=== PATIENT | female | born 1995 | race Caucasian/White ===

== ENCOUNTER 2024-03-29 06:46 | Emergency (ER) | payer OTHER, SELFPAY ==
[2024-03-29] VITALS (26 sets, daily range): BP systolic 102–117; BP diastolic 70–76; PULSE 64–96; TEMP 36.3–36.7; O2SAT 94–100; BMI 24.8
--- NOTE | 2024-03-29 07:11 | CT_ITS ---
The [address] [address] Patient Name: ALONDRA BEAVER MRN: [id number] date: 1995 Sex: F Assigned Patient Location: ER Current Patient Location: .[facility] Accession/Order Number: [id number] Exam Date: 03/29/2024 07:58 Report Date: 03/29/2024 08:37 At the request of: SANDRA BADILLO Procedure: CT head/brain wo con EXAM: CT head/brain wo con HISTORY: Dizziness. Patient did not hit head when she fell. COMPARISON: None. CT head without contrast CLINICAL: dizziness . TECHNIQUE: Contiguous transaxial images were obtained from skull base to vertex without administration of intravenous contrast. Dose reduction: mA and/or kV are were adjusted by automated exposure control software based upon patients height and weight. FINDINGS: There is no focal scalp soft tissue swelling or acute calvarial fracture. The visualized globes and orbits are grossly normal. Visualized paranasal sinuses are clear. Bilateral mastoid air cells are clear. The ventricles and sulci are normal and symmetric bilaterally. There is no intraparenchymal hemorrhage, extraaxial fluid collection, mass lesion, or acute large territory ischemia by noncontrast CT. CT/CT head/brain wo con IMPRESSION: 1. No acute intracranial abnormality. If the patient has a focal neurologic deficit or there is clinical suspicion for acute cerebrovascular accident, brain MRI would be recommended for further evaluation. Electronically authenticated by: ALANA VASQUEZ Date: 03/29/2024 08:37
--- NOTE | 2024-03-29 07:11 | ECG_ITS ---
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
[2024-03-29 07:32] LABS: Basophils Percent Auto 0.3 % (0.2-2.0); Eosinophils Absolute Auto 0.1 10^3/uL (0.0-0.7); Eosinophils Percent Auto 1.1 % (0.9-7.0); Hematocrit 42.5 % (36.0-48.0); Hemoglobin 14.6 g/dL (12.0-16.0); Immature Granulocytes Abs Auto 0.03 10^3/uL (0.00-0.03); Immature Granulocytes Pct Auto 0.3 % (0.0-0.5); Lymphocytes Absolute Auto 2.2 10^3/uL (1.2-3.8); Lymphocytes Percent Auto 23.3 % (20.5-60.0); Mean Corpuscular HGB Conc 34.4 g/dL (29.9-35.2); Mean Corpuscular Hemoglobin 30.5 pg (26.7-34.0); Mean Corpuscular Volume 88.7 fL (81.0-99.0); Mean Platelet Volume 10.1 fL (9.5-13.5); Monocytes Absolute Auto 0.5 10^3/uL (0.3-0.8); Monocytes Percent Auto 5.3 % (1.7-12.0); Neutrophils Absolute Auto 6.5 10^3/uL (1.4-6.5); Neutrophils Percent Auto 69.7 % (43.0-75.0); Platelet Count 294 10^3/uL (150-450); Red Blood Count 4.79 10^6/uL (4.20-5.40); White Blood Count 9.4 10^3/uL (4.0-11.0)
[2024-03-29] MEDS: DIAZEPAM 10 MG/2 ML SYRINGE 2 MG IV ×2 (07:32→08:40)
[2024-03-29 07:42] LABS: HCG Qualitative NEGATIVE (NEGATIVE); Internal Control Within Normal Limits
[2024-03-29 07:57] LABS: Alanine Aminotransferase 26 U/L (14-59); Albumin Globulin Ratio 1.1; Albumin Level 3.9 g/dL (3.4-5.0); Alkaline Phosphatase 72 U/L (46-116); Anion Gap 20.1; Aspartate Amino Transferase 26 U/L (15-37); BUN Creatinine Ratio 22.1; Bilirubin Total 0.7 mg/dL (0.2-1.0); Calcium 8.8 mg/dL (8.5-10.1); Carbon Dioxide 21.2 mmol/L (21.0-32.0); Chloride 102 mmol/L (98-107); Estimated GFR (African America >60 (>=60 mL/min/1.73m^2); Estimated GFR (Non-African Ame >60 (>=60 mL/min/1.73m^2); Globulin 3.5 g/dL; Glucose 172 mg/dL (74-106); Magnesium 1.9 mg/dL (1.8-2.4); Sodium 139 mmol/L (136-145); Total Protein 7.4 g/dL (6.4-8.2)
[2024-03-29] MEDS: MECLIZINE HCL 12.5 MG TABLET 25 MG PO (08:08)
--- NOTE | 2024-03-29 08:17 | ED_ITS ---
HPI HPI - General Adult General Chief complaint: Dizziness Stated complaint: dizziness vomitting Time Seen by Provider: 03/29/24 07:06 Source: patient Mode of arrival: walk-in Limitations: no limitations History of Present Illness HPI narrative: Patient presents to ED complaining of dizziness. She said she woke up about 5:00 and got out of bed went to the bathroom and when she was walking back from the bathroom she got severely dizzy. She tried to sit on the bed but fell because she said she felt so off balance and dizzy that it caused her to fall. She denies hitting her head or any pain from the fall. She said she has never had vertigo before but the room is spinning and she feels very off balance. She said it is difficult to have her eyes open because things are moving but she also feels super dizzy if her eyes are closed. She did have a lot of vomiting with the dizziness. She was given Zofran on arrival here. She denies but it has been about a month since her period. She denies any sinus pressure pain no fevers no headache no vision changes. She has never had anything like this before. No family history of vertigo. No chest pain or breath. Related Data Previous Rx's ?Medication ?Instructions ?Recorded diazepam 2 mg tablet (Valium) 2 mg PO BID PRN dizziness or 03/29/24 vertigo #14 tabs meclizine 25 mg tablet 25 mg PO BID PRN dizziness #20 tabs 03/29/24 ondansetron 4 mg disintegrating 4 mg PO DAILY PRN nausea and 03/29/24 tablet vomiting #15 tabs Allergies Allergy/AdvReac Type Severity Reaction Status Date / Time No Known Drug Allergies Allergy Verified 03/29/24 06:54 Opioid HPI Opioid Management Most Recent Opioid Data: No Data to Display Review of Systems ROS Status of ROS 10 or more systems reviewed and unremark able except as noted in history and below Exam Narrative Exam Narrative: Time Seen: [] Vital Signs: [Per nurse's notes.] General: [Alert] dizziness Skin: [Warm, dry, no rash.] Head: [Normocephalic, atraumatic.] Neck: [Supple, trachea midline.] Eye: [Pupils are equal, round and reactive to light, extraocular movements are intact, normal conjunctiva.] Ears, nose, mouth and throat: oral mucosa moist. TMs clear bilaterally Cardiovascular: [Regular rate and rhythm, no murmur.] Respiratory: [Lungs are clear to auscultation, respirations are non-labored, breath sounds are equal.] Chest wall: [No tenderness, no deformity.] Gastrointestinal: [Soft, nontender, non distended, normal bowel sounds.] MSK: 5 out of 5 muscle strength x 4 extremities no calf pain or edema Lymphatics: [No lymphadenopathy.] Psychiatric: [Cooperative, appropriate mood & affect.] Neurological: [Alert and oriented to person, place, time, and situation, no focal neurological deficit observed.] Constitutional Vital Signs, click to edit/add: Last Vital Signs Temp 97.3 F L 03/29/24 06:49 Pulse 77 03/29/24 10:30 Resp 16 03/29/24 10:30 BP 117/71 03/29/24 09:32 Pulse Ox 100 03/29/24 10:30 O2 Del Method Room Air 03/29/24 06:49 Course Vital Signs Vital signs: Vital Signs Temperature 97.3 F L 03/29/24 06:49 Pulse Rate 64 03/29/24 06:49 Respiratory Rate 14 03/29/24 06:49 Blood Pressure 102/70 03/29/24 06:49 Pulse Oximetry 100 03/29/24 06:49 Oxygen Delivery Method Room Air 03/29/24 06:49 Temperature 97.3 F L 03/29/24 06:49 Pulse Rate 77 03/29/24 10:30 Respiratory Rate 16 03/29/24 10:30 Blood Pressure 117/71 03/29/24 09:32 Pulse Oximetry 100 03/29/24 10:30 Oxygen Delivery Method Room Air 03/29/24 06:49 Medical Decision Making MDM Narrative Medical decision making narrative: Patient was given Zofran and was still having nausea and dizziness. She was also given meclizine. She was still very dizzy and could not move or open her eyes. She then was given 2 mg of Valium IV. She said that helped slightly at least get her to CAT scan but after CAT scan she still was very dizzy. I gave her 2 more milligrams of Valium IV and started some IV fluids. I was going to admit her because she was unable to even move her head or open her eyes but she fell asleep after the Valium and when she woke up she was feeling a lot better. She was able to sit to the edge of the bed and walk around the room slowly. She said she still felt a little bit off but much better and was able to actually move around and open her eyes. She got a little bit dizzy again after standing but is still much better than when she came in this morning. I will send her home with Valium meclizine and Zofran. She does have help at home with from her and will be able to rest. She prefers to try and go home. Return to ED if worsening symptoms otherwise follow-up with your family doctor Differential Diagnosis Differential Diagnosis: Vertigo, intracranial lesion, intracranial hemorrhage, electrolyte abnormal Lab Data Lab results reviewed: Yes I reviewed the patient's lab results Labs: Lab Results 03/29/24 Range/Units 07:05 WBC 9.4 (4.0-11.0) 10^3/uL RBC 4.79 (4.20-5.40) 10^6/uL Hgb 14.6 (12.0-16.0) g/dL Hct 42.5 (36.0-48.0) % MCV 88.7 (81.0-99.0) fL MCH 30.5 (26.7-34.0) pg MCHC 34.4 (29.9-35.2) g/dL RDW 12.0 (11.0-15.0) % Plt Count 294 (150-450) 10^3/uL MPV 10.1 (9.5-13.5) fL Neut % (Auto) 69.7 (43.0-75.0) % Lymph % (Auto) 23.3 (20.5-60.0) % Calhoun % (Auto) 5.3 (1.7-12.0) % Eos % (Auto) 1.1 (0.9-7.0) % Baso % (Auto) 0.3 (0.2-2.0) % Neut # (Auto) 6.5 (1.4-6.5) 10^3/uL Lymph # (Auto) 2.2 (1.2-3.8) 10^3/uL Calhoun # (Auto) 0.5 (0.3-0.8) 10^3/uL Eos # (Auto) 0.1 (0.0-0.7) 10^3/uL Baso # (Auto) 0.0 (0.0-0.1) 10^3/uL Abs Immat Gran (auto) 0.03 (0.00-0.03) 10^3/uL Imm/Tot Granulo (auto) 0.3 (0.0-0.5) % Sodium 139 (136-145) mmol/L Potassium 4.3 (3.5-5.1) mmol/L Chloride 102 (98-107) mmol/L Carbon Dioxide 21.2 (21.0-32.0) mmol/L Anion Gap 20.1 BUN 21.0 H (7.0-18.0) mg/dL Creatinine 0.95 (0.55-1.02) mg/dL Est GFR ( Amer) >60 (>=60 mL/min/1.73m^2) Est GFR (Non-Af Amer) >60 (>=60 mL/min/1.73m^2) BUN/Creatinine Ratio 22.1 Glucose 172 H (74-106) mg/dL Calcium 8.8 (8.5-10.1) mg/dL Magnesium 1.9 (1.8-2.4) mg/dL Total Bilirubin 0.7 (0.2-1.0) mg/dL AST 26 (15-37) U/L ALT 26 (14-59) U/L Alkaline Phosphatase 72 (46-116) U/L Total Protein 7.4 (6.4-8.2) g/dL Albumin 3.9 (3.4-5.0) g/dL Globulin 3.5 g/dL Albumin/Globulin Ratio 1.1 Serum HCG, Qual Negative (NEGATIVE) Imaging Data CT scan - head: Radiologist's impression: ITS Impressions Head CT 03/29/24 07:11 IMPRESSION: 1. No acute intracranial abnormality. If the patient has a focal neurologic deficit or there is clinical suspicion for acute cerebrovascular accident, brain MRI would be recommended for further evaluation. Electronically authenticated by: ALANA VASQUEZ Date: 03/29/2024 08:37 ECG Data Attestation: I personally reviewed and interpreted this ECG as follows: Interpretation: EKG INTERPRETATION Time: [] 751 Rate: [] 61 Rhythm: _ [] Normal sinus rhythm ST segments: _ [] No acute ST elevation or depression T waves: _ [] Ectopy: _ [] P wave/NH interval: _ [] QRS interval: _ [] QT interval: _ [] Comparison: _ [] Comparison EKG date: [] Performed by: [self] Discharge Plan Discharge Chief Complaint: Dizziness Clinical Impression: Benign paroxysmal positional vertigo Patient Disposition: Home, Self-Care Time of Disposition Decision: 10:53 Condition: Good Mode of Transportation: Private Vehicle Prescriptions / Home Meds: New diazepam [Valium] 2 mg tablet 2 mg PO BID PRN (Reason: dizziness or vertigo) Qty: 14 0RF ondansetron 4 mg tablet,disintegrating 4 mg PO DAILY PRN (Reason: nausea and vomiting) Qty: 15 0RF meclizine 25 mg tablet 25 mg PO BID PRN (Reason: dizziness) Qty: 20 0RF Print Language: Cymraes Instructions: Vertigo (ED) Referrals: Zita Alanis MD [Primary Care Provider] - 1 week
[2024-03-29 09:08] LABS: Potassium 4.3 mmol/L (3.5-5.1)
[2024-03-29] MEDS: 0.9 % SODIUM CHLORIDE 1,000 ML 1000 ML IV (09:10)
== END 2024-03-29 12:31 | disposition home or self-care (01) ==
PROVIDERS: Emergency Provider Emergency Medicine; PCP Family Medicine
DX: H81.10 Benign paroxysmal vertigo, unspecified ear (principal); R11.0 Nausea
CPT/HCPCS: 36415; 70450; 80053; 83735; 84703; 85025; 93005; 96361; 96374; 96376; 99285; J3360

== ENCOUNTER 2024-08-29 13:36 | Outpatient (OUT) | payer OTHER, SELFPAY ==
[2024-08-29 14:19] LABS: BOX Test Reference Lab UNITY; BOX Test Sent Out UNITY
[2024-08-29 15:14] LABS: Estimated Average Glucose 105 mg/dL; Glycohemoglobin A1C 5.3 % (4.5-6.2)
== END 2024-08-29 13:37 | disposition home or self-care (01) ==
LOC: LAB 13:39
PROVIDERS: PCP Family Medicine; Visit Provider Obstetrics & Gynecology
DX: Z34.90 Encounter for supervision of normal pregnancy, unspecified, unspecified trimester (principal); Z36.0 Encounter for antenatal screening for chromosomal anomalies
CPT/HCPCS: 36415; 83036

== ENCOUNTER 2024-09-28 16:15 | Outpatient (OUT) | payer OTHER, SELFPAY ==
--- OUTSIDE RECORDS SUMMARY | 2024-09-28 15:08 | XMS_ITS ---
Author Name Auto Generated Organization OH[facility] Care Team Providers Care Lead Furnace Operator Name Role Phone Zita Alanis Attending Unavailable Zita Alanis Primary Care Unavailable ATTILA BUNDY Attending Unavailable ROCIO VINES Attending Unavailable LUIS GALVAN Attending Unavailable ATTILA BUNDY Attending Unavailable PROBLEMS No Problem Records Found PROCEDURES No Procedure Records Found RESULTS US OB < 14 WEEKS EARLY Observed: 025 1:43 PM Status: F Source: [facility] EPIC Order Comment: US OB Patient's last menstrual period was 05/09/2024 (exact date). EXAM: US OB < 14 WEEKS EARLY HISTORY: Dating. COMPARISON: None available. TECHNIQUE: Two-dimensional transabdominal grayscale ultrasound imaging of the pelvis was performed. Transvaginal ultrasound was not performed. Color Doppler evaluation of the ovaries was also performed. FINDINGS: The uterus demonstrates a normal homogeneous echotexture. The cervical os is closed. The right ovary measures 3.3 x 2.0 x 2.9 cm and demonstrates a normal echotexture. There is normal color Doppler flow. The left ovary measures 4.2 x 2.4 x 3.0 cm and demonstrates a normal echotexture. There is normal color Doppler flow. No fluid is present within the cul-de-sac. There is a single, live intrauterine gestation identified with a heart rate of 173 beats per minute and a crown-rump length measurement of 4.6 cm, correlating to a gestational age of 11 weeks 3 days (+/- 7 days). There is no subchorionic hemorrhage visualized. A yolk sac is not visualized. IMPRESSION: 1. Single, live intrauterine gestation 13 weeks, 2 days by LMP. Today's ultrasound measurements correlate with a gestational age of 11 weeks 3 days (+/- 7 days). VALENTIN by today's ultrasound is 02/26/2025. 2. Normal color Doppler evaluation of the bilateral ovaries. Electronically Signed:Electronically signed by LEONIDAS NICOLE II, MD, PHD at 11-Aug-2024 08:40:37 AM [facility] OUTSIDE RECORDS Observed: 03/29/2024 10:45 AM Status: F Source: [facility] [id number]#1.00OTGTIFF OUTSIDE RECORDS Observed: 03/29/2024 10:41 AM Status: F Source: [facility] [id number]#1.00OTGTIFF CMP STANDARD Collected: 8:16 AM Status: F Source: [facility] TYPE CODE TESTS RESULT OUT OF RANGE REFERENCE UNITS LAB 5152207(LOINC) A/G Ratio 1.4 1.4-2.6 LAB 5142347(LOINC) Anion Gap 10.8 5.0-19.0 mmol/L LAB 9617035(LOINC) BUN/Creat Ratio 19.7 High 4.6-16.2 LAB 5571103(LOINC) Globulin 3.1 1.5-4.3 gm/dL LAB 4887634(LOINC) Osmolality 267 Unknown mOsm/L LAB 9850026(LOINC) eGFR AA >60 Unknown mL/min/1. 73m2 LAB 9847156([facility]) Albumin Level 4.4 3.5-5.0 gm/ dL LAB 8128550([facility]) Alk Phos 67 32-91 IU/L LAB 7896115([facility]) ALT/SGPT 19.0 14.0-54.0 IU/L LAB 8600644([facility]) AST/SGOT 21 15-41 IU/L LAB 3605547([facility]) Bili Total 0.7 0.3-1.2 mg/dL LAB 3145129([facility]) BUN 17 8-26 mg/dL LAB 2256943([facility]) Calcium Level 8.9 8.9-10.3 mg /dL LAB 6824671([facility]) CO2 26 21-32 mmol/L LAB 1245270([facility]) Chloride Level 100 Low 101-111 mm ol/L LAB 7757765([facility]) Creatinine Level 0.86 0.60-1.30 mg/dL LAB 6150399([facility]) Glucose Level 90.0 74.0-118.0 mg/dL LAB 2618210([facility]) Potassium Level 3.8 3.6-5.1 mmol/L LAB 6586728([facility]) Protein Total 7.5 6.5-8.1 gm/ dL LAB 0463847([facility]) Sodium Level 133.0 Low 136.0-144.0 mmol/L LAB 6930667([facility]) eGFR Non AA >60 Unknown mL/mi n/1. 73m2 Performed By: #### [id number] 5, [id number], 1304922, 4573150, 8602592, 2671217, 3981804 #### [facility] (DEFAULT) [address] [place], [place] [address] LIPID PANEL STANDARD Collected: 02/03/2024 8:16 AM S tatus: F Source: [facility] TYPE CODE TESTS RESULT OUT OF RANGE REFERENCE UNITS LAB 0275467([facility]) LDL 144 High 1-100 mg/dL LAB 87862322([facility]) VLDL. 6 5-40 mg/dL LAB 7607831([facility]) Chol/HDL Ratio 3.3 0.0-4.5 LAB 6997792([facility]) HDL 64 40-71 mg/dL LAB 4031123(LOINC) Trig 28.0 0.0-150.0 mg/dL LAB 9667190(LOINC) Cholesterol 214.0 High 66.0-200.0 mg /dL Performed By: #### [id number] 5, [id number], 6893940, 1175638, 3564192, 1449292, 6022553 #### [facility] (DEFAULT) [address] [place] [address] GGT Collected: 4 8:16 AM Status: F Source: [facility] TYPE CODE TESTS RESULT OUT OF RANGE REFERENCE UNITS LAB 5195387(LOINC) GGT 20.0 7.0-50.0 IU/L Performed By: #### [id number] 5, [id number], 8318503, 8807199, 1237160, 4553621, 4079514 #### [facility] (DEFAULT) [address] [place] [address] LDH Collected: 4 8:16 AM Status: F Source: [facility] TYPE CODE TESTS RESULT OUT OF RANGE REFERENCE UNITS LAB 0277578(LOINC) LDH 126.0 98.0-192.0 IU/L Performed By: #### [id number] 5, [id number], 2465520, 9845752, 3831043, 4747840, 4115827 #### [facility] (DEFAULT) [address] [place] [address] PHOS Collected: 4 8:16 AM Status: F Source: [facility] TYPE CODE TESTS RESULT OUT OF RANGE REFERENCE UNITS LAB 3059107(LOINC) Phos 2.9 2.5-4.6 mg/dL Performed By: #### [id number] 5, [id number], 7763930, 0479957, 2671693, 8853515, 1797088 #### [facility] (DEFAULT) [address] [place] [address] URIC ACID Collected: 4 8:16 AM Status: F Source: [facility] TYPE CODE TESTS RESULT OUT OF RANGE REFERENCE UNITS LAB 9639857(LOINC) Uric Acid 4.0 2.6-8.0 mg/dL Performed By: #### [id number] 5, 1194235140, 4956282, 7182949, 3649091, 3608877, 0718822 #### [facility] (DEFAULT) [address] [place] [address] IRON LEVEL Collected: 4 8:16 AM Status: F Source: [facility] TYPE CODE TESTS RESULT OUT OF RANGE REFERENCE UNITS LAB 6728713(LOINC) Iron Level 93.0 28.0-170.0 mcg /dL Performed By: #### [id number] 5, 6110895077, 1548060, 7744323, 8204947, 4374465, 1511364 #### [facility] (DEFAULT) [address] [place] [address] CONSENT FORMS Observed: 01/24/2024 8:00 AM Status: P Source: [facility] [id number]#1.00OTGTIFF ALLERGIES DATE TYPE / CODE NAME / CODE REACTION SEVERITY SOURCE Drug/235582986(SNOMED CT) No known allergies [facility] ENCOUNTERS ADMIT/DISCHARGE ACCOUNT NUMBER ADMITTING ENCOUNTER CLASS LOCATION SOURCE 09/28/2024/ 5 [id number] Ambulatory Building:[facility] 08/29/2024/ 5 [id number] Ambulatory Building:[facility] 08/10/2024/ 5 [id number] Ambulatory Building:[facility] 08/10/2024/ 5 [id number] Ambulatory Building:[facility] 07/11/2024/ 5 [id number] Ambulatory Building:N[facility] 05/16/2024/ 5 [id number] Ambulatory Building:[facility] 03/30/2024/ 4 [id number] [facility] Room 2 [facility] 02/08/2024/ 4 [id number] Ambulatory Building:[facility] EPIC 01/24/2024/ 4 [id number] [facility] PAYERS ENCOUNTER GUARANTOR PAYER SUBSCRIBER SOURCE 09/28/2024 ALONDRA JOEB: [address] [address]Rri: (HP) Primary Insurance:MEDICAL MUTUALPolicy Number: [id number] e Date:2023-11-08 [facility]: [id number] [address] [address] [facility] EPIC 08/29/2024 ALONDRA HEATHB: [address] [address]Mxm: (HP) Primary Insurance:MEDICAL MUTUALPolicy Number: [id number] e Date:2023-11-08 ALONDRA HEATHB: [id number] [address] [address] [facility] EPIC 08/10/2024 ALONDRA HEATHB: [address] [address]Wxo: (HP) Primary Insurance:MEDICAL MUTUALPolicy Number: [id number] e Date:2023-11-08 ALONDRA HEATHB: [id number] [address] [address] [facility] EPIC 08/10/2024 ALONDRA SARANYADOB: [address] [address]Zip: (HP) Primary Insurance:MEDICAL MUTUALPolicy Number: [id number] e Date:2023-11-08 ALONDRABrooklyn BEAVERB: [id number] [address] [address] [facility] EPIC 07/11/2024 ALONDRA JOEB: [address] [address]Rat: (HP) Primary Insurance:MEDICAL MUTUALPolicy Number: [id number] e Date:2023-11-08 [facility] [id number] [address] [address] [facility] EPIC 05/16/2024 [facility]: [address] [address]Lai: () Primary Insurance:MEDICAL MUTUALPolicy Number: [id number] e Date:2023-11-08 AL[facility]DRA [facility]AL[facility]ITALB: [id number] [facility] [address], [place] [address] [facility] EPIC 03/30/2024 [facility]: [address] [address]Jjd: () Primary Insurance:MEDICAL MUTUALPolicy Number: [id number] e Date:6054-17-11Khvl Name:CommercialPO BOX [address], [place] [address]ZQ: [facility]: [id number] [facility] [address], [place] [address]Unf: () [facility] 02/08/2024 [facility]: [address] [address]Wka: () Primary Insurance:CIGNAPolic y Number: [id number] e Date:4454-54-43[id number] [address]KL: [facility]: [id number] [address] [address] [facility] EPIC
--- OUTSIDE RECORDS SUMMARY | 2024-09-28 15:20 | XMS_ITS | Encounter Summary ---
Author Organization [facility] Address [address] [place] [address] Care Team Providers Care Bit Sander Name Role Phone Unallocated, Noms Provider Primary Care Located within [facility] Reason for Visit * Reason Comments Routine Visit Encounter Details Date Type Department Care Team (Late st Contact Info) Description 09/28/2024 3:20 PM EDT Routine [facility] [address] [place], [id number] Nadine Gurrola PA [address] [place], [place] [address] Screening, , for anatomic survey; STD exposure; Second trimester ; 18 weeks gestation of Social History Tobacco Use Types Packs/Day Years Used Date Smoking Tobacco: Never Smokeless Tobacco: Never Alcohol Use Standard Drinks/Week Comments Not Currently 0 (1 standard drink = 0.6 oz pur e alcohol) caffeine intake: rare AUDIT-C Answer Date Recorded Q1: How often do you have a drink containing alc ohol? Monthly or less 02/08/2024 Q2: How many drinks containi ng alcohol do you have on a typical day when you are drinking? 1 or 2 02/08/2024 Q3: How often do you have si x or more drinks on one occasion? Less than monthly 02/08/2024 PHQ-2 Answer Date Recorded Patient Health Questionnaire-2 Score 0 05/16/2024 Estimated Date of Delivery Comme nts Yes 02/26/2025 Based on Ultraso und, FHR- 173 Sex and Gender Information Value Date Recorded Sex Assigned at Not on file Legal Sex Female 11:24 AM EST Gender Identity Not on file Sexual Orientation Not on file Occupation Industry Job Start Date Job End Date Not on file Not on file Not on file Not on file documented as of this encounter Last Filed Vital Signs Vital Sign Reading Time Taken Comments Blood Pressure 126/80 09/28/2024 3:35 PM EDT Pulse - - Temperature - - Respiratory Rate - - Oxygen Saturation - - Inhaled Oxygen Concentration - - Weight 67.2 kg (148 lb 4 oz) 09/28/2024 3:35 PM EDT Height - - Body Mass Index 26.26 08/10/2024 2:55 PM EDT documented in this encounter Plan of Treatment Upcoming Encounters Date Type Department Care Team (Late st Contact Info) Description 10/26/2024 11:00 AM EDT Ancillary Procedure [facility] [address] [facility] [address] 10/26/2024 11:50 AM EDT Routine [facility] OB [address] [place] [address] José Lozano, [address] [place] [address] Scheduled Orders Name Type Priority Associated Diagnoses Order Schedule SURESWAB(R) ADVANCED VAGINITIS PLUS, TMA Pathology and Cytology Routine STD exposure Ordered: 09/28/2024 CHLAMYDIA TRACHOMATIS (GENITO/STI) Lab Routine STD exposure Ordered: 09/28/2024 Neisseria gonorrhea DNA probe, direct Lab Routine STD exposure Ordered: 09/28/2024 OB 14+ weeks anatomy scan Imaging Routine Screening, , for anatomic survey Expected: 09/28/2024, Expires: 12/29/2024 Alpha fetoprotein, maternal Lab Routine Second trimester Expected: 09/28/2024 (Approximate), Expires: 11/28/2024 documented as of this encounter Goals Goal Patient Goal Type Associated Problems Recent Progress Patient-Stated? Author Reminders Care Plan OB Reminders No Jennifer Ayala, RN documented as of this encounter Procedures Procedure Name Priority Date/Time Associated Diagnosis Comments POCT URINALYSIS DIPSTICK Routine 09/28/2024 3:41 PM EDT 18 weeks gestation of documented in this encounter Results * POCT urinalysis dipstick manually resulted (09/28/2024 3:41 PM EDT) Color, UA Yellow Clarity, UA Clear Glucose, UA Negative Negative - 2000(110) ++++ mg/dL Bilirubin, UA Negative Negative - 4(70) +++ mg/dL Ketones, UA Negative Negative - 160(16) ++++ mg/dL Spec Grav, UA 1.015 1 - 1.03 Blood, UA Negative Negative - 50 Mark/mcL pH, UA 6.0 5 - 9 Protein, UA Negative Negative - 2000(20) ++++ mg/dL Urobilinogen, UA 0.2 0.2 - 12 mg/dL Leukocytes, UA Negative Negative - 500+++ Mahsa/mcL Nitrite, UA Negative Negative - Positive Urine 09/28/2024 3:41 PM EDT Nadine DE JESUS POINT OF CARE TEST ENTER/EDIT OR DERABLES Final Result documented in this encounter Visit Diagnoses Diagnosis Screening, , for anatomic survey Encounter for anatomic survey STD exposure Second trimester state, incidental 18 weeks gestation of documented in this encounter Additional Health Concerns Active Problems Noted Date Diagnosed Date OB Reminders 07/11/2024 documented as of this encounter Care Teams Bit Sander Relationship Specialty Start Date End Date Unallocated, Noms Provider[place] [address] PCP - General Family Medicine 06/23/23 documented as of this encounter
--- OUTSIDE RECORDS SUMMARY | 2024-09-28 16:17 | XMS_ITS | Encounter Summary ---
Author Organization [facility] Address [address] [place] [address] Care Team Providers Care Store Loss Prevention Manager Name Role Phone Unallocated, Noms Provider Primary Care [facility] Encounter Details Date Type Department Care Team (Latest Contact Info) Description 09/28/2024 Travel Social History Tobacco Use Types Packs/Day Years [...] on file documented as of this encounter Plan of Treatment Upcoming Encounters Date Type Department Care Team ( Contact Info) Description 10/26/2024 11:00 AM EDT Ancillary Procedure [facility] OB [address] [place] [address] [place] [address] 10/26/2024 11:50 AM EDT Routine [facility] OB [address] [facility] [address] [address] José Lozano, [address] [place] [address] documented as of this encounter Goals Goal Patient Goal Type Associated Problems Recent Progress Patient-Stated? Author Reminders Care Plan OB Reminders Jennifer Bond, RN documented as of this encounter Visit Diagnoses Not on filedocumented in this encounter Additional Health Concerns Active Problems Noted Date Diagnosed Date OB Reminders 07/11/2024 documented as of this encounter Care Teams Store Loss Prevention Manager Relationship Specialty Start Date End Date Unallocated, Noms Provider, [address] [place] [address] PCP - General Family Medicine 06/23/23 documented as of this encounter
--- OUTSIDE RECORDS SUMMARY | 2024-09-28 16:18 | XMS_ITS | Clinical Summary ---
Author Organization [facility] Address [address] [place] [address] Care Team Providers Care Concert Or Lecture Hall Manager Name Role Phone Unallocated, Nomapurva Provider Primary Care Provi ulysses Allergies No known active allergies Medications Vit-Fe Fumarate-FA ( PO) Take by mouth Active Encounters Date Type Department Care Team Description 09/28/2024 3:20 PM EDT Routine [facility] [address] [place] [address] Nadine Gurrola PA Screening, , for anatomic survey; STD exposure; Second trimester ; 18 weeks gestation of 09/28/2024 Bamboo flowsheet [facility] [address] [place] [address] Nadine Gurrola PA 09/28/2024 Travel 09/12/2024 Abstract [facility] [address] [place] [address] José Lozano DO 08/29/2024 2:10 PM EDT Routine [facility] [address] [place] [address] José Lozano DO Second trimester ; 14 weeks gestation of 08/29/2024 Clinisync Result Encounter [facility] External Department Unsolicited José Lozano DO 08/29/2024 Bamboo flowsheet [facility] [address] [place] [address] BlakeJosé, DO 08/29/2024 Travel 08/21/2024 Telephone [facility] [address] [place] [address] BlakeGiy, DO 08/10/2024 2:00 PM EDT Initial [facility] [address] [place] [address] [place]: 11w3d 08/10/2024 1:30 PM EDT Ancillary Procedure [facility] [address] [place] [address] Missed menses 08/10/2024 Travel 07/11/2024 9:30 AM EST Initial [facility] [address] [facility] [address] [place] [address] [place]: 7w1d 07/11/2024 Telephone [facility] [address] [facility] [address] [place] [address] Madeleine Mitchell MD 07/11/2024 Travel from Last 3 Months Family History Medical History Relation Name Comments Hypothyroidism Maternal Grandfather Kwan Swiney Thyroid disease Maternal Grandfather Kwan Swiney Breast cancer Maternal Grandmother Maricarmen Swiney Hypothyroidism Mother Esmer Walp Polycystic ovary syndrome Mother Esmer Walp Thyroid disease Mother Esmer Walp Cancer Paternal Grandfather Skyler Walp Colon cancer Paternal Grandfather Skyler Walp Breast cancer Paternal Grandmother Madelon Walp Lung cancer Paternal Grandmother Madelon Walp Polycystic ovary syndrome Sister Relation Name Status Comments Father Alive Maternal Grandfather Kwan Swiney Maternal Grandmother Maricarmen Swiney Mother Esmer Walp Alive Paternal Grandfather Skyler Walp Paternal Grandmother Madelon Walp Sister Social History Tobacco Use Types Packs/Day Years Used Date Smoking Tobacco: Never Smokeless Tobacco: Never Tobacco Cessation:Counseling Given: Not Answered Alcohol Use Standard Drinks/Week Comments Not Currently [...] file Not on file Not on file Last Filed Vital Signs Vital Sign Reading Time Taken Comments Blood Pressure 126/80 09/28/2024 3:35 PM EDT Pulse 77 06/23/2023 9:25 AM EST Temperature 36.4 C (97.5 F) 06/23/2023 9:25 AM EST Respiratory Rate 18 05/15/2023 11:28 AM EST Oxygen Saturation 99% 06/23/2023 9:25 AM EST Inhaled Oxygen Concentration - - Weight 67.2 kg (148 lb 4 oz) 09/28/2024 3:35 PM EDT Height 160 cm (5' 3 ) 08/10/2024 2:55 PM EDT Body Mass Index 26.26 08/10/2024 2:55 PM EDT Plan of Treatment Upcoming Encounters Date Type Department Care Team (Late st Contact Info) Description 10/26/2024 11:00 AM EDT Ancillary Procedure [facility] [address] [facility] [place] [phone] 10/26/2024 11:50 AM EDT Routine [facility] [address] [place] [phone] José Lozano, [address] [place], [place] [phone] Health Maintenance Due Date Last Done Comments Influenza Vaccine (Season Ended) 2025 Goals Goal Patient Goal Type Associated Problems Recent Progress Patient-Stated? Author Reminders Care Plan OB Reminders No Jennifer Ayala, sight effects specialist Procedure Name Priority Date/Time Associated Diagnosis Comments POCT URINALYSIS DIPSTICK Routine 09/28/2024 3:41 PM EDT 18 weeks gestation of MLR HEMOGLOBIN A1C Routine 08/29/2024 3: 00 PM EDT POCT URINALYSIS DIPSTICK Routine 08/29/2024 2:14 PM EDT Second trimester BOX TEST Routine 08/29/2024 1:49 PM EDT POCT , URINE Routine 08/10/2024 3:03 PM EDT with uncertain dates, antepartum POCT URINALYSIS DIPSTICK Routine 08/10/2024 3:03 PM EDT with uncertain dates, antepartum US OB < 14 WEEKS EARLY Routine 08/10/2024 2:16 PM EDT Missed menses URINE CULTURE CLEAN CATCH REFLEX Routine 07/14/2024 7:49 AM EST HIV-1/HIV-2 QUAL RNA REFLEX Routine 07/14/2024 7:49 AM EST UR MICROSCOPIC REFLEX Routine 07/14/2024 7:49 AM EST DRUG SCREEN 17 W/CONF, UR Routine 07/14/2024 7:49 AM EST Encounter for drug screening HEPATITIS C ANTIBODY Routine 07/14/2024 7:49 AM EST Encounter for supervision of normal first in first trimester CBC (INCLUDES DIFF/PLT) Routine 07/14/2024 7:49 AM EST Encounter for supervision of normal first in first trimester HIV-1 AND HIV-2 ANTIBODIES Routine 07/14/2024 7:49 AM EST Encounter for supervision of normal first in first trimester BLOOD TYPE AND SCREEN GEL Routine 07/14/2024 7:49 AM EST Encounter for supervision of normal first in first trimester HEPATITIS B SURFACE ANTIGEN W/REFL CONFIRM Routine 07/14/2024 7:49 AM EST Encounter for supervision of normal first in first trimester RUBELLA AB (IGG), IMMUNE STATUS Routine 07/14/2024 7:49 AM EST Encounter for supervision of normal first in first trimester RPR (DX) W/REFL TITER AND CONFIRMATORY TESTING Routine 07/14/2024 7:49 AM EST Encounter for supervision of normal first in first trimester URINALYSIS, COMPLETE Routine 07/14/2024 7:49 AM EST Encounter for supervision of normal first in first trimester CULTURE, URINE, ROUTINE Routine 07/14/2024 7:49 AM EST Encounter for supervision of normal first in first trimester from Last 3 Months Results * POCT urinalysis dipstick manually resulted (09/28/2024 3:41 PM EDT) Only the most recent of3 resultswithin the time period is included. Color, UA Yellow Clarity, UA Clear Glucose, [...] CARE TEST ENTER/EDIT OR DERABLES Final Result * MLR HEMOGLOBIN A1C (08/29/2024 3:00 PM EDT) Pathologist [facility] GLYCOHEMOGLOBIN A1C 5.3 4.5 - 6.2 % [facility] Comment: ADA RECOMMENDED LIMIT 4.0 - 6.0 ADA THERAPEUTIC TARGET < 7.0 ACTION SUGGESTED > 7.0 ESTIMATED AVERAGE GLUCOSE 105 mg/dL [facility] 08/29/2024 3:00 PM EDT 08/29/2024 3:02 PM EDT Narrative [facility] - 08/29/2024 3:16 PM EDT José Blake DO CLINISYNC Final Result Performing Organization Address City/[facility]/ZIP Co de Phone Number [facility] * BOX TEST (08/29/2024 1:49 PM EDT) [facility] BOX TEST SENT OUT [facility] BOX[facility] BOX2 08-29-24 [facility] 08/29/2024 1:49 PM EDT 08/29/2024 1:57 PM EDT Narrative [facility] - 08/29/2024 2:19 PM EDT BURNS BOX José Blake DO LAB BLOOD ORDERABLES Final Resul t Performing Organization Address [facility]/ZIP Co de Phone Number [facility] * (ABNORMAL) POCT , urine manually resulted (08/10/2024 3:03 PM EDT) Pathologist [facility] Preg Test, Ur Positive Negative Urine 08/10/2024 3:03 PM EDT us José Blake DO POINT OF CARE TEST ENTER/EDIT OR DERABLES Final Result * US OB less than 14 weeks early (08/10/2024 2:16 PM EDT) Anatomical Region Laterality Modality Body Ultrasound 08/11/2024 8:42 AM EDT Narrative 08/11/2024 8:42 AM EDT EXAM: US OB < 14 WEEKS EARLY [...] II, MD, PHD at 11-Aug-2024 08:40:37 AM [facility] [place] Procedure Note Leonidas Nicole MD - 08/11/2024 EXAM: US OB < 14 WEEKS EARLY HISTORY: Dating. COMPARISON: None available. TECHNIQUE: Two-dimensional transabdominal grayscale ultrasound imaging ofthe pelvis was performed. Transvaginal ultrasound was not performed. ColorDoppler evaluation of the ovaries was also performed. FINDINGS: The uterus demonstrates a normal homogeneous echotexture. The cervical osis closed. The right ovary measures 3.3 x 2.0 x 2.9 cm and demonstrates a normalechotexture. There is normal color Doppler flow. The left ovary measures 4.2 x 2.4 x 3.0 cm and demonstrates a normalechotexture. There is normal color Doppler flow. No fluid is present within the cul-de-sac. There is a single, live intrauterine gestation identified with a fetalheart rate of 173 beats per minute and a crown-rump length measurement of4.6 cm, correlating to a gestational age of 11 weeks 3 days (+/- 7 days).There is no subchorionic hemorrhage visualized. A yolk sac is notvisualized. IMPRESSION: 1. Single, live intrauterine gestation 13 weeks, 2 days by LMP. Today'sultrasound measurements correlate with a gestational age of 11 weeks 3days (+/- 7 days). VALENTIN by today's ultrasound is 02/26/2025. 2. Normal color Doppler evaluation of the bilateral ovaries. Electronically Signed:Electronically signed by LEONIDAS NICOLE II, MD, PHDat 11-Aug-2024 08:40:37 AM [facility] us José Blake DO IMG OB US PROCEDURES Final Resul t * DRUG SCREEN 17 W/CONF, UR (07/14/2024 7:49 AM EST) CREATININE 134 mg/dL [facility] Comment:REFERENCE RANGE: Ref Range>=20 ETHANOL BIOMARKERS IA Negative CUTOFF:5 00 ng/mL [facility] AMPHETAMINES IA Negative CUTOFF:3 00 ng/mL [facility] BARBITURATES IA Negative CUTOFF:2 00 ng/mL [facility] BENZODIAZEPINES IA Negative CUTOFF:5 0 ng/mL [facility] COCAINE METABOLITE IA Negative CUTOFF:1 50 ng/mL [facility] PHENCYCLIDINE IA Negative CUTOFF:2 5 ng/mL [facility] CANNABINOIDS IA Negative CUTOFF:2 0 ng/mL [facility] 6-ACETYLMORPHINE IA Negative CUTOFF:1 0 ng/mL [facility] OPIATE CLASS IA Negative CUTOFF:1 00 ng/mL [facility] OXYCODONE CLASS IA Negative CUTOFF:1 00 ng/mL [facility] METHADONE IA Negative CUTOFF:1 00 ng/mL [facility] FENTANYL IA Negative CUTOFF:2 .0 ng/mL [facility] BUPRENORPHINE IA Negative CUTOFF:5 .0 ng/mL [facility] TRAMADOL IA Negative CUTOFF:2 00 ng/mL [facility] PROPOXYPHENE IA Negative CUTOFF:3 00 ng/mL [facility] TAPENTADOL IA Negative CUTOFF:2 00 ng/mL [facility] NICOTINE METABOLITE Negative [facility] COTININE Not Detected ng/mL [facility] 07/14/2024 7:49 AM EST 07/14/2024 Narrative [facility] - 07/20/2024 6:06 AM EDT Performed at: 01 - [employer] [address] [place] [id number] Wheel Alignment Mechanic: Xiomara Astorga [facility], Phone: [phone] Specimen Comment: [employer], [employer] FLEX or MAT drug testing: Specimen Comment: -Technical component - Data analysis performed at Specimen Comment: [address] [facility], [place] [address]. Madeleine Mitchell MD LAB BLOOD ORDERABLES Final Res ult Performing Organization Address City/[facility]/ZIP Co de Phone Number [facility] * Urine Culture Clean Catch Reflex (07/14/2024 7:49 AM EST) Ur Cult 1 No growth [facility] 07/14/2024 7:49 AM EST 07/14/2024 Narrative [facility] - 07/20/2024 6:06 AM EDT Performed at: - [facility] [id number] Wheel Alignment Mechanic: Colten Cole PhD, Phone: [phone] Madeleine Mitchell MD LAB URINE ORDERABLES Final Res ult Performing Organization Address [facility]/ZIP Co de Phone Number [facility] * Ur Microscopic Reflex (07/14/2024 7:49 AM EST) WBC Ur 0-5 0 - 5 /hpf [facility] RBC Ur None seen 0 - 2 /hpf [facility] Epithelial Cells (non renal) Ur 0-10 0 - 10 /hpf [facility] Casts Ur None seen None seen /lpf [facility] Bacteria Ur Few None seen/Few [facility] 07/14/2024 7:49 AM EST 07/14/2024 Narrative [facility] - 07/20/2024 6:06 AM EDT Performed at: - [address] [id number] Wheel Alignment Mechanic: Colten Cole PhD, Phone: [phone] us Madeleine Mitchell MD LAB URINE ORDERABLES Final Res ult Performing Organization Address [facility] Co de Phone Number [facility] * HIV-1/HIV-2 Qual RNA Reflex (07/14/2024 7:49 AM EST) HIV-1 RNA Non Reactive Non Reactive [facility] HIV-2 RNA Non Reactive Non Reactive [facility] Final Interpretation HIV Negative [facility] Comment: HIV antibodies were NOT confirmed and HIV-1 and HIV-2 RNA was NOT detected. No laboratory evidence of HIV Infection. Possible biologic false positive. This HIV order code IS NOT the full HIV screening and diagnosis panel. This panel should only be used by clients performing the initial HIV screening test and submitting positive samples to [facility] for completion of the HIV testing algorithm. For the full HIV screening and diagnosis testing algorithm, use order code [id number]. 07/14/2024 7:49 AM EST 07/14/2024 Narrative [facility] - 07/20/2024 6:06 AM EDT Performed at: 03 - [address] [id number] Wheel Alignment Mechanic: Porfirio Mccarthy MD, Phone: [phone] Performed at: 02 - [address] [id number] Wheel Alignment Mechanic: Colten Cole PhD, Phone: [phone] us Madeleine Mitchell MD LAB BLOOD ORDERABLES Final Res ult Performing Organization Address [facility] de Phone Number [facility] * Hepatitis C antibody (07/14/2024 7:49 AM EST) Hep C Virus Ab Non Reactive Non Reactive [facility] Comment: HCV antibody alone does not differentiate between previously resolved infection and active infection. Equivocal and Reactive HCV antibody results should be followed up with an HCV RNA test to support the diagnosis of active HCV infection. Blood Venous blood specimen / Unknown 07/14/2024 7:49 AM EST 07/14/2024 Narrative [facility] - 07/20/2024 6:06 AM EDT Performed at: - [facility] [id number] Wheel Alignment Mechanic: Colten Cole PhD, Phone: [phone] Specimen Comment: [employer], [employer] FLEX or MAT drug testing: Specimen Comment: -Technical component - Data analysis performed at Specimen Comment: [address] [facility], [place] [address]. us Madeleine Mitchell MD LAB BLOOD ORDERABLES Final Res ult Performing Organization Address City/[facility] Co de Phone Number [facility] * (ABNORMAL) Rubella antibody, IgG (07/14/2024 7:49 AM EST) Rubella IgG Abs <0.90(L) Immune >0.99 index [facility] Comment: Non-immune <0.90 Equivocal 0.90 - 0.99 Immune >0.99 Blood Venous blood specimen / Unknown 07/14/2024 7:49 AM EST 07/14/2024 Narrative [facility] - 07/20/2024 6:06 AM EDT Performed at: - [facility] [id number] Wheel Alignment Mechanic: Colten Cole PhD, Phone: [phone] Specimen Comment: [employer], [employer] FLEX or MAT drug testing: Specimen Comment: -Technical component - Data analysis performed at Specimen Comment: [address] [place] [address]. us Madeleine Mitchell MD LAB BLOOD ORDERABLES Final Res ult Performing Organization Address [facility] Co de Phone Number [facility] * RPR (07/14/2024 7:49 AM EST) RPR Non Reactive Non Reactive [facility] Blood Venous blood specimen / Unknown 07/14/2024 7:49 AM EST 07/14/2024 Narrative [facility] - 07/20/2024 6:06 AM EDT Performed at: - [facility] [id number] Wheel Alignment Mechanic: Colten Cole PhD, Phone: [phone] Specimen Comment: [employer]Assure, T[employer]Assure FLEX or MAT drug testing: Specimen Comment: -Technical component - Data analysis performed at Specimen Comment: [address] [place] [address]. Madeleine Mitchell MD LAB BLOOD ORDERABLES Final Res ult Performing Organization Address [facility]/ZIP Co de Phone Number [facility] * HIV-1 and HIV-2 antibodies (07/14/2024 7:49 AM EST) HIV-1 Ab Non Reactive Non Reactive [facility] HIV-2 Ab Non Reactive Non Reactive [facility] HIV 1/2 Interp Negative [facility] Comment:See RNA Reflex. Blood Venous blood specimen / Unknown 07/14/2024 7:49 AM EST 07/14/2024 Narrative [facility] - 07/20/2024 6:06 AM EDT Performed at: 02 - [address] [id number] Wheel Alignment Mechanic: Colten Cole PhD, Phone: [phone] Specimen Comment: [employer], [employer] FLEX or MAT drug testing: Specimen Comment: -Technical component - Data analysis performed at Specimen Comment: [address] [place] [address]. Madeleine Mitchell MD LAB BLOOD ORDERABLES Final Res ult Performing Organization Address [facility] Co de Phone Number [facility] * Hepatitis B surface antigen (07/14/2024 7:49 AM EST) Pathologist [facility] Hep B Surf Ag Scr Negative Negative [facility] Blood Venous blood specimen / Unknown 07/14/2024 7:49 AM EST 07/14/2024 Narrative [facility] - 07/20/2024 6:06 AM EDT Performed at: 02 - [address] [id number] Wheel Alignment Mechanic: Colten Cole PhD, Phone: [phone] Specimen Comment: ToxAssure, T[employer]ure FLEX or MAT drug testing: Specimen Comment: -Technical component - Data analysis performed at Specimen Comment: [address] [facility], [place] [address]. Madeleine Mitchell MD LAB BLOOD ORDERABLES Final Res ult Performing Organization Address [facility] Co de Phone Number [facility] * Urinalysis with microscopic (07/14/2024 7:49 AM EST) Specific [place] Urine 1.022 1.005 - 1.030 [facility] pH Urine 7.0 5.0 - 7.5 [facility] Color Urine Yellow Yellow [facility] Appearance Urine Clear Clear [facility] WBC Esterase Urine Negative Negative [facility] Protein Urine Negative Negative/Tra ce [facility] Glucose Urine Negative Negative [facility] Ketones Urine Negative Negative [facility] Occult Blood Urine Negative Negative [facility] Bilirubin Urine Negative Negative [facility] Urobilinogen,Se mi-Qn Urine 0.2 0.2 - 1.0 mg/dL [facility] Nitrite Urine Negative Negative [facility] Ur Microscopic Comment [facility] Comment:Microscopic follows if indicated. Micro Exam See below: [facility] Comment:Microscopic was shaneka cated and was performed. Urine Urine specimen obtained by clean catch procedure / Unknown 07/14/2024 7:49 AM EST 07/14/2024 Narrative [facility] - 07/20/2024 6:06 AM EDT Performed at: 02 - [address] [id number] Wheel Alignment Mechanic: Colten Cole PhD, Phone: [phone] Specimen Comment: [employer]oxAssure, T[employer]ure FLEX or MAT drug testing: Specimen Comment: -Technical component - Data analysis performed at Specimen Comment: [address] [facility], [place] [address]. Madeleine Mitchell MD LAB URINE ORDERABLES Final Res ult Performing Organization Address [facility]/ZIP Co de Phone Number [facility] * CBC and differential (07/14/2024 7:49 AM EST) WBC 6.3 3.4 - 10.8 x10E3/uL [facility] RBC 4.50 3.77 - 5.28 x10E6/uL [facility] Hgb 13.5 11.1 - 15.9 g/dL [facility] Hct 42.0 34.0 - 46.6 % [facility] MCV 93 79 - 97 fL [facility] MCH 30.0 26.6 - 33.0 pg [facility] MCHC 32.1 31.5 - 35.7 g/dL [facility] RDW 11.9 11.7 - 15.4 % [facility] Platelets 282 150 - 450 x10E3/uL [facility] Neutrophils 67 Not Estab. % [facility] Lymphs 24 Not Estab. % [facility] Monocytes 7 Not Estab. % [facility] Eos 1 Not Estab. % [facility] Basos 1 Not Estab. % [facility] Neutrophils Abs 4.3 1.4 - 7.0 x10E3/uL [facility] Lymphs Abs 1.5 0.7 - 3.1 x10E3/uL [facility] MonocytesAbs 0.4 0.1 - 0.9 x10E3/uL [facility] Eos Abs 0.1 0.0 - 0.4 x10E3/uL [facility] Baso Abs 0.0 0.0 - 0.2 x10E3/uL [facility] Immature Granulocytes 0 Not Estab. % [facility] Immature Grans Abs 0.0 0.0 - 0.1 x10E3/uL [facility] Blood Venous blood specimen / Unknown 07/14/2024 7:49 AM EST 07/14/2024 Narrative [facility] - 07/20/2024 6:06 AM EDT Performed at: [address] [id number] Wheel Alignment Mechanic: Colten Cole PhD, Phone: [phone] Specimen Comment: [facility], T[employer]Assure FLEX or MAT drug testing: Specimen Comment: -Technical component - Data analysis performed at Specimen Comment: [address], [place] [address]. us Madeleine Mitchell MD LAB BLOOD ORDERABLES Final Res ult [facility] * Type and screen (07/14/2024 7:49 AM EST) ABO Grouping A [facility] Rh Factor Positive [facility] Comment: Please note: Prior records for this patient's ABO / Rh type are not available for additional verification. Antibody Screen Negative Negative [facility] Blood Venous blood specimen / Unknown 07/14/2024 7:49 AM EST 07/14/2024 Narrative [facility] - 07/20/2024 6:06 AM EDT Performed at: - [facility] [address] [id number] Wheel Alignment Mechanic: Colten Cole PhD, Phone: [phone] Specimen Comment: [employer]oxAssure, T[employer]ure FLEX or MAT drug testing: Specimen Comment: -Technical component - Data analysis performed at Specimen Comment: [address] [facility], [place] [address]. us Madeleine Mitchell MD LAB BLOOD ORDERABLES Final Res ult Performing Organization Address City/[facility] Co de Phone Number [facility] * Urine culture (07/14/2024 7:49 AM EST) Urine Cult Rt Status Final report [facility] Urine Urine specimen obtained by clean catch procedure / Unknown 07/14/2024 7:49 AM EST 07/14/2024 Comment:UR Narrative [facility] - 07/20/2024 6:06 AM EDT Performed at: - [facility] [address] [id number] Wheel Alignment Mechanic: Colten Cole PhD, Phone: [phone] Specimen Comment: [employer], [facility] FLEX or MAT drug testing: Specimen Comment: -Technical component - Data analysis performed at Specimen Comment: [address] [facility], [place] [address]. us Madeleine Mitchell MD LAB MICROBIOLOGY - GENERAL ORD ERABLES Final Result [facility] from Last 3 Months Additional Health Concerns Active Problems Noted Date Diagnosed Date OB Reminders 07/11/2024 Insurance [employer] Care Teams Concert Or Lecture Hall Manager Relationship Specialty Start Date End Date Unallocated, Noms MD Justina [address] [place] [address] PCP - General Family Medicine 06/23/23
--- OUTSIDE RECORDS SUMMARY | 2024-09-28 16:18 | XMS_ITS ---
Author Organization [facility] Source Produ ction (ClinicalSummary Clone) Address Unknown Care Team Providers Care Physician Compensation Analyst Name Role Phone Unavailable Primary Care Physician Unavailab le Results * [UNITY] ANEUPLOIDY NIPT Performed by: [employer] Value Range Date Fraction 7.0% 09/03/2024 03 :28 pm UTC Rh(D) NIPT RhD DETECTED 09/03/2024 03:2 8 pm UTC Sex Chromosome Aneuploidy NOT DETECTED 03:28 pm UTC Monosomy X LOW RISK <1 in 10,000 2024 03:28 pm UTC Trisomy 13 LOW RISK <1 in 10,000 2024 03:28 pm UTC Trisomy 18 LOW RISK <1 in 10,000 2024 03:28 pm UTC Trisomy 21 LOW RISK <1 in 10,000 2024 03:28 pm UTC Sex NOT ORDERED 09/03/2024 03:2 8 pm UTC Gestation DAVALOS 09/04/19 03:28 pm UTC For detailed report, see PDF See PDF 09/03/2024 03:28 pm UTC 09/03/2024 03:2 8 pm UTC Social History Observation Value Start Date End Date
--- OUTSIDE RECORDS SUMMARY | 2024-09-28 16:18 | XMS_ITS | Encounter Summary ---
Author Organization [facility] Address [address] [place] [address] Care Team Providers Care Rheumatology Specialist Name Role Phone Unallocated, Noms Provider Primary Care [facility] Encounter Details Date Type Department Care Team (Late st Contact Info) Description 09/28/2024 Bamboo flowsheet [facility] [address] [facility] [place] [address] Nadine Gurrola PA [address] [place] [address] Social History Tobacco Use Types Packs/Day Years [...] Delivery Comme nts Yes 02/26/2025 Based on Moises nayak, FHR- 173 Sex and Gender Information Value [...] EDT Ancillary Procedure [facility] OB [address] [facility] [place] [phone] 10/26/2024 11:50 AM EDT Routine [facility] [address] [facility] [place] [phone] José Lozano, DO [address] [place] [address] [place] [address] documented as of this encounter Goals Goal Patient Goal Type Associated Problems Recent Progress Patient-Stated? Author Reminders Care Plan OB Reminders No Jennifer Ayala RN documented as of this encounter Visit Diagnoses Not on filedocumented in this encounter Additional Health Concerns Active Problems Noted Date Diagnosed Date OB Reminders 07/11/2024 documented as of this encounter Care Teams Rheumatology Specialist Relationship Specialty Start Date End Date Unallocated, Noms Provider, MD [address] [place] [address] PCP - General Family Medicine 06/23/23 documented as of this encounter
--- OUTSIDE RECORDS SUMMARY | 2024-09-28 16:18 | XMS_ITS ---
Author Organization [facility] Source Produ ction (ClinicalSummary Clone) Address Unknown Care Team Providers Care Fire Investigator Name Role Phone Unavailable Primary Care Physician Unavailab le Results * [UNITY] CARRIER SCREEN Performed by: [employer] Component Value Range Date Sickle Cell Disease/Beta-Thalassemia/Hemo globinopathies carrier screen NEGATIVE 09/12/2024 03:07 am [facility] Alpha-Thalassemia carrier screen NEGATIVE 09/12/2024 03:07 am [facility] Cystic Fibrosis carrier screen NEGATIVE 09/12/2024 03:07 am [facility] Spinal Muscular Atrophy carrier screen NEGATIVE 2 SMN1 copies, SNP not present 09/12/2024 03:07 am [facility] For detailed report, see PDF See PDF 09/12/2024 03:07 am [facility] 09/12/2024 03:0 7 am [facility] Social History Observation Value Start Date End Date
--- OUTSIDE RECORDS SUMMARY | 2024-09-28 16:18 | XMS_ITS | Encounter Summary ---
Author Organization [facility] Address [address] [facility] [place] [address] Care Team Providers Care Relish Blender Name Role Phone Unallocated, Noms Provider Primary Care [facility] Encounter Details Date Type Department Care Team (Late st Contact Info) Description 09/12/2024 Abstract [facility] OB [address] [facility] [place] [phone] José Lozano, DO [address] [place] [address] Social History Tobacco Use Types Packs/Day Years [...] EDT Ancillary Procedure [facility] OB [address] [facility] [place] [phone] 10/26/2024 11:50 AM EDT Routine [facility] OB [address] [facility] [place] [phone] José Lozano, DO [address] [facility] [address] [place] [place], [place] [id number] documented as of this encounter Goals Goal Patient Goal Type Associated Problems Recent Progress Patient-Stated? Author Reminders Care Plan OB Reminders Jennifer Bond, RICHARD documented as of this encounter Visit Diagnoses Not on filedocumented in this encounter Additional Health Concerns Active Problems Noted Date Diagnosed Date OB Reminders 07/11/2024 documented as of this encounter Care Teams Relish Blender Relationship Specialty Start Date End Date Unallocated, Noms Justina, [address] [place] [address] PCP - General Family Medicine 06/23/23 documented as of this encounter
[2024-10-01 01:07] LABS: AFP Value 63.6 ng/mL (.); Gest. Age on Collection Date 18.4 weeks (.); Gestat. Age Based On Ultrasound (.); Insulin Dep Diabetes No (.); Maternal Age At EDD 29.2 yr (.); OSBR Risk 1 IN 3810 (.); Results Report (.)
== END 2024-09-28 16:16 | disposition home or self-care (01) ==
LOC: LAB 16:16
PROVIDERS: PCP Family Medicine; Visit Provider Physician Assistant
DX: Z34.92 Encounter for supervision of normal pregnancy, unspecified, second trimester (principal); Z3A.18 18 weeks gestation of pregnancy
CPT/HCPCS: 36415; 82105

== ENCOUNTER 2024-11-22 06:49 | Outpatient (OUT) | payer OTHER, SELFPAY ==
--- OUTSIDE RECORDS SUMMARY | 2024-11-22 06:51 | XMS_ITS ---
Author Organization [facility] Source Produ ction (ClinicalSummary Clone) Address Unknown Care Team Providers Care Last Puller Name Role Phone Unavailable Primary Care Physician Unavailab le Results * [UNITY] CARRIER SCREEN Performed by: [employer] Component Value Range Date Sickle Cell Disease/Beta-Thalassemia/Hemo globinopathies carrier screen NEGATIVE 09/12/2024 03:07 am [facility] Alpha-Thalassemia carrier screen NEGATIVE 09/12/2024 03:07 am [facility] Cystic Fibrosis carrier screen NEGATIVE 09/12/2024 03:07 am [facility] Spinal Muscular Atrophy carrier screen NEGATIVE 2 SMN1 copies, SNP not present 09/12/2024 03:07 am [facility] For detailed report, see PDF See PDF 09/12/2024 03:07 am [facility] 09/12/2024 03:0 7 am [facility] Social History Observation Value Start Date End Date
--- OUTSIDE RECORDS SUMMARY | 2024-11-22 06:51 | XMS_ITS ---
Author Organization [facility] Source Produ ction (ClinicalSummary Clone) Address Unknown Care Team Providers Care Dust Mill Operator Name Role Phone Unavailable Primary Care Physician Unavailab le Results * [UNITY] ANEUPLOIDY NIPT Performed by: [employer] Component Value Range Date Fraction 7.0% 09/03/2024 [...]
--- OUTSIDE RECORDS SUMMARY | 2024-11-22 06:51 | XMS_ITS | Clinical Summary ---
Author Organization [facility] Address [address] [address] Care Team Providers Care Ict Systems Test Engineer Name Role Phone Unallocated, Noms Provider Primary Care Provi ulysses Allergies No known active allergies Medications Vit-Fe Fumarate-FA ( PO) Take by mouth Active Encounters Date Type Department Care Team Description 11/17/2024 Travel 10/26/2024 11:50 AM EDT Routine [facility] [address] [place] [address] José Lozano DO Second trimester ([facility]); 22 weeks gestation of ([facility]); Diabetes mellitus screening 10/26/2024 11:00 AM EDT Ancillary Procedure [facility] OB [address] [place] [address] 09/29/2024 Telephone [facility] OB [address] [place] [address] Dea Olivares LPN 09/28/2024 3:20 PM EDT Routine [facility] OB [address] [place] [address] Nadine Gurrola PA Screening, , for anatomic survey ([facility]); STD exposure; Second trimester ([facility]); 18 weeks gestation of ([facility]) 09/28/2024 Clinisync Result Encounter [facility] External Department Unsolicited Nadine Gurrola PA 09/28/2024 External Result Encounter [facility] External Department Unsolicited Nadine Gurrola PA 09/28/2024 Bamboo flowsheet [facility]OM[facility] [address] [place] [address] Nadine Gurrola PA 09/28/2024 Travel 09/12/2024 Abstract [facility] [address] [place] [address] José Lozano, 08/29/2024 2:10 PM EDT Routine [facility]OM[facility] [address] [place] [address] José Lozano, DO Second trimester ([facility]); 14 weeks gestation of ([facility]) 08/29/2024 Clinisync Result Encounter [facility] External Department Unsolicited José Lozano, 08/29/2024 Bamboo flowsheet [facility]OM[facility] [address] [place] [address] José Lozano, 08/29/2024 Travel from Last 3 Months Family History [...] Sign Reading Time Taken Comments Blood Pressure 120/68 10/26/2024 12:05 PM EDT Pulse 77 06/23/2023 9:25 AM EST Temperature 36.4 C (97.5 F) 06/23/2023 9:25 AM EST Respiratory Rate 18 05/15/2023 11:28 AM EST Oxygen Saturation 99% 06/23/2023 9:25 AM EST Inhaled Oxygen Concentration - - Weight 68.9 kg (152 lb) 10/26/2024 12:05 PM EDT Height 160 cm (5' 3 ) 08/10/2024 2:55 PM EDT Body Mass Index 26.93 08/10/2024 2:55 PM EDT Plan of Treatment Upcoming Encounters Date Type Department Care Team (Late st Contact Info) Description 11/22/2024 8:50 AM EDT Routine [facility] OB [address] [facility] [phone] Nadine Gurrola PA [address] [place] [address] Health Maintenance Due Date Last Done Comments Influenza Vaccine (#1) 2025 Goals Goal Patient Goal Type Associated Problems Recent Progress Patient-Stated? Author Reminders Care Plan OB Reminders No Jennifer Ayala, carbon accountant Procedure Name Priority Date/Time Associated Diagnosis Comments POCT URINALYSIS DIPSTICK Routine 10/26/2024 12:06 PM EDT Second trimester ([facility]) US OB 14+ WEEKS ANATOMY SCAN Routine 10/26/2024 11:56 AM EDT Screening, , for anatomic survey ([facility]) AFP, SERUM, OPEN SPINA BIFIDA Routine 09/28/2024 4:26 PM EDT RECURRENT VAGINITIS (HTRX) Routine 09/28/2024 3:57 PM EDT POCT URINALYSIS DIPSTICK Routine 09/28/2024 3:41 PM EDT 18 weeks gestation of ([facility]) MLR HEMOGLOBIN A1C Routine 08/29/2024 3: 00 PM EDT POCT URINALYSIS DIPSTICK Routine 08/29/2024 2:14 PM EDT Second trimester ([facility]) BOX TEST Routine 08/29/2024 1:49 PM EDT from Last 3 Months Results * POCT urinalysis dipstick manually resulted (10/26/2024 12:06 PM EDT) Only the most recent of3 resultswithin the time period is included. Color, UA Yellow Clarity, UA Clear Glucose, UA Negative Negative - 1999(110) ++++ mg/dL Bilirubin, UA Negative Negative - 4(70) +++ mg/dL Ketones, UA Negative Negative - 160(16) ++++ mg/dL Spec Grav, UA 1.020 1 - 1.03 Blood, UA Negative Negative - 50 Mark/mcL pH, UA 6.5 5 - 9 Protein, UA Negative Negative - 1999(20) ++++ mg/dL Urobilinogen, UA 0.2 0.2 - 12 mg/dL Leukocytes, UA Negative Negative - 500+++ Mahsa/mcL Nitrite, UA Negative Negative - Positive Urine 10/26/2024 12:0 6 PM EDT José Lozano DO POINT OF CARE TEST ENTER/EDIT OR DERABLES Final Result * US OB 14+ weeks anatomy scan (10/26/2024 11:56 AM EDT) Anatomical Region Laterality Modality Body Ultrasound 10/27/2024 6:16 AM EDT Narrative 10/27/2024 6:16 AM EDT EXAM: US OB 14+ WEEKS ANATOMY SCAN HISTORY: anatomy. COMPARISON: Ob ultrasound 08/10/2024. TECHNIQUE: Two-dimensional transabdominal grayscale ultrasound imaging of the pelvis was performed. FINDINGS: Gestation: Single Presentation: Cephalic Cardiac Activity: 148 beats per minute Placental Location: Anterior with no sonographic abnormalities identified. Distance from Placental Tip to Cervix: 4.0 cm Cervical Length: 4.1 cm Amniotic Fluid: Appears adequate MEASUREMENTS: BPD: 4.9 cm EGA: 20 weeks 5 days HC: 19.0 cm EGA: 21 weeks 2 days AC: 17.2 cm EGA: 22 weeks 1 days FL: 3.8 cm EGA: 22 weeks 1 days HC/AC Ratio: 1.10 The gestational age by today's ultrasound is 21 weeks 4 days (+/- 11 days gestation). Estimated Weight: 469 grams, +/- 70 grams ( 1 lb 1 oz). Weight Percentile for gestational age: 24 % ANATOMY C-Spine: Unremarkable T-Spine: Unremarkable L-Spine: Unremarkable Sacrum: Unremarkable Four Chamber Heart: Unremarkable LVOT: Unremarkable RVOT: Unremarkable Stomach: Unremarkable Kidneys: Unremarkable Bladder: Unremarkable Diaphragm: Unremarkable Cord insertion: Unremarkable Cord vessels: Three Lateral Ventricles: Unremarkable Cerebellum: Unremarkable Cisterna Magna: Unremarkable Posterior Fossa: Unremarkable Right Femur: Unremarkable Left Femur: Unremarkable Right Tib/Fib: Unremarkable Left Tib/Fib: Unremarkable Right Rad/Ulnar: Unremarkable Left Rad/Ulnar: Unremarkable Right Humerus: Unremarkable Left Humerus: Unremarkable Nose/Lips: Unremarkable Profile: Unremarkable Orbits: Unremarkable IMPRESSION: 1. Single, live intrauterine gestation 22 weeks, 3 days by LMP. Today's ultrasound measurements correlate with a gestational age of 21 weeks 4 days. Estimated weight is 469 grams, +/- 70 grams ( 1 lb 1 oz) which correlates to 24 %. VALENTIN by today's ultrasound is 03/04/2025. 2. Unremarkable ultrasound of the anatomy. Interpreted by: Electronically signed by LEONIDAS NICOLE II, MD, PHD at 27-Oct-2024 06:14:52 AM [facility] Procedure Note Leonidas Nicole MD - 10/27/2024 EXAM: US OB 14+ WEEKS ANATOMY SCAN HISTORY: anatomy. COMPARISON: Ob ultrasound 08/10/2024. TECHNIQUE: Two-dimensional transabdominal grayscale ultrasound imaging ofthe pelvis was performed. FINDINGS: Gestation: Single Presentation: Cephalic Cardiac Activity: 148 beats per minute Placental Location: Anterior with no sonographic abnormalitiesidentified. Distance from Placental Tip to Cervix: 4.0 cm Cervical Length: 4.1 cm Amniotic Fluid: Appears adequate MEASUREMENTS: BPD: 4.9 cm EGA: 20 weeks 5 days HC: 19.0 cm EGA: 21 weeks 2 days AC: 17.2 cm EGA: 22 weeks 1 days FL: 3.8 cm EGA: 22 weeks 1 days HC/AC Ratio: 1.10 The gestational age by today's ultrasound is 21 weeks 4 days (+/- 11 daysgestation). Estimated Weight: 469 grams, +/- 70 grams ( 1 lb 1 oz). Weight Percentile for gestational age: 24 % ANATOMY C-Spine: Unremarkable T-Spine: Unremarkable L-Spine: Unremarkable Sacrum: Unremarkable Four Chamber Heart: Unremarkable LVOT: Unremarkable RVOT: Unremarkable Stomach: Unremarkable Kidneys: Unremarkable Bladder: Unremarkable Diaphragm: Unremarkable Cord insertion: Unremarkable Cord vessels: Three Lateral Ventricles: Unremarkable Cerebellum: Unremarkable Cisterna Magna: Unremarkable Posterior Fossa: Unremarkable Right Femur: Unremarkable Left Femur: Unremarkable Right Tib/Fib: Unremarkable Left Tib/Fib: Unremarkable Right Rad/Ulnar: Unremarkable Left Rad/Ulnar: Unremarkable Right Humerus: Unremarkable Left Humerus: Unremarkable Nose/Lips: Unremarkable Profile: Unremarkable Orbits: Unremarkable IMPRESSION: 1. Single, live intrauterine gestation 22 weeks, 3 days by LMP. Today'sultrasound measurements correlate with a gestational age of 21 weeks 4days. Estimated weight is 469 grams, +/- 70 grams ( 1 lb 1 oz) whichcorrelates to 24 %. VALENTIN by today's ultrasound is 03/04/2025. 2. Unremarkable ultrasound of the anatomy. Interpreted by: Electronically signed by LEONIDAS NICOLE II, MD, PHD 06:14:52 AM [facility] us Nadine DE JESUS IMG OB US PROCEDURES Final Resul t * AFP, SERUM, OPEN SPINA BIFIDA (09/28/2024 4:26 PM EDT) RESULTS Report . [facility] TEST RESULTS: *Screen Negative* . [facility] GEST. AGE ON COLLECTION DATE 18.4 . weeks [facility] GESTAT. AGE BASED ON Ultrasound . [facility] Comment: 18.3 on 09/27/2024 Recalculations are not recommended when gestational dating by LMP and ultrasound are within 10 days. [age] VALENTIN [age] [facility] RACE . [facility] WEIGHT 148 . lbs [facility] INSULIN DEP DIABETES No . [facility] MULTIPLE GESTATION No . H AFP VALUE 63.6 . ng/mL [facility] AFP MOM 1.38 . [facility] OSBR RISK 1 IN 3810 . [facility] INTERPRETATION Comment . [facility] Comment: Interpretation: Screen Negative This result is screen negative for OSB. The AFP MoM calculated is based on the gestational age provided. MS-AFP can identify up to 80% of open neural tube defects. Closed neural tube defects and some open defects may not be detected by this test. This test does not screen for Down Syndrome or Trisomy 18. If screening for Down Syndrome or Trisomy 18 is desired, contact [facility] to discuss available options. The [employer] recommends amniocentesis be offered to women age 35 and older. COMMENT: Comment . [facility] Comment: Rosy Amaya, Ph.D., [facility] Director References: Available Upon Request. Multiples Of Median Cutoffs For AFP Elevations Plummer 2.5 Black 2.8 IDD 2.0 Twins 4.5 Abbreviation Definitions IDD - Insulin Dep Diabetes OSBR - Open Spina Bifida Risk For further inquiries contact [facility] at [phone]. This test was developed and its performance characteristics determined by [facility] [facility]. It has not been cleared or approved by the Food and Drug Administration. Performed at: [facility] [address] [place], [place] [id number] New Account Interviewer: Elisa Fields [facility], Phone: [phone] 09/28/2024 4:26 PM EDT 09/28/2024 4:26 PM EDT Narrative SHERRILL - 10/01/2024 1:07 AM EDT N N ULTRASOUND [id number] 2 18 N 1 Y 148 N N N N N White/ us Nadine DE JESUS LAB BLOOD ORDERABLES Final Resul t SHERRILL [facility] * (ABNORMAL) RECURRENT VAGINITIS (HTRX) (09/28/2024 3:57 PM EDT) [facility] ATOPOBIUM VAGINAE 19.132(A) 19.961 - 24.689 ppm 09/29/2024 6:28 AM EDT [facility] ATOPOBIUM VAGINAE Detected(A) 19.961 - 24.689 ppm 09/29/2024 6:28 AM EDT [facility] BVAB 2,3 (BACTERIAL VAGINOSIS ASSOCIATED BACTERIA 2, 3); MOBILUNCUS SPP 0.000 19.961 - 24.689 ppm 09/29/2024 6:28 AM EDT [facility] BVAB 2,3 (BACTERIAL VAGINOSIS ASSOCIATED BACTERIA 2, 3); MOBILUNCUS SPP Not Detected 19.961 - 24.689 ppm 09/29/2024 6:28 AM EDT [facility] AME ALBICANS, PARAPSILOSIS, TROPICALIS 0.000 19.961 - 30.770 ppm 09/29/2024 6:28 AM EDT [facility] AME ALBICANS, PARAPSILOSIS, TROPICALIS Not Detected 19.961 - 30.770 ppm 09/29/2024 6:28 AM EDT [facility] AME GLABRATA 0.000 23.000 - 32.138 ppm 09/29/2024 6:28 AM EDT [facility] AME GLABRATA Not Detected 23.000 - 32.138 ppm 09/29/2024 6:28 AM EDT [facility] AME KRUSEI 0.000 23.000 - 32.271 ppm 09/29/2024 6:28 AM EDT [facility] AME KRUSEI Not Detected 23.000 - 32.271 ppm 09/29/2024 6:28 AM EDT [facility] CHLAMYDIA TRACHOMATIS 0.000 23.000 - 31.467 ppm 09/29/2024 6:28 AM EDT [facility] CHLAMYDIA TRACHOMATIS Not Detected 23.000 - 31.467 ppm 09/29/2024 6:28 AM EDT [facility] GARDNERELLA VAGINALIS 23.756(A) 19.961 - 24.689 ppm 09/29/2024 6:28 AM EDT [facility] GARDNERELLA VAGINALIS Detected(A) 19.961 - 24.689 ppm 09/29/2024 6:28 AM EDT [facility] MEGASPHAERA (TYPES 1, 2) 0.000 19.961 - 24.689 ppm 09/29/2024 6:28 AM EDT [facility] MEGASPHAERA (TYPES 1, 2) Not Detected 19.961 - 24.689 ppm 09/29/2024 6:28 AM EDT [facility] NEISSERIA GONORRHOEAE 0.000 23.000 - 32.117 ppm 09/29/2024 6:28 AM EDT [facility] NEISSERIA GONORRHOEAE Not Detected 23.000 - 32.117 ppm 09/29/2024 6:28 AM EDT [facility] TRICHOMONAS VAGINALIS 0.000 23.000 - 32.119 ppm 09/29/2024 6:28 AM EDT [facility] TRICHOMONAS VAGINALIS Not Detected 23.000 - 32.119 ppm 09/29/2024 6:28 AM EDT [facility] MYCOPLASMA GENITALIUM 0.000 19.961 - 24.689 ppm 09/29/2024 6:28 AM EDT [facility] MYCOPLASMA GENITALIUM Not Detected 19.961 - 24.689 ppm 09/29/2024 6:28 AM EDT [facility] Tissue 09/28/2024 3:57 PM EDT 09/29/2024 1:28 AM EDT Nadine DE JESUS LAB BLOOD ORDERABLES Final Resul t [facility] [address] [place] [address] * MLR HEMOGLOBIN A1C (08/29/2024 3:00 PM EDT) GLYCOHEMOGLOBIN A1C 5.3 4.5 - 6.2 % [facility] Comment: ADA RECOMMENDED LIMIT 4.0 - 6.0 ADA THERAPEUTIC TARGET < 7.0 ACTION SUGGESTED > 7.0 ESTIMATED AVERAGE GLUCOSE 105 mg/dL TB 08/29/2024 3:00 PM EDT 08/29/2024 3:02 PM EDT Narrative [facility] - 08/29/2024 3:16 PM EDT us José Blake DO [facility] Final Result Performing Organization Address [facility] de Phone Number [facility] TB * BOX TEST (08/29/2024 1:49 PM EDT) BOX TEST SENT OUT [facility] [address] [facility] [address] 08-29-24 [facility] 08/29/2024 1:49 PM EDT 08/29/2024 1:57 PM EDT Narrative [facility] - 08/29/2024 2:19 PM EDT [facility] José Jasono DO LAB BLOOD ORDERABLES Final Resul t Performing Organization Address [facility] Co de Phone Number [facility] TB from Last 3 Months Additional Health Concerns Active Problems Noted Date Diagnosed Date OB Reminders 07/11/[address] [place] [id number] [employer] Care Teams Ict Systems Test Engineer Relationship Specialty Start Date End Date Unallocated, Noms Provider, [address] [place], [place] [id number] PCP - General Family Medicine 06/23/23
--- OUTSIDE RECORDS SUMMARY | 2024-11-22 06:51 | XMS_ITS | CCD ---
Author Organization [facility] Care Team Providers Care Rv Mechanic Name Role Phone DR JANES GARCIA Admitting Unavailable JOSE, DR JANES Escobar Attending Unavailable REQUEST, NONE LISTED Primary Care Unavaila DR JANES Rodriguez Consulting Unavailable Lisandro Buitrago Unavailable DO iLsandro Buitrago Attending Provider Tyrell Stiles Unavailable Lisandro Buitrago Attending Unavailable Lisandro Buitrago Admitting Unavailable Unallocated , Noms Provider Primary Care Provi ulysses Zita Alanis Primary Care Unavailable Zita Alanis Attending Unavailable Zita Alanis Attending Unavailable Zita Alanis Primary Care Unavailable Zita Alanis Attending Unavailable Zita Alanis Primary Care Unavailable ROCIO LOZANO Attending Unavailable NADINE GALVAN Attending Unavailable ROCIO LOZANO Attending Unavailable ATTILA BUNDY Attending Unavailable ATTILA BUNDY Attending Unavailable Medications Current Medications Medication Drug Class(es) Dates Sig (Normalized) Sig (Original) naproxen 500 mg oral tablet (1 source) Nonsteroidal Anti-inflammatory Drug Start: 05-12-2023 take 1 tablet by mouth every twelve hours at mealtime as needed Naproxen 500 MG 1 tablet with food or milk as needed Orally every 12 hrs for 20 days May, Active Vit-Fe Fumarate-FA ( PO) (8 sources) Vit-Fe Fumarate-FA ( PO) Take by mouth Active Completed/Discontinued Medications Medication Drug Class(es) Dates Sig (Normalized) Sig (Original) azithromycin 250 mg oral tablet (3 sources) Macrolide Antimicrobial Start: 08-21-2024 End: 08-29-2024 azithromycin (Zithromax Z-Triston) 250 MG tablet Indications: Sore throat As directed 6 tablet 08/21/2024 08/29/2024 Discontinued 21 day ethinyl estradiol 0.413933 mg/hr / etonogestrel 0.005 mg/hr vaginal system (6 sources) Progestin, Estrogen Start: 05-13-2023 End: 05-16-2024 EluRyng 0.12-0.015 MG/24HR vaginal ring INSERT 1 RING VAGINALLY, LEAVE IN FOR 21 DAYS THEN REMOVE FOR 1 WEEK. REPEAT MONTHLY 05/13/2023 05/16/2024 Discontinued (Therapy completed) NuvaRing _insert 1 PV q month Nay Osiel MONROY Active Problems Problem Classification Problem Date Documented Date Episodic/Chronic Administrative/social admission (2 sources) Persons encountering health services in other specified circumstances; Translations: [Patient encounter status] Episodic Contraceptive and procreative management (4 sources) Contraception status; Translations: [Encounter for surveillance of vaginal ring hormonal contraceptive device] 02-08-2024 Episodic Disorders of lipid metabolism (1 source) Hyperlipidemia; Translations: [Hyperlipidemia, unspecified] Chronic Esophageal disorders (1 source) Gastro-esophageal reflux disease without esophagitis; Translations: [GERD WITHOUT ESOPHAGITIS] Onset: 2 Chronic Menstrual disorders (8 sources) Amenorrhea; Translations: [Amenorrhea, unspecified] 02-08-2024 Chronic Nausea and vomiting (3 sources) Nausea with vomiting, unspecified; Translations: [NAUSEA WITH VOMITING UNSPECIFIED] Onset: 2 Episodic Noninfectious gastroenteritis (1 source) Noninfective gastroenteritis and colitis, unspecified; Translations: [NONINFECTIVE GE AND COLITIS UNS] Onset: 2 Episodic Nonspecific chest pain (3 sources) Chest pain, unspecified; Translations: [Chest pain] Onset: 3 Episodic Other and ill-defined heart disease (2 sources) Left atrial enlargement; Translations: [Cardiomegaly] Chronic Other and ill-defined heart disease (1 source) Cardiomegaly Chronic Other endocrine disorders (2 sources) Disorder of endocrine system; Translations: [Endocrine disorder, unspecified] 05-16-2024 Episodic Other non-traumatic joint disorders (2 sources) Pain in left shoulder; Translations: [Acute pain of left shoulder] Episodic Other and delivery including normal (8 sources) Normal ; Translations: [Encounter for supervision of normal first , first trimester] 07-11-2024 Episodic Other screening for suspected conditions (not mental disorders or infectious disease) (9 sources) Abnormal electrocardiogram [ECG] [EKG]; Translations: [Cancer cervix screening status] Episodic Residual codes; unclassified (2 sources) Gestation period, 14 weeks; Translations: [14 weeks gestation of ] 08-29-2024 Episodic Residual codes; unclassified (2 sources) Gestation period, 22 weeks; Translations: [22 weeks gestation of ] 10-26-2024 Episodic Sprains and strains (1 source) Strain of muscle, fascia and tendon of lower back, initial encounter Episodic Unclassified (1 source) Pain in left shoulder; Translations: [Pain in left shoulder] Onset: 3 Unclassified (8 sources) OB Reminders Onset: 5 07-11-2024 Results Test Name Value Interpretation Reference Range Facility Urinalysis macro (dipstick) panel (U)on 10-26-2024 Bilirubin, UA Negative Negative - 4(70) +++ mg/dL [facility] Blood, UA Negative Negative - 50 Mark/mcL [facility] Clarity, UA Clear [facility] Color, UA Yellow [facility] Glucose, UA Negative Negative - 2000(110) ++++ mg/dL [facility] Interpretation and review of laboratory results Normal [facility] Ketones, UA Negative Negative - 160(16) ++++ mg/dL [facility] Leukocytes, UA Negative Negative - 500+++ Mahsa/mcL [facility] Nitrite, UA Negative Negative - Positive [facility] pH, UA 6.5 5 - 9 [facility] Protein, UA Negative Negative - 2000(20) ++++ mg/dL [facility] Spec Grav, UA 1.02 1 - 1.03 [facility] Urobilinogen, UA 0.2 0.2 - 12 mg/dL [facility] US OB 14+ WEEKS ANATOMY SCAN on 09-28-2024 US OB 14+ WEEKS ANATOMY SCAN EXAM: US OB 14+ WEEKS ANATOMY SCAN [...] II, MD, PHD at 27-Oct-2024 06:14:52 AM [facility] Normal Not Available Comment on above: Order Comment: US OB ANATOMY SINGLE W US OB CERVICAL LENGTH Estimated Date of Delivery: 02/26/25 Gestational Age as of 09/28/2024: 18w3d BOX TESTon 08-29-2024 BOX TEST SENT OUT [place] B[facility] [place] [facility] 08-29-24 [facility] [employer] [employer] Urinalysis macro (dipstick) panel (U)on 08-29-2024 Bilirubin, UA Negative Negative - 4(70) +++ mg/dL [facility] Blood, UA Negative Negative - 50 Mark/mcL [facility] Clarity, UA Clear [facility] Color, UA Yellow [facility] Glucose, UA Negative Negative - 2000(110) ++++ mg/dL [facility] Interpretation and review of laboratory results Normal [facility] Ketones, UA Negative Negative - 160(16) ++++ mg/dL [facility] Leukocytes, UA Negative Negative - 500+++ Mahsa/mcL [facility] Nitrite, UA Negative Negative - Positive [facility] pH, UA 6 5 - 9 [facility] Protein, UA Negative Negative - 2000(20) ++++ mg/dL [facility] Spec Grav, UA 1.02 1 - 1.03 [facility] Urobilinogen, UA 0.2 0.2 - 12 mg/dL [facility] HCG ( test) Ql (U)o n 08-10-2024 Interpretation and review of laboratory results Abnormal [facility] Preg Test, Ur Positive Negative [facility] US OB < 14 WEEKS EARLYon US OB < 14 WEEKS EARLY EXAM: US OB < 14 WEEKS EARLY [...] Doppler evaluation of the bilateral ovaries. Electronically Signed:Electronical ly signed by LEONIDAS NICOLE II, MD, PHD at 11-Aug-2024 08:40:37 AM [facility] Normal Not Available Comment on above: Order Comment: US OB Patient's last menstrual period was 05/09/2024 (exact date). Urinalysis macro (dipstick) panel (U)on 08-10-2024 Bilirubin, UA Negative Negative - 4(70) +++ mg/dL [facility] Blood, UA Negative Negative - 50 Mark/mcL [facility] Clarity, UA Clear [facility] Color, UA Yellow [facility] Glucose, UA Negative Negative - 2000(110) ++++ mg/dL [facility] Interpretation and review of laboratory results Abnormal [facility] Ketones, UA Positive Negative - 160(16) ++++ mg/dL [facility] Comment on above: 40 Leukocytes, UA Negative Negative - 500+++ Mahsa/mcL [facility] Nitrite, UA Negative Negative - Positive [facility] pH, UA 5.5 5 - 9 [facility] Protein, UA Negative Negative - 2000(20) ++++ mg/dL [facility] Spec Grav, UA 1.02 1 - 1.03 [facility] Urobilinogen, UA 0.2 0.2 - 12 mg/dL [facility] Outside Recordson 04-20-2024 Outside Records [id number] [facility]-31-2024 Outside Records [id number] 6#1.00[facility] Consent Formson 02-18-2024 Consent Forms [id number]#1.00[facility] Cytology Cervical or vaginal smear or scraping studyon 02-08-2024 [facility] HCG ( test) Ql (U)o n 02-08-2024 Interpretation and review of laboratory results Normal [facility] Preg Test, Ur Negative [facility] CMP Standardon 02-03-2024 eGFR Non AA >60 Invalid Interpretation Code [facility] Comment on above: Performed By: #### 1 [id number], [id number], 2580845, 1735410, 4013258, 8179683, 8313080 #### [facility] (DEFAULT) [address] [place] [address] eGFR AA >60 Invalid Interpretation Code [facility] Comment on above: Performed By: #### 1 [id number], [id number], 0889860, 3298889, 5649525, 5495874, 4588260 #### [facility] (DEFAULT) [address] [place] [address] Albumin [Mass/Vol] 4.4 g/dL Normal 3.5-5.0 [facility] Comment on above: Performed By: #### 1 [id number], [id number], 6917863, 7075232, 2533211, 8798191, 9980768 #### [facility] (DEFAULT) [address] [place] [address] Albumin/Globulin [Mass ratio] 1.4 {ratio} Normal 1.4-2.6 [facility] Comment on above: Performed By: #### 1 [id number], [id number], 6378546, 6860394, 7959750, 6438522, 6044455 #### [facility] (DEFAULT) [address] [place] [address] Alk Phos 67 IU/L Normal 32-91 [facility] Comment on above: Performed By: #### 1 [id number], [id number], 5531465, 0543481, 9567965, 5456597, 0435101 #### [facility] (DEFAULT) [address] [place] [address] ALT [Catalytic activity/Vol] 19.0 U/L Normal 14.0-54.0 [facility] Comment on above: Performed By: #### 1 [id number], 9352136134, 9211340, 1553825, 3176869, 8251651, 6134034 #### [facility] (DEFAULT) [address] [place] [address] Anion gap [Moles/Vol] 10.8 mmol/L Normal 5.0-19.0 [facility] Comment on above: Performed By: #### 1 [id number], 9302926945, 2970411, 2564188, 9283249, 4345995, 7799354 #### [facility] (DEFAULT) [address] [place] [address] 21050 AST [Catalytic activity/Vol] 21 U/L Normal 15-41 [facility] Comment on above: Performed By: #### 1 [id number], 1495145415, 6051132, 6996084, 4100058, 7154440, 8197903 #### [facility] (DEFAULT) [address] [place] [address] 04145 Bili Total 0.7 mg/dL Normal 0.3-1.2 [facility] Comment on above: Performed By: #### 1 [id number], 4007628990, 3159486, 6375369, 3750033, 5459301, 4989113 #### [facility] (DEFAULT) [address] [place] [address] 58565 Calcium [Mass/Vol] 8.9 mg/dL Normal 8.9-10.3 [facility] Comment on above: Performed By: #### 1 [id number], 6393478849, 3128219, 0922275, 7981248, 9816784, 2674409 #### [facility] (DEFAULT) [address] [place] [address] 86502 Chloride [Moles/Vol] 100 mmol/L Low 101-111 [facility] Comment on above: Performed By: #### 1 [id number], 4383192635, 7190256, 8814830, 4812757, 2381731, 5927248 #### [facility] (DEFAULT) [address] [place] [address] 27740 CO2 [Moles/Vol] 26 mmol/L Normal 21-32 [facility] Comment on above: Performed By: #### 1 [id number], 1102423483, 6627248, 8864059, 1163600, 9414199, 9739372 #### [facility] (DEFAULT) [address] [place] [address] 43515 Creatinine [Mass/Vol] 0.86 mg/dL Normal 0.60-1.30 [facility] Comment on above: Performed By: #### 1 [id number], 8900345019, 4178706, 3446215, 5062268, 4398085, 8646699 #### [facility] (DEFAULT) [address] [place] [address] 85937 Globulin (S) [Mass/Vol] 3.1 g/dL Normal 1.5-4.3 [facility] Comment on above: Performed By: #### 1 [id number], 4141142353, 1300449, 1918198, 7827492, 4808638, 0136282 #### [facility] (DEFAULT) [address] [place] [address] 29340 Glucose [Mass/Vol] 90.0 mg/dL Normal 74.0-118.0 [facility] Comment on above: Performed By: #### 1 [id number], 0334119909, 8282780, 5675910, 8295479, 8918904, 3011692 #### [facility] (DEFAULT) [address] [place] [address] 35332 Osmolality 267 mOsm/L Invalid Interpretation Code [facility] Comment on above: Performed By: #### 1 [id number], 3502656401, 4375583, 9433477, 7430027, 3543704, 5912175 #### [facility] (DEFAULT) [address] [place] [address] 93445 Potassium [Moles/Vol] 3.8 mmol/L Normal 3.6-5.1 [facility] Comment on above: Performed By: #### 1 [id number], 3754825879, 5673749, 2671293, 9174581, 4877723, 4495108 #### [facility] (DEFAULT) [address] [place] [address] 53382 Protein [Mass/Vol] 7.5 g/dL Normal 6.5-8.1 [facility] Comment on above: Performed By: #### 1 [id number], 3635468920, 7620416, 4876349, 5777016, 7289990, 7628255 #### [facility] (DEFAULT) [address] [place] [address] 54929 Sodium [Moles/Vol] 133.0 mmol/L Low 136.0-144.[address] [facility] Comment on above: Performed By: #### 1 [id number], 0874445766, 8647390, 8204226, 0913215, 7021804, 2196738 #### [facility] (DEFAULT) [address] [place] [address] 68456 Urea nitrogen [Mass/Vol] 17 mg/dL Normal - [facility] Comment on above: Performed By: #### 1 [id number], 5576394082, 2760987, 6534647, 7910946, 6466046, 8589990 #### [facility] (DEFAULT) [address] [place] [address] Urea nitrogen/Creatinine [Mass ratio] 19.7 mg/mg High 4.6-16.2 [facility] Comment on above: Performed By: #### 1 [id number], 6116487164, 0170008, 8231420, 4548452, 5386928, 4498245 #### [facility] (DEFAULT) [address] [place] [address] 20315 GGTon 02-03-2024 Gamma glutamyl transferase [Catalytic activity/Vol] 20.0 U/L Normal 7.0-50.0 [facility] Comment on above: Performed By: #### 1 [id number], 8240846031, 4356616, 6180892, 3112839, 0386998, 3835483 #### [facility] (DEFAULT) [address] [place] [address] 14931 Iron Levelon 02-03-2024 Iron [Mass/Vol] 93.0 ug/dL Normal 28.0-170.0 [facility] Comment on above: Performed By: #### 1 [id number], 9629116615, 0057275, 4860540, 6446875, 6192765, 7589595 #### [facility] (DEFAULT) [address] [place] [address] 19239 LDHon 02-03-2024 LDH 126.0 IU/L Normal 98.0-192.0 [facility] Comment on above: Performed By: #### 1 [id number], 1228495157, 7091103, 7123444, 4652049, 3761321, 6309140 #### [facility] (DEFAULT) [address] [place] [address] 71573 Lipid Panel Standardon 02-02 Cholesterol [Mass/Vol] 214.0 mg/dL High 66.0-200.0 [facility] Comment on above: Performed By: #### 1 [id number], 1449043175, 5269395, 9287141, 3308692, 3108659, 7055237 #### [facility] (DEFAULT) [address] [place] [address] 25522 Cholesterol in HDL [Mass/Vol] 64 mg/dL Normal 40-71 [facility] Comment on above: Performed By: #### 1 [id number], 9883160971, 6228989, 0008649, 0340103, 5122863, 6815041 #### [facility] (DEFAULT) [address] [place] [address] 06994 Cholesterol in LDL [Mass/Vol] 144 mg/dL High 1-100 [facility] Comment on above: Performed By: #### 1 [id number], 1913939537, 2940644, 8602059, 5136562, 3534481, 0851089 #### [facility] (DEFAULT) [address] [place] [address] 69965 Cholesterol.total/C holesterol in HDL [Mass ratio] 3.3 {ratio} Normal 0.0-4.5 [facility] Comment on above: Performed By: #### 1 [id number], 0483942675, 1063350, 7593810, 3753591, 2243888, 0765369 #### [facility] (DEFAULT) [address] [place] [address] 09719 Triglyceride [Mass/Vol] 28.0 mg/dL Normal 0.0-150.0 [facility] Comment on above: Performed By: #### 1 [id number], 8420605534, 1135647, 2872242, 6252553, 2541520, 1262194 #### [facility] (DEFAULT) [address] [place] [address] VLDL. 6 mg/dL Normal 5-40 [facility] Comment on above: Performed By: #### 1 [id number], 3699820652, 3821819, 7517953, 0383118, 6872050, 2075412 #### [facility] (DEFAULT) [address] [place] [address] 43860 Phoson 02-03-2024 Phosphate [Mass/Vol] 2.9 mg/dL Normal 2.5-4.6 [facility] Comment on above: Performed By: #### 1 [id number], 9175446261, 5326919, 3997106, 3951194, 8837205, 9912287 #### [facility] (DEFAULT) [address] [place] [address] 26018 Uric Acidon 02-03-2024 Urate [Mass/Vol] 4.0 mg/dL Normal 2.6-8.0 [facility] Comment on above: Performed By: #### 1 [id number], 2613717655, 6446406, 9698101, 5626726, 1926665, 1521048 #### [facility] (DEFAULT) [address] [place] [address] 49059 XR chest 2V*on 03-02-2023 XR chest 2V* [facility] [place] [address] XRay Report Signed Patient: Alondra Sanches MR#: [id number] : 1995 Acct:[id number] Age/Sex: 27 / F ADM Date: 03/02/23 [facility] Attending Dr: Lisandro Buitrago DO Copies to: Lisandro Buitrago DO Ordering Provider: Lisandro Buitrago DO Date of Service: 03/02/23 XR/XR shoulder LT min 2V*: Left shoulder pain ([id number]) XR/XR chest 2V*: Left shoulder pain;Chest pain LEFT SHOULDER - - 3 views, chest 2 views CLINICAL HISTORY: Left-sided clavicular pain since October. COMPARISON: None FINDINGS: Left clavicle: No acute bony process. AC joint appears unremarkable. CHEST: Heart normal in size. Lungs are clear. No free air. XR/XR shoulder LT min 2V* IMPRESSION: NO ACUTE FINDINGS INVOLVING THE CHEST OR LEFT CLAVICLE. Impression dictated by: Terry Puentes Jr., D.OReese03/02/2023 4:13 PM Dictation Location: [place] [address] Transcribed By: [facility] 03/02/231612 Dictated By: Terry Puentes Jr, DO 03/02/231611 Signed By: 03/02/231612 Normal [facility] CBC W MANUAL DIFFon 07-29-19 22 ATYPICAL LYMPH # Normal [facility] Comment on above: Performed By: #### C GARRET #### [facility] [address] [place] [address] Dr. Susannah Hopkins ATYPICAL LYMPH % Normal [facility] Comment on above: Performed By: #### C BCMAN #### [facility] [address] [place] [address] Dr. Susannah Hopkins BAND # 0.3 103/ul Normal 0.0-0.3 [facility] Comment on above: Performed By: #### C BCMAN #### [facility] [address] [place] [address] Dr. Susannah Hopkins BAND % 2 % Normal 0-5 [facility] Comment on above: Performed By: #### C BCMAN #### [facility] [address] [place] [address] Dr. Susannah Hopkins BASOM # 0.00 103/ul Normal 0.00-0.10 [facility] Comment on above: Performed By: #### C BCMAN #### [facility] [address] [place] [address] Dr. Susannah Hopkins BASOM % 0.0 % Critically low 0.2-2.[address] [facility] Comment on above: Performed By: #### C BCMAN #### [facility] [address] [place] [address] [address] Susannah Hopkins BLAST # Normal [facility] Comment on above: Performed By: #### C BCMAN #### [facility] [address] [address] [address] Susannah Hopkins BLAST % Normal [facility] Comment on above: Performed By: #### C BCMAN #### [facility] [address] [address] [address] Susannah Hopkins CORRECTED WBC Normal 4.0-11.0 [facility] Comment on above: Performed By: #### C BCOCTAVIANO #### [facility] [address] [address] [address] Susannah Hopkins EOS # 0.00 103/ul Normal 0.00-0.70 [facility] Comment on above: Performed By: #### C GARRET #### [facility] [address] [place] [address] Dr. Susannah Hopkins EOS% 0.0 % Critically low 0.9-7.0 [facility] Comment on above: Performed By: #### C BCOCTAVIANO #### [facility] [address] [address] [address] Susannah Hopkins HCT 46.0 % Normal 36.0-48.0 [facility] Comment on above: Performed By: #### C GARRET #### [facility] [address] [place] [address] Dr. Susannah Hopkins HGB 15.7 g/dl Normal 12.0-16.0 [facility] Comment on above: Performed By: #### C BCMAN #### [facility] [address] [place] [address] Dr. Susannah Hopkins LYMPHM # 0.69 103/ul Critically low 1.20-3.80 [facility] Comment on above: Performed By: #### C BCMAN #### [facility] [address] [place] [address] [address] Susannah Hopkins LYMPHM% 4.0 % Critically low 20.5-60.0 [facility] Comment on above: Performed By: #### C BCOCTAVIANO #### [facility] [address] [place] [address] Dr. Susannah Hopkins MCH 30.1 pg Normal 26.7-34.0 [facility] Comment on above: Performed By: #### C GARRET #### [facility] [address] [place] [address] Dr. Susannah Hopkins MCHC 34.1 g/dl Normal 29.9-35.2 [facility] Comment on above: Performed By: #### C GARRET #### [facility] [address] [place] [address] Dr. Susannah Hopkins MCV 88.3 fL Normal 81.0-99.0 [facility] Comment on above: Performed By: #### C GARRET #### [facility] [address] [place] [address] Dr. Susannah Hopkins METAMYELOCYTE # Normal [facility] Comment on above: Performed By: #### Natty COMBS #### [facility] [address] [place] [address] Dr. Susannah Hopkins METAMYELOCYTE % Normal [facility] Comment on above: Performed By: #### Natty COMBS #### [facility] [address] [place] [address] Dr. Susannah Hopkins MONOM# 1.20 103/ul Critically high 0.30-0.80 [facility] Comment on above: Performed By: #### Natty COMBS #### [facility] [address] [place] [address] Dr. Susannah Hopkins MONOM% 7.0 % Normal 1.7-12.0 [facility] Comment on above: Performed By: #### Natty COMBS #### [facility] [address] [place] [address] Dr. Susannah Hopkins MPV 9.8 fL Normal 9.5-13.5 [facility] Comment on above: Performed By: #### Natty COMBS #### [facility] [address] [place] [address] Dr. Susannah Hopkins MYELOCYTE # Normal [facility] Comment on above: Performed By: #### C GARRET #### [facility] [address] [address] [address] Susannah Hopkins MYELOCYTE % Normal [facility] Comment on above: Performed By: #### C BCMAN #### [facility] [address] [address] [address] Susannah Hopkins NRBC Normal [facility] Comment on above: Performed By: #### C BCMAN #### [facility] [address] [address] [address] Susannah Hopkins PLT 278 103/ul Normal 150-450 [facility] Comment on above: Performed By: #### C BCMAN #### [facility] [address] [address] [address] Susannah Hopkins RBC 5.21 106/ul Normal 4.20-5.40 [facility] Comment on above: Performed By: #### C BCMAN #### [facility] [address] [place] [address] Dr. Susannah Hopkins RDW 11.7 % Normal 11.0-15.0 [facility] Comment on above: Performed By: #### C BCMAN #### [facility] [address] [place] [address] Dr. Susannah Hopkins SEG # 14.96 103/ul Critically high 1.40-6.50 [facility] Comment on above: Performed By: #### C BCMAN #### [facility] [address] [address] [address] Susannah Hopkins SEG % 87.0 % Critically high 43.0-75.0 [facility] Comment on above: Performed By: #### C BCMAN #### [facility] [address] [address] [address] Susannah Hopkins WBC 17.2 103/ul Critically high 4.0-11.0 [facility] Comment on above: Performed By: #### C BCMAN #### [facility] [address] [place] [address] Dr. Susannah Hopkins INFLUENZA A AND B AGon 07-28 INFLUANEGH SEE BELOW Normal [facility] Comment on above: Result Comment: Nega tive for Flu A protein angiten. Infection due to Flu A cannot be ruled out. Flu A angiten in the sample may be below the detection limit of the test. Performed By: #### I NFLUAB #### [facility] [address] [place] [address] Dr. Susannah Hopkins INFLUBNEGH SEE BELOW Normal [facility] Comment on above: Result Comment: Nega tive for Flu B protein antigen. Infection due to Flu B cannot be ruled out. Flu B antigen in the sample may be below the detection limit of the test. Performed By: #### I NFLUAB #### [facility] [address] [place] [address] Dr. Susannah Hopkins INFLUENZA A AG Negative Normal NEGATIVE SEE COMMENT [facility] Comment on above: Performed By: #### I NFLUAB #### [facility] [address] [place] [address] Dr. Susannah Hopkins INFLUENZA B AG Negative Normal NEGATIVE SEE COMMENT [facility] Comment on above: Performed By: #### I NFLUAB #### [facility] [address] [place] [address] Dr. Susannah Hopkins INTERNAL CONTROLS Within Normal Limits Normal Within Normal Limits [facility] Comment on above: Performed By: #### I NFLUAB #### [facility] [address] [place] [address] Dr. Susananh Hopkins PREG HCG QUALon 07-28-2021 , QUAL Negative Normal NEGATIVE [facility] Comment on above: Performed By: #### P REG #### [facility] [address] [place] [address] Dr. Susannah Hopkins PROF 14(COMP METB)on 022 Albumin [Mass/Vol] 4.4 g/dL Normal 3.4-5.0 [facility] Comment on above: Performed By: #### C MP #### [facility] [address] [place] [address] Dr. Susannah Hopkins Albumin/Globulin [Mass ratio] 1.1 {ratio} Normal [facility] Comment on above: Performed By: #### C MP #### [facility] [address] [place] [address] Dr. Susannah Hopkins ALP [Catalytic activity/Vol] 71 U/L Normal 46-116 [facility] Comment on above: Performed By: #### C MP #### [facility] [address] [place] [address] Dr. Susannah Hopkins ALT [Catalytic activity/Vol] 19 U/L Normal 14-59 [facility] Comment on above: Performed By: #### C MP #### [facility] [address] [place] [address] Dr. Susannah Hopkins Anion gap [Moles/Vol] 15.1 mmol/L Normal [facility] Comment on above: Performed By: #### C MP #### [facility] [address] [place] [address] Dr. Susannah Hopkins AST [Catalytic activity/Vol] 23 U/L Normal 15-37 [facility] Comment on above: Performed By: #### C MP #### [facility] [address] [place] [address] Dr. Susannah Hopkins Bilirubin [Mass/Vol] 0.9 mg/dL Normal 0.2-1.3 [facility] Comment on above: Performed By: #### C MP #### [facility] [address] [place] [address] Dr. Susannah Hopkins Calcium [Mass/Vol] 9.5 mg/dL Normal 8.5-10.1 [facility] Comment on above: Performed By: #### C MP #### [facility] [address] [place] [address] Dr. Susannah Hopkins Chloride [Moles/Vol] 101 mmol/L Normal 98-107 [facility] Comment on above: Performed By: #### C MP #### [facility] [address] [place] [address] Dr. Susannah Hopkins CO2 [Moles/Vol] 23.8 mmol/L Normal 22.0-30.0 [facility] Comment on above: Performed By: #### C MP #### [facility] [address] [place] [address] Dr. Susannah Hopkins Creatinine [Mass/Vol] 1.04 mg/dL Normal 0.52-1.04 [facility] Comment on above: Performed By: #### C MP #### [facility] [address] [address] [address] Susannah Hopkins EGFR-AF GUAMANIAN >60 Normal >=60 [facility] Comment on above: Performed By: #### C MP #### [facility] [address] [address] [address] Susannah Hopkins EGFR-NON AF GUAMANIAN >60 Normal >=60 [facility] Comment on above: Performed By: #### C MP #### [facility] [address] [address] [address] Susannah Hopkins Globulin (S) [Mass/Vol] 3.9 g/dL Normal [facility] Comment on above: Performed By: #### C MP #### [facility] [address] [place] [address] Dr. Susannah Hopkins Glucose [Mass/Vol] 157 mg/dL Critically high 74-106 [facility] Comment on above: Performed By: #### C MP #### [facility] [address] [address] [address] Susannah Hopkins Potassium [Moles/Vol] 3.9 mmol/L Normal 3.4-5.0 [facility] Comment on above: Performed By: #### C MP #### [facility] [address] [place] [address] Dr. Susannah Hopkins Protein [Mass/Vol] 8.3 g/dL Critically high 6.1-8.2 [facility] Comment on above: Performed By: #### C MP #### [facility] [address] [address] [address] Susannah Hopkins Sodium [Moles/Vol] 136 mmol/L Critically low 137-145 [facility] Comment on above: Performed By: #### C MP #### [facility] [address] [place] [address] Dr. Susannah Hopkins Urea nitrogen [Mass/Vol] 20.0 mg/dL Critically high 7.0-18.0 [facility] Comment on above: Performed By: #### C MP #### [facility] [address] [place], [place] [address] Dr. Susannah Hopkins Urea nitrogen/Creatinine [Mass ratio] 19.2 mg/mg Normal [facility] Comment on above: Performed By: #### C MP #### [facility] [address] [place], [place] [address] Dr. Susannah Hopkins Vital Signs Date Time Vital Sign Value Performing Clinician Facility 10-26-2024 12:05-0400 Body mass index (BMI) [Ratio] 26.93 kg/m2 Rocio Blake DO Work Phone: [facility] 10-26-2024 12:05-0400 Body weight 68.95 kg Rocio Blake DO Work Phone: [facility] 10-26-2024 12:05-0400 Diastolic blood pressure 68 mm[Hg] Rocio Blake DO Work Phone: [facility] 10-26-2024 12:05-0400 Systolic blood pressure 120 mm[Hg] Rocio Blake DO Work Phone: [facility] 08-29-2024 14:34-0400 Body mass index (BMI) [Ratio] 25.65 kg/m2 Rocio Blake DO Work Phone: [facility] 08-29-2024 14:34-0400 Body weight 65.68 kg Rocio Blake DO Work Phone: [facility] 08-29-2024 14:34-0400 Diastolic blood pressure 72 mm[Hg] Rocio Blake DO Work Phone: [facility] 08-29-2024 14:34-0400 Systolic blood pressure 120 mm[Hg] Rocio Blake DO Work Phone: [facility] 08-10-2024 14:55-0400 Body height 160 cm [facility] Nurse [facility] 08-10-2024 14:55-0400 Body mass index (BMI) [Ratio] 25.18 kg/m2 [facility] Nurse [facility] 08-10-2024 14:55-0400 Body weight 64.47 kg [facility] Nurse [facility] 08-10-2024 14:55-0400 Diastolic blood pressure 76 mm[Hg] [facility] Nurse [facility] 08-10-2024 14:55-0400 Systolic blood pressure 120 mm[Hg] Nom Nurse [facility] 05-16-2024 12:44-0500 Body weight 65.32 kg Attila Bundy MD Work Phone: [facility] 05-16-2024 12:44-0500 Diastolic blood pressure 78 mm[Hg] Attila Bundy MD Work Phone: [facility] 05-16-2024 12:44-0500 Systolic blood pressure 120 mm[Hg] Attila Bundy MD Work Phone: [facility] 02-08-2024 15:08-0400 Body weight 66.22 kg Attila Bundy MD Work Phone: [facility] 02-08-2024 15:08-0400 Diastolic blood pressure 68 mm[Hg] Attila Bundy MD Work Phone: [facility] 02-08-2024 15:08-0400 Systolic blood pressure 130 mm[Hg] Attila Bundy MD Work Phone: [facility] 05-12-2023 07:30-0500 Body height 158.75 cm Tyrell Stiles Other [facility] Other 05-12-2023 07:30-0500 Body mass index (BMI) [Ratio] 25.41 kg/m2 Tyrell Stiles Other [facility] Other 05-12-2023 07:30-0500 Body weight 64.05 kg Tyrell Stiles Other [facility] Other 05-12-2023 07:30-0500 Diastolic blood pressure 78 mm[Hg] Tyrell Stiles Other [facility] Other 05-12-2023 07:30-0500 Respiratory rate 16 /min Tyrell Stiles Other [facility] Other 05-12-2023 07:30-0500 SaO2% (BldA) [Mass fraction] 98 % Tyrell Stiles Other [facility] Other 05-12-2023 07:30-0500 Systolic blood pressure 122 mm[Hg] Tyrell Stiles Other [facility] Other 02-24-2023 12:30-0400 Body height 158.75 cm Lisandro Kuns Other [facility] Other 02-24-2023 12:30-0400 Body mass index (BMI) [Ratio] 25.2 kg/m2 Lisandro Kuns Other [facility] Other 02-24-2023 12:30-0400 Body weight 63.5 kg Lisandro Kuns Other [facility] Other 02-24-2023 12:30-0400 Diastolic blood pressure 85 mm[Hg] Lisandro Kuns Other [facility] Other 02-24-2023 12:30-0400 Respiratory rate 16 /min Lisandro Kuns Other [facility] Other 02-24-2023 12:30-0400 SaO2% (BldA) [Mass fraction] 99 % Lisandro Kuns Other [facility] Other 02-24-2023 12:30-0400 Systolic blood pressure 140 mm[Hg] Lisandro Kuns Other [facility] Other Encounters Encounter Date Encounter Type Care Provider Facility Start: 10-26-2024 End: 10-26-2024 ambulatory ROCIO BLAKE Not Available Start: 10-26-2024 End: 10-26-2024 flow sheet Rocio Blake DO Work Phone: [facility] Comment on above: Second trimester pre gnancy ([facility]); 22 weeks gestation of ([facility]); Diabetes mellitus screening Start: 10-26-2024 End: 10-26-2024 ambulatory ROCIO BLAKE Not Available Start: 09-28-2024 End: 09-28-2024 ambulatory NADINE GALVAN Not Available Start: 08-29-2024 End: 08-29-2024 flow sheet Rocio Blake DO Work Phone: [facility] Comment on above: Second trimester pre gnancy; 14 weeks gestation of Start: 08-29-2024 End: 08-29-2024 Bamboo flowsheet Rocio Blake DO Work Phone: [facility] Start: 08-29-2024 End: 08-29-2024 Bamboo flowsheet Rocio Blake DO Work Phone: [facility] Start: 08-29-2024 End: 08-29-2024 Clinisync Result Encounter Rocio Blake DO Work Phone: [facility] Department Unsolicited Start: 08-29-2024 End: 08-29-2024 ambulatory ROCIO BLAKE Not Available Start: 08-10-2024 End: 08-10-2024 Office outpatient visit 5 minutes [facility] Blake Nurse [facility] Comment on above: GA: 11w3d Start: 08-10-2024 End: 08-10-2024 ambulatory ROCIO BLAKE Not Available Start: 07-11-2024 End: 07-11-2024 flow sheet [facility] Nurse [facility] Comment on above: GA: 9w0d Start: 07-11-2024 End: 07-11-2024 ambulatory ROCIO BLAKE Not Available Start: 05-16-2024 End: 05-16-2024 Office outpatient visit 15 minutes Attila Bundy MD Work Phone: [facility] Comment on above: Hormone imbalance (P rimary Dx); Amenorrhea; Missed menses; Family planning; Thyroid disorder screen Start: 05-16-2024 End: 05-16-2024 ambulatory ATTILA BUNDY Not Available Start: 03-30-2024 End: 03-30-2024 ambulatory [facility] Facility: [facility] Start: 02-08-2024 End: 02-08-2024 Patient encounter status Attila Bundy MD Work Phone: [facility] Start: 02-08-2024 End: 02-08-2024 Periodic preventive med est patient 18-39 yrs Attila Bundy MD Work Phone: [facility] Comment on above: Amenorrhea (Primary Dx); Screening for malignant neoplasm of cervix; Encounter for gynecological examination without abnormal finding; Encounter for surveillance of vaginal ring hormonal contraceptive device; Missed menses Start: 02-08-2024 End: 02-08-2024 ambulatory ATTILA BUNDY Not Available Start: 01-24-2024 End: 01-24-2024 ambulatory Facility:[facility] Start: 07-27-2023 End: 07-27-2023 ambulatory [facility] Facility: [facility] Start: 07-05-2023 End: 07-05-2023 ambulatory [facility] Facility: [facility] Start: 05-12-2023 End: 05-12-2023 ambulatory Tyrell Stiles Other [facility] Other Start: 05-12-2023 Office outpatient vi sit 15 minutes Tyrell Stiles [facility] [place] Start: 03-02-2023 End: 03-02-2023 ambulatory Lisandro Buitrago Facility:[facility] Start: 03-02-2023 End: 03-02-2023 ambulatory DO Lisandro Buitrago Work Phone: [facility] Work Phone: Start: 03-02-2023 End: 03-02-2023 Patient encounter procedure DO Lisandro Buitrago Work Phone: [facility] Start: 02-24-2023 End: 02-24-2023 ambulatory Lisandro Buitrago Other [facility] Other Start: 02-24-2023 Encounter for genera l adult medical examination without abnormal findings Lisandro Buitrago [facility] [place] Start: 02-24-2023 Office outpatient ne w 30 minutes Lisandro Buitrago [facility] Start: 07-28-2021 End: 07-28-[address] JANES GARCIA Facility:[facility]1 Procedures Date Procedure Procedure Detail Performing Clinician Start: 10-26-2024 Urnls dip stick/tabl et rgnt non-auto w/o micrscp Rocio Blake DO Work Phone: Start: 08-29-2024 Urnls dip stick/tabl et rgnt non-auto w/o micrscp Rocio Blake DO Work Phone: Start: 08-29-2024 BOX TEST Rocio Fazi o DO Work Phone: Start: 08-10-2024 Urnls dip stick/tabl et rgnt non-auto w/o micrscp Rocio Blake DO Work Phone: Start: 02-08-2024 Urine test visual color cmprsn methapurva Bundy MD Work Phone: Start: 02-08-2024 Cytp cerv/vag auto t hin layer prep mnl screen Rocio Blake DO Work Phone: Start: 03-02-2023 Plain chest X-ray DO Jesse chopramargaux Buitrago Work Phone: Start: 03-02-2023 Plain X-ray of left shoulder DO Lisandro Buitrago Work Phone: Plan of Treatment Date Care Activity Detail Author Start: 01-08-2025 Influenza vaccination Influenz a Vaccine (Season Ended) [facility] Start: 10-26-2024 End: 10-26-2025 CBC panel - Blood by Automated count CBC Lab Routine Diabetes mellitus screening Expected: 10/26/2024 (Approximate), Expires: 10/26/2025 [facility] Work Phone: Comment on above: Expected: 10/26/2024 (Approximate), Expires: 10/26/2025 Start: 10-26-2024 End: 10-26-2025 Measurement of glucose 1 hour after glucose challenge for glucose tolerance test Glucose tolerance, 1 hour Lab Routine Diabetes mellitus screening Expected: 10/26/2024 (Approximate), Expires: 10/26/2025 [facility] Comment on above: Expected: 10/26/2024 (Approximate), Expires: 10/26/2025 Start: 09-27-2024 End: 09-27-2024 Patient encounter procedure 09/27/2024 3:30 PM EDT Routine [facility] [address] [place] [id number] Nadine Galvan PA [address] [place] [address] [facility] Start: 08-29-2024 End: 08-29-2024 Patient encounter procedure [facility] Comment on above: Arrived Start: 07-27-2024 End: 07-27-2024 ambulatory 07/27/2024 10:30 AM EDT Initial [facility] [address] [place] [address] Attila Bundy MD [address] [place] [address] [facility] Start: 07-17-2024 End: 07-17-2024 Patient encounter procedure 07/17/2024 12:30 PM EDT Office Visit [facility] [address] [place] [address] Attila Bundy MD [address] [place], [place] [id number] [facility] Start: 07-17-2024 End: 07-17-2024 Professional / ancillary services management 07/17/2024 8:30 AM EDT Ancillary Procedure [facility] [address] [place] [id number] [facility] Start: 07-11-2024 End: 07-11-2025 Bacteria identified in Urine by Culture Urine culture Microbiology Routine Encounter for supervision of normal first in first trimester Expected: 07/11/2024, Expires: 07/11/2025 [facility] Comment on above: Expected: 07/11/2024 , Expires: 07/11/2025 Start: 07-11-2024 End: 07-11-2025 BEACON CARRIER SCREEN;14 GENES BEACON CARRIER SCREEN;14 GENES Lab Routine Screening for genetic disease carrier status Expected: 07/11/2024 (Approximate), Expires: 07/11/2025 [facility] Comment on above: Expected: 07/11/2024 (Approximate), Expires: 07/11/2025 Start: 07-11-2024 End: 07-11-2025 Blood type and Indirect antibody screen panel - Blood Type and screen Lab Routine Encounter for supervision of normal first in first trimester Expected: 07/11/2024, Expires: 07/11/2025 [facility] Comment on above: Expected: 07/11/2024 , Expires: 07/11/2025 Start: 07-11-2024 End: 07-11-2025 CBC W Auto Differential panel - Blood CBC and differential Lab Routine Encounter for supervision of normal first in first trimester Expected: 07/11/2024, Expires: 07/11/2025 [facility] Comment on above: Expected: 07/11/2024 , Expires: 07/11/2025 Start: 07-11-2024 End: 07-11-2025 DRUG SCREEN 17 W/CONF, UR DRUG SCREEN 17 W/CONF, UR Lab Routine Encounter for drug screening Expected: 07/11/2024, Expires: 07/11/2025 [facility] Comment on above: Expected: 07/11/2024 , Expires: 07/11/2025 Start: 07-11-2024 End: 07-11-2025 Hepatitis B virus surface Ag [Presence] in Serum or Plasma by Immunoassay Hepatitis B surface antigen Lab Routine Encounter for supervision of normal first in first trimester Expected: 07/11/2024, Expires: 07/11/2025 [facility] Comment on above: Expected: 07/11/2024 , Expires: 07/11/2025 Start: 07-11-2024 End: 07-11-2025 Hepatitis C virus Ab [Presence] in Serum or Plasma by Immunoassay Hepatitis C antibody Lab Routine Encounter for supervision of normal first in first trimester Expected: 07/11/2024, Expires: 07/11/2025 [facility] Comment on above: Expected: 07/11/2024 , Expires: 07/11/2025 Start: 07-11-2024 End: 07-11-2025 HIV-1/HIV-2 antigen/antibody combination immunoassay HIV-1 and HIV-2 antibodies Lab Routine Encounter for supervision of normal first in first trimester Expected: 07/11/2024, Expires: 07/11/2025 [facility] Comment on above: Expected: 07/11/2024 , Expires: 07/11/2025 Start: 07-11-2024 End: 07-11-2025 [id number] PLUS Core+SCA [id number] PLUS Core+SCA Lab Routine Encounter for screening for chromosomal anomalies Expected: 07/11/2024 (Approximate), Expires: 07/11/2025 [facility] Comment on above: Expected: 07/11/2024 (Approximate), Expires: 07/11/2025 Start: 07-11-2024 End: 07-11-2025 Reagin Ab [Presence] in Serum by RPR RPR Lab Routine Encounter for supervision of normal first in first trimester Expected: 07/11/2024, Expires: 07/11/2025 [facility] Comment on above: Expected: 07/11/2024 , Expires: 07/11/2025 Start: 07-11-2024 End: 07-11-2025 Rubella antibody, IgG Rubella antibody, IgG Lab Routine Encounter for supervision of normal first in first trimester Expected: 07/11/2024, Expires: 07/11/2025 [facility] Comment on above: Expected: 07/11/2024 , Expires: 07/11/2025 Start: 07-11-2024 End: 07-11-2025 Urinalysis complete panel - Urine Urinalysis with microscopic Lab Routine Encounter for supervision of normal first in first trimester Expected: 07/11/2024, Expires: 07/11/2025 [facility] Work Phone: Comment on above: Expected: 07/11/2024 , Expires: 07/11/2025 Start: 05-16-2024 End: 05-16-2025 Cortisol Cortisol Lab Routine Hormone imbalance Expected: 05/16/2024, Expires: 05/16/2025 [facility] Comment on above: Expected: 05/16/2024 , Expires: 05/16/2025 Start: 05-16-2024 End: 05-16-2025 DHEA-sulfate DHEA-sulfate Lab Routine Hormone imbalance Expected: 05/16/2024, Expires: 05/16/2025 [facility] Comment on above: Expected: 05/16/2024 , Expires: 05/16/2025 Start: 05-16-2024 End: 05-16-2025 Estradiol Estradiol Lab Routine Hormone imbalance Expected: 05/16/2024, Expires: 05/16/2025 [facility] Comment on above: Expected: 05/16/2024 , Expires: 05/16/2025 Start: 05-16-2024 End: 05-16-2025 Estrone Estrone Lab Routine Hormone imbalance Expected: 05/16/2024, Expires: 05/16/2025 [facility] Comment on above: Expected: 05/16/2024 , Expires: 05/16/2025 Start: 05-16-2024 End: 05-16-2025 Follicle stimulating hormone Follicle stimulating hormone Lab Routine Hormone imbalance Thyroid disorder screen Expected: 05/16/2024, Expires: 05/16/2025 [facility] Comment on above: Expected: 05/16/2024 , Expires: 05/16/2025 Start: 05-16-2024 End: 05-16-2025 Insulin, fasting Insulin, fasting Lab Routine Amenorrhea Missed menses Hormone imbalance Expected: 05/16/2024, Expires: 05/16/2025 [facility] Comment on above: Expected: 05/16/2024 , Expires: 05/16/2025 Start: 05-16-2024 End: 05-16-2025 Luteinizing hormone Luteinizing hormone Lab Routine Hormone imbalance Thyroid disorder screen Expected: 05/16/2024, Expires: 05/16/2025 [facility] Comment on above: Expected: 05/16/2024 , Expires: 05/16/2025 Start: 05-16-2024 End: 05-16-2025 Progesterone Progesterone Lab Routine Hormone imbalance Expected: 05/16/2024, Expires: 05/16/2025 [facility] Comment on above: Expected: 05/16/2024 , Expires: 05/16/2025 Start: 05-16-2024 End: 05-16-2025 Sex hormone binding globulin Sex hormone binding globulin Lab Routine Hormone imbalance Expected: 05/16/2024, Expires: 05/16/2025 [facility] Comment on above: Expected: 05/16/2024 , Expires: 05/16/2025 Start: 05-16-2024 End: 05-16-2025 Testosterone, free, total Testosterone, free, total Lab Routine Hormone imbalance Expected: 05/16/2024, Expires: 05/16/2025 [facility] Comment on above: Expected: 05/16/2024 , Expires: 05/16/2025 Start: 05-16-2024 End: 05-16-2025 Thyrotropin [Units/volume] in Serum or Plasma TSH Lab Routine Hormone imbalance Thyroid disorder screen Expected: 05/16/2024, Expires: 05/16/2025 [facility] Work Phone: Comment on above: Expected: 05/16/2024 , Expires: 05/16/2025 Start: 05-16-2024 End: 05-16-2025 Vitamin D 1,25 dihydroxy Vitamin D 1,25 dihydroxy Lab Routine Hormone imbalance Expected: 05/16/2024, Expires: 05/16/2025 [facility] Comment on above: Expected: 05/16/2024 , Expires: 05/16/2025 Start: 05-16-2024 End: 05-16-2024 Patient encounter procedure 05/16/2024 12:30 PM EST Office Visit [facility] [address] [place] [address] Attila Bundy MD [address] [facility] [address] [place] [address] [facility] Start: 02-08-2024 End: 02-07-2025 Follicle stimulating hormone Follicle stimulating hormone Lab Routine Amenorrhea Expected: 02/08/2024 (Approximate), Expires: 02/07/2025 [facility] Comment on above: Expected: 02/08/2024 (Approximate), Expires: 02/07/2025 Start: 01-09-2024 Influenza vaccination Influenza Vacc ine (#1) [facility] hCG, qualitative hCG, qualitativ e Lab Routine Amenorrhea Ordered: 02/08/2024 [facility] Comment on above: Ordered: 02/08/2024 Hemoglobin A1c/Hemoglobin.total in Blood Hemoglobin A1c Lab Routine with uncertain dates, antepartum Ordered: 08/10/2024 [facility] Work Phone: Comment on above: Ordered: 08/10/2024 Luteinizing hormone Luteinizing hormone Lab Routine Amenorrhea Ordered: 02/08/2024 [facility] Comment on above: Ordered: 02/08/2024 Progesterone Progesterone Lab Routine Amenorrhea Ordered: 02/08/2024 [facility] Comment on above: Ordered: 02/08/2024 SENDOUT TEST MISCELLANEOUS [facility] SENDOUT TEST MISCELLANEOUS [facility] Lab Routine Screening for malignant neoplasm of cervix Encounter for gynecological examination without abnormal finding Ordered: 02/08/2024 [facility] Work Phone: Comment on above: Ordered: 02/08/2024 Testosterone, free, total Testosterone, free, total Lab Routine Amenorrhea Ordered: 02/08/2024 [facility] Comment on above: Ordered: 02/08/2024 Immunizations Immunization Date Immunization Notes Care Provider Fa [email or web address] 09-25-2020 COVID-19 Vaccine Moderna - Documentation Purposes Only Lisandro Buitrago Other [facility] Other 08-21-2020 COVID-19 Vaccine Moderna - Documentation Purposes Only Lisandro Buitrago Other [facility] Other Payers Date Payer Category Payer Private Health Insurance [id number] 2023 Private Health Insurance [id number] 2023 Unknown [id number]. [id number] 1995 Unknown [id number] 2.16.84 [id number] 1995 Unknown [id number] 2.16.8 [id number] 1995 Unknown [id number] 2.16.8 [id number] 1995 Unknown [id number] 2.16.8 [id number] 1995 Unknown [id number] 2.16.8 [id number] 1995 Unknown [id number] 2.16.8 [id number] 1995 Unknown [id number] 2.16.84 [id number] 1995 Unknown [id number] 2.16.84 [id number] 1995 Unknown [id number] 2.16.84 [id number] 1995 Unknown [id number] 2.16.84 [id number] 1995 Unknown [id number] 2.16.84 [id number] 1995 Unknown [id number] 2.16.84 [id number] 1995 Unknown [id number] 2.16.84 [id number] 1959 Self-pay Unknown MMO [id number] Unknown [id number] 2.16.8 [id number] Social History Date Type Detail Facility Start: 02-08-2024 End: 05-16-2024 Sex Assigned At [facility] Other Start: 1995 Sex Assigned At Female F [facility] Start: 05-15-20[address] [facility] Start: 05-15-2023 Tobacco use and exposure Smokeless tobacco non-user [facility] Start: 02-08-2024 Alcoholic beverage intake Current drinker of alcohol (finding) [facility] Start: 02-08-2024 End: 05-16-2024 History of Social function [facility] How often to you hav e a drink containing alcohol? Monthly or less [facility] How many standard drinks containing alcohol do you have on a typical day? 1 or 2 [facility] How often do you hav e 6 or more drinks on 1 occasion? Less than monthly [facility] Start: 1995 Sex assigned at Not on file [facility] Start: 05-16-2024 End: 10-26-2024 Alcoholic beverage intake Ex-drinker (finding) [facility] Start: 07-11-2024 Alcohol Comment caffeine intake: rar e [facility] Start: 05-23-2024 [facility] Goals Date Patient Goal Desired Activity /State Personal health goal Clinical Notes 02-24-2023 to 10-26-2024 Azeb Gonzalez MA - 10/26/2024 11:50 AM Elton Borrego LPN - 08/29/2024 2:10 PM Olivia Jacinto LPN - 08/10/2024 2:00 PM Breann Ayala RN - 07/11/2024 9:30 AM ESTPatient Instructions Note Date & Type Note Facility 10-26-2024 History of Presen t illness Narrative Reason for Appointment: Patient ID: Alondra Carlos is a 28 y.o. female who presents for Routine Visit Patient presents today for Return OB appointment. MEDICATIONS Current Outpatient Medications Medication Instructions Vit-Fe Fumarate-FA ( PO) Take by mouth ALLERGIES No Known Allergies PROBLEMS Active Ambulatory Problems Diagnosis Date Noted No Active Ambulatory Problems Resolved Ambulatory Problems Diagnosis Date Noted No Resolved Ambulatory Problems Past Medical History: Diagnosis Date H/O herpes simplex infection HPV (human papilloma virus) infection Vaccine for VZV (varicella-zoster virus) HISTORY PAST MEDICAL HISTORY SOCIAL HISTORY Past Medical History: Diagnosis Date H/O herpes simplex infection Patient voiced at appt on 08/10/2024 that she had infection in the past HPV (human papilloma virus) infection history Vaccine for VZV (varicella-zoster virus) Social History Tobacco Use Smoking status: Never Smokeless tobacco: Never Vaping Use Vaping status: Never Used Substance Use Topics Alcohol use: Not Currently Comment: caffeine intake: rare Drug use: Never FAMILY HISTORY Family History Problem Relation Name Age of Onset Hypothyroidism Mother Esmer Sanches Polycystic ovary syndrome Mother Esmer Sanches Thyroid disease Mother Esmer Sanches Polycystic ovary syndrome Sister Breast cancer Maternal Grandmother Maricarmen Potts Hypothyroidism Maternal Grandfather Kwan Potts Thyroid disease Maternal Grandfather Kwan Welchy Breast cancer Paternal Grandmother Gilda Sanches Lung cancer Paternal Grandmother Gilda Felixp Colon cancer Paternal Grandfather Skyler Felixp Cancer Paternal Grandfather Skyler Sanches SURGICAL HISTORY Past Surgical History: Procedure Laterality Date WISDOM TOOTH EXTRACTION REVIEW OF SYSTEMS Review of Systems: Review of Systems Constitutional: Negative. HENT: Negative. Eyes: Negative. Respiratory: Negative. Cardiovascular: Negative. Gastrointestinal: Negative. Genitourinary: Negative. Musculoskeletal: Negative. Skin: Negative. Neurological: Negative. All other systems reviewed and are negative. Hematological: Negative. Endocrine: Negative. Allergic/Immunologic: Negative. OBJECTIVE Objective: Physical Exam Constitutional: Appearance: Normal appearance. She is normal weight. HENT: Head: Normocephalic. Cardiovascular: Rate and Rhythm: Normal rate. Pulses: Normal pulses. Pulmonary: Effort: Pulmonary effort is normal. Breath sounds: Normal breath sounds. Abdominal: Palpations: Abdomen is soft. Musculoskeletal: General: Normal range of motion. Neurological: General: No focal deficit present. Mental Status: She is alert and oriented to person, place, and time. Psychiatric: Mood and Affect: Mood normal. Behavior: Behavior normal. Thought Content: Thought content normal. Judgment: Judgment normal. Vitals and nursing note reviewed. Vitals: Estimated body mass index is 26.93 kg/m as calculated from the following: Height as of 08/10/24: 5' 3 . Weight as of this encounter: 152 lb. BP: 120/68 Patient's last menstrual period was 05/09/2024 (exact date). ASSESSMENT & PLAN ICD-10-CM 1. Second trimester ([facility]) Z34.92 POCT urinalysis dipstick manually resulted 2. 22 weeks gestation of ([facility]) Z3A.22 3. Diabetes mellitus screening Z13.1 CBC Glucose tolerance, 1 hour CBC Glucose tolerance, 1 hour Return OB: Patient presents today for a routine obstetrics appointment. Patient is currently 22w3d . Patient states she is doing well but has complaints of being tired due to current . Patient has verbalizes frequent movement. Orders Placed This Encounter Procedures CBC Glucose tolerance, 1 hour POCT urinalysis dipstick manually resulted Follow Up: Patient is to return to office in 3 week for routine OB appointment. Documented by Azeb Gonzalez MA on behalf of: Rocio Lozano DO documented in this encounter [facility] 08-29-2024 History of Presen t illness Narrative Reason for Appointment: Patient ID: Alondra Carlos is a 28 y.o. female who presents for Routine Visit Patient presents today for Return OB appointment. MEDICATIONS Current Outpatient Medications Medication Instructions Vit-Fe Fumarate-FA ( PO) Take by mouth ALLERGIES No Known Allergies PROBLEMS Active Ambulatory Problems Diagnosis Date Noted No Active Ambulatory Problems Resolved Ambulatory Problems Diagnosis Date Noted No Resolved Ambulatory Problems Past Medical History: Diagnosis Date H/O herpes simplex infection HPV (human papilloma virus) infection Vaccine for VZV (varicella-zoster virus) HISTORY PAST MEDICAL HISTORY SOCIAL HISTORY Past Medical History: Diagnosis Date H/O herpes simplex infection Patient voiced at appt on 08/10/2024 that she had infection in the past HPV (human papilloma virus) infection history Vaccine for VZV (varicella-zoster virus) Social History Tobacco Use Smoking status: Never Smokeless tobacco: Never Vaping Use Vaping status: Never Used Substance Use Topics Alcohol use: Not Currently Comment: caffeine intake: rare Drug use: Never FAMILY HISTORY Family History Problem Relation Name Age of Onset Hypothyroidism Mother Esmer Sanches Polycystic ovary syndrome Mother Esmer Sanches Thyroid disease Mother Esmer Sanches Polycystic ovary syndrome Sister Breast cancer Maternal Grandmother Maricarmen Potts Hypothyroidism Maternal Grandfather Kwan Potts Thyroid disease Maternal Grandfather Kwan Potts Breast cancer Paternal Grandmother Gilda Sanches Lung cancer Paternal Grandmother Gilda Sanches Colon cancer Paternal Grandfather Skyler Sanches Cancer Paternal Grandfather Skyler Sanches SURGICAL HISTORY Past Surgical History: Procedure Laterality Date WISDOM TOOTH EXTRACTION REVIEW OF SYSTEMS Review of Systems: Review of Systems Constitutional: Negative. HENT: Negative. Eyes: Negative. Respiratory: Negative. Cardiovascular: Negative. Gastrointestinal: Negative. Genitourinary: Negative. Musculoskeletal: Negative. Skin: Negative. Neurological: Negative. All other systems reviewed and are negative. Hematological: Negative. Endocrine: Negative. Allergic/Immunologic: Negative. OBJECTIVE Objective: Physical Exam Constitutional: Appearance: Normal appearance. She is well-developed. Cardiovascular: Rate and Rhythm: Normal rate and regular rhythm. Pulmonary: Effort: Pulmonary effort is normal. Breath sounds: Normal breath sounds. Abdominal: General: Bowel sounds are normal. There is no distension. Palpations: Abdomen is soft. Tenderness: There is no abdominal tenderness. There is no guarding or rebound. Musculoskeletal: General: No swelling. Normal range of motion. Right lower leg: No edema. Left lower leg: No edema. Neurological: Mental Status: She is alert and oriented to person, place, and time. Skin: General: Skin is warm and dry. Psychiatric: Mood and Affect: Mood normal. Behavior: Behavior normal. Vitals and nursing note reviewed. Exam conducted with a dynamometer tuner present. Vitals: Estimated body mass index is 25.18 kg/m as calculated from the following: Height as of 08/10/24: 5' 3 . Weight as of 08/10/24: 142 lb 1.9 oz. BP: Patient's last menstrual period was 05/09/2024 (exact date). ASSESSMENT & PLAN ICD-10-CM 1. Second trimester Z34.92 POCT urinalysis dipstick manually resulted 2. 14 weeks gestation of Z3A.14 New OB: Patient presents today for 1st time obstetrics appointment with provider. Patient is currently 14w1d . Patients history has been reviewed in great detail including any potential risks. Patient stated she currently has no complaints. Expectations throughout regarding labs, ultrasounds, and appointments have been discussed with the patient in detail. It was reiterated that the patient is to drink 6-8 glasses of water a day, eat 6 small meals a day, do not consume raw or undercooked meat, [facility] Patient has been consulted regarding any further do's and don'ts of . Patient voiced understanding and all questions and concerns were answered. Orders Placed This Encounter Procedures POCT urinalysis dipstick manually resulted Follow Up: Patient is to return in 4 weeks for routine OB appointment. Documented by Zita Borrego LPN on behalf of: Rocio Lozano DO documented in this encounter [facility] 08-10-2024 History of Presen t illness Narrative Reason for Appointment: Patient ID: Alondra Carlos is a 28 y.o. female who presents for Amenorrhea Patient presents today for a Nurse OB Intake appointment. Patient is 11w3d with a Estimated Date of Delivery: 02/26/25 OB History Para Term AB Living 1 0 0 0 0 0 SAB IAB Ectopic Multiple Live Births 0 0 0 0 0 # Outcome Date GA Lbr Jalil/2nd Weight Sex Type Anes PTL Lv 1 Current Current Medications: has a current medication list which includes the following prescription(s): vit-fe fumarate-fa. Medical History: Active Ambulatory Problems Diagnosis Date Noted No Active Ambulatory Problems Resolved Ambulatory Problems Diagnosis Date Noted No Resolved Ambulatory Problems Past Medical History: Diagnosis Date H/O herpes simplex infection HPV (human papilloma virus) infection Vaccine for VZV (varicella-zoster virus) Family History Problem Relation Name Age of Onset Hypothyroidism Mother Esmer Walp Polycystic ovary syndrome Mother Esmer Walp Thyroid disease Mother Esmer Walp Polycystic ovary syndrome Sister Breast cancer Maternal Grandmother Maricarmen Swiney Hypothyroidism Maternal Grandfather Kwan Swiney Thyroid disease Maternal Grandfather Kwan Swiney Breast cancer Paternal Grandmother Gilda Walp Lung cancer Paternal Grandmother Gilda Sanches Colon cancer Paternal Grandfather Skyler Sanches Cancer Paternal Grandfather Skyler Sanches Social History Tobacco Use Smoking status: Never Smokeless tobacco: Never Vaping Use Vaping status: Never Used Substance Use Topics Alcohol use: Not Currently Comment: caffeine intake: rare Drug use: Never Past Surgical History: Procedure Laterality Date WISDOM TOOTH EXTRACTION No Known Allergies Vitals: Estimated body mass index is 25.18 kg/m as calculated from the following: Height as of this encounter: 5' 3 . Weight as of this encounter: 142 lb 1.9 oz. BP: 120/76 Patient's last menstrual period was 05/09/2024 (exact date). Assessment/Plan Diagnoses and all orders for this visit: with uncertain dates, antepartum - Hemoglobin A1c - POCT urinalysis dipstick manually resulted - POCT , urine manually resulted Nurse Note: OB Intake: Patient presents today for first OB visit. Patients history has been reviewed in great detail including any potential risks. Patient signed consent forms and patient desires testing in both trimesters. Patient currently has no complaints and has been advised to drink 6-8 glasses of water a day, eat no raw or undercooked meat, and [facility] Patient has also been advised to not change litter boxes and eat 6 small meals a day. Patient has been consulted regarding the do's and don'ts of . Patient was given labs and all questions and concerns were answered. Patient was given [place] labs to be completed with Hgb A1C. Follow Up: Patient is to return in 4 weeks for routine OB appointment. Follow Up: Patient is to have labs drawn at directed and return to office for initial OB appointment with provider. Patient may call office as needed with any concerns or questions. Nurse Visit Completed by: Domenica Jacinto LPN documented in this encounter [facility] 07-11-2024 History of Presen t illness Narrative Name: Alondra Carlos Date/Time of Service:07/11/2024 10:03 AM :1995 Age: 28 y.o. Chief Complaint Chief Complaint Patient presents with Initial Visit Nurse Visit Alondra Carlos is a 28 y.o. at 9w0d with a working estimated date of delivery of 02/13/2025, by Last Menstrual Period who presents for an initial visit. OB History Para Term AB Living 1 0 0 0 0 0 SAB IAB Ectopic Multiple Live Births 0 0 0 0 0 # Outcome Date GA Lbr Jalil/2nd Weight Sex Type Anes PTL Lv 1 Current Past Medical / Surgical History Past Medical History: Diagnosis Date HPV (human papilloma virus) infection history Vaccine for VZV (varicella-zoster virus) Past Surgical History: Procedure Laterality Date WISDOM TOOTH EXTRACTION Family History Family History Problem Relation Name Age of Onset Hypothyroidism Mother Esmer Sanches Polycystic ovary syndrome Mother Esmer Walshane Thyroid disease Mother Esmer Sanches Polycystic ovary syndrome Sister Breast cancer Maternal Grandmother Maricarmen Potts Hypothyroidism Maternal Grandfather Kwan Welchy Thyroid disease Maternal Grandfather Kwan Welchy Breast cancer Paternal Grandmother Gilda Felixp Lung cancer Paternal Grandmother Gilda Felixp Colon cancer Paternal Grandfather Skyler Felixp Cancer Paternal Grandfather Skyler Sanches Social History reports that she has never smoked. She has never used smokeless tobacco. She reports that she does not currently use alcohol. She reports that she does not use drugs. MEDICATIONS: Current Outpatient Medications on File Prior to Visit Medication Sig Dispense Refill Vit-Fe Fumarate-FA ( PO) Take by mouth No current facility-administered medications on file prior to visit. Allergies No Known Allergies Patient reports nausea and no vomiting. Discussed smaller meals, liset products, OTC Vitamin B6 50mg BID and Unisom 25mg BID. Patient reports taking a daily PNV Genetic and Chromosomal testing discussed. Patient to discuss at first appt with [facility] if interested. Last PAP: 02/08/2024 negative ASSESSMENT / PLAN Labs Ordered to [facility]. Provided patient with printed orders, states she will complete these today. Appointments scheduled for 07/17/24 with [facility] and 07/27/24 with [facility]. Jennifer Ayala RN 07/11/2024 10:03 AM documented in this encounter [facility] 05-16-2024 History of Presen t illness Narrative Images from the original note were not included. Attila Bundy MD Obstetrics and Gynecology Patient: Alondra Carlos : 1995 (28 y.o.) Exam Date: 05/16/2024 Reason for Visit - Chief Complaint Patient presents with Follow-up Follow up for Amenorrhea, missed menses, and family planning. Stopped EluRyng in 10/2023. METALSMITH 04/03 LMP 05/09 Ovulatory 04/30 Patient did start her menses on 05/09 and has had 2 since discontinuing her ring The patient reports having her last period starting on the and has had two periods since discontinuing her contraceptive ring in October. She is currently considering . The patient has been tracking her ovulation using ovulation predictor kits and reported a surge on the 30 of April. She is still experiencing some bleeding from her current period, which she finds unusual. The patient is unsure about her menstrual cycle history prior to using the contraceptive ring. She has been testing for ovulation every other day and plans to continue tracking her cycle out of curiosity. She has not noticed significant cervical mucus during her cycle and is interested in learning more about tracking her basal body temperature. The patient is not in a hurry to conceive and prefers a natural approach to conception. She is open to gathering more information about her body and cycle to better understand her fertility. Visit Vitals OB Status No Periods Smoking Status Never History of Present Illness, Associated Treatments and Results - OB History Para Term AB Living 0 0 0 0 0 0 SAB IAB Ectopic Multiple Live Births 0 0 0 0 0 Constitutional: Negative. HENT: Negative. Eyes: Negative. Respiratory: Negative. Cardiovascular: Negative. Gastrointestinal: Negative. Endocrine: Negative. Genitourinary: Negative. Musculoskeletal: Negative. Skin: Negative. Allergic/Immunologic: Negative. Neurological: Negative. Hematological: Negative. Psychiatric/Behavioral: Negative. No Known Allergies Current Outpatient Medications: EluRyng 0.12-0.015 MG/24HR vaginal ring, INSERT 1 RING VAGINALLY, LEAVE IN FOR 21 DAYS THEN REMOVE FOR 1 WEEK. REPEAT MONTHLY, Disp: , Rfl: No past medical history on file. Past Surgical History: Procedure Laterality Date WISDOM TOOTH EXTRACTION Family History Problem Relation Name Age of Onset Hypothyroidism Mother Polycystic ovary syndrome Mother Polycystic ovary syndrome Sister Breast cancer Maternal Grandmother Hypothyroidism Maternal Grandfather Breast cancer Paternal Grandmother Lung cancer Paternal Grandmother Colon cancer Paternal Grandfather Social History Tobacco Use Smoking Status Never Smokeless Tobacco Never Physical Exam - General appearance, mentation, extraocular movements, facial strength and movement, hearing, upper and lower extremity strength and tone, sensation to gross testing, coordination, and gait are normal or at baseline unless noted below. Physical Exam Constitutional: Appearance: Normal appearance. HENT: Head: Normocephalic and atraumatic. Neurological: Mental Status: She is alert and oriented to person, place, and time. Psychiatric: Mood and Affect: Mood normal. Behavior: Behavior normal. Exam conducted with a dynamometer tuner present. Assessment/Plan ICD-10-CM 1. Amenorrhea N91.2 2. Missed menses N92.6 3. Family planning Z30.09 1. Irregular menstrual cycles and possible short luteal phase: - Plan: a) Continue tracking ovulation using ovulation predictor kits (OPKs) daily after the end of the period. b) Begin tracking basal body temperature (BBT) daily upon waking, before any activity or oral intake. c) Monitor for changes in cervical mucus consistency and quantity. d) Schedule a follow-up appointment in 8 weeks to review progress and discuss any concerns. 2. Possible luteal phase defect: - Plan: a) Provide patient with educational materials on luteal phase defect for informational purposes. b) If luteal phase defect is confirmed in future cycles, consider Clomid treatment as needed. c) Encourage patient to maintain a healthy lifestyle and manage stress levels to support natural fertility. 3. Hormone evaluation: - Plan: a) Schedule lab work on cycle day 21 to assess hormone levels and overall reproductive health. b) Discuss results during the follow-up appointment or via televisit as needed. 4. Patient education and support: - Plan: a) Encourage patient to continue learning about her body and fertility through tracking and self-education. b) Offer guidance and support throughout the process, addressing any questions or concerns as they arise. c) Reassure patient that there is no immediate escobar for conception and that understanding her body's natural patterns is a valuable step in the process. documented in this encounter [facility] 05-16-2024 Instructions Attila Bundy MD - 05/16/2024 12:30 PM EST Images from the original note were not included. Luteal Phase Defect: How Does It Affect ? Medically Reviewed by Kristyn Salcedo MD on May 31, 2023Written by Aracely Gaona Luteal Phase Defect Causes of Luteal Phase Defect Symptoms of Luteal Phase Defect Luteal Phase Defect Diagnosis 5 min read If it's hard for you to get or carry your to term, one of the possible reasons could be a luteal phase defect, or a defective luteal phase. It's a condition that prevents your uterus lining from thickening as much as it needs to for a . However, there's debate about whether luteal phase defect is a direct cause of infertility, and there's no way to test if it is. In most people, the luteal phase lasts 12 to 14 days. If yours is shorter, your ovaries may not make enough progesterone needed for a . (Photo Credit: [employer]+/[employer]) Luteal Phase Defect The luteal phase is one of the natural stages of your menstrual cycle. It happens right after ovulation (when your ovaries release an egg) and before your period starts. The average luteal phase length is 12-14 days. If you get your period every 28 days, your luteal phase would probably start around day 15. But everyone's cycle is slightly different. A luteal phase of 10-17 days is also considered normal. The whole point of this menstrual stage is to get your body ready for . To do that, hormones in the luteal phase, especially a sex hormone called progesterone, play an important part. Your ovaries produce progesterone, which helps develop the lining of your uterus so a fertilized egg can attach to it. In the luteal phase, cervical mucus thickens and becomes paste-like to keep bacteria from getting inside your uterus in the event of a . But if there isn't a fertilized egg and you don't get , your progesterone levels dip. The lining of your uterus sheds, and you have a period. Some common signs that you're in your luteal phase include: Sore breasts Mood swings Bloating Breaking out (acne) Feeling hungrier or less hungry than usual Thickened vaginal discharge If your ovaries don't release enough progesterone, or if the lining of your uterus doesn't respond well to this hormone, the lining of your uterus won't grow properly each month. This is called a luteal phase defect. It could make getting or staying a challenge, but there's still a lot that isn't yet understood about it. Causes of Luteal Phase Defect Doctors still don't know what causes a luteal phase defect. Many people diagnosed with it have very short luteal phases that last less than 10 days, so that could play a part. However, many people with short luteal phases are able to get and carry their baby to term. Luteal phase defect has been linked to: Stress Eating disorders such as anorexia Endometriosis Extreme amounts of exercise Hyperprolactinemia (too much of a hormone that's responsible for making breast milk) Obesity Polycystic ovary syndrome Thyroid disorders Issues with your pituitary gland Extreme weight loss Aging Some fertility treatments Smoking tobacco RELATED:Young Early Breast Cancer Survivors and Fertility Symptoms of Luteal Phase Defect If you have a luteal phase defect, you may notice: More frequent periods Spotting (bleeding) between periods A rise in your basal body temperature (your resting temperature) after ovulation You could also find it a challenge to get or stay . Luteal Phase Defect Diagnosis It may be hard for your doctor to pinpoint luteal phase defect as the source of a fertility issue. Doctors don't agree on how to diagnose this condition, and there's no single test that can do so. Your doctor will probably suggest lab work that can help figure out what's happening inside your body. For instance, blood tests can check your levels of: Follicle-stimulating hormone (FSH), which causes egg-containing follicles to grow each month Luteinizing hormone (LH), which signals the egg to be released from the follicles Progesterone and estrogen, hormones that help thicken and prepare your uterine lining A pelvic ultrasound is an imaging test that can help your doctor measure the thickness of the lining of your uterus. In the past, your doctor may have done a series of endometrial biopsies. They would have removed a small sample of your uterus lining at a specific time of the month and looked at it under a microscope to see if you're in phase or not. This is no longer done. It's important to note that everyone has luteal phase changes from time to time. As an endometrial biopsy can't tell if you're fertile or infertile, it's not recommended as a routine infertility test. documented in this encounter [facility] 02-08-2024 History of Presen t illness Narrative Images from the original note were not included. Attila Bundy MD Obstetrics and Gynecology Patient: Alondra Carlos : 1995 (28 y.o.) Yearly Wellness Exam Date: 02/08/2024 Reason for Visit - Chief Complaint Patient presents with Gynecologic Exam LMP: 12/01/23- has not had a menses since removing Nuvaring Last Pap: 2021 Complaints: Patient on EluRyng stopped in October, and has not had menses since November. Is considering family planning Stopped ring 11/25 Visit Vitals Smoking Status Never History of Present Illness, Associated Treatments and Results - OB History No obstetric history on file. Review of Systems - Constitutional: Negative. HENT: Negative. Eyes: Negative. Respiratory: Negative. Cardiovascular: Negative. Gastrointestinal: Negative. Endocrine: Negative. Genitourinary: Negative. Musculoskeletal: Negative. Skin: Negative. Allergic/Immunologic: Negative. Neurological: Negative. Hematological: Negative. Psychiatric/Behavioral: Negative. No Known Allergies Current Outpatient Medications: EluRyng 0.12-0.015 MG/24HR vaginal ring, INSERT 1 RING VAGINALLY, LEAVE IN FOR 21 DAYS THEN REMOVE FOR 1 WEEK. REPEAT MONTHLY, Disp: , Rfl: No past medical history on file. No past surgical history on file. No family history on file. Social History Tobacco Use Smoking Status Never Smokeless Tobacco Never Physical Exam - General appearance, mentation, extraocular movements, facial strength and movement, hearing, upper and lower extremity strength and tone, sensation to gross testing, coordination, and gait are normal or at baseline unless noted below. Physical Exam Constitutional: Appearance: Normal appearance. Genitourinary: Right Labia: No rash or lesions. Left Labia: No lesions or rash. No vaginal discharge or erythema. No vaginal prolapse present. No vaginal atrophy present. Right Adnexa: not tender and no mass present. Left Adnexa: not tender and no mass present. No cervical lesion. Uterus is not tender. Uterus is anteverted. Breasts: Right: Normal. No mass or nipple discharge. Left: Normal. No mass or nipple discharge. HENT: Head: Normocephalic and atraumatic. Cardiovascular: Rate and Rhythm: Normal rate and regular rhythm. Pulmonary: Breath sounds: Normal breath sounds. Abdominal: General: There is no distension. Palpations: Abdomen is soft. There is no mass. Tenderness: There is no abdominal tenderness. Musculoskeletal: General: Normal range of motion. Cervical back: Neck supple. Lymphadenopathy: Cervical: No cervical adenopathy. Neurological: Mental Status: She is alert and oriented to person, place, and time. Skin: General: Skin is warm and dry. Psychiatric: Mood and Affect: Mood normal. Assessment/Plan ICD-10-CM 1. Screening for malignant neoplasm of cervix Z12.4 2. Encounter for gynecological examination without abnormal finding Z01.419 3. Encounter for surveillance of vaginal ring hormonal contraceptive device Z30.44 Alondra was seen today for gynecologic exam. Diagnoses and all orders for this visit: Screening for malignant neoplasm of cervix Encounter for gynecological examination without abnormal finding Encounter for surveillance of vaginal ring hormonal contraceptive device Pap and exam performed. Results can be found in MyChart in 7 days Return 1 year documented in this encounter [facility] 05-12-2023 Evaluation note Encounter Date Diagnosis Assessment Notes May, Strain of lumbar paraspinous muscle, initial encounter (ICD-10 - S39.012A) Patient has repetative strain of her lower lumbar praspinal muscles on the right and patient given reassurance that she does not have pain over the spine or pelvic joint spaces. She was instructed on different stretches and exercises to do to help alleviate this as well as given exercise handouts for this. She was also given Naproxen that she can use as needed for pain. She is to call and return if not improving in 3-4 weeks and trigger point injections can be done. [facility] Other 10-18-2023 Evaluation note* Encounter Date Diagnosis Assessment Notes Treatment Notes Treatment Clinical Notes Feb, Encounter to establish care (ICD-10 - Z76.89) Patient appears to be in good health upon examination. She is here to establish care for annual physcial for her employment. 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 Feb, Wellness examination (ICD-10 - Z00.00) Personalized health advice was given to the beneficiary to health education of preventative counseling services or programs aimed at reducing identified risk factors and improving self-management or community-based lifestyle interventions to reduce health risks and promote self-management and wellness, including physical activity and nutrition. A written plan for screenings was discussed, flu vaccination, routine lab studies, eye exams, as well as risk factors for other medical problems. Feb, Left shoulder pain (ICD-10 - M25.512) Pain located in the left shoulder/clavicle region. I do recommend the patient have XR's collected to rule out abnormalities. Feb, Chest pain (ICD-10 - R07.9) In house EKG performed. Reviewed with patient. Noted T-abnormalities. I suggested patient have stress test to rule out abnormalities. Feb, Left atrial enlargement (ICD-10 - I51.7) Noted in todays EKG. I do recommend the patient go through with a stress test and echo. Order provided. Will do echocardiogram d/t left atrial enlargement Feb, Abnormal EKG (ICD-10 - R94.31) Stress test ordered to rule out abnormalities. [place] [employer] Other Evaluation noteNo assessment information available [facility] Work Phone: Evaluation note* Diagnosis Amenorrhea- Primary Absence of menstruation Screening for malignant neoplasm of cervix Screening for malignant neoplasm of the cervix Encounter for gynecological examination without abnormal finding Encounter for surveillance of vaginal ring hormonal contraceptive device Missed menses documented in this encounter [facility]* Diagnosis Hormone imbalance- Primary Amenorrhea Absence of menstruation Missed menses Family planning Other general counseling and advice for contraceptive management Thyroid disorder screen Screening for thyroid disorder [facility] Diagnosis Encounter for supervision of normal first in first trimester Encounter for drug screening care, antepartum Encounter for screening for chromosomal anomalies care in first trimester Screening for genetic disease carrier status documented [facility]* Diagnosis with uncertain dates, antepartum [facility]* Diagnosis Second trimester state, incidental 14 weeks gestation of [facility]* Diagnosis Second trimester ([facility]) state, incidental 22 weeks gestation of ([facility]) Diabetes mellitus screening Screening for diabetes mellitus documented in this encounter [facility] general Narrative - Reported* Type Description Date Medical History Left elbow dislocation 2011 [facility] Other Summary Purpose Family History No Family History Records FoundNo Family History Records FoundNo Family History Records FoundNo Family History Records FoundNo Family History Records Found Advance Directives No Advanced Directives Records FoundNo Advanced Directives Records FoundNo Advanced Directives Records FoundNo Advanced Directives Records FoundNo Advanced Directives Records Found Additional Source Comments INFORMATION SOURCE (unrecogn ized section and content) DATE CREATED AUTHOR 07/30/2021 [facility] DATE CREATED AUTHOR AUTHOR'S ORGANIZ ATION 05/24/2023 [facility] DATE CREATED AUTHOR AUTHOR'S ORGANIZ ATION 02/20/2024 [facility] DATE CREATED AUTHOR AUTHOR'S ORGANIZ ATION 04/23/2024 [facility] DATE CREATED AUTHOR AUTHOR'S ORGANIZ ATION 10/29/2024 [facility] EPIC REASON FOR VISIT (unrecogniz ed section and content) Reason Comments Gynecologic Exam Reason Comments Follow-up Reason Comments Initial Visit Nurse Visit Reason Comments Amenorrhea Reason Comments Routine Visit Care Teams (unrecognized sec tion and content) Team Status: Inactive Member Role Status Dates Lisandro Buitrago DO Attending Provider Active Rv Mechanic Relationship Specialty Start Date End Date Unallocated, Jordy Horn MD [address] [place] [address] [place] [address] PCP - General Family Medicine 06/23/23 Rv Mechanic Relationship Specialty Start Date End Date Unallocated, Jordy Horn MD [facility] [place] [address] [place] [address] PCP - General Family Medicine 06/23/23 Rv Mechanic Relationship Specialty Start Date End Date Unallocated, Jordy Horn MD [facility] [place] [address] [place] [address] PCP - General Family Medicine 06/23/23 Rv Mechanic Relationship Specialty Start Date End Date Unallocated, Jordy Horn MD [facility] [place] [address] [place] [address] PCP - General Family Medicine 06/23/23 Rv Mechanic Relationship Specialty Start Date End Date Unallocated, Jordy Horn MD [address] [place] [address] [place] [address] PCP - General Family Medicine 06/23/23 Rv Mechanic Relationship Specialty Start Date End Date Unallocated, Jordy Horn MD [facility] [place] [address] [address] PCP - General Family Medicine 06/23/23 Rv Mechanic Relationship Specialty Start Date End Date Unallocated, Jordy Horn MD [facility] [place] [address] PCP - General Family Medicine 06/23/23 Rv Mechanic Relationship Specialty Start Date End Date Unallocated, Jordy Horn MD [facility] [place] [address] [place] [address] PCP - General Family Medicine 06/23/23 Goals (unrecognized section and content) Goals may be documented in a n alternate section FOR RECORDS PERTAINING TO PATIENTS WHO ARE OR HAVE BEEN ENROLLED IN A CHEMICAL DEPENDENCY/SUBSTANCEABUSE PROGRAM, SOME INFORMATION MAY BE OMITTED. This clinical summary was aggregated from multiple sources. Caution should be exercised in using it in the provision of clinical care. This summary normalizes information from multiple sources, and as a consequence, information in this document may materially change the coding, format and clinical context of patient data. In addition, data may be omitted in some cases. CLINICAL DECISIONS SHOULD BE BASED ON THE PRIMARY CLINICAL RECORDS. [facility]. provides no warranty or guarantee of the accuracy or completeness of information in this document.
--- OUTSIDE RECORDS SUMMARY | 2024-11-22 06:51 | XMS_ITS | Encounter Summary ---
Author Organization [facility] Address [address] [place] [address] Care Team Providers Care Cloth Framer Name Role Phone Unallocated, Noms Provider Primary Care [facility] Encounter Details Date Type Department Care Team (Latest Contact Info) Description 11/17/2024 Travel Social History Tobacco Use Types Packs/Day [...] Department Care Team ( Contact Info) Description 11/22/2024 8:50 AM EDT Routine [facility] [address] [place] [address] [place] [address] Nadine Gurrola PA [address] [place] [address] documented as of this encounter Goals Goal Patient Goal Type Associated Problems Recent Progress Patient-Stated? Author Reminders Care Plan OB Reminders Jennifer Bond RN documented as of this encounter Visit Diagnoses Not on filedocumented in this encounter Additional Health Concerns Active Problems Noted Date Diagnosed Date OB Reminders 07/11/2024 documented as of this encounter Care Teams Cloth Framer Relationship Specialty Start Date End Date Unallocated, Noms Provider, [address] [place] [address] PCP - General Family Medicine 06/23/23 documented as of this encounter
[2024-11-22 08:25] LABS: Hematocrit 35.6 % (36.0-48.0); Hemoglobin 11.9 g/dL (12.0-16.0); Immature Granulocytes Abs Auto 0.13 10^3/uL (0.00-0.03); Immature Granulocytes Pct Auto 1.2 % (0.0-0.5); Lymphocytes Absolute Auto 1.3 10^3/uL (1.2-3.8); Mean Corpuscular HGB Conc 33.4 g/dL (29.9-35.2); Mean Corpuscular Hemoglobin 30.9 pg (26.7-34.0); Mean Corpuscular Volume 92.5 fL (81.0-99.0); Platelet Count 198 10^3/uL (150-450); Red Blood Count 3.85 10^6/uL (4.20-5.40); White Blood Count 10.9 10^3/uL (4.0-11.0)
[2024-11-22 08:40] LABS: Glucose 1 Hour 149 mg/dL (<130)
== END 2024-11-22 06:50 | disposition home or self-care (01) ==
PROVIDERS: PCP Family Medicine; Visit Provider Obstetrics & Gynecology
DX: Z13.1 Encounter for screening for diabetes mellitus (principal)
CPT/HCPCS: 36415; 82950; 85025

== ENCOUNTER 2024-11-28 06:35 | Outpatient (OUT) | payer OTHER, SELFPAY ==
--- OUTSIDE RECORDS SUMMARY | 2024-11-22 08:50 | XMS_ITS | Encounter Summary ---
Author Organization [facility] Address [address] [place] [address] Care Team Providers Care Forestry Fire Aid Name Role Phone Unallocated, Noms Provider [facility] Reason for Visit * Reason Comments Routine Visit Encounter Details Date Type Department Care Team (Late st Contact Info) Description 11/22/2024 8:50 AM EDT Routine [facility] [address] [id number] Nadine Gurrola PA [address] [place], [id number] 26 weeks gestation of ([facility]); Second trimester ([facility]); Elevated glucose tolerance test Social History Tobacco Use Types Packs/Day Years [...] Sign Reading Time Taken Comments Blood Pressure 120/76 11/22/2024 8:52 AM EDT Pulse - - Temperature - - Respiratory Rate - - Oxygen Saturation - - Inhaled Oxygen Concentration - - Weight 72.2 kg (159 lb 1.9 oz) 11/22/2024 8:52 A M EDT Height - - Body Mass Index 28.19 08/10/2024 2:55 PM EDT documented in this encounter Progress Notes * LIZA Zaldivar - 11/22/2024 8:50 AM EDT Reason for Appointment: Patient ID: Angelique Carlos is a 28 y.o. female who [...] Grandfather Kwan Swiney Breast cancer Paternal Grandmother Madelon Walp Lung cancer Paternal Grandmother Madelon Walp Colon cancer Paternal Grandfather Skyler Walp Cancer Paternal Grandfather Skyler Walp SURGICAL HISTORY Past Surgical History: Procedure Laterality [...] reviewed. Vitals: Estimated body mass index is 28.19 kg/m?? as calculated from the following: Height as of 08/10/24: 5' 3 . Weight as of this encounter: 159 lb 1.9 oz. BP: 120/76 Patient's last menstrual period was 05/09/2024 (exact date). ASSESSMENT & PLAN ICD-10-CM 1. 26 weeks gestation of ([facility]) Z3A.26 POCT urinalysis dipstick manually resulted 2. Second trimester ([facility]) Z34.92 POCT urinalysis dipstick manually resulted 3. Elevated glucose tolerance test R73.09 Glucose tolerance, 3 hours Glucose tolerance, 3 hours Return OB: Patient presents today for a routine obstetrics appointment. Patient is currently 26w2d . Patient states she is doing well but has complaints of being tired due to current . Patient has verbalizes frequent movement. Orders Placed This Encounter Procedures Glucose tolerance, 3 hours POCT urinalysis dipstick manually resulted Follow Up: Patient is to return to office in 2 week for routine OB appointment. Documented by LIZA Zaldivar on behalf of: LIZA Zaldivar documented in this encounter Plan of Treatment Upcoming Encounters Date Type Department Care Team (Late st Contact Info) Description 12/05/2024 9:00 AM EDT Routine [facility] [address] [address] José Lozano, DO [address] [place] [address] Scheduled Orders Name Type Priority Associated Diagnoses Orde r Schedule Glucose tolerance, 3 hours Lab Routine Elevated glucose tolerance test Expected: 11/22/2024 (Approximate), Expires: 11/22/2025 documented as of this encounter Goals Goal Patient Goal Type Associated Problems Recent Progress Patient-Stated? Author Reminders Care Plan OB Reminders Jennifer Bond RN documented as of this encounter Procedures Procedure Name Priority Date/Time Associated Diagnosis Comments POCT URINALYSIS DIPSTICK Routine 11/22/2024 8:57 AM EDT 26 weeks gestation of ([facility]) Second trimester ([facility]) documented in this encounter Results * (ABNORMAL) POCT urinalysis dipstick manually resulted (11/22/2024 8:57 AM EDT) Color, UA Yellow Clarity, UA Clear Glucose, UA Negative Negative - 2000(110) ++++ mg/dL Bilirubin, UA Negative Negative - 4(70) +++ mg/dL Ketones, UA Negative Negative - 160(16) ++++ mg/dL Spec Grav, UA 1.010 1 - 1.03 Blood, UA Negative Negative - 50 Mark/mcL pH, UA 6.0 5 - 9 Protein, UA Negative Negative - 2000(20) ++++ mg/dL Urobilinogen, UA 0.2 0.2 - 12 mg/dL Leukocytes, UA Moderate Negative - 500+++ Mahsa/mcL Nitrite, UA Negative Negative - Positive Urine 11/22/2024 8:57 AM EDT Nadine DE JESUS POINT OF CARE TEST ENTER/EDIT OR DERABLES Final Result documented in this encounter Visit Diagnoses Diagnosis 26 weeks gestation of ([facility]) Second [facility] state, incidental Elevated glucose tolerance test Impaired glucose tolerance test documented in this encounter Additional Health Concerns Active Problems Noted Date Diagnosed Date OB Reminders 07/11/2024 documented as of this encounter Care Teams Forestry Fire Aid Relationship Specialty Start Date End Date Unallocated, Noms Provider, [address] [place] [address] PCP - General Family Medicine 06/23/23 documented as of this encounter
--- OUTSIDE RECORDS SUMMARY | 2024-11-28 06:37 | XMS_ITS | Clinical Summary ---
Author Organization [facility] Address [address] [place] [address] Care Team Providers Care Screenplay Writer Name Role Phone Unallocated, Noms Provider Primary Care Provi ulysses Allergies No known active allergies Medications Vit-Fe Fumarate-FA ( PO) Take by mouth Active Encounters Date Type Department Care Team Description 11/22/2024 8:50 AM EDT Routine [facility] OB [address] [place] [address] Nadine Gurrola PA 26 weeks gestation of ([facility]); Second trimester ([facility]); Elevated glucose tolerance test 11/22/2024 Results Follow-Up [facility] OB [address] [place] [address] Dea Olivares LPN 11/22/2024 Clinisync Result Encounter NOMS External Department Unsolicited José Lozano DO 11/17/2024 Travel 10/26/2024 11:50 AM EDT Routine [facility] OB [address] [place] [address] José Lozano DO Second trimester ([facility]); 22 weeks gestation of ([facility]); Diabetes mellitus screening 10/26/2024 11:00 AM EDT Ancillary Procedure [facility] OB [address] [place] [address] 09/29/[address] [facility] [address] [place] [address] Elise DeaALEKSANDR 09/28/2024 3:20 PM EDT Routine [facility] [address] [place] [address] Nadine Gurrola PA Screening, , for anatomic survey ([facility]); STD exposure; Second trimester ([facility]); 18 weeks gestation of ([facility]) 09/28/2024 Clinisync Result Encounter NOMS External Department Unsolicited Nadine Gurrola PA 09/28/2024 External Result Encounter NOMS External Department Unsolicited Nadine Gurrola PA 09/28/2024 Bamboo flowsheet [facility] [address] [place] [address] Nadine Gurrola PA 09/28/2024 Travel 09/12/2024 Abstract [facility] [address] [place] [address] José Lozano DO 08/29/2024 2:10 PM EDT Routine [facility] [address] [place] [address] José Lozano, Second trimester ([facility]); 14 weeks gestation of ([facility]) 08/29/2024 Clinisync Result Encounter NOMS External Department Unsolicited José Lozano, 08/29/2024 Bamboo flowsheet [facility] [address] [place] [address] José Lozano, 08/29/2024 Travel from Last 3 Months Family History Medical History Relation Name Comments Hypothyroidism Maternal Grandfather Kwan Swiney Thyroid disease Maternal Grandfather Kwan Swiney Breast cancer Maternal Grandmother Maricarmen Swiney Hypothyroidism Mother Esmer Walp Polycystic ovary syndrome Mother Esmer Walp Thyroid disease Mother Esmer Walp Cancer Paternal Grandfather Skyler Walp Colon cancer Paternal Grandfather Skyler Walp Breast cancer Paternal Grandmother Trudylon Walp Lung cancer Paternal Grandmother Gilda Sanches Polycystic ovary syndrome Sister Relation Name Status Comments Father Alive Maternal Grandfather Kwan Potts Maternal Grandmother Maricarmen Potts Mother Esmer Sanches Alive Paternal Grandfather Skyler Sanches Paternal Grandmother Gilda Sanches Sister Social History Tobacco Use Types Packs/Day [...] Pressure 120/76 11/22/2024 8:52 AM EDT Pulse 77 06/23/2023 9:25 AM EST Temperature 36.4 C (97.5 F) 06/23/2023 9:25 AM EST Respiratory Rate 18 05/15/2023 11:28 AM EST Oxygen Saturation 99% 06/23/2023 9:25 AM EST Inhaled Oxygen Concentration - - Weight 72.2 kg (159 lb 1.9 oz) 11/22/2024 8:52 A M EDT Height 160 cm (5' 3 ) 08/10/2024 2:55 PM EDT Body Mass Index 28.19 08/10/2024 2:55 PM EDT Plan of Treatment Upcoming Encounters Date Type Department Care Team (Late st Contact Info) Description 12/05/2024 9:00 AM EDT Routine [facility] OB [address] [place] [address] José Lozano, DO [address] [place] [address] Health Maintenance Due Date Last Done Comments Influenza Vaccine (#1) 2025 Goals Goal Patient Goal Type Associated Problems Recent Progress Patient-Stated? Author Reminders Care Plan OB Reminders No Jennifer Ayala RN Procedures Procedure Name Priority Date/Time Associated Diagnosis Comments POCT URINALYSIS DIPSTICK Routine 11/22/2024 8:57 AM EDT 26 weeks gestation of ([facility]) Second trimester ([facility]) GLUCOSE 1 HOUR Routine 11/22/2024 7:47 AM EDT ALL CBC WITH AUTO DIFF Routine 11/22/2024 7:47 AM EDT POCT URINALYSIS DIPSTICK Routine 10/26/2024 12:06 PM EDT Second trimester ([facility]) US OB 14+ WEEKS ANATOMY SCAN Routine 10/26/2024 11:56 AM EDT Screening, , for anatomic survey ([facility]) AFP, SERUM, OPEN SPINA BIFIDA Routine 09/28/2024 4:26 PM EDT RECURRENT VAGINITIS (HTRX) Routine 09/28/2024 3:57 PM EDT POCT URINALYSIS DIPSTICK Routine 09/28/2024 3:41 PM EDT 18 weeks gestation of ([facility]) MLR HEMOGLOBIN A1C Routine 08/29/2024 3: 00 PM EDT POCT URINALYSIS DIPSTICK Routine 08/29/2024 2:14 PM EDT Second trimester ([facility]) BOX TEST Routine 08/29/2024 1:49 PM EDT from Last 3 Months Results * (ABNORMAL) POCT urinalysis dipstick manually resulted (11/22/2024 8:57 AM EDT) Only the most recent of4 resultswithin the time period is included. Color, [...] TEST ENTER/EDIT OR DERABLES Final Result * (ABNORMAL) GLUCOSE 1 HOUR (11/22/2024 7:47 AM EDT) Pathologist [facility] GLUCOSE 1 HOUR 149(H) <130 mg/dL TBH 11/22/2024 7:47 AM EDT 11/22/2024 7:50 AM EDT Narrative CLINISYNC - 11/22/2024 8:41 AM EDT us José Lozano DO LAB BLOOD ORDERABLES Final Resul t [facility] * (ABNORMAL) ALL CBC WITH AUTO DIFF (11/22/2024 7:47 AM EDT) Pathologist [facility] TB WBC 10.9 4.0 - 11.0 10 3/uL TBH TBH RBC 3.85(L) 4.20 - 5.40 10 6/uL TBH TBH HGB 11.9(L) 12.0 - 16.0 g/dL TBH TBH HCT 35.6(L) 36.0 - 48.0 % TBH TBH MCV 92.5 81.0 - 99.0 fL TBH TBH MCH 30.9 26.7 - 34.0 pg TBH TBH MCHC 33.4 29.9 - 35.2 g/dL TBH TBH RDW 13.0 11.0 - 15.0 % TBH TBH PLT 198 150 - 450 10 3/uL TBH TBH MPV 10.5 9.5 - 13.5 fL TBH NEUTROPHILS PERCENT AUTO 80.7(H) 43.0 - 75.0 % TBH LYMPHOCYTES PERCENT AUTO 11.6(L) 20.5 - 60.0 % TBH MONOCYTES PERCENT AUTO 4.9 1.7 - 12.0 % TBH TBH EO % 1.2 0.9 - 7.0 % TBH BASOPHILS PERCENT AUTO 0.4 0.2 - 2.0 % TBH IMMATURE GRANULOCYTES PCT AUTO 1.2(H) 0.0 - 0.5 % TBH NEUTROPHILS ABSOLUTE AUTO 8.8(H) 1.4 - 6.5 10 3/uL TBH LYMPHOCYTES ABSOLUTE AUTO 1.3 1.2 - 3.8 10 3/uL TBH MONOCYTES ABSOLUTE AUTO 0.5 0.3 - 0.8 10 3/uL TBH TBH EO # 0.1 0.0 - 0.7 10 3/uL TBH BASOPHILS ABSOLUTE AUTO 0.0 0.0 - 0.1 10 3/uL TBH IMMATURE GRANULOCYTES ABS AUTO 0.13(H) 0.00 - 0.03 10 3/uL TBH 11/22/2024 7:47 AM EDT 11/22/2024 7:50 AM EDT Narrative CLINISYNC - 11/22/2024 8:25 AM EDT us José Blake DO CLINISYNC Final Result CLINISYNC TB * US OB 14+ weeks anatomy scan [...] II, MD, PHD at 27-Oct-2024 06:14:52 AM [facility] Procedure Note Leonidas Nicole MD - [...] LEONIDAS NICOLE II, MD, PHD 06:14:52 AM [facility] us Nadine DE JESUS IMG OB US PROCEDURES Final Resul t * AFP, SERUM, OPEN SPINA BIFIDA (09/28/2024 4:26 PM EDT) [facility] RESULTS Report . [facility] TEST RESULTS: *Screen Negative* . [facility] GEST. AGE ON COLLECTION DATE 18.4 . weeks [facility] GESTAT. AGE BASED ON Ultrasound . [facility] Comment: 18.3 on 09/27/2024 Recalculations are not recommended when gestational dating by LMP and ultrasound are within 10 days. [age] [facility] RACE . [facility] WEIGHT 148 . lbs [facility] INSULIN DEP DIABETES No . [facility] MULTIPLE GESTATION No . [facility] AFP VALUE 63.6 . ng/mL [facility] AFP MOM 1.38 . [facility] OSBR RISK 1 IN 3810 . [facility] INTERPRETATION Comment . [facility] Comment: Interpretation: Screen Negative This result is [...] Customer Services to discuss available options. The [employer] recommends amniocentesis be offered to women age 35 and older. COMMENT: Comment . [facility] Comment: Rosy Amaya, Ph.D., [facility] Director References: Available Upon Request. Multiples Of Median Cutoffs For AFP Elevations Plummer 2.5 Black 2.8 IDD 2.0 Twins 4.5 Abbreviation Definitions IDD - Insulin Dep Diabetes OSBR - Open Spina Bifida Risk For further inquiries contact [facility] at [phone]. This test was developed and its performance characteristics determined by [facility]. It has not been cleared or approved by the Food and Drug Administration. Performed at: [facility] [address], [place], [place] [id number] Carton Forming Machine Tender: Elisa Fields [facility], Phone: [phone] 09/28/2024 4:26 PM EDT 09/28/2024 4:26 PM EDT Narrative CLINISYNC - 10/01/2024 1:07 AM EDT N N ULTRASOUND [id number] 2 18 N 1 Y 148 N N N N N White/ us Nadine DE JESUS LAB BLOOD ORDERABLES Final Resul t [facility] * (ABNORMAL) RECURRENT VAGINITIS (HTRX) (09/28/2024 3:57 PM EDT) [facility] ATOPOBIUM VAGINAE 19.132(A) 19.961 - 24.689 ppm 09/29/2024 6:28 AM EDT [facility] ATOPOBIUM VAGINAE Detected(A) 19.961 - 24.689 ppm 09/29/2024 6:28 AM EDT [facility] BVAB 2,3 (BACTERIAL VAGINOSIS ASSOCIATED BACTERIA 2, 3); MOBILUNCUS SPP 0.000 19.961 - 24.689 ppm 09/29/2024 6:28 AM EDT [facility] BVAB 2,3 (BACTERIAL VAGINOSIS ASSOCIATED BACTERIA 2, 3); MOBILUNCUS SPP Not Detected 19.961 - 24.689 ppm 09/29/2024 6:28 AM EDT [facility] AME ALBICANS, PARAPSILOSIS, TROPICALIS 0.000 19.961 - 30.770 ppm 09/29/2024 6:28 AM EDT [facility] AME ALBICANS, PARAPSILOSIS, TROPICALIS Not Detected 19.961 - 30.770 ppm 09/29/2024 6:28 AM EDT [facility] AME GLABRATA 0.000 23.000 - 32.138 ppm 09/29/2024 6:28 AM EDT [facility] AME GLABRATA Not Detected 23.000 - 32.138 ppm 09/29/2024 6:28 AM EDT [facility] AME KRUSEI 0.000 23.000 - 32.271 ppm 09/29/2024 6:28 AM EDT [facility] AME KRUSEI Not Detected 23.000 - 32.271 ppm 09/29/2024 6:28 AM EDT [facility] CHLAMYDIA TRACHOMATIS 0.000 23.000 - 31.467 ppm 09/29/2024 6:28 AM EDT [facility] CHLAMYDIA TRACHOMATIS Not Detected 23.000 - 31.467 ppm 09/29/2024 6:28 AM EDT [facility] GARDNERELLA VAGINALIS 23.756(A) 19.961 - 24.689 ppm 09/29/2024 6:28 AM EDT [facility] GARDNERELLA VAGINALIS Detected(A) 19.961 - 24.689 ppm 09/29/2024 6:28 AM EDT [facility] MEGASPHAERA (TYPES 1, 2) 0.000 19.961 - 24.689 ppm 09/29/2024 6:28 AM EDT [facility] MEGASPHAERA (TYPES 1, 2) Not Detected 19.961 - 24.689 ppm 09/29/2024 6:28 AM EDT [facility] NEISSERIA GONORRHOEAE 0.000 23.000 - 32.117 ppm 09/29/2024 6:28 AM EDT [facility] NEISSERIA GONORRHOEAE Not Detected 23.000 - 32.117 ppm 09/29/2024 6:28 AM EDT [facility] TRICHOMONAS VAGINALIS 0.000 23.000 - 32.119 ppm 09/29/2024 6:28 AM EDT [facility] TRICHOMONAS VAGINALIS Not Detected 23.000 - 32.119 ppm 09/29/2024 6:28 AM EDT [facility] MYCOPLASMA GENITALIUM 0.000 19.961 - 24.689 ppm 09/29/2024 6:28 AM EDT [facility] MYCOPLASMA GENITALIUM Not Detected 19.961 - 24.689 ppm 09/29/2024 6:28 AM EDT [facility] Tissue 09/28/2024 3:57 PM EDT 09/29/2024 1:28 AM EDT Nadine DE JESUS LAB BLOOD ORDERABLES Final Resul t [facility] [address] [place] [address] * MLR HEMOGLOBIN A1C (08/29/2024 3:00 PM EDT) GLYCOHEMOGLOBIN A1C 5.3 4.5 - 6.2 % [facility] Comment: ADA RECOMMENDED LIMIT 4.0 - 6.0 ADA THERAPEUTIC TARGET < 7.0 ACTION SUGGESTED > 7.0 ESTIMATED AVERAGE GLUCOSE 105 mg/dL TB 08/29/2024 3:00 PM EDT 08/29/2024 3:02 PM EDT Narrative CLINISYNC - 08/29/2024 3:16 PM EDT us José Blake DO CLINISYNC Final Result Performing Organization Address [facility] de Phone Number [facility] TB * BOX TEST (08/29/2024 1:49 PM EDT) BOX TEST SENT OUT [address] [facility] [address] [facility] [address] 08-29-24 TB 08/29/2024 1:49 PM EDT 08/29/2024 1:57 PM EDT Narrative CLINISYNC - 08/29/2024 2:19 PM EDT [facility] José Blake DO LAB BLOOD ORDERABLES Final Resul t Performing Organization Address [facility] de Phone Number [facility] from Last 3 Months Additional Health Concerns Active Problems Noted Date Diagnosed Date OB Reminders 07/11/2024 Insurance [employer] Care Teams Screenplay Writer Relationship Specialty Start Date End Date Unallocated, Noms Provider, [address] [place], [place] [phone] PCP - General Family Medicine 06/23/23
--- OUTSIDE RECORDS SUMMARY | 2024-11-28 06:37 | XMS_ITS | Encounter Summary ---
Author Organization [facility] Address [address] [place] [address] Care Team Providers Care Training Coordinator Name Role Phone Unallocated, Noms Provider Primary Care Provi [facility] Encounter Details Date Type Department Care Team [...] Department Care Team ( Contact Info) Description 12/05/2024 9:00 AM EDT Routine [facility] BCP OB [address] [place] [address] [place] [address] José Lozano, [address] [place] [address] documented as of this encounter Goals Goal Patient Goal Type Associated Problems Recent Progress Patient-Stated? Author Reminders Care Plan OB Reminders Jennifer Bond RN documented as of this encounter Visit Diagnoses Not on filedocumented in this encounter Additional Health Concerns Active Problems Noted Date Diagnosed Date OB Reminders 07/11/2024 documented as of this encounter Care Teams Training Coordinator Relationship Specialty Start Date End Date Unallocated, Noms Provider, [address] [place] [address] PCP - General Family Medicine 06/23/23 documented as of this encounter
--- OUTSIDE RECORDS SUMMARY | 2024-11-28 06:37 | XMS_ITS | Encounter Summary ---
Author Organization [facility] Address [address] [place] [address] Care Team Providers Care Manager Pool Name Role Phone Unallocated, Noms Provider Primary Care Provi ulysses Encounter Details Date Type Department Care Team (Late st Contact Info) Description 11/22/2024 Clinisync Result Encounter NOMS External Department Unsolicited José Lozano, DO [address] [place] [address] Social History Tobacco Use Types Packs/Day Years [...] Comme nts Yes 02/26/2025 Based on Moises nayak FHR- 173 Sex and Gender Information Value [...] AM EDT Routine [facility] BCP OB [address] [place] [address] BlakeJosé harrison, DO [address] [place] [address] documented as of this encounter Goals Goal Patient Goal Type Associated Problems Recent Progress Patient-Stated? Author Reminders Care Plan OB Reminders Jennifer Bond RN documented as of this encounter Procedures Procedure Name Priority Date/Time Associated Diagnosis Comments GLUCOSE 1 HOUR Routine 11/22/2024 7:47 AM EDT ALL CBC WITH AUTO DIFF Routine 11/22/2024 7:47 AM EDT documented in this encounter Results * (ABNORMAL) GLUCOSE 1 HOUR (11/22/2024 7:47 AM EDT) GLUCOSE 1 HOUR 149(H) <130 mg/dL TBH 11/22/2024 7:47 AM EDT 11/22/2024 7:50 AM EDT Narrative CLINISYNC - 11/22/2024 8:41 AM EDT us José Lozano DO LAB BLOOD ORDERABLES Final Resul t [facility] * (ABNORMAL) ALL CBC WITH AUTO DIFF (11/22/2024 7:47 AM EDT) TBH WBC 10.9 4.0 - 11.0 10 3/uL [...] Blake DO CLINISYNC Final Result [facility] TB documented in this encounter Visit Diagnoses Not on filedocumented in this encounter Additional Health Concerns Active Problems Noted Date Diagnosed Date OB Reminders 07/11/2024 documented as of this encounter Care Teams Manager Pool Relationship Specialty Start Date End Date Unallocated, Noms Provider[place] [address] [place] [address] PCP - General Family Medicine 06/23/23 documented as of this encounter
--- OUTSIDE RECORDS SUMMARY | 2024-11-28 06:37 | XMS_ITS | Encounter Summary ---
Author Organization [facility] Address [address] [place] [address] Care Team Providers Care Customer Engagement Analyst Name Role Phone Unallocated, Noms Provider Primary Care Provi [facility] Encounter Details Date Type Department Care Team (Late st Contact Info) Description 11/22/2024 Results Follow-Up [facility]CP OB [address] [place] [address] Dea Olivares LPN [address] [place] [id number] Social History Tobacco Use Types Packs/Day Years [...] Delivery Comme nts Yes 02/26/2025 Based on Oscaro nael, FHR- 173 Sex and Gender Information Value Date Recorded Sex Assigned at Not on file Legal Sex Female 11:24 AM EST Gender Identity Not on file Sexual Orientation Not on file Occupation Industry Job Start Date Job End Date Not on file Not on file Not on file Not on file documented as of this encounter Miscellaneous Notes * Result Encounter Note - Dea Olivares LPN - 11/22/2024 11:11 AM EDT Pt was seen in office today and was given order for 3 hour glucose documented in this encounter Plan of Treatment Upcoming Encounters Date Type Department Care Team (Late st Contact Info) Description 12/05/2024 9:00 AM EDT Routine [facility] BCP OB [address] [id number] José Lozano DO [address] [place] [address] documented as of this encounter Goals Goal Patient Goal Type Associated Problems Recent Progress Patient-Stated? Author Reminders Care Plan OB Reminders Jennifer Bond RN documented as of this encounter Visit Diagnoses Not on filedocumented in this encounter Additional Health Concerns Active Problems Noted Date Diagnosed Date OB Reminders 07/11/2024 documented as of this encounter Care Teams Customer Engagement Analyst Relationship Specialty Start Date End Date Unallocated, Noms Provider, [address] [place] [address] PCP - General Family Medicine 06/23/23 documented as of this encounter
--- OUTSIDE RECORDS SUMMARY | 2024-11-28 06:38 | XMS_ITS | CCD ---
Author Organization [facility] Care Team Providers Care Base Wad Operator Adjuster Name Role Phone DR JANES GARCIA Admitting Unavailable JOSE, DR JANES Escobar Attending Unavailable REQUEST, NONE LISTED Primary Care Unavaila verna GARCIA, DR JANES Escobar Consulting Unavailable Lisandro Buitrago Unavailable DO Lisandro Buitrago Attending Provider Tyrell Stiles Unavailable Lisandro Buitrago Attending Unavailable Lisandro Buitrago Admitting Unavailable Unallocated MD, N[place] Provider Primary Care Provi ulysses Zita Alanis Primary Care Unavailable Zita Alanis Attending Unavailable Zita Alanis Attending Unavailable Zita Alanis Primary Care Unavailable Zita Alanis Attending Unavailable Zita Alanis Primary Care Unavailable ROCIO LOZANO Attending Unavailable NADINE GALVAN Attending Unavailable ATTILA BUNDY Attending Unavailable ATTILA BUNDY Attending Unavailable ROCIO LOZANO Attending Unavailable NADINE GALVAN Attending Unavailable Medications Current Medications Medication Drug Class(es) Dates Sig (Normalized) Sig (Original) naproxen 500 mg oral tablet (1 source) Nonsteroidal Anti-inflammatory Drug Start: 05-12-2023 take 1 tablet by mouth every twelve hours at mealtime as needed Naproxen 500 MG 1 tablet with food or milk as needed Orally every 12 hrs for 20 days May, Active Vit-Fe Fumarate-FA ( PO) (11 sources) Vit-Fe Fumarate-FA ( PO) Take by mouth Active Completed/Discontinued Medications Medication Drug Class(es) Dates Sig (Normalized) Sig (Original) azithromycin 250 mg oral tablet (3 sources) Macrolide Antimicrobial Start: 08-21-2024 End: 08-29-2024 azithromycin (Zithromax Z-Triston) 250 MG tablet Indications: Sore throat As directed 6 tablet 08/21/2024 08/29/2024 Discontinued 21 day ethinyl estradiol 0.304586 mg/hr / etonogestrel 0.005 mg/hr vaginal system [...] vaginal ring hormonal contraceptive device] 02-08-2024 Episodic Diabetes mellitus without complication (2 sources) Abnormal glucose tolerance test; Translations: [Other abnormal glucose] 11-22-2024 Episodic Disorders of lipid metabolism (1 source) [...] shoulder] Episodic Other and delivery including normal (10 sources) Normal ; Translations: [Encounter for supervision [...] [22 weeks gestation of ] 10-26-2024 Episodic Residual codes; unclassified (2 sources) Gestation period, 26 weeks; Translations: [26 weeks gestation of ] 11-22-2024 Episodic Sprains and strains (1 source) Strain of muscle, fascia and tendon of lower back, initial encounter Episodic Unclassified (1 source) Pain in left shoulder; Translations: [Pain in left shoulder] Onset: 3 Unclassified (11 sources) OB Reminders Onset: 5 07-11-2024 Results Test Name Value Interpretation Reference Range Facility ALL CBC WITH AUTO DIFFon BASOPHILS ABSOLUTE AUTO 0 [facility] Basophils/100 WBC (Bld) 0.4 % 0.2 - 2.0 % [facility] Eosinophils/100 WBC (Bld) 1.2 % 0.9 - 7.0 % [facility] Erythrocyte distribution width (RBC) [Ratio] 13 % 11.0 - 15.0 % [facility] Hematocrit (Bld) [Volume fraction] 35.6 % Low 36.0 - 48.0 % [facility] Hemoglobin (Bld) [Mass/Vol] 11.9 g/dL Low 12.0 - 16.0 g/dL [facility] IMMATURE GRANULOCYTES ABS AUTO 0.13 High [facility] Immature granulocytes/100 WBC (Bld) 1.2 % High 0.0 - 0.5 % [facility] Interpretation and review of laboratory results Abnormal [facility] LYMPHOCYTES ABSOLUTE AUTO 1.3 [facility] Lymphocytes/100 WBC (Bld) 11.6 % Low 20.5 - 60.0 % [facility] MCH (RBC) [Entitic mass] 30.9 pg 26.7 - 34.0 pg [facility] MCHC (RBC) [Mass/Vol] 33.4 g/dL 29.9 - 35.2 g/dL [facility] MCV (RBC) [Entitic vol] 92.5 fL 81.0 - 99.0 fL [facility] MONOCYTES ABSOLUTE AUTO 0.5 [facility] Monocytes/100 WBC (Bld) 4.9 % 1.7 - 12.0 % [facility] NEUTROPHILS ABSOLUTE AUTO 8.8 High [facility] Neutrophils/100 WBC (Bld) 80.7 % High 43.0 - 75.0 % [facility] Platelet mean volume (Bld) [Entitic vol] 10.5 fL 9.5 - 13.5 fL [facility] TBH EO # 0.1 [facility] TB PLT 198 [facility] RBC 3.85 Low [facility] WBC 10.9 [facility] Urinalysis macro (dipstick) panel (U)on 11-22-2024 Bilirubin, UA Negative Negative - 4(70) +++ mg/dL [facility] Blood, UA Negative Negative - 50 Mark/mcL [facility] Clarity, UA Clear [facility] Color, UA Yellow [facility] Glucose, UA Negative Negative - 1999(110) ++++ mg/dL [facility] Interpretation and review of laboratory results Abnormal [facility] Ketones, UA Negative Negative - 160(16) ++++ mg/dL [facility] Leukocytes, UA Moderate Negative - 500+++ Mahsa/mcL [facility] Nitrite, UA Negative Negative - Positive [facility] pH, UA 6 5 - 9 [facility] Protein, UA Negative Negative - 1999(20) ++++ mg/dL [facility] Spec Grav, UA 1.01 1 - 1.03 [facility] Urobilinogen, UA 0.2 0.2 - 12 mg/dL [facility] Urinalysis macro (dipstick) panel (U)on 10-26-2024 Bilirubin, UA Negative Negative - 4(70) +++ mg/dL [facility] Blood, UA Negative Negative - 50 Mark/mcL [facility] Clarity, UA Clear [facility] Color, UA Yellow [facility] Glucose, UA Negative Negative - 1999(110) ++++ mg/dL [facility] Interpretation and review of laboratory results Normal [facility] Ketones, UA Negative Negative - 160(16) ++++ mg/dL [facility] Leukocytes, UA Negative Negative - 500+++ Mahsa/mcL [facility] Nitrite, UA Negative Negative - Positive [facility] pH, UA 6.5 5 - 9 [facility] Protein, UA Negative Negative - 2000(20) ++++ mg/dL [facility] Spec Grav, UA 1.02 1 - 1.03 [facility] Urobilinogen, UA 0.2 0.2 - 12 mg/dL [facility] US OB 14+ WEEKS ANATOMY SCAN on [...] the anatomy. Interpreted by: Electronically signed by LEONIADS NICOLE II, MD, PHD at 27-Oct-2024 06:14:52 AM [facility] Normal Not Available Comment on above: Order Comment: US OB ANATOMY SINGLE W US OB CERVICAL LENGTH Estimated Date of Delivery: 02/26/25 Gestational Age as of 09/28/2024: 18w3d BOX TESTon 08-29-2024 BOX TEST SENT OUT [email or web address] [address]OX1 [email or web address] [address]2 08-29-24 [facility] BOX [facility] Urinalysis macro (dipstick) panel (U)on 08-29-2024 Bilirubin, UA Negative Negative - 4(70) +++ mg/dL [facility] Blood, UA Negative Negative - 50 Mark/mcL [facility] Clarity, UA Clear [facility] Color, UA Yellow [facility] Glucose, UA Negative Negative - 2000(110) ++++ mg/dL [facility] Interpretation and review of laboratory results Normal [facility] Ketones, UA Negative Negative - 160(16) ++++ mg/dL [facility] Leukocytes, UA Negative Negative - 500+++ Mahsa/mcL [facility] Nitrite, UA Negative Negative - Positive [facility] pH, UA 6 5 - 9 [facility] Protein, UA Negative Negative - 2000(20) ++++ mg/dL [facility] Spec Grav, UA 1.02 1 - 1.03 [facility] Urobilinogen, UA 0.2 0.2 - 12 mg/dL [facility] HCG ( test) Ql (U)o n 08-10-2024 Interpretation and review of laboratory results Abnormal [facility] Preg Test, Ur Positive Negative [facility] US OB < 14 WEEKS EARLYon US [...] II, MD, PHD at 11-Aug-2024 08:40:37 AM [facility] Normal Not Available Comment on above: Order Comment: US OB Patient's last menstrual period was 05/09/2024 (exact date). Urinalysis macro (dipstick) panel (U)on 08-10-2024 Bilirubin, UA Negative Negative - 4(70) +++ mg/dL [facility] Blood, UA Negative Negative - 50 Mark/mcL [facility] Clarity, [facility]A [facility] Color, UA Yellow [facility] Glucose, UA Negative Negative - 1999(110) ++++ mg/dL [facility] Interpretation and review of laboratory results Abnormal [facility] Ketones, UA Positive Negative - 160(16) ++++ mg/dL [facility] Comment on above: 40 Leukocytes, UA Negative Negative - 500+++ Mahsa/mcL [facility] Nitrite, UA Negative Negative - Positive [facility] pH, UA 5.5 5 - 9 [facility] Protein, UA Negative Negative - 1999(20) ++++ mg/dL [facility] Spec Grav, UA 1.02 1 - 1.03 [facility] Urobilinogen, UA 0.2 0.2 - 12 mg/dL [facility] Outside Recordson 04-20-2024 Outside Records [id number] 03-31-2024 Outside Records [id number] [facility] Consent Formson 02-18-2024 Consent Forms [id number][facility] Cytology Cervical or vaginal smear or scraping studyon 02-08-2024 [facility] HCG ( test) Ql (U)o n 02-08-2024 Interpretation and review of laboratory results Normal [facility] Preg Test, Ur Negative [facility] CMP Standardon 02-03-2024 eGFR Non AA >60 Invalid Interpretation Code [facility] Comment on above: Performed By: #### 1 [id number], [id number], 9387176, 1250734, 4275362, 4458357, 2296349 #### [facility] (DEFAULT) [address] [place] [address] 03460 eGFR AA >60 Invalid Interpretation Code [facility] Comment on above: Performed By: #### 1 [id number], [id number], 1797060, 2024728, 8789612, 3194890, 1921893 #### [facility] (DEFAULT) [address] [place] [address] 18375 Albumin [Mass/Vol] 4.4 g/dL Normal 3.5-5.0 [facility] Comment on above: Performed By: #### 1 [id number], [id number], 2098838, 5907678, 0158701, 3115283, 0078311 #### [facility] (DEFAULT) [address] [place] [address] 76076 Albumin/Globulin [Mass ratio] 1.4 {ratio} Normal 1.4-2.6 [facility] Comment on above: Performed By: #### 1 [id number], [id number], 0661484, 6620695, 2577035, 1956383, 5704100 #### [facility] (DEFAULT) [address] [place] [address] 32177 Alk Phos 67 IU/L Normal 32-91 [facility] Comment on above: Performed By: #### 1 [id number], [id number], 7437881, 8122542, 2211213, 7042385, 7279992 #### [facility] (DEFAULT) [address] [place] [address] 25502 ALT [Catalytic activity/Vol] 19.0 U/L Normal 14.0-54.0 [facility] Comment on above: Performed By: #### 1 [id number], [id number], 8985687, 2809433, 4639845, 8656156, 2003690 #### [facility] (DEFAULT) [address] [place] [address] 79712 Anion gap [Moles/Vol] 10.8 mmol/L Normal 5.0-19.0 [facility] Comment on above: Performed By: #### 1 [id number], [id number], 8331263, 6098675, 3804732, 9928515, 5636465 #### [facility] (DEFAULT) [address] [place] [address] 59451 AST [Catalytic activity/Vol] 21 U/L Normal 15-41 [facility] Comment on above: Performed By: #### 1 [id number], [id number], 1908295, 9560101, 2239202, 6257446, 2366246 #### [facility] (DEFAULT) [address] [place] [address] 38095 Bili Total 0.7 mg/dL Normal 0.3-1.2 [facility] Comment on above: Performed By: #### 1 [id number], 3346363395, 6776519, 9206695, 5897544, 4697612, 2804213 #### [facility] (DEFAULT) [address] [place] [address] 14685 Calcium [Mass/Vol] 8.9 mg/dL Normal 8.9-10.3 [facility] Comment on above: Performed By: #### 1 [id number], 8719153433, 2761855, 8199231, 0772938, 4763669, 3312347 #### [facility] (DEFAULT) [address] [place] [address] 65978 Chloride [Moles/Vol] 100 mmol/L Low 101-111 [facility] Comment on above: Performed By: #### 1 [id number], 1344105364, 4539664, 7134432, 9929853, 1705019, 9706832 #### [facility] (DEFAULT) [address] [place] [address] 87886 CO2 [Moles/Vol] 26 mmol/L Normal 21-32 [facility] Comment on above: Performed By: #### 1 [id number], 6365599370, 4407561, 6474773, 7367858, 8083596, 7741065 #### [facility] (DEFAULT) [address] [place] [address] 26014 Creatinine [Mass/Vol] 0.86 mg/dL Normal 0.60-1.30 [facility] Comment on above: Performed By: #### 1 [id number], 2992725804, 8391532, 6814673, 5633401, 8283603, 7782793 #### [facility] (DEFAULT) [address] [place] [address] 50892 Globulin (S) [Mass/Vol] 3.1 g/dL Normal 1.5-4.3 [facility] Comment on above: Performed By: #### 1 [id number], 8861077505, 0618481, 7018263, 5697608, 5981183, 0612974 #### [facility] (DEFAULT) [address] [place] [address] 74244 Glucose [Mass/Vol] 90.0 mg/dL Normal 74.0-118.0 [facility] Comment on above: Performed By: #### 1 [id number], 6206035168, 2680285, 6261945, 6948220, 3273024, 3739918 #### [facility] (DEFAULT) [address] [place] [address] 86010 Osmolality 267 mOsm/L Invalid Interpretation Code [facility] Comment on above: Performed By: #### 1 [id number], 1844547614, 9930376, 3100034, 5653798, 0025142, 1288786 #### [facility] (DEFAULT) [address] [place] [address] 41264 Potassium [Moles/Vol] 3.8 mmol/L Normal 3.6-5.1 [facility] Comment on above: Performed By: #### 1 [id number], 5859022840, 8414567, 1673746, 7828009, 5673981, 2380757 #### [facility] (DEFAULT) [address] [place] [address] 47644 Protein [Mass/Vol] 7.5 g/dL Normal 6.5-8.1 [facility] Comment on above: Performed By: #### 1 [id number], 6039375676, 8640757, 4201357, 7448021, 4104914, 8032089 #### [facility] (DEFAULT) [address] [place] [address] 57549 Sodium [Moles/Vol] 133.0 mmol/L Low 136.0-144.0 [facility] Comment on above: Performed By: #### 1 [id number], 8416637473, 2986088, 0549262, 1401842, 9481353, 4607397 #### [facility] (DEFAULT) [address] [place] [address] 93576 Urea nitrogen [Mass/Vol] 17 mg/dL Normal 8-26 [facility] Comment on above: Performed By: #### 1 [id number], 0637006816, 2121236, 4795570, 2985973, 2382470, 9545086 #### [facility] (DEFAULT) [address] [place] [address] 44399 Urea nitrogen/Creatinine [Mass ratio] 19.7 mg/mg High 4.6-16.2 [facility] Comment on above: Performed By: #### 1 [id number], 4536683934, 4689618, 7553421, 9033782, 6325967, 5958236 #### [facility] (DEFAULT) [address] [place] [address] 59824 GGTon 02-03-2024 Gamma glutamyl transferase [Catalytic activity/Vol] 20.0 U/L Normal 7.0-50.0 [facility] Comment on above: Performed By: #### 1 [id number], 9540623298, 4775746, 5091664, 4783330, 7431380, 1223609 #### [facility] (DEFAULT) [address] [place] [address] 50343 Iron Levelon 02-03-2024 Iron [Mass/Vol] 93.0 ug/dL Normal 28.0-170.0 [facility] Comment on above: Performed By: #### 1 [id number], 1988668953, 5463161, 2491239, 1099519, 1698028, 0322264 #### [facility] (DEFAULT) [address] [place] [address] 93243 LDHon 02-03-2024 LDH 126.0 IU/L Normal 98.0-192.0 [facility] Comment on above: Performed By: #### 1 [id number], 2890151365, 7966427, 8340546, 0842997, 3598006, 8922840 #### [facility] (DEFAULT) [address] [place] [address] 28166 Lipid Panel Standardon 02-02 Cholesterol [Mass/Vol] 214.0 mg/dL High 66.0-200.0 [facility] Comment on above: Performed By: #### 1 [id number], 6340499127, 5361195, 4146663, 0885915, 6375108, 4969943 #### [facility] (DEFAULT) [address] [place] [address] 24753 Cholesterol in HDL [Mass/Vol] 64 mg/dL Normal 40-71 [facility] Comment on above: Performed By: #### 1 [id number], 7166041833, 1021935, 3583340, 7469121, 1155232, 1389072 #### [facility] (DEFAULT) [address] [place] [address] 18174 Cholesterol in LDL [Mass/Vol] 144 mg/dL High 1-100 [facility] Comment on above: Performed By: #### 1 [id number], 6624992415, 8929961, 4057159, 0922736, 5767858, 8178460 #### [facility] (DEFAULT) [address] [place] [address] 26853 Cholesterol.total/C holesterol in HDL [Mass ratio] 3.3 {ratio} Normal 0.0-4.5 [facility] Comment on above: Performed By: #### 1 [id number], 8419291705, 1380824, 3756289, 9403693, 0891654, 5362699 #### [facility] (DEFAULT) [address] [place] [address] 89281 Triglyceride [Mass/Vol] 28.0 mg/dL Normal 0.0-150.0 [facility] Comment on above: Performed By: #### 1 [id number], [id number], 2185127, 1207839, 2726180, 7714980, 3286193 #### [facility] (DEFAULT) [address] [place] [address] VLDL. 6 mg/dL Normal 5-40 [facility] Comment on above: Performed By: #### 1 [id number], 4282994885, 1210262, 5179409, 8448255, 9567162, 6970622 #### [facility] (DEFAULT) [address] [place] [address] 09724 Phoson 02-03-2024 Phosphate [Mass/Vol] 2.9 mg/dL Normal 2.5-4.6 [facility] Comment on above: Performed By: #### 1 [id number], 2560548008, 5901445, 4529357, 2319385, 5648613, 9439066 #### [facility] (DEFAULT) [address] [place] [address] 08055 Uric Acidon 02-03-2024 Urate [Mass/Vol] 4.0 mg/dL Normal 2.6-8.0 [facility] Comment on above: Performed By: #### 1 [id number], 5923168973, 4712295, 5300984, 7857297, 5235573, 5251373 #### [facility] (DEFAULT) [address] [place] [address] XR chest 2V*on 03-02-2023 XR chest 2V* [facility] [address] [place] [address] [place] [address] XRay Report Signed Patient: Angelique Sanches MR#: [id number] : 1995 Acct:[id number] Age/Sex: 27 / F ADM Date: 03/02/23 Loc: XD[facility] Room: Type: [facility] Attending Dr: Lisandro Buitrago DO Copies to: Lisandro Buitrago DO Ordering Provider: Lisandro Buitrago DO Date of Service: 03/02/23 XR/XR shoulder LT min 2V*: Left shoulder pain ([id number]) XR/XR chest 2V*: Left shoulder pain;Chest pain [...] CLAVICLE. Impression dictated by: Terry Puentes Jr., D.O.03/02/2023 4:13 PM Dictation Location: [place] [address] Transcribed By: [facility] 03/02/231612 Dictated By: Terry Puentes Jr, DO 03/02/231611 Signed By: 03/02/23 161 Normal [facility] CBC W MANUAL DIFFon 07-29-19 22 ATYPICAL LYMPH # Normal [facility] Comment on above: Performed By: #### C GARRET #### [facility] [address] [place] [address] Dr. Susannah Hopkins ATYPICAL LYMPH % Normal [facility] Comment on above: Performed By: #### C GARRET #### [facility] [address] [place] [address] [address] Susannah Hopkins BAND # 0.3 103/ul Normal 0.0-0.3 [facility] Comment on above: Performed By: #### C BCOCTAVIANO #### [facility] [address] [place] [address] Dr. Susannah Hopkins BAND % 2 % Normal 0-5 [facility] Comment on above: Performed By: #### C GARRET #### [facility] [address] [place] [address] Dr. Susannah Hopkins BASOM # 0.00 103/ul Normal 0.00-0.10 [facility] Comment on above: Performed By: #### C GARRET #### [facility] [address] [place] [address] Dr. Susannah Hopkins BASOM % 0.0 % Critically low 0.2-2.0 [facility] Comment on above: Performed By: #### C GARRET #### [facility] [address] [place] [address] Dr. Susannah Hopkins BLAST # Normal [facility] Comment on above: Performed By: #### C GARRET #### [facility] [address] [place] [address] Dr. Susannah Hopkins BLAST % Normal [facility] Comment on above: Performed By: #### C GARRET #### [facility] [address] [place] [address] Dr. Susannah Hopkins CORRECTED WBC Normal 4.0-11.0 [facility] Comment on above: Performed By: #### C GARRET #### [facility] [address] [place] [address] Dr. Susannah Hopkins EOS # 0.00 103/ul Normal 0.00-0.70 [facility] Comment on above: Performed By: #### C GARRET #### [facility] [address] [place] [address] Dr. Susannah Hopkins EOS% 0.0 % Critically low 0.9-7.0 [facility] Comment on above: Performed By: #### C GARRET #### [facility] [address] [place] [address] Dr. Susannah Hopkins HCT 46.0 % Normal 36.0-48.0 [facility] Comment on above: Performed By: #### C BCMAN #### [facility] [address] [place] [address] Dr. Susannah Hopkins HGB 15.7 g/dl Normal 12.0-16.0 [facility] Comment on above: Performed By: #### C BCMAN #### [facility] [address] [address] [address] Susannah Hopkins LYMPHM # 0.69 103/ul Critically low 1.20-3.80 [facility] Comment on above: Performed By: #### C BCMAN #### [facility] [address] [place] [address] Dr. Susannah Hopkins LYMPHM% 4.0 % Critically low 20.5-60.0 [facility] Comment on above: Performed By: #### C BCMAN #### [facility] [address] [place] [address] Dr. Susannah Hopkins MCH 30.1 pg Normal 26.7-34.0 [facility] Comment on above: Performed By: #### C BCOCTAVIANO #### [facility] [address] [place] [address] Dr. Susannah Hopkins MCHC 34.1 g/dl Normal 29.9-35.2 [facility] Comment on above: Performed By: #### C BCOCTAVIANO #### [facility] [address] [place] [address] Dr. Susannah Hopkins MCV 88.3 fL Normal 81.0-99.0 [facility] Comment on above: Performed By: #### C BCOCATVIANO #### [facility] [address] [place] [address] Dr. Susannah Hopkins METAMYELOCYTE # Normal [facility] Comment on above: Performed By: #### C BCOCTAVIANO #### [facility] [address] [place] [address] Dr. Susannah Hopkins METAMYELOCYTE % Normal [facility] Comment on above: Performed By: #### C BCOCTAVIANO #### [facility] [address] [place] [address] Dr. Susannah Hopkins MONOM# 1.20 103/ul Critically high 0.30-0.80 [facility] Comment on above: Performed By: #### C GARRET #### [facility] [address] [place] [address] Dr. Susannah Hopkins MONOM% 7.0 % Normal 1.7-12.0 [facility] Comment on above: Performed By: #### C GARRET #### [facility] [address] [place] [address] Dr. Susannah Hopkins MPV 9.8 fL Normal 9.5-13.5 [facility] Comment on above: Performed By: #### C GARRET #### [facility] [address] [place] [address] Dr. Susannah Hopkins MYELOCYTE # Normal [facility] Comment on above: Performed By: #### C GARRET #### [facility] [address] [place] [address] Dr. Susannah Hopkins MYELOCYTE % Normal [facility] Comment on above: Performed By: #### C GARRET #### [facility] [address] [place] [address] Dr. Susannah Hopkins NRBC Normal [facility] Comment on above: Performed By: #### C GARRET #### [facility] [address] [place] [address] Dr. Susannah Hopkins PLT 278 103/ul Normal 150-450 [facility] Comment on above: Performed By: #### C GARRET #### [facility] [address] [place] [address] Dr. Susannah Hopkins RBC 5.21 106/ul Normal 4.20-5.40 [facility] Comment on above: Performed By: #### C GARRET #### [facility] [address] [place] [address] Dr. Susannah Hopkins RDW 11.7 % Normal 11.0-15.0 [facility] Comment on above: Performed By: #### C GARRET #### [facility] [address] [place] [address] Dr. Susannah Hopkins SEG # 14.96 103/ul Critically high 1.40-6.50 [facility] Comment on above: Performed By: #### C GARRET #### [facility] [address] [place] [address] Dr. Susannah Hopkins SEG % 87.0 % Critically high 43.0-75.0 [facility] Comment on above: Performed By: #### C GARRET #### [facility] [address] [address] [address] Susannah Hopkins WBC 17.2 103/ul Critically high 4.0-11.0 [facility] Comment on above: Performed By: #### C GARRET #### [facility] [address] [place] [address] Dr. Susannah Hopkins INFLUENZA A AND B AGon 07-28 [facility] SEE BELOW Normal [facility] Comment on above: Result Comment: Nega tive for Flu A protein angiten. Infection due to Flu A cannot be ruled out. Flu A angiten in the sample may be below the detection limit of the test. Performed By: #### I NFLUAB #### [facility] [address] [place] [address] Dr. Susannah Hopkins [facility] SEE BELOW Normal [facility] Comment on above: Result Comment: Nega tive for Flu B protein antigen. Infection due to Flu B cannot be ruled out. Flu B antigen in the sample may be below the detection limit of the test. Performed By: #### I NFLUAB #### [facility] [address] [place] [address] Dr. Susannah Hopkins INFLUENZA A AG Negative Normal NEGATIVE SEE COMMENT [facility] Comment on above: Performed By: #### I NFLUAB #### [facility] [address] [place] [address] Dr. Susannah Hopkins INFLUENZA B AG Negative Normal NEGATIVE SEE COMMENT [facility] Comment on above: Performed By: #### I NFLUAB #### [facility] [address] [place] [address] Dr. Susannah Hopkins INTERNAL CONTROLS Within Normal Limits Normal Within Normal Limits [facility] Comment on above: Performed By: #### I NFLUAB #### [facility] [address] [address] [address] Susannah Hopkins PREG HCG QUALon 07-28-2021 , QUAL Negative Normal NEGATIVE [facility] Comment on above: Performed By: #### P REG #### [facility] [address] [place] [address] Dr. Susannah Hopkins PROF 14(COMP METB)on 022 Albumin [Mass/Vol] 4.4 g/dL Normal 3.4-5.0 [facility] Comment on above: Performed By: #### C MP #### [facility] [address] [place] [address] Dr. Susannah Hopkins Albumin/Globulin [Mass ratio] 1.1 {ratio} Normal [facility] Comment on above: Performed By: #### C MP #### [facility] [address] [place] [address] Dr. Susannah Hopkins ALP [Catalytic activity/Vol] 71 U/L Normal 46-116 [facility] Comment on above: Performed By: #### C MP #### [facility] [address] [place] [address] Dr. Susannah Hopkins ALT [Catalytic activity/Vol] 19 U/L Normal 14-59 [facility] Comment on above: Performed By: #### C MP #### [facility] [address] [place] [address] Dr. Susannah Hopkins Anion gap [Moles/Vol] 15.1 mmol/L Normal [facility] Comment on above: Performed By: #### C MP #### [facility] [address] [address] [address] Susannah Hopkins AST [Catalytic activity/Vol] 23 U/L Normal 15-37 [facility] Comment on above: Performed By: #### C MP #### [facility] [address] [place] [address] Dr. Susannah Hopkins Bilirubin [Mass/Vol] 0.9 mg/dL Normal 0.2-1.3 [facility] Comment on above: Performed By: #### C MP #### [facility] [address] [address] [address] Susannah Hopkins Calcium [Mass/Vol] 9.5 mg/dL Normal 8.5-10.1 [facility] Comment on above: Performed By: #### C MP #### [facility] [address] [address] [address] Susannah Hopkins Chloride [Moles/Vol] 101 mmol/L Normal 98-107 [facility] Comment on above: Performed By: #### C MP #### [facility] [address] [address] [address] Susannah Hopkins CO2 [Moles/Vol] 23.8 mmol/L Normal 22.0-30.0 [facility] Comment on above: Performed By: #### C MP #### [facility] [address] [place] [address] Dr. Susannah Hopkins Creatinine [Mass/Vol] 1.04 mg/dL Normal 0.52-1.04 [facility] Comment on above: Performed By: #### C MP #### [facility] [address] [address] [address] Susannah Hopkins EGFR-AF FRENCH >60 Normal >=60 [facility] Comment on above: Performed By: #### C MP #### [facility] [address] [place] [address] Dr. Susannah Hopkins EGFR-NON AF FRENCH >60 Normal >=60 [facility] Comment on above: Performed By: #### C MP #### [facility] [address] [place] [address] Dr. Susannah Hopkins Globulin (S) [Mass/Vol] 3.9 g/dL Normal [facility] Comment on above: Performed By: #### C MP #### [facility] [address] [place] [address] Dr. Susannah Hopkins Glucose [Mass/Vol] 157 mg/dL Critically high 74-106 [facility] Comment on above: Performed By: #### C MP #### [facility] [address] [place] [address] Dr. Susannah Hopkins Potassium [Moles/Vol] 3.9 mmol/L Normal 3.4-5.0 [facility] Comment on above: Performed By: #### C MP #### [facility] [address] [address] [address] Susannah Hopkins Protein [Mass/Vol] 8.3 g/dL Critically high 6.1-8.2 [facility] Comment on above: Performed By: #### C MP #### [facility] [address] [address] [address] Susannah Hopkins Sodium [Moles/Vol] 136 mmol/L Critically low 137-145 [facility] Comment on above: Performed By: #### C MP #### [facility] [address] [address] [address] Susannah Hopkins Urea nitrogen [Mass/Vol] 20.0 mg/dL Critically high 7.0-18.0 [facility] Comment on above: Performed By: #### C MP #### [facility] [address] [address] [address] Susannah Hopkins Urea nitrogen/Creatinine [Mass ratio] 19.2 mg/mg Normal [facility] Comment on above: Performed By: #### C MP #### [facility] [address] [place] [address] Dr. Susannah Hopkins Vital Signs Date Time Vital Sign Value Performing Clinician Facility 11-22-2024 08:52-0400 Body mass index (BMI) [Ratio] 28.19 kg/m2 Nadine DE JESUS Work Phone: [facility] 11-22-2024 08:52-0400 Body weight 72.18 kg Nadine DE JESUS Work Phone: [facility] 11-22-2024 08:52-0400 Diastolic blood pressure 76 mm[Hg] Nadine DE JESUS Work Phone: [facility] 11-22-2024 08:52-0400 Systolic blood pressure 120 mm[Hg] Nadine DE JESUS Work Phone: [facility] 10-26-2024 12:05-0400 Body mass index (BMI) [Ratio] 26.93 kg/m2 Rocio Blake DO Work Phone: [facility] 10-26-2024 12:05-0400 Body weight 68.95 kg Rocio Blake DO Work Phone: [facility] 10-26-2024 12:05-0400 Diastolic blood pressure 68 mm[Hg] Rocio Blake DO Work Phone: [facility] 10-26-2024 12:05-0400 Systolic blood pressure 120 mm[Hg] Rocio Blake DO Work Phone: [facility] 08-29-2024 14:34-0400 Body mass index (BMI) [Ratio] 25.65 kg/m2 Rocio Blake DO Work Phone: [facility] 08-29-2024 14:34-0400 Body weight 65.68 kg Rocio Blake DO Work Phone: [facility] 08-29-2024 14:34-0400 Diastolic blood pressure 72 mm[Hg] Rocio Blake DO Work Phone: [facility] 08-29-2024 14:34-0400 Systolic blood pressure 120 mm[Hg] Rocio Blake DO Work Phone: [facility] 08-10-2024 14:55-0400 Body height 160 cm [facility] Nurse [facility] 08-10-2024 14:55-0400 Body mass index (BMI) [Ratio] 25.18 kg/m2 [facility] 08-10-2024 14:55-0400 Body weight 64.47 kg Noms Nurse [facility] 08-10-2024 14:55-0400 Diastolic blood pressure 76 mm[Hg] [facility] Nurse [facility] 08-10-2024 14:55-0400 Systolic blood pressure 120 mm[Hg] [facility] 05-16-2024 12:44-0500 Body weight 65.32 kg Attila Bundy MD Work Phone: [facility] 05-16-2024 12:44-0500 Diastolic blood pressure 78 mm[Hg] Attila Bundy MD Work Phone: [facility] [employer] 05-16-2024 12:44-0500 Systolic blood pressure 120 mm[Hg] Attila Bundy MD Work Phone: [facility] 02-08-2024 15:08-0400 Body weight 66.22 kg Attila Bundy MD Work Phone: [facility] 02-08-2024 15:08-0400 Diastolic blood pressure 68 mm[Hg] Attila Bundy MD Work Phone: [facility] 02-08-2024 15:08-0400 Systolic blood pressure 130 mm[Hg] Attila Bundy MD Work Phone: [facility] [employer] 05-12-2023 07:30-0500 Body height 158.75 cm Tyrell Stiles Other [employer] Other 05-12-2023 07:30-0500 Body mass index (BMI) [Ratio] 25.41 kg/m2 Tyrell Stiles Other [employer] Other 05-12-2023 07:30-0500 Body weight 64.05 kg Tyrell Stiles Other [employer] Other 05-12-2023 07:30-0500 Diastolic blood pressure 78 mm[Hg] Tyrell Stiles Other [employer] Other 05-12-2023 07:30-0500 Respiratory rate 16 /min Tyrell Stiles Other [employer] Other 05-12-2023 07:30-0500 SaO2% (BldA) [Mass fraction] 98 % Tyrell Stiles Other [employer] Other 05-12-2023 07:30-0500 Systolic blood pressure 122 mm[Hg] Tyrell Stiles Other [employer] Other 02-24-2023 12:30-0400 Body height 158.75 cm Lisandroteri Martínezs Other [employer] Other 02-24-2023 12:30-0400 Body mass index (BMI) [Ratio] 25.2 kg/m2 Lisandro Mauricios Other [employer] Other 02-24-2023 12:30-0400 Body weight 63.5 kg Lisandro Mauricios Other [employer] Other 02-24-2023 12:30-0400 Diastolic blood pressure 85 mm[Hg] Lisandro Mauricios Other [employer] Other 02-24-2023 12:30-0400 Respiratory rate 16 /min Lisandro Mauricios Other [employer] Other 02-24-2023 12:30-0400 SaO2% (BldA) [Mass fraction] 99 % Lisandro Mauricios Other [employer] Other 02-24-2023 12:30-0400 Systolic blood pressure 140 mm[Hg] Lisandro Mauricios Other [employer] Other Encounters Encounter Date Encounter Type Care Provider Facility Start: 11-22-2024 End: 11-22-2024 Clinisync Result Encounter Rocio Blake DO Work Phone: [facility] Unsolicited Start: 11-22-2024 End: 11-22-2024 Clinisync Result Encounter Rocio Blake DO Work Phone: [facility] Unsolicited Start: 11-22-2024 End: 11-22-2024 flow sheet Nadine DE JESUS Work Phone: [facility] Comment on above: 26 weeks gestation o f ([facility]); Second trimester ([facility]); Elevated glucose tolerance test Start: 11-22-2024 End: 11-22-2024 ambulatory NADINE MANDY Not Available Start: 10-26-2024 End: 10-26-2024 ambulatory ROCIO BLAKE Not Available Start: 10-26-2024 End: 10-26-2024 flow sheet Rocio Blake DO Work Phone: [facility] Comment on above: Second trimester pre gnancy ([facility]); 22 weeks gestation of ([facility]); Diabetes mellitus screening Start: 10-26-2024 End: 10-26-2024 ambulatory ROCIO BLAKE Not Available Start: 09-28-2024 End: 09-28-2024 ambulatory NADINE MANDY Not Available Start: 08-29-2024 End: 08-29-2024 flow [...] [id number] Start: 07-11-2024 End: 07-11-2024 ambulatory ROCIO LOZANO Not Available Start: 05-16-2024 End: 05-16-2024 Office outpatient visit 15 minutes Attila Bundy MD Work Phone: [facility] Comment on above: Hormone imbalance (P rimary Dx); Amenorrhea; Missed menses; Family planning; Thyroid disorder screen Start: 05-16-2024 End: 05-16-2024 ambulatory ATTILA BUNDY Not Available Start: 03-30-2024 End: 03-30-2024 ambulatory Zita Alanis Facility: [facility] Start: 02-08-2024 End: 02-08-2024 Patient encounter status Attila Bundy MD Work Phone: [facility] Start: 02-08-2024 End: 02-08-2024 Periodic preventive med est patient 18-39 yrs Attila Bundy MD Work Phone: [facility] Comment on above: Amenorrhea (Primary Dx); Screening for malignant neoplasm of cervix; Encounter for gynecological examination without abnormal finding; Encounter for surveillance of vaginal ring hormonal contraceptive device; Missed menses Start: 02-08-2024 End: 02-08-2024 ambulatory ATTILA BUNDY Not Available Start: 01-24-2024 End: 01-24-2024 ambulatory Facility:[facility] Start: 07-27-2023 End: 07-27-2023 ambulatory Zita Klregla Facility: [facility] Start: 07-05-2023 End: 07-05-2023 ambulatory Zita Klterrence Facility: [facility] Start: 05-12-2023 End: 05-12-2023 ambulatory Tyrell Stiles Other [employer] Other Start: 05-12-2023 Office outpatient vi sit 15 minutes Tyrell Stiles [facility] [place] Start: 03-02-2023 End: 03-02-2023 ambulatory Lisandro Buitrago Facility:[facility] Start: 03-02-2023 End: 03-02-2023 ambulatory DO Lisandro Buitrago Work Phone: [facility] Work Phone: Start: 03-02-2023 End: 03-02-2023 Patient encounter procedure DO Lisandro Buitrago Work Phone: [facility] Start: 02-24-2023 End: 02-24-2023 ambulatory Lisandro Buitrago Other [place] [employer] Other Start: 02-24-2023 Encounter for genera l adult medical examination without abnormal findings Lisandro Buitrago [facility] [place] Start: 02-24-2023 Office outpatient ne w 30 minutes Lisandro Buitrago [facility] [place] Start: 07-28-2021 End: 07-28-[address] JANES GARCIA Facility: Procedures Date Procedure Procedure Detail Performing Clinician Start: 11-22-2024 Urnls dip stick/tabl et rgnt non-auto w/o micrscp Nadine DE JESUS Work Phone: Start: 11-22-2024 ALL CBC WITH AUTO DIFF Rocio Blake DO Work Phone: Start: 10-26-2024 Urnls dip stick/tabl et rgnt non-auto w/o micrscp Rocio Blake DO Work Phone: Start: 08-29-2024 Urnls dip stick/tabl et rgnt non-auto w/o micrscp Rocio Blake DO Work Phone: Start: 08-29-2024 BOX TEST Rocio Fazi o DO Work Phone: Start: 08-10-2024 Urnls dip stick/tabl et rgnt non-auto w/o micrscp Rocio Blake DO Work Phone: Start: 02-08-2024 Urine test visual color cmprsn swetha Bundy MD Work Phone: Start: 02-08-2024 Cytp cerv/vag auto t hin layer prep mnl screen Rocio Blake DO Work Phone: Start: 03-02-2023 Plain chest X-ray DO [facility] [employer] Work Phone: Start: 03-02-2023 Plain X-ray of left shoulder DO [employer]andro [employer] Work Phone: Plan of Treatment Date Care Activity Detail Author Start: 01-08-2025 Influenza vaccination N [facility] Start: 12-05-2024 End: 12-05-2024 Patient encounter procedure 12/05/2024 9:00 AM EDT Routine [facility] [address] [address] Rocio Lozano, DO [address] [place], [place] [id number] [facility] Start: 11-22-2024 End: 11-22-2025 Measurement of glucose 3 hours after glucose challenge for glucose tolerance test Glucose tolerance, 3 hours Lab Routine Elevated glucose tolerance test Expected: 11/22/2024 (Approximate), Expires: 11/22/2025 [facility] Work Phone: Comment on above: Expected: 11/22/2024 (Approximate), Expires: 11/22/2025 Start: 11-22-2024 End: 11-22-2024 Patient encounter procedure 11/22/2024 8:50 AM EDT Routine [facility] [address] [place] [address] Nadine Galvan PA [address] [place], [place] [id number] [facility] Start: 10-26-2024 End: 10-26-2025 CBC panel - Blood by Automated count CBC Lab Routine Diabetes mellitus screening Expected: 10/26/2024 (Approximate), Expires: 10/26/2025 [facility] Work Phone: Comment on above: Expected: 10/26/2024 (Approximate), Expires: 10/26/2025 Start: 10-26-2024 End: 10-26-2025 Measurement of glucose 1 hour after glucose challenge for glucose tolerance test Glucose tolerance, 1 hour Lab Routine Diabetes mellitus screening Expected: 10/26/2024 (Approximate), Expires: 10/26/2025 [facility] Comment on above: Expected: 10/26/2024 (Approximate), Expires: 10/26/2025 Start: 09-27-2024 End: 09-27-2024 Patient encounter procedure 09/27/2024 3:30 PM EDT Routine [facility] [address] [place] [address] Nadine Galvan PA [address] [place] [address] [facility] Start: 08-29-2024 End: 08-29-2024 Patient encounter procedure [facility] Comment on above: Arrived Start: 07-27-2024 End: 07-27-2024 ambulatory 07/27/2024 10:30 AM EDT Initial [facility] [address] [place] [phone] Attila Bundy MD [address] [place] [address] [facility] Start: 07-17-2024 End: 07-17-2024 Patient encounter procedure 07/17/2024 12:30 PM EDT Office Visit [facility] [address] [place] [phone] Attila Bundy MD [address] [place] [address] [facility] Start: 07-17-2024 End: 07-17-2024 Professional / ancillary services management 07/17/2024 8:30 AM EDT Ancillary Procedure [facility] [address] [place] [id number] [facility] Start: 07-11-2024 End: 07-11-2025 Bacteria identified in Urine by Culture Urine culture Microbiology Routine Encounter for supervision of normal first in first trimester Expected: 07/11/2024, Expires: 07/11/2025 [facility] Comment on above: Expected: 07/11/2024 , Expires: 07/11/2025 Start: 07-11-2024 End: 07-11-2025 BEACON CARRIER SCREEN;14 GENES BEACON CARRIER SCREEN;14 GENES Lab Routine Screening for genetic disease carrier status Expected: 07/11/2024 (Approximate), Expires: 07/11/2025 [facility] Comment on above: Expected: 07/11/2024 (Approximate), Expires: 07/11/2025 Start: 07-11-2024 End: 07-11-2025 Blood type and Indirect antibody screen panel - Blood Type and screen Lab Routine Encounter for supervision of normal first in first trimester Expected: 07/11/2024, Expires: 07/11/2025 [facility] Comment on above: Expected: 07/11/2024 , Expires: 07/11/2025 Start: 07-11-2024 End: 07-11-2025 CBC W Auto Differential panel - Blood CBC and differential Lab Routine Encounter for supervision of normal first in first trimester Expected: 07/11/2024, Expires: 07/11/2025 [facility] Comment on above: Expected: 07/11/2024 , Expires: 07/11/2025 Start: 07-11-2024 End: 07-11-2025 DRUG SCREEN 17 W/CONF, UR DRUG SCREEN 17 W/CONF, UR Lab Routine Encounter for drug screening Expected: 07/11/2024, Expires: 07/11/2025 [facility] Comment on above: Expected: 07/11/2024 , Expires: 07/11/2025 Start: 07-11-2024 End: 07-11-2025 Hepatitis B virus surface Ag [Presence] in Serum or Plasma by Immunoassay Hepatitis B surface antigen Lab Routine Encounter for supervision of normal first in first trimester Expected: 07/11/2024, Expires: 07/11/2025 [facility] Comment on above: Expected: 07/11/2024 , Expires: 07/11/2025 Start: 07-11-2024 End: 07-11-2025 Hepatitis C virus Ab [Presence] in Serum or Plasma by Immunoassay Hepatitis C antibody Lab Routine Encounter for supervision of normal first in first trimester Expected: 07/11/2024, Expires: 07/11/2025 [facility] Comment on above: Expected: 07/11/2024 , Expires: 07/11/2025 Start: 07-11-2024 End: 07-11-2025 HIV-1/HIV-2 antigen/antibody combination immunoassay HIV-1 and HIV-2 antibodies Lab Routine Encounter for supervision of normal first in first trimester Expected: 07/11/2024, Expires: 07/11/2025 [facility] Comment on above: Expected: 07/11/2024 , Expires: 07/11/2025 Start: 07-11-2024 End: 07-11-2025 [id number] PLUS Core+SCA [id number] PLUS Core+SCA Lab Routine Encounter for screening for chromosomal anomalies Expected: 07/11/2024 (Approximate), Expires: 07/11/2025 [facility] Comment on above: Expected: 07/11/2024 (Approximate), Expires: 07/11/2025 Start: 07-11-2024 End: 07-11-2025 Reagin Ab [Presence] in Serum by RPR RPR Lab Routine Encounter for supervision of normal first in first trimester Expected: 07/11/2024, Expires: 07/11/2025 [facility] Comment on above: Expected: 07/11/2024 , Expires: 07/11/2025 Start: 07-11-2024 End: 07-11-2025 Rubella antibody, IgG Rubella antibody, IgG Lab Routine Encounter for supervision of normal first in first trimester Expected: 07/11/2024, Expires: 07/11/2025 [facility] Comment on above: Expected: 07/11/2024 , Expires: 07/11/2025 Start: 07-11-2024 End: 07-11-2025 Urinalysis complete panel - Urine Urinalysis with microscopic Lab Routine Encounter for supervision of normal first in first trimester Expected: 07/11/2024, Expires: 07/11/2025 [facility] Work Phone: Comment on above: Expected: 07/11/2024 , Expires: 07/11/2025 Start: 05-16-2024 End: 05-16-2025 Cortisol Cortisol Lab Routine Hormone imbalance Expected: 05/16/2024, Expires: 05/16/2025 [facility] Comment on above: Expected: 05/16/2024 , Expires: 05/16/2025 Start: 05-16-2024 End: 05-16-2025 DHEA-sulfate DHEA-sulfate Lab Routine Hormone imbalance Expected: 05/16/2024, Expires: 05/16/2025 [facility] Comment on above: Expected: 05/16/2024 , Expires: 05/16/2025 Start: 05-16-2024 End: 05-16-2025 Estradiol Estradiol Lab Routine Hormone imbalance Expected: 05/16/2024, Expires: 05/16/2025 [facility] Comment on above: Expected: 05/16/2024 , Expires: 05/16/2025 Start: 05-16-2024 End: 05-16-2025 Estrone Estrone Lab Routine Hormone imbalance Expected: 05/16/2024, Expires: 05/16/2025 [facility] Comment on above: Expected: 05/16/2024 , Expires: 05/16/2025 Start: 05-16-2024 End: 05-16-2025 Follicle stimulating hormone Follicle stimulating hormone Lab Routine Hormone imbalance Thyroid disorder screen Expected: 05/16/2024, Expires: 05/16/2025 [facility] Comment on above: Expected: 05/16/2024 , Expires: 05/16/2025 Start: 05-16-2024 End: 05-16-2025 Insulin, fasting Insulin, fasting Lab Routine Amenorrhea Missed menses Hormone imbalance Expected: 05/16/2024, Expires: 05/16/2025 [facility] Comment on above: Expected: 05/16/2024 , Expires: 05/16/2025 Start: 05-16-2024 End: 05-16-2025 Luteinizing hormone Luteinizing hormone Lab Routine Hormone imbalance Thyroid disorder screen Expected: 05/16/2024, Expires: 05/16/2025 [facility] Comment on above: Expected: 05/16/2024 , Expires: 05/16/2025 Start: 05-16-2024 End: 05-16-2025 Progesterone Progesterone Lab Routine Hormone imbalance Expected: 05/16/2024, Expires: 05/16/2025 [facility] Comment on above: Expected: 05/16/2024 , Expires: 05/16/2025 Start: 05-16-2024 End: 05-16-2025 Sex hormone binding globulin Sex hormone binding globulin Lab Routine Hormone imbalance Expected: 05/16/2024, Expires: 05/16/2025 [facility] Comment on above: Expected: 05/16/2024 , Expires: 05/16/2025 Start: 05-16-2024 End: 05-16-2025 Testosterone, free, total Testosterone, free, total Lab Routine Hormone imbalance Expected: 05/16/2024, Expires: 05/16/2025 [facility] Comment on above: Expected: 05/16/2024 , Expires: 05/16/2025 Start: 05-16-2024 End: 05-16-2025 Thyrotropin [Units/volume] in Serum or Plasma TSH Lab Routine Hormone imbalance Thyroid disorder screen Expected: 05/16/2024, Expires: 05/16/2025 [facility] Work Phone: Comment on above: Expected: 05/16/2024 , Expires: 05/16/2025 Start: 05-16-2024 End: 05-16-2025 Vitamin D 1,25 dihydroxy Vitamin D 1,25 dihydroxy Lab Routine Hormone imbalance Expected: 05/16/2024, Expires: 05/16/2025 [facility] Comment on above: Expected: 05/16/2024 , Expires: 05/16/2025 Start: 05-16-2024 End: 05-16-2024 Patient encounter procedure 05/16/2024 12:30 PM EST Office Visit [facility] [address] [place] [id number] Attila Bundy MD [address] [place] [address] [facility] Start: 02-08-2024 End: 02-07-2025 Follicle stimulating hormone Follicle stimulating hormone Lab Routine Amenorrhea Expected: 02/08/2024 (Approximate), Expires: 02/07/2025 [facility] Comment on above: Expected: 02/08/2024 (Approximate), Expires: 02/07/2025 Start: 01-09-2024 Influenza vaccination Influenza Vacc ine (#1) [facility] hCG, qualitative hCG, qualitativ e Lab Routine Amenorrhea Ordered: 02/08/2024 [facility] Comment on above: Ordered: 02/08/2024 Hemoglobin A1c/Hemoglobin.total in Blood Hemoglobin A1c Lab Routine with uncertain dates, antepartum Ordered: 08/10/2024 [facility] Work Phone: Comment on above: Ordered: 08/10/2024 Luteinizing hormone Luteinizing hormone Lab Routine Amenorrhea Ordered: 02/08/2024 [facility] Comment on above: Ordered: 02/08/2024 Progesterone Progesterone Lab Routine Amenorrhea Ordered: 02/08/2024 [facility] Comment on above: Ordered: 02/08/2024 SENDOUT TEST MISCELLANEOUS [facility] SENDOUT TEST MISCELLANEOUS [facility] Lab Routine Screening for malignant neoplasm of cervix Encounter for gynecological examination without abnormal finding Ordered: 02/08/2024 [facility] Work Phone: Comment on above: Ordered: 02/08/2024 Testosterone, free, total Testosterone, free, total Lab Routine Amenorrhea Ordered: 02/08/2024 [facility] Comment on above: Ordered: 02/08/2024 Immunizations Immunization Date Immunization Notes Care Provider Flako garrison 09-25-2020 COVID-19 Vaccine Moderna - Documentation Purposes Only Lisandro Buitrago Other [facility] Other 08-21-2020 COVID-19 Vaccine Moderna - Documentation Purposes Only Lisandro Buitrago Other [facility] Other Payers Date Payer Category Payer Unknown [id number] 2023 Private Health Insurance [id number] 2023 Private Health Insurance [id number] 2023 Unknown [id number] 2. [id number] 1995 Unknown [id number] 2.16.84 [id number] 1995 Unknown [id number] 2.16.8 [id number] 1995 Unknown [id number] 2.16.8 [id number] 1995 Unknown [id number] 2.16.8 [id number] 1995 Unknown [id number] 2.16.8 40.1.040195.3.579.2.9 1995 Unknown [id number] 2.16.8 40.1.315281.3.579.2.9 1995 Unknown [id number] 2.16.8 40.1.727440.3.579.2.1259 1995 Unknown [id number] 2.16.84 0.1.453354.3.579.2.9 1995 Unknown [id number] 2.16.84 0.1.815696.3.579.2.9 1995 Unknown [id number] 2.16.84 0.1.987689.3.579.2.1259 1995 Unknown [id number] 2.16.84 0.1.664782.3.579.2.1259 1995 Unknown [id number] 2.16.84 0.1.996215.3.579.2.1259 1995 Unknown [id number] 2.16.84 0.1.011883.3.579.2.1259 1995 Unknown [id number] 2.16.84 [id number] 1959 Self-pay Unknown [id number] Unknown [id number] 2.16.8 [id number] Social History Date Type Detail Facility Start: 02-08-2024 End: 05-16-2024 Sex Assigned At [facility] [email or web address] Other Start: 1995 Sex Assigned At Female F [facility] Start: 05-15-2023 [facility] Start: 05-15-2023 [...] file [facility] Start: 05-16-2024 End: 11-22-2024 Alcoholic beverage intake Ex-drinker (finding) [facility] Start: 07-11-2024 Alcohol Comment caffeine intake: rar e [facility] Start: 05-23-2024 [facility] Go[facility] Date Patient Goal Desired Activity /State Personal health goal Clinical Notes 02-24-2023 to 11-22-2024 LIZA Zaldivar - 11/22/2024 8:50 AM EDMeng Gonzalez MA - 10/26/2024 11:50 AM Elton Borrego LPN - 08/29/2024 2:10 PM Olivia Jacinto LPN - 08/10/2024 2:00 PM EDTPatient Instructions Note Date & Type Note Facility 11-22-2024 History of Presen t illness Narrative Reason for Appointment: Patient ID: Angelique Carlos [...] Gilda Felixp Colon cancer Paternal Grandfather Skyler Sanches Cancer [...] Vitals: Estimated body mass index is 28.19 kg/m as calculated from the following: Height as of 08/10/24: 5' 3 . Weight as of this encounter: 159 lb 1.9 oz. BP: 120/76 Patient's last menstrual period was 05/09/2024 (exact date). ASSESSMENT & PLAN ICD-10-CM 1. 26 weeks gestation of ([facility]) Z3A.26 POCT urinalysis dipstick manually resulted 2. Second trimester ([facility]) Z34.92 POCT urinalysis dipstick manually resulted 3. [...] of: LIZA Zaldivar documented in this encounter [facility] 10-26-2024 History of Presen t illness Narrative Reason for Appointment: Patient ID: Angelique Carlos [...] 1. Second trimester ([facility] Z34.92 POCT urinalysis dipstick manually resulted 2. 22 weeks gestation of ([facility]) Z3A.22 3. Diabetes mellitus screening Z13.1 CBC [...] Rocio Lozano DO documented in this encounter [facility] 08-29-2024 History of Presen t illness Narrative Reason for Appointment: Patient ID: Angelique Carlos [...] Grandmother Maricarmen Potts Hypothyroidism Maternal Grandfather Kwan Swiney Thyroid disease Maternal Grandfather Kwan Swiney Breast cancer Paternal Grandmother Gilda Walp Lung cancer Paternal Grandmother Gilda Walp Colon cancer Paternal Grandfather Skyler Walp [...] nursing note reviewed. Exam conducted with a traveling electrician present. Vitals: Estimated body mass index is [...] or undercooked meat, and stay away from [facility]. Patient has been consulted regarding any further do's and don'ts of . Patient voiced understanding and all questions and concerns were answered. Orders Placed This Encounter Procedures POCT urinalysis dipstick manually resulted Follow Up: Patient is to return in 4 weeks for routine OB appointment. Documented by Zita Borrego LPN on behalf of: Rocio Lozano DO documented in this encounter [facility] 08-10-2024 History of Presen t illness Narrative Reason for Appointment: Patient ID: Angelique Carlos [...] Esmer Sanches Polycystic ovary syndrome Mother Esmer Walp Thyroid disease Mother Esmer Sanches Polycystic ovary syndrome Sister Breast cancer Maternal Grandmother Maricarmen Potts Hypothyroidism Maternal Grandfather Kwan Welchy Thyroid disease Maternal Grandfather Kwan Swiney Breast cancer Paternal Grandmother Gilda Fleixp Lung cancer Paternal Grandmother Gilda Felixp Colon [...] or undercooked meat, and stay away from [facility]. Patient has also been advised to not change litter boxes and eat 6 small meals a day. Patient has been consulted regarding the do's and don'ts of . Patient was given labs and all questions and concerns were answered. Patient was given Reseda labs to be completed with Hgb A1C. Follow Up: Patient is to return in 4 weeks for routine OB appointment. Follow Up: Patient is to have labs drawn at directed and return to office for initial OB appointment with provider. Patient may call office as needed with any concerns or questions. Nurse Visit Completed by: Domenica Jacinto LPN documented in this encounter [facility] 07-11-2024 History of Presen t illness Narrative Name: Angelique Carlos Date/Time of Service:07/11/2024 10:03 AM :1995 Age: 28 y.o. Chief Complaint Chief Complaint Patient presents with Initial Visit Nurse Visit Angelique Carlos is a 28 y.o. at 9w0d [...] Relation Name Age of Onset Hypothyroidism Mother Emser Walp Polycystic ovary syndrome Mother Esmer Walp Thyroid disease Mother Esmer Walp Polycystic ovary syndrome Sister Breast cancer Maternal Grandmother Maricarmen Swiney Hypothyroidism Maternal Grandfather Kwan Swiney Thyroid disease Maternal Grandfather Kwan Swiney Breast cancer Paternal Grandmother Madelon Walp Lung cancer Paternal Grandmother Gilda Sanches [...] 07/11/2024 10:03 AM documented in this encounter [facility] 05-16-2024 History of Presen t illness Narrative Images from the original note were not included. Attila Bundy MD Obstetrics and Gynecology Patient: Angelique Carlos : 1995 (28 y.o.) Exam Date: 05/16/2024 Reason for Visit - Chief Complaint Patient presents with Follow-up Follow up for Amenorrhea, missed menses, and family planning. Stopped [employer] in 10/2023. CASTINGS TRIMMER 04/03 LMP 05/09 Ovulatory 04/30 Patient did [...] Behavior: Behavior normal. Exam conducted with a traveling electrician present. Assessment/Plan ICD-10-CM 1. Amenorrhea N91.2 2. [...] in the process. documented in this encounter [facility] 05-16-2024 Instructions Attila Bundy MD - [...] routine infertility test. documented in this encounter [facility] 02-08-2024 History of Presen t illness Narrative Images from the original note were not included. Attila Bundy MD Obstetrics and Gynecology Patient: Angelique Carlos : 1995 (28 y.o.) Yearly Wellness [...] of vaginal ring hormonal contraceptive device Z30.44 Angelique was seen today for gynecologic exam. Diagnoses and all orders for this visit: Screening for malignant neoplasm of cervix Encounter for gynecological examination without abnormal finding Encounter for surveillance of vaginal ring hormonal contraceptive device Pap and exam performed. Results can be found in MyChart in 7 days Return 1 year documented in this encounter [facility] 05-12-2023 Evaluation note Encounter Date Diagnosis [...] and trigger point injections can be done. [facility] Other 10-18-2023 Evaluation note* Encounter Date Diagnosis Assessment Notes Treatment Notes Treatment Clinical Notes Feb, Encounter to establish care (ICD-10 - Z76.89) Patient appears to be in good health upon examination. She is here to establish care for annual physcial for her employment. 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 Feb, Wellness examination (ICD-10 - Z00.00) [...] Stress test ordered to rule out abnormalities. [facility] Other Evaluation noteNo assessment information available [facility] Work Phone: Evaluation note* Diagnosis Amenorrhea- Primary Absence of menstruation Screening for malignant neoplasm of cervix Screening for malignant neoplasm of the cervix Encounter for gynecological examination without abnormal finding Encounter for surveillance of vaginal ring hormonal contraceptive device Missed menses [facility] Diagnosis Hormone imbalance- Primary Amenorrhea [...] for diabetes mellitus [facility] Diagnosis 26 weeks gestation of ([facility]) Second trimester ([facility]) state, incidental Elevated glucose tolerance test Impaired glucose tolerance test [facility] N[facility]ative - Reported* Type Description Date Medical History Left elbow dislocation 2011 [facility] Other Summary Purpose Family History No Family History Records FoundNo Family History Records FoundNo Family History Records FoundNo Family History Records FoundNo Family History Records Found Advance Directives No Advanced Directives Records FoundNo Advanced Directives Records FoundNo Advanced Directives Records FoundNo Advanced Directives Records FoundNo Advanced Directives Records Found Additional Source Comments INFORMATION SOURCE (unrecogn ized section and content) DATE CREATED AUTHOR 07/30/2021 Alex schneider DATE CREATED AUTHOR AUTHOR'S ORGANIZ ATION 05/24/2023 [facility] DATE CREATED AUTHOR AUTHOR'S ORGANIZ ATION 02/20/2024 [facility] DATE CREATED AUTHOR AUTHOR'S ORGANIZ ATION 04/23/2024 [facility] DATE CREATED AUTHOR AUTHOR'S ORGANIZ ATION 11/26/2024 [facility] EPIC REASON FOR VISIT (unrecogniz ed section and content) Reason Comments Gynecologic Exam Reason Comments Follow-up Reason Comments Initial Visit Nurse Visit Reason Comments Amenorrhea Reason Comments Routine Visit Care Teams (unrecognized sec tion and content) Team Status: Inactive Member Role Status Dates Lisandro Buitrago DO Attending Provider Active Base Wad Operator Adjuster Relationship Specialty Start Date End Date Unallocated, Jordy Horn MD [facility] [address] [facility] [place] [address] PCP - General Family Medicine 06/23/23 Base Wad Operator Adjuster Relationship Specialty Start Date End Date Unallocated, Jordy Horn MD [facility] [place] [address] PCP - General Family Medicine 06/23/23 Base Wad Operator Adjuster Relationship Specialty Start Date End Date Unallocated, Jordy Horn MD [facility] [place] [address] PCP - General Family Medicine 06/23/23 Base Wad Operator Adjuster Relationship Specialty Start Date End Date Unallocated, Jordy Horn MD [facility] [place] [address] PCP - General Family Medicine 06/23/23 Base Wad Operator Adjuster Relationship Specialty Start Date End Date Unallocated, Jordy Horn MD [address] [place] [address] PCP - General Family Medicine 06/23/23 Base Wad Operator Adjuster Relationship Specialty Start Date End Date Unallocated, Jordy Horn MD [facility] [place] [address] PCP - General Family Medicine 06/23/23 Base Wad Operator Adjuster Relationship Specialty Start Date End Date Unallocated, Jordy Horn MD [facility] [place] [address] PCP - General Family Medicine 06/23/23 Base Wad Operator Adjuster Relationship Specialty Start Date End Date Unallocated, [facility] [place] [address] PCP - General Family Medicine 06/23/23 Base Wad Operator Adjuster Relationship Specialty Start Date End Date Unallocated, Jordy Horn MD [address] [facility] [place] [address] PCP - General Family Medicine 06/23/23 Goals [...] BE BASED ON THE PRIMARY CLINICAL RECORDS. [employer] provides no warranty or guarantee of the accuracy or completeness of information in this document.
[2024-11-28 08:40] LABS: Glucose 1 Hour 149 mg/dL (<180)
[2024-11-28 09:39] LABS: Glucose 2 Hour 118 mg/dL (<155)
[2024-11-28 10:14] LABS: Glucose 3 Hour 81 mg/dL (<140)
== END 2024-11-28 06:36 | disposition home or self-care (01) ==
LOC: LAB 06:35
PROVIDERS: PCP Family Medicine; Visit Provider Physician Assistant
DX: R73.09 Other abnormal glucose (principal)
CPT/HCPCS: 36415; 82951; 82952

== ENCOUNTER 2025-01-04 06:58 | Outpatient (OUT) | payer OTHER, SELFPAY ==
--- OUTSIDE RECORDS SUMMARY | 2025-01-02 08:30 | XMS_ITS | Encounter Summary ---
Author Organization [facility] Address [address] [place] [address] Care Team Providers Care Manager Instrumentation Name Role Phone Unallocated, Noms Provider [facility] Reason for Visit * Reason Comments Routine Visit Encounter Details Date Type Department Care Team (Late st Contact Info) Description 01/02/2025 8:30 AM EDT Routine [facility] [address] [place] [phone] José Lozano DO [address] [place] [address] Third trimester ([facility]); 32 weeks gestation of ([facility]); ZULMA (amniotic fluid index) borderline low Social [...] nursing note reviewed. Exam conducted with a jig fitter present. Vitals: Estimated body mass index is 28.96 kg/m?? as calculated from the following: Height as of 08/10/24: 5' 3 . Weight as of this encounter: 163 lb 8 oz. BP: 120/76 Patient's last menstrual period was 05/09/2024 (exact date). ASSESSMENT & PLAN ICD-10-CM 1. Third trimester ([facility]) Z34.93 POCT urinalysis dipstick manually resulted 2. 32 weeks gestation of ([facility]) Z3A.32 Return OB: Patient presents today for [...] Care Team (Late st Contact Info) Description 01/16/2025 8:50 AM EDT Routine [facility] [address] [place] [address] Nadine Gurrola PA [address] [place] [address] Scheduled Orders Name Type Priority Associated Diagnoses [...] Routine 01/02/2025 8:29 AM EDT Third trimester ([facility]) documented in this encounter Results * (ABNORMAL) [...] this encounter Visit Diagnoses Diagnosis Third trimester ([facility]) state, incidental 32 weeks gestation of ([facility]) ZULMA (amniotic fluid index) borderline low Nonspecific abnormal finding in amniotic fluid documented in this encounter Additional Health Concerns Active Problems Noted Date Diagnosed Date OB Reminders 07/11/2024 documented as of this encounter Care Teams Manager Instrumentation Relationship Specialty Start Date End Date Unallocated, Noms Provider, [address] [place] [address] PCP - General Family Medicine 06/23/23 documented as of this encounter
--- OUTSIDE RECORDS SUMMARY | 2025-01-04 07:00 | XMS_ITS | Encounter Summary ---
Author Organization [facility] Address [address] [place] [address] Care Team Providers Care Pbx Supervisor Name Role Phone Unallocated, Noms Provider Primary Care [facility] Encounter Details Date Type Department Care Team (Late st Contact Info) Description 11/22/2024 Results Follow-Up TORREY MILL[facility] [address] [address] Dea Olivares LPN [address] [place] [address] ALL CBC WITH AUTO DIFF, GLUCOSE 1 HOUR Social History Tobacco Use Types Packs/Day Years [...] Info) Description 01/16/2025 8:50 AM EDT Routine T[facility] [place] [facility] [address] [place] [phone] Nadine Gurrola PA [address] [facility] [address] [place] [address] documented as of this encounter Goals Goal Patient Goal Type Associated Problems Recent Progress Patient-Stated? Author Reminders Care Plan OB Reminders Jennifer Bond RN documented as of this encounter Visit Diagnoses Not on filedocumented in this encounter Additional Health Concerns Active Problems Noted Date Diagnosed Date OB Reminders 07/11/2024 documented as of this encounter Care Teams Pbx Supervisor Relationship Specialty Start Date End Date Unallocated, Torrey Horn MD [address] [place] [address] PCP - General Family Medicine 06/23/23 documented as of this encounter
--- OUTSIDE RECORDS SUMMARY | 2025-01-04 07:01 | XMS_ITS | Encounter Summary ---
Author Organization [facility] Address [address] [place] [address] Care Team Providers Care Incident Response Analyst Name Role Phone Unallocated, Noms Provider [facility] Encounter Details Date Type Department Care Team (Late st Contact Info) Description 01/02/2025 Bamboo flowsheet [facility] [place] [facility] [address] [place] [address] José Lozano DO [address] [place], [facility] Social History Tobacco Use Types Packs/Day Years [...] Info) Description 01/16/2025 8:50 AM EDT Routine NOMRitchie [facility] [address] [place] [address] Nadine Gurrola PA [address] [facility] [address] [place] [address] documented as of this encounter Goals Goal Patient Goal Type Associated Problems Recent Progress Patient-Stated? Author Reminders Care Plan OB Reminders Jennifer Bond RN documented as of this encounter Visit Diagnoses Not on filedocumented in this encounter Additional Health Concerns Active Problems Noted Date Diagnosed Date OB Reminders 07/11/2024 documented as of this encounter Care Teams Incident Response Analyst Relationship Specialty Start Date End Date Unallocated, Noms MD Justina [address] [place] [address] PCP - General Family Medicine 06/23/23 documented as of this encounter
--- OUTSIDE RECORDS SUMMARY | 2025-01-04 07:01 | XMS_ITS | Clinical Summary ---
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 Name Role Phone Unallocated, Noms Provider Primary Care [facility] ulysses Allergies No known active allergies Medications Vit-Fe Fumarate-FA ( PO) Take by mouth Active Encounters Date Type Department Care Team Description 01/02/2025 8:30 AM EDT Routine [facility] [address] [place] [address] José Lozano DO Third trimester ([facility]); 32 weeks gestation of ([facility]); ZULMA (amniotic fluid index) borderline low 01/02/2025 Bamboo flowsheet [facility] [address] [facility] [address] José Lozano DO 01/02/2025 Travel 12/19/2024 8:50 AM EDT Routine [facility] [address] [facility] [address] Nadine Gurrola PA 30 weeks gestation of ([facility]); Third trimester ([facility]); HSV infection 12/19/2024 8:00 AM EDT Ancillary Procedure [facility] [address] [place] [address] size inconsistent with dates ([facility]) 12/19/2024 Telephone [facility] [place] [phone] Dea Olivares LPN 12/05/2024 9:00 AM EDT Routine [facility] [place] [phone] José Lozano, Third trimester ([facility]); 28 weeks gestation of ([facility]); HSV infection; size inconsistent with dates ([facility]) 12/05/2024 Bamboo flowsheet [facility] [place] [address] José Lozano DO 12/04/2024 Travel 11/28/2024 Clinisync Result Encounter NOMS External Department Unsolicited Nadine Gurrola PA 11/22/2024 8:50 [place] [phone] Nadine Gurrola PA 26 weeks gestation of ([facility]); Second trimester ([facility]); Elevated glucose tolerance test 11/22/2024 Results Follow-Up [facility] [place] [phone] Dea Olivares, ALEKSANDR ALL CBC WITH AUTO DIFF, GLUCOSE 1 HOUR 11/22/2024 Clinisync Result Encounter NOMS External Department Unsolicited José Lozano DO 11/17/2024 Travel 10/26/2024 11:50 [place] [address] José Lozano, Second trimester ([facility]); 22 weeks gestation of ([facility]); Diabetes mellitus screening 10/26/2024 11:00 AM EDT [place] [address] from Last 3 Months Family History Medical History Relation Name Comments Hypothyroidism Maternal Grandfather Kwan Swiney Thyroid disease Maternal Grandfather Kwan Swiney Breast cancer Maternal Grandmother Maricarmen Swiney Hypothyroidism Mother Esmer Walp Polycystic ovary syndrome Mother Esmer Walp Thyroid disease Mother Esmer Walp Cancer Paternal Grandfather Skyler Walp Colon cancer Paternal Grandfather Skyler Walp Breast cancer Paternal Grandmother Gilda Walp Lung cancer Paternal Grandmother Gilda Walp Polycystic ovary syndrome Sister Relation Name Status Comments Father Alive Maternal Grandfather Kwan Swiney Maternal Grandmother Maricarmen Swiney Mother Esmer Felixp Alive Paternal Grandfather Skyler Felixp Paternal Grandmother Gilda Walp Sister Social History Tobacco Use Types [...] Pressure 120/76 01/02/2025 8:26 AM EDT Pulse 77 06/23/2023 9:25 AM EST Temperature 36.4 C (97.5 F) 06/23/2023 9:25 AM EST Respiratory Rate 18 05/15/2023 11:28 AM EST Oxygen Saturation 99% 06/23/2023 9:25 AM EST Inhaled Oxygen Concentration - - Weight 74.2 kg (163 lb 8 oz) 01/02/2025 8:26 AM EDT Height 160 cm (5' 3 ) 08/10/2024 2:55 PM EDT Body Mass Index 28.96 08/10/2024 2:55 PM EDT Plan of Treatment Upcoming Encounters Date Type Department Care Team (Late st Contact Info) Description 01/16/2025 8:50 AM EDT Routine [facility] [address] [facility] [address] [place] [address] Nadine Gurrola PA [address] [place] [address] Health Maintenance Due Date Last Done Comments Influenza Vaccine (#1) 2025 Goals Goal Patient Goal Type Associated Problems Recent Progress Patient-Stated? Author Reminders Care Plan OB Reminders No Jennifer Ayala RN Procedures Procedure Name Priority Date/Time Associated Diagnosis Comments POCT URINALYSIS DIPSTICK Routine 01/02/2025 8:29 AM EDT Third trimester ([facility]) POCT URINALYSIS DIPSTICK Routine 12/19/2024 9:06 AM EDT 30 weeks gestation of ([facility]) Third trimester ([facility]) OB FOLLOW UP TRANSABDOMINAL APPROACH Routine 12/19/2024 8:25 AM EDT size inconsistent with dates ([facility]) GLUCOSE TOLERANCE 3 HOUR Routine 11/28/2024 6:41 AM EDT POCT URINALYSIS DIPSTICK Routine 11/22/2024 8:57 AM EDT 26 weeks gestation of ([facility]) Second trimester ([facility]) GLUCOSE 1 HOUR Routine 11/22/2024 7:47 AM EDT ALL CBC WITH AUTO DIFF Routine 7:47 AM EDT POCT URINALYSIS DIPSTICK Routine 10/26/2024 12:06 PM EDT Second trimester ([facility]) US OB 14+ WEEKS ANATOMY SCAN Routine 10/26/2024 11:56 AM EDT Screening, , for anatomic survey ([facility]) from Last 3 Months Results * (ABNORMAL) POCT urinalysis dipstick manually resulted (01/02/2025 8:29 AM EDT) Only the most recent of4 [...] - Positive Urine 01/02/2025 8:29 AM EDT us José Blake DO POINT OF CARE TEST ENTER/EDIT OR DERABLES Final Result * US OB follow up transabdominal approach (12/19/2024 8:25 AM EDT) Anatomical Region Laterality Modality Body Ultrasound 12/19/2024 11:4 3 AM EDT Impressions 12/19/2024 1:52 PM EDT 1. Single, live intrauterine , current sonographic age of 29 weeks and 5 days, with an estimated date of delivery of March 01, 2025. 2. On the prior examination of October 26, 2024 estimated delivery was March 04, 2025 and weight by percentile was 24% * Estimated Weight (g) by Percentile is based upon an accurate estimated age based on last menstrual period. TRANSCRIBED BY: ELECTRONICALLY SIGNED BY: Terry Rodriguez MD Narrative 12/19/2024 1:52 PM EDT FINDINGS: Comparison made with prior examination of October 26, 2024. A single, live intrauterine is present with normal cardiac rate of 150 beats per minute. Normal activity and amniotic fluid volume. Amniotic fluid index is 10.0 cm. (largest fluid pocket 3.0 cm) Morphology is grossly normal. The cervix not measured. The current sonographic age is 29 weeks and 5 days, based on the following measurements: BPD 7.3 cm ( 29 weeks, 1 days) Head Circumference 17.3cm (29 weeks,6 days) Abdominal Circumference 26.1cm ( 30 weeks, 0 days) Femur Length 5.6cm (29 weeks, 3 days) Presentation Cephalic Weight (g) by Percentile 27.4% * These measurements result in an estimated date of delivery of March 01, 2025. The current estimated weight is 1465 grams +/- ( 3 pound, 4 ounces). Procedure Note Terry Rodriguez MD - 12/19/2024 FINDINGS: Comparison made with prior examination of October 26, 2024. A single, liveintrauterine is present with normal cardiac rate of 150beats per minute. Normal activity and amniotic fluid volume.Amniotic fluid index is 10.0 cm. (largest fluid pocket 3.0 cm) Morphologyis grossly normal. The cervix not measured. The current sonographic ageis 29 weeks and 5 days, based on the following measurements: BPD 7.3 cm ( 29 weeks, 1 days) Head Circumference 17.3cm (29 weeks,6 days) Abdominal Circumference 26.1cm ( 30 weeks, 0 days) Femur Length 5.6cm (29 weeks, 3 days) Presentation Cephalic Weight (g) by Percentile 27.4% * These measurements result in an estimated date of delivery of February. The current estimated weight is 1465 grams +/- ( 3 pound,4 ounces). IMPRESSION: 1. Single, live intrauterine , current sonographic age of 29weeks and 5 days, with an estimated date of delivery of March 01, 2025. 2. On the prior examination of October 26, 2024 estimated delivery wasOct2024 and weight by percentile was 24% * Estimated Weight (g) by Percentile is based upon an accurateestimated age based on last menstrual period. TRANSCRIBED BY: ELECTRONICALLY SIGNED BY: Terry Rodriguez MD José Lozano DO IMG OB US PROCEDURES Final Resul t * GLUCOSE TOLERANCE 3 HOUR (11/28/2024 6:41 AM EDT) GLUCOSE TOLERANCE 3 HOUR mg/dL [facility] Comment: GLU FAST 93 (<95) Col: 11/28/24 0641 GLU 1HR 149 (<180) Col: 11/28/24 0743 GLU 2HR 118 (<155) Col: 11/28/24 0843 GLU 3HR 81 (<140) Col: 11/28/24 0942 11/28/2024 6:41 AM EDT 11/28/2024 6:49 AM EDT Narrative [facility] - 11/28/2024 10:14 AM EDT Nadine DE JESUS LAB BLOOD ORDERABLES Final Resul t Performing Organization Address City/[facility]/ZIP Co de Phone Number [facility] TB * (ABNORMAL) GLUCOSE 1 HOUR (11/22/2024 7:47 AM EDT) GLUCOSE 1 HOUR 149(H) <130 mg/dL TB 11/22/2024 7:47 AM EDT 11/22/2024 7:50 AM EDT Narrative [facility] - 11/22/2024 8:41 AM EDT José Lozano DO LAB BLOOD ORDERABLES Final Resul t [facility] TB * (ABNORMAL) ALL CBC WITH AUTO DIFF [...] - 11/22/2024 8:25 AM EDT us José Lozano DO [facility] Final Result [facility] TB * [...] II, MD, PHD at 27-Oct-2024 06:14:52 AM [facility] Procedure Note Leonidas Nicole MD - [...] LEONIDAS NICOLE II, MD, PHD 06:14:52 AM [facility] us Nadine DUKE OB US PROCEDURES Final Resul t from Last 3 Months Additional Health Concerns Active Problems Noted Date Diagnosed Date OB Reminders 07/11/2024 Insurance [employer] Care Teams 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
--- OUTSIDE RECORDS SUMMARY | 2025-01-04 07:01 | XMS_ITS | CCD ---
Author Organization [facility] Care Team Providers Care Diabetes Territory Manager Name Role Phone DR JANES GARCIA Admitting Unavailable JOSE, DR JANES Escobar Attending Unavailable REQUEST, NONE LISTED Primary Care Unavaila verna GARCIA, DR JANES Escobar Consulting Unavailable Lisandro Buitrago Unavailable DO Lisandro Buitrago Attending Provider Tyrell Stiles Unavailable Lisandro Buitrago Attending Unavailable Lisandro Buitrago Admitting Unavailable Unallocated MD, Noms Provider Primary Care Provi ulysses Zita Alanis Primary Care Unavailable Zita Alanis Attending Unavailable Zeke, Zita Attending Unavailable Zita Alanis Primary Care Unavailable Zita Alanis Attending Unavailable Zita Alanis Primary Care Unavailable ROCIO LOZANO Attending Unavailable MANDY, NADINE Attending Unavailable ATTILA BUNDY Attending Unavailable ATTILA BUNDY Attending Unavailable ROCIO LOZANO Attending Unavailable NADINE GALVAN Attending Unavailable ROCIO LOZANO Attending Unavailable ROCIO LOZANO Referring Unavailable NADINE GALVAN Attending Unavailable ROCIO LOZANO Attending Unavailable Medications Current Medications Medication Drug Class(es) Dates Sig (Normalized) Sig (Original) naproxen 500 mg oral tablet (1 source) Nonsteroidal Anti-inflammatory Drug Start: 05-12-2023 take 1 tablet by mouth every twelve hours at mealtime as needed Naproxen 500 MG 1 tablet with food or milk as needed Orally every 12 hrs for 20 days May, Active Vit-Fe Fumarate-FA ( PO) (20 sources) Vit-Fe Fumarate-FA ( PO) Take by mouth Active Completed/Discontinued Medications Medication Drug Class(es) Dates Sig (Normalized) Sig (Original) azithromycin 250 mg oral tablet (3 sources) Macrolide Antimicrobial Start: 08-21-2024 End: 08-29-2024 azithromycin (Zithromax Z-Triston) 250 MG tablet Indications: Sore throat As directed 6 tablet 08/21/2024 08/29/2024 Discontinued 21 day ethinyl estradiol 0.812416 mg/hr / etonogestrel 0.005 mg/hr vaginal system (6 sources) Progestin, Estrogen Start: 05-13-2023 End: 05-16-2024 EluRyng 0.12-0.015 MG/24HR vaginal ring INSERT 1 RING VAGINALLY, LEAVE IN FOR 21 DAYS THEN REMOVE FOR 1 WEEK. REPEAT MONTHLY 05/13/2023 05/16/2024 Discontinued (Therapy completed) NuvaRing _insert 1 PV q month Nay Cartagena CNP Active Problems Problem Classification Problem Date Documented [...] heart disease (1 source) Cardiomegaly Chronic Other complications of (2 sources) size does not accord with dates; Translations: [Uterine size-date discrepancy, unspecified trimester] 12-05-2024 Episodic Other complications of (2 sources) Abnormal amniotic fluid; Translations: [Other abnormal findings on screening of mother] 01-02-2025 Episodic Other endocrine disorders (2 sources) Disorder of endocrine system; Translations: [Endocrine disorder, unspecified] 05-16-2024 Episodic Other non-traumatic joint disorders (2 sources) Pain in left shoulder; Translations: [Acute pain of left shoulder] Episodic Other and delivery including normal (16 sources) Normal ; Translations: [Encounter for supervision [...] [26 weeks gestation of ] 11-22-2024 Episodic Residual codes; unclassified (2 sources) Gestation period, 28 weeks; Translations: [28 weeks gestation of ] 12-05-2024 Episodic Residual codes; unclassified (2 sources) Gestation period, 30 weeks; Translations: [30 weeks gestation of ] 12-19-2024 Episodic Residual codes; unclassified (2 sources) Gestation period, 32 weeks; Translations: [32 weeks gestation of ] 01-02-2025 Episodic Sprains and strains (1 source) Strain of muscle, fascia and tendon of lower back, initial encounter Episodic Unclassified (1 source) Pain in left shoulder; Translations: [Pain in left shoulder] Onset: 3 Unclassified (20 sources) OB Reminders Onset: 5 07-11-2024 Viral infection (4 sources) Herpes simplex; 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, unspecified] 12-05-2024 Episodic Results Test Name Value Interpretation Reference Range Facility Urinalysis macro (dipstick) panel (U)on 01-02-2025 Bilirubin, UA Negative Negative - 4(70) +++ mg/dL [facility] Blood, UA Negative Negative - 50 Mark/mcL [facility] Clarity, UA Clear [facility] Color, UA Yellow [facility] Glucose, UA Negative Negative - 1999(110) ++++ mg/dL [facility] Interpretation and review of laboratory results Abnormal [facility] Ketones, UA Negative Negative - 160(16) ++++ mg/dL [facility] Leukocytes, UA Positive Negative - 500+++ Mahsa/mcL [facility] Comment on above: Trace Nitrite, UA Negative Negative - Positive [facility] pH, UA 6.5 5 - 9 [facility] Protein, UA Negative Negative - 2000(20) ++++ mg/dL [facility] Spec Grav, UA 1.015 1 - 1.03 [facility] Urobilinogen, UA 0.2 0.2 - 12 mg/dL [facility] US OB FOLLOW UP TRANSABDOMIN AL APPROACHon 12-19-2024 US OB FOLLOW UP TRANSABDOMINAL APPROACH FINDINGS: Comparison made with prior examination of [...] grams +/- ( 3 pound, 4 ounces). IMPRESSION: 1. Single, live intrauterine , [...] BY: ELECTRONICALLY SIGNED BY: Terry Rodriguez MD Normal Not Available Comment on above: Order Comment: US OB SCAN FOR GROWTH Estimated Date of Delivery: 02/26/25 Gestational Age as of 12/05/2024: 28w1d Urinalysis macro (dipstick) panel (U)Ordered By: Teresa Ambriz on 12-19-2024 Bilirubin, UA Negative Negative - 4(70) +++ mg/dL [facility] Blood, UA Negative Negative - 50 Mark/mcL [facility] Clarity, UA Clear [facility] Color, UA Yellow [facility] Glucose, UA Negative Negative - 2000(110) ++++ mg/dL [facility] Interpretation and review of laboratory results Abnormal [facility] Ketones, UA Negative Negative - 160(16) ++++ mg/dL [facility] Leukocytes, UA 3+ Negative - 500+++ Mahsa/mcL [facility] pH, UA 6 5 - 9 [facility] Protein, UA Negative Negative - 2000(20) ++++ mg/dL [facility] Spec Grav, UA 1.015 1 - 1.03 [facility] Urobilinogen, UA 0.2 0.2 - 12 mg/dL [facility] GLUCOSE TOLERANCE 3 HOURon 0 11-28-2024 GLUCOSE TOLERANCE 3 HOUR mg/dL [facility] Comment on above: GLU FAST 93 (<95) Co l: 11/28/24 0641 GLU 1HR 149 (<180) Col: 11/28/24 0743 GLU 2HR 118 (<155) Col: 11/28/24 0843 GLU 3HR 81 (<140) Col: 11/28/24 0942 [facility] ALL CBC WITH AUTO DIFFon BASOPHILS ABSOLUTE AUTO 0 [facility] Basophils/100 WBC (Bld) 0.4 % 0.2 - 2.0 % [facility] Eosinophils/100 WBC (Bld) 1.2 % 0.9 - 7.0 % [facility] Erythrocyte distribution width (RBC) [Ratio] 13 % 11.0 - 15.0 % [facility] Hematocrit (Bld) [Volume fraction] 35.6 % Low 36.0 - 48.0 % [facility] Hemoglobin (Bld) [Mass/Vol] 11.9 g/dL Low 12.0 - 16.0 g/dL [facility] IMMATURE GRANULOCYTES ABS AUTO 0.13 High [facility] Immature granulocytes/100 WBC (Bld) 1.2 % High 0.0 - 0.5 % [facility] Interpretation and review of laboratory results Abnormal [facility] LYMPHOCYTES ABSOLUTE AUTO 1.3 [facility] Lymphocytes/100 WBC (Bld) 11.6 % Low 20.5 - 60.0 % [facility] MCH (RBC) [Entitic mass] 30.9 pg 26.7 - 34.0 pg [facility] MCHC (RBC) [Mass/Vol] 33.4 g/dL 29.9 - 35.2 g/dL [facility] MCV (RBC) [Entitic vol] 92.5 fL 81.0 - 99.0 fL [facility] MONOCYTES ABSOLUTE AUTO 0.5 [facility] Monocytes/100 WBC (Bld) 4.9 % 1.7 - 12.0 % [facility] NEUTROPHILS ABSOLUTE AUTO 8.8 High [facility] Neutrophils/100 WBC (Bld) 80.7 % High 43.0 - 75.0 % [facility] Platelet mean volume (Bld) [Entitic vol] 10.5 fL 9.5 - 13.5 fL [facility] TBH EO # 0.1 [facility] PLT 198 [facility] RBC 3.85 Low [facility] WBC 10.9 [facility] Urinalysis macro (dipstick) panel (U)on 11-22-2024 Bilirubin, UA Negative Negative - 4(70) +++ mg/dL [facility] Blood, UA Negative Negative - 50 Mark/mcL [facility] Clarity, UA Clear [facility] Color, UA Yellow [facility] Glucose, UA Negative Negative - 1999(110) ++++ mg/dL [facility] Interpretation and review of laboratory results Abnormal [facility] Ketones, UA Negative Negative - 160(16) ++++ mg/dL [facility] Leukocytes, UA Moderate Negative - 500+++ Mahsa/mcL [facility] Nitrite, UA Negative Negative - Positive [facility] pH, UA 6 5 - 9 [facility] Protein, UA Negative Negative - 1999(20) ++++ mg/dL [facility] Spec Grav, UA 1.01 1 - 1.03 [facility] Urobilinogen, UA 0.2 0.2 - 12 mg/dL [facility] Urinalysis macro (dipstick) panel (U)on 10-26-2024 Bilirubin, UA Negative Negative - 4(70) +++ mg/dL [facility] Blood, UA Negative Negative - 50 Mark/mcL [facility] Clarity, UA Clear [facility] Color, UA Yellow [facility] Glucose, UA Negative Negative - 2000(110) ++++ mg/dL [facility] Interpretation and review of laboratory results Normal [facility] Ketones, UA Negative Negative - 160(16) ++++ mg/dL [facility] Leukocytes, UA Negative Negative - 500+++ Mahsa/mcL [facility] Nitrite, UA Negative Negative - Positive [facility] pH, UA 6.5 5 - 9 [facility] Protein, UA Negative Negative - 2000(20) ++++ mg/dL [facility] Spec Grav, UA 1.02 1 - 1.03 [facility] Urobilinogen, UA 0.2 0.2 - 12 mg/dL [facility] US OB 14+ WEEKS ANATOMY SCAN [...] II, MD, PHD at 27-Oct-2024 06:14:[address] [facility] Normal Not Available Comment on above: Order Comment: US OB ANATOMY SINGLE W US OB CERVICAL LENGTH Estimated Date of Delivery: 02/26/25 Gestational Age as of 09/28/2024: 18w3d BOX TESTon 08-29-2024 BOX TEST SENT OUT [facility] [address]OX[address] [facility] B[address]2 08-29-24 [facility] BOX [facility] Urinalysis macro (dipstick) panel (U)on 08-29-2024 Bilirubin, UA Negative Negative - 4(70) +++ mg/dL [facility] Blood, UA Negative Negative - 50 Mark/mcL [facility] Clarity, UA Clear [facility] Color, UA Yellow [facility] Glucose, UA Negative Negative - 1999(110) ++++ mg/dL [facility] Interpretation and review of laboratory results Normal [facility] Ketones, UA Negative Negative - 160(16) ++++ mg/dL [facility] Leukocytes, UA Negative Negative - 500+++ Mahsa/mcL [facility] Nitrite, UA Negative Negative - Positive [facility] pH, UA 6 5 - 9 [facility] Protein, UA Negative Negative - 2000(20) ++++ mg/dL [facility] Spec Grav, UA 1.02 1 - 1.03 [facility] Urobilinogen, UA 0.2 0.2 - 12 mg/dL [facility] HCG ( test) Ql (U)o n 08-10-2024 Interpretation and review of laboratory results Abnormal [facility] Preg Test, Ur Positive Negative [facility] US OB < 14 WEEKS EARLYon [...] II, MD, PHD at 11-Aug-2024 08:40:[address] [facility] Normal Not Available Comment on above: Order Comment: US OB Patient's last menstrual period was 05/09/2024 (exact date). Urinalysis macro (dipstick) panel (U)on 08-10-2024 Bilirubin, UA Negative Negative - 4(70) +++ mg/dL [facility] Blood, UA Negative Negative - 50 Mark/mcL [facility] Clarity, UA Clear [facility] Color, UA Yellow [facility] Glucose, UA Negative Negative - 2000(110) ++++ mg/dL [facility] Interpretation and review of laboratory results Abnormal [facility] Ketones, UA Positive Negative - 160(16) ++++ mg/dL [facility] Comment on above: 40 Leukocytes, UA Negative Negative - 500+++ Mahsa/mcL [facility] Nitrite, UA Negative Negative - Positive [facility] pH, UA 5.5 5 - 9 [facility] Protein, UA Negative Negative - 2000(20) ++++ mg/dL [facility] Spec Grav, UA 1.02 1 - 1.03 [facility] Urobilinogen, UA 0.2 0.2 - 12 mg/dL [facility] Outside Recordson 04-20-2024 Outside Records [id number] 763#1.00[facility] Outside Recordson 03-31-2024 Outside Records [id number] 6#1.00[facility] Consent Formson 02-18-2024 Consent Forms [id number] 3D#1.00[facility] Cytology Cervical or vaginal smear or scraping studyon 02-08-2024 [facility] HCG ( test) Ql (U)o n 02-08-2024 Interpretation and review of laboratory results Normal [facility] Preg Test, Ur Negative [facility] CMP Standardon 02-03-2024 eGFR Non AA >[address] [facility] Comment on above: Performed By: #### 1 [id number], [id number], 6187307, 4905595, 2015413, 9203326, 7668370 #### [facility] (DEFAULT) [address] [place] [address] 69530 eGFR AA >[address] [facility] Comment on above: Performed By: #### 1 [id number], [id number], 5580180, 0011797, 3400330, 7066988, 0986970 #### [facility] (DEFAULT) [address] [place] [address] 07424 Albumin [Mass/Vol] 4.4 g/dL Normal 3.5-5.0 [facility] Comment on above: Performed By: #### 1 [id number], [id number], 1359073, 2271813, 3915669, 1570824, 4424989 #### [facility] (DEFAULT) [address] [place] [address] Albumin/Globulin [Mass ratio] 1.4 {ratio} Normal 1.4-2.6 [facility] Comment on above: Performed By: #### 1 [id number], 2172743007, 1260037, 9481819, 5278620, 2365312, 9367566 #### [facility] (DEFAULT) [address] [place] [address] Alk Phos 67 IU/L Normal 32-91 [facility] Comment on above: Performed By: #### 1 [id number], 4827157551, 3977956, 7471594, 8542142, 2884543, 5065971 #### [facility] (DEFAULT) [address] [place] [address] ALT [Catalytic activity/Vol] 19.0 U/L Normal 14.0-54.0 [facility] Comment on above: Performed By: #### 1 [id number], 5281580774, 2048917, 9219812, 3557708, 4155288, 4167622 #### [facility] (DEFAULT) [address] [place] [address] Anion gap [Moles/Vol] 10.8 mmol/L Normal 5.0-19.0 [facility] Comment on above: Performed By: #### 1 [id number], 7897806874, 8145804, 3867432, 7799065, 3630134, 9352859 #### [facility] (DEFAULT) [address] [place] [address] 83716 AST [Catalytic activity/Vol] 21 U/L Normal 15-41 [facility] Comment on above: Performed By: #### 1 [id number], 5286831894, 8763427, 2137538, 9623644, 7530250, 3865494 #### [facility] (DEFAULT) [address] [place] [address] Bili Total 0.7 mg/dL Normal 0.3-1.2 [facility] Comment on above: Performed By: #### 1 [id number], 3839210023, 1872853, 4320846, 1282322, 0305199, 3088551 #### [facility] (DEFAULT) [address] [place] [address] 41526 Calcium [Mass/Vol] 8.9 mg/dL Normal 8.9-10.3 [facility] Comment on above: Performed By: #### 1 [id number], 7525279090, 2479720, 5670380, 6063758, 9856785, 9998466 #### [facility] (DEFAULT) [address] [place] [address] 01960 Chloride [Moles/Vol] 100 mmol/L Low 101-111 [facility] Comment on above: Performed By: #### 1 [id number], 0705413499, 3282256, 1363717, 5941338, 4440433, 8591708 #### [facility] (DEFAULT) [address] [place] [address] 80410 CO2 [Moles/Vol] 26 mmol/L Normal 21-32 [facility] Comment on above: Performed By: #### 1 [id number], 4115714856, 5728715, 4875529, 7642541, 2537203, 8159791 #### [facility] (DEFAULT) [address] [place] [address] 36263 Creatinine [Mass/Vol] 0.86 mg/dL Normal 0.60-1.30 [facility] Comment on above: Performed By: #### 1 [id number], 1707969663, 8206135, 4467619, 5504509, 9988956, 0906283 #### [facility] (DEFAULT) [address] [place] [address] 63162 Globulin (S) [Mass/Vol] 3.1 g/dL Normal 1.5-4.3 [facility] Comment on above: Performed By: #### 1 [id number], 6593341834, 4054680, 6792862, 6744514, 2901256, 8814393 #### [facility] (DEFAULT) [address] [place] [address] 61761 Glucose [Mass/Vol] 90.0 mg/dL Normal 74.0-118.0 [facility] Comment on above: Performed By: #### 1 [id number], 4534639090, 8848997, 3831252, 8606172, 4100323, 2741569 #### [facility] (DEFAULT) [address] [place] [address] 83365 Osmolality 267 mOsm/L Invalid Interpretation Code [facility] Comment on above: Performed By: #### 1 [id number], 9644349048, 3342123, 6708481, 2251803, 0417961, 0602020 #### [facility] (DEFAULT) [address] [place] [address] 93666 Potassium [Moles/Vol] 3.8 mmol/L Normal 3.6-5.1 [facility] Comment on above: Performed By: #### 1 [id number], 9091481947, 2501969, 9386202, 6138117, 4502811, 0266578 #### [facility] (DEFAULT) [address] [place] [address] 80013 Protein [Mass/Vol] 7.5 g/dL Normal 6.5-8.1 [facility] Comment on above: Performed By: #### 1 [id number], 5056933847, 7699298, 0420196, 1856778, 9388057, 6695396 #### [facility] (DEFAULT) [address] [place] [address] 64328 Sodium [Moles/Vol] 133.0 mmol/L Low 136.0-144.0 [facility] Comment on above: Performed By: #### 1 [id number], 7176883764, 5158872, 3301129, 7218339, 9877349, 8558642 #### [facility] (DEFAULT) [address] [place] [address] 22423 Urea nitrogen [Mass/Vol] 17 mg/dL Normal 8-26 [facility] Comment on above: Performed By: #### 1 [id number], 3021035514, 3366610, 0287633, 4554296, 4859289, 7061123 #### [facility] (DEFAULT) [address] [place] [address] Urea nitrogen/Creatinine [Mass ratio] 19.7 mg/mg High 4.6-16.2 [facility] Comment on above: Performed By: #### 1 [id number], 8490763043, 8186268, 8160395, 7497772, 8741159, 6937314 #### [facility] (DEFAULT) [address] [place] [address] GGTon 02-03-2024 Gamma glutamyl transferase [Catalytic activity/Vol] 20.0 U/L Normal 7.0-50.0 [facility] Comment on above: Performed By: #### 1 [id number], 4829016320, 0115795, 8885322, 1583107, 7451156, 3222866 #### [facility] (DEFAULT) [address] [place] [address] Iron Levelon 02-03-2024 Iron [Mass/Vol] 93.0 ug/dL Normal 28.0-170.0 [facility] Comment on above: Performed By: #### 1 [id number], 6720208332, 8605324, 4216019, 7949678, 4815066, 2094384 #### [facility] (DEFAULT) [address] [place] [address] LDHon 02-03-2024 LDH 126.0 IU/L Normal 98.0-192.0 [facility] Comment on above: Performed By: #### 1 [id number], 7846868771, 7777224, 8341516, 2413473, 5649612, 4691634 #### [facility] (DEFAULT) [address] [place] [address] Lipid Panel Standardon 02-02 Cholesterol [Mass/Vol] 214.0 mg/dL High 66.0-200.0 [facility] Comment on above: Performed By: #### 1 [id number], 2421738337, 5142317, 8025152, 4759079, 6878875, 1684427 #### [facility] (DEFAULT) [address] [place] [address] 30998 Cholesterol in HDL [Mass/Vol] 64 mg/dL Normal 40-71 [facility] Comment on above: Performed By: #### 1 [id number], 1085267177, 5207632, 8659828, 5798640, 5669494, 0112215 #### [facility] (DEFAULT) [address] [place] [address] 17118 Cholesterol in LDL [Mass/Vol] 144 mg/dL High 1-100 [facility] Comment on above: Performed By: #### 1 [id number], 7324872924, 2214451, 3344176, 1632760, 9858223, 4226935 #### [facility] (DEFAULT) [address] [place] [address] 09463 Cholesterol.total/C holesterol in HDL [Mass ratio] 3.3 {ratio} Normal 0.0-4.5 [facility] Comment on above: Performed By: #### 1 [id number], 8839446013, 2682017, 2577880, 0863271, 6137856, 5700902 #### [facility] (DEFAULT) [address] [place] [address] 12660 Triglyceride [Mass/Vol] 28.0 mg/dL Normal 0.0-150.0 [facility] Comment on above: Performed By: #### 1 [id number], 7442854661, 7264598, 7419635, 7663557, 5764703, 5819505 #### [facility] (DEFAULT) [address] [place] [address] 36615 VLDL. 6 mg/dL Normal 5-40 [facility] Comment on above: Performed By: #### 1 [id number], 3706689932, 8382401, 4228697, 5242898, 6524740, 2914858 #### [facility] (DEFAULT) [address] [place] [address] 24995 Phoson 02-03-2024 Phosphate [Mass/Vol] 2.9 mg/dL Normal 2.5-4.6 [facility] Comment on above: Performed By: #### 1 [id number], 2422684833, 7231697, 3852119, 5018956, 8481445, 6437702 #### [facility] (DEFAULT) [address] [place] [address] Uric Acidon 02-03-2024 Urate [Mass/Vol] 4.0 mg/dL Normal 2.6-8.0 [facility] Comment on above: Performed By: #### 1 [id number], 7880412181, 6738440, 6406477, 1821530, 0871803, 9425427 #### [facility] (DEFAULT) [address] [place] [address] XR chest 2V*on 03-02-2023 XR chest 2V* [facility] [place] [address] [place] [address] XRay Report Signed Patient: Angelique Sanches MR#: [id number] : 1995 Acct:[id number] Age/Sex: 27 / F ADM Date: 03/02/23 Loc: XDS Room: Type: [facility] Attending Dr: Lisandro Buitrago DO Copies to: Lisandro Buitrago DO Ordering Provider: Lisandro Buitrago DO Date of Service: 03/02/23 XR/XR shoulder LT min 2V*: Left shoulder pain ([id number]) XR/XR chest 2V*: Left shoulder pain;Chest pain [...] Puentes Jr., D.O.03/02/2023 4:13 PM Dictation Location: [place] [address] Transcribed By: [facility] 03/02/231612 Dictated By: Terry Puentes Jr, DO 03/02/231611 Signed By: 03/02/231612 [facility] CBC W MANUAL DIFFon 03-21-20 22 ATYPICAL LYMPH # Normal [facility] Comment on above: Performed By: #### C BCMAN #### [facility] [address] [place] [address] Dr. Susannah Hopkins ATYPICAL LYMPH % Normal [facility] Comment on above: Performed By: #### C BCMAN #### [facility] [address] [place] [address] Dr. Susannah Hopkins BAND # 0.3 103/ul Normal 0.0-0.3 [facility] Comment on above: Performed By: #### C BCOCTAVIANO #### [facility] [address] [place] [address] Dr. Susannah Hopkins BAND % 2 % Normal 0-5 [facility] Comment on above: Performed By: #### C GARRET #### [facility] [address] [place] [address] Dr. Susannah Hopkins BASOM # 0.00 103/ul Normal 0.00-0.10 [facility] Comment on above: Performed By: #### C GARRET #### [facility] [address] [place] [address] Dr. Susannah Hopkins BASOM % 0.0 % Critically low 0.2-2.0 [facility] Comment on above: Performed By: #### C GARRET #### [facility] [address] [place] [address] Dr. Susannah Hopkins BLAST # Normal [facility] Comment on above: Performed By: #### C GARRET #### [facility] [address] [place] [address] Dr. Susannah Hopkins BLAST % Normal [facility] Comment on above: Performed By: #### C GARRET #### [facility] [address] [place] [address] Dr. Susannah Hopkins CORRECTED WBC Normal 4.0-11.[address] [facility] Comment on above: Performed By: #### C GARRET #### [facility] [address] [place] [address] Dr. Susannah Hopkins EOS # 0.00 103/ul Normal 0.00-0.70 [facility] Comment on above: Performed By: #### C GARRET #### [facility] [address] [address] [address] Susannah Hopkins EOS% 0.0 % Critically low 0.9-7.0 [facility] Comment on above: Performed By: #### C GARRET #### [facility] [address] [address] [address] Susannah Hopkins HCT 46.0 % Normal 36.0-48.0 [facility] Comment on above: Performed By: #### C GARRET #### [facility] [address] [address] [address] Susannah Hopkins HGB 15.7 g/dl Normal 12.0-16.0 [facility] Comment on above: Performed By: #### C GARRET #### [facility] [address] [address] [address] Susannah Hopkins LYMPHM # 0.69 103/ul Critically low 1.20-3.80 [facility] Comment on above: Performed By: #### C GARRET #### [facility] [address] [address] [address] Susannah Hopkins LYMPHM% 4.0 % Critically low 20.5-60.0 [facility] Comment on above: Performed By: #### C GARRET #### [facility] [address] [address] [address] Susannah Hopkins MCH 30.1 pg Normal 26.7-34.0 [facility] Comment on above: Performed By: #### C GARRET #### [facility] [address] [address] [address] Susannah Hopkins MCHC 34.1 g/dl Normal 29.9-35.2 [facility] Comment on above: Performed By: #### C GARRET #### [facility] [address] [address] [address] Susannah Hopkins MCV 88.3 fL Normal 81.0-99.0 [facility] Comment on above: Performed By: #### C GARRET #### [facility] [address] [place] [address] Dr. Susannah Hopkins METAMYELOCYTE # Normal [facility] Comment on above: Performed By: #### C ESDRASMAN #### [facility] [address] [place] [address] Dr. Susannah Hopkins METAMYELOCYTE % Normal [facility] Comment on above: Performed By: #### C GARRET #### [facility] [address] [place] [address] Dr. Susannah Hopkins MONOM# 1.20 103/ul Critically high 0.30-0.80 [facility] Comment on above: Performed By: #### C GARRET #### [facility] [address] [place] [address] Dr. Susannah Hopkins MONOM% 7.0 % Normal 1.7-12.0 [facility] Comment on above: Performed By: #### C GARRET #### [facility] [address] [place] [address] Dr. Susannah Hopkins MPV 9.8 fL Normal 9.5-13.5 [facility] Comment on above: Performed By: #### C GARRET #### [facility] [address] [place] [address] Dr. Susannah Hopkins MYELOCYTE # Normal [facility] Comment on above: Performed By: #### C GARRET #### [facility] [address] [place] [address] Dr. Susannah Hopkins MYELOCYTE % Normal [facility] Comment on above: Performed By: #### C GARRET #### [facility] [address] [place] [address] Dr. Susannah Hopkins NRBC Normal [facility] Comment on above: Performed By: #### C ESDRASMAN #### [facility] [address] [place] [address] Dr. Susannah Hopkins PLT 278 103/ul Normal 150-450 [facility] Comment on above: Performed By: #### C GARRET #### [facility] [address] [place] [address] Dr. Susannah Hopkins RBC 5.21 106/ul Normal 4.20-5.40 [facility] Comment on above: Performed By: #### C ESDRASMAN #### [facility] [address] [address] [address] Susannah Hopkins RDW 11.7 % Normal 11.0-15.0 [facility] Comment on above: Performed By: #### C ESDRASMAN #### [facility] [address] [address] [address] Susannah Hopkins SEG # 14.96 103/ul Critically high 1.40-6.50 [facility] Comment on above: Performed By: #### C GARRET #### [facility] [address] [address] [address] Susannah Hopkins SEG % 87.0 % Critically high 43.0-75.0 [facility] Comment on above: Performed By: #### C GARRET #### [facility] [address] [place] [address] Dr. Susannah Hopkins WBC 17.2 103/ul Critically high 4.0-11.0 [facility] Comment on above: Performed By: #### C GARRET #### [facility] [address] [address] [address] Susannah Hopkins INFLUENZA A AND B AGon 07-28 [facility] SEE BELOW Normal [facility] Comment on above: Result Comment: Nega tive for Flu A protein angiten. Infection due to Flu A cannot be ruled out. Flu A angiten in the sample may be below the detection limit of the test. Performed By: #### I NFLUAB #### [facility] [address] [place] [address] Dr. Susannah Hopkins INFLUBNEG SEE BELOW Normal [facility] Comment on above: Result Comment: Nega tive for Flu B protein antigen. Infection due to Flu B cannot be ruled out. Flu B antigen in the sample may be below the detection limit of the test. Performed By: #### I NFLUAB #### [facility] [address] [address] [address] Susannah Hopkins INFLUENZA A AG Negative Normal NEGATIVE SEE COMMENT [facility] Comment on above: Performed By: #### I NFLUAB #### [facility] [address] [address] [address] Susannah Hopikns INFLUENZA B AG Negative Normal NEGATIVE SEE COMMENT [facility] Comment on above: Performed By: #### I NFLUAB #### [facility] [address] [address] [address] Susannah Hopkins INTERNAL CONTROLS Within Normal Limits Normal Within Normal Limits [facility] Comment on above: Performed By: #### I NFLUAB #### [facility] [address] [place] [address] Dr. Susannah Hopkins PREG HCG QUALon 07-28-2021 , QUAL Negative Normal NEGATIVE [facility] Comment on above: Performed By: #### P REG #### [facility] [address] [place] [address] Dr. Susannah Hopkins PROF 14(COMP METB)on 022 Albumin [Mass/Vol] 4.4 g/dL Normal 3.4-5.0 [facility] Comment on above: Performed By: #### C MP #### [facility] [address] [place] [address] Dr. Susannah Hopkins Albumin/Globulin [Mass ratio] 1.1 {ratio} Normal [facility] Comment on above: Performed By: #### C MP #### [facility] [address] [place] [address] Dr. Susannah Hopkins ALP [Catalytic activity/Vol] 71 U/L Normal 46-116 [facility] Comment on above: Performed By: #### C MP #### [facility] [address] [place] [address] Dr. Susannah Hopkins ALT [Catalytic activity/Vol] 19 U/L Normal 14-59 [facility] Comment on above: Performed By: #### C MP #### [facility] [address] [place] [address] Dr. Susannah Hopkins Anion gap [Moles/Vol] 15.1 mmol/L Normal [facility] Comment on above: Performed By: #### C MP #### [facility] [address] [address] [address] Susannah Hopkins AST [Catalytic activity/Vol] 23 U/L Normal 15-37 [facility] Comment on above: Performed By: #### C MP #### [facility] [address] [place] [address] Dr. Susannah Hopkins Bilirubin [Mass/Vol] 0.9 mg/dL Normal 0.2-1.3 [facility] Comment on above: Performed By: #### C MP #### [facility] [address] [place] [address] Dr. Susannah Hopkins Calcium [Mass/Vol] 9.5 mg/dL Normal 8.5-10.1 [facility] Comment on above: Performed By: #### C MP #### [facility] [address] [place] [address] Dr. Susannah Hopkins Chloride [Moles/Vol] 101 mmol/L Normal 98-107 [facility] Comment on above: Performed By: #### C MP #### [facility] [address] [place] [address] Dr. Susannah Hopkins CO2 [Moles/Vol] 23.8 mmol/L Normal 22.0-30.0 [facility] Comment on above: Performed By: #### C MP #### [facility] [address] [place] [address] Dr. Susannah Hopkins Creatinine [Mass/Vol] 1.04 mg/dL Normal 0.52-1.04 [facility] Comment on above: Performed By: #### C MP #### [facility] [address] [place] [address] Dr. Susannah Hopkins EGFR-AF SPANISH >60 Normal >=60 [facility] Comment on above: Performed By: #### C MP #### [facility] [address] [place] [address] Dr. Susannah Hopkins EGFR-NON AF SPANISH >60 Normal >=60 [facility] Comment on above: Performed By: #### C MP #### [facility] [address] [place] [address] Dr. Susannah Hopkins Globulin (S) [Mass/Vol] 3.9 g/dL Normal [facility] Comment on above: Performed By: #### C MP #### [facility] [address] [address] [address] Susannah Hopkins Glucose [Mass/Vol] 157 mg/dL Critically high 74-106 [facility] Comment on above: Performed By: #### C MP #### [facility] [address] [address] [address] Susannah Hopkins Potassium [Moles/Vol] 3.9 mmol/L Normal 3.4-5.0 [facility] Comment on above: Performed By: #### C MP #### [facility] [address] [place] [address] Dr. Susannah Hopkins Protein [Mass/Vol] 8.3 g/dL Critically high 6.1-8.2 [facility] Comment on above: Performed By: #### C MP #### [facility] [address] [address] [address] Susannah Hopkins Sodium [Moles/Vol] 136 mmol/L Critically low 137-[address] [facility] Comment on above: Performed By: #### C MP #### [facility] [address] [place] [address] Dr. Susannah Hopkins Urea nitrogen [Mass/Vol] 20.0 mg/dL Critically high 7.0-18.0 [facility] Comment on above: Performed By: #### C MP #### [facility] [address] [place] [address] Dr. Susannah Hopkins Urea nitrogen/Creatinine [Mass ratio] 19.2 mg/mg Normal [facility] Comment on above: Performed By: #### C MP #### [facility] [address] [place], [place] [id number] Dr. Susannah Hopkins Vital Signs Date Time Vital Sign Value Performing Clinician Facility 01-02-2025 08:040 Body mass index (BMI) [Ratio] 28.96 kg/m2 [facility] Work Phone: [facility] 01-02-2025 [id number] Body weight 74.16 kg Rocio Blake DO Work Phone: [facility] 01-02-2025 08:26-0400 Diastolic blood pressure 76 mm[Hg] Rocio Blake DO Work Phone: [facility] 01-02-2025 08:26-0400 Systolic blood pressure 120 mm[Hg] Rocio Blake DO Work Phone: [facility] 12-19-2024 09:04-0400 Body mass index (BMI) [Ratio] 28.7 kg/m2 Nadine Mandy PA Work Phone: [facility] 12-19-2024 09:04-0400 Body weight 73.48 kg Nadine Papaaloa PA Work Phone: [facility] 12-19-2024 09:04-0400 Diastolic blood pressure 78 mm[Hg] Nadine Papaaloa PA Work Phone: [facility] 12-19-2024 09:04-0400 Systolic blood pressure 104 mm[Hg] Nadine Mandy PA Work Phone: [facility] 12-05-2024 09:23-0400 Body mass index (BMI) [Ratio] 28.52 kg/m2 Rocio Blake DO Work Phone: [facility] 12-05-2024 09:23-0400 Body weight 73.03 kg Rocio Blake DO Work Phone: [facility] 12-05-2024 09:23-0400 Diastolic blood pressure 76 mm[Hg] Rocio Blake DO Work Phone: [facility] 12-05-2024 09:23-0400 Systolic blood pressure 120 mm[Hg] Rocio Blake DO Work Phone: [facility] 11-22-2024 08:52-0400 Body mass index (BMI) [Ratio] 28.19 kg/m2 Nadine Mandy PA Work Phone: [facility] 11-22-2024 08:52-0400 Body weight 72.18 kg Nadine Mandy PA Work Phone: [facility] 11-22-2024 08:52-0400 Diastolic blood pressure 76 mm[Hg] Nadine DE JESUS Work Phone: [facility] 11-22-2024 08:52-0400 Systolic blood pressure 120 mm[Hg] Nadine DE JESUS Work Phone: [facility] 10-26-2024 12:05-0400 Body mass index (BMI) [Ratio] 26.93 kg/m2 Rocio Blake DO Work Phone: [facility] 10-26-2024 12:05-0400 Body weight 68.95 kg Rocio Blake DO Work Phone: [facility] 10-26-2024 12:05-0400 Diastolic blood pressure 68 mm[Hg] Rocio Blake DO Work Phone: [facility] 10-26-2024 12:05-0400 Systolic blood pressure 120 mm[Hg] Rocio Blake DO Work Phone: [facility] 08-29-2024 14:34-0400 Body mass index (BMI) [Ratio] 25.65 kg/m2 Rocio Blake DO Work Phone: [facility] 08-29-2024 14:34-0400 Body weight 65.68 kg Rocio Blake DO Work Phone: [facility] 08-29-2024 14:34-0400 Diastolic blood pressure 72 mm[Hg] Rocio Blake DO Work Phone: [facility] 08-29-2024 14:34-0400 Systolic blood pressure 120 mm[Hg] Rocio Blake DO Work Phone: [facility] 08-10-2024 14:55-0400 Body height 160 cm [facility] Nurse [facility] 08-10-2024 14:55-0400 Body mass index (BMI) [Ratio] 25.18 kg/m2 [facility] 08-10-2024 14:55-0400 Body weight 64.47 kg [facility] Nurse [facility] 08-10-2024 14:55-0400 Diastolic blood pressure 76 mm[Hg] [facility] 08-10-2024 14:55-0400 Systolic blood pressure 120 mm[Hg] [facility] Nurse [facility] 05-16-2024 12:44-0500 Body weight 65.32 kg Attila Bundy MD Work Phone: [facility] 05-16-2024 12:44-0500 Diastolic blood pressure 78 mm[Hg] Attila Bundy MD Work Phone: [facility] 05-16-2024 12:44-0500 Systolic blood pressure 120 mm[Hg] Attila Bundy MD Work Phone: [facility] 02-08-2024 15:08-0400 Body weight 66.22 kg Attila Bundy MD Work Phone: [facility] 02-08-2024 15:08-0400 Diastolic blood pressure 68 mm[Hg] Attila Bundy MD Work Phone: [facility] 02-08-2024 15:08-0400 Systolic blood pressure 130 mm[Hg] Attila Bundy MD Work Phone: [facility] 05-12-2023 07:30-0500 Body height 158.75 cm Tyrell Stiles Other [employer] Other 05-12-2023 07:30-0500 Body mass index (BMI) [Ratio] 25.41 kg/m2 Tyrell Stiles Other [employer] Other 05-12-2023 07:30-0500 Body weight 64.05 kg Tyrell Stiles Other [employer] Other 05-12-2023 07:30-0500 Diastolic blood pressure 78 mm[Hg] Tyrell Stiles Other [employer] Other 05-12-2023 07:30-0500 Respiratory rate 16 /min Tyrell Stiles Other [employer] Other 05-12-2023 07:30-0500 SaO2% (BldA) [Mass fraction] 98 % Tyrell Stiles Other [employer] Other 05-12-2023 07:30-0500 Systolic blood pressure 122 mm[Hg] Tyrell Stiles Other [employer] Other 02-24-2023 12:30-0400 Body height 158.75 cm Lisandro Kuns Other [employer] Other 02-24-2023 12:30-0400 Body mass index (BMI) [Ratio] 25.2 kg/m2 Lisandro Kuns Other [employer] Other 02-24-2023 12:30-0400 Body weight 63.5 kg Lisandro Kuns Other [employer] Other 02-24-2023 12:30-0400 Diastolic blood pressure 85 mm[Hg] Lisandro Kuns Other [employer] Other 02-24-2023 12:30-0400 Respiratory rate 16 /min Lisandro Kuns Other [employer] Other 02-24-2023 12:30-0400 SaO2% (BldA) [Mass fraction] 99 % Lisandro Kuns Other [employer] Other 02-24-2023 12:30-0400 Systolic blood pressure 140 mm[Hg] Lisandro Kuns Other [employer] Other Encounters Encounter Date Encounter Type Care Provider Facility Start: 01-02-2025 End: 01-02-2025 Bamboo flowsheet Rocio Blake DO Work Phone: [facility] Start: 01-02-2025 End: 01-02-2025 Bamboo flowsheet Rocio Blake DO Work Phone: [facility] Start: 01-02-2025 End: 01-02-2025 flow sheet Rocio Blake DO Work Phone: [facility] Comment on above: Third trimester preg lindsey ([facility]); 32 weeks gestation of ([facility]); ZULMA (amniotic fluid index) borderline low Start: 01-02-2025 End: 01-02-2025 ambulatory ROCIO BLAKE Not Available Start: 12-19-2024 End: 12-19-2024 flow sheet Nadine DE JESUS Work Phone: [facility] Comment on above: 30 weeks gestation o f ([facility]); Third trimester ([facility]); HSV infection Start: 12-19-2024 End: 12-19-2024 ambulatory NADINE GALVAN Not Available Start: 12-05-2024 End: 12-05-2024 Bamboo flowsheet Rocio Blake DO Work Phone: [facility] Start: 12-05-2024 End: 12-05-2024 Bamboo flowsheet Rocio Blake DO Work Phone: [facility] Start: 12-05-2024 End: 12-05-2024 flow sheet Rocio Blake DO Work Phone: [facility] Comment on above: Third trimester preg lindsey ([facility]); 28 weeks gestation of ([facility]); HSV infection; size inconsistent with dates ([facility]) Start: 12-05-2024 End: 12-05-2024 ambulatory ROCIO BLAKE Not Available Start: 11-28-2024 End: 11-28-2024 Clinisync Result Encounter Nadine DE JESUS Work Phone: [facility] Unsolicited Start: 11-28-2024 End: 11-28-2024 Clinisync Result Encounter Nadine DE JESUS Work Phone: [facility] Unsolicited Start: 11-22-2024 End: 11-22-2024 Clinisync Result Encounter Rocio Blake DO Work Phone: [facility] Unsolicited Start: 11-22-2024 End: 11-22-2024 Clinisync Result Encounter Rocio Blake DO Work Phone: [facility] Unsolicited Start: 11-22-2024 End: 11-22-2024 flow sheet Nadine DE JESUS Work Phone: [facility] Comment on above: 26 weeks gestation o f ([facility]); Second trimester ([facility]); Elevated glucose tolerance test Start: 11-22-2024 End: 11-22-2024 ambulatory NADINE GALVAN Not Available Start: 10-26-2024 End: 10-26-2024 ambulatory ROCIO BLAKE Not Available Start: 10-26-2024 End: 10-26-2024 flow sheet Rocio Blake DO Work Phone: [facility] Comment on above: Second trimester pre gnancy ([facility]); 22 weeks gestation of ([facility]); Diabetes mellitus screening Start: 10-26-2024 End: 10-26-2024 [...] Result Encounter Rocio Blake DO Work Phone: [facility] External Department Unsolicited Start: 08-29-2024 End: 08-29-2024 ambulatory ROCIO BLAKE Not Available Start: 08-10-2024 End: 08-10-2024 Office outpatient visit 5 minutes [facility] Nurse [facility] Comment on above: GA: 11w3d Start: 08-10-2024 End: 08-10-2024 ambulatory ROCIO BLAKE Not Available Start: 07-11-2024 End: 07-11-2024 flow sheet [facility] Nurse [facility] Comment on above: GA: 9w0d Start: 07-11-2024 End: 07-11-2024 ambulatory ROCIO BLAKE Not Available Start: 05-16-2024 End: 05-16-2024 Office outpatient visit 15 minutes Attila Bundy MD Work Phone: [facility] Comment on above: Hormone imbalance (P rimary Dx); Amenorrhea; Missed menses; Family planning; Thyroid disorder screen Start: 05-16-2024 End: 05-16-2024 ambulatory ATTILA BUNDY Not Available Start: 03-30-2024 End: 03-30-2024 ambulatory [facility] Facility:[facility] Start: 02-08-2024 End: 02-08-2024 Patient encounter status Attila Bundy MD Work Phone: [facility] Healthcare Start: 02-08-2024 End: 02-08-2024 Periodic preventive med est patient 18-39 yrs Attila Bundy MD Work Phone: [facility] Comment on above: Amenorrhea (Primary Dx); Screening for malignant neoplasm of cervix; Encounter for gynecological examination without abnormal finding; Encounter for surveillance of vaginal ring hormonal contraceptive device; Missed menses Start: 02-08-2024 End: 02-08-2024 ambulatory ATTILA BUNDY Not Available Start: 01-24-2024 End: 01-24-2024 ambulatory Facility:[facility] Start: 07-27-2023 End: 07-27-2023 ambulatory Zita Alanis Facility: [facility] Start: 07-05-2023 End: 07-05-2023 ambulatory Zita Alanis Facility: [facility] Start: 05-12-2023 End: 05-12-2023 ambulatory Tyrell Stiles Other [employer] Other Start: 05-12-2023 Office outpatient vi sit 15 minutes Tyrell Stiles [facility] Start: 03-02-2023 End: 03-02-2023 ambulatory Lisandro Kuns Facility:[facility] Start: 03-02-2023 End: 03-02-2023 ambulatory DO Lisandro Kuns Work Phone: [facility] Work Phone: Start: 03-02-2023 End: 03-02-2023 Patient encounter procedure DO Lisandroteri Martínezs Work Phone: [facility] Start: 02-24-2023 End: 02-24-2023 ambulatory Lisandro Kuns Other [employer] Other Start: 02-24-2023 Encounter for genera l adult medical examination without abnormal findings Lisandroteri Buitrago [facility] Start: 02-24-2023 Office outpatient ne w 30 minutes Lisandro Mauricios [facility] Start: 07-28-2021 End: 07-28-[address] JANES GARCIA Facility: Procedures Date Procedure Procedure Detail Performing Clinician Start: 01-02-2025 Urnls dip stick/tabl et rgnt non-auto w/o micrscp Rocio Lozano DO Work Phone: Start: 12-19-2024 Urnls dip stick/tabl et rgnt non-auto w/o micrscp Nadine DE JESUS Work Phone: Start: 11-28-2024 GLUCOSE TOLERANCE 3 HOUR Nadine DE JESUS Work Phone: Start: 11-22-2024 Urnls dip stick/tabl et rgnt [...] 03-02-2023 Plain chest X-ray DO Br ett Minna Work Phone: Start: 03-02-2023 Plain X-ray of left shoulder DO Lisandro Minna Work Phone: Plan of Treatment Date Care Activity Detail Author Start: 01-16-2025 End: 01-16-2025 Patient encounter procedure 01/16/2025 8:50 AM EDT Routine JORDY MONTANO [address] [place] [id number] Nadine Galvan PA [address] [place] [address] JODRY MONTANO Start: 01-08-2025 Influenza vaccination [facility] Start: 01-02-2025 End: 07-05-2025 US biophysical profile w non stress test US biophysical profile w non stress test Imaging Routine ZULMA (amniotic fluid index) borderline low Expected: 01/02/2025 (Approximate), Expires: 07/05/2025 [facility] Work Phone: Comment on above: Expected: 01/02/2025 (Approximate), Expires: 07/05/2025 Start: 01-02-2025 End: 01-02-2025 Patient encounter procedure [facility] Comment on above: Arrived Start: 12-19-2024 End: 12-19-2024 Patient encounter procedure 12/19/2024 8:50 AM EDT Routine [facility] [address] [place] [address] Nadine Galvan PA [address] [place] [address] [facility] Start: 12-19-2024 End: 12-19-2024 Professional / ancillary services management 12/19/2024 8:00 AM EDT Ancillary Procedure JORDY Peng OBSOF[facility]A [address] [place] [address] [facility] Start: 12-05-2024 End: 04-07-2025 US for US OB follow up transabdominal approach Imaging Routine size inconsistent with dates ([facility]) Expected: 12/05/2024, Expires: 04/07/2025 [facility] Work Phone: Comment on above: Expected: 12/05/2024 , Expires: 04/07/2025 Start: 12-05-2024 End: 12-05-2024 Patient encounter procedure [facility] Comment on above: Arrived Start: 11-22-2024 End: 11-22-2025 Measurement of glucose 3 hours after glucose challenge for glucose tolerance test Glucose tolerance, 3 hours Lab Routine Elevated glucose tolerance test Expected: 11/22/2024 (Approximate), Expires: 11/22/2025 [facility] Work Phone: Comment on above: Expected: 11/22/2024 (Approximate), Expires: 11/22/2025 Start: 11-22-2024 End: 11-22-2024 Patient encounter procedure 11/22/2024 8:50 AM EDT Routine [facility] [address] [place] [id number] Nadine Galvan PA [address] [place] [address] [place], [place] [id number] [facility] Start: 10-26-2024 End: 10-26-2025 CBC panel - Blood by Automated count CBC Lab Routine Diabetes mellitus screening Expected: 10/26/2024 (Approximate), Expires: 10/26/2025 [facility] Work Phone: Comment on above: Expected: 10/26/2024 (Approximate), Expires: 10/26/2025 Start: 10-26-2024 End: 10-26-2025 Measurement of glucose 1 hour after glucose challenge for glucose tolerance test Glucose tolerance, 1 hour Lab Routine Diabetes mellitus screening Expected: 10/26/2024 (Approximate), Expires: 10/26/2025 [facility] Comment on above: Expected: 10/26/2024 (Approximate), Expires: 10/26/2025 Start: 09-27-2024 End: 09-27-2024 Patient encounter procedure 09/27/2024 3:30 PM EDT Routine [facility] [address] [place] [phone] Nadine Galvan PA [address] [place], [place] [phone] [facility] Start: 08-29-2024 End: 08-29-2024 Patient encounter procedure [facility] Comment on above: Arrived Start: 07-27-2024 End: 07-27-2024 ambulatory 07/27/2024 10:30 AM EDT Initial [facility] [address] [place] [phone] Attila Bundy MD [address] [place] [address] [facility] Start: 07-17-2024 End: 07-17-2024 Patient encounter procedure 07/17/2024 12:30 PM EDT Office Visit [facility] [address] [place] [phone] Attila Bundy MD [address] [place] [address] [facility] Start: 07-17-2024 End: 07-17-2024 Professional / ancillary services management 07/17/2024 8:30 AM EDT Ancillary Procedure [facility] [address] [place] [phone] [facility] Start: 07-11-2024 End: 07-11-2025 Bacteria identified in Urine by Culture Urine culture Microbiology Routine Encounter for supervision of normal first in first trimester Expected: 07/11/2024, Expires: 07/11/2025 [facility] Comment on above: Expected: 07/11/2024 , Expires: 07/11/2025 Start: 07-11-2024 End: 07-11-2025 BEACON CARRIER SCREEN;14 GENES BEACON CARRIER SCREEN;14 GENES Lab Routine Screening for genetic disease carrier status Expected: 07/11/2024 (Approximate), Expires: 07/11/2025 [facility] Comment on above: Expected: 07/11/2024 (Approximate), Expires: 07/11/2025 Start: 07-11-2024 End: 07-11-2025 Blood type and Indirect antibody screen panel - Blood Type and screen Lab Routine Encounter for supervision of normal first in first trimester Expected: 07/11/2024, Expires: 07/11/2025 [facility] Comment on above: Expected: 07/11/2024 , Expires: 07/11/2025 Start: 07-11-2024 End: 07-11-2025 CBC W Auto Differential panel - Blood CBC and differential Lab Routine Encounter for supervision of normal first in first trimester Expected: 07/11/2024, Expires: 07/11/2025 [facility] Comment on above: Expected: 07/11/2024 , Expires: 07/11/2025 Start: 07-11-2024 End: 07-11-2025 DRUG SCREEN 17 W/CONF, UR DRUG SCREEN 17 W/CONF, UR Lab Routine Encounter for drug screening Expected: 07/11/2024, Expires: 07/11/2025 [facility] Comment on above: Expected: 07/11/2024 , Expires: 07/11/2025 Start: 07-11-2024 End: 07-11-2025 Hepatitis B virus surface Ag [Presence] in Serum or Plasma by Immunoassay Hepatitis B surface antigen Lab Routine Encounter for supervision of normal first in first trimester Expected: 07/11/2024, Expires: 07/11/2025 [facility] Comment on above: Expected: 07/11/2024 , Expires: 07/11/2025 Start: 07-11-2024 End: 07-11-2025 Hepatitis C virus Ab [Presence] in Serum or Plasma by Immunoassay Hepatitis C antibody Lab Routine Encounter for supervision of normal first in first trimester Expected: 07/11/2024, Expires: 07/11/2025 [facility] Comment on above: Expected: 07/11/2024 , Expires: 07/11/2025 Start: 07-11-2024 End: 07-11-2025 HIV-1/HIV-2 antigen/antibody combination immunoassay HIV-1 and HIV-2 antibodies Lab Routine Encounter for supervision of normal first in first trimester Expected: 07/11/2024, Expires: 07/11/2025 [facility] Comment on above: Expected: 07/11/2024 , Expires: 07/11/2025 Start: 07-11-2024 End: 07-11-2025 [id number] PLUS Core+SCA [id number] PLUS Core+SCA Lab Routine Encounter for screening for chromosomal anomalies Expected: 07/11/2024 (Approximate), Expires: 07/11/2025 [facility] Comment on above: Expected: 07/11/2024 (Approximate), Expires: 07/11/2025 Start: 07-11-2024 End: 07-11-2025 Reagin Ab [Presence] in Serum by RPR RPR Lab Routine Encounter for supervision of normal first in first trimester Expected: 07/11/2024, Expires: 07/11/2025 [facility] Comment on above: Expected: 07/11/2024 , Expires: 07/11/2025 Start: 07-11-2024 End: 07-11-2025 Rubella antibody, IgG Rubella antibody, IgG Lab Routine Encounter for supervision of normal first in first trimester Expected: 07/11/2024, Expires: 07/11/2025 [facility] Comment on above: Expected: 07/11/2024 , Expires: 07/11/2025 Start: 07-11-2024 End: 07-11-2025 Urinalysis complete panel - Urine Urinalysis with microscopic Lab Routine Encounter for supervision of normal first in first trimester Expected: 07/11/2024, Expires: 07/11/2025 [facility] Work Phone: Comment on above: Expected: 07/11/2024 , Expires: 07/11/2025 Start: 05-16-2024 End: 05-16-2025 Cortisol Cortisol Lab Routine Hormone imbalance Expected: 05/16/2024, Expires: 05/16/2025 [facility] Comment on above: Expected: 05/16/2024 , Expires: 05/16/2025 Start: 05-16-2024 End: 05-16-2025 DHEA-sulfate DHEA-sulfate Lab Routine Hormone imbalance Expected: 05/16/2024, Expires: 05/16/2025 [facility] Comment on above: Expected: 05/16/2024 , Expires: 05/16/2025 Start: 05-16-2024 End: 05-16-2025 Estradiol Estradiol Lab Routine Hormone imbalance Expected: 05/16/2024, Expires: 05/16/2025 [facility] Comment on above: Expected: 05/16/2024 , Expires: 05/16/2025 Start: 05-16-2024 End: 05-16-2025 Estrone Estrone Lab Routine Hormone imbalance Expected: 05/16/2024, Expires: 05/16/2025 [facility] Comment on above: Expected: 05/16/2024 , Expires: 05/16/2025 Start: 05-16-2024 End: 05-16-2025 Follicle stimulating hormone Follicle stimulating hormone Lab Routine Hormone imbalance Thyroid disorder screen Expected: 05/16/2024, Expires: 05/16/2025 [facility] Comment on above: Expected: 05/16/2024 , Expires: 05/16/2025 Start: 05-16-2024 End: 05-16-2025 Insulin, fasting Insulin, fasting Lab Routine Amenorrhea Missed menses Hormone imbalance Expected: 05/16/2024, Expires: 05/16/2025 [facility] Comment on above: Expected: 05/16/2024 , Expires: 05/16/2025 Start: 05-16-2024 End: 05-16-2025 Luteinizing hormone Luteinizing hormone Lab Routine Hormone imbalance Thyroid disorder screen Expected: 05/16/2024, Expires: 05/16/2025 [facility] Comment on above: Expected: 05/16/2024 , Expires: 05/16/2025 Start: 05-16-2024 End: 05-16-2025 Progesterone Progesterone Lab Routine Hormone imbalance Expected: 05/16/2024, Expires: 05/16/2025 [facility] Comment on above: Expected: 05/16/2024 , Expires: 05/16/2025 Start: 05-16-2024 End: 05-16-2025 Sex hormone binding globulin Sex hormone binding globulin Lab Routine Hormone imbalance Expected: 05/16/2024, Expires: 05/16/2025 [facility] Comment on above: Expected: 05/16/2024 , Expires: 05/16/2025 Start: 05-16-2024 End: 05-16-2025 Testosterone, free, total Testosterone, free, total Lab Routine Hormone imbalance Expected: 05/16/2024, Expires: 05/16/2025 [facility] Comment on above: Expected: 05/16/2024 , Expires: 05/16/2025 Start: 05-16-2024 End: 05-16-2025 Thyrotropin [Units/volume] in Serum or Plasma TSH Lab Routine Hormone imbalance Thyroid disorder screen Expected: 05/16/2024, Expires: 05/16/2025 [facility] Work Phone: Comment on above: Expected: 05/16/2024 , Expires: 05/16/2025 Start: 05-16-2024 End: 05-16-2025 Vitamin D 1,25 dihydroxy Vitamin D 1,25 dihydroxy Lab Routine Hormone imbalance Expected: 05/16/2024, Expires: 05/16/2025 [facility] Comment on above: Expected: 05/16/2024 , Expires: 05/16/2025 Start: 05-16-2024 End: 05-16-2024 Patient encounter procedure 05/16/2024 12:30 PM EST Office Visit [facility] [address] [place] [address] Attila Bundy MD [address] [place] [address] [facility] Start: 02-08-2024 End: 02-07-2025 Follicle stimulating hormone Follicle stimulating hormone Lab Routine Amenorrhea Expected: 02/08/2024 (Approximate), Expires: 02/07/2025 [facility] Comment on above: Expected: 02/08/2024 (Approximate), Expires: 02/07/2025 Start: 01-09-2024 Influenza vaccination Influenza Vacc ine (#1) [facility] hCG, qualitative hCG, qualitativ e Lab Routine Amenorrhea Ordered: 02/08/2024 [facility] Comment on above: Ordered: 02/08/2024 Hemoglobin A1c/Hemoglobin.total in Blood Hemoglobin A1c Lab Routine with uncertain dates, antepartum Ordered: 08/10/2024 [facility] Work Phone: Comment on above: Ordered: 08/10/2024 Luteinizing hormone Luteinizing hormone Lab Routine Amenorrhea Ordered: 02/08/2024 [facility] Comment on above: Ordered: 02/08/2024 Progesterone Progesterone Lab Routine Amenorrhea Ordered: 02/08/2024 [facility] Comment on above: Ordered: 02/08/2024 SENDOUT TEST MISCELLANEOUS [facility] SENDOUT TEST MISCELLANEOUS [facility] Lab Routine Screening for malignant neoplasm of cervix Encounter for gynecological examination without abnormal finding Ordered: 02/08/2024 [facility] Work Phone: Comment on above: Ordered: 02/08/2024 Testosterone, free, total Testosterone, free, total Lab Routine Amenorrhea Ordered: 02/08/2024 [facility] Comment on above: Ordered: 02/08/2024 Immunizations Immunization Date Immunization Notes Care Provider Flako garrison 09-25-2020 COVID-19 Vaccine Moderna - Documentation Purposes Only Lisandro Buitrago Other [facility] Other 08-21-2020 COVID-19 Vaccine Moderna - Documentation Purposes Only Lisandro Buitrago Other [facility] Other Payers Date Payer Category Payer Unknown [id number] 2023 Private Health Insurance [id number] 2023 Private Health Insurance [id number] 2023 Unknown [id number] 2. [id number] 1995 Unknown [id number] 2.16.84 0.1.587996.3.579.2.593 1995 Unknown [id number] 2.16.8 40.1.495066.3.579.2.718 1995 Unknown [id number] 2.16.8 40.1.586415.3.579.2.718 1995 Unknown [id number] 2.16.8 40.1.712984.3.579.2.718 1995 Unknown [id number] 2.16.8 40.1.701195.3.579.2.9 1995 Unknown [id number] 2.16.8 40.1.630560.3.579.2.1259 1995 Unknown [id number] 2.16.8 40.1.533558.3.579.2.1259 1995 Unknown [id number] 2.16.8 40.1.779933.3.579.2.9 1995 Unknown [id number] 2.16.8 40.1.392287.3.579.2.1258 1995 Unknown [id number] 2.16.8 40.1.323339.3.579.2.9 1995 Unknown [id number] 2.16.8 40.1.782815.3.579.2.1258 1995 Unknown [id number] 2.16.84 0.1.608023.3.579.2.1258 1995 Unknown [id number] 2.16.84 0.1.477202.3.579.2.1258 1995 Unknown [id number] 2.16.84 0.1.557731.3.579.2.9 1995 Unknown [id number] 2.16.84 0.1.888008.3.579.2.9 1995 Unknown [id number] 2.16.84 0.1.309740.3.579.2.9 1995 Unknown [id number] 2.16.84 0.1.737926.3.579.2.9 1995 Unknown [id number] 2.16.84 0.1.818670.3.579.2.1259 1959 Self-pay Unknown MMO [id number] 2.16.8 40.1.998460.3.579.2.531 Social History Date Type Detail Facility Start: 02-08-2024 End: 05-16-2024 Sex Assigned At [facility] [place] Other Start: 1995 Sex Assigned At Female F [facility] Start: 05-15-2023 [facility] Start: 05-15-2023 [...] file [facility] Start: 05-16-2024 End: 12-19-2024 Alcoholic beverage intake Ex-drinker (finding) [facility] Start: 07-11-2024 Alcohol Comment caffeine intake: rar e [facility] Start: 05-23-2024 [facility] Go[facility] Date Patient Goal Desired Activity /State Personal health goal Clinical Notes 02-24-2023 to 01-02-2025 Zita Borrego LPN - 01/02/2025 8:30 AM LIZA Harris 12/19/2024 8:50 AM Elton Borrego LPN - 12/05/2024 9:00 AM LIZA Harris 11/22/2024 8:50 AM Elton Borrego LPN - 08/29/2024 2:10 PM EDT Note Date & Type Note Facility 01-02-2025 History of Presen t illness Narrative Reason [...] nursing note reviewed. Exam conducted with a medical interpreter present. Vitals: Estimated body mass index is 28.96 kg/m as calculated from the following: Height as of 08/10/24: 5' 3 . Weight as of this encounter: 163 lb 8 oz. BP: 120/76 Patient's last menstrual period was 05/09/2024 (exact date). ASSESSMENT & PLAN ICD-10-CM 1. Third trimester ([facility]) Z34.93 POCT urinalysis dipstick manually resulted 2. 32 weeks gestation of ([facility]) Z3A.32 Return OB: Patient presents today for [...] Rocio Lozano DO documented in this encounter [facility] 12-19-2024 History of Presen t illness Narrative Reason [...] reviewed. Vitals: Estimated body mass index is 28.7 kg/m as calculated from the following: Height as of 08/10/24: 5' 3 . Weight as of this encounter: 162 lb. BP: 104/78 Patient's last menstrual period was 05/09/2024 (exact date). ASSESSMENT & PLAN ICD-10-CM 1. 30 weeks gestation of ([facility]) Z3A.30 POCT urinalysis dipstick manually resulted 2. Third trimester ([facility]) Z34.93 POCT urinalysis dipstick manually resulted 3. HSV infection B00.9 Return OB: Patient presents today for a routine obstetrics appointment. Patient is currently 30w1d . Patient states she is doing well but has complaints of being tired due to current . Patient has verbalizes frequent movement. labor precautions was discussed/given and patient was instructed to perform kick counts three times a day. Patient denies hx of hsv. We will confirm at next appointment as she would start valterex at 32 weeks Orders Placed This Encounter Procedures POCT urinalysis dipstick manually resulted Follow Up: Patient is to return to office in 2 week for routine OB appointment. Documented by LIZA Zaldivar on behalf of: LIZA Zaldivar documented in this encounter [facility] 12-05-2024 History of Presen t illness Narrative Reason [...] Grandfather Skyler Walp Cancer Paternal Grandfather Skyler Felixp SURGICAL HISTORY Past Surgical History: Procedure Laterality [...] nursing note reviewed. Exam conducted with a medical interpreter present. Vitals: Estimated body mass index is 28.52 kg/m as calculated from the following: Height as of 08/10/24: 5' 3 . Weight as of this encounter: 161 lb. BP: 120/76 Patient's last menstrual period was 05/09/2024 (exact date). ASSESSMENT & PLAN ICD-10-CM 1. Third trimester ([facility]) Z34.93 CANCELED: POCT urinalysis dipstick manually resulted 2. 28 weeks gestation of ([facility]) Z3A.28 3. 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 size inconsistent with dates ([facility]) O26.849 US OB follow up transabdominal approach Return OB: Patient presents today for a routine obstetrics appointment. Patient is currently 28w1d . Patient states she is doing well but has complaints of being tired due to current . Patient has verbalizes frequent movement. labor precautions was discussed/given and patient was instructed to perform kick counts three times a day. Orders Placed This Encounter Procedures US OB follow up transabdominal approach Follow Up: Patient is to return to office in 2 week for routine OB appointment. Documented by Zita Borrego LPN on behalf of: Rocio Lozano DO documented in this encounter [facility] 11-22-2024 History of Presen t illness Narrative [...] Name Age of Onset Hypothyroidism Mother Esmer Walshane Polycystic ovary syndrome Mother Esmer Walp Thyroid disease Mother Esmer Walp Polycystic ovary syndrome Sister Breast cancer Maternal Grandmother Maricarmen Potts Hypothyroidism Maternal Grandfather Kwan Swiney Thyroid disease Maternal Grandfather Kwan Swiney Breast cancer Paternal Grandmother Gilda Felixp Lung cancer Paternal Grandmother Gilda Felixp Colon cancer Paternal Grandfather Skyler Walp Cancer Paternal Grandfather Skyler Sanches SURGICAL HISTORY [...] PLAN ICD-10-CM 1. 26 weeks gestation of ([facility]) Z3A.26 POCT urinalysis dipstick manually resulted 2. Second trimester ([facility]) Z34.92 POCT urinalysis dipstick manually resulted 3. [...] of: LIZA Zaldivar documented in this encounter [facility] 10-26-2024 History of Presen t illness Narrative [...] Grandmother Maricarmen Potts Hypothyroidism Maternal Grandfather Kwan oPtts Thyroid disease Maternal Grandfather Kwan Potts Breast [...] ASSESSMENT & PLAN ICD-10-CM 1. Second trimester ([facility]) Z34.92 POCT urinalysis dipstick manually resulted 2. 22 weeks gestation of ([facility]) Z3A.22 3. Diabetes mellitus screening Z13.1 [...] Rocio Lozano DO documented in this encounter [facility] 08-29-2024 History of Presen t illness Narrative [...] nursing note reviewed. Exam conducted with a medical interpreter present. Vitals: Estimated body mass index is [...] or undercooked meat, and stay away from [facility]. Patient has been consulted regarding any further do's and don'ts of . Patient voiced understanding and all questions and concerns were answered. Orders Placed This Encounter Procedures POCT urinalysis dipstick manually resulted Follow Up: Patient is to return in 4 weeks for routine OB appointment. Documented by Zita Borrego LPN on behalf of: Rocio Lozano DO documented in this encounter [facility] 08-10-2024 History of Presen t illness Narrative [...] Relation Name Age of Onset Hypothyroidism Mother Esemr Sanches Polycystic ovary syndrome Mother Esmer Snaches Thyroid disease Mother Esmer Sanches Polycystic ovary syndrome Sister Breast cancer Maternal Grandmother Maricarmen Potts Hypothyroidism Maternal Grandfather Kwan Potts Thyroid disease Maternal Grandfather Kwan Potts Breast cancer Paternal Grandmother Gidla Felixp Lung cancer Paternal Grandmother Gilda Felixp [...] or undercooked meat, and stay away from [facility]. Patient has also been advised to not change litter boxes and eat 6 small meals a day. Patient has been consulted regarding the do's and don'ts of . Patient was given labs and all questions and concerns were answered. Patient was given [place] labs to be completed with Hgb A1C. Follow Up: Patient is to return in 4 weeks for routine OB appointment. Follow Up: Patient is to have labs drawn at directed and return to office for initial OB appointment with provider. Patient may call office as needed with any concerns or questions. Nurse Visit Completed by: Domenica Jacinto LPN documented in this encounter [facility] 07-11-2024 History of Presen t illness Narrative [...] Grandmother Gilda Walp Lung cancer Paternal Grandmother Broderickn Walp Colon cancer Paternal Grandfather Skyler Walp Cancer Paternal Grandfather Skyler Walp Social History reports that she has never [...] 07/11/2024 10:03 AM documented in this encounter [facility] 05-16-2024 History of Presen t illness Narrative Images from the original note were not included. Attila Bundy MD Obstetrics and Gynecology Patient: Angelique Carlos : 1995 (28 y.o.) Exam Date: 05/16/2024 Reason for Visit - Chief Complaint Patient presents with Follow-up Follow up for Amenorrhea, missed menses, and family planning. Stopped EluRyng in 10/2023. [employer] HAND 04/03 LMP 05/09 Ovulatory 04/30 Patient did [...] Behavior: Behavior normal. Exam conducted with a medical interpreter present. Assessment/Plan ICD-10-CM 1. Amenorrhea N91.2 2. [...] in the process. documented in this encounter [facility] 05-16-2024 Instructions Attila Bundy MD - 05/16/2024 [...] routine infertility test. documented in this encounter [facility] 02-08-2024 History of Presen t illness Narrative [...] Return 1 year documented in this encounter [facility] 05-12-2023 Evaluation note Encounter Date Diagnosis Assessment [...] and trigger point injections can be done. [facility] Other 10-18-2023 Evaluation note* Encounter Date Diagnosis Assessment Notes Treatment Notes Treatment Clinical Notes Feb, Encounter to establish care (ICD-10 - Z76.89) Patient appears to be in good health upon examination. She is here to establish care for annual physcial for her employment. 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 Feb, Wellness examination (ICD-10 - Z00.00) Personalized [...] Stress test ordered to rule out abnormalities. [facility] Other Evaluation noteNo assessment information available [facility] Work Phone: Evaluation note* Diagnosis [...] for thyroid disorder documented in this encounter [facility]* Diagnosis Encounter for supervision of normal first in first trimester Encounter for drug screening care, antepartum Encounter for screening for chromosomal anomalies care in first trimester Screening for genetic disease carrier status documented in this encounter [facility]* Diagnosis with uncertain dates, antepartum [facility] Diagnosis Second trimester state, incidental 14 weeks gestation of documented in this encounter [facility]* Diagnosis Second trimester ([facility]) state, incidental 22 weeks gestation of ([facility]) Diabetes mellitus screening Screening for diabetes mellitus documented in this encounter [facility]* Diagnosis 26 weeks gestation of ([facility]) Second trimester ([facility]) state, incidental Elevated glucose tolerance test Impaired glucose tolerance test documented in this encounter [facility]* Diagnosis Third trimester ([facility]) state, incidental 28 weeks gestation of ([facility]) HSV infection Herpes simplex without mention of complication size inconsistent with dates ([facility]) [facility] Diagnosis 30 weeks gestation of ([facility]) Third trimester ([facility]) state, incidental HSV infection Herpes simplex without mention of complication [facility] Diagnosis Third trimester ([facility]) state, incidental 32 weeks gestation of ([facility]) ZULMA (amniotic fluid index) borderline low Nonspecific abnormal finding in amniotic fluid [facility] Narrative - Reported* Type Description Date Medical History Left elbow dislocation 2011 [facility] Other Summary Purpose Family History No Family [...] and content) DATE CREATED AUTHOR 07/30/2021 [facility] DATE CREATED AUTHOR AUTHOR'S ORGANIZ ATION 05/24/2023 [facility] DATE CREATED AUTHOR AUTHOR'S ORGANIZ ATION 02/20/2024 [facility] DATE CREATED AUTHOR AUTHOR'S ORGANIZ ATION 04/23/2024 [facility] DATE CREATED AUTHOR AUTHOR'S ORGANIZ ATION 01/03/2025 [facility] EPIC REASON FOR VISIT (unrecogniz ed section and content) Reason Comments Gynecologic Exam Reason Comments Follow-up Reason Comments Initial Visit Nurse Visit Reason Comments Amenorrhea Reason Comments Routine Visit Care Teams (unrecognized sec tion and content) Team Status: Inactive Member Role Status Dates Lisandro Buitrago DO Attending Provider Active Diabetes Territory Manager Relationship Specialty Start Date End Date Unallocated, Jordy Horn MD [address] [place] [id number] PCP - General Family Medicine 06/23/23 Diabetes Territory Manager Relationship Specialty Start Date End Date Unallocated, Jordy Horn MD 06 [place] [id number] PCP - General Family Medicine 06/23/23 Diabetes Territory Manager Relationship Specialty Start Date End Date Unallocated, Jordy Horn MD [address] [place], [place] [address] [address] PCP - General Family Medicine 06/23/23 Diabetes Territory Manager Relationship Specialty Start Date End Date Unallocated, Jordy Horn MD [address] [place] [id number] PCP - General Family Medicine 06/23/23 Diabetes Territory Manager Relationship Specialty Start Date End Date Unallocated, Jordy Horn MD [address] [place] [id number] PCP - [facility] 06/23/23 Diabetes Territory Manager Relationship Specialty Start Date End Date Unallocated, Jordy Horn MD [facility] [address] [place] [address] PCP - [facility] 06/23/23 Diabetes Territory Manager Relationship Specialty Start Date End Date Unallocated, Jordy Horn MD [facility] [place] [address] PCP - [facility] 06/23/23 Diabetes Territory Manager Relationship Specialty Start Date End Date Unallocated, Jordy Horn MD [facility] [address] [place] [address] PCP [facility] 06/23/23 Diabetes Territory Manager Relationship Specialty Start Date End Date Unallocated, Jordy Horn MD [facility] [address] [place] [address] PCP - [facility] 06/23/23 Diabetes Territory Manager Relationship Specialty Start Date End Date Unallocated, Jordy Horn MD [facility] [address] [address] PCP - [facility] 06/23/23 Diabetes Territory Manager Relationship Specialty Start Date End Date Unallocated, Jordy Horn MD [facility] [address] [address] [facility] 06/23/23 Goals (unrecognized section and content) Goals [...] BE BASED ON THE PRIMARY CLINICAL RECORDS. [facility]. provides no warranty or guarantee of the accuracy or completeness of information in this document.
--- OUTSIDE RECORDS SUMMARY | 2025-01-04 07:01 | XMS_ITS | Encounter Summary ---
Author Organization [facility] Address [address] [place] [address] Care Team Providers Care Credit Negotiator Name Role Phone Unallocated, Noms Provider Primary Care Provi [facility] Encounter Details Date Type Department Care Team (Latest Contact Info) Description 01/02/2025 Travel Social History Tobacco Use Types Packs/Day [...] Department Care Team ( Contact Info) Description 01/16/2025 8:50 AM EDT Routine TORREY MONTANO [address] [place] [address] [place] [address] Nadine Gurrola PA [address] [place] [address] [place] [address] documented as of this encounter Goals Goal Patient Goal Type Associated Problems Recent Progress Patient-Stated? Author Reminders Care Plan OB Reminders No Jennifer Ayala RN documented as of this encounter Visit Diagnoses Not on filedocumented in this encounter Additional Health Concerns Active Problems Noted Date Diagnosed Date OB Reminders 07/11/2024 documented as of this encounter Care Teams Credit Negotiator Relationship Specialty Start Date End Date Unallocated, Noms Provider, [address] [place] [address] PCP - General Family Medicine 06/23/23 documented as of this encounter
--- OUTSIDE RECORDS SUMMARY | 2025-01-04 07:01 | XMS_ITS | Encounter Summary ---
Author Organization [facility] Address [address] [place] [address] Care Team Providers Care Cmm Operator Name Role Phone Unallocated, Noms Provider Primary Care [facility] Encounter Details Date Type Department Care Team (Late st Contact Info) Description 09/12/2024 Abstract TORREY Peng OBG[facility] [address] [place] [address] José Lozano DO [address] [facility] [place] [address] Social History Tobacco Use Types Packs/Day Years [...] AM EDT Routine NOMRitchie Peng OBGYN [address] [place] [address] Nadine Gurrola PA [address] [facility] [place] [address] documented as of this encounter Goals Goal Patient Goal Type Associated Problems Recent Progress Patient-Stated? Author Reminders Care Plan OB Reminders No Jennifer Ayala RN documented as of this encounter Visit Diagnoses Not on filedocumented in this encounter Additional Health Concerns Active Problems Noted Date Diagnosed Date OB Reminders 07/11/2024 documented as of this encounter Care Teams Cmm Operator Relationship Specialty Start Date End Date Unallocated, Noms Justina, [address] [place] [address] PCP - General Family Medicine 06/23/23 documented as of this encounter
--- NOTE | 2025-01-04 07:05 | US_ITS ---
[facility] [place] [id number] Patient Name: ALONDRA BEAVER MRN: [id number] date: 1995 Sex: F Assigned Patient Location: [facility] Current Patient Location: Accession/Order Number: [id number] Exam Date: 01/04/2025 07:10 Report Date: 01/04/2025 10:27 At the request of: ROCIO VINES DO Procedure: US OB BPP w non-stress BIOPHYSICAL PROFILE: CLINICAL INFORMATION: ZULMA BORDERLINE LOW O28.8 COMPARISON: None There is a single live intrauterine gestation in cephalic presentation. The reported gestational age is 32 weeks 3 days. The heart rate [id number] beats per minute. FINDINGS: TONE: 1 or more episodes of activity extension and flexion of extremity or opening and closing of the hand [Y] 2/2 GROSS BODY MOVEMENTS: 3 or more discrete body or limb movements [Y] 2/2 BREATHING MOVEMENTS: 1 or more episodes of breathing lasting at least 30 seconds [Y] 0/2 ZULMA: A single deepest vertical pocket of amniotic fluid greater than 2 cm [Y] 2/2 ZULMA: 13.4 cm Total score: 6/8 US/US OB BPP w non-stress IMPRESSION: FAILED BIOPHYSICAL PROFILE Impression dictated by: Zita Lu M.D. 01/04/2025 10:27 AM Dictation Location: [place] [address] Electronically authenticated by: [id number] Y Date: 01/04/2025 10:27
[2025-01-04 07:57] VITALS: BP 121/69; PULSE 80
== END 2025-01-04 08:38 | disposition home or self-care (01) ==
LOC: US 06:58 → FBC 07:03
PROVIDERS: PCP Family Medicine; Visit Provider Obstetrics & Gynecology
DX: O28.8 Other abnormal findings on antenatal screening of mother (principal); Z3A.32 32 weeks gestation of pregnancy
CPT/HCPCS: 76818

== ENCOUNTER 2025-01-08 11:56 | Outpatient (OUT) | payer OTHER, SELFPAY ==
--- OUTSIDE RECORDS SUMMARY | 2025-01-02 08:30 | XMS_ITS | Encounter Summary ---
Author Organization [facility] Address [address] [place] [address] Care Team Providers Care Coal Picker Name Role Phone Unallocated, [facility] Reason for Visit * Reason Comments Routine Visit Encounter Details Date Type Department Care Team (Late st Contact Info) Description 01/02/2025 8:30 AM EDT Routine [facility] [address] [phone] José Lozano DO [address] [place] [address] Third trimester ([facility]); 32 weeks gestation of ([facility]); ZULMA (amniotic fluid index) borderline low Social History Tobacco Use Types Packs/Day Years [...] Reading Time Taken Comments Blood Pressure 120/76 01/02/2025 8:26 AM EDT Pulse - - Temperature - - Respiratory Rate - - Oxygen Saturation - - Inhaled Oxygen Concentration - - Weight 74.2 kg (163 lb 8 oz) 01/02/2025 8:26 AM EDT Height - - Body Mass Index 28.96 08/10/2024 2:55 PM EDT documented in this encounter Progress Notes * Zita Borrego LPN - 01/02/2025 8:30 AM EDT Reason for Appointment: Patient ID: Angelique Carlos is a 29 y.o. female who presents for Routine Visit Patient presents today for Return OB appointment. MEDICATIONS Current Outpatient Medications Medication Instructions Vit-Fe Fumarate-FA ( PO) Take by mouth ALLERGIES No Known Allergies PROBLEMS Active Ambulatory Problems Diagnosis Date Noted No Active Ambulatory Problems Resolved Ambulatory Problems Diagnosis Date Noted No Resolved Ambulatory Problems Past Medical History: Diagnosis Date HPV (human papilloma virus) infection Vaccine for VZV (varicella-zoster virus) HISTORY PAST MEDICAL HISTORY SOCIAL HISTORY Past Medical History: Diagnosis Date HPV (human [...] ovary syndrome Sister Breast cancer Maternal Grandmother Maricaremn Swiney Hypothyroidism Maternal Grandfather Kwan Swiney Thyroid [...] nursing note reviewed. Exam conducted with a 8th grade teacher present. Vitals: Estimated body mass index is 28.96 kg/m?? as calculated from the following: Height as of 08/10/24: 5' 3 . Weight as of this encounter: 163 lb 8 oz. BP: 120/76 Patient's last menstrual period was 05/09/2024 (exact date). ASSESSMENT & PLAN ICD-10-CM 1. Third trimester ([facility]) Z34.93 POCT urinalysis dipstick manually resulted 2. 32 weeks gestation of ([facility]) Z3A.32 Return OB: Patient presents today for a routine obstetrics appointment. Patient is currently 32w1d . Patient states she is doing well but has complaints of being tired due to current . Patient has verbalizes frequent movement. labor precautions was discussed/given and patient was instructed to perform kick counts three times a day. Pt to do partners. Orders Placed This Encounter Procedures POCT urinalysis dipstick manually resulted Follow Up: Patient is to return to office in 2 week for routine OB appointment. Documented by Zita Borrego LPN on behalf of: José Lozano DO documented in this encounter Plan of Treatment Upcoming Encounters Date Type Department Care Team (Late st Contact Info) Description 01/15/2025 8:50 AM EDT Routine [facility] [address] [phone] Nadine Gurrola PA [address] [place] [address] Scheduled Orders Name Type Priority Associated Diagnoses Orde r Schedule US biophysical profile w non stress test Imaging Routine ZULMA (amniotic fluid index) borderline low Expected: 01/02/2025 (Approximate), Expires: 07/05/2025 documented as of this encounter Goals Goal Patient Goal Type Associated Problems Recent Progress Patient-Stated? Author Reminders Care Plan OB Reminders No Jennifer Ayala RN documented as of this encounter Procedures Procedure Name Priority Date/Time Associated Diagnosis Comments POCT URINALYSIS DIPSTICK Routine 01/02/2025 8:29 AM EDT Third trimester ([facility]) documented in this encounter Results * (ABNORMAL) POCT urinalysis dipstick manually resulted (01/02/2025 8:29 AM EDT) Color, UA Yellow Clarity, UA [...] 0.2 0.2 - 12 mg/dL Leukocytes, UA Positive Negative - 500+++ Mahsa/mcL Comment:Trace Nitrite, UA Negative Negative - Positive Urine 01/02/2025 8:29 AM EDT José Blake DO POINT OF CARE TEST ENTER/EDIT OR DERABLES Final Result documented in this encounter Visit Diagnoses Diagnosis Third trimester ([facility]) state, incidental 32 weeks gestation of ([facility]) ZULMA (amniotic fluid index) borderline low Nonspecific abnormal finding in amniotic fluid documented in this encounter Additional Health Concerns Active Problems Noted Date Diagnosed Date OB Reminders 07/11/2024 documented as of this encounter Care Teams Coal Picker Relationship Specialty Start Date End Date Unallocated, Noms Provider, [address] [place] [address] PCP - General Family Medicine 06/23/23 documented as of this encounter
--- NOTE | 2025-01-08 11:59 | US_ITS ---
[address] [address] Patient Name: ALONDRA BEAVER MRN: [id number] date: 1995 Sex: F Assigned Patient Location: Current Patient Location: [facility] Accession/Order Number: [id number] Exam Date: 01/08/2025 12:03 Report Date: 01/08/2025 12:44 At the request of: ROCIO VINES DO Procedure: US OB BPP w non-stress Biophysical profile. Reason for exam: Abnormal BPP. COMPARISON: 01/04/2025 TECHNIQUE: Transabdominal imaging of the gravid uterus was obtained. FINDINGS: The lead oracle developer reports a BPP of 8 out of 8. ZULMA is normal at 14.8 cm. heart rate 135 bpm. US/US OB BPP w non-stress IMPRESSION: BPP 8 out of 8. Impression dictated by: Terry Puentes Jr., D.O. 01/08/2025 12:44 PM Dictation Location: [facility] Electronically authenticated by: [id number] Y Date: 01/08/2025 12:44
--- OUTSIDE RECORDS SUMMARY | 2025-01-08 11:59 | XMS_ITS | Encounter Summary ---
Author Organization [facility] Address [address] [place] [address] Care Team Providers Care Windsurfing Instructor Name Role Phone Unallocated, Noms Provider Primary Care Provi [facility] Encounter Details Date Type Department Care Team (Late st Contact Info) Description 11/22/2024 Results Follow-Up TORREY MILLSGYDayne [address] [place] [address] Dea Olivares LPN [address] [place] [address] ALL CBC WITH AUTO DIFF, [...] Info) Description 01/15/2025 8:50 AM EDT Routine TORREY Peng OBGYN [address] [facility] [place] [address] Nadine Gurrola PA [address] [place] [address] documented as of this encounter Goals Goal Patient Goal Type Associated Problems Recent Progress Patient-Stated? Author Reminders Care Plan OB Reminders Jennifer Bond RN documented as of this encounter Visit Diagnoses Not on filedocumented in this encounter Additional Health Concerns Active Problems Noted Date Diagnosed Date OB Reminders 07/11/2024 documented as of this encounter Care Teams Windsurfing Instructor Relationship Specialty Start Date End Date Unallocated, Torrey Horn MD [address] [place] [address] PCP - General Family Medicine 06/23/23 documented as of this encounter
--- OUTSIDE RECORDS SUMMARY | 2025-01-08 11:59 | XMS_ITS | Encounter Summary ---
Author Organization [facility] Address [address] [place] [address] Care Team Providers Care Justice Of The Peace Name Role Phone Unallocated, Noms Provider Primary Care Provi [facility] Encounter Details Date Type Department Care [...] Department Care Team ( Contact Info) Description 01/15/2025 8:50 AM EDT Routine TORREY MONTANO [address] [place] [address] [place] [address] Nadine Gurrola PA [address] [place] [address] [place] [address] documented as of this encounter Goals Goal Patient Goal Type Associated Problems Recent Progress Patient-Stated? Author Reminders Care Plan OB Reminders No Jennifer Ayala RN documented as of this encounter Visit Diagnoses Not on filedocumented in this encounter Additional Health Concerns Active Problems Noted Date Diagnosed Date OB Reminders 07/11/2024 documented as of this encounter Care Teams Justice Of The Peace Relationship Specialty Start Date End Date Unallocated, Noms Provider, [address] [place] [address] PCP - General Family Medicine 06/23/23 documented as of this encounter
--- OUTSIDE RECORDS SUMMARY | 2025-01-08 11:59 | XMS_ITS | Encounter Summary ---
Author Organization [facility] Address [address] [place] [address] Care Team Providers Care Lodge Officer Name Role Phone Unallocated, Noms Provider [facility] Encounter Details Date Type Department Care Team (Late st Contact Info) Description 09/12/2024 Abstract TORREY Peng OBGYN [address] [facility] [place] [address] José Lozano DO [address] [place] [address] Social History Tobacco Use Types Packs/Day Years [...] Info) Description 01/15/2025 8:50 AM EDT Routine NOMRitchie Peng OBGYN [address] [facility] [place] [address] Nadine Gurrola PA [address] [place] [address] documented as of this encounter Goals Goal Patient Goal Type Associated Problems Recent Progress Patient-Stated? Author Reminders Care Plan OB Reminders No Jennifer Ayala RN documented as of this encounter Visit Diagnoses Not on filedocumented in this encounter Additional Health Concerns Active Problems Noted Date Diagnosed Date OB Reminders 07/11/2024 documented as of this encounter Care Teams Lodge Officer Relationship Specialty Start Date End Date Unallocated, Noms Justina, [address] [place] [address] PCP - General Family Medicine 06/23/23 documented as of this encounter
--- OUTSIDE RECORDS SUMMARY | 2025-01-08 11:59 | XMS_ITS | Clinical Summary ---
Author Organization [facility] Address [address] [place] [address] Care Team Providers Care Principal Programmer Name Role Phone Unallocated, Noms Provider Primary Care Provi ulysses Allergies No known active allergies Medications Vit-Fe Fumarate-FA ( PO) Take by mouth Active Encounters Date Type Department Care Team Description 01/04/2025 Clinisync Result Encounter [facility] External Department Unsolicited Rocio Lozano DO 01/02/2025 8:30 [place] [address] Rcoio Lozano, DO Third trimester ([facility]); 32 weeks gestation of ([facility]); ZULMA (amniotic fluid index) borderline low 01/02/2025 [place] [address] Rocio Lozano DO 01/02/2025 Travel 12/19/2024 8:50 [place] [address] Nadine Gurrola PA 30 weeks gestation of ([facility]); Third trimester ([facility]); HSV infection 12/19/2024 8:00 AM EDT [place] [address] size inconsistent with dates ([facility]) 12/19/2024 [place] [address] Dea Olivares LPN 12/05/2024 9:00 [place] [address] Rocio Lozano, Third trimester ([facility]); 28 weeks gestation of ([facility]); HSV infection; size inconsistent with dates ([facility]) 12/05/2024 [place] [address] Rocio Lozano, 12/04/2024 Travel 11/28/2024 Clinisync Result Encounter NOMS External Department Unsolicited Nadine Gurrola PA 11/22/2024 8:50 [place] [address] Nadine Gurrola PA 26 weeks gestation of ([facility]); Second trimester ([facility]); Elevated glucose tolerance test 11/22/2024 [place] [phone] Dea Olivares LPN ALL CBC WITH AUTO DIFF, GLUCOSE 1 HOUR 11/22/2024 Clinisync Result Encounter NOMS External Department Unsolicited Rocio Lozano, 11/17/2024 Travel 10/26/2024 11:50 [place] [address] Rocio Lozano, Second trimester ([facility]); 22 weeks gestation of ([facility]); Diabetes mellitus screening 10/26/2024 11:00 AM EDT Ancillary Procedure [place] [address] from Last 3 Months Family History [...] Trudylon Walp Lung cancer Paternal Grandmother Gilda Walp Polycystic ovary syndrome Sister Relation Name Status Comments Father Alive Maternal Grandfather Kwan Swiney Maternal Grandmother Maricarmen Swiney Mother Esmer Walp Alive Paternal Grandfather Skyler Walp Paternal Grandmother Gilda Walp Sister Social History [...] AM EDT Routine NOMS [facility] OBGYN [address] [place] [address] Nadine Gurrola PA [address] [facility] [place] [address] Health Maintenance Due Date Last Done Comments Influenza Vaccine (#1) 2025 Goals Goal Patient Goal Type Associated Problems Recent Progress Patient-Stated? Author Reminders Care Plan OB Reminders No Jennifer Ayala RN Procedures Procedure Name Priority Date/Time Associated Diagnosis Comments US OB BPP W NON-STRESS 01/04/2025 10:27 AM EDT POCT URINALYSIS DIPSTICK Routine 01/02/2025 8:29 AM EDT Third trimester ([facility]) POCT URINALYSIS DIPSTICK Routine 12/19/2024 9:06 AM EDT 30 weeks gestation of ([facility]) Third trimester ([facility]) US OB FOLLOW UP TRANSABDOMINAL APPROACH Routine 12/19/2024 8:25 AM EDT size inconsistent with dates ([facility]) GLUCOSE TOLERANCE 3 HOUR Routine 11/28/2024 6:41 AM EDT POCT URINALYSIS DIPSTICK Routine 11/22/2024 8:57 AM EDT 26 weeks gestation of ([facility]) Second trimester ([facility]) GLUCOSE 1 HOUR Routine 11/22/2024 7:47 AM EDT ALL CBC WITH AUTO DIFF Routine 7:47 AM EDT POCT URINALYSIS DIPSTICK Routine 10/26/2024 12:06 PM EDT Second trimester ([facility]) US OB 14+ WEEKS ANATOMY SCAN Routine 10/26/2024 11:56 AM EDT Screening, , for anatomic survey ([facility]) from Last 3 Months Results * US OB BPP W NON-STRESS (01/04/2025 10:27 AM EDT) Anatomical Region Laterality Modality Other 01/04/2025 10:2 7 AM EDT Narrative 01/04/2025 10:30 [place] [address] Ultrasound Report Signed Patient: ALONDRA BEAVER MR#: [id number] : 1995 Acct:[id number] Age/Sex: 29 / F ADM Date: 01/04/25 Loc: US Attending Dr: Rocio Lozano D.O. Ordering Physician: Rocio Lozano D.O. Date of Service: 01/04/25 Procedure(s): US OB BPP w non-stress Accession Number(s): [id number] cc: Rocio Lozano D.O.; Zita Alanis M.D. [facility] [place] [id number] Patient Name: ALONDRA BEAVER MRN: [id number] date: 1995 Sex: F Assigned Patient Location: [facility] Current Patient Location: Accession/Order Number: [id number] Exam Date: 01/04/2025 07:10 Report Date: 01/04/2025 10:27 At the request of: ROCIO LOZANO DO Procedure: US OB BPP w non-stress BIOPHYSICAL PROFILE: CLINICAL INFORMATION: ZULMA BORDERLINE LOW O28.8 COMPARISON: None There is a single live intrauterine gestation in cephalic presentation. The reported gestational age is 32 weeks 3 days. The heart rate [id number] beats per minute. FINDINGS: TONE: 1 or more episodes of activity extension and flexion of extremity or opening and closing of the hand [Y] 2/2 GROSS BODY MOVEMENTS: 3 or more discrete body or limb movements [Y] 2/2 BREATHING MOVEMENTS: 1 or more episodes of breathing lasting at least 30 seconds [Y] 0/2 ZULMA: A single deepest vertical pocket of amniotic fluid greater than 2 cm [Y] 2/2 ZULMA: 13.4 cm Total score: 10/15 US/US OB BPP w non-stress IMPRESSION: FAILED BIOPHYSICAL PROFILE Impression dictated by: Zita Lu M.D. 01/04/2025 10:27 AM Dictation [facility] Electronically authenticated by: [id number] Y Date: 01/04/2025 10:27 Dictated By: Zita Lu M.D. Signed By: 01/04/25 1030 DD/ 1027 TD/TT: Laser Systems Engineer: Procedure Note Radiology, Radiologist, MD - 01/04/2025 [place] [address] Ultrasound Report Signed Patient: ALONDRA BEAVER NMR#: [id number] : 1995Acct:[id number] Age/Sex: 29 / FADM Date: 01/04/25 Loc: US Attending Dr: Rocio Lozano D.O. Ordering Physician: Rocio Lozano D.O. Date of Service: 01/04/25 Procedure(s): US OB BPP w non-stress Accession Number(s): [id number] cc: Rocio Lozano D.O.; Zita Alanis M.D. [facility] [place] [id number] Patient Name: ALONDRA BEAVER MRN: [id number] date: 1995 Sex: F Assigned Patient Location: [facility] Current Patient Location: Accession/Order Number: [id number] Exam Date: 01/04/2025 07:10 Report Date: 01/04/2025 10:27 At the request of: ROCIO LOZANO DO Procedure: US OB BPP w non-stress BIOPHYSICAL PROFILE: CLINICAL INFORMATION: ZULMA BORDERLINE LOW O28.8 COMPARISON: None There is a single live intrauterine gestation in cephalic presentation.The reported gestational age is 32 weeks 3 days. The heart [id number] beats per minute. FINDINGS: TONE: 1 or more episodes of activity extension and flexion of extremity or opening and closing of the hand [Y] 2/2 GROSS BODY MOVEMENTS: 3 or more discrete body or limb movements [Y] 2/2 BREATHING MOVEMENTS: 1 or more episodes of breathing lastingat least 30 seconds [Y] 0/2 ZULMA: A single deepest vertical pocket of amniotic fluid greater than 2 cm [Y] 2/2 ZULMA: 13.4 cm Total score: 6/8 US/US OB BPP w non-stress IMPRESSION: FAILED BIOPHYSICAL PROFILE Impression dictated by: Zita Lu M.D. 01/04/2025 10:27 AM Dictation Location: [employer] Electronically authenticated by: [id number] Y Date: 0:27 Dictated By: Zita Lu M.D. Signed By:01/04/25 1030 DD/ 1027 TD/TT: Laser Systems Engineer: Rocio Lozano DO [facility] Final Result * (ABNORMAL) POCT urinalysis dipstick manually resulted [...] Positive Urine 01/02/2025 8:29 AM EDT us Rocio Blake DO POINT OF CARE TEST ENTER/EDIT [...] ounces). Procedure Note Terry Rodriguez MD - 08/12/2025 FINDINGS: Comparison made with prior examination of [...] BY: ELECTRONICALLY SIGNED BY: Terry Rodriguez MD us Rocio Lozano DO [facility] OB US PROCEDURES Final Resul t * GLUCOSE TOLERANCE 3 HOUR (11/28/2024 6:41 AM EDT) GLUCOSE TOLERANCE 3 HOUR mg/dL [facility] Comment: GLU FAST 93 (<95) Col: 11/28/24 0641 GLU 1HR 149 (<180) Col: 11/28/24 0743 GLU 2HR 118 (<155) Col: 11/28/24 0843 GLU 3HR 81 (<140) Col: 11/28/24 0942 11/28/2024 6:41 AM EDT 11/28/2024 6:49 AM EDT Narrative [facility] - 11/28/2024 10:14 AM EDT us Nadine DE JESUS LAB BLOOD ORDERABLES Final Resul t [facility] TB * (ABNORMAL) GLUCOSE 1 HOUR (11/22/2024 7:47 AM EDT) Pathologist [facility] GLUCOSE 1 HOUR 149(H) <130 mg/dL [facility] 11/22/2024 7:47 AM EDT 11/22/2024 7:50 AM EDT Narrative [facility] - 11/22/2024 8:41 AM EDT us Rocio Lozano DO LAB BLOOD ORDERABLES Final Resul t [facility] TB * (ABNORMAL) ALL CBC WITH AUTO DIFF (11/22/2024 7:47 AM EDT) [facility] TB WBC 10.9 4.0 - 11.0 10 3/uL [facility] TB[facility] RBC 3.85(L) 4.20 - 5.40 10 6/uL [facility] TBH HGB 11.9(L) 12.0 - 16.0 g/dL TB TB HCT 35.6(L) 36.0 - 48.0 % [facility] MCV 92.5 81.0 - 99.0 fL TBH TBH MCH 30.9 26.7 - 34.0 pg TBH TBH MCHC 33.4 29.9 - 35.2 g/dL TB TB RDW 13.0 11.0 - 15.0 % [facility] [...] [facility] - 11/22/2024 8:25 AM EDT us Rocio Blake DO [facility] Final Result [facility] * US OB 14+ weeks anatomy scan [...] II, MD, PHD at 27-Oct-2024 06:14:52 AM [facility] Procedure Note Leonidas Nicole MD - [...] LEONIDAS NICOLE II, MD, PHD 06:14:52 AM [facility] us Nadine DE JESUS IMG OB US PROCEDURES Final Resul t from Last 3 Months Additional Health Concerns Active Problems Noted Date Diagnosed Date OB Reminders 07/11/2024 Insurance [employer] Care Teams Principal Programmer Relationship Specialty Start Date End Date Unallocated, Noms Provider, [address] [place] [address] PCP - General Family Medicine 06/23/23
--- OUTSIDE RECORDS SUMMARY | 2025-01-08 11:59 | XMS_ITS | Encounter Summary ---
Author Organization [facility] Address [address] [place] [address] Care Team Providers Care Thermit Welding Machine Operator Name Role Phone Unallocated, Noms Provider Primary Care Provi ulysses Encounter Details Date Type Department Care Team (Late st Contact Info) Description 01/04/2025 Clinisync Result Encounter [facility] External Department Unsolicited Rocio Lozano, DO [address] [place] [address] Social History Tobacco Use Types Packs/Day Years [...] AM EDT Routine [facility] [address] [place] [address] Nadine Gurrola PA [address] [place] [address] documented as of this encounter Goals Goal Patient Goal Type Associated Problems Recent Progress Patient-Stated? Author Reminders Care Plan OB Reminders No Jennifer Ayala RN documented as of this encounter Procedures Procedure Name Priority Date/Time Associated Diagnosis Comments US OB BPP W NON-STRESS 01/04/2025 10:27 AM EDT documented in this encounter Results * US OB BPP W NON-STRESS (01/04/2025 10:27 AM EDT) Anatomical Region Laterality Modality Other 01/04/2025 10:2 7 AM EDT Narrative 01/04/2025 10:30 AM EDT The [address] [address] Ultrasound Report Signed Patient: ALONDRA BEAVER MR#: [id number] : 1995 Acct:[id number] Age/Sex: 29 / F ADM Date: 01/04/25 Loc: US Attending Dr: Rocio Lozano D.O. Ordering Physician: Rocio Lozano D.O. Date of Service: 01/04/25 Procedure(s): US OB BPP w non-stress Accession Number(s): [id number] cc: Rocio Lozano D.O.; Zita Alanis M.D. The [address] [address] Patient Name: ALONDRA BEAVER MRN: [id number] date: 1995 Sex: F Assigned Patient Location: [facility] Current Patient Location: Accession/Order Number: [id number] Exam Date: 01/04/2025 07:10 Report Date: 01/04/2025 10:27 At the request of: ROCIO LOZANO DO Procedure: US OB BPP w non-stress BIOPHYSICAL PROFILE: CLINICAL INFORMATION: ZULMA BORDERLINE LOW O28.8 COMPARISON: None There is a single live intrauterine gestation in cephalic presentation. The reported gestational age is 32 weeks 3 days. The heart rate [id number] beats per minute. FINDINGS: TONE: 1 or [...] FAILED BIOPHYSICAL PROFILE Impression dictated by: Zita uL M.D. 01/04/2025 10:27 AM Dictation Location: [facility] Electronically authenticated by: [id number] Y Date: 01/04/2025 10:27 Dictated By: Zita Lu M.D. Signed By: 01/04/25 1030 DD/ 1027 TD/TT: Monotype Keyboard Operator: Procedure Note Radiology, Radiologist, - 01/04/2025 [place] [address] Ultrasound Report Signed Patient: ALONDRA BEAVER [facility]#: [id number] : 1995Acct:[id number] Age/Sex: 29 / FADM Date: 01/04/25 Loc: US Attending Dr: Rocio Lozano D.O. Ordering Physician: Rocio Lozano D.O. Date of Service: 01/04/25 Procedure(s): US OB BPP w non-stress Accession Number(s): [id number] cc: Rocio Lozano D.O.; Zita Alanis M.D. The [place] [address] Patient Name: ALONDRA BEAVER MRN: [id number] date: 1995 Sex: F Assigned Patient Location: [facility] Current Patient Location: Accession/Order Number: [id number] Exam Date: 01/04/2025 07:10 Report Date: 01/04/2025 10:27 At the request of: ROCIO LOZANO DO Procedure: US OB BPP w non-stress BIOPHYSICAL PROFILE: CLINICAL INFORMATION: ZULMA BORDERLINE LOW O28.8 COMPARISON: None There is a single live intrauterine gestation in cephalic presentation.The reported gestational age is 32 weeks 3 days. The heart beats per minute. FINDINGS: TONE: 1 or [...] Lu M.D. 01/04/2025 10:27 AM Dictation Location: [place] [address] Electronically authenticated by: [id number] Y Date: 510:27 Dictated By: Zita Lu M.D. Signed By:01/04/25 1030 DD/ 1027 TD/TT: Monotype Keyboard Operator: us Rocio Lozano DO [facility] Final Result documented in this encounter Visit Diagnoses Not on filedocumented in this encounter Additional Health Concerns Active Problems Noted Date Diagnosed Date OB Reminders 07/11/2024 documented as of this encounter Care Teams Thermit Welding Machine Operator Relationship Specialty Start Date End Date Unallocated, Noms Provider, [place] [address] [address] PCP - General Family Medicine 06/23/23 documented as of this encounter
--- OUTSIDE RECORDS SUMMARY | 2025-01-08 11:59 | XMS_ITS | Encounter Summary ---
Author Organization [facility] Address [address] [place] [address] Care Team Providers Care Design Inserter Name Role Phone Unallocated, Noms Provider [facility] Encounter Details Date Type Department Care Team (Late st Contact Info) Description 01/02/2025 Bamboo flowsheet [facility] [address] [address] José Lozano DO [address] Peng, [facility] Social History Tobacco Use Types Packs/Day [...] AM EDT Routine [facility] [address] [address] Nadine Gurrola PA [address] [place] [address] documented as of this encounter Goals Goal Patient Goal Type Associated Problems Recent Progress Patient-Stated? Author Reminders Care Plan OB Reminders Jennifer Bond RN documented as of this encounter Visit Diagnoses Not on filedocumented in this encounter Additional Health Concerns Active Problems Noted Date Diagnosed Date OB Reminders 07/11/2024 documented as of this encounter Care Teams Design Inserter Relationship Specialty Start Date End Date Unallocated, Noms MD Justina [address] [place] [address] PCP - General Family Medicine 06/23/23 documented as of this encounter
--- OUTSIDE RECORDS SUMMARY | 2025-01-08 12:00 | XMS_ITS | CCD ---
Author Organization [facility] Care Team Providers Care Insurance Sales Assistant Name Role Phone DR JANES GARCIA Admitting Unavailable JOSE, DR JANES Escobar Attending Unavailable REQUEST, NONE LISTED Primary Care Unavaila verna GARCIA, DR JANES Escobar Consulting Unavailable Lisandro Buitrago Unavailable DO Lisandro Buitrago Attending Provider [phone] Tyrell Stiles Unavailable Lisandro Buitrago Attending Unavailable [...] 08/21/2024 08/29/2024 Discontinued 21 day ethinyl estradiol 0.524097 mg/hr / etonogestrel 0.005 mg/hr vaginal system [...] Test Name Value Interpretation Reference Range Facility US OB BPP W NON-STRESS on 01-04-[address] [address] Ultrasound Report Signed Patient: ALONDRA BEAVER MR#: [id number] : 1995 Acct:[id number] Age/Sex: 29 / F ADM Date: 01/04/25 Loc: US Attending Dr: Rocio Lozano D.O. Ordering Physician: Rocio Lozano D.O. Date of Service: 01/04/25 Procedure(s): US OB BPP w non-stress Accession Number(s): [id number] cc: Rocio Lozano D.O.; Zita Alanis M.D. [place] [address] Patient Name: ALONDRA BEAVER MRN: [id number] date: 1995 Sex: F Assigned Patient Location: [facility] Current Patient Location: Accession/Order Number: [id number] Exam Date: 01/04/2025 07:10 Report Date: 01/04/2025 10:27 At the request of: ROCIO LOZANO DO Procedure: US OB BPP w non-stress BIOPHYSICAL PROFILE: CLINICAL INFORMATION: ZULMA BORDERLINE LOW O28.8 COMPARISON: None There is a single live intrauterine gestation in cephalic presentation. The reported gestational age is 32 weeks 3 days. The heart rate [id number] beats per minute. FINDINGS: TONE: 1 or [...] Lu M.D. 01/04/2025 10:27 AM Dictation Location: [place] [address] Electronically authenticated by: [id number] Y Date: 01/04/2025 10:27 Dictated By: Zita Lu M.D. Signed By: 01/04/25 1030 DD/ 1027 TD/TT: Metal Gauge Maker: [facility] Radiology, Radiologist, - 01/04/2025 [place] [address] Ultrasound Report Signed Patient: ALONDRA BEAVER MR#: [id number] : 1995 Acct:[id number] Age/Sex: 29 / F ADM Date: 01/04/25 Loc: US Attending Dr: Rocio Lozano D.O. Ordering Physician: Rocio Lozano D.O. Date of Service: 01/04/25 Procedure(s): US OB BPP w non-stress Accession Number(s): [id number] cc: Rocio Lozano D.O.; Zita Alanis M.D. The [place] [id number] Patient Name: ALONDRA BEAVER MRN: [facility]:[id number] date: 1995 Sex: F Assigned Patient Location: [facility] Current Patient Location: Accession/Order Number: [id number] Exam Date: 01/04/2025 07:10 Report Date: 01/04/2025 10:27 At the request of: ROCIO LOZANO DO Procedure: US OB BPP w non-stress BIOPHYSICAL PROFILE: CLINICAL INFORMATION: ZULMA BORDERLINE LOW O28.8 COMPARISON: None There is a single live intrauterine gestation in cephalic presentation. The reported gestational age is 32 weeks 3 days. The heart rate [id number] beats per minute. FINDINGS: TONE: 1 or [...] Lu M.D. 01/04/2025 10:27 AM Dictation Location: [place] Electronically authenticated by: [id number] Y Date: 01/04/2025 10:27 Dictated By: Zita Lu M.D. Signed By: 01/04/25 1030 DD/ 1027 TD/TT: Metal Gauge Maker: [facility] Radiology Study observation (narrative) [facility] US OB BPP W NON-STRESS Ordered By: Radiologist Radiology on 01-04-2025 [facility] Work Phone: Urinalysis macro (dipstick) panel (U)on 01-02-2025 Bilirubin, UA Negative Negative - 4(70) +++ mg/dL [facility] Blood, UA Negative Negative - 50 Mark/mcL [facility] Clarity, UA Clear [facility] Color, UA Yellow [facility] Glucose, UA Negative Negative - 2000(110) ++++ mg/dL [facility] Interpretation and review of laboratory results Abnormal [facility] Ketones, UA Negative Negative - 160(16) ++++ mg/dL [facility] Leukocytes, UA Positive Negative - 500+++ Mahsa/mcL [facility] Comment on above: Trace Nitrite, UA Negative Negative - Positive [facility] pH, UA 6.5 5 - 9 [facility] Protein, UA Negative Negative - 2000(20) ++++ mg/dL [facility] Spec Grav, UA 1.015 1 - 1.03 [facility] Urobilinogen, UA 0.2 0.2 - 12 mg/dL [facility] US OB FOLLOW UP TRANSABDOMIN AL APPROACHon [...] Negative Negative - 4(70) +++ mg/dL [facility] Blood, UA Negative Negative - 50 Mark/mcL [facility] Clarity, UA Clear [facility] Color, UA Yellow [facility] Glucose, UA Negative Negative - 2000(110) ++++ mg/dL [facility] Interpretation and review of laboratory results Abnormal [facility] Ketones, UA Negative Negative - 160(16) ++++ mg/dL [facility] Leukocytes, UA 3+ Negative - 500+++ Mahsa/mcL [facility] pH, UA 6 5 - 9 [facility] Protein, UA Negative Negative - 2000(20) ++++ mg/dL [facility] Spec Grav, UA 1.015 1 - 1.03 [facility] Urobilinogen, UA 0.2 0.2 - 12 mg/dL [facility] GLUCOSE TOLERANCE 3 HOURon 0 11-28-2024 GLUCOSE TOLERANCE 3 HOUR mg/dL [facility] Comment on above: GLU FAST 93 (<95) Co l: 11/28/24 0641 GLU 1HR 149 (<180) Col: 11/28/24 0743 GLU 2HR 118 (<155) Col: 11/28/24 0843 GLU 3HR 81 (<140) Col: 11/28/24 0942 [facility] ALL CBC WITH AUTO DIFFon BASOPHILS ABSOLUTE AUTO 0 [facility] Basophils/100 WBC (Bld) 0.4 % 0.2 - 2.0 % [facility] Eosinophils/100 WBC (Bld) 1.2 % 0.9 - 7.0 % [facility] Erythrocyte distribution width (RBC) [Ratio] 13 % 11.0 - 15.0 % [facility] Hematocrit (Bld) [Volume fraction] 35.6 % Low 36.0 - 48.0 % [facility] Hemoglobin (Bld) [Mass/Vol] 11.9 g/dL Low 12.0 - 16.0 g/dL [facility] IMMATURE GRANULOCYTES ABS AUTO 0.13 High [facility] Immature granulocytes/100 WBC (Bld) 1.2 % High 0.0 - 0.5 % [facility] Interpretation and review of laboratory results Abnormal [facility] LYMPHOCYTES ABSOLUTE AUTO 1.3 [facility] Lymphocytes/100 WBC (Bld) 11.6 % Low 20.5 - 60.0 % [facility] MCH (RBC) [Entitic mass] 30.9 pg 26.7 - 34.0 pg [facility] MCHC (RBC) [Mass/Vol] 33.4 g/dL 29.9 - 35.2 g/dL [facility] MCV (RBC) [Entitic vol] 92.5 fL 81.0 - 99.0 fL [facility] MONOCYTES ABSOLUTE AUTO 0.5 [facility] Monocytes/100 WBC (Bld) 4.9 % 1.7 - 12.0 % [facility] NEUTROPHILS ABSOLUTE AUTO 8.8 High [facility] Neutrophils/100 WBC (Bld) 80.7 % High 43.0 - 75.0 % [facility] Platelet mean volume (Bld) [Entitic vol] 10.5 fL 9.5 - 13.5 fL [facility] TBH EO # 0.1 [facility] TB PLT 198 [facility] RBC 3.85 Low [facility] TB WBC 10.9 [facility] Urinalysis macro (dipstick) panel (U)on 11-22-2024 Bilirubin, UA Negative Negative - 4(70) +++ mg/dL [facility] Blood, UA Negative Negative - 50 Mark/mcL [facility] Clarity, UA Clear [facility] Color, UA Yellow [facility] Glucose, UA Negative Negative - 1999(110) ++++ mg/dL [facility] Interpretation and review of laboratory results Abnormal [facility] Ketones, UA Negative Negative - 160(16) ++++ mg/dL [facility] Leukocytes, UA Moderate Negative - 500+++ Mahsa/mcL [facility] Nitrite, UA Negative Negative - Positive [facility] pH, UA 6 5 - 9 [facility] Protein, UA Negative Negative - 1999(20) ++++ mg/dL [facility] Spec Grav, UA 1.01 1 - 1.03 [facility] Urobilinogen, UA 0.2 0.2 - 12 mg/dL [facility] Urinalysis macro (dipstick) panel (U)on 10-26-2024 Bilirubin, UA Negative Negative - 4(70) +++ mg/dL [facility] Blood, UA Negative Negative - 50 Mark/mcL [facility] Clarity, UA Clear [facility] Color, UA Yellow [facility] Glucose, UA Negative Negative - 1999(110) ++++ mg/dL [facility] Interpretation and review of laboratory results Normal [facility] Ketones, UA Negative Negative - 160(16) ++++ mg/dL [facility] Leukocytes, UA Negative Negative - 500+++ Mahsa/mcL [facility] Nitrite, UA Negative Negative - Positive [facility] pH, UA 6.5 5 - 9 [facility] Protein, UA Negative Negative - 1999(20) ++++ mg/dL [facility] Spec Grav, UA 1.02 1 - 1.03 [facility] Urobilinogen, UA 0.2 0.2 - 12 mg/dL [facility] US OB 14+ WEEKS ANATOMY SCAN on [...] PHD at 27-Oct-2024 06:14:52 AM [facility] Normal Not Available Comment on above: Order Comment: US OB ANATOMY SINGLE W US OB CERVICAL LENGTH Estimated Date of Delivery: 02/26/25 Gestational Age as of 09/28/2024: 18w3d BOX TESTon 08-29-2024 BOX TEST SENT OUT [facility] [address] [employer] [facility] [address] 08-29-24 [facility] [employer] [facility] Urinalysis macro (dipstick) panel (U)on 08-29-2024 Bilirubin, UA Negative Negative - 4(70) +++ mg/dL [facility] Blood, UA Negative Negative - 50 Mark/mcL [facility] Clarity, UA Clear [facility] Color, UA Yellow [facility] Glucose, UA Negative Negative - 1999(110) ++++ mg/dL [facility] Interpretation and review of laboratory results Normal [facility] Ketones, UA Negative Negative - 160(16) ++++ mg/dL [facility] Leukocytes, UA Negative Negative - 500+++ Mahsa/mcL [facility] Nitrite, UA Negative Negative - Positive [facility] pH, UA 6 5 - 9 [facility] Protein, UA Negative Negative - 2000(20) ++++ mg/dL [facility] Spec Grav, UA 1.02 1 - 1.03 [facility] Urobilinogen, UA 0.2 0.2 - 12 mg/dL [facility] HCG ( test) Ql (U)o n 08-10-2024 Interpretation and review of laboratory results Abnormal [facility] Preg Test, Ur Positive Negative [facility] US OB < 14 WEEKS EARLYon US [...] II, MD, PHD at 11-Aug-2024 08:40:37 AM [facility] Normal Not Available Comment on above: Order Comment: US OB Patient's last menstrual period was 05/09/2024 (exact date). Urinalysis macro (dipstick) panel (U)on 08-10-2024 Bilirubin, UA Negative Negative - 4(70) +++ mg/dL [facility] Blood, UA Negative Negative - 50 Mark/mcL [facility] Clarity, UA Clear [facility] Color, UA Yellow [facility] Glucose, UA Negative Negative - 1999(110) ++++ mg/dL [facility] Interpretation and review of laboratory results Abnormal [facility] Ketones, UA Positive Negative - 160(16) ++++ mg/dL [facility] Comment on above: 40 Leukocytes, UA Negative Negative - 500+++ Mahsa/mcL [facility] Nitrite, UA Negative Negative - Positive [facility] pH, UA 5.5 5 - 9 [facility] Protein, UA Negative Negative - 1999(20) ++++ mg/dL [facility] Spec Grav, UA 1.02 1 - 1.03 [facility] Urobilinogen, UA 0.2 0.2 - 12 mg/dL [facility] Outside Recordson 04-20-2024 Outside Records [id number] 763[facility] 03-31-2024 Outside Records [id number] 6#1.00[facility] Consent Formson 02-18-2024 Consent Forms [id number] 3D#1.00[facility] Cytology Cervical or vaginal smear or scraping studyon 02-08-2024 [facility] HCG ( test) Ql (U)o n 02-08-2024 Interpretation and review of laboratory results Normal [facility] Preg Test, Ur Negative [facility] CMP Standardon 02-03-2024 eGFR Non AA >60 Invalid Interpretation Code [facility] Comment on above: Performed By: #### 1 [id number], [id number], 3773989, 5383209, 7718770, 2439531, 1532156 #### [facility] (DEFAULT) [address] [place] [address]18 eGFR AA >60 Invalid Interpretation Code [facility] Comment on above: Performed By: #### 1 [id number], [id number], 6608711, 9912018, 2286265, 7047535, 0999862 #### [facility] (DEFAULT) [address] [place] [address] 13798 Albumin [Mass/Vol] 4.4 g/dL Normal 3.5-5.0 [facility] Comment on above: Performed By: #### 1 [id number], [id number], 8684000, 9897517, 0319037, 8610377, 3429942 #### [facility] (DEFAULT) [address] [place] [address] Albumin/Globulin [Mass ratio] 1.4 {ratio} Normal 1.4-2.6 [facility] Comment on above: Performed By: #### 1 [id number], 6919303585, 5924757, 1837712, 1331446, 3630836, 7945014 #### [facility] (DEFAULT) [address] [place] [address] 92141 Alk Phos 67 IU/L Normal 32-91 [facility] Comment on above: Performed By: #### 1 [id number], 3358104431, 5249509, 0657304, 9066500, 4554993, 2415106 #### [facility] (DEFAULT) [address] [place] [address] 33202 ALT [Catalytic activity/Vol] 19.0 U/L Normal 14.0-54.0 [facility] Comment on above: Performed By: #### 1 [id number], 0386699268, 0020092, 9914058, 3438710, 9528999, 2507074 #### [facility] (DEFAULT) [address] [place] [address] 46812 Anion gap [Moles/Vol] 10.8 mmol/L Normal 5.0-19.0 [facility] Comment on above: Performed By: #### 1 [id number], 3385225818, 5799262, 2075753, 7530959, 6203979, 8990456 #### [facility] (DEFAULT) [address] [place] [address] 93301 AST [Catalytic activity/Vol] 21 U/L Normal 15-41 [facility] Comment on above: Performed By: #### 1 [id number], 0840994692, 5128932, 2911389, 0575411, 3510861, 9832991 #### [facility] (DEFAULT) [address] [place] [address] 20845 Bili Total 0.7 mg/dL Normal 0.3-1.2 [facility] Comment on above: Performed By: #### 1 [id number], 0500566452, 5575479, 4182606, 9418371, 5969582, 9861118 #### [facility] (DEFAULT) [address] [place] [address] 29227 Calcium [Mass/Vol] 8.9 mg/dL Normal 8.9-10.3 [facility] Comment on above: Performed By: #### 1 [id number], 7629685146, 8985101, 0554532, 1601244, 8922430, 5506264 #### [facility] (DEFAULT) [address] [place] [address] 50638 Chloride [Moles/Vol] 100 mmol/L Low 101-111 [facility] Comment on above: Performed By: #### 1 [id number], 0919599208, 0511253, 6843866, 6857415, 7862748, 5007387 #### [facility] (DEFAULT) [address] [place] [address] 17831 CO2 [Moles/Vol] 26 mmol/L Normal 21-32 [facility] Comment on above: Performed By: #### 1 [id number], 0437313821, 2604113, 1173222, 7226377, 3882888, 3334513 #### [facility] (DEFAULT) [address] [place] [address] 02482 Creatinine [Mass/Vol] 0.86 mg/dL Normal 0.60-1.30 [facility] Comment on above: Performed By: #### 1 [id number], 2830544285, 2461836, 4548161, 1046135, 5142882, 4143135 #### [facility] (DEFAULT) [address] [place] [address] 39590 Globulin (S) [Mass/Vol] 3.1 g/dL Normal 1.5-4.3 [facility] Comment on above: Performed By: #### 1 [id number], 0352155265, 2898725, 9416515, 2163117, 6792646, 2983767 #### [facility] (DEFAULT) [address] [place] [address] 71420 Glucose [Mass/Vol] 90.0 mg/dL Normal 74.0-118.0 [facility] Comment on above: Performed By: #### 1 [id number], 5543151307, 5278100, 8387571, 0646037, 2848675, 4839671 #### [facility] (DEFAULT) [address] [place] [address] 33647 Osmolality 267 mOsm/L Invalid Interpretation Code [facility] Comment on above: Performed By: #### 1 [id number], 0354320599, 5999411, 8361415, 4491856, 2081956, 8774637 #### [facility] (DEFAULT) [address] [place] [address] 76103 Potassium [Moles/Vol] 3.8 mmol/L Normal 3.6-5.1 [facility] Comment on above: Performed By: #### 1 [id number], 8969858259, 2540426, 6269493, 5341595, 0250343, 6744526 #### [facility] (DEFAULT) [address] [place] [address] 54374 Protein [Mass/Vol] 7.5 g/dL Normal 6.5-8.1 [facility] Comment on above: Performed By: #### 1 [id number], 3794714762, 8598376, 5274062, 1487707, 4263384, 6632064 #### [facility] (DEFAULT) [address] [place] [address] 40119 Sodium [Moles/Vol] 133.0 mmol/L Low 136.0-144.0 [facility] Comment on above: Performed By: #### 1 [id number], 4303465379, 2258135, 8083848, 2514273, 5433238, 0860943 #### [facility] (DEFAULT) [address] [place] [address] 44735 Urea nitrogen [Mass/Vol] 17 mg/dL Normal - [facility] Comment on above: Performed By: #### 1 636285002, 2344023505, 0740816, 7095766, 5382983, 4966763, 9648678 #### [facility] (DEFAULT) [address] [place] [address] 66292 Urea nitrogen/Creatinine [Mass ratio] 19.7 mg/mg High 4.6-16.2 [facility] Comment on above: Performed By: #### 1 [id number], 5887839045, 7158150, 4433757, 7439632, 4956339, 1563794 #### [facility] (DEFAULT) [address] [place] [address] 19144 GGTon 02-03-2024 Gamma glutamyl transferase [Catalytic activity/Vol] 20.0 U/L Normal 7.0-50.0 [facility] Comment on above: Performed By: #### 1 [id number], 8651066452, 1931564, 6405482, 2248053, 1584111, 8384027 #### [facility] (DEFAULT) [address] [place] [address] 99904 Iron Levelon 02-03-2024 Iron [Mass/Vol] 93.0 ug/dL Normal 28.0-170.0 [facility] Comment on above: Performed By: #### 1 [id number], 5836978206, 8497453, 2833820, 9844084, 5811242, 8002292 #### [facility] (DEFAULT) [address] [place] [address] 62552 LDHon 02-03-2024 LDH 126.0 IU/L Normal 98.0-192.0 [facility] Comment on above: Performed By: #### 1 [id number], 3852104001, 2158087, 2949354, 7146808, 3286336, 6673266 #### [facility] (DEFAULT) [address] [place] [address] 38172 Lipid Panel Standardon 02-02 Cholesterol [Mass/Vol] 214.0 mg/dL High 66.0-200.0 [facility] Comment on above: Performed By: #### 1 [id number], 2675616297, 1026079, 6061440, 8436909, 4075808, 4762074 #### [facility] (DEFAULT) [address] [place] [address] 90511 Cholesterol in HDL [Mass/Vol] 64 mg/dL Normal 40-71 [facility] Comment on above: Performed By: #### 1 [id number], 2184071334, 9085609, 6027732, 8885440, 2169545, 4399731 #### [facility] (DEFAULT) [address] [place] [address] 44741 Cholesterol in LDL [Mass/Vol] 144 mg/dL High 1-100 [facility] Comment on above: Performed By: #### 1 [id number], 5617597883, 6864671, 8383733, 5724150, 4596271, 4396064 #### [facility] (DEFAULT) [address] [place] [address] 30723 Cholesterol.total/C holesterol in HDL [Mass ratio] 3.3 {ratio} Normal 0.0-4.5 [facility] Comment on above: Performed By: #### 1 [id number], 6261541206, 7723201, 0450556, 1950207, 6115373, 3770540 #### [facility] (DEFAULT) [address] [place] [address] 06715 Triglyceride [Mass/Vol] 28.0 mg/dL Normal 0.0-150.0 [facility] Comment on above: Performed By: #### 1 [id number], 3872348400, 3742382, 8317334, 6254676, 2429256, 3184859 #### [facility] (DEFAULT) [address] [place] [address] VLDL. 6 mg/dL Normal 5-40 [facility] Comment on above: Performed By: #### 1 614183217, 5951542967, 6959755, 6677420, 5815920, 7117315, 5668867 #### [facility] (DEFAULT) [address] [place] [address] 83849 Phoson 02-03-2024 Phosphate [Mass/Vol] 2.9 mg/dL Normal 2.5-4.6 [facility] Comment on above: Performed By: #### 1 [id number], 2818450706, 2746257, 9342821, 0696061, 8195535, 2432402 #### [facility] (DEFAULT) [address] [place] [address] 20941 Uric Acidon 02-03-2024 Urate [Mass/Vol] 4.0 mg/dL Normal 2.6-8.0 [facility] Comment on above: Performed By: #### 1 [id number], 4763018679, 7215360, 2890091, 1774952, 5377303, 4450318 #### [facility] (DEFAULT) [address] [place] [address] 09010 XR chest 2V*on 03-02-2023 XR chest 2V* [facility] [place] [address] XRay Report Signed Patient: Alondra Sanches MR#: [id number] : 1995 Acct:[id number] Age/Sex: 27 / F ADM Date: 03/02/23 [facility] Attending Dr: Lisandro Buitrago DO Copies to: Lisandro Buitrago DO Ordering Provider: Lisandro Buitrago DO Date of Service: 03/02/23 XR/XR shoulder LT min 2V*: Left shoulder pain ([id number]) XR/XR chest 2V*: Left shoulder pain;Chest pain [...] Puentes Jr., D.O.03/02/2023 4:13 PM Dictation Location: [facility] Transcribed By: [facility] 03/02/231612 Dictated By: Terry Puentes Jr DO 03/02/231611 Signed By: 03/02/231612 Normal [facility] CBC W MANUAL DIFFon 07-29-19 22 ATYPICAL LYMPH # Normal [facility] Comment on above: Performed By: #### C GARRET #### [facility] [address] [place] [address] Dr. Susannah Hopkins ATYPICAL LYMPH % Normal [facility] Comment on above: Performed By: #### C GARRET #### [facility] [address] [place] [address] Dr. Susannah Hopkins BAND # 0.3 103/ul Normal 0.0-0.3 [facility] Comment on above: Performed By: #### C GARRET #### [facility] [address] [place] [address] Dr. Susannah Hopkins BAND % 2 % Normal 0-5 [facility] Comment on above: Performed By: #### C BCMAN #### [facility] [address] [place] [address] Dr. Susannah Hopkins BASOM # 0.00 103/ul Normal 0.00-0.10 [facility] Comment on above: Performed By: #### C BCMAN #### [facility] [address] [place] [address] Dr. Susannah Hopkins BASOM % 0.0 % Critically low 0.2-2.0 [facility] Comment on above: Performed By: #### C GARRET #### [facility] [address] [address] [address] Susannah Hopkins BLAST # Normal [facility] Comment on above: Performed By: #### C GARRET #### [facility] [address] [address] [address] Susannah Hopkins BLAST % Normal [facility] Comment on above: Performed By: #### C BCOCTAVIANO #### [facility] [address] [address] [address] Susannah Hopkins CORRECTED WBC Normal 4.0-11.0 [facility] Comment on above: Performed By: #### C BCOCTAVIANO #### [facility] [address] [address] [address] Susannah Hopkins EOS # 0.00 103/ul Normal 0.00-0.70 [facility] Comment on above: Performed By: #### C GARRET #### [facility] [address] [place] [address] Dr. Susannah Hopkins EOS% 0.0 % Critically low 0.9-7.0 [facility] Comment on above: Performed By: #### C GARRET #### [facility] [address] [place] [address] Dr. Susannah Hopkins HCT 46.0 % Normal 36.0-48.0 [facility] Comment on above: Performed By: #### C GARRET #### [facility] [address] [place] [address] Dr. Susannah Hopkins HGB 15.7 g/dl Normal 12.0-16.0 [facility] Comment on above: Performed By: #### C BCOCTAVIANO #### [facility] [address] [place] [address] Dr. Susannah Hopkins LYMPHM # 0.69 103/ul Critically low 1.20-3.80 [facility] Comment on above: Performed By: #### C BCOCTAVIANO #### [facility] [address] [place] [address] Dr. Susannah Hopkins LYMPHM% 4.0 % Critically low 20.5-60.0 [facility] Comment on above: Performed By: #### C GARRET #### [facility] [address] [place] [address] Dr. Susannah Hopkins MCH 30.1 pg Normal 26.7-34.0 [facility] Comment on above: Performed By: #### C GARRET #### [facility] [address] [place] [address] Dr. Susannah Hopkins MCHC 34.1 g/dl Normal 29.9-35.2 [facility] Comment on above: Performed By: #### C GARRET #### [facility] [address] [place] [address] Dr. Susannah Hopkins MCV 88.3 fL Normal 81.0-99.0 [facility] Comment on above: Performed By: #### C GARRET #### [facility] [address] [place] [address] Dr. Susannah Hopkins METAMYELOCYTE # Normal [facility] Comment on above: Performed By: #### C GARRET #### [facility] [address] [place] [address] Dr. Susannah Hopkins METAMYELOCYTE % Normal [facility] Comment on above: Performed By: #### C GARRET #### [facility] [address] [place] [address] Dr. Susannah Hopkins MONOM# 1.20 103/ul Critically high 0.30-0.80 [facility] Comment on above: Performed By: #### Natty COMBS #### [facility] [address] [place] [address] Dr. Susannah Hopkins MONOM% 7.0 % Normal 1.7-12.0 [facility] Comment on above: Performed By: #### C GARRET #### [facility] [address] [place] [address] Dr. Susannah Hopkins MPV 9.8 fL Normal 9.5-13.5 [facility] Comment on above: Performed By: #### C GARRET #### [facility] [address] [place] [address] Dr. Susannah Hopkins MYELOCYTE # Normal [facility] Comment on above: Performed By: #### C GARRET #### [facility] [address] [address] [address] Susannah Hopkins MYELOCYTE % Normal [facility] Comment on above: Performed By: #### C BCMAN #### [facility] [address] [address] [address] Susannah Hopkins NRBC Normal [facility] Comment on above: Performed By: #### C BCOCTAVIANO #### [facility] [address] [address] [address] Susannah Hopkins PLT 278 103/ul Normal 150-450 [facility] Comment on above: Performed By: #### C BCOCTAVIANO #### [facility] [address] [address] [address] Susannah Hopkins RBC 5.21 106/ul Normal 4.20-5.40 [facility] Comment on above: Performed By: #### C BCOCTAVIANO #### [facility] [address] [address] [address] Susannah Hopkins RDW 11.7 % Normal 11.0-15.0 [facility] Comment on above: Performed By: #### C BCOCTAVIANO #### [facility] [address] [address] [address] Susannah Hopkins SEG # 14.96 103/ul Critically high 1.40-6.50 [facility] Comment on above: Performed By: #### C BCOCTAVIANO #### [facility] [address] [address] [address] Susannah Hopkins SEG % 87.0 % Critically high 43.0-75.0 [facility] [place] Comment on above: Performed By: #### C BCMAN #### [facility] [address] [address] [address] Susannah Hopkins WBC 17.2 103/ul Critically high 4.0-11.0 [facility] Comment on above: Performed By: #### C BCMAN #### [facility] [address] [address] [address] Susannah Hopkins INFLUENZA A AND B AGon 07-28 INFLUANEGH SEE BELOW Normal [facility] Comment on above: Result Comment: Nega tive for Flu A protein angiten. Infection due to Flu A cannot be ruled out. Flu A angiten in the sample may be below the detection limit of the test. Performed By: #### I NFLUAB #### [facility] [address] [place] [address] Dr. Susannah Hopkins INFLUBANNER SEE BELOW Normal [facility] Comment on above: Result Comment: Nega tive for Flu B protein antigen. Infection due to Flu B cannot be ruled out. Flu B antigen in the sample may be below the detection limit of the test. Performed By: #### I NFLUAB #### [facility] [address] [place] [address] Dr. Susannah Hopkins INFLUENZA A AG Negative Normal NEGATIVE SEE COMMENT [facility] Comment on above: Performed By: #### I NFLUAB #### [facility] [address] [place] [address] Dr. Susannah Hopkins INFLUENZA B AG Negative Normal NEGATIVE SEE COMMENT [facility] Comment on above: Performed By: #### I NFLUAB #### [facility] [address] [place] [address] Dr. Susannah Hopkins INTERNAL CONTROLS Within Normal Limits Normal Within Normal Limits [facility] Comment on above: Performed By: #### I NFLUAB #### [facility] [address] [place] [address] Dr. Susannah Hopkins PREG HCG QUALon 07-28-2021 , QUAL Negative Normal NEGATIVE [facility] Comment on above: Performed By: #### P REG #### [facility] [address] [place] [address] Dr. Susannah Hopkins PROF 14(COMP METB)on 022 Albumin [Mass/Vol] 4.4 g/dL Normal 3.4-5.0 [facility] Comment on above: Performed By: #### C MP #### [facility] [address] [place] [address] Dr. Susannah Hopkins Albumin/Globulin [Mass ratio] 1.1 {ratio} Normal [facility] Comment on above: Performed By: #### C MP #### [facility] [address] [place] [address] Dr. Susannah Hopikns ALP [Catalytic activity/Vol] 71 U/L Normal 46-116 [facility] Comment on above: Performed By: #### C MP #### [facility] [address] [place] [address] Dr. Susannah Hopkins ALT [Catalytic activity/Vol] 19 U/L Normal 14-59 [facility] Comment on above: Performed By: #### C MP #### [facility] [address] [place] [address] Dr. Susannah Hopkins Anion gap [Moles/Vol] 15.1 mmol/L Normal [facility] Comment on above: Performed By: #### C MP #### [facility] [address] [place] [address] Dr. Susannah Hopkins AST [Catalytic activity/Vol] 23 U/L Normal 15-37 [facility] Comment on above: Performed By: #### C MP #### [facility] [address] [place] [address] Dr. Susannah Hopkins Bilirubin [Mass/Vol] 0.9 mg/dL Normal 0.2-1.3 [facility] Comment on above: Performed By: #### C MP #### [facility] [address] [place] [address] Dr. Susannah Hopkins Calcium [Mass/Vol] 9.5 mg/dL Normal 8.5-10.1 [facility] Comment on above: Performed By: #### C MP #### [facility] [address] [place] [address] Dr. Susannah Hopkins Chloride [Moles/Vol] 101 mmol/L Normal 98-107 [facility] Comment on above: Performed By: #### C MP #### [facility] [address] [place] [address] Dr. Susannah Hopkins CO2 [Moles/Vol] 23.8 mmol/L Normal 22.0-30.0 [facility] Comment on above: Performed By: #### C MP #### [facility] [address] [place] [address] Dr. Susannah Hopkins Creatinine [Mass/Vol] 1.04 mg/dL Normal 0.52-1.04 [facility] Comment on above: Performed By: #### C MP #### [facility] [address] [address] [address] Susannah Hopkins EGFR-AF BOLIVIAN >60 Normal >=60 [facility] Comment on above: Performed By: #### C MP #### [facility] [address] [address] [address] Susannah Hopkins EGFR-NON AF BOLIVIAN >60 Normal >=60 [facility] Comment on above: Performed By: #### C MP #### [facility] [address] [address] [address] Susannah Hopkins Globulin (S) [Mass/Vol] 3.9 g/dL Normal [facility] Comment on above: Performed By: #### C MP #### [facility] [address] [address] [address] Susannah Hopkins Glucose [Mass/Vol] 157 mg/dL Critically high 74-106 [facility] Comment on above: Performed By: #### C MP #### [facility] [address] [address] [address] Susannah Hopkins Potassium [Moles/Vol] 3.9 mmol/L Normal 3.4-5.0 [facility] Comment on above: Performed By: #### C MP #### [facility] [address] [address] [address] Susannah Hopkins Protein [Mass/Vol] 8.3 g/dL Critically high 6.1-8.2 [facility] Comment on above: Performed By: #### C MP #### [facility] [address] [address] [address] Susannah Hopkins Sodium [Moles/Vol] 136 mmol/L Critically low 137-145 [facility] Comment on above: Performed By: #### C MP #### [facility] [address] [address] [address] Susannah Hopkins Urea nitrogen [Mass/Vol] 20.0 mg/dL Critically high 7.0-18.0 [facility] Comment on above: Performed By: #### C MP #### [facility] [address] [place], [place] [address] Dr. Susannah Hopkins Urea nitrogen/Creatinine [Mass ratio] 19.2 mg/mg Normal [facility] Comment on above: Performed By: #### C MP #### [facility] [address] [place], [place] [address] Dr. Susannah Hopkins Vital Signs Date Time Vital Sign Value Performing Clinician Facility 01-02-2025 08:26-0400 Body mass index (BMI) [Ratio] 28.96 kg/m2 Rocio Blake DO Work Phone: [facility] 01-02-2025 08:26-0400 Body weight 74.16 kg Rocio Blake DO Work Phone: [facility] 01-02-2025 08:26-0400 Diastolic blood pressure 76 mm[Hg] Rocio Blake DO Work Phone: [facility] 01-02-2025 08:26-0400 Systolic blood pressure 120 mm[Hg] Rocio Blake DO Work Phone: [facility] 12-19-2024 09:04-0400 Body mass index (BMI) [Ratio] 28.7 kg/m2 Nadine DE JESUS Work Phone: [facility] 12-19-2024 09:04-0400 Body weight 73.48 kg Nadine DE JESUS Work Phone: [facility] 12-19-2024 09:04-0400 Diastolic blood pressure 78 mm[Hg] Nadine Galvan PA Work Phone: [facility] 12-19-2024 09:04-0400 Systolic blood pressure 104 mm[Hg] Nadine DE JESUS Work Phone: [facility] 12-05-2024 09:23-0400 Body mass index (BMI) [Ratio] 28.52 kg/m2 Rocio Blake DO Work Phone: [facility] 12-05-2024 09:23-0400 Body weight 73.03 kg Rocio Blake DO Work Phone: [facility] 12-05-2024 09:23-0400 Diastolic blood pressure 76 mm[Hg] Rocio Blake DO Work Phone: [facility] 12-05-2024 09:23-0400 Systolic blood pressure 120 mm[Hg] Rocio Blake DO Work Phone: [facility] 11-22-2024 08:52-0400 Body mass index (BMI) [Ratio] 28.19 kg/m2 Nadine DE JESUS Work Phone: [facility] 11-22-2024 08:52-0400 Body weight 72.18 kg Nadine DE JESUS Work Phone: [facility] 11-22-2024 08:52-0400 Diastolic blood pressure 76 mm[Hg] Nadine DE JESUS Work Phone: [facility] 11-22-2024 08:52-0400 Systolic blood pressure 120 mm[Hg] Nadine Galvan PA Work Phone: [facility] 10-26-2024 12:05-0400 Body mass index (BMI) [Ratio] 26.93 kg/m2 Rocio Blake DO Work Phone: [facility] 10-26-2024 12:05-0400 Body weight 68.95 kg Rocio Blake DO Work Phone: [facility] 10-26-2024 12:05-0400 Diastolic blood pressure 68 mm[Hg] Rocio Blake DO Work Phone: [facility] 10-26-2024 12:05-0400 Systolic blood pressure 120 mm[Hg] Rocio Blake DO Work Phone: [facility] 08-29-2024 14:34-0400 Body mass index (BMI) [Ratio] 25.65 kg/m2 Rocio Blake DO Work Phone: [facility] 08-29-2024 14:34-0400 Body weight 65.68 kg Rocio Blake DO Work Phone: [facility] 08-29-2024 14:34-0400 Diastolic blood pressure 72 mm[Hg] Rocio Blake DO Work Phone: [facility] 08-29-2024 14:34-0400 Systolic blood pressure 120 mm[Hg] Rocio Blake DO Work Phone: [facility] 08-10-2024 14:55-0400 Body height 160 cm [facility] Nurse [facility] 08-10-2024 14:55-0400 Body mass index (BMI) [Ratio] 25.18 kg/m2 Nom Nurse [facility] 08-10-2024 14:55-0400 Body weight 64.47 kg [facility] Nurse [facility] 08-10-2024 14:55-0400 Diastolic blood pressure 76 mm[Hg] [facility] Nurse [facility] 08-10-2024 14:55-0400 Systolic blood pressure 120 mm[Hg] [facility] Nurse [facility] 05-16-2024 12:44-0500 Body weight 65.32 kg Attila Bundy MD Work Phone: [facility] 05-16-2024 12:44-0500 Diastolic blood pressure 78 mm[Hg] Attila Bundy MD Work Phone: [facility] 05-16-2024 12:44-0500 Systolic blood pressure 120 mm[Hg] Attila Bundy MD Work Phone: [facility] 02-08-2024 15:08-0400 Body weight 66.22 kg Attila Bundy MD Work Phone: [facility] 02-08-2024 15:08-0400 Diastolic blood pressure 68 mm[Hg] Attila Bundy MD Work Phone: [facility] 02-08-2024 15:08-0400 Systolic blood pressure 130 mm[Hg] Attila Bundy MD Work Phone: [facility] 05-12-2023 07:30-0500 Body height 158.75 cm Tyrell Stiles Other [email or web address] Other 05-12-2023 07:30-0500 Body mass index (BMI) [Ratio] 25.41 kg/m2 Tyrell Stiles Other [email or web address] Other 05-12-2023 07:30-0500 Body weight 64.05 kg Tyrell Stiles Other [email or web address] Other 05-12-2023 07:30-0500 Diastolic blood pressure 78 mm[Hg] Tyrell Cuellarmer Other [email or web address] Other 05-12-2023 07:30-0500 Respiratory rate 16 /min Tyrell Cuellarmer Other [email or web address] Other 05-12-2023 07:30-0500 SaO2% (BldA) [Mass fraction] 98 % Tyrell Cuellarmer Other [email or web address] Other 05-12-2023 07:30-0500 Systolic blood pressure 122 mm[Hg] Tyrell Stiles Other [email or web address] Other 02-24-2023 12:30-0400 Body height 158.75 cm Lisandro [employer] Other [email or web address] Other 02-24-2023 12:30-0400 Body mass index (BMI) [Ratio] 25.2 kg/m2 Lisandro Skeeds Other [email or web address] Other 02-24-2023 12:30-0400 Body weight 63.5 kg Lisandro Skeeds Other [email or web address] Other 02-24-2023 12:30-0400 Diastolic blood pressure 85 mm[Hg] Lisandro Skeeds Other [email or web address] Other 02-24-2023 12:30-0400 Respiratory rate 16 /min Lisandro Buitrago Other [email or web address] Other 02-24-2023 12:30-0400 SaO2% (BldA) [Mass fraction] 99 % Lisandro Buitrago Other [email or web address] Other 02-24-2023 12:30-0400 Systolic blood pressure 140 mm[Hg] Lisandro Buitrago Other [email or web address] Other Encounters Encounter Date Encounter Type Care Provider Facility Start: 01-04-2025 End: 01-04-2025 Clinisync Result Encounter Rocio Blake DO Work Phone: [facility] Unsolicited Start: 01-04-2025 End: 01-04-2025 Clinisync Result Encounter Rocio Blake DO Work Phone: [facility] Unsolicited Start: 01-02-2025 End: 01-02-2025 Bamboo flowsheet Rocio Blake DO Work Phone: [facility] Start: 01-02-2025 End: 01-02-2025 Bamboo flowsheet Rocio Blake DO Work Phone: [facility] Start: 01-02-2025 End: 01-02-2025 flow sheet Rocio Blake DO Work Phone: [facility] Comment on above: Third trimester preg lindsey ([facility]); 32 weeks gestation of ([facility]); ZULMA (amniotic fluid index) borderline low Start: 01-02-2025 End: 01-02-2025 ambulatory ROCIO BLAKE Not Available Start: 12-19-2024 End: 12-19-2024 flow sheet Nadine DE JESUS Work Phone: [facility] Comment on above: 30 weeks gestation o f ([facility]); Third trimester ([facility]); HSV infection Start: 12-19-2024 End: 12-19-2024 ambulatory NADINE GALVAN Not Available Start: 12-05-2024 End: 12-05-2024 Bamboo flowsheet Rocio Blake DO Work Phone: [facility] Start: 12-05-2024 End: 12-05-2024 Bamboo flowsheet Rocio Blake DO Work Phone: [facility] Start: 12-05-2024 End: 12-05-2024 flow sheet Rocio Blake DO Work Phone: [facility] Comment on above: Third trimester preg lindsey ([facility]); 28 weeks gestation of ([facility]); HSV infection; size inconsistent with dates ([facility]) Start: 12-05-2024 End: 12-05-2024 ambulatory ROCIO [...] on above: 26 weeks gestation o f ([facility]); Second trimester ([facility]); Elevated glucose tolerance test Start: 11-22-2024 End: 11-22-2024 ambulatory NADINE MANDY Not Available Start: 10-26-2024 End: 10-26-2024 ambulatory ROCIO BLAKE Not Available Start: 10-26-2024 End: 10-26-2024 flow sheet Rocio Blake DO Work Phone: [facility] Comment on above: Second trimester pre gnancy ([facility]); 22 weeks gestation of ([facility]); Diabetes mellitus screening Start: 10-26-2024 End: [...] 15 minutes Attila Bundy MD Work Phone: [facility] Comment on above: Hormone imbalance (P rimary Dx); Amenorrhea; Missed menses; Family planning; Thyroid disorder screen Start: 05-16-2024 End: 05-16-2024 ambulatory ATTILA BUNDY Not Available Start: 03-30-2024 End: 03-30-2024 ambulatory [facility] Facility: [facility] Start: 02-08-2024 End: 02-08-2024 Patient encounter status Attila Bundy MD Work Phone: [facility] Start: 02-08-2024 End: 02-08-2024 Periodic preventive med est patient 18-39 yrs Attila Bundy MD Work Phone: [facility] Comment on above: Amenorrhea (Primary Dx); Screening for malignant neoplasm of cervix; Encounter for gynecological examination without abnormal finding; Encounter for surveillance of vaginal ring hormonal contraceptive device; Missed menses Start: 02-08-2024 End: 02-08-2024 ambulatory ATTILA BUNDY Not Available Start: 01-24-2024 End: 01-24-2024 ambulatory Facility:[facility] Start: 07-27-2023 End: 07-27-2023 ambulatory [facility] Facility: [facility] Start: 07-05-2023 End: 07-05-2023 ambulatory [facility] Facility: [facility] Start: 05-12-2023 End: 05-12-2023 ambulatory Tyrell Stiles Other [facility] [employer] Other Start: 05-12-2023 Office outpatient vi sit 15 minutes Tyrell Stiles [facility] [place] Start: 03-02-2023 End: 03-02-2023 ambulatory Lisandro Mauricios Facility:[facility] Start: 03-02-2023 End: 03-02-2023 ambulatory DO Lisandro Mauricios Work Phone: [facility] Work Phone: Start: 03-02-2023 End: 03-02-2023 Patient encounter procedure DO Lisandro Kuns Work Phone: [facility] Start: 02-24-2023 End: 02-24-2023 ambulatory Lisandro Buitrago Other [employer] Other Start: 02-24-2023 Encounter for genera l adult medical examination without abnormal findings Lisandro Buitrago [facility] [place] Start: 02-24-2023 Office outpatient ne w 30 minutes Lisandro Buitrago [facility] [place] Start: 07-28-2021 End: 07-28-[address] JANES GARCIA Facility: Procedures Date Procedure Procedure Detail Performing Clinician Start: 01-04-2025 OB BPP W NON-STRESS Rocio Blake DO Work Phone: Start: 01-02-2025 Urnls dip stick/tabl et rgnt non-auto w/o micrscp Rocio Blake DO Work Phone: Start: 12-19-2024 Urnls dip [...] 03-02-2023 Plain chest X-ray DO [employer] Work Phone: Start: 03-02-2023 Plain X-ray of left shoulder DO Lisandro [employer] Work Phone: Plan of Treatment Date Care Activity Detail Author Start: 01-16-2025 End: 01-16-2025 Patient encounter procedure 01/16/2025 8:50 AM EDT Routine JORDY MONTANO [address] [id number] Nadine Galvan, PA [address] [place] [address] JORDY Peng OBSOFÍA Start: 01-08-2025 Influenza vaccination [facility] Start: 01-02-2025 End: 07-05-2025 US biophysical profile w non stress test US biophysical profile w non stress test Imaging Routine ZULMA (amniotic fluid index) borderline low Expected: 01/02/2025 (Approximate), Expires: 07/05/2025 [facility] Work Phone: Comment on above: Expected: 01/02/2025 (Approximate), Expires: 07/05/2025 Start: 01-02-2025 End: 01-02-2025 Patient encounter procedure JORDY MONTANO Comment on above: Arrived Start: 12-19-2024 End: 12-19-2024 Patient encounter procedure 12/19/2024 8:50 AM EDT Routine JORDY MONTANO [address] [address] Nadine Galvan PA [address] [place] [address] [facility] Start: 12-19-2024 End: 12-19-2024 Professional / ancillary services management 12/19/2024 8:00 AM EDT Ancillary Procedure [facility] [address] [address] [facility] Start: 12-05-2024 End: 04-07-2025 US for US OB follow up transabdominal approach Imaging Routine size inconsistent with dates ([facility]) Expected: 12/05/2024, Expires: 04/07/2025 [facility] Work Phone: Comment on above: Expected: 12/05/2024 , Expires: 04/07/2025 Start: 12-05-2024 End: 12-05-2024 Patient encounter procedure [facility] Comment on above: Arrived Start: 11-22-2024 End: 11-22-2025 Measurement of glucose 3 hours after glucose challenge for glucose tolerance test Glucose tolerance, 3 hours Lab Routine Elevated glucose tolerance test Expected: 11/22/2024 (Approximate), Expires: 11/22/2025 [facility] Work Phone: Comment on above: Expected: 11/22/2024 (Approximate), Expires: 11/22/2025 Start: 11-22-2024 End: 11-22-2024 Patient encounter procedure 11/22/2024 8:50 AM EDT Routine [facility] [address] [phone] Nadine Galvan PA [address] [place] [address] [facility] Start: 10-26-2024 End: 10-26-2025 [...] Expected: 10/26/2024 (Approximate), Expires: 10/26/2025 [facility] Comment on above: Expected: 10/26/2024 (Approximate), Expires: 10/26/2025 Start: 09-27-2024 End: 09-27-2024 Patient encounter procedure 09/27/2024 3:30 PM EDT Routine [facility] [address] [phone] Nadine Galvan PA [address] [place] [address] [facility] Start: 08-29-2024 End: 08-29-2024 Patient encounter procedure [facility] Comment on above: Arrived Start: 07-27-2024 End: 07-27-2024 ambulatory 07/27/2024 10:30 AM EDT Initial [facility] [address] [place] [phone] Attila Bundy MD [address] [place] [address] [facility] Start: 07-17-2024 End: 07-17-2024 Patient encounter procedure 07/17/2024 12:30 PM EDT Office Visit [facility] [address] [place] [id number] Attila Bundy MD [address] [place], [place] [id number] [facility] Start: 07-17-2024 End: 07-17-2024 Professional / ancillary services management 07/17/2024 8:30 AM EDT Ancillary Procedure [facility] [address] [place] [address] [facility] Start: 07-11-2024 End: 07-11-2025 Bacteria identified in Urine by Culture Urine culture Microbiology Routine Encounter for supervision of normal first in first trimester Expected: 07/11/2024, Expires: 07/11/2025 [facility] Comment on above: Expected: 07/11/2024 , Expires: 07/11/2025 Start: 07-11-2024 End: 07-11-2025 BEACON CARRIER SCREEN;14 GENES BEACON CARRIER SCREEN;14 GENES Lab Routine Screening for genetic disease carrier status Expected: 07/11/2024 (Approximate), Expires: 07/11/2025 [facility] Comment on above: Expected: 07/11/2024 (Approximate), Expires: 07/11/2025 Start: 07-11-2024 End: 07-11-2025 Blood type and Indirect antibody screen panel - Blood Type and screen Lab Routine Encounter for supervision of normal first in first trimester Expected: 07/11/2024, Expires: 07/11/2025 [facility] Comment on above: Expected: 07/11/2024 , Expires: 07/11/2025 Start: 07-11-2024 End: 07-11-2025 CBC W Auto Differential panel - Blood CBC and differential Lab Routine Encounter for supervision of normal first in first trimester Expected: 07/11/2024, Expires: 07/11/2025 [facility] Comment on above: Expected: 07/11/2024 , Expires: 07/11/2025 Start: 07-11-2024 End: 07-11-2025 DRUG SCREEN 17 W/CONF, UR DRUG SCREEN 17 W/CONF, UR Lab Routine Encounter for drug screening Expected: 07/11/2024, Expires: 07/11/2025 [facility] Comment on above: Expected: 07/11/2024 , Expires: 07/11/2025 Start: 07-11-2024 End: 07-11-2025 Hepatitis B virus surface Ag [Presence] in Serum or Plasma by Immunoassay Hepatitis B surface antigen Lab Routine Encounter for supervision of normal first in first trimester Expected: 07/11/2024, Expires: 07/11/2025 [facility] Comment on above: Expected: 07/11/2024 , Expires: 07/11/2025 Start: 07-11-2024 End: 07-11-2025 Hepatitis C virus Ab [Presence] in Serum or Plasma by Immunoassay Hepatitis C antibody Lab Routine Encounter for supervision of normal first in first trimester Expected: 07/11/2024, Expires: 07/11/2025 [facility] Comment on above: Expected: 07/11/2024 , Expires: 07/11/2025 Start: 07-11-2024 End: 07-11-2025 HIV-1/HIV-2 antigen/antibody combination immunoassay HIV-1 and HIV-2 antibodies Lab Routine Encounter for supervision of normal first in first trimester Expected: 07/11/2024, Expires: 07/11/2025 [facility] Comment on above: Expected: 07/11/2024 , Expires: 07/11/2025 Start: 07-11-2024 End: 07-11-2025 [id number] PLUS Core+SCA [id number] PLUS Core+SCA Lab Routine Encounter for screening for chromosomal anomalies Expected: 07/11/2024 (Approximate), Expires: 07/11/2025 [facility] Comment on above: Expected: 07/11/2024 (Approximate), Expires: 07/11/2025 Start: 07-11-2024 End: 07-11-2025 Reagin Ab [Presence] in Serum by RPR RPR Lab Routine Encounter for supervision of normal first in first trimester Expected: 07/11/2024, Expires: 07/11/2025 [facility] Comment on above: Expected: 07/11/2024 , Expires: 07/11/2025 Start: 07-11-2024 End: 07-11-2025 Rubella antibody, IgG Rubella antibody, IgG Lab Routine Encounter for supervision of normal first in first trimester Expected: 07/11/2024, Expires: 07/11/2025 [facility] Comment on above: Expected: 07/11/2024 , Expires: 07/11/2025 Start: 07-11-2024 End: 07-11-2025 Urinalysis complete panel - Urine Urinalysis with microscopic Lab Routine Encounter for supervision of normal first in first trimester Expected: 07/11/2024, Expires: 07/11/2025 [facility] Work Phone: Comment on above: Expected: 07/11/2024 , Expires: 07/11/2025 Start: 05-16-2024 End: 05-16-2025 Cortisol Cortisol Lab Routine Hormone imbalance Expected: 05/16/2024, Expires: 05/16/2025 [facility] Comment on above: Expected: 05/16/2024 , Expires: 05/16/2025 Start: 05-16-2024 End: 05-16-2025 DHEA-sulfate DHEA-sulfate Lab Routine Hormone imbalance Expected: 05/16/2024, Expires: 05/16/2025 [facility] Comment on above: Expected: 05/16/2024 , Expires: 05/16/2025 Start: 05-16-2024 End: 05-16-2025 Estradiol Estradiol Lab Routine Hormone imbalance Expected: 05/16/2024, Expires: 05/16/2025 [facility] Comment on above: Expected: 05/16/2024 , Expires: 05/16/2025 Start: 05-16-2024 End: 05-16-2025 Estrone Estrone Lab Routine Hormone imbalance Expected: 05/16/2024, Expires: 05/16/2025 [facility] Comment on above: Expected: 05/16/2024 , Expires: 05/16/2025 Start: 05-16-2024 End: 05-16-2025 Follicle stimulating hormone Follicle stimulating hormone Lab Routine Hormone imbalance Thyroid disorder screen Expected: 05/16/2024, Expires: 05/16/2025 [facility] Comment on above: Expected: 05/16/2024 , Expires: 05/16/2025 Start: 05-16-2024 End: 05-16-2025 Insulin, fasting Insulin, fasting Lab Routine Amenorrhea Missed menses Hormone imbalance Expected: 05/16/2024, Expires: 05/16/2025 [facility] Comment on above: Expected: 05/16/2024 , Expires: 05/16/2025 Start: 05-16-2024 End: 05-16-2025 Luteinizing hormone Luteinizing hormone Lab Routine Hormone imbalance Thyroid disorder screen Expected: 05/16/2024, Expires: 05/16/2025 [facility] Comment on above: Expected: 05/16/2024 , Expires: 05/16/2025 Start: 05-16-2024 End: 05-16-2025 Progesterone Progesterone Lab Routine Hormone imbalance Expected: 05/16/2024, Expires: 05/16/2025 [facility] Comment on above: Expected: 05/16/2024 , Expires: 05/16/2025 Start: 05-16-2024 End: 05-16-2025 Sex hormone binding globulin Sex hormone binding globulin Lab Routine Hormone imbalance Expected: 05/16/2024, Expires: 05/16/2025 [facility] Comment on above: Expected: 05/16/2024 , Expires: 05/16/2025 Start: 05-16-2024 End: 05-16-2025 Testosterone, free, total Testosterone, free, total Lab Routine Hormone imbalance Expected: 05/16/2024, Expires: 05/16/2025 [facility] Comment on above: Expected: 05/16/2024 , Expires: 05/16/2025 Start: 05-16-2024 End: 05-16-2025 Thyrotropin [Units/volume] in Serum or Plasma TSH Lab Routine Hormone imbalance Thyroid disorder screen Expected: 05/16/2024, Expires: 05/16/2025 [facility] Work Phone: Comment on above: Expected: 05/16/2024 , Expires: 05/16/2025 Start: 05-16-2024 End: 05-16-2025 Vitamin D 1,25 dihydroxy Vitamin D 1,25 dihydroxy Lab Routine Hormone imbalance Expected: 05/16/2024, Expires: 05/16/2025 [facility] Comment on above: Expected: 05/16/2024 , Expires: 05/16/2025 Start: 05-16-2024 End: 05-16-2024 Patient encounter procedure 05/16/2024 12:30 PM EST Office Visit [facility] [address] [place] [phone] Attila Bundy MD [address] [place] [address] [facility] Start: 02-08-2024 End: 02-07-2025 Follicle stimulating hormone Follicle stimulating hormone Lab Routine Amenorrhea Expected: 02/08/2024 (Approximate), Expires: 02/07/2025 [facility] Comment on above: Expected: 02/08/2024 (Approximate), Expires: 02/07/2025 Start: 01-09-2024 Influenza vaccination Influenza Vacc ine (#1) [facility] hCG, qualitative hCG, qualitativ e Lab Routine Amenorrhea Ordered: 02/08/2024 [facility] Comment on above: Ordered: 02/08/2024 Hemoglobin A1c/Hemoglobin.total in Blood Hemoglobin A1c Lab Routine with uncertain dates, antepartum Ordered: 08/10/2024 [facility] Work Phone: Comment on above: Ordered: 08/10/2024 Luteinizing hormone Luteinizing hormone Lab Routine Amenorrhea Ordered: 02/08/2024 [facility] Comment on above: Ordered: 02/08/2024 Progesterone Progesterone Lab Routine Amenorrhea Ordered: 02/08/2024 [facility] Comment on above: Ordered: 02/08/2024 SENDOUT TEST MISCELLANEOUS [facility] SENDOUT TEST MISCELLANEOUS [facility] Lab Routine Screening for malignant neoplasm of cervix Encounter for gynecological examination without abnormal finding Ordered: 02/08/2024 [facility] Work Phone: Comment on above: Ordered: 02/08/2024 Testosterone, free, total Testosterone, free, total Lab Routine Amenorrhea Ordered: 02/08/2024 [facility] Comment on above: Ordered: 02/08/2024 Immunizations Immunization Date Immunization Notes Care Provider Fa cili 09-25-2020 COVID-19 Vaccine Moderna - Documentation Purposes Only Lisandro Buitrago Other [email or web address] Other 08-21-2020 COVID-19 Vaccine Moderna - Documentation Purposes Only Lisandro Buitrago Other [email or web address] Other Payers Date Payer Category Payer Unknown [id number] 2023 Private Health Insurance [id number] 2023 Private Health Insurance [id number] 2023 Unknown [id number] 2. [id number] 1995 Unknown [id number] 2.16.84 0.1.927327.3.579.2.593 1995 Unknown [id number] 2.16.8 40.1.283370.3.579.2.718 1995 Unknown [id number] 2.16.8 40.1.329247.3.579.2.718 1995 Unknown [id number] 2.16.8 40.1.161136.3.579.2.718 1995 Unknown [id number] 2.16.8 40.1.744974.3.579.2.1259 1995 Unknown [id number] 2.16.8 40.1.251926.3.579.2.1259 1995 Unknown [id number] 2.16.8 40.1.158225.3.579.2.9 1995 Unknown [id number] 2.16.8 40.1.526391.3.579.2.1259 1995 Unknown [id number] 2.16.8 40.1.451246.3.579.2.1259 1995 Unknown [id number] 2.16.8 40.1.217232.3.579.2.1259 1995 Unknown [id number] 2.16.8 40.1.667184.3.579.2.1259 1995 Unknown [id number] 2.16.84 0.1.181784.3.579.2.1259 1995 Unknown [id number] 2.16.84 0.1.563687.3.579.2.1259 1995 Unknown [id number] 2.16.84 0.1.112983.3.579.2.1259 1995 Unknown [id number] 2.16.84 0.1.231509.3.579.2.1259 1995 Unknown [id number] 2.16.84 0.1.794713.3.579.2.1259 1995 Unknown [id number] 2.16.84 0.1.010028.3.579.2.1259 1995 Unknown [id number] 2.16.84 0.1.020550.3.579.2.1259 1959 Self-pay Unknown MMO [id number] Unknown [id number] 2.16.8 40.1.615531.3.579.2.531 Social History Date Type Detail Facility Start: 02-08-2024 End: 05-16-2024 Sex Assigned At [facility] [employer] Other Start: 1995 Sex Assigned At Female [facility] Start: 05-15-2023 Tobacco smoking stat [facility] Never smoked tobacco [facility] Start: 05-15-2023 [...] goal Clinical Notes 02-24-2023 to 01-02-2025 Zita Borrego, ALEKSANDR - 01/02/2025 8:30 AM LIZA Harris - 12/19/2024 8:50 AM Elton Borrego, AELKSANDR - 12/05/2024 9:00 AM LIZA Harris - 11/22/2024 8:50 AM Elton Borergo LPN - 08/29/2024 2:10 PM EDT Note Date & Type Note Facility 01-02-2025 History of Presen t illness Narrative Reason for Appointment: Patient ID: Alondra Beaver is a 29 y.o. female who presents [...] Gilda Felixp Lung cancer Paternal Grandmother Gilda Walp Colon [...] nursing note reviewed. Exam conducted with a leather tooler present. Vitals: Estimated body mass index is 28.96 kg/m as calculated from the following: Height as of 08/10/24: 5' 3 . Weight as of this encounter: 163 lb 8 oz. BP: 120/76 Patient's last menstrual period was 05/09/2024 (exact date). ASSESSMENT & PLAN ICD-10-CM 1. Third trimester ([facility]) Z34.93 POCT urinalysis dipstick manually resulted 2. 32 weeks gestation of ([facility]) Z3A.32 Return OB: [...] Lozano DO documented in this encounter [facility] 12-19-2024 History of Presen t illness Narrative Reason for Appointment: Patient ID: Alondra Beaver is a 29 y.o. female who presents [...] Mother Esmer Walp Thyroid disease Mother Esmer Walshane Polycystic ovary syndrome Sister Breast cancer Maternal [...] PLAN ICD-10-CM 1. 30 weeks gestation of ([facility]) Z3A.30 POCT urinalysis dipstick manually resulted 2. Third trimester ([facility]) Z34.93 POCT urinalysis dipstick manually resulted [...] LIZA Zaldivar documented in this encounter [facility] 12-05-2024 History of Presen t illness Narrative Reason for Appointment: Patient ID: Alondra Beaver is a 28 y.o. female who presents [...] nursing note reviewed. Exam conducted with a leather tooler present. Vitals: Estimated body mass index is 28.52 kg/m as calculated from the following: Height as of 25: 5' 3 . Weight as of this encounter: 161 lb. BP: 120/76 Patient's last menstrual period was 05/09/2024 (exact date). ASSESSMENT & PLAN ICD-10-CM 1. Third trimester ([facility]) Z34.93 CANCELED: POCT urinalysis dipstick manually resulted 2. 28 weeks gestation of ([facility]) Z3A.28 3. 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 size inconsistent with dates ([facility]) O26.849 US OB follow up transabdominal [...] Lozano DO documented in this encounter [facility] 11-22-2024 History of Presen t illness Narrative Reason for Appointment: Patient ID: Alondra Beaver is a 28 y.o. female who presents [...] PLAN ICD-10-CM 1. 26 weeks gestation of ([facility]) Z3A.26 POCT urinalysis dipstick manually resulted 2. Second trimester ([facility]) Z34.92 POCT urinalysis dipstick manually resulted [...] LIZA Zaldivar documented in this encounter [facility] 10-26-2024 History of Presen t illness Narrative Reason for Appointment: Patient ID: Alondra Beaver is a 28 y.o. female who presents [...] ASSESSMENT & PLAN ICD-10-CM 1. Second trimester ([facility]) Z34.92 POCT urinalysis dipstick manually resulted 2. 22 weeks gestation of ([facility]) Z3A.22 3. Diabetes mellitus screening Z13.1 [...] Lozano DO documented in this encounter [facility] 08-29-2024 History of Presen t illness Narrative Reason for Appointment: Patient ID: Alondra Beaver is a 28 y.o. female who presents [...] nursing note reviewed. Exam conducted with a leather tooler present. Vitals: Estimated body mass index is [...] or undercooked meat, and stay away from [facility]. Patient has been consulted regarding any further do's and don'ts of . Patient voiced understanding and all questions and concerns were answered. Orders Placed This Encounter Procedures POCT urinalysis dipstick manually resulted Follow Up: Patient is to return in 4 weeks for routine OB appointment. Documented by Zita Borrego LPN on behalf of: Rocio Lozano DO documented in this encounter [facility] 08-10-2024 History of Presen t illness Narrative Reason for Appointment: Patient ID: Alondra Beaver is a 28 y.o. female who presents [...] Name Age of Onset Hypothyroidism Mother Esmer Felixp Polycystic ovary syndrome Mother Esmer Walp Thyroid [...] or undercooked meat, and stay away from [facility]. Patient has also been advised to not change litter boxes and eat 6 small meals a day. Patient has been consulted regarding the do's and don'ts of . Patient was given labs and all questions and concerns were answered. Patient was given [place] labs to be completed with Hgb A1C. Follow Up: Patient is to return in 4 weeks for routine OB appointment. Follow Up: Patient is to have labs drawn at directed and return to office for initial OB appointment with provider. Patient may call office as needed with any concerns or questions. Nurse Visit Completed by: Domenica Jacinto LPN documented in this encounter [facility] 07-11-2024 History of Presen t illness Narrative Name: Alondra Beaver Date/Time of Service:07/11/2024 10:03 AM :1995 Age: 28 y.o. Chief Complaint Chief Complaint Patient presents with Initial Visit Nurse Visit Alondra Beaver is a 28 y.o. at 9w0d with [...] Gilda Sanches Colon cancer Paternal Grandfather Skyler Felixp Cancer [...] 10:03 AM documented in this encounter [facility] 05-16-2024 History of Presen t illness Narrative Images from the original note were not included. Attila Bundy MD Obstetrics and Gynecology Patient: Alondra Beaver : 1995 (28 y.o.) Exam Date: 05/16/2024 Reason for Visit - Chief Complaint Patient presents with Follow-up Follow up for Amenorrhea, missed menses, and family planning. Stopped [employer] in 10/2023. 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 Exam conducted with a leather tooler present. Assessment/Plan ICD-10-CM 1. Amenorrhea N91.2 2. [...] the process. documented in this encounter [facility] 05-16-2024 Instructions Atitla Bundy MD - 05/16/2024 12:30 PM EST [...] infertility test. documented in this encounter [facility] 02-08-2024 History of Presen t illness Narrative Images from the original note were not included. Attila Bundy MD Obstetrics and Gynecology Patient: Alondra Beaver : 1995 (28 y.o.) Yearly Wellness Exam [...] 1 year documented in this encounter [facility] 05-12-2023 Evaluation note Encounter Date Diagnosis [...] and trigger point injections can be done. [email or web address] Other 10-18-2023 Evaluation note* Encounter Date Diagnosis Assessment Notes Treatment Notes Treatment Clinical Notes Feb, Encounter to establish care (ICD-10 - Z76.89) Patient appears to be in good health upon examination. She is here to establish care for annual physcial for her employment. 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 Feb, Wellness examination (ICD-10 - Z00.00) [...] Stress test ordered to rule out abnormalities. [email or web address] Other Evaluation noteNo assessment information available [facility] Work Phone: Evaluation note* Diagnosis Amenorrhea- Primary [...] tolerance test [facility] [...] Date Medical History Left elbow dislocation 2011 [email or web address] Other Summary Purpose Family History No Family [...] content) DATE CREATED AUTHOR 07/30/2021 [facility] DATE CREATED AUTHOR AUTHOR'S ORGANIZ ATION 05/24/2023 [facility] DATE CREATED AUTHOR AUTHOR'S ORGANIZ ATION 02/20/2024 [facility] DATE CREATED AUTHOR AUTHOR'S ORGANIZ ATION 04/23/2024 [facility] DATE CREATED AUTHOR AUTHOR'S ORGANIZ ATION 01/03/2025 [facility] EPIC REASON FOR VISIT (unrecogniz ed section and content) Reason Comments Gynecologic Exam Reason Comments Follow-up Reason Comments Initial Visit Nurse Visit Reason Comments Amenorrhea Reason Comments Routine Visit Care Teams (unrecognized sec tion and content) Team Status: Inactive Member Role Status Dates Lisandro Buitrago DO Attending Provider Active Insurance Sales Assistant Relationship Specialty Start Date End Date Unallocated, Jordy Horn MD [facility] [address] [facility] [address] PCP - General Family Medicine 06/23/23 Insurance Sales Assistant Relationship Specialty Start Date End Date Unallocated, Jordy oHrn MD [facility] [address] [place] [address] PCP - General Family Medicine 06/23/23 Insurance Sales Assistant Relationship Specialty Start Date End Date Unallocated, Jordy Horn MD [facility] [address] [place] [address] PCP - General Family Medicine 06/23/23 Insurance Sales Assistant Relationship Specialty Start Date End Date Unallocated, Jordy Horn MD [facility] [address] [facility] [place] [address] PCP - General Family Medicine 06/23/23 Insurance Sales Assistant Relationship Specialty Start Date End Date Unallocated, Jordy Horn MD [facility] [address] [facility] [place] [address] PCP - General Family Medicine 06/23/23 Insurance Sales Assistant Relationship Specialty Start Date End Date Unallocated, Jordy Horn MD [facility] [address] [facility] [place] [address] PCP - General Family Medicine 06/23/23 Insurance Sales Assistant Relationship Specialty Start Date End Date Unallocated, Jordy Horn MD [facility] [address] [place] [address] PCP - General Family Medicine 06/23/23 Insurance Sales Assistant Relationship Specialty Start Date End Date Unallocated, Jordy Horn MD [facility] [address] [facility] [place] [address] PCP - General Family Medicine 06/23/23 Insurance Sales Assistant Relationship Specialty Start Date End Date Unallocated, Jordy Horn MD [address] [facility] [place] [address] PCP - General Family Medicine 06/23/23 Insurance Sales Assistant Relationship Specialty Start Date End Date Unallocated, Jordy Horn MD [address] [place] [address] PCP - General Family Medicine 06/23/23 Insurance Sales Assistant Relationship Specialty Start Date End Date Unallocated, Jordy Horn MD [address] [place] [address] PCP - General Family Medicine 06/23/23 Goals [...] BE BASED ON THE PRIMARY CLINICAL RECORDS. [facility]. provides no warranty or guarantee of the accuracy or completeness of information in this document.
== END 2025-01-08 11:57 | disposition home or self-care (01) ==
LOC: US 11:56
PROVIDERS: PCP Family Medicine; Visit Provider Obstetrics & Gynecology
DX: O28.8 Other abnormal findings on antenatal screening of mother (principal); O26.893 Other specified pregnancy related conditions, third trimester; Z3A.33 33 weeks gestation of pregnancy
CPT/HCPCS: 59025; 76818

== ENCOUNTER 2025-01-08 12:00 | Outpatient (OUT) | payer OTHER, SELFPAY ==
--- OUTSIDE RECORDS SUMMARY | 2025-01-08 12:04 | XMS_ITS | CCD ---
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 Name Role Phone DR JANES GARCIA Admitting Unavailable JOSE, DR JANES Escobar Attending Unavailable REQUEST, NONE LISTED Primary Care Unavaila verna GARCIA, DR JANES Escobar Consulting Unavailable Lisandro Buitrago Unavailable DO Lisandro Buitrago Attending Provider [phone] Tyrell Stiles Unavailable Lisandro Buitrago Attending [...] 08/21/2024 08/29/2024 Discontinued 21 day ethinyl estradiol 0.910297 mg/hr / etonogestrel 0.005 mg/hr vaginal system [...] US OB BPP W NON-STRESS on 01-04-[address] [address] Ultrasound Report Signed Patient: ALONDRA BEAVER MR#: [id number] : 1995 Acct:[id number] Age/Sex: 29 / F ADM Date: 01/04/25 Loc: US Attending Dr: Rocio Lozano D.O. Ordering Physician: Rocio Lozano D.O. Date of Service: 01/04/25 Procedure(s): US OB BPP w non-stress Accession Number(s): [id number] cc: Rocio Lozano D.O.; Zita Alanis M.D. [place] [address] Patient Name: ALONDRA BEAVER MRN: [id number] date: 1995 Sex: F Assigned Patient Location: [facility] Current Patient Location: Accession/Order Number: [id number] Exam Date: 01/04/2025 07:10 Report Date: 01/04/2025 10:27 At the request of: ROCIO LOZANO DO Procedure: US OB BPP w non-stress BIOPHYSICAL PROFILE: CLINICAL INFORMATION: ZULMA BORDERLINE LOW O28.8 COMPARISON: None There is a single live intrauterine gestation in cephalic presentation. The reported gestational age is 32 weeks 3 days. The heart rate [id number] beats per minute. FINDINGS: TONE: 1 or [...] Lu M.D. 01/04/2025 10:27 AM Dictation Location: [place] [address] Electronically authenticated by: [id number] Y Date: 01/04/2025 10:27 Dictated By: Zita Lu M.D. Signed By: 01/04/25 1030 DD/ 1027 TD/TT: Overhead Foreman: [facility] Radiology, Radiologist, - 01/04/2025 [place] [address] Ultrasound Report Signed Patient: ALONDRA BEAVER MR#: [id number] : 1995 Acct:[id number] Age/Sex: 29 / F ADM Date: 01/04/25 Loc: US Attending Dr: Rocio Lozano D.O. Ordering Physician: Rocio Lozano D.O. Date of Service: 01/04/25 Procedure(s): US OB BPP w non-stress Accession Number(s): [id number] cc: Rocio Lozano D.O.; Zita Alanis M.D. [place] [id number] Patient Name: ALONDRA BEAVER MRN: [facility]:[id number] date: 1995 Sex: F Assigned Patient Location: [facility] Current Patient Location: Accession/Order Number: [id number] Exam Date: 01/04/2025 07:10 Report Date: 01/04/2025 10:27 At the request of: ROCIO LOZANO DO Procedure: US OB BPP w non-stress BIOPHYSICAL PROFILE: CLINICAL INFORMATION: ZULMA BORDERLINE LOW O28.8 COMPARISON: None There is a single live intrauterine gestation in cephalic presentation. The reported gestational age is 32 weeks 3 days. The heart rate [id number] beats per minute. FINDINGS: TONE: 1 or [...] Lu M.D. 01/04/2025 10:27 AM Dictation Location: [employer] Electronically authenticated by: [id number] Y Date: 01/04/2025 10:27 Dictated By: Zita Lu M.D. Signed By: 01/04/25 1030 DD/ 1027 TD/TT: Overhead Foreman: [facility] Radiology Study observation (narrative) [facility] US OB BPP W NON-STRESS Ordered By: Radiologist Radiology on 01-04-2025 [facility] Work Phone: Urinalysis macro (dipstick) panel (U)on 01-02-2025 Bilirubin, UA Negative Negative - 4(70) +++ mg/dL [facility] Blood, UA Negative Negative - 50 Mark/mcL [facility] Clarity, UA Clear [facility] Color, UA Yellow [facility] Glucose, UA Negative Negative - 2000(110) ++++ mg/dL [facility] Interpretation and review of laboratory results Abnormal [facility] Ketones, UA Negative Negative - 160(16) ++++ mg/dL [facility] Leukocytes, UA Positive Negative - 500+++ Mahsa/mcL [facility] Comment on above: Trace Nitrite, UA Negative Negative - Positive [facility] pH, UA 6.5 5 - 9 [facility] Protein, UA Negative Negative - 2000(20) ++++ mg/dL [facility] Spec Grav, UA 1.015 1 - 1.03 [facility] Urobilinogen, UA 0.2 0.2 - 12 mg/dL [facility] US OB FOLLOW UP TRANSABDOMIN [...] Negative Negative - 4(70) +++ mg/dL [facility] Blood, UA Negative Negative - 50 Mark/mcL [facility] Clarity, UA Clear [facility] Color, UA Yellow [facility] Glucose, UA Negative Negative - 2000(110) ++++ mg/dL [facility] Interpretation and review of laboratory results Abnormal [facility] Ketones, UA Negative Negative - 160(16) ++++ mg/dL [facility] Leukocytes, UA 3+ Negative - 500+++ Mahsa/mcL [facility] pH, UA 6 5 - 9 [facility] Protein, UA Negative Negative - 2000(20) ++++ mg/dL [facility] Spec Grav, UA 1.015 1 - 1.03 [facility] Urobilinogen, UA 0.2 0.2 - 12 mg/dL [facility] GLUCOSE TOLERANCE 3 HOURon 0 11-28-2024 GLUCOSE TOLERANCE 3 HOUR mg/dL [facility] Comment on above: GLU FAST 93 (<95) Co l: 11/28/24 0641 GLU 1HR 149 (<180) Col: 11/28/24 0743 GLU 2HR 118 (<155) Col: 11/28/24 0843 GLU 3HR 81 (<140) Col: 11/28/[address] [facility] ALL CBC WITH AUTO DIFFon BASOPHILS ABSOLUTE AUTO 0 [facility] Basophils/100 WBC (Bld) 0.4 % 0.2 - 2.0 % [facility] Eosinophils/100 WBC (Bld) 1.2 % 0.9 - 7.0 % [facility] Erythrocyte distribution width (RBC) [Ratio] 13 % 11.0 - 15.0 % [facility] Hematocrit (Bld) [Volume fraction] 35.6 % Low 36.0 - 48.0 % [facility] Hemoglobin (Bld) [Mass/Vol] 11.9 g/dL Low 12.0 - 16.0 g/dL [facility] IMMATURE GRANULOCYTES ABS AUTO 0.[address] [facility] Immature granulocytes/100 WBC (Bld) 1.2 % High 0.0 - 0.5 % [facility] Interpretation and review of laboratory results Abnormal [facility] LYMPHOCYTES ABSOLUTE AUTO 1.3 [facility] Lymphocytes/100 WBC (Bld) 11.6 % Low 20.5 - 60.0 % [facility] MCH (RBC) [Entitic mass] 30.9 pg 26.7 - 34.[address] [facility] MCHC (RBC) [Mass/Vol] 33.4 g/dL 29.9 - 35.2 g/dL [facility] MCV (RBC) [Entitic vol] 92.5 fL 81.0 - 99.[address] [facility] MONOCYTES ABSOLUTE AUTO 0.5 [facility] Monocytes/100 WBC (Bld) 4.9 % 1.7 - 12.0 % [facility] NEUTROPHILS ABSOLUTE AUTO 8.[address] [facility] Neutrophils/100 WBC (Bld) 80.7 % High 43.0 - 75.0 % [facility] Platelet mean volume (Bld) [Entitic vol] 10.5 fL 9.5 - 13.[address] [facility] TBH EO # 0.1 [facility] TB PLT [address] [facility] RBC 3.[address] [facility] TB WBC 10.9 [facility] Urinalysis macro (dipstick) panel (U)on 11-22-2024 Bilirubin, UA Negative Negative - 4(70) +++ mg/dL [facility] Blood, UA Negative Negative - 50 Mark/mcL [facility] Clarity, UA Clear [facility] Color, UA Yellow [facility] Glucose, UA Negative Negative - 1999(110) ++++ mg/dL [facility] Interpretation and review of laboratory results Abnormal [facility] Ketones, UA Negative Negative - 160(16) ++++ mg/dL [facility] Leukocytes, UA Moderate Negative - 500+++ Mahsa/mcL [facility] Nitrite, UA Negative Negative - Positive [facility] pH, UA 6 5 - 9 [facility] Protein, UA Negative Negative - 1999(20) ++++ mg/dL [facility] Spec Grav, UA 1.01 1 - 1.03 [facility] Urobilinogen, UA 0.2 0.2 - 12 mg/dL [facility] Urinalysis macro (dipstick) panel (U)on 10-26-2024 Bilirubin, UA Negative Negative - 4(70) +++ mg/dL [facility] Blood, UA Negative Negative - 50 Mark/mcL [facility] Clarity, UA Clear [facility] Color, UA Yellow [facility] Glucose, UA Negative Negative - 1999(110) ++++ mg/dL [facility] Interpretation and review of laboratory results Normal [facility] Ketones, UA Negative Negative - 160(16) ++++ mg/dL [facility] Leukocytes, UA Negative Negative - 500+++ Mahsa/mcL [facility] Nitrite, UA Negative Negative - Positive [facility] pH, UA 6.5 5 - 9 [facility] Protein, UA Negative Negative - 1999(20) ++++ mg/dL [facility] Spec Grav, UA 1.02 1 - 1.03 [facility] Urobilinogen, UA 0.2 0.2 - 12 mg/dL [facility] US OB 14+ WEEKS ANATOMY [...] II, MD, PHD at 27-Oct-2024 06:14:52 AM [facility] Normal Not Available Comment on above: Order Comment: US OB ANATOMY SINGLE W US OB CERVICAL LENGTH Estimated Date of Delivery: 02/26/25 Gestational Age as of 09/28/2024: 18w3d BOX TESTon 08-29-2024 BOX TEST SENT OUT [employer] [facility] [employer] BOX[address] [employer] [facility] [employer] [address] 08-29-24 [facility] [employer] BOX [facility] Urinalysis macro (dipstick) panel (U)on 08-29-2024 Bilirubin, UA Negative Negative - 4(70) +++ mg/dL [facility] Blood, UA Negative Negative - 50 Mark/mcL [facility] Clarity, UA Clear [facility] Color, UA Yellow [facility] Glucose, UA Negative Negative - 1999(110) ++++ mg/dL [facility] Interpretation and review of laboratory results Normal [facility] Ketones, UA Negative Negative - 160(16) ++++ mg/dL [facility] Leukocytes, UA Negative Negative - 500+++ Mahsa/mcL [facility] Nitrite, UA Negative Negative - Positive [facility] pH, UA 6 5 - 9 [facility] Protein, UA Negative Negative - 2000(20) ++++ mg/dL [facility] Spec Grav, UA 1.02 1 - 1.03 [facility] Urobilinogen, UA 0.2 0.2 - 12 mg/dL [facility] HCG ( test) Ql (U)o n 08-10-2024 Interpretation and review of laboratory results Abnormal [facility] Preg Test, Ur Positive Negative [facility] US OB < 14 WEEKS [...] II, MD, PHD at 11-Aug-2024 08:40:37 AM [facility] Normal Not Available Comment on above: Order Comment: US OB Patient's last menstrual period was 05/09/2024 (exact date). Urinalysis macro (dipstick) panel (U)on 08-10-2024 Bilirubin, UA Negative Negative - 4(70) +++ mg/dL [facility] Blood, UA Negative Negative - 50 Mark/mcL [facility] Clarity, UA Clear [facility] Color, UA Yellow [facility] Glucose, UA Negative Negative - 1999(110) ++++ mg/dL [facility] Interpretation and review of laboratory results Abnormal [facility] Ketones, UA Positive Negative - 160(16) ++++ mg/dL [facility] Comment on above: 40 Leukocytes, UA Negative Negative - 500+++ Mahsa/mcL [facility] Nitrite, UA Negative Negative - Positive [facility] pH, UA 5.5 5 - 9 [facility] Protein, UA Negative Negative - 1999(20) ++++ mg/dL [facility] Spec Grav, UA 1.02 1 - 1.03 [facility] Urobilinogen, UA 0.2 0.2 - 12 mg/dL [facility] Outside Recordson 04-20-2024 Outside Records [id number] 03-31-2024 Outside Records [id number] 6#1.00[facility] Consent Formson 02-18-2024 Consent Forms [id number] 3D#1.00[facility] Cytology Cervical or vaginal smear or scraping studyon 02-08-2024 [facility] HCG ( test) Ql (U)o n 02-08-2024 Interpretation and review of laboratory results Normal [facility] Preg Test, Ur Negative [facility] CMP Standardon 02-03-2024 eGFR Non AA >60 Invalid Interpretation Code [facility] Comment on above: Performed By: #### 1 [id number], [id number], 2735496, 8977900, 2262638, 5236625, 4716528 #### [facility] (DEFAULT) [address] [place] [address]40 eGFR AA >60 Invalid Interpretation Code [facility] Comment on above: Performed By: #### 1 [id number], [id number], 4074734, 8742442, 6506300, 8503014, 0942872 #### [facility] (DEFAULT) [address] [place] [address] 30082 Albumin [Mass/Vol] 4.4 g/dL Normal 3.5-5.0 [facility] Comment on above: Performed By: #### 1 [id number], [id number], 4906385, 7367150, 0947699, 7371072, 9611002 #### [facility] (DEFAULT) [address] [place] [address] Albumin/Globulin [Mass ratio] 1.4 {ratio} Normal 1.4-2.6 [facility] Comment on above: Performed By: #### 1 [id number], 7867940455, 5961593, 2932841, 1642021, 7260293, 9405657 #### [facility] (DEFAULT) [address] [place] [address] 82835 Alk Phos 67 IU/L Normal 32-91 [facility] Comment on above: Performed By: #### 1 [id number], 5064886181, 6338792, 7782062, 4392465, 2355317, 8422462 #### [facility] (DEFAULT) [address] [place] [address] 38511 ALT [Catalytic activity/Vol] 19.0 U/L Normal 14.0-54.0 [facility] Comment on above: Performed By: #### 1 [id number], 7039817183, 1029374, 0301462, 2944688, 0496933, 7415702 #### [facility] (DEFAULT) [address] [place] [address] 94836 Anion gap [Moles/Vol] 10.8 mmol/L Normal 5.0-19.0 [facility] Comment on above: Performed By: #### 1 [id number], 3679248689, 3580998, 3699919, 8214465, 7951946, 3193455 #### [facility] (DEFAULT) [address] [place] [address] 52019 AST [Catalytic activity/Vol] 21 U/L Normal 15-41 [facility] Comment on above: Performed By: #### 1 [id number], 7567888191, 2195015, 9098455, 6811945, 8339150, 5336721 #### [facility] (DEFAULT) [address] [place] [address] 25596 Bili Total 0.7 mg/dL Normal 0.3-1.2 [facility] Comment on above: Performed By: #### 1 [id number], 9393073023, 0719020, 3213790, 5874339, 5684445, 5183696 #### [facility] (DEFAULT) [address] [place] [address] 18892 Calcium [Mass/Vol] 8.9 mg/dL Normal 8.9-10.3 [facility] Comment on above: Performed By: #### 1 [id number], 9165094200, 2291915, 6349940, 8787094, 0390937, 6950602 #### [facility] (DEFAULT) [address] [place] [address] 31088 Chloride [Moles/Vol] 100 mmol/L Low 101-111 [facility] Comment on above: Performed By: #### 1 [id number], 0414917347, 3469536, 5411519, 9768908, 9859212, 1284201 #### [facility] (DEFAULT) [address] [place] [address] 72480 CO2 [Moles/Vol] 26 mmol/L Normal 21-32 [facility] Comment on above: Performed By: #### 1 512109999, 7811416363, 7904019, 8885841, 9988079, 2237192, 1951606 #### [facility] (DEFAULT) [address] [place] [address] 71528 Creatinine [Mass/Vol] 0.86 mg/dL Normal 0.60-1.30 [facility] Comment on above: Performed By: #### 1 [id number], 0864388222, 0410542, 3847978, 8059842, 6605907, 7352981 #### [facility] (DEFAULT) [address] [place] [address] 20779 Globulin (S) [Mass/Vol] 3.1 g/dL Normal 1.5-4.3 [facility] Comment on above: Performed By: #### 1 417703039, 3638158871, 8753764, 1254183, 1961125, 2571318, 5177236 #### [facility] (DEFAULT) [address] [place] [address] 84999 Glucose [Mass/Vol] 90.0 mg/dL Normal 74.0-118.0 [facility] Comment on above: Performed By: #### 1 [id number], 8546906330, 0016239, 9300640, 1264330, 4966625, 9752561 #### [facility] (DEFAULT) [address] [place] [address] 88047 Osmolality 267 mOsm/L Invalid Interpretation Code [facility] Comment on above: Performed By: #### 1 [id number], 2084063233, 2708960, 0202815, 6061874, 8500038, 4829042 #### [facility] (DEFAULT) [address] [place] [address] 73846 Potassium [Moles/Vol] 3.8 mmol/L Normal 3.6-5.1 [facility] Comment on above: Performed By: #### 1 [id number], 9948359247, 8515373, 2525436, 7154646, 4168962, 3278914 #### [facility] (DEFAULT) [address] [place] [address] 58282 Protein [Mass/Vol] 7.5 g/dL Normal 6.5-8.1 [facility] Comment on above: Performed By: #### 1 115032527, 7771386805, 4526106, 3947219, 1590798, 7423656, 3621527 #### [facility] (DEFAULT) [address] [place] [address] 19585 Sodium [Moles/Vol] 133.0 mmol/L Low 136.0-144.0 [facility] Comment on above: Performed By: #### 1 898739704, 7351690990, 2209002, 6405093, 1531251, 6273231, 6209926 #### [facility] (DEFAULT) [address] [place] [address] 00143 Urea nitrogen [Mass/Vol] 17 mg/dL Normal - [facility] Comment on above: Performed By: #### 1 181928163, 5762185516, 5172499, 3524129, 3815033, 2070130, 2861699 #### [facility] (DEFAULT) [address] [place] [address] 45389 Urea nitrogen/Creatinine [Mass ratio] 19.7 mg/mg High 4.6-16.2 [facility] Comment on above: Performed By: #### 1 336100681, 2583027790, 8872523, 5375908, 5445144, 8871649, 6418413 #### [facility] (DEFAULT) [address] [place] [address] 53914 GGTon 02-03-2024 Gamma glutamyl transferase [Catalytic activity/Vol] 20.0 U/L Normal 7.0-50.0 [facility] Comment on above: Performed By: #### 1 [id number], 3816131699, 7358726, 2507494, 7281033, 7343770, 2358763 #### [facility] (DEFAULT) [address] [place] [address] 62394 Iron Levelon 02-03-2024 Iron [Mass/Vol] 93.0 ug/dL Normal 28.0-170.0 [facility] Comment on above: Performed By: #### 1 320999358, 0326320764, 0116792, 3734773, 4254148, 2682362, 5436397 #### [facility] (DEFAULT) [address] [place] [address] 64946 LDHon 02-03-2024 LDH 126.0 IU/L Normal 98.0-192.0 [facility] Comment on above: Performed By: #### 1 210473279, 0898836250, 5634730, 1252584, 8102080, 5903001, 9907469 #### [facility] (DEFAULT) [address] [place] [address] 63154 Lipid Panel Standardon 02-02 Cholesterol [Mass/Vol] 214.0 mg/dL High 66.0-200.0 [facility] Comment on above: Performed By: #### 1 [id number], 6882669393, 0325223, 8401582, 5179437, 7341384, 8176500 #### [facility] (DEFAULT) [address] [place] [address] 56558 Cholesterol in HDL [Mass/Vol] 64 mg/dL Normal 40-71 [facility] Comment on above: Performed By: #### 1 896097725, 0974065951, 3352481, 6665752, 8831671, 6235768, 8882455 #### [facility] (DEFAULT) [address] [place] [address] 14984 Cholesterol in LDL [Mass/Vol] 144 mg/dL High 1-100 [facility] Comment on above: Performed By: #### 1 [id number], 5587764735, 0714038, 0138207, 8004961, 3777468, 3101320 #### [facility] (DEFAULT) [address] [place] [address] 33851 Cholesterol.total/C holesterol in HDL [Mass ratio] 3.3 {ratio} Normal 0.0-4.5 [facility] Comment on above: Performed By: #### 1 455725641, 9415405509, 7982756, 9349419, 2315563, 7442771, 9617086 #### [facility] (DEFAULT) [address] [place] [address] 94137 Triglyceride [Mass/Vol] 28.0 mg/dL Normal 0.0-150.0 [facility] Comment on above: Performed By: #### 1 [id number], 0317268710, 0098059, 4387021, 6849107, 4278282, 2680494 #### [facility] (DEFAULT) [address] [place] [address] VLDL. 6 mg/dL Normal 5-40 [facility] Comment on above: Performed By: #### 1 [id number], 0783003707, 2001375, 4487214, 2084199, 1024448, 0108782 #### [facility] (DEFAULT) [address] [place] [address] 76001 Phoson 02-03-2024 Phosphate [Mass/Vol] 2.9 mg/dL Normal 2.5-4.6 [facility] Comment on above: Performed By: #### 1 140239740, 3125144901, 5860343, 0007489, 0404853, 2113531, 6260144 #### [facility] (DEFAULT) [address] [place] [address] 38934 Uric Acidon 02-03-2024 Urate [Mass/Vol] 4.0 mg/dL Normal 2.6-8.0 [facility] Comment on above: Performed By: #### 1 [id number], 3447567643, 2567354, 5079652, 6495231, 6586246, 4778818 #### [facility] (DEFAULT) [address] [place] [address] 47113 XR chest 2V*on 03-02-2023 XR chest 2V* [facility] [address] XRay Report Signed Patient: Alondra Sanches MR#: [id number] : 1995 Acct:[id number] Age/Sex: 27 / F ADM Date: 03/02/23 [facility]: Lisandro Buitrago DO Copies to: Lisandro Buitrago DO Ordering Provider: Lisandro Buitrago DO Date of Service: 03/02/23 XR/XR shoulder LT min 2V*: Left shoulder pain ([id number]) XR/XR chest 2V*: Left shoulder pain;Chest pain [...] Puentes Jr., D.O.03/02/2023 4:13 PM Dictation Location: [facility] Transcribed By: [facility] 03/02/231612 Dictated By: Terry Puentes Jr DO 03/02/231611 Signed By: 03/02/231612 Normal [facility] CBC W MANUAL DIFFon 07-29-19 22 ATYPICAL LYMPH # Normal [facility] Comment on above: Performed By: #### C GARRET #### [facility] [address] [place] [address] Dr. Susannah Hopkins ATYPICAL LYMPH % Normal [facility] Comment on above: Performed By: #### C GARRET #### [facility] [address] [place] [address] Dr. Susannah Hopkins BAND # 0.3 103/ul Normal 0.0-0.3 [facility] Comment on above: Performed By: #### C GARRET #### [facility] [address] [place] [address] Dr. Susannah Hopkins BAND % 2 % Normal 0-5 [facility] Comment on above: Performed By: #### C BCMAN #### [facility] [address] [place] [address] Dr. Susannah Hopkins BASOM # 0.00 103/ul Normal 0.00-0.10 [facility] Comment on above: Performed By: #### C BCMAN #### [facility] [address] [place] [address] Dr. Susannah Hopkins BASOM % 0.0 % Critically low 0.2-2.0 [facility] Comment on above: Performed By: #### C GARRET #### [facility] [address] [place] [address] [address] Susannah Hopkins BLAST # Normal [facility] Comment on above: Performed By: #### C GARRET #### [facility] [address] [place] [address] [address] Susannah Hopkins BLAST % Normal [facility] Comment on above: Performed By: #### C BCOCTAVIANO #### [facility] [address] [place] [address] [address] Susannah Hopkins CORRECTED WBC Normal 4.0-11.0 [facility] Comment on above: Performed By: #### C BCOCTAVIANO #### [facility] [address] [place] [address] [address] Susannah Hopkins EOS # 0.00 103/ul Normal 0.00-0.70 [facility] Comment on above: Performed By: #### C GARRET #### [facility] [address] [place] [address] Dr. Susannah Hopkins EOS% 0.0 % Critically low 0.9-7.0 [facility] Comment on above: Performed By: #### C GARRET #### [facility] [address] [place] [address] Dr. Susannah Hopkins HCT 46.0 % Normal 36.0-48.0 [facility] Comment on above: Performed By: #### C GARRET #### [facility] [address] [place] [address] Dr. Susannah Hopkins HGB 15.7 g/dl Normal 12.0-16.0 [facility] Comment on above: Performed By: #### C BCOCTAVIANO #### [facility] [address] [place] [address] Dr. Susannah Hopkins LYMPHM # 0.69 103/ul Critically low 1.20-3.80 [facility] Comment on above: Performed By: #### C BCOCTAVIANO #### [facility] [address] [place] [address] Dr. Susannah Hopkins LYMPHM% 4.0 % Critically low 20.5-60.0 [facility] [facility] Comment on above: Performed By: #### C GARRET #### [facility] [address] [place] [address] Dr. Susannah Hopkins MCH 30.1 pg Normal 26.7-34.0 [facility] Comment on above: Performed By: #### C GARRET #### [facility] [address] [place] [address] Dr. Susannah Hopkins MCHC 34.1 g/dl Normal 29.9-35.2 [facility] Comment on above: Performed By: #### C GARRET #### [facility] [address] [place] [address] Dr. Susannah Hopkins MCV 88.3 fL Normal 81.0-99.0 [facility] Comment on above: Performed By: #### C GARRET #### [facility] [address] [place] [address] Dr. Susannah Hopkins METAMYELOCYTE # Normal [facility] Comment on above: Performed By: #### C GARRET #### [facility] [address] [place] [address] Dr. Susannah Hopkins METAMYELOCYTE % Normal [facility] Comment on above: Performed By: #### C GARRET #### [facility] [address] [place] [address] Dr. Susannah Hopkins MONOM# 1.20 103/ul Critically high 0.30-0.80 [facility] Comment on above: Performed By: #### Natty COMBS #### [facility] [address] [place] [address] Dr. Susannah Hopkins MONOM% 7.0 % Normal 1.7-12.0 [facility] Comment on above: Performed By: #### C GARRET #### [facility] [address] [place] [address] Dr. Susannah Hopkins MPV 9.8 fL Normal 9.5-13.5 [facility] Comment on above: Performed By: #### C GARRET #### [facility] [address] [place] [address] Dr. Susannah Hopkins MYELOCYTE # Normal [facility] Comment on above: Performed By: #### C GARRET #### [facility] [address] [address] [address] Susannah Hopkins MYELOCYTE % Normal [facility] Comment on above: Performed By: #### C BCMAN #### [facility] [address] [address] [address] Susannah Hopkins NRBC Normal [facility] Comment on above: Performed By: #### C BCOCTAVIANO #### [facility] [address] [address] [address] Susannah Hopkins PLT 278 103/ul Normal 150-450 [facility] Comment on above: Performed By: #### C BCOCTAVIANO #### [facility] [address] [address] [address] Susannah Hopkins RBC 5.21 106/ul Normal 4.20-5.40 [facility] Comment on above: Performed By: #### C BCOCTAVIANO #### [facility] [address] [address] [address] Susannah Hopkins RDW 11.7 % Normal 11.0-15.0 [facility] Comment on above: Performed By: #### C BCOCTAVIANO #### [facility] [address] [address] [address] Susannah Hopkins SEG # 14.96 103/ul Critically high 1.40-6.50 [facility] Comment on above: Performed By: #### C BCOCTAVIANO #### [facility] [address] [address] [address] Susannah Hopkins SEG % 87.0 % Critically high 43.0-75.0 [facility] Comment on above: Performed By: #### C BCMAN #### [facility] [address] [address] [address] Susannah Hopkins WBC 17.2 103/ul Critically high 4.0-11.0 [facility] Comment on above: Performed By: #### C BCMAN #### [facility] [address] [address] [address] Susannah Hopkins INFLUENZA A AND B AGon 07-28 INFLUANEGH SEE BELOW Normal [facility] Comment on above: Result Comment: Nega tive for Flu A protein angiten. Infection due to Flu A cannot be ruled out. Flu A angiten in the sample may be below the detection limit of the test. Performed By: #### I NFLUAB #### [facility] [address] [place] [address] Dr. Susannah Hopkins [facility] SEE BELOW Normal [facility] Comment on above: Result Comment: Nega tive for Flu B protein antigen. Infection due to Flu B cannot be ruled out. Flu B antigen in the sample may be below the detection limit of the test. Performed By: #### I NFLUAB #### [facility] [address] [place] [address] Dr. Susannah Hopkins INFLUENZA A AG Negative Normal NEGATIVE SEE COMMENT [facility] Comment on above: Performed By: #### I NFLUAB #### [facility] [address] [place] [address] Dr. Susannah Hopkins INFLUENZA B AG Negative Normal NEGATIVE SEE COMMENT [facility] Comment on above: Performed By: #### I NFLUAB #### [facility] [address] [place] [address] Dr. Susannah Hopkins INTERNAL CONTROLS Within Normal Limits Normal Within Normal Limits [facility] Comment on above: Performed By: #### I NFLUAB #### [facility] [address] [place] [address] Dr. Susannah Hopkins PREG HCG QUALon 07-28-2021 , QUAL Negative Normal NEGATIVE [facility] Comment on above: Performed By: #### P REG #### [facility] [address] [place] [address] Dr. Susannah Hopkins PROF 14(COMP METB)on 022 Albumin [Mass/Vol] 4.4 g/dL Normal 3.4-5.0 [facility] Comment on above: Performed By: #### C MP #### [facility] [address] [place] [address] Dr. Susannah Hopkins Albumin/Globulin [Mass ratio] 1.1 {ratio} Normal [facility] Comment on above: Performed By: #### C MP #### [facility] [address] [place] [address] Dr. Susannah Hopkins ALP [Catalytic activity/Vol] 71 U/L Normal 46-116 [facility] Comment on above: Performed By: #### C MP #### [facility] [address] [place] [address] Dr. Susannah Hopkins ALT [Catalytic activity/Vol] 19 U/L Normal 14-59 [facility] Comment on above: Performed By: #### C MP #### [facility] [address] [place] [address] Dr. Susannah Hopkins Anion gap [Moles/Vol] 15.1 mmol/L Normal [facility] Comment on above: Performed By: #### C MP #### [facility] [address] [place] [address] Dr. Susannah Hopkins AST [Catalytic activity/Vol] 23 U/L Normal 15-37 [facility] Comment on above: Performed By: #### C MP #### [facility] [address] [place] [address] Dr. Susannah Hopkins Bilirubin [Mass/Vol] 0.9 mg/dL Normal 0.2-1.3 [facility] Comment on above: Performed By: #### C MP #### [facility] [address] [place] [address] Dr. Susannah Hopkins Calcium [Mass/Vol] 9.5 mg/dL Normal 8.5-10.1 [facility] Comment on above: Performed By: #### C MP #### [facility] [address] [place] [address] Dr. Susannah Hopkins Chloride [Moles/Vol] 101 mmol/L Normal 98-107 [facility] Comment on above: Performed By: #### C MP #### [facility] [address] [place] [address] Dr. Susannah Hopkins CO2 [Moles/Vol] 23.8 mmol/L Normal 22.0-30.0 [facility] Comment on above: Performed By: #### C MP #### [facility] [address] [place] [address] Dr. Susannah Hopkins Creatinine [Mass/Vol] 1.04 mg/dL Normal 0.52-1.04 [facility] Comment on above: Performed By: #### C MP #### [facility] [address] [address] [address] Susannah Hopkins EGFR-AF BULGARIAN >60 Normal >=60 [facility] Comment on above: Performed By: #### C MP #### [facility] [address] [address] [address] Susannah Hopkins EGFR-NON AF BULGARIAN >60 Normal >=60 [facility] Comment on above: Performed By: #### C MP #### [facility] [address] [address] [address] Susannah Hopkins Globulin (S) [Mass/Vol] 3.9 g/dL Normal [facility] Comment on above: Performed By: #### C MP #### [facility] [address] [address] [address] Susannah Hopkins Glucose [Mass/Vol] 157 mg/dL Critically high 74-106 [facility] Comment on above: Performed By: #### C MP #### [facility] [address] [address] [address] Susannah Hopkins Potassium [Moles/Vol] 3.9 mmol/L Normal 3.4-5.0 [facility] Comment on above: Performed By: #### C MP #### [facility] [address] [address] [address] Susannah Hopkins Protein [Mass/Vol] 8.3 g/dL Critically high 6.1-8.2 [facility] Comment on above: Performed By: #### C MP #### [facility] [address] [address] [address] Susannah Hopkins Sodium [Moles/Vol] 136 mmol/L Critically low 137-145 [facility] Comment on above: Performed By: #### C MP #### [facility] [address] [address] [address] Susannah Hopkins Urea nitrogen [Mass/Vol] 20.0 mg/dL Critically high 7.0-18.0 [facility] Comment on above: Performed By: #### C MP #### [facility] [address] [place], [place] [address] Dr. Susannah Hopkins Urea nitrogen/Creatinine [Mass ratio] 19.2 mg/mg Normal [facility] Comment on above: Performed By: #### C MP #### [facility] [address] [place], [place] [address] Dr. Susannah Hopkins Vital Signs Date Time Vital Sign Value Performing Clinician Facility 01-02-2025 08:26-0400 Body mass index (BMI) [Ratio] 28.96 kg/m2 Rocio Blake DO Work Phone: [facility] 01-02-2025 08:26-0400 Body weight 74.16 kg Rocio Blake DO Work Phone: [facility] 01-02-2025 08:26-0400 Diastolic blood pressure 76 mm[Hg] Rocio Blake DO Work Phone: [facility] 01-02-2025 08:26-0400 Systolic blood pressure 120 mm[Hg] Rocio Blake DO Work Phone: [facility] 12-19-2024 09:04-0400 Body mass index (BMI) [Ratio] 28.7 kg/m2 Nadine DE JESUS Work Phone: [facility] 12-19-2024 09:04-0400 Body weight 73.48 kg Nadine DE JESUS Work Phone: [facility] 12-19-2024 09:04-0400 Diastolic blood pressure 78 mm[Hg] Nadine Galvan PA Work Phone: [facility] 12-19-2024 09:04-0400 Systolic blood pressure 104 mm[Hg] Nadine DE JESUS Work Phone: [facility] 12-05-2024 09:23-0400 Body mass index (BMI) [Ratio] 28.52 kg/m2 Rocio Blake DO Work Phone: [facility] 12-05-2024 09:23-0400 Body weight 73.03 kg Rocio Blake DO Work Phone: [facility] 12-05-2024 09:23-0400 Diastolic blood pressure 76 mm[Hg] Rocio Blake DO Work Phone: [facility] 12-05-2024 09:23-0400 Systolic blood pressure 120 mm[Hg] Rocio Blake DO Work Phone: [facility] 11-22-2024 08:52-0400 Body mass index (BMI) [Ratio] 28.19 kg/m2 Nadine DE JESUS Work Phone: [facility] 11-22-2024 08:52-0400 Body weight 72.18 kg Nadine DE JESUS Work Phone: [facility] 11-22-2024 08:52-0400 Diastolic blood pressure 76 mm[Hg] Nadine DE JESUS Work Phone: [facility] 11-22-2024 08:52-0400 Systolic blood pressure 120 mm[Hg] Nadine Galvan PA Work Phone: [facility] 10-26-2024 12:05-0400 Body mass index (BMI) [Ratio] 26.93 kg/m2 Rocio Blake DO Work Phone: [facility] 10-26-2024 12:05-0400 Body weight 68.95 kg Rocio Blake DO Work Phone: [facility] 10-26-2024 12:05-0400 Diastolic blood pressure 68 mm[Hg] Rocio Blake DO Work Phone: [facility] 10-26-2024 12:05-0400 Systolic blood pressure 120 mm[Hg] Rocio Blake DO Work Phone: [facility] 08-29-2024 14:34-0400 Body mass index (BMI) [Ratio] 25.65 kg/m2 Rocio Blake DO Work Phone: [facility] 08-29-2024 14:34-0400 Body weight 65.68 kg Rocio Blake DO Work Phone: [facility] 08-29-2024 14:34-0400 Diastolic blood pressure 72 mm[Hg] Rocio Blake DO Work Phone: [facility] 08-29-2024 14:34-0400 Systolic blood pressure 120 mm[Hg] Rocio Blake DO Work Phone: [facility] 08-10-2024 14:55-0400 Body height [address] [facility] 08-10-2024 14:55-0400 Body mass index (BMI) [Ratio] 25.18 kg/m2 [facility] Nurse [facility] 08-10-2024 14:55-0400 Body weight 64.47 kg [facility] Nurse [facility] 08-10-2024 14:55-0400 Diastolic blood pressure 76 mm[Hg] [facility] Nurse [facility] 08-10-2024 14:55-0400 Systolic blood pressure 120 mm[Hg] [facility] Nurse [facility] 05-16-2024 12:44-0500 Body weight 65.32 kg Attila Bundy MD Work Phone: [facility] 05-16-2024 12:44-0500 Diastolic blood pressure 78 mm[Hg] Attila Bundy MD Work Phone: [facility] 05-16-2024 12:44-0500 Systolic blood pressure 120 mm[Hg] Attila Bundy MD Work Phone: [facility] 02-08-2024 15:08-0400 Body weight 66.22 kg Attila Bundy MD Work Phone: [facility] 02-08-2024 15:08-0400 Diastolic blood pressure 68 mm[Hg] Attila Bundy MD Work Phone: [facility] 02-08-2024 15:08-0400 Systolic blood pressure 130 mm[Hg] Attila Bundy MD Work Phone: [facility] 05-12-2023 07:30-0500 Body height 158.75 cm Tyrell Stiles Other [employer] Other 05-12-2023 07:30-0500 Body mass index (BMI) [Ratio] 25.41 kg/m2 Tyrell Stiles Other [employer] Other 05-12-2023 07:30-0500 Body weight 64.05 kg Tyrell Stiles Other [employer] Other 05-12-2023 07:30-0500 Diastolic blood pressure 78 mm[Hg] Tyrell Cuellarmer Other [employer] Other 05-12-2023 07:30-0500 Respiratory rate 16 /min Tyrell Cuellarmer Other [employer] Other 05-12-2023 07:30-0500 SaO2% (BldA) [Mass fraction] 98 % Tyrell Cuellarmer Other [employer] Other 05-12-2023 07:30-0500 Systolic blood pressure 122 mm[Hg] Tyrell Stiles Other [employer] Other 02-24-2023 12:30-0400 Body height 158.75 cm Lisandro LIFX Other [employer] Other 02-24-2023 12:30-0400 Body mass index (BMI) [Ratio] 25.2 kg/m2 Lisandro Huckletrees Other [employer] Other 02-24-2023 12:30-0400 Body weight 63.5 kg Lisandro Huckletrees Other [employer] Other 02-24-2023 12:30-0400 Diastolic blood pressure 85 mm[Hg] Lisandro Huckletrees Other [employer] Other 02-24-2023 12:30-0400 Respiratory rate 16 /min Lisandro Buitrago Other [employer] Other 02-24-2023 12:30-0400 SaO2% (BldA) [Mass fraction] 99 % Lisandro Buitrago Other [employer] Other 02-24-2023 12:30-0400 Systolic blood pressure 140 mm[Hg] Lisandro Buitrago Other [employer] Other Encounters Encounter Date Encounter Type Care Provider Facility Start: 01-04-2025 End: 01-04-2025 Clinisync Result Encounter Rocio Blake DO Work Phone: [facility] Unsolicited Start: 01-04-2025 End: 01-04-2025 Clinisync Result Encounter Rocio Blake DO Work Phone: [facility] Unsolicited Start: 01-02-2025 End: 01-02-2025 Bamboo flowsheet Rocio Blake DO Work Phone: [facility] [place] [facility] Start: 01-02-2025 End: 01-02-2025 Bamboo flowsheet Rocio Blake DO Work Phone: [facility] Start: 01-02-2025 End: 01-02-2025 flow sheet Rocio Blake DO Work Phone: [facility] Comment on above: Third trimester preg lindsey ([facility]); 32 weeks gestation of ([facility]); ZULMA (amniotic fluid index) borderline low Start: 01-02-2025 End: 01-02-2025 ambulatory ROCIO BLAKE Not Available Start: 12-19-2024 End: 12-19-2024 flow sheet Nadine DE JESUS Work Phone: [facility] Comment on above: 30 weeks gestation o f ([facility]); Third trimester ([facility]); HSV infection Start: 12-19-2024 End: 12-19-2024 ambulatory NADINE GALVAN Not Available Start: 12-05-2024 End: 12-05-2024 Bamboo flowsheet Rocio Blake DO Work Phone: [facility] [place] [facility] Start: 12-05-2024 End: 12-05-2024 Bamboo flowsheet Rocio Blake DO Work Phone: [facility] [place] [facility] Start: 12-05-2024 End: 12-05-2024 flow sheet Rocio Blake DO Work Phone: [facility] Comment on above: Third trimester preg lindsey ([facility]); 28 weeks gestation of ([facility]); HSV infection; size inconsistent with dates ([facility]) Start: 12-05-2024 End: 12-05-2024 ambulatory ROCIO BLAKE [...] on above: 26 weeks gestation o f ([facility]); Second trimester ([facility]); Elevated glucose tolerance test Start: 11-22-2024 End: 11-22-2024 ambulatory NADINE MANDY Not Available Start: 10-26-2024 End: 10-26-2024 ambulatory ROCIO BLAKE Not Available Start: 10-26-2024 End: 10-26-2024 flow sheet Rocio Blake DO Work Phone: [facility] Comment on above: Second trimester pre gnancy ([facility]); 22 weeks gestation of ([facility]); Diabetes mellitus screening Start: 10-26-2024 End: 10-26-2024 [...] 15 minutes Attila Bundy MD Work Phone: [facility] Comment on above: Hormone imbalance (P rimary Dx); Amenorrhea; Missed menses; Family planning; Thyroid disorder screen Start: 05-16-2024 End: 05-16-2024 ambulatory ATTILA BUNDY Not Available Start: 03-30-2024 End: 03-30-2024 ambulatory [facility] Facility: [facility] Start: 02-08-2024 End: 02-08-2024 Patient encounter status Attila Bundy MD Work Phone: [facility] Start: 02-08-2024 End: 02-08-2024 Periodic preventive med est patient 18-39 yrs Attila Bundy MD Work Phone: [facility] Comment on above: Amenorrhea (Primary Dx); Screening for malignant neoplasm of cervix; Encounter for gynecological examination without abnormal finding; Encounter for surveillance of vaginal ring hormonal contraceptive device; Missed menses Start: 02-08-2024 End: 02-08-2024 ambulatory ATTILA BUNDY Not Available Start: 01-24-2024 End: 01-24-2024 ambulatory Facility:[facility] Start: 07-27-2023 End: 07-27-2023 ambulatory [facility] Facility: [facility] Start: 07-05-2023 End: 07-05-2023 ambulatory [facility] Facility: [facility] Start: 05-12-2023 End: 05-12-2023 ambulatory Tyrell Stiles Other [facility] [employer] Other Start: 05-12-2023 Office outpatient vi sit 15 minutes Tyrell Stiles [facility] [place] Start: 03-02-2023 End: 03-02-2023 ambulatory Lisandro Mauricios Facility:[facility] Start: 03-02-2023 End: 03-02-2023 ambulatory DO Lisandro Mauricios Work Phone: [facility] Work Phone: Start: 03-02-2023 End: 03-02-2023 Patient encounter procedure DO Lisandro Kuns Work Phone: [facility] Start: 02-24-2023 End: 02-24-2023 ambulatory Lisandro Buitrago Other [facility] Other Start: 02-24-2023 Encounter for genera l adult medical examination without abnormal findings Lisandro Buitrago [facility] [place] Start: 02-24-2023 Office outpatient ne w 30 minutes Lisandro Buitrago [facility] [place] Start: 07-28-2021 End: 07-28-[address] JANES [...] Start: 02-08-2024 Urine test visual color cmprsn swehta Bundy MD Work Phone: Start: 02-08-2024 Cytp cerv/vag auto t hin layer prep mnl screen Rocio Blake DO Work Phone: Start: 03-02-2023 Plain chest X-ray DO Br ett [facility] Work Phone: Start: 03-02-2023 Plain X-ray of left shoulder DO Lisandro LIFX Work Phone: Plan of Treatment Date Care Activity Detail Author Start: 01-16-2025 End: 01-16-2025 Patient encounter procedure 01/16/2025 8:50 AM EDT Routine JORDY MONTANO [address] [place] [id number] Nadine Galvan, PA [address] [place] [address] JORDY Peng OBSOFÍA Start: 01-08-2025 Influenza vaccination N [facility] Start: 01-02-2025 End: 07-05-2025 US biophysical [...] 8:50 AM EDT Routine JORDY MONTANO [address] [place] [address] Nadine Galvan PA [address] [place] [address] [facility] [place] [facility] Start: 12-19-2024 End: 12-19-2024 Professional / ancillary services management 12/19/2024 8:00 AM EDT Ancillary Procedure [facility] [address] [place] [address] [facility] [place] [facility] Start: 12-05-2024 End: 04-07-2025 US for US OB follow up transabdominal approach Imaging Routine size inconsistent with dates ([facility]) Expected: 12/05/2024, Expires: 04/07/2025 [facility] Work Phone: Comment on above: Expected: 12/05/2024 , Expires: 04/07/2025 Start: 12-05-2024 End: 12-05-2024 Patient encounter procedure [facility] Comment on above: Arrived Start: 11-22-2024 End: 11-22-2025 Measurement of glucose 3 hours after glucose challenge for glucose tolerance test Glucose tolerance, 3 hours Lab Routine Elevated glucose tolerance test Expected: 11/22/2024 (Approximate), Expires: 11/22/2025 [facility] Healthcare Work Phone: Comment on above: Expected: 11/22/2024 (Approximate), Expires: 11/22/2025 Start: 11-22-2024 End: 11-22-2024 Patient encounter procedure 11/22/2024 8:50 AM EDT Routine [facility] [address] [place] [phone] Nadine Galvan PA [address] [place] [address] [facility] Start: 10-26-2024 End: 10-26-2025 [...] procedure 09/27/2024 3:30 PM EDT Routine [facility] [address] [place] [phone] Nadine Galvan PA [address] [place] [address] [facility] Start: 08-29-2024 End: 08-29-2024 Patient encounter procedure [facility] Comment on above: Arrived Start: 07-27-2024 End: 07-27-2024 ambulatory 07/27/2024 10:30 AM EDT Initial [facility] [address] [place] [phone] Attila Bundy MD [address] [place] [address] [facility] Start: 07-17-2024 End: 07-17-2024 Patient encounter procedure 07/17/2024 12:30 PM EDT Office Visit [facility] [address] [place] [phone] Attila Bundy MD [address] [place], [place] [phone] [facility] Start: 07-17-2024 End: 07-17-2024 Professional / ancillary services management 07/17/2024 8:30 AM EDT Ancillary Procedure [facility] [address] [place] [address] [facility] Start: 07-11-2024 End: 07-11-2025 Bacteria identified in Urine by Culture Urine culture Microbiology Routine Encounter for supervision of normal first in first trimester Expected: 07/11/2024, Expires: 07/11/2025 [facility] Comment on above: Expected: 07/11/2024 , Expires: 07/11/2025 Start: 07-11-2024 End: 07-11-2025 BEACON CARRIER SCREEN;14 GENES BEACON CARRIER SCREEN;14 GENES Lab Routine Screening for genetic disease carrier status Expected: 07/11/2024 (Approximate), Expires: 07/11/2025 [facility] Comment on above: Expected: 07/11/2024 (Approximate), Expires: 07/11/2025 Start: 07-11-2024 End: 07-11-2025 Blood type and Indirect antibody screen panel - Blood Type and screen Lab Routine Encounter for supervision of normal first in first trimester Expected: 07/11/2024, Expires: 07/11/2025 [facility] Comment on above: Expected: 07/11/2024 , Expires: 07/11/2025 Start: 07-11-2024 End: 07-11-2025 CBC W Auto Differential panel - Blood CBC and differential Lab Routine Encounter for supervision of normal first in first trimester Expected: 07/11/2024, Expires: 07/11/2025 [facility] Comment on above: Expected: 07/11/2024 , Expires: 07/11/2025 Start: 07-11-2024 End: 07-11-2025 DRUG SCREEN 17 W/CONF, UR DRUG SCREEN 17 W/CONF, UR Lab Routine Encounter for drug screening Expected: 07/11/2024, Expires: 07/11/2025 [facility] Comment on above: Expected: 07/11/2024 [...] first trimester Expected: 07/11/2024, Expires: 07/11/2025 [facility] Comment on above: Expected: 07/11/2024 , Expires: 07/11/2025 Start: 07-11-2024 End: 07-11-2025 HIV-1/HIV-2 antigen/antibody combination immunoassay HIV-1 and HIV-2 antibodies Lab Routine Encounter for supervision of normal first in first trimester Expected: 07/11/2024, Expires: 07/11/2025 [facility] Comment on above: Expected: 07/11/2024 , Expires: 07/11/2025 Start: 07-11-2024 End: 07-11-2025 [id number] PLUS Core+SCA [id number] PLUS Core+SCA Lab Routine Encounter for screening for chromosomal anomalies Expected: 07/11/2024 (Approximate), Expires: 07/11/2025 [facility] Comment on above: Expected: 07/11/2024 (Approximate), Expires: 07/11/2025 Start: 07-11-2024 End: 07-11-2025 Reagin Ab [Presence] in Serum by RPR RPR Lab Routine Encounter for supervision of normal first in first trimester Expected: 07/11/2024, Expires: 07/11/2025 [facility] Comment on above: Expected: 07/11/2024 , Expires: 07/11/2025 Start: 07-11-2024 End: 07-11-2025 Rubella antibody, IgG Rubella antibody, IgG Lab Routine Encounter for supervision of normal first in first trimester Expected: 07/11/2024, Expires: 07/11/2025 [facility] Comment on above: Expected: 07/11/2024 , Expires: 07/11/2025 Start: 07-11-2024 End: 07-11-2025 Urinalysis complete panel - Urine Urinalysis with microscopic Lab Routine Encounter for supervision of normal first in first trimester Expected: 07/11/2024, Expires: 07/11/2025 [facility] Work Phone: Comment on above: Expected: 07/11/2024 , Expires: 07/11/2025 Start: 05-16-2024 End: 05-16-2025 Cortisol Cortisol Lab Routine Hormone imbalance Expected: 05/16/2024, Expires: 05/16/2025 [facility] Comment on above: Expected: 05/16/2024 , Expires: 05/16/2025 Start: 05-16-2024 End: 05-16-2025 DHEA-sulfate DHEA-sulfate Lab Routine Hormone imbalance Expected: 05/16/2024, Expires: 05/16/2025 [facility] Comment on above: Expected: 05/16/2024 , Expires: 05/16/2025 Start: 05-16-2024 End: 05-16-2025 Estradiol Estradiol Lab Routine Hormone imbalance Expected: 05/16/2024, Expires: 05/16/2025 [facility] Comment on above: Expected: 05/16/2024 , Expires: 05/16/2025 Start: 05-16-2024 End: 05-16-2025 Estrone Estrone Lab Routine Hormone imbalance Expected: 05/16/2024, Expires: 05/16/2025 [facility] Comment on above: Expected: 05/16/2024 , Expires: 05/16/2025 Start: 05-16-2024 End: 05-16-2025 Follicle stimulating hormone Follicle stimulating hormone Lab Routine Hormone imbalance Thyroid disorder screen Expected: 05/16/2024, Expires: 05/16/2025 [facility] Comment on above: Expected: 05/16/2024 , Expires: 05/16/2025 Start: 05-16-2024 End: 05-16-2025 Insulin, fasting Insulin, fasting Lab Routine Amenorrhea Missed menses Hormone imbalance Expected: 05/16/2024, Expires: 05/16/2025 [facility] Comment on above: Expected: 05/16/2024 , Expires: 05/16/2025 Start: 05-16-2024 End: 05-16-2025 Luteinizing hormone Luteinizing hormone Lab Routine Hormone imbalance Thyroid disorder screen Expected: 05/16/2024, Expires: 05/16/2025 [facility] Comment on above: Expected: 05/16/2024 , Expires: 05/16/2025 Start: 05-16-2024 End: 05-16-2025 Progesterone Progesterone Lab Routine Hormone imbalance Expected: 05/16/2024, Expires: 05/16/2025 [facility] Comment on above: Expected: 05/16/2024 , Expires: 05/16/2025 Start: 05-16-2024 End: 05-16-2025 Sex hormone binding globulin Sex hormone binding globulin Lab Routine Hormone imbalance Expected: 05/16/2024, Expires: 05/16/2025 [facility] Comment on above: Expected: 05/16/2024 , Expires: 05/16/2025 Start: 05-16-2024 End: 05-16-2025 Testosterone, free, total Testosterone, free, total Lab Routine Hormone imbalance Expected: 05/16/2024, Expires: 05/16/2025 [facility] Comment on above: Expected: 05/16/2024 , Expires: 05/16/2025 Start: 05-16-2024 End: 05-16-2025 Thyrotropin [Units/volume] in Serum or Plasma TSH Lab Routine Hormone imbalance Thyroid disorder screen Expected: 05/16/2024, Expires: 05/16/2025 [facility] Work Phone: Comment on above: Expected: 05/16/2024 , Expires: 05/16/2025 Start: 05-16-2024 End: 05-16-2025 Vitamin D 1,25 dihydroxy Vitamin D 1,25 dihydroxy Lab Routine Hormone imbalance Expected: 05/16/2024, Expires: 05/16/2025 [facility] Comment on above: Expected: 05/16/2024 , Expires: 05/16/2025 Start: 05-16-2024 End: 05-16-2024 Patient encounter procedure 05/16/2024 12:30 PM EST Office Visit [facility] [address] [place] [address] Attila Bundy MD [address] [place] [address] [facility] Start: 02-08-2024 End: 02-07-2025 Follicle stimulating hormone Follicle stimulating hormone Lab Routine Amenorrhea Expected: 02/08/2024 (Approximate), Expires: 02/07/2025 [facility] Comment on above: Expected: 02/08/2024 (Approximate), Expires: 02/07/2025 Start: 01-09-2024 Influenza vaccination Influenza Vacc ine (#1) [facility] hCG, qualitative hCG, qualitativ e Lab Routine Amenorrhea Ordered: 02/08/2024 [facility] Comment on above: Ordered: 02/08/2024 Hemoglobin A1c/Hemoglobin.total in Blood Hemoglobin A1c Lab Routine with uncertain dates, antepartum Ordered: 08/10/2024 [facility] Work Phone: Comment on above: Ordered: 08/10/2024 Luteinizing hormone Luteinizing hormone Lab Routine Amenorrhea Ordered: 02/08/2024 [facility] Comment on above: Ordered: 02/08/2024 Progesterone Progesterone Lab Routine Amenorrhea Ordered: 02/08/2024 [facility] Comment on above: Ordered: 02/08/2024 SENDOUT TEST MISCELLANEOUS [facility] SENDOUT TEST MISCELLANEOUS [facility] Lab Routine Screening for malignant neoplasm of cervix Encounter for gynecological examination without abnormal finding Ordered: 02/08/2024 [facility] Work Phone: Comment on above: Ordered: 02/08/2024 Testosterone, free, total Testosterone, free, total Lab Routine Amenorrhea Ordered: 02/08/2024 [facility] Comment on above: Ordered: 02/08/2024 Immunizations Immunization Date Immunization Notes Care Provider Fa cili 09-25-2020 COVID-19 Vaccine Moderna - Documentation Purposes Only Lisandro Buitrago Other [employer] Other 08-21-2020 COVID-19 Vaccine Moderna - Documentation Purposes Only Lisandro Buitrago Other [employer] Other Payers Date Payer Category Payer Unknown [id number] 2023 Private Health Insurance [id number] 2023 Private Health Insurance [id number] 2023 Unknown [id number] 2. [id number] 1995 Unknown [id number] 2.16.84 0.1.050452.3.579.2.593 1995 Unknown [id number] 2.16.8 40.1.599553.3.579.2.718 1995 Unknown [id number] 2.16.8 40.1.233138.3.579.2.718 1995 Unknown [id number] 2.16.8 40.1.592184.3.579.2.718 1995 Unknown [id number] 2.16.8 40.1.245828.3.579.2.1259 1995 Unknown [id number] 2.16.8 40.1.258644.3.579.2.1259 1995 Unknown [id number] 2.16.8 40.1.308579.3.579.2.9 1995 Unknown [id number] 2.16.8 40.1.230673.3.579.2.1259 1995 Unknown [id number] 2.16.8 40.1.408117.3.579.2.1259 1995 Unknown [id number] 2.16.8 40.1.180991.3.579.2.1259 1995 Unknown [id number] 2.16.8 40.1.500648.3.579.2.1259 1995 Unknown [id number] 2.16.84 0.1.715111.3.579.2.1259 1995 Unknown [id number] 2.16.84 0.1.094556.3.579.2.1259 1995 Unknown [id number] 2.16.84 0.1.290771.3.579.2.1259 1995 Unknown [id number] 2.16.84 0.1.808178.3.579.2.1259 1995 Unknown [id number] 2.16.84 0.1.020114.3.579.2.1259 1995 Unknown [id number] 2.16.84 0.1.464813.3.579.2.1259 1995 Unknown [id number] 2.16.84 0.1.499560.3.579.2.1259 1959 Self-pay Unknown [id number] Unknown [id number] 2.16.8 40.1.773678.3.579.2.531 Social History Date Type Detail Facility Start: 02-08-2024 End: 05-16-2024 Sex Assigned At [facility] Lysanda Other Start: 1995 Sex Assigned At Female F [facility] Start: 05-15-2023 Tobacco smoking stat [facility] Never smoked tobacco [facility] Start: 05-15-2023 [...] Harris - 12/19/2024 8:50 AM Elton Borrego, ALEKSANDR - 12/05/2024 9:00 AM LIZA Harris - 11/22/2024 8:50 AM Elton Borrego LPN - [...] nursing note reviewed. Exam conducted with a topology teacher present. Vitals: Estimated body mass index is 28.96 kg/m as calculated from the following: Height as of 08/10/24: 5' 3 . Weight as of this encounter: 163 lb 8 oz. BP: 120/76 Patient's last menstrual period was 05/09/2024 (exact date). ASSESSMENT & PLAN ICD-10-CM 1. Third trimester ([facility]) Z34.93 POCT urinalysis dipstick manually resulted 2. 32 weeks gestation of ([facility]) Z3A.32 Return OB: Patient presents today for [...] Lozano DO documented in this encounter [facility] 12-19-2024 History of Presen t illness Narrative [...] PLAN ICD-10-CM 1. 30 weeks gestation of ([facility]) Z3A.30 POCT urinalysis dipstick manually resulted 2. Third trimester ([facility]) Z34.93 POCT urinalysis dipstick manually resulted 3. [...] of: LIZA Zaldivar documented in this encounter [facility] 12-05-2024 History of Presen t illness Narrative [...] nursing note reviewed. Exam conducted with a topology teacher present. Vitals: Estimated body mass index is 28.52 kg/m as calculated from the following: Height as of 25: 5' 3 . Weight as of this encounter: 161 lb. BP: 120/76 Patient's last menstrual period was 05/09/2024 (exact date). ASSESSMENT & PLAN ICD-10-CM 1. Third trimester ([facility]) Z34.93 CANCELED: POCT urinalysis dipstick manually resulted 2. 28 weeks gestation of ([facility]) Z3A.28 3. 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 size inconsistent with dates ([facility]) O26.849 US OB follow up transabdominal approach [...] Lozano DO documented in this encounter [facility] 11-22-2024 History of Presen t illness Narrative [...] PLAN ICD-10-CM 1. 26 weeks gestation of ([facility]) Z3A.26 POCT urinalysis dipstick manually resulted 2. Second trimester ([facility]) Z34.92 POCT urinalysis dipstick manually resulted 3. [...] of: LIZA Zaldivar documented in this encounter [facility] 10-26-2024 History of Presen t illness [...] ASSESSMENT & PLAN ICD-10-CM 1. Second trimester ([facility]) Z34.92 POCT urinalysis dipstick manually resulted 2. 22 weeks gestation of ([facility]) Z3A.22 3. Diabetes mellitus screening Z13.1 CBC [...] Lozano DO documented in this encounter [facility] 08-29-2024 History of Presen t [...] nursing note reviewed. Exam conducted with a topology teacher present. Vitals: Estimated body mass index [...] or undercooked meat, and stay away from [facility]. Patient has been consulted regarding any further do's and don'ts of . Patient voiced understanding and all questions and concerns were answered. Orders Placed This Encounter Procedures POCT urinalysis dipstick manually resulted Follow Up: Patient is to return in 4 weeks for routine OB appointment. Documented by Zita Borrego LPN on behalf of: Rocio Lozano DO documented in this encounter [facility] 08-10-2024 History of Presen t [...] or undercooked meat, and stay away from [facility]. Patient has also been advised to not change litter boxes and eat 6 small meals a day. Patient has been consulted regarding the do's and don'ts of . Patient was given labs and all questions and concerns were answered. Patient was given [place] labs to be completed with Hgb A1C. Follow Up: Patient is to return in 4 weeks for routine OB appointment. Follow Up: Patient is to have labs drawn at directed and return to office for initial OB appointment with provider. Patient may call office as needed with any concerns or questions. Nurse Visit Completed by: Domenica Jacinto LPN documented in this encounter [facility] 07-11-2024 History of Presen t [...] 10:03 AM documented in this encounter [facility] 05-16-2024 History of Presen t illness Narrative Images from the original note were not included. Attila Bundy MD Obstetrics and Gynecology Patient: Alondra Beaver : 1995 (28 y.o.) Exam Date: 05/16/2024 Reason for Visit - Chief Complaint Patient presents with Follow-up Follow up for Amenorrhea, missed menses, and family planning. Stopped EluRyng in 10/2023. 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 Exam conducted with a topology teacher present. Assessment/Plan ICD-10-CM 1. Amenorrhea N91.2 2. [...] the process. documented in this encounter [facility] 05-16-2024 Instructions Attila Bundy MD [...] infertility test. documented in this encounter [facility] 02-08-2024 History of Presen t [...] 1 year documented in this encounter [facility] 05-12-2023 Evaluation note Encounter Date [...] and trigger point injections can be done. [employer] Other 10-18-2023 Evaluation note* Encounter Date Diagnosis Assessment Notes Treatment Notes Treatment Clinical Notes Feb, Encounter to establish care (ICD-10 - Z76.89) Patient appears to be in good health upon examination. She is here to establish care for annual physcial for her employment. 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 Feb, Wellness examination (ICD-10 - Z00.00) [...] Stress test ordered to rule out abnormalities. [employer] Other Evaluation noteNo assessment information available [facility] Work Phone: Evaluation note* Diagnosis [...] Date Medical History Left elbow dislocation 2011 [employer] Other Summary Purpose Family History No Family [...] content) DATE CREATED AUTHOR [facility]/30/2021 [facility] DATE CREATED AUTHOR AUTHOR'S ORGANIZ ATION 05/24/2023 [facility] DATE CREATED AUTHOR AUTHOR'S ORGANIZ ATION 02/20/2024 [facility] DATE CREATED AUTHOR AUTHOR'S ORGANIZ ATION 04/23/2024 [facility] DATE CREATED AUTHOR AUTHOR'S ORGANIZ ATION 01/03/2025 [facility] EPIC REASON FOR VISIT (unrecogniz ed section and content) Reason Comments Gynecologic Exam Reason Comments Follow-up Reason Comments Initial Visit Nurse Visit Reason Comments Amenorrhea Reason Comments Routine Visit Care Teams (unrecognized sec tion and content) Team Status: Inactive Member Role Status Dates Lisandro Buitrago DO Attending Provider Active Flamer Sealer Relationship Specialty Start Date End Date Unallocated, Jordy Horn MD [facility] [address] [place] [address] PCP - General Family Medicine 06/23/23 Flamer Sealer Relationship Specialty Start Date End Date Unallocated, Jordy Horn MD [facility] [address] [place] [address] PCP - General Family Medicine 06/23/23 Flamer Sealer Relationship Specialty Start Date End Date Unallocated, Jordy Hron MD [facility] [address] [place] [address] PCP - General Family Medicine 06/23/23 Flamer Sealer Relationship Specialty Start Date End Date Unallocated, Jordy Horn MD [facility] [address] [place] [address] PCP - General Family Medicine 06/23/23 Flamer Sealer Relationship Specialty Start Date End Date Unallocated, Jordy Horn MD [facility] [address] [place] [address] PCP - General Family Medicine 06/23/23 Flamer Sealer Relationship Specialty Start Date End Date Unallocated, Jordy Horn MD [facility] [address] [place] [address] PCP - General Family Medicine 06/23/23 Flamer Sealer Relationship Specialty Start Date End Date Unallocated, Jordy Horn MD [facility] [address] [place] [address] PCP - General Family Medicine 06/23/23 Flamer Sealer Relationship Specialty Start Date End Date Unallocated, Jordy Horn MD [facility] [address] [place] [address] PCP - General Family Medicine 06/23/23 Flamer Sealer Relationship Specialty Start Date End Date Unallocated, Jordy Horn MD [address] [place] [address] PCP - General Family Medicine 06/23/23 Flamer Sealer Relationship Specialty Start Date End Date Unallocated, Jordy Horn MD [address] [place] [place] [address] PCP - General Family Medicine 06/23/23 Flamer Sealer Relationship Specialty Start Date End Date Unallocated, Jordy Horn MD [address] [place] [address] PCP - General Family Medicine 06/23/23 Goals [...] BE BASED ON THE PRIMARY CLINICAL RECORDS. [employer] [facility]. provides no warranty or guarantee of the accuracy or completeness of information in this document.
[2025-01-08 12:35] VITALS: BP 130/68; PULSE 93
== END 2025-01-08 13:05 | disposition home or self-care (01) ==
LOC: FBCO 12:01 → FBC 12:02
PROVIDERS: PCP Family Medicine; Visit Provider Obstetrics & Gynecology
DX: O26.893 Other specified pregnancy related conditions, third trimester (principal); Z3A.33 33 weeks gestation of pregnancy
CPT/HCPCS: 59025

== ENCOUNTER 2025-01-11 06:56 | Outpatient (OUT) | payer OTHER, SELFPAY ==
--- OUTSIDE RECORDS SUMMARY | 2025-01-02 08:30 | XMS_ITS | Encounter Summary ---
Author Organization [facility] Address [address] [place] [address] Care Team Providers Care Office Helper Name Role Phone Unallocated, Noms Provider [facility] Reason for Visit * Reason Comments Routine Visit Encounter Details Date Type Department Care Team (Late st Contact Info) Description 01/02/2025 8:30 AM EDT Routine [facility] [address] [place] [phone] José Lozano DO [address] [place] [address] Third trimester ([facility]); 32 weeks gestation of ([facility]); ZULMA (amniotic fluid index) borderline low Social [...] nursing note reviewed. Exam conducted with a line ordering clinician present. Vitals: Estimated body mass index is 28.96 kg/m?? as calculated from the following: Height as of 08/10/24: 5' 3 . Weight as of this encounter: 163 lb 8 oz. BP: 120/76 Patient's last menstrual period was 05/09/2024 (exact date). ASSESSMENT & PLAN ICD-10-CM 1. Third trimester ([facility]) Z34.93 POCT urinalysis dipstick manually resulted 2. 32 weeks gestation of ([facility]) Z3A.32 Return OB: Patient presents today [...] AM EDT Routine [facility] [address] [facility] [place] [address] Rosaura Li NP [address] [place] [address] Scheduled Orders Name Type Priority Associated Diagnoses [...] Routine 01/02/2025 8:29 AM EDT Third trimester ([facility]) documented in this encounter Results * [...] Positive Urine 01/02/2025 8:29 AM EDT José Lozano DO POINT OF CARE TEST ENTER/EDIT OR DERABLES Final Result documented in this encounter Visit Diagnoses Diagnosis Third trimester ([facility]) state, incidental 32 weeks gestation of ([facility]) ZULMA (amniotic fluid index) borderline low Nonspecific abnormal finding in amniotic fluid documented in this encounter Additional Health Concerns Active Problems Noted Date Diagnosed Date OB Reminders 07/11/2024 documented as of this encounter Care Teams Office Helper Relationship Specialty Start Date End Date Unallocated, Noms Provider, [place] [address] PCP - General Family Medicine 06/23/23 documented as of this encounter
--- OUTSIDE RECORDS SUMMARY | 2025-01-11 06:58 | XMS_ITS | Encounter Summary ---
Author Organization [facility] Address [address] [place] [address] Care Team Providers Care Director It Project Name Role Phone Unallocated, [facility] Encounter Details Date Type Department Care Team (Late st Contact Info) Description 01/02/2025 Bamboo flowsheet [facility] [address] [place] [address] José Lozano DO [address] [place], [facility] Social History Tobacco Use Types Packs/Day [...] AM EDT Routine [facility] [address] [place] [phone] Rosaura Li, EMPLOYMENT PROGRAMS ANALYST [address] [place] [address] documented as of this encounter Goals Goal Patient Goal Type Associated Problems Recent Progress Patient-Stated? Author Reminders Care Plan OB Reminders Jennifer Bond RN documented as of this encounter Visit Diagnoses Not on filedocumented in this encounter Additional Health Concerns Active Problems Noted Date Diagnosed Date OB Reminders 07/11/2024 documented as of this encounter Care Teams Director It Project Relationship Specialty Start Date End Date Unallocated, Noms MD Justina [address] [place] [address] PCP - General Family Medicine 06/23/23 documented as of this encounter
--- OUTSIDE RECORDS SUMMARY | 2025-01-11 06:58 | XMS_ITS | Clinical Summary ---
Author Organization [facility] Address [address] [place] [address] Care Team Providers Care Television Engineer Name Role Phone Unallocated, Noms Provider Primary Care Provi ulysses Allergies No known active allergies Medications Vit-Fe Fumarate-FA ( PO) Take by mouth Active Encounters Date Type Department Care Team Description 01/08/2025 Clinisync Result Encounter NOMS External Department Unsolicited Rocio Lozano, 01/04/2025 Clinisync Result Encounter NOMS External Department Unsolicited Rocio Lozano, 01/02/2025 8:30 AM [place] [phone] Rocio Lozano, Third trimester ([facility]); 32 weeks gestation of ([facility]); ZULMA (amniotic fluid index) borderline low 01/02/2025 [place] [address] Rocio Lozano DO 01/02/2025 Travel 12/19/2024 8:50 [place] [phone] Nadine Gurrola PA 30 weeks gestation of ([facility]); Third trimester ([facility]); HSV infection 12/19/2024 8:00 AM EDT Ancillary Procedure [facility] [address] size inconsistent with dates ([facility]) 12/19/2024 Telephone [facility] [place] [phone] Dea Olivares LPN 12/05/2024 9:00 AM EDT Routine [facility] [place] [phone] Rocio Lozano, Third trimester ([facility]); 28 weeks gestation of ([facility]); HSV infection; size inconsistent with dates ([facility]) 12/05/2024 Bamboo flowsheet [facility] [address] Rocio Lozano, 12/04/2024 Travel 11/28/2024 Clinisync Result Encounter NOMS External Department Unsolicited Nadine Gurrola PA 11/22/2024 8:50 AM EDT Routine [facility] [place] [place] [address] Nadine Gurrola PA 26 weeks gestation of ([facility]); Second trimester ([facility]); Elevated glucose tolerance test 11/22/2024 Results Follow-Up [facility] [place] [place] [phone] Dea Olivares, CABLE PULLER ALL CBC WITH AUTO DIFF, GLUCOSE 1 HOUR 11/22/2024 Clinisync Result Encounter NOMS External Department Unsolicited Rocio Lozano, 11/17/2024 Travel 10/26/2024 11:50 AM EDT Routine [facility] [place] [place] [phone] Rocio Lozano, Second trimester ([facility]); 22 weeks gestation of ([facility]); Diabetes mellitus screening 10/26/2024 11:00 AM EDT Ancillary Procedure [facility] [address] [place] [address] [place] [address] from Last 3 Months Family History [...] Alive Paternal Grandfather Skyler Walp Paternal Grandmother Broderickn Walp Sister Social History Tobacco Use Types [...] AM EDT Routine [facility] [address] [place] [address] Rosaura Li, LIBBY [address] [place] [address] Health Maintenance Due Date Last Done Comments Influenza Vaccine (#1) 2025 Goals Goal Patient Goal Type Associated Problems Recent Progress Patient-Stated? Author Reminders Care Plan OB Reminders No Jennifer Ayala RN Procedures Procedure Name Priority Date/Time Associated Diagnosis Comments US OB BPP W NON-STRESS 01/08/2025 12:44 PM EDT US OB BPP W NON-STRESS 01/04/2025 10:27 AM EDT POCT URINALYSIS DIPSTICK Routine 01/02/2025 8:29 AM EDT Third trimester ([facility]) POCT URINALYSIS DIPSTICK Routine 12/19/2024 9:06 AM EDT 30 weeks gestation of ([facility]) Third trimester ([facility]) US OB FOLLOW UP TRANSABDOMINAL APPROACH Routine 12/19/2024 8:25 AM EDT size inconsistent with dates ([facility]) GLUCOSE TOLERANCE 3 HOUR Routine 11/28/2024 6:41 AM EDT POCT URINALYSIS DIPSTICK Routine 11/22/2024 8:57 AM EDT 26 weeks gestation of ([facility]) Second trimester ([facility]) GLUCOSE 1 HOUR Routine 11/22/2024 7:47 AM EDT ALL CBC WITH AUTO DIFF Routine 7:47 AM EDT POCT URINALYSIS DIPSTICK Routine 10/26/2024 12:06 PM EDT Second trimester ([facility]) US OB 14+ WEEKS ANATOMY SCAN Routine 10/26/2024 11:56 AM EDT Screening, , for anatomic survey ([facility]) from Last 3 Months Results * US OB BPP W NON-STRESS (01/08/2025 12:44 PM EDT) Only the most recent of2 resultswithin the time period is included. Anatomical Region Laterality Modality Other 01/08/2025 12:4 4 PM EDT Narrative 01/08/2025 12:46 [place] [address] Ultrasound Report Signed Patient: ALONDRA BEAVER MR#: [id number] : 1995 Acct:[id number] Age/Sex: 29 / F ADM Date: 01/08/25 Loc: US Attending Dr: Rocio Lozano D.O. Ordering Physician: Rocio Lozano D.O. Date of Service: 01/08/25 Procedure(s): US OB BPP w non-stress Accession Number(s): [id number] cc: Rocio Lozano D.O.; Zita Alanis M.D. [address] [address] Patient Name: ALONDRA BEAVER MRN: [id number] date: 1995 Sex: F Assigned Patient Location: US Current Patient Location: [facility] Accession/Order Number: [id number] Exam Date: 01/08/2025 12:03 Report Date: 01/08/2025 12:44 At the request of: ROCIO LOZANO DO Procedure: US OB BPP w non-stress Biophysical profile. Reason for exam: Abnormal BPP. COMPARISON: 01/04/2025 TECHNIQUE: Transabdominal imaging of the gravid uterus was obtained. FINDINGS: The chief operator reformer reports a BPP of 8 out of 8. ZULMA is normal at 14.8 cm. heart rate 135 bpm. US/US OB BPP w non-stress IMPRESSION: BPP 8 out of 8. Impression dictated by: Terry Puentes Jr., D.O. 01/08/2025 12:44 PM Dictation Location: [place] [address] Electronically authenticated by: [id number] Y Date: 01/08/2025 12:44 Dictated By: Terry Puentes M.D. Signed By: 01/08/25 1246 DD/ 1244 TD/TT: Chief Program Officer: Procedure Note Radiology, Radiologist, MD - 01/08/2025 [place] [address] Ultrasound Report Signed Patient: ALONDRA BEAVER NMR#: [id number] : 1995Acct:[id number] Age/Sex: 29 / FADM Date: 01/08/25 Loc: US Attending Dr: Rocio Lozano D.O. Ordering Physician: Rocio Lozano D.O. Date of Service: 01/08/25 Procedure(s): US OB BPP w non-stress Accession Number(s): [id number] cc: Rocio Lozano D.O.; Zita Alanis M.D. The [place] [id number] Patient Name: ALONDRA BEAVER MRN: [id number] date: 1995 Sex: F Assigned Patient Location: US Current Patient Location: [facility] Accession/Order Number: [id number] Exam Date: 01/08/2025 12:03 Report Date: 01/08/2025 12:44 At the request of: ROCIO LOZANO DO Procedure: US OB BPP w non-stress Biophysical profile. Reason for exam: Abnormal BPP. COMPARISON: 01/04/2025 TECHNIQUE: Transabdominal imaging of the gravid uterus was obtained. FINDINGS: The chief operator reformer reports a BPP of 8 out of 8. ZULMA is normal at14.8 cm. heart rate 135 bpm. US/US OB BPP w non-stress IMPRESSION: BPP 8 out of 8. Impression dictated by: Terry Puentes Jr., D.O. 01/08/2025 12:44 PM Dictation Location: [place] [address] Electronically authenticated by: [id number] Y Date: 2:44 Dictated By: Terry Puentes M.D. Signed By:01/08/25 1246 DD/ 1244 TD/TT: Chief Program Officer: Rocio Lozano DO [facility] Final Result [...] - Positive Urine 01/02/2025 8:29 AM EDT Rocio Blake DO POINT OF CARE TEST [...] Terry Rodriguez MD us Rocio Lozano DO [facility] [place] US PROCEDURES Final Resul t * GLUCOSE TOLERANCE 3 HOUR (11/28/2024 6:41 AM EDT) GLUCOSE TOLERANCE 3 HOUR mg/dL TB Comment: GLU FAST 93 (<95) Col: 11/28/24 0641 GLU 1HR 149 (<180) Col: 11/28/24 0743 GLU 2HR 118 (<155) Col: 11/28/24 0843 GLU 3HR 81 (<140) Col: 11/28/24 0942 11/28/2024 6:41 AM EDT 11/28/2024 6:49 AM EDT Narrative [facility] - 11/28/2024 10:14 AM EDT us Nadine DE JESUS LAB BLOOD ORDERABLES Final Resul t [facility] * (ABNORMAL) GLUCOSE 1 HOUR (11/22/2024 7:47 AM EDT) GLUCOSE 1 HOUR 149(H) <130 mg/dL TB 11/22/2024 7:47 AM EDT 11/22/2024 7:50 AM EDT Narrative [facility] - 11/22/2024 8:41 AM EDT us Rocio Lozano DO LAB BLOOD ORDERABLES Final Resul t [facility] * (ABNORMAL) ALL CBC WITH AUTO [...] AM EDT 11/22/2024 7:50 AM EDT Narrative [facility] - 11/22/2024 8:25 AM EDT us Rocio Blake DO [facility] Final Result [facility] * US OB 14+ weeks anatomy [...] II, MD, PHD at 27-Oct-2024 06:14:52 AM [facility] Procedure Note Leonidas Nicole MD - [...] signed by LEONIDAS NICOLE II, MD, PHD [id number] 06:14:52 AM [facility] us Nadine DE JESUS IMG OB US PROCEDURES Final Resul t from Last 3 Months Additional Health Concerns Active Problems Noted Date Diagnosed Date OB Reminders 07/11/2024 Insurance [employer] Member Subscriber Plan / Payer (Ef fective 2023-Present) Name:Alondra Beaver Relation to Subscriber:Self Name:BeaverAlondra Payer ID:Not on file Type:Not on file Address: [place] [id number] [employer] Care Teams Television Engineer Relationship Specialty Start Date End Date Unallocated, [place] [address] PCP - General Family Medicine 06/23/23
--- OUTSIDE RECORDS SUMMARY | 2025-01-11 06:58 | XMS_ITS | Encounter Summary ---
Author Organization [facility] Address [address] [place] [address] Care Team Providers Care Track Laying Equipment Operator Name Role Phone Unallocated, Noms Provider Primary Care Provi ulysses Encounter Details Date Type Department Care Team (Late st Contact Info) Description 01/04/2025 Clinisync Result Encounter NOMS External Department Unsolicited Rocio Lozano, DO [address] [place] [address] Social History Tobacco Use Types Packs/Day Years [...] AM EDT Routine [facility] [address] [place] [address] Rosaura Li, LIBBY [address] [place] [address] documented as of this encounter Goals [...] AM EDT Narrative 01/04/2025 10:30 AM EDT [address] [address] Ultrasound Report Signed Patient: ALONDRA BEAVER MR#: [id number] : 1995 Acct:[id number] Age/Sex: 29 / F ADM Date: 01/04/25 Loc: US Attending Dr: Rocio Lozano D.O. Ordering Physician: Rocio Lozano D.O. Date of Service: 01/04/25 Procedure(s): US OB BPP w non-stress Accession Number(s): [id number] cc: Rocio Lozano D.O.; Zita Alanis M.D. The [address] [address] Patient Name: ALONDRA BEAVER MRN: [id number] date: 1995 Sex: F Assigned Patient Location: [facility] Current Patient Location: Accession/Order Number: [id number] Exam Date: 01/04/2025 07:10 Report Date: 01/04/2025 10:27 At the request of: ROCIO LOZANO DO Procedure: US OB BPP w non-stress BIOPHYSICAL PROFILE: CLINICAL INFORMATION: ZULMA BORDERLINE LOW O28.8 COMPARISON: None There is a single live intrauterine gestation in cephalic presentation. The reported gestational age is 32 weeks 3 days. The heart rate beats per minute. FINDINGS: TONE: 1 or [...] Lu M.D. 01/04/2025 10:27 AM Dictation Location: [employer] Electronically authenticated by: [id number] Y Date: 01/04/2025 10:27 Dictated By: Zita Lu M.D. Signed By: 01/04/25 1030 DD/ 1027 TD/TT: Pipelines Supervisor: Procedure Note Radiology, Radiologist, - 01/04/2025 [place] [address] Ultrasound Report Signed Patient: ALONDRA BEAVER [facility]#: [id number] : 1995Acct:[id number] Age/Sex: 29 FADM Date: 01/04/25 Loc: US Attending Dr: Rocio Lozano D.O. Ordering Physician: Rocio Lozano D.O. Date of Service: 01/04/25 Procedure(s): US OB BPP w non-stress Accession Number(s): [id number] cc: Rocio Lozano D.O.; Zita Alanis M.D. The [place] [address] Patient Name: ALONDRA BEAVER MRN: [facility]:[id number] date: 1995 Sex: F Assigned Patient Location: [facility] Current Patient Location: Accession/Order Number: [id number] Exam Date: 01/04/2025 07:10 Report Date: 01/04/2025 10:27 At the request of: ROCIO LOZANO DO Procedure: US OB BPP w non-stress BIOPHYSICAL PROFILE: CLINICAL INFORMATION: ZULMA BORDERLINE LOW O28.8 COMPARISON: None There is a single live intrauterine gestation in cephalic presentation.The reported gestational age is 32 weeks 3 days. The heart [id number] beats per minute. FINDINGS: TONE: 1 or [...] Lu M.D. 01/04/2025 10:27 AM Dictation Location: [place] [address] Electronically authenticated by: [id number] Y Date: 0:27 Dictated By: Zita Lu M.D. Signed By:01/04/25 1030 DD/ 1027 TD/TT: Pipelines Supervisor: us Rocio Lozano DO [facility] Final Result documented in this encounter Visit Diagnoses Not on filedocumented in this encounter Additional Health Concerns Active Problems Noted Date Diagnosed Date OB Reminders 07/11/2024 documented as of this encounter Care Teams Track Laying Equipment Operator Relationship Specialty Start Date End Date Unallocated, Noms Provider, [place] [address] [place] [address] PCP - General Family Medicine 06/23/23 documented as of this encounter
--- OUTSIDE RECORDS SUMMARY | 2025-01-11 06:58 | XMS_ITS | Encounter Summary ---
Author Organization [facility] Address [address] [place] [address] Care Team Providers Care Land Leasing Information Clerk Name Role Phone Unallocated, Noms Provider Primary Care Provi [facility] Encounter Details Date Type Department Care Team [...] 01/15/2025 8:50 AM EDT Routine TORREY MONTANO [address] [place] [address] [place] [address] Rosaura Li, LIBBY [address] [facility] [place] [address] documented as of this encounter Goals Goal Patient Goal Type Associated Problems Recent Progress Patient-Stated? Author Reminders Care Plan OB Reminders Jennifer Bond RN documented as of this encounter Visit Diagnoses Not on filedocumented in this encounter Additional Health Concerns Active Problems Noted Date Diagnosed Date OB Reminders 07/11/2024 documented as of this encounter Care Teams Land Leasing Information Clerk Relationship Specialty Start Date End Date Unallocated, Noms Provider, [place] [address] [address] PCP - General Family Medicine 06/23/23 documented as of this encounter
--- OUTSIDE RECORDS SUMMARY | 2025-01-11 06:58 | XMS_ITS | Encounter Summary ---
Author Organization [facility] Address [address] [place] [address] Care Team Providers Care Route Carrier Name Role Phone Unallocated, Noms Provider Primary Care Provi ulysses Encounter Details Date Type Department Care Team (Late st Contact Info) Description 01/08/2025 Clinisync Result Encounter NOMS External Department Unsolicited Rocio Lozano, DO [address] [facility] [place] [address] Social History Tobacco Use Types Packs/Day Years [...] EDT Routine [facility] [address] [place] [address] Rosaura Li, LIBBY [address] [place] [address] documented as of this encounter Goals Goal Patient Goal Type Associated Problems Recent Progress Patient-Stated? Author Reminders Care Plan OB Reminders Jennifer Bond RN documented as of this encounter Procedures Procedure Name Priority Date/Time Associated Diagnosis Comments US OB BPP W NON-STRESS 01/08/2025 12:44 PM EDT documented in this encounter Results * US OB BPP W NON-STRESS (01/08/2025 12:44 PM EDT) Anatomical Region Laterality Modality Other 01/08/2025 12:4 4 PM EDT Narrative 01/08/2025 12:46 PM EDT The [address] [address] Ultrasound Report Signed Patient: ALONDRA BEAVER MR#: [id number] : 1995 Acct:[id number] Age/Sex: 29 / F ADM Date: 01/08/25 Loc: US Attending Dr: Rocio Lozano D.O. Ordering Physician: Rocio Lozano D.O. Date of Service: 01/08/25 Procedure(s): US OB BPP w non-stress Accession Number(s): [id number] cc: Rocio Lozano D.O.; Zita Alanis M.D. [address] [address] Patient Name: ALONDRA BEAVER MRN: [id number] date: 1995 Sex: F Assigned Patient Location: US Current Patient Location: [facility] Accession/Order Number: [id number] Exam Date: 01/08/2025 12:03 Report Date: 01/08/2025 12:44 At the request of: RCOIO LOZANO DO Procedure: US OB BPP w non-stress Biophysical profile. Reason for exam: Abnormal BPP. COMPARISON: 01/04/2025 TECHNIQUE: Transabdominal imaging of the gravid uterus was obtained. FINDINGS: The greenhouse or nursery transplanter reports a BPP of 8 out of 8. ZULMA is normal at 14.8 cm. heart rate 135 bpm. US/US OB BPP w non-stress IMPRESSION: BPP 8 out of 8. Impression dictated by: Terry Puentes Jr., D.O. 01/08/2025 12:44 PM Dictation Location: [place] [address] Electronically authenticated by: [id number] Y Date: 01/08/2025 12:44 Dictated By: Terry Puentes M.D. Signed By: 01/08/25 1246 DD/ 1244 TD/TT: Web Methods Developer: Procedure Note Radiology, Radiologist, MD - 01/08/2025 [place] [address] Ultrasound Report Signed Patient: ALONDRA BEAVER NMR#: [id number] : 1995Acct:[id number] Age/Sex: 29 / FADM Date: 01/08/25 Loc: US Attending Dr: Rocio Lozano D.O. Ordering Physician: Rocio Lozano D.O. Date of Service: 01/08/25 Procedure(s): US OB BPP w non-stress Accession Number(s): [id number] cc: Rocio Lozano D.O.; Zita Alanis M.D. The [address] [address] Patient Name: ALONDRA BEAVER MRN: [id number] date: 1995 Sex: F Assigned Patient Location: US Current Patient Location: [facility] Accession/Order Number: [id number] Exam Date: 01/08/2025 12:03 Report Date: 01/08/2025 12:44 At the request of: ROCIO LOZANO DO Procedure: US OB BPP w non-stress Biophysical profile. Reason for exam: Abnormal BPP. COMPARISON: 01/04/2025 TECHNIQUE: Transabdominal imaging of the gravid uterus was obtained. FINDINGS: The greenhouse or nursery transplanter reports a BPP of 8 out of 8. ZUMLA is normal at14.8 cm. heart rate 135 bpm. US/US OB BPP w non-stress IMPRESSION: BPP 8 out of 8. Impression dictated by: Terry Puentes Jr., D.O. 01/08/2025 12:44 PM Dictation [facility] Electronically authenticated by: [id number] Y Date: 2:44 Dictated By: Terry Puentes M.D. Signed By:01/08/25 1246 DD/ 1244 TD/TT: Web Methods Developer: us Rocio Lozano DO [facility] Final Result documented in this encounter Visit Diagnoses Not on filedocumented in this encounter Additional Health Concerns Active Problems Noted Date Diagnosed Date OB Reminders 07/11/2024 documented as of this encounter Care Teams Route Carrier Relationship Specialty Start Date End Date Unallocated, Noms Provider, [address] [place] [address] PCP - General Family Medicine 06/23/23 documented as of this encounter
--- OUTSIDE RECORDS SUMMARY | 2025-01-11 06:58 | XMS_ITS | Encounter Summary ---
Author Organization [facility] Address [address] [place] [address] Care Team Providers Care Sanitary Landfill Supervisor Name Role Phone Unallocated, Noms Provider [facility] Encounter Details Date Type Department Care Team (Late st Contact Info) Description 09/12/2024 Abstract [facility] [place] [facility] [address] [facility] [place] [address] José Lozano DO [address] [facility] [place] [address] Social History Tobacco Use Types Packs/Day Years [...] AM EDT Routine [facility] [address] [facility] [phone] Rosaura Li, PARTS FACILITATOR [address] [place] [address] documented as of this encounter Goals Goal Patient Goal Type Associated Problems Recent Progress Patient-Stated? Author Reminders Care Plan OB Reminders No Jennifer Ayala RN documented as of this encounter Visit Diagnoses Not on filedocumented in this encounter Additional Health Concerns Active Problems Noted Date Diagnosed Date OB Reminders 07/11/2024 documented as of this encounter Care Teams Sanitary Landfill Supervisor Relationship Specialty Start Date End Date Unallocated, Noms Justina, [address] [place] [address] PCP - General Family Medicine 06/23/23 documented as of this encounter
--- OUTSIDE RECORDS SUMMARY | 2025-01-11 06:59 | XMS_ITS | CCD ---
Author Organization [facility] [place] [facility] Care Team Providers Care Skin Care Consultant Name Role Phone DR JANES GARCIA Admitting Unavailable JOSE, DR JANES Escobar Attending Unavailable REQUEST, NONE LISTED Primary Care Unavaila verna GARCIA, DR JANES Escobar Consulting Unavailable Lisandro Buitrago Unavailable DO Lisandor Buitrago Attending Provider Tyrell Stiles Unavailable Lisandro Buitrago Attending Unavailable Lisandro Buitrago Admitting Unavailable Unallocated MD, Noms Provider Primary Care Provi ulysses ROCIO LOZANO Attending Unavailable NADINE GALVAN Attending Unavailable ATTILA BUNDY Attending Unavailable ATTILA BUNDY Attending Unavailable ROCIO LOZANO Attending Unavailable NADINE GALVAN Attending Unavailable BLAKE, ROCIO Attending Unavailable ROCIO LOZANO Referring Unavailable NADINE GALVAN Attending Unavailable ROCIO LOZANO Attending Unavailable Zita Alanis Attending Unavailable Zita Alanis Primary Care Unavailable Medications Current Medications Medication Drug Class(es) [...] 08/21/2024 08/29/2024 Discontinued 21 day ethinyl estradiol 0.059720 mg/hr / etonogestrel 0.005 mg/hr vaginal system [...] Test Name Value Interpretation Reference Range Facility Outside Recordson 01-09-2025 Outside Records [id number] [facility] [id number] [facility] on 01-08-2025 [place] [address] Ultrasound Report Signed Patient: ALONDRA BEAVER MR#: [id number] : 1995 Acct:[id number] Age/Sex: 29 / F ADM Date: 01/08/25 Loc: US Attending Dr: Rocio Lozano D.O. Ordering Physician: Rocio Lozano D.O. Date of Service: 01/08/25 Procedure(s): US OB BPP w non-stress Accession Number(s): [id number] cc: Rocio Lozano D.O.; Zita Alanis M.D. [place] [address] Patient Name: ALONDRA BEAVER MRN: [id number] date: 1995 Sex: F Assigned Patient Location: Current Patient Location: [facility] [place] [facility] Accession/Order Number: [id number] Exam Date: 01/08/2025 12:03 Report Date: 01/08/2025 12:44 At the request of: ROCIO LOZANO DO Procedure: US OB BPP w non-stress Biophysical profile. Reason for exam: Abnormal BPP. COMPARISON: 01/04/2025 TECHNIQUE: Transabdominal imaging of the gravid uterus was obtained. FINDINGS: The pesticide use medical coordinator reports a BPP of 8 out of 8. ZULMA is normal at 14.8 cm. heart rate 135 bpm. US/US OB BPP w non-stress IMPRESSION: BPP 8 out of 8. Impression dictated by: Terry Puentes Jr., D.O. 01/08/2025 12:44 PM Dictation Location: [place] [address] Electronically authenticated by: [id number] Y Date: 01/08/2025 12:44 Dictated By: Terry Puentes M.D. Signed By: 01/08/25 1246 DD/ 1244 TD/TT: Candy Separator Hard: [facility] Radiology, Radiologist, - 01/08/2025 [place] [address] Ultrasound Report Signed Patient: ALONDRA BEAVER MR#: [id number] : 1995 Acct:[id number] Age/Sex: 29 / F ADM Date: 01/08/25 Loc: US Attending Dr: Rocio Lozano D.O. Ordering Physician: Rocio Lozano D.O. Date of Service: 01/08/25 Procedure(s): US OB BPP w non-stress Accession Number(s): [id number] cc: Rocio Lozano D.O.; Zita Alanis M.D. The [place] [address] Patient Name: ALONDRA BEAVER MRN: [facility]:[id number] date: 1995 Sex: F Assigned Patient Location: Current Patient Location: [facility] [place] Accession/Order Number: [id number] Exam Date: 01/08/2025 12:03 Report Date: 01/08/2025 12:44 At the request of: ROCIO LOZANO DO Procedure: US OB BPP w non-stress Biophysical profile. Reason for exam: Abnormal BPP. COMPARISON: 01/04/2025 TECHNIQUE: Transabdominal imaging of the gravid uterus was obtained. FINDINGS: The pesticide use medical coordinator reports a BPP of 8 out of 8. ZULMA is normal at 14.8 cm. heart rate 135 bpm. US/US OB BPP w non-stress IMPRESSION: BPP 8 out of 8. Impression dictated by: Terry Puentes Jr., D.O. 01/08/2025 12:44 PM Dictation Location: [place] [address] Electronically authenticated by: [id number] Y Date: 01/08/2025 12:44 Dictated By: Terry Puentes M.D. Signed By: 01/08/25 1246 DD/ 43 TD/TT: Candy Separator Hard: [facility] Radiology Study observation (narrative) [facility] US OB BPP W NON-STRESS Ordered By: Radiologist Radiology on 01-08-2025 [facility] Work Phone: US OB BPP W NON-STRESS on 01-04-2025 [place] [address] Ultrasound Report Signed Patient: ALONDRA BEAVER MR#: [id number] : 1995 Acct:[id number] Age/Sex: 29 / F ADM Date: 01/04/25 Loc: US Attending Dr: Rocio Lozano D.O. Ordering Physician: Rocio Lozano D.O. Date of Service: 01/04/25 Procedure(s): US OB BPP w non-stress Accession Number(s): [id number] cc: Rocio Lozano D.O.; Zita Alanis M.D. [place] [address] Patient Name: ALONDRA BEAVER MRN: [id number] date: 1995 Sex: F Assigned Patient Location: [facility] Current Patient Location: Accession/Order Number: [id number] Exam Date: 01/04/2025 07:10 Report Date: 01/04/2025 10:27 At the request of: ROCIO LOZANO DO Procedure: US OB BPP w non-stress BIOPHYSICAL PROFILE: CLINICAL INFORMATION: ZULMA BORDERLINE LOW O28.8 COMPARISON: None There is a single live intrauterine gestation in cephalic presentation. The reported gestational age is 32 weeks 3 days. The heart rate [id number] beats per minute. FINDINGS: TONE: 1 or [...] Lu M.D. 01/04/2025 10:27 AM Dictation Location: [place] [address] Electronically authenticated by: [id number] Y Date: 01/04/2025 10:27 Dictated By: Zita Lu M.D. Signed By: 01/04/25 1030 DD/ 1027 TD/TT: Candy Separator Hard: [facility] Radiology, Radiologist, MD - 01/04/2025 [place] [address] Ultrasound Report Signed Patient: ALONDRA BEAVER MR#: [id number] : 1995 Acct:[id number] Age/Sex: 29 / F ADM Date: 01/04/25 Loc: US Attending Dr: Rocio Lozano D.O. Ordering Physician: Rocio Lozano D.O. Date of Service: 01/04/25 Procedure(s): US OB BPP w non-stress Accession Number(s): [id number] cc: Rocio Lozano D.O.; Zita Alanis M.D. The [place] [id number] Patient Name: ALONDRA BEAVER MRN: [facility]:[id number] date: 1995 Sex: F Assigned Patient Location: [facility] Current Patient Location: Accession/Order Number: [id number] Exam Date: 01/04/2025 07:10 Report Date: 01/04/2025 10:27 At the request of: ROCIO LOZANO DO Procedure: US OB BPP w non-stress BIOPHYSICAL PROFILE: CLINICAL INFORMATION: ZULMA BORDERLINE LOW O28.8 COMPARISON: None There is a single live intrauterine gestation in cephalic presentation. The reported gestational age is 32 weeks 3 days. The heart rate [id number] beats per minute. FINDINGS: TONE: 1 or [...] fluid greater than 2 cm [Y] 2/2 UZLMA: 13.4 cm Total score: 6/8 US/US OB BPP w non-stress IMPRESSION: FAILED BIOPHYSICAL PROFILE Impression dictated by: Zita Lu M.D. 01/04/2025 10:27 AM Dictation Location: [employer] Electronically authenticated by: [id number] Y Date: 01/04/2025 10:27 Dictated By: Zita Lu M.D. Signed By: 01/04/25 1030 DD/ 1027 TD/TT: Candy Separator Hard: [facility] Radiology Study observation (narrative) [facility] US OB BPP W NON-STRESS Ordered By: Radiologist Radiology on 01-04-2025 [facility] Work Phone: Urinalysis macro (dipstick) panel (U)on 01-02-2025 Bilirubin, UA Negative Negative - 4(70) +++ mg/dL [facility] Blood, UA Negative Negative - 50 Mark/mcL [facility] Clarity, UA Clear [facility] Color, UA Yellow [facility] Glucose, UA Negative Negative - 2000(110) ++++ mg/dL [facility] Interpretation and review of laboratory results Abnormal [facility] Ketones, UA Negative Negative - 160(16) ++++ mg/dL [facility] Leukocytes, UA Positive Negative - 500+++ Mahsa/mcL [facility] Comment on above: Trace Nitrite, UA Negative Negative - Positive [facility] pH, UA 6.5 5 - 9 [facility] Protein, UA Negative Negative - 2000(20) ++++ mg/dL [facility] Spec Grav, UA 1.015 1 - 1.03 [facility] Urobilinogen, UA 0.2 0.2 - 12 mg/dL [facility] US OB FOLLOW UP TRANSABDOMIN AL [...] UA Negative Negative - 4(70) +++ mg/dL [facility] Blood, UA Negative Negative - 50 Mark/mcL [facility] Clarity, UA Clear [facility] Color, UA Yellow [facility] Glucose, UA Negative Negative - 1999(110) ++++ mg/dL [facility] Interpretation and review of laboratory results Abnormal [facility] Ketones, UA Negative Negative - 160(16) ++++ mg/dL [facility] Leukocytes, UA 3+ Negative - 500+++ Mahsa/mcL [facility] pH, UA 6 5 - 9 [facility] Protein, UA Negative Negative - 1999(20) ++++ mg/dL [facility] Spec Grav, UA 1.015 1 - 1.03 [facility] Urobilinogen, UA 0.2 0.2 - 12 mg/dL [facility] GLUCOSE TOLERANCE 3 HOURon 0 11-28-2024 GLUCOSE TOLERANCE 3 HOUR mg/dL [facility] Comment on above: GLU FAST 93 (<95) C ol: 11/28/24 0641 GLU 1HR 149 (<180) Col: 11/28/24 0743 GLU 2HR 118 (<155) Col: 11/28/24 0843 GLU 3HR 81 (<140) Col: 11/28/24 0942 [facility] ALL CBC WITH AUTO DIFFon BASOPHILS ABSOLUTE AUTO 0 [facility] Basophils/100 WBC (Bld) 0.4 % 0.2 - 2.0 % [facility] Eosinophils/100 WBC (Bld) 1.2 % 0.9 - 7.0 % [facility] Erythrocyte distribution width (RBC) [Ratio] 13 % 11.0 - 15.0 % [facility] Hematocrit (Bld) [Volume fraction] 35.6 % Low 36.0 - 48.0 % [facility] Hemoglobin (Bld) [Mass/Vol] 11.9 g/dL Low 12.0 - 16.0 g/dL [facility] IMMATURE GRANULOCYTES ABS AUTO 0.13 High [facility] Immature granulocytes/100 WBC (Bld) 1.2 % High 0.0 - 0.5 % [facility] Interpretation and review of laboratory results Abnormal [facility] LYMPHOCYTES ABSOLUTE AUTO 1.3 [facility] Lymphocytes/100 WBC (Bld) 11.6 % Low 20.5 - 60.0 % [facility] MCH (RBC) [Entitic mass] 30.9 pg 26.7 - 34.0 pg [facility] MCHC (RBC) [Mass/Vol] 33.4 g/dL 29.9 - 35.2 g/dL [facility] MCV (RBC) [Entitic vol] 92.5 fL 81.0 - 99.0 fL [facility] MONOCYTES ABSOLUTE AUTO 0.5 [facility] Monocytes/100 WBC (Bld) 4.9 % 1.7 - 12.0 % [facility] NEUTROPHILS ABSOLUTE AUTO 8.8 High [facility] Neutrophils/100 WBC (Bld) 80.7 % High 43.0 - 75.0 % [facility] Platelet mean volume (Bld) [Entitic vol] 10.5 fL 9.5 - 13.5 fL [facility]H EO # 0.1 [facility] PLT [address] [facility] RBC 3.85 Low [facility] WBC 10.9 [facility] Urinalysis macro (dipstick) panel (U)on 11-22-2024 Bilirubin, UA Negative Negative - 4(70) +++ mg/dL [facility] Blood, UA Negative Negative - 50 Mark/mcL [facility] Clarity, UA Clear [facility] Color, UA Yellow [facility] Glucose, UA Negative Negative - 1999(110) ++++ mg/dL [facility] Interpretation and review of laboratory results Abnormal [facility] Ketones, UA Negative Negative - 160(16) ++++ mg/dL [facility] Leukocytes, UA Moderate Negative - 500+++ Mahsa/mcL [facility] Nitrite, UA Negative Negative - Positive [facility] pH, UA 6 5 - 9 [facility] Protein, UA Negative Negative - 1999(20) ++++ mg/dL [facility] Spec Grav, UA 1.01 1 - 1.03 [facility] Urobilinogen, UA 0.2 0.2 - 12 mg/dL [facility] Urinalysis macro (dipstick) panel (U)on 10-26-2024 Bilirubin, UA Negative Negative - 4(70) +++ mg/dL [facility] Blood, UA Negative Negative - 50 Mark/mcL [facility] Clarity, UA Clear [facility] Color, UA Yellow [facility] Glucose, UA Negative Negative - 1999(110) ++++ mg/dL [facility] Interpretation and review of laboratory results Normal [facility] Ketones, UA Negative Negative - 160(16) ++++ mg/dL [facility] Leukocytes, UA Negative Negative - 500+++ Mahsa/mcL [facility] Nitrite, UA Negative Negative - Positive [facility] pH, UA 6.5 5 - 9 [facility] Protein, UA Negative Negative - 1999(20) ++++ mg/dL [facility] Spec Grav, UA 1.02 1 - 1.03 [facility] Urobilinogen, UA 0.2 0.2 - 12 mg/dL [facility] US OB 14+ WEEKS ANATOMY SCAN [...] PHD at 27-Oct-2024 06:14:52 AM [facility] Normal Not Available Comment on above: Order Comment: US OB ANATOMY SINGLE W US OB CERVICAL LENGTH Estimated Date of Delivery: 02/26/25 Gestational Age as of 09/28/2024: 18w3d BOX TESTon 08-29-2024 BOX TEST SENT OUT [facility] [id number] [facility] BOX2 08-29-24 [facility] Urinalysis macro (dipstick) panel (U)on 08-29-2024 Bilirubin, UA Negative Negative - 4(70) +++ mg/dL [facility] Blood, UA Negative Negative - 50 Mark/mcL [facility] Clarity, UA Clear [facility] Color, UA Yellow [facility] Glucose, UA Negative Negative - 1999(110) ++++ mg/dL [facility] Interpretation and review of laboratory results Normal [facility] Ketones, UA Negative Negative - 160(16) ++++ mg/dL [facility] Leukocytes, UA Negative Negative - 500+++ Mahsa/mcL [facility] Nitrite, UA Negative Negative - Positive [facility] pH, UA 6 5 - 9 [facility] Protein, UA Negative Negative - 1999(20) ++++ mg/dL [facility] Spec Grav, UA 1.02 1 - 1.03 [facility] Urobilinogen, UA 0.2 0.2 - 12 mg/dL [facility] HCG ( test) Ql (U)o n 08-10-2024 Interpretation and review of laboratory results Abnormal [facility] Preg Test, Ur Positive Negative [facility] US OB < 14 WEEKS EARLYon [...] II, MD, PHD at 11-Aug-2024 08:40:37 AM [facility] Normal Not Available Comment on above: Order Comment: US OB Patient's last menstrual period was 05/09/2024 (exact date). Urinalysis macro (dipstick) panel (U)on 08-10-2024 Bilirubin, UA Negative Negative - 4(70) +++ mg/dL [facility] Blood, UA Negative Negative - 50 Mark/mcL [facility] Clarity, UA Clear [facility] Color, UA Yellow [facility] Glucose, UA Negative Negative - 2000(110) ++++ mg/dL [facility] Interpretation and review of laboratory results Abnormal [facility] Ketones, UA Positive Negative - 160(16) ++++ mg/dL [facility] Comment on above: 40 Leukocytes, UA Negative Negative - 500+++ Mahsa/mcL [facility] Nitrite, UA Negative Negative - Positive [facility] pH, UA 5.5 5 - 9 [facility] Protein, UA Negative Negative - 2000(20) ++++ mg/dL [facility] Spec Grav, UA 1.02 1 - 1.03 [facility] Urobilinogen, UA 0.2 0.2 - 12 mg/dL [facility] Outside Recordson 04-20-2024 Outside Records [id number] [facility] 03-31-2024 Outside Records [id number] [facility] 02-18-2024 Consent Forms [id number] 3D[facility] Cervical or vaginal smear or scraping studyon 02-08-2024 [facility] HCG ( test) Ql (U)o n 02-08-2024 Interpretation and review of laboratory results Normal [facility] Preg Test, Ur Negative [facility] CMP Standardon 02-03-2024 eGFR Non AA >60 Invalid Interpretation Code [facility] Comment on above: Performed By: #### 1 [id number], [id number], 4550882, 5855515, 8799301, 4973413, 1332452 #### [facility] (DEFAULT) [address] [place] [address] 33315 eGFR AA >60 Invalid Interpretation Code [facility] Comment on above: Performed By: #### 1 [id number], [id number], 9038951, 5963965, 6151746, 4226265, 4827662 #### [facility] (DEFAULT) [address] [place] [address] 91068 Albumin [Mass/Vol] 4.4 g/dL Normal 3.5-5.0 [facility] Comment on above: Performed By: #### 1 [id number], [id number], 1079524, 8792315, 8488959, 7815295, 3239857 #### [facility] (DEFAULT) [address] [place] [address] 89021 Albumin/Globulin [Mass ratio] 1.4 {ratio} Normal 1.4-2.6 [facility] Comment on above: Performed By: #### 1 [id number], [id number], 2749710, 0234047, 7097048, 0888762, 9449894 #### [facility] (DEFAULT) [address] [place] [address] 97646 Alk Phos 67 IU/L Normal 32-91 [facility] Comment on above: Performed By: #### 1 [id number], [id number], 6087724, 5818249, 8318160, 6810483, 6360035 #### [facility] (DEFAULT) [address] [place] [address] 90530 ALT [Catalytic activity/Vol] 19.0 U/L Normal 14.0-54.0 [facility] Comment on above: Performed By: #### 1 [id number], [id number], 7649734, 9487658, 3599541, 2515584, 8203009 #### [facility] (DEFAULT) [address] [place] [address] 69091 Anion gap [Moles/Vol] 10.8 mmol/L Normal 5.0-19.0 [facility] Comment on above: Performed By: #### 1 [id number], [id number], 9307847, 5754447, 5410796, 7467321, 9542256 #### [facility] (DEFAULT) [address] [place] [address] 09358 AST [Catalytic activity/Vol] 21 U/L Normal 15-41 [facility] Comment on above: Performed By: #### 1 [id number], 4073529864, 4145354, 6566462, 1891465, 2090182, 7833490 #### [facility] (DEFAULT) [address] [place] [address] 75719 Bili Total 0.7 mg/dL Normal 0.3-1.2 [facility] Comment on above: Performed By: #### 1 [id number], 4896331105, 3956038, 0680224, 8752867, 8143156, 5753310 #### [facility] (DEFAULT) [address] [place] [address] 40417 Calcium [Mass/Vol] 8.9 mg/dL Normal 8.9-10.3 [facility] Comment on above: Performed By: #### 1 [id number], 6809624164, 6119973, 0245714, 6765764, 1269756, 6924961 #### [facility] (DEFAULT) [address] [place] [address] 94116 Chloride [Moles/Vol] 100 mmol/L Low 101-111 [facility] Comment on above: Performed By: #### 1 [id number], 6307029284, 4725863, 3447105, 7565513, 3780975, 5946034 #### [facility] (DEFAULT) [address] [place] [address] 42540 CO2 [Moles/Vol] 26 mmol/L Normal 21-32 [facility] Comment on above: Performed By: #### 1 [id number], 8004072001, 1286191, 9030195, 7674307, 4156249, 7858593 #### [facility] (DEFAULT) [address] [place] [address] 05486 Creatinine [Mass/Vol] 0.86 mg/dL Normal 0.60-1.30 [facility] Comment on above: Performed By: #### 1 [id number], 6466035948, 2350542, 4731644, 8197925, 5167525, 0522065 #### [facility] (DEFAULT) [address] [place] [address] 70176 Globulin (S) [Mass/Vol] 3.1 g/dL Normal 1.5-4.3 [facility] Comment on above: Performed By: #### 1 [id number], 2202737849, 7839260, 2096965, 1220596, 3854343, 7996349 #### [facility] (DEFAULT) [address] [place] [address] 12785 Glucose [Mass/Vol] 90.0 mg/dL Normal 74.0-118.0 [facility] Comment on above: Performed By: #### 1 [id number], 5098995915, 6936229, 6156984, 5362945, 4019599, 0764130 #### [facility] (DEFAULT) [address] [place] [address] 97328 Osmolality 267 mOsm/L Invalid Interpretation Code [facility] Comment on above: Performed By: #### 1 [id number], 0844623392, 2428268, 5340246, 0188693, 5635812, 0698902 #### [facility] (DEFAULT) [address] [place] [address] 89696 Potassium [Moles/Vol] 3.8 mmol/L Normal 3.6-5.1 [facility] Comment on above: Performed By: #### 1 [id number], 8056980706, 8439218, 6275943, 7443819, 8029798, 6111395 #### [facility] (DEFAULT) [address] [place] [address] 41757 Protein [Mass/Vol] 7.5 g/dL Normal 6.5-8.1 [facility] Comment on above: Performed By: #### 1 [id number], 6457637554, 1966495, 1364829, 2088479, 4013334, 2249607 #### [facility] (DEFAULT) [address] [place] [address] 89900 Sodium [Moles/Vol] 133.0 mmol/L Low 136.0-144.[address] [facility] Comment on above: Performed By: #### 1 [id number], 8260868462, 1545424, 7036905, 1758440, 5722561, 3465743 #### [facility] (DEFAULT) [address] [place] [address] 22526 Urea nitrogen [Mass/Vol] 17 mg/dL Normal - [facility] Comment on above: Performed By: #### 1 [id number], 5436098016, 1018084, 1153573, 1243976, 3198988, 4976730 #### [facility] (DEFAULT) [address] [place] [address] 12841 Urea nitrogen/Creatinine [Mass ratio] 19.7 mg/mg High 4.6-16.2 [facility] Comment on above: Performed By: #### 1 [id number], 7157597455, 6406858, 8461391, 6512567, 5669110, 4345147 #### [facility] (DEFAULT) [address] [place] [address] 29290 GGTon 02-03-2024 Gamma glutamyl transferase [Catalytic activity/Vol] 20.0 U/L Normal 7.0-50.0 [facility] Comment on above: Performed By: #### 1 [id number], 8177891155, 6274538, 0830459, 2199470, 0849392, 2668853 #### [facility] (DEFAULT) [address] [place] [address] 63603 Iron Levelon 02-03-2024 Iron [Mass/Vol] 93.0 ug/dL Normal 28.0-170.0 [facility] Comment on above: Performed By: #### 1 [id number], 1502443573, 5170920, 2123133, 2445161, 7210573, 2410222 #### [facility] (DEFAULT) [address] [place] [address] 20021 LDHon 02-03-2024 LDH 126.0 IU/L Normal 98.0-192.0 [facility] Comment on above: Performed By: #### 1 [id number], 0125252582, 9186167, 7941606, 7779182, 0229224, 5431202 #### [facility] (DEFAULT) [address] [place] [address] 48661 Lipid Panel Standardon 02-02 Cholesterol [Mass/Vol] 214.0 mg/dL High 66.0-200.0 [facility] Comment on above: Performed By: #### 1 [id number], 8046347973, 9949845, 2930468, 7470833, 5366459, 8707046 #### [facility] (DEFAULT) [address] [place] [address] 95547 Cholesterol in HDL [Mass/Vol] 64 mg/dL Normal 40-71 [facility] Comment on above: Performed By: #### 1 [id number], 2155251607, 9220737, 3625364, 3713092, 2205845, 8098468 #### [facility] (DEFAULT) [address] [place] [address] 33450 Cholesterol in LDL [Mass/Vol] 144 mg/dL High 1-100 [facility] Comment on above: Performed By: #### 1 [id number], 9150586011, 2531411, 4063661, 0326880, 0902655, 1748922 #### [facility] (DEFAULT) [address] [place] [address] 37718 Cholesterol.total/C holesterol in HDL [Mass ratio] 3.3 {ratio} Normal 0.0-4.5 [facility] Comment on above: Performed By: #### 1 [id number], [id number], [id number], [id number], [id number], [id number], [id number] #### [facility] (DEFAULT) [address] [place] [address] Triglyceride [Mass/Vol] 28.0 mg/dL Normal 0.0-150.0 [facility] Comment on above: Performed By: #### 1 [id number], [id number], [id number], [id number], [id number], [id number], [id number] #### [facility] (DEFAULT) [address] [place] [address] VLDL. 6 mg/dL Normal 5-40 [facility] Comment on above: Performed By: #### 1 [id number], [id number], [id number], [id number], [id number], [id number], [id number] #### [facility] (DEFAULT) [address] [place] [address] Phoson 02-03-2024 Phosphate [Mass/Vol] 2.9 mg/dL Normal 2.5-4.6 [facility] Comment on above: Performed By: #### 1 [id number], [id number], [id number], [id number], [id number], [id number], [id number] #### [facility] (DEFAULT) [address] [place] [id number] Uric Acidon 02-03-2024 Urate [Mass/Vol] 4.0 mg/dL Normal 2.6-8.0 [facility] Comment on above: Performed By: #### 1 [id number], [id number], [id number], [id number], [id number], [id number], [id number] #### [facility] (DEFAULT) [address] [place] [id number] XR chest 2V*on 03-02-2023 XR chest 2V* [facility] [place] [address] XRay Report Signed Patient: Alondra Sanches MR#: [id number] : 1995 Acct:[id number] Age/Sex: 27 / F ADM Date: 03/02/23 [facility]: Lisandro Buitrago DO Copies to: Lisandro Buitrago DO Ordering Provider: Lisandro Buitrago DO Date of Service: 03/02/23 XR/XR shoulder LT min 2V*: Left shoulder pain ([id number]) XR/XR chest 2V*: Left shoulder pain;Chest pain [...] Puentes Jr., D.OReese03/02/2023 4:13 PM Dictation Location: [place] [address] Transcribed By: [facility] 03/02/231612 Dictated By: Terry Puentes Jr, DO 03/02/231611 Signed By: 03/02/231612 [facility] CBC W MANUAL DIFFon 07-29-19 22 ATYPICAL LYMPH # Normal [facility] Comment on above: Performed By: #### C GARRET #### [facility] [address] [address] [address] Susannah Hopkins ATYPICAL LYMPH % Normal [facility] Comment on above: Performed By: #### C BCMAN #### [facility] [address] [address] [address] Susannah Hopkins BAND # 0.3 103/ul Normal 0.0-0.3 [facility] Comment on above: Performed By: #### C BCMAN #### [facility] [address] [address] [address] Susannah Hopkins BAND % 2 % Normal 0-5 [facility] Comment on above: Performed By: #### C BCMAN #### [facility] [address] [address] [address] Susannah Hopkins BASOM # 0.00 103/ul Normal 0.00-0.10 [facility] Comment on above: Performed By: #### C GARRET #### [facility] [address] [place] [address] Dr. Susannah Hopkins BASOM % 0.0 % Critically low 0.2-2.[address] [facility] Comment on above: Performed By: #### C BCMAN #### [facility] [address] [address] [address] Susannah Hopkins BLAST # Normal [facility] Comment on above: Performed By: #### C BCMAN #### [facility] [address] [place] [address] Dr. Susannah Hopkins BLAST % Normal [facility] Comment on above: Performed By: #### C BCOCTAVIANO #### [facility] [address] [place] [address] Dr. Susannah Hopkins CORRECTED WBC Normal 4.0-11.0 [facility] Comment on above: Performed By: #### C BCOCTAVIANO #### [facility] [address] [place] [address] Dr. Susannah Hopkins EOS # 0.00 103/ul Normal 0.00-0.70 [facility] Comment on above: Performed By: #### C BCOCTAVIANO #### [facility] [address] [place] [address] Dr. Susannah Hopkins EOS% 0.0 % Critically low 0.9-7.0 [facility] Comment on above: Performed By: #### C BCOCTAVIANO #### [facility] [address] [place] [address] Dr. Susannah Hopkins HCT 46.0 % Normal 36.0-48.0 [facility] Comment on above: Performed By: #### C BCMAN #### [facility] [address] [place] [address] Dr. Susannah Hopkins HGB 15.7 g/dl Normal 12.0-16.0 [facility] Comment on above: Performed By: #### C BCMAN #### [facility] [address] [place] [address] Dr. Susannah Hopkins LYMPHM # 0.69 103/ul Critically low 1.20-3.80 [facility] Comment on above: Performed By: #### C BCMAN #### [facility] [address] [place] [address] Dr. Susannah Hopkins LYMPHM% 4.0 % Critically low 20.5-60.[address] [facility] Comment on above: Performed By: #### C GARRET #### [facility] [address] [place] [address] Dr. Susannah Hopkins MCH 30.1 pg Normal 26.7-34.0 [facility] Comment on above: Performed By: #### C GARRET #### [facility] [address] [place] [address] Dr. Susannah Hopkins MCHC 34.1 g/dl Normal 29.9-35.2 [facility] Comment on above: Performed By: #### C GARRET #### [facility] [address] [place] [address] Dr. Susannah Hopkins MCV 88.3 fL Normal 81.0-99.0 [facility] Comment on above: Performed By: #### C GARRET #### [facility] [address] [place] [address] Dr. Susannah Hopkins METAMYELOCYTE # Normal [facility] Comment on above: Performed By: #### C GARRET #### [facility] [address] [place] [address] Dr. Susannah Hopkins METAMYELOCYTE % Normal [facility] Comment on above: Performed By: #### C GARRET #### [facility] [address] [place] [address] Dr. Susannah Hopkins MONOM# 1.20 103/ul Critically high 0.30-0.80 [facility] Comment on above: Performed By: #### C GARRET #### [facility] [address] [place] [address] Dr. Susannah Hopkins MONOM% 7.0 % Normal 1.7-12.0 [facility] Comment on above: Performed By: #### C GARRET #### [facility] [address] [place] [address] Dr. Susannah Hopkins MPV 9.8 fL Normal 9.5-13.5 [facility] Comment on above: Performed By: #### C ESDRASOCTAVIANO #### [facility] [address] [address] [address] Susannah Hopkins MYELOCYTE # Normal [facility] Comment on above: Performed By: #### C BCOCTAVIANO #### [facility] [address] [address] [address] Susannah Hopkins MYELOCYTE % Normal [facility] Comment on above: Performed By: #### C GARRET #### [facility] [address] [address] [address] Susannah Hopkins NRBC Normal [facility] Comment on above: Performed By: #### C GARRET #### [facility] [address] [address] [address] Susannah Hopkins PLT 278 103/ul Normal 150-450 [facility] Comment on above: Performed By: #### C GARRET #### [facility] [address] [address] [address] Susannah Hopkins RBC 5.21 106/ul Normal 4.20-5.40 [facility] Comment on above: Performed By: #### C GARRET #### [facility] [address] [address] [address] Susannah Hopkins RDW 11.7 % Normal 11.0-15.0 [facility] Comment on above: Performed By: #### C GARRET #### [facility] [address] [address] [address] Susannah Hopkins SEG # 14.96 103/ul Critically high 1.40-6.50 [facility] Comment on above: Performed By: #### C BCOCTAVIANO #### [facility] [address] [address] [address] Susannah Hopkins SEG % 87.0 % Critically high 43.0-75.0 [facility] Comment on above: Performed By: #### C GARRET #### [facility] [address] [address] [address] Susannah Hopkins WBC 17.2 103/ul Critically high 4.0-11.0 [facility] Comment on above: Performed By: #### C GARRET #### [facility] [address] [place] [address] Dr. Susannah Hopkins INFLUENZA A AND B AGon 07-28 INFLUANE SEE BELOW Normal [facility] Comment on above: Result Comment: Nega tive for Flu A protein angiten. Infection due to Flu A cannot be ruled out. Flu A angiten in the sample may be below the detection limit of the test. Performed By: #### I NFLUAB #### [facility] [address] [place] [address] Dr. Susannah Hopkins INFLUBNEG SEE BELOW Normal [facility] Comment on above: Result Comment: Nega tive for Flu B protein antigen. Infection due to Flu B cannot be ruled out. Flu B antigen in the sample may be below the detection limit of the test. Performed By: #### I NFLUAB #### [facility] [address] [place] [address] Dr. Susannah Hopkins INFLUENZA A AG Negative Normal NEGATIVE SEE COMMENT [facility] Comment on above: Performed By: #### I NFLUAB #### [facility] [address] [place] [address] Dr. uSsannah Hopkins INFLUENZA B AG Negative Normal NEGATIVE SEE COMMENT [facility] Comment on above: Performed By: #### I NFLUAB #### [facility] [address] [place] [address] Dr. Susannah Hopkins INTERNAL CONTROLS Within Normal Limits Normal Within Normal Limits [facility] Comment on above: Performed By: #### I NFLUAB #### [facility] [address] [place] [address] Dr. Susannah Hopkins PREG HCG QUALon 07-28-2021 , QUAL Negative Normal NEGATIVE [facility] Comment on above: Performed By: #### P REG #### [facility] [address] [place] [address] Dr. Susannah Hopkins PROF 14(COMP METB)on 022 Albumin [Mass/Vol] 4.4 g/dL Normal 3.4-5.0 [facility] Comment on above: Performed By: #### C MP #### [facility] [address] [place] [address] Dr. Susannah Hopkins Albumin/Globulin [Mass ratio] 1.1 {ratio} Normal [facility] Comment on above: Performed By: #### C MP #### [facility] [address] [place] [address] Dr. Susannah Hopkins ALP [Catalytic activity/Vol] 71 U/L Normal 46-116 [facility] Comment on above: Performed By: #### C MP #### [facility] [address] [place] [address] Dr. Susannah Hopkins ALT [Catalytic activity/Vol] 19 U/L Normal 14-59 [facility] Comment on above: Performed By: #### C MP #### [facility] [address] [place] [address] Dr. Susannah Hopkins Anion gap [Moles/Vol] 15.1 mmol/L Normal [facility] Comment on above: Performed By: #### C MP #### [facility] [address] [place] [address] Dr. Susannah Hopkins AST [Catalytic activity/Vol] 23 U/L Normal 15-37 [facility] Comment on above: Performed By: #### C MP #### [facility] [address] [place] [address] Dr. Susannah Hopkins Bilirubin [Mass/Vol] 0.9 mg/dL Normal 0.2-1.3 [facility] Comment on above: Performed By: #### C MP #### [facility] [address] [place] [address] Dr. Susannah Hopkins Calcium [Mass/Vol] 9.5 mg/dL Normal 8.5-10.1 [facility] Comment on above: Performed By: #### C MP #### [facility] [address] [place] [address] Dr. Susannah Hopkins Chloride [Moles/Vol] 101 mmol/L Normal 98-107 [facility] Comment on above: Performed By: #### C MP #### [facility] [address] [place] [address] Dr. Susannah Hopkins CO2 [Moles/Vol] 23.8 mmol/L Normal 22.0-30.0 [facility] Comment on above: Performed By: #### C MP #### [facility] [address] [address] [address] Susannah Hopkins Creatinine [Mass/Vol] 1.04 mg/dL Normal 0.52-1.04 [facility] Comment on above: Performed By: #### C MP #### [facility] [address] [address] [address] Susannah Hopkins EGFR-AF TURKMEN >60 Normal >=60 [facility] Comment on above: Performed By: #### C MP #### [facility] [address] [address] [address] Susannah Hopkins EGFR-NON AF TURKMEN >60 Normal >=60 [facility] Comment on above: Performed By: #### C MP #### [facility] [address] [place] [address] Dr. Susannah Hopkins Globulin (S) [Mass/Vol] 3.9 g/dL Normal [facility] Comment on above: Performed By: #### C MP #### [facility] [address] [place] [address] Dr. Susannah Hopkins Glucose [Mass/Vol] 157 mg/dL Critically high 74-106 [facility] Comment on above: Performed By: #### C MP #### [facility] [address] [place] [address] Dr. Susannah Hopkins Potassium [Moles/Vol] 3.9 mmol/L Normal 3.4-5.0 [facility] Comment on above: Performed By: #### C MP #### [facility] [address] [place] [address] Dr. Susannah Hopkins Protein [Mass/Vol] 8.3 g/dL Critically high 6.1-8.2 [facility] Comment on above: Performed By: #### C MP #### [facility] [address] [place] [address] Dr. Susannah Hopkins Sodium [Moles/Vol] 136 mmol/L Critically low 137-145 [facility] Comment on above: Performed By: #### C MP #### [facility] [address] [place], [place] [address] Dr. Susannah Hopkins Urea nitrogen [Mass/Vol] 20.0 mg/dL Critically high 7.0-18.0 [facility] Comment on above: Performed By: #### C MP #### [facility] [address] [place], [place] [address] Dr. Susannah Hopkins Urea nitrogen/Creatinine [Mass ratio] 19.2 mg/mg Normal [facility] Comment on above: Performed By: #### C MP #### [facility] [address] [place], [place] [address] Dr. Susannah Hopkins Vital Signs Date Time Vital Sign Value Performing Clinician Facility 01-02-2025 08:26-0400 Body mass index (BMI) [Ratio] 28.96 kg/m2 Rocio Blake DO Work Phone: [facility] 01-02-2025 08:26-0400 Body weight 74.16 kg Rocio Blake DO Work Phone: [facility] 01-02-2025 08:26-0400 Diastolic blood pressure 76 mm[Hg] Rocio Blake DO Work Phone: [facility] 01-02-2025 08:26-0400 Systolic blood pressure 120 mm[Hg] Rocio Blake DO Work Phone: [facility] 12-19-2024 09:04-0400 Body mass index (BMI) [Ratio] 28.7 kg/m2 Ndaine DE JESUS Work Phone: [facility] 12-19-2024 09:04-0400 Body weight 73.48 kg Nadine DE JESUS Work Phone: [facility] 12-19-2024 09:04-0400 Diastolic blood pressure 78 mm[Hg] Nadine DE JESUS Work Phone: [facility] 12-19-2024 09:04-0400 Systolic blood pressure 104 mm[Hg] Nadine DE JESUS Work Phone: [facility] 12-05-2024 09:23-0400 Body mass index (BMI) [Ratio] 28.52 kg/m2 Rocio Blake DO Work Phone: [facility] 12-05-2024 09:23-0400 Body weight 73.03 kg Rocio Blake DO Work Phone: [facility] 12-05-2024 09:23-0400 Diastolic blood pressure 76 mm[Hg] Rocio Blake DO Work Phone: [facility] 12-05-2024 09:23-0400 Systolic blood pressure 120 mm[Hg] Rocio Blake DO Work Phone: [facility] 11-22-2024 08:52-0400 Body mass index (BMI) [Ratio] 28.19 kg/m2 Nadine Galvan PA Work Phone: [facility] 11-22-2024 08:52-0400 Body weight 72.18 kg Nadine Galvan PA Work Phone: [facility] 11-22-2024 08:52-0400 Diastolic blood pressure 76 mm[Hg] Nadine Mandy PA Work Phone: [facility] 11-22-2024 08:52-0400 Systolic blood pressure 120 mm[Hg] Nadine Mandy PA Work Phone: [facility] 10-26-2024 12:05-0400 Body mass index (BMI) [Ratio] 26.93 kg/m2 Rocio Blake DO Work Phone: [facility] 10-26-2024 12:05-0400 Body weight 68.95 kg Rocio Blake DO Work Phone: [facility] 10-26-2024 12:05-0400 Diastolic blood pressure 68 mm[Hg] Rocio Blake DO Work Phone: [facility] 10-26-2024 12:05-0400 Systolic blood pressure 120 mm[Hg] Rocio Blake DO Work Phone: [facility] 08-29-2024 14:34-0400 Body mass index (BMI) [Ratio] 25.65 kg/m2 Rocio Blake DO Work Phone: [facility] 08-29-2024 14:34-0400 Body weight 65.68 kg Rocio Blake DO Work Phone: [facility] 08-29-2024 14:34-0400 Diastolic blood pressure 72 mm[Hg] Rocio Blake DO Work Phone: [facility] 08-29-2024 14:34-0400 Systolic blood pressure 120 mm[Hg] Rocio Blake DO Work Phone: [facility] 08-10-2024 14:55-0400 Body height 160 cm [facility] Nurse [facility] 08-10-2024 14:55-0400 Body mass index (BMI) [Ratio] 25.18 kg[facility]m2 [facility] 08-10-2024 14:55-0400 Body weight 64.47 [facility] 08-10-2024 14:55-0400 Diastolic blood pressure 76 mm[Hg] [facility] 08-10-2024 14:55-0400 Systolic blood pressure 120 mm[Hg] [facility] 05-16-2024 12:44-0500 Body weight 65.32 kg Attila Bundy MD Work Phone: [facility] 05-16-2024 12:44-0500 Diastolic blood pressure 78 mm[Hg] Attila Bundy MD Work Phone: [facility] 05-16-2024 12:44-0500 Systolic blood pressure 120 mm[Hg] Attila Bundy MD Work Phone: [facility] 02-08-2024 15:08-0400 Body weight 66.22 kg Attila Bundy MD Work Phone: [facility] 02-08-2024 15:08-0400 Diastolic blood pressure 68 mm[Hg] Attila Bundy MD Work Phone: [facility] 02-08-2024 15:08-0400 Systolic blood pressure 130 mm[Hg] Attila Bundy MD Work Phone: [facility] 05-12-2023 07:30-0500 Body height 158.75 cm Tyrell Linsey Other [facility] Other 05-12-2023 07:30-0500 Body mass index (BMI) [Ratio] 25.41 kg/m2 Tyrell Stiles Other [facility] Other 05-12-2023 07:30-0500 Body weight 64.05 kg Tyrell Linsey Other [facility] Other 05-12-2023 07:30-0500 Diastolic blood pressure 78 mm[Hg] Tyrell Stiles Other [facility] Other 05-12-2023 07:30-0500 Respiratory rate 16 /min Tyrell Stiles Other [facility] Other 05-12-2023 07:30-0500 SaO2% (BldA) [Mass fraction] 98 % Tyrell Linsey Other [facility] Other 05-12-2023 07:30-0500 Systolic blood pressure 122 mm[Hg] Tyrell Stiles Other [facility] Other 02-24-2023 12:30-0400 Body height 158.75 cm Lisandro Buitrago Other [facility] Other 02-24-2023 12:30-0400 Body mass index (BMI) [Ratio] 25.2 kg/m2 Lisandro Shizzlrs Other [facility] Other 02-24-2023 12:30-0400 Body weight 63.5 kg Lisandro Martínezs Other [facility] Other 02-24-2023 12:30-0400 Diastolic blood pressure 85 mm[Hg] Lisandroteri Martínezs Other [facility] Other 02-24-2023 12:30-0400 Respiratory rate 16 /min Lisandroteri Martínezs Other [facility] Other 02-24-2023 12:30-0400 SaO2% (BldA) [Mass fraction] 99 % Lisandroteri Martínezs Other [facility] Other 02-24-2023 12:30-0400 Systolic blood pressure 140 mm[Hg] Lisandro Mauricios Other [facility] Other Encounters Encounter Date Encounter Type Care Provider Facility Start: 01-08-2025 End: 01-08-2025 Clinisync Result Encounter Rocio Blake DO Work Phone: [facility] Unsolicited Start: 01-08-2025 End: 01-08-2025 Clinisync Result Encounter Rocio Blake DO Work Phone: [facility] Unsolicited Start: 01-04-2025 End: 01-04-2025 Clinisync Result Encounter Rocio Blake DO Work Phone: [facility] External [facility] Unsolicited Start: 01-04-2025 End: 01-04-2025 Clinisync Result Encounter Rocio Blake DO Work Phone: [facility] Unsolicited Start: 01-02-2025 End: 01-02-2025 Bamboo flowsheet Rocio Blake DO Work Phone: [facility] Start: 01-02-2025 End: 01-02-2025 Bamboo flowsheet Rocio Blake DO Work Phone: [facility] Start: 01-02-2025 End: 01-02-2025 flow sheet Rocio Blake DO Work Phone: [facility] Comment on above: Third trimester preg lindsey ([facility]); 32 weeks gestation of ([facility]); ZULMA (amniotic fluid index) borderline low Start: 01-02-2025 End: 01-02-2025 ambulatory ROCIO BLAKE Not Available Start: 12-19-2024 End: 12-19-2024 flow sheet Nadine DE JESUS Work Phone: [facility] Comment on above: 30 weeks gestation o f ([facility]); Third trimester ([facility]); HSV infection Start: 12-19-2024 End: 12-19-2024 ambulatory NADINE GALVAN Not Available Start: 12-05-2024 End: 12-05-2024 Bamboo flowsheet Rocio Blake DO Work Phone: [facility] Start: 12-05-2024 End: 12-05-2024 Bamboo flowsheet Rocio Blake DO Work Phone: [facility] Start: 12-05-2024 End: 12-05-2024 flow sheet Rocio Blake DO Work Phone: [facility] Comment on above: Third trimester preg lindsey ([facility]); 28 weeks gestation of ([facility]); HSV infection; size inconsistent with dates ([facility]) Start: 12-05-2024 End: 12-05-2024 ambulatory ROCIO [...] Start: 11-22-2024 End: 11-22-2024 flow sheet Nadine Galvan PA Work Phone: [facility] Comment on above: 26 weeks gestation o f ([facility]); Second trimester ([facility]); Elevated glucose tolerance test Start: 11-22-2024 End: 11-22-2024 ambulatory NADINE GARCIAEY Not Available Start: 10-26-2024 End: 10-26-2024 ambulatory ROCIO BLAKE Not Available Start: 10-26-2024 End: 10-26-2024 flow sheet Rocio Blake DO Work Phone: [facility] Comment on above: Second trimester pre gnancy ([facility]); 22 weeks gestation of ([facility]); Diabetes mellitus screening Start: 10-26-2024 End: [...] 11w3d Start: 08-10-2024 End: 08-10-2024 ambulatory ROCIO PERSAUDZIO Not Available Start: 07-11-2024 End: 07-11-2024 flow sheet [facility] Comment on above: GA: 9w0d Start: 07-11-2024 End: 07-11-2024 ambulatory ROCIO PERSAUDZIO Not Available Start: 05-16-2024 End: 05-16-2024 Office outpatient visit 15 minutes Attila Bundy MD Work Phone: [facility] Comment on above: Hormone imbalance (P rimary Dx); Amenorrhea; Missed menses; Family planning; Thyroid disorder screen Start: 05-16-2024 End: 05-16-2024 ambulatory ATTILA BUNDY Not Available Start: 03-30-2024 End: 03-30-2024 ambulatory [facility] Facility:[facility] Start: 02-08-2024 End: 02-08-2024 Patient encounter status Attila Bundy MD Work Phone: [facility] Start: 02-08-2024 End: 02-08-2024 Periodic preventive med est patient 18-39 yrs Attila Bundy MD Work Phone: [facility] Comment on above: Amenorrhea (Primary Dx); Screening for malignant neoplasm of cervix; Encounter for gynecological examination without abnormal finding; Encounter for surveillance of vaginal ring hormonal contraceptive device; Missed menses Start: 02-08-2024 End: 02-08-2024 ambulatory ATTILA BUNDY Not Available Start: 01-24-2024 End: 01-24-2024 ambulatory Facility:[facility] Start: 05-12-2023 End: 05-12-2023 ambulatory Tyrell Stiles Other [facility] [employer] Other Start: 05-12-2023 Office outpatient vi sit 15 minutes Tyrell Stiles [facility] [place] Start: 03-02-2023 End: 03-02-2023 ambulatory Lisandro Buitrago Facility:[facility] Start: 03-02-2023 End: 03-02-2023 ambulatory DO Lisandroteri Buitrago Work Phone: [facility] Work Phone: Start: 03-02-2023 End: 03-02-2023 Patient encounter procedure DO Lisandroteri Buitrago Work Phone: [facility] Start: 02-24-2023 End: 02-24-2023 ambulatory Lisandro Minna Other [facility] [employer] Other Start: 02-24-2023 Encounter for genera l adult medical examination without abnormal findings Lisandro Kuns [facility] [place] Start: 02-24-2023 Office outpatient ne w 30 minutes Lisandroteri Buitrago [facility] [place] Start: 07-28-2021 End: 07-28-[address] JANES GARCIA Facility: Procedures Date Procedure Procedure Detail Performing Clinician Start: 01-08-2025 US OB BPP W NON-STRESS Rocio Blake DO Work Phone: Start: 01-04-2025 US OB BPP W NON-STRESS Rocio Blake DO [...] Start: 02-08-2024 Urine test visual color cmprsn jovanis Attila Bundy MD Work Phone: Start: 02-08-2024 Cytp cerv/vag auto t hin layer prep mnl screen Rocio Blake DO Work Phone: Start: 03-02-2023 Plain chest X-ray DO Br ett Minna Work Phone: Start: 03-02-2023 Plain X-ray of left shoulder DO Lisandro Minna Work Phone: Plan of Treatment Date Care Activity Detail Author Start: 01-16-2025 End: 01-16-2025 Patient encounter procedure 01/16/2025 8:50 AM EDT Routine [facility] [address] [place] [address] Nadine Galvan PA [address] [place] [address] [facility] Start: 01-15-2025 End: 01-15-2025 Patient encounter procedure 01/15/2025 8:50 AM EDT Routine [facility] [address] [place] [address] Nadine Galvan, PA [address] [place], [place] [id number] [facility] Start: 01-08-2025 Influenza vaccination [facility] Start: 01-02-2025 End: 07-05-2025 US biophysical [...] 12/19/2024 8:50 AM EDT Routine [facility] [address] [facility] [place] [address] Nadine Galvan PA [address] [place] [address] [facility] Start: 12-19-2024 End: 12-19-2024 Professional / ancillary services management 12/19/2024 8:00 AM EDT Ancillary Procedure [facility] [address] [place] [address] [facility] Start: 12-05-2024 End: 04-07-2025 US for US OB follow up transabdominal approach Imaging Routine size inconsistent with dates ([facility]) Expected: 12/05/2024, Expires: 04/07/2025 [facility] Work Phone: Comment on above: Expected: 12/05/2024 , Expires: 04/07/2025 Start: 12-05-2024 End: 12-05-2024 Patient encounter procedure [facility] Comment on above: Arrived Start: 11-22-2024 End: 11-22-2025 Measurement of glucose 3 hours after glucose challenge for glucose tolerance test Glucose tolerance, 3 hours Lab Routine Elevated glucose tolerance test Expected: 11/22/2024 (Approximate), Expires: 11/22/2025 [facility] Work Phone: Comment on above: Expected: 11/22/2024 (Approximate), Expires: 11/22/2025 Start: 11-22-2024 End: 11-22-2024 Patient encounter procedure 11/22/2024 8:50 AM EDT Routine [facility] [address] [place] [id number] Nadine Galvan PA [facility] [address] [place], [place] [id number] [facility] Start: 10-26-2024 End: 10-26-2025 CBC panel - Blood by Automated count CBC Lab Routine Diabetes mellitus screening Expected: 10/26/2024 (Approximate), Expires: 10/26/2025 [facility] Work Phone: Comment on above: Expected: 10/26/2024 (Approximate), Expires: 10/26/2025 Start: 10-26-2024 End: 10-26-2025 Measurement of glucose 1 hour after glucose challenge for glucose tolerance test Glucose tolerance, 1 hour Lab Routine Diabetes mellitus screening Expected: 10/26/2024 (Approximate), Expires: 10/26/2025 [facility] Comment on above: Expected: 10/26/2024 (Approximate), Expires: 10/26/2025 Start: 09-27-2024 End: 09-27-2024 Patient encounter procedure 09/27/2024 3:30 PM EDT Routine [facility] [address] [place] [id number] Nadine Galvan, PA [address] [place], [place] [id number] [facility] Start: 08-29-2024 End: 08-29-2024 Patient encounter procedure [facility] Comment on above: Arrived Start: 07-27-2024 End: 07-27-2024 ambulatory 07/27/2024 10:30 AM EDT Initial [facility] [address] [place] [address] Attila Bundy MD [address] [place] [address] [facility] Start: 07-17-2024 End: 07-17-2024 Patient encounter procedure 07/17/2024 12:30 PM EDT Office Visit [facility] [address] [place] [address] Attila Bundy MD [address] [place] [address] [facility] Start: 07-17-2024 End: 07-17-2024 Professional / ancillary services management 07/17/2024 8:30 AM EDT Ancillary Procedure [facility] [address] [place] [phone] [facility] Start: 07-11-2024 End: 07-11-2025 Bacteria identified in Urine by Culture Urine culture Microbiology Routine Encounter for supervision of normal first in first trimester Expected: 07/11/2024, Expires: 07/11/2025 [facility] Comment on above: Expected: 07/11/2024 , Expires: 07/11/2025 Start: 07-11-2024 End: 07-11-2025 BEACON CARRIER SCREEN;14 GENES BEACON CARRIER SCREEN;14 GENES Lab Routine Screening for genetic disease carrier status Expected: 07/11/2024 (Approximate), Expires: 07/11/2025 [facility] Healthcare Comment on above: Expected: 07/11/2024 (Approximate), Expires: 07/11/2025 Start: 07-11-2024 End: 07-11-2025 Blood type and Indirect antibody screen panel - Blood Type and screen Lab Routine Encounter for supervision of normal first in first trimester Expected: 07/11/2024, Expires: 07/11/2025 [facility] Comment on above: Expected: 07/11/2024 , Expires: 07/11/2025 Start: 07-11-2024 End: 07-11-2025 CBC W Auto Differential panel - Blood CBC and differential Lab Routine Encounter for supervision of normal first in first trimester Expected: 07/11/2024, Expires: 07/11/2025 [facility] Comment on above: Expected: 07/11/2024 , Expires: 07/11/2025 Start: 07-11-2024 End: 07-11-2025 DRUG SCREEN 17 W/CONF, UR DRUG SCREEN 17 W/CONF, UR Lab Routine Encounter for drug screening Expected: 07/11/2024, Expires: 07/11/2025 [facility] Comment on above: Expected: 07/11/2024 , Expires: 07/11/2025 Start: 07-11-2024 End: 07-11-2025 Hepatitis B virus surface Ag [Presence] in Serum or Plasma by Immunoassay Hepatitis B surface antigen Lab Routine Encounter for supervision of normal first in first trimester Expected: 07/11/2024, Expires: 07/11/2025 [facility] Comment on above: Expected: 07/11/2024 , Expires: 07/11/2025 Start: 07-11-2024 End: 07-11-2025 Hepatitis C virus Ab [Presence] in Serum or Plasma by Immunoassay Hepatitis C antibody Lab Routine Encounter for supervision of normal first in first trimester Expected: 07/11/2024, Expires: 07/11/2025 [facility] Comment on above: Expected: 07/11/2024 , Expires: 07/11/2025 Start: 07-11-2024 End: 07-11-2025 HIV-1/HIV-2 antigen/antibody combination immunoassay HIV-1 and HIV-2 antibodies Lab Routine Encounter for supervision of normal first in first trimester Expected: 07/11/2024, Expires: 07/11/2025 [facility] Comment on above: Expected: 07/11/2024 , Expires: 07/11/2025 Start: 07-11-2024 End: 07-11-2025 [id number] PLUS Core+SCA [id number] PLUS Core+SCA Lab Routine Encounter for screening for chromosomal anomalies Expected: 07/11/2024 (Approximate), Expires: 07/11/2025 [facility] Comment on above: Expected: 07/11/2024 (Approximate), Expires: 07/11/2025 Start: 07-11-2024 End: 07-11-2025 Reagin Ab [Presence] in Serum by RPR RPR Lab Routine Encounter for supervision of normal first in first trimester Expected: 07/11/2024, Expires: 07/11/2025 [facility] Comment on above: Expected: 07/11/2024 , Expires: 07/11/2025 Start: 07-11-2024 End: 07-11-2025 Rubella antibody, IgG Rubella antibody, IgG Lab Routine Encounter for supervision of normal first in first trimester Expected: 07/11/2024, Expires: 07/11/2025 [facility] Comment on above: Expected: 07/11/2024 , Expires: 07/11/2025 Start: 07-11-2024 End: 07-11-2025 Urinalysis complete panel - Urine Urinalysis with microscopic Lab Routine Encounter for supervision of normal first in first trimester Expected: 07/11/2024, Expires: 07/11/2025 [facility] Work Phone: Comment on above: Expected: 07/11/2024 , Expires: 07/11/2025 Start: 05-16-2024 End: 05-16-2025 Cortisol Cortisol Lab Routine Hormone imbalance Expected: 05/16/2024, Expires: 05/16/2025 [facility] Comment on above: Expected: 05/16/2024 , Expires: 05/16/2025 Start: 05-16-2024 End: 05-16-2025 DHEA-sulfate DHEA-sulfate Lab Routine Hormone imbalance Expected: 05/16/2024, Expires: 05/16/2025 [facility] Comment on above: Expected: 05/16/2024 , Expires: 05/16/2025 Start: 05-16-2024 End: 05-16-2025 Estradiol Estradiol Lab Routine Hormone imbalance Expected: 05/16/2024, Expires: 05/16/2025 [facility] Comment on above: Expected: 05/16/2024 , Expires: 05/16/2025 Start: 05-16-2024 End: 05-16-2025 Estrone Estrone Lab Routine Hormone imbalance Expected: 05/16/2024, Expires: 05/16/2025 [facility] Comment on above: Expected: 05/16/2024 , Expires: 05/16/2025 Start: 05-16-2024 End: 05-16-2025 Follicle stimulating hormone Follicle stimulating hormone Lab Routine Hormone imbalance Thyroid disorder screen Expected: 05/16/2024, Expires: 05/16/2025 [facility] Comment on above: Expected: 05/16/2024 , Expires: 05/16/2025 Start: 05-16-2024 End: 05-16-2025 Insulin, fasting Insulin, fasting Lab Routine Amenorrhea Missed menses Hormone imbalance Expected: 05/16/2024, Expires: 05/16/2025 [facility] Comment on above: Expected: 05/16/2024 , Expires: 05/16/2025 Start: 05-16-2024 End: 05-16-2025 Luteinizing hormone Luteinizing hormone Lab Routine Hormone imbalance Thyroid disorder screen Expected: 05/16/2024, Expires: 05/16/2025 [facility] Comment on above: Expected: 05/16/2024 , Expires: 05/16/2025 Start: 05-16-2024 End: 05-16-2025 Progesterone Progesterone Lab Routine Hormone imbalance Expected: 05/16/2024, Expires: 05/16/2025 [facility] Comment on above: Expected: 05/16/2024 , Expires: 05/16/2025 Start: 05-16-2024 End: 05-16-2025 Sex hormone binding globulin Sex hormone binding globulin Lab Routine Hormone imbalance Expected: 05/16/2024, Expires: 05/16/2025 [facility] Comment on above: Expected: 05/16/2024 , Expires: 05/16/2025 Start: 05-16-2024 End: 05-16-2025 Testosterone, free, total Testosterone, free, total Lab Routine Hormone imbalance Expected: 05/16/2024, Expires: 05/16/2025 [facility] Comment on above: Expected: 05/16/2024 , Expires: 05/16/2025 Start: 05-16-2024 End: 05-16-2025 Thyrotropin [Units/volume] in Serum or Plasma TSH Lab Routine Hormone imbalance Thyroid disorder screen Expected: 05/16/2024, Expires: 05/16/2025 [facility] Work Phone: Comment on above: Expected: 05/16/2024 , Expires: 05/16/2025 Start: 05-16-2024 End: 05-16-2025 Vitamin D 1,25 dihydroxy Vitamin D 1,25 dihydroxy Lab Routine Hormone imbalance Expected: 05/16/2024, Expires: 05/16/2025 [facility] Comment on above: Expected: 05/16/2024 , Expires: 05/16/2025 Start: 05-16-2024 End: 05-16-2024 Patient encounter procedure 05/16/2024 12:30 PM EST Office Visit [facility] [address] [place] [address] Attila Bundy MD [address] [place] [address] [facility] Start: 02-08-2024 End: 02-07-2025 Follicle stimulating hormone Follicle stimulating hormone Lab Routine Amenorrhea Expected: 02/08/2024 (Approximate), Expires: 02/07/2025 [facility] Comment on above: Expected: 02/08/2024 (Approximate), Expires: 02/07/2025 Start: 01-09-2024 Influenza vaccination Influenza Vacc ine (#1) [facility] hCG, qualitative hCG, qualitativ e Lab Routine Amenorrhea Ordered: 02/08/2024 [facility] Comment on above: Ordered: 02/08/2024 Hemoglobin A1c/Hemoglobin.total in Blood Hemoglobin A1c Lab Routine with uncertain dates, antepartum Ordered: 08/10/2024 [facility] Work Phone: Comment on above: Ordered: 08/10/2024 Luteinizing hormone Luteinizing hormone Lab Routine Amenorrhea Ordered: 02/08/2024 [facility] Comment on above: Ordered: 02/08/2024 Progesterone Progesterone Lab Routine Amenorrhea Ordered: 02/08/2024 [facility] Comment on above: Ordered: 02/08/2024 SENDOUT TEST MISCELLANEOUS [facility] SENDOUT TEST MISCELLANEOUS [facility] Lab Routine Screening for malignant neoplasm of cervix Encounter for gynecological examination without abnormal finding Ordered: 02/08/2024 [facility] Work Phone: Comment on above: Ordered: 02/08/2024 Testosterone, free, total Testosterone, free, total Lab Routine Amenorrhea Ordered: 02/08/2024 [facility] Comment on above: Ordered: 02/08/2024 Immunizations Immunization Date Immunization Notes Care Provider Fa bladimir 09-25-2020 COVID-19 Vaccine Moderna - Documentation Purposes Only Lisandro Buitrago Other [facility] Other 08-21-2020 COVID-19 Vaccine Moderna - Documentation Purposes Only Lisandro Buitrago Other [facility] Other Payers Date Payer Category Payer Unknown [id number] 2023 Private Health Insurance [id number] 2023 Private Health Insurance [id number] 2023 Unknown [id number] 2. [id number] 1995 Unknown [id number] 2.16.84 0.1.280687.3.579.2.593 1995 Unknown [id number] 2.16.8 40.1.380525.3.579.2.1259 1995 Unknown [id number] 2.16.8 40.1.544012.3.579.2.1259 1995 Unknown [id number] 2.16.8 40.1.875727.3.579.2.9 1995 Unknown [id number] 2.16.8 40.1.494110.3.579.2.1259 1995 Unknown [id number] 2.16.8 40.1.158333.3.579.2.1259 1995 Unknown [id number] 2.16.8 40.1.951345.3.579.2.9 1995 Unknown [id number] 2.16.8 40.1.455631.3.579.2.9 1995 Unknown [id number] 2.16.84 0.1.999218.3.579.2.1258 1995 Unknown [id number] 2.16.84 0.1.039530.3.579.2.1258 1995 Unknown [id number] 2.16.84 0.1.512337.3.579.2.1258 1995 Unknown [id number] 2.16.84 0.1.055204.3.579.2.9 1995 Unknown [id number] 2.16.84 0.1.838307.3.579.2.1258 1995 Unknown [id number] 2.16.84 0.1.757050.3.579.2.9 1995 Unknown [id number] 2.16.84 0.1.979362.3.579.2.9 1995 Unknown [id number] 2.16.8 40.1.060851.3.579.2.718 1959 Self-pay Unknown [id number] Unknown [id number] 2.16.8 40.1.055067.3.579.2.531 Social History Date Type Detail Facility Start: 02-08-2024 End: 05-16-2024 Sex Assigned At [facility]OOSE Other Start: 1995 Sex Assigned At Female [facility] Start: 05-15-2023 [facility] Start: 05-15-2023 Tobacco use and exposure Smokeless tobacco non-user [facility] Start: 02-08-2024 Alcoholic beverage intake Current drinker of alcohol (finding) [facility] Start: 02-08-2024 End: 05-16-2024 History of [...] Esmer Walp Polycystic ovary syndrome Mother Esmer Sanches Thyroid [...] nursing note reviewed. Exam conducted with a merchandise handler present. Vitals: Estimated body mass index is 28.96 kg/m as calculated from the following: Height as of 08/10/24: 5' 3 . Weight as of this encounter: 163 lb 8 oz. BP: 120/76 Patient's last menstrual period was 05/09/2024 (exact date). ASSESSMENT & PLAN ICD-10-CM 1. Third trimester ([facility]) Z34.93 POCT urinalysis dipstick manually resulted 2. 32 weeks gestation of ([facility]) Z3A.32 Return OB: Patient presents today [...] Rocio Lozano DO documented in this encounter [facility] 12-19-2024 History of Presen t illness [...] PLAN ICD-10-CM 1. 30 weeks gestation of ([facility]) Z3A.30 POCT urinalysis dipstick manually resulted 2. Third trimester ([facility]) Z34.93 POCT urinalysis dipstick manually resulted [...] of: LIZA Zaldivar documented in this encounter [facility] 12-05-2024 History of Presen t illness [...] Mother Esmer Walshane Thyroid disease Mother Esmer Walshane Polycystic ovary syndrome Sister Breast cancer Maternal Grandmother Maricarmen Potts Hypothyroidism Maternal Grandfather Kwan Potts Thyroid disease Maternal Grandfather Kwan Swiney Breast cancer Paternal Grandmother Gilda Sanches Lung [...] nursing note reviewed. Exam conducted with a merchandise handler present. Vitals: Estimated body mass index is 28.52 kg/m as calculated from the following: Height as of 08/10/24: 5' 3 . Weight as of this encounter: 161 lb. BP: 120/76 Patient's last menstrual period was 05/09/2024 (exact date). ASSESSMENT & PLAN ICD-10-CM 1. Third trimester ([facility]) Z34.93 CANCELED: POCT urinalysis dipstick manually resulted 2. 28 weeks gestation of ([facility]) Z3A.28 3. 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 size inconsistent with dates ([facility]) O26.849 US OB follow up transabdominal [...] Rocio Lozano DO documented in this encounter [facility] 11-22-2024 History of Presen t illness [...] PLAN ICD-10-CM 1. 26 weeks gestation of ([facility]) Z3A.26 POCT urinalysis dipstick manually resulted 2. Second trimester ([facility]) Z34.92 POCT urinalysis dipstick manually resulted [...] of: LIZA Zaldivar documented in this encounter [facility] 10-26-2024 History of Presen t illness [...] Kwan Swiney Breast cancer Paternal Grandmother Gilda Sanches Lung [...] ASSESSMENT & PLAN ICD-10-CM 1. Second trimester ([facility]) Z34.92 POCT urinalysis dipstick manually resulted 2. 22 weeks gestation of ([facility]) Z3A.22 3. Diabetes mellitus screening Z13.1 [...] Rocio Lozano DO documented in this encounter [facility] 08-29-2024 History of Presen t illness [...] nursing note reviewed. Exam conducted with a merchandise handler present. Vitals: Estimated body mass index is [...] or undercooked meat, and stay away from [facility]. Patient has been consulted regarding any further do's and don'ts of . Patient voiced understanding and all questions and concerns were answered. Orders Placed This Encounter Procedures POCT urinalysis dipstick manually resulted Follow Up: Patient is to return in 4 weeks for routine OB appointment. Documented by Zita Borrego LPN on behalf of: Rocio Lozano DO documented in this encounter [facility] 08-10-2024 History of Presen t illness [...] or undercooked meat, and stay away from [facility]. Patient has also been advised to not change litter boxes and eat 6 small meals a day. Patient has been consulted regarding the do's and don'ts of . Patient was given labs and all questions and concerns were answered. Patient was given Tofte labs to be completed with Hgb A1C. Follow Up: Patient is to return in 4 weeks for routine OB appointment. Follow Up: Patient is to have labs drawn at directed and return to office for initial OB appointment with provider. Patient may call office as needed with any concerns or questions. Nurse Visit Completed by: Domenica Jacinto LPN documented in this encounter [facility] 07-11-2024 History of Presen t illness [...] 07/11/2024 10:03 AM documented in this encounter [facility] 05-16-2024 History of Presen t illness Narrative Images from the original note were not included. Attila Bundy MD Obstetrics and Gynecology Patient: Alondra Beaver : 1995 (28 y.o.) Exam Date: 05/16/2024 Reason for Visit - Chief Complaint Patient presents with Follow-up Follow up for Amenorrhea, missed menses, and family planning. Stopped Elu[employer]yng in 10/2023. [employer] 04/03 LMP 05/09 Ovulatory 04/30 Patient did [...] Behavior: Behavior normal. Exam conducted with a merchandise handler present. Assessment/Plan ICD-10-CM 1. Amenorrhea N91.2 2. [...] in the process. documented in this encounter [facility] 05-16-2024 Instructions Attila Bundy MD - [...] routine infertility test. documented in this encounter [facility] 02-08-2024 History of Presen t illness [...] Return 1 year documented in this encounter [facility] 05-12-2023 Evaluation note Encounter Date Diagnosis [...] and trigger point injections can be done. [facility] Other 10-18-2023 Evaluation note* Encounter Date Diagnosis Assessment Notes Treatment Notes Treatment Clinical Notes Feb, Encounter to establish care (ICD-10 - Z76.89) Patient appears to be in good health upon examination. She is here to establish care for annual physcial for her employment. 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 Feb, Wellness examination (ICD-10 - Z00.00) [...] Stress test ordered to rule out abnormalities. [facility] Other Evaluation noteNo assessment information available [facility] Work Phone: Evaluation note* Diagnosis Amenorrhea- Primary Absence of menstruation Screening for malignant neoplasm of cervix Screening for malignant neoplasm of the cervix Encounter for gynecological examination without abnormal finding Encounter for surveillance of vaginal ring hormonal contraceptive device Missed menses documented in this encounter [facility]* Diagnosis Hormone imbalance- Primary Amenorrhea Absence of menstruation Missed menses Family planning Other general counseling and advice for contraceptive management Thyroid disorder screen Screening for thyroid disorder documented in this encounter [facility]* Diagnosis Encounter for supervision of normal first in first trimester Encounter for drug screening care, antepartum Encounter for screening for chromosomal anomalies care in first trimester Screening for genetic disease carrier status documented in this encounter [facility]* Diagnosis with uncertain dates, antepartum documented in this encounter [facility]* Diagnosis Second trimester state, incidental 14 weeks gestation of documented in this encounter [facility]* Diagnosis Second trimester ([facility]) state, incidental 22 weeks gestation of ([facility]) Diabetes mellitus screening Screening for diabetes mellitus documented in this encounter [facility]* Diagnosis 26 weeks gestation of ([facility]) Second trimester ([facility]) state, incidental Elevated glucose tolerance test Impaired glucose tolerance test documented in this encounter [facility]* Diagnosis Third trimester ([facility]) state, incidental 28 weeks gestation of ([facility]) HSV infection Herpes simplex without mention of complication size inconsistent with dates ([facility]) documented in this encounter [facility]* Diagnosis 30 weeks gestation of [...] Date Medical History Left elbow dislocation 2011 [facility] Other Summary Purpose Family History No Family [...] DATE CREATED AUTHOR AUTHOR'S ORGANIZ ATION 05/24/2023 [facility] DATE CREATED AUTHOR AUTHOR'S ORGANIZ ATION 02/20/2024 [facility] DATE CREATED AUTHOR AUTHOR'S ORGANIZ ATION 01/03/[address] [facility] EPIC DATE CREATED AUTHOR AUTHOR'S ORGANIZ ATION 01/10/2025 [facility] REASON FOR VISIT (unrecogniz ed section and content) Reason Comments Gynecologic Exam Reason Comments Follow-up Reason Comments Initial Visit Nurse Visit Reason Comments Amenorrhea Reason Comments Routine Visit Care Teams (unrecognized sec tion and content) Team Status: Inactive Member Role Status Dates Lisandro Buitrago DO Attending Provider Active Skin Care Consultant Relationship Specialty Start Date End Date Unallocated, Jordy Horn MD [address] [place] [address] [place] [address] PCP - General Family Medicine 06/23/23 Skin Care Consultant Relationship Specialty Start Date End Date Unallocated, Jordy Horn MD [address] [place], [place] [address] [address] PCP - General Family Medicine 06/23/23 Skin Care Consultant Relationship Specialty Start Date End Date Unallocated, Jordy Horn MD [address] [place] [address] PCP - General Family Medicine 06/23/23 Skin Care Consultant Relationship Specialty Start Date End Date Unallocated, Jordy Horn MD [facility] [address] [facility] [place] [address] PCP - General Family Medicine 06/23/23 Skin Care Consultant Relationship Specialty Start Date End Date Unallocated, Jordy Horn MD [facility] [place] [address] PCP - General Family Medicine 06/23/23 Skin Care Consultant Relationship Specialty Start Date End Date Unallocated, Jordy Horn MD [address] [place] [address] PCP - General Family Medicine 06/23/23 Skin Care Consultant Relationship Specialty Start Date End Date Unallocated, Jordy Horn MD [address] [place] [address] PCP - General Family Medicine 06/23/23 Skin Care Consultant Relationship Specialty Start Date End Date Unallocated, Jordy Horn MD [address] [place] [address] PCP - General Family Medicine 06/23/23 Skin Care Consultant Relationship Specialty Start Date End Date Unallocated, Jordy Horn MD [address] [place] [address] PCP - General Family Medicine 06/23/23 Skin Care Consultant Relationship Specialty Start Date End Date Unallocated, Jordy Horn MD [address] [facility] [place] [address] PCP - General Family Medicine 06/23/23 Skin Care Consultant Relationship Specialty Start Date End Date Unallocated, Jordy Horn MD [address] [place] [address] PCP - General Family Medicine 06/23/23 Goals [...] BE BASED ON THE PRIMARY CLINICAL RECORDS. [facility]. provides no warranty or guarantee of the accuracy or completeness of information in this document.
[2025-01-11 07:01] VITALS: BP 131/81; PULSE 88
== END 2025-01-11 07:25 | disposition home or self-care (01) ==
LOC: US 06:56 → FBC 06:58
PROVIDERS: PCP Family Medicine; Visit Provider Obstetrics & Gynecology
DX: O41.03X0 Oligohydramnios, third trimester, not applicable or unspecified (principal); Z3A.33 33 weeks gestation of pregnancy
CPT/HCPCS: 59025

== ENCOUNTER 2025-01-15 06:57 | Outpatient (OUT) | payer OTHER, SELFPAY ==
--- OUTSIDE RECORDS SUMMARY | 2025-01-15 07:00 | XMS_ITS | CCD ---
Author Organization [facility] Care Team Providers Care Edge Plugger Name Role Phone DR JANES GARCIA Admitting Unavailable JOSE, DR JANES Escobar Attending Unavailable REQUEST, NONE LISTED Primary Care Unavaila verna GARCIA, DR JANES Escobar Consulting Unavailable Lisandro Buitrago Unavailable DO Lisandro Buitrago Attending Provider Tryell Stiles Unavailable Lisandro Buitrago Attending Unavailable Lisandro [...] 08/21/2024 08/29/2024 Discontinued 21 day ethinyl estradiol 0.097230 mg/hr / etonogestrel 0.005 mg/hr vaginal system [...] [facility] Facility Outside Recordson 01-09-2025 Outside Records [id number] [facility] [id number] 16#1.00OTGTIFF [facility] US OB BPP W NON-STRESS on 01-08-2025 [place] [address] Ultrasound Report Signed Patient: ALONDRA BEAVER MR#: [id number] : 1995 Acct:[id number] Age/Sex: 29 / F ADM Date: 01/08/25 Loc: US Attending Dr: Rocio Lozano D.O. Ordering Physician: Rocio Lozano D.O. Date of Service: 01/08/25 Procedure(s): US OB BPP w non-stress Accession Number(s): [id number] cc: Rocio Lozano D.O.; Zita Alanis M.D. [place] [address] Patient Name: ALONDRA BEAVER MRN: [id number] date: 1995 Sex: F Assigned Patient Location: Current Patient Location: [facility] Accession/Order Number: [id number] Exam Date: 01/08/2025 12:03 Report Date: 01/08/2025 12:44 At the request of: ROCIO LOZANO DO Procedure: US OB BPP w non-stress Biophysical profile. Reason for exam: Abnormal BPP. COMPARISON: 01/04/2025 TECHNIQUE: Transabdominal imaging of the gravid uterus was obtained. FINDINGS: The software sales consultant reports a BPP of 8 out of 8. ZULMA is normal at 14.8 cm. heart rate 135 bpm. US/US OB BPP w non-stress IMPRESSION: BPP 8 out of 8. Impression dictated by: Terry Puentes Jr., D.O. 01/08/2025 12:44 PM Dictation Location: [place] [address] Electronically authenticated by: [id number] Y Date: 01/08/2025 12:44 Dictated By: Terry Puentes M.D. Signed By: 01/08/25 1246 DD/ 1244 TD/TT: Oracle Consultant: [facility] Radiology, Radiologist, - 01/08/2025 [place] [address] Ultrasound Report Signed Patient: ALONDRA BEAVER MR#: [id number] : 1995 Acct:[id number] Age/Sex: 29 / F ADM Date: 01/08/25 Loc: US Attending Dr: Rocio Lozano D.O. Ordering Physician: Rocio Lzoano D.O. Date of Service: 01/08/25 Procedure(s): US OB BPP w non-stress Accession Number(s): [id number] cc: Rocio Lozano D.O.; Zita Alanis M.D. The [place] [address] Patient Name: ALONDRA BEAVER MRN: [facility]:[id number] date: 1995 Sex: F Assigned Patient Location: Current Patient Location: [facility] [place] Accession/Order Number: [id number] Exam Date: 01/08/2025 12:03 Report Date: 01/08/2025 12:44 At the request of: ROCIO LOZANO DO Procedure: US OB BPP w non-stress Biophysical profile. Reason for exam: Abnormal BPP. COMPARISON: 01/04/2025 TECHNIQUE: Transabdominal imaging of the gravid uterus was obtained. FINDINGS: The software sales consultant reports a BPP of 8 out of 8. ZULMA is normal at 14.8 cm. heart rate 135 bpm. US/US OB BPP w non-stress IMPRESSION: BPP 8 out of 8. Impression dictated by: Terry Puentes Jr., D.O. 01/08/2025 12:44 PM Dictation Location: [place] [address] Electronically authenticated by: [id number] Y Date: 01/08/2025 12:44 Dictated By: Terry Puentes M.D. Signed By: 01/08/25 1246 DD/ 43 TD/TT: Oracle Consultant: [facility] Radiology Study observation (narrative) [facility] US OB BPP W NON-STRESS Ordered By: Radiologist Radiology on 01-08-2025 [facility] Work Phone: US OB BPP W NON-STRESS on 01-04-2025 [place] [address] Ultrasound Report Signed Patient: ALONDRA BEAVER MR#: [id number] : 1995 Acct:[id number] Age/Sex: 29 / F ADM Date: 01/04/25 Loc: US Attending Dr: Rocio Lozano D.O. Ordering Physician: Rocio Lozano D.O. Date of Service: 01/04/25 Procedure(s): US OB BPP w non-stress Accession Number(s): [id number] cc: Rocio Lozano D.O.; Zita Alanis M.D. [place] [address] Patient Name: ALONDRA BEAVER MRN: [id number] date: 1995 Sex: F Assigned Patient Location: [facility] Current Patient Location: Accession/Order Number: [id number] Exam Date: 01/04/2025 07:10 Report Date: 01/04/2025 10:27 At the request of: ROCIO LOZANO DO Procedure: US OB BPP w non-stress BIOPHYSICAL PROFILE: CLINICAL INFORMATION: ZULMA BORDERLINE LOW O28.8 COMPARISON: None There is a single live intrauterine gestation in cephalic presentation. The reported gestational age is 32 weeks 3 days. The heart rate [id number] beats per minute. FINDINGS: TONE: 1 or [...] Lu M.D. 01/04/2025 10:27 AM Dictation Location: [place] [address] Electronically authenticated by: [id number] Y Date: 01/04/2025 10:27 Dictated By: Zita Lu M.D. Signed By: 01/04/25 1030 DD/ 1027 TD/TT: Oracle Consultant: [facility] Radiology, Radiologist, MD - 01/04/2025 [place] [address] Ultrasound Report Signed Patient: ALONDRA BEAVER MR#: [id number] : 1995 Acct:[id number] Age/Sex: 29 / F ADM Date: 01/04/25 Loc: US Attending Dr: Rocio Lozano D.O. Ordering Physician: Rocio Lozano D.O. Date of Service: 01/04/25 Procedure(s): US OB BPP w non-stress Accession Number(s): [id number] cc: Rocio Lozano D.O.; Zita Alanis M.D. The [place] [id number] Patient Name: AOLNDRA BEAVER MRN: [facility]:[id number] date: 1995 Sex: F Assigned Patient Location: [facility] Current Patient Location: Accession/Order Number: [id number] Exam Date: 01/04/2025 07:10 Report Date: 01/04/2025 10:27 At the request of: ROCIO LOZANO DO Procedure: US OB BPP w non-stress BIOPHYSICAL PROFILE: CLINICAL INFORMATION: ZULMA BORDERLINE LOW O28.8 COMPARISON: None There is a single live intrauterine gestation in cephalic presentation. The reported gestational age is 32 weeks 3 days. The heart rate [id number] beats per minute. FINDINGS: TONE: 1 or [...] Lu M.D. 01/04/2025 10:27 AM Dictation Location: [facility] Electronically authenticated by: [id number] Y Date: 01/04/2025 10:27 Dictated By: Zita Lu M.D. Signed By: 01/04/25 1030 DD/ 1027 TD/TT: Oracle Consultant: [facility] Radiology Study observation (narrative) [facility] US OB BPP W NON-STRESS Ordered By: Radiologist Radiology on 01-04-2025 [facility] Work Phone: Urinalysis macro (dipstick) panel (U)on 01-02-2025 Bilirubin, UA Negative Negative - 4(70) +++ mg/dL [facility] Blood, UA Negative Negative - 50 Mark/mcL [facility] Clarity, UA Clear [facility] Color, UA Yellow [facility] Glucose, UA Negative Negative - 2000(110) ++++ mg/dL [facility] Interpretation and review of laboratory results Abnormal [facility] Ketones, UA Negative Negative - 160(16) ++++ mg/dL [facility] Leukocytes, UA Positive Negative - 500+++ Mahsa/mcL [facility] Comment on above: Trace Nitrite, UA Negative Negative - Positive [facility] pH, UA 6.5 5 - 9 [facility] Protein, UA Negative Negative - 2000(20) ++++ mg/dL [facility] Spec Grav, UA 1.015 1 - 1.03 [facility] Urobilinogen, UA 0.2 0.2 - 12 mg/dL [facility] US OB FOLLOW UP TRANSABDOMIN AL APPROACHon [...] Negative Negative - 4(70) +++ mg/dL [facility] Blood, UA Negative Negative - 50 Mark/mcL [facility] Clarity, UA Clear [facility] Color, UA Yellow [facility] Glucose, UA Negative Negative - 1999(110) ++++ mg/dL [facility] Interpretation and review of laboratory results Abnormal [facility] Ketones, UA Negative Negative - 160(16) ++++ mg/dL [facility] Leukocytes, UA 3+ Negative - 500+++ Mahsa/mcL [facility] pH, UA 6 5 - 9 [facility] Protein, UA Negative Negative - 1999(20) ++++ mg/dL [facility] Spec Grav, UA 1.015 1 - 1.03 [facility] Urobilinogen, UA 0.2 0.2 - 12 mg/dL [facility] GLUCOSE TOLERANCE 3 HOURon 0 11-28-2024 GLUCOSE TOLERANCE 3 HOUR mg/dL [facility] Comment on above: GLU FAST 93 (<95) C ol: 11/28/24 0641 GLU 1HR 149 (<180) Col: 11/28/24 0743 GLU 2HR 118 (<155) Col: 11/28/24 0843 GLU 3HR 81 (<140) Col: 11/28/24 0942 [facility] ALL CBC WITH AUTO DIFFon BASOPHILS ABSOLUTE AUTO 0 [facility] Basophils/100 WBC (Bld) 0.4 % 0.2 - 2.0 % [facility] Eosinophils/100 WBC (Bld) 1.2 % 0.9 - 7.0 % [facility] Erythrocyte distribution width (RBC) [Ratio] 13 % 11.0 - 15.0 % [facility] Hematocrit (Bld) [Volume fraction] 35.6 % Low 36.0 - 48.0 % [facility] Hemoglobin (Bld) [Mass/Vol] 11.9 g/dL Low 12.0 - 16.0 g/dL [facility] IMMATURE GRANULOCYTES ABS AUTO 0.13 High [facility] Immature granulocytes/100 WBC (Bld) 1.2 % High 0.0 - 0.5 % [facility] Interpretation and review of laboratory results Abnormal [facility] LYMPHOCYTES ABSOLUTE AUTO 1.3 [facility] Lymphocytes/100 WBC (Bld) 11.6 % Low 20.5 - 60.0 % [facility] MCH (RBC) [Entitic mass] 30.9 pg 26.7 - 34.0 pg [facility] MCHC (RBC) [Mass/Vol] 33.4 g/dL 29.9 - 35.2 g/dL [facility] MCV (RBC) [Entitic vol] 92.5 fL 81.0 - 99.0 fL [facility] MONOCYTES ABSOLUTE AUTO 0.5 [facility] Monocytes/100 WBC (Bld) 4.9 % 1.7 - 12.0 % [facility] NEUTROPHILS ABSOLUTE AUTO 8.8 High [facility] Neutrophils/100 WBC (Bld) 80.7 % High 43.0 - 75.0 % [facility] Platelet mean volume (Bld) [Entitic vol] 10.5 fL 9.5 - 13.5 fL [facility] EO # 0.1 [facility] PLT [address] [facility] RBC 3.85 Low [facility] WBC 10.9 [facility] Urinalysis macro (dipstick) panel (U)on 11-22-2024 Bilirubin, UA Negative Negative - 4(70) +++ mg/dL [facility] Blood, UA Negative Negative - 50 Mark/mcL [facility] Clarity, UA Clear [facility] Color, UA Yellow [facility] Glucose, UA Negative Negative - 1999(110) ++++ mg/dL [facility] Interpretation and review of laboratory results Abnormal [facility] Ketones, UA Negative Negative - 160(16) ++++ mg/dL [facility] Leukocytes, UA Moderate Negative - 500+++ Mahsa/mcL [facility] Nitrite, UA Negative Negative - Positive [facility] pH, UA 6 5 - 9 [facility] Protein, UA Negative Negative - 1999(20) ++++ mg/dL [facility] Spec Grav, UA 1.01 1 - 1.03 [facility] Urobilinogen, UA 0.2 0.2 - 12 mg/dL [facility] Urinalysis macro (dipstick) panel (U)on 10-26-2024 Bilirubin, UA Negative Negative - 4(70) +++ mg/dL [facility] Blood, UA Negative Negative - 50 Mark/mcL [facility] Clarity, UA Clear [facility] Color, UA Yellow [facility] Glucose, UA Negative Negative - 1999(110) ++++ mg/dL [facility] Interpretation and review of laboratory results Normal [facility] Ketones, UA Negative Negative - 160(16) ++++ mg/dL [facility] Leukocytes, UA Negative Negative - 500+++ Mahsa/mcL [facility] Nitrite, UA Negative Negative - Positive [facility] pH, UA 6.5 5 - 9 [facility] Protein, UA Negative Negative - 1999(20) ++++ mg/dL [facility] Spec Grav, UA 1.02 1 - 1.03 [facility] Urobilinogen, UA 0.2 0.2 - 12 mg/dL [facility] US OB 14+ WEEKS ANATOMY SCAN on [...] II, MD, PHD at 27-Oct-2024 06:14:52 AM [facility] Normal Not Available Comment on above: Order Comment: US OB ANATOMY SINGLE W US OB CERVICAL LENGTH Estimated Date of Delivery: 02/26/25 Gestational Age as of 09/28/2024: 18w3d BOX TESTon 08-29-2024 BOX TEST SENT OUT [facility] BOX1 [facility] BOX2 08-29-24 [facility] Urinalysis macro (dipstick) panel (U)on 08-29-2024 Bilirubin, UA Negative Negative - 4(70) +++ mg/dL [facility] Blood, UA Negative Negative - 50 Mark/mcL [facility] Clarity, UA Clear [facility] Color, UA Yellow [facility] Glucose, UA Negative Negative - 1999(110) ++++ mg/dL [facility] Interpretation and review of laboratory results Normal [facility] Ketones, UA Negative Negative - 160(16) ++++ mg/dL [facility] Leukocytes, UA Negative Negative - 500+++ Mahsa/mcL [facility] Nitrite, UA Negative Negative - Positive [facility] pH, UA 6 5 - 9 [facility] Protein, UA Negative Negative - 1999(20) ++++ mg/dL [facility] Spec Grav, UA 1.02 1 - 1.03 [facility] Urobilinogen, UA 0.2 0.2 - 12 mg/dL [facility] HCG ( test) Ql (U)o n 08-10-2024 Interpretation and review of laboratory results Abnormal [facility] Preg Test, Ur Positive Negative [facility] US OB < 14 WEEKS EARLYon US [...] ovaries. Electronically Signed:Electronical ly signed by LEONIDAS NCIOLE II, MD, PHD at 11-Aug-2024 08:40:37 AM [facility] Normal Not Available Comment on above: Order Comment: US OB Patient's last menstrual period was 05/09/2024 (exact date). Urinalysis macro (dipstick) panel (U)on 08-10-2024 Bilirubin, UA Negative Negative - 4(70) +++ mg/dL [facility] Blood, UA Negative Negative - 50 Mark/mcL [facility] Clarity, UA Clear [facility] Color, UA Yellow [facility] Glucose, UA Negative Negative - 2000(110) ++++ mg/dL [facility] Interpretation and review of laboratory results Abnormal [facility] Ketones, UA Positive Negative - 160(16) ++++ mg/dL [facility] Comment on above: 40 Leukocytes, UA Negative Negative - 500+++ Mahsa/mcL [facility] Nitrite, UA Negative Negative - Positive [facility] pH, UA 5.5 5 - 9 [facility] Protein, UA Negative Negative - 2000(20) ++++ mg/dL [facility] Spec Grav, UA 1.02 1 - 1.03 [facility] Urobilinogen, UA 0.2 0.2 - 12 mg/dL [facility] Outside Recordson 04-20-2024 Outside Records [id number] [facility] 03-31-2024 Outside Records [id number] 6[facility] Consent Formson 02-18-2024 Consent Forms [id number] 3D#1.00[facility] Cytology Cervical or vaginal smear or scraping studyon 02-08-2024 [facility] HCG ( test) Ql (U)o n 02-08-2024 Interpretation and review of laboratory results Normal [facility] Preg Test, Ur Negative [facility] CMP Standardon 02-03-2024 eGFR Non AA >60 Invalid Interpretation Code [facility] Comment on above: Performed By: #### 1 [id number], [id number], 8037179, 2772013, 8802904, 9801106, 7924465 #### [facility] (DEFAULT) [address] [place] [address] 53754 eGFR AA >60 Invalid Interpretation Code [facility] Comment on above: Performed By: #### 1 [id number], [id number], 3348627, 0415641, 4809860, 9615375, 8051117 #### [facility] (DEFAULT) [address] [place] [address] 34562 Albumin [Mass/Vol] 4.4 g/dL Normal 3.5-5.0 [facility] Comment on above: Performed By: #### 1 [id number], 8566069745, 5423486, 6138056, 0399600, 2637237, 5663305 #### [facility] (DEFAULT) [address] [place] [address] 60402 Albumin/Globulin [Mass ratio] 1.4 {ratio} Normal 1.4-2.6 [facility] Comment on above: Performed By: #### 1 [id number], 0605395003, 4666436, 8166528, 6238993, 5904845, 5135936 #### [facility] (DEFAULT) [address] [place] [address] 61776 Alk Phos 67 IU/L Normal 32-91 [facility] Comment on above: Performed By: #### 1 [id number], 3018960010, 2653726, 0978928, 9810109, 4203822, 9497240 #### [facility] (DEFAULT) [address] [place] [address] 91619 ALT [Catalytic activity/Vol] 19.0 U/L Normal 14.0-54.0 [facility] Comment on above: Performed By: #### 1 [id number], 9065217239, 9458648, 5996653, 2722117, 5446377, 1383645 #### [facility] (DEFAULT) [address] [place] [address] 48354 Anion gap [Moles/Vol] 10.8 mmol/L Normal 5.0-19.0 [facility] Comment on above: Performed By: #### 1 [id number], 8918414894, 5213398, 2017208, 2719123, 2568140, 7084601 #### [facility] (DEFAULT) [address] [place] [address] 36836 AST [Catalytic activity/Vol] 21 U/L Normal 15-41 [facility] Comment on above: Performed By: #### 1 [id number], 7484752867, 9681661, 9153680, 6032832, 1662802, 9500768 #### [facility] (DEFAULT) [address] [place] [address] 83894 Bili Total 0.7 mg/dL Normal 0.3-1.2 [facility] Comment on above: Performed By: #### 1 [id number], 1744570979, 1423689, 3861973, 5137169, 4893431, 1174115 #### [facility] (DEFAULT) [address] [place] [address] 58561 Calcium [Mass/Vol] 8.9 mg/dL Normal 8.9-10.3 [facility] Comment on above: Performed By: #### 1 [id number], 3082586890, 6024697, 5129613, 6514143, 2354002, 2870095 #### [facility] (DEFAULT) [address] [place] [address] 58142 Chloride [Moles/Vol] 100 mmol/L Low 101-111 [facility] Comment on above: Performed By: #### 1 [id number], 1281122433, 2771318, 9121108, 1401565, 3970537, 7286271 #### [facility] (DEFAULT) [address] [place] [address] 99937 CO2 [Moles/Vol] 26 mmol/L Normal 21-32 [facility] Comment on above: Performed By: #### 1 [id number], 1043217318, 3753539, 8361438, 1109206, 5017470, 7415639 #### [facility] (DEFAULT) [address] [place] [address] 94086 Creatinine [Mass/Vol] 0.86 mg/dL Normal 0.60-1.30 [facility] Comment on above: Performed By: #### 1 [id number], 2647256394, 3934080, 8727617, 5482589, 7328918, 2185488 #### [facility] (DEFAULT) [address] [place] [address] 34120 Globulin (S) [Mass/Vol] 3.1 g/dL Normal 1.5-4.3 [facility] Comment on above: Performed By: #### 1 119553343, 9464694059, 0757005, 9996831, 9607550, 2423295, 3056636 #### [facility] (DEFAULT) [address] [place] [address] 53312 Glucose [Mass/Vol] 90.0 mg/dL Normal 74.0-118.0 [facility] Comment on above: Performed By: #### 1 294086384, 4125834414, 7470793, 2569650, 7600896, 9451463, 8951342 #### [facility] (DEFAULT) [address] [place] [address] 47441 Osmolality 267 mOsm/L Invalid Interpretation Code [facility] Comment on above: Performed By: #### 1 [id number], 1369596260, 3274532, 2679414, 2351619, 6319366, 1350743 #### [facility] (DEFAULT) [address] [place] [address] 57143 Potassium [Moles/Vol] 3.8 mmol/L Normal 3.6-5.1 [facility] Comment on above: Performed By: #### 1 866705115, 7283017709, 1510766, 7976387, 5846433, 2480519, 0843758 #### [facility] (DEFAULT) [address] [place] [address] 08201 Protein [Mass/Vol] 7.5 g/dL Normal 6.5-8.1 [facility] Comment on above: Performed By: #### 1 804998773, 3433110185, 2517431, 6891265, 8633412, 6945642, 9018349 #### [facility] (DEFAULT) [address] [place] [address] 23503 Sodium [Moles/Vol] 133.0 mmol/L Low 136.0-144.0 [facility] Comment on above: Performed By: #### 1 613833641, 7374156201, 8603357, 4580380, 8420586, 6877044, 9612482 #### [facility] (DEFAULT) [address] [place] [address] 84562 Urea nitrogen [Mass/Vol] 17 mg/dL Normal - [facility] Comment on above: Performed By: #### 1 [id number], 4877263703, 3529659, 2896819, 6441390, 9335941, 4864739 #### [facility] (DEFAULT) [address] [place] [address] 94030 Urea nitrogen/Creatinine [Mass ratio] 19.7 mg/mg High 4.6-16.2 [facility] Comment on above: Performed By: #### 1 214800397, 0520926808, 1214905, 8505814, 1455055, 5776544, 4918819 #### [facility] (DEFAULT) [address] [place] [address] 56254 GGTon 02-03-2024 Gamma glutamyl transferase [Catalytic activity/Vol] 20.0 U/L Normal 7.0-50.0 [facility] Comment on above: Performed By: #### 1 178401135, 3672421133, 1742746, 9589429, 2614719, 3386743, 7520030 #### [facility] (DEFAULT) [address] [place] [address] 79071 Iron Levelon 02-03-2024 Iron [Mass/Vol] 93.0 ug/dL Normal 28.0-170.0 [facility] Comment on above: Performed By: #### 1 [id number], 1038865722, 4303101, 4998790, 4704308, 4563736, 8651903 #### [facility] (DEFAULT) [address] [place] [address] 81043 LDHon 02-03-2024 LDH 126.0 IU/L Normal 98.0-192.0 [facility] Comment on above: Performed By: #### 1 [id number], 5614540471, 1683444, 7903493, 7861717, 7619175, 4112725 #### [facility] (DEFAULT) [address] [place] [address] 34251 Lipid Panel Standardon 02-02 Cholesterol [Mass/Vol] 214.0 mg/dL High 66.0-200.0 [facility] Comment on above: Performed By: #### 1 [id number], 7111355541, 2112742, 5891902, 2252622, 2798870, 8344118 #### [facility] (DEFAULT) [address] [place] [address] 31071 Cholesterol in HDL [Mass/Vol] 64 mg/dL Normal 40-71 [facility] Comment on above: Performed By: #### 1 650871021, 9307893405, 0136383, 6196062, 7897869, 9696737, 3694527 #### [facility] (DEFAULT) [address] [place] [address] 45032 Cholesterol in LDL [Mass/Vol] 144 mg/dL High 1-100 [facility] Comment on above: Performed By: #### 1 055630689, 3054393036, 1991629, 2960982, 3760211, 1725694, 9591854 #### [facility] (DEFAULT) [address] [place] [address] 50577 Cholesterol.total/C holesterol in HDL [Mass ratio] 3.3 {ratio} Normal 0.0-4.5 [facility] Comment on above: Performed By: #### 1 [id number], 6953619644, 4265650, 0851909, 3805859, 7010813, 0178731 #### [facility] (DEFAULT) [address] [place] [address] Triglyceride [Mass/Vol] 28.0 mg/dL Normal 0.0-150.0 [facility] Comment on above: Performed By: #### 1 583041492, 1808909284, 7117169, 3751929, 2525248, 1116303, 5658187 #### [facility] (DEFAULT) [address] [place] [address] VLDL. 6 mg/dL Normal 5-40 [facility] Comment on above: Performed By: #### 1 752150493, 7003572341, 6651092, 1246855, 6913051, 7356453, 0042760 #### [facility] (DEFAULT) [address] [place] [address] 86202 Phoson 02-03-2024 Phosphate [Mass/Vol] 2.9 mg/dL Normal 2.5-4.6 [facility] Comment on above: Performed By: #### 1 [id number], 0461702050, 5428170, 2202167, 1432312, 4167949, 8864455 #### [facility] (DEFAULT) [address] [place] [address] 32004 Uric Acidon 02-03-2024 Urate [Mass/Vol] 4.0 mg/dL Normal 2.6-8.0 [facility] Comment on above: Performed By: #### 1 [id number], 6820384650, 7599106, 4097390, 0003917, 0714315, 7325442 #### [facility] (DEFAULT) [address] [place] [address] 44324 XR chest 2V*on 03-02-2023 XR chest 2V* [facility] [place] [address] XRay Report Signed Patient: Alondra Sanches MR#: [id number] : 1995 Acct:[id number] Age/Sex: 27 / F ADM Date: 03/02/23 [facility] Att[facility] Dr: Lisandro Buitrago DO Copies to: Lisandro Buitrago DO Ordering Provider: Lisandro Buitrago DO Date of Service: 03/02/23 XR/XR shoulder LT min 2V*: Left shoulder pain ([id number]) XR/XR chest 2V*: Left shoulder pain;Chest pain [...] Puentes Jr., D.OReese03/02/2023 4:13 PM Dictation Location: [place] [address] Transcribed By: [facility] 03/02/231612 Dictated By: Terry Puentes Jr, DO 03/02/231611 Signed By: 03/02/231612 [facility] CBC W MANUAL DIFFon 07-29-19 22 ATYPICAL LYMPH # Normal [facility] Comment on above: Performed By: #### C GARRET #### [facility] [address] [address] [address] Susannah Hopkins ATYPICAL LYMPH % Normal [facility] Comment on above: Performed By: #### C BCMAN #### [facility] [address] [address] [address] Susannah Hopkins BAND # 0.3 103/ul Normal 0.0-0.3 [facility] Comment on above: Performed By: #### C BCMAN #### [facility] [address] [address] [address] Susannah Hopkins BAND % 2 % Normal 0-5 [facility] Comment on above: Performed By: #### C BCMAN #### [facility] [address] [address] [address] Susannah Hopkins BASOM # 0.00 103/ul Normal 0.00-0.10 [facility] Comment on above: Performed By: #### C GARRET #### [facility] [address] [place] [address] Dr. Susannah Hopkins BASOM % 0.0 % Critically low 0.2-2.0 [facility] Comment on above: Performed By: #### C BCMAN #### [facility] [address] [address] [address] Susannah Hopkins BLAST # Normal [facility] Comment on above: Performed By: #### C BCMAN #### [facility] [address] [place] [address] Dr. Susannah Hopkins BLAST % Normal [facility] Comment on above: Performed By: #### C BCOCTAVIANO #### [facility] [address] [place] [address] Dr. Susannah Hopkins CORRECTED WBC Normal 4.0-11.0 [facility] Comment on above: Performed By: #### C BCOCTAVIANO #### [facility] [address] [place] [address] Dr. Susannah Hopkins EOS # 0.00 103/ul Normal 0.00-0.70 [facility] Comment on above: Performed By: #### C BCOCTAVIANO #### [facility] [address] [place] [address] Dr. Susannah Hopkins EOS% 0.0 % Critically low 0.9-7.0 [facility] Comment on above: Performed By: #### C BCOCTAVIANO #### [facility] [address] [place] [address] Dr. Susannah Hopkins HCT 46.0 % Normal 36.0-48.0 [facility] Comment on above: Performed By: #### C BCMAN #### [facility] [address] [place] [address] Dr. Susannah Hopkins HGB 15.7 g/dl Normal 12.0-16.0 [facility] Comment on above: Performed By: #### C BCMAN #### [facility] [address] [place] [address] Dr. Susannah Hopkins LYMPHM # 0.69 103/ul Critically low 1.20-3.80 [facility] Comment on above: Performed By: #### C BCMAN #### [facility] [address] [place] [address] Dr. Susannah Hopkins LYMPHM% 4.0 % Critically low 20.5-60.0 [facility] Comment on above: Performed By: #### C GARRET #### [facility] [address] [place] [address] Dr. Susannah Hopkins MCH 30.1 pg Normal 26.7-34.0 [facility] Comment on above: Performed By: #### C GARRET #### [facility] [address] [place] [address] Dr. Susannah Hopkins MCHC 34.1 g/dl Normal 29.9-35.2 [facility] Comment on above: Performed By: #### C GARRET #### [facility] [address] [place] [address] Dr. Susannah Hopkins MCV 88.3 fL Normal 81.0-99.0 [facility] Comment on above: Performed By: #### C GARRET #### [facility] [address] [place] [address] Dr. Susannah Hopkins METAMYELOCYTE # Normal [facility] Comment on above: Performed By: #### C GARRET #### [facility] [address] [place] [address] Dr. Susannah Hopkins METAMYELOCYTE % Normal [facility] Comment on above: Performed By: #### C GARRET #### [facility] [address] [place] [address] Dr. Susannah Hopkins MONOM# 1.20 103/ul Critically high 0.30-0.80 [facility] Comment on above: Performed By: #### C GARRET #### [facility] [address] [place] [address] Dr. Susannah Hopkins MONOM% 7.0 % Normal 1.7-12.0 [facility] Comment on above: Performed By: #### C GARRET #### [facility] [address] [place] [address] Dr. Susannah Hopkins MPV 9.8 fL Normal 9.5-13.5 [facility] Comment on above: Performed By: #### C ESDRASOCTAVIANO #### [facility] [address] [address] [address] Susannah Hopkins MYELOCYTE # Normal [facility] Comment on above: Performed By: #### C BCOCTAVIANO #### [facility] [address] [address] [address] Susannah Hopkins MYELOCYTE % Normal [facility] Comment on above: Performed By: #### C GARRET #### [facility] [address] [address] [address] Susannah Hopkins NRBC Normal [facility] Comment on above: Performed By: #### C GARRET #### [facility] [address] [address] [address] Susannah Hopkins PLT 278 103/ul Normal 150-450 [facility] Comment on above: Performed By: #### C GARRET #### [facility] [address] [address] [address] Susannah Hopkins RBC 5.21 106/ul Normal 4.20-5.40 [facility] Comment on above: Performed By: #### C GARRET #### [facility] [address] [address] [address] Susannah Hopkins RDW 11.7 % Normal 11.0-15.0 [facility] Comment on above: Performed By: #### C GARRET #### [facility] [address] [address] [address] Susannah Hopkins SEG # 14.96 103/ul Critically high 1.40-6.50 [facility] Comment on above: Performed By: #### C BCOCTAVIANO #### [facility] [address] [address] [address] Susannah Hopkins SEG % 87.0 % Critically high 43.0-75.0 [facility] Comment on above: Performed By: #### C GARRET #### [facility] [address] [address] [address] Susannah Hopkins WBC 17.2 103/ul Critically high 4.0-11.0 [facility] Comment on above: Performed By: #### C GARRET #### [facility] [address] [place] [address] Dr. Susannah Hopkins INFLUENZA A AND B AGon 07-28 INFLUANE SEE BELOW Normal [facility] Comment on above: Result Comment: Nega tive for Flu A protein angiten. Infection due to Flu A cannot be ruled out. Flu A angiten in the sample may be below the detection limit of the test. Performed By: #### I NFLUAB #### [facility] [address] [place] [address] Dr. Susannah Hopkins INFLUBNEG SEE BELOW Normal [facility] Comment on above: Result Comment: Nega tive for Flu B protein antigen. Infection due to Flu B cannot be ruled out. Flu B antigen in the sample may be below the detection limit of the test. Performed By: #### I NFLUAB #### [facility] [address] [place] [address] Dr. Susannah Hopkins INFLUENZA A AG Negative Normal NEGATIVE SEE COMMENT [facility] Comment on above: Performed By: #### I NFLUAB #### [facility] [address] [place] [address] Dr. Susannah Hopkins INFLUENZA B AG Negative Normal NEGATIVE SEE COMMENT [facility] Comment on above: Performed By: #### I NFLUAB #### [facility] [address] [place] [address] Dr. Susannah Hopkins INTERNAL CONTROLS Within Normal Limits Normal Within Normal Limits [facility] Comment on above: Performed By: #### I NFLUAB #### [facility] [address] [place] [address] Dr. Susannah Hopkins PREG HCG QUALon 07-28-2021 , QUAL Negative Normal NEGATIVE [facility] Comment on above: Performed By: #### P REG #### [facility] [address] [place] [address] Dr. Susannah Hopkins PROF 14(COMP METB)on 022 Albumin [Mass/Vol] 4.4 g/dL Normal 3.4-5.0 [facility] Comment on above: Performed By: #### C MP #### [facility] [address] [place] [address] Dr. Susannah Hopkins Albumin/Globulin [Mass ratio] 1.1 {ratio} Normal [facility] Comment on above: Performed By: #### C MP #### [facility] [address] [place] [address] Dr. Susannah Hopkins ALP [Catalytic activity/Vol] 71 U/L Normal 46-116 [facility] Comment on above: Performed By: #### C MP #### [facility] [address] [place] [address] Dr. Susannah Hopkins ALT [Catalytic activity/Vol] 19 U/L Normal 14-59 [facility] Comment on above: Performed By: #### C MP #### [facility] [address] [place] [address] Dr. Susannah Hopkins Anion gap [Moles/Vol] 15.1 mmol/L Normal [facility] Comment on above: Performed By: #### C MP #### [facility] [address] [place] [address] Dr. Susannah Hopkins AST [Catalytic activity/Vol] 23 U/L Normal 15-37 [facility] Comment on above: Performed By: #### C MP #### [facility] [address] [place] [address] Dr. Susannah Hopkins Bilirubin [Mass/Vol] 0.9 mg/dL Normal 0.2-1.3 [facility] Comment on above: Performed By: #### C MP #### [facility] [address] [place] [address] Dr. Susannah Hopkins Calcium [Mass/Vol] 9.5 mg/dL Normal 8.5-10.1 [facility] Comment on above: Performed By: #### C MP #### [facility] [address] [place] [address] Dr. Susannah Hopkins Chloride [Moles/Vol] 101 mmol/L Normal 98-107 [facility] Comment on above: Performed By: #### C MP #### [facility] [address] [place] [address] Dr. Susannah Hopkins CO2 [Moles/Vol] 23.8 mmol/L Normal 22.0-30.0 [facility] Comment on above: Performed By: #### C MP #### [facility] [address] [address] [address] Susannah Hopkins Creatinine [Mass/Vol] 1.04 mg/dL Normal 0.52-1.04 [facility] Comment on above: Performed By: #### C MP #### [facility] [address] [address] [address] Susannah Hopkins EGFR-AF CITIZEN OF [place] >60 Normal >=60 [facility] Comment on above: Performed By: #### C MP #### [facility] [address] [address] [address] Susannah Hopkins EGFR-NON AF CITIZEN OF [place] >60 Normal >=60 [facility] Comment on above: Performed By: #### C MP #### [facility] [address] [place] [address] Dr. Susannah Hopkins Globulin (S) [Mass/Vol] 3.9 g/dL Normal [facility] Comment on above: Performed By: #### C MP #### [facility] [address] [place] [address] Dr. Susannah Hopkins Glucose [Mass/Vol] 157 mg/dL Critically high 74-106 [facility] Comment on above: Performed By: #### C MP #### [facility] [address] [place] [address] Dr. Susannah Hopkins Potassium [Moles/Vol] 3.9 mmol/L Normal 3.4-5.0 [facility] Comment on above: Performed By: #### C MP #### [facility] [address] [place] [address] Dr. Susannah Hopkins Protein [Mass/Vol] 8.3 g/dL Critically high 6.1-8.2 [facility] Comment on above: Performed By: #### C MP #### [facility] [address] [place] [address] Dr. Susannah Hopkins Sodium [Moles/Vol] 136 mmol/L Critically low 137-[address] [facility] Comment on above: Performed By: #### C MP #### [facility] [address] [place], [place] [address] Dr. Susannah Hopkins Urea nitrogen [Mass/Vol] 20.0 mg/dL Critically high 7.0-18.0 [facility] Comment on above: Performed By: #### C MP #### [facility] [address] [place], [place] [address] Dr. Susannah Hopkins Urea nitrogen/Creatinine [Mass ratio] 19.2 mg/mg Normal [facility] Comment on above: Performed By: #### C MP #### [facility] [address] [place], [place] [address] Dr. Susannah Hopkins Vital Signs Date Time Vital Sign Value Performing Clinician Facility 01-02-2025 08:26-0400 Body mass index (BMI) [Ratio] 28.96 kg/m2 Rocio Blake DO Work Phone: [facility] 01-02-2025 08:26-0400 Body weight 74.16 kg Rocio Blake DO Work Phone: [facility] 01-02-2025 08:26-0400 Diastolic blood pressure 76 mm[Hg] Rocio Blake DO Work Phone: [facility] 01-02-2025 08:26-0400 Systolic blood pressure 120 mm[Hg] Rocio Blake DO Work Phone: [facility] 12-19-2024 09:04-0400 Body mass index (BMI) [Ratio] 28.7 kg/m2 Nadine DE JESUS Work Phone: [facility] 12-19-2024 09:04-0400 Body weight 73.48 kg Nadine DE JESUS Work Phone: [facility] 12-19-2024 09:04-0400 Diastolic blood pressure 78 mm[Hg] Nadine DE JESUS Work Phone: [facility] 12-19-2024 09:04-0400 Systolic blood pressure 104 mm[Hg] Nadine DE JESUS Work Phone: [facility] 12-05-2024 09:23-0400 Body mass index (BMI) [Ratio] 28.52 kg/m2 Rocio Blake DO Work Phone: [facility] 12-05-2024 09:23-0400 Body weight 73.03 kg Rocio Blake DO Work Phone: [facility] 12-05-2024 09:23-0400 Diastolic blood pressure 76 mm[Hg] Rocio Blake DO Work Phone: [facility] 12-05-2024 09:23-0400 Systolic blood pressure 120 mm[Hg] Rocio Blake DO Work Phone: [facility] 11-22-2024 08:52-0400 Body mass index (BMI) [Ratio] 28.19 kg/m2 Nadine Galvan PA Work Phone: [facility] 11-22-2024 08:52-0400 Body weight 72.18 kg Nadine Galvan PA Work Phone: [facility] 11-22-2024 08:52-0400 Diastolic blood pressure 76 mm[Hg] Nadine Mandy PA Work Phone: [facility] 11-22-2024 08:52-0400 Systolic blood pressure 120 mm[Hg] Nadine Mandy PA Work Phone: [facility] 10-26-2024 12:05-0400 Body mass index (BMI) [Ratio] 26.93 kg/m2 Rocio Blake DO Work Phone: [facility] 10-26-2024 12:05-0400 Body weight 68.95 kg Rocio Blake DO Work Phone: [facility] 10-26-2024 12:05-0400 Diastolic blood pressure 68 mm[Hg] Rocio Blake DO Work Phone: [facility] 10-26-2024 12:05-0400 Systolic blood pressure 120 mm[Hg] Rocio Blake DO Work Phone: [facility] 08-29-2024 14:34-0400 Body mass index (BMI) [Ratio] 25.65 kg/m2 Rocio Blake DO Work Phone: [facility] 08-29-2024 14:34-0400 Body weight 65.68 kg Rocio Blake DO Work Phone: [facility] 08-29-2024 14:34-0400 Diastolic blood pressure 72 mm[Hg] Rocio Blake DO Work Phone: [facility] 08-29-2024 14:34-0400 Systolic blood pressure 120 mm[Hg] Rocio Blake DO Work Phone: [facility] 08-10-2024 14:55-0400 Body height 160 cm [facility] Nurse [facility] 08-10-2024 14:55-0400 Body mass index (BMI) [Ratio] 25.18 kg/m2 [facility] Nurse [facility] 08-10-2024 14:55-0400 Body weight 64.47 kg [facility] Nurse [facility] 08-10-2024 14:55-0400 Diastolic blood pressure 76 mm[Hg] [facility] Nurse [facility] 08-10-2024 14:55-0400 Systolic blood pressure 120 mm[Hg] [facility] Nurse [facility] 05-16-2024 12:44-0500 Body weight 65.32 kg Attila Bundy MD Work Phone: [facility] 05-16-2024 12:44-0500 Diastolic blood pressure 78 mm[Hg] Attila Bundy MD Work Phone: [facility] 05-16-2024 12:44-0500 Systolic blood pressure 120 mm[Hg] Attila Bundy MD Work Phone: [facility] 02-08-2024 15:08-0400 Body weight 66.22 kg Attila Bundy MD Work Phone: [facility] 02-08-2024 15:08-0400 Diastolic blood pressure 68 mm[Hg] Attila Bundy MD Work Phone: [facility] 02-08-2024 15:08-0400 Systolic blood pressure 130 mm[Hg] Attila Bundy MD Work Phone: [facility] 05-12-2023 07:30-0500 Body height 158.75 cm Tyrell Linsey Other [employer] [facility] Other 05-12-2023 07:30-0500 Body mass index (BMI) [Ratio] 25.41 kg/m2 Tyrell Stiles Other [facility] Other 05-12-2023 07:30-0500 Body weight 64.05 kg Tyrell Linsey Other [facility] Other 05-12-2023 07:30-0500 Diastolic blood pressure 78 mm[Hg] Tyrell Stiles Other [facility] Other 05-12-2023 07:30-0500 Respiratory rate 16 /min Tyrell Stiles Other [facility] Other 05-12-2023 07:30-0500 SaO2% (BldA) [Mass fraction] 98 % Tyrell Linsey Other [facility] Other 05-12-2023 07:30-0500 Systolic blood pressure 122 mm[Hg] Tyrell Stiles Other [facility] Other 02-24-2023 12:30-0400 Body height 158.75 cm Lisandro Buitrago Other [facility] Other 02-24-2023 12:30-0400 Body mass index (BMI) [Ratio] 25.2 kg/m2 Lisandro LLamasofts Other [facility] Other 02-24-2023 12:30-0400 Body weight 63.5 kg Lisandro Martínezs Other [facility] Other 02-24-2023 12:30-0400 Diastolic blood pressure 85 mm[Hg] Lisandroteri Martínezs Other [facility] Other 02-24-2023 12:30-0400 Respiratory rate 16 /min Lisandroteri Martínezs Other [facility] Other 02-24-2023 12:30-0400 SaO2% (BldA) [Mass fraction] 99 % Lisandroteri Martínezs Other [facility] Other 02-24-2023 12:30-0400 Systolic blood pressure 140 mm[Hg] Lisandro Mauricios Other [facility] Other Encounters Encounter Date Encounter Type Care [...] flowsheet Rocio Blake DO Work Phone: [facility] Start: 01-02-2025 End: 01-02-2025 flow sheet Rocio Blake DO Work Phone: [facility] Comment on above: Third trimester preg lindsey ([facility]); 32 weeks gestation of ([facility]); ZULMA (amniotic fluid index) borderline low Start: 01-02-2025 End: 01-02-2025 ambulatory ROCIO BLAKE Not Available Start: 12-19-2024 End: 12-19-2024 flow sheet Nadine DE JESUS Work Phone: [facility] Comment on above: 30 weeks gestation o f ([facility]); Third trimester ([facility]); HSV infection Start: 12-19-2024 End: 12-19-2024 ambulatory NADINE GALVAN Not Available Start: 12-05-2024 End: 12-05-2024 Bamboo flowsheet Rocio Blake DO Work Phone: [facility] Start: 12-05-2024 End: 12-05-2024 Bamboo flowsheet Rocio Blake DO Work Phone: [facility] Start: 12-05-2024 End: 12-05-2024 flow sheet Rocio Blake DO Work Phone: [facility] Comment on above: Third trimester preg lindsey ([facility]); 28 weeks gestation of ([facility]); HSV infection; size inconsistent with dates ([facility]) Start: 12-05-2024 End: 12-05-2024 ambulatory ROCIO [...] on above: 26 weeks gestation o f ([facility]); Second trimester ([facility]); Elevated glucose tolerance test Start: 11-22-2024 End: 11-22-2024 ambulatory NADINE GARCIAEY Not Available Start: 10-26-2024 End: 10-26-2024 ambulatory ROCIO BLAKE Not Available Start: 10-26-2024 End: 10-26-2024 flow sheet Rocio Blake DO Work Phone: [facility] Comment on above: Second trimester pre gnancy ([facility]); 22 weeks gestation of ([facility]); Diabetes mellitus screening Start: 10-26-2024 [...] minutes Attila Bundy MD Work Phone: [facility] Comment on above: Hormone imbalance (P rimary Dx); Amenorrhea; Missed menses; Family planning; Thyroid disorder screen Start: 05-16-2024 End: 05-16-2024 ambulatory ATTILA BUNDY Not Available Start: 03-30-2024 End: 03-30-2024 ambulatory [facility] Facility:[facility] Start: 02-08-2024 End: 02-08-2024 Patient encounter status Attila Bundy MD Work Phone: [facility] Start: 02-08-2024 End: 02-08-2024 Periodic preventive med est patient 18-39 yrs Attlia Bundy MD Work Phone: [facility] Comment on above: Amenorrhea (Primary Dx); Screening for malignant neoplasm of cervix; Encounter for gynecological examination without abnormal finding; Encounter for surveillance of vaginal ring hormonal contraceptive device; Missed menses Start: 02-08-2024 End: 02-08-2024 ambulatory ATTILA BUNDY Not Available Start: 01-24-2024 End: 01-24-2024 ambulatory Facility:[facility] Start: 05-12-2023 End: 05-12-2023 ambulatory Tyrell Stiles Other [facility] [employer] Other Start: 05-12-2023 Office outpatient vi sit 15 minutes Tyrell Stiles [facility] [place] Start: 03-02-2023 End: 03-02-2023 ambulatory Lisandro Buitrago Facility:[facility] Start: 03-02-2023 End: 03-02-2023 ambulatory DO Lisandroteri Buitrago Work Phone: [facility] Work Phone: Start: 03-02-2023 End: 03-02-2023 Patient encounter procedure DO Lisandroteri Buitrago Work Phone: [facility] Start: 02-24-2023 End: 02-24-2023 ambulatory Lisandro Minna Other [facility] [employer] Other Start: 02-24-2023 Encounter for genera l adult medical examination without abnormal findings Lisandro Kuns [facility] [place] Start: 02-24-2023 Office outpatient ne w 30 minutes Lisandroteri Buitrago [facility] [place] Start: 07-28-2021 End: 07-28-[address] JANES [...] procedure 01/16/2025 8:50 AM EDT Routine [facility] [address] [place] [address] Nadine Galvan PA [address] [place] [address] [facility] Start: 01-15-2025 End: 01-15-2025 Patient encounter procedure 01/15/2025 8:50 AM EDT Routine [facility] [address] [place] [place] [address] Nadine Galvan, PA [address] [place], [place] [id number] [facility] Start: 01-08-2025 Influenza vaccination [...] AM EDT Routine [facility] [address] [place] [address] Nadine Galvan PA [address] [place] [address] [facility] Start: 12-19-2024 End: 12-19-2024 Professional / ancillary services management 12/19/2024 8:00 AM EDT Ancillary Procedure [facility] [address] [place] [address] [facility] Start: 12-05-2024 End: 04-07-2025 US for US OB follow up transabdominal approach Imaging Routine size inconsistent with dates ([facility]) Expected: 12/05/2024, Expires: 04/07/2025 [facility] Work Phone: Comment on above: Expected: 12/05/2024 , Expires: 04/07/2025 Start: 12-05-2024 End: 12-05-2024 Patient encounter procedure [facility] Comment on above: Arrived Start: 11-22-2024 End: 11-22-2025 Measurement of glucose 3 hours after glucose challenge for glucose tolerance test Glucose tolerance, 3 hours Lab Routine Elevated glucose tolerance test Expected: 11/22/2024 (Approximate), Expires: 11/22/2025 [facility] Work Phone: Comment on above: Expected: 11/22/2024 (Approximate), Expires: 11/22/2025 Start: 11-22-2024 End: 11-22-2024 Patient encounter procedure 11/22/2024 8:50 AM EDT Routine [facility] [address] [place] [id number] Nadine Galvan PA [facility] [address] [place], [place] [id number] [facility] Start: 10-26-2024 End: 10-26-2025 CBC panel - Blood by Automated count CBC Lab Routine Diabetes mellitus screening Expected: 10/26/2024 (Approximate), Expires: 10/26/2025 [facility] Work Phone: Comment on above: Expected: 10/26/2024 (Approximate), Expires: 10/26/2025 Start: 10-26-2024 End: 10-26-2025 Measurement of glucose 1 hour after glucose challenge for glucose tolerance test Glucose tolerance, 1 hour Lab Routine Diabetes mellitus screening Expected: 10/26/2024 (Approximate), Expires: 10/26/2025 [facility] Comment on above: Expected: 10/26/2024 (Approximate), Expires: 10/26/2025 Start: 09-27-2024 End: 09-27-2024 Patient encounter procedure 09/27/2024 3:30 PM EDT Routine [facility] [address] [place] [phone] Nadine Galvan, PA [address] [place], [place] [id number] [facility] Start: 08-29-2024 End: 08-29-2024 Patient encounter procedure [facility] Comment on above: Arrived Start: 07-27-2024 End: 07-27-2024 ambulatory 07/27/2024 10:30 AM EDT Initial [facility] [address] [place] [phone] Attila Bundy MD [address] [place] [address] [facility] Start: 07-17-2024 End: 07-17-2024 Patient encounter procedure 07/17/2024 12:30 PM EDT Office Visit [facility] [address] [place] [address] Attila Bundy MD [address] [place] [address] [facility] Start: 07-17-2024 End: 07-17-2024 Professional / ancillary services management 07/17/2024 8:30 AM EDT Ancillary Procedure [facility] [address] [place] [phone] [facility] Start: 07-11-2024 End: 07-11-2025 Bacteria identified in Urine by Culture Urine culture Microbiology Routine Encounter for supervision of normal first in first trimester Expected: 07/11/2024, Expires: 07/11/2025 [facility] Comment on above: Expected: 07/11/2024 , Expires: 07/11/2025 Start: 07-11-2024 End: 07-11-2025 BEACON CARRIER SCREEN;14 GENES BEACON CARRIER SCREEN;14 GENES Lab Routine Screening for genetic disease carrier status Expected: 07/11/2024 (Approximate), Expires: 07/11/2025 [facility] Comment on above: Expected: 07/11/2024 (Approximate), Expires: 07/11/2025 Start: 07-11-2024 End: 07-11-2025 Blood type and Indirect antibody screen panel - Blood Type and screen Lab Routine Encounter for supervision of normal first in first trimester Expected: 07/11/2024, Expires: 07/11/2025 [facility] Comment on above: Expected: 07/11/2024 , Expires: 07/11/2025 Start: 07-11-2024 End: 07-11-2025 CBC W Auto Differential panel - Blood CBC and differential Lab Routine Encounter for supervision of normal first in first trimester Expected: 07/11/2024, Expires: 07/11/2025 [facility] Comment on above: Expected: 07/11/2024 , Expires: 07/11/2025 Start: 07-11-2024 End: 07-11-2025 DRUG SCREEN 17 W/CONF, UR DRUG SCREEN 17 W/CONF, UR Lab Routine Encounter for drug screening Expected: 07/11/2024, Expires: 07/11/2025 [facility] Comment on above: Expected: 07/11/2024 , Expires: 07/11/2025 Start: 07-11-2024 End: 07-11-2025 Hepatitis B virus surface Ag [Presence] in Serum or Plasma by Immunoassay Hepatitis B surface antigen Lab Routine Encounter for supervision of normal first in first trimester Expected: 07/11/2024, Expires: 07/11/2025 [facility] Comment on above: Expected: 07/11/2024 , Expires: 07/11/2025 Start: 07-11-2024 End: 07-11-2025 Hepatitis C virus Ab [Presence] in Serum or Plasma by Immunoassay Hepatitis C antibody Lab Routine Encounter for supervision of normal first in first trimester Expected: 07/11/2024, Expires: 07/11/2025 [facility] Comment on above: Expected: 07/11/2024 , Expires: 07/11/2025 Start: 07-11-2024 End: 07-11-2025 HIV-1/HIV-2 antigen/antibody combination immunoassay HIV-1 and HIV-2 antibodies Lab Routine Encounter for supervision of normal first in first trimester Expected: 07/11/2024, Expires: 07/11/2025 [facility] Comment on above: Expected: 07/11/2024 , Expires: 07/11/2025 Start: 07-11-2024 End: 07-11-2025 [id number] PLUS Core+SCA [id number] PLUS Core+SCA Lab Routine Encounter for screening for chromosomal anomalies Expected: 07/11/2024 (Approximate), Expires: 07/11/2025 [facility] Comment on above: Expected: 07/11/2024 (Approximate), Expires: 07/11/2025 Start: 07-11-2024 End: 07-11-2025 Reagin Ab [Presence] in Serum by RPR RPR Lab Routine Encounter for supervision of normal first in first trimester Expected: 07/11/2024, Expires: 07/11/2025 [facility] Comment on above: Expected: 07/11/2024 , Expires: 07/11/2025 Start: 07-11-2024 End: 07-11-2025 Rubella antibody, IgG Rubella antibody, IgG Lab Routine Encounter for supervision of normal first in first trimester Expected: 07/11/2024, Expires: 07/11/2025 [facility] Comment on above: Expected: 07/11/2024 , Expires: 07/11/2025 Start: 07-11-2024 End: 07-11-2025 Urinalysis complete panel - Urine Urinalysis with microscopic Lab Routine Encounter for supervision of normal first in first trimester Expected: 07/11/2024, Expires: 07/11/2025 [facility] Work Phone: Comment on above: Expected: 07/11/2024 , Expires: 07/11/2025 Start: 05-16-2024 End: 05-16-2025 Cortisol Cortisol Lab Routine Hormone imbalance Expected: 05/16/2024, Expires: 05/16/2025 [facility] Comment on above: Expected: 05/16/2024 , Expires: 05/16/2025 Start: 05-16-2024 End: 05-16-2025 DHEA-sulfate DHEA-sulfate Lab Routine Hormone imbalance Expected: 05/16/2024, Expires: 05/16/2025 [facility] Comment on above: Expected: 05/16/2024 , Expires: 05/16/2025 Start: 05-16-2024 End: 05-16-2025 Estradiol Estradiol Lab Routine Hormone imbalance Expected: 05/16/2024, Expires: 05/16/2025 [facility] Comment on above: Expected: 05/16/2024 , Expires: 05/16/2025 Start: 05-16-2024 End: 05-16-2025 Estrone Estrone Lab Routine Hormone imbalance Expected: 05/16/2024, Expires: 05/16/2025 [facility] Comment on above: Expected: 05/16/2024 , Expires: 05/16/2025 Start: 05-16-2024 End: 05-16-2025 Follicle stimulating hormone Follicle stimulating hormone Lab Routine Hormone imbalance Thyroid disorder screen Expected: 05/16/2024, Expires: 05/16/2025 [facility] Comment on above: Expected: 05/16/2024 , Expires: 05/16/2025 Start: 05-16-2024 End: 05-16-2025 Insulin, fasting Insulin, fasting Lab Routine Amenorrhea Missed menses Hormone imbalance Expected: 05/16/2024, Expires: 05/16/2025 [facility] Comment on above: Expected: 05/16/2024 , Expires: 05/16/2025 Start: 05-16-2024 End: 05-16-2025 Luteinizing hormone Luteinizing hormone Lab Routine Hormone imbalance Thyroid disorder screen Expected: 05/16/2024, Expires: 05/16/2025 [facility] Comment on above: Expected: 05/16/2024 , Expires: 05/16/2025 Start: 05-16-2024 End: 05-16-2025 Progesterone Progesterone Lab Routine Hormone imbalance Expected: 05/16/2024, Expires: 05/16/2025 [facility] Comment on above: Expected: 05/16/2024 , Expires: 05/16/2025 Start: 05-16-2024 End: 05-16-2025 Sex hormone binding globulin Sex hormone binding globulin Lab Routine Hormone imbalance Expected: 05/16/2024, Expires: 05/16/2025 [facility] Comment on above: Expected: 05/16/2024 , Expires: 05/16/2025 Start: 05-16-2024 End: 05-16-2025 Testosterone, free, total Testosterone, free, total Lab Routine Hormone imbalance Expected: 05/16/2024, Expires: 05/16/2025 [facility] Comment on above: Expected: 05/16/2024 , Expires: 05/16/2025 Start: 05-16-2024 End: 05-16-2025 Thyrotropin [Units/volume] in Serum or Plasma TSH Lab Routine Hormone imbalance Thyroid disorder screen Expected: 05/16/2024, Expires: 05/16/2025 [facility] Work Phone: Comment on above: Expected: 05/16/2024 , Expires: 05/16/2025 Start: 05-16-2024 End: 05-16-2025 Vitamin D 1,25 dihydroxy Vitamin D 1,25 dihydroxy Lab Routine Hormone imbalance Expected: 05/16/2024, Expires: 05/16/2025 [facility] Comment on above: Expected: 05/16/2024 , Expires: 05/16/2025 Start: 05-16-2024 End: 05-16-2024 Patient encounter procedure 05/16/2024 12:30 PM EST Office Visit [facility] [address] [place] [address] Attila Bundy MD [address] [place] [address] [facility] Start: 02-08-2024 End: 02-07-2025 Follicle stimulating hormone Follicle stimulating hormone Lab Routine Amenorrhea Expected: 02/08/2024 (Approximate), Expires: 02/07/2025 [facility] Comment on above: Expected: 02/08/2024 (Approximate), Expires: 02/07/2025 Start: 01-09-2024 Influenza vaccination Influenza Vacc ine (#1) [facility] hCG, qualitative hCG, qualitativ e Lab Routine Amenorrhea Ordered: 02/08/2024 [facility] Comment on above: Ordered: 02/08/2024 Hemoglobin A1c/Hemoglobin.total in Blood Hemoglobin A1c Lab Routine with uncertain dates, antepartum Ordered: 08/10/2024 [facility] Work Phone: Comment on above: Ordered: 08/10/2024 Luteinizing hormone Luteinizing hormone Lab Routine Amenorrhea Ordered: 02/08/2024 [facility] Comment on above: Ordered: 02/08/2024 Progesterone Progesterone Lab Routine Amenorrhea Ordered: 02/08/2024 [facility] Comment on above: Ordered: 02/08/2024 SENDOUT TEST MISCELLANEOUS [facility] SENDOUT TEST MISCELLANEOUS [facility] Lab Routine Screening for malignant neoplasm of cervix Encounter for gynecological examination without abnormal finding Ordered: 02/08/2024 [facility] Work Phone: Comment on above: Ordered: 02/08/2024 Testosterone, free, total Testosterone, free, total Lab Routine Amenorrhea Ordered: 02/08/2024 [facility] Comment on above: Ordered: 02/08/2024 Immunizations Immunization Date Immunization Notes Care Provider Fa blaidmir 09-25-2020 COVID-19 Vaccine Moderna - Documentation Purposes Only Lisandro Buitrago Other [facility] 08-21-2020 COVID-19 Vaccine Moderna - Documentation Purposes Only Lisandro Buitrago Other [facility] Other Payers Date Payer Category Payer Unknown [id number] 2023 Private Health Insurance [id number] 2023 Private Health Insurance [id number] 2023 Unknown [id number] 2. [id number] 1995 Unknown [id number] 2.16.84 0.1.000777.3.579.2.593 1995 Unknown [id number] 2.16.8 40.1.063968.3.579.2.1259 1995 Unknown [id number] 2.16.8 40.1.025740.3.579.2.1259 1995 Unknown [id number] 2.16.8 40.1.856680.3.579.2.9 1995 Unknown [id number] 2.16.8 40.1.304340.3.579.2.1259 1995 Unknown [id number] 2.16.8 40.1.315084.3.579.2.1259 1995 Unknown [id number] 2.16.8 40.1.922323.3.579.2.9 1995 Unknown [id number] 2.16.8 40.1.117748.3.579.2.9 1995 Unknown [id number] 2.16.84 0.1.827924.3.579.2.1258 1995 Unknown [id number] 2.16.84 0.1.963395.3.579.2.1258 1995 Unknown [id number] 2.16.84 0.1.440646.3.579.2.1258 1995 Unknown [id number] 2.16.84 0.1.639286.3.579.2.9 1995 Unknown [id number] 2.16.84 0.1.942665.3.579.2.1258 1995 Unknown [id number] 2.16.84 0.1.458388.3.579.2.9 1995 Unknown [id number] 2.16.84 0.1.190086.3.579.2.9 1995 Unknown [id number] 2.16.8 40.1.563459.3.579.2.718 1959 Self-pay Unknown [id number] Unknown [id number] 2.16.8 40.1.230411.3.579.2.531 Social History Date Type Detail Facility Start: 02-08-2024 End: 05-16-2024 Sex Assigned At [facility] [employer] Other Start: 1995 Sex Assigned At Female [facility] Start: 05-15-2023 [facility] Start: 05-15-2023 Tobacco use and exposure Smokeless tobacco non-user [facility] Start: 02-08-2024 Alcoholic beverage intake Current [...] nursing note reviewed. Exam conducted with a multi operation forming machine setter present. Vitals: Estimated body mass index is 28.96 kg/m as calculated from the following: Height as of 08/10/24: 5' 3 . Weight as of this encounter: 163 lb 8 oz. BP: 120/76 Patient's last menstrual period was 05/09/2024 (exact date). ASSESSMENT & PLAN ICD-10-CM 1. Third trimester ([facility]) Z34.93 POCT urinalysis dipstick manually resulted 2. 32 weeks gestation of ([facility]) Z3A.32 Return OB: Patient presents today for [...] Lozano DO documented in this encounter [facility] 12-19-2024 History of Presen t illness [...] PLAN ICD-10-CM 1. 30 weeks gestation of ([facility]) Z3A.30 POCT urinalysis dipstick manually resulted 2. Third trimester ([facility]) Z34.93 POCT urinalysis dipstick manually resulted 3. [...] LIZA Zaldivar documented in this encounter [facility] 12-05-2024 History of Presen t illness [...] nursing note reviewed. Exam conducted with a multi operation forming machine setter present. Vitals: Estimated body mass index is 28.52 kg/m as calculated from the following: Height as of 08/10/24: 5' 3 . Weight as of this encounter: 161 lb. BP: 120/76 Patient's last menstrual period was 05/09/2024 (exact date). ASSESSMENT & PLAN ICD-10-CM 1. Third trimester ([facility]) Z34.93 CANCELED: POCT urinalysis dipstick manually resulted 2. 28 weeks gestation of ([facility]) Z3A.28 3. 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 size inconsistent with dates ([facility]) O26.849 US OB follow up transabdominal [...] Lozano DO documented in this encounter [facility] 11-22-2024 History of Presen t illness [...] PLAN ICD-10-CM 1. 26 weeks gestation of ([facility]) Z3A.26 POCT urinalysis dipstick manually resulted 2. Second trimester ([facility]) Z34.92 POCT urinalysis dipstick manually [...] LIZA Zaldivar documented in this encounter [facility] 10-26-2024 History of Presen t illness [...] Paternal Grandfather Skyler Sanches Cancer Paternal Grandfather Sklyer Sanches SURGICAL HISTORY Past Surgical History: Procedure [...] ASSESSMENT & PLAN ICD-10-CM 1. Second trimester ([facility]) Z34.92 POCT urinalysis dipstick manually resulted 2. 22 weeks gestation of ([facility]) Z3A.22 3. Diabetes mellitus screening Z13.1 [...] by Azeb Gonzalez MA on behalf of: oRcio Lozano DO documented in this encounter [facility] 08-29-2024 History of Presen t illness [...] nursing note reviewed. Exam conducted with a multi operation forming machine setter present. Vitals: Estimated body mass index is [...] or undercooked meat, and stay away from [facility]. Patient has been consulted regarding any further do's and don'ts of . Patient voiced understanding and all questions and concerns were answered. Orders Placed This Encounter Procedures POCT urinalysis dipstick manually resulted Follow Up: Patient is to return in 4 weeks for routine OB appointment. Documented by Zita Borrego LPN on behalf of: Rocio Lozano DO documented in this encounter [facility] 08-10-2024 History of Presen t illness [...] or undercooked meat, and stay away from [facility]. Patient has also been advised to not change litter boxes and eat 6 small meals a day. Patient has been consulted regarding the do's and don'ts of . Patient was given labs and all questions and concerns were answered. Patient was given [place] labs to be completed with Hgb A1C. Follow Up: Patient is to return in 4 weeks for routine OB appointment. Follow Up: Patient is to have labs drawn at directed and return to office for initial OB appointment with provider. Patient may call office as needed with any concerns or questions. Nurse Visit Completed by: Domenica Jacinto LPN documented in this encounter [facility] 07-11-2024 History of Presen t illness [...] 10:03 AM documented in this encounter [facility] 05-16-2024 History of Presen t illness Narrative Images from the original note were not included. Attila Bundy MD Obstetrics and Gynecology Patient: Alondra Beaver : 1995 (28 y.o.) Exam Date: 05/16/2024 Reason for Visit - Chief Complaint Patient presents with Follow-up Follow up for Amenorrhea, missed menses, and family planning. Stopped Elu[employer]yng in 10/2023. 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 Exam conducted with a multi operation forming machine setter present. Assessment/Plan ICD-10-CM 1. Amenorrhea N91.2 2. [...] the process. documented in this encounter [facility] 05-16-2024 Instructions Attila Bundy MD - [...] infertility test. documented in this encounter [facility] 02-08-2024 History of Presen t illness [...] 1 year documented in this encounter [facility] 05-12-2023 Evaluation note Encounter Date Diagnosis [...] and trigger point injections can be done. [facility] 10-18-2023 Evaluation note* Encounter Date Diagnosis Assessment Notes Treatment Notes Treatment Clinical Notes Feb, Encounter to establish care (ICD-10 - Z76.89) Patient appears to be in good health upon examination. She is here to establish care for annual physcial for her employment. 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 Feb, Wellness examination (ICD-10 - [...] Stress test ordered to rule out abnormalities. [facility] Other Evaluation noteNo assessment information available [facility] Work Phone: Evaluation note* Diagnosis Amenorrhea- Primary Absence of menstruation Screening for malignant neoplasm of cervix Screening for malignant neoplasm of the cervix Encounter for gynecological examination without abnormal finding Encounter for surveillance of vaginal ring hormonal contraceptive device Missed menses documented in this encounter [facility]* Diagnosis Hormone imbalance- Primary Amenorrhea Absence of menstruation Missed menses Family planning Other general counseling and advice for contraceptive management Thyroid disorder screen Screening for thyroid disorder documented in this encounter [facility]* Diagnosis Encounter for supervision of normal first in first trimester Encounter for drug screening care, antepartum Encounter for screening for chromosomal anomalies care in first trimester Screening for genetic disease carrier status documented in this encounter [facility]* Diagnosis with uncertain dates, antepartum documented in this encounter [facility]* Diagnosis Second trimester state, incidental 14 weeks gestation of documented in this encounter [facility]* Diagnosis Second trimester ([facility]) state, incidental 22 weeks gestation of ([facility]) Diabetes mellitus screening Screening for diabetes mellitus documented in this encounter [facility]* Diagnosis 26 weeks gestation of ([facility]) Second trimester ([facility]) state, incidental Elevated glucose tolerance test Impaired glucose tolerance test documented in this encounter [facility]* Diagnosis Third trimester ([facility]) state, incidental 28 weeks gestation of ([facility]) HSV infection Herpes simplex without mention of complication size inconsistent with dates ([facility]) documented in this encounter [facility]* Diagnosis 30 weeks gestation [...] Date Medical History Left elbow dislocation 2011 [facility] Summary Purpose Family History No Family [...] DATE CREATED AUTHOR AUTHOR'S ORGANIZ ATION 05/24/2023 [facility] DATE CREATED AUTHOR AUTHOR'S ORGANIZ ATION 02/20/2024 [facility] DATE CREATED AUTHOR AUTHOR'S ORGANIZ ATION 01/03/2025 [facility] EPIC DATE CREATED AUTHOR AUTHOR'S ORGANIZ ATION 01/10/2025 [facility] REASON FOR VISIT (unrecogniz ed section and content) Reason Comments Gynecologic Exam Reason Comments Follow-up Reason Comments Initial Visit Nurse Visit Reason Comments Amenorrhea Reason Comments Routine Visit Care Teams (unrecognized sec tion and content) Team Status: Inactive Member Role Status Dates Lisandro Buitrago DO Attending Provider Active Edge Plugger Relationship Specialty Start Date End Date Unallocated, Jordy Horn MD [address] [place] [address] [place] [address] PCP - General Family Medicine 06/23/23 Edge Plugger Relationship Specialty Start Date End Date Unallocated, Jordy Horn MD [address] [place], [place] [address] [address] PCP - General Family Medicine 06/23/23 Edge Plugger Relationship Specialty Start Date End Date Unallocated, Jordy Horn MD [address] [place] [address] PCP - General Family Medicine 06/23/23 Edge Plugger Relationship Specialty Start Date End Date Unallocated, Jordy Horn MD [facility] [address] [facility] [place] [address] PCP - General Family Medicine 06/23/23 Edge Plugger Relationship Specialty Start Date End Date Unallocated, Jordy Horn MD [facility] [place] [address] PCP - General Family Medicine 06/23/23 Edge Plugger Relationship Specialty Start Date End Date Unallocated, Jordy Horn MD [address] [place] [address] PCP - General Family Medicine 06/23/23 Edge Plugger Relationship Specialty Start Date End Date Unallocated, Jordy Horn MD [address] [place] [address] PCP - General Family Medicine 06/23/23 Edge Plugger Relationship Specialty Start Date End Date Unallocated, Jordy Horn MD [address] [place] [address] PCP - General Family Medicine 06/23/23 Edge Plugger Relationship Specialty Start Date End Date Unallocated, Jordy Horn MD [address] [place] [address] PCP - General Family Medicine 06/23/23 Edge Plugger Relationship Specialty Start Date End Date Unallocated, Jordy Horn MD [address] [facility] [place] [address] PCP - General Family Medicine 06/23/23 Edge Plugger Relationship Specialty Start Date End Date Unallocated, Jordy Horn MD [address] [place] [address] PCP - General Family Medicine 06/23/23 Goals [...] BE BASED ON THE PRIMARY CLINICAL RECORDS. [employer] [facility] provides no warranty or guarantee of the accuracy or completeness of information in this document.
[2025-01-15 07:07] VITALS: BP 136/80; PULSE 96
== END 2025-01-15 07:31 | disposition home or self-care (01) ==
LOC: FBCO 06:57 → FBC 07:00
PROVIDERS: PCP Family Medicine; Visit Provider Obstetrics & Gynecology
DX: O26.893 Other specified pregnancy related conditions, third trimester (principal); Z3A.34 34 weeks gestation of pregnancy
CPT/HCPCS: 59025

== ENCOUNTER 2025-01-18 06:59 | Outpatient (OUT) | payer OTHER, SELFPAY ==
--- OUTSIDE RECORDS SUMMARY | 2025-01-15 08:50 | XMS_ITS | Encounter Summary ---
Author Organization [facility] Address [address] [place] [address] Care Team Providers Care Single Pass Soil Stabilizer Operator Name Role Phone Unallocated, Noms Provider [facility] Reason for Visit * Reason Comments Routine Visit Encounter Details Date Type Department Care Team (Late st Contact Info) Description 01/15/2025 8:50 AM EDT Routine [facility] [place] OBGYN [address] [place] [address] Rosaura Li, LIBBY [address] [place] [address] Third trimester ([facility]); 34 weeks gestation of ([facility]) Social History Tobacco Use Types Packs/Day Years [...] Sign Reading Time Taken Comments Blood Pressure 132/72 01/15/2025 9:07 AM EDT Pulse - - Temperature - - Respiratory Rate - - Oxygen Saturation - - Inhaled Oxygen Concentration - - Weight 76.4 kg (168 lb 8 oz) 01/15/2025 9:06 AM EDT Height - - Body Mass Index 29.85 08/10/2024 2:55 PM EDT documented in this encounter Progress Notes * Teresa Ambriz LPN - 01/15/2025 8:50 AM EDT Reason for Appointment: Patient [...] nursing note reviewed. Exam conducted with a rhia present. Vitals: Estimated body mass index is 29.85 kg/m?? as calculated from the following: Height as of 08/10/24: 5' 3 . Weight as of this encounter: 168 lb 8 oz. BP: 132/72 Patient's last menstrual period was 05/09/2024 (exact date). ASSESSMENT & PLAN ICD-10-CM 1. Third trimester ([facility]) Z34.93 POCT urinalysis dipstick manually resulted 2. 34 weeks gestation of ([facility]) Z3A.34 Patient presents today for a routine obstetrics appointment. Patient is currently 34w0d with a Estimated Date of Delivery: 02/26/25. Discussed continuing NST/BPP's. Discussed pediatricians and gave some direction on where to call and what to ask. Patient to return to clinic in 2 weeks for routine OB appointment. Patient and spouse would like to discuss if continuing NST/BPP's. Patient tohave GBS at next appointment. Documented by Teresa Ambriz LPN on behalf of: Rosaura Li NP documented in this encounter Plan of Treatment Upcoming Encounters Date Type Department Care Team (Late st Contact Info) Description 01/29/2025 8:30 AM EDT Routine [facility] [place] OBGYN [address] [place] [address] José Lozano DO [address] [place] [address] documented as of this encounter Goals Goal Patient Goal Type Associated Problems Recent Progress Patient-Stated? Author Reminders Care Plan OB Reminders Jennifer Bond RN documented as of this encounter Procedures Procedure Name Priority Date/Time Associated Diagnosis Comments POCT URINALYSIS DIPSTICK Routine 01/15/2025 9:01 AM EDT Third trimester ([facility]) documented in this encounter Results * (ABNORMAL) POCT urinalysis dipstick manually resulted (01/15/2025 9:01 AM EDT) Color, UA Yellow Clarity, UA [...] Leukocytes, UA Positive Negative - 500+++ Mahsa/mcL Comment:1+ Nitrite, UA Negative Negative - Positive Urine 01/15/2025 9:01 AM EDT Rosaura Li NP POINT OF CARE TEST ENTER/EDIT ORDERABLES Final Result documented in this encounter Visit Diagnoses Diagnosis Third trimester ([facility]) state, incidental 34 weeks gestation of ([facility]) documented in this encounter Additional Health Concerns Active Problems Noted Date Diagnosed Date OB Reminders 07/11/2024 documented as of this encounter Care Teams Single Pass Soil Stabilizer Operator Relationship Specialty Start Date End Date Unallocated, Noms Provider, [address] [place] [address] PCP - General Family Medicine 06/23/23 documented as of this encounter
--- OUTSIDE RECORDS SUMMARY | 2025-01-18 07:01 | XMS_ITS | Encounter Summary ---
Author Organization [facility] Address [address] [place] [address] Care Team Providers Care Emergency Services Professional Name Role Phone Unallocated, Noms Provider [facility] Encounter Details Date Type Department Care Team (Late st Contact Info) Description 01/15/2025 Bamboo flowsheet [facility] [place] [facility]BG[facility] [address] [place] [address] Rosaura Li, LIBBY [address] [place] [address] Social History Tobacco Use Types Packs/Day Years [...] Info) Description 01/29/2025 8:30 AM EDT Routine [facility] [address] [place] [address] José Lozano DO [address] [place] [address] documented as of this encounter Goals Goal Patient Goal Type Associated Problems Recent Progress Patient-Stated? Author Reminders Care Plan OB Reminders Jennifer Bond RN documented as of this encounter Visit Diagnoses Not on filedocumented in this encounter Additional Health Concerns Active Problems Noted Date Diagnosed Date OB Reminders 07/11/2024 documented as of this encounter Care Teams Emergency Services Professional Relationship Specialty Start Date End Date Unallocated, Noms MD Justina [address] [facility] [place] [address] PCP - General Family Medicine 06/23/23 documented as of this encounter
--- OUTSIDE RECORDS SUMMARY | 2025-01-18 07:01 | XMS_ITS | Encounter Summary ---
Author Organization [facility] Address [address] [place] [address] Care Team Providers Care Inspector Structural Bonding Name Role Phone Unallocated, Noms Provider Primary Care [facility] Encounter Details Date Type Department Care Team (Late st Contact Info) Description 09/12/2024 Abstract T[facility]REY [place] OBGYN [address] [place] [address] José Lozano DO [address] [place] [address] Social History Tobacco Use Types Packs/Day Years [...] AM EDT Routine [facility] [address] [place] [address] José Lozano DO [address] [place] [address] documented as of this encounter Goals Goal Patient Goal Type Associated Problems Recent Progress Patient-Stated? Author Reminders Care Plan OB Reminders No Jennifer Ayala RN documented as of this encounter Visit Diagnoses Not on filedocumented in this encounter Additional Health Concerns Active Problems Noted Date Diagnosed Date OB Reminders 07/11/2024 documented as of this encounter Care Teams Inspector Structural Bonding Relationship Specialty Start Date End Date Unallocated, Noms Justina, [address] [place] [address] PCP - General Family Medicine 06/23/23 documented as of this encounter
--- OUTSIDE RECORDS SUMMARY | 2025-01-18 07:01 | XMS_ITS | Encounter Summary ---
Author Organization [facility] Address [address] [place] [address] Care Team Providers Care Tank Pumper Panelboard Name Role Phone Unallocated, Noms Provider Primary Care [facility] Encounter Details Date Type Department Care Team (Late st Contact Info) Description 11/22/2024 Results Follow-Up TORREY MILLSGYDayne [address] [facility] [place] [address] Dea Olivares LPN [address] [place] [address] ALL CBC WITH AUTO DIFF, [...] Info) Description 01/29/2025 8:30 AM EDT Routine TORREY [place] OBGYN [address] [place] [address] José Lozano DO [address] [place] [address] documented as of this encounter Goals Goal Patient Goal Type Associated Problems Recent Progress Patient-Stated? Author Reminders Care Plan OB Reminders Jennifer Bond RN documented as of this encounter Visit Diagnoses Not on filedocumented in this encounter Additional Health Concerns Active Problems Noted Date Diagnosed Date OB Reminders 07/11/2024 documented as of this encounter Care Teams Tank Pumper Panelboard Relationship Specialty Start Date End Date Unallocated, Noms MD Justina [address] [place] [address] PCP - General Family Medicine 06/23/23 documented as of this encounter
--- OUTSIDE RECORDS SUMMARY | 2025-01-18 07:01 | XMS_ITS | Encounter Summary ---
Author Organization [facility] Address [address] [place] [address] Care Team Providers Care Director Of Accounting Name Role Phone Unallocated, Noms Provider Primary Care Provi ulysses Encounter Details Date Type Department Care Team (Late st Contact Info) Description 01/04/2025 Clinisync Result Encounter NOMS External Department Unsolicited Rocio Lozano, DO [address] [facility] [place] [address] Social History Tobacco Use Types Packs/Day Years [...] AM EDT Routine [facility] [address] [facility] [place] [address] Rocio Lozano DO [address] [place] [address] documented as of this encounter Goals Goal [...] EDT Narrative 01/04/2025 10:30 AM EDT The [address] [address] Ultrasound Report Signed Patient: ALONDRA BEAVER MR#: [id number] : 1995 Acct:[id number] Age/Sex: 29 / F ADM Date: 01/04/25 Loc: US Attending Dr: Rocio Lozano D.O. Ordering Physician: Rocio Lozano D.O. Date of Service: 01/04/25 Procedure(s): US OB BPP w non-stress Accession Number(s): [id number] cc: Rocio Lozano D.O.; Zita Alanis M.D. The [address] [address] Patient Name: ALONDRA BEAVER MRN: [id number] date: 1995 Sex: F Assigned Patient Location: [facility] Current Patient Location: Accession/Order Number: [id number] Exam Date: 01/04/2025 07:10 Report Date: 01/04/2025 10:27 At the request of: ROCIO LOZANO DO Procedure: US OB BPP w non-stress BIOPHYSICAL PROFILE: CLINICAL INFORMATION: ZULMA BORDERLINE LOW O28.8 COMPARISON: None There is a single live intrauterine gestation in cephalic presentation. The reported gestational age is 32 weeks 3 days. The heart rate [id number] beats per minute. FINDINGS: TONE: 1 or [...] Lu M.D. 01/04/2025 10:27 AM Dictation Location: [email or web address] Electronically authenticated by: [id number] Y Date: 01/04/2025 10:27 Dictated By: Zita Lu M.D. Signed By: 01/04/25 1030 DD/ 1027 TD/TT: Pharmaceutical Assistant: Procedure Note Radiology, Radiologist, - 01/04/2025 [place] [address] Ultrasound Report Signed Patient: ALONDRA BEAVER [facility]#: [id number] : 1995Acct:[id number] Age/Sex: 29 / FADM Date: 01/04/25 Loc: US Attending Dr: Rocio Lozano D.O. Ordering Physician: Rocio Lozano D.O. Date of Service: 01/04/25 Procedure(s): US OB BPP w non-stress Accession Number(s): [id number] cc: Rocio Lozano D.O.; Zita Alanis M.D. The [place] [id number] Patient Name: ALONDRA BEAVER MRN: [id number] date: 1995 Sex: F Assigned Patient Location: [facility] Current Patient Location: Accession/Order Number: [id number] Exam Date: 01/04/2025 07:10 Report Date: 01/04/2025 10:27 At the request of: ROCIO LOZANO DO Procedure: US OB BPP w non-stress BIOPHYSICAL PROFILE: CLINICAL INFORMATION: ZULMA BORDERLINE LOW O28.8 COMPARISON: None There is a single live intrauterine gestation in cephalic presentation.The reported gestational age is 32 weeks 3 days. The heart [id number] beats per minute. FINDINGS: TONE: 1 or [...] Lu M.D. 01/04/2025 10:27 AM Dictation Location: [place] [address] Electronically authenticated by: [id number] Y Date: 0:27 Dictated By: Zita Lu M.D. Signed By:01/04/25 1030 DD/ 1027 TD/TT: Pharmaceutical Assistant: us Rocio Lozano DO [facility] Final Result documented in this encounter Visit Diagnoses Not on filedocumented in this encounter Additional Health Concerns Active Problems Noted Date Diagnosed Date OB Reminders 07/11/2024 documented as of this encounter Care Teams Director Of Accounting Relationship Specialty Start Date End Date Unallocated, Noms Provider, [place] [address] [place] [address] PCP - General Family Medicine 06/23/23 documented as of this encounter
--- OUTSIDE RECORDS SUMMARY | 2025-01-18 07:01 | XMS_ITS | Clinical Summary ---
Author Organization [facility] Address [address] [place] [address] Care Team Providers Care Epic Kaleidoscope Analyst Name Role Phone Unallocated, Noms Provider Primary Care Provi ulysses Allergies No known active allergies Medications Vit-Fe Fumarate-FA ( PO) Take by mouth Active Encounters Date Type Department Care Team Description 01/15/2025 8:50 [place] [address] Rosaura Li, LIBBY Third trimester ([facility]); 34 weeks gestation of ([facility]) 01/15/2025 [place] [address] Rosaura Li NP 01/08/2025 Clinisync Result Encounter NOMS External Department Unsolicited Rocio Lozano, 01/04/2025 Clinisync Result Encounter NOMS External Department Unsolicited Rocio Lozano, DO 01/02/2025 8:30 [place] [address] Rocio Lozano, DO Third trimester ([facility]); 32 weeks gestation of ([facility]); ZULMA (amniotic fluid index) borderline low 01/02/2025 Bamboo flowsheet NOMRitchie MONTANO [address] [place] [address] Rocio Lozano, 01/02/2025 Travel 12/19/2024 8:50 AM EDT Routine [facility] [place] FIGUEROAN Krist[address] [facility] [place] [address] Nadine Gurrola PA 30 weeks gestation of ([facility]); Third trimester ([facility]); HSV infection 12/19/2024 8:00 AM EDT Ancillary Procedure [facility] [place] MILLSGYN [address] [place] [address] size inconsistent with dates ([facility]) 12/19/2024 Telephone [facility] [place] Humphries [facility] [place] [address] Dea Olivares LPN 12/05/2024 9:00 AM EDT Routine [facility] [place] FIG[address] [facility] [place] [address] Rocio Lozano DO Third trimester ([facility]); 28 weeks gestation of ([facility]); HSV infection; size inconsistent with dates ([facility]) 12/05/2024 Bamboo flowsheet [facility] [place] FIGUEROAN [address] [place] [address] [place] [address] Rocio Lozano DO 12/04/2024 Travel 11/28/2024 Clinisync Result Encounter NOMS External Department Unsolicited Nadine Gurrola PA 11/22/2024 8:50 AM EDT Routine [facility] [place] [address] Nadine Gurrola PA 26 weeks gestation of ([facility]); Second trimester ([facility]); Elevated glucose tolerance test 11/22/2024 Results Follow-Up [facility] [place] [address] Dea Olivares LPN ALL CBC WITH AUTO DIFF, GLUCOSE 1 HOUR 11/22/2024 Clinisync Result Encounter NOMS External Department Unsolicited Rocio Lozano DO 11/17/2024 Travel 10/26/2024 11:50 AM EDT Routine [facility] [place] [facility]O [address] [facility] [place] [address] Rocio Lozano DO Second trimester ([facility]); 22 weeks gestation of ([facility]); Diabetes mellitus screening 10/26/2024 11:00 AM EDT Ancillary Procedure [facility] [place] MONTANO [address] [place] [address] from Last 3 Months Family History [...] Pressure 132/72 01/15/2025 9:07 AM EDT Pulse 77 06/23/2023 9:25 AM EST Temperature 36.4 C (97.5 F) 06/23/2023 9:25 AM EST Respiratory Rate 18 05/15/2023 11:28 AM EST Oxygen Saturation 99% 06/23/2023 9:25 AM EST Inhaled Oxygen Concentration - - Weight 76.4 kg (168 lb 8 oz) 01/15/2025 9:06 AM EDT Height 160 cm (5' 3 ) 08/10/2024 2:55 PM EDT Body Mass Index 29.85 08/10/2024 2:55 PM EDT Plan of Treatment Upcoming Encounters Date Type Department Care Team (Late st Contact Info) Description 01/29/2025 8:30 AM EDT Routine [facility] OBGYN [address] [place] [address] Rocio Lozano DO [address] [address] Health Maintenance Due Date Last Done Comments Influenza Vaccine (#1) 2025 Goals Goal Patient Goal Type Associated Problems Recent Progress Patient-Stated? Author Reminders Care Plan OB Reminders No Jennifer Ayala, liver trimmer Procedure Name Priority Date/Time Associated Diagnosis Comments POCT URINALYSIS DIPSTICK Routine 01/15/2025 9:01 AM EDT Third trimester ([facility]) US OB BPP W NON-STRESS 01/08/2025 12:44 PM EDT US OB BPP W NON-STRESS 01/04/2025 10:27 AM EDT POCT URINALYSIS DIPSTICK Routine 01/02/2025 8:29 AM EDT Third trimester ([facility]) POCT URINALYSIS DIPSTICK Routine 12/19/2024 9:06 AM EDT 30 weeks gestation of ([facility]) Third trimester ([facility]) US OB FOLLOW UP TRANSABDOMINAL APPROACH Routine 12/19/2024 8:25 AM EDT size inconsistent with dates ([facility]) GLUCOSE TOLERANCE 3 HOUR Routine 11/28/2024 6:41 AM EDT POCT URINALYSIS DIPSTICK Routine 11/22/2024 8:57 AM EDT 26 weeks gestation of ([facility]) Second trimester ([facility]) GLUCOSE 1 HOUR Routine 11/22/2024 7:47 AM EDT ALL CBC WITH AUTO DIFF Routine 7:47 AM EDT POCT URINALYSIS DIPSTICK Routine 10/26/2024 12:06 PM EDT Second trimester ([facility]) US OB 14+ WEEKS ANATOMY SCAN Routine 10/26/2024 11:56 AM EDT Screening, , for anatomic survey ([facility]) from Last 3 Months Results * (ABNORMAL) POCT urinalysis dipstick manually resulted (01/15/2025 9:01 AM EDT) Only the most recent of5 resultswithin the time period is included. Color, [...] OF CARE TEST ENTER/EDIT ORDERABLES Final Result * US OB BPP W NON-STRESS (01/08/2025 12:44 PM EDT) Only the most recent of2 resultswithin the time period is included. Anatomical Region Laterality Modality Other 01/08/2025 12:4 4 PM EDT Narrative 01/08/2025 12:46 [place] [address] Ultrasound Report Signed Patient: ALONDRA BEAVER MR#: [id number] : 1995 Acct:[id number] Age/Sex: 29 / F ADM Date: 01/08/25 Loc: US Attending Dr: Rocio Lozano D.O. Ordering Physician: Rocio Lozano D.O. Date of Service: 01/08/25 Procedure(s): US OB BPP w non-stress Accession Number(s): [id number] cc: Rocio Lozano D.O.; Zita Alanis M.D. [address] [address] Patient Name: ALONDRA BEAVER MRN: [id number] date: 1995 Sex: F Assigned Patient Location: US Current Patient Location[place] [facility] [place] Accession/Order Number: [id number] Exam Date: 01/08/2025 12:03 Report Date: 01/08/2025 12:44 At the request of: ROCIO LOZANO DO Procedure: US OB BPP w non-stress Biophysical profile. Reason for exam: Abnormal BPP. COMPARISON: 01/04/2025 TECHNIQUE: Transabdominal imaging of the gravid uterus was obtained. FINDINGS: The supervisor backfilling reports a BPP of 8 out of 8. ZULMA is normal at 14.8 cm. heart rate 135 bpm. US/US OB BPP w non-stress IMPRESSION: BPP 8 out of 8. Impression dictated by: Terry Puentes Jr., D.O. 01/08/2025 12:44 PM Dictation Location: [place] [address] Electronically authenticated by: [id number] Y Date: 01/08/2025 12:44 Dictated By: Terry Puentes M.D. Signed By: 01/08/25 1246 DD/ 1244 TD/TT: Assembler Convertible Top: Procedure Note Radiology, Radiologist, MD - 01/08/2025 [place] [address] Ultrasound Report Signed Patient: ALONDRA BEAVER NMR#: [id number] : 1995Acct:[id number] Age/Sex: 29 / FADM Date: 01/08/25 Loc: US Attending Dr: Rocio Lozano D.O. Ordering Physician: Rocio Lozano D.O. Date of Service: 01/08/25 Procedure(s): US OB BPP w non-stress Accession Number(s): [id number] cc: Rocio Lozano D.O.; Zita Alanis M.D. The [place] [address] Patient Name: ALONDRA BEAVER MRN: [id number] date: 1995 Sex: F Assigned Patient Location: US Current Patient Location: [facility] [place] Accession/Order Number: [id number] Exam Date: 01/08/2025 12:03 Report Date: 01/08/2025 12:44 At the request of: ROCIO LOZANO DO Procedure: US OB BPP w non-stress Biophysical profile. Reason for exam: Abnormal BPP. COMPARISON: 01/04/2025 TECHNIQUE: Transabdominal imaging of the gravid uterus was obtained. FINDINGS: The supervisor backfilling reports a BPP of 8 out of 8. ZULMA is normal at14.8 cm. heart rate 135 bpm. US/US OB BPP w non-stress IMPRESSION: BPP 8 out of 8. Impression dictated by: Terry Puentes Jr., D.O. 01/08/2025 12:44 PM Dictation Location: [facility] Electronically authenticated by: [id number] Y Date: 2:44 Dictated By: Terry Puentes M.D. Signed By:01/08/25 1246 DD/ 1244 TD/TT: Assembler Convertible Top: us Rocio Blake DO [facility] Final Result * US OB follow up [...] SIGNED BY: Terry Rodriguez MD us Rocio Blake DO IMG OB US PROCEDURES Final Resul t * GLUCOSE TOLERANCE 3 HOUR (11/28/2024 6:41 AM EDT) [facility] GLUCOSE TOLERANCE 3 HOUR mg/dL [facility] Comment: GLU FAST 93 (<95) Col: 11/28/24 0641 GLU 1HR 149 (<180) Col: 11/28/24 0743 GLU 2HR 118 (<155) Col: 11/28/24 0843 GLU 3HR 81 (<140) Col: 11/28/24 0942 11/28/2024 6:41 AM EDT 11/28/2024 6:49 AM EDT Narrative [facility] - 11/28/2024 10:14 AM EDT us Nadine DE JESUS LAB BLOOD ORDERABLES Final Resul t [facility] TB * (ABNORMAL) GLUCOSE 1 HOUR (11/22/2024 7:47 AM EDT) GLUCOSE 1 HOUR 149(H) <130 mg/dL TB 11/22/2024 7:47 AM EDT 11/22/2024 7:50 AM EDT Narrative [facility] - 11/22/2024 8:41 AM EDT us Rocio [...] us Rocio Blake DO [facility] Final Result [facility] * US OB 14+ weeks anatomy scan [...] II, MD, PHD at 27-Oct-2024 06:14:52 AM [facility] Procedure Note Leonidas Nicole MD - [...] LEONIDAS NICOLE II, MD, PHD 06:14:52 AM [facility] us Nadine DE JESUS IMG OB US PROCEDURES Final Resul t from Last 3 Months Additional Health Concerns Active Problems Noted Date Diagnosed Date OB Reminders 07/11/2024 Insurance [employer] Care Teams Epic Kaleidoscope Analyst Relationship Specialty Start Date End Date Unallocated, Noms Justina, [address] [place], [place] [id number] PCP - General Family Medicine 06/23/23
--- NOTE | 2025-01-18 07:02 | US_ITS ---
The [place] [address] Patient Name: ALONDRA BEAVER MRN: [id number] date: 1995 Sex: F Assigned Patient Location: [facility] Current Patient Location: Accession/Order Number: [id number] Exam Date: 01/18/2025 07:04 Report Date: 01/18/2025 08:45 At the request of: ROCIO VINES DO Procedure: US OB BPP w non-stress BIOPHYSICAL PROFILE: CLINICAL INFORMATION: ZULMA borderline low COMPARISON: 01/08/2025 There is a single live intrauterine gestation in cephalic presentation. The reported gestational age is 34 weeks 3 days. The heart rate measures 152 beats per minute. FINDINGS: TONE: 1 or more episodes of activity extension and flexion of extremity or opening and closing of the hand [Y] 2/2 GROSS BODY MOVEMENTS: 3 or more discrete body or limb movements [Y] 2/2 BREATHING MOVEMENTS: 1 or more episodes of breathing lasting at least 30 seconds [Y] 2/2 ZULMA: A single deepest vertical pocket of amniotic fluid greater than 2 cm [Y] 2/2 ZULMA: 12.1 cm. This is in low-normal range. Total score: 12/15 US/ OB BPP w non-stress IMPRESSION: NORMAL BIOPHYSICAL PROFILE Impression dictated by: Zita Lu M.D. 01/18/2025 8:45 AM Dictation Location: [place] Electronically authenticated by: [id number] Y Date: 01/18/2025 08:45
--- OUTSIDE RECORDS SUMMARY | 2025-01-18 07:02 | XMS_ITS | CCD ---
Author Organization [facility] Care Team Providers Care Gas Pumper Name Role Phone DR JANES GARCIA Admitting Unavailable JOSE, DR JANES Escobar Attending Unavailable REQUEST, NONE LISTED Primary Care Unavaila verna GARCIA, DR JANES Escobar Consulting Unavailable Lisandro Buitrago Unavailable DO Lisandro Buitrago Attending Provider Tyrell Stiles Unavailable Lisandro Buitrago Attending Unavailable Lisandro Buitrago Admitting Unavailable Unallocated MD, Noms Provider Primary Care Provi ulysses Zita Alanis Attending Unavailable Zita Alanis Primary Care Unavailable JOSÉ LOZANO Attending Unavailable NADINE GALVAN Attending Unavailable MADELEINE BUNDY Attending Unavailable BLAKE, JOSÉ Attending Unavailable NADINE GALVAN Attending Unavailable BLAKE, JOSÉ Attending Unavailable JOSÉ LOZANO Referring Unavailable NADINE GALVAN Attending Unavailable JOSÉ LOZANO Attending Unavailable KERA LI Attending Unavailable MADELEINE BUNDY Attending Unavailable Medications Current Medications Medication [...] 08/21/2024 08/29/2024 Discontinued 21 day ethinyl estradiol 0.225477 mg/hr / etonogestrel 0.005 mg/hr vaginal system [...] shoulder] Episodic Other and delivery including normal (18 sources) Normal ; Translations: [Encounter for supervision [...] [32 weeks gestation of ] 01-02-2025 Episodic Residual codes; unclassified (2 sources) Gestation period, 34 weeks; Translations: [34 weeks gestation of ] 01-15-2025 Episodic Sprains and strains (1 source) Strain [...] Range Facility Urinalysis macro (dipstick) panel (U)on 01-15-2025 Bilirubin, UA Negative Negative - 4(70) +++ mg/dL [facility] Blood, UA Negative Negative - 50 Mark/mcL [facility] Clarity, UA Clear [facility] Color, UA Yellow [facility] Glucose, UA Negative Negative - 1999(110) ++++ mg/dL [facility] Interpretation and review of laboratory results Abnormal [facility] Ketones, UA Negative Negative - 160(16) ++++ mg/dL [facility] Leukocytes, UA Positive Negative - 500+++ Mahsa/mcL [facility] Comment on above: 1+ Nitrite, UA Negative Negative - Positive [facility] pH, UA 6 5 - 9 [facility] Protein, UA Negative Negative - 1999(20) ++++ mg/dL [facility] Spec Grav, UA 1.02 1 - 1.03 [facility] Urobilinogen, UA 0.2 0.2 - 12 mg/dL [facility] Outside Recordson 01-09-2025 Outside Records [id number] 432#1.00[facility] Outside Records [id number] 16#1.00[facility] US OB BPP W NON-STRESS on 01-08-2025 [place] [address] Ultrasound Report Signed Patient: ALONDRA BEAVER MR#: [id number] : 1995 Acct:[id number] Age/Sex: 29 / F ADM Date: 01/08/25 Loc: US Attending Dr: José Lozano D.O. Ordering Physician: José Lozano D.O. Date of Service: 01/08/25 Procedure(s): US OB BPP w non-stress Accession Number(s): [id number] cc: José Lozano D.O.; Zita Alanis M.D. [address] [address] Patient Name: ALONDRA BEAVER MRN: [id number] date: 1995 Sex: F Assigned Patient Location: US Current Patient Location: [facility] Accession/Order Number: [id number] Exam Date: 01/08/2025 12:03 Report Date: 01/08/2025 12:44 At the request of: JOSÉ LOZANO DO Procedure: US OB BPP w non-stress Biophysical profile. Reason for exam: Abnormal BPP. COMPARISON: 01/04/2025 TECHNIQUE: Transabdominal imaging of the gravid uterus was obtained. FINDINGS: The order planner reports a BPP of 8 out of 8. ZULMA is normal at 14.8 cm. heart rate 135 bpm. US/US OB BPP w non-stress IMPRESSION: BPP 8 out of 8. Impression dictated by: Terry Puentes Jr., D.O. 01/08/2025 12:44 PM Dictation Location: [place] [address] Electronically authenticated by: [id number] Y Date: 01/08/2025 12:44 Dictated By: Terry Puentes M.D. Signed By: 01/08/25 1246 DD/ 1244 TD/TT: Commercial Real Estate Agent: [facility] Radiology, Radiologist, - 01/08/2025 [place] [address] Ultrasound Report Signed Patient: ALONDRA BEAVER MR#: [id number] : 1995 Acct:[id number] Age/Sex: 29 / F ADM Date: 01/08/25 Loc: US Attending Dr: José Lozano D.O. Ordering Physician: José Lozano D.O. Date of Service: 01/08/25 Procedure(s): US OB BPP w non-stress Accession Number(s): [id number] cc: José Lozano D.O.; Zita Alanis M.D. [place] [address] Patient Name: ALONDRA BEAVER MRN: [facility]:[id number] date: 1995 Sex: F Assigned Patient Location: US Current Patient Location: [facility] Accession/Order Number: [id number] Exam Date: 01/08/2025 12:03 Report Date: 01/08/2025 12:44 At the request of: JOSÉ LOZANO DO Procedure: US OB BPP w non-stress Biophysical profile. Reason for exam: Abnormal BPP. COMPARISON: 01/04/2025 TECHNIQUE: Transabdominal imaging of the gravid uterus was obtained. FINDINGS: The order planner reports a BPP of 8 out of 8. ZULMA is normal at 14.8 cm. heart rate 135 bpm. US/US OB BPP w non-stress IMPRESSION: BPP 8 out of 8. Impression dictated by: Terry Puetnes Jr., D.O. 01/08/2025 12:44 PM Dictation Location[facility] Electronically authenticated by: [id number] Y Date: 01/08/2025 12:44 Dictated By: Terry Puentes M.D. Signed By: 01/08/25 1246 DD/ 1244 TD/TT: Commercial Real Estate Agent: [facility] [employer] Radiology Study observation (narrative) [facility] US OB BPP W NON-STRESS Ordered By: Radiologist Radiology on 01-08-2025 [facility] [employer] Work Phone: US OB BPP W NON-STRESS on 01-04-2025 [place] [address] Ultrasound Report Signed Patient: ALONDRA BEAVER MR#: [id number] : 1995 Acct:[id number] Age/Sex: 29 / F ADM Date: 01/04/25 Loc: US Attending Dr: José Lozano D.O. Ordering Physician: José Lozano D.O. Date of Service: 01/04/25 Procedure(s): US OB BPP w non-stress Accession Number(s): [id number] cc: José Lozano D.O.; Zita Alanis M.D. [address] [address] Patient Name: ALONDRA BEAVER MRN: [id number] date: 1995 Sex: F Assigned Patient Location: [facility] Current Patient Location: Accession/Order Number: [id number] Exam Date: 01/04/2025 07:10 Report Date: 01/04/2025 10:27 At the request of: JOSÉ LOZANO DO Procedure: US OB BPP w non-stress BIOPHYSICAL PROFILE: CLINICAL INFORMATION: ZULMA BORDERLINE LOW O28.8 COMPARISON: None There is a single live intrauterine gestation in cephalic presentation. The reported gestational age is 32 weeks 3 days. The heart rate [id number] beats per minute. FINDINGS: TONE: 1 or [...] Lu M.D. 01/04/2025 10:27 AM Dictation Location: [place] [address] Electronically authenticated by: [id number] Y Date: 01/04/2025 10:27 Dictated By: Zita Lu M.D. Signed By: 01/04/25 1030 DD/ 1027 TD/TT: Commercial Real Estate Agent: [facility] Radiology, Radiologist, - 01/04/2025 [place] [address] Ultrasound Report Signed Patient: ALONDRA BEAVER MR#: [id number] : 1995 Acct:[id number] Age/Sex: 29 / F ADM Date: 01/04/25 Loc: US Attending Dr: José Lozano D.O. Ordering Physician: José Lozano D.O. Date of Service: 01/04/25 Procedure(s): US OB BPP w non-stress Accession Number(s): [id number] cc: José Lozano D.O.; Zita Alanis M.D. [place] [address] Patient Name: ALONDRA BEAVER MRN: [id number] date: 1995 Sex: F Assigned Patient Location: [facility] Current Patient Location: Accession/Order Number: [id number] Exam Date: 01/04/2025 07:10 Report Date: 01/04/2025 10:27 At the request of: JOSÉ LOZANO DO Procedure: US OB BPP w non-stress BIOPHYSICAL PROFILE: CLINICAL INFORMATION: ZULMA BORDERLINE LOW O28.8 COMPARISON: None There is a single live intrauterine gestation in cephalic presentation. The reported gestational age is 32 weeks 3 days. The heart rate [id number] beats per minute. FINDINGS: TONE: 1 or [...] Lu M.D. 01/04/2025 10:27 AM Dictation Location: [place] [address] Electronically authenticated by: [id number] Y Date: 01/04/2025 10:27 Dictated By: Zita Lu M.D. Signed By: 01/04/25 1030 DD/ 1027 TD/TT: Commercial Real Estate Agent: [facility] Radiology Study observation (narrative) [facility] OB BPP W NON-STRESS Ordered By: Radiologist Radiology on 01-04-2025 [facility] Work Phone: Urinalysis macro (dipstick) panel (U)on 01-02-2025 Bilirubin, UA Negative Negative - 4(70) +++ mg/dL [facility] Blood, UA Negative Negative - 50 Mark/mcL [facility] Clarity, UA Clear [facility] Color, UA Yellow [facility] Glucose, UA Negative Negative - 1999(110) ++++ mg/dL [facility] Interpretation and review of laboratory results Abnormal [facility] Ketones, UA Negative Negative - 160(16) ++++ mg/dL [facility] Leukocytes, UA Positive Negative - 500+++ Mahsa/mcL [facility] Comment on above: Trace Nitrite, UA Negative Negative - Positive [facility] pH, UA 6.5 5 - 9 [facility] Protein, UA Negative Negative - 2000(20) ++++ mg/dL [facility] Spec Grav, UA 1.015 1 - 1.03 [facility] Urobilinogen, UA 0.2 0.2 - [...] UA Negative Negative - 4(70) +++ mg/dL [facility] Blood, UA Negative Negative - 50 Mark/mcL [facility] Clarity, UA Clear [facility] Color, UA Yellow [facility] Glucose, UA Negative Negative - 2000(110) ++++ mg/dL [facility] Interpretation and review of laboratory results Abnormal [facility] Ketones, UA Negative Negative - 160(16) ++++ mg/dL [facility] Leukocytes, UA 3+ Negative - 500+++ Mahsa/mcL [facility] pH, UA 6 5 - 9 [facility] Protein, UA Negative Negative - 2000(20) ++++ mg/dL [facility] Spec Grav, UA 1.015 1 - 1.03 [facility] Urobilinogen, UA 0.2 0.2 - 12 mg/dL [facility] GLUCOSE TOLERANCE 3 HOURon 0 11-28-2024 GLUCOSE TOLERANCE 3 HOUR mg/dL [facility] Comment on above: GLU FAST 93 (<95) Co l: 11/28/24 0641 GLU 1HR 149 (<180) Col: 11/28/24 0743 GLU 2HR 118 (<155) Col: 11/28/24 0843 GLU 3HR 81 (<140) Col: 11/28/24 0942 [facility] ALL CBC WITH AUTO DIFFon BASOPHILS ABSOLUTE AUTO 0 [facility] Basophils/100 WBC (Bld) 0.4 % 0.2 - 2.0 % [facility] Eosinophils/100 WBC (Bld) 1.2 % 0.9 - 7.0 % [facility] Erythrocyte distribution width (RBC) [Ratio] 13 % 11.0 - 15.0 % [facility] Hematocrit (Bld) [Volume fraction] 35.6 % Low 36.0 - 48.0 % [facility] Hemoglobin (Bld) [Mass/Vol] 11.9 g/dL Low 12.0 - 16.0 g/dL [facility] IMMATURE GRANULOCYTES ABS AUTO 0.13 High [facility] Immature granulocytes/100 WBC (Bld) 1.2 % High 0.0 - 0.5 % [facility] Interpretation and review of laboratory results Abnormal [facility] LYMPHOCYTES ABSOLUTE AUTO 1.3 [facility] Lymphocytes/100 WBC (Bld) 11.6 % Low 20.5 - 60.0 % [facility] MCH (RBC) [Entitic mass] 30.9 pg 26.7 - 34.0 pg [facility] MCHC (RBC) [Mass/Vol] 33.4 g/dL 29.9 - 35.2 g/dL [facility] MCV (RBC) [Entitic vol] 92.5 fL 81.0 - 99.0 fL [facility] MONOCYTES ABSOLUTE AUTO 0.5 [facility] Monocytes/100 WBC (Bld) 4.9 % 1.7 - 12.0 % [facility] NEUTROPHILS ABSOLUTE AUTO 8.8 High [facility] Neutrophils/100 WBC (Bld) 80.7 % High 43.0 - 75.0 % [facility] Platelet mean volume (Bld) [Entitic vol] 10.5 fL 9.5 - 13.5 fL [facility] TBH EO # 0.1 [facility] PLT 198 [facility] RBC 3.85 Low [facility] WBC 10.9 [facility] Urinalysis macro (dipstick) panel (U)on 11-22-2024 Bilirubin, UA Negative Negative - 4(70) +++ mg/dL [facility] Blood, UA Negative Negative - 50 Mark/mcL [facility] Clarity, UA Clear [facility] Color, UA Yellow [facility] Glucose, UA Negative Negative - 1999(110) ++++ mg/dL [facility] Interpretation and review of laboratory results Abnormal [facility] Ketones, UA Negative Negative - 160(16) ++++ mg/dL [facility] Leukocytes, UA Moderate Negative - 500+++ Mahsa/mcL [facility] Nitrite, UA Negative Negative - Positive [facility] pH, UA 6 5 - 9 [facility] Protein, UA Negative Negative - 1999(20) ++++ mg/dL [facility] Spec Grav, UA 1.01 1 - 1.03 [facility] Urobilinogen, UA 0.2 0.2 - 12 mg/dL [facility] Urinalysis macro (dipstick) panel (U)on 10-26-2024 Bilirubin, UA Negative Negative - 4(70) +++ mg/dL [facility] Blood, UA Negative Negative - 50 Mark/mcL [facility] Clarity, UA Clear [facility] Color, UA Yellow [facility] Glucose, UA Negative Negative - 1999(110) ++++ mg/dL [facility] Interpretation and review of laboratory results Normal [facility] Ketones, UA Negative Negative - 160(16) ++++ mg/dL [facility] Leukocytes, UA Negative Negative - 500+++ Mahsa/mcL [facility] Nitrite, UA Negative Negative - Positive [facility] pH, UA 6.5 5 - 9 [facility] Protein, UA Negative Negative - 1999(20) ++++ mg/dL [facility] Spec Grav, UA 1.02 1 - 1.03 [facility] Urobilinogen, UA 0.2 0.2 - [...] II, MD, PHD at 27-Oct-2024 06:14:52 AM [facility] Normal Not Available Comment on above: Order Comment: US OB ANATOMY SINGLE W US OB CERVICAL LENGTH Estimated Date of Delivery: 02/26/25 Gestational Age as of 09/28/2024: 18w3d BOX TESTon 08-29-2024 [facility] BOX [facility] Urinalysis macro (dipstick) panel (U)on 08-29-2024 Bilirubin, UA Negative Negative - 4(70) +++ mg/dL [facility] Blood, UA Negative Negative - 50 Mark/mcL [facility] Clarity, UA Clear [facility] Color, UA Yellow [facility] Glucose, UA Negative Negative - 2000(110) ++++ mg/dL [facility] Interpretation and review of laboratory results Normal [facility] Ketones, UA Negative Negative - 160(16) ++++ mg/dL [facility] Leukocytes, UA Negative Negative - 500+++ Mahsa/mcL [facility] Nitrite, UA Negative Negative - Positive [facility] pH, UA 6 5 - 9 [facility] Protein, UA Negative Negative - 2000(20) ++++ mg/dL [facility] Spec Grav, UA 1.02 1 - 1.03 [facility] Urobilinogen, UA 0.2 0.2 - 12 mg/dL [facility] HCG ( test) Ql (U)o n 08-10-2024 Interpretation and review of laboratory results Abnormal [facility] Preg Test, Ur Positive Negative [facility] US OB < 14 WEEKS EARLYon US [...] II, MD, PHD at 11-Aug-2024 08:40:37 AM [facility] Normal Not Available Comment on above: Order Comment: US OB Patient's last menstrual period was 05/09/2024 (exact date). Urinalysis macro (dipstick) panel (U)on 08-10-2024 Bilirubin, UA Negative Negative - 4(70) +++ mg/dL [facility] Blood, UA Negative Negative - 50 Mark/mcL [facility] Clarity, UA Clear [facility] Color, UA Yellow [facility] Glucose, UA Negative Negative - 2000(110) ++++ mg/dL [facility] Interpretation and review of laboratory results Abnormal [facility] Ketones, UA Positive Negative - 160(16) ++++ mg/dL [facility] Comment on above: 40 Leukocytes, UA Negative Negative - 500+++ Mahsa/mcL [facility] Nitrite, UA Negative Negative - Positive [facility] pH, UA 5.5 5 - 9 [facility] Protein, UA Negative Negative - 1999(20) ++++ mg/dL [facility] Spec Grav, UA 1.02 1 - 1.03 [facility] Urobilinogen, UA 0.2 0.2 - 12 mg/dL [facility] Outside Recordson 04-20-2024 Outside Records [id number] 763#1.00[facility] Outside Recordson 03-31-2024 Outside Records [id number] 6#1.00[facility] Consent Formson 02-18-2024 Consent Forms [id number] 3D#[address] [place] [address] Cytology Cervical or vaginal smear or scraping studyon 02-08-2024 [facility] HCG ( test) Ql (U)o n 02-08-2024 Interpretation and review of laboratory results Normal [facility] Preg Test, Ur Negative [facility] CMP Standardon 02-03-2024 eGFR Non AA >60 Invalid Interpretation Code [facility] Comment on above: Performed By: #### 1 [id number], [id number], 7859676, 6826982, 4895292, 8076650, 6350361 #### [facility] (DEFAULT) [address] [place] [address] eGFR AA >60 Invalid Interpretation Code [facility] Comment on above: Performed By: #### 1 [id number], [id number], 3240242, 7596283, 8668884, 1669657, 1413361 #### [facility] (DEFAULT) [address] [place] [address]13[address] Albumin [Mass/Vol] 4.4 g/dL Normal 3.5-5.[address] [facility] Comment on above: Performed By: #### 1 [id number], [id number], 7020929, 5645953, 6426048, 9363692, 7513125 #### [facility] (DEFAULT) [address] [place] [address]48[address] Albumin/Globulin [Mass ratio] 1.4 {ratio} Normal 1.4-2.6 [facility] Comment on above: Performed By: #### 1 [id number], [id number], 6168254, 2163436, 9906219, 8079008, 2262919 #### [facility] (DEFAULT) [address] [place] [address] 93210 Alk Phos 67 IU/L Normal 32-91 [facility] Comment on above: Performed By: #### 1 [id number], [id number], 6079215, 5960647, 9157407, 3195722, 4320091 #### [facility] (DEFAULT) [address] [place] [address]57 ALT [Catalytic activity/Vol] 19.0 U/L Normal 14.0-54.0 [facility] Comment on above: Performed By: #### 1 [id number], [id number], 6480780, 9439242, 0254566, 0199932, 9955672 #### [facility] (DEFAULT) [address] [place] [address]8610 Anion gap [Moles/Vol] 10.8 mmol/L Normal 5.0-19.0 [facility] Comment on above: Performed By: #### 1 [id number], [id number], 4894336, 5614504, 0040022, 7517609, 8441152 #### [facility] (DEFAULT) [address] [place] [address] 84474 AST [Catalytic activity/Vol] 21 U/L Normal 15-41 [facility] Comment on above: Performed By: #### 1 [id number], [id number], 1529754, 1083597, 4102651, 4863501, 3298118 #### [facility] (DEFAULT) [address] [place] [address]31 Bili Total 0.7 mg/dL Normal 0.3-1.2 [facility] Comment on above: Performed By: #### 1 [id number], [id number], 4300784, 3336064, 5735045, 5475917, 8765135 #### [facility] (DEFAULT) [address] [place] [address] 39984 Calcium [Mass/Vol] 8.9 mg/dL Normal 8.9-10.[address] [facility] Comment on above: Performed By: #### 1 [id number], [id number], 9920294, 7710706, 0476210, 0145080, 7934019 #### [facility] (DEFAULT) [address] [place] [address] 41469 Chloride [Moles/Vol] 100 mmol/L Low 101-111 [facility] Comment on above: Performed By: #### 1 [id number], [id number], 1858035, 0992843, 5742313, 1317976, 2256144 #### [facility] (DEFAULT) [address] [place] [address] 24972 CO2 [Moles/Vol] 26 mmol/L Normal 21-32 [facility] Comment on above: Performed By: #### 1 [id number], 9938981656, 9792613, 4871974, 5437965, 2484854, 2932444 #### [facility] (DEFAULT) [address] [place] [address] Creatinine [Mass/Vol] 0.86 mg/dL Normal 0.60-1.30 [facility] Comment on above: Performed By: #### 1 [id number], 7448215271, 1801507, 6165028, 1196754, 8701335, 8340767 #### [facility] (DEFAULT) [address] [place] [address] 80928 Globulin (S) [Mass/Vol] 3.1 g/dL Normal 1.5-4.3 [facility] Comment on above: Performed By: #### 1 [id number], 0808734600, 5400789, 4144881, 0214705, 9128917, 0226781 #### [facility] (DEFAULT) [address] [place] [address] Glucose [Mass/Vol] 90.0 mg/dL Normal 74.0-118.[address] [facility] Comment on above: Performed By: #### 1 [id number], 9239070671, 6505536, 9162376, 7201613, 7353290, 9941461 #### [facility] (DEFAULT) [address] [place] [address] 34082 Osmolality 267 mOsm/L Invalid Interpretation Code [facility] Comment on above: Performed By: #### 1 [id number], [id number], 9315837, 5476844, 6208927, 1798603, 5631575 #### [facility] (DEFAULT) [address] [place] [address] 49992 Potassium [Moles/Vol] 3.8 mmol/L Normal 3.6-5.1 [facility] Comment on above: Performed By: #### 1 [id number], 3891029810, 9412808, 4686690, 8022154, 9627645, 1281493 #### [facility] (DEFAULT) [address] [place] [address] 75688 Protein [Mass/Vol] 7.5 g/dL Normal 6.5-8.[address] [facility] Comment on above: Performed By: #### 1 [id number], 2373207064, 8964306, 1155181, 2180869, 6101471, 2167982 #### [facility] (DEFAULT) [address] [place] [address] 04610 Sodium [Moles/Vol] 133.0 mmol/L Low 136.0-144.0 [facility] Comment on above: Performed By: #### 1 [id number], 8103511887, 4760789, 1362408, 9688464, 7272668, 9522688 #### [facility] (DEFAULT) [address] [place] [address] 49907 Urea nitrogen [Mass/Vol] 17 mg/dL Normal 8-26 [facility] Comment on above: Performed By: #### 1 [id number], 4708228668, 0187140, 2433576, 9046201, 8130380, 5330898 #### [facility] (DEFAULT) [address] [place] [address] Urea nitrogen/Creatinine [Mass ratio] 19.7 mg/mg High 4.6-16.2 [facility] Comment on above: Performed By: #### 1 [id number], [id number], 2794733, 7568197, 7536208, 3100829, 4228298 #### [facility] (DEFAULT) [address] [place] [address] GGTon 02-03-2024 Gamma glutamyl transferase [Catalytic activity/Vol] 20.0 U/L Normal 7.0-50.0 [facility] Comment on above: Performed By: #### 1 [id number], 9036461658, 3709229, [id number], [id number], [id number], [id number] #### [facility] (DEFAULT) [address] [place] [address] Iron Levelon 02-03-2024 Iron [Mass/Vol] 93.0 ug/dL Normal 28.0-170.0 [facility] Comment on above: Performed By: #### 1 [id number], [id number], [id number], [id number], [id number], 4386457, [id number] #### [facility] (DEFAULT) [address] [place] [address] 29875 LDHon 02-03-2024 LDH 126.0 IU/L Normal 98.0-192.0 [facility] Comment on above: Performed By: #### 1 [id number], [id number], [id number], [id number], 7728243, 4299270, [id number] #### [facility] (DEFAULT) [address] [place] [address] 18416 Lipid Panel Standardon 02-02 Cholesterol [Mass/Vol] 214.0 mg/dL High 66.0-200.0 [facility] Comment on above: Performed By: #### 1 [id number], [id number], [id number], 9395099, 5521595, 5819052, [id number] #### [facility] (DEFAULT) [address] [place] [address] 19546 Cholesterol in HDL [Mass/Vol] 64 mg/dL Normal 40-71 [facility] Comment on above: Performed By: #### 1 [id number], [id number], [id number], 8839639, 2358217, 2910791, 9940196 #### [facility] (DEFAULT) [address] [place] [address] 68956 Cholesterol in LDL [Mass/Vol] 144 mg/dL High 1-100 [facility] Comment on above: Performed By: #### 1 [id number], [id number], [id number], 6626448, 7665548, 3010384, 8459980 #### [facility] (DEFAULT) [address] [place] [address] 21793 Cholesterol.total/C holesterol in HDL [Mass ratio] 3.3 {ratio} Normal 0.0-4.5 [facility] Comment on above: Performed By: #### 1 [id number], [id number], 4589691, 5988640, 7230562, 7556737, 9346071 #### [facility] (DEFAULT) [address] [place] [address] 46565 Triglyceride [Mass/Vol] 28.0 mg/dL Normal 0.0-150.0 [facility] Comment on above: Performed By: #### 1 [id number], [id number], [id number], 0338276, 2139633, 7698250, 9937432 #### [facility] (DEFAULT) [address] [place] [address] 08694 VLDL. 6 mg/dL Normal 5-40 [facility] Comment on above: Performed By: #### 1 [id number], [id number], 1101605, 5397567, 6586548, 5694550, 0992256 #### [facility] (DEFAULT) [address] [place] [address] 19321 Phoson 02-03-2024 Phosphate [Mass/Vol] 2.9 mg/dL Normal 2.5-4.6 [facility] Comment on above: Performed By: #### 1 [id number], [id number], [id number], 8129890, 5126566, 3928919, 6880192 #### [facility] (DEFAULT) [address] [place] [address] Uric Acidon 02-03-2024 Urate [Mass/Vol] 4.0 mg/dL Normal 2.6-8.0 [facility] Comment on above: Performed By: #### 1 [id number], [id number], [id number], 9469688, 1149059, 0870432, 0480516 #### [facility] (DEFAULT) [address] [place] [address] XR chest 2V*on 03-02-2023 XR chest 2V* [facility] [place] [address] [place] [address] XRay Report Signed Patient: Alondra Sanches MR#: [id number] : 1995 Acct:[id number] Age/Sex: 27 / F ADM Date: 03/02/23 Loc: [facility] Room: Type: [facility] Attending Dr: Lisandro Buitrago DO Copies to: Lisandro Buitrago DO Ordering Provider: Lisandro Buitrago DO Date of Service: 03/02/23 XR/XR shoulder LT min 2V*: Left shoulder pain ([id number]) XR/XR chest 2V*: Left shoulder pain;Chest pain [...] Puentes Jr., D.OReese03/02/2023 4:13 PM Dictation Location: [place] [address] Transcribed By: [facility] 03/02/231612 Dictated By: Terry Puentes Jr, DO 03/02/231611 Signed By: 03/02/231612 Normal [facility] CBC W MANUAL DIFFon 07-29-19 22 ATYPICAL LYMPH # Normal [facility] Comment on above: Performed By: #### C GARRET #### [facility] [address] [place] [address] Dr. Susannah Hopkins ATYPICAL LYMPH % Normal [facility] Comment on above: Performed By: #### C ESDRASMAN #### [facility] [address] [place] [address] Dr. Susannah Hopkins BAND # 0.3 103/ul Normal 0.0-0.3 [facility] Comment on above: Performed By: #### C GARRET #### [facility] [address] [place] [address] Dr. Susannah Hopkins BAND % 2 % Normal 0-5 [facility] Comment on above: Performed By: #### C GARRET #### [facility] [address] [place] [address] Dr. Susannah Hopkins BASOM # 0.00 103/ul Normal 0.00-0.10 [facility] Comment on above: Performed By: #### C GARRET #### [facility] [address] [place] [address] Dr. Susannah Hopkins BASOM % 0.0 % Critically low 0.2-2.0 [facility] Comment on above: Performed By: #### C GARRET #### [facility] [address] [place] [address] Dr. Susannah Hopkins BLAST # Normal [facility] Comment on above: Performed By: #### C GARRET #### [facility] [address] [place] [address] Dr. Susannah Hopkins BLAST % Normal [facility] Comment on above: Performed By: #### C GARRET #### [facility] [address] [place] [address] Dr. Susannah Hopkins CORRECTED WBC Normal 4.0-11.0 [facility] Comment on above: Performed By: #### C GARRET #### [facility] [address] [place] [address] Dr. Susannah Hopkins EOS # 0.00 103/ul Normal 0.00-0.70 [facility] Comment on above: Performed By: #### C GARRET #### [facility] [address] [place] [address] [address] Susannah Hopkins EOS% 0.0 % Critically low 0.9-7.0 [facility] Comment on above: Performed By: #### C GARRET #### [facility] [address] [place] [address] [address] Susannah Hopkins HCT 46.0 % Normal 36.0-48.0 [facility] Comment on above: Performed By: #### C GARRET #### [facility] [address] [place] [address] [address] Susannah Hopkins HGB 15.7 g/dl Normal 12.0-16.0 [facility] Comment on above: Performed By: #### C GARRET #### [facility] [address] [place] [address] [address] Susannah Hopkins LYMPHM # 0.69 103/ul Critically low 1.20-3.80 [facility] Comment on above: Performed By: #### C GARRET #### [facility] [address] [place] [address] [address] Susannah Hopkins LYMPHM% 4.0 % Critically low 20.5-60.0 [facility] Comment on above: Performed By: #### C GARRET #### [facility] [address] [place] [address] [address] Susannah Hopkins MCH 30.1 pg Normal 26.7-34.0 [facility] Comment on above: Performed By: #### C GARRET #### [facility] [address] [place] [address] [address] Susannah Hopkins MCHC 34.1 g/dl Normal 29.9-35.2 [facility] Comment on above: Performed By: #### C GARRET #### [facility] [address] [place] [address] [address] Susannah Hopkins MCV 88.3 fL Normal 81.0-99.0 [facility] Comment on above: Performed By: #### C GARRET #### [facility] [address] [place] [address] [address] Susannah Hopkins METAMYELOCYTE # Normal [facility] Comment on above: Performed By: #### C GARRET #### [facility] [address] [place] [address] [address] Susannah Hopkins METAMYELOCYTE % Normal [facility] Comment on above: Performed By: #### C GARRET #### [facility] [address] [place] [address] [address] Susannah Hopkins MONOM# 1.20 103/ul Critically high 0.30-0.80 [facility] Comment on above: Performed By: #### C GARRET #### [facility] [address] [place] [address] [address] Susannah Hopkins MONOM% 7.0 % Normal 1.7-12.0 [facility] Comment on above: Performed By: #### C GARRET #### [facility] [address] [place] [address] Dr. Susannah Hopkins MPV 9.8 fL Normal 9.5-13.5 [facility] Comment on above: Performed By: #### C GARRET #### [facility] [address] [place] [address] Dr. Susannah Hopkins MYELOCYTE # Normal [facility] Comment on above: Performed By: #### C GARRET #### [facility] [address] [place] [address] Dr. Susannah Hopkins MYELOCYTE % Normal [facility] Comment on above: Performed By: #### C GARRET #### [facility] [address] [place] [address] Dr. Susannah Hopkins NRBC Normal [facility] Comment on above: Performed By: #### C GARRET #### [facility] [address] [place] [address] [address] Susannah Hopkins PLT 278 103/ul Normal 150-450 [facility] Comment on above: Performed By: #### C GARRET #### [facility] [address] [place] [address] [address] Susannah Hopkins RBC 5.21 106/ul Normal 4.20-5.40 [facility] Comment on above: Performed By: #### C GARRET #### [facility] [address] [place] [address] [address] Susannah Hopkins RDW 11.7 % Normal 11.0-15.0 [facility] Comment on above: Performed By: #### C GARRET #### [facility] [address] [place] [address] [address] Susannah Hopkins SEG # 14.96 103/ul Critically high 1.40-6.50 [facility] Comment on above: Performed By: #### C GARRET #### [facility] [address] [place] [address] [address] Susannah Hopkins SEG % 87.0 % Critically high 43.0-75.0 [facility] Comment on above: Performed By: #### C GARRET #### [facility] [address] [place] [address] Dr. Susannah Hopkins WBC 17.2 103/ul Critically high 4.0-11.0 [facility] Comment on above: Performed By: #### C GARRET #### [facility] [address] [place] [address] Dr. Susannah Hopkins INFLUENZA A AND B AGon 07-28 INFLUANE SEE BELOW Normal [facility] Comment on above: Result Comment: Nega tive for Flu A protein angiten. Infection due to Flu A cannot be ruled out. Flu A angiten in the sample may be below the detection limit of the test. Performed By: #### I NFLUAB #### [facility] [address] [place] [address] Dr. Susannah Hopkins INFLUBNEGH SEE BELOW Normal [facility] Comment on above: Result Comment: Nega tive for Flu B protein antigen. Infection due to Flu B cannot be ruled out. Flu B antigen in the sample may be below the detection limit of the test. Performed By: #### I NFLUAB #### [facility] [address] [place] [address] Dr. Susannah Hopkins INFLUENZA A AG Negative Normal NEGATIVE SEE COMMENT [facility] Comment on above: Performed By: #### I NFLUAB #### [facility] [address] [place] [address] Dr. Susannah Hopkins INFLUENZA B AG Negative Normal NEGATIVE SEE COMMENT [facility] Comment on above: Performed By: #### I NFLUAB #### [facility] [address] [place] [address] Dr. Susannah Hopkins INTERNAL CONTROLS Within Normal Limits Normal Within Normal Limits [facility] Comment on above: Performed By: #### I NFLUAB #### [facility] [address] [place] [address] [address] Susannah Hpokins PREG HCG QUALon 07-28-2021 , QUAL Negative Normal NEGATIVE [facility] Comment on above: Performed By: #### P REG #### [facility] [address] [place] [address] Dr. Susannah Hopkins PROF 14(COMP METB)on 022 Albumin [Mass/Vol] 4.4 g/dL Normal 3.4-5.0 [facility] Comment on above: Performed By: #### C MP #### [facility] [address] [place] [address] Dr. Susannah Hopkins Albumin/Globulin [Mass ratio] 1.1 {ratio} Normal [facility] Comment on above: Performed By: #### C MP #### [facility] [address] [place] [address] Dr. Susannah Hopkins ALP [Catalytic activity/Vol] 71 U/L Normal 46-116 [facility] Comment on above: Performed By: #### C MP #### [facility] [address] [place] [address] Dr. Susannah Hopkins ALT [Catalytic activity/Vol] 19 U/L Normal 14-59 [facility] Comment on above: Performed By: #### C MP #### [facility] [address] [place] [address] Dr. Susannah Hopkins Anion gap [Moles/Vol] 15.1 mmol/L Normal [facility] Comment on above: Performed By: #### C MP #### [facility] [address] [place] [address] Dr. Susannah Hopkins AST [Catalytic activity/Vol] 23 U/L Normal 15-37 [facility] Comment on above: Performed By: #### C MP #### [facility] [address] [place] [address] [address] Susannah Hopkins Bilirubin [Mass/Vol] 0.9 mg/dL Normal 0.2-1.3 [facility] Comment on above: Performed By: #### C MP #### [facility] [address] [place] [address] [address] Susannah Hopkins Calcium [Mass/Vol] 9.5 mg/dL Normal 8.5-10.1 [facility] Comment on above: Performed By: #### C MP #### [facility] [address] [place] [address] Dr. Susannah Hopkins Chloride [Moles/Vol] 101 mmol/L Normal 98-107 [facility] Comment on above: Performed By: #### C MP #### [facility] [address] [place] [address] [address] Susannah Hopkins CO2 [Moles/Vol] 23.8 mmol/L Normal 22.0-30.0 [facility] Comment on above: Performed By: #### C MP #### [facility] [address] [place] [address] Dr. Susannah Hopkins Creatinine [Mass/Vol] 1.04 mg/dL Normal 0.52-1.04 [facility] Comment on above: Performed By: #### C MP #### [facility] [address] [place] [address] [address] Susannah Hopkins EGFR-AF MALDIVIAN >60 Normal >=60 [facility] Comment on above: Performed By: #### C MP #### [facility] [address] [place] [address] [address] Susannah Hopkins EGFR-NON AF MALDIVIAN >60 Normal >=60 [facility] Comment on above: Performed By: #### C MP #### [facility] [address] [place] [address] Dr. Susannah Hopkins Globulin (S) [Mass/Vol] 3.9 g/dL Normal [facility] Comment on above: Performed By: #### C MP #### [facility] [address] [place] [address] [address] Susannah Hpokins Glucose [Mass/Vol] 157 mg/dL Critically high 74-106 [facility] Comment on above: Performed By: #### C MP #### [facility] [address] [place] [address] [address] Susannah Hopkins Potassium [Moles/Vol] 3.9 mmol/L Normal 3.4-5.0 [facility] Comment on above: Performed By: #### C MP #### [facility] [address] [place] [address] [address] Susannah Hopkins Protein [Mass/Vol] 8.3 g/dL Critically high 6.1-8.2 [facility] Comment on above: Performed By: #### C MP #### [facility] [address] [place] [address] [address] Susannah Hopkins Sodium [Moles/Vol] 136 mmol/L Critically low 137-145 [facility] Comment on above: Performed By: #### C MP #### [facility] [address] [place] [address] [address] Susannah Hopkins Urea nitrogen [Mass/Vol] 20.0 mg/dL Critically high 7.0-18.0 [facility] Comment on above: Performed By: #### C MP #### [facility] [address] [place] [address] [address] Susannah Hopkins Urea nitrogen/Creatinine [Mass ratio] 19.2 mg/mg Normal [facility] Comment on above: Performed By: #### C MP #### [facility] [address] [place] [address] [address] Susannah Hopkins Vital Signs Date Time Vital Sign Value Performing Clinician Facility 01-15-2025 09:07-0400 Diastolic blood pressure 72 mm[Hg] Kera Li [employer] Work Phone: [facility] 01-15-2025 09:07-0400 Systolic blood pressure 132 mm[Hg] Kera Li [employer] Work Phone: [facility] 01-15-2025 09:06-0400 Body mass index (BMI) [Ratio] 29.85 kg/m2 Kera Jen [employer] Work Phone: [facility] 01-15-2025 09:06-0400 Body weight 76.43 kg Kera Jen [employer] Work Phone: [facility] 01-02-2025 08:26-0400 Body mass index (BMI) [Ratio] 28.96 kg/m2 José Blake DO Work Phone: [facility] 01-02-2025 08:26-0400 Body weight 74.16 kg José Blake DO Work Phone: [facility] 01-02-2025 08:26-0400 Diastolic blood pressure 76 mm[Hg] José Blake DO Work Phone: [facility] 01-02-2025 08:26-0400 Systolic blood pressure 120 mm[Hg] José Blake DO Work Phone: [facility] 12-19-2024 09:04-0400 Body mass index (BMI) [Ratio] 28.7 kg/m2 Nadine DE JESUS Work Phone: [facility] 12-19-2024 09:04-0400 Body weight 73.48 kg Nadine Galvan PA Work Phone: [facility] 12-19-2024 09:04-0400 Diastolic blood pressure 78 mm[Hg] Nadine Galvan PA Work Phone: [facility] 12-19-2024 09:04-0400 Systolic blood pressure 104 mm[Hg] Nadine Galvan PA Work Phone: [facility] 12-05-2024 09:23-0400 Body mass index (BMI) [Ratio] 28.52 kg/m2 José Blake DO Work Phone: [facility] 12-05-2024 09:23-0400 Body weight 73.03 kg José Blake DO Work Phone: [facility] 12-05-2024 09:23-0400 Diastolic blood pressure 76 mm[Hg] José Blake DO Work Phone: [facility] 12-05-2024 09:23-0400 Systolic blood pressure 120 mm[Hg] José Blake DO Work Phone: [facility] 11-22-2024 08:52-0400 Body mass index (BMI) [Ratio] 28.19 kg/m2 Nadine Galvan PA Work Phone: [facility] 11-22-2024 08:52-0400 Body weight 72.18 kg Nadine Galileo PA Work Phone: [facility] 11-22-2024 08:52-0400 Diastolic blood pressure 76 mm[Hg] Nadine Galvan PA Work Phone: [facility] 11-22-2024 08:52-0400 Systolic blood pressure 120 mm[Hg] Nadine Galvan PA Work Phone: [facility] 10-26-2024 12:05-0400 Body mass index (BMI) [Ratio] 26.93 kg/m2 José Blake DO Work Phone: [facility] 10-26-2024 12:05-0400 Body weight 68.95 kg José Blake DO Work Phone: [facility] 10-26-2024 12:05-0400 Diastolic blood pressure 68 mm[Hg] José Blake DO Work Phone: [facility] 10-26-2024 12:05-0400 Systolic blood pressure 120 mm[Hg] José Blake DO Work Phone: [facility] 08-29-2024 14:34-0400 Body mass index (BMI) [Ratio] 25.65 kg/m2 José Blake DO Work Phone: [facility] 08-29-2024 14:34-0400 Body weight 65.68 kg José Blake DO Work Phone: [facility] 08-29-2024 14:34-0400 Diastolic blood pressure 72 mm[Hg] José Blake DO Work Phone: [facility] 08-29-2024 14:34-0400 Systolic blood pressure 120 mm[Hg] José Blake DO Work Phone: [facility] 08-10-2024 14:55-0400 Body height 160 cm [facility] 08-10-2024 14:55-0400 Body mass index (BMI) [Ratio] 25.18 kg/m2 [facility] 08-10-2024 14:55-0400 Body weight 64.47 kg [facility] 08-10-2024 14:55-0400 Diastolic blood pressure 76 mm[Hg] [facility] 08-10-2024 14:55-0400 Systolic blood pressure 120 mm[Hg] [facility] 05-16-2024 12:44-0500 Body weight 65.32 kg Madeleine Bundy MD Work Phone: [facility] 05-16-2024 12:44-0500 Diastolic blood pressure 78 mm[Hg] Madeleine Bundy MD Work Phone: [facility] 05-16-2024 12:44-0500 Systolic blood pressure 120 mm[Hg] Madeleine Bundy MD Work Phone: [facility] 02-08-2024 15:08-0400 Body weight 66.22 kg Madeleine Bundy MD Work Phone: [facility] 02-08-2024 15:08-0400 Diastolic blood pressure 68 mm[Hg] Madeleine Bundy MD Work Phone: [facility] 02-08-2024 15:08-0400 Systolic blood pressure 130 mm[Hg] Madeleine Bundy MD Work Phone: [facility] 05-12-2023 07:30-0500 Body height 158.75 cm Tyrell Stiles Other [facility] Other 05-12-2023 07:30-0500 Body mass index (BMI) [Ratio] 25.41 kg/m2 Tyrell Stiles Other [facility] Other 05-12-2023 07:30-0500 Body weight 64.05 kg Tyrell Stiles Other [facility] Other 05-12-2023 07:30-0500 Diastolic blood pressure 78 mm[Hg] Tyrell Stiles Other [facility] Other 05-12-2023 07:30-0500 Respiratory rate 16 /min Tyrell Linsey Other [facility] Other 05-12-2023 07:30-0500 SaO2% (BldA) [Mass fraction] 98 % Tyrell Stiles Other [facility] Other 05-12-2023 07:30-0500 Systolic blood pressure 122 mm[Hg] Tyrell Stiles Other [facility] Other 02-24-2023 12:30-0400 Body height 158.75 cm Lisandro Etherstackapurva Other [facility] Other 02-24-2023 12:30-0400 Body mass index (BMI) [Ratio] 25.2 kg/m2 Lisandro [employer] Other [facility] Other 02-24-2023 12:30-0400 Body weight 63.5 kg Lisandro [employer] Other [facility] Other 02-24-2023 12:30-0400 Diastolic blood pressure 85 mm[Hg] Lisandro [employer] Other [facility] Other 02-24-2023 12:30-0400 Respiratory rate 16 /min Lisandro [employer] Other [facility] Other 02-24-2023 12:30-0400 SaO2% (BldA) [Mass fraction] 99 % Lisandro Buitrago Other [facility] Other 02-24-2023 12:30-0400 Systolic blood pressure 140 mm[Hg] Lisandroteri Martínezapurva Other [facility] Other Encounters Encounter Date Encounter Type Care Provider Facility Start: 01-15-2025 End: 01-15-2025 Bamboo flowsheet Kera Li [employer] LEAD Work Phone: [facility] Start: 01-15-2025 End: 01-15-2025 Bamboo flowsheet Kera Li [employer]ING TE[employer] LEAD Work Phone: [facility] Start: 01-15-2025 End: 01-15-2025 flow sheet Kera Li [employer]ING TE[employer] LEAD Work Phone: [facility] Comment on above: Third trimester preg lindsey ([facility]); 34 weeks gestation of ([facility]) Start: 01-15-2025 End: 01-15-2025 ambulatory KERA LI Not Available Start: 01-08-2025 End: 01-08-2025 Clinisync Result Encounter José Blake DO Work Phone: [facility] Unsolicited Start: 01-08-2025 End: 01-08-2025 Clinisync Result Encounter José Blake DO Work Phone: [facility] Unsolicited Start: 01-04-2025 End: 01-04-2025 Clinisync Result Encounter José Blake DO Work Phone: [facility] Unsolicited Start: 01-04-2025 End: 01-04-2025 Clinisync Result Encounter José Blake DO Work Phone: [facility] Unsolicited Start: 01-02-2025 End: 01-02-2025 Bamboo flowsheet José Blake DO Work Phone: [facility] Start: 01-02-2025 End: 01-02-2025 Bamboo flowsheet José Blake DO Work Phone: [facility] Start: 01-02-2025 End: 01-02-2025 flow sheet José Blake DO Work Phone: [facility] Comment on above: Third trimester preg lindsey ([facility] 32 weeks gestation of ([facility] [facility]); ZULMA (amniotic fluid index) borderline low Start: 01-02-2025 End: 01-02-2025 ambulatory JOSÉ BLAKE Not Available Start: 12-19-2024 End: 12-19-2024 flow sheet Nadine DE JESUS Work Phone: [facility] Comment on above: 30 weeks gestation o f ([facility]); Third trimester ([facility]); HSV infection Start: 12-19-2024 End: 12-19-2024 ambulatory NADINE GALVAN Not Available Start: 12-05-2024 End: 12-05-2024 Bamboo flowsheet José Blake DO Work Phone: [facility] Start: 12-05-2024 End: 12-05-2024 Bamboo flowsheet José Blake DO Work Phone: [facility] Start: 12-05-2024 End: 12-05-2024 flow sheet José Blake DO Work Phone: [facility] Comment on above: Third trimester preg lindsey ([facility]); 28 weeks gestation of ([facility]); HSV infection; size inconsistent with dates ([facility]) Start: 12-05-2024 End: 12-05-2024 ambulatory JOSÉ BLAKE Not Available Start: 11-28-2024 End: 11-28-2024 Clinisync Result Encounter Nadine DE JESUS Work Phone: [facility] External Department Unsolicited Start: 11-28-2024 End: 11-28-2024 Clinisync Result Encounter Nadine DE JESUS Work Phone: [facility] External Department Unsolicited Start: 11-22-2024 End: 11-22-2024 Clinisync Result Encounter José Blake DO Work Phone: [facility] External Department Unsolicited Start: 11-22-2024 End: 11-22-2024 Clinisync Result Encounter José Blake DO Work Phone: [facility] External Department Unsolicited Start: 11-22-2024 End: 11-22-2024 flow sheet Nadine DE JESUS Work Phone: [facility] Comment on above: 26 weeks gestation o f ([facility]); Second trimester ([facility]); Elevated glucose tolerance test Start: 11-22-2024 End: 11-22-2024 ambulatory NADINE GALILEO Not Available Start: 10-26-2024 End: 10-26-2024 ambulatory JOSÉ BLAKE Not Available Start: 10-26-2024 End: 10-26-2024 flow sheet José Blake DO Work Phone: [facility] Comment on above: Second trimester pre gnancy ([facility]); 22 weeks gestation of ([facility]); Diabetes mellitus screening Start: 10-26-2024 End: 10-26-2024 ambulatory JOSÉ BLAKE Not Available Start: 09-28-2024 End: 09-28-2024 ambulatory NADINE GALILEO Not Available Start: 08-29-2024 End: 08-29-2024 flow sheet José Blake DO Work Phone: [facility] Comment on above: Second trimester pre gnancy; 14 weeks gestation of Start: 08-29-2024 End: 08-29-2024 Bamboo flowsheet José Blake DO Work Phone: [facility] Start: 08-29-2024 End: 08-29-2024 Bamboo flowsheet José Blake DO Work Phone: [facility] Start: 08-29-2024 End: 08-29-2024 Clinisync Result Encounter José Blake DO Work Phone: [facility] External Department Unsolicited Start: 08-29-2024 End: 08-29-2024 ambulatory JOSÉ BLAKE Not Available Start: 08-10-2024 End: 08-10-2024 Office outpatient visit 5 minutes [facility] Nurse [facility] Comment on above: GA: 11w3d Start: 08-10-2024 End: 08-10-2024 ambulatory JOSÉ BLAKE Not Available Start: 07-11-2024 End: 07-11-2024 flow sheet [facility] Nurse [facility] Comment on above: GA: 9w0d Start: 07-11-2024 End: 07-11-2024 ambulatory JOSÉ BLAKE Not Available Start: 05-16-2024 End: 05-16-2024 Office outpatient visit 15 minutes Madeleine Bundy MD Work Phone: [facility] Comment on above: Hormone imbalance (P rimary Dx); Amenorrhea; Missed menses; Family planning; Thyroid disorder screen Start: 05-16-2024 End: 05-16-2024 ambulatory MADELEINE BUNDY Not Available Start: 03-30-2024 End: 03-30-2024 ambulatory [facility] Facility:[facility] Start: 02-08-2024 End: 02-08-2024 Patient encounter status Madeleine Bundy MD Work Phone: [facility] Start: 02-08-2024 End: 02-08-2024 Periodic preventive med est patient 18-39 yrs Madeleine Bundy MD Work Phone: [facility] Comment on above: Amenorrhea (Primary Dx); Screening for malignant neoplasm of cervix; Encounter for gynecological examination without abnormal finding; Encounter for surveillance of vaginal ring hormonal contraceptive device; Missed menses Start: 02-08-2024 End: 02-08-2024 ambulatory MADELEINE BNUDY Not Available Start: 01-24-2024 End: 01-24-2024 ambulatory Facility:[facility] Start: 05-12-2023 End: 05-12-2023 ambulatory Tyrell Cuellarmer Other [facility] Other Start: 05-12-2023 Office outpatient vi sit [address] [facility] Start: 03-02-2023 End: 03-02-2023 ambulatory Lisandro Minna Facility:[facility] Start: 03-02-2023 End: 03-02-2023 ambulatory DO Lisandro Kuns Work Phone: [facility] Work Phone: Start: 03-02-2023 End: 03-02-2023 Patient encounter procedure DO Lisandro Kuns Work Phone: [facility] Start: 02-24-2023 End: 02-24-2023 ambulatory Lisandroteri Buitrago Other [facility] Other Start: 02-24-2023 Encounter for genera l adult medical examination without abnormal findings Lisandro Buitrago [facility] Start: 02-24-2023 Office outpatient ne w 30 minutes Lisandro Buitrago [facility] Start: 07-28-2021 End: 07-28-[address] JANES GARCIA Facility:H1 Procedures Date Procedure Procedure Detail Performing Clinician Start: 01-15-2025 Urnls dip stick/tabl et rgnt non-auto w/o micrscp Kera Li [employer] Work Phone: Start: 01-08-2025 US OB BPP W NON-STRESS José Blake DO Work Phone: Start: 01-04-2025 US OB BPP W NON-STRESS José Blake DO Work Phone: Start: 01-02-2025 Urnls dip stick/tabl et rgnt non-auto w/o micrscp José Blake DO Work Phone: Start: 12-19-2024 Urnls dip stick/tabl et rgnt non-auto w/o micrscp Nadine DE JESUS Work Phone: Start: 11-28-2024 GLUCOSE TOLERANCE 3 HOUR Nadine DE JESUS Work Phone: Start: 11-22-2024 Urnls dip stick/tabl et rgnt non-auto w/o micrscp Nadine DE JESUS Work Phone: Start: 11-22-2024 ALL CBC WITH AUTO DIFF José Blake DO Work Phone: Start: 10-26-2024 Urnls dip stick/tabl et rgnt non-auto w/o micrscp José Blake DO Work Phone: Start: 08-29-2024 Urnls dip stick/tabl et rgnt non-auto w/o micrscp José Blake DO Work Phone: Start: 08-29-2024 BOX TEST José Fazi o DO Work Phone: Start: 08-10-2024 Urnls dip stick/tabl et rgnt non-auto w/o micrscp José Blake DO Work Phone: Start: 02-08-2024 Urine test visual color cmprsn jovanis Madeleine Bundy MD Work Phone: Start: 02-08-2024 Cytp cerv/vag auto t hin layer prep mnl screen José Blake DO Work Phone: Start: 03-02-2023 Plain chest X-ray DO Br ett Newsy Work Phone: Start: 03-02-2023 Plain X-ray of left shoulder DO Lisandro Etherstackapurva Work Phone: Plan of Treatment Date Care Activity Detail Author Start: 01-29-2025 End: 01-29-2025 Patient encounter procedure 01/29/2025 8:30 AM EDT Routine [facility] [address] [place] [phone] José Lozano DO [address] [place] [address] [facility] Start: 01-16-2025 End: 01-16-2025 Patient encounter procedure 01/16/2025 8:50 AM EDT Routine [facility] [address] [place] [phone] Nadine Galvan PA [address] [place] [address] [facility] Start: 01-15-2025 End: 01-15-2025 Patient encounter procedure [facility] Comment on above: Arrived Start: 01-08-2025 Influenza vaccination [facility] Start: 01-02-2025 End: 07-05-2025 US biophysical profile w non stress test US biophysical profile w non stress test Imaging Routine ZULMA (amniotic fluid index) borderline low Expected: 01/02/2025 (Approximate), Expires: 07/05/2025 [facility] Work Phone: Comment on above: Expected: 01/02/2025 (Approximate), Expires: 07/05/2025 Start: 01-02-2025 End: 01-02-2025 Patient encounter procedure [facility] Comment on above: Arrived Start: 12-19-2024 End: 12-19-2024 Patient encounter procedure 12/19/2024 8:50 AM EDT Routine [facility] [address] [place] [phone] Nadine Galvan, PA [address] [place] [address] [facility] Start: 12-19-2024 End: 12-19-2024 Professional / ancillary services management 12/19/2024 8:00 AM EDT Ancillary Procedure [facility] [address] [place] [phone] [facility] Start: 12-05-2024 End: 04-07-2025 US for US OB follow up transabdominal approach Imaging Routine size inconsistent with dates ([facility]) Expected: 12/05/2024, Expires: 04/07/2025 [facility] Work Phone: Comment on above: Expected: 12/05/2024 , Expires: 04/07/2025 Start: 12-05-2024 End: 12-05-2024 Patient encounter procedure [facility] Comment on above: Arrived Start: 11-22-2024 End: 11-22-2025 Measurement of glucose 3 hours after glucose challenge for glucose tolerance test Glucose tolerance, 3 hours Lab Routine Elevated glucose tolerance test Expected: 11/22/2024 (Approximate), Expires: 11/22/2025 [facility] Work Phone: Comment on above: Expected: 11/22/2024 (Approximate), Expires: 11/22/2025 Start: 11-22-2024 End: 11-22-2024 Patient encounter procedure 11/22/2024 8:50 AM EDT Routine [facility] [address] [place] [phone] Nadine Galvan PA [address] [place] [address] [facility] Start: 10-26-2024 End: 10-26-2025 CBC panel - Blood by Automated count CBC Lab Routine Diabetes mellitus screening Expected: 10/26/2024 (Approximate), Expires: 10/26/2025 [facility] Work Phone: Comment on above: [...] PM EDT Routine [facility] [address] [place] [address] Nadine Galvan PA [address] [place] [address] [facility] Start: 08-29-2024 End: 08-29-2024 Patient encounter procedure [facility] Comment on above: Arrived Start: 07-27-2024 End: 07-27-2024 ambulatory 07/27/2024 10:30 AM EDT Initial [facility] [address] [place] [phone] Madeleine Bundy MD [address] [place] [address] [facility] Start: 07-17-2024 End: 07-17-2024 Patient encounter procedure 07/17/2024 12:30 PM EDT Office Visit [facility] [address] [place] [phone] Madeleine Bundy MD [address] [place] [address] [facility] Start: 07-17-2024 End: 07-17-2024 Professional / ancillary services management 07/17/2024 8:30 AM EDT Ancillary Procedure [facility] [address] [place] [phone] [facility] Start: 07-11-2024 End: 07-11-2025 Bacteria identified in Urine by Culture Urine culture Microbiology Routine Encounter for supervision of normal first in first trimester Expected: 07/11/2024, Expires: 07/11/2025 [facility] Comment on above: Expected: 07/11/2024 , Expires: 07/11/2025 Start: 07-11-2024 End: 07-11-2025 BEACON CARRIER SCREEN;14 GENES BEACON CARRIER SCREEN;14 GENES Lab Routine Screening for genetic disease carrier status Expected: 07/11/2024 (Approximate), Expires: 07/11/2025 [facility] Comment on above: Expected: 07/11/2024 (Approximate), Expires: 07/11/2025 Start: 07-11-2024 End: 07-11-2025 Blood type and Indirect antibody screen panel - Blood Type and screen Lab Routine Encounter for supervision of normal first in first trimester Expected: 07/11/2024, Expires: 07/11/2025 [facility] Comment on above: Expected: 07/11/2024 , Expires: 07/11/2025 Start: 07-11-2024 End: 07-11-2025 CBC W Auto Differential panel - Blood CBC and differential Lab Routine Encounter for supervision of normal first in first trimester Expected: 07/11/2024, Expires: 07/11/2025 [facility] Comment on above: Expected: 07/11/2024 , Expires: 07/11/2025 Start: 07-11-2024 End: 07-11-2025 DRUG SCREEN 17 W/CONF, UR DRUG SCREEN 17 W/CONF, UR Lab Routine Encounter for drug screening Expected: 07/11/2024, Expires: 07/11/2025 [facility] Comment on above: Expected: 07/11/2024 , Expires: 07/11/2025 Start: 07-11-2024 End: 07-11-2025 Hepatitis B virus surface Ag [Presence] in Serum or Plasma by Immunoassay Hepatitis B surface antigen Lab Routine Encounter for supervision of normal first in first trimester Expected: 07/11/2024, Expires: 07/11/2025 [facility] Comment on above: Expected: 07/11/2024 , Expires: 07/11/2025 Start: 07-11-2024 End: 07-11-2025 Hepatitis C virus Ab [Presence] in Serum or Plasma by Immunoassay Hepatitis C antibody Lab Routine Encounter for supervision of normal first in first trimester Expected: 07/11/2024, Expires: 07/11/2025 [facility] Comment on above: Expected: 07/11/2024 , Expires: 07/11/2025 Start: 07-11-2024 End: 07-11-2025 HIV-1/HIV-2 antigen/antibody combination immunoassay HIV-1 and HIV-2 antibodies Lab Routine Encounter for supervision of normal first in first trimester Expected: 07/11/2024, Expires: 07/11/2025 [facility] Comment on above: Expected: 07/11/2024 , Expires: 07/11/2025 Start: 07-11-2024 End: 07-11-2025 [id number] PLUS Core+SCA [id number] PLUS Core+SCA Lab Routine Encounter for screening for chromosomal anomalies Expected: 07/11/2024 (Approximate), Expires: 07/11/2025 [facility] Comment on above: Expected: 07/11/2024 (Approximate), Expires: 07/11/2025 Start: 07-11-2024 End: 07-11-2025 Reagin Ab [Presence] in Serum by RPR RPR Lab Routine Encounter for supervision of normal first in first trimester Expected: 07/11/2024, Expires: 07/11/2025 [facility] Comment on above: Expected: 07/11/2024 , Expires: 07/11/2025 Start: 07-11-2024 End: 07-11-2025 Rubella antibody, IgG Rubella antibody, IgG Lab Routine Encounter for supervision of normal first in first trimester Expected: 07/11/2024, Expires: 07/11/2025 [facility] Comment on above: Expected: 07/11/2024 , Expires: 07/11/2025 Start: 07-11-2024 End: 07-11-2025 Urinalysis complete panel - Urine Urinalysis with microscopic Lab Routine Encounter for supervision of normal first in first trimester Expected: 07/11/2024, Expires: 07/11/2025 [facility] Work Phone: Comment on above: Expected: 07/11/2024 , Expires: 07/11/2025 Start: 05-16-2024 End: 05-16-2025 Cortisol Cortisol Lab Routine Hormone imbalance Expected: 05/16/2024, Expires: 05/16/2025 [facility] Comment on above: Expected: 05/16/2024 , Expires: 05/16/2025 Start: 05-16-2024 End: 05-16-2025 DHEA-sulfate DHEA-sulfate Lab Routine Hormone imbalance Expected: 05/16/2024, Expires: 05/16/2025 [facility] Comment on above: Expected: 05/16/2024 , Expires: 05/16/2025 Start: 05-16-2024 End: 05-16-2025 Estradiol Estradiol Lab Routine Hormone imbalance Expected: 05/16/2024, Expires: 05/16/2025 [facility] Comment on above: Expected: 05/16/2024 , Expires: 05/16/2025 Start: 05-16-2024 End: 05-16-2025 Estrone Estrone Lab Routine Hormone imbalance Expected: 05/16/2024, Expires: 05/16/2025 [facility] Comment on above: Expected: 05/16/2024 , Expires: 05/16/2025 Start: 05-16-2024 End: 05-16-2025 Follicle stimulating hormone Follicle stimulating hormone Lab Routine Hormone imbalance Thyroid disorder screen Expected: 05/16/2024, Expires: 05/16/2025 [facility] Comment on above: Expected: 05/16/2024 , Expires: 05/16/2025 Start: 05-16-2024 End: 05-16-2025 Insulin, fasting Insulin, fasting Lab Routine Amenorrhea Missed menses Hormone imbalance Expected: 05/16/2024, Expires: 05/16/2025 [facility] Comment on above: Expected: 05/16/2024 , Expires: 05/16/2025 Start: 05-16-2024 End: 05-16-2025 Luteinizing hormone Luteinizing hormone Lab Routine Hormone imbalance Thyroid disorder screen Expected: 05/16/2024, Expires: 05/16/2025 [facility] Comment on above: Expected: 05/16/2024 , Expires: 05/16/2025 Start: 05-16-2024 End: 05-16-2025 Progesterone Progesterone Lab Routine Hormone imbalance Expected: 05/16/2024, Expires: 05/16/2025 [facility] Comment on above: Expected: 05/16/2024 , Expires: 05/16/2025 Start: 05-16-2024 End: 05-16-2025 Sex hormone binding globulin Sex hormone binding globulin Lab Routine Hormone imbalance Expected: 05/16/2024, Expires: 05/16/2025 [facility] Comment on above: Expected: 05/16/2024 , Expires: 05/16/2025 Start: 05-16-2024 End: 05-16-2025 Testosterone, free, total Testosterone, free, total Lab Routine Hormone imbalance Expected: 05/16/2024, Expires: 05/16/2025 [facility] Comment on above: Expected: 05/16/2024 , Expires: 05/16/2025 Start: 05-16-2024 End: 05-16-2025 Thyrotropin [Units/volume] in Serum or Plasma TSH Lab Routine Hormone imbalance Thyroid disorder screen Expected: 05/16/2024, Expires: 05/16/2025 [facility] Work Phone: Comment on above: Expected: 05/16/2024 , Expires: 05/16/2025 Start: 05-16-2024 End: 05-16-2025 Vitamin D 1,25 dihydroxy Vitamin D 1,25 dihydroxy Lab Routine Hormone imbalance Expected: 05/16/2024, Expires: 05/16/2025 [facility] Comment on above: Expected: 05/16/2024 , Expires: 05/16/2025 Start: 05-16-2024 End: 05-16-2024 Patient encounter procedure 05/16/2024 12:30 PM EST Office Visit [facility] [address] [place] [address] Madeleine Bundy MD [address] [place] [address] [facility] Start: 02-08-2024 End: 02-07-2025 Follicle stimulating hormone Follicle stimulating hormone Lab Routine Amenorrhea Expected: 02/08/2024 (Approximate), Expires: 02/07/2025 [facility] Comment on above: Expected: 02/08/2024 (Approximate), Expires: 02/07/2025 Start: 01-09-2024 Influenza vaccination Influenza Vacc ine (#1) [facility] hCG, qualitative hCG, qualitativ e Lab Routine Amenorrhea Ordered: 02/08/2024 [facility] Comment on above: Ordered: 02/08/2024 Hemoglobin A1c/Hemoglobin.total in Blood Hemoglobin A1c Lab Routine with uncertain dates, antepartum Ordered: 08/10/2024 [facility] Work Phone: Comment on above: Ordered: 08/10/2024 Luteinizing hormone Luteinizing hormone Lab Routine Amenorrhea Ordered: 02/08/2024 [facility] Comment on above: Ordered: 02/08/2024 Progesterone Progesterone Lab Routine Amenorrhea Ordered: 02/08/2024 [facility] Comment on above: Ordered: 02/08/2024 SENDOUT TEST MISCELLANEOUS [facility] SENDOUT TEST MISCELLANEOUS [facility] Lab Routine Screening for malignant neoplasm of cervix Encounter for gynecological examination without abnormal finding Ordered: 02/08/2024 [facility] Work Phone: Comment on above: Ordered: 02/08/2024 Testosterone, free, total Testosterone, free, total Lab Routine Amenorrhea Ordered: 02/08/2024 [facility] Comment on above: Ordered: 02/08/2024 Immunizations Immunization Date Immunization Notes Care Provider Flako garrison 09-25-2020 COVID-19 Vaccine Moderna - Documentation Purposes Only Lisandro Buitrago Other [facility] Other 08-21-2020 COVID-19 Vaccine Moderna - Documentation Purposes Only Lisandro Buitrago Other [facility] Other Payers Date Payer Category Payer Unknown [id number] 2023 Private Health Insurance [id number] 2023 Private Health Insurance [id number] 2023 Unknown [id number] 2. [id number] 1995 Unknown [id number] 2.16.84 0.1.858471.3.579.2.593 1995 Unknown [id number] 2.16.8 40.1.680578.3.579.2.718 1995 Unknown [id number] 2.16.8 40.1.627569.3.579.2.1259 1995 Unknown [id number] 2.16.8 40.1.070154.3.579.2.1259 1995 Unknown [id number] 2.16.8 40.1.819153.3.579.2.1258 1995 Unknown [id number] 2.16.8 40.1.756387.3.579.2.1259 1995 Unknown [id number] 2.16.8 40.1.573889.3.579.2.1259 1995 Unknown [id number] 2.16.8 40.1.658613.3.579.2.1259 1995 Unknown [id number] 2.16.8 40.1.012845.3.579.2.1258 1995 Unknown [id number] 2.16.8 40.1.565369.3.579.2.1259 1995 Unknown [id number] 2.16.84 0.1.084815.3.579.2.1259 1995 Unknown [id number] 2.16.84 0.1.210690.3.579.2.1259 1995 Unknown [id number] 2.16.84 0.1.562206.3.579.2.125 1995 Unknown [id number] 2.16.84 0.1.097368.3.579.2.9 1995 Unknown [id number] 2.16.84 0.1.975462.3.579.2.1259 1995 Unknown [id number] 2.16.84 0.1.198268.3.579.2.1259 1995 Unknown [id number] 2.16.84 0.1.652795.3.579.2.1259 1959 Self-pay Unknown MMO [id number] Unknown [id number] 2.16.8 [id number] Social History Date Type Detail Facility Start: 02-08-2024 End: 05-16-2024 Sex Assigned At [facility] Other Start: 1995 Sex Assigned At Female F [facility] Start: 05-15-[address] [facility] Never smoked tobacco [facility] Start: [...] Personal health goal Clinical Notes 02-24-2023 to 01-15-2025 Teresa Ambriz LPN - 01/15/2025 8:50 AM Elton Borrego LPN - 01/02/2025 8:30 AM LIZA Harris - 12/19/2024 8:50 AM Elton Borrego LPN - 12/05/2024 9:00 AM EDTPatient Instructions Note Date & Type Note Facility 01-15-2025 History of Presen t illness Narrative Reason [...] nursing note reviewed. Exam conducted with a flange turner present. Vitals: Estimated body mass index is 29.85 kg/m as calculated from the following: Height as of 08/10/24: 5' 3 . Weight as of this encounter: 168 lb 8 oz. BP: 132/72 Patient's last menstrual period was 05/09/2024 (exact date). ASSESSMENT & PLAN ICD-10-CM 1. Third trimester ([facility]) Z34.93 POCT urinalysis dipstick manually resulted 2. 34 weeks gestation of ([facility]) Z3A.34 Patient presents today for a routine obstetrics appointment. Patient is currently 34w0d with a Estimated Date of Delivery: 02/26/25. Discussed continuing NST/BPP's. Discussed pediatricians and gave some direction on where to call and what to ask. Patient to return to clinic in 2 weeks for routine OB appointment. Patient and spouse would like to discuss if continuing NST/BPP's. Patient to have GBS at next appointment. Documented by Teresa Ambriz LPN on behalf of: Kera Li NP documented in this encounter [facility] 01-02-2025 History of Presen t illness Narrative [...] nursing note reviewed. Exam conducted with a flange turner present. Vitals: Estimated body mass index is 28.96 kg/m as calculated from the following: Height as of 08/10/24: 5' 3 . Weight as of this encounter: 163 lb 8 oz. BP: 120/76 Patient's last menstrual period was 05/09/2024 (exact date). ASSESSMENT & PLAN ICD-10-CM 1. Third trimester ([facility]) Z34.93 POCT urinalysis dipstick manually resulted 2. 32 weeks gestation of ([facility]) Z3A.32 Return OB: Patient presents [...] José Lozano DO documented in this encounter [facility] 12-19-2024 History of Presen t [...] Grandfather Kwan Swiney Breast cancer Paternal Grandmother Mademarthan Walp Lung cancer Paternal Grandmother Madelon Walp [...] PLAN ICD-10-CM 1. 30 weeks gestation of ([facility]) Z3A.30 POCT urinalysis dipstick manually resulted 2. Third trimester ([facility]) Z34.93 POCT urinalysis dipstick manually resulted 3. [...] of: LIZA Zaldivar documented in this encounter [facility] 12-05-2024 History of Presen t [...] nursing note reviewed. Exam conducted with a flange turner present. Vitals: Estimated body mass index is 28.52 kg/m as calculated from the following: Height as of 08/10/24: 5' 3 . Weight as of this encounter: 161 lb. BP: 120/76 Patient's last menstrual period was 05/09/2024 (exact date). ASSESSMENT & PLAN ICD-10-CM 1. Third trimester ([facility]) Z34.93 CANCELED: POCT urinalysis dipstick manually resulted 2. 28 weeks gestation of ([facility]) Z3A.28 3. 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 size inconsistent with dates ([facility]) O26.849 US OB follow up transabdominal approach [...] José Lozano DO documented in this encounter [facility] 11-22-2024 History of Presen t [...] PLAN ICD-10-CM 1. 26 weeks gestation of ([facility]) Z3A.26 POCT urinalysis dipstick manually resulted 2. Second trimester ([facility]) Z34.92 POCT urinalysis dipstick manually [...] of: LIZA Zaldivar documented in this encounter [facility] 10-26-2024 History of Presen t [...] ASSESSMENT & PLAN ICD-10-CM 1. Second trimester ([facility]) Z34.92 POCT urinalysis dipstick manually resulted 2. 22 weeks gestation of ([facility]) Z3A.22 3. Diabetes mellitus screening Z13.1 CBC [...] by Azeb Gonzalez MA on behalf of: José Lozano DO documented in this encounter [facility] 08-29-2024 History of Presen t [...] syndrome Sister Breast cancer Maternal Grandmother Maricarmen Welchy Hypothyroidism Maternal Grandfather Kwan Swiney Thyroid disease [...] nursing note reviewed. Exam conducted with a flange turner present. Vitals: Estimated body mass index is [...] or undercooked meat, and stay away [facility]. Patient has been consulted regarding any further do's and don'ts of . Patient voiced understanding and all questions and concerns were answered. Orders Placed This Encounter Procedures POCT urinalysis dipstick manually resulted Follow Up: Patient is to return in 4 weeks for routine OB appointment. Documented by Zita Borrego LPN on behalf of: José Lozano DO documented in this encounter [facility] 08-10-2024 History of Presen t [...] Skyler Walp Cancer Paternal Grandfather Skyler Sanches Social History [...] or undercooked meat, and stay away from [facility]. Patient has also been advised to not change litter boxes and eat 6 small meals a day. Patient has been consulted regarding the do's and don'ts of . Patient was given labs and all questions and concerns were answered. Patient was given Cantril labs to be completed with Hgb A1C. Follow Up: Patient is to return in 4 weeks for routine OB appointment. Follow Up: Patient is to have labs drawn at directed and return to office for initial OB appointment with provider. Patient may call office as needed with any concerns or questions. Nurse Visit Completed by: Domenica Jacinto LPN documented in this encounter [facility] 07-11-2024 History of Presen t [...] Skyler Walp Cancer Paternal Grandfather Skyler Felixp Social History reports that she has never [...] 07/11/2024 10:03 AM documented in this encounter [facility] 05-16-2024 History of Presen t illness Narrative Images from the original note were not included. Madeleine Bundy MD Obstetrics and Gynecology Patient: Alondra Beaver : 1995 (28 y.o.) Exam Date: 05/16/2024 Reason for Visit - Chief Complaint Patient presents with Follow-up Follow up for Amenorrhea, missed menses, and family planning. Stopped EluRyng in 10/2023. 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 Exam conducted with a flange turner present. Assessment/Plan ICD-10-CM 1. Amenorrhea N91.2 2. [...] is a valuable step in the process. Electronically signed by Madeleine Bundy MD documented in this encounter [facility] 05-16-2024 Instructions Madeleine Bundy MD - 05/16/2024 12:30 PM EST [...] routine infertility test. documented in this encounter [facility] 02-08-2024 History of Presen t illness Narrative Images from the original note were not included. Madeleine Bundy MD Obstetrics and Gynecology Patient: Alondra [...] MyChart in 7 days Return 1 year Electronically signed by Madeleine Bundy MD documented in this encounter [facility] 05-12-2023 Evaluation note Encounter Date [...] and trigger point injections can be done. [facility] 10-18-2023 Evaluation note* Encounter Date Diagnosis Assessment Notes Treatment Notes Treatment Clinical Notes Feb, Encounter to establish care (ICD-10 - Z76.89) Patient appears to be in good health upon examination. She is here to establish care for annual physcial for her employment. 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 Feb, Wellness examination (ICD-10 - Z00.00) [...] Stress test ordered to rule out abnormalities. [facility] Evaluation noteNo assessment information available [facility] Work Phone: Evaluation note* Diagnosis [...] amniotic fluid [facility] Diagnosis Third trimester ([facility]) state, incidental 34 weeks gestation of ([facility]) [facility] N[facility]ative - Reported* Type Description Date Medical History Left elbow dislocation 2011 [facility] Summary Purpose Family History No Family [...] and content) DATE CREATED AUTHOR 07/30/2021 [facility] DATE CREATED AUTHOR AUTHOR'S ORGANIZ ATION 05/24/2023 [facility] DATE CREATED AUTHOR AUTHOR'S ORGANIZ ATION 02/20/2024 [facility] DATE CREATED AUTHOR AUTHOR'S ORGANIZ ATION 01/10/2025 [facility] DATE CREATED AUTHOR AUTHOR'S ORGANIZ ATION 01/16/2025 [facility] Special[facility] EPIC REASON FOR VISIT (unrecogniz ed section and content) Reason Comments Gynecologic Exam Reason Comments Follow-up Reason Comments Initial Visit Nurse Visit Reason Comments Amenorrhea Reason Comments Routine Visit Care Teams (unrecognized sec tion and content) Team Status: Inactive Member Role Status Dates Lisandro Buitrago DO Attending Provider Active Gas Pumper Relationship Specialty Start Date End Date Unallocated, Torrey Horn MD [address] [place] [address] PCP - General Family Medicine 06/23/23 Gas Pumper Relationship Specialty Start Date End Date Unallocated, Torrey Horn MD [address] [place] [address] PCP - General Family Medicine 06/23/23 Gas Pumper Relationship Specialty Start Date End Date Unallocated, Torrey Horn MD [address] [place] [address] PCP - General Family Medicine 06/23/23 Gas Pumper Relationship Specialty Start Date End Date Unallocated, Torrey Horn MD [address] [place] [address] PCP - General Family Medicine 06/23/23 Gas Pumper Relationship Specialty Start Date End Date Unallocated, Torrey Horn MD [address] [place] [address] PCP - General Family Medicine 06/23/23 Gas Pumper Relationship Specialty Start Date End Date Unallocated, Torrey Horn MD [facility] [place] [address] PCP - General Family Medicine 06/23/23 Gas Pumper Relationship Specialty Start Date End Date Unallocated, Torrey Horn MD [facility] [place] [address] PCP - General Family Medicine 06/23/23 Gas Pumper Relationship Specialty Start Date End Date Unallocated, Torrey Horn MD [facility] [place] [address] PCP - General Family Medicine 06/23/23 Gas Pumper Relationship Specialty Start Date End Date Unallocated, Torrey Horn MD [facility] [address] [address] PCP - General Family Medicine 06/23/23 Gas Pumper Relationship Specialty Start Date End Date Unallocated, Torrey Horn MD [facility] [place] [address] PCP - General Family Medicine 06/23/23 Gas Pumper Relationship Specialty Start Date End Date Unallocated, Torrey Horn MD [facility] [place] [address] PCP - General Family Medicine 06/23/23 Goals [...] BE BASED ON THE PRIMARY CLINICAL RECORDS. [facility]. provides no warranty or guarantee of the accuracy or completeness of information in this document.
--- OUTSIDE RECORDS SUMMARY | 2025-01-18 07:02 | XMS_ITS | Encounter Summary ---
Author Organization [facility] Address [address] [place] [address] Care Team Providers Care Economics Analyst Name Role Phone Unallocated, [facility]oms Provider Primary Care Provi ulysses Encounter Details Date Type Department Care Team (Late st Contact Info) Description 01/08/2025 Clinisync Result Encounter [facility] Unsolicited Rocio Lozano, DO [address] [place] [address] Social History Tobacco Use Types Packs/Day Years [...] AM EDT Routine [facility] [address] [place] [address] Rocio Lozano DO [address] [place] [address] documented as of this encounter Goals Goal [...] EDT Narrative 01/08/2025 12:46 PM EDT The [address] [address] Ultrasound Report Signed Patient: ALONDRA BEAVER MR#: [id number] : 1995 Acct:[id number] Age/Sex: 29 / F ADM Date: 01/08/25 Loc: US Attending Dr: Rocio Lozano D.O. Ordering Physician: Rocio Lozano D.O. Date of Service: 01/08/25 Procedure(s): US OB BPP w non-stress Accession Number(s): [id number] cc: Rocio Lozano D.O.; Zita Alanis M.D. The [address] [address] Patient Name: ALONDRA BEAVER MRN: [id number] date: 1995 Sex: F Assigned Patient Location: US Current Patient Location: [facility] Accession/Order Number: [id number] Exam Date: 01/08/2025 12:03 Report Date: 01/08/2025 12:44 At the request of: ROCIO LOZANO DO Procedure: US OB BPP w non-stress Biophysical profile. Reason for exam: Abnormal BPP. COMPARISON: 01/04/2025 TECHNIQUE: Transabdominal imaging of the gravid uterus was obtained. FINDINGS: The bar tender reports a BPP of 8 out of 8. ZULMA is normal at 14.8 cm. heart rate 135 bpm. US/US OB BPP w non-stress IMPRESSION: BPP 8 out of 8. Impression dictated by: Terry Puentes Jr., D.O. 01/08/2025 12:44 PM Dictation Location: [place] [address] Electronically authenticated by: [id number] Y Date: 01/08/2025 12:44 Dictated By: Terry Puentes M.D. Signed By: 01/08/25 1246 DD/ 1244 TD/TT: Mutuel Clerk: Procedure Note Radiology, Radiologist, MD - 01/08/2025 [place] [address] Ultrasound Report Signed Patient: ALONDRA BEAVER NMR#: [id number] : 1995Acct:[id number] Age/Sex: 29 FADM Date: 01/08/25 Loc: US Attending Dr: Rocio Lozano D.O. Ordering Physician: Rocio Lozano D.O. Date of Service: 01/08/25 Procedure(s): US OB BPP w non-stress Accession Number(s): [id number] cc: Rocio Lozano D.O.; Zita Alanis M.D. The [address] [address] Patient Name: ALONDRA BEAVER MRN: [id number] date: 1995 Sex: F Assigned Patient Location: [place] [facility] [place]ion/Order Number: [id number] Exam Date: 01/08/2025 12:03 Report Date: 01/08/2025 12:44 At the request of: ROCIO LOZANO DO Procedure: US OB BPP w non-stress Biophysical profile. Reason for exam: Abnormal BPP. COMPARISON: 01/04/2025 TECHNIQUE: Transabdominal imaging of the gravid uterus was obtained. FINDINGS: The bar tender reports a BPP of 8 out of 8. ZULMA is normal at14.8 cm. heart rate 135 bpm. US/US OB BPP w non-stress IMPRESSION: BPP 8 out of 8. Impression dictated by: Terry Puentes Jr., D.O. 01/08/2025 12:44 PM Dictation Location: [place] [address] Electronically authenticated by: [id number] Y Date: 2:44 Dictated By: Terry Puentes M.D. Signed By:01/08/25 1246 DD/ 1244 TD/TT: Mutuel Clerk: us Rocio Lozano DO [facility] Final Result documented in this encounter Visit Diagnoses Not on filedocumented in this encounter Additional Health Concerns Active Problems Noted Date Diagnosed Date OB Reminders 07/11/2024 documented as of this encounter Care Teams Economics Analyst Relationship Specialty Start Date End Date Unallocated, Noms Provider, [address] [place] [address] PCP - General Family Medicine 06/23/23 documented as of this encounter
[2025-01-18 07:17] VITALS: BP 126/69; PULSE 88
== END 2025-01-18 07:45 | disposition home or self-care (01) ==
LOC: US 06:59 → FBC 07:01
PROVIDERS: PCP Family Medicine; Visit Provider Obstetrics & Gynecology
DX: O26.893 Other specified pregnancy related conditions, third trimester (principal); Z3A.34 34 weeks gestation of pregnancy
CPT/HCPCS: 76818

== ENCOUNTER 2025-01-25 06:57 | Outpatient (OUT) | payer OTHER, SELFPAY ==
--- NOTE | 2025-01-25 | US_ITS ---
The [place] [id number] Patient Name: ALONDRA BEAVER MRN: [id number] date: 1995 Sex: F Assigned Patient Location: [facility] Current Patient Location: Accession/Order Number: [id number] Exam Date: 01/25/2025 07:01 Report Date: 01/25/2025 08:50 At the request of: ROCIO VINES DO Procedure: US OB BPP w non-stress BIOPHYSICAL PROFILE: CLINICAL INFORMATION: BORDERLINE LOW AMNIOTIC FLUID COMPARISON: 01/18/2025 There is a single live intrauterine gestation in cephalic presentation. The reported gestational age is 35 weeks 3 days. The heart rate measures 144 beats per minute. FINDINGS: TONE: 1 or more episodes of activity extension and flexion of extremity or opening and closing of the hand [Y] 2/2 GROSS BODY MOVEMENTS: 3 or more discrete body or limb movements [Y] 2/2 BREATHING MOVEMENTS: 1 or more episodes of breathing lasting at least 30 seconds [Y] 2/2 ZULMA: A single deepest vertical pocket of amniotic fluid greater than 2 cm [Y] 2/2 ZULMA: 13.05 cm. This is in low-normal range. Total score: 8/ US/US OB BPP w non-stress IMPRESSION: NORMAL BIOPHYSICAL PROFILE Impression dictated by: Zita Lu M.D. 01/25/2025 8:50 AM Dictation Location: [employer] Electronically authenticated by: [id number] Y Date: 01/25/2025 08:50
--- OUTSIDE RECORDS SUMMARY | 2025-01-25 06:59 | XMS_ITS | CCD ---
Author Organization [facility] Care Team Providers Care Attendant Child Activity Name Role Phone DR JANES GARCIA Admitting Unavailable JOSE, DR JANES Escobar Attending Unavailable REQUEST, NONE LISTED Primary Care Unavaila verna GARCIA, DR JANES Escobar Consulting Unavailable Lisandro Buitrago Unavailable DO Lisandro Buitrago Attending Provider [phone] Tyrell Stiles Unavailable Lisandro Buitrago Attending [...] 08/21/2024 08/29/2024 Discontinued 21 day ethinyl estradiol 0.878861 mg/hr / etonogestrel 0.005 mg/hr vaginal system [...] Test Name Value Interpretation Reference Range Facility OB BPP W NON-STRESS on 01-18-[address] [address] Ultrasound Report Signed Patient: ALONDRA BEAVER MR#: [id number] : 1995 Acct:[id number] Age/Sex: 29 / F ADM Date: 01/18/25 Loc: US Attending Dr: José Lozano D.O. Ordering Physician: José Lozano D.O. Date of Service: 01/18/25 Procedure(s): US OB BPP w non-stress Accession Number(s): [id number] cc: José Lozano D.O.; Zita Alanis M.D. [facility] [place] [address] Patient Name: ALONDRA BEAVER MRN: [id number] date: 1995 Sex: F Assigned Patient Location: [facility] Current Patient Location: Accession/Order Number: [id number] Exam Date: 01/18/2025 07:04 Report Date: 01/18/2025 08:45 At the request of: JOSÉ LOZANO DO Procedure: US OB BPP w non-stress BIOPHYSICAL PROFILE: CLINICAL INFORMATION: ZULMA borderline low COMPARISON: 01/08/2025 There is a single live intrauterine gestation in cephalic presentation. The reported gestational age is 34 weeks 3 days. The heart rate measures 152 beats per minute. FINDINGS: TONE: 1 or more episodes of activity extension and flexion of extremity or opening and closing of the hand [Y] 2/2 GROSS BODY MOVEMENTS: 3 or more discrete body or limb movements [Y] 2/2 BREATHING MOVEMENTS: 1 or more episodes of breathing lasting at least 30 seconds [Y] 2/2 ZULMA: A single deepest vertical pocket of amniotic fluid greater than 2 cm [Y] 2/2 ZULMA: 12.1 cm. This is in low-normal range. Total score: 12/15 US/US OB BPP w non-stress IMPRESSION: NORMAL BIOPHYSICAL PROFILE Impression dictated by: Zita Lu M.D. 01/18/2025 8:45 AM Dictation Location: [employer] Electronically authenticated by: [id number] Y Date: 01/18/2025 08:45 Dictated By: Zita Lu M.D. Signed By: 01/18/2548 DD/ 4 TD/TT: Pipeliner: [facility] Radiology, Radiologist, - 01/18/2025 [place] [address] Ultrasound Report Signed Patient: ALONDRA BEAVER MR#: [id number] : 1995 Acct:[id number] Age/Sex: 29 / F ADM Date: 01/18/25 Loc: US Attending Dr: José Lozano D.O. Ordering Physician: José Lozano D.O. Date of Service: 01/18/25 Procedure(s): US OB BPP w non-stress Accession Number(s): [id number] cc: José Lozano D.O.; Zita Alanis M.D. [facility] [place] [address] Patient Name: ALONDRA BEAVER MRN: [facility]:[id number] date: 1995 Sex: F Assigned Patient Location: [facility] Current Patient Location: Accession/Order Number: [id number] Exam Date: 01/18/2025 07:04 Report Date: 01/18/2025 08:45 At the request of: JOSÉ LOZANO DO Procedure: US OB BPP w non-stress BIOPHYSICAL PROFILE: CLINICAL INFORMATION: ZULMA borderline low COMPARISON: 01/08/2025 There is a single live intrauterine gestation in cephalic presentation. The reported gestational age is 34 weeks 3 days. The heart rate measures 152 beats per minute. FINDINGS: TONE: 1 or more episodes of activity extension and flexion of extremity or opening and closing of the hand [Y] 2/2 GROSS BODY MOVEMENTS: 3 or more discrete body or limb movements [Y] 2/2 BREATHING MOVEMENTS: 1 or more episodes of breathing lasting at least 30 seconds [Y] 2/2 ZULMA: A single deepest vertical pocket of amniotic fluid greater than 2 cm [Y] 2/2 ZULMA: 12.1 cm. This is in low-normal range. Total score: 12/15 US/US OB BPP w non-stress IMPRESSION: NORMAL BIOPHYSICAL PROFILE Impression dictated by: Zita Lu M.D. 01/18/2025 8:45 AM Dictation Location: [place] [address] Electronically authenticated by: [id number] Y Date: 01/18/2025 08:45 Dictated By: Ztia Lu M.D. Signed By: 01/18/2548 DD/ 4 TD/TT: Pipeliner: [facility] Study observation (narrative) [facility] US OB BPP W NON-STRESS Ordered By: Radiologist Radiology on 01-18-2025 [facility] Work Phone: Urinalysis macro (dipstick) panel (U)on 01-15-2025 Bilirubin, UA Negative Negative - 4(70) +++ mg/dL [facility] Blood, UA Negative Negative - 50 Amrk/mcL [facility] Clarity, UA Clear [facility] Color, UA Yellow [facility] Glucose, UA Negative Negative - 2000(110) ++++ mg/dL [facility] Interpretation and review of laboratory results Abnormal [facility] Ketones, UA Negative Negative - 160(16) ++++ mg/dL [facility] Leukocytes, UA Positive Negative - 500+++ Mahsa/mcL [facility] Comment on above: 1+ Nitrite, UA Negative Negative - Positive [facility] pH, UA 6 5 - 9 [facility] Protein, UA Negative Negative - 2000(20) ++++ mg/dL [facility] Spec Grav, UA 1.02 1 - 1.03 [facility] Urobilinogen, UA 0.2 0.2 - 12 mg/dL [facility] Outside Recordson 01-09-2025 Outside Records [id number] [facility] [id number] 16#1.00OTGTIFF [facility] US OB BPP W NON-STRESS on 01-08-2025 [facility] [place] [id number] Ultrasound Report Signed Patient: ALONDRA BEAVER MR#: [id number] : 1995 Acct:[id number] Age/Sex: 29 / F ADM Date: 01/08/25 Loc: US Attending Dr: José Lozano D.O. Ordering Physician: José Lozano D.O. Date of Service: 01/08/25 Procedure(s): US OB BPP w non-stress Accession Number(s): [id number] cc: José Lozano D.O.; Zita Alanis M.D. [facility] [place] [id number] Patient Name: ALONDRA BEAVER MRN: [facility]:[id number] date: 1995 Sex: F Assigned Patient Location: [place] [facility]/Order Number: [id number] Exam Date: 01/08/2025 12:03 Report Date: 01/08/2025 12:44 At the request of: JOSÉ LOZANO DO Procedure: US OB BPP w non-stress Biophysical profile. Reason for exam: Abnormal BPP. COMPARISON: 01/04/2025 TECHNIQUE: Transabdominal imaging of the gravid uterus was obtained. 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 ZULMA is normal at 14.8 cm. heart rate 135 bpm. US/US OB BPP w non-stress IMPRESSION: BPP 8 out of 8. Impression dictated by: Terry Puentes Jr., D.O. 01/08/2025 12:44 PM Dictation Location: [place] [address] Electronically authenticated by: [id number] Y Date: 01/08/2025 12:44 Dictated By: Terry Puentes M.D. Signed By: 01/08/25 1246 DD/ 1244 TD/TT: Pipeliner: [facility] Radiology, Radiologist, - 01/08/2025 [facility] [place] [id number] Ultrasound Report Signed Patient: ALONDRA BEAVER MR#: [id number] : 1995 Acct:[id number] Age/Sex: 29 / F ADM Date: 01/08/25 Loc: US Attending Dr: José Lozano D.O. Ordering Physician: José Lozano D.O. Date of Service: 01/08/25 Procedure(s): US OB BPP w non-stress Accession Number(s): [id number] cc: José Lozano D.O.; Zita Alanis M.D. [place] [address] Patient Name: ALONDRA BEAVER MRN: [id number] date: 1995 Sex: F Assigned Patient Location: [place] [facility]ion/Order Number: [id number] Exam Date: 01/08/2025 12:03 Report Date: 01/08/2025 12:44 At the request of: JOSÉ LOZANO DO Procedure: US OB BPP w non-stress Biophysical profile. Reason for exam: Abnormal BPP. COMPARISON: 01/04/2025 TECHNIQUE: Transabdominal imaging of the gravid uterus was obtained. 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 ZULMA is normal at 14.8 cm. heart rate 135 bpm. US/US OB BPP w non-stress IMPRESSION: BPP 8 out of 8. Impression dictated by: Terry Puentes Jr., D.O. 01/08/2025 12:44 PM Dictation Location: [place] [address] Electronically authenticated by: [id number] Y Date: 01/08/2025 12:44 Dictated By: Terry Puentes M.D. Signed By: 01/08/25 1246 DD/ 1244 TD/TT: Pipeliner: [facility] Rad[facility] Study observation (narrative) [facility] US OB BPP W NON-STRESS Ordered By: Radiologist Radiology on 01-08-2025 [facility] Work Phone: US OB BPP W NON-STRESS on 01-04-[address] [address] Ultrasound Report Signed Patient: ALONDRA BEAVER MR#: [id number] : 1995 Acct:[id number] Age/Sex: 29 / F ADM Date: 01/04/25 Loc: US Attending Dr: Jsoé Lozano D.O. Ordering Physician: José Lozano D.O. Date of Service: 01/04/25 Procedure(s): US OB BPP w non-stress Accession Number(s): [id number] cc: José Lozano D.O.; Zita Alanis M.D. [place] [address] Patient Name: ALONDRA BEAVER MRN: [id number] date: 1995 Sex: F Assigned Patient Location: [facility] Current Patient Location: Accession/Order Number: [id number] Exam Date: 01/04/2025 07:10 Report Date: 01/04/2025 10:27 At the request of: JOSÉ LOZANO DO Procedure: US OB BPP w non-stress BIOPHYSICAL PROFILE: CLINICAL INFORMATION: ZULMA BORDERLINE LOW O28.8 COMPARISON: None There is a single live intrauterine gestation in cephalic presentation. The reported gestational age is 32 weeks 3 days. The heart rate [id number] beats per minute. FINDINGS: TONE: 1 or [...] Lu M.D. 01/04/2025 10:27 AM Dictation Location: [email or web address] Electronically authenticated by: [id number] Y Date: 01/04/2025 10:27 Dictated By: Zita Lu M.D. Signed By: 01/04/25 1030 DD/ 1027 TD/TT: Pipeliner: [facility] Radiology, Radiologist, MD - 01/04/2025 [place] [address] Ultrasound Report Signed Patient: ALONDRA BEAVER MR#: [id number] : 1995 Acct:[id number] Age/Sex: 29 / F ADM Date: 01/04/25 Loc: US Attending Dr: José Lozano D.O. Ordering Physician: José Lozano D.O. Date of Service: 01/04/25 Procedure(s): US OB BPP w non-stress Accession Number(s): [id number] cc: José Lozano D.O.; Zita Alanis M.D. [facility] [place] [id number] Patient Name: ALONDRA BEAVER MRN: [facility]:[id number] date: 1995 Sex: F Assigned Patient Location: [facility] Current Patient Location: Accession/Order Number: [id number] Exam Date: 01/04/2025 07:10 Report Date: 01/04/2025 10:27 At the request of: JOSÉ LOZANO DO Procedure: US OB BPP w non-stress BIOPHYSICAL PROFILE: CLINICAL INFORMATION: ZULMA BORDERLINE LOW O28.8 COMPARISON: None There is a single live intrauterine gestation in cephalic presentation. The reported gestational age is 32 weeks 3 days. The heart rate [id number] beats per minute. FINDINGS: TONE: 1 or [...] Lu M.D. 01/04/2025 10:27 AM Dictation Location: [email or web address] Electronically authenticated by: [id number] Y Date: 01/04/2025 10:27 Dictated By: Zita Lu M.D. Signed By: 01/04/25 1030 DD/ 1027 TD/TT: Pipeliner: [facility] Radiology Study observation (narrative) [facility] US OB BPP W NON-STRESS Ordered By: Radiologist Radiology on 01-04-2025 [facility] Work Phone: Urinalysis macro (dipstick) panel (U)on 01-02-2025 Bilirubin, UA Negative Negative - 4(70) +++ mg/dL [facility] Blood, UA Negative Negative - 50 Mark/mcL [facility] Clarity, UA Clear [facility] Color, UA Yellow [facility] Glucose, UA Negative Negative - 2000(110) ++++ mg/dL [facility] Interpretation and review of laboratory results Abnormal [facility] Ketones, UA Negative Negative - 160(16) ++++ mg/dL [facility] Leukocytes, UA Positive Negative - 500+++ Mahsa/mcL [facility] Comment on above: Trace Nitrite, UA Negative Negative - Positive [facility] pH, UA 6.5 5 - 9 [facility] Protein, UA Negative Negative - 2000(20) ++++ mg/dL [facility] Spec Grav, UA 1.015 1 - 1.03 [facility] Urobilinogen, UA 0.2 0.2 - 12 mg/dL [facility] US OB FOLLOW UP TRANSABDOMIN [...] UA Negative Negative - 4(70) +++ mg/dL [facility] Blood, UA Negative Negative - 50 Mark/mcL [facility] Clarity, UA Clear [facility] Color, UA Yellow [facility] Glucose, UA Negative Negative - 2000(110) ++++ mg/dL [facility] Interpretation and review of laboratory results Abnormal [facility] Ketones, UA Negative Negative - 160(16) ++++ mg/dL [facility] Leukocytes, UA 3+ Negative - 500+++ Mahsa/mcL [facility] pH, UA 6 5 - 9 [facility] Protein, UA Negative Negative - 2000(20) ++++ mg/dL [facility] Spec Grav, UA 1.015 1 - 1.03 [facility] Urobilinogen, UA 0.2 0.2 - 12 mg/dL [facility] GLUCOSE TOLERANCE 3 HOURon 0 11-28-2024 GLUCOSE TOLERANCE 3 HOUR mg/dL [facility] Comment on above: GLU FAST 93 (<95) Co l: 11/28/24 0641 GLU 1HR 149 (<180) Col: 11/28/24 0743 GLU 2HR 118 (<155) Col: 11/28/24 0843 GLU 3HR 81 (<140) Col: 11/28/24 0942 [facility] ALL CBC WITH AUTO DIFFon BASOPHILS ABSOLUTE AUTO 0 [facility] Basophils/100 WBC (Bld) 0.4 % 0.2 - 2.0 % [facility] Eosinophils/100 WBC (Bld) 1.2 % 0.9 - 7.0 % [facility] Erythrocyte distribution width (RBC) [Ratio] 13 % 11.0 - 15.0 % [facility] Hematocrit (Bld) [Volume fraction] 35.6 % Low 36.0 - 48.0 % [facility] Hemoglobin (Bld) [Mass/Vol] 11.9 g/dL Low 12.0 - 16.0 g/dL [facility] IMMATURE GRANULOCYTES ABS AUTO 0.13 High [facility] Immature granulocytes/100 WBC (Bld) 1.2 % High 0.0 - 0.5 % [facility] Interpretation and review of laboratory results Abnormal [facility] LYMPHOCYTES ABSOLUTE AUTO 1.3 [facility] Lymphocytes/100 WBC (Bld) 11.6 % Low 20.5 - 60.0 % [facility] MCH (RBC) [Entitic mass] 30.9 pg 26.7 - 34.0 pg [facility] MCHC (RBC) [Mass/Vol] 33.4 g/dL 29.9 - 35.2 g/dL [facility] MCV (RBC) [Entitic vol] 92.5 fL 81.0 - 99.0 fL [facility] MONOCYTES ABSOLUTE AUTO 0.5 [facility] Monocytes/100 WBC (Bld) 4.9 % 1.7 - 12.0 % [facility] NEUTROPHILS ABSOLUTE AUTO 8.8 High [facility] Neutrophils/100 WBC (Bld) 80.7 % High 43.0 - 75.0 % [facility] Platelet mean volume (Bld) [Entitic vol] 10.5 fL 9.5 - 13.5 fL [facility] TBH EO # 0.1 [facility] PLT 198 [facility] RBC 3.85 Low [facility] TB WBC 10.9 [facility] Urinalysis macro (dipstick) panel (U)on 11-22-2024 Bilirubin, UA Negative Negative - 4(70) +++ mg/dL [facility] Blood, UA Negative Negative - 50 Mark/mcL [facility] Clarity, UA Clear [facility] Color, UA Yellow [facility] Glucose, UA Negative Negative - 1999(110) ++++ mg/dL [facility] Interpretation and review of laboratory results Abnormal [facility] Ketones, UA Negative Negative - 160(16) ++++ mg/dL [facility] Leukocytes, UA Moderate Negative - 500+++ Mahsa/mcL [facility] Nitrite, UA Negative Negative - Positive [facility] pH, UA 6 5 - 9 [facility] Protein, UA Negative Negative - 1999(20) ++++ mg/dL [facility] Spec Grav, UA 1.01 1 - 1.03 [facility] Urobilinogen, UA 0.2 0.2 - 12 mg/dL [facility] Urinalysis macro (dipstick) panel (U)on 10-26-2024 Bilirubin, UA Negative Negative - 4(70) +++ mg/dL [facility] Blood, UA Negative Negative - 50 Mark/mcL [facility] Clarity, UA Clear [facility] Color, UA Yellow [facility] Glucose, UA Negative Negative - 1999(110) ++++ mg/dL [facility] Interpretation and review of laboratory results Normal [facility] Ketones, UA Negative Negative - 160(16) ++++ mg/dL [facility] Leukocytes, UA Negative Negative - 500+++ Mahsa/mcL [facility] Nitrite, UA Negative Negative - Positive [facility] pH, UA 6.5 5 - 9 [facility] Protein, UA Negative Negative - 1999(20) ++++ mg/dL [facility] Spec Grav, UA 1.02 1 - 1.03 [facility] Urobilinogen, UA 0.2 0.2 - 12 mg/dL [facility] US OB 14+ WEEKS ANATOMY [...] II, MD, PHD at 27-Oct-2024 06:14:52 AM [facility] [employer] Normal Not Available Comment on above: Order Comment: US OB ANATOMY SINGLE W US OB CERVICAL LENGTH Estimated Date of Delivery: 02/26/25 Gestational Age as of 09/28/2024: 18w3d BOX TESTon 08-29-2024 BOX TEST SENT OUT [employer] [address] [employer] [address] 08-29-24 [employer] [facility] [employer] Urinalysis macro (dipstick) panel (U)on 08-29-2024 Bilirubin, UA Negative Negative - 4(70) +++ mg/dL [facility] Blood, UA Negative Negative - 50 Mark/mcL [facility] Clarity, UA Clear [facility] Color, UA Yellow [facility] Glucose, UA Negative Negative - 1999(110) ++++ mg/dL [facility] Interpretation and review of laboratory results Normal [facility] Ketones, UA Negative Negative - 160(16) ++++ mg/dL [facility] Leukocytes, UA Negative Negative - 500+++ Mahsa/mcL [facility] Nitrite, UA Negative Negative - Positive [facility] pH, UA 6 5 - 9 [facility] Protein, UA Negative Negative - 1999(20) ++++ mg/dL [facility] Spec Grav, UA 1.02 1 - 1.03 [facility] Urobilinogen, UA 0.2 0.2 - 12 mg/dL [facility] HCG ( test) Ql (U)o n 08-10-2024 Interpretation and review of laboratory results Abnormal [facility] Preg Test, Ur Positive Negative [facility] US OB < 14 WEEKS [...] II, MD, PHD at 11-Aug-2024 08:40:37 AM [facility] [employer] Normal Not Available Comment on above: Order Comment: US OB Patient's last menstrual period was 05/09/2024 (exact date). Urinalysis macro (dipstick) panel (U)on 08-10-2024 Bilirubin, UA Negative Negative - 4(70) +++ mg/dL [facility] Blood, UA Negative Negative - 50 Mark/mcL [facility] Clarity, UA Clear [facility] Color, UA Yellow [facility] Glucose, UA Negative Negative - 2000(110) ++++ mg/dL [facility] Interpretation and review of laboratory results Abnormal [facility] Ketones, UA Positive Negative - 160(16) ++++ mg/dL [facility] Comment on above: 40 Leukocytes, UA Negative Negative - 500+++ Mahsa/mcL [facility] Nitrite, UA Negative Negative - Positive [facility] pH, UA 5.5 5 - 9 [facility] Protein, UA Negative Negative - 2000(20) ++++ mg/dL [facility] Spec Grav, UA 1.02 1 - 1.03 [facility] Urobilinogen, UA 0.2 0.2 - 12 mg/dL [facility] Outside Recordson 04-20-2024 Outside Records [id number] [facility]-31-2024 Outside Records [id number] 6#1.00[facility] Consent Formson 02-18-2024 Consent Forms [id number] 3D#1.00[facility] Cytology Cervical or vaginal smear or scraping studyon 02-08-2024 [facility] HCG ( test) Ql (U)o n 02-08-2024 Interpretation and review of laboratory results Normal [facility] Preg Test, Ur Negative [facility] CMP Standardon 02-03-2024 eGFR Non AA >60 Invalid Interpretation Code [facility] Comment on above: Performed By: #### 1 [id number], [id number], 8132604, 5025561, 0123663, 1600761, 2658162 #### [facility] (DEFAULT) [address] [place] [address] eGFR AA >60 Invalid Interpretation Code [facility] Comment on above: Performed By: #### 1 [id number], [id number], 5134742, 5743482, 4233401, 1066334, 1377113 #### [facility] (DEFAULT) [address] [place] [address] Albumin [Mass/Vol] 4.4 g/dL Normal 3.5-5.0 [facility] Comment on above: Performed By: #### 1 [id number], [id number], 2738007, 9487433, 6690334, 1508205, 6588961 #### [facility] (DEFAULT) [address] [place] [address] Albumin/Globulin [Mass ratio] 1.4 {ratio} Normal 1.4-2.6 [facility] Comment on above: Performed By: #### 1 [id number], [id number], 4153282, 2830919, 6509511, 8083098, 4648690 #### [facility] (DEFAULT) [address] [place] [address] Alk Phos 67 IU/L Normal 32-91 [facility] Comment on above: Performed By: #### 1 [id number], [id number], 9763038, 5863407, 7513823, 0365633, 2356692 #### [facility] (DEFAULT) [address] [place] [address] ALT [Catalytic activity/Vol] 19.0 U/L Normal 14.0-54.0 [facility] Comment on above: Performed By: #### 1 [id number], [id number], 8299468, 5658804, 4288459, 6720006, 5603442 #### [facility] (DEFAULT) [address] [place] [address] Anion gap [Moles/Vol] 10.8 mmol/L Normal 5.0-19.0 [facility] Comment on above: Performed By: #### 1 [id number], 7341122298, 4183885, 4790985, 4221198, 6510169, 8693465 #### [facility] (DEFAULT) [address] [place] [address] AST [Catalytic activity/Vol] 21 U/L Normal 15-41 [facility] Comment on above: Performed By: #### 1 [id number], [id number], 0125905, 2900165, 3209569, 4252526, 2611234 #### [facility] (DEFAULT) [address] [place] [address] Bili Total 0.7 mg/dL Normal 0.3-1.2 [facility] Comment on above: Performed By: #### 1 [id number], 9649576551, 3518332, 7474747, 4228385, 0781001, 7587580 #### [facility] (DEFAULT) [address] [place] [address] Calcium [Mass/Vol] 8.9 mg/dL Normal 8.9-10.3 [facility] Comment on above: Performed By: #### 1 [id number], [id number], 7421716, 9921048, 3510461, 3112479, 5208884 #### [facility] (DEFAULT) [address] [place] [address] Chloride [Moles/Vol] 100 mmol/L Low 101-111 [facility] Comment on above: Performed By: #### 1 [id number], 6189722724, 6137195, 6434289, 6741436, 6438318, 5545743 #### [facility] (DEFAULT) [address] [place] [address] CO2 [Moles/Vol] 26 mmol/L Normal 21-32 [facility] Comment on above: Performed By: #### 1 [id number], 6527945128, 8670999, 5944468, 3033102, 4796426, 6163755 #### [facility] (DEFAULT) [address] [place] [address] Creatinine [Mass/Vol] 0.86 mg/dL Normal 0.60-1.30 [facility] Comment on above: Performed By: #### 1 [id number], [id number], [id number], 8059507, 7792841, 9784507, 4907496 #### [facility] (DEFAULT) [address] [place] [address] 96986 Globulin (S) [Mass/Vol] 3.1 g/dL Normal 1.5-4.3 [facility] Comment on above: Performed By: #### 1 [id number], [id number], 6752026, 9894068, 8881714, 4021469, 1015631 #### [facility] (DEFAULT) [address] [place] [address] 78783 Glucose [Mass/Vol] 90.0 mg/dL Normal 74.0-118.0 [facility] Comment on above: Performed By: #### 1 [id number], [id number], 4468137, 2531405, 8797152, 3944638, 1929738 #### [facility] (DEFAULT) [address] [place] [address] 59834 Osmolality 267 mOsm/L Invalid Interpretation Code [facility] Comment on above: Performed By: #### 1 [id number], [id number], 3749654, 8151101, 4537367, 8264933, 9850979 #### [facility] (DEFAULT) [address] [place] [address] 46075 Potassium [Moles/Vol] 3.8 mmol/L Normal 3.6-5.1 [facility] Comment on above: Performed By: #### 1 [id number], [id number], 3018060, 0807784, 7275279, 5505333, 9957815 #### [facility] (DEFAULT) [address] [place] [address] 73498 Protein [Mass/Vol] 7.5 g/dL Normal 6.5-8.1 [facility] Comment on above: Performed By: #### 1 [id number], [id number], 3907215, 8590356, 1246027, 9469756, 4948732 #### [facility] (DEFAULT) [address] [place] [address] 19377 Sodium [Moles/Vol] 133.0 mmol/L Low 136.0-144.0 [facility] Comment on above: Performed By: #### 1 [id number], [id number], 6415414, 5035851, 1884447, 1932108, 0491168 #### [facility] (DEFAULT) [address] [place] [address] 56295 Urea nitrogen [Mass/Vol] 17 mg/dL Normal - [facility] Comment on above: Performed By: #### 1 [id number], [id number], 4543003, 4148639, 9946142, 2823572, 3995330 #### [facility] (DEFAULT) [address] [place] [address] Urea nitrogen/Creatinine [Mass ratio] 19.7 mg/mg High 4.6-16.2 [facility] Comment on above: Performed By: #### 1 [id number], [id number], 0627138, 2282426, 9876663, 8251738, 1669498 #### [facility] (DEFAULT) [address] [place] [address] 81368 GGTon 02-03-2024 Gamma glutamyl transferase [Catalytic activity/Vol] 20.0 U/L Normal 7.0-50.0 [facility] Comment on above: Performed By: #### 1 [id number], [id number], 1764251, 6193447, 3998352, 2440313, 0109902 #### [facility] (DEFAULT) [address] [place] [address] 03041 Iron Levelon 02-03-2024 Iron [Mass/Vol] 93.0 ug/dL Normal 28.0-170.0 [facility] Comment on above: Performed By: #### 1 [id number], [id number], 6282136, 4633386, 6084533, 1841053, 3622953 #### [facility] (DEFAULT) [address] [place] [address] 32992 LDHon 02-03-2024 LDH 126.0 IU/L Normal 98.0-192.0 [facility] Comment on above: Performed By: #### 1 [id number], [id number], 7163257, 0175628, 9368726, 6862321, 6059806 #### [facility] (DEFAULT) [address] [place] [address] 20472 Lipid Panel Standardon 02-02 Cholesterol [Mass/Vol] 214.0 mg/dL High 66.0-200.0 [facility] Comment on above: Performed By: #### 1 [id number], [id number], 2182224, 7776510, 8201759, 8567585, 9617305 #### [facility] (DEFAULT) [address] [place] [address] 10485 Cholesterol in HDL [Mass/Vol] 64 mg/dL Normal 40-71 [facility] Comment on above: Performed By: #### 1 [id number], 9100056025, 7271440, 3193779, 2485697, 3752730, 9916787 #### [facility] (DEFAULT) [address] [place] [address] 36739 Cholesterol in LDL [Mass/Vol] 144 mg/dL High 1-100 [facility] Comment on above: Performed By: #### 1 [id number], [id number], 1837072, 3468651, 7549123, 4138206, 7152833 #### [facility] (DEFAULT) [address] [place] [address] 78382 Cholesterol.total/C holesterol in HDL [Mass ratio] 3.3 {ratio} Normal 0.0-4.5 [facility] Comment on above: Performed By: #### 1 [id number], [id number], 6053524, 5431600, 2672779, 7115098, 6174189 #### [facility] (DEFAULT) [address] [place] [address] 66913 Triglyceride [Mass/Vol] 28.0 mg/dL Normal 0.0-150.0 [facility] Comment on above: Performed By: #### 1 [id number], [id number], 5320479, 1985917, 4887642, 5170515, 2247809 #### [facility] (DEFAULT) [address] [place] [address] 02483 VLDL. 6 mg/dL Normal 5-40 [facility] Comment on above: Performed By: #### 1 [id number], 2204391383, 3984703, 8381947, 1048709, 9069839, 5314482 #### [facility] (DEFAULT) [address] [place] [address] 68497 Phoson 02-03-2024 Phosphate [Mass/Vol] 2.9 mg/dL Normal 2.5-4.6 [facility] Comment on above: Performed By: #### 1 [id number], 8007451085, 1508839, 3762091, 7732487, 3975476, 9745570 #### [facility] (DEFAULT) [address] [place] [address] 02028 Uric Acidon 02-03-2024 Urate [Mass/Vol] 4.0 mg/dL Normal 2.6-8.0 [facility] Comment on above: Performed By: #### 1 [id number], [id number], 0985639, 1255948, 7454691, 4516448, 7863594 #### [facility] (DEFAULT) [address] [place] [address] 01365 XR chest 2V*on 03-02-2023 XR chest 2V* [facility] [address] XRay Report Signed Patient: Alondra Sanches MR#: [id number] : 1995 Acct:[id number] Age/Sex: 27 / F ADM Date: 03/02/23 Loc: XDS Room: Type: [facility] Attending Dr: Lisandro Buitrago DO Copies to: Lisandro Buitrago DO Ordering Provider: Lisandro Buitrago DO Date of Service: 03/02/23 XR/XR shoulder LT min 2V*: Left shoulder pain ([id number]) XR/XR chest 2V*: Left shoulder pain;Chest pain [...] Puentes Jr., D.OReese03/02/2023 4:13 PM Dictation Location: [facility] Transcribed By: [facility] 03/02/231612 Dictated By: Terry Puentes Jr, DO 03/02/231611 Signed By: 03/02/231612 Normal [facility] CBC W MANUAL DIFFon 07-29-19 22 ATYPICAL LYMPH # Normal [facility] Comment on above: Performed By: #### C GARRET #### [facility] [address] [place] [address] Dr. Susannah Hopkins ATYPICAL LYMPH % Normal [facility] Comment on above: Performed By: #### C BCOCTAVIANO #### [facility] [address] [place] [address] Dr. Susannah Hopkins BAND # 0.3 103/ul Normal 0.0-0.3 [facility] Comment on above: Performed By: #### C BCOCTAVIANO #### [facility] [address] [place] [address] Dr. Susannah Hopkins BAND % 2 % Normal 0-5 [facility] Comment on above: Performed By: #### C BCMAN #### [facility] [address] [place] [address] Dr. Susannah Hopkins BASOM # 0.00 103/ul Normal 0.00-0.10 [facility] Comment on above: Performed By: #### C BCMAN #### [facility] [address] [place] [address] Dr. Susannah Hopkins BASOM % 0.0 % Critically low 0.2-2.[address] [facility] Comment on above: Performed By: #### C BCOCTAVIANO #### [facility] [address] [address] [address] Susannah Hopkins BLAST # Normal [facility] Comment on above: Performed By: #### C BCMAN #### [facility] [address] [address] [address] Susannah Hopkins BLAST % Normal [facility] Comment on above: Performed By: #### C BCMAN #### [facility] [address] [address] [address] Susannah Hopkins CORRECTED WBC Normal 4.0-11.0 [facility] Comment on above: Performed By: #### C BCMAN #### [facility] [address] [address] [address] Susannah Hopkins EOS # 0.00 103/ul Normal 0.00-0.70 [facility] Comment on above: Performed By: #### C GARRET #### [facility] [address] [place] [address] Dr. Susannah Hopkins EOS% 0.0 % Critically low 0.9-7.0 [facility] Comment on above: Performed By: #### C BCOCTAVIANO #### [facility] [address] [place] [address] Dr. Susannah Hopkins HCT 46.0 % Normal 36.0-48.0 [facility] Comment on above: Performed By: #### C BCOCTAVIANO #### [facility] [address] [place] [address] Dr. Susannah Hopkins HGB 15.7 g/dl Normal 12.0-16.0 [facility] Comment on above: Performed By: #### C BCOCTAVIANO #### [facility] [address] [place] [address] Dr. Susannah Hopkins LYMPHM # 0.69 103/ul Critically low 1.20-3.80 [facility] Comment on above: Performed By: #### C BCMAN #### [facility] [address] [address] [address] Susannah Hopkins LYMPHM% 4.0 % Critically low 20.5-60.0 [facility] Comment on above: Performed By: #### C BCMAN #### [facility] [address] [place] [address] Dr. Susannah Hopkins MCH 30.1 pg Normal 26.7-34.0 [facility] Comment on above: Performed By: #### C GARRET #### [facility] [address] [place] [address] Dr. Susannah Hopkins MCHC 34.1 g/dl Normal 29.9-35.2 [facility] Comment on above: Performed By: #### C GARRET #### [facility] [address] [place] [address] Dr. Susannah oHpkins MCV 88.3 fL Normal 81.0-99.0 [facility] Comment on above: Performed By: #### C GARRET #### [facility] [address] [place] [address] Dr. Susannah Hopkins METAMYELOCYTE # Normal [facility] Comment on above: Performed By: #### C GARRET #### [facility] [address] [place] [address] Dr. Susannah Hopkins METAMYELOCYTE % Normal [facility] Comment on above: Performed By: #### C GARRET #### [facility] [address] [place] [address] Dr. Susannah Hopkins MONOM# 1.20 103/ul Critically high 0.30-0.80 [facility] Comment on above: Performed By: #### C GARRET #### [facility] [address] [place] [address] Dr. Susannah Hopkins MONOM% 7.0 % Normal 1.7-12.0 [facility] Comment on above: Performed By: #### C GARRET #### [facility] [address] [place] [address] Dr. Susannah Hopkins MPV 9.8 fL Normal 9.5-13.5 [facility] Comment on above: Performed By: #### C GARRET #### [facility] [address] [place] [address] Dr. Susannah Hopkins MYELOCYTE # Normal [facility] Comment on above: Performed By: #### C BCMAN #### [facility] [address] [address] [address] Susannah Hopkins MYELOCYTE % Normal [facility] Comment on above: Performed By: #### C BCMAN #### [facility] [address] [address] [address] Susannah Hopkins NRBC Normal [facility] Comment on above: Performed By: #### C BCMAN #### [facility] [address] [address] [address] Susannah Hopkins PLT 278 103/ul Normal 150-450 [facility] Comment on above: Performed By: #### C BCOCTAVIANO #### [facility] [address] [address] [address] Susannah Hopkins RBC 5.21 106/ul Normal 4.20-5.40 [facility] Comment on above: Performed By: #### C BCOCTAVIANO #### [facility] [address] [place] [address] Dr. Susannah Hopkins RDW 11.7 % Normal 11.0-15.0 [facility] Comment on above: Performed By: #### C BCOCTAVIANO #### [facility] [address] [place] [address] Dr. Susannah Hopkins SEG # 14.96 103/ul Critically high 1.40-6.50 [facility] Comment on above: Performed By: #### C BCOCTAVIANO #### [facility] [address] [place] [address] Dr. Susannah Hopkins SEG % 87.0 % Critically high 43.0-75.0 [facility] Comment on above: Performed By: #### C BCMAN #### [facility] [address] [address] [address] Susananh Hopkins WBC 17.2 103/ul Critically high 4.0-11.0 [facility] Comment on above: Performed By: #### C BCMAN #### [facility] [address] [place] [address] Dr. Susannah Hopkins INFLUENZA A AND [facility]on 07[facility] Normal [facility] Comment on above: Result Comment: Nega tive for Flu A protein angiten. Infection due to Flu A cannot be ruled out. Flu A angiten in the sample may be below the detection limit of the test. Performed By: #### I NFLUAB #### [facility] [address] [place] [address] Dr. Susannah Hopkins [facility] SEE BELOW Normal [facility] Comment on above: Result Comment: Nega tive for Flu B protein antigen. Infection due to Flu B cannot be ruled out. Flu B antigen in the sample may be below the detection limit of the test. Performed By: #### I NFLUAB #### [facility] [address] [place] [address] Dr. Susannah Hopkins INFLUENZA A AG Negative Normal NEGATIVE SEE COMMENT [facility] Comment on above: Performed By: #### I NFLUAB #### [facility] [address] [place] [address] Dr. Susannah Hopkins INFLUENZA B AG Negative Normal NEGATIVE SEE COMMENT [facility] Comment on above: Performed By: #### I NFLUAB #### [facility] [address] [place] [address] Dr. Susannah Hopkins INTERNAL CONTROLS Within Normal Limits Normal Within Normal Limits [facility] Comment on above: Performed By: #### I NFLUAB #### [facility] [address] [place] [address] Dr. Susannah Hopkins PREG HCG QUALon 07-28-2021 , QUAL Negative Normal NEGATIVE [facility] Comment on above: Performed By: #### P REG #### [facility] [address] [place] [address] Dr. Susannah Hopkins PROF 14(COMP METB)on 022 Albumin [Mass/Vol] 4.4 g/dL Normal 3.4-5.0 [facility] Comment on above: Performed By: #### C MP #### [facility] [address] [place] [address] Dr. Susannah Hopkins Albumin/Globulin [Mass ratio] 1.1 {ratio} Normal [facility] Comment on above: Performed By: #### C MP #### [facility] [address] [address] [address] Susannah Hopkins ALP [Catalytic activity/Vol] 71 U/L Normal 46-116 [facility] Comment on above: Performed By: #### C MP #### [facility] [address] [address] [address] Susannah Hopkins ALT [Catalytic activity/Vol] 19 U/L Normal 14-59 [facility] Comment on above: Performed By: #### C MP #### [facility] [address] [place] [address] Dr. Susannah Hopkins Anion gap [Moles/Vol] 15.1 mmol/L Normal [facility] Comment on above: Performed By: #### C MP #### [facility] [address] [place] [address] Dr. Susannah Hopkins AST [Catalytic activity/Vol] 23 U/L Normal 15-37 [facility] Comment on above: Performed By: #### C MP #### [facility] [address] [place] [address] Dr. Susannah Hopkins Bilirubin [Mass/Vol] 0.9 mg/dL Normal 0.2-1.3 [facility] Comment on above: Performed By: #### C MP #### [facility] [address] [place] [address] Dr. Susannah Hopkins Calcium [Mass/Vol] 9.5 mg/dL Normal 8.5-10.1 [facility] Comment on above: Performed By: #### C MP #### [facility] [address] [place] [address] Dr. Susannah Hopkins Chloride [Moles/Vol] 101 mmol/L Normal 98-107 [facility] Comment on above: Performed By: #### C MP #### [facility] [address] [place] [address] Dr. Susannah Hopkins CO2 [Moles/Vol] 23.8 mmol/L Normal 22.0-30.0 [facility] Comment on above: Performed By: #### C MP #### [facility] [address] [place] [address] Dr. Susannah Hopkins Creatinine [Mass/Vol] 1.04 mg/dL Normal 0.52-1.04 [facility] Comment on above: Performed By: #### C MP #### [facility] [address] [place] [address] Dr. Susannah Hopkins EGFR-AF MONGOLIAN >60 Normal >=60 [facility] Comment on above: Performed By: #### C MP #### [facility] [address] [address] [address] Susannah Hopkins EGFR-NON AF MONGOLIAN >60 Normal >=60 [facility] Comment on above: Performed By: #### C MP #### [facility] [address] [place] [address] Dr. Susannah Hopkins Globulin (S) [Mass/Vol] 3.9 g/dL Normal [facility] Comment on above: Performed By: #### C MP #### [facility] [address] [place] [address] Dr. Susannah Hopkins Glucose [Mass/Vol] 157 mg/dL Critically high 74-106 [facility] Comment on above: Performed By: #### C MP #### [facility] [address] [place] [address] Dr. Susannah Hopkins Potassium [Moles/Vol] 3.9 mmol/L Normal 3.4-5.0 [facility] Comment on above: Performed By: #### C MP #### [facility] [address] [place] [address] Dr. Susannah Hopkins Protein [Mass/Vol] 8.3 g/dL Critically high 6.1-8.2 [facility] Comment on above: Performed By: #### C MP #### [facility] [address] [place] [address] Dr. Susannah Hopkins Sodium [Moles/Vol] 136 mmol/L Critically low 137-145 [facility] Comment on above: Performed By: #### C MP #### [facility] [address] [place] [address] Dr. Susannah Hopkins Urea nitrogen [Mass/Vol] 20.0 mg/dL Critically high 7.0-18.0 [facility] Comment on above: Performed By: #### C MP #### [facility] [address] [place], [place] [address] Dr. Susannah Hopkins Urea nitrogen/Creatinine [Mass ratio] 19.2 mg/mg Normal [facility] Comment on above: Performed By: #### C MP #### [facility] [address] [place], [place] [address] Dr. Susannah Hokpins Vital Signs Date Time Vital Sign Value Performing Clinician Facility 01-15-2025 09:07-0400 Diastolic blood pressure 72 mm[Hg] Kera Li [employer] Work Phone: [facility] 01-15-2025 09:07-0400 Systolic blood pressure 132 mm[Hg] Kera Jen [employer] TEACHER Work Phone: [facility] 01-15-2025 09:06-0400 Body mass index (BMI) [Ratio] 29.85 kg/m2 Kera Jen [employer] TE[employer]ER Work Phone: [facility] 01-15-2025 09:06-0400 Body weight 76.43 kg Kera Jen [employer] TE[employer]ER Work Phone: [facility] 01-02-2025 08:26-0400 Body mass index (BMI) [Ratio] 28.96 kg/m2 José Blake DO Work Phone: [facility] 01-02-2025 08:26-0400 Body weight 74.16 kg José Blake DO Work Phone: [facility] 01-02-2025 08:26-0400 Diastolic blood pressure 76 mm[Hg] José Blake DO Work Phone: [facility] 01-02-2025 08:26-0400 Systolic blood pressure 120 mm[Hg] José Blake DO Work Phone: [facility] 12-19-2024 09:04-0400 Body mass index (BMI) [Ratio] 28.7 kg/m2 Nadine DE JESUS Work Phone: [facility] 12-19-2024 09:04-0400 Body weight 73.48 kg Nadine Galileo PA Work Phone: [facility] 12-19-2024 09:04-0400 Diastolic blood pressure 78 mm[Hg] Nadine Galileo PA Work Phone: [facility] 12-19-2024 09:04-0400 Systolic blood pressure 104 mm[Hg] Nadine Galileo PA Work Phone: [facility] 12-05-2024 09:23-0400 Body mass index (BMI) [Ratio] 28.52 kg/m2 José Blake DO Work Phone: [facility] 12-05-2024 09:23-0400 Body weight 73.03 kg José Blake DO Work Phone: [facility] 12-05-2024 09:23-0400 Diastolic blood pressure 76 mm[Hg] José Blake DO Work Phone: [facility] 12-05-2024 09:23-0400 Systolic blood pressure 120 mm[Hg] José Blake DO Work Phone: [facility] 11-22-2024 08:52-0400 Body mass index (BMI) [Ratio] 28.19 kg/m2 Nadine Clinton PA Work Phone: [facility] 11-22-2024 08:52-0400 Body weight 72.18 kg Nadine Clinton PA Work Phone: [facility] 11-22-2024 08:52-0400 Diastolic blood pressure 76 mm[Hg] Nadine Clinton PA Work Phone: [facility] 11-22-2024 08:52-0400 Systolic blood pressure 120 mm[Hg] Nadine Galileo PA Work Phone: [facility] 10-26-2024 12:05-0400 Body mass index (BMI) [Ratio] 26.93 kg/m2 José Blake DO Work Phone: [facility] 10-26-2024 12:05-0400 Body weight 68.95 kg José Blake DO Work Phone: [facility] 10-26-2024 12:05-0400 Diastolic blood pressure 68 mm[Hg] José Blake DO Work Phone: [facility] 10-26-2024 12:05-0400 Systolic blood pressure 120 mm[Hg] José Blake DO Work Phone: [facility] 08-29-2024 14:34-0400 Body mass index (BMI) [Ratio] 25.65 kg/m2 José Blake DO Work Phone: [facility] 08-29-2024 14:34-0400 Body weight 65.68 kg José Blake DO Work Phone: [facility] 08-29-2024 14:34-0400 Diastolic blood pressure 72 mm[Hg] José Blake DO Work Phone: [facility] 08-29-2024 14:34-0400 Systolic blood pressure 120 mm[Hg] José Blake DO Work Phone: [facility] 08-10-2024 14:55-0400 Body height 160 cm Noms Nurse [facility] 08-10-2024 14:55-0400 Body mass index (BMI) [Ratio] 25.18 kg/m2 Noms Nurse [facility] 08-10-2024 14:55-0400 Body weight 64.47 kg Noms Nurse [facility] 08-10-2024 14:55-0400 Diastolic blood pressure 76 mm[Hg] Noms Nurse [facility] 08-10-2024 14:55-0400 Systolic blood pressure 120 mm[Hg] Noms Nurse [facility] 05-16-2024 12:44-0500 Body weight 65.32 kg Madeleine Bundy MD Work Phone: [facility] 05-16-2024 12:44-0500 Diastolic blood pressure 78 mm[Hg] Madeleine Bundy MD Work Phone: [facility] 05-16-2024 12:44-0500 Systolic blood pressure 120 mm[Hg] Madeleine Bundy MD Work Phone: [place] [address]-01-2024 15:08-0400 Body weight 66.22 kg Madeleine Bundy MD Work Phone: [facility] 02-08-2024 15:08-0400 Diastolic blood pressure 68 mm[Hg] Madeleine Bundy MD Work Phone: [facility] 02-08-2024 15:08-0400 Systolic blood pressure 130 mm[Hg] Madeleine Bundy MD Work Phone: [facility] 05-12-2023 07:30-0500 Body height 158.75 cm Tyrell Stiles Other [employer] Other 05-12-2023 07:30-0500 Body mass index (BMI) [Ratio] 25.41 kg/m2 Tyrell Stiles Other [employer] Other 05-12-2023 07:30-0500 Body weight 64.05 kg Tyrell Stiles Other [employer] Other 05-12-2023 07:30-0500 Diastolic blood pressure 78 mm[Hg] Tyrell Stiles Other [employer] Other 05-12-2023 07:30-0500 Respiratory rate 16 /min Tyrell Stiles Other [employer] Other 05-12-2023 07:30-0500 SaO2% (BldA) [Mass fraction] 98 % Tyrell Stiles Other [employer] Other 05-12-2023 07:30-0500 Systolic blood pressure 122 mm[Hg] Tyrell Stiles Other [employer] Other 02-24-2023 12:30-0400 Body height 158.75 cm Lisandro Buitrago Other [employer] Other 02-24-2023 12:30-0400 Body mass index (BMI) [Ratio] 25.2 kg/m2 Lisandro Kuns Other [employer] Other 02-24-2023 12:30-0400 Body weight 63.5 kg Lisandro Kuns Other [employer] Other 02-24-2023 12:30-0400 Diastolic blood pressure 85 mm[Hg] Lisandro Kuns Other [employer] Other 02-24-2023 12:30-0400 Respiratory rate 16 /min Lisandro Kuns Other [employer] Other 02-24-2023 12:30-0400 SaO2% (BldA) [Mass fraction] 99 % Lisandro Kuns Other [employer] Other 02-24-2023 12:30-0400 Systolic blood pressure 140 mm[Hg] Lisandro Kuns Other [employer] Other Encounters Encounter Date Encounter Type Care Provider Facility Start: 01-18-2025 End: 01-18-2025 Clinisync Result Encounter José Blake DO Work Phone: [facility] Unsolicited Start: 01-18-2025 End: 01-18-2025 Clinisync Result Encounter José Blake DO Work Phone: [facility] Unsolicited Start: 01-15-2025 End: 01-15-2025 Bamboo flowsheet Kera Li NP Work Phone: [facility] Start: 01-15-2025 End: 01-15-2025 Bamboo flowsheet Kera Li NP Work Phone: [facility] Start: 01-15-2025 End: 01-15-2025 flow sheet Kera Li [employer] TE[employer]ER Work Phone: [facility] Comment on above: Third trimester preg lindsey ([facility]); 34 weeks gestation of ([facility]) Start: 01-15-2025 End: 01-15-2025 ambulatory KERA JEN Not Available Start: 01-08-2025 End: 01-08-2025 Clinisync [...] flowsheet José Blake DO Work Phone: [facility] Start: 01-02-2025 End: 01-02-2025 Bamboo flowsheet José Blake DO Work Phone: [facility] Start: 01-02-2025 End: 01-02-2025 flow sheet José Blake DO Work Phone: [facility] Comment on above: Third trimester preg lindsey ([facility]); 32 weeks gestation of ([facility]); ZULMA (amniotic fluid index) borderline low Start: 01-02-2025 End: 01-02-2025 ambulatory JOSÉ BLAKE Not Available Start: 12-19-2024 End: 12-19-2024 flow sheet Nadine DE JESUS Work Phone: [facility] Comment on above: 30 weeks gestation o f ([facility]); Third trimester ([facility]); HSV infection Start: 12-19-2024 End: 12-19-2024 ambulatory NADINE GALVAN Not Available Start: 12-05-2024 End: 12-05-2024 Bamboo flowsheet José Blake DO Work Phone: [facility] Start: 12-05-2024 End: 12-05-2024 Bamboo flowsheet José Blake DO Work Phone: [facility] Start: 12-05-2024 End: 12-05-2024 flow sheet José Blake DO Work Phone: [facility] Comment on above: Third trimester preg lindsey ([facility]); 28 weeks gestation of ([facility]); HSV infection; size inconsistent with dates ([facility]) Start: 12-05-2024 End: 12-05-2024 ambulatory JOSÉ BLAKE [...] 11-22-2024 End: 11-22-2024 flow sheet Nadine DE JESSU Work Phone: [facility] Comment on above: 26 weeks gestation o f ([facility]); Second trimester ([facility]); Elevated glucose tolerance test Start: 11-22-2024 End: 11-22-2024 ambulatory NADINE GALILEO Not Available Start: 10-26-2024 End: 10-26-2024 ambulatory JOSÉ BLAKE Not Available Start: 10-26-2024 End: 10-26-2024 flow sheet José Blake DO Work Phone: [facility] Comment on above: Second trimester pre gnancy ([facility]); 22 weeks gestation of ([facility]); Diabetes mellitus screening Start: 10-26-2024 End: [...] 9w0d Start: 07-11-2024 End: 07-11-2024 ambulatory JOSÉ LOZANO Not Available Start: 05-16-2024 End: 05-16-2024 Office outpatient visit 15 minutes Madeleine Bundy MD Work Phone: [facility] Comment on above: Hormone imbalance (P rimary Dx); Amenorrhea; Missed menses; Family planning; Thyroid disorder screen Start: 05-16-2024 End: 05-16-2024 ambulatory MADELEINE BUNDY Not Available Start: 03-30-2024 End: 03-30-2024 ambulatory Zita Alanis Facility:[facility] Start: 02-08-2024 End: 02-08-2024 Patient encounter status Madeleine Bundy MD Work Phone: [facility] Start: 02-08-2024 End: 02-08-2024 Periodic preventive med est patient 18-39 yrs Madeleine Bundy MD Work Phone: [facility] Comment on above: Amenorrhea (Primary Dx); Screening for malignant neoplasm of cervix; Encounter for gynecological examination without abnormal finding; Encounter for surveillance of vaginal ring hormonal contraceptive device; Missed menses Start: 02-08-2024 End: 02-08-2024 ambulatory MADELEINE BUNDY Not Available Start: 01-24-2024 End: 01-24-2024 ambulatory Facility:[facility] Start: 05-12-2023 End: 05-12-2023 ambulatory Tyrell Stiles Other [employer] Other Start: 05-12-2023 Office outpatient vi sit 15 minutes Tyrell Stiles [facility] Start: 03-02-2023 End: 03-02-2023 ambulatory Lisandro Buitrago Facility:[facility] Start: 03-02-2023 End: 03-02-2023 ambulatory DO Lisandroteri Buitrago Work Phone: [facility] Work Phone: Start: 03-02-2023 End: 03-02-2023 Patient encounter procedure DO Lisandro Buitrago Work Phone: [facility] Start: 02-24-2023 End: 02-24-2023 ambulatory Lisandro Buitrago Other [employer] Other Start: 02-24-2023 Encounter for genera l adult medical examination without abnormal findings Lisandro Buitrago [facility] [place] Start: 02-24-2023 Office outpatient ne w 30 minutes Lisandro Buitrago [facility] [place] Start: 07-28-2021 End: 07-28-[address] JANES GARCIA Facility: Procedures Date Procedure Procedure Detail Performing Clinician Start: 01-18-2025 US OB BPP W NON-STRESS José Blake DO Work Phone: Start: 01-15-2025 Urnls dip stick/tabl et rgnt non-auto w/o micrscp Kera Li NP Work Phone: Start: 01-08-2025 US OB BPP [...] Start: 03-02-2023 Plain chest X-ray DO Br etmargaux Minna Work Phone: Start: 03-02-2023 Plain X-ray of left shoulder DO Lisandro Minna Work Phone: Plan of Treatment Date Care Activity Detail Author Start: 01-29-2025 End: 01-29-2025 Patient encounter procedure 01/29/2025 8:30 AM EDT Routine [facility] [address] [place] [address] José Lozano DO [address], [place] [id number] [facility] Start: 01-16-2025 End: 01-16-2025 Patient encounter procedure 01/16/2025 8:50 AM EDT Routine [facility] [address] [place] [address] Nadine Galvan PA [address] [place], [place] [id number] [facility] Start: 01-15-2025 End: 01-15-2025 Patient encounter [...] encounter procedure 12/19/2024 8:50 AM EDT Routine [facility] [address] [place] [address] Nadine Galvan PA [address] [place], [facility] Start: 12-19-2024 End: 12-19-2024 Professional / ancillary services management 12/19/2024 8:00 AM EDT Ancillary Procedure [facility] [address] [place] [address] [facility] Start: 12-05-2024 End: 04-07-2025 US for US OB follow up transabdominal approach Imaging Routine size inconsistent with dates ([facility]) Expected: 12/05/2024, Expires: 04/07/2025 [facility] Work Phone: Comment on above: Expected: 12/05/2024 , Expires: 04/07/2025 Start: 12-05-2024 End: 12-05-2024 Patient encounter procedure [facility] Comment on above: Arrived Start: 11-22-2024 End: 11-22-2025 Measurement of glucose 3 hours after glucose challenge for glucose tolerance test Glucose tolerance, 3 hours Lab Routine Elevated glucose tolerance test Expected: 11/22/2024 (Approximate), Expires: 11/22/2025 [facility] Work Phone: Comment on above: Expected: 11/22/2024 (Approximate), Expires: 11/22/2025 Start: 11-22-2024 End: 11-22-2024 Patient encounter procedure 11/22/2024 8:50 AM EDT Routine [facility] [address] [place] [phone] Nadine Galvan PA [address] [place] [address] [place], [place] [phone] [facility] Start: 10-26-2024 End: 10-26-2025 CBC panel - Blood by Automated count CBC Lab Routine Diabetes mellitus screening Expected: 10/26/2024 (Approximate), Expires: 10/26/2025 [facility] Work Phone: Comment on above: Expected: 10/26/2024 (Approximate), Expires: 10/26/2025 Start: 10-26-2024 End: 10-26-2025 Measurement of glucose 1 hour after glucose challenge for glucose tolerance test Glucose tolerance, 1 hour Lab Routine Diabetes mellitus screening Expected: 10/26/2024 (Approximate), Expires: 10/26/2025 [facility] Comment on above: Expected: 10/26/2024 (Approximate), Expires: 10/26/2025 Start: 09-27-2024 End: 09-27-2024 Patient encounter procedure 09/27/2024 3:30 PM EDT Routine [facility] [address] [place] [phone] Nadine Galvan PA [address] [facility] [address] [place], [place] [phone] [facility] Start: 08-29-2024 End: 08-29-2024 Patient encounter procedure [facility] Comment on above: Arrived Start: 07-27-2024 End: 07-27-2024 ambulatory 07/27/2024 10:30 AM EDT Initial [facility] [address] [place] [phone] Madeleine Bundy MD [address] [place] [address] [facility] Start: 07-17-2024 End: 07-17-2024 Patient encounter procedure 07/17/2024 12:30 PM EDT Office Visit [facility] [address] [place] [phone] Madeleine Bundy MD [address] [place] [address] [facility] Start: 07-17-2024 End: 07-17-2024 Professional / ancillary services management 07/17/2024 8:30 AM EDT Ancillary Procedure [facility] [address] [place] [address] [facility] Start: 07-11-2024 End: 07-11-2025 Bacteria identified in Urine by Culture Urine culture Microbiology Routine Encounter for supervision of normal first in first trimester Expected: 07/11/2024, Expires: 07/11/2025 [facility] Comment on above: Expected: 07/11/2024 , Expires: 07/11/2025 Start: 07-11-2024 End: 07-11-2025 BEACON CARRIER SCREEN;14 GENES BEACON CARRIER SCREEN;14 GENES Lab Routine Screening for genetic disease carrier status Expected: 07/11/2024 (Approximate), Expires: 07/11/2025 [facility] Comment on above: Expected: 07/11/2024 (Approximate), Expires: 07/11/2025 Start: 07-11-2024 End: 07-11-2025 Blood type and Indirect antibody screen panel - Blood Type and screen Lab Routine Encounter for supervision of normal first in first trimester Expected: 07/11/2024, Expires: 07/11/2025 [facility] Comment on above: Expected: 07/11/2024 , Expires: 07/11/2025 Start: 07-11-2024 End: 07-11-2025 CBC W Auto Differential panel - Blood CBC and differential Lab Routine Encounter for supervision of normal first in first trimester Expected: 07/11/2024, Expires: 07/11/2025 [facility] Comment on above: Expected: 07/11/2024 , Expires: 07/11/2025 Start: 07-11-2024 End: 07-11-2025 DRUG SCREEN 17 W/CONF, UR DRUG SCREEN 17 W/CONF, UR Lab Routine Encounter for drug screening Expected: 07/11/2024, Expires: 07/11/2025 [facility] Comment on above: Expected: 07/11/2024 , Expires: 07/11/2025 Start: 07-11-2024 End: 07-11-2025 Hepatitis B virus surface Ag [Presence] in Serum or Plasma by Immunoassay Hepatitis B surface antigen Lab Routine Encounter for supervision of normal first in first trimester Expected: 07/11/2024, Expires: 07/11/2025 [facility] Comment on above: Expected: 07/11/2024 , Expires: 07/11/2025 Start: 07-11-2024 End: 07-11-2025 Hepatitis C virus Ab [Presence] in Serum or Plasma by Immunoassay Hepatitis C antibody Lab Routine Encounter for supervision of normal first in first trimester Expected: 07/11/2024, Expires: 07/11/2025 [facility] Comment on above: Expected: 07/11/2024 , Expires: 07/11/2025 Start: 07-11-2024 End: 07-11-2025 HIV-1/HIV-2 antigen/antibody combination immunoassay HIV-1 and HIV-2 antibodies Lab Routine Encounter for supervision of normal first in first trimester Expected: 07/11/2024, Expires: 07/11/2025 [facility] Comment on above: Expected: 07/11/2024 , Expires: 07/11/2025 Start: 07-11-2024 End: 07-11-2025 [id number] PLUS Core+SCA [id number] PLUS Core+SCA Lab Routine Encounter for screening for chromosomal anomalies Expected: 07/11/2024 (Approximate), Expires: 07/11/2025 [facility] Comment on above: Expected: 07/11/2024 (Approximate), Expires: 07/11/2025 Start: 07-11-2024 End: 07-11-2025 Reagin Ab [Presence] in Serum by RPR RPR Lab Routine Encounter for supervision of normal first in first trimester Expected: 07/11/2024, Expires: 07/11/2025 [facility] Comment on above: Expected: 07/11/2024 , Expires: 07/11/2025 Start: 07-11-2024 End: 07-11-2025 Rubella antibody, IgG Rubella antibody, IgG Lab Routine Encounter for supervision of normal first in first trimester Expected: 07/11/2024, Expires: 07/11/2025 [facility] Comment on above: Expected: 07/11/2024 , Expires: 07/11/2025 Start: 07-11-2024 End: 07-11-2025 Urinalysis complete panel - Urine Urinalysis with microscopic Lab Routine Encounter for supervision of normal first in first trimester Expected: 07/11/2024, Expires: 07/11/2025 [facility] Work Phone: Comment on above: Expected: 07/11/2024 , Expires: 07/11/2025 Start: 05-16-2024 End: 05-16-2025 Cortisol Cortisol Lab Routine Hormone imbalance Expected: 05/16/2024, Expires: 05/16/2025 [facility] Comment on above: Expected: 05/16/2024 , Expires: 05/16/2025 Start: 05-16-2024 End: 05-16-2025 DHEA-sulfate DHEA-sulfate Lab Routine Hormone imbalance Expected: 05/16/2024, Expires: 05/16/2025 [facility] Comment on above: Expected: 05/16/2024 , Expires: 05/16/2025 Start: 05-16-2024 End: 05-16-2025 Estradiol Estradiol Lab Routine Hormone imbalance Expected: 05/16/2024, Expires: 05/16/2025 [facility] Comment on above: Expected: 05/16/2024 , Expires: 05/16/2025 Start: 05-16-2024 End: 05-16-2025 Estrone Estrone Lab Routine Hormone imbalance Expected: 05/16/2024, Expires: 05/16/2025 [facility] Comment on above: Expected: 05/16/2024 , Expires: 05/16/2025 Start: 05-16-2024 End: 05-16-2025 Follicle stimulating hormone Follicle stimulating hormone Lab Routine Hormone imbalance Thyroid disorder screen Expected: 05/16/2024, Expires: 05/16/2025 [facility] Comment on above: Expected: 05/16/2024 , Expires: 05/16/2025 Start: 05-16-2024 End: 05-16-2025 Insulin, fasting Insulin, fasting Lab Routine Amenorrhea Missed menses Hormone imbalance Expected: 05/16/2024, Expires: 05/16/2025 [facility] Comment on above: Expected: 05/16/2024 , Expires: 05/16/2025 Start: 05-16-2024 End: 05-16-2025 Luteinizing hormone Luteinizing hormone Lab Routine Hormone imbalance Thyroid disorder screen Expected: 05/16/2024, Expires: 05/16/2025 [facility] Comment on above: Expected: 05/16/2024 , Expires: 05/16/2025 Start: 05-16-2024 End: 05-16-2025 Progesterone Progesterone Lab Routine Hormone imbalance Expected: 05/16/2024, Expires: 05/16/2025 [facility] Comment on above: Expected: 05/16/2024 , Expires: 05/16/2025 Start: 05-16-2024 End: 05-16-2025 Sex hormone binding globulin Sex hormone binding globulin Lab Routine Hormone imbalance Expected: 05/16/2024, Expires: 05/16/2025 [facility] Comment on above: Expected: 05/16/2024 , Expires: 05/16/2025 Start: 05-16-2024 End: 05-16-2025 Testosterone, free, total Testosterone, free, total Lab Routine Hormone imbalance Expected: 05/16/2024, Expires: 05/16/2025 [facility] Comment on above: Expected: 05/16/2024 , Expires: 05/16/2025 Start: 05-16-2024 End: 05-16-2025 Thyrotropin [Units/volume] in Serum or Plasma TSH Lab Routine Hormone imbalance Thyroid disorder screen Expected: 05/16/2024, Expires: 05/16/2025 [facility] Work Phone: Comment on above: Expected: 05/16/2024 , Expires: 05/16/2025 Start: 05-16-2024 End: 05-16-2025 Vitamin D 1,25 dihydroxy Vitamin D 1,25 dihydroxy Lab Routine Hormone imbalance Expected: 05/16/2024, Expires: 05/16/2025 [facility] Comment on above: Expected: 05/16/2024 , Expires: 05/16/2025 Start: 05-16-2024 End: 05-16-2024 Patient encounter procedure 05/16/2024 12:30 PM EST Office Visit [facility] [address] [place] [phone] Madeleine Bundy MD [address] [place] [address] [facility] Start: 02-08-2024 End: 02-07-2025 Follicle stimulating hormone Follicle stimulating hormone Lab Routine Amenorrhea Expected: 02/08/2024 (Approximate), Expires: 02/07/2025 [facility] Comment on above: Expected: 02/08/2024 (Approximate), Expires: 02/07/2025 Start: 01-09-2024 Influenza vaccination Influenza Vacc ine (#1) [facility] hCG, qualitative hCG, qualitativ e Lab Routine Amenorrhea Ordered: 02/08/2024 [facility] Comment on above: Ordered: 02/08/2024 Hemoglobin A1c/Hemoglobin.total in Blood Hemoglobin A1c Lab Routine with uncertain dates, antepartum Ordered: 08/10/2024 [facility] Work Phone: Comment on above: Ordered: 08/10/2024 Luteinizing hormone Luteinizing hormone Lab Routine Amenorrhea Ordered: 02/08/2024 [facility] Comment on above: Ordered: 02/08/2024 Progesterone Progesterone Lab Routine Amenorrhea Ordered: 02/08/2024 [facility] Comment on above: Ordered: 02/08/2024 SENDOUT TEST MISCELLANEOUS [facility] SENDOUT TEST MISCELLANEOUS [facility] Lab Routine Screening for malignant neoplasm of cervix Encounter for gynecological examination without abnormal finding Ordered: 02/08/2024 [facility] Work Phone: Comment on above: Ordered: 02/08/2024 Testosterone, free, total Testosterone, free, total Lab Routine Amenorrhea Ordered: 02/08/2024 [facility] Comment on above: Ordered: 02/08/2024 Immunizations Immunization Date Immunization Notes Care Provider Fa kavin 09-25-2020 COVID-19 Vaccine Moderna - Documentation Purposes Only Lisandro Buitrago Other [employer] Other 08-21-2020 COVID-19 Vaccine Moderna - Documentation Purposes Only Lisandro Buitrago Other [employer] Other Payers Date Payer Category Payer Unknown [id number] 2023 Private Health Insurance [id number] 2023 Private Health Insurance [id number] 2023 Unknown [id number] 2. [id number] 1995 Unknown [id number] 2.16.84 0.1.601819.3.579.2.593 1995 Unknown [id number] 2.16.8 40.1.158289.3.579.2.718 1995 Unknown [id number] 2.16.8 40.1.706654.3.579.2.1259 1995 Unknown [id number] 2.16.8 40.1.560284.3.579.2.1259 1995 Unknown [id number] 2.16.8 40.1.614254.3.579.2.1259 1995 Unknown [id number] 2.16.8 40.1.506937.3.579.2.9 1995 Unknown [id number] 2.16.8 40.1.420216.3.579.2.1258 1995 Unknown [id number] 2.16.8 40.1.101948.3.579.2.1258 1995 Unknown [id number] 2.16.8 40.1.475966.3.579.2.1258 1995 Unknown [id number] 2.16.8 40.1.493929.3.579.2.1258 1995 Unknown [id number] 2.16.84 0.1.475288.3.579.2.1258 1995 Unknown [id number] 2.16.84 0.1.206930.3.579.2.9 1995 Unknown [id number] 2.16.84 0.1.849324.3.579.2.1258 1995 Unknown [id number] 2.16.84 0.1.969036.3.579.2.1258 1995 Unknown [id number] 2.16.84 0.1.648490.3.579.2.1258 1995 Unknown [id number] 2.16.84 0.1.756144.3.579.2.9 1995 Unknown [id number] 2.16.84 0.1.423408.3.579.2.1259 1959 Self-pay Unknown [id number] [id number] Unknown [id number] 2.16.8 [id number] Social History Date Type Detail Facility Start: 02-08-2024 End: 05-16-2024 Sex Assigned At [facility] [employer] Other Start: 1995 Sex Assigned At Female [facility] Start: 05-15-2023 Tobacco smoking stat us NHIS Never smoked tobacco [facility] Start: 05-15-2023 [...] nursing note reviewed. Exam conducted with a junior database administrator present. Vitals: Estimated body mass index is 29.85 kg/m as calculated from the following: Height as of 08/10/24: 5' 3 . Weight as of this encounter: 168 lb 8 oz. BP: 132/72 Patient's last menstrual period was 05/09/2024 (exact date). ASSESSMENT & PLAN ICD-10-CM 1. Third trimester ([facility]) Z34.93 POCT urinalysis dipstick manually resulted 2. 34 weeks gestation of ([facility]) Z3A.34 Patient presents today for a routine [...] Kera Li NP documented in this encounter [facility] 01-02-2025 History of Presen t illness Narrative [...] Grandmother Gilda Walp Lung cancer Paternal Grandmother Mademarthan Walp Colon cancer Paternal Grandfather Skyler Walp [...] nursing note reviewed. Exam conducted with a junior database administrator present. Vitals: Estimated body mass index is 28.96 kg/m as calculated from the following: Height as of 08/10/24: 5' 3 . Weight as of this encounter: 163 lb 8 oz. BP: 120/76 Patient's last menstrual period was 05/09/2024 (exact date). ASSESSMENT & PLAN ICD-10-CM 1. Third trimester ([facility]) Z34.93 POCT urinalysis dipstick manually resulted 2. 32 weeks gestation of ([facility]) Z3A.32 Return OB: Patient presents [...] José Lozano DO documented in this encounter [facility] 12-19-2024 History of Presen t illness Narrative [...] Grandfather Kwan Welchy Breast cancer Paternal Grandmother iGlda Felixp Lung cancer Paternal Grandmother Gilda Felixp [...] PLAN ICD-10-CM 1. 30 weeks gestation of ([facility]) Z3A.30 POCT urinalysis dipstick manually resulted 2. Third trimester ([facility]) Z34.93 POCT urinalysis dipstick manually resulted [...] of: LIZA Zaldivar documented in this encounter [facility] 12-05-2024 History of Presen t illness Narrative [...] Gilda Sanches Colon cancer Paternal Grandfather Skyler Walp Cancer [...] nursing note reviewed. Exam conducted with a junior database administrator present. Vitals: Estimated body mass index is 28.52 kg/m as calculated from the following: Height as of 08/10/24: 5' 3 . Weight as of this encounter: 161 lb. BP: 120/76 Patient's last menstrual period was 05/09/2024 (exact date). ASSESSMENT & PLAN ICD-10-CM 1. Third trimester ([facility]) Z34.93 CANCELED: POCT urinalysis dipstick manually resulted 2. 28 weeks gestation of ([facility]) Z3A.28 3. 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 size inconsistent with dates ([facility]) O26.849 US OB follow up transabdominal [...] José Lozano DO documented in this encounter [facility] 11-22-2024 History of Presen t illness Narrative [...] Esmer Walp Polycystic ovary syndrome Mother Esmer Felixp Thyroid disease Mother Esmer Walshane Polycystic ovary [...] PLAN ICD-10-CM 1. 26 weeks gestation of ([facility]) Z3A.26 POCT urinalysis dipstick manually resulted 2. Second trimester ([facility]) Z34.92 POCT urinalysis dipstick manually [...] of: LIZA Zaldivar documented in this encounter [facility] 10-26-2024 History of Presen t illness Narrative [...] ASSESSMENT & PLAN ICD-10-CM 1. Second trimester ([facility]) Z34.92 POCT urinalysis dipstick manually resulted 2. 22 weeks gestation of ([facility]) Z3A.22 3. Diabetes mellitus screening Z13.1 [...] José Lozano DO documented in this encounter [facility] 08-29-2024 History of Presen t illness Narrative [...] Esmer Walshane Polycystic ovary syndrome Mother Esmer Walshane Thyroid disease Mother Esmer Walshane Polycystic ovary syndrome Sister Breast cancer Maternal Grandmother Maricarmen Potts Hypothyroidism Maternal Grandfather Kwan Swineivonne Thyroid disease Maternal Grandfather Kwan Welchy Breast [...] nursing note reviewed. Exam conducted with a junior database administrator present. Vitals: Estimated body mass index is 25.18 kg/m as calculated from the following: Height as of 4/3/25: 5' 3 . Weight as of 08/10/24: [...] or undercooked meat, and stay away from [facility]. Patient has been consulted regarding any further do's and don'ts of . Patient voiced understanding and all questions and concerns were answered. Orders Placed This Encounter Procedures POCT urinalysis dipstick manually resulted Follow Up: Patient is to return in 4 weeks for routine OB appointment. Documented by Zita Borrego LPN on behalf of: José Lozano DO documented in this encounter [facility] 08-10[facility] History of Presen t illness Narrative [...] or undercooked meat, and stay away from [facility]. Patient has also been advised to not change litter boxes and eat 6 small meals a day. Patient has been consulted regarding the do's and don'ts of . Patient was given labs and all questions and concerns were answered. Patient was given [place] labs to be completed with Hgb A1C. Follow Up: Patient is to return in 4 weeks for routine OB appointment. Follow Up: Patient is to have labs drawn at directed and return to office for initial OB appointment with provider. Patient may call office as needed with any concerns or questions. Nurse Visit Completed by: Domenica Jacinto LPN documented in this encounter [facility] 07-11-[facility]24 History of Presen t illness Narrative [...] Paternal Grandfather Skyler Felixp Cancer Paternal Grandfather Skyelr Sanches Social History reports that she has [...] 07/11/2024 10:03 AM documented in this encounter [facility] 05-16-2024 History of Presen t illness Narrative Images from the original note were not included. Madeleine Bundy MD Obstetrics and Gynecology Patient: Alondra Beaver : 1995 (28 y.o.) Exam Date: 05/16/2024 Reason for Visit - Chief Complaint Patient presents with Follow-up Follow up for Amenorrhea, missed menses, and family planning. Stopped EluRyng in 10/2023. 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 Exam conducted with a junior database administrator present. Assessment/Plan ICD-10-CM 1. Amenorrhea N91.2 2. [...] Madeleine Bundy MD documented in this encounter [facility] 05-16-2024 Instructions Madeleine Bundy MD - 05/16/2024 [...] routine infertility test. documented in this encounter [facility] 02-08-2024 History of Presen t illness Narrative [...] Madeleine Bundy MD documented in this encounter [facility] 05-12-2023 Evaluation note Encounter Date Diagnosis Assessment [...] and trigger point injections can be done. [employer] Other 10-18-2023 Evaluation note* Encounter Date Diagnosis Assessment Notes Treatment Notes Treatment Clinical Notes Feb, Encounter to establish care (ICD-10 - Z76.89) Patient appears to be in good health upon examination. She is here to establish care for annual physcial for her employment. 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 Feb, Wellness examination (ICD-10 - Z00.00) [...] Stress test ordered to rule out abnormalities. [employer] Other Evaluation noteNo assessment information available [facility] Work Phone: Evaluation note* Diagnosis [...] Date Medical History Left elbow dislocation 2011 [employer] Other Summary Purpose Family History No Family [...] content) DATE CREATED AUTHOR 07/30/2021 [facility] DATE CREATED AUTHOR AUTHOR'S ORGANIZ ATION 05/24/[address] [facility] DATE CREATED AUTHOR AUTHOR'S ORGANIZ ATION 02/20/2024 [facility] DATE CREATED AUTHOR AUTHOR'S ORGANIZ ATION 01/10/2025 [facility] DATE CREATED AUTHOR AUTHOR'S ORGANIZ ATION 01/16/2025 [facility] d[facility] Specialists EPIC REASON FOR VISIT (unrecogniz ed section and content) Reason Comments Gynecologic Exam Reason Comments Follow-up Reason Comments Initial Visit Nurse Visit Reason Comments Amenorrhea Reason Comments Routine Visit Care Teams (unrecognized sec tion and content) Team Status: Inactive Member Role Status Dates Lisandro Buitrago DO Attending Provider Active Attendant Child Activity Relationship Specialty Start Date End Date Unallocated, Torrey Horn MD [facility] [place] [address] PCP - General Family Medicine 06/23/23 Attendant Child Activity Relationship Specialty Start Date End Date Unallocated, Torrey Horn MD [facility] [address] [facility] [place] [address] PCP - General Family Medicine 06/23/23 Attendant Child Activity Relationship Specialty Start Date End Date Unallocated, Torrey Horn MD [facility] [address] [facility] [place] [address] PCP - General Family Medicine 06/23/23 Attendant Child Activity Relationship Specialty Start Date End Date Unallocated, Torrey Horn MD [facility] [address] [facility] [place] [place] [address] PCP - General Family Medicine 06/23/23 Attendant Child Activity Relationship Specialty Start Date End Date Unallocated, Torrey Horn MD [facility] [address] [facility] [place] [place] [address] PCP - General Family Medicine 06/23/23 Attendant Child Activity Relationship Specialty Start Date End Date Unallocated, Torrey Horn MD [facility] [address] [facility] [place] [address] PCP - General Family Medicine 06/23/23 Attendant Child Activity Relationship Specialty Start Date End Date Unallocated, Torrey Horn MD [facility] [place] [address] PCP - General Family Medicine 06/23/23 Attendant Child Activity Relationship Specialty Start Date End Date Unallocated, Torrey Horn MD [address] [facility] [place] [address] PCP - General Family Medicine 06/23/23 Attendant Child Activity Relationship Specialty Start Date End Date Unallocated, Torrey Horn MD [address] [facility] [place] [address] PCP - General Family Medicine 06/23/23 Attendant Child Activity Relationship Specialty Start Date End Date Unallocated, Torrey Horn MD [address] [facility] [place] [address] PCP - General Family Medicine 06/23/23 Attendant Child Activity Relationship Specialty Start Date End Date Unallocated, Torrey Horn MD [address] [facility] [place] [address] PCP - General Family Medicine 06/23/23 Goals [...] BE BASED ON THE PRIMARY CLINICAL RECORDS. [facility]. provides no warranty or guarantee of the accuracy or completeness of information in this document.
[2025-01-25 07:21] VITALS: BP 134/70; PULSE 90
== END 2025-01-25 07:52 | disposition home or self-care (01) ==
LOC: US 06:57 → FBC 06:58
PROVIDERS: PCP Family Medicine; Visit Provider Obstetrics & Gynecology
DX: O26.893 Other specified pregnancy related conditions, third trimester (principal); Z3A.35 35 weeks gestation of pregnancy
CPT/HCPCS: 76818

== ENCOUNTER 2025-01-29 12:09 | Outpatient (REF) | payer OTHER, SELFPAY ==
--- OUTSIDE RECORDS SUMMARY | 2025-01-29 12:16 | XMS_ITS | CCD ---
Author Organization [facility] Care Team Providers Care Provider Enrollment Specialist Name Role Phone DR JANES GARCIA Admitting Unavailable JOSE, DR JANES Escobar Attending Unavailable REQUEST, NONE LISTED Primary Care Unavaila verna GARCIA, DR JANES Escobar Consulting Unavailable Lisandro Buitrago Unavailable DO Lisandro Buitrago Attending Provider Tyrell Stiles Unavailable Lisandro Buitrago Attending Unavailable Lisandro Buitrago Admitting Unavailable Unallocated MD, [place] Provider Primary Care Provi ulysses JOSÉ LOZANO Attending Unavailable NADINE GALVAN Attending Unavailable MADELEINE BUNDY Attending Unavailable BLAKE, JOSÉ Attending Unavailable NADINE GALVAN Attending Unavailable BLAKE, JOSÉ Attending Unavailable JOSÉ LOZANO Referring Unavailable NADINE GALVAN Attending Unavailable JOSÉ LOZANO Attending Unavailable KERA LI Attending Unavailable MADELEINE BUNDY Attending Unavailable Zita Alanis Attending Unavailable Zita [...] 08/21/2024 08/29/2024 Discontinued 21 day ethinyl estradiol 0.944591 mg/hr / etonogestrel 0.005 mg/hr vaginal system [...] shoulder] Episodic Other and delivery including normal (20 sources) Normal ; Translations: [Encounter for supervision [...] [34 weeks gestation of ] 01-15-2025 Episodic Residual codes; unclassified (2 sources) Gestation period, 36 weeks; Translations: [36 weeks gestation of ] 01-29-2025 Episodic Sprains and strains (1 source) Strain [...] Range Facility Urinalysis macro (dipstick) panel (U)on 01-29-2025 Bilirubin, UA Negative Negative - 4(70) +++ mg/dL [facility] Blood, UA Negative Negative - 50 Mark/mcL [facility] Clarity, UA Clear [facility] Color, UA Yellow [facility] Glucose, UA Negative Negative - 1999(110) ++++ mg/dL [facility] Interpretation and review of laboratory results Abnormal [facility] Ketones, UA Negative Negative - 160(16) ++++ mg/dL [facility] Leukocytes, UA Positive Negative - 500+++ Mahsa/mcL [facility] Comment on above: 3+ Nitrite, UA Negative Negative - Positive [facility] pH, UA 7 5 - 9 [facility] Protein, UA Negative Negative - 1999(20) ++++ mg/dL [facility] Spec Grav, UA 1.01 1 - 1.03 [facility] Urobilinogen, UA 0.2 0.2 - 12 mg/dL [facility] Rad - Other Radiology Report on 01-26-2025 Rad - Other Radiology Report [id number] #1.00OTGTIFF [facility] US OB BPP W NON-STRESS on 01-25-[address] [address] Ultrasound Report Signed Patient: ALONDRA BEAVER MR#: [id number] : 1995 Acct:[id number] Age/Sex: 29 / F ADM Date: 01/25/25 Loc: US Attending Dr: José Lozano D.O. Ordering Physician: José Lozano D.O. Date of Service: 01/25/25 Procedure(s): US OB BPP w non-stress Accession Number(s): [id number] cc: José Lozano D.O.; Zita Alanis M.D. [address] [address] Patient Name: ALONDRA BEAVER MRN: [facility]:[id number] date: 1995 Sex: F Assigned Patient Location: [facility] Current Patient Location: Accession/Order Number: [id number] Exam Date: 01/25/2025 07:01 Report Date: 01/25/2025 08:50 At the request of: JOSÉ LOZANO DO Procedure: US OB BPP w non-stress BIOPHYSICAL PROFILE: CLINICAL INFORMATION: BORDERLINE LOW AMNIOTIC FLUID COMPARISON: 01/18/2025 There is a single live intrauterine gestation in cephalic presentation. The reported gestational age is 35 weeks 3 days. The heart rate measures 144 beats per minute. FINDINGS: TONE: 1 or [...] greater than 2 cm [Y] 2/2 ZULMA: 13.05 cm. This is in low-normal range. Total score: 8/8 US/US OB BPP w non-stress IMPRESSION: NORMAL BIOPHYSICAL PROFILE Impression dictated by: Zita Lu M.D. 01/25/2025 8:50 AM Dictation Location: [place] [address] Electronically authenticated by: [id number] Y Date: 01/25/2025 08:50 Dictated By: Zita Lu M.D. Signed By: 01/25/25 0852 DD/ 0850 TD/TT: Field Interviewer: [facility] Radiology, Radiologist, MD - 01/25/2025 [place] [address] Ultrasound Report Signed Patient: ALONDRA BEAVER MR#: [id number] : 1995 Acct:[id number] Age/Sex: 29 / F ADM Date: 01/25/25 Loc: US Attending Dr: José Lozano D.O. Ordering Physician: José Lozano D.O. Date of Service: 01/25/25 Procedure(s): US OB BPP w non-stress Accession Number(s): [id number] cc: José Lozano D.O.; Zita Alanis M.D. [place] [address] Patient Name: ALONDRA BEAVER MRN: [id number] date: 1995 Sex: F Assigned Patient Location: [facility] Current Patient Location: Accession/Order Number: [id number] Exam Date: 01/25/2025 07:01 Report Date: 01/25/2025 08:50 At the request of: JOSÉ LOZANO DO Procedure: US OB BPP w non-stress BIOPHYSICAL PROFILE: CLINICAL INFORMATION: BORDERLINE LOW AMNIOTIC FLUID COMPARISON: 01/18/2025 There is a single live intrauterine gestation in cephalic presentation. The reported gestational age is 35 weeks 3 days. The heart rate measures 144 beats per minute. FINDINGS: TONE: 1 or [...] greater than 2 cm [Y] 2/2 ZULMA: 13.05 cm. This is in low-normal range. Total score: 8/8 US/US OB BPP w non-stress IMPRESSION: NORMAL BIOPHYSICAL PROFILE Impression dictated by: Zita Lu M.D. 01/25/2025 8:50 AM Dictation Location: [place] [address] Electronically authenticated by: [id number] Y Date: 01/25/2025 08:50 Dictated By: Zita Lu M.D. Signed By: 01/25/25 0852 DD/ TD/TT: Field Interviewer: [facility] Radiology Study observation (narrative) [facility] OB BPP W NON-STRESS Ordered By: Radiologist Radiology on 01-25-2025 [facility] Work Phone: US OB BPP W NON-STRESS on 01-18-[address] [address] Ultrasound Report Signed Patient: ALONDRA BEAVER MR#: [id number] : 1995 Acct:[id number] Age/Sex: 29 / F ADM Date: 01/18/25 Loc: US Attending Dr: José Lozano D.O. Ordering Physician: José Lozano D.O. Date of Service: 01/18/25 Procedure(s): US OB BPP w non-stress Accession Number(s): [id number] cc: José Lozano D.O.; Zita Alanis M.D. The [place] [address] Patient Name: ALONDRA BEAVER MRN: [id number] date: 1995 Sex: F Assigned Patient Location: [facility] Current Patient Location: Accession/Order Number: [id number] Exam Date: 01/18/2025 07:04 Report Date: 01/18/2025 [...] Lu M.D. 01/18/2025 8:45 AM Dictation Location: [place] Electronically authenticated by: [id number] Y Date: 01/18/2025 08:45 Dictated By: Zita Lu M.D. Signed By: 01/18/2548 DD/ 4 TD/TT: Field Interviewer: [facility] Radiology, Radiologist, - 01/18/2025 [place] [address] Ultrasound Report Signed Patient: ALONDRA BEAVER MR#: [id number] : 1995 Acct:[id number] Age/Sex: 29 / F ADM Date: 01/18/25 Loc: US Attending Dr: José Lozano D.O. Ordering Physician: José Lozano D.O. Date of Service: 01/18/25 Procedure(s): US OB BPP w non-stress Accession Number(s): [id number] cc: José Lozano D.O.; Zita Alanis M.D. The [place] [address] Patient Name: ALONDRA BEAVER MRN: [facility]:[id number] date: 1995 Sex: F Assigned Patient Location: [facility] Current Patient Location: US Accession/Order Number: [id number] Exam Date: 01/18/2025 07:04 Report Date: 01/18/2025 [...] This is in low-normal range. Total score: 8/8 US/US OB BPP w non-stress IMPRESSION: NORMAL BIOPHYSICAL PROFILE Impression dictated by: Zita Lu M.D. 01/18/2025 8:45 AM Dictation Location: [employer] Electronically authenticated by: [id number] Y Date: 01/18/2025 08:45 Dictated By: Zita Lu M.D. Signed By: 01/18/2548 DD/ 4 TD/TT: Field Interviewer: [facility] Radiology Study observation (narrative) [facility] US OB BPP W NON-STRESS Ordered By: Radiologist Radiology on 01-18-2025 [facility] Work Phone: Urinalysis macro (dipstick) panel (U)on 01-15-2025 Bilirubin, UA Negative Negative - 4(70) +++ mg/dL [facility] Blood, UA Negative Negative - 50 Mark/mcL [facility] Clarity, UA Clear [facility] Color, UA Yellow [facility] Glucose, UA Negative Negative - 1999(110) ++++ mg/dL [facility] Interpretation and review of laboratory results Abnormal [facility] Ketones, UA Negative Negative - 160(16) ++++ mg/dL [facility] Leukocytes, UA Positive Negative - 500+++ Mahsa/mcL [facility] Comment on above: 1+ Nitrite, UA Negative Negative - Positive [facility] pH, UA 6 5 - 9 [facility] Protein, UA Negative Negative - 2000(20) ++++ mg/dL [facility] Spec Grav, UA 1.02 1 - 1.03 [facility] Urobilinogen, UA 0.2 0.2 - 12 mg/dL [facility] Outside Recordson 01-09-2025 Outside Records [id number] 432[facility] [id number] 16#1.00OTGTIFF [facility] US OB BPP W NON-STRESS on 01-08-2025 The [place] [id number] Ultrasound Report Signed Patient: ALONDRA BEAVER MR#: [id number] : 1995 Acct:[id number] Age/Sex: 29 / F ADM Date: 01/08/25 Loc: US Attending Dr: José Lozano D.O. Ordering Physician: José Lozano D.O. Date of Service: 01/08/25 Procedure(s): US OB BPP w non-stress Accession Number(s): [id number] cc: José Lozano D.O.; Zita Alanis M.D. The [address] [address] Patient Name: ALONDRA BEAVER MRN: [facility]:[id number] date: 1995 Sex: F Assigned Patient Location: US [place] [facility] [place]/Order Number: [id number] Exam Date: 01/08/2025 12:03 Report Date: 01/08/2025 12:44 At the request of: JOSÉ LOZANO DO Procedure: US OB BPP w non-stress Biophysical profile. Reason for exam: Abnormal BPP. COMPARISON: 01/04/2025 TECHNIQUE: Transabdominal imaging of the gravid uterus was obtained. FINDINGS: The [employer] reports a BPP of 8 out of 8. ZULMA is normal at 14.8 cm. heart rate 135 bpm. US/US OB BPP w non-stress IMPRESSION: BPP 8 out of 8. Impression dictated by: Terry Puentes Jr., D.O. 01/08/2025 12:44 PM Dictation Location: [place] [address] Electronically authenticated by: [id number] Y Date: 01/08/2025 12:44 Dictated By: Terry Puentes M.D. Signed By: 01/08/25 1246 DD/ 1244 TD/TT: Field Interviewer: [facility] Radiology, Radiologist, - 01/08/2025 The [place] [id number] Ultrasound Report Signed Patient: ALONDRA BEAVER MR#: [id number] : 1995 Acct:[id number] Age/Sex: 29 / F ADM Date: 01/08/25 Loc: US Attending Dr: José Lozano D.O. Ordering Physician: José Lozano D.O. Date of Service: 01/08/25 Procedure(s): US OB BPP w non-stress Accession Number(s): [id number] cc: José Lozano D.O.; Zita Alanis M.D. [place] [address] Patient Name: ALONDRA BEAVER MRN: [id number] date: 1995 Sex: F Assigned Patient Location: US Current [place] [facility] [place]ion/Order Number: [id number] Exam Date: 01/08/2025 12:03 Report Date: 01/08/2025 12:44 At the request of: JOSÉ LOZANO DO Procedure: US OB BPP w non-stress Biophysical profile. Reason for exam: Abnormal BPP. COMPARISON: 01/04/2025 TECHNIQUE: Transabdominal imaging of the gravid uterus was obtained. FINDINGS: The [employer] reports a BPP of 8 out of 8. ZULMA is normal at 14.8 cm. heart rate 135 bpm. US/US OB BPP w non-stress IMPRESSION: BPP 8 out of 8. Impression dictated by: Terry Puentes Jr., D.O. 01/08/2025 12:44 PM Dictation Location: [place] [address] Electronically authenticated by: [id number] Y Date: 01/08/2025 12:44 Dictated By: Terry Puentes M.D. Signed By: 01/08/25 1246 DD/ 1244 TD/TT: Field Interviewer: [facility] Radiology Study observation (narrative) [facility] US OB BPP W NON-STRESS Ordered By: Radiologist Radiology on 01-08-2025 [facility] Work Phone: US OB BPP W NON-STRESS on 01-04-[address] [address] Ultrasound Report Signed Patient: ALONDRA BEAVER MR#: [id number] : 1995 Acct:[id number] Age/Sex: 29 / F ADM Date: 01/04/25 Loc: US Attending Dr: José Lozano D.O. Ordering Physician: José Lozano D.O. Date of Service: 01/04/25 Procedure(s): US OB BPP w non-stress Accession Number(s): [id number] cc: José Lozano D.O.; Zita Alanis M.D. The [place] [id number] Patient Name: ALONDRA BEAVER MRN: [id number] date: 1995 Sex: F Assigned Patient Location: [facility] Current Patient Location: Accession/Order Number: [id number] Exam Date: 01/04/2025 07:10 Report Date: 01/04/2025 10:27 At the request of: JOSÉ LOZANO DO Procedure: US OB BPP w non-stress BIOPHYSICAL PROFILE: CLINICAL INFORMATION: ZULMA BORDERLINE LOW O28.8 COMPARISON: None There is a single live intrauterine gestation in cephalic presentation. The reported gestational age is 32 weeks 3 days. The heart rate [id number] beats per minute. FINDINGS: TONE: 1 or [...] Lu M.D. 01/04/2025 10:27 AM Dictation Location: [place] [address] Electronically authenticated by: [id number] Y Date: 01/04/2025 10:27 Dictated By: Zita Lu M.D. Signed By: 01/04/25 1030 DD/ 1027 TD/TT: Field Interviewer: [facility] Radiology, Radiologist, - 01/04/2025 [place] [address] Ultrasound Report Signed Patient: ALONDRA BEAVER MR#: [id number] : 1995 Acct:[id number] Age/Sex: 29 / F ADM Date: 01/04/25 Loc: US Attending Dr: José Lozano D.O. Ordering Physician: José Lozano D.O. Date of Service: 01/04/25 Procedure(s): US OB BPP w non-stress Accession Number(s): [id number] cc: José Lozano D.O.; Zita Alanis M.D. The [place] [address] Patient Name: ALONDRA BEAVER MRN: [facility]:[id number] date: 1995 Sex: F Assigned Patient Location: [facility] Current Patient Location: Accession/Order Number: [id number] Exam Date: 01/04/2025 07:10 Report Date: 01/04/2025 10:27 At the request of: JOSÉ LOZANO DO Procedure: US OB BPP w non-stress BIOPHYSICAL PROFILE: CLINICAL INFORMATION: ZULMA BORDERLINE LOW O28.8 COMPARISON: None There is a single live intrauterine gestation in cephalic presentation. The reported gestational age is 32 weeks 3 days. The heart rate [id number] beats per minute. FINDINGS: TONE: 1 or [...] Lu M.D. 01/04/2025 10:27 AM Dictation Location: [place] Electronically authenticated by: [id number] Y Date: 01/04/2025 10:27 Dictated By: Zita Lu M.D. Signed By: 01/04/25 1030 DD/ 1027 TD/TT: Field Interviewer: [facility] Radiology Study observation (narrative) [facility] US OB BPP W NON-STRESS Ordered By: Radiologist Radiology on 01-04-2025 [facility] Work Phone: Urinalysis macro (dipstick) panel (U)on 01-02-2025 Bilirubin, UA Negative Negative - 4(70) +++ mg/dL [facility] Blood, UA Negative Negative - 50 Mark/mcL [facility] Clarity, UA Clear [facility] Color, UA Yellow [facility] Glucose, UA Negative Negative - 2000(110) ++++ mg/dL [facility] Interpretation and review of laboratory results Abnormal [facility] Ketones, UA Negative Negative - 160(16) ++++ mg/dL [facility] Leukocytes, UA Positive Negative - 500+++ Mahsa/mcL [facility] Comment on above: Trace Nitrite, UA Negative Negative - Positive [facility] pH, UA 6.5 5 - 9 [facility] Protein, UA Negative Negative - 2000(20) ++++ mg/dL [facility] Spec Grav, UA 1.015 1 - 1.03 [facility] Urobilinogen, UA 0.2 0.2 - 12 mg/dL [facility] US OB FOLLOW UP TRANSABDOMIN AL [...] UA Negative Negative - 4(70) +++ mg/dL [facility] Blood, UA Negative Negative - 50 Mark/mcL [facility] Clarity, UA Clear [facility] Color, UA Yellow [facility] Glucose, UA Negative Negative - 2000(110) ++++ mg/dL [facility] Interpretation and review of laboratory results Abnormal [facility] Ketones, UA Negative Negative - 160(16) ++++ mg/dL [facility] Leukocytes, UA 3+ Negative - 500+++ Mahsa/mcL [facility] pH, UA 6 5 - 9 [facility] Protein, UA Negative Negative - 2000(20) ++++ mg/dL [facility] Spec Grav, UA 1.015 1 - 1.03 [facility] Urobilinogen, UA 0.2 0.2 - 12 mg/dL [facility] GLUCOSE TOLERANCE 3 HOURon 0 11-28-2024 GLUCOSE TOLERANCE 3 HOUR mg/dL [facility] Comment on above: GLU FAST 93 (<95) Co l: 11/28/24 0641 GLU 1HR 149 (<180) Col: 11/28/24 0743 GLU 2HR 118 (<155) Col: 11/28/24 0843 GLU 3HR 81 (<140) Col: 11/28/24 0942 [facility] ALL CBC WITH AUTO DIFFon BASOPHILS ABSOLUTE AUTO 0 [facility] Basophils/100 WBC (Bld) 0.4 % 0.2 - 2.0 % [facility] Eosinophils/100 WBC (Bld) 1.2 % 0.9 - 7.0 % [facility] Erythrocyte distribution width (RBC) [Ratio] 13 % 11.0 - 15.0 % [facility] Hematocrit (Bld) [Volume fraction] 35.6 % Low 36.0 - 48.0 % [facility] Hemoglobin (Bld) [Mass/Vol] 11.9 g/dL Low 12.0 - 16.0 g/dL [facility] IMMATURE GRANULOCYTES ABS AUTO 0.13 High [facility] Immature granulocytes/100 WBC (Bld) 1.2 % High 0.0 - 0.5 % [facility] Interpretation and review of laboratory results Abnormal [facility] LYMPHOCYTES ABSOLUTE AUTO 1.3 [facility] Lymphocytes/100 WBC (Bld) 11.6 % Low 20.5 - 60.0 % [facility] MCH (RBC) [Entitic mass] 30.9 pg 26.7 - 34.0 pg [facility] MCHC (RBC) [Mass/Vol] 33.4 g/dL 29.9 - 35.2 g/dL [facility] MCV (RBC) [Entitic vol] 92.5 fL 81.0 - 99.0 fL [facility] MONOCYTES ABSOLUTE AUTO 0.5 [facility] Monocytes/100 WBC (Bld) 4.9 % 1.7 - 12.0 % [facility] NEUTROPHILS ABSOLUTE AUTO 8.8 High [facility] Neutrophils/100 WBC (Bld) 80.7 % High 43.0 - 75.0 % [facility] Platelet mean volume (Bld) [Entitic vol] 10.5 fL 9.5 - 13.5 fL [facility] TBH EO # 0.1 [facility] TB PLT 198 [facility] TB RBC 3.85 Low [facility] TB WBC 10.9 [facility] Urinalysis macro (dipstick) panel (U)on 11-22-2024 Bilirubin, UA Negative Negative - 4(70) +++ mg/dL [facility] Blood, UA Negative Negative - 50 Mark/mcL [facility] Clarity, UA Clear [facility] Color, UA Yellow [facility] Glucose, UA Negative Negative - 1999(110) ++++ mg/dL [facility] Interpretation and review of laboratory results Abnormal [facility] Ketones, UA Negative Negative - 160(16) ++++ mg/dL [facility] Leukocytes, UA Moderate Negative - 500+++ Mahsa/mcL [facility] Nitrite, UA Negative Negative - Positive [facility] pH, UA 6 5 - 9 [facility] Protein, UA Negative Negative - 1999(20) ++++ mg/dL [facility] Spec Grav, UA 1.01 1 - 1.03 [facility] Urobilinogen, UA 0.2 0.2 - 12 mg/dL [facility] Urinalysis macro (dipstick) panel (U)on 10-26-2024 Bilirubin, UA Negative Negative - 4(70) +++ mg/dL [facility] Blood, UA Negative Negative - 50 Mark/mcL [facility] Clarity, UA Clear [facility] Color, UA Yellow [facility] Glucose, UA Negative Negative - 1999(110) ++++ mg/dL [facility] Interpretation and review of laboratory results Normal [facility] Ketones, UA Negative Negative - 160(16) ++++ mg/dL [facility] Leukocytes, UA Negative Negative - 500+++ Mahsa/mcL [facility] Nitrite, UA Negative Negative - Positive [facility] pH, UA 6.5 5 - 9 [facility] Protein, UA Negative Negative - 1999(20) ++++ mg/dL [facility] Spec Grav, UA 1.02 1 - 1.03 [facility] Urobilinogen, UA 0.2 0.2 - 12 mg/dL [facility] US OB 14+ WEEKS ANATOMY SCAN [...] II, MD, PHD at 27-Oct-2024 06:14:52 AM [facility] Normal Not Available Comment on above: Order Comment: US OB ANATOMY SINGLE W US OB CERVICAL LENGTH Estimated Date of Delivery: 02/26/25 Gestational Age as of 09/28/2024: 18w3d BOX TESTon 08-29-2024 BOX TEST SENT OUT [facility] BOX1 [facility] [facility] BOX2 08-29-24 [facility] [employer] BOX [facility] Urinalysis macro (dipstick) panel (U)on 08-29-2024 Bilirubin, UA Negative Negative - 4(70) +++ mg/dL [facility] Blood, UA Negative Negative - 50 Mark/mcL [facility] Clarity, UA Clear [facility] Color, UA Yellow [facility] Glucose, UA Negative Negative - 1999(110) ++++ mg/dL [facility] Interpretation and review of laboratory results Normal [facility] Ketones, UA Negative Negative - 160(16) ++++ mg/dL [facility] Leukocytes, UA Negative Negative - 500+++ Mahsa/mcL [facility] Nitrite, UA Negative Negative - Positive [facility] pH, UA 6 5 - 9 [facility] Protein, UA Negative Negative - 2000(20) ++++ mg/dL [facility] Spec Grav, UA 1.02 1 - 1.03 [facility] Urobilinogen, UA 0.2 0.2 - 12 mg/dL [facility] HCG ( test) Ql (U)o n 08-10-2024 Interpretation and review of laboratory results Abnormal [facility] Preg Test, Ur Positive Negative [facility] US OB < 14 WEEKS EARLYon [...] II, MD, PHD at 11-Aug-2024 08:40:37 AM [facility] Normal Not Available Comment on above: Order Comment: US OB Patient's last menstrual period was 05/09/2024 (exact date). Urinalysis macro (dipstick) panel (U)on 08-10-2024 Bilirubin, UA Negative Negative - 4(70) +++ mg/dL [facility] Blood, UA Negative Negative - 50 Mark/mcL [facility] Clarity, UA Clear [facility] Color, UA Yellow [facility] Glucose, UA Negative Negative - 1999(110) ++++ mg/dL [facility] Interpretation and review of laboratory results Abnormal [facility] Ketones, UA Positive Negative - 160(16) ++++ mg/dL [facility] Comment on above: 40 Leukocytes, UA Negative Negative - 500+++ Mahsa/mcL [facility] Nitrite, UA Negative Negative - Positive [facility] pH, UA 5.5 5 - 9 [facility] Protein, UA Negative Negative - 1999(20) ++++ mg/dL [facility] Spec Grav, UA 1.02 1 - 1.03 [facility] Urobilinogen, UA 0.2 0.2 - 12 mg/dL [facility] Outside Recordson 04-20-2024 Outside Records [id number]24 Outside Records [id number] [facility] Cons[facility] Form[facility] 02-18-2024 Consent Forms [id number] 3D#1.00[facility] Cytology Cervical or vaginal smear or scraping studyon 02-08-2024 [facility] HCG ( test) Ql (U)o n 02-08-2024 Interpretation and review of laboratory results Normal [facility] Preg Test, Ur Negative [facility] CMP Standardon 02-03-2024 eGFR Non AA >60 Invalid Interpretation Code [facility] Comment on above: Performed By: #### 1 [id number], [id number], 1885664, 1079592, 0825551, 7501008, 0042477 #### [facility] (DEFAULT) [address] [place] [address] eGFR AA >60 Invalid Interpretation Code [facility] Comment on above: Performed By: #### 1 [id number], [id number], 9466162, 9166669, 1870264, 0804476, 7818616 #### [facility] (DEFAULT) [address] [place] [address] Albumin [Mass/Vol] 4.4 g/dL Normal 3.5-5.0 [facility] Comment on above: Performed By: #### 1 [id number], [id number], 7967035, 7507887, 9744186, 6070052, 7593042 #### [facility] (DEFAULT) [address] [place] [address] Albumin/Globulin [Mass ratio] 1.4 {ratio} Normal 1.4-2.6 [facility] Comment on above: Performed By: #### 1 [id number], [id number], 8482595, 7572525, 1304984, 9793310, 6072868 #### [facility] (DEFAULT) [address] [place] [address] 50331 Alk Phos 67 IU/L Normal 32-91 [facility] Comment on above: Performed By: #### 1 [id number], 1606859858, 0629370, 7072860, 0814921, 5695263, 1255192 #### [facility] (DEFAULT) [address] [place] [address] 41814 ALT [Catalytic activity/Vol] 19.0 U/L Normal 14.0-54.0 [facility] Comment on above: Performed By: #### 1 [id number], 2360491566, 0917093, 1799518, 7730179, 5828937, 3517032 #### [facility] (DEFAULT) [address] [place] [address] Anion gap [Moles/Vol] 10.8 mmol/L Normal 5.0-19.0 [facility] Comment on above: Performed By: #### 1 [id number], 3437423545, 4300817, 5884435, 0296670, 7201795, 2669146 #### [facility] (DEFAULT) [address] [place] [address] 57274 AST [Catalytic activity/Vol] 21 U/L Normal 15-41 [facility] Comment on above: Performed By: #### 1 [id number], 5116232011, 6732714, 4766565, 8005348, 3436124, 3689756 #### [facility] (DEFAULT) [address] [place] [address] 79390 Bili Total 0.7 mg/dL Normal 0.3-1.2 [facility] Comment on above: Performed By: #### 1 [id number], 7521747263, 7352090, 5734368, 0404104, 9096526, 7328986 #### [facility] (DEFAULT) [address] [place] [address] 43277 Calcium [Mass/Vol] 8.9 mg/dL Normal 8.9-10.3 [facility] Comment on above: Performed By: #### 1 [id number], 2155268512, 8765080, 9645134, 5019676, 4575196, 4676615 #### [facility] (DEFAULT) [address] [place] [address] 66461 Chloride [Moles/Vol] 100 mmol/L Low 101-111 [facility] Comment on above: Performed By: #### 1 [id number], 8172948641, 3894913, 0538024, 3085272, 6425789, 6919088 #### [facility] (DEFAULT) [address] [place] [address] 05049 CO2 [Moles/Vol] 26 mmol/L Normal 21-32 [facility] Comment on above: Performed By: #### 1 [id number], 8897151651, 4294359, 3589480, 1198058, 6273914, 2103871 #### [facility] (DEFAULT) [address] [place] [address] 11825 Creatinine [Mass/Vol] 0.86 mg/dL Normal 0.60-1.30 [facility] Comment on above: Performed By: #### 1 [id number], 5906764503, 6604968, 8432725, 6938531, 7438911, 1350109 #### [facility] (DEFAULT) [address] [place] [address] 83888 Globulin (S) [Mass/Vol] 3.1 g/dL Normal 1.5-4.3 [facility] Comment on above: Performed By: #### 1 [id number], 6992633941, 0241996, 6452096, 0270400, 9040628, 7957726 #### [facility] (DEFAULT) [address] [place] [address] 80336 Glucose [Mass/Vol] 90.0 mg/dL Normal 74.0-118.0 [facility] Comment on above: Performed By: #### 1 [id number], 7169447508, 3459850, 5489287, 2977930, 3671274, 1281841 #### [facility] (DEFAULT) [address] [place] [address] 70665 Osmolality 267 mOsm/L Invalid Interpretation Code [facility] Comment on above: Performed By: #### 1 [id number], 3458361354, 4371793, 6609094, 5059641, 0955654, 4195108 #### [facility] (DEFAULT) [address] [place] [address] 74000 Potassium [Moles/Vol] 3.8 mmol/L Normal 3.6-5.1 [facility] Comment on above: Performed By: #### 1 [id number], 1459846203, 7360640, 5104616, 0812909, 1772934, 7811086 #### [facility] (DEFAULT) [address] [place] [address] 16425 Protein [Mass/Vol] 7.5 g/dL Normal 6.5-8.1 [facility] Comment on above: Performed By: #### 1 [id number], 3605639574, 4095882, 8477808, 5745163, 4690445, 8443547 #### [facility] (DEFAULT) [address] [place] [address] 57823 Sodium [Moles/Vol] 133.0 mmol/L Low 136.0-144.0 [facility] Comment on above: Performed By: #### 1 [id number], 2031280874, 7798549, 2534128, 3624568, 6819020, 8502684 #### [facility] (DEFAULT) [address] [place] [address] 68886 Urea nitrogen [Mass/Vol] 17 mg/dL Normal - [facility] Comment on above: Performed By: #### 1 [id number], 9753438045, 5815714, 1294807, 7070796, 2480129, 6792281 #### [facility] (DEFAULT) [address] [place] [address] Urea nitrogen/Creatinine [Mass ratio] 19.7 mg/mg High 4.6-16.2 [facility] Comment on above: Performed By: #### 1 [id number], 8474070711, 9843621, 1833642, 1192445, 5281720, 2631836 #### [facility] (DEFAULT) [address] [place] [address] 57420 GGTon 02-03-2024 Gamma glutamyl transferase [Catalytic activity/Vol] 20.0 U/L Normal 7.0-50.0 [facility] Comment on above: Performed By: #### 1 [id number], 6564281812, 0674880, 7588093, 8553672, 8568392, 4357826 #### [facility] (DEFAULT) [address] [place] [address] 17123 Iron Levelon 02-03-2024 Iron [Mass/Vol] 93.0 ug/dL Normal 28.0-170.0 [facility] Comment on above: Performed By: #### 1 [id number], 8631559176, 8871158, 9284864, 8133541, 6348028, 9324352 #### [facility] (DEFAULT) [address] [place] [address] 59860 LDHon 02-03-2024 LDH 126.0 IU/L Normal 98.0-192.0 [facility] Comment on above: Performed By: #### 1 [id number], 1450101109, 0374325, 9128694, 5487304, 7904048, 2691319 #### [facility] (DEFAULT) [address] [place] [address] 85489 Lipid Panel Standardon 02-02 Cholesterol [Mass/Vol] 214.0 mg/dL High 66.0-200.0 [facility] Comment on above: Performed By: #### 1 [id number], 7578729361, 1210109, 8779365, 5037585, 1228829, 0089244 #### [facility] (DEFAULT) [address] [place] [address] 78239 Cholesterol in HDL [Mass/Vol] 64 mg/dL Normal 40-71 [facility] Comment on above: Performed By: #### 1 [id number], 8669537263, 1904983, 7665478, 9714382, 1052395, 2935817 #### [facility] (DEFAULT) [address] [place] [address] 31445 Cholesterol in LDL [Mass/Vol] 144 mg/dL High 1-100 [facility] Comment on above: Performed By: #### 1 [id number], 1621730655, 7176668, 9855591, 1948242, 0829640, 2824263 #### [facility] (DEFAULT) [address] [place] [address] 79540 Cholesterol.total/C holesterol in HDL [Mass ratio] 3.3 {ratio} Normal 0.0-4.5 [facility] Comment on above: Performed By: #### 1 [id number], 5838792500, 7928916, 4676908, 8302125, 7333880, 8370402 #### [facility] (DEFAULT) [address] [place] [address] 18793 Triglyceride [Mass/Vol] 28.0 mg/dL Normal 0.0-150.0 [facility] Comment on above: Performed By: #### 1 585179135, 7153058204, 6846078, 3009483, 5922811, 1297856, 5797638 #### [facility] (DEFAULT) [address] [place] [address] VLDL. 6 mg/dL Normal 5-40 [facility] Comment on above: Performed By: #### 1 [id number], 2619994752, 3598408, 9732573, 9764591, 4926715, 9384112 #### [facility] (DEFAULT) [address] [place] [address] 29790 Phoson 02-03-2024 Phosphate [Mass/Vol] 2.9 mg/dL Normal 2.5-4.6 [facility] Comment on above: Performed By: #### 1 [id number], 3226576337, 0606697, 5018464, 6627785, 7230633, 9819834 #### [facility] (DEFAULT) [address] [place] [address] 24825 Uric Acidon 02-03-2024 Urate [Mass/Vol] 4.0 mg/dL Normal 2.6-8.0 [facility] Comment on above: Performed By: #### 1 [id number], 3845700431, 9052141, 4233601, 1263496, 5099710, 8498336 #### [facility] (DEFAULT) [address] [place] [address] 94560 XR chest 2V*on 03-02-2023 XR chest 2V* [facility] [place] [address] XRay Report Signed Patient: Alondra Sanches MR#: [id number] : 1995 Acct:[id number] Age/Sex: 27 / F ADM Date: 03/02/23 [facility] Type[facility] CLI Attending Dr: Lisandro Buitrago DO Copies to: Lisandro Buitrago DO Ordering Provider: Lisandro Buitrago DO Date of Service: 03/02/23 XR/XR shoulder LT min 2V*: Left shoulder pain ([id number]) XR/XR chest 2V*: Left shoulder pain;Chest pain [...] CLAVICLE. Impression dictated by: Terry Puentes Jr., Jeremy03/02/2023 4:13 PM Dictation Location: [facility] Transcribed By: [facility] 03/02/231612 Dictated By: Terry Puentes Jr, DO 03/02/231611 Signed By: 03/02/231612 [facility] CBC W MANUAL DIFFon 07-29-19 22 ATYPICAL LYMPH # Normal [facility] Comment on above: Performed By: #### C BCMAN #### [facility] [address] [place] [address] Dr. Susannah Hopkins ATYPICAL LYMPH % Normal [facility] Comment on above: Performed By: #### C BCOCTAVIANO #### [facility] [address] [place] [address] Dr. Susannah Hopkins BAND # 0.3 103/ul Normal 0.0-0.3 [facility] Comment on above: Performed By: #### C BCMAN #### [facility] [address] [place] [address] Dr. Susannah Hopkins BAND % 2 % Normal 0-5 [facility] Comment on above: Performed By: #### C BCMAN #### [facility] [address] [place] [address] Dr. Susannah Hopkins BASOM # 0.00 103/ul Normal 0.00-0.10 [facility] Comment on above: Performed By: #### C BCMAN #### [facility] [address] [place] [address] Dr. Susannah Hopkins BASOM % 0.0 % Critically low 0.2-2.0 [facility] Comment on above: Performed By: #### C BCMAN #### [facility] [address] [address] [address] Susannah Hopkins BLAST # Normal [facility] Comment on above: Performed By: #### C BCMAN #### [facility] [address] [address] [address] Susannah Hopkins BLAST % Normal [facility] Comment on above: Performed By: #### C BCMAN #### [facility] [address] [address] [address] Susannah Hopkins CORRECTED WBC Normal 4.0-11.0 [facility] Comment on above: Performed By: #### C BCOCTAVIANO #### [facility] [address] [address] [address] Susannah Hopkins EOS # 0.00 103/ul Normal 0.00-0.70 [facility] Comment on above: Performed By: #### C BCOCTAVIANO #### [facility] [address] [address] [address] Susannah Hopkins EOS% 0.0 % Critically low 0.9-7.0 [facility] Comment on above: Performed By: #### C GARRET #### [facility] [address] [address] [address] Susannah Hopkins HCT 46.0 % Normal 36.0-48.0 [facility] Comment on above: Performed By: #### C BCOCTAVIANO #### [facility] [address] [place] [address] Dr. Susannah Hopkins HGB 15.7 g/dl Normal 12.0-16.0 [facility] Comment on above: Performed By: #### C BCMAN #### [facility] [address] [address] [address] Susannah Hopkins LYMPHM # 0.69 103/ul Critically low 1.20-3.80 [facility] Comment on above: Performed By: #### C BCMAN #### [facility] [address] [address] [address] Susannah Hopkins LYMPHM% 4.0 % Critically low 20.5-60.0 [facility] Comment on above: Performed By: #### C BCOCTAVIANO #### [facility] [address] [place] [address] Dr. Susannah Hopkins MCH 30.1 pg Normal 26.7-34.0 [facility] Comment on above: Performed By: #### C GARRET #### [facility] [address] [place] [address] Dr. Susannah Hopkins MCHC 34.1 g/dl Normal 29.9-35.2 [facility] Comment on above: Performed By: #### C GARRET #### [facility] [address] [place] [address] Dr. Susannah Hopkins MCV 88.3 fL Normal 81.0-99.0 [facility] Comment on above: Performed By: #### C GARRET #### [facility] [address] [place] [address] Dr. Susannah Hopkins METAMYELOCYTE # Normal [facility] Comment on above: Performed By: #### C GARRET #### [facility] [address] [place] [address] Dr. Susannah Hopkins METAMYELOCYTE % Normal [facility] Comment on above: Performed By: #### C GARRET #### [facility] [address] [place] [address] Dr. Susannah Hopkins MONOM# 1.20 103/ul Critically high 0.30-0.80 [facility] Comment on above: Performed By: #### Natty COMBS #### [facility] [address] [place] [address] Dr. Susannah Hopkins MONOM% 7.0 % Normal 1.7-12.0 [facility] Comment on above: Performed By: #### C GARRET #### [facility] [address] [place] [address] Dr. Susannah Hopkins MPV 9.8 fL Normal 9.5-13.5 [facility] Comment on above: Performed By: #### C GARRET #### [facility] [address] [place] [address] Dr. Susannah Hopkins MYELOCYTE # Normal [facility] Comment on above: Performed By: #### C GARRET #### [facility] [address] [address] [address] Susannah Hopkins MYELOCYTE % Normal [facility] Comment on above: Performed By: #### C BCMAN #### [facility] [address] [address] [address] Susannah Hopkins NRBC Normal [facility] Comment on above: Performed By: #### C BCMAN #### [facility] [address] [address] [address] Susannah Hopkins PLT 278 103/ul Normal 150-450 [facility] Comment on above: Performed By: #### C BCMAN #### [facility] [address] [address] [address] Susannah Hopkins RBC 5.21 106/ul Normal 4.20-5.40 [facility] Comment on above: Performed By: #### C BCMAN #### [facility] [address] [place] [address] Dr. Susannah Hopkins RDW 11.7 % Normal 11.0-15.0 [facility] Comment on above: Performed By: #### C BCMAN #### [facility] [address] [address] [address] Susannah Hopkins SEG # 14.96 103/ul Critically high 1.40-6.[address] [facility] Comment on above: Performed By: #### C BCMAN #### [facility] [address] [address] [address] Susannah Hopkins SEG % 87.0 % Critically high 43.0-75.0 [facility] Comment on above: Performed By: #### C BCMAN #### [facility] [address] [address] [address] Susannah Hopkins WBC 17.2 103/ul Critically high 4.0-11.0 [facility] Comment on above: Performed By: #### C BCMAN #### [facility] [address] [place] [address] Dr. Susannah Hopkins INFLUENZA A AND B AGon 07-28 INFLUANEGH SEE BELOW Normal [facility] Comment on above: Result Comment: Nega tive for Flu A protein angiten. Infection due to Flu A cannot be ruled out. Flu A angiten in the sample may be below the detection limit of the test. Performed By: #### I NFLUAB #### [facility] [address] [place] [address] Dr. Sus[facility] Hopkins [facility] SEE BELOW Normal [facility] Comment on above: Result Comment: Nega tive for Flu B protein antigen. Infection due to Flu B cannot be ruled out. Flu B antigen in the sample may be below the detection limit of the test. Performed By: #### I NFLUAB #### [facility] [address] [place] [address] Dr. Susannah Hopkins INFLUENZA A AG Negative Normal NEGATIVE SEE COMMENT [facility] Comment on above: Performed By: #### I NFLUAB #### [facility] [address] [place] [address] Dr. Susannah Hopkins INFLUENZA B AG Negative Normal NEGATIVE SEE COMMENT [facility] Comment on above: Performed By: #### I NFLUAB #### [facility] [address] [place] [address] Dr. uSsannah Hopkins INTERNAL CONTROLS Within Normal Limits Normal Within Normal Limits [facility] Comment on above: Performed By: #### I NFLUAB #### [facility] [address] [place] [address] Dr. Susannah Hopkins PREG HCG QUALon 07-28-2021 , QUAL Negative Normal NEGATIVE [facility] Comment on above: Performed By: #### P REG #### [facility] [address] [place] [address] Dr. Susannah Hopkins PROF 14(COMP METB)on 022 Albumin [Mass/Vol] 4.4 g/dL Normal 3.4-5.0 [facility] Comment on above: Performed By: #### C MP #### [facility] [address] [place] [address] Dr. Susannah Hopkins Albumin/Globulin [Mass ratio] 1.1 {ratio} Normal [facility] Comment on above: Performed By: #### C MP #### [facility] [address] [place] [address] Dr. Susannah Hopkins ALP [Catalytic activity/Vol] 71 U/L Normal 46-116 [facility] Comment on above: Performed By: #### C MP #### [facility] [address] [address] [address] Susannah Hopkins ALT [Catalytic activity/Vol] 19 U/L Normal 14-59 [facility] Comment on above: Performed By: #### C MP #### [facility] [address] [place] [address] Dr. Susannah Hopkins Anion gap [Moles/Vol] 15.1 mmol/L Normal [facility] Comment on above: Performed By: #### C MP #### [facility] [address] [place] [address] Dr. Susannah Hopkins AST [Catalytic activity/Vol] 23 U/L Normal 15-37 [facility] Comment on above: Performed By: #### C MP #### [facility] [address] [place] [address] Dr. Susannah Hopkins Bilirubin [Mass/Vol] 0.9 mg/dL Normal 0.2-1.3 [facility] Comment on above: Performed By: #### C MP #### [facility] [address] [place] [address] Dr. Susannah Hopkins Calcium [Mass/Vol] 9.5 mg/dL Normal 8.5-10.1 [facility] Comment on above: Performed By: #### C MP #### [facility] [address] [place] [address] Dr. Susannah Hopkins Chloride [Moles/Vol] 101 mmol/L Normal 98-107 [facility] Comment on above: Performed By: #### C MP #### [facility] [address] [place] [address] Dr. Susannah Hopkins CO2 [Moles/Vol] 23.8 mmol/L Normal 22.0-30.0 [facility] Comment on above: Performed By: #### C MP #### [facility] [address] [place] [address] Dr. Susannah Hopkins Creatinine [Mass/Vol] 1.04 mg/dL Normal 0.52-1.04 [facility] Comment on above: Performed By: #### C MP #### [facility] [address] [address] [address] Susannah Hopkins EGFR-AF ANGUILLAN >60 Normal >=60 [facility] Comment on above: Performed By: #### C MP #### [facility] [address] [address] [address] Susannah Hopkins EGFR-NON AF ANGUILLAN >60 Normal >=60 [facility] Comment on above: Performed By: #### C MP #### [facility] [address] [address] [address] Susannah Hopkins Globulin (S) [Mass/Vol] 3.9 g/dL Normal [facility] Comment on above: Performed By: #### C MP #### [facility] [address] [place] [address] Dr. Susannah Hopkins Glucose [Mass/Vol] 157 mg/dL Critically high 74-106 [facility] Comment on above: Performed By: #### C MP #### [facility] [address] [address] [address] Susannah Hopkins Potassium [Moles/Vol] 3.9 mmol/L Normal 3.4-5.0 [facility] Comment on above: Performed By: #### C MP #### [facility] [address] [address] [address] Susannah Hopkins Protein [Mass/Vol] 8.3 g/dL Critically high 6.1-8.2 [facility] Comment on above: Performed By: #### C MP #### [facility] [address] [address] [address] Susannah Hopkins Sodium [Moles/Vol] 136 mmol/L Critically low 137-145 [facility] Comment on above: Performed By: #### C MP #### [facility] [address] [address] [address] Susannah Hopkins Urea nitrogen [Mass/Vol] 20.0 mg/dL Critically high 7.0-18.0 [facility] Comment on above: Performed By: #### C MP #### [facility] [address] [place], [place] [address] Dr. Susannah Hopkins Urea nitrogen/Creatinine [Mass ratio] 19.2 mg/mg Normal [facility] Comment on above: Performed By: #### C MP #### [facility] [address] [place], [place] [address] Dr. Susannah Hopkins Vital Signs Date Time Vital Sign Value Performing Clinician Facility 01-29-2025 08:37-0400 Body mass index (BMI) [Ratio] 29.98 kg/m2 José Blake DO Work Phone: [facility] 01-29-2025 08:37-0400 Body weight 76.77 kg José Blake DO Work Phone: [facility] 01-29-2025 08:37-0400 Diastolic blood pressure 86 mm[Hg] José Blake DO Work Phone: [facility] 01-29-2025 08:37-0400 Systolic blood pressure 128 mm[Hg] José Blake DO Work Phone: [facility] 01-15-2025 09:07-0400 Diastolic blood pressure 72 mm[Hg] Kera Jen [employer] Work Phone: [facility] 01-15-2025 09:07-0400 Systolic blood pressure 132 mm[Hg] Kera Jen [employer]OLDING MACHINE TENDER Work Phone: [facility] 01-15-2025 09:06-0400 Body mass index (BMI) [Ratio] 29.85 kg/m2 Kera Jen [employer]OLDING MACHINE [employer]END[employer] Work Phone: [facility] 01-15-2025 09:06-0400 Body weight 76.43 kg Kera Jen [employer]OLDING MACHINE TENDER Work Phone: [facility] 01-02-2025 08:26-0400 Body mass index (BMI) [Ratio] 28.96 kg/m2 José Blake DO Work Phone: [facility] 01-02-2025 08:26-0400 Body weight 74.16 kg José Blake DO Work Phone: [facility] 01-02-2025 08:26-0400 Diastolic blood pressure 76 mm[Hg] José Blake DO Work Phone: [facility] 01-02-2025 08:26-0400 Systolic blood pressure 120 mm[Hg] José Blake DO Work Phone: [facility] 12-19-2024 09:04-0400 Body mass index (BMI) [Ratio] 28.7 kg/m2 Nadine Galileo PA Work Phone: [facility] 12-19-2024 09:04-0400 Body weight 73.48 kg Nadine Galileo PA Work Phone: [facility] 12-19-2024 09:04-0400 Diastolic blood pressure 78 mm[Hg] Nadine Galileo PA Work Phone: [facility] 12-19-2024 09:04-0400 Systolic blood pressure 104 mm[Hg] Nadine [place] PA Work Phone: [facility] 12-05-2024 09:23-0400 Body mass index (BMI) [Ratio] 28.52 kg/m2 José Blake DO Work Phone: [facility] 12-05-2024 09:23-0400 Body weight 73.03 kg José Blake DO Work Phone: [facility] 12-05-2024 09:23-0400 Diastolic blood pressure 76 mm[Hg] José Blake DO Work Phone: [facility] 12-05-2024 09:23-0400 Systolic blood pressure 120 mm[Hg] José Blake DO Work Phone: [facility] 11-22-2024 08:52-0400 Body mass index (BMI) [Ratio] 28.19 kg/m2 Nadine Galileo PA Work Phone: [facility] 11-22-2024 08:52-0400 Body weight 72.18 kg Nadine Galileo PA Work Phone: [facility] 11-22-2024 08:52-0400 Diastolic blood pressure 76 mm[Hg] Nadine Hawthornelisa DE JESUS Work Phone: [facility] 11-22-2024 08:52-0400 Systolic blood pressure 120 mm[Hg] Nadine Hawthornelisa DE JESUS Work Phone: [facility] 10-26-2024 12:05-0400 Body mass index (BMI) [Ratio] 26.93 kg/m2 José Blake DO Work Phone: [facility] 10-26-2024 12:05-0400 Body weight 68.95 kg José Blake DO Work Phone: [facility] 10-26-2024 12:05-0400 Diastolic blood pressure 68 mm[Hg] José Blake DO Work Phone: [facility] 10-26-2024 12:05-0400 Systolic blood pressure 120 mm[Hg] José Blake DO Work Phone: [facility] 08-29-2024 14:34-0400 Body mass index (BMI) [Ratio] 25.65 kg/m2 José Blake DO Work Phone: [facility] 08-29-2024 14:34-0400 Body weight 65.68 kg José Blake DO Work Phone: [facility] 08-29-2024 14:34-0400 Diastolic blood pressure 72 mm[Hg] José Blake DO Work Phone: [facility] 08-29-2024 14:34-0400 Systolic blood pressure 120 mm[Hg] José Blake DO Work Phone: [facility] 08-10-2024 14:55-0400 Body height 160 cm [facility] 08-10-2024 14:55-0400 Body mass index (BMI) [Ratio] 25.18 kg/m2 [facility] 08-10-2024 14:55-0400 Body weight 64.47 kg [facility] 08-10-2024 14:55-0400 Diastolic blood pressure 76 mm[Hg] [facility] Nurse [facility] 08-10-2024 14:55-0400 Systolic blood pressure 120 mm[Hg] [facility] Nurse [facility] 05-16-2024 12:44-0500 Body weight 65.32 kg Madeleine Bundy MD Work Phone: [facility] 05-16-2024 12:44-0500 Diastolic blood pressure 78 mm[Hg] Madeleine Bundy MD Work Phone: [facility] 05-16-2024 12:44-0500 Systolic blood pressure 120 mm[Hg] Madeleine Bundy MD Work Phone: [facility] 02-08-2024 15:08-0400 Body weight 66.22 kg Madeleine Bundy MD Work Phone: [facility] 02-08-2024 15:08-0400 Diastolic blood pressure 68 mm[Hg] Madeleine Bundy MD Work Phone: [facility] 02-08-2024 15:08-0400 Systolic blood pressure 130 mm[Hg] Madeleine Bundy MD Work Phone: [facility] 05-12-2023 07:30-0500 Body height 158.75 cm Tyrell Stiles Other [employer] [facility] [employer] Other 05-12-2023 07:30-0500 Body mass index (BMI) [Ratio] 25.41 kg/m2 Tyrell Stiles Other [employer] Other 05-12-2023 07:30-0500 Body weight 64.05 kg Tyrell Stiles Other [employer] Other 05-12-2023 07:30-0500 Diastolic blood pressure 78 mm[Hg] Tyrell Stiles Other [employer] Other 05-12-2023 07:30-0500 Respiratory rate 16 /min Tyrell Stiles Other [employer] Other 05-12-2023 07:30-0500 SaO2% (BldA) [Mass fraction] 98 % Tyrell Linsey Other [employer] Other 05-12-2023 07:30-0500 Systolic blood pressure 122 mm[Hg] Tyrell Linsey Other [employer] Other 02-24-2023 12:30-0400 Body height 158.75 cm Lisandro Kuns Other [employer] Other 02-24-2023 12:30-0400 Body mass index (BMI) [Ratio] 25.2 kg/m2 Lisandro Kuns Other [employer] Other 02-24-2023 12:30-0400 Body weight 63.5 kg Lisandro Kuns Other [employer] Other 02-24-2023 12:30-0400 Diastolic blood pressure 85 mm[Hg] Lisandro Kuns Other [employer] Other 02-24-2023 12:30-0400 Respiratory rate 16 /min Lisandro Kuns Other [employer] Other 02-24-2023 12:30-0400 SaO2% (BldA) [Mass fraction] 99 % Lisandro Kuns Other [employer] Other 02-24-2023 12:30-0400 Systolic blood pressure 140 mm[Hg] Lisandro Kuns Other [employer] Other Encounters Encounter Date Encounter Type Care Provider Facility Start: 01-29-2025 End: 01-29-2025 Bamboo flowsheet José Blake DO Work Phone: [facility] Start: 01-29-2025 End: 01-29-2025 Bamboo flowsheet José Blake DO Work Phone: [facility] Start: 01-29-2025 End: 01-29-2025 flow sheet José Blake DO Work Phone: [facility] Comment on above: Third trimester preg lindsey ([facility]); 36 weeks gestation of ([facility]) Start: 01-25-2025 End: 01-25-2025 Clinisync Result Encounter José Blake DO Work Phone: [facility] Unsolicited Start: 01-25-2025 End: 01-25-2025 Clinisync Result Encounter José Blake DO Work Phone: [facility] Unsolicited Start: 01-18-2025 End: 01-18-2025 Clinisync Result Encounter José Blake DO Work Phone: [facility] Unsolicited Start: 01-18-2025 End: 01-18-2025 Clinisync Result Encounter José Blake DO Work Phone: [facility] Unsolicited Start: 01-15-2025 End: 01-15-2025 Bamboo flowsheet Kera Jen FOLDING MACHINE TENDER Work Phone: [facility] Start: 01-15-2025 End: 01-15-2025 Bamboo flowsheet Kera Jen FOLDING MACHINE TENDER Work Phone: [facility] Start: 01-15-2025 End: 01-15-2025 flow sheet Kera Jen FOLDING MACHINE TENDER Work Phone: [facility] Comment on above: Third trimester preg lindsey ([facility]); 34 weeks gestation of ([facility]) Start: 01-15-2025 End: 01-15-2025 ambulatory KERA LI [...] flowsheet José Blake DO Work Phone: [facility] Start: 01-02-2025 End: 01-02-2025 Bamboo flowsheet José Blake DO Work Phone: [facility] Start: 01-02-2025 End: 01-02-2025 flow sheet José Blake DO Work Phone: [facility] Comment on above: Third trimester preg lindsey ([facility]); 32 weeks gestation of ([facility]); ZULMA (amniotic fluid index) borderline low Start: 01-02-2025 End: 01-02-2025 ambulatory JOSÉ BLAKE Not Available Start: 12-19-2024 End: 12-19-2024 flow sheet Nadine DE JESUS Work Phone: [facility] Comment on above: 30 weeks gestation o f ([facility]); Third trimester ([facility]); HSV infection Start: 12-19-2024 End: 12-19-2024 ambulatory NADINE GALVAN Not Available Start: 12-05-2024 End: 12-05-2024 Bamboo flowsheet José Blake DO Work Phone: [facility] Start: 12-05-2024 End: 12-05-2024 Bamboo flowsheet José Blake DO Work Phone: [facility] Start: 12-05-2024 End: 12-05-2024 flow sheet José Blake DO Work Phone: [facility] Comment on above: Third trimester preg lindsey ([facility]); 28 weeks gestation of ([facility]); HSV infection; size inconsistent with dates ([facility]) Start: 12-05-2024 End: 12-05-2024 ambulatory JOSÉ BLAKE [...] on above: 26 weeks gestation o f ([facility]); Second trimester ([facility]); Elevated glucose tolerance test Start: 11-22-2024 End: 11-22-2024 ambulatory NADINE GALVAN Not Available Start: 10-26-2024 End: 10-26-2024 ambulatory JOSÉ BLAKE Not Available Start: 10-26-2024 End: 10-26-2024 flow sheet José Blake DO Work Phone: [facility] Comment on above: Second trimester pre gnancy ([facility]); 22 weeks gestation of ([facility]); Diabetes mellitus screening Start: 10-26-2024 End: 10-26-2024 [...] 08-29-2024 End: 08-29-2024 Clinisync Result Encounter José Balke DO Work Phone: [facility] Unsolicited [...] minutes Madeleine Bundy MD Work Phone: [facility] Comment on above: Hormone imbalance (P rimary Dx); Amenorrhea; Missed menses; Family planning; Thyroid disorder screen Start: 05-16-2024 End: 05-16-2024 ambulatory MADELEINE BUNDY Not Available Start: 03-30-2024 End: 03-30-2024 ambulatory Zita Alanis Facility:[facility] Start: 02-08-2024 End: 02-08-2024 Patient encounter status Madeleine Bundy MD Work Phone: [facility] Start: 02-08-2024 End: 02-08-2024 Periodic preventive med est patient 18-39 yrs Madeleine Bundy MD Work Phone: [facility] Comment on above: Amenorrhea (Primary Dx); Screening for malignant neoplasm of cervix; Encounter for gynecological examination without abnormal finding; Encounter for surveillance of vaginal ring hormonal contraceptive device; Missed menses Start: 02-08-2024 End: 02-08-2024 ambulatory MADELEINE BUNDY Not Available Start: 01-24-2024 End: 01-24-2024 ambulatory Facility:[facility] Start: 05-12-2023 End: 05-12-2023 ambulatory Tyrell Stiles Other [employer] Other Start: 05-12-2023 Office outpatient vi sit 15 minutes Tyrell Stiles [facility] Start: 03-02-2023 End: 03-02-2023 ambulatory Lisandro Buitrago Facility:[facility] Start: 03-02-2023 End: 03-02-2023 ambulatory DO Lisandro Kuns Work Phone: [facility] Work Phone: Start: 03-02-2023 End: 03-02-2023 Patient encounter procedure DO Lisandro Kuns Work Phone: [facility] Start: 02-24-2023 End: 02-24-2023 ambulatory Lisandro Buitrago Other [employer] Other Start: 02-24-2023 Encounter for genera l adult medical examination without abnormal findings Lisandro Buitrago [facility] Start: 02-24-2023 Office outpatient ne w 30 minutes Lisandro Buitrago [facility] [place] Start: 07-28-2021 End: 07-28-[address] JANES GARCIA Facility:[facility] Procedures Date Procedure Procedure Detail Performing Clinician Start: 01-29-2025 Urnls dip stick/tabl et rgnt non-auto w/o micrscp José Blake DO Work Phone: Start: 01-25-2025 US OB BPP W NON-STRESS José Blake DO Work Phone: Start: 01-18-2025 US OB BPP W NON-STRESS [...] Start: 03-02-2023 Plain chest X-ray DO Br bonnie MartínezInxero Work Phone: Start: 03-02-2023 Plain X-ray of left shoulder DO Lisandroteri Buitrago Work Phone: Plan of Treatment Date Care Activity Detail Author Start: 02-08-2025 End: 02-08-2025 Patient encounter procedure 02/08/2025 8:40 AM EDT Routine TORREY MONTANO [address] [address] Kera Li, FOLDING MACHINE TENDER [address] [place] [address] TORREY Peng [facility] Start: 01-29-2025 End: 01-29-2026 CULTURE, GROUP B STREP WITH SUSCEPTIBLITY CULTURE, GROUP B STREP WITH SUSCEPTIBLITY Lab Routine Third trimester ([facility]) Expected: 01/29/2025, Expires: 01/29/2026 [facility] Work Phone: Comment on above: Expected: 01/29/2025 , Expires: 01/29/2026 Start: 01-29-2025 End: 01-29-2025 Patient encounter procedure [facility] Comment on above: Third trimester preg lindsey ([facility]) Start: 01-16-2025 End: 01-16-2025 Patient encounter procedure 01/16/2025 8:50 AM EDT Routine [facility] [address] [place] [id number] Nadine Galvan, PA [address] [place] [address] [facility] Start: 01-15-2025 End: 01-15-2025 Patient encounter procedure [facility] Comment on above: Arrived Start: 01-08-2025 Influenza vaccination N [facility] Start: 01-02-2025 End: 07-05-2025 US biophysical profile w non stress test US biophysical profile w non stress test Imaging Routine ZULMA (amniotic fluid index) borderline low Expected: 01/02/2025 (Approximate), Expires: 07/05/2025 [facility] Work Phone: Comment on above: Expected: 01/02/2025 (Approximate), Expires: 07/05/2025 Start: 01-02-2025 End: 01-02-2025 Patient encounter procedure [facility] Comment on above: Arrived Start: 12-19-2024 End: 12-19-2024 Patient encounter procedure 12/19/2024 8:50 AM EDT Routine [facility] [address] [place] [phone] Nadine Galvan, PA [address] [place] [address] [facility] Start: 12-19-2024 End: 12-19-2024 Professional / ancillary services management 12/19/2024 8:00 AM EDT Ancillary Procedure [facility] [address] [place] [address] [facility] Start: 12-05-2024 End: 04-07-2025 US for US OB follow up transabdominal approach Imaging Routine size inconsistent with dates ([facility]) Expected: 12/05/2024, Expires: 04/07/2025 [facility] Work Phone: Comment on above: Expected: 12/05/2024 , Expires: 04/07/2025 Start: 12-05-2024 End: 12-05-2024 Patient encounter procedure [facility] Comment on above: Arrived Start: 11-22-2024 End: 11-22-2025 Measurement of glucose 3 hours after glucose challenge for glucose tolerance test Glucose tolerance, 3 hours Lab Routine Elevated glucose tolerance test Expected: 11/22/2024 (Approximate), Expires: 11/22/2025 [facility] Work Phone: Comment on above: Expected: 11/22/2024 (Approximate), Expires: 11/22/2025 Start: 11-22-2024 End: 11-22-2024 Patient encounter procedure 11/22/2024 8:50 AM EDT Routine [facility] [address] [phone] Nadine Galvan PA [address] [place] [address] [facility] Start: 10-26-2024 End: 10-26-2025 CBC panel - Blood by Automated count CBC Lab Routine Diabetes mellitus screening Expected: 10/26/2024 (Approximate), Expires: 10/26/2025 [facility] Work Phone: Comment on above: Expected: 10/26/2024 (Approximate), Expires: 10/26/2025 Start: 10-26-2024 End: 10-26-2025 Measurement of glucose 1 hour after glucose challenge for glucose tolerance test Glucose tolerance, 1 hour Lab Routine Diabetes mellitus screening Expected: 10/26/2024 (Approximate), Expires: 10/26/2025 [facility] Comment on above: Expected: 10/26/2024 (Approximate), Expires: 10/26/2025 Start: 09-27-2024 End: 09-27-2024 Patient encounter procedure 09/27/2024 3:30 PM EDT Routine [facility] [address] [address] Nadine Galvan PA [address] [place] [address] [facility] Start: 08-29-2024 End: 08-29-2024 Patient encounter procedure [facility] Comment on above: Arrived Start: 07-27-2024 End: 07-27-2024 ambulatory 07/27/2024 10:30 AM EDT Initial [facility] [address] [place] [phone] Madeleine Bundy MD [address] [place] [address] [facility] Start: 07-17-2024 End: 07-17-2024 Patient encounter procedure 07/17/2024 12:30 PM EDT Office Visit [facility] [address] [place] [phone] Madeleine Bundy MD [address] [place] [address] [facility] Start: 07-17-2024 End: 07-17-2024 Professional / ancillary services management 07/17/2024 8:30 AM EDT Ancillary Procedure [facility] [address] [place] [phone] [facility] Start: 07-11-2024 End: 07-11-2025 [...] carrier status Expected: 07/11/2024 (Approximate), Expires: 07/11/2025 [facility] Comment on above: Expected: 07/11/2024 (Approximate), Expires: 07/11/2025 Start: 07-11-2024 End: 07-11-2025 Blood type and Indirect antibody screen panel - Blood Type and screen Lab Routine Encounter for supervision of normal first in first trimester Expected: 07/11/2024, Expires: 07/11/2025 [facility] Comment on above: Expected: 07/11/2024 , Expires: 07/11/2025 Start: 07-11-2024 End: 07-11-2025 CBC W Auto Differential panel - Blood CBC and differential Lab Routine Encounter for supervision of normal first in first trimester Expected: 07/11/2024, Expires: 07/11/2025 [facility] Comment on above: Expected: 07/11/2024 , Expires: 07/11/2025 Start: 07-11-2024 End: 07-11-2025 DRUG SCREEN 17 W/CONF, UR DRUG SCREEN 17 W/CONF, UR Lab Routine Encounter for drug screening Expected: 07/11/2024, Expires: 07/11/2025 [facility] Comment on above: Expected: 07/11/2024 , Expires: 07/11/2025 Start: 07-11-2024 End: 07-11-2025 Hepatitis B virus surface Ag [Presence] in Serum or Plasma by Immunoassay Hepatitis B surface antigen Lab Routine Encounter for supervision of normal first in first trimester Expected: 07/11/2024, Expires: 07/11/2025 [facility] Comment on above: Expected: 07/11/2024 , Expires: 07/11/2025 Start: 07-11-2024 End: 07-11-2025 Hepatitis C virus Ab [Presence] in Serum or Plasma by Immunoassay Hepatitis C antibody Lab Routine Encounter for supervision of normal first in first trimester Expected: 07/11/2024, Expires: 07/11/2025 [facility] Comment on above: Expected: 07/11/2024 , Expires: 07/11/2025 Start: 07-11-2024 End: 07-11-2025 HIV-1/HIV-2 antigen/antibody combination immunoassay HIV-1 and HIV-2 antibodies Lab Routine Encounter for supervision of normal first in first trimester Expected: 07/11/2024, Expires: 07/11/2025 [facility] Comment on above: Expected: 07/11/2024 , Expires: 07/11/2025 Start: 07-11-2024 End: 07-11-2025 [id number] PLUS Core+SCA [id number] PLUS Core+SCA Lab Routine Encounter for screening for chromosomal anomalies Expected: 07/11/2024 (Approximate), Expires: 07/11/2025 [facility] Comment on above: Expected: 07/11/2024 (Approximate), Expires: 07/11/2025 Start: 07-11-2024 End: 07-11-2025 Reagin Ab [Presence] in Serum by RPR RPR Lab Routine Encounter for supervision of normal first in first trimester Expected: 07/11/2024, Expires: 07/11/2025 [facility] Comment on above: Expected: 07/11/2024 , Expires: 07/11/2025 Start: 07-11-2024 End: 07-11-2025 Rubella antibody, IgG Rubella antibody, IgG Lab Routine Encounter for supervision of normal first in first trimester Expected: 07/11/2024, Expires: 07/11/2025 [facility] Comment on above: Expected: 07/11/2024 , Expires: 07/11/2025 Start: 07-11-2024 End: 07-11-2025 Urinalysis complete panel - Urine Urinalysis with microscopic Lab Routine Encounter for supervision of normal first in first trimester Expected: 07/11/2024, Expires: 07/11/2025 [facility] Work Phone: Comment on above: Expected: 07/11/2024 , Expires: 07/11/2025 Start: 05-16-2024 End: 05-16-2025 Cortisol Cortisol Lab Routine Hormone imbalance Expected: 05/16/2024, Expires: 05/16/2025 [facility] Comment on above: Expected: 05/16/2024 , Expires: 05/16/2025 Start: 05-16-2024 End: 05-16-2025 DHEA-sulfate DHEA-sulfate Lab Routine Hormone imbalance Expected: 05/16/2024, Expires: 05/16/2025 [facility] Comment on above: Expected: 05/16/2024 , Expires: 05/16/2025 Start: 05-16-2024 End: 05-16-2025 Estradiol Estradiol Lab Routine Hormone imbalance Expected: 05/16/2024, Expires: 05/16/2025 [facility] Comment on above: Expected: 05/16/2024 , Expires: 05/16/2025 Start: 05-16-2024 End: 05-16-2025 Estrone Estrone Lab Routine Hormone imbalance Expected: 05/16/2024, Expires: 05/16/2025 [facility] Comment on above: Expected: 05/16/2024 , Expires: 05/16/2025 Start: 05-16-2024 End: 05-16-2025 Follicle stimulating hormone Follicle stimulating hormone Lab Routine Hormone imbalance Thyroid disorder screen Expected: 05/16/2024, Expires: 05/16/2025 [facility] Comment on above: Expected: 05/16/2024 , Expires: 05/16/2025 Start: 05-16-2024 End: 05-16-2025 Insulin, fasting Insulin, fasting Lab Routine Amenorrhea Missed menses Hormone imbalance Expected: 05/16/2024, Expires: 05/16/2025 [facility] Comment on above: Expected: 05/16/2024 , Expires: 05/16/2025 Start: 05-16-2024 End: 05-16-2025 Luteinizing hormone Luteinizing hormone Lab Routine Hormone imbalance Thyroid disorder screen Expected: 05/16/2024, Expires: 05/16/2025 [facility] Comment on above: Expected: 05/16/2024 , Expires: 05/16/2025 Start: 05-16-2024 End: 05-16-2025 Progesterone Progesterone Lab Routine Hormone imbalance Expected: 05/16/2024, Expires: 05/16/2025 [facility] Comment on above: Expected: 05/16/2024 , Expires: 05/16/2025 Start: 05-16-2024 End: 05-16-2025 Sex hormone binding globulin Sex hormone binding globulin Lab Routine Hormone imbalance Expected: 05/16/2024, Expires: 05/16/2025 [facility] Comment on above: Expected: 05/16/2024 , Expires: 05/16/2025 Start: 05-16-2024 End: 05-16-2025 Testosterone, free, total Testosterone, free, total Lab Routine Hormone imbalance Expected: 05/16/2024, Expires: 05/16/2025 [facility] Comment on above: Expected: 05/16/2024 , Expires: 05/16/2025 Start: 05-16-2024 End: 05-16-2025 Thyrotropin [Units/volume] in Serum or Plasma TSH Lab Routine Hormone imbalance Thyroid disorder screen Expected: 05/16/2024, Expires: 05/16/2025 [facility] Work Phone: Comment on above: Expected: 05/16/2024 , Expires: 05/16/2025 Start: 05-16-2024 End: 05-16-2025 Vitamin D 1,25 dihydroxy Vitamin D 1,25 dihydroxy Lab Routine Hormone imbalance Expected: 05/16/2024, Expires: 05/16/2025 [facility] Comment on above: Expected: 05/16/2024 , Expires: 05/16/2025 Start: 05-16-2024 End: 05-16-2024 Patient encounter procedure 05/16/2024 12:30 PM EST Office Visit [facility] [address] [place] [phone] Madeleine Bundy MD [address] [place] [address] [facility] Start: 02-08-2024 End: 02-07-2025 Follicle stimulating hormone Follicle stimulating hormone Lab Routine Amenorrhea Expected: 02/08/2024 (Approximate), Expires: 02/07/2025 [facility] Comment on above: Expected: 02/08/2024 (Approximate), Expires: 02/07/2025 Start: 01-09-2024 Influenza vaccination Influenza Vacc ine (#1) [facility] hCG, qualitative hCG, qualitativ e Lab Routine Amenorrhea Ordered: 02/08/2024 [facility] Comment on above: Ordered: 02/08/2024 Hemoglobin A1c/Hemoglobin.total in Blood Hemoglobin A1c Lab Routine with uncertain dates, antepartum Ordered: 08/10/2024 [facility] Work Phone: Comment on above: Ordered: 08/10/2024 Luteinizing hormone Luteinizing hormone Lab Routine Amenorrhea Ordered: 02/08/2024 [facility] Comment on above: Ordered: 02/08/2024 Progesterone Progesterone Lab Routine Amenorrhea Ordered: 02/08/2024 [facility] Comment on above: Ordered: 02/08/2024 SENDOUT TEST MISCELLANEOUS [facility] SENDOUT TEST MISCELLANEOUS [facility] Lab Routine Screening for malignant neoplasm of cervix Encounter for gynecological examination without abnormal finding Ordered: 02/08/2024 [facility] Work Phone: Comment on above: Ordered: 02/08/2024 Testosterone, free, total Testosterone, free, total Lab Routine Amenorrhea Ordered: 02/08/2024 [facility] Comment on above: Ordered: 02/08/2024 Immunizations Immunization Date Immunization Notes Care Provider Fa cili 09-25-2020 COVID-19 Vaccine Moderna - Documentation Purposes Only [facility] Other [employer] Other 08-21-2020 COVID-19 Vaccine Moderna - Documentation Purposes Only [facility] Other [employer] Other Payers Date Payer Category Payer Unknown [id number] 2023 Private Health Insurance [id number] 2023 Private Health Insurance [id number] 2023 Unknown [id number]. [id number] 1995 Unknown [id number] 2.16.84 [id number] 1995 Unknown [id number] 2.16.8 [id number] 1995 Unknown [id number] 2.16.8 [id number] 1995 Unknown [id number] 2.16.8 [id number] 1995 Unknown [id number] 2.16.8 [id number] 1995 Unknown [id number] 2.16.8 [id number] 1995 Unknown [id number] 2.16.8 [id number] 1995 Unknown [id number] 2.16.8 [id number] 1995 Unknown [id number] 2.16.8 [id number] 1995 Unknown [id number] 2.16.84 [id number] 1995 Unknown [id number] 2.16.84 [id number] 1995 Unknown [id number] 2.16.84 [id number] 1995 Unknown [id number] 2.16.84 [id number] 1995 Unknown [id number] 2.16.84 [id number] 1995 Unknown [id number] 2.16.84 [id number] 1995 Unknown [id number] 2.16.84 0.1.742271.3.579.2.9 1995 Unknown [id number] 2.16.8 [id number] 1959 Self-pay Unknown [id number] [id number] Unknown [id number] 2.16.8 [id number] Social History Date Type Detail Facility Start: 02-08-2024 End: 05-16-2024 Sex Assigned At [facility] [employer] Other Start: 1995 Sex Assigned At Female [facility] [place] Start: 05-15-2023 [facility] Start: 05-15-2023 [...] Personal health goal Clinical Notes 02-24-2023 to 01-29-2025 Kera Li NP - 01/29/2025 8:30 AM Justine Ambriz LPN - 01/15/2025 8:50 AM Elton Borrego LPN - 01/02/2025 8:30 AM LIZA Harris - 12/19/2024 8:50 AM EDTPatient Instructions Note Date & Type Note Facility 01-29-2025 History of Presen t illness Narrative Reason [...] nursing note reviewed. Exam conducted with a eligibility counselor present. Vitals: Estimated body mass index is 29.98 kg/m as calculated from the following: Height as of 08/10/24: 5' 3 . Weight as of this encounter: 169 lb 4 oz. BP: 128/86 Patient's last menstrual period was 05/09/2024 (exact date). ASSESSMENT & PLAN ICD-10-CM 1. Third trimester ([facility]) Z34.93 POCT urinalysis dipstick manually resulted CULTURE, GROUP B STREP WITH SUSCEPTIBLITY CULTURE, GROUP B STREP WITH SUSCEPTIBLITY 2. 36 weeks gestation of ([facility]) Z3A.36 Return OB: Patient presents today for [...] week for routine OB appointment. Documented by Kera Li NP on behalf of: José Lozano DO documented in this encounter [facility] 01-15-2025 History of Presen t illness Narrative [...] nursing note reviewed. Exam conducted with a eligibility counselor present. Vitals: Estimated body mass index is 29.85 kg/m as calculated from the following: Height as of 08/10/24: 5' 3 . Weight as of this encounter: 168 lb 8 oz. BP: 132/72 Patient's last menstrual period was 05/09/2024 (exact date). ASSESSMENT & PLAN ICD-10-CM 1. Third trimester ([facility]) Z34.93 POCT urinalysis dipstick manually resulted 2. 34 weeks gestation of ([facility]) Z3A.34 Patient presents today for a routine [...] Kera Li NP documented in this encounter [facility] 01-02-2025 History of Presen t [...] nursing note reviewed. Exam conducted with a eligibility counselor present. Vitals: Estimated body mass index is 28.96 kg/m as calculated from the following: Height as of 08/10/24: 5' 3 . Weight as of this encounter: 163 lb 8 oz. BP: 120/76 Patient's last menstrual period was 05/09/2024 (exact date). ASSESSMENT & PLAN ICD-10-CM 1. Third trimester ([facility]) Z34.93 POCT urinalysis dipstick manually resulted 2. 32 weeks gestation of ([facility]) Z3A.32 Return OB: Patient presents [...] José Lozano DO documented in this encounter [facility] 12-19-2024 History of Presen t [...] PLAN ICD-10-CM 1. 30 weeks gestation of ([facility]) Z3A.30 POCT urinalysis dipstick manually resulted 2. Third trimester ([facility]) Z34.93 POCT urinalysis dipstick manually resulted 3. [...] of: LIZA Zaldivar documented in this encounter [facility] 12-05-2024 History of Presen t [...] Kwan Potts Breast cancer Paternal Grandmother Gilda Felixp Lung [...] nursing note reviewed. Exam conducted with a eligibility counselor present. Vitals: Estimated body mass index is 28.52 kg/m as calculated from the following: Height as of 08/10/24: 5' 3 . Weight as of this encounter: 161 lb. BP: 120/76 Patient's last menstrual period was 05/09/2024 (exact date). ASSESSMENT & PLAN ICD-10-CM 1. Third [facility] Z34.93 CANCELED: POCT urinalysis dipstick manually resulted 2. 28 weeks gestation of ([facility]) Z3A.28 3. 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 size inconsistent with dates ([facility]) O26.849 OB follow up transabdominal approach Return OB: [...] José Lozano DO documented in this encounter [facility] 11-22-2024 History of Presen t [...] Esmer Walp Polycystic ovary syndrome Mother Esmer Walshane Thyroid disease Mother Esmer Sanches Polycystic ovary syndrome Sister Breast cancer Maternal Grandmother Maricarmen Potts Hypothyroidism Maternal Grandfather Kwan Swiney Thyroid disease Maternal Grandfather Kwan Potts Breast [...] PLAN ICD-10-CM 1. 26 weeks gestation of ([facility]) Z3A.26 POCT urinalysis dipstick manually resulted 2. Second trimester ([facility]) Z34.92 POCT urinalysis dipstick manually resulted 3. [...] of: LIZA Zaldivar documented in this encounter [facility] 10-26-2024 History of Presen t [...] ASSESSMENT & PLAN ICD-10-CM 1. Second trimester ([facility]) Z34.92 POCT urinalysis dipstick manually resulted 2. 22 weeks gestation of ([facility]) Z3A.22 3. Diabetes mellitus screening Z13.1 CBC [...] José Lozano DO documented in this encounter [facility] 08-29-2024 History of Presen t [...] Gilda Walp Lung cancer Paternal Grandmother Gilda Felixp Colon [...] nursing note reviewed. Exam conducted with a eligibility counselor present. Vitals: Estimated body mass index is [...] or undercooked meat, and [facility] Patient has been consulted regarding any further do's and don'ts of . Patient voiced understanding and all questions and concerns were answered. Orders Placed This Encounter Procedures POCT urinalysis dipstick manually resulted Follow Up: Patient is to return in 4 weeks for routine OB appointment. Documented by Zita Borrego LPN on behalf of: José Lozano DO documented in this encounter [facility] 08-10-2024 History of Presen t [...] or undercooked meat, and [facility]. Patient has also been advised to not change litter boxes and eat 6 small meals a day. Patient has been consulted regarding the do's and don'ts of . Patient was given labs and all questions and concerns were answered. Patient was given [place] labs to be completed with Hgb A1C. Follow Up: Patient is to return in 4 weeks for routine OB appointment. Follow Up: Patient is to have labs drawn at directed and return to office for initial OB appointment with provider. Patient may call office as needed with any concerns or questions. Nurse Visit Completed by: Domenica Jacinto LPN documented in this encounter [facility] 07-11-2024 History of Presen t [...] Appointments scheduled for 07/17/24 with OBUS and 3/20/25 with PPJ. Jennifer Ayala RN 07/11/2024 10:03 AM documented in this encounter [facility] 05-16-2024 History of Presen t illness Narrative Images from the original note were not included. Madeleine Bundy MD Obstetrics and Gynecology Patient: Alondra Beaver : 1995 (28 y.o.) Exam Date: 05/16/2024 Reason for Visit - Chief Complaint Patient presents with Follow-up Follow up for Amenorrhea, missed menses, and family planning. Stopped [employer] in 10/2023. [employer] 04/03 LMP 05/09 Ovulatory 04/30 Patient did [...] Behavior: Behavior normal. Exam conducted with a eligibility counselor present. Assessment/Plan ICD-10-CM 1. Amenorrhea N91.2 2. [...] Madeleine Bundy MD documented in this encounter [facility] 05-16-2024 Instructions Madeleine Bundy MD [...] routine infertility test. documented in this encounter [facility] 02-08-2024 History of Presen t [...] Madeleine Bundy MD documented in this encounter [facility] 05-12-2023 Evaluation note Encounter Date [...] and trigger point injections can be done. [employer] Other 10-18-2023 Evaluation note* Encounter Date Diagnosis Assessment Notes Treatment Notes Treatment Clinical Notes Feb, Encounter to establish care (ICD-10 - Z76.89) Patient appears to be in good health upon examination. She is here to establish care for annual physcial for her employment. 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 Feb, Wellness examination (ICD-10 - Z00.00) Personalized [...] Stress test ordered to rule out abnormalities. [employer] Other Evaluation noteNo assessment information available [place] Work Phone: Evaluation note* Diagnosis Amenorrhea- Primary [...] of ([facility]) [facility] Third trimester ([facility]-HCC) state, incidental 36 weeks gestation of ([facility]) [facility] Narrative - Reported* Type Description Date Medical History Left elbow dislocation 2011 [employer] Other Summary Purpose Family History No Family [...] DATE CREATED AUTHOR AUTHOR'S ORGANIZ ATION 05/24/2023 [facility] DATE CREATED AUTHOR AUTHOR'S ORGANIZ ATION 02/20/2024 [facility] DATE CREATED AUTHOR AUTHOR'S ORGANIZ ATION 01/16/2025 [facility] EPIC DATE CREATED AUTHOR AUTHOR'S ORGANIZ ATION 01/27/2025 [facility] REASON FOR VISIT (unrecogniz ed section and content) Reason Comments Gynecologic Exam Reason Comments Follow-up Reason Comments Initial Visit Nurse Visit Reason Comments Amenorrhea Reason Comments Routine Visit Care Teams (unrecognized sec tion and content) Team Status: Inactive Member Role Status Dates Lisandro Buitrago DO Attending Provider Active Provider Enrollment Specialist Relationship Specialty Start Date End Date Unallocated, Torrey Horn MD [address] [place] [address] PCP - General Family Medicine 06/23/23 Provider Enrollment Specialist Relationship Specialty Start Date End Date Unallocated, Torrey Horn MD [facility] [place] [address] [address] PCP - General Family Medicine 06/23/23 Provider Enrollment Specialist Relationship Specialty Start Date End Date Unallocated, Torrey Horn MD [facility] [place] [address] PCP - General Family Medicine 06/23/23 Provider Enrollment Specialist Relationship Specialty Start Date End Date Unallocated, Torrey Horn MD [address] [place] [address] PCP - General Family Medicine 06/23/23 Provider Enrollment Specialist Relationship Specialty Start Date End Date Unallocated, Torrey Horn MD [address] [place] [address] PCP - General Family Medicine 06/23/23 Provider Enrollment Specialist Relationship Specialty Start Date End Date Unallocated, Torrey Horn MD [facility] [address] PCP - General Family Medicine 06/23/23 Provider Enrollment Specialist Relationship Specialty Start Date End Date Unallocated, Torrey Horn MD [facility] [address] [place] [address] PCP - General Family Medicine 06/23/23 Provider Enrollment Specialist Relationship Specialty Start Date End Date Unallocated, Torrey Horn MD [address] [place] [address] PCP - General Family Medicine 06/23/23 Provider Enrollment Specialist Relationship Specialty Start Date End Date Unallocated, Torrey Horn MD [address] [place] [address] PCP - General Family Medicine 06/23/23 Provider Enrollment Specialist Relationship Specialty Start Date End Date Unallocated, Torrey Horn MD [address] [place] [address] PCP - General Family Medicine 06/23/23 Provider Enrollment Specialist Relationship Specialty Start Date End Date Unallocated, Torrey Horn MD [address] [place] [address] PCP - General Family Medicine 06/23/23 Goals [...] BE BASED ON THE PRIMARY CLINICAL RECORDS. [facility]. provides no warranty or guarantee of the accuracy or completeness of information in this document.
== END 2025-01-29 12:10 | disposition home or self-care (01) ==
LOC: LAB 12:09
PROVIDERS: PCP Family Medicine; Visit Provider Obstetrics & Gynecology
DX: Z34.93 Encounter for supervision of normal pregnancy, unspecified, third trimester (principal); Z3A.36 36 weeks gestation of pregnancy
CPT/HCPCS: 87081

== ENCOUNTER 2025-02-01 06:58 | Outpatient (OUT) | payer OTHER, SELFPAY ==
--- OUTSIDE RECORDS SUMMARY | 2025-01-29 08:30 | XMS_ITS | Encounter Summary ---
Author Organization [facility] Address [address] [place] [address] Care Team Providers Care Microwave Technician Name Role Phone Unallocated, Noms Provider [facility] Reason for Visit * Reason Comments Routine Visit Encounter Details Date Type Department Care Team (Late st Contact Info) Description 01/29/2025 8:30 AM EDT Routine [facility] [address] [id number] José Lozano DO [address] [place] [address] Third trimester ([facility]); 36 weeks gestation of ([facility]) Social History Tobacco Use Types Packs/Day Years [...] Sign Reading Time Taken Comments Blood Pressure 128/86 01/29/2025 8:37 AM EDT Pulse - - Temperature - - Respiratory Rate - - Oxygen Saturation - - Inhaled Oxygen Concentration - - Weight 76.8 kg (169 lb 4 oz) 01/29/2025 8:37 AM EDT Height - - Body Mass Index 29.98 08/10/2024 2:55 PM EDT documented in this encounter Progress Notes * Rosaura Li NP - 01/29/2025 8:30 AM EDT Reason for Appointment: Patient [...] Grandfather Kwan Swiney Breast cancer Paternal Grandmother Broderickn Walp Lung cancer Paternal Grandmother Mademarthan Walp [...] nursing note reviewed. Exam conducted with a stylist assistant present. Vitals: Estimated body mass index is 29.98 kg/m?? as calculated from the following: Height as of 08/10/24: 5' 3 . Weight as of this encounter: 169 lb 4 oz. BP: 128/86 Patient's last menstrual period was 05/09/2024 (exact date). ASSESSMENT & PLAN ICD-10-CM 1. Third trimester ([facility]) Z34.93 POCT urinalysis dipstick manually resulted CULTURE, GROUP B STREP WITH SUSCEPTIBLITY CULTURE, GROUP B STREP WITH SUSCEPTIBLITY 2. 36 weeks gestation of ([facility]) Z3A.36 Return OB: Patient presents today for a routine obstetrics appointment. Patient is currently 36w0d . Patient states she is doing well but has complaints of being tired due to current . Patient has verbalizes frequent movement. labor precautions was discussed/given and patient was instructed to perform kick counts three times a day. Orders Placed This Encounter Procedures CULTURE, GROUP B STREP WITH SUSCEPTIBLITY POCT urinalysis dipstick manually resulted Follow Up: Patient is to return to office in 2 week for routine OB appointment. Documented by Rosaura Li NP on behalf of: José Lozano DO documented in this encounter Plan of Treatment Upcoming Encounters Date Type Department Care Team (Late st Contact Info) Description 02/08/2025 8:40 AM EDT Routine [facility] [address] [address] Rosaura Li NP [address] [place] [address] Scheduled Orders Name Type Priority Associated Diagnoses Orde r Schedule CULTURE, GROUP B STREP WITH SUSCEPTIBLITY Lab Routine Third trimester ([facility]) Expected: 01/29/2025, Expires: 01/29/2026 documented as of this encounter Goals Goal Patient Goal Type Associated Problems Recent Progress Patient-Stated? Author Reminders Care Plan OB Reminders No Jennifer Ayala RN documented as of this encounter Procedures Procedure Name Priority Date/Time Associated Diagnosis Comments POCT URINALYSIS DIPSTICK Routine 01/29/2025 8:42 AM EDT Third trimester ([facility]) documented in this encounter Results * (ABNORMAL) POCT urinalysis dipstick manually resulted (01/29/2025 8:42 AM EDT) Color, UA Yellow Clarity, UA Clear Glucose, UA Negative Negative - 2000(110) ++++ mg/dL Bilirubin, UA Negative Negative - 4(70) +++ mg/dL Ketones, UA Negative Negative - 160(16) ++++ mg/dL Spec Grav, UA 1.010 1 - 1.03 Blood, UA Negative Negative - 50 Mark/mcL pH, UA 7.0 5 - 9 Protein, UA Negative Negative - 2000(20) ++++ mg/dL Urobilinogen, UA 0.2 0.2 - 12 mg/dL Leukocytes, UA Positive Negative - 500+++ Mahsa/mcL Comment:3+ Nitrite, UA Negative Negative - Positive Urine 01/29/2025 8:42 AM EDT José Blake DO POINT OF CARE TEST ENTER/EDIT OR DERABLES Final Result documented in this encounter Visit Diagnoses Diagnosis Third trimester ([facility]) state, incidental 36 weeks gestation of ([facility]) documented in this encounter Additional Health Concerns Active Problems Noted Date Diagnosed Date OB Reminders 07/11/2024 documented as of this encounter Care Teams Microwave Technician Relationship Specialty Start Date End Date Unallocated, Noms Provider, [place] [address] PCP - General Family Medicine 06/23/23 documented as of this encounter
--- OUTSIDE RECORDS SUMMARY | 2025-02-01 07:00 | XMS_ITS | CCD ---
Author Organization [facility] Care Team Providers Care Ramp Flight Attendant Name Role Phone DR JANES GARCIA Admitting [...] LOZANO Attending Unavailable MANDY, NADINE Attending Unavailable BLAKE, ROCIO Attending Unavailable NADINE GALVAN Attending Unavailable BLAKE, ROCIO Attending Unavailable BLAKE, ROCIO Referring Unavailable MANDY, NADINE Attending Unavailable BLAKE, ROCIO Attending Unavailable ROSAURA LI Attending Unavailable BLAKE, ROCIO Attending Unavailable ATTILA BUNDY Attending Unavailable ATTILA [...] 08/21/2024 08/29/2024 Discontinued 21 day ethinyl estradiol 0.364791 mg/hr / etonogestrel 0.005 mg/hr vaginal system [...] UA Negative Negative - 4(70) +++ mg/dL [facility] Blood, UA Negative Negative - 50 Mark/mcL [facility] Clarity, UA Clear [facility] Color, UA Yellow [facility] Glucose, UA Negative Negative - 2000(110) ++++ mg/dL [facility] Interpretation and review of laboratory results Abnormal [facility] Ketones, UA Negative Negative - 160(16) ++++ mg/dL [facility] Leukocytes, UA Positive Negative - 500+++ Mahsa/mcL [facility] Comment on above: 3+ Nitrite, UA Negative Negative - Positive [facility] pH, UA 7 5 - 9 [facility] Protein, UA Negative Negative - 1999(20) ++++ mg/dL [facility] Spec Grav, UA 1.01 1 - 1.03 [facility] Urobilinogen, UA 0.2 0.2 - 12 mg/dL [facility] Rad - Other Radiology Report on 01-26-2025 Rad - Other Radiology Report [id number] [facility]-STRESS on 01-25-2025 [place] [address] Ultrasound Report Signed Patient: ALONDRA BEAVER MR#: [id number] : 1995 Acct:[id number] Age/Sex: 29 / F ADM Date: 01/25/25 Loc: US Attending Dr: Rocio Lozano D.O. Ordering Physician: Rocio Lozano D.O. Date of Service: 01/25/25 Procedure(s): US OB BPP w non-stress Accession Number(s): [id number] cc: Rocio Lozano D.O.; Zita Alanis M.D. [address] [address] Patient Name: ALONDRA BEAVER MRN: [facility]:[id number] date: 1995 Sex: F Assigned Patient Location: [facility] Current Patient Location: Accession/Order Number: [id number] Exam Date: 01/25/2025 07:01 Report Date: 01/25/2025 08:50 At the request of: ROCIO LOZANO DO [...] Lu M.D. 01/25/2025 8:50 AM Dictation Location: [place] [address] Electronically authenticated by: [id number] Y Date: 01/25/2025 08:50 Dictated By: Zita Lu M.D. Signed By: 01/25/25 0852 DD/ 0850 TD/TT: Neurology Hospitalist: [facility] Radiology, Radiologist, MD - 01/25/2025 [place] [address] Ultrasound Report Signed Patient: ALONDRA BEAVER MR#: [id number] : 1995 Acct:[id number] Age/Sex: 29 / F ADM Date: 01/25/25 Loc: US Attending Dr: Rocio Lozano D.O. Ordering Physician: Rocio Lozano D.O. Date of Service: 01/25/25 Procedure(s): US OB BPP w non-stress Accession Number(s): [id number] cc: Rocio Lozano D.O.; Zita Alanis M.D. [place] [id number] Patient Name: ALONDRA BEAVER MRN: [id number] date: 1995 Sex: F Assigned Patient Location: [facility] Current Patient Location: Accession/Order Number: [id number] Exam Date: 01/25/2025 07:01 Report Date: 01/25/2025 08:50 At the request of: ROCIO LOZANO DO [...] Lu M.D. 01/25/2025 8:50 AM Dictation Location: [place] Electronically authenticated by: [id number] Y Date: 01/25/2025 08:50 Dictated By: Zita Lu M.D. Signed By: 01/25/2552 DD/ TD/TT: Neurology Hospitalist: [facility] Radiology Study observation (narrative) [facility] US OB BPP W NON-STRESS Ordered By: Radiologist Radiology on 01-25-2025 [facility] Work Phone: US OB BPP W NON-STRESS on 01-18-2025 [place] [address] Ultrasound Report Signed Patient: ALONDRA BEAVER MR#: [id number] : 1995 Acct:[id number] Age/Sex: 29 / F ADM Date: 01/18/25 Loc: US Attending Dr: Rocio Lozano D.O. Ordering Physician: Rocio Lozano D.O. Date of Service: 01/18/25 Procedure(s): US OB BPP w non-stress Accession Number(s): [id number] cc: Rocio Lozano D.O.; Zita Alanis M.D. [place] [address] Patient Name: ALONDRA BEAVER MRN: [id number] date: 1995 Sex: F Assigned Patient Location: [facility] Current Patient Location: Accession/Order Number: [id number] Exam Date: 01/18/2025 07:04 Report Date: 01/18/2025 08:45 At the request of: ROCIO LOZANO DO [...] Lu M.D. 01/18/2025 8:45 AM Dictation Location: [place] Electronically authenticated by: [id number] Y Date: 01/18/2025 08:45 Dictated By: Zita Lu M.D. Signed By: 01/18/2548 DD/ 4 TD/TT: Neurology Hospitalist: [facility] Radiology, Radiologist, - 01/18/2025 [place] [address] Ultrasound Report Signed Patient: ALONDRA BEAVER MR#: [id number] : 1995 Acct:[id number] Age/Sex: 29 / F ADM Date: 01/18/25 Loc: US Attending Dr: Rocio Lozano D.O. Ordering Physician: Rocio Lozano D.O. Date of Service: 01/18/25 Procedure(s): US OB BPP w non-stress Accession Number(s): [id number] cc: Rocio Lozano D.O.; Zita Alanis M.D. [place] [address] Patient Name: ALONDRA BEAVER MRN: [facility]:[id number] date: 1995 Sex: F Assigned Patient Location: [facility] Current Patient Location: US Accession/Order Number: [id number] Exam Date: 01/18/2025 07:04 Report Date: 01/18/2025 08:45 At the request of: ROCIO LOZANO DO [...] Lu M.D. 01/18/2025 8:45 AM Dictation Location: [place] [address] Electronically authenticated by: [id number] Y Date: 01/18/2025 08:45 Dictated By: Zita Lu M.D. Signed By: 01/18/2548 DD/ 4 TD/TT: Neurology Hospitalist: [facility] Radiology Study observation (narrative) [facility] US OB BPP W NON-STRESS Ordered By: Radiologist Radiology on 01-18-2025 [facility] Work Phone: Urinalysis macro (dipstick) panel (U)on 01-15-2025 Bilirubin, UA Negative Negative - 4(70) +++ mg/dL [facility] Blood, UA Negative Negative - 50 Mark/mcL [facility] Clarity, UA Clear [facility] Color, UA Yellow [facility] Glucose, UA Negative Negative - 1999(110) ++++ mg/dL [facility] Interpretation and review of laboratory results Abnormal [facility] Ketones, UA Negative Negative - 160(16) ++++ mg/dL [facility] Leukocytes, UA Positive Negative - 500+++ Mahsa/mcL [facility] Comment on above: 1+ Nitrite, UA Negative Negative - Positive [facility] pH, UA 6 5 - 9 [facility] Protein, UA Negative Negative - 2000(20) ++++ mg/dL [facility] Spec Grav, UA 1.02 1 - 1.03 [facility] Urobilinogen, UA 0.2 0.2 - 12 mg/dL [facility] Outside Recordson 01-09-2025 Outside Records [id number] 432[facility] [id number] 16[facility] BPP W NON-STRESS on 01-08-2025 [place] [address] Ultrasound Report Signed Patient: ALONDRA BEAVER MR#: [id number] : 1995 Acct:[id number] Age/Sex: 29 / F ADM Date: 01/08/25 Loc: US Attending Dr: Rocio Lozano D.O. Ordering Physician: Rocio Lozano D.O. Date of Service: 01/08/25 Procedure(s): US OB BPP w non-stress Accession Number(s): [id number] cc: Rocio Lozano D.O.; Zita Alanis M.D. [place] [address] Patient Name: ALONDRA BEAVER MRN: [facility]:[id number] date: 1995 Sex: F Assigned Patient Location: US Current Patient Location: [facility] [place] Accession/Order Number: [id number] Exam Date: 01/08/2025 12:03 Report Date: 01/08/2025 12:44 At the request of: ROCIO LOZANO DO Procedure: US OB BPP w non-stress Biophysical profile. Reason for exam: Abnormal BPP. COMPARISON: 01/04/2025 TECHNIQUE: Transabdominal imaging of the gravid uterus was obtained. FINDINGS: The disability program navigator reports a BPP of 8 out of 8. ZULMA is normal at 14.8 cm. heart rate 135 bpm. US/US OB BPP w non-stress IMPRESSION: BPP 8 out of 8. Impression dictated by: Terry Puentes Jr., D.O. 01/08/2025 12:44 PM Dictation Location: [place] [address] Electronically authenticated by: [id number] Y Date: 01/08/2025 12:44 Dictated By: Terry Puentes M.D. Signed By: 01/08/25 1246 DD/ 1244 TD/TT: Neurology Hospitalist: [facility] Radiology, Radiologist, - 01/08/2025 [place] [address] Ultrasound Report Signed Patient: ALONDRA BEAVER MR#: [id number] : 1995 Acct:[id number] Age/Sex: 29 / F ADM Date: 01/08/25 Loc: US Attending Dr: Rocio Lozano D.O. Ordering Physician: Rocio Lozano D.O. Date of Service: 01/08/25 Procedure(s): US OB BPP w non-stress Accession Number(s): [id number] cc: Rocio Lozano D.O.; Zita Alanis M.D. [facility] [address] [place] [address] Patient Name: ALONDRA BEAVER MRN: [id number] date: 1995 Sex: F Assigned Patient Location: US Current Patient Location: [facility] [place] Accession/Order Number: [id number] Exam Date: 01/08/2025 12:03 Report Date: 01/08/2025 12:44 At the request of: ROCIO LOZANO DO Procedure: US OB BPP w non-stress Biophysical profile. Reason for exam: Abnormal BPP. COMPARISON: 01/04/2025 TECHNIQUE: Transabdominal imaging of the gravid uterus was obtained. FINDINGS: The disability program navigator reports a BPP of 8 out of 8. ZULMA is normal at 14.8 cm. heart rate 135 bpm. US/US OB BPP w non-stress IMPRESSION: BPP 8 out of 8. Impression dictated by: Terry Puentes Jr., D.O. 01/08/2025 12:44 PM [facility]ictation [facility] Electron[facility] authenticated by: [id number] Y Date: 01/08/2025 12:44 Dictated By: Terry Puentes M.D. Signed By: 01/08/25 1246 DD/ 1244 TD/TT: Neurology Hospitalist: [facility] Radiology Study observation (narrative) [facility] US OB BPP W NON-STRESS Ordered By: Radiologist Radiology on 01-08-2025 [facility] Work Phone: US OB BPP W NON-STRESS on 01-04-[address] [address] Ultrasound Report Signed Patient: ALONDRA BEAVER MR#: [id number] : 1995 Acct:[id number] Age/Sex: 29 / F ADM Date: 01/04/25 Loc: US Attending Dr: Rocio Lozano D.O. Ordering Physician: Rocio Lozano D.O. Date of Service: 01/04/25 Procedure(s): US OB BPP w non-stress Accession Number(s): [id number] cc: Rocio Lozano D.O.; Zita Alanis M.D. [place] [id number] Patient Name: ALONDRA BEAVER MRN: [id number]:[id number] date: 1995 Sex: F Assigned Patient Location: [facility] Current Patient Location: Accession/Order Number: [id number] Exam Date: 01/04/2025 07:10 Report Date: 01/04/2025 [...] [Y] 2/2 ZULMA: 13.4 cm Total score: 8 US/US OB BPP w non-stress IMPRESSION: FAILED BIOPHYSICAL PROFILE Impression dictated by: Zita Lu M.D. 01/04/2025 10:27 AM Dictation Location: [place] Electronically authenticated by: [id number] Y Date: 01/04/2025 10:27 Dictated By: Zita Lu M.D. Signed By: 01/04/25 1030 DD/ 1027 TD/TT: Neurology Hospitalist: [facility] Radiology, Radiologist, - 01/04/2025 [place] [address] Ultrasound Report Signed Patient: ALONDRA BEAVER MR#: [id number] : 1995 Acct:[id number] Age/Sex: 29 / F ADM Date: 01/04/25 Loc: US Attending Dr: Rocio Lozano D.O. Ordering Physician: Rocio Lozano D.O. Date of Service: 01/04/25 Procedure(s): US OB BPP w non-stress Accession Number(s): [id number] cc: Rocio Lozano D.O.; Zita Alanis M.D. [place] [address] Patient Name: ALONDRA BEAVER MRN: [facility]:[id number] date: 1995 Sex: F Assigned Patient Location: [facility] Current Patient Location: Accession/Order Number: [id number] Exam Date: 01/04/2025 07:10 Report Date: 01/04/2025 10:27 At the request of: ROCIO LOZANO DO Procedure: US OB BPP w non-stress BIOPHYSICAL PROFILE: CLINICAL INFORMATION: ZULMA BORDERLINE LOW O28.8 COMPARISON: None There is a single live intrauterine gestation in cephalic presentation. The reported gestational age is 32 weeks 3 days. The heart rate [id number] beats per minute. FINDINGS: TONE: 1 or [...] Lu M.D. 01/04/2025 10:27 AM Dictation Location: [employer] Electronically authenticated by: [id number] Y Date: 01/04/2025 10:27 Dictated By: Zita Lu M.D. Signed By: 01/04/25 1030 DD/ 1027 TD/TT: Neurology Hospitalist: [facility] Radiology Study observation (narrative) [facility] US OB BPP W NON-STRESS Ordered By: Radiologist Radiology on 01-04-2025 [facility] Work Phone: Urinalysis macro (dipstick) panel (U)on 01-02-2025 Bilirubin, UA Negative Negative - 4(70) +++ mg/dL [facility] Blood, UA Negative Negative - 50 Mark/mcL [facility] Clarity, UA Clear [facility] Color, UA Yellow [facility] Glucose, UA Negative Negative - 1999(110) ++++ mg/dL [facility] Interpretation and review of laboratory results Abnormal [facility] Ketones, UA Negative Negative - 160(16) ++++ mg/dL [facility] Leukocytes, UA Positive Negative - 500+++ Mahsa/mcL [facility] Comment on above: Trace Nitrite, UA Negative Negative - Positive [facility] pH, UA 6.5 5 - 9 [facility] Protein, UA Negative Negative - 1999(20) ++++ mg/dL [facility] Spec Grav, UA 1.015 1 - 1.03 [facility] Urobilinogen, UA 0.2 0.2 - 12 mg/dL [facility] US OB FOLLOW UP TRANSABDOMIN [...] UA Negative Negative - 4(70) +++ mg/dL [facility] Blood, UA Negative Negative - 50 Mark/mcL [facility] Clarity, UA Clear [facility] Color, UA Yellow [facility] Glucose, UA Negative Negative - 2000(110) ++++ mg/dL [facility] Interpretation and review of laboratory results Abnormal [facility] Ketones, UA Negative Negative - 160(16) ++++ mg/dL [facility] Leukocytes, UA 3+ Negative - 500+++ Mahsa/mcL [facility] pH, UA 6 5 - 9 [facility] Protein, UA Negative Negative - 2000(20) ++++ mg/dL [facility] Spec Grav, UA 1.015 1 - 1.03 [facility] Urobilinogen, UA 0.2 0.2 - 12 mg/dL [facility] GLUCOSE TOLERANCE 3 HOURon 0 11-28-2024 GLUCOSE TOLERANCE 3 HOUR mg/dL [facility] Comment on above: GLU FAST 93 (<95) Co l: 11/28/24 0641 GLU 1HR 149 (<180) Col: 11/28/24 0743 GLU 2HR 118 (<155) Col: 11/28/24 0843 GLU 3HR 81 (<140) Col: 11/28/24 0942 [facility] ALL CBC WITH AUTO DIFFon BASOPHILS ABSOLUTE AUTO 0 [facility] Basophils/100 WBC (Bld) 0.4 % 0.2 - 2.0 % [facility] Eosinophils/100 WBC (Bld) 1.2 % 0.9 - 7.0 % [facility] Erythrocyte distribution width (RBC) [Ratio] 13 % 11.0 - 15.0 % [facility] Hematocrit (Bld) [Volume fraction] 35.6 % Low 36.0 - 48.0 % [facility] Hemoglobin (Bld) [Mass/Vol] 11.9 g/dL Low 12.0 - 16.0 g/dL [facility] IMMATURE GRANULOCYTES ABS AUTO 0.13 High [facility] Immature granulocytes/100 WBC (Bld) 1.2 % High 0.0 - 0.5 % [facility] Interpretation and review of laboratory results Abnormal [facility] LYMPHOCYTES ABSOLUTE AUTO 1.3 [facility] Lymphocytes/100 WBC (Bld) 11.6 % Low 20.5 - 60.0 % [facility] MCH (RBC) [Entitic mass] 30.9 pg 26.7 - 34.0 pg [facility] MCHC (RBC) [Mass/Vol] 33.4 g/dL 29.9 - 35.2 g/dL [facility] MCV (RBC) [Entitic vol] 92.5 fL 81.0 - 99.0 fL [facility] MONOCYTES ABSOLUTE AUTO 0.5 [facility] Monocytes/100 WBC (Bld) 4.9 % 1.7 - 12.0 % [facility] NEUTROPHILS ABSOLUTE AUTO 8.8 High [facility] Neutrophils/100 WBC (Bld) 80.7 % High 43.0 - 75.0 % [facility] Platelet mean volume (Bld) [Entitic vol] 10.5 fL 9.5 - 13.5 fL [facility] TBH EO # 0.1 [facility] TB PLT 198 [facility] TB RBC 3.85 Low [facility] TB WBC 10.9 [facility] Urinalysis macro (dipstick) panel (U)on 11-22-2024 Bilirubin, UA Negative Negative - 4(70) +++ mg/dL [facility] Blood, UA Negative Negative - 50 Mark/mcL [facility] Clarity, UA Clear [facility] Color, UA Yellow [facility] Glucose, UA Negative Negative - 1999(110) ++++ mg/dL [facility] Interpretation and review of laboratory results Abnormal [facility] Ketones, UA Negative Negative - 160(16) ++++ mg/dL [facility] Leukocytes, UA Moderate Negative - 500+++ Mahsa/mcL [facility] Nitrite, UA Negative Negative - Positive [facility] pH, UA 6 5 - 9 [facility] Protein, UA Negative Negative - 1999(20) ++++ mg/dL [facility] Spec Grav, UA 1.01 1 - 1.03 [facility] Urobilinogen, UA 0.2 0.2 - 12 mg/dL [facility] Urinalysis macro (dipstick) panel (U)on 10-26-2024 Bilirubin, UA Negative Negative - 4(70) +++ mg/dL [facility] Blood, UA Negative Negative - 50 Mark/mcL [facility] Clarity, UA Clear [facility] Color, UA Yellow [facility] Glucose, UA Negative Negative - 1999(110) ++++ mg/dL [facility] Interpretation and review of laboratory results Normal [facility] Ketones, UA Negative Negative - 160(16) ++++ mg/dL [facility] Leukocytes, UA Negative Negative - 500+++ Mahsa/mcL [facility] Nitrite, UA Negative Negative - Positive [facility] pH, UA 6.5 5 - 9 [facility] Protein, UA Negative Negative - 1999(20) ++++ mg/dL [facility] Spec Grav, UA 1.02 1 - 1.03 [facility] Urobilinogen, UA 0.2 0.2 - 12 mg/dL [facility] US OB 14+ WEEKS ANATOMY [...] II, MD, PHD at 27-Oct-2024 06:14:52 AM [facility] Normal Not Available Comment on above: Order Comment: US OB ANATOMY SINGLE W US OB CERVICAL LENGTH Estimated Date of Delivery: 02/26/25 Gestational Age as of 09/28/2024: 18w3d BOX TESTon 08-29-2024 BOX TEST SENT OUT [facility] BOX1 [facility] BOX2 08-29-24 Reviews42 BOX [facility] Urinalysis macro (dipstick) panel (U)on 08-29-2024 Bilirubin, UA Negative Negative - 4(70) +++ mg/dL [facility] Blood, UA Negative Negative - 50 Mark/mcL [facility] Clarity, UA Clear [facility] Color, UA Yellow [facility] Glucose, UA Negative Negative - 1999(110) ++++ mg/dL [facility] Interpretation and review of laboratory results Normal [facility] Ketones, UA Negative Negative - 160(16) ++++ mg/dL [facility] Leukocytes, UA Negative Negative - 500+++ Mahsa/mcL [facility] Nitrite, UA Negative Negative - Positive [facility] pH, UA 6 5 - 9 [facility] Protein, UA Negative Negative - 2000(20) ++++ mg/dL [facility] Spec Grav, UA 1.02 1 - 1.03 [facility] Urobilinogen, UA 0.2 0.2 - 12 mg/dL [facility] HCG ( test) Ql (U)o n 08-10-2024 Interpretation and review of laboratory results Abnormal [facility] Preg Test, Ur Positive Negative [facility] US OB < 14 WEEKS [...] II, MD, PHD at 11-Aug-2024 08:40:37 AM [facility] Normal Not Available Comment on above: Order Comment: US OB Patient's last menstrual period was 05/09/2024 (exact date). Urinalysis macro (dipstick) panel (U)on 08-10-2024 Bilirubin, UA Negative Negative - 4(70) +++ mg/dL [facility] Blood, UA Negative Negative - 50 Mark/mcL [facility] Clarity, UA Clear [facility] Color, UA Yellow [facility] Glucose, UA Negative Negative - 2000(110) ++++ mg/dL [facility] Interpretation and review of laboratory results Abnormal [facility] Ketones, UA Positive Negative - 160(16) ++++ mg/dL [facility] Comment on above: 40 Leukocytes, UA Negative Negative - 500+++ Mahsa/mcL [facility] Nitrite, UA Negative Negative - Positive [facility] pH, UA 5.5 5 - 9 [facility] Protein, UA Negative Negative - 2000(20) ++++ mg/dL [facility] Spec Grav, UA 1.02 1 - 1.03 [facility] Urobilinogen, UA 0.2 0.2 - 12 mg/dL [facility] Outside Recordson 04-20-2024 Outside Records [id number] [facility] 03-31-2024 Outside Records [id number] 6#1.00[facility] Consent Formson 02-18-2024 Consent Forms [id number] 3D#1.00[facility] Cytology Cervical or vaginal smear or scraping studyon 02-08-2024 [facility] HCG ( test) Ql (U)o n 02-08-2024 Interpretation and review of laboratory results Normal [facility] Preg Test, Ur Negative [facility] CMP Standardon 02-03-2024 eGFR Non AA >60 Invalid Interpretation Code [facility] Comment on above: Performed By: #### 1 [id number], [id number], [id number], [id number], [id number], [id number], [id number] #### [facility] (DEFAULT) [address] [place] [address] eGFR AA >60 Invalid Interpretation Code [facility] Comment on above: Performed By: #### 1 [id number], [id number], [id number], 1295750, 8334221, 2374140, [id number] #### [facility] (DEFAULT) [address] [place] [address] Albumin [Mass/Vol] 4.4 g/dL Normal 3.5-5.0 [facility] Comment on above: Performed By: #### 1 [id number], [id number], [id number], 9721820, 5466735, 9911197, 2695986 #### [facility] (DEFAULT) [address] [place] [address] Albumin/Globulin [Mass ratio] 1.4 {ratio} Normal 1.4-2.6 [facility] Comment on above: Performed By: #### 1 [id number], [id number], 0437324, 4850721, 2053840, 1900308, 0444595 #### [facility] (DEFAULT) [address] [place] [address] Alk Phos 67 IU/L Normal 32-91 [facility] Comment on above: Performed By: #### 1 [id number], [id number], 0841746, 4187064, 1818202, 7007289, 9283602 #### [facility] (DEFAULT) [address] [place] [address] ALT [Catalytic activity/Vol] 19.0 U/L Normal 14.0-54.0 [facility] Comment on above: Performed By: #### 1 [id number], [id number], 5003871, 6280037, 2983851, 4228598, 6657568 #### [facility] (DEFAULT) [address] [place] [address] Anion gap [Moles/Vol] 10.8 mmol/L Normal 5.0-19.0 [facility] Comment on above: Performed By: #### 1 [id number], [id number], 2105595, 4729327, 5125599, 3885313, 9774660 #### [facility] (DEFAULT) [address] [place] [address]67 AST [Catalytic activity/Vol] 21 U/L Normal 15-41 [facility] Comment on above: Performed By: #### 1 [id number], [id number], [id number], 2654346, 2877530, 5803258, 3704926 #### [facility] (DEFAULT) [address] [place] [address] Bili Total 0.7 mg/dL Normal 0.3-1.2 [facility] Comment on above: Performed By: #### 1 [id number], [id number], 4719124, 7368681, 8210071, 6783553, 1768458 #### [facility] (DEFAULT) [address] [place] [address] 49536 Calcium [Mass/Vol] 8.9 mg/dL Normal 8.9-10.3 [facility] Comment on above: Performed By: #### 1 [id number], [id number], 1503659, 0107907, 9470623, 4500386, 6283216 #### [facility] (DEFAULT) [address] [place] [address] 12525 Chloride [Moles/Vol] 100 mmol/L Low 101-111 [facility] Comment on above: Performed By: #### 1 [id number], [id number], 3904284, 0003643, 7104465, 6949705, 1604923 #### [facility] (DEFAULT) [address] [place] [address] 65733 CO2 [Moles/Vol] 26 mmol/L Normal 21-32 [facility] Comment on above: Performed By: #### 1 [id number], [id number], 6085157, 8879087, 5425243, 6888973, 6883238 #### [facility] (DEFAULT) [address] [place] [address] 17018 Creatinine [Mass/Vol] 0.86 mg/dL Normal 0.60-1.30 [facility] Comment on above: Performed By: #### 1 [id number], [id number], 6398437, 8778467, 7165439, 5926282, 9046970 #### [facility] (DEFAULT) [address] [place] [address] 56596 Globulin (S) [Mass/Vol] 3.1 g/dL Normal 1.5-4.3 [facility] Comment on above: Performed By: #### 1 [id number], [id number], 9041390, 0855448, 2984037, 9120442, 3246067 #### [facility] (DEFAULT) [address] [place] [address] 92415 Glucose [Mass/Vol] 90.0 mg/dL Normal 74.0-118.0 [facility] Comment on above: Performed By: #### 1 [id number], [id number], 7352845, 4056699, 5957136, 9398818, 0830966 #### [facility] (DEFAULT) [address] [place] [address] 15163 Osmolality 267 mOsm/L Invalid Interpretation Code [facility] Comment on above: Performed By: #### 1 [id number], [id number], 4152824, 1790853, 3531954, 9132434, 0885156 #### [facility] (DEFAULT) [address] [place] [address] 83695 Potassium [Moles/Vol] 3.8 mmol/L Normal 3.6-5.1 [facility] Comment on above: Performed By: #### 1 [id number], 5139298969, 5327487, 1659859, 3629418, 9883598, 2501144 #### [facility] (DEFAULT) [address] [place] [address] 28969 Protein [Mass/Vol] 7.5 g/dL Normal 6.5-8.1 [facility] Comment on above: Performed By: #### 1 [id number], [id number], 4306492, 2533869, 8135914, 5076732, 9448042 #### [facility] (DEFAULT) [address] [place] [address] 32336 Sodium [Moles/Vol] 133.0 mmol/L Low 136.0-144.0 [facility] Comment on above: Performed By: #### 1 [id number], [id number], 1551199, 8648100, 7242838, 8598519, 2003724 #### [facility] (DEFAULT) [address] [place] [address] 95916 Urea nitrogen [Mass/Vol] 17 mg/dL Normal - [facility] Comment on above: Performed By: #### 1 [id number], [id number], 3636350, 8041053, 9214894, 9593287, 3773632 #### [facility] (DEFAULT) [address] [place] [address] Urea nitrogen/Creatinine [Mass ratio] 19.7 mg/mg High 4.6-16.2 [facility] Comment on above: Performed By: #### 1 [id number], [id number], 6059101, 8779764, 0437950, 6765939, 0566331 #### [facility] (DEFAULT) [address] [place] [address] 49959 GGTon 02-03-2024 Gamma glutamyl transferase [Catalytic activity/Vol] 20.0 U/L Normal 7.0-50.0 [facility] Comment on above: Performed By: #### 1 [id number], [id number], 7648784, 4583455, 8777248, 3824280, 1653540 #### [facility] (DEFAULT) [address] [place] [address] 12165 Iron Levelon 02-03-2024 Iron [Mass/Vol] 93.0 ug/dL Normal 28.0-170.0 [facility] Comment on above: Performed By: #### 1 [id number], [id number], 9472321, 9966778, 7163345, 7428318, 9605378 #### [facility] (DEFAULT) [address] [place] [address] 38350 LDHon 02-03-2024 LDH 126.0 IU/L Normal 98.0-192.0 [facility] Comment on above: Performed By: #### 1 [id number], 1017774972, 1538782, 2378525, 1142726, 2941248, 2502075 #### [facility] (DEFAULT) [address] [place] [address] 01093 Lipid Panel Standardon 02-02 Cholesterol [Mass/Vol] 214.0 mg/dL High 66.0-200.0 [facility] Comment on above: Performed By: #### 1 [id number], 1089926150, 6186046, 3980161, 1959623, 0324617, 9400265 #### [facility] (DEFAULT) [address] [place] [address] 92571 Cholesterol in HDL [Mass/Vol] 64 mg/dL Normal 40-71 [facility] Comment on above: Performed By: #### 1 [id number], 0890715834, 0641367, 8090971, 7000982, 3021021, 9963255 #### [facility] (DEFAULT) [address] [place] [address] 71961 Cholesterol in LDL [Mass/Vol] 144 mg/dL High 1-100 [facility] Comment on above: Performed By: #### 1 [id number], 1580511675, 1914433, 3502393, 7814833, 2440972, 5166064 #### [facility] (DEFAULT) [address] [place] [address] 01968 Cholesterol.total/C holesterol in HDL [Mass ratio] 3.3 {ratio} Normal 0.0-4.5 [facility] Comment on above: Performed By: #### 1 [id number], 9747927261, 6498293, 3794311, 5501915, 7218208, 6682094 #### [facility] (DEFAULT) [address] [place] [address] 98238 Triglyceride [Mass/Vol] 28.0 mg/dL Normal 0.0-150.0 [facility] Comment on above: Performed By: #### 1 [id number], 9361324141, 3645528, 5888787, 1573432, 7209266, 5113171 #### [facility] (DEFAULT) [address] [place] [address] VLDL. 6 mg/dL Normal 5-40 [facility] Comment on above: Performed By: #### 1 [id number], [id number], 2652662, 8328310, 5088151, 1627987, 7169461 #### [facility] (DEFAULT) [address] [place] [address] 44875 Phoson 02-03-2024 Phosphate [Mass/Vol] 2.9 mg/dL Normal 2.5-4.6 [facility] Comment on above: Performed By: #### 1 [id number], 6200312307, 8555356, 2231801, 6515880, 8949406, 5607932 #### [facility] (DEFAULT) [address] [place] [address] 53670 Uric Acidon 02-03-2024 Urate [Mass/Vol] 4.0 mg/dL Normal 2.6-8.0 [facility] Comment on above: Performed By: #### 1 [id number], 9674557981, 8332379, 9446457, 7533295, 8890941, 5253637 #### [facility] (DEFAULT) [address] [place] [address] 44688 XR chest 2V*on 03-02-2023 XR chest 2V* [facility] [place] [address] XRay Report Signed Patient: Alondra Sanches MR#: [id number] : 1995 Acct:[id number] Age/Sex: 27 / F ADM Date: 03/02/23 [facility] Attending Dr: Lisandro Buitrago DO Copies to: Lisandro Buitrago DO Ordering Provider: Lisandro Buitrago DO Date of Service: 03/02/23 XR/XR shoulder LT min 2V*: Left shoulder pain ([id number]) XR/XR chest 2V*: Left shoulder pain;Chest pain [...] Puentes Jr., Jeremy03/02/2023 4:13 PM Dictation Location: [place] [address] Transcribed By: [facility] 03/02/231612 Dictated By: Terry Puentes Jr, DO 03/02/231611 Signed By: 03/02/231612 Normal [facility] CBC W MANUAL DIFFon 07-29-19 22 ATYPICAL LYMPH # Normal [facility] Comment on above: Performed By: #### C GARRET #### [facility] [address] [place] [address] Dr. Susannah Hopkins ATYPICAL LYMPH % Normal [facility] Comment on above: Performed By: #### C BCMAN #### [facility] [address] [place] [address] [address] Susannah Hopkins BAND # 0.3 103/ul Normal 0.0-0.3 [facility] Comment on above: Performed By: #### C ESDRASMAN #### [facility] [address] [place] [address] [address] Susannah Hopkins BAND % 2 % Normal 0-5 [facility] Comment on above: Performed By: #### C BCMAN #### [facility] [address] [place] [address] [address] Susannah Hopkins BASOM # 0.00 103/ul Normal 0.00-0.10 [facility] Comment on above: Performed By: #### C BCMAN #### [facility] [address] [place] [address] Dr. Susannah Hopkins BASOM % 0.0 % Critically low 0.2-2.0 [facility] Comment on above: Performed By: #### C GARRET #### [facility] [address] [place] [address] [address] Susannah Hopkins BLAST # Normal [facility] Comment on above: Performed By: #### C BCMAN #### [facility] [address] [place] [address] [address] Susannah Hopkins BLAST % Normal [facility] Comment on above: Performed By: #### C BCOCTAVIANO #### [facility] [address] [place] [address] [address] Susannah Hopkins CORRECTED WBC Normal 4.0-11.0 [facility] Comment on above: Performed By: #### C BCMAN #### [facility] [address] [place] [address] [address] Susannah Hopkins EOS # 0.00 103/ul Normal 0.00-0.70 [facility] Comment on above: Performed By: #### C BCOCTAVIANO #### [facility] [address] [place] [address] Dr. Susannah Hopkins EOS% 0.0 % Critically low 0.9-7.0 [facility] Comment on above: Performed By: #### C BCOCTAVIANO #### [facility] [address] [place] [address] [address] Susannah Hopkins HCT 46.0 % Normal 36.0-48.0 [facility] Comment on above: Performed By: #### C BCOCTAVIANO #### [facility] [address] [place] [address] [address] Susannah Hopkins HGB 15.7 g/dl Normal 12.0-16.0 [facility] Comment on above: Performed By: #### C BCMAN #### [facility] [address] [place] [address] Dr. Susannah Hopkins LYMPHM # 0.69 103/ul Critically low 1.20-3.80 [facility] Comment on above: Performed By: #### C BCMAN #### [facility] [address] [place] [address] [address] Susannah Hopkins LYMPHM% 4.0 % Critically low 20.5-60.0 [facility] Comment on above: Performed By: #### C GARRET #### [facility] [address] [place] [address] [address] Susannah Hopkins MCH 30.1 pg Normal 26.7-34.0 [facility] Comment on above: Performed By: #### C GARRET #### [facility] [address] [place] [address] Dr. Susannah Hopkins MCHC 34.1 g/dl Normal 29.9-35.2 [facility] Comment on above: Performed By: #### C GARRET #### [facility] [address] [place] [address] Dr. Susannah Hopkins MCV 88.3 fL Normal 81.0-99.0 [facility] Comment on above: Performed By: #### C GARRET #### [facility] [address] [place] [address] Dr. Susannah Hopkins METAMYELOCYTE # Normal [facility] Comment on above: Performed By: #### C GARRET #### [facility] [address] [place] [address] Dr. Susannah Hopkins METAMYELOCYTE % Normal [facility] Comment on above: Performed By: #### C GARRET #### [facility] [address] [place] [address] Dr. Susannah Hopkins MONOM# 1.20 103/ul Critically high 0.30-0.80 [facility] Comment on above: Performed By: #### C GARRET #### [facility] [address] [place] [address] Dr. Susannah Hopkins MONOM% 7.0 % Normal 1.7-12.0 [facility] Comment on above: Performed By: #### C GARRET #### [facility] [address] [place] [address] Dr. Susannah Hopkins MPV 9.8 fL Normal 9.5-13.5 [facility] Comment on above: Performed By: #### C GARRET #### [facility] [address] [place] [address] Dr. Susannah Hopkins MYELOCYTE # Normal [facility] Comment on above: Performed By: #### C BCOCTAVIANO #### [facility] [address] [place] [address] [address] Susannah Hopkins MYELOCYTE % Normal [facility] Comment on above: Performed By: #### C BCMAN #### [facility] [address] [place] [address] [address] Susannah Hopkins NRBC Normal [facility] Comment on above: Performed By: #### C BCMAN #### [facility] [address] [place] [address] [address] Susannah Hopkins PLT 278 103/ul Normal 150-450 [facility] Comment on above: Performed By: #### C GARRET #### [facility] [address] [place] [address] [address] Susannah Hopkins RBC 5.21 106/ul Normal 4.20-5.40 [facility] Comment on above: Performed By: #### C GARRET #### [facility] [address] [place] [address] [address] Susannah Hopkins RDW 11.7 % Normal 11.0-15.0 [facility] Comment on above: Performed By: #### C BCOCTAVIANO #### [facility] [address] [place] [address] Dr. Susannah Hopkins SEG # 14.96 103/ul Critically high 1.40-6.50 [facility] Comment on above: Performed By: #### C BCOCTAVIANO #### [facility] [address] [address] [address] Susannah Hopkins SEG % 87.0 % Critically high 43.0-75.0 [facility] Comment on above: Performed By: #### C BCMAN #### [facility] [address] [place] [address] [address] Susannah Hopkins WBC 17.2 103/ul Critically high 4.0-11.0 [facility] Comment on above: Performed By: #### C BCOCTAVIANO #### [facility] [address] [place] [address] [address] Susannah Hopkins INFLUENZA A AND B AGon 07-28 INFLUANEGH SEE BELOW Normal [facility] Comment on above: Result Comment: Nega tive for Flu A protein angiten. Infection due to Flu A cannot be ruled out. Flu A angiten in the sample may be below the detection limit of the test. Performed By: #### I NFLUAB #### [facility] [address] [place] [address] Dr. Sus[facility] BEL[facility] Normal [facility] Comment on above: Result Comment: Nega tive for Flu B protein antigen. Infection due to Flu B cannot be ruled out. Flu B antigen in the sample may be below the detection limit of the test. Performed By: #### I NFLUAB #### [facility] [address] [place] [address] Dr. Susannah Hopkins INFLUENZA A AG Negative Normal NEGATIVE SEE COMMENT [facility] Comment on above: Performed By: #### I NFLUAB #### [facility] [address] [place] [address] Dr. Susannah Hopkins INFLUENZA B AG Negative Normal NEGATIVE SEE COMMENT [facility] Comment on above: Performed By: #### I NFLUAB #### [facility] [address] [place] [address] Dr. Susannah Hopkins INTERNAL CONTROLS Within Normal Limits Normal Within Normal Limits [facility] Comment on above: Performed By: #### I NFLUAB #### [facility] [address] [place] [address] Dr. Susannah Hopkins PREG HCG QUALon 07-28-2021 , QUAL Negative Normal NEGATIVE [facility] Comment on above: Performed By: #### P REG #### [facility] [address] [place] [address] Dr. Susannah Hopkins PROF 14(COMP METB)on 022 Albumin [Mass/Vol] 4.4 g/dL Normal 3.4-5.0 [facility] Comment on above: Performed By: #### C MP #### [facility] [address] [place] [address] Dr. Susannah Hopkins Albumin/Globulin [Mass ratio] 1.1 {ratio} Normal [facility] Comment on above: Performed By: #### C MP #### [facility] [address] [place] [address] [address] Susannah Hopkins ALP [Catalytic activity/Vol] 71 U/L Normal 46-116 [facility] Comment on above: Performed By: #### C MP #### [facility] [address] [place] [address] [address] Susannah Hopkins ALT [Catalytic activity/Vol] 19 U/L Normal 14-59 [facility] Comment on above: Performed By: #### C MP #### [facility] [address] [place] [address] Dr. Susannah Hopkins Anion gap [Moles/Vol] 15.1 mmol/L Normal [facility] Comment on above: Performed By: #### C MP #### [facility] [address] [place] [address] Dr. Susannah Hopkins AST [Catalytic activity/Vol] 23 U/L Normal 15-37 [facility] Comment on above: Performed By: #### C MP #### [facility] [address] [place] [address] Dr. Susannah Hopkins Bilirubin [Mass/Vol] 0.9 mg/dL Normal 0.2-1.3 [facility] Comment on above: Performed By: #### C MP #### [facility] [address] [place] [address] Dr. Susannah Hopkins Calcium [Mass/Vol] 9.5 mg/dL Normal 8.5-10.1 [facility] Comment on above: Performed By: #### C MP #### [facility] [address] [place] [address] Dr. uSsannah Hopkins Chloride [Moles/Vol] 101 mmol/L Normal 98-107 [facility] Comment on above: Performed By: #### C MP #### [facility] [address] [place] [address] Dr. Susannah Hopkins CO2 [Moles/Vol] 23.8 mmol/L Normal 22.0-30.0 [facility] Comment on above: Performed By: #### C MP #### [facility] [address] [address] [address] Susannah Hopkins Creatinine [Mass/Vol] 1.04 mg/dL Normal 0.52-1.04 [facility] Comment on above: Performed By: #### C MP #### [facility] [address] [place] [address] Dr. Susannah Hopkins EGFR-AF RWANDAN >60 Normal >=60 [facility] Comment on above: Performed By: #### C MP #### [facility] [address] [address] [address] Susannah Hopkins EGFR-NON AF RWANDAN >60 Normal >=60 [facility] Comment on above: Performed By: #### C MP #### [facility] [address] [place] [address] Dr. Susannah Hopkins Globulin (S) [Mass/Vol] 3.9 g/dL Normal [facility] Comment on above: Performed By: #### C MP #### [facility] [address] [place] [address] Dr. Susannah Hopkins Glucose [Mass/Vol] 157 mg/dL Critically high 74-106 [facility] Comment on above: Performed By: #### C MP #### [facility] [address] [place] [address] Dr. Susannah Hopkins Potassium [Moles/Vol] 3.9 mmol/L Normal 3.4-5.0 [facility] Comment on above: Performed By: #### C MP #### [facility] [address] [place] [address] Dr. Susannah Hopkins Protein [Mass/Vol] 8.3 g/dL Critically high 6.1-8.2 [facility] Comment on above: Performed By: #### C MP #### [facility] [address] [place] [address] Dr. Susannah Hopkins Sodium [Moles/Vol] 136 mmol/L Critically low 137-145 [facility] Comment on above: Performed By: #### C MP #### [facility] [address] [place] [address] Dr. Susannah Hopkins Urea nitrogen [Mass/Vol] 20.0 mg/dL Critically high 7.0-18.0 [facility] Comment on above: Performed By: #### C MP #### [facility] [address] [place] [address] [address] Susannah Hopkins Urea nitrogen/Creatinine [Mass ratio] 19.2 mg/mg Normal [facility] Comment on above: Performed By: #### C MP #### [facility] [id number] Susannah Hopkins Vital Signs Date Time Vital Sign Value Performing Clinician Facility 01-29-2025 08:37-0400 Body mass index (BMI) [Ratio] 29.98 kg/m2 Rocio Blake DO Work Phone: [facility] 01-29-2025 08:37-0400 Body weight 76.77 kg Rocio Blake DO Work Phone: [facility] 01-29-2025 08:37-0400 Diastolic blood pressure 86 mm[Hg] Rocio Blake DO Work Phone: [facility] 01-29-2025 08:37-0400 Systolic blood pressure 128 mm[Hg] Rocio Blake DO Work Phone: [facility] 01-15-2025 09:07-0400 Diastolic blood pressure 72 mm[Hg] Rosaura Li INFORMATION ASSURANCE ENGINEER Work Phone: [facility] 01-15-2025 09:07-0400 Systolic blood pressure 132 mm[Hg] Rosaura Li INFORMATION ASSURANCE ENGINEER Work Phone: [facility] 01-15-2025 09:06-0400 Body mass index (BMI) [Ratio] 29.85 kg/m2 Rosaura Li INFORMATION ASSURANCE ENGINEER Work Phone: [facility] 01-15-2025 09:06-0400 Body weight 76.43 kg Rosaura Li INFORMATION ASSURANCE ENGINEER Work Phone: [facility] 01-02-2025 08:26-0400 Body mass index (BMI) [Ratio] 28.96 kg/m2 Rocio Blake DO Work Phone: [facility] 01-02-2025 08:26-0400 Body weight 74.16 kg Rocio Blake DO Work Phone: [facility] 01-02-2025 08:26-0400 Diastolic blood pressure 76 mm[Hg] Rocio Blake DO Work Phone: [facility] 01-02-2025 08:26-0400 Systolic blood pressure 120 mm[Hg] Rocio Blake DO Work Phone: [facility] 12-19-2024 09:04-0400 Body mass index (BMI) [Ratio] 28.7 kg/m2 Nadine Galvan PA Work Phone: [facility] 12-19-2024 09:04-0400 Body weight 73.48 kg Nadine Mandy PA Work Phone: [facility] 12-19-2024 09:04-0400 Diastolic blood pressure 78 mm[Hg] Nadine Galvan PA Work Phone: [facility] 12-19-2024 09:04-0400 Systolic blood pressure 104 mm[Hg] Nadine Mandy PA Work Phone: [facility] 12-05-2024 09:23-0400 Body mass index (BMI) [Ratio] 28.52 kg/m2 Rocio Blake DO Work Phone: [facility] 12-05-2024 09:23-0400 Body weight 73.03 kg Rocio Blake DO Work Phone: [facility] 12-05-2024 09:23-0400 Diastolic blood pressure 76 mm[Hg] Rocio Blake DO Work Phone: [facility] 12-05-2024 09:23-0400 Systolic blood pressure 120 mm[Hg] Rocio Blake DO Work Phone: [facility] 11-22-2024 08:52-0400 Body mass index (BMI) [Ratio] 28.19 kg/m2 Nadine Mandy DE JESUS Work Phone: [facility] 11-22-2024 08:52-0400 Body weight 72.18 kg Nadine DE JESUS Work Phone: [facility] 11-22-2024 08:52-0400 Diastolic blood pressure 76 mm[Hg] Nadine Mandy DE JESUS Work Phone: [facility] 11-22-2024 08:52-0400 Systolic blood pressure 120 mm[Hg] Nadine DE JESUS Work Phone: [facility] 10-26-2024 12:05-0400 Body mass index (BMI) [Ratio] 26.93 kg/m2 Rocio Blake DO Work Phone: [facility] 10-26-2024 12:05-0400 Body weight 68.95 kg Rocio Blake DO Work Phone: [facility] 10-26-2024 12:05-0400 Diastolic blood pressure 68 mm[Hg] Rocio Blake DO Work Phone: [facility] [facility]24 12:05-0400 Systolic blood pressure 120 mm[Hg] Rocio Blake DO Work Phone: [facility] 08-29-2024 14:34-0400 Body mass index (BMI) [Ratio] 25.65 kg/m2 Rocio Blake DO Work Phone: [facility] 08-29-2024 14:34-0400 Body weight 65.68 kg Rocio Blake DO Work Phone: [facility] 08-29-2024 14:34-0400 Diastolic blood pressure 72 mm[Hg] Rocio Blake DO Work Phone: [facility] 08-29-2024 14:34-0400 Systolic blood pressure 120 mm[Hg] Rocio Blake DO Work Phone: [facility] 08-10-2024 14:55-0400 Body height 160 cm [facility] 08-10-2024 14:55-0400 Body mass index (BMI) [Ratio] 25.18 kg/m2 [facility] 08-10-2024 14:55-0400 Body weight 64.47 kg [facility] Nurse [facility] 08-10-2024 14:55-0400 Diastolic blood pressure 76 mm[Hg] [facility] Nurse [facility] 08-10-2024 14:55-0400 Systolic blood pressure 120 mm[Hg] [facility] Nurse [facility] 05-16-2024 12:44-0500 Body weight 65.32 kg Attila Bundy MD Work Phone: [facility] 05-16-2024 12:44-0500 Diastolic blood pressure 78 mm[Hg] Attila Bundy MD Work Phone: [facility] 05-16-2024 12:44-0500 Systolic blood pressure 120 mm[Hg] Attila Bundy MD Work Phone: [facility] 02-08-2024 15:08-0400 Body weight 66.22 kg Attila Bundy MD Work Phone: [facility] 02-08-2024 15:08-0400 Diastolic blood pressure 68 mm[Hg] Attila Bundy MD Work Phone: [facility] 02-08-2024 15:08-0400 Systolic blood pressure 130 mm[Hg] Attila Bundy MD Work Phone: [facility] 05-12-2023 07:30-0500 Body height 158.75 cm Tyrell Stiles Other [facility] [employer] Other 05-12-2023 07:30-0500 Body mass index (BMI) [Ratio] 25.41 kg/m2 Tyrell Stiles Other [facility] [employer] Other 05-12-2023 07:30-0500 Body weight 64.05 kg Tyrell Stiles Other [facility] [employer] Other 05-12-2023 07:30-0500 Diastolic blood pressure 78 mm[Hg] Tyrell Stiles Other [facility] [employer] Other 05-12-2023 07:30-0500 Respiratory rate 16 /min Tyrell Linsey Other [employer] Other 05-12-2023 07:30-0500 SaO2% (BldA) [Mass fraction] 98 % Tyrell Stiles Other [employer] Other 05-12-2023 07:30-0500 Systolic blood pressure 122 mm[Hg] Tyrell Linsey Other [employer] Other 02-24-2023 12:30-0400 Body height 158.75 cm Lisandro Raiings Other [employer] Other 02-24-2023 12:30-0400 Body mass index (BMI) [Ratio] 25.2 kg/m2 Lisandro Raiings Other [employer] Other 02-24-2023 12:30-0400 Body weight 63.5 kg Lisandro Kuns Other [employer] Other 02-24-2023 12:30-0400 Diastolic blood pressure 85 mm[Hg] Lisandro Kuns Other [employer] Other 02-24-2023 12:30-0400 Respiratory rate 16 /min Lisandro Kuns Other [employer] Other 02-24-2023 12:30-0400 SaO2% (BldA) [Mass fraction] 99 % Lisandro Raiings Other [employer] Other 02-24-2023 12:30-0400 Systolic blood pressure 140 mm[Hg] Lisandro Kuns Other [employer] Other Encounters Encounter Date Encounter Type Care Provider Facility Start: 01-29-2025 End: 01-29-2025 Bamboo flowsheet Rocio Blake DO Work Phone: [facility] Start: 01-29-2025 End: 01-29-2025 Bamboo flowsheet Rocio Blake DO Work Phone: [facility] Start: 01-29-2025 End: 01-29-2025 flow sheet Rocio Blake DO Work Phone: [facility] Comment on above: Third trimester preg lindsey ([facility]); 36 weeks gestation of ([facility]) Start: 01-29-2025 End: 01-29-2025 ambulatory ROCIO BLAKE Not Available Start: 01-25-2025 End: 01-25-2025 Clinisync Result Encounter Rocio Blake DO Work Phone: [facility]solic[facility] Start: 01-25-2025 End: 01-25-2025 Clinisync Result Encounter Rocio Blake DO Work Phone: [facility] Start: 01-18-2025 End: 01-18-2025 Clinisync Result Encounter Rocio Blake DO Work Phone: [facility]solic[facility] Start: 01-18-2025 End: 01-18-2025 Clinisync Result Encounter Rocio Blake DO Work Phone: [facility]olic[facility] Start: 01-15-2025 End: 01-15-2025 Bamboo flowsheet Rosaura Li INFORMATION ASSURANCE ENGINEER Work Phone: [facility] Start: 01-15-2025 End: 01-15-2025 Bamboo flowsheet Rosaura Li INFORMATION ASSURANCE ENGINEER Work Phone: [facility] Start: 01-15-2025 End: 01-15-2025 flow sheet Rosaura Li INFORMATION ASSURANCE ENGINEER Work Phone: [facility] Comment on above: Third trimester preg lindsey ([facility]); 34 weeks gestation of ([facility]) Start: 01-15-2025 End: 01-15-2025 ambulatory ROSAURA LI Not Available Start: 01-08-2025 End: 01-08-2025 [...] flowsheet Rocio Blake DO Work Phone: [facility] Start: 01-02-2025 End: 01-02-2025 Bamboo flowsheet Rocio Blake DO Work Phone: [facility] Start: 01-02-2025 End: 01-02-2025 flow sheet Rocio Blake DO Work Phone: [facility] Comment on above: Third trimester preg lindsey ([facility]); 32 weeks gestation of ([facility]); ZULMA (amniotic fluid index) borderline low Start: 01-02-2025 End: 01-02-2025 ambulatory ROCIO BLAKE Not Available Start: 12-19-2024 End: 12-19-2024 flow sheet Nadine DE JESUS Work Phone: [facility] Comment on above: 30 weeks gestation o f ([facility]); Third trimester ([facility]); HSV infection Start: 12-19-2024 End: 12-19-2024 ambulatory NADINE GALVAN Not Available Start: 12-05-2024 End: 12-05-2024 Bamboo flowsheet Rocio Blake DO Work Phone: [facility] Start: 12-05-2024 End: 12-05-2024 Bamboo flowsheet Rocio Blake DO Work Phone: [facility] Start: 12-05-2024 End: 12-05-2024 flow sheet Rocio Blake DO Work Phone: [facility] Comment on above: Third trimester preg lindsey ([facility]); 28 weeks gestation of ([facility]); HSV infection; size inconsistent with dates ([facility]) Start: 12-05-2024 End: 12-05-2024 ambulatory ROCIO [...] on above: 26 weeks gestation o f ([facility]); Second trimester ([facility]); Elevated glucose tolerance test Start: 11-22-2024 End: 11-22-2024 ambulatory NADINE GALVAN Not Available Start: 10-26-2024 End: 10-26-2024 ambulatory ROCIO BLAKE Not Available Start: 10-26-2024 End: 10-26-2024 flow sheet Rocio Blake DO Work Phone: [facility] Comment on above: Second trimester pre gnancy ([facility]); 22 weeks gestation of ([facility]); Diabetes mellitus screening Start: 10-26-2024 [...] minutes Attila Bundy MD Work Phone: [facility] Comment on above: Hormone imbalance (P rimary Dx); Amenorrhea; Missed menses; Family planning; Thyroid disorder screen Start: 05-16-2024 End: 05-16-2024 ambulatory ATTILA BUNDY Not Available Start: 03-30-2024 End: 03-30-2024 ambulatory Zita Alanis Facility:[facility] Start: 02-08-2024 End: 02-08-2024 Patient encounter status Attila Bundy MD Work Phone: [facility] Start: 02-08-2024 End: 02-08-2024 Periodic preventive med est patient 18-39 yrs Attila Bundy MD Work Phone: [facility] Comment on above: Amenorrhea (Primary Dx); Screening for malignant neoplasm of cervix; Encounter for gynecological examination without abnormal finding; Encounter for surveillance of vaginal ring hormonal contraceptive device; Missed menses Start: 02-08-2024 End: 02-08-2024 ambulatory ATTILA BUNDY Not Available Start: 01-24-2024 End: 01-24-2024 ambulatory Facility:[facility] Start: 05-12-2023 End: 05-12-2023 ambulatory Tyrell Stiles Other [employer] Other Start: 05-12-2023 Office outpatient vi sit 15 minutes yTrell Stiles [facility] [place] Start: 03-02-2023 End: 03-02-2023 ambulatory Lisandroteri Martínezs Facility:[facility] Start: 03-02-2023 End: 03-02-2023 ambulatory DO Lisandro Kuns Work Phone: [facility] Work Phone: Start: 03-02-2023 End: 03-02-2023 Patient encounter procedure DO Lisandro Kuns Work Phone: [facility] Start: 02-24-2023 End: 02-24-2023 ambulatory Lisandro Mauricios Other [employer] Other Start: 02-24-2023 Encounter for genera l adult medical examination without abnormal findings Lisandro Buitrago [facility] Start: 02-24-2023 Office outpatient ne w 30 minutes Lisandro Buitrago [facility] Start: 07-28-2021 End: 07-28-[address] JANES GARCIA Facility:[facility] Procedures Date Procedure Procedure Detail Performing Clinician Start: 01-29-2025 Urnls dip stick/tabl et rgnt non-auto w/o micrscp Rocio Blake DO Work Phone: Start: 01-25-2025 US OB BPP W NON-STRESS Rocio Blake DO Work Phone: Start: 01-18-2025 US OB BPP W NON-STRESS Rocio Blake DO Work Phone: Start: 01-15-2025 Urnls dip stick/tabl et rgnt non-auto w/o micrscp Rosaura Li NP Work Phone: Start: 01-08-2025 US [...] 03-02-2023 Plain chest X-ray DO [employer] Work Phone: Start: 03-02-2023 Plain X-ray of left shoulder DO Lisandro [employer] Work Phone: Plan of Treatment Date Care Activity Detail Author Start: 02-08-2025 End: 02-08-2025 Patient encounter procedure 02/08/2025 8:40 AM EDT Routine JORDY MONTANO [address] [address] Rosaura Li, INFORMATION ASSURANCE ENGINEER [address] [place] [address] JORDY MONTANO Start: 01-29-2025 End: 01-29-2026 CULTURE, GROUP B STREP WITH SUSCEPTIBLITY CULTURE, GROUP B STREP WITH SUSCEPTIBLITY Lab Routine Third trimester ([facility]) Expected: 01/29/2025, Expires: 01/29/2026 [facility] Work Phone: Comment on above: Expected: 01/29/2025 , Expires: 01/29/2026 Start: 01-29-2025 End: 01-29-2025 Patient encounter procedure [facility] Comment on above: Third trimester preg lindsey ([facility]) Start: 01-16-2025 End: 01-16-2025 Patient encounter procedure 01/16/2025 8:50 AM EDT Routine [facility] [address] [place] [id number] Nadine Galvan PA [address] [place] [address] [facility] Start: 01-15-2025 End: 01-15-2025 Patient encounter procedure [facility] Comment on above: Arrived Start: 01-08-2025 Influenza vaccination [facility] Start: 01-02-2025 End: 07-05-2025 US biophysical profile w non stress test US biophysical profile w non stress test Imaging Routine ZULMA (amniotic fluid index) borderline low Expected: 01/02/2025 (Approximate), Expires: 07/05/2025 [facility] Work Phone: Comment on above: Expected: 01/02/2025 (Approximate), Expires: 07/05/2025 Start: 01-02-2025 End: 01-02-2025 Patient encounter procedure [facility] Comment on above: Arrived Start: 12-19-2024 End: 12-19-2024 Patient encounter procedure 12/19/2024 8:50 AM EDT Routine [facility] [address] [place] [phone] Nadine Galvan, PA [address] [place], [place] [id number] [facility] Start: 12-19-2024 End: 12-19-2024 Professional / ancillary services management 12/19/2024 8:00 AM EDT Ancillary Procedure [facility] [address] [place] [phone] [facility] Start: 12-05-2024 End: 04-07-2025 US for US OB follow up transabdominal approach Imaging Routine size inconsistent with dates ([facility]) Expected: 12/05/2024, Expires: 04/07/2025 [facility] [...] AM EDT Routine [facility] [address] [place] [phone] Nadine Galvan PA [address] [place] [address] [facility] Start: 10-26-2024 End: 10-26-2025 [...] procedure 09/27/2024 3:30 PM EDT Routine [facility] [address] [place] [address] Nadine Galvan PA [address] [place] [address] [facility] Start: 08-29-2024 End: 08-29-2024 Patient encounter procedure [facility] Comment on above: Arrived Start: 07-27-2024 End: 07-27-2024 ambulatory 07/27/2024 10:30 AM EDT Initial [facility] [address] [place] [phone] Attila Bundy MD [address] [place] [address] [facility] Start: 07-17-2024 End: 07-17-2024 Patient encounter procedure 07/17/2024 12:30 PM EDT Office Visit [facility] [address] [place] [phone] Attila Bundy MD [address] [place] [address] [facility] Start: 07-17-2024 End: 07-17-2024 Professional / ancillary services management 07/17/2024 8:30 AM EDT Ancillary Procedure [facility] [address] [place] [phone] [facility] Start: 07-11-2024 End: 07-11-2025 [...] carrier status Expected: 07/11/2024 (Approximate), Expires: 07/11/2025 [facility] Comment on above: Expected: 07/11/2024 (Approximate), Expires: 07/11/2025 Start: 07-11-2024 End: 07-11-2025 Blood type and Indirect antibody screen panel - Blood Type and screen Lab Routine Encounter for supervision of normal first in first trimester Expected: 07/11/2024, Expires: 07/11/2025 [facility] Comment on above: Expected: 07/11/2024 , Expires: 07/11/2025 Start: 07-11-2024 End: 07-11-2025 CBC W Auto Differential panel - Blood CBC and differential Lab Routine Encounter for supervision of normal first in first trimester Expected: 07/11/2024, Expires: 07/11/2025 [facility] Comment on above: Expected: 07/11/2024 , Expires: 07/11/2025 Start: 07-11-2024 End: 07-11-2025 DRUG SCREEN 17 W/CONF, UR DRUG SCREEN 17 W/CONF, UR Lab Routine Encounter for drug screening Expected: 07/11/2024, Expires: 07/11/2025 [facility] Comment on above: Expected: 07/11/2024 [...] in first trimester Expected: 07/11/2024, Expires: 07/11/2025 [facility] Comment on above: Expected: 07/11/2024 , Expires: 07/11/2025 Start: 07-11-2024 End: 07-11-2025 [id number] PLUS Core+SCA [id number] PLUS Core+SCA Lab Routine Encounter for screening for chromosomal anomalies Expected: 07/11/2024 (Approximate), Expires: 07/11/2025 [facility] Comment on above: Expected: 07/11/2024 (Approximate), Expires: 07/11/2025 Start: 07-11-2024 End: 07-11-2025 Reagin Ab [Presence] in Serum by RPR RPR Lab Routine Encounter for supervision of normal first in first trimester Expected: 07/11/2024, Expires: 07/11/2025 [facility] Comment on above: Expected: 07/11/2024 , Expires: 07/11/2025 Start: 07-11-2024 End: 07-11-2025 Rubella antibody, IgG Rubella antibody, IgG Lab Routine Encounter for supervision of normal first in first trimester Expected: 07/11/2024, Expires: 07/11/2025 [facility] Comment on above: Expected: 07/11/2024 , Expires: 07/11/2025 Start: 07-11-2024 End: 07-11-2025 Urinalysis complete panel - Urine Urinalysis with microscopic Lab Routine Encounter for supervision of normal first in first trimester Expected: 07/11/2024, Expires: 07/11/2025 [facility] Work Phone: Comment on above: Expected: 07/11/2024 , Expires: 07/11/2025 Start: 05-16-2024 End: 05-16-2025 Cortisol Cortisol Lab Routine Hormone imbalance Expected: 05/16/2024, Expires: 05/16/2025 [facility] Comment on above: Expected: 05/16/2024 , Expires: 05/16/2025 Start: 05-16-2024 End: 05-16-2025 DHEA-sulfate DHEA-sulfate Lab Routine Hormone imbalance Expected: 05/16/2024, Expires: 05/16/2025 [facility] Comment on above: Expected: 05/16/2024 , Expires: 05/16/2025 Start: 05-16-2024 End: 05-16-2025 Estradiol Estradiol Lab Routine Hormone imbalance Expected: 05/16/2024, Expires: 05/16/2025 [facility] Comment on above: Expected: 05/16/2024 , Expires: 05/16/2025 Start: 05-16-2024 End: 05-16-2025 Estrone Estrone Lab Routine Hormone imbalance Expected: 05/16/2024, Expires: 05/16/2025 [facility] Comment on above: Expected: 05/16/2024 , Expires: 05/16/2025 Start: 05-16-2024 End: 05-16-2025 Follicle stimulating hormone Follicle stimulating hormone Lab Routine Hormone imbalance Thyroid disorder screen Expected: 05/16/2024, Expires: 05/16/2025 [facility] Comment on above: Expected: 05/16/2024 , Expires: 05/16/2025 Start: 05-16-2024 End: 05-16-2025 Insulin, fasting Insulin, fasting Lab Routine Amenorrhea Missed menses Hormone imbalance Expected: 05/16/2024, Expires: 05/16/2025 [facility] Comment on above: Expected: 05/16/2024 , Expires: 05/16/2025 Start: 05-16-2024 End: 05-16-2025 Luteinizing hormone Luteinizing hormone Lab Routine Hormone imbalance Thyroid disorder screen Expected: 05/16/2024, Expires: 05/16/2025 [facility] Comment on above: Expected: 05/16/2024 , Expires: 05/16/2025 Start: 05-16-2024 End: 05-16-2025 Progesterone Progesterone Lab Routine Hormone imbalance Expected: 05/16/2024, Expires: 05/16/2025 [facility] Comment on above: Expected: 05/16/2024 , Expires: 05/16/2025 Start: 05-16-2024 End: 05-16-2025 Sex hormone binding globulin Sex hormone binding globulin Lab Routine Hormone imbalance Expected: 05/16/2024, Expires: 05/16/2025 [facility] Comment on above: Expected: 05/16/2024 , Expires: 05/16/2025 Start: 05-16-2024 End: 05-16-2025 Testosterone, free, total Testosterone, free, total Lab Routine Hormone imbalance Expected: 05/16/2024, Expires: 05/16/2025 [facility] Comment on above: Expected: 05/16/2024 , Expires: 05/16/2025 Start: 05-16-2024 End: 05-16-2025 Thyrotropin [Units/volume] in Serum or Plasma TSH Lab Routine Hormone imbalance Thyroid disorder screen Expected: 05/16/2024, Expires: 05/16/2025 [facility] Work Phone: Comment on above: Expected: 05/16/2024 , Expires: 05/16/2025 Start: 05-16-2024 End: 05-16-2025 Vitamin D 1,25 dihydroxy Vitamin D 1,25 dihydroxy Lab Routine Hormone imbalance Expected: 05/16/2024, Expires: 05/16/2025 [facility] Comment on above: Expected: 05/16/2024 , Expires: 05/16/2025 Start: 05-16-2024 End: 05-16-2024 Patient encounter procedure 05/16/2024 12:30 PM EST Office Visit [facility] [address] [place] [address] Attila Bundy MD [address] [place] [address] [facility] Start: 02-08-2024 End: 02-07-2025 Follicle stimulating hormone Follicle stimulating hormone Lab Routine Amenorrhea Expected: 02/08/2024 (Approximate), Expires: 02/07/2025 [facility] Comment on above: Expected: 02/08/2024 (Approximate), Expires: 02/07/2025 Start: 01-09-2024 Influenza vaccination Influenza Vacc ine (#1) [facility] hCG, qualitative hCG, qualitativ e Lab Routine Amenorrhea Ordered: 02/08/2024 [facility] Comment on above: Ordered: 02/08/2024 Hemoglobin A1c/Hemoglobin.total in Blood Hemoglobin A1c Lab Routine with uncertain dates, antepartum Ordered: 08/10/2024 [facility] Work Phone: Comment on above: Ordered: 08/10/2024 Luteinizing hormone Luteinizing hormone Lab Routine Amenorrhea Ordered: 02/08/2024 [facility] Comment on above: Ordered: 02/08/2024 Progesterone Progesterone Lab Routine Amenorrhea Ordered: 02/08/2024 [facility] Comment on above: Ordered: 02/08/2024 SENDOUT TEST MISCELLANEOUS [facility] SENDOUT TEST MISCELLANEOUS [facility] Lab Routine Screening for malignant neoplasm of cervix Encounter for gynecological examination without abnormal finding Ordered: 02/08/2024 [facility] Work Phone: Comment on above: Ordered: 02/08/2024 Testosterone, free, total Testosterone, free, total Lab Routine Amenorrhea Ordered: 02/08/2024 [facility] Comment on above: Ordered: 02/08/2024 Immunizations Immunization Date Immunization Notes Care Provider [facility] 09-25-2020 COVID-19 Vaccine Moderna - Documentation Purposes Only Lisandro Buitrago Other [facility] Other 08-21-2020 COVID-19 Vaccine Moderna - Documentation Purposes Only Lisandro Buitrago Other [facility] Other Payers Date Payer Category Payer Unknown [id number] 2023 Private Health Insurance [id number] 2023 Private Health Insurance [id number] 2023 Unknown [id number] 2. [id number] 1995 Unknown [id number] 2.16.84 0.1.245245.3.579.2.593 1995 Unknown [id number] 2.16.8 40.1.321543.3.579.2.718 1995 Unknown [id number] 2.16.8 40.1.119701.3.579.2.1259 1995 Unknown [id number] 2.16.8 40.1.713743.3.579.2.1259 1995 Unknown [id number] 2.16.8 40.1.734566.3.579.2.1259 1995 Unknown [id number] 2.16.8 40.1.660609.3.579.2.1258 1995 Unknown [id number] 2.16.8 40.1.342009.3.579.2.1259 1995 Unknown [id number] 2.16.8 40.1.030052.3.579.2.1259 1995 Unknown [id number] 2.16.8 40.1.941581.3.579.2.1258 1995 Unknown [id number] 2.16.8 40.1.733639.3.579.2.1258 1995 Unknown [id number] 2.16.8 40.1.018579.3.579.2.1259 1995 Unknown [id number] 2.16.84 0.1.485160.3.579.2.1259 1995 Unknown [id number] 2.16.84 0.1.811720.3.579.2.1259 1995 Unknown [id number] 2.16.84 0.1.005825.3.579.2.1258 1995 Unknown [id number] 2.16.84 0.1.686599.3.579.2.1259 1995 Unknown [id number] 2.16.84 0.1.513620.3.579.2.9 1995 Unknown [id number] 2.16.84 0.1.673718.3.579.2.1259 1995 Unknown [id number] 2.16.84 0.1.979022.3.579.2.1259 1959 Self-pay Unknown [id number] Unknown [id number] 2.16.8 [id number] Social History Date Type Detail Facility Start: 02-08-2024 End: 05-16-2024 Sex Assigned At [facility] Other Start: 1995 Sex Assigned At Female F [facility] Start: 05-15-2023 Tobacco smoking stat [facility] Never smoked tobacco [facility] Start: 05-15-2023 [...] health goal Clinical Notes 02-24-2023 to 01-29-2025 Rosaura Li NP - 01/29/2025 8:30 AM Justine [...] nursing note reviewed. Exam conducted with a tie man present. Vitals: Estimated body mass index is 29.98 kg/m as calculated from the following: Height as of 08/10/24: 5' 3 . Weight as of this encounter: 169 lb 4 oz. BP: 128/86 Patient's last menstrual period was 05/09/2024 (exact date). ASSESSMENT & PLAN ICD-10-CM 1. Third trimester ([facility]) Z34.93 POCT urinalysis dipstick manually resulted CULTURE, GROUP B STREP WITH SUSCEPTIBLITY CULTURE, GROUP B STREP WITH SUSCEPTIBLITY 2. 36 weeks gestation of ([facility]) Z3A.36 Return OB: Patient presents today [...] by Rosaura Li NP on behalf of: Rocio Lozano DO documented in this encounter [facility] 01-15-2025 History of Presen t illness Narrative [...] nursing note reviewed. Exam conducted with a tie man present. Vitals: Estimated body mass index is 29.85 kg/m as calculated from the following: Height as of 08/10/24: 5' 3 . Weight as of this encounter: 168 lb 8 oz. BP: 132/72 Patient's last menstrual period was 05/09/2024 (exact date). ASSESSMENT & PLAN ICD-10-CM 1. Third trimester ([facility]) Z34.93 POCT urinalysis dipstick manually resulted 2. 34 weeks gestation of ([facility]) Z3A.34 Patient presents today for [...] Rosaura Li NP documented in this encounter [facility] 01-02-2025 History of Presen t illness Narrative [...] nursing note reviewed. Exam conducted with a tie man present. Vitals: Estimated body mass index is 28.96 kg/m as calculated from the following: Height as of 25: 5' 3 . Weight as of this encounter: 163 lb 8 oz. BP: 120/76 Patient's last menstrual period was 05/09/2024 (exact date). ASSESSMENT & PLAN ICD-10-CM 1. Third trimester ([facility]) Z34.93 POCT urinalysis dipstick manually resulted 2. 32 weeks gestation of ([facility]) Z3A.32 Return OB: Patient presents today [...] Rocio Lozano DO documented in this encounter [facility] 12-19-2024 History of Presen t illness [...] PLAN ICD-10-CM 1. 30 weeks gestation of ([facility]) Z3A.30 POCT urinalysis dipstick manually resulted 2. Third trimester ([facility]) Z34.93 POCT urinalysis dipstick manually resulted [...] for routine OB appointment. Documented by LIZA Zladivar on behalf of: LIZA Zaldivar documented in this encounter [facility] 12-05-2024 History of Presen t illness [...] Kwan Swiney Thyroid disease Maternal Grandfather Kwan Welchy Breast [...] nursing note reviewed. Exam conducted with a tie man present. Vitals: Estimated body mass index is 28.52 kg/m as calculated from the following: Height as of 08/10/24: 5' 3 . Weight as of this encounter: 161 lb. BP: 120/76 Patient's last menstrual period was 05/09/2024 (exact date). ASSESSMENT & PLAN ICD-10-CM 1. Third trimester ([facility]) Z34.93 CANCELED: POCT urinalysis dipstick manually resulted 2. 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 size inconsistent with dates ([facility]) O26.849 US OB follow up transabdominal [...] Rocio Lozano DO documented in this encounter [facility] 11-22-2024 History of Presen t illness [...] PLAN ICD-10-CM 1. 26 weeks gestation of ([facility]) Z3A.26 POCT urinalysis dipstick manually resulted 2. Second trimester ([facility]) Z34.92 POCT urinalysis dipstick manually [...] of: LIZA Zaldivar documented in this encounter [facility] 10-26-2024 History of Presen t illness [...] ASSESSMENT & PLAN ICD-10-CM 1. Second trimester ([facility]) Z34.92 POCT urinalysis dipstick manually resulted 2. 22 weeks gestation of ([facility]) Z3A.22 3. Diabetes mellitus screening Z13.1 [...] Rocio Lozano DO documented in this encounter [facility] 08-29-2024 History of Presen t illness [...] nursing note reviewed. Exam conducted with a tie man present. Vitals: Estimated body mass index is [...] or undercooked meat, and stay away from [facility]. Patient has been consulted regarding any further do's and don'ts of . Patient voiced understanding and all questions and concerns were answered. Orders Placed This Encounter Procedures POCT urinalysis dipstick manually resulted Follow Up: Patient is to return in 4 weeks for routine OB appointment. Documented by Zita Borrego LPN on behalf of: Rocio Lozano DO documented in this encounter [facility] 08-10-2024 History of Presen t illness [...] or undercooked meat, and stay away from [facility]. Patient has also been advised to not change litter boxes and eat 6 small meals a day. Patient has been consulted regarding the do's and don'ts of . Patient was given labs and all questions and concerns were answered. Patient was given [place] labs to be completed with Hgb A1C. Follow Up: Patient is to return in 4 weeks for routine OB appointment. Follow Up: Patient is to have labs drawn at directed and return to office for initial OB appointment with provider. Patient may call office as needed with any concerns or questions. Nurse Visit Completed by: Domenica Jacinto LPN documented in this encounter [facility] 07-11-2024 History of Presen t illness [...] 07/11/2024 10:03 AM documented in this encounter [facility] 05-16-2024 History of Presen t illness Narrative Images from the original note were not included. Attila Bundy MD Obstetrics and Gynecology Patient: Alondra Beaver : 1995 (28 y.o.) Exam Date: 05/16/2024 Reason for Visit - Chief Complaint Patient presents with Follow-up Follow up for Amenorrhea, missed menses, and family planning. Stopped EluRyng in 10/2023. DRAIN TILER 04/03 LMP 05/09 Ovulatory 04/30 Patient did [...] Behavior: Behavior normal. Exam conducted with a tie man present. Assessment/Plan ICD-10-CM 1. Amenorrhea N91.2 2. [...] in the process. documented in this encounter [facility] 05-16-2024 Instructions Attila Bundy MD - [...] routine infertility test. documented in this encounter [facility] 02-08-2024 History of Presen t illness [...] Return 1 year documented in this encounter [facility] 05-12-2023 Evaluation note Encounter Date Diagnosis [...] and trigger point injections can be done. [facility] Other 10-18-2023 Evaluation note* Encounter Date Diagnosis Assessment Notes Treatment Notes Treatment Clinical Notes Feb, Encounter to establish care (ICD-10 - Z76.89) Patient appears to be in good health upon examination. She is here to establish care for annual physcial for her employment. 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 Feb, Wellness examination (ICD-10 - Z00.00) [...] Stress test ordered to rule out abnormalities. [facility] Other Evaluation noteNo assessment information available [facility] Work Phone: Evaluation note* Diagnosis Amenorrhea- [...] Date Medical History Left elbow dislocation 2011 [facility] Other Summary Purpose Family History No Family [...] DATE CREATED AUTHOR AUTHOR'S ORGANIZ ATION 05/24/2023 [facility] DATE CREATED AUTHOR AUTHOR'S ORGANIZ ATION 02/20/2024 [facility] DATE CREATED AUTHOR AUTHOR'S ORGANIZ ATION 01/27/2025 [facility] DATE CREATED AUTHOR AUTHOR'S ORGANIZ ATION 01/29/2025 [facility] d[facility] Specialists EPIC REASON FOR VISIT (unrecogniz ed section and content) Reason Comments Gynecologic Exam Reason Comments Follow-up Reason Comments Initial Visit Nurse Visit Reason Comments Amenorrhea Reason Comments Routine Visit Care Teams (unrecognized sec tion and content) Team Status: Inactive Member Role Status Dates Lisandro Buitrago DO Attending Provider Active Ramp Flight Attendant Relationship Specialty Start Date End Date Unallocated, Jordy Horn MD [address] [place] [address] [place] [address] PCP - General Family Medicine 06/23/23 Ramp Flight Attendant Relationship Specialty Start Date End Date Unallocated, Jordy Horn MD [address] [place], [place] [address] [address] PCP - General Family Medicine 06/23/23 Ramp Flight Attendant Relationship Specialty Start Date End Date Unallocated, Jordy Horn MD [address] [place] [address] [place] [address] PCP - General Family Medicine 06/23/23 Ramp Flight Attendant Relationship Specialty Start Date End Date Unallocated, Jordy Horn MD [facility] [address] [place] [address] PCP - General Family Medicine 06/23/23 Ramp Flight Attendant Relationship Specialty Start Date End Date Unallocated, Jordy Horn MD [facility] [place] [address] PCP - General Family Medicine 06/23/23 Ramp Flight Attendant Relationship Specialty Start Date End Date Unallocated, Jordy Horn MD [address] [place] [address] PCP - General Family Medicine 06/23/23 Ramp Flight Attendant Relationship Specialty Start Date End Date Unallocated, [place] [address] PCP - General Family Medicine 06/23/23 Ramp Flight Attendant Relationship Specialty Start Date End Date Unallocated, [place] [address] PCP - General Family Medicine 06/23/23 Ramp Flight Attendant Relationship Specialty Start Date End Date Unallocated, [place] [address] PCP - General Family Medicine 06/23/23 Ramp Flight Attendant Relationship Specialty Start Date End Date Unallocated, Jordy Horn MD [facility] [place] [address] PCP - General Family Medicine 06/23/23 Ramp Flight Attendant Relationship Specialty Start Date End Date Unallocated, [place] [address] PCP - General Family Medicine 06/23/23 Goals [...] BE BASED ON THE PRIMARY CLINICAL RECORDS. [facility] [employer] [facility]. provides no warranty or guarantee of the accuracy or completeness of information in this document.
--- OUTSIDE RECORDS SUMMARY | 2025-02-01 07:00 | XMS_ITS | Encounter Summary ---
Author Organization [facility] Address [address] [place] [address] Care Team Providers Care Cereal Maker Name Role Phone Unallocated, Noms Provider Primary Care [facility] Encounter Details Date Type Department Care Team (Late st Contact Info) Description 11/22/2024 Results Follow-Up TORREY MILLSGYDayne [email or web address] [address] Dea Olivares LPN [address] [place] [address] ALL CBC WITH AUTO DIFF, [...] Description 02/08/2025 8:40 AM EDT Routine [facility] [address] [place] [address] Rosaura Li, GROUNDMAN/LINEMAN [address] [facility] [place] [address] documented as of this encounter Goals Goal Patient Goal Type Associated Problems Recent Progress Patient-Stated? Author Reminders Care Plan OB Reminders Jennifer Bond RN documented as of this encounter Visit Diagnoses Not on filedocumented in this encounter Additional Health Concerns Active Problems Noted Date Diagnosed Date OB Reminders 07/11/2024 documented as of this encounter Care Teams Cereal Maker Relationship Specialty Start Date End Date Unallocated, [place] [address] PCP - General Family Medicine 06/23/23 documented as of this encounter
--- OUTSIDE RECORDS SUMMARY | 2025-02-01 07:00 | XMS_ITS | Encounter Summary ---
Author Organization [facility] Address [address] [place] [address] Care Team Providers Care Net Manager Name Role Phone Unallocated, Noms Provider Primary Care [facility] Encounter Details Date Type Department Care Team (Late st Contact Info) Description 09/12/2024 Abstract [facility] [place] [facility] [address] [facility] [place] [address] José Loznao DO [address] [facility] [facility] [place] [address] Social History Tobacco Use Types Packs/Day Years [...] AM EDT Routine [facility] [address] [facility] [place] [address] Rosaura Li, ELECTRONICS SCALE TESTER [address] [place] [address] documented as of this encounter Goals Goal Patient Goal Type Associated Problems Recent Progress Patient-Stated? Author Reminders Care Plan OB Reminders No Jennifer Ayala RN documented as of this encounter Visit Diagnoses Not on filedocumented in this encounter Additional Health Concerns Active Problems Noted Date Diagnosed Date OB Reminders 07/11/2024 documented as of this encounter Care Teams Net Manager Relationship Specialty Start Date End Date Unallocated, Noms Justina, [address] [place] [address] PCP - General Family Medicine 06/23/23 documented as of this encounter
--- OUTSIDE RECORDS SUMMARY | 2025-02-01 07:00 | XMS_ITS | Encounter Summary ---
Author Organization [facility] Address [address] [place] [address] Care Team Providers Care Vp Software Name Role Phone Unallocated, Noms Provider [facility] Encounter Details Date Type Department Care Team (Late st Contact Info) Description 01/29/2025 Bamboo flowsheet [facility] [place] O[facility] [address] [place] [address] José Lozano DO [address] [place], [facility] Social History Tobacco Use Types Packs/Day Years [...] Info) Description 02/08/2025 8:40 AM EDT Routine NOMRitchie [place] OBGYN [address] [place] [address] Rosaura Li, USER SUPPORT ANALYST SUPERVISOR [address] [place] [address] documented as of this encounter Goals Goal Patient Goal Type Associated Problems Recent Progress Patient-Stated? Author Reminders Care Plan OB Reminders Jennifer Bond RN documented as of this encounter Visit Diagnoses Not on filedocumented in this encounter Additional Health Concerns Active Problems Noted Date Diagnosed Date OB Reminders 07/11/2024 documented as of this encounter Care Teams Vp Software Relationship Specialty Start Date End Date Unallocated, Noms MD Justina [address] [facility] [place] [address] PCP - General Family Medicine 06/23/23 documented as of this encounter
--- OUTSIDE RECORDS SUMMARY | 2025-02-01 07:00 | XMS_ITS | Clinical Summary ---
Author Organization [facility] Address [address] [place] [address] Care Team Providers Care Finished Stock Inspector Name Role Phone Unallocated, Noms Provider Primary Care Provi ulysses Allergies No known active allergies Medications Vit-Fe Fumarate-FA ( PO) Take by mouth Active Encounters Date Type Department Care Team Description 01/29/2025 8:30 [place] [address] Rocio Lozano, Third trimester ([facility]); 36 weeks gestation of ([facility]) 01/29/2025 [place] [address] Rocio Lozano, 01/25/2025 Clinisync Result Encounter NOMS External Department Unsolicited Rocio Lozano, 01/18/2025 Clinisync Result Encounter NOMS External Department Unsolicited Rocio Lozano, DO 01/15/2025 8:50 [place] [address] Rosaura Li NP Third trimester ([facility]); 34 weeks gestation of ([facility]) 01/15/2025 [place] [address] Rosaura Li NP 01/08/2025 Clinisync Result Encounter NOMS External Department Unsolicited Rocio Lozano, DO 01/04/2025 Clinisync Result Encounter NOMS External Department Unsolicited Rocio Lozano, DO 01/02/2025 8:30 AM EDT Routine [facility] [address] [place] [address] [place] [address] Rocio Lozano, DO Third trimester ([facility]); 32 weeks gestation of ([facility]); ZULMA (amniotic fluid index) borderline low 01/02/2025 Bamboo flowsheet [facility] [place] [address] [place] [address] [place] [address] Rocio Lozano, DO 01/02/2025 Travel 12/19/2024 8:50 AM EDT Routine [facility] [place] [address] [place] [address] [place] [address] Nadine Gurrola PA 30 weeks gestation of ([facility]); Third trimester ([facility]); HSV infection 12/19/2024 8:00 AM EDT Ancillary Procedure [facility] [place] [address] [place] [address] [place] [address] size inconsistent with dates ([facility]) 12/19/2024 Telephone [facility] [address] [facility] [place] [address] Dea Olivares LPN 12/05/2024 9:00 AM EDT Routine [facility] MILL[place]ne [place] [address] Rocio Lozano, Third trimester ([facility]); 28 weeks gestation of ([facility]); HSV infection; size inconsistent with dates ([facility]) 12/05/2024 Bamboo flowsheet [facility] [place] [address] [place] [address] [place] [address] Rocio Lozano, 12/04/2024 Travel 11/28/2024 Clinisync Result Encounter NOMS External Department Unsolicited Nadine Gurrola PA 11/22/2024 8:50 AM EDT Routine [facility]ries [facility] [address] Nadine Gurrola PA 26 weeks gestation of ([facility]); Second trimester ([facility]); Elevated glucose tolerance test 11/22/2024 Results Follow-Up TORREY Humphries [facility] [address] Dea Olivares LPN ALL CBC WITH AUTO DIFF, GLUCOSE 1 HOUR 11/22/2024 Clinisync Result Encounter NOMS External Department Unsolicited Rocio Lozano, 11/17/2024 Travel from Last 3 Months Family History [...] Pressure 128/86 01/29/2025 8:37 AM EDT Pulse 77 06/23/2023 9:25 AM EST Temperature 36.4 C (97.5 F) 06/23/2023 9:25 AM EST Respiratory Rate 18 05/15/2023 11:28 AM EST Oxygen Saturation 99% 06/23/2023 9:25 AM EST Inhaled Oxygen Concentration - - Weight 76.8 kg (169 lb 4 oz) 01/29/2025 8:37 AM EDT Height 160 cm (5' 3 ) 08/10/2024 2:55 PM EDT Body Mass Index 29.98 08/10/2024 2:55 PM EDT Plan of Treatment Upcoming Encounters Date Type Department Care Team (Late st Contact Info) Description 02/08/2025 8:40 AM EDT Routine [facility] [address] [facility] [place] [address] Rosaura Li, REFINERY OPERATOR LIGHT [employer]DS RECOVERY [address] [facility] [address] [place] [address] Health Maintenance Due Date Last Done Comments Influenza Vaccine (#1) 2025 Goals Goal Patient Goal Type Associated Problems Recent Progress Patient-Stated? Author Reminders Care Plan OB Reminders No Jennifer Ayala, software applications architect Procedure Name Priority Date/Time Associated Diagnosis Comments POCT URINALYSIS DIPSTICK Routine 01/29/2025 8:42 AM EDT Third trimester ([facility]) US OB BPP W NON-STRESS 01/25/2025 8:50 AM EDT US OB BPP W NON-STRESS 01/18/2025 8:45 AM EDT POCT URINALYSIS DIPSTICK Routine 01/15/2025 9:01 AM EDT Third trimester ([facility]) US OB BPP W NON-STRESS 01/08/2025 12:44 PM EDT US OB BPP W NON-STRESS 01/04/2025 10:27 AM EDT POCT URINALYSIS DIPSTICK Routine 01/02/2025 8:29 AM EDT Third trimester ([facility]) POCT URINALYSIS DIPSTICK Routine 12/19/2024 9:06 AM EDT 30 weeks gestation of ([facility]) Third trimester ([facility]) US OB FOLLOW UP TRANSABDOMINAL APPROACH Routine 12/19/2024 8:25 AM EDT size inconsistent with dates ([facility]) GLUCOSE TOLERANCE 3 HOUR Routine 11/28/2024 6:41 AM EDT POCT URINALYSIS DIPSTICK Routine 11/22/2024 8:57 AM EDT 26 weeks gestation of ([facility]) Second trimester ([facility]) GLUCOSE 1 HOUR Routine 11/22/2024 7:47 AM EDT ALL CBC WITH AUTO DIFF Routine 7:47 AM EDT from Last 3 Months Results * (ABNORMAL) POCT urinalysis dipstick manually resulted (01/29/2025 8:42 AM EDT) Only the most recent of5 [...] - Positive Urine 01/29/2025 8:42 AM EDT us Rocio Lozano DO POINT OF CARE TEST ENTER/EDIT OR DERABLES Final Result * US OB BPP W NON-STRESS (01/25/2025 8:50 AM EDT) Only the most recent of4 resultswithin the time period is included. Anatomical Region Laterality Modality Other 01/25/2025 8:50 AM EDT Narrative 01/25/2025 8:[place] [address] Ultrasound Report Signed Patient: ALONDRA BEAVER MR#: [id number] : 1995 Acct:[id number] Age/Sex: 29 / F ADM Date: 01/25/25 Loc: US Attending Dr: Rocio Lozano D.O. Ordering Physician: Rocio Lozano D.O. Date of Service: 01/25/25 Procedure(s): US OB BPP w non-stress Accession Number(s): [id number] cc: Rocio Lozano D.O.; Zita Alanis M.D. [address] [address] Patient Name: ALONDRA BEAVER MRN: [id number] date: 1995 Sex: F Assigned Patient Location: [facility] Current Patient Location: Accession/Order Number: [id number] Exam Date: 01/25/2025 07:01 Report Date: 01/25/2025 [...] Lu M.D. 01/25/2025 8:50 AM Dictation Location: [place] [address] Electronically authenticated by: [id number] Y Date: 01/25/2025 08:50 Dictated By: Zita Lu M.D. Signed By: 01/25/25 0852 DD/ 0850 TD/TT: Grain Cleaner: Procedure Note Radiology, Radiologist, - 01/25/2025 [place] [address] Ultrasound Report Signed Patient: ALONDRA BEAVER [facility]#: [id number] : 1995Acct:[id number] Age/Sex: 29 / FADM Date: 01/25/25 Loc: US Attending Dr: Rocio Lozano D.O. Ordering Physician: Rocio Lozano D.O. Date of Service: 01/25/25 Procedure(s): US OB BPP w non-stress Accession Number(s): [id number] cc: Rocio Lozano D.O.; Zita Alanis M.D. [place] [id number] Patient Name: ALONDRA BEAVER MRN: [id number] date: 1995 Sex: F Assigned Patient Location: [facility] Current Patient Location: Accession/Order Number: [id number] Exam Date: 01/25/2025 07:01 Report Date: 01/25/2025 08:50 At the request of: ROCIO LOZANO DO Procedure: US OB BPP w non-stress BIOPHYSICAL PROFILE: CLINICAL INFORMATION: BORDERLINE LOW AMNIOTIC FLUID COMPARISON: 01/18/2025 There is a single live intrauterine gestation in cephalic presentation.The reported gestational age is 35 weeks 3 days. The heart ratemeasures 144 beats per minute. FINDINGS: TONE: 1 or more episodes of activity extension and flexion of extremity or opening and closing of the hand [Y] 2/2 GROSS BODY MOVEMENTS: 3 or more discrete body or limb movements [Y] 2/2 BREATHING MOVEMENTS: 1 or more episodes of breathing lastingat least 30 seconds [Y] 2/2 ZULMA: A single deepest vertical pocket of amniotic fluid greater than 2 cm [Y] 2/2 ZULMA: 13.05 cm. This is in low-normal range. Total score: 8/8 US/US OB BPP w non-stress IMPRESSION: NORMAL BIOPHYSICAL PROFILE Impression dictated by: Zita Lu M.D. 01/25/2025 8:50 AM Dictation Location: [place] [address] Electronically authenticated by: [id number] Y Date: 508:50 Dictated By: Zita Lu M.D. Signed By:01/25/25 0852 DD/ 0850 TD/TT: Grain Cleaner: us Rocio Lozano DO [facility] Final Result * US [...] menstrual period. TRANSCRIBED BY: ELECTRONICALLY SIGNED BY: MD Tom Jaime 12/19/2024 1:52 PM EDT FINDINGS: Comparison made [...] LAB BLOOD ORDERABLES Final Resul t [facility] * (ABNORMAL) GLUCOSE 1 HOUR (11/22/2024 7:47 AM EDT) GLUCOSE 1 HOUR 149(H) <130 mg/dL TB 11/22/2024 7:47 AM EDT 11/22/2024 7:50 AM EDT Narrative [facility] - 11/22/2024 8:41 AM EDT us Rocio Lozano DO LAB BLOOD ORDERABLES Final Resul t [facility] * (ABNORMAL) ALL CBC WITH [...] - 11/22/2024 8:25 AM EDT us Rocio Jasono DO [facility] Final Result [facility] from Last 3 Months Additional Health Concerns Active Problems Noted Date Diagnosed Date OB Reminders 07/11/2024 Insurance [employer] Member Subscriber Plan / Payer (Ef fective 2023-Present) Name:Alondra Beaver Relation to Subscriber:Self Name:Alondra Beaver Payer ID:Not on file Type:Not on file Address: [place] [phone] [employer] Care Teams Finished Stock Inspector Relationship Specialty Start Date End Date Unallocated, Noms Provider, [place] [address] [address] PCP - General Family Medicine 06/23/23
--- OUTSIDE RECORDS SUMMARY | 2025-02-01 07:00 | XMS_ITS | Encounter Summary ---
Author Organization [facility] Address [address] [place] [address] Care Team Providers Care Car Construction Superintendent Name Role Phone Unallocated, Noms Provider Primary Care Provi ulysses Encounter Details Date Type Department Care Team (Late st Contact Info) Description 01/25/2025 Clinisync Result Encounter [facility] External Department Unsolicited Rocio Lozano, DO [address] [facility] [place] [address] Social History Tobacco Use Types Packs/Day Years [...] Routine [facility] [address] [place] [address] Rosaura Li, LIBBY [address] [place] [address] documented as of this encounter Goals Goal Patient Goal Type Associated Problems Recent Progress Patient-Stated? Author Reminders Care Plan OB Reminders Jennifer Bond RN documented as of this encounter Procedures Procedure Name Priority Date/Time Associated Diagnosis Comments US OB BPP W NON-STRESS 01/25/2025 8:50 AM EDT documented in this encounter Results * US OB BPP W NON-STRESS (01/25/2025 8:50 AM EDT) Anatomical Region Laterality Modality Other 01/25/2025 8:50 AM EDT Narrative 01/25/2025 8:52 AM EDT The [address] [address] Ultrasound Report Signed Patient: ALONDRA BEAVER MR#: [id number] : 1995 Acct:[id number] Age/Sex: 29 / F ADM Date: 01/25/25 Loc: US Attending Dr: Rocio Lozano D.O. Ordering Physician: Rocio Lozano D.O. Date of Service: 01/25/25 Procedure(s): US OB BPP w non-stress Accession Number(s): [id number] cc: Rocio Lozano D.O.; Zita Alanis M.D. [address] [address] Patient Name: ALONDRA BEAVER MRN: [id number] date: 1995 Sex: F Assigned Patient Location: [facility] Current Patient Location: Accession/Order Number: [id number] Exam Date: 01/25/2025 07:01 Report Date: 01/25/2025 [...] Lu M.D. 01/25/2025 8:50 AM Dictation Location: [employer] Electronically authenticated by: [id number] Y Date: 01/25/2025 08:50 Dictated By: Zita Lu M.D. Signed By: 01/25/25 0852 DD/ 0850 TD/TT: Senior Clinical Data Manager: Procedure Note Radiology, Radiologist, - 01/25/2025 [place] [address] Ultrasound Report Signed Patient: ALONDRA BEAVER [facility]#: [id number] : 1995Acct:[id number] Age/Sex: 29 / FADM Date: 01/25/25 Loc: US Attending Dr: Rocio Lozano D.O. Ordering Physician: Rocio Lozano D.O. Date of Service: 01/25/25 Procedure(s): US OB BPP w non-stress Accession Number(s): [id number] cc: Rocio Lozano D.O.; Zita Alanis M.D. The [place] [id number] Patient Name: ALONDRA BEAVER MRN: [id number] date: 1995 Sex: F Assigned Patient Location: [facility] Current Patient Location: Accession/Order Number: [id number] Exam Date: 01/25/2025 07:01 Report Date: 01/25/2025 [...] Lu M.D. 01/25/2025 8:50 AM Dictation Location: [place] [address] Electronically authenticated by: [id number] Y Date: 508:50 Dictated By: Zita Lu M.D. Signed By:01/25/25 0852 DD/ 0850 TD/TT: Senior Clinical Data Manager: us Rocio Lozano DO [facility] Final Result documented in this encounter Visit Diagnoses Not on filedocumented in this encounter Additional Health Concerns Active Problems Noted Date Diagnosed Date OB Reminders 07/11/2024 documented as of this encounter Care Teams Car Construction Superintendent Relationship Specialty Start Date End Date Unallocated, Noms Provider[place] [place] [address] PCP - General Family Medicine 06/23/23 documented as of this encounter
--- OUTSIDE RECORDS SUMMARY | 2025-02-01 07:00 | XMS_ITS | Encounter Summary ---
Author Organization [facility] Address [address] [place] [address] Care Team Providers Care Emergency Spill Response Technician Name Role Phone Unallocated, Noms Provider Primary Care Provi ulysses Encounter Details Date Type Department Care Team (Late st Contact Info) Description 01/18/2025 Clinisync Result Encounter [facility] External Department Unsolicited Rocio Lozano, DO [address] [facility] [address] [place] [address] Social History Tobacco Use Types Packs/Day Years [...] Routine [facility] [address] [place] [address] Rosaura Li, LIBBY [address] [place] [address] documented as of this encounter Goals Goal Patient Goal Type Associated Problems Recent Progress Patient-Stated? Author Reminders Care Plan OB Reminders Jennifer Bond RN documented as of this encounter Procedures Procedure Name Priority Date/Time Associated Diagnosis Comments US OB BPP W NON-STRESS 01/18/2025 8:45 AM EDT documented in this encounter Results * US OB BPP W NON-STRESS (01/18/2025 8:45 AM EDT) Anatomical Region Laterality Modality Other 01/18/2025 8:45 AM EDT Narrative 01/18/2025 8:48 AM EDT The [address] [address] Ultrasound Report Signed Patient: ALONDRA BEAVER MR#: [id number] : 1995 Acct:[id number] Age/Sex: 29 / F ADM Date: 01/18/25 Loc: US Attending Dr: Rocio Lozano D.O. Ordering Physician: Rocio Lozano D.O. Date of Service: 01/18/25 Procedure(s): US OB BPP w non-stress Accession Number(s): [id number] cc: Rocio Lozano D.O.; Zita Alanis M.D. The [address] [address] Patient Name: ALONDRA BEAVER MRN: [id number] date: 1995 Sex: F Assigned Patient Location: [facility] Current Patient Location: US Accession/Order Number: [id number] Exam Date: 01/18/2025 07:04 Report Date: 01/18/2025 [...] lasting at least 30 seconds [Y] 2/2 ZUMLA: A single deepest vertical pocket of amniotic fluid greater than 2 cm [Y] 2/2 ZULMA: 12.1 cm. This is in low-normal range. Total score: 8/8 US/US OB BPP w non-stress IMPRESSION: NORMAL BIOPHYSICAL PROFILE Impression dictated by: Zita Lu M.D. 01/18/2025 8:45 AM Dictation Location: [employer] Electronically authenticated by: [id number] Y Date: 01/18/2025 08:45 Dictated By: Zita Lu M.D. Signed By: 01/18/2548 DD/ 4 TD/TT: Button Clamper: Procedure Note Radiology, Radiologist, - 01/18/2025 [place] [address] Ultrasound Report Signed Patient: ALONDRA BEAVER [facility]#: [id number] : 1995Acct:[id number] Age/Sex: 29 / FADM Date: 01/18/25 Loc: US Attending Dr: Rocio Lozano D.O. Ordering Physician: Rocio Lozano D.O. Date of Service: 01/18/25 Procedure(s): US OB BPP w non-stress Accession Number(s): [id number] cc: Rocio Lozano D.O.; Zita Alanis M.D. The [place] [id number] Patient Name: ALONDRA BEAVER MRN: [id number] date: 1995 Sex: F Assigned Patient Location: [facility] Current Patient Location: US Accession/Order Number: [id number] Exam Date: 01/18/2025 07:04 Report Date: 01/18/2025 08:45 At the request of: ROCIO LOZANO DO Procedure: US OB BPP w non-stress BIOPHYSICAL PROFILE: CLINICAL INFORMATION: ZULMA borderline low COMPARISON: 01/08/2025 There is a single live intrauterine gestation in cephalic presentation.The reported gestational age is 34 weeks 3 days. The heart ratemeasures 152 beats per minute. FINDINGS: TONE: 1 [...] Lu M.D. 01/18/2025 8:45 AM Dictation Location: [place] [address] Electronically authenticated by: [id number] Y Date: 508:45 Dictated By: Zita Lu M.D. Signed By:01/18/2548 DD/ TD/TT: Button Clamper: us Rocio Lozano DO [facility] Final Result documented in this encounter Visit Diagnoses Not on filedocumented in this encounter Additional Health Concerns Active Problems Noted Date Diagnosed Date OB Reminders 07/11/2024 documented as of this encounter Care Teams Emergency Spill Response Technician Relationship Specialty Start Date End Date Unallocated, Noms Provider, [place] [address] PCP - General Family Medicine 06/23/23 documented as of this encounter
--- NOTE | 2025-02-01 07:02 | US_ITS ---
[place] [id number] Patient Name: ALONDRA BEAVER MRN: [id number] date: 1995 Sex: F Assigned Patient Location: [facility] Current Patient Location: Accession/Order Number: [id number] Exam Date: 02/01/2025 07:05 Report Date: 02/01/2025 08:47 At the request of: ROCIO VINES DO Procedure: US OB BPP w non-stress Biophysical profile. Reason for exam: Borderline low ZULMA COMPARISON: 01/25/2025 TECHNIQUE: Transabdominal imaging of the gravid uterus was obtained. FINDINGS: The issue clerk reports a BPP of 8 out of 8. ZULMA is normal at 12.1 cm. heart rate 150 bpm. US/US OB BPP w non-stress IMPRESSION: BPP 8 out of 8. Impression dictated by: Terry Puentes Jr., D.O. 02/01/2025 8:47 AM Dictation Location: [place] [address] Electronically authenticated by: [id number] Y Date: 02/01/2025 08:47
[2025-02-01 07:23] VITALS: BP 129/81; PULSE 96
== END 2025-02-01 07:51 | disposition home or self-care (01) ==
LOC: US 06:58 → FBC 06:59
PROVIDERS: PCP Family Medicine; Visit Provider Obstetrics & Gynecology
DX: O26.893 Other specified pregnancy related conditions, third trimester (principal); Z3A.36 36 weeks gestation of pregnancy
CPT/HCPCS: 76818

== ENCOUNTER 2025-02-08 06:56 | Outpatient (OUT) | payer OTHER, SELFPAY ==
--- OUTSIDE RECORDS SUMMARY | 2025-01-29 08:27 | XMS_ITS ---
Author Name Auto Generated Organization OHIP Support Name Relationship Address Phone KIRK BEAVER Next of Kin [address] [place], [place] [address], [place] [address] + KIRK BEAVER Next of Kin [address] [place] [address], [place] [address] + KIRK BEAVER Next of Kin [address] [place] [address], [place] [address] + KIRK BEAVER Next of Kin [address] [place] [address], [place] [address] + KIRK BEAVER Next of Kin [address] [place] [address], [place] [address] + KIRK BEAVER Next of Kin [address] [place] [address], [place] [address] + KIRK BEAVER Next of Kin [address] [place] [address], [place] [address] + KIRK BEAVER Next of Kin [address] [place] [address], [place] [address] + KIRK BEAVER Next of Kin [address] [place] [address] [place] [address] + KIRK BEAVER Next of Kin [address] [place] [address] [place] [address] + KIRK BEAVER Next of Kin [address] [place] [address] [place] [address] + KIRK BEAVER Next of Kin [address] [place] [address] [place] [address] + KIRK BEAVER Next of Kin [address] [place] [address] [place] [address] + KIRK BEAVER Next of Kin Unknown [phone] KIRK BEAVER Next of Kin Unknown [phone] KIRK BEAVER Next of Kin [address] [place] [address] + Care Team Providers Care Psych Sales Specialist Name Role Phone MOHINDER, ROCIO Attending Unavailable MANDY, LUIS Attending Unavailable MOHINDER, ROCIO Attending Unavailable MANDY, LUIS Attending Unavailable MOHINDER, ROCIO Attending Unavailable MOHINDER, ROCIO Referring Unavailable MANDY, LUIS Attending Unavailable MOHINDER, ROCIO Attending Unavailable KERA NOWAK Attending Unavailable MOHINDER, ROCIO Attending Unavailable ATTILA BUNDY Attending Unavailable Klaemaria t, Zita Attending Unavailable Zita Alanis Primary Care Unavailable PROBLEMS No Problem Records Found PROCEDURES No Procedure Records Found RESULTS RAD - OTHER RADIOLOGY REPORT Observed: 01/18/2025 11:00 AM Status: F Source: [place] [id number]#1.00OTGTIFF OUTSIDE RECORDS Observed: 01/08/2025 2:21 PM Status: F Source: [place] [id number]#1.00OTGTIFF OUTSIDE RECORDS Observed: 01/04/2025 1:00 PM Status: F Source: [place] [id number]#1.00OTGTIFF US OB FOLLOW UP TRANSABDOMINAL APPROACH Observed: 12/19/2024 7:58 AM Status: F Source: [facility] EPIC Order Comment: US OB SCAN FO R GROWTH Estimated Date of Delivery: 02/26/25 Gestational Age as of 12/05/2024: 28w1d FINDINGS: Comparison made with prior examination of [...] BY: ELECTRONICALLY SIGNED BY: Terry Rodriguez MD US OB 14+ WEEKS ANATOMY SCAN Observed: 0 09/28/2024 3:24 PM Status: F Source: [facility] EPIC Order Comment: US OB ANATOMY SINGLE W US OB CERVICAL LENGTH Estimated Date of Delivery: 02/26/25 Gestational Age as of 09/28/2024: 18w3d EXAM: US OB 14+ WEEKS ANATOM Y SCAN HISTORY: anatomy. COMPARISON: Ob ultrasound 08/10/2024. [...] MD, PHD at 27-Oct-2024 06:14:52 AM [facility] US OB < 14 WEEKS EARLY Observed: 025 1:43 PM Status: F Source: [facility] EPIC Order Comment: US OB [...] II, MD, PHD at 11-Aug-2024 08:40:37 AM [facility] OUTSIDE RECORDS Observed: 03/29/2024 10:45 AM Status: F Source: [facility] [id number]#1.00OTGTIFF OUTSIDE RECORDS Observed: 03/29/2024 10:41 AM Status: F Source: [facility] [id number]#1.00OTGTIFF ALLERGIES DATE TYPE / CODE NAME / CODE REACTION SEVERITY SOURCE Drug/[id number](SNOMED CT) No known allergies [facility] ENCOUNTERS ADMIT/DISCHARGE ACCOUNT NUMBER ADMITTING ENCOUNTER CLASS LOCATION SOURCE 01/29/2025/ 5 [id number] Ambulatory Building:NOM S [facility] OB [facility] 01/15/2025/ 5 [id number] Ambulatory Building:N[facility] OB [facility] 01/02/2025/ 5 [id number] Ambulatory Building:N[facility] OB [facility] 12/19/2024/ 5 [id number] Ambulatory Building:N[facility] OB [facility] 12/19/2024/ 5 [id number] Ambulatory Building:N[facility] OB [facility] 12/05/2024/ 5 [id number] Ambulatory Building:N[facility] OB [facility] 11/22/2024/ 5 [id number] Ambulatory Building:N[facility] OB [facility] 10/26/2024/ 5 [id number] Ambulatory Building:N[facility] OB [facility] 10/26/2024/ 5 [id number] Ambulatory Building:N[facility] OB [facility] 09/28/2024/ 5 [id number] Ambulatory Building:N[facility] OB [facility] 08/29/2024/ 5 [id number] Ambulatory Building:NOM S [facility] OB [facility] EPIC 08/10/2024/ 5 [id number] Ambulatory Building:N[facility] EPIC 08/10/2024/ 5 [id number] Ambulatory Building:N[facility] S [facility] OB [facility] EPIC 07/11/2024/ 5 [id number] Ambulatory Building:NOM S [facility] OB [facility] EPIC 05/16/2024/ 5 [id number] Ambulatory Building:NOM S [facility] OB [facility] EPIC 03/30/2024/ 4 [id number] [facility]: [facility] 2 [facility] PAYERS ENCOUNTER GUARANTOR PAYER SUBSCRIBER SOURCE 01/29/2025 [facility] [address] [address]Lug: () Primary Insurance:MEDICAL MUTUALPolicy Number: [id number] e Date:2023-11-08 [facility]: [id number] [facility] EPIC 01/29/2025 Secondary Insurance:MEDICAL MUTUALPolicy Number: [id number] Date:2024-11-07 [facility]: [id number] [address] [facility] EPIC 01/15/2025 [facility] [address] [address]Img: () Primary Insurance:MEDICAL MUTUALPolicy Number: [id number] e Date:2023-11-08 [facility]: [id number] [place] [id number] [facility] EPIC 01/15/2025 Secondary Insurance:MEDICAL MUTUALPolicy Number: [id number] Date:2024-11-07 [facility]: [id number] [address] [address] [facility] EPIC 01/02/2025 [facility] [address], [place] [address]Glq: (HP) Primary Insurance:MEDICAL MUTUALPolicy Number: [id number] e Date:2023-11-08 [facility]: [id number] [facility] [address] [place] [address] [facility] EPIC 01/02/2025 Secondary Insurance:MEDICAL MUTUALPolicy Number: [id number] Date:2024-11-07 [facility]AB: [id number] [address] [place] [address] [facility] EPIC 12/19/2024 ALONDRA JOEB: [facility] [address], [place] [address]Ezx: (HP) Primary Insurance:MEDICAL MUTUALPolicy Number: [id number] e Date:2023-11-08 [facility] MARYVALEB: [id number] [facility] [address] [place] [address] [facility] EPIC 12/19/2024 Secondary Insurance:MEDICAL MUTUALPolicy Number: [id number] Date:2024-11-07 [facility]K [facility]: [id number] [address] [place] [address] [facility] EPIC 12/19/2024 ALONDRA JOEB: [facility] [address], [place] [address]Vyr: (HP) Primary Insurance:MEDICAL MUTUALPolicy Number: [id number] e Date:2023-11-08 ALONDRA HEATHB: [id number] [facility] [address] [place] [address] [facility] EPIC 12/19/2024 Secondary Insurance:MEDICAL MUTUALPolicy Number: [id number] Date:2024-11-07 [facility]: [id number] [address] [place] [address] [facility] EPIC 12/05/2024 ALONDRA BEAVERDOB: [facility] [address], [place] [address]Cru: (HP) Primary Insurance:MEDICAL MUTUALPolicy Number: [id number] e Date:2023-11-08 [facility]: [id number] [facility] [address] [address] [facility] EPIC 12/05/2024 Secondary Insurance:MEDICAL MUTUALPolicy Number: [id number] Date:2024-11-07 [facility]: [id number] [place] [address] [facility] EPIC 11/22/2024 [facility]: [address] [address]Ayh: (HP) Primary Insurance:MEDICAL MUTUALPolicy Number: [id number] e Date:2023-11-08 [facility]: [id number] [facility] [address] [address] [facility] EPIC 11/22/2024 Secondary Insurance:MEDICAL MUTUALPolicy Number: [id number] Date:2024-11-07 [facility]: [id number] [place] [address] [facility] EPIC 10/26/2024 [facility]: [facility] [address], [place] [address]Xtv: (HP) Primary Insurance:MEDICAL MUTUALPolicy Number: [id number] e Date:2023-11-08 [facility]: [id number] [facility] [address] [address] [facility] EPIC 10/26/2024 [facility]: [address] [address]Uch: (HP) Primary Insurance:MEDICAL MUTUALPolicy Number: [id number] e Date:2023-11-08 [facility]: [id number] [facility] [address] [address] [facility] EPIC 09/28/2024 ALONDRA BEAVERDOB: [facility] [address], [place] [address]Kon: (HP) Primary Insurance:MEDICAL MUTUALPolicy Number: [id number] e Date:2023-11-08 ALONDRA BEAVERDOB: [id number] [facility] [address] [address] [facility] EPIC 08/29/2024 [facility]DRA [facility]: [facility] [address], [place] [address]Lvr: (HP) Primary Insurance:MEDICAL MUTUALPolicy Number: [id number] e Date:2023-11-08 [facility] MARYVALEDOB: [id number] [facility] [address] [address] [facility] EPIC 08/10/2024 [facility] MARYVALEDOB: [address] [address]Iun: (HP) Primary Insurance:MEDICAL MUTUALPolicy Number: [id number] e Date:2023-11-08 ALONDRA BEAVERDOB: [id number] [facility] [address] [address] [facility] EPIC 08/10/2024 [facility] MARYVALEDOB: [facility] [address], [place] [address]Zrz: (HP) Primary Insurance:MEDICAL MUTUALPolicy Number: [id number] e Date:2023-11-08 [facility]: [id number] [facility] [address] [address] [facility] EPIC 07/11/2024 [facility] MARYVALEDOB: [facility] [address], [place] [address]Fkq: (HP) Primary Insurance:MEDICAL MUTUALPolicy Number: [id number] e Date:2023-11-08 [facility] MARYVALEB: [id number] [address] [address] [facility] EPIC 05/16/2024 [facility]: [address] [address]Afk: () Primary Insurance:MEDICAL MUTUALPolicy Number: [id number] e Date:2023-11-08 ALONDRA HEATHB: [id number] [address] [facility] EPIC 03/30/2024 [facility]: [address] [address]Tto: () Primary Insurance:MEDICAL MUTUALPolicy Number: [id number] e Date:[id number] Name:CommercialPO BOX [address]ZPDDK, [place] [address]TG: ALONDRA HEATHB: [id number] [address] [address]Cjt: () [facility]
--- NOTE | 2025-02-08 07:09 | US_ITS ---
The [place] [id number] Patient Name: ALONDRA BEAVER MRN: [id number] date: 1995 Sex: F Assigned Patient Location: [facility] [place] [facility]/Order Number: [id number] Exam Date: 02/08/2025 07:10 Report Date: 02/08/2025 09:24 At the request of: ROCIO VINES DO Procedure: US OB BPP w non-stress BIOPHYSICAL PROFILE: CLINICAL INFORMATION: ZULMA borderline low COMPARISON: 02/01/2025. There is a single live intrauterine gestation in cephalic presentation. The reported gestational age is 3 7 weeks 3 days. The heart rate measures 147 beats per minute. FINDINGS: TONE: 1 or more episodes of activity extension and flexion of extremity or opening and closing of the hand [Y] 2/2 GROSS BODY MOVEMENTS: 3 or more discrete body or limb movements [Y] 2/2 BREATHING MOVEMENTS: 1 or more episodes of breathing lasting at least 30 seconds [Y] 2/2 ZULMA: A single deepest vertical pocket of amniotic fluid greater than 2 cm [Y] 2/2 ZULMA: 12.2 cm. This is in low-normal range. Total score: 8/8 US/US OB BPP w non-stress IMPRESSION: NORMAL BIOPHYSICAL PROFILE. Impression dictated by: Zita Lu M.D. 02/08/2025 9:24 AM Dictation Location: [place] [address] Electronically authenticated by: [id number] Y Date: 02/08/2025 09:24
[2025-02-08 07:24] VITALS: BP 139/87; PULSE 97
== END 2025-02-08 07:48 | disposition home or self-care (01) ==
LOC: US 06:56 → FBC 06:58
PROVIDERS: PCP Family Medicine; Visit Provider Obstetrics & Gynecology
DX: O26.893 Other specified pregnancy related conditions, third trimester (principal); Z3A.37 37 weeks gestation of pregnancy
CPT/HCPCS: 76818

== ENCOUNTER 2025-02-15 07:12 | Outpatient (OUT) | payer OTHER, SELFPAY ==
--- NOTE | 2025-02-15 | US_ITS ---
The [place] [id number] Patient Name: ALONDRA BEAVER MRN: [id number] date: 1995 Sex: F Assigned Patient Location: [facility] Current Patient Location: Accession/Order Number: [id number] Exam Date: 02/15/2025 07:15 Report Date: 02/15/2025 08:08 At the request of: ROCIO VINES DO Procedure: US OB BPP w non-stress BIOPHYSICAL PROFILE: CLINICAL INFORMATION: OLIGOHYDRAMNIOS O28.8 COMPARISON: 02/08/2025 There is a single live intrauterine gestation in cephalic presentation. The reported gestational age is 38 weeks 3 days. The heart rate measures 157 beats per minute. FINDINGS: TONE: 1 or more episodes of activity extension and flexion of extremity or opening and closing of the hand [Y] 2/2 GROSS BODY MOVEMENTS: 3 or more discrete body or limb movements [Y] 2/2 BREATHING MOVEMENTS: 1 or more episodes of breathing lasting at least 30 seconds [Y] 2/2 ZULMA: A single deepest vertical pocket of amniotic fluid greater than 2 cm [Y] 2/2 ZULMA: 10.1 cm.) This is in low-normal range. Total score: 8/8 US/US OB BPP w non-stress IMPRESSION: NORMAL BIOPHYSICAL PROFILE Impression dictated by: Zita uL M.D. 02/15/2025 8:08 AM Dictation Location: [place] [address] Electronically authenticated by: [id number] Y Date: 02/15/2025 08:08
--- OUTSIDE RECORDS SUMMARY | 2025-02-15 07:15 | XMS_ITS | CCD ---
Author Organization [facility] Care Team Providers Care Machine Feeder Name Role Phone DR JANES GARCIA Admitting [...] Primary Care Unavailable JOSÉ LOZANO Attending Unavailable GALILEO, NADINE Attending Unavailable BLAKE, JOSÉ Attending Unavailable NADINE GALVAN Attending Unavailable BLAKE, JOSÉ Attending Unavailable BLAKE, JOSÉ Referring Unavailable GALILEO, NADINE Attending Unavailable BLAKE, JOSÉ Attending Unavailable KERA LI Attending Unavailable BLAKE, JOSÉ Attending Unavailable MADELEINE BUNDY Attending Unavailable KERA LI Attending Unavailable Medications Current Medications Medication Drug [...] 08/21/2024 08/29/2024 Discontinued 21 day ethinyl estradiol 0.416276 mg/hr / etonogestrel 0.005 mg/hr vaginal system [...] [36 weeks gestation of ] 01-29-2025 Episodic Residual codes; unclassified (2 sources) Gestation period, 37 weeks; Translations: [37 weeks gestation of ] 02-08-2025 Episodic Sprains and strains (1 source) Strain [...] [facility] Facility OB BPP W NON-STRESS on 02-08-2025 [place] [address] Ultrasound Report Signed Patient: ALONDRA BEAVER MR#: [id number] : 1995 Acct:[id number] Age/Sex: 29 / F ADM Date: 02/08/25 Loc: US Attending Dr: José Lozano D.O. Ordering Physician: José Lozano D.O. Date of Service: 02/08/25 Procedure(s): US OB BPP w non-stress Accession Number(s): [id number] cc: José Lozano D.O.; Zita Alanis M.D. [place] [id number] Patient Name: ALONDRA BEAVER MRN: [facility]:[id number] date: 1995 Sex: F Assigned Patient Location: [facility] Current Patient Location: [facility] Accession/Order Number: [id number] Exam Date: 02/08/2025 07:10 Report Date: 02/08/2025 09:24 At the request of: JOSÉ LOZANO DO Procedure: US OB BPP w non-stress BIOPHYSICAL PROFILE: CLINICAL INFORMATION: ZULMA borderline low COMPARISON: 02/01/2025. There is a single live intrauterine gestation in cephalic presentation. The reported gestational age is 3 7 weeks 3 days. The heart rate measures 147 beats per minute. FINDINGS: TONE: 1 or [...] greater than 2 cm [Y] 2/2 ZULMA: 12.2 cm. This is in low-normal range. Total score: 12/15 US/US OB BPP w non-stress IMPRESSION: NORMAL BIOPHYSICAL PROFILE. Impression dictated by: Zita Lu M.D. 02/08/2025 9:24 AM Dictation Location: [place] [address] Electronically authenticated by: [id number] Y Date: 02/08/2025 09:24 Dictated By: Zita Lu M.D. Signed By: 02/08/25926 DD/ 3 TD/TT: Byproducts Pump Operator: [facility] Radiology, Radiologist, - 02/08/2025 [place] [address] Ultrasound Report Signed Patient: ALONDRA BEAVER MR#: [id number] : 1995 Acct:[id number] Age/Sex: 29 / F ADM Date: 02/08/25 Loc: US Attending Dr: José Lozano D.O. Ordering Physician: José Lozano D.O. Date of Service: 02/08/25 Procedure(s): US OB BPP w non-stress Accession Number(s): [id number] cc: José Lozano D.O.; Zita Alanis M.D. The [place] [id number] Patient Name: ALONDRA BEAVER MRN: [facility]:[id number] date: 1995 Sex: F Assigned Patient Location: [facility] Current Patient Location: [facility] Accession/Order Number: [id number] Exam Date: 02/08/2025 07:10 Report Date: 02/08/2025 09:24 At the request of: JOSÉ LOZANO DO Procedure: US OB BPP w non-stress BIOPHYSICAL PROFILE: CLINICAL INFORMATION: ZULMA borderline low COMPARISON: 02/01/2025. There is a single live intrauterine gestation in cephalic presentation. The reported gestational age is 3 7 weeks 3 days. The heart rate measures 147 beats per minute. FINDINGS: TONE: 1 or [...] greater than 2 cm [Y] 2/2 ZULMA: 12.2 cm. This is in low-normal range. Total score: 8/ US/US OB BPP w non-stress IMPRESSION: NORMAL BIOPHYSICAL PROFILE. Impression dictated by: Zita Lu M.D. 02/08/2025 9:24 AM Dictation Location: [place] [address] Electronically authenticated by: [id number] Y Date: 02/08/2025 09:24 Dictated By: Zita uL M.D. Signed By: 02/08/25926 DD/ 3 TD/TT: Byproducts Pump Operator: [facility] Radiology Study observation (narrative) [facility] OB BPP W NON-STRESS Ordered By: Radiologist Radiology on 02-08-2025 [facility] Work Phone: Urinalysis macro (dipstick) panel (U)on 02-08-2025 Bilirubin, UA Negative Negative - 4(70) +++ mg/dL [facility] Blood, UA Negative Negative - 50 Mark/mcL [facility] Clarity, UA Clear [facility] Color, UA Yellow [facility] Glucose, UA Negative Negative - 2000(110) ++++ mg/dL [facility] Interpretation and review of laboratory results Abnormal [facility] Ketones, UA Negative Negative - 160(16) ++++ mg/dL [facility] Leukocytes, UA 1+ Negative - 500+++ Mahsa/mcL [facility] Nitrite, UA Negative Negative - Positive [facility] pH, UA 6 5 - 9 [facility] Protein, UA Negative Negative - 2000(20) ++++ mg/dL [facility] Spec Grav, UA 1.01 1 - 1.03 [facility] Urobilinogen, UA 1.0 0.2 - 12 mg/dL [facility] OB BPP W NON-STRESS on 02-01-2025 [place] [address] Ultrasound Report Signed Patient: ALONDRA BEAVER MR#: [id number] : 1995 Acct:[id number] Age/Sex: 29 / F ADM Date: 02/01/25 Loc: US Attending Dr: José Lozano D.O. Ordering Physician: José Lozano D.O. Date of Service: 02/01/25 Procedure(s): US OB BPP w non-stress Accession Number(s): [id number] cc: José Lozano D.O.; Zita Alanis M.D. The [place] [address] Patient Name: ALONDRA BEAVER MRN: [facility]:[id number] date: 1995 Sex: F Assigned Patient Location: [facility] Current Patient Location: Accession/Order Number: [id number] Exam Date: 02/01/2025 07:05 Report Date: 02/01/2025 08:47 At the request of: JOSÉ LOZANO DO Procedure: US OB BPP w non-stress Biophysical profile. Reason for exam: Borderline low ZULMA COMPARISON: 01/25/2025 TECHNIQUE: Transabdominal imaging of the gravid uterus was obtained. FINDINGS: The motorcycle technician reports a BPP of 8 out of 8. ZULMA is normal at 12.1 cm. heart rate 150 bpm. US/US OB BPP w non-stress IMPRESSION: BPP 8 out of 8. Impression dictated by: Terry Puentes Jr., D.O. 02/01/2025 8:47 AM Dictation Location: [place] [address] Electronically authenticated by: [id number] Y Date: 02/01/2025 08:47 Dictated By: Terry Puentes M.D. Signed By: 02/01/25 0849 DD/ TD/TT: Byproducts Pump Operator: [facility] Radiology, Radiologist, - 02/01/2025 The [place] [id number] Ultrasound Report Signed Patient: ALONDRA BEAVER MR#: [id number] : 1995 Acct:[id number] Age/Sex: 29 / F ADM Date: 02/01/25 Loc: US Attending Dr: José Lozano D.O. Ordering Physician: José Lozano D.O. Date of Service: 02/01/25 Procedure(s): US OB BPP w non-stress Accession Number(s): [id number] cc: José Lozano D.O.; Zita Alanis M.D. [place] [address] Patient Name: ALONDRA BEAVER MRN: [facility]:[id number] date: 1995 Sex: F Assigned Patient Location: [facility] Current Patient Location: Accession/Order Number: [id number] Exam Date: 02/01/2025 07:05 Report Date: 02/01/2025 08:47 At the request of: JOSÉ LOZANO DO Procedure: US OB BPP w non-stress Biophysical profile. Reason for exam: Borderline low ZULMA COMPARISON: 01/25/2025 TECHNIQUE: Transabdominal imaging of the gravid uterus was obtained. FINDINGS: The motorcycle technician reports a BPP of 8 out of 8. ZULMA is normal at 12.1 cm. heart rate 150 bpm. US/US OB BPP w non-stress IMPRESSION: BPP 8 out of 8. Impression dictated by: Terry Puentes Jr., D.O. 02/01/2025 8:47 AM Dictation Location: [place] [address] Electronically authenticated by: [id number] Y Date: 02/01/2025 08:47 Dictated By: Terry Puentes M.D. Signed By: 02/01/2549 DD/ 6 TD/TT: Byproducts Pump Operator: [facility] Radiology Study observation (narrative) [facility] US OB BPP W NON-STRESS Ordered By: Radiologist Radiology on 02-01-2025 [facility] Work Phone: Urinalysis macro (dipstick) panel (U)on 01-29-2025 Bilirubin, UA Negative Negative - 4(70) +++ mg/dL [facility] Blood, UA Negative Negative - 50 Mark/mcL [facility] Clarity, UA Clear [facility] Color, UA Yellow [facility] Glucose, UA Negative Negative - 1999(110) ++++ mg/dL [facility] Interpretation and review of laboratory results Abnormal [facility] Ketones, UA Negative Negative - 160(16) ++++ mg/dL [facility] Leukocytes, UA Positive Negative - 500+++ Mahsa/mcL [facility] Comment on above: 3+ Nitrite, UA Negative Negative - Positive [facility] pH, UA 7 5 - 9 [facility] Protein, UA Negative Negative - 1999(20) ++++ mg/dL [facility] Spec Grav, UA 1.01 1 - 1.03 [facility] Urobilinogen, UA 0.2 0.2 - 12 mg/dL [facility] Rad - Other Radiology Report on 01-26-2025 Rad - Other Radiology Report [id number] #1.00OTGTIFF [facility] US OB BPP W NON-STRESS on 01-25-2025 [place] [address] Ultrasound Report Signed Patient: ALONDRA BEAVER MR#: [id number] : 1995 Acct:[id number] Age/Sex: 29 / F ADM Date: 01/25/25 Loc: US Attending Dr: José Lozano D.O. Ordering Physician: José Lozano D.O. Date of Service: 01/25/25 Procedure(s): US OB BPP w non-stress Accession Number(s): [id number] cc: José Lozano D.O.; Zita Alanis M.D. [address] [address] Patient Name: ALONDRA BEAVER MRN: [id number]:[id number] date: 1995 Sex: F Assigned Patient Location: [facility] Current Patient Location: Accession/Order Number: [id number] Exam Date: 01/25/2025 07:01 Report Date: 01/25/2025 [...] Lu M.D. 01/25/2025 8:50 AM Dictation Location: [place] [address] Electronically authenticated by: [id number] Y Date: 01/25/2025 08:50 Dictated By: Zita Lu M.D. Signed By: 01/25/25 0852 DD/ 0850 TD/TT: Byproducts Pump Operator: [facility] Radiology, Radiologist, - 01/25/2025 [place] [address] Ultrasound Report Signed Patient: ALONDRA BEAVER MR#: [id number] : 1995 Acct:[id number] Age/Sex: 29 / F ADM Date: 01/25/25 Loc: US Attending Dr: José Lozano D.O. Ordering Physician: José Lozano D.O. Date of Service: 01/25/25 Procedure(s): US OB BPP w non-stress Accession Number(s): [id number] cc: José Lozano D.O.; Zita Alanis M.D. [address] [address] Patient Name: ALONDRA BEAVER MRN: [facility]:[id number] date: 1995 Sex: F Assigned Patient Location: [facility] Current Patient Location: Accession/Order Number: [id number] Exam Date: 01/25/2025 07:01 Report Date: 01/25/2025 [...] Lu M.D. 01/25/2025 8:50 AM Dictation Location: [place] [address] Electronically authenticated by: [id number] Y Date: 01/25/2025 08:50 Dictated By: Zita Lu M.D. Signed By: 01/25/25 0852 DD/ TD/TT: Byproducts Pump Operator: [facility] Radiology Study observation (narrative) [facility] US OB BPP W NON-STRESS Ordered By: Radiologist Radiology on 01-25-2025 [facility] Work Phone: US OB BPP W NON-STRESS on 01-18-2025 [place] [id number] Ultrasound Report Signed Patient: ALONDRA BEAVER#: [id number] : 1995 Acct:[id number] Age/Sex: 29 / F ADM Date: 01/18/25 Loc: US Attending Dr: José Lozano D.O. Ordering Physician: José Lozano D.O. Date of Service: 01/18/25 Procedure(s): US OB BPP w non-stress Accession Number(s): [id number] cc: José Lozano D.O.; Zita Alanis M.D. [place] [address] Patient Name: ALONDRA BEAVER MRN: [id number]:[id number] date: 1995 Sex: F Assigned Patient Location: [facility] Current Patient Location: Accession/Order Number: [id number] Exam Date: 01/18/2025 07:04 Report Date: 01/18/2025 [...] Lu M.D. 01/18/2025 8:45 AM Dictation Location: [place] [address] Electronically authenticated by: [id number] Y Date: 01/18/2025 08:45 Dictated By: Zita Lu M.D. Signed By: 01/18/25 0848 DD/ TD/TT: Byproducts Pump Operator: [facility] Radiology, Radiologist, - 01/18/2025 [place] [address] Ultrasound Report Signed Patient: ALONDRA BEAVER MR#: [id number] : 1995 Acct:[id number] Age/Sex: 29 / F ADM Date: 01/18/25 Loc: US Attending Dr: José Lozano D.O. Ordering Physician: José Lozano D.O. Date of Service: 01/18/25 Procedure(s): US OB BPP w non-stress Accession Number(s): [id number] cc: José Lozano D.O.; Zita Alanis M.D. The [place] [id number] Patient Name: ALONDRA BEAVER MRN: [facility]:[id number] date: 1995 Sex: F Assigned Patient Location: [facility] Current Patient Location: US Accession/Order Number: [id number] Exam Date: 01/18/2025 07:04 Report Date: 01/18/2025 [...] This is in low-normal range. Total score: 8/ US/US OB BPP w non-stress IMPRESSION: NORMAL BIOPHYSICAL PROFILE Impression dictated by: Zita Lu M.D. 01/18/2025 8:45 AM Dictation Location: [place] [address] Electronically authenticated by: [id number] Y Date: 01/18/2025 08:45 Dictated By: Zita Lu M.D. Signed By: 01/18/2548 DD/ 4 TD/TT: Byproducts Pump Operator: [facility] Radiology Study observation (narrative) [facility] US OB BPP W NON-STRESS Ordered By: Radiologist Radiology on 01-18-2025 [facility] Work Phone: Urinalysis macro (dipstick) panel (U)on 01-15-2025 Bilirubin, UA Negative Negative - 4(70) +++ mg/dL [facility] Blood, UA Negative Negative - 50 Mark/mcL [facility] Clarity, UA Clear [facility] Color, UA Yellow [facility] Glucose, UA Negative Negative - 2000(110) ++++ mg/dL [facility] Interpretation and review of laboratory results Abnormal [facility] Ketones, UA Negative Negative - 160(16) ++++ mg/dL [facility] Leukocytes, UA Positive Negative - 500+++ Mahsa/mcL [facility] Comment on above: 1+ Nitrite, UA Negative Negative - Positive [facility] pH, UA 6 5 - 9 [facility] Protein, UA Negative Negative - 2000(20) ++++ mg/dL [facility] Spec Grav, UA 1.02 1 - 1.03 [facility] Urobilinogen, UA 0.2 0.2 - 12 mg/dL [facility] Outside Recordson 01-09-2025 Outside Records [id number]#1.00OTGTIFF [facility] Outside Records [id number] [facility] B[facility] W NON-STRESS on 01-08-[address] [address] Ultrasound Report Signed Patient: ALONDRA BEAVER MR#: [id number] : 1995 Acct:[id number] Age/Sex: 29 / F ADM Date: 01/08/25 Loc: US Attending Dr: José Lozano D.O. Ordering Physician: José Lozano D.O. Date of Service: 01/08/25 Procedure(s): US OB BPP w non-stress Accession Number(s): [id number] cc: José Lozano D.O.; Zita Alanis M.D. The [place] [address] Patient Name: ALONDRA BEAVER MRN: [facility]:[id number] date: 1995 Sex: F Assigned Patient Location: Current Patient Location: [facility] Accession/Order Number: [id number] Exam Date: 01/08/2025 12:03 Report Date: 01/08/2025 12:44 At the request of: JOSÉ LOZANO DO Procedure: US OB BPP w non-stress Biophysical profile. Reason for exam: Abnormal BPP. COMPARISON: 01/04/2025 TECHNIQUE: Transabdominal imaging of the gravid uterus was obtained. FINDINGS: The motorcycle technician reports a BPP of 8 out of 8. ZULMA is normal at 14.8 cm. heart rate 135 bpm. US/US OB BPP w non-stress IMPRESSION: BPP 8 out of 8. Impression dictated by: Terry Puentes Jr., D.O. 01/08/2025 12:44 PM Dictation Location: [place] [address] Electronically authenticated by: [id number] Y Date: 01/08/2025 12:44 Dictated By: Terry Puentes M.D. Signed By: 01/08/25 1246 DD/ 1244 TD/TT: Byproducts Pump Operator: [facility] Radiology, Radiologist, MD - 01/08/2025 [place] [address] Ultrasound Report Signed Patient: ALONDRA BEAVER MR#: [id number] : 1995 Acct:[id number] Age/Sex: 29 / F ADM Date: 01/08/25 Loc: US Attending Dr: José Lozano D.O. Ordering Physician: José Lozano D.O. Date of Service: 01/08/25 Procedure(s): US OB BPP w non-stress Accession Number(s): [id number] cc: José Lozano D.O.; Zita Alanis M.D. [address] [id number] Patient Name: ALONDRA BEAVER MRN: [id number]:[id number] date: 1995 Sex: F Assigned Patient Location: Current Patient Location: [facility] Accession/Order Number: [id number] Exam Date: 01/08/2025 12:03 Report Date: 01/08/2025 12:44 At the request of: JOSÉ LOZANO DO Procedure: US OB BPP w non-stress Biophysical profile. Reason for exam: Abnormal BPP. COMPARISON: 01/04/2025 TECHNIQUE: Transabdominal imaging of the gravid uterus was obtained. FINDINGS: The motorcycle technician reports a BPP of 8 out of 8. ZULMA is normal at 14.8 cm. heart rate 135 bpm. US/US OB BPP w non-stress IMPRESSION: BPP 8 out of 8. Impression dictated by: Terry Puentes Jr., D.O. 01/08/2025 12:44 PM Dictation Location: [place] [address] Electronically authenticated by: [id number] Y Date: 01/08/2025 12:44 Dictated By: Terry Puentes M.D. Signed By: 01/08/25 1246 DD/ 1244 TD/TT: Byproducts Pump Operator: [facility] Radiology Study observation (narrative) [facility] US OB BPP W NON-STRESS Ordered By: Radiologist Radiology on 01-08-2025 [facility] [employer] Work Phone: US OB BPP W NON-STRESS on 01-04-[address] [address] Ultrasound Report Signed Patient: ALONDRA BEAVER#: [id number] : 1995 Acct:[id number] Age/Sex: 29 / F ADM Date: 01/04/25 Loc: US Attending Dr: José Lozano D.O. Ordering Physician: José Lozano D.O. Date of Service: 01/04/25 Procedure(s): US OB BPP w non-stress Accession Number(s): [id number] cc: José Lozano D.O.; Zita Alanis M.D. [place] [address] Patient Name: ALONDRA BEAVER MRN: [id number] date: 1995 Sex: F Assigned Patient Location: [facility] Current Patient Location: Accession/Order Number: [id number] Exam Date: 01/04/2025 07:10 Report Date: 01/04/2025 10:27 At the request of: JOSÉ LOZANO DO Procedure: US OB BPP w non-stress BIOPHYSICAL PROFILE: CLINICAL INFORMATION: ZULMA BORDERLINE LOW O28.8 COMPARISON: None There is a single live intrauterine gestation in cephalic presentation. The reported gestational age is 32 weeks 3 days. The heart rate tbnsoctp061 beats per minute. FINDINGS: TONE: 1 or [...] Lu M.D. 01/04/2025 10:27 AM Dictation Location: [place] [address] Electronically authenticated by: [id number] Y Date: 01/04/2025 10:27 Dictated By: Zita Lu M.D. Signed By: 01/04/25 1030 DD/ 1027 TD/TT: Byproducts Pump Operator: [facility] Radiology, Radiologist, - 01/04/2025 [place] [address] Ultrasound Report Signed Patient: ALONDRA BEAVER MR#: [id number] : 1995 Acct:[id number] Age/Sex: 29 / F ADM Date: 01/04/25 Loc: US Attending Dr: José Lozano D.O. Ordering Physician: José Lozano D.O. Date of Service: 01/04/25 Procedure(s): US OB BPP w non-stress Accession Number(s): [id number] cc: José Lozano D.O.; Zita Alanis M.D. The [place] [address] Patient Name: ALONDRA BEAVER MRN: [facility]:[id number] date: 1995 Sex: F Assigned Patient Location: [facility] Current Patient Location: Accession/Order Number: [id number] Exam Date: 01/04/2025 07:10 Report Date: 01/04/2025 10:27 At the request of: JOSÉ LOZANO DO Procedure: US OB BPP w non-stress BIOPHYSICAL PROFILE: CLINICAL INFORMATION: ZULMA BORDERLINE LOW O28.8 COMPARISON: None There is a single live intrauterine gestation in cephalic presentation. The reported gestational age is 32 weeks 3 days. The heart rate isaoxudt850 beats per minute. FINDINGS: TONE: 1 or [...] Lu M.D. 01/04/2025 10:27 AM Dictation Location: [facility] Electronically authenticated by: [id number] Y Date: 01/04/2025 10:27 Dictated By: Zita Lu M.D. Signed By: 01/04/25 1030 DD/ 1027 TD/TT: Byproducts Pump Operator: [facility] Radiology Study observation (narrative) [facility] US OB BPP W NON-STRESS Ordered By: Radiologist Radiology on 01-04-2025 [facility] Work Phone: Urinalysis macro (dipstick) panel (U)on 01-02-2025 Bilirubin, UA Negative Negative - 4(70) +++ mg/dL [facility] Blood, UA Negative Negative - 50 Mark/mcL [facility] Clarity, UA Clear [facility] Color, UA Yellow [facility] Glucose, UA Negative Negative - 2000(110) ++++ mg/dL [facility] Interpretation and review of laboratory results Abnormal [facility] Ketones, UA Negative Negative - 160(16) ++++ mg/dL [facility] Leukocytes, UA Positive Negative - 500+++ Mahsa/mcL [facility] Comment on above: Trace Nitrite, UA Negative Negative - Positive [facility] pH, UA 6.5 5 - 9 [facility] Protein, UA Negative Negative - 2000(20) ++++ mg/dL [facility] Spec Grav, UA 1.015 1 - 1.03 [facility] Urobilinogen, UA 0.2 0.2 - 12 mg/dL [facility] US OB FOLLOW UP TRANSABDOMIN AL [...] UA Negative Negative - 4(70) +++ mg/dL [facility] Blood, UA Negative Negative - 50 Mark/mcL [facility] Clarity, UA Clear [facility] Color, UA Yellow [facility] Glucose, UA Negative Negative - 2000(110) ++++ mg/dL [facility] Interpretation and review of laboratory results Abnormal [facility] Ketones, UA Negative Negative - 160(16) ++++ mg/dL [facility] Leukocytes, UA 3+ Negative - 500+++ Mahsa/mcL [facility] pH, UA 6 5 - 9 [facility] Protein, UA Negative Negative - 2000(20) ++++ mg/dL [facility] Spec Grav, UA 1.015 1 - 1.03 [facility] Urobilinogen, UA 0.2 0.2 - 12 mg/dL [facility] GLUCOSE TOLERANCE 3 HOURon 0 11-28-2024 GLUCOSE TOLERANCE 3 HOUR mg/dL [facility] Comment on above: GLU FAST 93 (<95) Co l: 11/28/24 0641 GLU 1HR 149 (<180) Col: 11/28/24 0743 GLU 2HR 118 (<155) Col: 11/28/24 0843 GLU 3HR 81 (<140) Col: 11/28/24 0942 [facility] ALL CBC WITH AUTO DIFFon BASOPHILS ABSOLUTE AUTO 0 [facility] Basophils/100 WBC (Bld) 0.4 % 0.2 - 2.0 % [facility] Eosinophils/100 WBC (Bld) 1.2 % 0.9 - 7.0 % [facility] Erythrocyte distribution width (RBC) [Ratio] 13 % 11.0 - 15.0 % [facility] Hematocrit (Bld) [Volume fraction] 35.6 % Low 36.0 - 48.0 % [facility] Hemoglobin (Bld) [Mass/Vol] 11.9 g/dL Low 12.0 - 16.0 g/dL [facility] IMMATURE GRANULOCYTES ABS AUTO 0.13 High [facility] Immature granulocytes/100 WBC (Bld) 1.2 % High 0.0 - 0.5 % [facility] Interpretation and review of laboratory results Abnormal [facility] LYMPHOCYTES ABSOLUTE AUTO 1.3 [facility] Lymphocytes/100 WBC (Bld) 11.6 % Low 20.5 - 60.0 % [facility] MCH (RBC) [Entitic mass] 30.9 pg 26.7 - 34.0 pg [facility] MCHC (RBC) [Mass/Vol] 33.4 g/dL 29.9 - 35.2 g/dL [facility] MCV (RBC) [Entitic vol] 92.5 fL 81.0 - 99.0 fL [facility] MONOCYTES ABSOLUTE AUTO 0.5 [facility] Monocytes/100 WBC (Bld) 4.9 % 1.7 - 12.0 % [facility] NEUTROPHILS ABSOLUTE AUTO 8.8 High [facility] Neutrophils/100 WBC (Bld) 80.7 % High 43.0 - 75.0 % [facility] Platelet mean volume (Bld) [Entitic vol] 10.5 fL 9.5 - 13.5 fL [facility] TBH EO # 0.1 [facility] TBH PLT 198 [facility] RBC 3.85 Low [facility] TB WBC 10.9 [facility] Urinalysis macro (dipstick) panel (U)on 11-22-2024 Bilirubin, UA Negative Negative - 4(70) +++ mg/dL [facility] Blood, UA Negative Negative - 50 Mark/mcL [facility] Clarity, UA Clear [facility] Color, UA Yellow [facility] Glucose, UA Negative Negative - 1999(110) ++++ mg/dL [facility] Interpretation and review of laboratory results Abnormal [facility] Ketones, UA Negative Negative - 160(16) ++++ mg/dL [facility] Leukocytes, UA Moderate Negative - 500+++ Mahsa/mcL [facility] Nitrite, UA Negative Negative - Positive [facility] pH, UA 6 5 - 9 [facility] Protein, UA Negative Negative - 1999(20) ++++ mg/dL [facility] Spec Grav, UA 1.01 1 - 1.03 [facility] Urobilinogen, UA 0.2 0.2 - 12 mg/dL [facility] Urinalysis macro (dipstick) panel (U)on 10-26-2024 Bilirubin, UA Negative Negative - 4(70) +++ mg/dL [facility] Blood, UA Negative Negative - 50 Mark/mcL [facility] Clarity, UA Clear [facility] Color, UA Yellow [facility] Glucose, UA Negative Negative - 1999(110) ++++ mg/dL [facility] Interpretation and review of laboratory results Normal [facility] Ketones, UA Negative Negative - 160(16) ++++ mg/dL [facility] Leukocytes, UA Negative Negative - 500+++ Mahsa/mcL [facility] Nitrite, UA Negative Negative - Positive [facility] pH, UA 6.5 5 - 9 [facility] Protein, UA Negative Negative - 1999(20) ++++ mg/dL [facility] Spec Grav, UA 1.02 1 - 1.03 [facility] Urobilinogen, UA 0.2 0.2 - 12 mg/dL [facility] US OB 14+ WEEKS ANATOMY SCAN [...] II, MD, PHD at 27-Oct-2024 06:14:52 AM [facility] Normal Not Available Comment on above: Order Comment: US OB ANATOMY SINGLE W US OB CERVICAL LENGTH Estimated Date of Delivery: 02/26/25 Gestational Age as of 09/28/2024: 18w3d BOX TESTon 08-29-2024 BOX TEST SENT OUT [employer] [facility] [employer] BOX1 [employer] [facility] [employer] BOX2 08-29-24 [facility] [employer] [facility] Urinalysis macro (dipstick) panel (U)on 08-29-2024 Bilirubin, UA Negative Negative - 4(70) +++ mg/dL [facility] Blood, UA Negative Negative - 50 Mark/mcL [facility] Clarity, UA Clear [facility] Color, UA Yellow [facility] Glucose, UA Negative Negative - 1999(110) ++++ mg/dL [facility] Interpretation and review of laboratory results Normal [facility] Ketones, UA Negative Negative - 160(16) ++++ mg/dL [facility] Leukocytes, UA Negative Negative - 500+++ Mahsa/mcL [facility] Nitrite, UA Negative Negative - Positive [facility] pH, UA 6 5 - 9 [facility] Protein, UA Negative Negative - 1999(20) ++++ mg/dL [facility] Spec Grav, UA 1.02 1 - 1.03 [facility] Urobilinogen, UA 0.2 0.2 - 12 mg/dL [facility] HCG ( test) Ql (U)o n 08-10-2024 Interpretation and review of laboratory results Abnormal [facility] Preg Test, Ur Positive Negative [facility] US OB < 14 WEEKS EARLYon [...] II, MD, PHD at 11-Aug-2024 08:40:37 AM [facility] Normal Not Available Comment on above: Order Comment: US OB Patient's last menstrual period was 05/09/2024 (exact date). Urinalysis macro (dipstick) panel (U)on 08-10-2024 Bilirubin, UA Negative Negative - 4(70) +++ mg/dL [facility] Blood, UA Negative Negative - 50 Mark/mcL [facility] Clarity, UA Clear [facility] Color, UA Yellow [facility] Glucose, UA Negative Negative - 1999(110) ++++ mg/dL [facility] Interpretation and review of laboratory results Abnormal [facility] Ketones, UA Positive Negative - 160(16) ++++ mg/dL [facility] Comment on above: 40 Leukocytes, UA Negative Negative - 500+++ Mahsa/mcL [facility] Nitrite, UA Negative Negative - Positive [facility] pH, UA 5.5 5 - 9 [facility] Protein, UA Negative Negative - 1999(20) ++++ mg/dL [facility] Spec Grav, UA 1.02 1 - 1.03 [facility] Urobilinogen, UA 0.2 0.2 - 12 mg/dL [facility] Outside Recordson 04-20-2024 Outside Records [id number] [facility] 03-31-2024 Outside Records [id number] 6#1.00[facility] Consent Formson 02-18-2024 Consent Forms [id number] 3D[facility]1.00[facility] Cytology Cervical or vaginal smear or scraping studyon 02-08-2024 [facility] HCG ( test) Ql (U)o n 02-08-2024 Interpretation and review of laboratory results Normal [facility] Preg Test, Ur Negative [facility] CMP Standardon 02-03-2024 eGFR Non AA >60 Invalid Interpretation Code [facility] Comment on above: Performed By: #### 1 [id number], [id number], 4672284, 3443453, 7074494, 9683763, 1572858 #### [facility] (DEFAULT) [address] [place] [address] 88803 eGFR AA >60 Invalid Interpretation Code [facility] Comment on above: Performed By: #### 1 [id number], [id number], 9504340, 8346027, 9782482, 2952963, 7997889 #### [facility] (DEFAULT) [address] [place] [address] 11369 Albumin [Mass/Vol] 4.4 g/dL Normal 3.5-5.0 [facility] Comment on above: Performed By: #### 1 [id number], [id number], 6182425, 2935026, 1307742, 3331072, 2572195 #### [facility] (DEFAULT) [address] [place] [address] 63026 Albumin/Globulin [Mass ratio] 1.4 {ratio} Normal 1.4-2.6 [facility] Comment on above: Performed By: #### 1 [id number], [id number], 2823381, 4130695, 8968425, 3714914, 3450789 #### [facility] (DEFAULT) [address] [place] [address] 68739 Alk Phos 67 IU/L Normal 32-91 [facility] Comment on above: Performed By: #### 1 [id number], [id number], 8613273, 9705594, 9591445, 8527943, 5371504 #### [facility] (DEFAULT) [address] [place] [address] 50103 ALT [Catalytic activity/Vol] 19.0 U/L Normal 14.0-54.0 [facility] Comment on above: Performed By: #### 1 [id number], [id number], 7052547, 3430611, 5294524, 7164481, 4529318 #### [facility] (DEFAULT) [address] [place] [address] 80180 Anion gap [Moles/Vol] 10.8 mmol/L Normal 5.0-19.0 [facility] Comment on above: Performed By: #### 1 [id number], [id number], 4251441, 1344005, 1944154, 6200227, 5859708 #### [facility] (DEFAULT) [address] [place] [address] 99859 AST [Catalytic activity/Vol] 21 U/L Normal 15-41 [facility] Comment on above: Performed By: #### 1 [id number], 8051006705, 8677199, 8185902, 9562701, 5564614, 6305722 #### [facility] (DEFAULT) [address] [place] [address] 08555 Bili Total 0.7 mg/dL Normal 0.3-1.2 [facility] Comment on above: Performed By: #### 1 [id number], 3179851178, 1518014, 7829112, 1897615, 4688460, 6061248 #### [facility] (DEFAULT) [address] [place] [address] 27054 Calcium [Mass/Vol] 8.9 mg/dL Normal 8.9-10.3 [facility] Comment on above: Performed By: #### 1 [id number], 2798756754, 7361606, 3124061, 3164529, 3853373, 2196908 #### [facility] (DEFAULT) [address] [place] [address] 84773 Chloride [Moles/Vol] 100 mmol/L Low 101-111 [facility] Comment on above: Performed By: #### 1 [id number], 0143483494, 9906810, 4657934, 2607879, 2870106, 7752629 #### [facility] (DEFAULT) [address] [place] [address] 29123 CO2 [Moles/Vol] 26 mmol/L Normal 21-32 [facility] Comment on above: Performed By: #### 1 [id number], 1527292912, 9626270, 8129031, 3146978, 8384248, 3328685 #### [facility] (DEFAULT) [address] [place] [address] 74288 Creatinine [Mass/Vol] 0.86 mg/dL Normal 0.60-1.30 [facility] Comment on above: Performed By: #### 1 [id number], 8891563147, 5500493, 5887880, 6040095, 3758469, 0632147 #### [facility] (DEFAULT) [address] [place] [address] 25418 Globulin (S) [Mass/Vol] 3.1 g/dL Normal 1.5-4.3 [facility] Comment on above: Performed By: #### 1 [id number], 7939548880, 0114660, 4610024, 1140196, 9074913, 4855000 #### [facility] (DEFAULT) [address] [place] [address] 70276 Glucose [Mass/Vol] 90.0 mg/dL Normal 74.0-118.0 [facility] Comment on above: Performed By: #### 1 [id number], 9822308925, 5482394, 6194426, 7150214, 5708478, 0638241 #### [facility] (DEFAULT) [address] [place] [address] 58881 Osmolality 267 mOsm/L Invalid Interpretation Code [facility] Comment on above: Performed By: #### 1 [id number], 0461614400, 8739443, 3707511, 8712363, 5047810, 2171578 #### [facility] (DEFAULT) [address] [place] [address] 78578 Potassium [Moles/Vol] 3.8 mmol/L Normal 3.6-5.1 [facility] Comment on above: Performed By: #### 1 [id number], 5152394390, 4809628, 1163015, 2205206, 6609651, 8248492 #### [facility] (DEFAULT) [address] [place] [address] 58966 Protein [Mass/Vol] 7.5 g/dL Normal 6.5-8.1 [facility] Comment on above: Performed By: #### 1 [id number], 0392944610, 9969266, 8403604, 1431762, 9963538, 6374186 #### [facility] (DEFAULT) [address] [place] [address] 88003 Sodium [Moles/Vol] 133.0 mmol/L Low 136.0-144.0 [facility] Comment on above: Performed By: #### 1 [id number], 8437786219, 6344581, 2015468, 9854739, 6605387, 3613317 #### [facility] (DEFAULT) [address] [place] [address] 71052 Urea nitrogen [Mass/Vol] 17 mg/dL Normal 01-02 [facility] Comment on above: Performed By: #### 1 [id number], 7547920747, 4514292, 8567163, 1818823, 5106981, 6047386 #### [facility] (DEFAULT) [address] [place] [address] Urea nitrogen/Creatinine [Mass ratio] 19.7 mg/mg High 4.6-16.2 [facility] Comment on above: Performed By: #### 1 [id number], 7433745054, 4644217, 6175723, 1858050, 6660229, 7049357 #### [facility] (DEFAULT) [address] [place] [address] 83072 GGTon 02-03-2024 Gamma glutamyl transferase [Catalytic activity/Vol] 20.0 U/L Normal 7.0-50.0 [facility] Comment on above: Performed By: #### 1 [id number], 1444692104, 1984628, 5333922, 3929570, 0869922, 7851638 #### [facility] (DEFAULT) [address] [place] [address] 20417 Iron Levelon 02-03-2024 Iron [Mass/Vol] 93.0 ug/dL Normal 28.0-170.0 [facility] Comment on above: Performed By: #### 1 [id number], 3686210607, 1324232, 5853591, 5860190, 2433738, 9547765 #### [facility] (DEFAULT) [address] [place] [address] 20152 LDHon 02-03-2024 LDH 126.0 IU/L Normal 98.0-192.0 [facility] Comment on above: Performed By: #### 1 [id number], 2964448552, 3846776, 5355099, 4140845, 2929830, 9332080 #### [facility] (DEFAULT) [address] [place] [address] 73080 Lipid Panel Standardon 02-02 Cholesterol [Mass/Vol] 214.0 mg/dL High 66.0-200.0 [facility] Comment on above: Performed By: #### 1 [id number], 2799148284, 2053152, 3652975, 0413351, 3347416, 0594397 #### [facility] (DEFAULT) [address] [place] [address] 25752 Cholesterol in HDL [Mass/Vol] 64 mg/dL Normal 40-71 [facility] Comment on above: Performed By: #### 1 [id number], 0547379881, 1362970, 0769131, 0230706, 9374688, 0532711 #### [facility] (DEFAULT) [address] [place] [address] 91600 Cholesterol in LDL [Mass/Vol] 144 mg/dL High 1-100 [facility] Comment on above: Performed By: #### 1 [id number], 1104529531, 7889652, 6080037, 7983024, 2779400, 0676118 #### [facility] (DEFAULT) [address] [place] [address] 44663 Cholesterol.total/C holesterol in HDL [Mass ratio] 3.3 {ratio} Normal 0.0-4.5 [facility] Comment on above: Performed By: #### 1 [id number], 1822428015, 0332587, 1026910, 5451071, 9228552, 0228599 #### [facility] (DEFAULT) [address] [place] [address] 46278 Triglyceride [Mass/Vol] 28.0 mg/dL Normal 0.0-150.0 [facility] Comment on above: Performed By: #### 1 [id number], 9321406570, 4344860, 7867282, 9442149, 1870110, 9301633 #### [facility] (DEFAULT) [address] [place] [address] 62549 VLDL. 6 mg/dL Normal 5-40 [facility] Comment on above: Performed By: #### 1 [id number], 2437848980, 0124817, 0374095, 2315810, 7567020, 7976065 #### [facility] (DEFAULT) [address] [place] [address] 19249 Phoson 02-03-2024 Phosphate [Mass/Vol] 2.9 mg/dL Normal 2.5-4.6 [facility] Comment on above: Performed By: #### 1 [id number], 6271356738, 3853552, 2686729, 6036420, 1553891, 6647331 #### [facility] (DEFAULT) [address] [place] [address] 40240 Uric Acidon 02-03-2024 Urate [Mass/Vol] 4.0 mg/dL Normal 2.6-8.0 [facility] Comment on above: Performed By: #### 1 [id number], 8030244603, 3383560, 8397082, 0884247, 2476216, 9851995 #### [facility] (DEFAULT) [address] [place] [address] 62592 XR chest 2V*on 03-02-2023 XR chest 2V* [facility] [place] [address] XRay Report Signed Patient: Alondra Sanches MR#: [id number] : 1995 Acct:[id number] Age/Sex: 27 / F ADM Date: 03/02/23 Loc: [facility] Room: Type: [facility] Attending Dr: Lisandro Buitrago DO Copies to: Lisandro Buitrago DO Ordering Provider: Lisandro Buitrago DO Date of Service: 03/02/23 XR/XR shoulder LT min 2V*: Left shoulder pain ([id number]) XR/XR chest 2V*: Left shoulder pain;Chest pain [...] Puentes Jr., D.O.03/02/2023 4:13 PM Dictation Location: [place] [address] Transcribed By: [facility] 03/02/231612 Dictated By: Terry Puentes Jr, DO 03/02/231611 Signed By: 03/02/231612 Normal [facility] CBC W MANUAL DIFFon 07-29-19 ATYPICAL LYMPH # Normal [facility] Comment on above: Performed By: #### C GARRET #### [facility] [address] [place] [address] Dr. Susannah Hopkins ATYPICAL LYMPH % Normal [facility] Comment on above: Performed By: #### C BCMAN #### [facility] [address] [place] [address] Dr. Susannah Hopkins BAND # 0.3 103/ul Normal 0.0-0.3 [facility] Comment on above: Performed By: #### C BCMAN #### [facility] [address] [place] [address] Dr. Susannah Hopkins BAND % 2 % Normal 0-5 [facility] Comment on above: Performed By: #### C BCMAN #### [facility] [address] [place] [address] [address] Susannah Hopkins BASOM # 0.00 103/ul Normal 0.00-0.10 [facility] Comment on above: Performed By: #### C BCMAN #### [facility] [address] [place] [address] Dr. Susannah Hopkins BASOM % 0.0 % Critically low 0.2-2.0 [facility] Comment on above: Performed By: #### C BCMAN #### [facility] [address] [place] [address] Dr. Susannah Hopkins BLAST # Normal [facility] Comment on above: Performed By: #### C GARRET #### [facility] [address] [place] [address] [address] Susannah Hopkins BLAST % Normal [facility] Comment on above: Performed By: #### C GARRET #### [facility] [address] [place] [address] Dr. Susannah Hopkins CORRECTED WBC Normal 4.0-11.0 [facility] Comment on above: Performed By: #### C GARRET #### [facility] [address] [place] [address] Dr. Susannah Hopkins EOS # 0.00 103/ul Normal 0.00-0.70 [facility] Comment on above: Performed By: #### C GARRET #### [facility] [address] [place] [address] Dr. Susannah Hopkins EOS% 0.0 % Critically low 0.9-7.0 [facility] Comment on above: Performed By: #### C GARRET #### [facility] [address] [place] [address] Dr. Susannah Hopkins HCT 46.0 % Normal 36.0-48.0 [facility] Comment on above: Performed By: #### C GARRET #### [facility] [address] [place] [address] Dr. Susannah Hopkins HGB 15.7 g/dl Normal 12.0-16.0 [facility] Comment on above: Performed By: #### C GARRET #### [facility] [address] [place] [address] Dr. Susannah Hopkins LYMPHM # 0.69 103/ul Critically low 1.20-3.80 [facility] Comment on above: Performed By: #### C GARRET #### [facility] [address] [place] [address] Dr. Susannah Hopkins LYMPHM% 4.0 % Critically low 20.5-60.0 [facility] Comment on above: Performed By: #### C GARRET #### [facility] [address] [place] [address] Dr. Susannah Hopkins MCH 30.1 pg Normal 26.7-34.0 [facility] Comment on above: Performed By: #### C BCOCTAVIANO #### [facility] [address] [place] [address] Dr. Susannah Hopkins MCHC 34.1 g/dl Normal 29.9-35.2 [facility] Comment on above: Performed By: #### C BCMAN #### [facility] [address] [place] [address] Dr. Susannah Hopkins MCV 88.3 fL Normal 81.0-99.0 [facility] Comment on above: Performed By: #### C BCMAN #### [facility] [address] [place] [address] Dr. Susannah Hopkins METAMYELOCYTE # Normal [facility] Comment on above: Performed By: #### C GARRET #### [facility] [address] [place] [address] Dr. Susannah Hopkins METAMYELOCYTE % Normal [facility] Comment on above: Performed By: #### C BCOCTAVIANO #### [facility] [address] [place] [address] Dr. Susannah Hopkins MONOM# 1.20 103/ul Critically high 0.30-0.80 [facility] Comment on above: Performed By: #### C BCOCTAVIANO #### [facility] [address] [place] [address] Dr. Susannah Hopkins MONOM% 7.0 % Normal 1.7-12.0 [facility] Comment on above: Performed By: #### C BCMAN #### [facility] [address] [place] [address] Dr. Susannah Hopkins MPV 9.8 fL Normal 9.5-13.5 [facility] Comment on above: Performed By: #### C BCMAN #### [facility] [address] [place] [address] Dr. Susannah Hopkins MYELOCYTE # Normal [facility] Comment on above: Performed By: #### C GARRET #### [facility] [address] [place] [address] Dr. Susannah Hopkins MYELOCYTE % Normal [facility] Comment on above: Performed By: #### C GARRET #### [facility] [address] [place] [address] [address] Susannah Hopkins NRBC Normal [facility] Comment on above: Performed By: #### C GARRET #### [facility] [address] [address] [address] Susannah Hopkins PLT 278 103/ul Normal 150-450 [facility] Comment on above: Performed By: #### C GARRET #### [facility] [address] [place] [address] [address] Susannah Hopkins RBC 5.21 106/ul Normal 4.20-5.40 [facility] Comment on above: Performed By: #### C GARRET #### [facility] [address] [place] [address] Dr. Susannah Hopkins RDW 11.7 % Normal 11.0-15.0 [facility] Comment on above: Performed By: #### C GARRET #### [facility] [address] [place] [address] Dr. Susannah Hopkins SEG # 14.96 103/ul Critically high 1.40-6.50 [facility] Comment on above: Performed By: #### C GARRET #### [facility] [address] [address] [address] Susannah Hopkins SEG % 87.0 % Critically high 43.0-75.0 [facility] Comment on above: Performed By: #### C GARRET #### [facility] [address] [place] [address] Dr. Susannah Hopkins WBC 17.2 103/ul Critically high 4.0-11.0 [facility] Comment on above: Performed By: #### C BCMAN #### [facility] [address] [place] [address] Dr. Susannah Hopkins INFLUENZA A AND B AGon 07-28 INFLUANEGH SEE BELOW Normal [facility] Comment on above: Result Comment: Nega tive for Flu A protein angiten. Infection due to Flu A cannot be ruled out. Flu A angiten in the sample may be below the detection limit of the test. Performed By: #### I NFLUAB #### [facility] [address] [place] [address] Dr. Susannah Hopkins [facility] SEE BELOW Normal [facility] Comment on above: Result Comment: Nega tive for Flu B protein antigen. Infection due to Flu B cannot be ruled out. Flu B antigen in the sample may be below the detection limit of the test. Performed By: #### I NFLUAB #### [facility] [address] [place] [address] Dr. Susannah Hopkins INFLUENZA A AG Negative Normal NEGATIVE SEE COMMENT [facility] Comment on above: Performed By: #### I NFLUAB #### [facility] [address] [place] [address] Dr. Susannah Hopkins INFLUENZA B AG Negative Normal NEGATIVE SEE COMMENT [facility] Comment on above: Performed By: #### I NFLUAB #### [facility] [address] [place] [address] Dr. Susannah Hopkins INTERNAL CONTROLS Within Normal Limits Normal Within Normal Limits [facility] Comment on above: Performed By: #### I NFLUAB #### [facility] [address] [place] [address] Dr. Susannah Hopkins PREG HCG QUALon 07-28-2021 , QUAL Negative Normal NEGATIVE [facility] Comment on above: Performed By: #### P REG #### [facility] [address] [place] [address] Dr. Susannah Hopkins PROF 14(COMP METB)on 022 Albumin [Mass/Vol] 4.4 g/dL Normal 3.4-5.0 [facility] Comment on above: Performed By: #### C MP #### [facility] [address] [place] [address] Dr. Susannah Hopkins Albumin/Globulin [Mass ratio] 1.1 {ratio} Normal [facility] Comment on above: Performed By: #### C MP #### [facility] [address] [place] [address] Dr. Susannah Hopkins ALP [Catalytic activity/Vol] 71 U/L Normal 46-116 [facility] Comment on above: Performed By: #### C MP #### [facility] [address] [address] [address] Susannah Hopkins ALT [Catalytic activity/Vol] 19 U/L Normal 14-59 [facility] Comment on above: Performed By: #### C MP #### [facility] [address] [address] [address] Susannah Hopkins Anion gap [Moles/Vol] 15.1 mmol/L Normal [facility] Comment on above: Performed By: #### C MP #### [facility] [address] [address] [address] Susannah Hopkins AST [Catalytic activity/Vol] 23 U/L Normal 15-37 [facility] Comment on above: Performed By: #### C MP #### [facility] [address] [place] [address] Dr. Susannah Hopkins Bilirubin [Mass/Vol] 0.9 mg/dL Normal 0.2-1.3 [facility] Comment on above: Performed By: #### C MP #### [facility] [address] [address] [address] Susannah Hopkins Calcium [Mass/Vol] 9.5 mg/dL Normal 8.5-10.1 [facility] Comment on above: Performed By: #### C MP #### [facility] [address] [address] [address] Susannah Hopkins Chloride [Moles/Vol] 101 mmol/L Normal 98-107 [facility] Comment on above: Performed By: #### C MP #### [facility] [address] [address] [address] Ssuannah Hopkins CO2 [Moles/Vol] 23.8 mmol/L Normal 22.0-30.0 [facility] Comment on above: Performed By: #### C MP #### [facility] [address] [address] [address] Susannah Hopkins Creatinine [Mass/Vol] 1.04 mg/dL Normal 0.52-1.04 [facility] Comment on above: Performed By: #### C MP #### [facility] [address] [address] [address] Susannah Hopkins EGFR-AF CHINESE >60 Normal >=60 [facility] Comment on above: Performed By: #### C MP #### [facility] [address] [address] [address] Susannah Hopkins EGFR-NON AF CHINESE >60 Normal >=60 [facility] Comment on above: Performed By: #### C MP #### [facility] [address] [address] [address] Susannah Hopkins Globulin (S) [Mass/Vol] 3.9 g/dL Normal [facility] Comment on above: Performed By: #### C MP #### [facility] [address] [address] [address] Susannah Hopkins Glucose [Mass/Vol] 157 mg/dL Critically high 74-106 [facility] Comment on above: Performed By: #### C MP #### [facility] [address] [address] [address] Susannah Hopkins Potassium [Moles/Vol] 3.9 mmol/L Normal 3.4-5.0 [facility] Comment on above: Performed By: #### C MP #### [facility] [address] [address] [address] Susannah Hopkisn Protein [Mass/Vol] 8.3 g/dL Critically high 6.1-8.2 [facility] Comment on above: Performed By: #### C MP #### [facility] [address] [address] [address] Susannah Hopkins Sodium [Moles/Vol] 136 mmol/L Critically low 137-145 [facility] Comment on above: Performed By: #### C MP #### [facility] [address] [address] [address] Susannah Hopkins Urea nitrogen [Mass/Vol] 20.0 mg/dL Critically high 7.0-18.0 [facility] Comment on above: Performed By: #### C MP #### [facility] [address] [address] [address] Susannah Hopkins Urea nitrogen/Creatinine [Mass ratio] 19.2 mg/mg Normal [facility] Comment on above: Performed By: #### C MP #### [facility] [address] [place], [place] [id number] Dr. Susannah Hopkins Vital Signs Date Time Vital Sign Value Performing Clinician Facility 02-08-2025 08:56-0400 Body mass index (BMI) [Ratio] 30.47 kg/m2 Keraradha Li CLIENT SUPPORT ADMINISTRATOR Work Phone: [facility] 02-08-2025 08:56-0400 Body weight 78.02 kg Kera Jen CLIENT SUPPORT ADMINISTRATOR Work Phone: [facility] 02-08-2025 08:56-0400 Diastolic blood pressure 78 mm[Hg] Kera Jen CLIENT SUPPORT ADMINISTRATOR Work Phone: [facility] 02-08-2025 08:56-0400 Systolic blood pressure 130 mm[Hg] Kera Jen CLIENT SUPPORT ADMINISTRATOR Work Phone: [facility] 01-29-2025 08:37-0400 Body mass index (BMI) [Ratio] 29.98 kg/m2 José Blake DO Work Phone: [facility] 01-29-2025 08:37-0400 Body weight 76.77 kg José Blake DO Work Phone: [facility] 01-29-2025 08:37-0400 Diastolic blood pressure 86 mm[Hg] José Blake DO Work Phone: [facility] 01-29-2025 08:37-0400 Systolic blood pressure 128 mm[Hg] José Blake DO Work Phone: [facility] 01-15-2025 09:07-0400 Diastolic blood pressure 72 mm[Hg] Kera Jen CLIENT SUPPORT ADMINISTRATOR Work Phone: [facility] 01-15-2025 09:07-0400 Systolic blood pressure 132 mm[Hg] Kera Jen CLIENT SUPPORT ADMINISTRATOR Work Phone: [facility] 01-15-2025 09:06-0400 Body mass index (BMI) [Ratio] 29.85 kg/m2 Kera Jen CLIENT SUPPORT ADMINISTRATOR Work Phone: [facility] 01-15-2025 09:06-0400 Body weight 76.43 kg Kera Vaughanerly CLIENT SUPPORT ADMINISTRATOR Work Phone: [facility] 01-02-2025 08:26-0400 Body mass index (BMI) [Ratio] 28.96 kg/m2 José Blake DO Work Phone: [facility] 01-02-2025 08:26-0400 Body weight 74.16 kg José Blake DO Work Phone: [facility] 01-02-2025 08:26-0400 Diastolic blood pressure 76 mm[Hg] José Blake DO Work Phone: [facility] 01-02-2025 08:26-0400 Systolic blood pressure 120 mm[Hg] José Blake DO Work Phone: [facility] 12-19-2024 09:04-0400 Body mass index (BMI) [Ratio] 28.7 kg/m2 Nadine DE JESUS Work Phone: [facility] 12-19-2024 09:04-0400 Body weight 73.48 kg Nadine DE JESUS Work Phone: [facility] 12-19-2024 09:04-0400 Diastolic blood pressure 78 mm[Hg] Nadine Galvan PA Work Phone: [facility] 12-19-2024 09:04-0400 Systolic blood pressure 104 mm[Hg] Nadine Galvan PA Work Phone: [facility] 12-05-2024 09:23-0400 Body mass index (BMI) [Ratio] 28.52 kg/m2 José Blake DO Work Phone: [facility] 12-05-2024 09:23-0400 Body weight 73.03 kg José Blake DO Work Phone: [facility] 12-05-2024 09:23-0400 Diastolic blood pressure 76 mm[Hg] José Blake DO Work Phone: [facility] 12-05-2024 09:23-0400 Systolic blood pressure 120 mm[Hg] José Blake DO Work Phone: [facility] 11-22-2024 08:52-0400 Body mass index (BMI) [Ratio] 28.19 kg/m2 Nadine Hawthorneey PA Work Phone: [facility] 11-22-2024 08:52-0400 Body weight 72.18 kg Nadine Hawthorneey PA Work Phone: [facility] 11-22-2024 08:52-0400 Diastolic blood pressure 76 mm[Hg] Nadine Hawthorneey PA Work Phone: [facility] 11-22-2024 08:52-0400 Systolic blood pressure 120 mm[Hg] Nadine Galvan PA Work Phone: [facility] 10-26-2024 12:05-0400 Body mass index (BMI) [Ratio] 26.93 kg/m2 José Blake DO Work Phone: [facility] 10-26-2024 12:05-0400 Body weight 68.95 kg José Blake DO Work Phone: [facility] 10-26-2024 12:05-0400 Diastolic blood pressure 68 mm[Hg] José Blake DO Work Phone: [facility] 10-26-2024 12:05-0400 Systolic blood pressure 120 mm[Hg] José Blake DO Work Phone: [facility] 08-29-2024 14:34-0400 Body mass index (BMI) [Ratio] 25.65 kg/m2 José Blake DO Work Phone: [facility] 08-29-2024 14:34-0400 Body weight 65.68 kg José Blake DO Work Phone: [facility] 08-29-2024 14:34-0400 Diastolic blood pressure 72 mm[Hg] José Blake DO Work Phone: [facility] 08-29-2024 14:34-0400 Systolic blood pressure 120 mm[Hg] José Blake DO Work Phone: [facility] 08-10-2024 14:55-0400 Body height 160 cm [facility] 08-10-2024 14:55-0400 Body mass index (BMI) [Ratio] 25.18 kg/m2 [facility] 08-10-2024 14:55-0400 Body weight 64.47 kg [facility] Nurse [facility] 08-10-2024 14:55-0400 Diastolic blood pressure 76 mm[Hg] [facility] Nurse [facility] 08-10-2024 14:55-0400 Systolic blood pressure 120 mm[Hg] [facility] Nurse [facility] 05-16-2024 12:44-0500 Body weight 65.32 kg Madeleine Bundy MD Work Phone: [facility] 05-16-2024 12:44-0500 Diastolic blood pressure 78 mm[Hg] Madeleine Bundy MD Work Phone: [facility] 05-16-2024 12:44-0500 Systolic blood pressure 120 mm[Hg] Madeleine Bundy MD Work Phone: [facility] 02-08-2024 15:08-0400 Body weight 66.22 kg Madeleine Bundy MD Work Phone: [facility] 02-08-2024 15:08-0400 Diastolic blood pressure 68 mm[Hg] Madeleine Bundy MD Work Phone: [facility] 02-08-2024 15:08-0400 Systolic blood pressure 130 mm[Hg] Madeleine Bundy MD Work Phone: [facility] 05-12-2023 07:30-0500 Body height 158.75 cm Tyrell Stiles Other [employer] Other 05-12-2023 07:30-0500 Body mass index (BMI) [Ratio] 25.41 kg/m2 Tyrell Stiles Other [employer] Other 05-12-2023 07:30-0500 Body weight 64.05 kg Tyrell Stiles Other [employer] Other 05-12-2023 07:30-0500 Diastolic blood pressure 78 mm[Hg] Tyrell Cuellarmer Other [employer] Other 05-12-2023 07:30-0500 Respiratory rate 16 /min Tyrell Stiles Other [employer] Other 05-12-2023 07:30-0500 SaO2% (BldA) [Mass fraction] 98 % Tyrell Cuellarmer Other [employer] Other 05-12-2023 07:30-0500 Systolic blood pressure 122 mm[Hg] Tyrell Cuellarmer Other [employer] Other 02-24-2023 12:30-0400 Body height 158.75 cm Lisandro Wintegras Other [employer] Other 02-24-2023 12:30-0400 Body mass index (BMI) [Ratio] 25.2 kg/m2 Lisandro Wintegras Other [employer] Other 02-24-2023 12:30-0400 Body weight 63.5 kg Lisandro Wintegras Other [employer] Other 02-24-2023 12:30-0400 Diastolic blood pressure 85 mm[Hg] Lisandro Kuns Other [employer] Other 02-24-2023 12:30-0400 Respiratory rate 16 /min Lisandro Wintegras Other [employer] Other 02-24-2023 12:30-0400 SaO2% (BldA) [Mass fraction] 99 % Lisandroteri Martínezapurva Other [employer] Other 02-24-2023 12:30-0400 Systolic blood pressure 140 mm[Hg] Lisandro Buitrago Other [employer] Other Encounters Encounter Date Encounter Type Care Provider Facility Start: 02-08-2025 End: 02-08-2025 Bamboo flowsheet Kera Li CLIENT SUPPORT ADMINISTRATOR Work Phone: [facility] Start: 02-08-2025 End: 02-08-2025 Bamboo flowsheet Kera Li CLIENT SUPPORT ADMINISTRATOR Work Phone: [facility] Start: 02-08-2025 End: 02-08-2025 Clinisync Result Encounter José Blake DO Work Phone: [facility] Unsolicited Start: 02-08-2025 End: 02-08-2025 flow sheet Kera Li CLIENT SUPPORT ADMINISTRATOR Work Phone: [facility] Comment on above: Third trimester preg lindsey ([facility]); 37 weeks gestation of ([facility]) Start: 02-08-2025 End: 02-08-2025 ambulatory KERA LI Not Available Start: 02-01-2025 End: 02-01-2025 Clinisync Result Encounter José Blake DO Work Phone: [facility] Unsolicited Start: 02-01-2025 End: 02-01-2025 Clinisync Result Encounter José Blake DO Work Phone: [facility] Unsolicited Start: 01-29-2025 End: 01-29-2025 Bamboo flowsheet José Blake DO Work Phone: [facility] Start: 01-29-2025 End: 01-29-2025 Bamboo flowsheet José Blake DO Work Phone: [facility] Start: 01-29-2025 End: 01-29-2025 flow sheet José Blake DO Work Phone: [facility] Comment on above: Third trimester preg lindsey ([facility]); 36 weeks gestation of ([facility]) Start: 01-29-2025 End: 01-29-2025 ambulatory JOSÉ BLAKE Not Available Start: 01-25-2025 End: 01-25-2025 [...] 01-15-2025 End: 01-15-2025 Bamboo flowsheet Kera Li CLIENT SUPPORT ADMINISTRATOR Work Phone: [facility] Start: 01-15-2025 End: 01-15-2025 Bamboo flowsheet Kera Jen CLIENT SUPPORT ADMINISTRATOR Work Phone: [facility] Start: 01-15-2025 End: 01-15-2025 flow sheet Kera Jen CLIENT SUPPORT ADMINISTRATOR Work Phone: [facility] Comment on above: Third trimester preg lindsey ([facility]); 34 weeks gestation of ([facility]) Start: 01-15-2025 End: 01-15-2025 ambulatory KERA LI [...] flowsheet José Blake DO Work Phone: [facility] Start: 01-02-2025 End: 01-02-2025 flow sheet José Blake DO Work Phone: [facility] Comment on above: Third trimester preg lindsey ([facility]); 32 weeks gestation of ([facility]); ZULMA (amniotic fluid index) borderline low Start: 01-02-2025 End: 01-02-2025 ambulatory JOSÉ BLAKE Not Available Start: 12-19-2024 End: 12-19-2024 flow sheet Nadine Galvan PA Work Phone: [facility] Comment on above: 30 weeks gestation o f ([facility]); Third trimester ([facility]); HSV infection Start: 12-19-2024 End: 12-19-2024 ambulatory NADINE GALVAN Not Available Start: 12-05-2024 End: 12-05-2024 Bamboo flowsheet José Blake DO Work Phone: [facility] Start: 12-05-2024 End: 12-05-2024 Bamboo flowsheet José Blake DO Work Phone: [facility] Start: 12-05-2024 End: 12-05-2024 flow sheet José Blake DO Work Phone: [facility] Comment on above: Third trimester preg lindsey ([facility]); 28 weeks gestation of ([facility]); HSV infection; size inconsistent with dates ([facility]) Start: 12-05-2024 End: 12-05-2024 ambulatory JOSÉ BLAKE [...] on above: 26 weeks gestation o f ([facility]); Second trimester ([facility]); Elevated glucose tolerance test Start: 11-22-2024 End: 11-22-2024 ambulatory NADINE GALVAN Not Available Start: 10-26-2024 End: 10-26-2024 ambulatory JOSÉ BLAKE Not Available Start: 10-26-2024 End: 10-26-2024 flow sheet José Blake DO Work Phone: [facility] Comment on above: Second trimester pre gnancy ([facility]); 22 weeks gestation of ([facility]); Diabetes mellitus screening Start: 10-26-2024 End: [...] Available Start: 03-30-2024 End: 03-30-2024 ambulatory Zita regla Facility:[facility] Start: 02-08-2024 End: 02-08-2024 Patient encounter status Madeleine Bundy MD Work Phone: [facility] Start: 02-08-2024 End: 02-08-2024 Periodic preventive med est patient 18-39 yrs Madeleine Bundy MD Work Phone: [facility] Comment on above: Amenorrhea (Primary Dx); Screening for malignant neoplasm of cervix; Encounter for gynecological examination without abnormal finding; Encounter for surveillance of vaginal ring hormonal contraceptive device; Missed menses Start: 01-24-2024 End: 01-24-2024 ambulatory Facility:[facility] Start: 05-12-2023 End: 05-12-2023 ambulatory Tyrell Stiles Other [employer] Other Start: 05-12-2023 Office outpatient vi sit 15 minutes Tyrell Stiles [facility] Start: 03-02-2023 End: 03-02-2023 ambulatory Lisandro Buitrago Facility:[facility] Start: 03-02-2023 End: 03-02-2023 ambulatory DO Lisandroteri Buitrago Work Phone: [facility] Work Phone: Start: 03-02-2023 End: 03-02-2023 Patient encounter procedure DO Lisandro Kuns Work Phone: [facility] Start: 02-24-2023 End: 02-24-2023 ambulatory Lisandroteri Buitrago Other [employer] Other Start: 02-24-2023 Encounter for genera l adult medical examination without abnormal findings Lisandro Buitrago [facility] Start: 02-24-2023 Office outpatient ne w 30 minutes Lisandro Buitrago [facility] Start: 07-28-2021 End: 07-28-[address] JANES GARCIA Facility:[facility] Procedures Date Procedure Procedure Detail Performing Clinician Start: 02-08-2025 OB BPP W NON-STRESS José Blake DO Work Phone: Start: 02-08-2025 Urnls dip stick/tabl et rgnt non-auto w/o micrscp Kera Li CLIENT SUPPORT ADMINISTRATOR Work Phone: Start: 02-01-2025 US OB BPP W NON-STRESS José Blake DO Work Phone: Start: 01-29-2025 Urnls dip stick/tabl et rgnt non-auto w/o micrscp José Blake DO Work Phone: Start: 01-25-2025 OB BPP W NON-STRESS José Blake DO Work Phone: Start: 01-18-2025 OB BPP W NON-STRESS José Blake DO Work Phone: Start: 01-15-2025 Urnls dip stick/tabl et rgnt non-auto w/o micrscp Kera Jen CLIENT SUPPORT ADMINISTRATOR Work Phone: Start: 01-08-2025 OB BPP W NON-STRESS José Blake DO Work Phone: Start: 01-04-2025 OB BPP W NON-STRESS José Blake DO [...] Start: 02-08-2024 Urine test visual color cmprsn meths Madeleine Bundy MD Work Phone: Start: 02-08-2024 Cytp cerv/vag auto t hin layer prep mnl screen José Blake DO Work Phone: Start: 03-02-2023 Plain chest X-ray DO Br ett Minna Work Phone: Start: 03-02-2023 Plain X-ray of left shoulder DO Lisandro Minna Work Phone: Plan of Treatment Date Care Activity Detail Author Start: 02-15-2025 End: 02-15-2025 Patient encounter procedure 02/15/2025 8:50 AM EDT Routine [facility] [address] [place] [address] Kera Li, CLIENT SUPPORT ADMINISTRATOR [address] [place] [phone] [facility] Start: 02-08-2025 End: 02-08-2025 Patient encounter procedure [facility] Comment on above: Arrived Start: 01-29-2025 End: 01-29-2026 CULTURE, GROUP B STREP WITH SUSCEPTIBLITY CULTURE, GROUP B STREP WITH SUSCEPTIBLITY Lab Routine Third trimester ([facility]) Expected: 01/29/2025, Expires: 01/29/2026 [facility] Work Phone: Comment on above: Expected: 01/29/2025 , Expires: 01/29/2026 Start: 01-29-2025 End: 01-29-2025 Patient encounter procedure [facility] Comment on above: Third trimester preg lindsey ([facility]) Start: 01-16-2025 End: 01-16-2025 Patient encounter procedure 01/16/2025 8:50 AM EDT Routine [facility] [address] [place] [phone] Nadine Galvan PA [address] [facility] [place] [address] [facility] Start: 01-15-2025 End: 01-15-2025 Patient encounter procedure [facility] Comment on above: Arrived Start: 01-08-2025 Influenza vaccination [facility] Start: 01-02-2025 End: 07-05-2025 US biophysical [...] AM EDT Routine [facility] [address] [facility] [facility] [place] [phone] Nadine Galvan PA [address] [facility] [place] [address] [facility] Start: 12-19-2024 End: 12-19-2024 Professional / ancillary services management 12/19/2024 8:00 AM EDT Ancillary Procedure [facility] [address] [place] [place] [address] [facility] Start: 12-05-2024 End: 04-07-2025 US for US OB follow up transabdominal approach Imaging Routine size inconsistent with dates ([facility]) Expected: 12/05/2024, Expires: 04/07/2025 [facility] Work [...] AM EDT Routine [facility] [address] [place] [place] [phone] Nadine Galvan PA [address] [facility] [place], [place] [id number] [facility] Start: 10-26-2024 End: 10-26-2025 [...] procedure 09/27/2024 3:30 PM EDT Routine [facility] [address] [place] [place] [phone] Nadine Galvan PA [address] [facility] [place] [address] [facility] Start: 08-29-2024 End: 08-29-2024 Patient encounter procedure [facility] Comment on above: Arrived Start: 07-27-2024 End: 07-27-2024 ambulatory 07/27/2024 10:30 AM EDT Initial [facility] [address] [place] [phone] Madeleine Bundy MD [address] [place] [address] [facility] Start: 07-17-2024 End: 07-17-2024 Patient encounter procedure 07/17/2024 12:30 PM EDT Office Visit [facility] [address] [place] [phone] Madeleine Bundy MD [address] [place], [place] [phone] [facility] [facility] Start: 07-17-2024 End: 07-17-2024 Professional / ancillary services management 07/17/2024 8:30 AM EDT Ancillary Procedure [facility] [address] [place] [address] [facility] Start: 07-11-2024 End: 07-11-2025 Bacteria identified in Urine by Culture Urine culture Microbiology Routine Encounter for supervision of normal first in first trimester Expected: 07/11/2024, Expires: 07/11/2025 [facility] Comment on above: Expected: 07/11/2024 , Expires: 07/11/2025 Start: 07-11-2024 End: 07-11-2025 BEACON CARRIER SCREEN;14 GENES BEACON CARRIER SCREEN;14 GENES Lab Routine Screening for genetic disease carrier status Expected: 07/11/2024 (Approximate), Expires: 07/11/2025 [facility] Comment on above: Expected: 07/11/2024 (Approximate), Expires: 07/11/2025 Start: 07-11-2024 End: 07-11-2025 Blood type and Indirect antibody screen panel - Blood Type and screen Lab Routine Encounter for supervision of normal first in first trimester Expected: 07/11/2024, Expires: 07/11/2025 [facility] Comment on above: Expected: 07/11/2024 , Expires: 07/11/2025 Start: 07-11-2024 End: 07-11-2025 CBC W Auto Differential panel - Blood CBC and differential Lab Routine Encounter for supervision of normal first in first trimester Expected: 07/11/2024, Expires: 07/11/2025 [facility] Comment on above: Expected: 07/11/2024 , Expires: 07/11/2025 Start: 07-11-2024 End: 07-11-2025 DRUG SCREEN 17 W/CONF, UR DRUG SCREEN 17 W/CONF, UR Lab Routine Encounter for drug screening Expected: 07/11/2024, Expires: 07/11/2025 [facility] Comment on above: [...] in first trimester Expected: 07/11/2024, Expires: 07/11/2025 [facility] Comment on above: Expected: 07/11/2024 , Expires: 07/11/2025 Start: 07-11-2024 End: 07-11-2025 HIV-1/HIV-2 antigen/antibody combination immunoassay HIV-1 and HIV-2 antibodies Lab Routine Encounter for supervision of normal first in first trimester Expected: 07/11/2024, Expires: 07/11/2025 [facility] Comment on above: Expected: 07/11/2024 , Expires: 07/11/2025 Start: 07-11-2024 End: 07-11-2025 [id number] PLUS Core+SCA [id number] PLUS Core+SCA Lab Routine Encounter for screening for chromosomal anomalies Expected: 07/11/2024 (Approximate), Expires: 07/11/2025 [facility] Comment on above: Expected: 07/11/2024 (Approximate), Expires: 07/11/2025 Start: 07-11-2024 End: 07-11-2025 Reagin Ab [Presence] in Serum by RPR RPR Lab Routine Encounter for supervision of normal first in first trimester Expected: 07/11/2024, Expires: 07/11/2025 [facility] Comment on above: Expected: 07/11/2024 , Expires: 07/11/2025 Start: 07-11-2024 End: 07-11-2025 Rubella antibody, IgG Rubella antibody, IgG Lab Routine Encounter for supervision of normal first in first trimester Expected: 07/11/2024, Expires: 07/11/2025 [facility] Comment on above: Expected: 07/11/2024 , Expires: 07/11/2025 Start: 07-11-2024 End: 07-11-2025 Urinalysis complete panel - Urine Urinalysis with microscopic Lab Routine Encounter for supervision of normal first in first trimester Expected: 07/11/2024, Expires: 07/11/2025 [facility] Work Phone: Comment on above: Expected: 07/11/2024 , Expires: 07/11/2025 Start: 05-16-2024 End: 05-16-2025 Cortisol Cortisol Lab Routine Hormone imbalance Expected: 05/16/2024, Expires: 05/16/2025 [facility] Comment on above: Expected: 05/16/2024 , Expires: 05/16/2025 Start: 05-16-2024 End: 05-16-2025 DHEA-sulfate DHEA-sulfate Lab Routine Hormone imbalance Expected: 05/16/2024, Expires: 05/16/2025 [facility] Comment on above: Expected: 05/16/2024 , Expires: 05/16/2025 Start: 05-16-2024 End: 05-16-2025 Estradiol Estradiol Lab Routine Hormone imbalance Expected: 05/16/2024, Expires: 05/16/2025 [facility] Comment on above: Expected: 05/16/2024 , Expires: 05/16/2025 Start: 05-16-2024 End: 05-16-2025 Estrone Estrone Lab Routine Hormone imbalance Expected: 05/16/2024, Expires: 05/16/2025 [facility] Comment on above: Expected: 05/16/2024 , Expires: 05/16/2025 Start: 05-16-2024 End: 05-16-2025 Follicle stimulating hormone Follicle stimulating hormone Lab Routine Hormone imbalance Thyroid disorder screen Expected: 05/16/2024, Expires: 05/16/2025 [facility] Comment on above: Expected: 05/16/2024 , Expires: 05/16/2025 Start: 05-16-2024 End: 05-16-2025 Insulin, fasting Insulin, fasting Lab Routine Amenorrhea Missed menses Hormone imbalance Expected: 05/16/2024, Expires: 05/16/2025 [facility] Comment on above: Expected: 05/16/2024 , Expires: 05/16/2025 Start: 05-16-2024 End: 05-16-2025 Luteinizing hormone Luteinizing hormone Lab Routine Hormone imbalance Thyroid disorder screen Expected: 05/16/2024, Expires: 05/16/2025 [facility] Comment on above: Expected: 05/16/2024 , Expires: 05/16/2025 Start: 05-16-2024 End: 05-16-2025 Progesterone Progesterone Lab Routine Hormone imbalance Expected: 05/16/2024, Expires: 05/16/2025 [facility] Comment on above: Expected: 05/16/2024 , Expires: 05/16/2025 Start: 05-16-2024 End: 05-16-2025 Sex hormone binding globulin Sex hormone binding globulin Lab Routine Hormone imbalance Expected: 05/16/2024, Expires: 05/16/2025 [facility] Comment on above: Expected: 05/16/2024 , Expires: 05/16/2025 Start: 05-16-2024 End: 05-16-2025 Testosterone, free, total Testosterone, free, total Lab Routine Hormone imbalance Expected: 05/16/2024, Expires: 05/16/2025 [facility] Comment on above: Expected: 05/16/2024 , Expires: 05/16/2025 Start: 05-16-2024 End: 05-16-2025 Thyrotropin [Units/volume] in Serum or Plasma TSH Lab Routine Hormone imbalance Thyroid disorder screen Expected: 05/16/2024, Expires: 05/16/2025 [facility] Work Phone: Comment on above: Expected: 05/16/2024 , Expires: 05/16/2025 Start: 05-16-2024 End: 05-16-2025 Vitamin D 1,25 dihydroxy Vitamin D 1,25 dihydroxy Lab Routine Hormone imbalance Expected: 05/16/2024, Expires: 05/16/2025 [facility] Comment on above: Expected: 05/16/2024 , Expires: 05/16/2025 Start: 05-16-2024 End: 05-16-2024 Patient encounter procedure 05/16/2024 12:30 PM EST Office Visit [facility] OB [address] [place] [id number] Madeleine Bundy MD [address] [place] [address] [facility] Start: 02-08-2024 End: 02-07-2025 Follicle stimulating hormone Follicle stimulating hormone Lab Routine Amenorrhea Expected: 02/08/2024 (Approximate), Expires: 02/07/2025 [facility] Comment on above: Expected: 02/08/2024 (Approximate), Expires: 02/07/2025 Start: 01-09-2024 Influenza vaccination Influenza Vacc ine (#1) [facility] hCG, qualitative hCG, qualitativ e Lab Routine Amenorrhea Ordered: 02/08/2024 [facility] Comment on above: Ordered: 02/08/2024 Hemoglobin A1c/Hemoglobin.total in Blood Hemoglobin A1c Lab Routine with uncertain dates, antepartum Ordered: 08/10/2024 [facility] Work Phone: Comment on above: Ordered: 08/10/2024 Luteinizing hormone Luteinizing hormone Lab Routine Amenorrhea Ordered: 02/08/2024 [facility] Comment on above: Ordered: 02/08/2024 Progesterone Progesterone Lab Routine Amenorrhea Ordered: 02/08/2024 [facility] Comment on above: Ordered: 02/08/2024 SENDOUT TEST MISCELLANEOUS [facility] SENDOUT TEST MISCELLANEOUS [facility] Lab Routine Screening for malignant neoplasm of cervix Encounter for gynecological examination without abnormal finding Ordered: 02/08/2024 [facility] Work Phone: Comment on above: Ordered: 02/08/2024 Testosterone, free, total Testosterone, free, total Lab Routine Amenorrhea Ordered: 02/08/2024 [facility] Comment on above: Ordered: 02/08/2024 Immunizations Immunization Date Immunization Notes Care Provider Fa cility 09-25-2020 COVID-19 Vaccine Moderna - Documentation Purposes Only Lisandro Buitrago Other [employer] Other 08-21-2020 COVID-19 Vaccine Moderna - Documentation Purposes Only Lisandro Buitrago Other [employer] Other Payers Date Payer Category Payer Unknown [id number] 2023 Private Health Insurance [id number] 2023 Private Health Insurance [id number] 2023 Unknown [id number] 2. [id number] 1995 Unknown [id number] 2.16.84 0.1.762819.3.579.2.593 1995 Unknown [id number] 2.16.8 40.1.857948.3.579.2.718 1995 Unknown [id number] 2.16.8 40.1.043998.3.579.2.1259 1995 Unknown [id number] 2.16.8 40.1.337054.3.579.2.1259 1995 Unknown [id number] 2.16.8 40.1.201708.3.579.2.1259 1995 Unknown [id number] 2.16.8 40.1.793764.3.579.2.1259 1995 Unknown [id number] 2.16.8 40.1.212151.3.579.2.1259 1995 Unknown [id number] 2.16.8 40.1.947393.3.579.2.1259 1995 Unknown [id number] 2.16.8 40.1.072360.3.579.2.1259 1995 Unknown [id number] 2.16.8 40.1.917312.3.579.2.1259 1995 Unknown [id number] 2.16.8 40.1.552123.3.579.2.1259 1995 Unknown [id number] 2.16.8 40.1.451340.3.579.2.1259 1995 Unknown [id number] 2.16.84 0.1.498892.3.579.2.1259 1995 Unknown [id number] 2.16.84 0.1.861988.3.579.2.1259 1995 Unknown [id number] 2.16.84 0.1.153239.3.579.2.1259 1995 Unknown [id number] 2.16.84 0.1.682341.3.579.2.1259 1995 Unknown [id number] 2.16.84 0.1.055003.3.579.2.1259 1995 Unknown [id number] 2.16.84 0.1.954809.3.579.2.1259 1959 Self-pay Unknown [id number] Unknown [id number] 2.16.8 40.1.126055.3.579.2.531 Social History Date Type Detail Facility Start: 02-08-2024 End: 05-16-2024 Sex Assigned At [facility] [employer] Other Start: 1995 Sex Assigned At Female F [facility] Start: 05-15-2023 Tobacco smoking stat [facility] Never smoked tobacco [facility] [...] file [facility] Start: 05-16-2024 End: 02-08-2025 Alcoholic beverage intake Ex-drinker (finding) [facility] Start: 07-11-2024 Alcohol Comment caffeine intake: rar e [facility] Start: 05-23-2024 [facility] Go[facility] Date Patient Goal Desired Activity /State Personal health goal Clinical Notes 02-24-2023 to 02-08-2025 Kera Li, LIBBY - 02/08/2025 8:40 AM Polo Li, LIBBY - 01/29/2025 8:30 AM Justine Ambriz, SENIOR BIOSTATISTICIAN/GROUP LEADER - 01/15/2025 8:50 AM Elton Winnieapurva, SENIOR BIOSTATISTICIAN/GROUP LEADER - 01/02/2025 8:30 AM EDTPatient Instructions Note Date & Type Note Facility 02-08-2025 History of Presen t illness Narrative Reason [...] nursing note reviewed. Exam conducted with a slaughterer religious ritual present. Vitals: Estimated body mass index is 29.98 kg/m as calculated from the following: Height as of 08/10/24: 5' 3 . Weight as of 01/29/25: 169 lb 4 oz. BP: Patient's last menstrual period was 05/09/2024 (exact date). ASSESSMENT & PLAN ICD-10-CM 1. Third trimester ([facility]) Z34.93 POCT urinalysis dipstick manually resulted 2. 37 weeks gestation of ([facility]) Z3A.37 Return OB: Patient presents today for a routine obstetrics appointment. Patient is currently 37w3d . Patient states she is doing well but has complaints of being tired due to current . Patient has verbalizes frequent movement. labor precautions was discussed/given and patient was instructed to perform kick counts three times a day. Pt declined a cervical check at this visit. Orders Placed This Encounter Procedures POCT urinalysis dipstick manually resulted Follow Up: Patient is to return to office in 1 week for routine OB appointment. Documented by Azeb Gonzalez MA on behalf of: Kera Li NP documented in this encounter [facility] 01-29-2025 History of Presen t illness Narrative [...] nursing note reviewed. Exam conducted with a slaughterer religious ritual present. Vitals: Estimated body mass index is 29.98 kg/m as calculated from the following: Height as of 08/10/24: 5' 3 . Weight as of this encounter: 169 lb 4 oz. BP: 128/86 Patient's last menstrual period was 05/09/2024 (exact date). ASSESSMENT & PLAN ICD-10-CM 1. Third trimester ([facility]) Z34.93 POCT urinalysis dipstick manually resulted CULTURE, GROUP B STREP WITH SUSCEPTIBLITY CULTURE, GROUP B STREP WITH SUSCEPTIBLITY 2. 36 weeks gestation of ([facility]) Z3A.36 Return OB: Patient presents today for [...] José Lozano DO documented in this encounter [facility] 01-15-2025 History of Presen t illness [...] nursing note reviewed. Exam conducted with a slaughterer religious ritual present. Vitals: Estimated body mass index is 29.85 kg/m as calculated from the following: Height as of 08/10/24: 5' 3 . Weight as of this encounter: 168 lb 8 oz. BP: 132/72 Patient's last menstrual period was 05/09/2024 (exact date). ASSESSMENT & PLAN ICD-10-CM 1. Third trimester ([facility]) Z34.93 POCT urinalysis dipstick manually resulted 2. 34 weeks gestation of ([facility]) Z3A.34 Patient presents today for a [...] Kera Li NP documented in this encounter [facility] 01-02-2025 History of Presen t illness [...] nursing note reviewed. Exam conducted with a slaughterer religious ritual present. Vitals: Estimated body mass index is 28.96 kg/m as calculated from the following: Height as of 08/10/24: 5' 3 . Weight as of this encounter: 163 lb 8 oz. BP: 120/76 Patient's last menstrual period was 05/09/2024 (exact date). ASSESSMENT & PLAN ICD-10-CM 1. Third trimester ([facility]) Z34.93 POCT urinalysis dipstick manually resulted 2. 32 weeks gestation of ([facility]) Z3A.32 Return OB: Patient presents [...] José Lozano DO documented in this encounter [facility] 12-19-2024 History of Presen t illness [...] PLAN ICD-10-CM 1. 30 weeks gestation of ([facility]) Z3A.30 POCT urinalysis dipstick manually resulted 2. Third trimester ([facility]) Z34.93 POCT urinalysis dipstick manually [...] of: LIZA Zaldivar documented in this encounter [facility] 12-05-2024 History of Presen t illness [...] nursing note reviewed. Exam conducted with a slaughterer religious ritual present. Vitals: Estimated body mass index is 28.52 kg/m as calculated from the following: Height as of 08/10/24: 5' 3 . Weight as of this encounter: 161 lb. BP: 120/76 Patient's last menstrual period was 05/09/2024 (exact date). ASSESSMENT & PLAN ICD-10-CM 1. Third trimester ([facility]) Z34.93 CANCELED: POCT urinalysis dipstick manually resulted 2. 28 weeks gestation of ([facility]) Z3A.28 3. 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 size inconsistent with dates ([facility]) O26.849 US OB follow up [...] José Lozano DO documented in this encounter [facility] 11-22-2024 History of Presen t illness [...] PLAN ICD-10-CM 1. 26 weeks gestation of ([facility]) Z3A.26 POCT urinalysis dipstick manually resulted 2. Second trimester ([facility]) Z34.92 POCT urinalysis dipstick manually [...] of: LIZA Zaldivar documented in this encounter [facility] 10-26-2024 History of Presen t illness [...] ASSESSMENT & PLAN ICD-10-CM 1. Second trimester ([facility]) Z34.92 POCT urinalysis dipstick manually resulted 2. 22 weeks gestation of ([facility]) Z3A.22 3. Diabetes mellitus screening [...] José Lozano DO documented in this encounter [facility] 08-29-2024 History of Presen t illness [...] nursing note reviewed. Exam conducted with a slaughterer religious ritual present. Vitals: Estimated body mass index is [...] or undercooked meat, and stay away from [facility]. Patient has been consulted regarding any further do's and don'ts of . Patient voiced understanding and all questions and concerns were answered. Orders Placed This Encounter Procedures POCT urinalysis dipstick manually resulted Follow Up: Patient is to return in 4 weeks for routine OB appointment. Documented by Zita Borrego LPN on behalf of: José Loazno DO documented in this encounter [facility] 08-10-2024 History of Presen t illness [...] or undercooked meat, and stay away from [facility]. Patient has also been advised to not change litter boxes and eat 6 small meals a day. Patient has been consulted regarding the do's and don'ts of . Patient was given labs and all questions and concerns were answered. Patient was given [place] labs to be completed with Hgb A1C. Follow Up: Patient is to return in 4 weeks for routine OB appointment. Follow Up: Patient is to have labs drawn at directed and return to office for initial OB appointment with provider. Patient may call office as needed with any concerns or questions. Nurse Visit Completed by: Domenica Jacinto LPN documented in this encounter [facility] 07-11-2024 History of Presen t illness [...] 07/11/2024 10:03 AM documented in this encounter [facility] 05-16-2024 History of Presen t illness Narrative Images from the original note were not included. Madeleine Bundy MD Obstetrics and Gynecology Patient: Alondra Beaver : 1995 (28 y.o.) Exam Date: 05/16/2024 Reason for Visit - Chief Complaint Patient presents with Follow-up Follow up for Amenorrhea, missed menses, and family planning. Stopped [employer] in 10/2023. 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 Exam conducted with a slaughterer religious ritual present. Assessment/Plan ICD-10-CM 1. Amenorrhea N91.2 2. [...] Madeleine Bundy MD documented in this encounter [facility] 05-16-2024 Instructions Madeleine Bundy MD - 05/16/2024 [...] routine infertility test. documented in this encounter [facility] 02-08-2024 History of Presen t illness [...] Return 1 year Electronically signed by Madeleine Budny MD documented in this encounter [facility] 05-12-2023 Evaluation note Encounter Date Diagnosis [...] and trigger point injections can be done. [employer] Other 10-18-2023 Evaluation note* Encounter Date Diagnosis Assessment Notes Treatment Notes Treatment Clinical Notes Feb, Encounter to establish care (ICD-10 - Z76.89) Patient appears to be in good health upon examination. She is here to establish care for annual physcial for her employment. 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 Feb, Wellness examination (ICD-10 - Z00.00) [...] Stress test ordered to rule out abnormalities. [employer] Other Evaluation noteNo assessment information available [facility] Work Phone: Evaluation note* Diagnosis Amenorrhea- [...] note* Diagnosis Third trimester ([facility]-H[facility]) state, incidental 37 weeks gestation of ([facility]) [facility] - Reported* Type Description Date Medical History Left elbow dislocation 2011 [employer] Other Summary Purpose Family History No Family [...] DATE CREATED AUTHOR AUTHOR'S ORGANIZ ATION 05/24/2023 [facility] DATE CREATED AUTHOR AUTHOR'S ORGANIZ ATION 02/20/2024 [facility] DATE CREATED AUTHOR AUTHOR'S ORGANIZ ATION 01/27/2025 [facility] DATE CREATED AUTHOR AUTHOR'S ORGANIZ ATION 02/12/2025 [facility] EPIC REASON FOR VISIT (unrecogniz ed section and content) Reason Comments Gynecologic Exam Reason Comments Follow-up Reason Comments Initial Visit Nurse Visit Reason Comments Amenorrhea Reason Comments Routine Visit Care Teams (unrecognized sec tion and content) Team Status: Inactive Member Role Status Dates Lisandro Buitrago DO Attending Provider Active Machine Feeder Relationship Specialty Start Date End Date Unallocated, Torrey Horn MD [facility] [place] [address] [address] PCP - General Family Medicine 06/23/23 Machine Feeder Relationship Specialty Start Date End Date Unallocated, Torrey Horn MD [address] [place] [address] [place] [address] PCP - General Family Medicine 06/23/23 Machine Feeder Relationship Specialty Start Date End Date Unallocated, Torrey Horn MD [facility] [place] [address] PCP - General Family Medicine 06/23/23 Machine Feeder Relationship Specialty Start Date End Date Unallocated, Torrey Horn MD [facility] [place] [address] PCP - General Family Medicine 06/23/23 Machine Feeder Relationship Specialty Start Date End Date Unallocated, Torrey Horn MD [address] [place] [address] [place] [address] PCP - General Family Medicine 06/23/23 Machine Feeder Relationship Specialty Start Date End Date Unallocated, Torrey Horn MD [address] [place] [address] [place] [address] PCP - General Family Medicine 06/23/23 Machine Feeder Relationship Specialty Start Date End Date Unallocated, Torrey Horn MD [address] [place] [address] PCP - General Family Medicine 06/23/23 Machine Feeder Relationship Specialty Start Date End Date Unallocated, Torrey Horn MD [address] [place] [address] PCP - General Family Medicine 06/23/23 Machine Feeder Relationship Specialty Start Date End Date Unallocated, Torrey Horn MD [address] [place] [address] PCP - General Family Medicine 06/23/23 Machine Feeder Relationship Specialty Start Date End Date Unallocated, Torrey Horn MD [address] [place] [address] PCP - General Family Medicine 06/23/23 Machine Feeder Relationship Specialty Start Date End Date Unallocated, Torrey Horn MD [address] [place] [address] PCP - General Family Medicine 06/23/23 Goals [...] BE BASED ON THE PRIMARY CLINICAL RECORDS. [employer] [facility]. provides no warranty or guarantee of the accuracy or completeness of information in this document.
[2025-02-15 07:38] VITALS: BP 135/83; PULSE 100
== END 2025-02-15 08:01 | disposition home or self-care (01) ==
LOC: US 07:12 → FBC 07:13
PROVIDERS: PCP Family Medicine; Visit Provider Obstetrics & Gynecology
DX: O28.8 Other abnormal findings on antenatal screening of mother (principal); Z3A.38 38 weeks gestation of pregnancy
CPT/HCPCS: 76818

== ENCOUNTER 2025-02-22 07:04 | Outpatient (OUT) | payer OTHER, SELFPAY ==
--- NOTE | 2025-02-22 | US_ITS ---
[address] [address] Patient Name: ALONDRA BEAVER MRN: [id number] date: 1995 Sex: F Assigned Patient Location: Current Patient Location: [facility] Accession/Order Number: [id number] Exam Date: 02/22/2025 07:03 Report Date: 02/22/2025 08:02 At the request of: ROCIO VINES DO Procedure: US OB BPP w non-stress BIOPHYSICAL PROFILE: CLINICAL INFORMATION: OLIGOHYDRAMNIOS COMPARISON: 02/15/2025. There is a single live intrauterine gestation in cephalic presentation. The reported gestational age is 39 weeks 3 days. The heart rate measures 139 beats per minute. FINDINGS: TONE: 1 or more episodes of activity extension and flexion of extremity or opening and closing of the hand [Y] 2/2 GROSS BODY MOVEMENTS: 3 or more discrete body or limb movements [Y] 2/2 BREATHING MOVEMENTS: 1 or more episodes of breathing lasting at least 30 seconds [Y] 2/2 ZULMA: A single deepest vertical pocket of amniotic fluid greater than 2 cm [Y] 2/2 ZULMA: 8.3 cm. The 5th percentile 7.2 cm Total score: 8/8 US/ OB BPP w non-stress IMPRESSION: NORMAL BIOPHYSICAL PROFILE. BORDERLINE OLIGOHYDRAMNIOS. Impression dictated by: Zita Lu M.D. 02/22/2025 8:02 AM Dictation Location: [place] [address] Electronically authenticated by: [id number] Y Date: 02/22/2025 08:02
--- OUTSIDE RECORDS SUMMARY | 2025-02-22 07:06 | XMS_ITS | CCD ---
Author Organization [facility] Care Team Providers Care Rehabilitation Aide Name Role Phone DR JANES GARCIA Admitting Unavailable JOSE, DR JANES Escobar Attending Unavailable REQUEST, NONE LISTED Primary Care Unavaila verna GARCIA, DR JANES Escobar Consulting Unavailable Lisandro Buitrago Unavailable DO Lisandro Buitrago Attending Provider Tyrell Stiles Unavailable Lisandro Buitrago Attending Unavailable Lisandro Buitrago Admitting Unavailable Unallocated MD, Noms Provider Primary Care Provi ulysses JOSÉ LOZANO Attending Unavailable GALILEO, NADINE Attending Unavailable BLAKE, JOSÉ Attending Unavailable GALILEO, NADINE Attending Unavailable BLAKE, JOSÉ Attending Unavailable BLAKE, JOSÉ Referring Unavailable NADINE GALVAN Attending Unavailable BLAKE, JOSÉ Attending Unavailable JEN, KERA Attending Unavailable BLAKE, JOSÉ Attending Unavailable MADELEINE BUNDY Attending Unavailable JEN, KERA Attending Unavailable JEN, KERA Attending Unavailable Zita Alanis Attending Unavailable Zita [...] 08/21/2024 08/29/2024 Discontinued 21 day ethinyl estradiol 0.441493 mg/hr / etonogestrel 0.005 mg/hr vaginal system [...] [37 weeks gestation of ] 02-08-2025 Episodic Residual codes; unclassified (2 sources) Gestation period, 38 weeks; Translations: [38 weeks gestation of ] 02-15-2025 Episodic Sprains and strains (1 source) Strain of muscle, fascia and tendon of lower back, initial encounter Episodic Unclassified (1 source) Pain in left shoulder; Translations: [Pain in left shoulder] Onset: 3 Unclassified (20 sources) OB Reminders Onset: 5 07-11-2024 Viral infection (4 sources) Herpes simplex; 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 Ordering Physician: José Lozano D.O. Date of Service: 02/15/25 Procedure(s): US OB BPP w non-stress Accession Number(s): [id number] cc: José Lozano D.O.; Zita Alanis M.D. [place] [id number] Patient Name: ALONDRA BEAVER MRN: [facility]:[id number] date: 1995 Sex: F Assigned Patient Location: [facility] Current Patient Location: Accession/Order Number: [id number] Exam Date: 02/15/2025 07:15 Report Date: 02/15/2025 08:08 At the request of: JOSÉ LOZANO DO Procedure: US OB BPP w non-stress BIOPHYSICAL PROFILE: CLINICAL INFORMATION: OLIGOHYDRAMNIOS O28.8 COMPARISON: 02/08/2025 There is a single live intrauterine gestation in cephalic presentation. The reported gestational age is 38 weeks 3 days. The heart rate measures 157 beats per minute. FINDINGS: TONE: 1 or [...] greater than 2 cm [Y] 2/2 ZULMA: 10.1 cm.) This is in low-normal range. Total score: 12/15 US/US OB BPP w non-stress IMPRESSION: NORMAL BIOPHYSICAL PROFILE Impression dictated by: Zita Lu M.D. 02/15/2025 8:08 AM Dictation Location: [place] [address] Electronically authenticated by: [id number] Y Date: 02/15/2025 08:08 Dictated By: Zita Lu M.D. Signed By: 02/15/25810 DD/ 7 TD/TT: Birthing Nurse: [facility] Radiology, Radiologist, - 02/15/2025 [place] [address] Ultrasound Report Signed Patient: ALONDRA BEAVER MR#: [id number] : 1995 Acct:[id number] Age/Sex: 29 / F ADM Date: 02/15/25 Loc: US Attending Dr: José Lozano D.O. Ordering Physician: José Lozano D.O. Date of Service: 02/15/25 Procedure(s): US OB BPP w non-stress Accession Number(s): [id number] cc: José Lozano D.O.; Zita Alanis M.D. [place] [address] Patient Name: AOLNDRA BEAVER MRN: [facility]:[id number] date: 1995 Sex: F Assigned Patient Location: [facility] Current Patient Location: Accession/Order Number: [id number] Exam Date: 02/15/2025 07:15 Report Date: 02/15/2025 08:08 At the request of: JOSÉ LOZANO DO Procedure: US OB BPP w non-stress BIOPHYSICAL PROFILE: CLINICAL INFORMATION: OLIGOHYDRAMNIOS O28.8 COMPARISON: 02/08/2025 There is a single live intrauterine gestation in cephalic presentation. The reported gestational age is 38 weeks 3 days. The heart rate measures 157 beats per minute. FINDINGS: TONE: 1 or [...] greater than 2 cm [Y] 2/2 ZULMA: 10.1 cm.) This is in low-normal range. Total score: 8/8 US/US OB BPP w non-stress IMPRESSION: NORMAL BIOPHYSICAL PROFILE Impression dictated by: Zita Lu M.D. 02/15/2025 8:08 AM Dictation Location: [place] [address] Electronically authenticated by: [id number] Y Date: 02/15/2025 08:08 Dictated By: Zita Lu M.D. Signed By: 02/15/25810 DD/ 7 TD/TT: Birthing Nurse: [facility] Radiology Study observation (narrative) [facility] OB BPP W NON-STRESS Ordered By: Radiologist Radiology on 02-15-2025 [facility] Work Phone: Urinalysis macro (dipstick) panel (U)on 02-15-2025 Bilirubin, UA Negative Negative - 4(70) +++ mg/dL [facility] Blood, UA Negative Negative - 50 Mark/mcL [facility] Clarity, UA Clear [facility] Color, UA Yellow [facility] Glucose, UA Negative Negative - 2000(110) ++++ mg/dL [facility] Interpretation and review of laboratory results Abnormal [facility] Ketones, UA Negative Negative - 160(16) ++++ mg/dL [facility] Leukocytes, UA Positive Negative - 500+++ Mahsa/mcL [facility] Comment on above: 1+ Nitrite, UA Negative Negative - Positive [facility] pH, UA 6 5 - 9 [facility] Protein, UA Negative Negative - 2000(20) ++++ mg/dL [facility] Spec Grav, UA 1.01 1 - 1.03 [facility] Urobilinogen, UA 0.2 0.2 - 12 mg/dL [facility] Rad - Other Radiology Report on 02-14-2025 Rad - Other Radiology Report [id number] 86#1.00[facility] US OB BPP W NON-STRESS on 02-08-2025 [place] [address] Ultrasound Report Signed Patient: ALONDRA BEAVER MR#: [id number] : 1995 Acct:[id number] Age/Sex: 29 / F ADM Date: 02/08/25 Loc: US Attending Dr: José Lozano D.O. Ordering Physician: José Lozano D.O. Date of Service: 02/08/25 Procedure(s): US OB BPP w non-stress Accession Number(s): [id number] cc: José Lozano D.O.; Zita Alanis M.D. [place] [id number] Patient Name: ALONDRA BEAVER MRN: [id number]:[id number] date: 1995 Sex: F Assigned Patient Location: [facility] Current [place] [facility] Accession/Order Number: [id number] Exam Date: 02/08/2025 07:10 Report Date: 02/08/2025 [...] Lu M.D. 02/08/2025 9:24 AM Dictation Location: [place] [address] Electronically authenticated by: [id number] Y Date: 02/08/2025 09:24 Dictated By: Zita Lu M.D. Signed By: 02/08/25926 DD/ 3 TD/TT: Birthing Nurse: [facility] Radiology, Radiologist, MD - 02/08/2025 [place] [address] Ultrasound Report Signed Patient: ALONDRA BEAVER MR#: [id number] : 1995 Acct:[id number] Age/Sex: 29 / F ADM Date: 02/08/25 Loc: US Attending Dr: José Lozano D.O. Ordering Physician: José Lozano D.O. Date of Service: 02/08/25 Procedure(s): US OB BPP w non-stress Accession Number(s): [id number] cc: José Lozano D.O.; Zita Alanis M.D. The [place] [id number] Patient Name: ALONDRA BEAVER MRN: [facility]:[id number] date: 1995 Sex: F Assigned Patient Location: [facility] Current Patient Location[place] [facility] Accession/Order Number: [id number] Exam Date: 02/08/2025 07:10 Report Date: 02/08/2025 [...] Lu M.D. 02/08/2025 9:24 AM Dictation Location: [place] [address] Electronically authenticated by: [id number] Y Date: 02/08/2025 09:24 Dictated By: Zita Lu M.D. Signed By: 02/08/25926 DD/ 3 TD/TT: Birthing Nurse: [facility] Radiology Study observation (narrative) [facility] OB BPP W NON-STRESS Ordered By: Radiologist Radiology on 02-08-2025 [facility] Work Phone: Urinalysis macro (dipstick) panel (U)on 02-08-2025 Bilirubin, UA Negative Negative - 4(70) +++ mg/dL [facility] Blood, UA Negative Negative - 50 Mark/mcL [facility] Clarity, UA Clear [facility] Color, UA Yellow [facility] Glucose, UA Negative Negative - 2000(110) ++++ mg/dL [facility] Interpretation and review of laboratory results Abnormal [facility] Ketones, UA Negative Negative - 160(16) ++++ mg/dL [facility] Leukocytes, UA 1+ Negative - 500+++ Mahsa/mcL [facility] Nitrite, UA Negative Negative - Positive [facility] pH, UA 6 5 - 9 [facility] Protein, UA Negative Negative - 2000(20) ++++ mg/dL [facility] Spec Grav, UA 1.01 1 - 1.03 [facility] Urobilinogen, UA 1.0 0.2 - 12 mg/dL [facility] US OB BPP W NON-STRESS on 02-01-2025 [place] [address] Ultrasound Report Signed Patient: ALONDRA BEAVER MR#: [id number] : 1995 Acct:[id number] Age/Sex: 29 / F ADM Date: 02/01/25 Loc: US Attending Dr: José Lozano D.O. Ordering Physician: José Lozano D.O. Date of Service: 02/01/25 Procedure(s): US OB BPP w non-stress Accession Number(s): [id number] cc: José Lozano D.O.; Zita Alanis M.D. [place] [address] Patient Name: ALONDRA BEAVER MRN: [facility]:[id number] date: 1995 Sex: F Assigned Patient Location: [facility] Current Patient Location: Accession/Order Number: [id number] Exam Date: 02/01/2025 07:05 Report Date: 02/01/2025 08:47 At the request of: JOSÉ LOZANO DO Procedure: US OB BPP w non-stress Biophysical profile. Reason for exam: Borderline low ZULMA COMPARISON: 01/25/2025 TECHNIQUE: Transabdominal imaging of the gravid uterus was obtained. FINDINGS: The ceramics test engineer reports a BPP of 8 out of 8. ZULMA is normal at 12.1 cm. heart rate 150 bpm. US/US OB BPP w non-stress IMPRESSION: BPP 8 out of 8. Impression dictated by: Enid Robert Jr.OReese 02/01/2025 8:47 AM Dictation Location: [place] Electronically authenticated by: [id number] Y Date: 02/01/2025 08:47 Dictated By: Terry Puentes M.D. Signed By: 02/01/25 0849 DD/ TD/TT: Birthing Nurse: [facility] Radiology, Radiologist, - 02/01/2025 [place] [address] Ultrasound Report Signed Patient: ALONDRA BEAVER MR#: [id number] : 1995 Acct:[id number] Age/Sex: 29 / F ADM Date: 02/01/25 Loc: US Attending Dr: José Lozano D.O. Ordering Physician: José Lozano D.O. Date of Service: 02/01/25 Procedure(s): US OB BPP w non-stress Accession Number(s): [id number] cc: José Lozano D.O.; Zita Alanis M.D. [place] [address] Patient Name: ALONDRA BEAVER MRN: [facility]:[id number] date: 1995 Sex: F Assigned Patient Location: [facility] Current Patient Location: Accession/Order Number: [id number] Exam Date: 02/01/2025 07:05 Report Date: 02/01/2025 08:47 At the request of: JOSÉ LOZANO DO Procedure: US OB BPP w non-stress Biophysical profile. Reason for exam: Borderline low ZULMA COMPARISON: 01/25/2025 TECHNIQUE: Transabdominal imaging of the gravid uterus was obtained. FINDINGS: The ceramics test engineer reports a BPP of 8 out of 8. ZULMA is normal at 12.1 cm. heart rate 150 bpm. US/US OB BPP w non-stress IMPRESSION: BPP 8 out of 8. Impression dictated by: Terry Puentes Jr., D.O. 02/01/2025 8:47 AM Dictation Location: [place] Electronically authenticated by: [id number] Y Date: 02/01/2025 08:47 Dictated By: Terry Puentes M.D. Signed By: 02/01/2549 DD/ TD/TT: Birthing Nurse: [facility] Radiology Study observation (narrative) [facility] US OB BPP W NON-STRESS Ordered By: Radiologist Radiology on 02-01-2025 [facility] Work Phone: Urinalysis macro (dipstick) panel (U)on 01-29-2025 Bilirubin, UA Negative Negative - 4(70) +++ mg/dL [facility] Blood, UA Negative Negative - 50 Mark/mcL [facility] Clarity, UA Clear [facility] Color, UA Yellow [facility] Glucose, UA Negative Negative - 2000(110) ++++ mg/dL [facility] Interpretation and review of laboratory results Abnormal [facility] Ketones, UA Negative Negative - 160(16) ++++ mg/dL [facility] Leukocytes, UA Positive Negative - 500+++ Mahsa/mcL [facility] Comment on above: 3+ Nitrite, UA Negative Negative - Positive [facility] pH, UA 7 5 - 9 [facility] Protein, UA Negative Negative - 2000(20) ++++ mg/dL [facility] Spec Grav, UA 1.01 1 - 1.03 [facility] Urobilinogen, UA 0.2 0.2 - 12 mg/dL [facility] Rad - Other Radiology Report on 01-26-2025 Rad - Other Radiology Report [id number]#1 .[facility] US OB BPP W NON-STRESS on 01-25-2025 [place] [address] Ultrasound Report Signed Patient: ALONDRA BEAVER MR#: [id number] : 1995 Acct:[id number] Age/Sex: 29 / F ADM Date: 01/25/25 Loc: US Attending Dr: José Lozano D.O. Ordering Physician: José Lozano D.O. Date of Service: 01/25/25 Procedure(s): US OB BPP w non-stress Accession Number(s): [id number] cc: José Lozano D.O.; Zita Alanis M.D. [place] [id number] Patient Name: ALONDRA BEAVER MRN: [facility]:[id number] date: 1995 Sex: F Assigned Patient Location: [facility] Current Patient Location: Accession/Order Number: [id number] Exam Date: 01/25/2025 07:01 Report Date: 01/25/2025 [...] Lu M.D. 01/25/2025 8:50 AM [facility] Electron[facility] authenticated by: [id number] Y Date: 01/25/2025 08:50 Dictated By: Zita Lu M.D. Signed By: 01/25/25 0852 DD/ TD/TT: Birthing Nurse: [facility] Radiology, Radiologist, - 01/25/2025 [place] [address] Ultrasound Report Signed Patient: ALONDRA BEAVER MR#: [id number] : 1995 Acct:[id number] Age/Sex: 29 / F ADM Date: 01/25/25 Loc: US Attending Dr: José Lozano D.O. Ordering Physician: José Lozano D.O. Date of Service: 01/25/25 Procedure(s): US OB BPP w non-stress Accession Number(s): [id number] cc: José Lozano D.O.; Zita Alanis M.D. [place] [address] Patient Name: ALONDRA BEAVER MRN: [id number] date: 1995 Sex: F Assigned Patient Location: [facility] Current Patient Location: Accession/Order Number: [id number] Exam Date: 01/25/2025 07:01 Report Date: 01/25/2025 [...] Lu M.D. 01/25/2025 8:50 AM Dictation Location: [place] [address] Electronically authenticated by: [id number] Y Date: 01/25/2025 08:50 Dictated By: Zita Lu M.D. Signed By: 01/25/25 0852 DD/ 0850 TD/TT: Birthing Nurse: [facility] Radiology Study observation (narrative) [facility] US OB BPP W NON-STRESS Ordered By: Radiologist Radiology on 01-25-2025 [facility] Work Phone: US OB BPP W NON-STRESS on 01-18-2025 [place] [address] Ultrasound Report Signed Patient: ALONDRA BEAVER MR#: [id number] : 1995 Acct:[id number] Age/Sex: 29 / F ADM Date: 01/18/25 Loc: US Attending Dr: José Lozano D.O. Ordering Physician: José Lozano D.O. Date of Service: 01/18/25 Procedure(s): US OB BPP w non-stress Accession Number(s): [id number] cc: José Lozano D.O.; Zita Alanis M.D. [place] [address] Patient Name: ALONDRA BEAVER MRN: [id number]:[id number] date: 1995 Sex: F Assigned Patient Location: [facility] Current Patient Location: US Accession/Order Number: [id number] Exam Date: 01/18/2025 07:04 Report Date: 01/18/2025 [...] Lu M.D. 01/18/2025 8:45 AM Dictation Location: [place] [address] Electronically authenticated by: [id number] Y Date: 01/18/2025 08:45 Dictated By: Zita Lu M.D. Signed By: 01/18/2548 DD/ 4 TD/TT: Birthing Nurse: [facility] Radiology, Radiologist, MD - 01/18/2025 [place] [address] Ultrasound Report Signed Patient: ALONDRA BEAVER MR#: [id number] : 1995 Acct:[id number] Age/Sex: 29 / F ADM Date: 01/18/25 Loc: US Attending Dr: José Lozano D.O. Ordering Physician: José Lozano D.O. Date of Service: 01/18/25 Procedure(s): US OB BPP w non-stress Accession Number(s): [id number] cc: José Lozano D.O.; Zita Alanis M.D. [place] [id number] Patient Name: ALONDRA BEAVER MRN: [facility]:[id number] date: 1995 Sex: F Assigned Patient Location: [facility] Current Patient Location: US Accession/Order Number: [id number] Exam Date: 01/18/2025 07:04 Report Date: 01/18/2025 [...] Lu M.D. 01/18/2025 8:45 AM Dictation Location: [place] [address] Electronically authenticated by: [id number] Y Date: 01/18/2025 08:45 Dictated By: Zita Lu M.D. Signed By: 01/18/2548 DD/ 4 TD/TT: Birthing Nurse: [facility] Radiology Study observation (narrative) [facility] US OB BPP W NON-STRESS Ordered By: Radiologist Radiology on 01-18-2025 [facility] Work Phone: Urinalysis macro (dipstick) panel (U)on 01-15-2025 Bilirubin, UA Negative Negative - 4(70) +++ mg/dL [facility] Blood, UA Negative Negative - 50 Mark/mcL [facility] Clarity, UA Clear [facility] Color, UA Yellow [facility] Glucose, UA Negative Negative - 1999(110) ++++ mg/dL [facility] Interpretation and review of laboratory results Abnormal [facility] Ketones, UA Negative Negative - 160(16) ++++ mg/dL [facility] Leukocytes, UA Positive Negative - 500+++ Mahsa/mcL [facility] Comment on above: 1+ Nitrite, UA Negative Negative - Positive [facility] pH, UA 6 5 - 9 [facility] Protein, UA Negative Negative - 2000(20) ++++ mg/dL [facility] Spec Grav, UA 1.02 1 - 1.03 [facility] Urobilinogen, UA 0.2 0.2 - 12 mg/dL [facility] Outside Recordson 01-09-2025 Outside Records [id number] [facility] [id number] #[facility] BPP W NON-STRESS on 01-08-2025 [place] [address] Ultrasound Report Signed Patient: ALONDRA BEAVER MR#: [id number] : 1995 Acct:[id number] Age/Sex: 29 / F ADM Date: 01/08/25 Loc: US Attending Dr: José Lozano D.O. Ordering Physician: José Lozano D.O. Date of Service: 01/08/25 Procedure(s): US OB BPP w non-stress Accession Number(s): [id number] cc: José Lozano D.O.; Zita Alanis M.D. [place] [address] Patient Name: ALONDRA BEAVER MRN: [id number]:[id number] date: 1995 Sex: F Assigned Patient Location: Current Patient Location[place] [facility] [place] Accession/Order Number: [id number] Exam Date: 01/08/2025 12:03 Report Date: 01/08/2025 12:44 At the request of: JOSÉ LOZANO DO Procedure: US OB BPP w non-stress Biophysical profile. Reason for exam: Abnormal BPP. COMPARISON: 01/04/2025 TECHNIQUE: Transabdominal imaging of the gravid uterus was obtained. FINDINGS: The ceramics test engineer reports a BPP of 8 out of 8. ZULMA is normal at 14.8 cm. heart rate 135 bpm. US/US OB BPP w non-stress IMPRESSION: BPP 8 out of 8. Impression dictated by: Terry Puentes Jr., D.O. 01/08/2025 12:44 PM Dictation Location: [place] [address] Electronically authenticated by: [id number] Y Date: 01/08/2025 12:44 Dictated By: Terry Puentes M.D. Signed By: 01/08/25 1246 DD/ 1244 TD/TT: Birthing Nurse: [facility] Radiology, Radiologist, - 01/08/2025 [place] [address] Ultrasound Report Signed Patient: ALONDRA BEAVER MR#: [id number] : 1995 Acct:[id number] Age/Sex: 29 / F ADM Date: 01/08/25 Loc: US Attending Dr: José Lozano D.O. Ordering Physician: José Lozano D.O. Date of Service: 01/08/25 Procedure(s): US OB BPP w non-stress Accession Number(s): [id number] cc: José Lozano D.O.; Zita Alanis M.D. [place] [address] Patient Name: ALONDRA BEAVER MRN: [facility]:[id number] date: 1995 Sex: F Assigned Patient Location: Current Patient Location: [facility] [place] Accession/Order Number: [id number] Exam Date: 01/08/2025 12:03 Report Date: 01/08/2025 12:44 At the request of: JOSÉ LOZANO DO Procedure: US OB BPP w non-stress Biophysical profile. Reason for exam: Abnormal BPP. COMPARISON: 01/04/2025 TECHNIQUE: Transabdominal imaging of the gravid uterus was obtained. FINDINGS: The ceramics test engineer reports a BPP of 8 out of 8. ZULMA is normal at 14.8 cm. heart rate 135 bpm. US/US OB BPP w non-stress IMPRESSION: BPP 8 out of 8. Impression dictated by: Terry Puentes Jr., D.O. 01/08/2025 12:44 PM Dictation Location: [place] [address] Electronically authenticated by: [id number] Y Date: 01/08/2025 12:44 Dictated By: Terry Puentes M.D. Signed By: 01/08/25 1246 DD/ 1244 TD/TT: Birthing Nurse: [facility] Radiology Study observation (narrative) [facility] US OB BPP W NON-STRESS Ordered By: Radiologist Radiology on 01-08-2025 [facility] Work Phone: US OB BPP W NON-STRESS on 01-04-2025 [place] [address] Ultrasound Report Signed Patient: ALONDRA BEAVER MR#: [id number] : 1995 Acct:[id number] Age/Sex: 29 / F ADM Date: 01/04/25 Loc: US Attending Dr: José Lozano D.O. Ordering Physician: José Lozano D.O. Date of Service: 01/04/25 Procedure(s): US OB BPP w non-stress Accession Number(s): [id number] cc: José Lozano D.O.; Zita Alanis M.D. [place] [address] Patient Name: ALONDRA BEAVER MRN: [id number]:[id number] date: 1995 Sex: F Assigned Patient Location: [facility] Current Patient Location: Accession/Order Number: [id number] Exam Date: 01/04/2025 07:10 Report Date: 01/04/2025 [...] Lu M.D. 01/04/2025 10:27 AM Dictation Location: [place] [address] Electronically authenticated by: [id number] Y Date: 01/04/2025 10:27 Dictated By: Zita Lu M.D. Signed By: 01/04/25 1030 DD/ 1027 TD/TT: Birthing Nurse: [facility] Radiology, Radiologist, - 01/04/2025 [place] [address] Ultrasound Report Signed Patient: ALONDRA BEAVER MR#: [id number] : 1995 Acct:[id number] Age/Sex: 29 / F ADM Date: 01/04/25 Loc: US Attending Dr: José Lozano D.O. Ordering Physician: José Lozano D.O. Date of Service: 01/04/25 Procedure(s): US OB BPP w non-stress Accession Number(s): [id number] cc: José Lozano D.O.; Zita Alanis M.D. [place] [id number] Patient Name: ALONDRA BEAVER MRN: [facility]:[id number] date: 1995 Sex: F Assigned Patient Location: [facility] Current Patient Location: Accession/Order Number: [id number] Exam Date: 01/04/2025 07:10 Report Date: 01/04/2025 10:27 At the request of: JOSÉ LOZANO DO Procedure: US OB BPP w non-stress BIOPHYSICAL PROFILE: CLINICAL INFORMATION: ZULMA BORDERLINE LOW O28.8 COMPARISON: None There is a single live intrauterine gestation in cephalic presentation. The reported gestational age is 32 weeks 3 days. The heart rate [id number] beats per minute. FINDINGS: TONE: 1 or [...] Lu M.D. 01/04/2025 10:27 AM Dictation Location: [place] Electronically authenticated by: [id number] Y Date: 01/04/2025 10:27 Dictated By: Zita Lu M.D. Signed By: 01/04/25 1030 DD/ 1027 TD/TT: Birthing Nurse: [facility] Radiology Study observation (narrative) [facility] US OB BPP W NON-STRESS Ordered By: Radiologist Radiology on 01-04-2025 [facility] Work Phone: Urinalysis macro (dipstick) panel (U)on 01-02-2025 Bilirubin, UA Negative Negative - 4(70) +++ mg/dL [facility] Blood, UA Negative Negative - 50 Mark/mcL [facility] Clarity, UA Clear [facility] Color, UA Yellow [facility] Glucose, UA Negative Negative - 2000(110) ++++ mg/dL [facility] Interpretation and review of laboratory results Abnormal [facility] Ketones, UA Negative Negative - 160(16) ++++ mg/dL [facility] Leukocytes, UA Positive Negative - 500+++ Mahsa/mcL [facility] Comment on above: Trace Nitrite, UA Negative Negative - Positive [facility] pH, UA 6.5 5 - 9 [facility] Protein, UA Negative Negative - 2000(20) ++++ mg/dL [facility] Spec Grav, UA 1.015 1 - 1.03 [facility] [facility] Urobilinogen, UA 0.2 0.2 - 12 mg/dL [facility] US OB FOLLOW UP TRANSABDOMIN AL APPROACHon [...] Negative - 4(70) +++ mg/dL [facility] Blood, UA Negative Negative - 50 Mark/mcL [facility] Clarity, UA Clear [facility] Color, UA Yellow [facility] Glucose, UA Negative Negative - 1999(110) ++++ mg/dL [facility] Interpretation and review of laboratory results Abnormal [facility] Ketones, UA Negative Negative - 160(16) ++++ mg/dL [facility] Leukocytes, UA 3+ Negative - 500+++ Mahsa/mcL [facility] pH, UA 6 5 - 9 [facility] Protein, UA Negative Negative - 2000(20) ++++ mg/dL [facility] Spec Grav, UA 1.015 1 - 1.03 [facility] Urobilinogen, UA 0.2 0.2 - 12 mg/dL [facility] GLUCOSE TOLERANCE 3 HOURon 0 11-28-2024 GLUCOSE TOLERANCE 3 HOUR mg/dL [facility] Comment on above: GLU FAST 93 (<95) Co l: 11/28/24 0641 GLU 1HR 149 (<180) Col: 11/28/24 0743 GLU 2HR 118 (<155) Col: 11/28/24 0843 GLU 3HR 81 (<140) Col: 11/28/24 0942 [facility] ALL CBC WITH AUTO DIFFon BASOPHILS ABSOLUTE AUTO 0 [facility] Basophils/100 WBC (Bld) 0.4 % 0.2 - 2.0 % [facility] Eosinophils/100 WBC (Bld) 1.2 % 0.9 - 7.0 % [facility] Erythrocyte distribution width (RBC) [Ratio] 13 % 11.0 - 15.0 % [facility] Hematocrit (Bld) [Volume fraction] 35.6 % Low 36.0 - 48.0 % [facility] Hemoglobin (Bld) [Mass/Vol] 11.9 g/dL Low 12.0 - 16.0 g/dL [facility] IMMATURE GRANULOCYTES ABS AUTO 0.13 High [facility] Immature granulocytes/100 WBC (Bld) 1.2 % High 0.0 - 0.5 % [facility] Interpretation and review of laboratory results Abnormal [facility] LYMPHOCYTES ABSOLUTE AUTO 1.3 [facility] Lymphocytes/100 WBC (Bld) 11.6 % Low 20.5 - 60.0 % [facility] MCH (RBC) [Entitic mass] 30.9 pg 26.7 - 34.0 pg [facility] MCHC (RBC) [Mass/Vol] 33.4 g/dL 29.9 - 35.2 g/dL [facility] MCV (RBC) [Entitic vol] 92.5 fL 81.0 - 99.0 fL [facility] MONOCYTES ABSOLUTE AUTO 0.5 [facility] Monocytes/100 WBC (Bld) 4.9 % 1.7 - 12.0 % [facility] NEUTROPHILS ABSOLUTE AUTO 8.8 High [facility] Neutrophils/100 WBC (Bld) 80.7 % High 43.0 - 75.0 % [facility] Platelet mean volume (Bld) [Entitic vol] 10.5 fL 9.5 - [facility] [facility] PLT 198 [facility] RBC 3.85 Low [facility] WBC 10.9 [facility] Urinalysis macro (dipstick) panel (U)on 11-22-2024 Bilirubin, UA Negative Negative - 4(70) +++ mg/dL [facility] Blood, UA Negative Negative - 50 Mark/mcL [facility] Clarity, UA Clear [facility] Color, UA Yellow [facility] Glucose, UA Negative Negative - 1999(110) ++++ mg/dL [facility] Interpretation and review of laboratory results Abnormal [facility] Ketones, UA Negative Negative - 160(16) ++++ mg/dL [facility] Leukocytes, UA Moderate Negative - 500+++ Mahsa/mcL [facility] Nitrite, UA Negative Negative - Positive [facility] pH, UA 6 5 - 9 [facility] Protein, UA Negative Negative - 1999(20) ++++ mg/dL [facility] Spec Grav, UA 1.01 1 - 1.03 [facility] Urobilinogen, UA 0.2 0.2 - 12 mg/dL [facility] Urinalysis macro (dipstick) panel (U)on 10-26-2024 Bilirubin, UA Negative Negative - 4(70) +++ mg/dL [facility] Blood, UA Negative Negative - 50 Mark/mcL [facility] Clarity, UA Clear [facility] Color, UA Yellow [facility] Glucose, UA Negative Negative - 1999(110) ++++ mg/dL [facility] Interpretation and review of laboratory results Normal [facility] Ketones, UA Negative Negative - 160(16) ++++ mg/dL [facility] Leukocytes, UA Negative Negative - 500+++ Mahsa/mcL [facility] Nitrite, UA Negative Negative - Positive [facility] pH, UA 6.5 5 - 9 [facility] Protein, UA Negative Negative - 1999(20) ++++ mg/dL [facility] Spec Grav, UA 1.02 1 - 1.03 [facility] Urobilinogen, UA 0.2 0.2 - 12 mg/dL [facility] OB 14+ WEEKS ANATOMY SCAN on 09-28-2024 [...] II, MD, PHD at 27-Oct-2024 06:14:52 AM [facility] Normal Not Available Comment on above: Order Comment: US OB ANATOMY SINGLE W US OB CERVICAL LENGTH Estimated Date of Delivery: 02/26/25 Gestational Age as of 09/28/2024: 18w3d BOX TESTon 08-29-2024 BOX TEST SENT OUT [facility] BOX[address] [facility] [address] 08-29-24 [facility] Urinalysis macro (dipstick) panel (U)on 08-29-2024 Bilirubin, UA Negative Negative - 4(70) +++ mg/dL [facility] Blood, UA Negative Negative - 50 Mark/mcL [facility] Clarity, UA Clear [facility] Color, UA Yellow [facility] Glucose, UA Negative Negative - 1999(110) ++++ mg/dL [facility] Interpretation and review of laboratory results Normal [facility] Ketones, UA Negative Negative - 160(16) ++++ mg/dL [facility] Leukocytes, UA Negative Negative - 500+++ Mahsa/mcL [facility] Nitrite, UA Negative Negative - Positive [facility] pH, UA 6 5 - 9 [facility] Protein, UA Negative Negative - 1999(20) ++++ mg/dL [facility] Spec Grav, UA 1.02 1 - 1.03 [facility] Urobilinogen, UA 0.2 0.2 - 12 mg/dL [facility] HCG ( test) Ql (U)o n 08-10-2024 Interpretation and review of laboratory results Abnormal [facility] Preg Test, Ur Positive Negative [facility] US OB < 14 WEEKS EARLYon US [...] Doppler evaluation of the bilateral ovaries. Electronically Signed:Electronicall y signed by LEONIDAS NICOLE II, MD, PHD at 11-Aug-2024 08:40:37 AM [facility] Normal Not Available Comment on above: Order Comment: US OB Patient's last menstrual period was 05/09/2024 (exact date). Urinalysis macro (dipstick) panel (U)on 08-10-2024 Bilirubin, UA Negative Negative - 4(70) +++ mg/dL [facility] Blood, UA Negative Negative - 50 Mark/mcL [facility] Clarity, UA Clear [facility] Color, UA Yellow [facility] Glucose, UA Negative Negative - 1999(110) ++++ mg/dL [facility] Interpretation and review of laboratory results Abnormal [facility] Ketones, UA Positive Negative - 160(16) ++++ mg/dL [facility] Comment on above: 40 Leukocytes, UA Negative Negative - 500+++ Mahsa/mcL [facility] Nitrite, UA Negative Negative - Positive [facility] pH, UA 5.5 5 - 9 [facility] Protein, UA Negative Negative - 1999(20) ++++ mg/dL [facility] Spec Grav, UA 1.02 1 - 1.03 [facility] Urobilinogen, UA 0.2 0.2 - 12 mg/dL [facility] Outside Recordson 04-20-2024 Outside Records [id number] [facility] 03-31-2024 Outside Records [id number][facility] 02-18-2024 Consent Forms [id number] #1.00OTGTIFF Normal [facility] Cytology Cervical or vaginal smear or scraping studyon 02-08-2024 [facility] HCG ( test) Ql (U)o n 02-08-2024 Interpretation and review of laboratory results Normal [facility] Preg Test, Ur Negative [facility] CMP Standardon 02-03-2024 eGFR Non AA >60 Invalid Interpretation Code [facility] Comment on above: Performed By: #### 1 [id number], [id number], 6377983, 9947707, 3410447, 0763013, 6319030 #### [facility] (DEFAULT) [address] [place] [address] 98104 eGFR AA >60 Invalid Interpretation Code [facility] Comment on above: Performed By: #### 1 [id number], [id number], 9640397, 5456685, 7507563, 8358329, 8611369 #### [facility] (DEFAULT) [address] [place] [address] 52737 Albumin [Mass/Vol] 4.4 g/dL Normal 3.5-5.0 [facility] Comment on above: Performed By: #### 1 [id number], [id number], 5291238, 5334126, 0552624, 9520044, 3364349 #### [facility] (DEFAULT) [address] [place] [address] 51418 Albumin/Globulin [Mass ratio] 1.4 {ratio} Normal 1.4-2.6 [facility] Comment on above: Performed By: #### 1 [id number], [id number], 7960837, 4889860, 5097219, 0141123, 1495282 #### [facility] (DEFAULT) [address] [place] [address] 44640 Alk Phos 67 IU/L Normal 32-91 [facility] Comment on above: Performed By: #### 1 [id number], 2148165978, 0967402, 1191574, 3746540, 0822916, 6841280 #### [facility] (DEFAULT) [address] [place] [address] 31435 ALT [Catalytic activity/Vol] 19.0 U/L Normal 14.0-54.0 [facility] Comment on above: Performed By: #### 1 [id number], [id number], 4648612, 1165390, 4383310, 2970567, 5302765 #### [facility] (DEFAULT) [address] [place] [address] Anion gap [Moles/Vol] 10.8 mmol/L Normal 5.0-19.0 [facility] Comment on above: Performed By: #### 1 [id number], 1768159670, 3406717, 7136997, 7195589, 6005094, 4044368 #### [facility] (DEFAULT) [address] [place] [address] AST [Catalytic activity/Vol] 21 U/L Normal 15-41 [facility] Comment on above: Performed By: #### 1 [id number], 7989374383, 2552964, 2877064, 9936983, 8676627, 3630289 #### [facility] (DEFAULT) [address] [place] [address] Bili Total 0.7 mg/dL Normal 0.3-1.2 [facility] Comment on above: Performed By: #### 1 [id number], 8631452845, 0739348, 1298222, 9639343, 7527926, 6027258 #### [facility] (DEFAULT) [address] [place] [address] 16937 Calcium [Mass/Vol] 8.9 mg/dL Normal 8.9-10.3 [facility] Comment on above: Performed By: #### 1 [id number], 2745568750, 1855254, 8057867, 4832867, 0491386, 5692170 #### [facility] (DEFAULT) [address] [place] [address] 97135 Chloride [Moles/Vol] 100 mmol/L Low 101-111 [facility] Comment on above: Performed By: #### 1 [id number], 0827122656, 1037671, 2443913, 9971740, 9279108, 0241079 #### [facility] (DEFAULT) [address] [place] [address] 98930 CO2 [Moles/Vol] 26 mmol/L Normal 21-32 [facility] Comment on above: Performed By: #### 1 [id number], 2256807596, 0193968, 4682114, 5611192, 9720255, 8298468 #### [facility] (DEFAULT) [address] [place] [address] 58145 Creatinine [Mass/Vol] 0.86 mg/dL Normal 0.60-1.30 [facility] Comment on above: Performed By: #### 1 [id number], 5341853295, 7080370, 3787377, 3599184, 6911579, 7701762 #### [facility] (DEFAULT) [address] [place] [address] 77038 Globulin (S) [Mass/Vol] 3.1 g/dL Normal 1.5-4.3 [facility] Comment on above: Performed By: #### 1 [id number], 3664906471, 3300395, 2787679, 5395615, 1519450, 3411993 #### [facility] (DEFAULT) [address] [place] [address] 16072 Glucose [Mass/Vol] 90.0 mg/dL Normal 74.0-118.0 [facility] Comment on above: Performed By: #### 1 [id number], 0754787570, 7167201, 9819393, 6816842, 8310990, 2664491 #### [facility] (DEFAULT) [address] [place] [address] 10341 Osmolality 267 mOsm/L Invalid Interpretation Code [facility] Comment on above: Performed By: #### 1 [id number], 0859569338, 4345447, 3805578, 0998000, 0867254, 0158632 #### [facility] (DEFAULT) [address] [place] [address] 95235 Potassium [Moles/Vol] 3.8 mmol/L Normal 3.6-5.1 [facility] Comment on above: Performed By: #### 1 [id number], 0751403154, 7528457, 5518288, 0246430, 6562248, 5889689 #### [facility] (DEFAULT) [address] [place] [address] 01933 Protein [Mass/Vol] 7.5 g/dL Normal 6.5-8.1 [facility] Comment on above: Performed By: #### 1 [id number], 4839457415, 1500348, 1944638, 0930048, 0377909, 4772555 #### [facility] (DEFAULT) [address] [place] [address] 10489 Sodium [Moles/Vol] 133.0 mmol/L Low 136.0-144.0 [facility] Comment on above: Performed By: #### 1 439594952, 3615478456, 0827462, 9080177, 3196224, 2766275, 6301729 #### [facility] (DEFAULT) [address] [place] [address] 36393 Urea nitrogen [Mass/Vol] 17 mg/dL Normal 01-02 [facility] Comment on above: Performed By: #### 1 750280294, 2930228939, 2375053, 6256009, 1268648, 0184464, 4666214 #### [facility] (DEFAULT) [address] [place] [address] 47665 Urea nitrogen/Creatinine [Mass ratio] 19.7 mg/mg High 4.6-16.2 [facility] Comment on above: Performed By: #### 1 [id number], 9742778490, 1644019, 0977748, 1766038, 3556720, 2790893 #### [facility] (DEFAULT) [address] [place] [address] 34408 GGTon 02-03-2024 Gamma glutamyl transferase [Catalytic activity/Vol] 20.0 U/L Normal 7.0-50.0 [facility] Comment on above: Performed By: #### 1 [id number], 8580067674, 0252070, 9974739, 6587867, 6805469, 0888259 #### [facility] (DEFAULT) [address] [place] [address] 52990 Iron Levelon 02-03-2024 Iron [Mass/Vol] 93.0 ug/dL Normal 28.0-170.0 [facility] Comment on above: Performed By: #### 1 [id number], 0555056246, 6770607, 7489240, 7862036, 8117693, 2375985 #### [facility] (DEFAULT) [address] [place] [address] 00969 LDHon 02-03-2024 LDH 126.0 IU/L Normal 98.0-192.0 [facility] Comment on above: Performed By: #### 1 [id number], 3367893858, 8631795, 0060303, 3704622, 8858291, 0682906 #### [facility] (DEFAULT) [address] [place] [address] 36970 Lipid Panel Standardon 02-02 Cholesterol [Mass/Vol] 214.0 mg/dL High 66.0-200.0 [facility] Comment on above: Performed By: #### 1 [id number], 1138506798, 0959008, 8473259, 4894316, 5931506, 5300098 #### [facility] (DEFAULT) [address] [place] [address] 48317 Cholesterol in HDL [Mass/Vol] 64 mg/dL Normal 40-71 [facility] Comment on above: Performed By: #### 1 [id number], 7745172707, 2664612, 3526029, 9435479, 2037027, 3198890 #### [facility] (DEFAULT) [address] [place] [address] 45195 Cholesterol in LDL [Mass/Vol] 144 mg/dL High 1-100 [facility] Comment on above: Performed By: #### 1 [id number], 0577760659, 0020543, 3635645, 8243249, 1435551, 9837326 #### [facility] (DEFAULT) [address] [place] [address] 79152 Cholesterol.total/C holesterol in HDL [Mass ratio] 3.3 {ratio} Normal 0.0-4.5 [facility] Comment on above: Performed By: #### 1 [id number], 2812125627, 3333389, 9635667, 8103824, 2476446, 1750640 #### [facility] (DEFAULT) [address] [place] [address] Triglyceride [Mass/Vol] 28.0 mg/dL Normal 0.0-150.0 [facility] Comment on above: Performed By: #### 1 [id number], 7449874620, 6951475, 4310083, 4803690, 3123658, 4150495 #### [facility] (DEFAULT) [address] [place] [address] 45988 VLDL. 6 mg/dL Normal 5-40 [facility] Comment on above: Performed By: #### 1 [id number], 1003002944, 4887970, 3378678, 7512226, 0502407, 1476748 #### [facility] (DEFAULT) [address] [place] [address] 12412 Phoson 02-03-2024 Phosphate [Mass/Vol] 2.9 mg/dL Normal 2.5-4.6 [facility] Comment on above: Performed By: #### 1 [id number], 6461220339, 1093789, 6574011, 2827653, 3071240, 0121338 #### [facility] (DEFAULT) [address] [place] [address] 88038 Uric Acidon 02-03-2024 Urate [Mass/Vol] 4.0 mg/dL Normal 2.6-8.0 [facility] Comment on above: Performed By: #### 1 [id number], 4267021937, 8342275, 4813077, 6394344, 7868847, 8652672 #### [facility] (DEFAULT) [address] [place] [address] 48507 XR chest 2V*on 03-02-2023 XR chest 2V* [facility] [address] [address] XRay Report Signed Patient: Alondra Sanches MR#: [id number] : 1995 Acct:[id number] Age/Sex: 27 / F ADM Date: 03/02/23 Loc: [facility] Room: Type: [facility] Attending Dr: Lisandro Buitrago DO Copies to: Lisandro Buitrago DO Ordering Provider: Lisandro Buitrago DO Date of Service: 03/02/23 XR/XR shoulder LT min 2V*: Left shoulder pain ([id number]) XR/XR chest 2V*: Left shoulder pain;Chest pain [...] CLAVICLE. Impression dictated by: Terry Puentes Jr., DReeseOReese03/02/2023 4:13 PM Dictation Location: [place] [address] Transcribed By: [facility] 03/02/231612 Dictated By: Terry Puentes Jr, DO 03/02/23 161 Signed By: 03/02/23 161 Normal [facility] CBC W MANUAL DIFFon 07-29-19 22 ATYPICAL LYMPH # Normal [facility] Comment on above: Performed By: #### C GARRET #### [facility] [address] [place] [address] Dr. Susannah Hopkins ATYPICAL LYMPH % Normal [facility] Comment on above: Performed By: #### C GARRET #### [facility] [address] [address] [address] Susannah Hopkins BAND # 0.3 103/ul Normal 0.0-0.3 [facility] Comment on above: Performed By: #### C GARRET #### [facility] [address] [address] [address] Susannah Hopkins BAND % 2 % Normal 0-5 [facility] Comment on above: Performed By: #### C GARRET #### [facility] [address] [address] [address] Susannah Hopkins BASOM # 0.00 103/ul Normal 0.00-0.10 [facility] Comment on above: Performed By: #### C BCOCTAVIANO #### [facility] [address] [place] [address] Dr. Susannah Hopkins BASOM % 0.0 % Critically low 0.2-2.0 [facility] Comment on above: Performed By: #### C BCOCTAVIANO #### [facility] [address] [place] [address] Dr. Susannah Hopkins BLAST # Normal [facility] Comment on above: Performed By: #### C GARRET #### [facility] [address] [place] [address] Dr. Susannah Hopkins BLAST % Normal [facility] Comment on above: Performed By: #### C GARRET #### [facility] [address] [place] [address] Dr. Susannah Hopkins CORRECTED WBC Normal 4.0-11.0 [facility] Comment on above: Performed By: #### C GARRET #### [facility] [address] [place] [address] Dr. Susannah Hopkins EOS # 0.00 103/ul Normal 0.00-0.70 [facility] Comment on above: Performed By: #### C GARRET #### [facility] [address] [place] [address] Dr. Susannah Hopkins EOS% 0.0 % Critically low 0.9-7.0 [facility] Comment on above: Performed By: #### C GARRET #### [facility] [address] [place] [address] Dr. Susannah Hopkins HCT 46.0 % Normal 36.0-48.0 [facility] Comment on above: Performed By: #### C GARRET #### [facility] [address] [place] [address] Dr. Susannah Hopkins HGB 15.7 g/dl Normal 12.0-16.0 [facility] Comment on above: Performed By: #### C GARRET #### [facility] [address] [place] [address] Dr. Susannah Hopkins LYMPHM # 0.69 103/ul Critically low 1.20-3.80 [facility] Comment on above: Performed By: #### C GARRET #### [facility] [address] [place] [address] Dr. Susannah Hopkins LYMPHM% 4.0 % Critically low 20.5-60.0 [facility] Comment on above: Performed By: #### C GARRET #### [facility] [address] [place] [address] Dr. Susannah Hopkins MCH 30.1 pg Normal 26.7-34.0 [facility] Comment on above: Performed By: #### C GARRET #### [facility] [address] [place] [address] Dr. Susannah Hopkins MCHC 34.1 g/dl Normal 29.9-35.2 [facility] Comment on above: Performed By: #### C GARRET #### [facility] [address] [place] [address] Dr. Susannah Hopkins MCV 88.3 fL Normal 81.0-99.0 [facility] Comment on above: Performed By: #### C GARRET #### [facility] [address] [place] [address] Dr. Susannah Hopkins METAMYELOCYTE # Normal [facility] Comment on above: Performed By: #### C GARRET #### [facility] [address] [place] [address] Dr. Susannah Hopkins METAMYELOCYTE % Normal [facility] Comment on above: Performed By: #### C BCOCTAVIANO #### [facility] [address] [place] [address] Dr. Susannah Hopkins MONOM# 1.20 103/ul Critically high 0.30-0.80 [facility] Comment on above: Performed By: #### C GARRET #### [facility] [address] [place] [address] Dr. Susannah Hopkins MONOM% 7.0 % Normal 1.7-12.0 [facility] Comment on above: Performed By: #### C GARRET #### [facility] [address] [address] [address] Susannah Hopkins MPV 9.8 fL Normal 9.5-13.5 [facility] Comment on above: Performed By: #### C GARRET #### [facility] [address] [place] [address] Dr. Susannah Hopkins MYELOCYTE # Normal [facility] Comment on above: Performed By: #### C GARRET #### [facility] [address] [place] [address] Dr. Susannah Hopkins MYELOCYTE % Normal [facility] Comment on above: Performed By: #### C GARRET #### [facility] [address] [place] [address] Dr. Susannah Hopkins NRBC Normal [facility] Comment on above: Performed By: #### C GARRET #### [facility] [address] [place] [address] Dr. Susannah Hpokins PLT 278 103/ul Normal 150-450 [facility] Comment on above: Performed By: #### C GARRET #### [facility] [address] [place] [address] Dr. Susannah Hopkins RBC 5.21 106/ul Normal 4.20-5.40 [facility] Comment on above: Performed By: #### C GARRET #### [facility] [address] [place] [address] Dr. Susannah Hopkins RDW 11.7 % Normal 11.0-15.0 [facility] Comment on above: Performed By: #### C GARRET #### [facility] [address] [place] [address] Dr. Susannah Hopkins SEG # 14.96 103/ul Critically high 1.40-6.50 [facility] Comment on above: Performed By: #### C GARRET #### [facility] [address] [place] [address] Dr. Susannah Hopkins SEG % 87.0 % Critically high 43.0-75.0 [facility] Comment on above: Performed By: #### C GARRET #### [facility] [address] [place] [address] Dr. Susannah Hopkins WBC 17.2 103/ul Critically high 4.0-11.[address] [facility] Comment on above: Performed By: #### C BCMAN #### [facility] [address] [place] [address] Dr. Susannah Hopkins INFLUENZA A AND B AGon 07-28 INFLUANEGH SEE BELOW Normal [facility] Comment on above: Result Comment: Nega tive for Flu A protein angiten. Infection due to Flu A cannot be ruled out. Flu A angiten in the sample may be below the detection limit of the test. Performed By: #### I NFLUAB #### [facility] [address] [place] [address] Dr. Susannah Hopkins INFLUBNEGH SEE BELOW Normal [facility] Comment on above: Result Comment: Nega tive for Flu B protein antigen. Infection due to Flu B cannot be ruled out. Flu B antigen in the sample may be below the detection limit of the test. Performed By: #### I NFLUAB #### [facility] [address] [place] [address] Dr. Susannah Hopkins INFLUENZA A AG Negative Normal NEGATIVE SEE COMMENT [facility] Comment on above: Performed By: #### I NFLUAB #### [facility] [address] [place] [address] Dr. Susannah Hopkins INFLUENZA B AG Negative Normal NEGATIVE SEE COMMENT [facility] Comment on above: Performed By: #### I NFLUAB #### [facility] [address] [place] [address] Dr. Susannah Hopkins INTERNAL CONTROLS Within Normal Limits Normal Wi thin Normal Limits [facility] Comment on above: Performed By: #### I NFLUAB #### [facility] [address] [place] [address] Dr. Susannah Hopkins PREG HCG QUALon 07-28-2021 , QUAL Negative Normal NEGATIVE [facility] Comment on above: Performed By: #### P REG #### [facility] [address] [place] [address] Dr. Susannah Hopkins PROF 14(COMP METB)on 022 Albumin [Mass/Vol] 4.4 g/dL Normal 3.4-5.0 [facility] Comment on above: Performed By: #### C MP #### [facility] [address] [place] [address] Dr. Susannah Hopkins Albumin/Globulin [Mass ratio] 1.1 {ratio} Normal [facility] Comment on above: Performed By: #### C MP #### [facility] [address] [place] [address] Dr. Susannah Hopkins ALP [Catalytic activity/Vol] 71 U/L Normal 46-116 [facility] Comment on above: Performed By: #### C MP #### [facility] [address] [place] [address] Dr. Susannah Hopkins ALT [Catalytic activity/Vol] 19 U/L Normal 14-59 [facility] Comment on above: Performed By: #### C MP #### [facility] [address] [place] [address] Dr. Susannah Hopkins Anion gap [Moles/Vol] 15.1 mmol/L Normal [facility] Comment on above: Performed By: #### C MP #### [facility] [address] [place] [address] Dr. Susannah Hopkins AST [Catalytic activity/Vol] 23 U/L Normal 15-37 [facility] Comment on above: Performed By: #### C MP #### [facility] [address] [place] [address] Dr. Susannah Hopkins Bilirubin [Mass/Vol] 0.9 mg/dL Normal 0.2-1.3 [facility] Comment on above: Performed By: #### C MP #### [facility] [address] [place] [address] Dr. Susannah Hopkins Calcium [Mass/Vol] 9.5 mg/dL Normal 8.5-10.1 [facility] Comment on above: Performed By: #### C MP #### [facility] [address] [place] [address] Dr. Susannah Hopkins Chloride [Moles/Vol] 101 mmol/L Normal 98-107 [facility] Comment on above: Performed By: #### C MP #### [facility] [address] [address] [address] Susannah Hopkins CO2 [Moles/Vol] 23.8 mmol/L Normal 22.0-30.0 [facility] Comment on above: Performed By: #### C MP #### [facility] [address] [address] [address] Susannah Hopkins Creatinine [Mass/Vol] 1.04 mg/dL Normal 0.52-1.04 [facility] Comment on above: Performed By: #### C MP #### [facility] [address] [address] [address] Susannah Hopkins EGFR-AF COLOMBIAN >60 Normal >=60 [facility] Comment on above: Performed By: #### C MP #### [facility] [address] [address] [address] Susannah Hopkins EGFR-NON AF COLOMBIAN >60 Normal >=60 [facility] Comment on above: Performed By: #### C MP #### [facility] [address] [address] [address] Susannah Hopkins Globulin (S) [Mass/Vol] 3.9 g/dL Normal [facility] Comment on above: Performed By: #### C MP #### [facility] [address] [address] [address] Susannah Hopkins Glucose [Mass/Vol] 157 mg/dL Critically high 74-106 [facility] Comment on above: Performed By: #### C MP #### [facility] [address] [address] [address] Susannah Hopkins Potassium [Moles/Vol] 3.9 mmol/L Normal 3.4-5.0 [facility] Comment on above: Performed By: #### C MP #### [facility] [address] [address] [address] Susannah Hopkins Protein [Mass/Vol] 8.3 g/dL Critically high 6.1-8.2 [facility] Comment on above: Performed By: #### C MP #### [facility] [address] [address] [address] Susannah Hopkins Sodium [Moles/Vol] 136 mmol/L Critically low 137-145 [facility] Comment on above: Performed By: #### C MP #### [facility] [address] [address] [address] Susannah Hopkins Urea nitrogen [Mass/Vol] 20.0 mg/dL Critically high 7.0-18.0 [facility] Comment on above: Performed By: #### C MP #### [facility] [address] [address] [address] Susannah Hopkins Urea nitrogen/Creatinine [Mass ratio] 19.2 mg/mg Normal [facility] Comment on above: Performed By: #### C MP #### [facility] [address] [address] [address] Susannah Hopkins Vital Signs Date Time Vital Sign Value Performing Clinician Facility 02-15-2025 08:49-0400 Body mass index (BMI) [Ratio] 31.53 kg/m2 Kera Li HEAVY EQUIPMENT SERVICE TECHNICIAN Work Phone: [facility] 02-15-2025 08:49-0400 Body weight 80.74 kg Kera Li HEAVY EQUIPMENT SERVICE TECHNICIAN Work Phone: [facility] 02-15-2025 08:49-0400 Diastolic blood pressure 86 mm[Hg] Kera Li HEAVY EQUIPMENT SERVICE TECHNICIAN Work Phone: [facility] 02-15-2025 08:49-0400 Systolic blood pressure 132 mm[Hg] Kera Li HEAVY EQUIPMENT SERVICE TECHNICIAN Work Phone: [facility] 02-08-2025 08:56-0400 Body mass index (BMI) [Ratio] 30.47 kg/m2 Kera Li HEAVY EQUIPMENT SERVICE TECHNICIAN Work Phone: [facility] 02-08-2025 08:56-0400 Body weight 78.02 kg Kera Li HEAVY EQUIPMENT SERVICE TECHNICIAN Work Phone: [facility] 02-08-2025 08:56-0400 Diastolic blood pressure 78 mm[Hg] Kera Li HEAVY EQUIPMENT SERVICE TECHNICIAN Work Phone: [facility] 02-08-2025 08:56-0400 Systolic blood pressure 130 mm[Hg] Kera Jen HEAVY EQUIPMENT SERVICE TECHNICIAN Work Phone: [facility] 01-29-2025 08:37-0400 Body mass index (BMI) [Ratio] 29.98 kg/m2 José Blake DO Work Phone: [facility] 01-29-2025 08:37-0400 Body weight 76.77 kg José Blake DO Work Phone: [facility] 01-29-2025 08:37-0400 Diastolic blood pressure 86 mm[Hg] José Blake DO Work Phone: [facility] 01-29-2025 08:37-0400 Systolic blood pressure 128 mm[Hg] José Blake DO Work Phone: [facility] 01-15-2025 09:07-0400 Diastolic blood pressure 72 mm[Hg] Kera Jen HEAVY EQUIPMENT SERVICE TECHNICIAN Work Phone: [facility] 01-15-2025 09:07-0400 Systolic blood pressure 132 mm[Hg] Kera Jen HEAVY EQUIPMENT SERVICE TECHNICIAN Work Phone: [facility] 01-15-2025 09:06-0400 Body mass index (BMI) [Ratio] 29.85 kg/m2 Kera Jen HEAVY EQUIPMENT SERVICE TECHNICIAN Work Phone: [facility] 01-15-2025 09:06-0400 Body weight 76.43 kg Kera Jen HEAVY EQUIPMENT SERVICE TECHNICIAN Work Phone: [facility] 01-02-2025 08:26-0400 Body mass index (BMI) [Ratio] 28.96 kg/m2 José Blake DO Work Phone: [facility] 01-02-2025 08:26-0400 Body weight 74.16 kg José Blake DO Work Phone: [facility] 01-02-2025 08:26-0400 Diastolic blood pressure 76 mm[Hg] José Blake DO Work Phone: [facility] 01-02-2025 08:26-0400 Systolic blood pressure 120 mm[Hg] José Blake DO Work Phone: [facility] 12-19-2024 09:04-0400 Body mass index (BMI) [Ratio] 28.7 kg/m2 Nadine Galileo PA Work Phone: [facility] 12-19-2024 09:04-0400 Body weight 73.48 kg Nadine Galileo PA Work Phone: [facility] 12-19-2024 09:04-0400 Diastolic blood pressure 78 mm[Hg] Nadine Galileo PA Work Phone: [facility] 12-19-2024 09:04-0400 Systolic blood pressure 104 mm[Hg] Nadine Galileo PA Work Phone: [facility] 12-05-2024 09:23-0400 Body mass index (BMI) [Ratio] 28.52 kg/m2 José Blake DO Work Phone: [facility] 12-05-2024 09:23-0400 Body weight 73.03 kg José Blake DO Work Phone: [facility] 12-05-2024 09:23-0400 Diastolic blood pressure 76 mm[Hg] José Blake DO Work Phone: [facility] 12-05-2024 09:23-0400 Systolic blood pressure 120 mm[Hg] José Blake DO Work Phone: [facility] 11-22-2024 08:52-0400 Body mass index (BMI) [Ratio] 28.19 kg/m2 Nadine Galileo PA Work Phone: [facility] 11-22-2024 08:52-0400 Body weight 72.18 kg Nadine Galileo PA Work Phone: [facility] 11-22-2024 08:52-0400 Diastolic blood pressure 76 mm[Hg] Nadine Galileo PA Work Phone: [facility] 11-22-2024 08:52-0400 Systolic blood pressure 120 mm[Hg] Nadine DE JESUS Work Phone: [facility] 10-26-2024 12:05-0400 Body mass index (BMI) [Ratio] 26.93 kg/m2 José Blake DO Work Phone: [facility] 10-26-2024 12:05-0400 Body weight 68.95 kg José Blake DO Work Phone: [facility] 10-26-2024 12:05-0400 Diastolic blood pressure 68 mm[Hg] José Blake DO Work Phone: [facility] 10-26-2024 12:05-0400 Systolic blood pressure 120 mm[Hg] José Blake DO Work Phone: [facility] 08-29-2024 14:34-0400 Body mass index (BMI) [Ratio] 25.65 kg/m2 José Blake DO Work Phone: [facility] 08-29-2024 14:34-0400 Body weight 65.68 kg José Blake DO Work Phone: [facility] 08-29-2024 14:34-0400 Diastolic blood pressure 72 mm[Hg] José Blake DO Work Phone: [facility] 08-29-2024 14:34-0400 Systolic blood pressure 120 mm[Hg] José Blake DO Work Phone: [facility] 08-10-2024 14:55-0400 Body height 160 cm Noms Nurse [facility] 08-10-2024 14:55-0400 Body mass index (BMI) [Ratio] 25.18 kg/m2 Nom Nurse [facility] 08-10-2024 14:55-0400 Body weight 64.47 kg Noms Nurse [facility] 08-10-2024 14:55-0400 Diastolic blood pressure 76 mm[Hg] Noms Nurse [facility] 08-10-2024 14:55-0400 Systolic blood pressure 120 mm[Hg] Noms Nurse [facility] 05-16-2024 12:44-0500 Body weight 65.32 kg Madeleine Bundy MD Work Phone: [facility] [employer] 05-16-2024 12:44-0500 Diastolic blood pressure 78 mm[Hg] Madeleine Bundy MD Work Phone: [facility] [employer] 05-16-2024 12:44-0500 Systolic blood pressure 120 mm[Hg] Madeleine Bundy MD Work Phone: [facility] 02-08-2024 15:08-0400 Body weight 66.22 kg Madeleine Bundy MD Work Phone: [facility] [employer] 02-08-2024 15:08-0400 Diastolic blood pressure 68 mm[Hg] Madeleine Bundy MD Work Phone: [facility] [employer] 02-08-2024 15:08-0400 Systolic blood pressure 130 mm[Hg] Madeleine Bundy MD Work Phone: [facility] [employer] 05-12-2023 07:30-0500 Body height 158.75 cm Tyrell Stiles Other [facility] Other 05-12-2023 07:30-0500 Body mass index (BMI) [Ratio] 25.41 kg/m2 Tyrell Stiles Other [facility] Other 05-12-2023 07:30-0500 Body weight 64.05 kg Tyrell Stiles Other [facility] Other 05-12-2023 07:30-0500 Diastolic blood pressure 78 mm[Hg] Tyrell Stiles Other [facility] Other 05-12-2023 07:30-0500 Respiratory rate 16 /min Tyrell Stiles Other [facility] Other 05-12-2023 07:30-0500 SaO2% (BldA) [Mass fraction] 98 % Tyrell Stiles Other [facility] Other 05-12-2023 07:30-0500 Systolic blood pressure 122 mm[Hg] Tyrell Stiles Other [facility] Other 02-24-2023 12:30-0400 Body height 158.75 cm Lisandro Kuns Other [facility] Other 02-24-2023 12:30-0400 Body mass index (BMI) [Ratio] 25.2 kg/m2 Lisandro Kuns Other [facility] Other 02-24-2023 12:30-0400 Body weight 63.5 kg Lisandro Kuns Other [facility] Other 02-24-2023 12:30-0400 Diastolic blood pressure 85 mm[Hg] Lisandro Kuns Other [facility] Other 02-24-2023 12:30-0400 Respiratory rate 16 /min Lisandro Kuns Other [facility] Other 02-24-2023 12:30-0400 SaO2% (BldA) [Mass fraction] 99 % Lisandro Kuns Other [facility] Other 02-24-2023 12:30-0400 Systolic blood pressure 140 mm[Hg] Lisandro Kuns Other [facility] Other Encounters Encounter Date Encounter Type Care Provider Facility Start: 02-15-2025 End: 02-15-2025 Clinisync Result Encounter José Blake DO Work Phone: [facility] Unsolicited Start: 02-15-2025 End: 02-15-2025 Clinisync Result Encounter José Blake DO Work Phone: [facility] Unsolicited Start: 02-15-2025 End: 02-15-2025 Office outpatient visit 15 minutes Kera Li HEAVY EQUIPMENT SERVICE TECHNICIAN Work Phone: [facility] Comment on above: Third trimester preg lindsey ([facility]); 38 weeks gestation of ([facility]) Start: 02-15-2025 End: 02-15-2025 ambulatory KERA JEN Not Available Start: 02-08-2025 End: 02-08-2025 Bamboo flowsheet Kera Youssefly HEAVY EQUIPMENT SERVICE TECHNICIAN Work Phone: [facility] Start: 02-08-2025 End: 02-08-2025 Bamboo flowsheet Kera Youssefly HEAVY EQUIPMENT SERVICE TECHNICIAN Work Phone: [facility] Start: 02-08-2025 End: 02-08-2025 Clinisync Result Encounter José Blake DO Work Phone: [facility] Unsolicited Start: 02-08-2025 End: 02-08-2025 flow sheet Kera Jen HEAVY EQUIPMENT SERVICE TECHNICIAN Work Phone: [facility] Comment on above: Third trimester preg lindsey ([facility]); 37 weeks gestation of ([facility]) Start: 02-08-2025 End: 02-08-2025 ambulatory KERA JEN Not Available Start: 02-01-2025 End: 02-01-2025 Clinisync Result Encounter José Blake DO Work Phone: [facility] Unsolicited Start: 02-01-2025 End: 02-01-2025 Clinisync Result Encounter José Blake DO Work Phone: [facility] Unsolicited Start: 01-29-2025 End: 01-29-2025 Bamboo flowsheet José Blake DO Work Phone: [facility] Start: 01-29-2025 End: 01-29-2025 Bamboo flowsheet José Blake DO Work Phone: [facility] Start: 01-29-2025 End: 01-29-2025 flow sheet José Blake DO Work Phone: [facility] Comment on above: Third trimester preg lindsey ([facility]); 36 weeks gestation of ([facility]) Start: 01-29-2025 End: 01-29-2025 ambulatory [...] 01-15-2025 End: 01-15-2025 Bamboo flowsheet Kera Li HEAVY EQUIPMENT SERVICE TECHNICIAN Work Phone: [facility] Start: 01-15-2025 End: 01-15-2025 Bamboo flowsheet Kera Jen HEAVY EQUIPMENT SERVICE TECHNICIAN Work Phone: [facility] Start: 01-15-2025 End: 01-15-2025 flow sheet Kera Jen HEAVY EQUIPMENT SERVICE TECHNICIAN Work Phone: [facility] Comment on above: Third trimester preg lindsey ([facility]); 34 weeks gestation of ([facility]) Start: 01-15-2025 End: 01-15-2025 ambulatory KERA [...] flowsheet José Blake DO Work Phone: [facility] Start: 01-02-2025 End: 01-02-2025 Bamboo flowsheet José Blake DO Work Phone: [facility] Start: 01-02-2025 End: 01-02-2025 flow sheet José Blake DO Work Phone: [facility] Comment on above: Third trimester preg lindsey ([facility]); 32 weeks gestation of ([facility]); ZULMA (amniotic fluid index) borderline low Start: 01-02-2025 End: 01-02-2025 ambulatory JOSÉ BLAKE Not Available Start: 12-19-2024 End: 12-19-2024 flow sheet Nadine Galvan PA Work Phone: [facility] Comment on above: 30 weeks gestation o f ([facility]); Third trimester ([facility]); HSV infection Start: 12-19-2024 End: 12-19-2024 ambulatory NADINE GALVAN Not Available Start: 12-05-2024 End: 12-05-2024 Bamboo flowsheet José Blake DO Work Phone: [facility] Start: 12-05-2024 End: 12-05-2024 Bamboo flowsheet José Blake DO Work Phone: [facility] Start: 12-05-2024 End: 12-05-2024 flow sheet José Blake DO Work Phone: [facility] Comment on above: Third trimester preg lindsey ([facility]); 28 weeks gestation of ([facility]); HSV infection; size inconsistent with dates ([facility]) Start: 12-05-2024 End: 12-05-2024 ambulatory JOSÉ [...] on above: 26 weeks gestation o f ([facility]); Second trimester ([facility]); Elevated glucose tolerance test Start: 11-22-2024 End: 11-22-2024 ambulatory NADINE GALVAN Not Available Start: 10-26-2024 End: 10-26-2024 ambulatory JOSÉ BLAKE Not Available Start: 10-26-2024 End: 10-26-2024 flow sheet José Blake DO Work Phone: [facility] Comment on above: Second trimester pre gnancy ([facility]); 22 weeks gestation of ([facility]); Diabetes mellitus screening Start: 10-26-2024 End: [...] Start: 07-11-2024 End: 07-11-2024 flow sheet [facility] Nurse [facility] Comment on [...] Start: 03-30-2024 End: 03-30-2024 ambulatory Zita Alanis Facility:[facility] Start: 02-08-2024 End: 02-08-2024 Patient encounter status Madeleine Bundy MD Work Phone: [facility] Start: 02-08-2024 End: 02-08-2024 Periodic preventive med est patient 18-39 yrs Madeleine Bundy MD Work Phone: [facility] Comment on above: Amenorrhea (Primary Dx); Screening for malignant neoplasm of cervix; Encounter for gynecological examination without abnormal finding; Encounter for surveillance of vaginal ring hormonal contraceptive device; Missed menses Start: 01-24-2024 End: 01-24-2024 ambulatory Facility:[facility] Start: 05-12-2023 End: 05-12-2023 ambulatory Tyrell Stiles Other [facility] Other Start: 05-12-2023 Office outpatient vi sit 15 minutes Tyrell Stiles [facility] Start: 03-02-2023 End: 03-02-2023 ambulatory Lisandroteri Buitrago Facility:[facility] Start: 03-02-2023 End: 03-02-2023 ambulatory DO Lisandro Kuns Work Phone: [facility] Work Phone: Start: 03-02-2023 End: 03-02-2023 Patient encounter procedure DO Lisandro Kuns Work Phone: [facility]-X-Ray [facility] Start: 02-24-2023 End: 02-24-2023 ambulatory Lisandro Mauricios Other [employer] [facility] Other Start: 02-24-2023 Encounter for genera l adult medical examination without abnormal findings Lisandroteri Buitrago [facility] Start: 02-24-2023 Office outpatient ne w 30 minutes Lisandro Buitrago [facility] Start: 07-28-2021 End: 07-28-[address] JANES GARCIA Facility:[facility]1 Procedures Date Procedure Procedure Detail Performing Clinician Start: 02-15-2025 Urnls dip stick/tabl et rgnt non-auto w/o micrscp Kera Li HEAVY EQUIPMENT SERVICE TECHNICIAN Work Phone: Start: 02-15-2025 US OB BPP W NON-STRESS José Blake DO Work Phone: Start: 02-08-2025 US OB BPP W NON-STRESS José Blake DO Work Phone: Start: 02-08-2025 Urnls dip stick/tabl et rgnt non-auto w/o micrscp Kera Li HEAVY EQUIPMENT SERVICE TECHNICIAN Work Phone: Start: 02-01-2025 US OB BPP [...] et rgnt non-auto w/o micrscp Kera Li HEAVY EQUIPMENT SERVICE TECHNICIAN Work Phone: Start: 01-08-2025 US OB BPP [...] 03-02-2023 Plain chest X-ray DO Br ett Mauricioapurva Work Phone: Start: 03-02-2023 Plain X-ray of left shoulder DO Lisandro Kuns Work Phone: Plan of Treatment Date Care Activity Detail Author Start: 02-22-2025 End: 02-22-2025 Patient encounter procedure 02/22/2025 8:40 AM EDT Routine [facility] [address] [place] [id number] Nadine Galvan PA [address] [place] [address] [facility] Start: 02-15-2025 End: 02-15-2025 Patient encounter procedure 02/15/2025 8:50 AM EDT Routine [facility] [address] [place] [phone] Kera Li, HEAVY EQUIPMENT SERVICE TECHNICIAN [address] [place] [address] [facility] Start: 02-08-2025 End: 02-08-2025 Patient encounter procedure [facility] Comment on above: Arrived Start: 01-29-2025 End: 01-29-2026 CULTURE, GROUP B STREP WITH SUSCEPTIBLITY CULTURE, GROUP B STREP WITH SUSCEPTIBLITY Lab Routine Third trimester ([facility]) Expected: 01/29/2025, Expires: 01/29/2026 [facility] Work Phone: Comment on above: Expected: 01/29/2025 , Expires: 01/29/2026 Start: 01-29-2025 End: 01-29-2025 Patient encounter procedure [facility] Comment on above: Third trimester preg lindsey ([facility]) Start: 01-16-2025 End: 01-16-2025 Patient encounter procedure 01/16/2025 8:50 AM EDT Routine [facility] [address] [place] [address] Nadine Galvan PA [address] [place], [place] [id number] [facility] Start: 01-15-2025 End: 01-15-2025 Patient encounter procedure [facility] Comment on above: Arrived Start: 01-08-2025 Influenza vaccination [facility] Start: 01-02-2025 End: 07-05-2025 US biophysical profile w non stress test US biophysical profile w non stress test Imaging Routine ZULMA (amniotic fluid index) borderline low Expected: 01/02/2025 (Approximate), Expires: 07/05/2025 [facility] Work Phone: Comment on above: Expected: 01/02/2025 (Approximate), Expires: 07/05/2025 Start: 01-02-2025 End: 01-02-2025 Patient encounter procedure [facility] Comment on above: Arrived Start: 12-19-2024 End: 12-19-2024 Patient encounter procedure 12/19/2024 8:50 AM EDT Routine [facility] [address] [place] [phone] Nadine Galvan PA [address] [place] [address] [facility] Start: 12-19-2024 End: 12-19-2024 Professional / ancillary services management 12/19/2024 8:00 AM EDT Ancillary Procedure [facility] [address] [place] [phone] [facility] Start: 12-05-2024 End: 04-07-2025 US for US OB follow up transabdominal approach Imaging Routine size inconsistent with dates ([facility]) Expected: 12/05/2024, Expires: 04/07/2025 [facility] [...] AM EDT Routine [facility] [address] [place] [phone] Nadine Galvan PA [address] [place] [address] [place] [address] [facility] Start: 10-26-2024 End: 10-26-2025 [...] PM EDT Routine [facility] [address] [place] [phone] Nadine Galvan PA [address] [place] [address] [facility] Start: 08-29-2024 End: 08-29-2024 Patient encounter procedure [facility] Comment on above: Arrived Start: 07-27-2024 End: 07-27-2024 ambulatory 07/27/2024 10:30 AM EDT Initial [facility] [address] [place] [address] Madeleine Bundy MD [address] [place] [address] [facility] Start: 07-17-2024 End: 07-17-2024 Patient encounter procedure 07/17/2024 12:30 PM EDT [facility] [address] [place] [phone] Madeleine Bundy MD [address] [place] [address] [facility] Start: 07-17-2024 End: 07-17-2024 Professional / ancillary services management 07/17/2024 8:30 AM EDT [facility] [address] [place] [address] [facility] Start: 07-11-2024 End: 07-11-2025 Bacteria identified in Urine by Culture Urine culture Microbiology Routine Encounter for supervision of normal first in first trimester Expected: 07/11/2024, Expires: 07/11/2025 [facility] Comment on above: Expected: 07/11/2024 , Expires: 07/11/2025 Start: 07-11-2024 End: 07-11-2025 BEACON CARRIER SCREEN;14 GENES BEACON CARRIER SCREEN;14 GENES Lab Routine Screening for genetic disease carrier status Expected: 07/11/2024 (Approximate), Expires: 07/11/2025 [facility] Comment on above: Expected: 07/11/2024 (Approximate), Expires: 07/11/2025 Start: 07-11-2024 End: 07-11-2025 Blood type and Indirect antibody screen panel - Blood Type and screen Lab Routine Encounter for supervision of normal first in first trimester Expected: 07/11/2024, Expires: 07/11/2025 [facility] Comment on above: Expected: 07/11/2024 , Expires: 07/11/2025 Start: 07-11-2024 End: 07-11-2025 CBC W Auto Differential panel - Blood CBC and differential Lab Routine Encounter for supervision of normal first in first trimester Expected: 07/11/2024, Expires: 07/11/2025 [facility] Comment on above: Expected: 07/11/2024 , Expires: 07/11/2025 Start: 07-11-2024 End: 07-11-2025 DRUG SCREEN 17 W/CONF, UR DRUG SCREEN 17 W/CONF, UR Lab Routine Encounter for drug screening Expected: 07/11/2024, Expires: 07/11/2025 [facility] Comment [...] , Expires: 07/11/2025 Start: 07-11-2024 End: 07-11-2025 [id number] PLUS Core+SCA [id number] PLUS Core+SCA Lab Routine Encounter for screening for chromosomal anomalies Expected: 07/11/2024 (Approximate), Expires: 07/11/2025 [facility] Comment on above: Expected: 07/11/2024 (Approximate), Expires: 07/11/2025 Start: 07-11-2024 End: 07-11-2025 Reagin Ab [Presence] in Serum by RPR RPR Lab Routine Encounter for supervision of normal first in first trimester Expected: 07/11/2024, Expires: 07/11/2025 [facility] Comment on above: Expected: 07/11/2024 , Expires: 07/11/2025 Start: 07-11-2024 End: 07-11-2025 Rubella antibody, IgG Rubella antibody, IgG Lab Routine Encounter for supervision of normal first in first trimester Expected: 07/11/2024, Expires: 07/11/2025 [facility] Comment on above: Expected: 07/11/2024 , Expires: 07/11/2025 Start: 07-11-2024 End: 07-11-2025 Urinalysis complete panel - Urine Urinalysis with microscopic Lab Routine Encounter for supervision of normal first in first trimester Expected: 07/11/2024, Expires: 07/11/2025 [facility] Work Phone: Comment on above: Expected: 07/11/2024 , Expires: 07/11/2025 Start: 05-16-2024 End: 05-16-2025 Cortisol Cortisol Lab Routine Hormone imbalance Expected: 05/16/2024, Expires: 05/16/2025 [facility] Comment on above: Expected: 05/16/2024 , Expires: 05/16/2025 Start: 05-16-2024 End: 05-16-2025 DHEA-sulfate DHEA-sulfate Lab Routine Hormone imbalance Expected: 05/16/2024, Expires: 05/16/2025 [facility] Comment on above: Expected: 05/16/2024 , Expires: 05/16/2025 Start: 05-16-2024 End: 05-16-2025 Estradiol Estradiol Lab Routine Hormone imbalance Expected: 05/16/2024, Expires: 05/16/2025 [facility] Comment on above: Expected: 05/16/2024 , Expires: 05/16/2025 Start: 05-16-2024 End: 05-16-2025 Estrone Estrone Lab Routine Hormone imbalance Expected: 05/16/2024, Expires: 05/16/2025 [facility] Comment on above: Expected: 05/16/2024 , Expires: 05/16/2025 Start: 05-16-2024 End: 05-16-2025 Follicle stimulating hormone Follicle stimulating hormone Lab Routine Hormone imbalance Thyroid disorder screen Expected: 05/16/2024, Expires: 05/16/2025 [facility] Comment on above: Expected: 05/16/2024 , Expires: 05/16/2025 Start: 05-16-2024 End: 05-16-2025 Insulin, fasting Insulin, fasting Lab Routine Amenorrhea Missed menses Hormone imbalance Expected: 05/16/2024, Expires: 05/16/2025 [facility] Comment on above: Expected: 05/16/2024 , Expires: 05/16/2025 Start: 05-16-2024 End: 05-16-2025 Luteinizing hormone Luteinizing hormone Lab Routine Hormone imbalance Thyroid disorder screen Expected: 05/16/2024, Expires: 05/16/2025 [facility] Comment on above: Expected: 05/16/2024 , Expires: 05/16/2025 Start: 05-16-2024 End: 05-16-2025 Progesterone Progesterone Lab Routine Hormone imbalance Expected: 05/16/2024, Expires: 05/16/2025 [facility] Comment on above: Expected: 05/16/2024 , Expires: 05/16/2025 Start: 05-16-2024 End: 05-16-2025 Sex hormone binding globulin Sex hormone binding globulin Lab Routine Hormone imbalance Expected: 05/16/2024, Expires: 05/16/2025 [facility] Comment on above: Expected: 05/16/2024 , Expires: 05/16/2025 Start: 05-16-2024 End: 05-16-2025 Testosterone, free, total Testosterone, free, total Lab Routine Hormone imbalance Expected: 05/16/2024, Expires: 05/16/2025 [facility] Comment on above: Expected: 05/16/2024 , Expires: 05/16/2025 Start: 05-16-2024 End: 05-16-2025 Thyrotropin [Units/volume] in Serum or Plasma TSH Lab Routine Hormone imbalance Thyroid disorder screen Expected: 05/16/2024, Expires: 05/16/2025 [facility] Work Phone: Comment on above: Expected: 05/16/2024 , Expires: 05/16/2025 Start: 05-16-2024 End: 05-16-2025 Vitamin D 1,25 dihydroxy Vitamin D 1,25 dihydroxy Lab Routine Hormone imbalance Expected: 05/16/2024, Expires: 05/16/2025 [facility] Comment on above: Expected: 05/16/2024 , Expires: 05/16/2025 Start: 05-16-2024 End: 05-16-2024 Patient encounter procedure 05/16/2024 12:30 PM EST Office Visit [facility] [address] [place] [address] Madeleine Bundy MD [address] [place] [address] [facility] Start: 02-08-2024 End: 02-07-2025 Follicle stimulating hormone Follicle stimulating hormone Lab Routine Amenorrhea Expected: 02/08/2024 (Approximate), Expires: 02/07/2025 [facility] Comment on above: Expected: 02/08/2024 (Approximate), Expires: 02/07/2025 Start: 01-09-2024 Influenza vaccination Influenza Vacc ine (#1) [facility] hCG, qualitative hCG, qualitativ e Lab Routine Amenorrhea Ordered: 02/08/2024 [facility] Comment on above: Ordered: 02/08/2024 Hemoglobin A1c/Hemoglobin.total in Blood Hemoglobin A1c Lab Routine with uncertain dates, antepartum Ordered: 08/10/2024 [facility] Work Phone: Comment on above: Ordered: 08/10/2024 Luteinizing hormone Luteinizing hormone Lab Routine Amenorrhea Ordered: 02/08/2024 [facility] Comment on above: Ordered: 02/08/2024 Progesterone Progesterone Lab Routine Amenorrhea Ordered: 02/08/2024 [facility] Comment on above: Ordered: 02/08/2024 SENDOUT TEST MISCELLANEOUS [facility] SENDOUT TEST MISCELLANEOUS [facility] Lab Routine Screening for malignant neoplasm of cervix Encounter for gynecological examination without abnormal finding Ordered: 02/08/2024 [facility] Work Phone: Comment on above: Ordered: 02/08/2024 Testosterone, free, total Testosterone, free, total Lab Routine Amenorrhea Ordered: 02/08/2024 [facility] Comment on above: Ordered: 02/08/2024 Immunizations Immunization Date Immunization Notes Care Provider Flako [email or web address] 09-25-2020 COVID-19 Vaccine Moderna - Documentation Purposes Only Lisandro Buitrago Other [facility] Other 08-21-2020 COVID-19 Vaccine Moderna - Documentation Purposes Only Lisandro Buitrago Other [facility] Other Payers Date Payer Category Payer Unknown [id number] 2023 Private Health Insurance [id number] 2023 Private Health Insurance [id number] 2023 Unknown [id number] 2. [id number] 1995 Unknown [id number] 2.16.84 0.1.348604.3.579.2.593 1995 Unknown [id number] 2.16.8 40.1.389312.3.579.2.9 1995 Unknown [id number] 2.16.8 40.1.642145.3.579.2.9 1995 Unknown [id number] 2.16.8 40.1.667740.3.579.2.9 1995 Unknown [id number] 2.16.8 40.1.823890.3.579.2.1259 1995 Unknown [id number] 2.16.8 40.1.980272.3.579.2.9 1995 Unknown [id number] 2.16.8 40.1.521630.3.579.2.9 1995 Unknown [id number] 2.16.8 40.1.397893.3.579.2.1258 1995 Unknown [id number] 2.16.8 40.1.907677.3.579.2.9 1995 Unknown [id number] 2.16.8 40.1.337775.3.579.2.1258 1995 Unknown [id number] 2.16.8 40.1.300516.3.579.2.9 1995 Unknown [id number] 2.16.8 40.1.478866.3.579.2.1258 1995 Unknown [id number] 2.16.84 0.1.213539.3.579.2.9 1995 Unknown [id number] 2.16.84 0.1.759337.3.579.2.1258 1995 Unknown [id number] 2.16.84 0.1.752010.3.579.2.9 1995 Unknown [id number] 2.16.84 0.1.841390.3.579.2.9 1995 Unknown [id number] 2.16.84 0.1.757776.3.579.2.9 1995 Unknown [id number] 2.16.84 0.1.897836.3.579.2.9 1995 Unknown [id number] 2.16.8 40.1.526986.3.579.2.718 1959 Self-pay Unknown [id number] Unknown [id number] 2.16.8 40.1.684014.3.579.2.531 Social History Date Type Detail Facility Start: 02-08-2024 End: 05-16-2024 Sex Assigned At [facility] [employer] Other Start: 1995 Sex Assigned At Female [facility] Start: 05-15-2023 Tobacco smoking stat [facility] Never smoked tobacco [facility] [...] Personal health goal Clinical Notes 02-24-2023 to 02-15-2025 Kera Li NP - 02/15/2025 8:50 AM Polo Li NP - 02/08/2025 8:40 AM Polo Li NP - 01/29/2025 8:30 AM Justine Ambriz LPN - 01/15/2025 8:50 AM EDTPatient Instructions Note Date & Type Note Facility 02-15-2025 History of Presen t illness Narrative Reason [...] nursing note reviewed. Exam conducted with a budget counselor present. Vitals: Estimated body mass index is 31.53 kg/m as calculated from the following: Height as of 25: 5' 3 . Weight as of this encounter: 178 lb. BP: 132/86 Patient's last menstrual period was 05/09/2024 (exact date). ASSESSMENT & PLAN ICD-10-CM 1. Third trimester ([facility]) Z34.93 POCT urinalysis dipstick manually resulted 2. 38 weeks gestation of ([facility]) Z3A.38 Return OB: Patient presents today for [...] by Kera Li NP on behalf of: Kera Li NP documented in this encounter [facility] 02-08-2025 History of Presen t illness Narrative [...] nursing note reviewed. Exam conducted with a budget counselor present. Vitals: Estimated body mass index is 29.98 kg/m as calculated from the following: Height as of 08/10/24: 5' 3 . Weight as of 01/29/25: 169 lb 4 oz. BP: Patient's last menstrual period was 05/09/2024 (exact date). ASSESSMENT & PLAN ICD-10-CM 1. Third trimester ([facility]) Z34.93 POCT urinalysis dipstick manually resulted 2. 37 weeks gestation of ([facility]) Z3A.37 Return OB: Patient presents today [...] Kera Li NP documented in this encounter [facility] 01-29-2025 History of Presen t illness [...] nursing note reviewed. Exam conducted with a budget counselor present. Vitals: Estimated body mass index is 29.98 kg/m as calculated from the following: Height as of 08/10/24: 5' 3 . Weight as of this encounter: 169 lb 4 oz. BP: 128/86 Patient's last menstrual period was 05/09/2024 (exact date). ASSESSMENT & PLAN ICD-10-CM 1. Third trimester ([facility]) Z34.93 POCT urinalysis dipstick manually resulted CULTURE, GROUP B STREP WITH SUSCEPTIBLITY CULTURE, GROUP B STREP WITH SUSCEPTIBLITY 2. 36 weeks gestation of ([facility]) Z3A.36 Return OB: Patient presents today [...] José Lozano DO documented in this encounter [facility] 01-15-2025 History of Presen t illness [...] nursing note reviewed. Exam conducted with a budget counselor present. Vitals: Estimated body mass index is 29.85 kg/m as calculated from the following: Height as of 25: 5' 3 . Weight as of this encounter: 168 lb 8 oz. BP: 132/72 Patient's last menstrual period was 05/09/2024 (exact date). ASSESSMENT & PLAN ICD-10-CM 1. Third trimester ([facility]) Z34.93 POCT urinalysis dipstick manually resulted 2. 34 weeks gestation of ([facility]) Z3A.34 Patient presents today for [...] Kera Li NP documented in this encounter [facility] 01-02-2025 History of Presen t illness [...] nursing note reviewed. Exam conducted with a budget counselor present. Vitals: Estimated body mass index is 28.96 kg/m as calculated from the following: Height as of 08/10/24: 5' 3 . Weight as of this encounter: 163 lb 8 oz. BP: 120/76 Patient's last menstrual period was 05/09/2024 (exact date). ASSESSMENT & PLAN ICD-10-CM 1. Third trimester ([facility]) Z34.93 POCT urinalysis dipstick manually resulted 2. 32 weeks gestation of ([facility]) Z3A.32 Return OB: Patient presents today [...] José Lozano DO documented in this encounter [facility] 12-19-2024 History of Presen t illness [...] PLAN ICD-10-CM 1. 30 weeks gestation of ([facility]) Z3A.30 POCT urinalysis dipstick manually resulted 2. Third trimester ([facility]) Z34.93 POCT urinalysis dipstick manually [...] Zaldivar documented in this encounter [facility] 12-05-2024 History of Presen t illness [...] nursing note reviewed. Exam conducted with a budget counselor present. Vitals: Estimated body mass index is 28.52 kg/m as calculated from the following: Height as of 08/10/24: 5' 3 . Weight as of this encounter: 161 lb. BP: 120/76 Patient's last menstrual period was 05/09/2024 (exact date). ASSESSMENT & PLAN ICD-10-CM 1. Third trimester ([facility]) Z34.93 CANCELED: POCT urinalysis dipstick manually resulted 2. 28 weeks gestation of ([facility]) Z3A.28 3. 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 size inconsistent with dates ([facility]) O26.849 US OB follow up [...] José Lozano DO documented in this encounter [facility] 11-22-2024 History of Presen t illness [...] Esmer Felixp Polycystic ovary syndrome Mother Esmer Felixp Thyroid disease Mother Esmer Felixp Polycystic ovary syndrome Sister Breast cancer Maternal [...] PLAN ICD-10-CM 1. 26 weeks gestation of ([facility]) Z3A.26 POCT urinalysis dipstick manually resulted 2. Second trimester ([facility]) Z34.92 POCT urinalysis dipstick manually [...] Zaldivar documented in this encounter [facility] 10-26-2024 History of Presen t illness [...] ASSESSMENT & PLAN ICD-10-CM 1. Second trimester ([facility]) Z34.92 POCT urinalysis dipstick manually resulted 2. 22 weeks gestation of ([facility]) Z3A.22 3. Diabetes mellitus screening [...] José Lozano DO documented in this encounter [facility] 08-29-2024 History of Presen t illness [...] iGlda Felixp Lung cancer Paternal Grandmother Gilda Sanches Colon [...] nursing note reviewed. Exam conducted with a budget counselor present. Vitals: Estimated body mass index [...] José Lozano DO documented in this encounter [facility] 08-10-2024 History of Presen t illness [...] and concerns were answered. Patient was given Nucla labs to be completed with Hgb A1C. [...] LPN documented in this encounter [facility] 07-11-2024 History of Presen t illness [...] AM documented in this encounter [facility] 05-16-2024 History of Presen t illness Narrative Images from the original note were not included. Madeleine Bundy MD Obstetrics and Gynecology Patient: Alondra Beaver : 1995 (28 y.o.) Exam Date: 05/16/2024 Reason for Visit - Chief Complaint Patient presents with Follow-up Follow up for Amenorrhea, missed menses, and family planning. Stopped [employer] in 10/2023. 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 Exam conducted with a budget counselor present. Assessment/Plan ICD-10-CM 1. Amenorrhea N91.2 [...] Madeleine Bundy MD documented in this encounter [facility] 05-16-2024 Instructions Madeleine Bundy MD - [...] test. documented in this encounter [facility] 02-08-2024 History of Presen t illness [...] Madeleine Bundy MD documented in this encounter [facility] 05-12-2023 Evaluation note Encounter Date Diagnosis [...] and trigger point injections can be done. [facility] Other 10-18-2023 Evaluation note* Encounter Date Diagnosis Assessment Notes Treatment Notes Treatment Clinical Notes Feb, Encounter to establish care (ICD-10 - Z76.89) Patient appears to be in good health upon examination. She is here to establish care for annual physcial for her employment. 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 Feb, Wellness examination (ICD-10 [...] Stress test ordered to rule out abnormalities. Melty Other Evaluation noteNo assessment information available [facility] Work Phone: Evaluation note* Diagnosis Amenorrhea- [...] note* Diagnosis Third trimester ([facility]) state, incidental 38 weeks gestation of ([facility]) [facility] - [facility]* Type Description Date Medical History Left elbow dislocation 2011 [facility] Other Summary Purpose Family History No Family [...] AUTHOR AUTHOR'S ORGANIZ ATION 05/24/2023 [facility] DATE CREATED AUTHOR AUTHOR'S ORGANIZ ATION 02/20/2024 [facility] DATE CREATED AUTHOR AUTHOR'S ORGANIZ ATION 02/17/2025 [facility] EPIC DATE CREATED AUTHOR AUTHOR'S ORGANIZ ATION 02/20/2025 [facility] REASON FOR VISIT (unrecogniz ed section and content) Reason Comments Gynecologic Exam Reason Comments Follow-up Reason Comments Initial Visit Nurse Visit Reason Comments Amenorrhea Reason Comments Routine Visit Care Teams (unrecognized sec tion and content) Team Status: Inactive Member Role Status Dates Lisandro Buitrago DO Attending Provider Active Rehabilitation Aide Relationship Specialty Start Date End Date Unallocated, Torrey Horn MD [facility], [id number] [place] [address] PCP - General Family Medicine 06/23/23 Rehabilitation Aide Relationship Specialty Start Date End Date Unallocated, Torrey Horn MD [address] [place], [place] [address] [address] PCP - General Family Medicine 06/23/23 Rehabilitation Aide Relationship Specialty Start Date End Date Unallocated, Torrey Horn MD [address] [place] [address] PCP - General Family Medicine 06/23/23 Rehabilitation Aide Relationship Specialty Start Date End Date Unallocated, Torrey Horn MD [address] [place] [address] PCP - General Family Medicine 06/23/23 Rehabilitation Aide Relationship Specialty Start Date End Date Unallocated, Torrey Horn MD [address] [place] [address] PCP - General Family Medicine 06/23/23 Rehabilitation Aide Relationship Specialty Start Date End Date Unallocated, Torrey Horn MD [address] [place] [address] PCP - General Family Medicine 06/23/23 Rehabilitation Aide Relationship Specialty Start Date End Date Unallocated, Torrey Horn MD [address] [place] [address] PCP - General Family Medicine 06/23/23 Rehabilitation Aide Relationship Specialty Start Date End Date Unallocated, Torrey Horn MD [address] [place] [address] PCP - General Family Medicine 06/23/23 Rehabilitation Aide Relationship Specialty Start Date End Date Unallocated, Torrey Horn MD [address] [place] [address] PCP - General Family Medicine 06/23/23 Rehabilitation Aide Relationship Specialty Start Date End Date Unallocated, Torrey Horn MD [address] [place] [address] PCP - General Family Medicine 06/23/23 Rehabilitation Aide Relationship Specialty Start Date End Date Unallocated, Torrey Horn MD [address] [place] [address] PCP - General Family Medicine 06/23/23 Goals [...] BE BASED ON THE PRIMARY CLINICAL RECORDS. [employer] [facility]. provides no warranty or guarantee of the accuracy or completeness of information in this document.
[2025-02-22 07:30] VITALS: BP 129/80; PULSE 96
== END 2025-02-22 07:55 | disposition home or self-care (01) ==
LOC: US 07:04 → FBC 07:06
PROVIDERS: PCP Family Medicine; Visit Provider Obstetrics & Gynecology
DX: O26.893 Other specified pregnancy related conditions, third trimester (principal); Z3A.39 39 weeks gestation of pregnancy
CPT/HCPCS: 76818

== ENCOUNTER 2025-03-01 07:11 | Outpatient (OUT) | payer OTHER, SELFPAY ==
--- OUTSIDE RECORDS SUMMARY | 2025-02-15 08:50 | XMS_ITS | Encounter Summary ---
Author Organization [facility] Address [address] [place] [address] Care Team Providers Care Summer Counselor Name Role Phone Unallocated, [facility] Provider [facility] Reason for Visit * ReasonCommentsRoutine Visit Encounter Details DateTypeDepartmentCare Team (Latest Contact Info)Tpavjcdhwid57/09/2025 8:50 AM EDTRoutine NOMRitchie Peng OBSOFÍA [address] [place] [address] Rosaura Li, LIBBY [address] [place] [address] Third trimester ([facility]); 38 weeks gestation of ([facility]) Social History Tobacco UseTypesPacks/DayYears UsedDateSmoking Tobacco: NeverSmokeless Tobacco: NeverAlcohol UseStandard Drinks/WeekCommentsNot Currently0 (1 standard drink = 0.6 oz pure alcohol)caffeine intake: rareAUDIT-CAnswerDate RecordedQ1: How often do you have a drink containing alcohol?Monthly or less02/08/2024Q2: How many drinks containing alcohol do you have on a typical day when you are drinking?1 or Q3: How often do you have six or more drinks on one occasion?Less than fnjsdne46/01/2024PHQ-2AnswerDate RecordedPatient Health Questionnaire-2 Bxhze473Estimated Date of RehlowtsFpivkrxgWlk78/20/2025Based on Ultrasound, FHR- 173Sex and Gender InformationValueDate RecordedSex Assigned at BirthNot on fileLegal MrzSkdpoa18/06/2024 11:24 AM ESTGender IdentityNot on file Sexual OrientationNot on fileOccupationIndustryJob Start DateJob End DateNot on fileNot on fileNot on fileNot on filedocumented as of this encounter Last Filed Vital Signs Vital SignReadingTime TakenCommentsBlood Adwjvunw734/8610 8:49 AM EDT Pulse--Temperature--Respiratory Rate--Oxygen Saturation--Inhaled Oxygen Concentration--Clolrh80.7 kg (178 lb)02/15/2025 8:49 AM EDTHeight--Body Mass Index31.5304 2:55 PM EDTdocumented in this encounter Progress Notes * Rosaura Li NP - 02/15/2025 8:50 AM EDT Reason for Appointment: Patient [...] nursing note reviewed. Exam conducted with a court stenographer present. Vitals: Estimated body mass index is 31.53 kg/m?? as calculated from the following: Height as of 08/10/24: 5' 3 . Weight as of this encounter: 178 lb. BP: 132/86 Patient's last menstrual period was 05/09/2024 (exact date). ASSESSMENT & PLAN ICD-10-CM 1. Third trimester ([facility]) Z34.93 POCT urinalysis dipstick manually resulted 2. 38 weeks gestation of ([facility]) Z3A.38 Return OB: Patient presents today for a routine obstetrics appointment. Patient is currently 38w3d . Patient states she is doing well but has complaints of being tired due to current . Patient has verbalizes frequent movement. labor precautions was discussed/given and patient was instructed to perform kick counts three times a day. Orders Placed This Encounter Procedures POCT urinalysis dipstick manually resulted Follow Up: Patient is to return to office in 1 week for routine OB appointment. Documented by Rosaura Li NP on behalf of: Rosaura Li NP documented in this encounter Plan of Treatment DateTypeDepartmentCare Team (Latest Contact Info)Yxwmgiwpkec21/23/2025 8:40 AM EDTRoutine [facility] Danish MONTANO [address] [place] [phone] Nadine Gurrola PA [address] [place], [place] [id number] documented as of this encounter Goals GoalPatient Goal TypeAssociated ProblemsRecent ProgressPatient-Stated?Author Reminders Care PlanOB RemindersJennifer Fatima RNdocumented as of this encounter Procedures Procedure NamePriorityDate/TimeAssociated DiagnosisCommentsPOCT URINALYSIS SICDUADWLrizziz16/09/2025 8:53 AM EDT Third trimester ([facility]) documented in this encounter Results * (ABNORMAL) POCT urinalysis dipstick manually resulted (02/15/2025 8:53 AM EDT) ComponentValueRef RangeTest MethodAnalysis TimePerformed AtPathologist SignatureColor, UAYellowClarity, UAClearGlucose, UANegativeNegative - 2000(110) ++++ mg/dLBilirubin, UANegativeNegative - 4(70) +++ mg/dLKetones, UA NegativeNegative - 160(16) ++++ mg/dLSpec Grav, UA1.0101 - 1.03Blood, UA NegativeNegative - 50 Mark/mcLpH, UA6.05 - 9Protein, UANegativeNegative - 2000(20) ++++ mg/dLUrobilinogen, UA0.20.2 - 12 mg/dLLeukocytes, UAPositive Negative - 500+++ Mahsa/mcLComment:1+Nitrite, UANegativeNegative - Positive Specimen (Source)Anatomical Location / LateralityCollection Method / Volume Collection TimeReceived UcadLmvky02/09/2025 8:53 AM EDT Narrative Authorizing ProviderResult TypeResult StatusRosaura Li NPPOINT OF CARE TEST ENTER/EDIT ORDERABLESFinal Result documented in this encounter Visit Diagnoses Diagnosis Third trimester ([facility]) state, incidental 38 weeks gestation of ([facility]) documented in this encounter Additional Health Concerns Active ProblemsNoted DateDiagnosed DateOB Huxgrghzh58/04/2025 documented as of this encounter Care Teams Team MemberRelationshipSpecialtyStart DateEnd Date Unallocated, Noms Provider, [address] [place] [id number] PCP - GeneralFamily Medicine06/23/23documented as of this encounter
--- OUTSIDE RECORDS SUMMARY | 2025-02-22 08:40 | XMS_ITS | Encounter Summary ---
Author Organization [facility] Address [address] [place] [address] Care Team Providers Care Restaurant Cashier Name Role Phone Unallocated, [facility] Provider [facility] Reason for Visit * ReasonCommentsRoutine Visit Encounter Details DateTypeDepartmentCare Team (Latest Contact Info)Wpxmmaqojzk04/16/2025 8:40 AM EDTRoutine [facility] Danish MONTANO [address] [place] [phone] Nadine Gurrola PA [address] [place], [place] [phone] Third trimester ([facility]); 39 weeks gestation of ([facility]) Social History Tobacco UseTypesPacks/DayYears UsedDateSmoking Tobacco: NeverSmokeless [...] or more drinks on one occasion?Less than jyvsawx2602/08/2024HQ-2AnswerDate RecordedPatient Health Questionnaire-2 Hogyr295Estimated Date of UsuqtjbrJiecymprZty88/20/2025Based on Ultrasound, FHR- 173Sex and Gender InformationValueDate RecordedSex Assigned at BirthNot on fileLegal NbuSwxdvr73/06/2024 11:24 AM ESTGender IdentityNot on file Sexual OrientationNot on fileOccupationIndustryJob Start DateJob End DateNot on fileNot on fileNot on fileNot on filedocumented as of this encounter Last Filed Vital Signs Vital SignReadingTime TakenCommentsBlood Fyfyicmn110/8810 8:34 AM EDT Pulse--Temperature--Respiratory Rate--Oxygen Saturation--Inhaled Oxygen Concentration--Wpiisp96.9 kg (176 lb 1.9 oz)02/22/2025 8:34 AM EDTHeight--Body Mass Index31. 2:55 PM EDTdocumented in this encounter Progress Notes * LIZA Zaldivar - 02/22/2025 8:40 AM EDT Reason for Appointment: Patient ID: Angelique Carlos is a 29 y.o. female who presents for Routine Visit Patient presents today for Return OB appointment. MEDICATIONS Current Outpatient Medications Medication Instructions Vit-Fe Fumarate-FA ( PO) Take by mouth ALLERGIES Allergies[1] PROBLEMS Active Ambulatory Problems Diagnosis Date Noted No Active Ambulatory Problems Resolved Ambulatory Problems Diagnosis Date Noted No Resolved Ambulatory Problems Past Medical History: Diagnosis Date HPV (human papilloma virus) infection Vaccine for VZV (varicella-zoster virus) HISTORY PAST MEDICAL HISTORY SOCIAL HISTORY Medical History[2] Social History Tobacco Use Smoking status: Never Smokeless tobacco: Never Vaping Use Vaping status: Never Used Substance Use Topics Alcohol use: Not Currently Comment: caffeine intake: rare Drug use: Never FAMILY HISTORY Family History[3] SURGICAL HISTORY Surgical History[4] REVIEW OF SYSTEMS Review of Systems: Review [...] reviewed. Vitals: Estimated body mass index is 31.2 kg/m?? as calculated from the following: Height as of 08/10/24: 5' 3 . Weight as of this encounter: 176 lb 1.9 oz. BP: 130/88 Patient's last menstrual period was 05/09/2024 (exact date). ASSESSMENT & PLAN ICD-10-CM 1. Third trimester ([facility]) Z34.93 2. 39 weeks gestation of ([facility]) Z3A.39 POCT urinalysis dipstick manually resulted Return OB: Patient presents today for a routine obstetrics appointment. Patient is currently 39w3d . Patient states she is doing well [...] LIZA Zaldivar on behalf of: LIZA Zaldivar [1] No Known Allergies [2] Past Medical History: Diagnosis Date HPV (human papilloma virus) infection history Vaccine for VZV (varicella-zoster virus) [3] Family History Problem Relation Name Age of [...] Skyler Walp Cancer Paternal Grandfather Skyler Walp [4] Past Surgical History: Procedure Laterality Date WISDOM TOOTH EXTRACTION documented in this encounter Plan of Treatment DateTypeDepartmentCare Team (Latest Contact Info)Wnbdbwjpsdz81/23/2025 8:40 AM EDTRoutine [facility] Danish OBSOFÍA [address] [place] [phone] Nadine Gurrola PA [address] [place], [place] [phone] documented as of this encounter Goals GoalPatient Goal TypeAssociated ProblemsRecent ProgressPatient-Stated?Author Reminders Care PlanOB RemindersJennifer Fatima, RICHARDdocumented as of this encounter Procedures Procedure NamePriorityDate/TimeAssociated DiagnosisCommentsPOCT URINALYSIS XRUJOHDASqzmkij16/16/2025 8:46 AM EDT 39 weeks gestation of ([facility]) documented in this encounter Results * (ABNORMAL) POCT urinalysis dipstick manually resulted (02/22/2025 8:46 AM EDT) ComponentValueRef RangeTest MethodAnalysis TimePerformed AtPathologist SignatureColor, UAYellowClarity, UAClearGlucose, UANegativeNegative - 2000(110) ++++ mg/dLBilirubin, UANegativeNegative - 4(70) +++ mg/dLKetones, UA NegativeNegative - 160(16) ++++ mg/dLSpec Grav, UA1.0051 - 1.03Blood, UA NegativeNegative - 50 Mark/mcLpH, UA7.05 - 9Protein, UANegativeNegative - 2000(20) ++++ mg/dLUrobilinogen, UA2.00.2 - 12 mg/dLLeukocytes, UA2+Negative - 500+++ Mahsa/mcLNitrite, UANegativeNegative - PositiveSpecimen (Source) Anatomical Location / LateralityCollection Method / VolumeCollection Time Received KgbpQkwwh00/16/2025 8:46 AM EDT Narrative Authorizing ProviderResult TypeResult StatusNadine Gurrola PAPOINT OF CARE TEST ENTER/EDIT ORDERABLESFinal Result documented in this encounter Visit Diagnoses Diagnosis Third trimester ([facility] state, incidental 39 weeks gestation of ([facility]) documented in this encounter Additional Health Concerns Active ProblemsNoted DateDiagnosed DateOB Perizrhvj19/04/2025 documented as of this encounter Care Teams Team MemberRelationshipSpecialtyStart DateEnd Date Unallocated, Noms Provider, [address] [place] [address] PCP - GeneralFamily Medicine06/23/23documented as of this encounter
--- OUTSIDE RECORDS SUMMARY | 2025-03-01 07:15 | XMS_ITS | Clinical Summary ---
Author Organization [facility] Address [address] [place] [address] Care Team Providers Care Intake Assessor Name Role Phone Unallocated, Noms Provider Primary Care Provi ulysses Allergies No known active allergies Medications MedicationSigDispense QuantityRefillsLast FilledStart DateEnd DateStatus Vit-Fe Fumarate-FA ( PO) Take by mouthActive Encounters DateTypeDepartmentCare DkcfBhdcypuacqu41/16/2025 8:40 AM EDTRoutine [facility] [address] [place] [address] Nadine Gurrola PA Third trimester ([facility]); 39 weeks gestation of ([facility])5Bamboo flowsheet [facility] [address] [place] [address] Nadine Gurrola PA 02/15/2025 8:50 AM EDTRoutine [facility] [address] [place] [address] [place] [address] Rosaura Li NP Third trimester ([facility]); 38 weeks gestation of ([facility])5Clinisync Result Encounter NOMS External Department Unsolicited Rocio Lozano DO 02/08/2025 8:40 AM EDTRoutine [facility] [address] [facility] [facility] [place] [address] Rosaura Li NP Third trimester ([facility]); 37 weeks gestation of ([facility])02/08/2025linisync Result Encounter NOMS External Department Unsolicited Blake, Rocio, DO 02/08/2025amboo flowsheet [facility] [address] [place] [address] Rosaura Li NP 02/07/20252452Swmdkv83/25/2025linisync Result Encounter NOMS External Department Unsolicited Blake, Rocio, DO 01/29/2025 8:30 AM EDTRoutine [facility] [address] [place] [address] Rocio Lozano, DO Third trimester ([facility]); 36 weeks gestation of ([facility])01/29/2025amboo flowsheet [facility] [address] [place] [address] Rocio Lozano, DO 01/25/2025linisync Result Encounter NOMS External Department Unsolicited BlakeGiy, DO 01/18/2025linisync Result Encounter NOMS External Department Unsolicited Blake, Rocio, DO 01/15/2025 8:50 AM EDTRoutine [facility] [address] [place] [address] Roasura Li NP Third trimester ([facility]); 34 weeks gestation of ([facility])01/15/2025amboo flowsheet [facility] [address] [place] [address] Rosaura Li NP 01/08/2025linisync Result Encounter NOMS External Department Unsolicited Blake, Rocio, DO 01/04/2025linisync Result Encounter NOMS External Department Unsolicited Blake Rocio, DO 01/02/2025 8:30 AM EDTRoutine [facility] [address] [place] [address] Rocio Lozano, Third trimester ([facility]); 32 weeks gestation of ([facility]); ZULMA (amniotic fluid index) borderline low01/02/2025amboo flowsheet [facility] [address] [place] [address] Rocio Lozano, 01/02/20256831Yztmhh48/12/2025 8:50 AM EDTRoutine [facility] [address] [place] [address] Nadine Gurrola PA 30 weeks gestation of ([facility]); Third trimester ([facility]); HSV obcmltzat85/12/2025 8:00 AM EDTAncillary Procedure [facility] [address] [place] [address] size inconsistent with dates ([facility])12/19/2024Telephone [facility] [address] [place] [address] Dea Olivares LPN 12/05/2024 9:00 AM EDTRoutine [facility] [address] [place] [address] Rocio Lozano, Third trimester ([facility]); 28 weeks gestation of ([facility]); HSV infection; size inconsistent with dates ([facility])12/05/2024amboo flowsheet [facility] [address] [place] [address] Rocio Lozano, 12/04/2024Travelfrom Last 3 Months Family History Medical HistoryRelationNameCommentsHypothyroidismMaternal GrandfatherTommy SwineyThyroid diseaseMaternal GrandfatherTommy SwineyBreast cancerMaternal GrandmotherCarolyn SwineyHypothyroidismMotherDonna WalpPolycystic ovary syndrome MotherDonna WalpThyroid diseaseMotherDonna WalpCancerPaternal GrandfatherMahlon WalpColon cancerPaternal GrandfatherMahlon WalpBreast cancerPaternal Grandmother Madelon WalpLung cancerPaternal GrandmotherMadelon WalpPolycystic ovary syndrome SisterRelationNameStatusCommentsFatherAliveMaternal GrandfatherTommy Swiney Maternal GrandmotherCarolyn SwineyMotherDonna WalpAlivePaternal Grandfather Skyler WalpPaternal GrandmotherMadelon WalpSister Social History Tobacco UseTypesPacks/DayYears UsedDateSmoking Tobacco: NeverSmokeless Tobacco: Never Tobacco Cessation:Counseling Given: Not Answered Alcohol UseStandard Drinks/WeekCommentsNot Currently0 (1 standard drink = 0.6 oz pure alcohol)caffeine intake: rareAUDIT-CAnswerDate RecordedQ1: How often do you have a drink containing alcohol?Monthly or less02/08/2024Q2: How many drinks containing alcohol do you have on a typical day when you are drinking?1 or 2 02/08/2024Q3: How often do you have six or more drinks on one occasion?Less than yatidao5402/08/2024HQ-2AnswerDate RecordedPatient Health Questionnaire-2 Score0 05/16/2024Estimated Date of AbzbhdprZeiwqfbtVkt74/20/2025Based on Ultrasound, FHR- 173Sex and Gender InformationValueDate RecordedSex Assigned at BirthNot on fileLegal AmiIsqxqv28/06/2024 11:24 AM ESTGender IdentityNot on file Sexual OrientationNot on fileOccupationIndustryJob Start DateJob End DateNot on fileNot on fileNot on fileNot on file Last Filed Vital Signs Vital SignReadingTime TakenCommentsBlood Swdsbyxr847/8810 8:34 AM EDT Mmtwn648106/23/2023 9:25 AM AJLZxvmycanyve77.4 ??C (97.5 ??F)06/23/2023 9:25 AM ESTRespiratory Kbij181905/15/2023 11:28 AM ESTOxygen Orfelmbitb98%06/23/2023 9:25 AM ESTInhaled Oxygen Concentration--Krxleb54.9 kg (176 lb 1.9 oz)02/22/2025 8:34 AM BCAFtxosz323 cm (5' 3 )08/10/2024 2:55 PM EDTBody Mass Index31. 2:55 PM EDT Plan of Treatment DateTypeDepartmentCare Team (Latest Contact Info)Zhghomafmou74/23/2025 8:40 AM EDTRoutine [facility] [address] [place] [address] Nadine Gurrola PA [address] [place] [address] Health MaintenanceDue DateLast DoneCommentsInfluenza Vaccine (#1)01/08/2025 Goals GoalPatient Goal TypeAssociated ProblemsRecent ProgressPatient-Stated?Author Reminders Care PlanOB RemindersJennifer Fatima RN Procedures Procedure NamePriorityDate/TimeAssociated DiagnosisCommentsPOCT URINALYSIS LFVHSFKXEorixnv36/16/2025 8:46 AM EDT 39 weeks gestation of ([facility]) POCT URINALYSIS CIQDIEBGKbuhhwf97/09/2025 8:53 AM EDT Third trimester ([facility]) US OB BPP W NON-VCVREW9402/15/2025 8:08 AM EDT US OB BPP W NON-XUHKJI9002/08/2025 9:24 AM EDT POCT URINALYSIS VFANSPDNEoqygmw12/02/2025 8:57 AM EDT Third trimester ([facility]) US OB BPP W NON-MLWIEC1102/01/2025 8:47 AM EDT POCT URINALYSIS RZAAXAUNAkxvlun20/22/2025 8:42 AM EDT Third trimester ([facility]) CULTURE, GROUP B STREP WITH TWIUEGMMSFVNVYfiiwln24/22/2025 8:30 AM EDT Third trimester ([facility]) US OB BPP W NON-RAWUVW4001/25/2025 8:50 AM EDT US OB BPP W NON-KEMERP1401/18/2025 8:45 AM EDT POCT URINALYSIS LXWALSUFAqsssoh35/08/2025 9:01 AM EDT Third trimester ([facility]) US OB BPP W NON-MIJVPZ1001/08/2025 12:44 PM EDT US OB BPP W NON-VQLLZY6701/04/2025 10:27 AM EDT POCT URINALYSIS RTCWFOCBZafudms96/26/2025 8:29 AM EDT Third trimester ([facility]) POCT URINALYSIS NQUARWYSDxcbfru18/12/2025 9:06 AM EDT 30 weeks gestation of ([facility]) Third trimester ([facility]) US OB FOLLOW UP TRANSABDOMINAL WLYGBVCAShuwtbe17/12/2025 8:25 AM EDT size inconsistent with dates ([facility]) from Last 3 Months Results * (ABNORMAL) POCT urinalysis dipstick manually resulted (02/22/2025 8:46 AM EDT) Only the most recent of7 resultswithin the time period is included. ComponentValueRef RangeTest MethodAnalysis TimePerformed AtPathologist Signature Color, UAYellowClarity, UAClearGlucose, UANegativeNegative - 2000(110) ++++ mg/dLBilirubin, UANegativeNegative - 4(70) +++ mg/dLKetones, UANegativeNegative - 160(16) ++++ mg/dLSpec Grav, UA1.0051 - 1.03Blood, UANegativeNegative - 50 Mark/mcLpH, UA7.05 - 9Protein, UANegativeNegative - 2000(20) ++++ mg/dL Urobilinogen, UA2.00.2 - 12 mg/dLLeukocytes, UA2+Negative - 500+++ Mahsa/mcL Nitrite, UANegativeNegative - PositiveSpecimen (Source)Anatomical Location / LateralityCollection Method / VolumeCollection TimeReceived BvfdGecfh77/16/2025 8:46 AM EDT Narrative Authorizing ProviderResult TypeResult StatusA[facility] TEST ENTER/EDIT ORDERABLESFinal Result * US OB BPP W NON-STRESS (02/15/2025 8:08 AM EDT) Only the most recent of7 resultswithin the time period is included. Anatomical RegionLateralityModalityOtherSpecimen (Source)Anatomical Location / LateralityCollection Method / VolumeCollection TimeReceived Time02/15/2025 8:08 AM EDT Narrative 02/15/2025 8:11 AM EDT [facility] ?[address] ? [place] [address] ? Ultrasound Report ? Signed ? Patient: ALONDRA BEAVER ?MR#: [id number] ?? : 1995 ?Acct:[id number] ?? Age/Sex: 29 / F ?ADM Date: 02/15/25 ?? Loc: US ? Attending Dr: Rocio Lozano D.O. ? Ordering Physician: Rocio Lozano D.O. ?? Date of Service: 02/15/25 ?? Procedure(s): US OB BPP w non-stress ?? Accession Number(s): [id number] ? cc: Rocio Lozano D.O.; Zita Alanis M.D. ? [facility] ? [address] ? [place] [address] ? Patient Name: ?? ALONDRA BEAVER ? MRN: [id number] ? date: 1995 ?Sex: F ?? Assigned Patient Location: [facility] ?? Current Patient Location: ? Accession/Order Number: [id number] ?? Exam Date: 02/15/2025 ??07:15 ?Report Date: 02/15/2025 ??08:08 ? At the request of: ?? ROCIO ??BLAKE ??DO ? Procedure: ??US OB BPP w non-stress ? BIOPHYSICAL PROFILE: ? CLINICAL INFORMATION: OLIGOHYDRAMNIOS O28.8 ? COMPARISON: 02/08/2025 ? There is a single live intrauterine gestation in cephalic presentation. ??The ?? reported gestational age is 38 weeks 3 days. ??The heart rate measures ?? 157 beats per minute. ? FINDINGS: ? TONE: 1 or more episodes of activity extension and flexion of ?? extremity or opening and closing of the hand ?[Y] ? 2/2 ?? GROSS BODY MOVEMENTS: 3 or more discrete body or limb movements ?[Y] ? 2/2 ?? BREATHING MOVEMENTS: 1 or more episodes of breathing lasting at ?? least 30 seconds ? [Y] ? 2/2 ?? ZULMA: A single deepest vertical pocket of amniotic fluid greater than 2 cm ? [Y] ? 2/2 ?ZULMA: 10.1 cm.) ??This is in low-normal range. ? Total score: ? 8/8 ? US/US OB BPP w non-stress ?? IMPRESSION: ? NORMAL BIOPHYSICAL PROFILE ? Impression dictated by: Zita Lu M.D. ??02/15/2025 8:08 AM ? Dictation Location: RADIO-PC-02 ? Electronically authenticated by: [id number] ??Y ?? Date: 02/15/2025 ??08:08 ? Dictated By: ?Zita Lu M.D. ? Signed By: ?02/15/25 0811 ? DD/ 0808 ? TD/TT: ? Corporate Recycling Manager: Procedure Note Radiology, Radiologist, - 02/15/2025 [place] [address] Ultrasound Report Signed Patient: ALONDRA BEAVER NMR#: [id number] : 1995Acct:[id number] Age/Sex: 29 / FADM Date: 02/15/25 Loc: US Attending Dr: Rocio Lozano D.O. Ordering Physician: Rocio Lozano D.O. Date of Service: 02/15/25 Procedure(s): US OB BPP w non-stress Accession Number(s): [id number] cc: Rocio Lozano D.O.; Zita Alanis M.D. The [address] [address] Patient Name: ALONDRA BEAVER MRN: [id number] date: 1995 Sex: F Assigned Patient Location: [facility] Current Patient Location: Accession/Order Number: [id number] Exam Date: 02/15/2025 07:15 Report Date: 02/15/2025 08:08 At the request of: ROCIO LOZANO DO Procedure: US OB BPP w non-stress BIOPHYSICAL PROFILE: CLINICAL INFORMATION: OLIGOHYDRAMNIOS O28.8 COMPARISON: 02/08/2025 There is a single live intrauterine gestation in cephalic presentation.The reported gestational age is 38 weeks 3 days. The heart ratemeasures 157 beats per minute. FINDINGS: TONE: 1 [...] Lu M.D. 02/15/2025 8:08 AM Dictation Location: [place] [address] Electronically authenticated by: [id number] Y Date: 508:08 Dictated By: Zita Lu M.D. Signed By:02/15/25810 DD/ 7 TD/TT: Corporate Recycling Manager: Authorizing ProviderResult TypeResult StatusCoreivonne Lozano DOCLINISYNC IMAGINGFinal Result * CULTURE, GROUP B STREP WITH SUSCEPTIBLITY (01/29/2025 8:30 AM EDT)Specimen (Source)Anatomical Location / LateralityCollection Method / VolumeCollection TimeReceived JussCknr43/22/2025 8:30 AM EDT Narrative Authorizing ProviderResult TypeResult StatusCoreivonne Lozano DOLAB BLOOD ORDERABLES Final ResultPerforming OrganizationAddressCity/State/ZIP CodePhone Number EXTERNAL LAB * US OB follow up transabdominal approach (12/19/2024 8:25 AM EDT)Anatomical RegionLateralityModalityBodyUltrasoundSpecimen (Source)Anatomical Location / LateralityCollection Method / VolumeCollection TimeReceived Time12/19/2024 11:43 AM EDT Impressions 12/19/2024 1:52 PM EDT 1. Single, live intrauterine , current sonographic age of 29 weeks and 5 days, with an estimated date of delivery of March 01, 2025. 2. ??On the prior examination of October 26, 2024 estimated delivery was March 04, 2025 and weight by percentile was 24% * ??Estimated Weight (g) by Percentile is based upon an accurate estimated age based onlast menstrual period. ?? TRANSCRIBED BY: ? ELECTRONICALLY SIGNED BY: Terry Rodriguez MD Narrative 12/19/2024 1:52 PM EDT FINDINGS: Comparison made with prior examination of October 26, 2024. A single, live intrauterine is present with normal cardiac rate of 150 ??beats per minute. Normal activity and amniotic fluid volume. Amniotic fluid index is 10.0 cm. (largest fluid pocket 3.0 cm) ??Morphology is grosslynormal. The cervix not measured. ??The current sonographic age is 29 ??weeks and 5 days, based on the following measurements: BPD ?7.3 cm ( 29 weeks, 1 days) Head Circumference ? 17.3cm (29 weeks,6 ??days) Abdominal Circumference ? 26.1cm ( 30 weeks, 0 days) Femur Length ?5.6cm (29 weeks, 3 days) Presentation ? Cephalic ? Weight (g) by Percentile ?? 27.4% * These measurements result in an estimated date of delivery of March 01, 2025. ?? The current estimated weight is ??1465 ??grams +/- ( 3 pound, ??4 ounces). ?? Procedure Note Terry Rodriguez MD - 12/19/2024 [...] BY: ELECTRONICALLY SIGNED BY: Terry Rodriguez MD Authorizing ProviderResult TypeResult StatusCorey [facility] PROCEDURES Final Result from Last 3 Months Additional Health Concerns Active ProblemsNoted DateDiagnosed DateOB Efjivfeki99/04/2025 Insurance Care Teams Team MemberRelationshipSpecialtyStart DateEnd Date Unallocated, Noms Provider, [address] [place] [address] [facility]
--- OUTSIDE RECORDS SUMMARY | 2025-03-01 07:15 | XMS_ITS | Encounter Summary ---
Author Organization [facility] Address [address] [place] [address] Care Team Providers Care Office Machine Technician Name Role Phone Unallocated, Noms Provider [facility] Encounter Details DateTypeDepartmentCare Team (Latest Contact Info)Ejqwbcejrgg22/16/2025amboo flowsheet TORREY M[facility]O [address] [place] [address] Nadine Gurrola PA [address] [place] [address] Social History Tobacco UseTypesPacks/DayYears UsedDateSmoking Tobacco: NeverSmokeless [...] or more drinks on one occasion?Less than rhuoxfh6602/08/2024HQ-2AnswerDate RecordedPatient Health Questionnaire-2 Xbcft310Estimated Date of AxntcckyDtzipplgYfi62/20/2025Based on Ultrasound, FHR- 173Sex and Gender InformationValueDate RecordedSex Assigned at BirthNot on fileLegal GsmAtxmug28/10/2023 11:24 AM ESTGender IdentityNot on file Sexual OrientationNot on fileOccupationIndustryJob Start DateJob End DateNot on fileNot on fileNot on fileNot on filedocumented as of this encounter Plan of Treatment DateTypeDepartmentCare Team (Latest Contact Info)Cjsvcoymbdb03/23/2025 8:40 AM EDTRoutine TORREY MONTANO [address] [place] [address] Nadine Gurrola PA [address] [place] [address] documented as of this encounter Goals GoalPatient Goal TypeAssociated ProblemsRecent ProgressPatient-Stated?Author Reminders Care PlanOB RemindersJennifer Fatima RNdocumented as of this encounter Visit Diagnoses Not on filedocumented in this encounter Additional Health Concerns Active ProblemsNoted DateDiagnosed DateOB Mgaqlbwee10/04/2025 documented as of this encounter Care Teams Team MemberRelationshipSpecialtyStart DateEnd Date Unallocated, Noms MD Justina [address] [place] [address] PCP - GeneralFamily Medicine06/23/23documented as of this encounter
--- OUTSIDE RECORDS SUMMARY | 2025-03-01 07:15 | XMS_ITS | Encounter Summary ---
Author Organization [facility] Address [address] [place] [address] Care Team Providers Care Machine Pecan Gatherer Name Role Phone Unallocated, Noms Provider Primary Care [facility] Encounter Details DateTypeDepartmentCare Team (Latest Contact Info)Camkmyvnxey67/09/2025linisync Result Encounter NOMS External Department Unsolicited Rocio Lozano, DO [address] [place] [address] Social History Tobacco UseTypesPacks/DayYears UsedDateSmoking Tobacco: NeverSmokeless [...] or more drinks on one occasion?Less than hfxklnf9402/08/2024HQ-2AnswerDate RecordedPatient Health Questionnaire-2 Cbcdz310Estimated Date of OjghcmwkJpafvzvfVxg09/20/2025Based on Ultrasound, FHR- 173Sex and Gender InformationValueDate RecordedSex Assigned at BirthNot on fileLegal VjlOpksho14/06/2024 11:24 AM ESTGender IdentityNot on file Sexual OrientationNot on fileOccupationIndustryJob Start DateJob End DateNot on fileNot on fileNot on fileNot on filedocumented as of this encounter Plan of Treatment DateTypeDepartmentCare Team (Latest Contact Info)Iwkhbgamlop06/23/2025 8:40 AM EDTRoutine [facility] [address] [place] [address] Nadine Gurrola PA [address] [place] [address] documented as of this encounter Goals GoalPatient Goal TypeAssociated ProblemsRecent ProgressPatient-Stated?Author Reminders Care PlanOB RemindersNoJennifer Ayala RNdocumented as of this encounter Procedures Procedure NamePriorityDate/TimeAssociated DiagnosisCommentsUS OB BPP W NON-DVVLCE6402/15/2025 8:08 AM EDT documented in this encounter Results * US OB BPP W NON-STRESS (02/15/2025 8:08 AM EDT)Anatomical Region LateralityModalityOtherSpecimen (Source)Anatomical Location / Laterality Collection Method / VolumeCollection TimeReceived Time02/15/2025 8:08 AM EDT Narrative 02/15/2025 8:11 AM EDT [facility] ?[address] ? [place] [address] ? Ultrasound Report ? Signed ? Patient: ALONDRA BEAVER ?MR#: [id number] ?? : 1995 ?Acct:[id number] ?? Age/Sex: 29 / F ?ADM Date: 02/15/25 ?? Loc: US ? Attending Dr: Rocio Lozano D.O. ? Ordering Physician: Rocio Lozano D.O. ?? Date of Service: 02/15/25 ?? Procedure(s): US OB BPP w non-stress ?? Accession Number(s): [id number] ? cc: Rocio Lozano D.O.; Zita Alanis M.D. ? [facility] ? [address] ? [place] [address] ? Patient Name: ?? ALONDRA BEAVER ? MRN: [facility]:[id number] ? date: 1995 ?Sex: F ?? Assigned Patient Location: FB ?? Current Patient Location: ? Accession/Order Number: [id number] ?? Exam Date: 02/15/2025 ??07:15 ?Report Date: 02/15/2025 ??08:08 ? At the request of: ?? ROCIO ??MOHINDER ??DO ? Procedure: ??US OB BPP w [...] Dictation Location: RADIO-PC-02 ? Electronically authenticated by: [id number] ??Y ?? Date: 02/15/2025 ??08:08 ? Dictated By: ?Zita Lu M.D. ? Signed By: ?02/15/25810 ? DD/ 08 ? TD/TT: ? Route Supervisor: Procedure Note Radiology, Radiologist, - 02/15/2025 [place] [address] Ultrasound Report Signed Patient: ALONDRA BEAVER NMR#: [id number] : 1995Acct:[id number] Age/Sex: 29 / FADM Date: 02/15/25 Loc: US Attending Dr: Rocio Lozano D.O. Ordering Physician: Rocio Lozano D.O. Date of Service: 02/15/25 Procedure(s): US OB BPP w non-stress Accession Number(s): [id number] cc: Rocio Lozano D.O.; Zita Alanis M.D. The [place] [address] Patient Name: ALONDRA BEAVER MRN: [id number] date: 1995 Sex: F Assigned Patient Location: [facility] Current Patient Location: Accession/Order Number: [id number] Exam Date: 02/15/2025 07:15 Report Date: 02/15/2025 [...] Lu M.D. 02/15/2025 8:08 AM Dictation Location: [place] [address] Electronically authenticated by: [id number] Y Date: 508:08 Dictated By: Zita Lu M.D. Signed By:02/15/25810 DD/ 7 TD/TT: Route Supervisor: Authorizing ProviderResult TypeResult StatusCoreivonne Lozano DOCLINISYNC IMAGINGFinal Result documented in this encounter Visit Diagnoses Not on filedocumented in this encounter Additional Health Concerns Active ProblemsNoted DateDiagnosed DateOB Usikzemfw05/04/2025 documented as of this encounter Care Teams Team MemberRelationshipSpecialtyStart DateEnd Date Unallocated, Noms Provider, [address] [place] [address] PCP - GeneralFamily Medicine06/23/23documented as of this encounter
--- OUTSIDE RECORDS SUMMARY | 2025-03-01 07:20 | XMS_ITS | CCD ---
Author Organization [facility] Care Team Providers Care Hand Painter Name Role Phone DR JANES GARCIA Admitting [...] GALVAN Attending Unavailable BLAKE, JOSÉ Attending Unavailable NAIDNE GALVAN Attending Unavailable BLAKE, JOSÉ Attending Unavailable BLAKE, JOSÉ Referring Unavailable NADINE GALVAN Attending Unavailable BLAKE, JOSÉ Attending Unavailable JEN, KERA Attending Unavailable BLAKE, JOSÉ Attending Unavailable MADELEINE BUNDY Attending Unavailable JEN, KERA Attending Unavailable JEN, KERA Attending Unavailable NADINE GALVAN Attending Unavailable Medications Current Medications MedicationDrug Class(es)DatesSig (Normalized)Sig (Original)naproxen 500 mg oral tablet (1 source)Nonsteroidal Anti-inflammatory DrugStart: 53-28-8434mksq 1 tablet by mouth every twelve hours at mealtime as neededNaproxen 500 MG 1 tablet with food or milk as needed Orally every 12 hrs for 20 days May, ActivePrenatal Vit-Fe Fumarate-FA ( PO) (20 sources) Vit-Fe Fumarate-FA ( PO) Take by mouth Active Completed/Discontinued Medications MedicationDrug Class(es)DatesSig (Normalized)Sig (Original)azithromycin 250 mg oral tablet (3 sources)Macrolide AntimicrobialStart: 08-21-2024 End: 96-64-0335wsnjkdnbfaic (Zithromax Z-Triston) 250 MG tablet Indications: Sore throat As directed 6 tablet 08/21/2024 08/29/2024 Fixjmecxngum13 day ethinyl estradiol 0.073311 mg/hr / etonogestrel 0.005 mg/hr vaginal system (6 sources)Progestin, EstrogenStart: 05-13-2023 End: 34-84-0019FrrEtdh 0.12-0.015 MG/24HR vaginal ring INSERT 1 RING VAGINALLY, LEAVE IN FOR 21 DAYS THEN REMOVE FOR 1 WEEK. REPEAT MONTHLY 05/13/2023 05/16/2024 Discontinued (Therapy completed)NuvaRing _insert 1 PV q month Nay Cartagena CNP Active Problems Problem ClassificationProblemDateDocumented DateEpisodic/Chronic Administrative/social admission (2 sources)Persons encountering health services in other specified circumstances; Translations: [Patient encounter status]EpisodicContraceptive and procreative management (4 sources)Contraception status; Translations: [Encounter for surveillance of vaginal ring hormonal contraceptive device]51-36-2054HmgjxwwkJsobmjor mellitus without complication (2 sources)Abnormal glucose tolerance test; Translations: [Other abnormal glucose]01-51-4733PesqkfauMifzdwstk of lipid metabolism (1 source)Hyperlipidemia; Translations: [Hyperlipidemia, unspecified]Chronic Esophageal disorders (1 source)Gastro-esophageal reflux disease without esophagitis; Translations: [GERD WITHOUT ESOPHAGITIS]Onset: 54-97-1884WirtidaDmzlbeoxy disorders (8 sources)Amenorrhea; Translations: [Amenorrhea, unspecified]67-26-7641Bdvdljt Nausea and vomiting (3 sources)Nausea with vomiting, unspecified; Translations: [NAUSEA WITH VOMITING UNSPECIFIED]Onset: 91-57-5244HlfiesfsRwonyhpoqvthx gastroenteritis (1 source)Noninfective gastroenteritis and colitis, unspecified; Translations: [NONINFECTIVE GE AND COLITIS UNS]Onset: 04-41-7035FirkcdulSpyajkjyqsg chest pain (3 sources)Chest pain, unspecified; Translations: [Chest pain]Onset: 03-02-2023 EpisodicOther and ill-defined heart disease (2 sources)Left atrial enlargement; Translations: [Cardiomegaly]ChronicOther and ill-defined heart disease (1 source)CardiomegalyChronicOther complications of (2 sources) size does not accord with dates; Translations: [Uterine size- date discrepancy, unspecified trimester]63-71-4080PacgipkaKxsin complications of (2 sources)Abnormal amniotic fluid; Translations: [Other abnormal findings on screening of mother]89-57-3284OgslswtzSloun endocrine disorders (2 sources)Disorder of endocrine system; Translations: [Endocrine disorder, unspecified]26-33-1467CgzbfqqaJfqat non-traumatic joint disorders (2 sources)Pain in left shoulder; Translations: [Acute pain of left shoulder] EpisodicOther and delivery including normal (20 sources)Normal ; Translations: [Encounter for supervision of normal first , first trimester]38-77-5351XgehdowlLemfb screening for suspected conditions (not mental disorders or infectious disease) (9 sources)Abnormal electrocardiogram [ECG] [EKG]; Translations: [Cancer cervix screening status]EpisodicResidual codes; unclassified (2 sources)Gestation period, 14 weeks; Translations: [14 weeks gestation of ]39-32-0846SgefckmbRftgntcx codes; unclassified (2 sources)Gestation period, 22 weeks; Translations: [22 weeks gestation of ]28-50-2127GyzwnukgBqkxfgcj codes; unclassified (2 sources)Gestation period, 26 weeks; Translations: [26 weeks gestation of ]58-80-9450XewkzktiHihvmgme codes; unclassified (2 sources)Gestation period, 28 weeks; Translations: [28 weeks gestation of ]04-56-9323TschwmghMllunrta codes; unclassified (2 sources)Gestation period, 30 weeks; Translations: [30 weeks gestation of ]12-30-7385ReixbufqZgxzibnn codes; unclassified (2 sources)Gestation period, 32 weeks; Translations: [32 weeks gestation of ]50-77-0570TddtkaehRbnrrhpo codes; unclassified (2 sources)Gestation period, 34 weeks; Translations: [34 weeks gestation of ]45-93-7576HmjdjztaEgzqpcre codes; unclassified (2 sources)Gestation period, 36 weeks; Translations: [36 weeks gestation of ]81-51-6499XgvgqtxyGfytqqqk codes; unclassified (2 sources)Gestation period, 37 weeks; Translations: [37 weeks gestation of ]78-89-0718JfqjjisrPkgidnsd codes; unclassified (2 sources)Gestation period, 38 weeks; Translations: [38 weeks gestation of ]87-15-9587RbpqolnvKhnnlpgh codes; unclassified (2 sources)Gestation period, 39 weeks; Translations: [39 weeks gestation of ]15-26-5719LfzlycgqWhdzfdx and strains (1 source)Strain of muscle, fascia and tendon of lower back, initial encounter EpisodicUnclassified (1 source)Pain in left shoulder; Translations: [Pain in left shoulder]Onset: 54-82-9112Khchsmeizmcq (20 sources)OB RemindersOnset: Viral infection (4 sources)Herpes simplex; 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, unspecified] 16-01-9178Lmunlkiu Results Test NameValueInterpretationReference RangeFacilityUrinalysis macro (dipstick) panel (U)on 74-70-3035Qpocqjjol, UANegativeNegative - 4(70) +++ mg/dLNOMS HealthcareBlood, UANegativeNegative - 50 Mark/mcLNOMS HealthcareClarity, UAClear NOMS HealthcareColor, UAYellowNOMS HealthcareGlucose, UANegativeNegative - 2000(110) ++++ mg/dLNOMS HealthcareInterpretation and review of laboratory resultsAbnormalNOMS HealthcareKetones, UANegativeNegative - 160(16) ++++ mg/dL NOMS HealthcareLeukocytes, UA2+Negative - 500+++ Mahsa/mcLNOMS HealthcareNitrite, UANegativeNegative - PositiveNOMS HealthcarepH, UA7.05 - 9NOMS Healthcare Protein, UANegativeNegative - 2000(20) ++++ mg/dLNOMS HealthcareSpec Grav, UA 1.0051 - 1.03NOMS HealthcareUrobilinogen, UA2.00.2 - 12 mg/dLNOMS HealthcareNOMS HealthcareOutside Recordson 30-22-1118Emeituf Records [id number]#1.00OTAvita Health System Bucyrus HospitalRad - Other Radiology Reporton 92-83-4659Kjd - Other Radiology Report [id number]#1.00OTGTBarre City Hospital HospitalUS OB BPP W NON-STRESSon 98-74-0502Fll[place], [place] [address] Ultrasound Report Signed Patient: ALONDRA BEAVER MR#: [id number] : 1995 Acct:[id number] Age/Sex: 29 / F ADM Date: 02/15/25 Loc: US Attending Dr: José Lozano D.O. Ordering Physician: José Lozano D.O. Date of Service: 02/15/25 Procedure(s): US OB BPP w non-stress Accession Number(s): [id number] cc: José Lozano D.O.; Zita Alanis M.D. [place] [address] Patient Name: ALONDRA BEAVER MRN: [id number] date: 1995 Sex: F Assigned Patient Location: [facility] Current Patient Location: Accession/Order Number: [id number] Exam Date: 02/15/2025 07:15 Report Date: 02/15/2025 [...] Lu M.D. 02/15/2025 8:08 AM Dictation Location: [place] [address] Electronically authenticated by: [id number] Y Date: 02/15/2025 08:08 Dictated By: Zita Lu M.D. Signed By: 02/15/25810 DD/ 7 TD/TT: Cable Tender:ANDREINAHRadiology, Radiologist, - 02/15/2025 [place] [address] Ultrasound Report Signed Patient: ALONDRA BEAVER MR#: [id number] : 1995 Acct:[id number] Age/Sex: 29 / F ADM Date: 02/15/25 Loc: US Attending Dr: José Lozano D.O. Ordering Physician: José Lozano D.O. Date of Service: 02/15/25 Procedure(s): US OB BPP w non-stress Accession Number(s): [id number] cc: José Lozano D.O.; Zita Alanis M.D. [place] [id number] Patient Name: ALONDRA BEAVER MRN: [id number] date: 1995 Sex: F Assigned Patient Location: [facility] Current Patient Location: Accession/Order Number: [id number] Exam Date: 02/15/2025 07:15 Report Date: 02/15/2025 [...] IMPRESSION: NORMAL BIOPHYSICAL PROFILE Impression dictated by: iZta Lu M.D. 02/15/2025 8:08 AM Dictation Location: [place] [address] Electronically authenticated by: [id number] Y Date: 02/15/2025 08:08 Dictated By: Zita Lu M.D. Signed By: 02/15/25810 DD/ 7 TD/TT: Cable Tender: [facility] HealthcareRadiology Study observation (narrative)NOMS HealthcareUS OB BPP W NON-STRESSOrdered By: Radiologist Radiology on 54-27-1919DJLT Healthcare Work Phone: Urinalysis macro (dipstick) panel (U)on 02-15-2025 Bilirubin, UANegativeNegative - 4(70) +++ mg/dLNOMS HealthcareBlood, UANegative Negative - 50 Mark/mcLNOMS HealthcareClarity, UAClearNOMS HealthcareColor, UA YellowNOMS HealthcareGlucose, UANegativeNegative - 2000(110) ++++ mg/dLNOMS HealthcareInterpretation and review of laboratory resultsAbnormalNOMS Healthcare Ketones, UANegativeNegative - 160(16) ++++ mg/dLNOMS HealthcareLeukocytes, UA PositiveNegative - 500+++ Mahsa/mcLNOMS HealthcareComment on above:1+Nitrite, UA NegativeNegative - PositiveNOMS HealthcarepH, UA65 - 9NOMS HealthcareProtein, UA NegativeNegative - 2000(20) ++++ mg/dLNONE HealthcareSpec Grav, UA1.011 - 1.03 NOMS HealthcareUrobilinogen, UA0.20.2 - 12 mg/dLNOAurora Valley View [facility] Rad - Other Radiology Reporton 41-08-7211Txp - Other Radiology Report [id number]#1.00GTMer[facility] Health [facility] BPP W NON-STRESSon 29-26-8528[place], [place] [address] Ultrasound Report Signed Patient: ALONDRA BEAVER MR#: [id number] : 1995 Acct:[id number] Age/Sex: 29 / F ADM Date: 02/08/25 Loc: US Attending Dr: José Lozano D.O. Ordering Physician: José Lozano D.O. Date of Service: 02/08/25 Procedure(s): US OB BPP w non-stress Accession Number(s): [id number] cc: José Lozano D.O.; Zita Alanis M.D. [place] [address] Patient Name: ALONDRA BEAVER MRN: [id number] date: 1995 Sex: F Assigned Patient Location: [facility] Current Patient Location: [facility] Accession/Order Number: [id number] Exam Date: 02/08/2025 07:10 Report Date: 02/08/2025 [...] Lu M.D. 02/08/2025 9:24 AM Dictation Location: [place] [address] Electronically authenticated by: [id number] Y Date: 02/08/2025 09:24 Dictated By: Zita Lu M.D. Signed By: 02/08/25926 DD/ 3 TD/TT: Cable Tender:RODRICKadiologivonne, Radiologist, - 02/08/2025 [place] [address] Ultrasound Report Signed Patient: ALONDRA BEAVER MR#: [id number] : 1995 Acct:[id number] Age/Sex: 29 / F ADM Date: 02/08/25 Loc: US Attending Dr: José Lozano D.O. Ordering Physician: José Lozano D.O. Date of Service: 02/08/25 Procedure(s): US OB BPP w non-stress Accession Number(s): [id number] cc: José Lozano D.O.; Zita Alanis M.D. [place] [address] Patient Name: ALONDRA BEAVER MRN: [id number] date: 1995 Sex: F Assigned Patient Location: [facility] Current Patient Location: [facility] Accession/Order Number: [id number] Exam Date: 02/08/2025 07:10 Report Date: 02/08/2025 [...] This is in low-normal range. Total score: 8 US/US OB BPP w non-stress IMPRESSION: NORMAL BIOPHYSICAL PROFILE. Impression dictated by: Zita Lu M.D. 02/08/2025 9:24 AM Dictation Location: [place] [address] Electronically authenticated by: [id number] Y Date: 02/08/2025 09:24 Dictated By: Zita Lu M.D. Signed By: 02/08/25926 DD/ 3 TD/TT: Cable Tender: [facility] HealthcareRadiology Study observation (narrative)NOMS HealthcareUS OB BPP W NON-STRESSOrdered By: Radiologist Radiology on 31-85-7319ZODK Healthcare Work Phone: Urinalysis macro (dipstick) panel (U)on 02-08-2025 Bilirubin, UANegativeNegative - 4(70) +++ mg/dLNOMS HealthcareBlood, UANegative Negative - 50 Mark/mcLNOMS HealthcareClarity, UAClearNOMS HealthcareColor, UA YellowNOMS HealthcareGlucose, UANegativeNegative - 2000(110) ++++ mg/dLNOMS HealthcareInterpretation and review of laboratory resultsAbnormalNOMS Healthcare Ketones, UANegativeNegative - 160(16) ++++ mg/dLNOMS HealthcareLeukocytes, UA1+ Negative - 500+++ Mahsa/mcLNOMS HealthcareNitrite, UANegativeNegative - Positive NOMS HealthcarepH, UA65 - 9NOMS HealthcareProtein, UANegativeNegative - 2000(20) ++++ mg/dLNOMS HealthcareSpec Grav, UA1.011 - 1.03NOMS HealthcareUrobilinogen, UA1.00.2 - 12 mg/dLNOMS HealthcareNOMS HealthcareUS OB BPP W NON-STRESSon 69-01-6051[place] [address] Ultrasound Report Signed Patient: ALONDRA BEAVER MR#: [id number] : 1995 Acct:[id number] Age/Sex: 29 / F ADM Date: 02/01/25 Loc: US Attending Dr: José Lozano D.O. Ordering Physician: José Lozano D.O. Date of Service: 02/01/25 Procedure(s): US OB BPP w non-stress Accession Number(s): [id number] cc: José Lozano D.O.; Zita Alanis M.D. [place] [address] Patient Name: ALONDRA BEAVER MRN: [id number] date: 1995 Sex: F Assigned Patient Location: [facility] Current Patient Location: Accession/Order Number: [id number] Exam Date: 02/01/2025 07:05 Report Date: 02/01/2025 08:47 At the request of: JOSÉ LOZANO DO Procedure: US OB BPP w non-stress Biophysical profile. Reason for exam: Borderline low ZULMA COMPARISON: 01/25/2025 TECHNIQUE: Transabdominal imaging of the gravid uterus was obtained. FINDINGS: The insurance claims supervisor reports a BPP of 8 out of 8. ZULMA is normal at 12.1 cm. heart rate 150 bpm. US/US OB BPP w non-stress IMPRESSION: BPP 8 out of 8. Impression dictated by: Terry Puentes Jr., D.O. 02/01/2025 8:47 AM Dictation Location: [place] [address] Electronically authenticated by: [id number] Y Date: 02/01/2025 08:47 Dictated By: Terry Puentes M.D. Signed By: 02/01/2549 DD/ 6 TD/TT: Cable Tender:RODRICKadiologivonne, Radiologist, - 02/01/2025 [place] [address] Ultrasound Report Signed Patient: ALONDRA BEAVER MR#: [id number] : 1995 Acct:[id number] Age/Sex: 29 / F ADM Date: 02/01/25 Loc: US Attending Dr: José Lozano D.O. Ordering Physician: José Lozano D.O. Date of Service: 02/01/25 Procedure(s): US OB BPP w non-stress Accession Number(s): [id number] cc: José Lozano D.O.; Zita Alanis M.D. [place] [address] Patient Name: ALONDRA BEAVER MRN: [id number]:[id number] date: 1995 Sex: F Assigned Patient Location: [facility] Current Patient Location: Accession/Order Number: [id number] Exam Date: 02/01/2025 07:05 Report Date: 02/01/2025 08:47 At the request of: OJSÉ LOZANO DO Procedure: US OB BPP w non-stress Biophysical profile. Reason for exam: Borderline low ZULMA COMPARISON: 01/25/2025 TECHNIQUE: Transabdominal imaging of the gravid uterus was obtained. FINDINGS: The insurance claims supervisor reports a BPP of 8 out of 8. ZULMA is normal at 12.1 cm. heart rate 150 bpm. US/US OB BPP w non-stress IMPRESSION: BPP 8 out of 8. Impression dictated by: Terry Puentes Jr., D.O. 02/01/2025 8:47 AM Dictation Location: [place] [address] Electronically authenticated by: [id number] Y Date: 02/01/2025 08:47 Dictated By: Terry Puentes M.D. Signed By: 02/01/2549 DD/ 0847 TD/TT: Cable Tender: [facility] CenterRadiology Study observation (narrative)[facility] OB BPP W NON-STRESSOrdered By: Radiologist Radiology on 66-46-3945LLEYNevada Regional Medical Center Work Phone: Urinalysis macro (dipstick) panel (U)on 01-29-2025 Bilirubin, UANegativeNegative - 4(70) +++ mg/dLNOMS HealthcareBlood, UANegative Negative - 50 Mark/mcLNOMS HealthcareClarity, UAClearNOMS HealthcareColor, UA YellowNOMS HealthcareGlucose, UANegativeNegative - 2000(110) ++++ mg/dLNONE HealthcareInterpretation and review of laboratory resultsAbnormKindred Hospital South Philadelphia Ketones, UANegativeNegative - 160(16) ++++ mg/dLNOMS HealthcareLeukocytes, UA PositiveNegative - 500+++ Mahsa/mcLNOMS HealthcareComment on above:3+Nitrite, UA NegativeNegative - PositiveNOMS HealthcarepH, UA75 - 9NOMS HealthcareProtein, UA NegativeNegative - 2000(20) ++++ mg/dLNOMS HealthcareSpec Grav, UA1.011 - 1.03 NOM HealthcareUrobilinogen, UA0.20.2 - 12 mg/dLNONE HealthcareNONE Healthcare Rad - Other Radiology Reporton 36-34-1834Duj - Other Radiology Report [id number]#1.00OTGTIFFMount [address]. [facility] OB BPP W NON-STRESSon 29-41-0281[place], [place] [address] Ultrasound Report Signed Patient: ALONDRA BEAVER MR#: [id number] : 1995 Acct:[id number] Age/Sex: 29 / F ADM Date: 01/25/25 Loc: US Attending Dr: José Lozano D.O. Ordering Physician: José Lozano D.O. Date of Service: 01/25/25 Procedure(s): US OB BPP w non-stress Accession Number(s): [id number] cc: José Lozano D.O.; Zita Alanis M.D. [place] [address] Patient Name: ALONDRA BEAVER MRN: [facility]:[id number] date: 1995 Sex: F Assigned Patient Location: [facility] Current Patient Location: Accession/Order Number: [id number] Exam Date: 01/25/2025 07:01 Report Date: 01/25/2025 [...] Lu M.D. 01/25/2025 8:50 AM Dictation Location: [place] [address] Electronically authenticated by: [id number] Y Date: 01/25/2025 08:50 Dictated By: Zita Lu M.D. Signed By: 01/25/25 0852 DD/ 0850 TD/TT: Cable Tender:RODRICKadiology, Radiologist, - 01/25/2025 [place] [address] Ultrasound Report Signed Patient: ALONDRA BEAVER MR#: [id number] : 1995 Acct:[id number] Age/Sex: 29 / F ADM Date: 01/25/25 Loc: US Attending Dr: José Lozano D.O. Ordering Physician: José Lozano D.O. Date of Service: 01/25/25 Procedure(s): US OB BPP w non-stress Accession Number(s): [id number] cc: José Lozano D.O.; Zita Alanis M.D. [place] [address] Patient Name: ALONDRA BEAVER MRN: [facility]:[id number] date: 1995 Sex: F Assigned Patient Location: [facility] Current Patient Location: Accession/Order Number: [id number] Exam Date: 01/25/2025 07:01 Report Date: 01/25/2025 [...] Lu M.D. 01/25/2025 8:50 AM Dictation Location: [place] [address] Electronically authenticated by: [id number] Y Date: 01/25/2025 08:50 Dictated By: Zita Lu M.D. Signed By: 01/25/25 0852 DD/ TD/TT: Cable Tender: [facility] HealthcareRadiology Study observation (narrative)NOM HealthcareUS OB BPP W NON-STRESSOrdered By: Radiologist Radiology on 68-65-8868ABPR [employer] Work Phone: US OB BPP W NON-STRESSon 77-93-8903GbpIota, [place] [address] Ultrasound Report Signed Patient: ALONDRA BEAVER MR#: [id number] : 1995 Acct:[id number] Age/Sex: 29 / F ADM Date: 01/18/25 Loc: US Attending Dr: José Lozano D.O. Ordering Physician: José Lozano D.O. Date of Service: 01/18/25 Procedure(s): US OB BPP w non-stress Accession Number(s): [id number] cc: José Lozano D.O.; Zita Alanis M.D. [place] [id number] Patient Name: ALONDRA BEAVER MRN: [facility]:[id number] date: 1995 Sex: F Assigned Patient Location: [facility] Current Patient Location: US Accession/Order Number: [id number] Exam Date: 01/18/2025 07:04 Report Date: 01/18/2025 [...] Lu M.D. 01/18/2025 8:45 AM Dictation Location: [place] [address] Electronically authenticated by: [id number] Y Date: 01/18/2025 08:45 Dictated By: Zita Lu M.D. Signed By: 01/18/2548 DD/ 4 TD/TT: Cable Tender:TBHRadiology, Radiologist, - 01/18/2025 [place] [address] Ultrasound Report Signed Patient: ALONDRA BEAVER MR#: [id number] : 1995 Acct:[id number] Age/Sex: 29 / F ADM Date: 01/18/25 Loc: US Attending Dr: José Lozano D.O. Ordering Physician: José Lozano D.O. Date of Service: 01/18/25 Procedure(s): US OB BPP w non-stress Accession Number(s): [id number] cc: José Lozano D.O.; Zita Alnais M.D. [place] [address] Patient Name: ALONDRA BEAVER MRN: [facility]:[id number] date: 1995 Sex: F Assigned Patient Location: [facility] Current Patient Location: US Accession/Order Number: [id number] Exam Date: 01/18/2025 07:04 Report Date: 01/18/2025 [...] Lu M.D. 01/18/2025 8:45 AM Dictation Location: [employer] Electronically authenticated by: [id number] Y Date: 01/18/2025 08:45 Dictated By: Zita Lu M.D. Signed By: 01/18/2548 DD/ 4 TD/TT: Cable Tender: [facility] HealthcareRadiology Study observation (narrative)[facility]OM[facility] HealthcareUS OB BPP W NON-STRESSOrdered By: Radiologist Radiology on 26-91-0961NFHS Healthcare Work Phone: Urinalysis macro (dipstick) panel (U)on 01-15-2025 Bilirubin, UANegativeNegative - 4(70) +++ mg/dLNOMS HealthcareBlood, UANegative Negative - 50 Mark/mcLNOMS HealthcareClarity, UAClearNOMS HealthcareColor, UA YellowNOMS HealthcareGlucose, UANegativeNegative - 2000(110) ++++ mg/dLNOMS HealthcareInterpretation and review of laboratory resultsAbnormalNOMS Healthcare Ketones, UANegativeNegative - 160(16) ++++ mg/dLNOMS HealthcareLeukocytes, UA PositiveNegative - 500+++ Mahsa/mcLNOMS HealthcareComment on above:1+Nitrite, UA NegativeNegative - PositiveNOMS HealthcarepH, UA65 - 9NOMS HealthcareProtein, UA NegativeNegative - 2000(20) ++++ mg/dLNOMS HealthcareSpec Grav, UA1.021 - 1.03 NOMS HealthcareUrobilinogen, UA0.20.2 - 12 mg/dLNOMS HealthcareNONE Healthcare Outside Recordson 49-77-4459Dmprlrd Records [id number]#1.00OTGTMedina Hospital Outside [id number]#1.00OTZanesville City Hospital OB BPP W NON-STRESSon 05-67-9915[place], [place] [address] Ultrasound Report Signed Patient: ALONDRA BEAVER MR#: [id number] : 1995 Acct:[id number] Age/Sex: 29 / F ADM Date: 01/08/25 Loc: US Attending Dr: José Lozano D.O. Ordering Physician: José Lozano D.O. Date of Service: 01/08/25 Procedure(s): US OB BPP w non-stress Accession Number(s): [id number] cc: José Lozano D.O.; Zita Alanis M.D. [place] [address] Patient Name: ALONDRA BEAVER MRN: [facility]:[id number] date: 1995 Sex: F Assigned Patient Location: Current Patient Location: [facility] Accession/Order Number: [id number] Exam Date: 01/08/2025 12:03 Report Date: 01/08/2025 12:44 At the request of: JOSÉ LOZANO DO Procedure: US OB BPP w non-stress Biophysical profile. Reason for exam: Abnormal BPP. COMPARISON: 01/04/2025 TECHNIQUE: Transabdominal imaging of the gravid uterus was obtained. FINDINGS: The insurance claims supervisor reports a BPP of 8 out of 8. ZULMA is normal at 14.8 cm. heart rate 135 bpm. US/US OB BPP w non-stress IMPRESSION: BPP 8 out of 8. Impression dictated by: Terry Puentes Jr., D.O. 01/08/2025 12:44 PM Dictation Location: [place] [address] Electronically authenticated by: [id number] Y Date: 01/08/2025 12:44 Dictated By: Terry Puentes M.D. Signed By: 01/08/25 1246 DD/ 1244 TD/TT: Cable Tender:RODRICKadiologivonne, Radiologist, - 01/08/2025 [place] [address] Ultrasound Report Signed Patient: ALONDRA BEAVER MR#: [id number] : 1995 Acct:[id number] Age/Sex: 29 / F ADM Date: 01/08/25 Loc: US Attending Dr: José Lozano D.O. Ordering Physician: José Lozano D.O. Date of Service: 01/08/25 Procedure(s): US OB BPP w non-stress Accession Number(s): [id number] cc: José Lozano D.O.; Zita Alanis M.D. [place] [phone] Patient Name: ALONDRA BEAVER MRN: [id number]:[id number] date: 1995 Sex: F Assigned Patient Location: Current Patient Location: [facility] Accession/Order Number: [id number] Exam Date: 01/08/2025 12:03 Report Date: 01/08/2025 12:44 At the request of: JOSÉ LOZANO DO Procedure: US OB BPP w non-stress Biophysical profile. Reason for exam: Abnormal BPP. COMPARISON: 01/04/2025 TECHNIQUE: Transabdominal imaging of the gravid uterus was obtained. FINDINGS: The insurance claims supervisor reports a BPP of 8 out of 8. ZULMA is normal at 14.8 cm. heart rate 135 bpm. US/US OB BPP w non-stress IMPRESSION: BPP 8 out of 8. Impression dictated by: Terry Puentes Jr., D.O. 01/08/2025 12:44 PM Dictation Location: [place] [address] Electronically authenticated by: [id number] Y Date: 01/08/2025 12:44 Dictated By: Terry Puentes M.D. Signed By: 01/08/25 1246 DD/ 1244 TD/TT: Cable Tender: TORREY HealthcareRadiology Study observation (narrative)NOMApurva HealthcareUS OB BPP W NON-STRESSOrdered By: Radiologist Radiology on 15-64-7771WOAG [employer] Work Phone: US OB BPP W NON-STRESSon 38-46-8836[place], [place] [address] Ultrasound Report Signed Patient: ALONDRA BEAVER MR#: [id number] : 1995 Acct:[id number] Age/Sex: 29 / F ADM Date: 01/04/25 Loc: US Attending Dr: José Lozano D.O. Ordering Physician: José Lozano D.O. Date of Service: 01/04/25 Procedure(s): US OB BPP w non-stress Accession Number(s): [id number] cc: José Lozano D.O.; Zita Alanis M.D. [place] [address] Patient Name: ALONDRA BEAVER MRN: [id number] date: 1995 Sex: F Assigned Patient Location: [facility] Current Patient Location: Accession/Order Number: [id number] Exam Date: 01/04/2025 07:10 Report Date: 01/04/2025 10:27 At the request of: JOSÉ LOZANO DO Procedure: US OB BPP w non-stress BIOPHYSICAL PROFILE: CLINICAL INFORMATION: ZULMA BORDERLINE LOW O28.8 COMPARISON: None There is a single live intrauterine gestation in cephalic presentation. The reported gestational age is 32 weeks 3 days. The heart rate qzoccerw112 beats per minute. FINDINGS: TONE: 1 or [...] amniotic fluid greater than 2 cm [Y] 2/ ZULMA: 13.4 cm Total score: 68 US/US OB BPP w non-stress IMPRESSION: FAILED BIOPHYSICAL PROFILE Impression dictated by: Zita Lu M.D. 01/04/2025 10:27 AM Dictation Location: [place] [address] Electronically authenticated by: [id number] Y Date: 01/04/2025 10:27 Dictated By: Zita Lu M.D. Signed By: 01/04/25 1030 DD/ 1027 TD/TT: Cable Tender:TBHRadiology, Radiologist, - 01/04/2025 [place] [address] Ultrasound Report Signed Patient: ALONDRA BEAVER MR#: [id number] : 1995 Acct:[id number] Age/Sex: 29 / F ADM Date: 01/04/25 Loc: US Attending Dr: José Lozano D.O. Ordering Physician: José Lozano D.O. Date of Service: 01/04/25 Procedure(s): US OB BPP w non-stress Accession Number(s): [id number] cc: José Lozano D.O.; Zita Alanis M.D. [place] [id number] Patient Name: ALONDRA BEAVER MRN: [id number] date: 1995 Sex: F Assigned Patient Location: [facility] Current Patient Location: Accession/Order Number: [id number] Exam Date: 01/04/2025 07:10 Report Date: 01/04/2025 10:27 At the request of: JOSÉ LOZANO DO Procedure: US OB BPP w non-stress BIOPHYSICAL PROFILE: CLINICAL INFORMATION: ZULMA BORDERLINE LOW O28.8 COMPARISON: None There is a single live intrauterine gestation in cephalic presentation. The reported gestational age is 32 weeks 3 days. The heart rate nhkbnuva228 beats per minute. FINDINGS: TONE: 1 or [...] Lu M.D. 01/04/2025 10:27 AM Dictation Location: [facility] Electronically authenticated by: [id number] Y Date: 01/04/2025 10:27 Dictated By: Zita Lu M.D. Signed By: 01/04/25 1030 DD/ 1027 TD/TT: Cable Tender: [facility] HealthcareRadiology Study observation (narrative)NOMS HealthcareUS OB BPP W NON-STRESSOrdered By: Radiologist Radiology on 84-86-7758UWOW Healthcare Work Phone: Urinalysis macro (dipstick) panel (U)on 01-02-2025 Bilirubin, UANegativeNegative - 4(70) +++ mg/dLNOMS HealthcareBlood, UANegative Negative - 50 Mark/mcLNOMS HealthcareClarity, UAClearNONE HealthcareColor, UA YellowNOMS HealthcareGlucose, UANegativeNegative - 2000(110) ++++ mg/dLNOMS HealthcareInterpretation and review of laboratory resultsAbnormalNONE Healthcare Ketones, UANegativeNegative - 160(16) ++++ mg/dLNOMS HealthcareLeukocytes, UA PositiveNegative - 500+++ Mahsa/mcLNOMS HealthcareComment on above:TraceNitrite, UANegativeNegative - PositiveNOMS HealthcarepH, UA6.55 - 9NOMS Healthcare Protein, UANegativeNegative - 2000(20) ++++ mg/dLNOMS HealthcareSpec Grav, UA 1.0151 - 1.03NOMS HealthcareUrobilinogen, UA0.20.2 - 12 mg/dLNOMS HealthcareNOMS HealthcareUS OB FOLLOW UP TRANSABDOMINAL APPROACHon 50-86-3476NI OB FOLLOW UP TRANSABDOMINAL APPROACHFINDINGS: Comparison made with prior examination of October [...] menstrual period. TRANSCRIBED BY: ELECTRONICALLY SIGNED BY: Moustapha JaimeNot AvailableComment on above:Order Comment: US OB SCAN FOR GROWTH Estimated Date of Delivery: 02/26/25 Gestational Age as of 12/05/2024: 34a3nHjwwspfkvg macro (dipstick) panel (U) Ordered By: Teresa Ambriz on 65-80-6400Tnttmbbbk, UANegativeNegative - 4(70) +++ mg/dLNOMS HealthcareBlood, UANegativeNegative - 50 Mark/mcLNOMS Healthcare Clarity, UAClearNOMS HealthcareColor, UAYellowNOMS HealthcareGlucose, UANegative Negative - 2000(110) ++++ mg/dLNOMS HealthcareInterpretation and review of laboratory resultsAbnormalNOMS HealthcareKetones, UANegativeNegative - 160(16) ++++ mg/dLNONE HealthcareLeukocytes, UA3+Negative - 500+++ Mahsa/mcLNOMS HealthcarepH, UA65 - 9NOMS HealthcareProtein, UANegativeNegative - 2000(20) ++++ mg/dLNOMS HealthcareSpec Grav, UA1.0151 - 1.03NOMS HealthcareUrobilinogen, UA 0.20.2 - 12 mg/dLNONE HealthcareNOMS HealthcareGLUCOSE TOLERANCE 3 HOURon 83-19-6767THDVWNJ TOLERANCE 3 HOURmg/dLNONE HealthcareComment on above:GLU FAST 93 (<95) Col: 11/28/24 0641 GLU 1HR 149 (<180) Col: 11/28/24 0743 GLU 2HR 118 (<155) Col: 11/28/24 0843 GLU 3HR 81 (<140) Col: 11/28/24 0942 CLINISYNCNONE HealthcareALL CBC WITH AUTO DIFFon 08-85-4254FLCMMWANO ABSOLUTE JCLA8XPFX HealthcareBasophils/100 WBC (Bld)0.4 %0.2 - 2.0 %NOMS Healthcare Eosinophils/100 WBC (Bld)1.2 %0.9 - 7.0 %NOMS HealthcareErythrocyte distribution width (RBC) [Ratio]13 %11.0 - 15.0 %NOMS HealthcareHematocrit (Bld) [Volume fraction]35.6 %Low36.0 - 48.0 %NOMS HealthcareHemoglobin (Bld) [Mass/Vol]11.9 g/dLLow12.0 - 16.0 g/dLNONE HealthcareIMMATURE GRANULOCYTES ABS AUTO0.13HighNONE HealthcareImmature granulocytes/100 WBC (Bld)1.2 %High0.0 - 0.5 %NOMS HealthcareInterpretation and review of laboratory resultsAbnormalNOBarnes-Jewish Hospital LYMPHOCYTES ABSOLUTE AUTO1.3NOBarnes-Jewish HospitalLymphocytes/100 WBC (Bld)11.6 %Low 20.5 - 60.0 %NOMCox MonettMCH (RBC) [Entitic mass]30.9 pg26.7 - 34.0 pgNOJefferson Memorial HospitalHC (RBC) [Mass/Vol]33.4 g/dL29.9 - 35.2 g/dLNOMS HealthcareMCV (RBC) [Entitic vol]92.5 fL81.0 - 99.0 fLNOMS HealthcareMONOCYTES ABSOLUTE AUTO0.5NOMS HealthcareMonocytes/100 WBC (Bld)4.9 %1.7 - 12.0 %NOMS HealthcareNEUTROPHILS ABSOLUTE AUTO8.8HighNOMS HealthcareNeutrophils/100 WBC (Bld)80.7 %High43.0 - 75.0 %NOMS HealthcarePlatelet mean volume (Bld) [Entitic vol]10.5 fL9.5 - 13.5 fLNOMS HealthcareTBH EO #0.1NOMS HealthcareTBH FLZ222LLNY HealthcareTBH RBC3.85 LowNOMS HealthcareTBH WBC10.9NOMS HealthcareCLINISYNCNOMS HealthcareUrinalysis macro (dipstick) panel (U)on 74-51-2689Bxurjeezb, UANegativeNegative - 4(70) +++ mg/dLNOMS HealthcareBlood, UANegativeNegative - 50 Mrak/mcLNOMS Healthcare Clarity, UAClearNOMS HealthcareColor, UAYellowNOMS HealthcareGlucose, UANegative Negative - 1999(110) ++++ mg/dLNOMS HealthcareInterpretation and review of laboratory resultsAbnormalNOMS HealthcareKetones, UANegativeNegative - 160(16) ++++ mg/dLNOMS HealthcareLeukocytes, UAModerateNegative - 500+++ Mahsa/mcLNOMS HealthcareNitrite, UANegativeNegative - PositiveNOMS HealthcarepH, UA65 - 9NOMS HealthcareProtein, UANegativeNegative - 2000(20) ++++ mg/dLNOMS HealthcareSpec Grav, UA1.011 - 1.03NOMS HealthcareUrobilinogen, UA0.20.2 - 12 mg/dLNOMS HealthcareNOMS HealthcareUrinalysis macro (dipstick) panel (U)on 10-26-2024 Bilirubin, UANegativeNegative - 4(70) +++ mg/dLNOMS HealthcareBlood, UANegative Negative - 50 Mark/mcLNOMS HealthcareClarity, UAClearNOMS HealthcareColor, UA YellowNOMS HealthcareGlucose, UANegativeNegative - 1999(110) ++++ mg/dLNOMS HealthcareInterpretation and review of laboratory resultsNormalNOBarnes-Jewish Hospital Ketones, UANegativeNegative - 160(16) ++++ mg/dLNevada Regional Medical CenterLeukocytes, UA NegativeNegative - 500+++ Mahsa/mcLNOBarnes-Jewish HospitalNitrite, UANegativeNegative - PositiveNONE HealthcarepH, UA6.55 - 9NONE HealthcareProtein, UANegativeNegative - 2000(20) ++++ mg/dLNevada Regional Medical CenterSpec Grav, UA1.021 - 1.03[facility] Urobilinogen, UA0.20.2 - 12 mg/dLNOBarnes-Jewish HospitalNONE HealthcareUS OB 14+ WEEKS ANATOMY SCANon 27-65-6230HC OB 14+ WEEKS ANATOMY SCANEXAM: US OB 14+ WEEKS ANATOMY SCAN HISTORY: [...] II, MD, PHD at 27-Oct-2024 06:14:52 AM [facility] TeleradiologyNormalNot AvailableComment on above:Order Comment: US OB ANATOMY SINGLE W US OB CERVICAL LENGTH Estimated Date of Delivery: 02/26/25 Gestational Age as of 09/28/2024: 88p0pETL TESTon 81-67-2264PGJ TEST SENT OUT UNITYNOMS GxhdjodbqzBTQ3PBGIXGMOC PgtnobchqbQYT84-08-75LWGX HealthcareUNITY BOX CLINISYNCNOMS HealthcareUrinalysis macro (dipstick) panel (U)on 08-29-2024 Bilirubin, UANegativeNegative - 4(70) +++ mg/dLNOMS HealthcareBlood, UANegative Negative - 50 Mark/mcLNOMS HealthcareClarity, UAClearNOMS HealthcareColor, UA YellowNOMS HealthcareGlucose, UANegativeNegative - 2000(110) ++++ mg/dLNOMS HealthcareInterpretation and review of laboratory resultsNormalNOMS Healthcare Ketones, UANegativeNegative - 160(16) ++++ mg/dLNOMS HealthcareLeukocytes, UA NegativeNegative - 500+++ Mahsa/mcLNOMS HealthcareNitrite, UANegativeNegative - PositiveNOMS HealthcarepH, UA65 - 9NOMS HealthcareProtein, UANegativeNegative - 2000(20) ++++ mg/dLNOMS HealthcareSpec Grav, UA1.021 - 1.03NOMS Healthcare Urobilinogen, UA0.20.2 - 12 mg/dLNOMS HealthcareNOMS HealthcareHCG ( test) Ql (U)on 33-09-0269Omcpurseqrzijv and review of laboratory resultsAbnormal NOMS HealthcarePreg Test, UrPositiveNegativeNOMS HealthcareNOMS HealthcareUS OB < 14 WEEKS EARLYon 35-07-6036XA OB < 14 WEEKS EARLYEXAM: US OB < 14 WEEKS EARLY HISTORY: Dating. COMPARISON: None available. TECHNIQUE: Two-dimensional transabdominal grayscale ultrasound imaging of the pelvis was performed.Transvaginal ultrasound was not performed. Color Doppler evaluation [...] to a gestational age of 11 weeks 3days (+/- 7 days). There is no subchorionic [...] II, MD, PHD at 11-Aug-2024 08:40:37 AM [facility] TeleradiologyNormalNot AvailableComment on above:Order Comment: US OB Patient's last menstrual period was 05/09/2024 (exact date).Urinalysis macro (dipstick) panel (U)on 18-34-4183Mbicnmtrb, UANegativeNegative - 4(70) +++ mg/dL NOMS HealthcareBlood, UANegativeNegative - 50 Mark/mcLNOMS HealthcareClarity, UA ClearNOMS HealthcareColor, UAYellowNOMS HealthcareGlucose, UANegativeNegative - 2000(110) ++++ mg/dLNOMS HealthcareInterpretation and review of laboratory resultsAbnormalNOMS HealthcareKetones, UAPositiveNegative - 160(16) ++++ mg/dL NOMS HealthcareComment on above:40Leukocytes, UANegativeNegative - 500+++ Mahsa/mcLNOMS HealthcareNitrite, UANegativeNegative - PositiveNONE HealthcarepH, UA5.55 - 9NONE HealthcareProtein, UANegativeNegative - 2000(20) ++++ mg/dLSEVIER VALLEY [facility] HealthcareSpec Grav, UA1.021 - 1.03NOBarnes-Jewish HospitalUrobilinogen, UA0.20.2 - 12 mg/dLFreeman Heart Institute HealthcareOutside Recordson 88-57-5838Oaxbwxk Records [id number]#1.00[facility] Outside Recordson 05-89-6612Vamzskg Records [id number]#1.00[facility] Consent Formson 97-49-2754Zwdzkqp Forms [id number]#1.00[facility] Cytology Cervical or vaginal smear or scraping studyon 25-33-5850BESJNevada Regional Medical Center HCG ( test) Ql (U)on 65-62-3627Ixjcoeouxfnqzq and review of laboratory resultsNoTorrance State HospitalPreg Test, UrNegativeCount includes the [facility] CMP Standardon 34-92-4961yZRZ Non AA>60Invalid Interpretation [facility] HospitalComment on above:Performed By: #### [id number], [id number], 0725498, 3064872, 2792259, 0502557, 0374037 #### [facility] (DEFAULT) [address] [place] [address] 62456oLER AA>60Invalid Interpretation [facility] Comment on above:Performed By: #### [id number], [id number], 5436947, 4651344, 6458758, 8081674, 0622561 #### [facility] (DEFAULT) [address] [place] [address] 86511Rgvgpkq [Mass/Vol]4.4 g/dLTroy3.5-5.0[facility] Comment on above:Performed By: #### [id number], 7786414306, 2558375, 6432030, 8647015, 5707623, 2296097 #### [facility] (DEFAULT) [address] [place] [address] 01881Cbxbkrd/Globulin [Mass ratio]1.4 {ratio}Normal1.4-2.6 [facility] HospitalComment on above:Performed By: #### [id number], [id number], 3819861, 1978239, 7048347, 8052503, 1413971 #### [facility] (DEFAULT) [address] [place] [address] 38201Pgn Phos67 IU/NUkqacr16-07Igqjzhwq HospitalComment on above:Performed By: #### [id number], [id number], 0535047, 1441542, 0747421, 9372850, 9544078 #### [facility] (DEFAULT) [address] [place] [address] 69177QKR [Catalytic activity/Vol]19.0 U/OYjaxpr81.0-54.0 [facility] HospitalComment on above:Performed By: #### [id number], [id number], 6533086, 3249566, 6170634, 1932473, 5729416 #### [facility] (DEFAULT) [address] [place] [address] 91582Xjscw gap [Moles/Vol]10.8 mmol/LNormal5.0-19.0[facility] HospitalComment on above:Performed By: #### [id number], 9622248819, 1613774, 8235316, 9382646, 7093509, 0887358 #### [facility] (DEFAULT) [address] [place] [address] 73320JVY [Catalytic activity/Vol]21 U/JVthjrd09-71Vexvcdjw HospitalComment on above:Performed By: #### [id number], 6962924735, 2913298, 9240440, 2463928, 6147522, 2863845 #### [facility] (DEFAULT) [address] [place] [address] 91320Bzgs Total0.7 mg/dLNormal0.3-1.2MC[facility] Clinic [facility]ina HospitalComment on above:Performed By: #### [id number], 0315993422, 0896558, 5549495, 4547023, 8213822, 1230292 #### [facility] (DEFAULT) [address] [place] [address] 79110Gtzzrhe [Mass/Vol]8.9 mg/dLNormal8.9-10.3MC[facility] Comment on above:Performed By: #### [id number], 3479549082, 9094765, 9567015, 8984252, 3727119, 1309010 #### [facility] (DEFAULT) [address] [place] [address] 36739Gwtewczi [Moles/Vol]100 mmol/EBtq330-054Xjgkruff Hospital Comment on above:Performed By: #### [id number], 7619035097, 9960556, 4250361, 3506522, 3379541, 8914490 #### [facility] (DEFAULT) [address] [place] [address] 57731FO5 [Moles/Vol]26 mmol/FZdxdlv98-51Zxdyldsg Hospital Comment on above:Performed By: #### [id number], 0632061003, 6917098, 4971967, 3387809, 4840052, 3015667 #### [facility] (DEFAULT) [address] [place] [address] 30307Sspuetshbp [Mass/Vol]0.86 mg/dLNormal0.60-1.30[facility] HospitalComment on above:Performed By: #### [id number], 4213607780, 0036895, 2206986, 9778569, 1590491, 7435902 #### [facility] (DEFAULT) [address] [place] [address] 36837Xgzkejbr (S) [Mass/Vol]3.1 g/dLNormal1.5-4.3MC[facility] HospitalComment on above:Performed By: #### [id number], 4370268612, 2038074, 0738623, 5603214, 3332388, 6323861 #### [facility] (DEFAULT) [address] [place] [address] 16001Paancyf [Mass/Vol]90.0 mg/xNMxjvyc33.0-118.0[facility] HospitalComment on above:Performed By: #### [id number], 7265184618, 8831922, 1152197, 8019885, 2611847, 0240799 #### [facility] (DEFAULT) [address] [place] [address] 35654Bwfkwkabiz621 mOsm/LInvalid Interpretation CodePromedica Fostoria Community Hospital HospitalComment on above:Performed By: #### [id number], 9441006898, 2373564, 9617395, 6085856, 5137719, 0844275 #### [facility] (DEFAULT) [address] [place] [address] 15310Mjfkpjfgi [Moles/Vol]3.8 mmol/LNormal3.6-5.1Mprem[facility] HospitalComment on above:Performed By: #### [id number], 0144701292, 8108463, 6887081, 1908601, 7287666, 2579345 #### [facility] (DEFAULT) [address] [place] [address] 73865Eojiols [Mass/Vol]7.5 g/dLNormal6.5-8.1Mpremier health [facility] Hospital Comment on above:Performed By: #### [id number], 2171051066, 6174278, 6599964, 6990005, 9530886, 3453401 #### [facility] (DEFAULT) [address] [place] [address] 62163Oasvzz [Moles/Vol]133.0 mmol/YKsg030.0-144.0[facility] HospitalComment on above:Performed By: #### [id number], 4256660335, 9861583, 8346460, 8163356, 0158020, 1390852 #### [facility] (DEFAULT) [address] [place] [address] 71671Pubh nitrogen [Mass/Vol]17 mg/dLNormal8-26[facility] HospitalComment on above:Performed By: #### [id number], 2172813481, 9091391, 1918444, 7868794, 0538029, 7151651 #### [facility] (DEFAULT) [address] [place] [address] 72621Cfqb nitrogen/Creatinine [Mass ratio]19.7 mg/mgHigh 4.6-16.2Mpremier health [facility] HospitalComment on above:Performed By: #### [id number], 0384471070, 0271742, 5239101, 7341789, 4296251, 2770753 #### [facility] (DEFAULT) [address] [place] [address] 51038KZWnm 98-50-4207Clpvk glutamyl transferase [Catalytic activity/Vol]20.0 U/LNormal7.0-50.0[facility] HospitalComment on above:Performed By: #### [id number], 0355765837, 3928769, 8805556, 5719455, 3893130, 3693984 #### [facility] (DEFAULT) [address] [place] [address] 11150Cima Levelon 31-07-4755Csmk [Mass/Vol]93.0 ug/dLNormal 28.0-170.0[facility] HospitalComment on above:Performed By: #### [id number], 8340291509, 9130353, 7614316, 1929600, 5114794, 3589037 #### [facility] (DEFAULT) [address] [place] [address] 10924MBXrh 44-39-5744WJO745.0 IU/MAawnvh47.0-192.0[facility] HospitalComment on above:Performed By: #### [id number], 4972920532, 4352612, 6538657, 6172599, 0708063, 8673534 #### [facility] (DEFAULT) [address] [place] [address] 26244Ewcmu Panel Standardon 92-24-2086Xnnvpdgliix [Mass/Vol] 214.0 mg/aEPfyp27.0-200.0[facility] HospitalComment on above:Performed By: #### [id number], 2105844655, 0261173, 3343331, 0660692, 4051488, 5815947 #### [facility] (DEFAULT) [address] [place] [address] 87837Jwbrurdktbc in HDL [Mass/Vol]64 mg/mZEnlcbt94-10Ebwxblzx HospitalComment on above:Performed By: #### [id number], 8668777420, 7176557, 8516329, 1542655, 5725772, 1102041 #### [facility] (DEFAULT) [address] [place] [address] 84405Riwbsizgapv in LDL [Mass/Vol]144 mg/dLHigh1-100[facility] HospitalComment on above:Performed By: #### [id number], 4610095868, 2556099, 5660255, 7899212, 8898670, 0257827 #### [facility] (DEFAULT) [address] [place] [address] 88835Mgqdhzbndlx.total/Cholesterol in HDL [Mass ratio]3.3 {ratio}Normal0.0-4.5[facility] HospitalComment on above:Performed By: #### [id number], 4532973365, 9235936, 6008854, 9205972, 7315863, 3023042 #### [facility] (DEFAULT) [address] [place] [address] 06803Murbsavxgfnl [Mass/Vol]28.0 mg/dLNormal0.0-150.0[facility] HospitalComment on above:Performed By: #### [id number], 2950897584, 7815303, 6718579, 9051942, 1364588, 8239440 #### [facility] (DEFAULT) [address] [place] [address] 93081ZSJY.6 mg/dLNormal5-40[facility] HospitalComment on above: Performed By: #### [id number], 7948577962, 2107175, 8262822, 9265847, 4868220, 6969227 #### [facility] (DEFAULT) [address] [place] [address] 37981Cqmubn 62-63-7898Brlmvbaeg [Mass/Vol]2.9 mg/dLNormal 2.5-4.6Mprem[facility] HospitalComment on above:Performed By: #### [id number], 3777977020, 1141127, 1356569, 3532193, 1643319, 6466037 #### [facility] (DEFAULT) [address] [place] [address] 70138Vgcp Acidon 21-18-8561Tdvii [Mass/Vol]4.0 mg/dLNormal 2.6-8.0[facility] HospitalComment on above:Performed By: #### [id number], 7323840031, 0605155, 0426303, 9911950, 1183047, 2876714 #### [facility] (DEFAULT) [address] [place] [address] 06957NH chest 2V*on 58-07-3357PP chest 2V*[facility] [place] [address] XRay Report Signed Patient: Alondra Sanches MR#: [id number] : 1995 Acct:[id number] Age/Sex: 27 / F ADM Date: 03/02/23 Loc: [facility] Room: Type: [facility] Attending Dr: Lisandro Buitrago DO Copies to: Lisandro Buitrago DO Ordering Provider: Lisandro Buitrago DO Date of Service: 03/02/23 XR/XR shoulder LT min 2V*: Left shoulder pain ([id number]) XR/XR chest 2V*: Left shoulder pain;Chest pain [...] Puentes Jr., D.OReese03/02/2023 4:13 PM Dictation Location: RADIO-PC-14 Transcribed By: BON 03/02/231612 Dictated By: Terry Puentes Jr, 03/02/231611 Signed By: 03/02/231612[facility] W MANUAL DIFFon 70-45-5474RZBIGCPU LYMPH #NormalThe Savannah HospitalComment on above:Performed By: #### YASMIN #### [facility] [address] [place] [address] Dr. Susannah HopkinsATYPICAL LYMPH %NormalThe Savannah HospitalComment on above: Performed By: #### YASMIN #### [facility] [address] [place] [address] Dr. Susannah Nice #0.3 103/ulNormal0.0-0.3The [facility] HospitalComment on above:Performed By: #### YASMIN #### [facility] [address] [place] [address] Dr. Susannah Nice %2 %Normal0-5The [facility] HospitalComment on above:Performed By: #### YASMIN #### [facility] [address] [place] [address] Dr. Susannah Lopez #0.00 103/ulNormal0.00-0.10The [facility] HospitalComment on above:Performed By: #### YASMIN #### [facility] [address] [place] [address] Dr. Susannah Lopez %0.0 %Critically low0.2-2.0The [facility] HospitalComment on above:Performed By: #### CBCOCTAVIANO #### [facility] [address] [place] [address] Dr. Susannah Santizo #NormalThe [facility]annah HospitalComment on above:Performed By: #### CBCOCTAVIANO #### [facility] [address] [place] [address] Dr. Susannah Santizo %NormalKindred Healthcare HospitalComment on above:Performed By: #### YASMIN #### [facility] [address] [place] [address] Dr. Susannah Marcum WBCNormal4.0-11.0[facility] HospitalComment on above: Performed By: #### CBCOCTAVIANO #### [facility] [address] [place] [address] Dr. Susannah Luis #0.00 103/ulNormal0.00-0.70The [facility] CenterComment on above:Performed By: #### CBCOCTAVIANO #### [facility] [address] [place] [address] Dr. Susannah Luis%0.0 %Critically low0.9-7.0The [facility] CenterComment on above:Performed By: #### CBCOCTAVIANO #### [facility] [address] [place] [address] Dr. Susannah HopkinsHCT46.0 %Usjoch30.0-48.0The [facility] CenterComment on above: Performed By: #### YASMIN #### [facility] [address] [place] [address] Dr. Susannah HopkinsHGB15.7 g/wrHdwmzj51.0-16.0The [facility] CenterComment on above: Performed By: #### YASMIN #### [facility] [address] [place] [address] Dr. Susannah Rodriguez #0.69 103/ulCritically low1.20-3.80The [facility] on above:Performed By: #### YASMIN #### [facility] [facility] [address] [place] [address] Dr. Susannah Rodriguez%4.0 %Critically low20.5-60.0The [facility] Medical CenterComment on above:Performed By: #### CBCOCTAVIANO #### [facility] [address] [place] [address] Dr. Susannah HopkinsMCH30.1 fnArriqh56.7-34.0The [facility] CenterComment on above: Performed By: #### CBCOCTAVIANO #### [facility] [address] [place] [address] Dr. Susannah MackHC34.1 g/fyKjzyvf90.9-35.2The [facility], Incment on above:Performed By: #### YASMIN #### [facility] [address] [address] [address] Susannah Jara88.3 yGVovizz52.0-99.0The [facility] CenterComment on above: Performed By: #### YASMIN #### [facility] [address] [address] [address] Susannah HarrisOCYTE #NormalThe [facility] HospitalComment on above: Performed By: #### YASMIN #### [facility] [address] [address] [address] Susannah HarrisOCYTE %NormalParkview Health Montpelier HospitalComment on above: Performed By: #### YASMIN #### [facility] [address] [place] [address] Dr. Susannah Ware#1.20 103/ulCritically high0.30-0.80The [facility] on above:Performed By: #### YASMIN #### [facility] [address] [place] [address] Dr. Susannah Ware%7.0 %Normal1.7-12.0The [facility] CenterComment on above: Performed By: #### YASMIN #### [facility] [address] [place] [address] Dr. Susannah Baca9.8 fLNormal9.5-13.5The [facility] CenterComment on above: Performed By: #### YASMIN #### [facility] [address] [place] [address] Dr. Susannah Hermosillo #NormalParkview Health Montpelier HospitalComment on above:Performed By: #### YASMIN #### [facility] [address] [place] [address] Dr. Susannah Hermosillo %NormalParkview Health Montpelier HospitalComment on above:Performed By: #### YASMIN #### [facility] [address] [place] [address] Dr. Susannah LudwigBCNormalThe [facility] CenterComment on above:Performed By: #### PRANAVOCTAVIANO #### [facility] [address] [place] [address] Dr. Susannah HopkinsPLT278 103/gdXsdory156-991Ixp [facility] CenterComment on above: Performed By: #### CBCMAN #### [facility] [address] [place] [address] Dr. Susannah HopkinsRBC5.21 106/ulNormal4.20-5.40The [facility] CenterComment on above:Performed By: #### CBCOCTAVIANO #### [facility] [address] [place] [address] Dr. Susannah HopkinsRDW11.7 %Xbfxlt47.0-15.0[facility] on above: Performed By: #### YASMIN #### [facility] [address] [place] [address] Dr. Susannah Willams #14.96 103/ulCritically high1.40-6.50[facility] Comment on above:Performed By: #### CBCOCTAVIANO #### [facility] [address] [place] [address] Dr. Susannah Willams %87.0 %Critically high43.0-75.0[facility] on above:Performed By: #### CBCOCTAVIANO #### [facility] [address] [place] [address] Dr. Susannah BlancasBC17.2 103/ulCritically high4.0-11.0[facility] on above:Performed By: #### CBCOCTAVIANO #### [facility] [address] [place] [address] Dr. Susannah Powers A AND B AGon 89-63-5956RHJRHXNDZTQVRMercy Health Defiance Hospital on above:Result Comment: Negative for Flu A protein angiten. Infection due to Flu A cannot be ruled out. FluA angiten in the sample may be below the detection limit of the test.Performed By: #### INFLUAB #### [facility] [address] [place] [address] Dr. Susannah ArangoUBNEGHSEE [facility] on above: Result Comment: Negative for Flu B protein antigen. Infection due to Flu B cannot be ruled out. FluB antigen in the sample may be below the detection limit of the test.Performed By: #### INFLUAB #### [facility] [address] [place] [address] Dr. Susannah Byrd AGNegativeNormalNEGATIVE SEE COMMENTThe [facility] on above:Performed By: #### INFLUAB #### [facility] [address] [place] [address] Dr. Susannah Powers B AGNegativeNormalNEGATIVE SEE COMMENTThe [facility] on above:Performed By: #### INFLUAB #### [facility] [address] [place] [address] Dr. Susannah HopkinsINTERNAL CONTROLSWithin Normal LimitsNormalWithin Normal Limits [facility] on above:Performed By: #### INFLUAB #### [facility] [address] [place] [address] Dr. Susannah Chery HCG QUALon 02-52-2296PMFVTFCOW, QUALNegativeNormalNEGATIVE [facility] on above:Performed By: #### PREG #### [facility] [address] [place] [address] Dr. Susannah HopkinsPROF 14(COMP METB)on 72-50-0819Sjasdht [Mass/Vol]4.4 g/dLNormal 3.4-5.0The [facility] CenterComascension borg[facility] on above:Performed By: #### CMP #### [facility] [address] [place] [address] Dr. Susannah HopkinsAlbumin/Globulin [Mass ratio]1.1 {ratio}NormalThe [facility] on above:Performed By: #### CMP #### [facility] [address] [place] [address] Dr. Susannah FofanaP [Catalytic activity/Vol]71 U/JFlbjwy75-058Dzw [facility] on above:Performed By: #### CMP #### [facility] [address] [address] [address] Susannah FofanaT [Catalytic activity/Vol]19 U/ZTwdlzy89-37Zva [facility] CenterComment on above:Performed By: #### CMP #### [facility] [address] [address] [address] Susannah HopkinsAnion gap [Moles/Vol]15.1 mmol/LNormalThe [facility] Comment on above:Performed By: #### CMP #### [facility] [address] [address] [address] Susannah HopkinsAST [Catalytic activity/Vol]23 U/LCyjiky70-92Zcu [facility] CenterComment on above:Performed By: #### CMP #### [facility] [address] [place] [address] Dr. Susannah HopkinsBilirubin [Mass/Vol]0.9 mg/dLNormal0.2-1.3The [facility] Comment on above:Performed By: #### CMP #### [facility] [address] [place] [address] Dr. Susannah HopkinsCalcium [Mass/Vol]9.5 mg/dLNormal8.5-10.1The [facility] Comment on above:Performed By: #### CMP #### [facility] [address] [place] [address] Dr. Susannah HopkinsChloride [Moles/Vol]101 mmol/XKpbrrb06-474Yen [facility] Comment on above:Performed By: #### CMP #### [facility] [address] [place] [address] Dr. Susannah HopkinsCO2 [Moles/Vol]23.8 mmol/XXpgfpf82.0-30.0The [facility] Comment on above:Performed By: #### CMP #### [facility] [address] [address] [address] Susannah HopkinsCreatinine [Mass/Vol]1.04 mg/dLNormal0.52-1.04The [facility] CenterComment on above:Performed By: #### CMP #### [facility] [address] [place] [address] Dr. Susannah GaonaGFR-AF CAYMAN ISLANDER>60Normal>=60The [facility] CenterComment on above:Performed By: #### CMP #### [facility] [address] [place] [address] Dr. Susannah GaonaGFR-NON AF CAY[place] ISLANDER>60Normal>=60The [facility] CenterComment on above:Performed By: #### CMP #### [facility] [address] [address] [address] Susannah HopkinsGlobulin (S) [Mass/Vol]3.9 g/dLNormalThe [facility] CenterComment on above:Performed By: #### CMP #### [facility] [address] [place] [address] Dr. Susannah HopkinsGlucose [Mass/Vol]157 mg/dLCritically rdzs48-849Qpq [facility] CenterComment on above:Performed By: #### CMP #### [facility] [address] [place] [address] Dr. Susannah HopkinsPotassium [Moles/Vol]3.9 mmol/LNormal3.4-5.0The [facility] Comment on above:Performed By: #### CMP #### [facility] [address] [place] [address] Dr. Susannah HopkinsProtein [Mass/Vol]8.3 g/dLCritically high6.1-8.2The [facility] CenterComment on above:Performed By: #### CMP #### [facility] [address] [place] [address] Dr. Susannah HopkinsSodium [Moles/Vol]136 mmol/LCritically eze598-841Off [facility] CenterComment on above:Performed By: #### CMP #### [facility] [address] [place] [address] Dr. Susannah HopkinsUrea nitrogen [Mass/Vol]20.0 mg/dLCritically high7.0-18.0The [facility] CenterComment on above:Performed By: #### CMP #### [facility] [address] [place] [address] Dr. Susannah HopkinsUrea nitrogen/Creatinine [Mass ratio]19.2 mg/mgOur Lady of Mercy HospitalComment on above:Performed By: #### CMP #### [facility] [address] [place] [address] Dr. Susannah Hopkins Vital Signs Date TimeVital SignValuePerforming SqhooqhnrVbpclscr32-83-4295 08:34-0400Body mass index (BMI) [Ratio]31.2 kg/m2Nadine DE JESUS Work Phone: [phone] [place], [place] [address]Lvogkhtbqu43-42-2102 08:34-0400Body plyquk54.89 kgNadine Galvan PA Work Phone: [phone] [place], [place] [address]Fzepjyykog00-41-6971 08:34-0400Diastolic blood mm[Hg]Nadine Galvan PA Work Phone: [phone] [place], [place] [address]Jcsulmpwhd67-49-8237 08:34-0400Systolic blood uatgzyek935 mm[Hg]Nadine Galvan PA Work Phone: [phone] [place], [place] [address]Pnyqlsczpl70-11-8303 08:49-0400Body mass index (BMI) [Ratio]31.53 kg/o7CrdvbyvtKera Youssefly [employer] Work Phone: [phone])[facility] [place], [place] [address]Mddkozwggr92-26-8611 08:49-0400Body oajrqj23.74 kgArmindaa Jen [employer] Work Phone: [phone] [place], [place] [address]Qioovzctno40-93-1109 08:49-0400Diastolic blood wuiurciz80 mm[Hg]Kera Jen [employer] Work Phone: [phone])[facility] [place] [address]-09-2025 08:49-0400Systolic blood wnpyypcq284 mm[Hg]Kera Jen [employer] Work Phone: [phone] [place], [place] [address]Injeauhxws58-72-2219 08:56-0400Body mass index (BMI) [Ratio]30.47 kg/s5MwgythfnKera Li [employer] Work Phone: [phone] [place], [place] [address]Zplsgiyptp21-15-8622 08:56-0400Body vykngs81.02 kgArmindaa Jen [employer] Work Phone: [phone])[address] [place] [address]-02-2025 08:56-0400Diastolic blood kaizduhs48 mm[Hg]Kera Li [employer] Work Phone: [phone])[facility] [place], [place] [address]Sbphzsyolb87-76-3297 08:56-0400Systolic blood zwxjmain235 mm[Hg]Kera Li [employer] Work Phone: [phone])[facility] [place], [place] [address]Esbykgmxkc02-27-5563 08:37-0400Body mass index (BMI) [Ratio]29.98 kg/y2Dyqwg Blake DO Work Phone: [phone])[facility] [place], [place] [address]Ikujmigubv15-03-6721 08:37-0400Body wgstda33.77 kgCorey Blake DO Work Phone: [phone])[address] [place], [place] [address]9-22-2025 08:37-0400Diastolic blood uwnfoghn36 mm[Hg]José Blake DO Work Phone: [phone])[facility] [place], [place] [address]Noxxmvmuoe32-95-1277 08:37-0400Systolic blood fsfhcjid743 mm[Hg]José Blake DO Work Phone: 1(697)[address] [place], [place] [address]9-08-2025 09:07-0400Diastolic blood ofjsqhul84 mm[Hg]Kera Li [employer] Work Phone: [phone])[facility] [place], [place] [address]Dbzqguegzb79-44-1732 09:07-0400Systolic blood rwdatqkr904 mm[Hg]Kera Li [employer] Work Phone: [phone])[address] [place], [place] [address]9-08-2025 09:06-0400Body mass index (BMI) [Ratio]29.85 kg/w3UryumhdyKera Li [employer] Work Phone: 1(452)[address] [place], [place] [address]9-08-2025 09:06-0400Body lcscwo30.43 kgKera Li [employer] Work Phone: [phone])[address] [place], [place] [address]8-26-2025 08:26-0400Body mass index (BMI) [Ratio]28.96 kg/e4Uhatz Blake DO Work Phone: [phone])[facility] [place], [place] [address]Qzaibocnxf30-10-6159 08:26-0400Body .16 kgCorey Blake DO Work Phone: [facility] CenterXqqcgsbuuv99-51-4658 08:26-0400Diastolic blood ypounbpw20 mm[Hg]José Blake DO Work Phone: [facility] CenterGuybowjhsg23-24-3310 08:26-0400Systolic blood mm[Hg]José Blake DO Work Phone: [facility] CenterRyvpbggndj48-09-9883 09:04-0400Body mass index (BMI) [Ratio]28.7 kg/m2Amy Galileo PA Work Phone: [facility] CenterXwikhlwaya02-94-4899 09:04-0400Body bfhfda60.48 kgAmy Galileo PA Work Phone: [facility] CenterQxlcrwlhas34-76-1693 09:04-0400Diastolic blood tnvzxjyc16 mm[Hg]Nadine Galvan PA Work Phone: [facility] CenterWylcihfbwq92-48-7307 09:04-0400Systolic blood xuekxsyy741 mm[Hg]Nadine Galvan PA Work Phone: [facility] CenterAzmtmdgoqo42-84-4555 09:23-0400Body mass index (BMI) [Ratio]28.52 kg/n1Ghylv Blake DO Work Phone: [facility] CenterGtlvnrgdky37-65-5930 09:23-0400Body .03 kgCorey Blake DO Work Phone: [facility] CenterGwxmrlqmzh63-39-6498 09:23-0400Diastolic blood zocclsum90 mm[Hg]José Blake DO Work Phone: [facility] CenterZeuwwnyysh01-41-6559 09:23-0400Systolic blood bhptnluv727 mm[Hg]José Blake DO Work Phone: [facility] CenterSouriaqlew13-04-8051 08:52-0400Body mass index (BMI) [Ratio]28.19 kg/m2Amy Galileo PA Work Phone: [facility] CenterGvloxkkvwn66-62-5611 08:52-0400Body laozpx98.18 kgAmy Galileo PA Work Phone: [facility] CenterAehdnhfngt55-39-1276 08:52-0400Diastolic blood czzpuxkk70 mm[Hg]Nadine DE JESUS Work Phone: [facility] CenterOabqpctoae75-40-7406 08:52-0400Systolic blood lqudctlo751 mm[Hg]Nadine DE JESUS Work Phone: [facility] CenterEhotwqekwy76-57-4578 12:05-0400Body mass index (BMI) [Ratio]26.93 kg/h8Ucdrb Blake DO Work Phone: 1(852)641-[address] [place], [place] [address]Hsealklpty40-72-2910 12:05-0400Body .95 kgCorey Blake DO Work Phone: [facility] CenterZezcrwtlzb25-94-8206 12:05-0400Diastolic blood tlteuqcv50 mm[Hg]José Blake DO Work Phone: [facility] CenterZzfifomixy74-90-5498 12:05-0400Systolic blood xdlgirqx365 mm[Hg]José Blake DO Work Phone: 1(502)392-[address] [place], [place] [address]Uljtbungop48-86-9022 14:34-0400Body mass index (BMI) [Ratio]25.65 kg/b0Orfpv Blake DO Work Phone: [facility] CenterYyirgiprea57-41-3094 14:34-0400Body .68 kgCorey Blake DO Work Phone: [facility] CenterQstylcsubm87-75-4769 14:34-0400Diastolic blood ojqezeqo55 mm[Hg]José Blake DO Work Phone: [facility] CenterQbwevkpmyg38-74-0550 14:34-0400Systolic blood tmjuhkpe827 mm[Hg]José Blake DO Work Phone: 1(368)683-[address] [place], [place] [address]Oohajvjhbz49-75-9839 14:55-0400Body mczefq245 cm [facility]04-03-2025 14:55-0400Body mass index (BMI) [Ratio]25.18 kg/m2[facility]04-03-2025 14:55-0400Body dgyogl59.47 kgMiss[facility]04-03-2025 14:55-0400Diastolic blood eiknksft96 mm[Hg][facility]04-03-2025 14:55-0400Systolic blood vxikkvig696 mm[Hg][facility]01-07-2025 12:44-0500Body helpkh69.32 kgMadeleine Bundy MD Work Phone: [facility] CenterTkrjvkzlqr83-34-6251 12:44-0500Diastolic blood vpbnguyg40 mm[Hg]Madeleine Bundy MD Work Phone: 1([phone]-[facility] CenterPygbiysbdo58-37-3790 12:44-0500Systolic blood tpsxbkye935 mm[Hg]Madeleine Bundy MD Work Phone: 1(709)934-[address] [place], [place] [address]Okayxhagdc33-34-4235 15:08-0400Body umxwbk36.22 kgMadeleine Bundy MD Work Phone: [phone])359-[facility] CenterLxxbpbxvos40-10-7280 15:08-0400Diastolic blood senkeprg92 mm[Hg]Madeleine Bundy MD Work Phone: [facility] CenterDcndkjxawz35-42-7139 15:08-0400Systolic blood yzojbkdu786 mm[Hg]Madeeline Bundy MD Work Phone: [facility] CenterOadktrhekw31-71-4402 07:30-0500Body uckopq662.75 cmTyrell Stiles Other [employer] Other 01-03-2024 07:30-0500Body mass index (BMI) [Ratio] 25.41 kg/v0DbwsxnfTyrell Stiles Other [facility] [employer] Other 01-03-2024 07:30-0500Body .05 kgTyrell Stiles Other [facility] [employer] Other 01-03-2024 07:30-0500Diastolic blood cacidufj11 mm[Hg] Tyrell Stiles Other [employer] Other 01-03-2024 07:30-0500Respiratory rate16 /minDelisattmatilde Stiles Other [employer] Other 01-03-2024 07:30-3138CfE4% (BldA) [Mass fraction]98 % Tyrell Stiles Other [employer] Other 01-03-2024 07:30-0500Systolic blood jrorfkep480 mm[Hg] Tyrell Cuellarmer Other [employer] Other 10-18-2023 12:30-0400Body cdooej817.75 cmSnowteri Martínezapurva Other [employer] Other 10-18-2023 12:30-0400Body mass index (BMI) [Ratio]25.2 kg/f8KuyewLisandro Buitrago Other [employer] Other 10-18-2023 12:30-0400Body skqodi53.5 kgBreteri Buitrago Other [employer] Other 10-18-2023 12:30-0400Diastolic blood izupilxo92 mm[Hg] Lisandroteri Buitrago Other [employer] Other 10-18-2023 12:30-0400Respiratory rate16 /minBreteri Minna Other [employer] Other 10-18-2023 12:30-3929UlZ6% (BldA) [Mass fraction]99 % Lisandro MauricioTecogen Other [employer] Other 10-18-2023 12:30-0400Systolic blood gdigizpa686 mm[Hg] Lisandro Buitrago Other [employer] Other Encounters Encounter DateEncounter TypeCare ProviderFacilityStart: 02-22-2025 End: 95-13-9726Boqgpj Honey DE JESUS Work Phone: [facility] [place] [facility]BGYNStart: 02-22-2025 End: 25-96-4831Seelpw Honey DE JESUS Work Phone: [facility] [place] [facility]BGYNStart: 02-22-2025 End: 13-87-2738Zekgwbuo flow Ronal DE JESUS Work Phone: [facility] OBGYNComment on above:Third trimester ([facility]); 39 weeks gestation of ([facility])Start: 02-22-2025 End: 18-67-8405dohirapmgvRWO RAMEYNot AvailableStart: 02-15-2025 End: 30-70-0183Jhcwsmrgs Result EncounterCorey Blake DO Work Phone: [facility] External Department UnsolicitedStart: 02-15-2025 End: 73-59-6912Yoashepud Result EncounterCorey Blake DO Work Phone: [facility] External Department UnsolicitedStart: 02-15-2025 End: 54-50-3306Poxlkf outpatient visit 15 minutesKera Li NP Work Phone: [facility] OBGYNComment on above:Third trimester ([facility]); 38 weeks gestation of ([facility])Start: 02-15-2025 End: 96-02-4882rywtxpgkseCZDLPIDT EBERLYNot AvailableStart: 02-08-2025 End: 67-69-1554Jcwxeo Martina Li [employer] Work Phone: [facility] [place] [facility]BGYNStart: 02-08-2025 End: 54-17-6361Rlhryz Martina Youssefly [employer] Work Phone: [facility] [place] [facility]BGYNStart: 02-08-2025 End: 37-85-3578Udtuzdbzw Result EncounterCorey Blake DO Work Phone: [facility] External Department UnsolicitedStart: 02-08-2025 End: 40-55-0094Jloxtjul flow sheetKera Li [employer] Work Phone: [facility] [place] [facility]BGYNComment on above:Third trimester ([facility]); 37 weeks gestation of ([facility])Start: 02-08-2025 End: 43-82-3369pnqwedtexnHWHZVFXN EBERLYNot AvailableStart: 02-01-2025 End: 47-05-6436Favmqpnkh Result EncounterCorey Blake DO Work Phone: [facility] External Department UnsolicitedStart: 02-01-2025 End: 32-96-8760Relndmqzj Result EncounterCorey Blake DO Work Phone: [facility] External Department UnsolicitedStart: 01-29-2025 End: 63-13-5480Vythxd flowsheetCorey Blake DO Work Phone: [facility]BGYNStart: 01-29-2025 End: 38-36-6329Lpxdct flowsheetCorey Blake DO Work Phone: [facility]BGYNStart: 01-29-2025 End: 41-68-9590Qlxcllqj flow sheetCorey Blake DO Work Phone: [facility] [place] [facility]BGYNComment on above:Third trimester ([facility]); 36 weeks gestation of ([facility])Start: 01-29-2025 End: 76-31-7354jvdvuraewsJKCWS FAZIONot AvailableStart: 01-25-2025 End: 77-61-0995Urkwdbavu Result EncounterCorey Blake DO Work Phone: [facility] Department UnsolicitedStart: 01-25-2025 End: 66-26-1459Donalpxgb Result EncounterCorey Blake DO Work Phone: [facility] Department UnsolicitedStart: 01-18-2025 End: 98-53-5796Ffwvncqyi Result EncounterCorey Blake DO Work Phone: [facility] Department UnsolicitedStart: 01-18-2025 End: 58-26-1698Vgorcpkkb Result EncounterCorey Blake DO Work Phone: [facility] Department UnsolicitedStart: 01-15-2025 End: 62-58-7568Ricvlo flowsheetKera Li [employer] Work Phone: [facility] [place] [facility]BGYNStart: 01-15-2025 End: 90-49-4909Wrefbo flowsheetKera Li [employer] Work Phone: [facility] [place] [facility]BGYNStart: 01-15-2025 End: 73-67-6524Vggamzth flow sheetKera Li [employer] Work Phone: [facility] OBGYNComment on above:Third trimester ([facility]); 34 weeks gestation of ([facility]Start: 01-15-2025 End: 09-40-1292udwxcstcmdDLYKRPJQ VANESSALYNot AvailableStart: 01-08-2025 End: 11-16-9240Itjdpxbiv Result EncounterCorey Blake DO Work Phone: [facility] Department UnsolicitedStart: 01-08-2025 End: 10-68-2981Tubykvkdt Result EncounterCorey Blake DO Work Phone: [facility] Department UnsolicitedStart: 01-04-2025 End: 92-14-7662Tkztxqlzq Result EncounterCorey Blake DO Work Phone: [facility] Department UnsolicitedStart: 01-04-2025 End: 72-82-2402Vqoujbxxx Result EncounterCorey Blake DO Work Phone: [facility] External Department UnsolicitedStart: 01-02-2025 End: 19-70-8744Yzmqrq flowsheetCorey Blake DO Work Phone: [facility] [place] [facility]BGYNStart: 01-02-2025 End: 17-30-5982Mteibp flowsheetCorey Blake DO Work Phone: [facility] [place] [facility]BGYNStart: 01-02-2025 End: 57-93-0953Joazdesm flow sheetCorey Blake DO Work Phone: [facility] [place] OBGYNComment on above:Third trimester ([facility]); 32 weeks gestation of ([facility]); ZULMA (amniotic fluid index) borderline lowStart: 01-02-2025 End: 27-00-9572kaflnosedmLGFXZ FAZIONot AvailableStart: 12-19-2024 End: 89-84-1014Yfaeyhfo flow Ronal DE JESUS Work Phone: [facility] [place]BGYNComment on above:30 weeks gestation of ([facility] [place] Third trimester ([facility] [place] HSV infectionStart: 12-19-2024 End: 06-63-3032rimatkznrxAGE RAMEYNot AvailableStart: 12-05-2024 End: 78-76-6622Jadjgj flowsheetCorey Blake DO Work Phone: [facility] [place] [facility]BGYNStart: 12-05-2024 End: 78-61-2687Dqkxyi flowsheetCorey Blake DO Work Phone: [facility] [place] OBGYNStart: 12-05-2024 End: 20-20-7638Kqqzwiqz flow sheetCorey Blake DO Work Phone: [facility] [place] OBGYNComment on above:Third trimester ([facility] [place]); 28 weeks gestation of ([facility] [place]); HSV infection; size inconsistent with dates ([facility])Start: 12-05-2024 End: 85-03-2379wrwqgobfbaXSZMS FAZIONot AvailableStart: 11-28-2024 End: 58-14-6717Mfgtbdmcl Result EncounterNadine Hawthornelisa DE JESUS Work Phone: noms External Department UnsolicitedStart: 11-28-2024 End: 40-84-2327Oqlamppxg Result EncounterNadine Hawthornelisa DE JESUS Work Phone: noms External Department UnsolicitedStart: 11-22-2024 End: 38-37-4026Raloqlzqw Result EncounterCorey Blake DO Work Phone: noms External Department UnsolicitedStart: 11-22-2024 End: 41-16-7222Bamlysedh Result EncounterCorey Blake DO Work Phone: noms External Department UnsolicitedStart: 11-22-2024 End: 28-92-6503Pcqymqig flow sheetNadine Galvan LIZA Work Phone: noms BCP OBComment on above:26 weeks gestation of ([facility]); Second trimester ([facility]); Elevated glucose tolerance testStart: 11-22-2024 End: 23-93-5211zvxrdnpcayKCP RAMEYNot AvailableStart: 10-26-2024 End: 04-20-5942ydbpoaxfrvNHAPA FAZIONot AvailableStart: 10-26-2024 End: 03-40-0476Dcomzizj flow sheetCorey Blake DO Work Phone: noms BCP OBComment on above:Second trimester ([facility]); 22 weeks gestation of ([facility]); Diabetes mellitus screeningStart: 10-26-2024 End: 51-85-0848qcpmdjbcimJPVNK FAZIONot AvailableStart: 09-28-2024 End: 70-57-6502htabjmyjwbQFH RAMEYNot AvailableStart: 08-29-2024 End: 04-22-7866Adinbjtq flow sheetCorey Blake DO Work Phone: noms BCP OBComment on above:Second trimester ; 14 weeks gestation of pregnancyStart: 08-29-2024 End: 15-39-0720Xabujn flowsheetCorey Blake DO Work Phone: noms BCP OBStart: 08-29-2024 End: 09-89-7889Nxvfwa flowsheetCorey Blake DO Work Phone: [facility] BCP OBStart: 08-29-2024 End: 98-28-3608Uvhkaeyhi Result EncounterCorey Blake DO Work Phone: noms External Department UnsolicitedStart: 08-29-2024 End: 19-44-2871ckfdbizdqmLTPBM FAZIONot AvailableStart: 08-10-2024 End: 42-13-6809Mmfaxb outpatient visit 5 minutesNoms Bcp Ob Blake NurseNOMS BCP OBComment on above:GA: 04e6sVppoj: 08-10-2024 End: 92-00-3963ogqnmkzrwtCPTUZ FAZIONot AvailableStart: 07-11-2024 End: 75-48-4361Aprphzev flow sheetNoms Sws Ob NurseNOMS SWS OBComment on above: GA: 1m9wLfyzq: 07-11-2024 End: 79-01-1175glkibtaxmsDNIWB FAZIONot AvailableStart: 05-16-2024 End: 53-10-2045Ewcnsy outpatient visit 15 minutesMadeleine Bundy MD Work Phone: noms SWS OBComment on above:Hormone imbalance (Primary Dx); Amenorrhea; Missed menses; Family planning; Thyroid disorder screenStart: 05-16-2024 End: 63-80-1359bqtbzdzpdlPJDWTG P JONESNot AvailableStart: 03-30-2024 End: 27-18-8307amkvvdduueFtgnz KlaegeFacility:[facility]ICStart: 02-08-2024 End: 37-93-7424Nhzaskj encounter statusMadeleine Bundy MD Work Phone: noms HealthcareStart: 02-08-2024 End: 51-63-5876Yredlsot preventive med est patient 18-39 yrsMadeleine Bundy MD Work Phone: noms SWS OBComment on above:Amenorrhea (Primary Dx); Screening for malignant neoplasm of cervix; Encounter for gynecological examination without abnormal finding; Encounter for surveillance of vaginal ring hormonal contraceptive device; Missed mensesStart: 01-24-2024 End: 63-86-1812ipnxsyhuupMecpuinb:[facility] HospitalStart: 05-12-2023 End: 38-64-3658jgabumbbstDdybuiy Widmer Other [facility] [employer] Other Start: 04-64-6937Qbmveb outpatient visit 15 minutes Tyrell LinseyDana[facility] HospitalyStart: 03-02-2023 End: 08-66-0257alyxmonwnfKoelw KunsFacility:[facility] Start: 03-02-2023 End: 64-36-6519dgiagbpvclCJ Brett Kuns Work Phone: [facility] Work Phone: Start: 03-02-2023 End: 86-20-4385Muuwinl encounter procedureDO Lisandro Buitrago Work Phone: [facility] CtrStart: 02-24-2023 End: 49-44-1045vlinkxhzrsJbhzq Kuns Other [place] [employer] Other Start: 08-88-2350Sgldvoclh for general adult medical examination without abnormal findingsLisandro BuitragoJames J. Peters [facility] Start: 46-68-0910Imeksp outpatient new 30 minutesBreteri MartínezChelsea Memorial Hospital CastaliaStart: 07-28-2021 End: 62-96-8725tqdnryvigbSM JANES Escobar SMITHFacility:H1 Procedures DateProcedureProcedure DetailPerforming ClinicianStart: 08-80-9782Tqwfg dip stick/tablet rgnt non-auto w/o micrscLizamy Galileo DE JESUS Work Phone: Start: 76-38-2029Blqxt dip stick/tablet rgnt non-auto w/o micrscpKera Li NP Work Phone: Start: 83-31-3258AW OB BPP W NON-STRESSCorey Blake DO Work Phone: Start: 52-89-3384ZC OB BPP W NON-STRESSCorey Blake DO Work Phone: Start: 64-63-6949Uchfj dip stick/tablet rgnt non-auto w/o micrscpKristina Jen [employer] Work Phone: Start: 73-77-8524XM OB BPP W NON-STRESSCorey Blake DO Work Phone: Start: 01-63-9495Qiwur dip stick/tablet rgnt non-auto w/o micrscpCorey Blake DO Work Phone: Start: 06-92-6781IN OB BPP W NON-STRESSCorey Blake DO Work Phone: Start: 02-96-7456JG OB BPP W NON-STRESSCorey Blake DO Work Phone: Start: 33-37-0868Naucz dip stick/tablet rgnt non-auto w/o micrscpKristina Jen [employer] Work Phone: Start: 84-96-7482RD OB BPP W NON-STRESSCorey Blake DO Work Phone: Start: 64-87-8603IL OB BPP W NON-STRESSCorey Blake DO Work Phone: Start: 48-86-3150Rbtzw dip stick/tablet rgnt non-auto w/o micrscpCorey Blake DO Work Phone: Start: 93-64-7504Ijakt dip stick/tablet rgnt non-auto w/o micrscpAmy Galileo DE JESUS Work Phone: Start: 36-19-9295BLJHMRB TOLERANCE 3 HOURAmy Galileo DE JESUS Work Phone: Start: 49-08-0464Gmtgm dip stick/tablet rgnt non-auto w/o micrscpAmy Galileo DE JESUS Work Phone: Start: 52-41-2616OFO CBC WITH AUTO DIFFCorey Blake DO Work Phone: Start: 84-97-5989Sujui dip stick/tablet rgnt non-auto w/o micrscpCorey Blake DO Work Phone: Start: 64-39-9664Ohbin dip stick/tablet rgnt non-auto w/o micrscpCorey Blake DO Work Phone: Start: 42-79-0622WGE TESTCorey Blake DO Work Phone: Start: 20-77-9664Aehln dip stick/tablet rgnt non-auto w/o micrscpCorey Blake DO Work Phone: Start: 32-73-3578Bjado test visual color cmprsn methsPenolparul Bundy MD Work Phone: start: 03-95-5496Gnli cerv/vag auto thin layer prep mnl screenCorey [employer] Work Phone: Start: 88-23-1741Rdevj chest X-rayDO Lisandro Buitrago Work Phone: Start: 73-73-5055Noiku X-ray of left shoulderDO Lisandro Buitrago Work Phone: Plan of Treatment DateCare ActivityDetailAuthorStart: 03-01-2025 End: 42-76-2597Oqhzhyr encounter vwkauuwaz93/23/2025 8:40 AM EDT Routine [facility] [address] [place], [id number] Nadine Galvan PA [address] [place] [address] [facility] OBGYNStart: 02-22-2025 End: 35-26-4843Pbkfpod encounter procedureNOMS [place] OBGYNComment on above: ArrivedStart: 02-15-2025 End: 68-14-1944Agchabg encounter xsyfipaha33/09/2025 8:50 AM EDT Routine [facility] [address] [place], [id number] Kera Li, LIBBY [address] [place] [phone] [facility] [place] [facility]BGYNStart: 02-08-2025 End: 22-16-3535Bpvolah encounter procedureNOMS [place] OBGYNComment on above: ArrivedStart: 01-29-2025 End: 81-54-5616HNGOKVE, GROUP B STREP WITH SUSCEPTIBLITYCULTURE, GROUP B STREP WITH SUSCEPTIBLITY Lab Routine Third trimester ([facility]) Expected: 01/29/2025, Expires: 01/29/2026[facility] Work Phone: comment on above:Expected: 01/29/2025, Expires: 01/29/2026Start: 01-29-2025 End: 99-56-5623Bxwvwvz encounter procedureNOMS Danish OBGYNComment on above: Third trimester ([facility])Start: 01-16-2025 End: 41-94-0933Wlvmnsn encounter phrvlcgmu10/09/2025 8:50 AM EDT Routine [facility] [address] [place], [id number] Nadine Galvan PA [address] [place] [address] [facility] OBGYNStart: 01-15-2025 End: 63-72-6177Gfuyiqb encounter procedureNOMS Danish OBGYNComment on above: ArrivedStart: 76-32-7632Gzjxhythf vaccinationNONE HealthcareStart: 01-02-2025 End: 01-35-4863QB biophysical profile w non stress testUS biophysical profile w non stress test Imaging Routine ZULMA (amniotic fluid index) borderline low Expected: 01/02/2025 (Approximate), Expires: 07/05/2025NONE [employer] Work Phone: comment on above:Expected: 01/02/2025 (Approximate), Expires: 07/05/2025Start: 01-02-2025 End: 85-34-2169Hvsatsb encounter procedureNOMS [place] OBGYNComment on above: ArrivedStart: 12-19-2024 End: 99-27-7990Velralp encounter mzhtirkez77/12/2025 8:50 AM EDT Routine [facility] [address] [place], [id number] Nadine Galvan PA [address] [place] [address] [facility] Danish OBGYNStart: 12-19-2024 End: 34-98-4143Lpfnagrepdoi / ancillary services fndsaomhvh84/12/2025 8:00 AM EDT Ancillary Procedure [facility] [address] [place] [address] [facility] OBGYNStart: 12-05-2024 End: 87-50-0812TL for pregnancyUS OB follow up transabdominal approach Imaging Routine size inconsistent with dates ([facility] [place]) Expected: 12/05/2024, Expires: 04/07/2025[facility] [employer] Work Phone: comment on above:Expected: 12/05/2024, Expires: 04/07/2025Start: 12-05-2024 End: 80-47-0207Eeoxxwx encounter procedureNOMS BCP OBComment on above:Arrived Start: 11-22-2024 End: 62-13-1305Bhdzzohjyan of glucose 3 hours after glucose challenge for glucose tolerance testGlucose tolerance, 3 hours Lab Routine Elevated glucose tolerance test Expected: 11/22/2024 (Approximate), Expires: 11/22/2025[facility] [employer] Work Phone: comment on above:Expected: 11/22/2024 (Approximate), Expires: 11/22/2025Start: 11-22-2024 End: 24-99-8182Mnsnyrk encounter amacattim92/16/2025 8:50 AM EDT Routine [facility] [address] [place] [address] Nadine Galvan PA [address] [place] [address] [place], [place] [phone] [facility] BCP OBStart: 10-26-2024 End: 75-21-7739YUE panel - Blood by Automated countCBC Lab Routine Diabetes mellitus screening Expected: 10/26/2024 (Approximate), Expires: 10/26/2025[facility] Work Phone: comment on above:Expected: 10/26/2024 (Approximate), Expires: 10/26/2025Start: 10-26-2024 End: 97-58-0175Ovphwkeqiqe of glucose 1 hour after glucose challenge for glucose tolerance testGlucose tolerance, 1 hour Lab Routine Diabetes mellitus screening Expected: 10/26/2024 (Approximate), Expires: 10/26/2025NONE HealthcareComment on above:Expected: 10/26/2024 (Approximate), Expires: 10/26/2025Start: 09-27-2024 End: 50-74-0013Qtwsrwa encounter vqszqymci44/21/2025 3:30 PM EDT Routine [facility] [address] [place] [address] Nadine Galvan PA [address] [place] [address] [place], [place] [phone] [facility] BCP OBStart: 08-29-2024 End: 80-06-0004Bszickf encounter procedureNOMS BCP OBComment on above:Arrived Start: 07-27-2024 End: 47-15-1860urnpeglapc31/20/2025 10:30 AM EDT Initial [facility] [address] [place] [address] Madeleine Bundy MD [address] [place] [address] [facility] OBStart: 07-17-2024 End: 33-18-1800Iukvryd encounter oylbsxrwk73/10/2025 12:30 PM EDT Office Visit [facility] OB [address] [place] [phone] Madeleine Bundy MD [address] [place] [address] [facility] OBStart: 07-17-2024 End: 48-63-4900Ebokaaxdnfyg / ancillary services dbqoayzvxb22/10/2025 8:30 AM EDT Ancillary Procedure [facility] OB [address] [place] [phone] [facility] OBStart: 07-11-2024 End: 27-27-4662Szybmuar identified in Urine by CultureUrine culture Microbiology Routine Encounter for supervision of normal first in first trimester Expected: 07/11/2024, Expires: 07/11/2025[facility] HealthcareComment on above: Expected: 07/11/2024, Expires: 07/11/2025Start: 07-11-2024 End: 80-56-7815YXFWJA CARRIER SCREEN;14 GENESBEACON CARRIER SCREEN;14 GENES Lab Routine Screening for genetic disease carrier status Expected: 07/11/2024 (Approximate), Expires: 07/11/2025[facility] HealthcareComment on above:Expected: 07/11/2024 (Approximate), Expires: 07/11/2025Start: 07-11-2024 End: 70-29-4815Ixfhx type and Indirect antibody screen panel - BloodType and screen Lab Routine Encounter for supervision of normal first in first trimester Expected: 07/11/2024, Expires: 07/11/2025[facility] HealthcareComment on above:Expected: 07/11/2024, Expires: 07/11/2025Start: 07-11-2024 End: 10-61-6072PPO W Auto Differential panel - BloodCBC and differential Lab Routine Encounter for supervision of normal first in first trimester Expected: 07/11/2024, Expires: 07/[facility]/2025[facility]: Expected: 07/11/2024, Expires: 07/11/2025Start: 07-11-2024 End: 72-88-9457RJPE SCREEN 17 W/CONF, URDRUG SCREEN 17 W/CONF, UR Lab Routine Encounter for drug screening Expected: 07/11/2024, Expires: 07/11/2025[facility]:Expected: 07/11/2024, Expires: 07/11/2025Start: 07-11-2024 End: 69-56-3515Ojaronggs B virus surface Ag [Presence] in Serum or Plasma by ImmunoassayHepatitis B surface antigen Lab Routine Encounter for supervision of normal first in first trimester Expected: 07/11/2024, Expires: 07/11/2025[facility]:Expected: 07/11/2024, Expires: 07/11/2025Start: 07-11-2024 End: 81-59-2184Veqexbdho C virus Ab [Presence] in Serum or Plasma by Immunoassay Hepatitis C antibody Lab Routine Encounter for supervision of normal first in first trimester Expected: 07/11/2024, Expires: 07/11/2025[facility]:Expected: 07/11/2024, Expires: 07/11/2025Start: 07-11-2024 End: 40-02-6074ZDL-1/HIV-2 antigen/antibody combination immunoassayHIV-1 and HIV-2 antibodies Lab Routine Encounter for supervision of normal first in firsttrimester Expected: 07/11/2024, Expires: 07/11/2025[facility] Comment on above:Expected: 07/11/2024, Expires: 07/11/2025Start: 07-11-2024 End: 51-41-2529XpkdofgG27 PLUS Core+YYIPrlqtneC72 PLUS Core+SCA Lab Routine Encounter for screening for chromosomal anomalies Expected: 07/11/2024 (Approximate), Expires: 07/11/2025[facility] HealthcareComment on above:Expected: 07/11/2024 (Approximate), Expires: 07/11/2025Start: 07-11-2024 End: 65-92-4288Gyjajn Ab [Presence] in Serum by RPRRPR Lab Routine Encounter for supervision of normal first in first trimester Expected: 07/11/2024, Expires: 07/11/2025[facility] HealthcareComment on above:Expected: 07/11/2024, Expires: 07/11/2025Start: 07-11-2024 End: 95-14-2666Wmbhzeq antibody, IgGRubella antibody, IgG Lab Routine Encounter for supervision of normal first in first trimester Expected: 07/11/2024, Expires: 07/11/2025[facility] HealthcareComment on above:Expected: 07/11/2024, Expires: 07/11/2025Start: 07-11-2024 End: 45-87-9292Shlbodngmq complete panel - UrineUrinalysis with microscopic Lab Routine Encounter for supervision of normal first in first trimester Expected: 07/11/2024, Expires: 07/11/2025[facility] Healthcare Work Phone: comment on above:Expected: 07/11/2024, Expires: 07/11/2025Start: 05-16-2024 End: 80-63-4226LopqtxbrEprbhkde Lab Routine Hormone imbalance Expected: 05/16/2024, Expires: 05/16/2025[facility] HealthcareComment on above:Expected: 05/16/2024, Expires: 05/16/2025Start: 05-16-2024 End: 65-06-2824ZIMJ-sulfateDHEA-sulfate Lab Routine Hormone imbalance Expected: 05/16/2024, Expires: 05/16/2025[facility] HealthcareComment on above:Expected: 05/16/2024, Expires: 05/16/2025Start: 05-16-2024 End: 31-03-3316SabmlefhwHwfhjsqzo Lab Routine Hormone imbalance Expected: 05/16/2024, Expires: 05/16/2025[facility] HealthcareComment on above:Expected: 05/16/2024, Expires: 05/16/2025Start: 05-16-2024 End: 21-47-3596QmywdelAntodce Lab Routine Hormone imbalance Expected: 05/16/2024, Expires: 05/16/2025[facility] HealthcareComment on above:Expected: 05/16/2024, Expires: 05/16/2025Start: 05-16-2024 End: 90-09-4027Rxlubtur stimulating hormoneFollicle stimulating hormone Lab Routine Hormone imbalance Thyroid disorder screen Expected: 05/16/2024, Expires: 05/16/2025[facility] HealthcareComment on above:Expected: 05/16/2024, Expires: 05/16/2025Start: 05-16-2024 End: 51-33-8023Xrqqyjb, fastingInsulin, fasting Lab Routine Amenorrhea Missed menses Hormone imbalance Expected: 05/16/2024, Expires: 05/16/2025[facility] HealthcareComment on above:Expected: 05/16/2024, Expires: 05/16/2025Start: 05-16-2024 End: 49-27-0155Uskcfdvnwmf hormoneLuteinizing hormone Lab Routine Hormone imbalance Thyroid disorder screen Expected: 05/16/2024, Expires: 05/16/2025[facility] HealthcareComment on above:Expected: 05/16/2024, Expires: 05/16/2025Start: 05-16-2024 End: 73-73-4255EiogmffcrljnZqogroeoembx Lab Routine Hormone imbalance Expected: 05/16/2024, Expires: 05/16/2025[facility] HealthcareComment on above:Expected: 05/16/2024, Expires: 05/16/2025Start: 05-16-2024 End: 30-01-9866Xui hormone binding globulinSex hormone binding globulin Lab Routine Hormone imbalance Expected: 05/16/2024, Expires: 05/16/2025[facility] HealthcareComment on above:Expected: 05/16/2024, Expires: 05/16/2025Start: 05-16-2024 End: 71-86-1609Zjcfthxigcvu, free, totalTestosterone, free, total Lab Routine Hormone imbalance Expected: 05/16/2024, Expires: 05/16/2025[facility] Comment on above:Expected: 05/16/2024, Expires: 05/16/2025Start: 05-16-2024 End: 73-17-7073Ffkwwwwvgat [Units/volume] in Serum or PlasmaTSH Lab Routine Hormone imbalance Thyroid disorder screen Expected: 05/16/2024, Expires: 05/16/2025[facility] Healthcare Work Phone: comment on above:Expected: 05/16/2024, Expires: 05/16/2025Start: 05-16-2024 End: 57-05-0689Hudpfld D 1,25 dihydroxyVitamin D 1,25 dihydroxy Lab Routine Hormone imbalance Expected: 05/16/2024, Expires: 05/16/2025[facility] Comment on above:Expected: 05/16/2024, Expires: 05/16/2025Start: 05-16-2024 End: 36-94-9431Xsdulgw encounter rllvfyrjr11/07/2025 12:30 PM EST Office Visit [facility] [address] [place] [phone] Madeleine Bundy MD [address] [place] [address] NOMApurva LAY OBStart: 02-08-2024 End: 30-77-2345Kwlwkeoh stimulating hormoneFollicle stimulating hormone Lab Routine Amenorrhea Expected: 02/08/2024 (Approximate), Expires: 02/07/2025[facility] HealthcareComment on above:Expected: 02/08/2024 (Approximate), Expires: 02/07/2025Start: 93-23-4826Nmnmthlln vaccinationInfluenza Vaccine (#1)[facility] HealthcarehCG, qualitativehCG, qualitative Lab Routine Amenorrhea Ordered: 02/08/2024[facility] HealthcareComment on above:Ordered: 02/08/2024Hemoglobin A1c/Hemoglobin.total in BloodHemoglobin A1c Lab Routine with uncertain dates, antepartum Ordered: 08/10/2024[facility] Healthcare Work Phone: comment on above:Ordered: 08/10/2024Luteinizing hormoneLuteinizing hormone Lab Routine Amenorrhea Ordered: 02/08/2024[facility] HealthcareComment on above:Ordered: 02/08/2024rogesteroneProgesterone Lab Routine Amenorrhea Ordered: 02/08/2024[facility] HealthcareComment on above:Ordered: 02/08/2024SENDOUT TEST MISCELLANEOUS LABCORPSENDOUT TEST MISCELLANEOUS [facility]ABC[facility]P Lab Routine Screening for malignant neoplasm of cervix Encounterfor gynecological examination without abnormal finding Ordered: 02/08/2024[facility] Healthcare Work Phone: comment on above:Ordered: 02/08/2024Testosterone, free, totalTestosterone, free, total Lab Routine Amenorrhea Ordered: 02/08/2024 [facility] HealthcareComment on above:Ordered: 02/08/2024 Immunizations Immunization DateImmunizationNotesCare PhkgxuziFsoewcyg67-11-6799TKLOZ-21 Vaccine Moderna - Documentation Purposes OnlyLisandro Buitrago Other [employer] Other [id number] Vaccine Moderna - Documentation Purposes OnlyBreBalandras Other [employer] Other Payers DatePayer CategoryPayerPolicy [id number] Health [id number] Health [id number] 2.0.6.59673[id number] 2.0.2.09755[id number] 2.0.1.069086.3.579.2.593 [id number] 2.0.1.704243.3.57[id number] 2.16840.1.656388.3.57[id number] 2.16840.1.032490.3.57[id number] 2.16.840.1.397498.3.579.[id number] 2.16840.1.299366.3.579.2.3[id number] 2.16840.1.706226.3.579.2.9[id number] 2.0.1.713500.3.579.[id number] 2.0.1.512678.3.579.2.718573-73-9916Kycgwdn36542841 2.0.1.226216.3.579.2.201214-37-8347Qfuzhyf89500068 2.0.1.732070.3.579.2.[id number] 2.840.1.219071.3.57[id number] 2.0.1.614949.3.579.[id number] 2.0.1.553839.3.579.2.258741-29-4555Optblyf4613138 2.0.1.723916.3.579.2.943593-22-0845Tmnpelp1086286 2.16840.1.254030.3.579.2.784415-90-2911Xecswlo2008239 2.840.1.606432.3.579.2.2[id number] 2..840.1.856910.3.579.2.274187-10-9174Rjwxasy3375545 2.16.840.1.818985.3.579.2.725448-61-3937Ehlgkjv5726476 2.16.840.1.810135.3.579.2.179892-77-5114Vkaa-drdLwgcdygCJU 79v3q1a2-g802-8160-b44r-[id number] 2.16.840.1.177876.3.579.2.531 Social History DateTypeDetailFacilityStart: 02-08-2024 End: 83-04-6067Lat Assigned At [facility] [employer]ingerprint[employer] Other Start: 87-31-6674Nlz [facility]tart: 99-94-8253Oibsivf smoking status NHISNever smoked tobaccoNOMS HealthcareStart: 79-01-0145Bgmcxtu use and exposureSmokeless tobacco non-userNOMS HealthcareStart: 04-80-1633Mdzwdltrt beverage intakeCurrent drinker of alcohol (finding)[facility] HealthcareStart: 02-08-2024 End: 01-37-3188Xxqfggh of Social functionNOMS HealthcareHow often to you have a drink containing alcohol?Monthly or lessNOMS HealthcareHow many standard drinks containing alcohol do you have on a typical day?1 or 2NOMS HealthcareHow often do you have 6 or more drinks on 1 occasion?Less than monthlyNOMS Healthcare Start: 15-44-1937Wtu assigned at birthNot on fileNOMS HealthcareStart: 05-16-2024 End: 36-84-0426Przdsvayt beverage intakeEx-drinker (finding)[facility] Start: 17-07-0289Awihxbz Commentcaffeine intake: rareNOMS HealthcareStart: 81-03-0808JluyftrkcMQYM HealthcareStart: 91-70-6134WpuFfuxpkHMXX Healthcare Goals DatePatient GoalDesired Activity/StatePersonal health goal Clinical Notes 02-24-2023 to 02-22-2025 Note Date & FfbcYybbEkkvlaux20-83-1552 History of Present illness Narrative* LIZA Zaldivar - 02/22/2025 8:40 AM EDT Reason for Appointment: Patient ID: Alondra Beaver [...] Vitals: Estimated body mass index is 31.2 kg/m as calculated from the following: Height as of 08/10/24: 5' 3 . Weight as of this encounter: 176 lb 1.9 oz. BP: 130/88 Patient's last menstrual period was 05/09/2024 (exact date). ASSESSMENT & PLAN ICD-10-CM 1. Third trimester ([facility]) Z34.93 2. 39 weeks gestation of ([facility]) Z3A.39 POCT urinalysis dipstick manually resulted Return [...] Date WISDOM TOOTH EXTRACTION documented in this encounterNevada [facility] CenterQxcbvcguxo02-14-6466 History of Present illness Narrative* Kera Li NP - 02/15/2025 8:50 AM EDT Reason for Appointment: Patient ID: Alondra Beaver [...] nursing note reviewed. Exam conducted with a tugboat captain present. Vitals: Estimated body mass index is 31.53 kg/m as calculated from the following: Height as of 08/10/24: 5' 3 . Weight as of this encounter: 178 lb. BP: 132/86 Patient's last menstrual period was 05/09/2024 (exact date). ASSESSMENT & PLAN ICD-10-CM 1. Third trimester ([facility]) Z34.93 POCT urinalysis dipstick manually resulted 2. 38 weeks gestation of ([facility]) Z3A.38 Return OB: Patient presents today for [...] of: Kera Li NP documented in this encounterNevada Regional Medical [id number] History of Present illness Narrative* Kera Li NP - 02/08/2025 8:40 AM EDT Reason for Appointment: Patient ID: Alondra Beaver [...] nursing note reviewed. Exam conducted with a tugboat captain present. Vitals: Estimated body mass index is 29.98 kg/m as calculated from the following: Height as of 08/10/24: 5' 3 . Weight as of 01/29/25: 169 lb 4 oz. BP: Patient's last menstrual period was 05/09/2024 (exact date). ASSESSMENT & PLAN ICD-10-CM 1. Third trimester ([facility]) Z34.93 POCT urinalysis dipstick manually resulted 2. 37 weeks gestation of ([facility]) Z3A.37 Return OB: Patient presents today for [...] of: Kera Li NP documented in this encounterNevada Regional Medical [id number] History of Present illness Narrative* Kera Li NP - 01/29/2025 8:30 AM EDT Reason for Appointment: Patient ID: Alondra Beaver [...] nursing note reviewed. Exam conducted with a tugboat captain present. Vitals: Estimated body mass index is 29.98 kg/m as calculated from the following: Height as of 08/10/24: 5' 3 . Weight as of this encounter: 169 lb 4 oz. BP: 128/86 Patient's last menstrual period was 05/09/2024 (exact date). ASSESSMENT & PLAN ICD-10-CM 1. Third trimester ([facility]) Z34.93 POCT urinalysis dipstick manually resulted CULTURE, GROUP B STREP WITH SUSCEPTIBLITY CULTURE, GROUP B STREP WITH SUSCEPTIBLITY 2. 36 weeks gestation of ([facility]) Z3A.36 Return OB: Patient presents today [...] of: José Lozano DO documented in this encounterNevada Regional Medical [id number] History of Present illness Narrative* Teresa Ambriz LPN - 01/15/2025 8:50 AM EDT Reason for Appointment: Patient ID: Alondra Beaver [...] nursing note reviewed. Exam conducted with a tugboat captain present. Vitals: Estimated body mass index is 29.85 kg/m as calculated from the following: Height as of 08/10/24: 5' 3 . Weight as of this encounter: 168 lb 8 oz. BP: 132/72 Patient's last menstrual period was 05/09/2024 (exact date). ASSESSMENT & PLAN ICD-10-CM 1. Third trimester ([facility]) Z34.93 POCT urinalysis dipstick manually resulted 2. 34 weeks gestation of ([facility]) Z3A.34 Patient presents today for a [...] of: Kera Li NP documented in this encounterNevada Regional Medical [id number] History of Present illness Narrative* Zita Borrego LPN - 01/02/2025 8:30 AM EDT Reason for Appointment: Patient ID: Alondra Beaver [...] nursing note reviewed. Exam conducted with a tugboat captain present. Vitals: Estimated body mass index is 28.96 kg/m as calculated from the following: Height as of 08/10/24: 5' 3 . Weight as of this encounter: 163 lb 8 oz. BP: 120/76 Patient's last menstrual period was 05/09/2024 (exact date). ASSESSMENT & PLAN ICD-10-CM 1. Third trimester ([facility]) Z34.93 POCT urinalysis dipstick manually resulted 2. 32 weeks gestation of ([facility]) Z3A.32 Return OB: Patient presents today for [...] of: José Lozano DO documented in this encounterNevada Regional Medical CenterOugtokprkw63-25-7477 History of Present illness Narrative* LIZA Zaldivar - 12/19/2024 8:50 AM EDT Reason for Appointment: Patient ID: Alondra Beaver [...] PLAN ICD-10-CM 1. 30 weeks gestation of ([facility]) Z3A.30 POCT urinalysis dipstick manually resulted 2. Third trimester ([facility]) Z34.93 POCT urinalysis dipstick manually resulted [...] behalf of: LIZA Zaldivar documented in this encounterNevada Regional Medical [id number] History of Present illness Narrative* Zita Borrego, ALEKSANDR - 12/05/2024 9:00 AM EDT Reason for Appointment: Patient ID: Alondra Beaver [...] nursing note reviewed. Exam conducted with a tugboat captain present. Vitals: Estimated body mass index is 28.52 kg/m as calculated from the following: Height as of 08/10/24: 5' 3 . Weight as of this encounter: 161 lb. BP: 120/76 Patient's last menstrual period was 05/09/2024 (exact date). ASSESSMENT & PLAN ICD-10-CM 1. Third trimester ([facility]) Z34.93 CANCELED: POCT urinalysis dipstick manually resulted 2. 28 weeks gestation of ([facility]) Z3A.28 3. 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 size inconsistent with dates ([facility]) O26.849 US OB follow up transabdominal [...] of: José Lozano DO documented in this encounterNevada Regional Medical CenterDyulnqhgmz04-44-3117 History of Present illness Narrative* LIZA Zaldivar - 11/22/2024 8:50 AM EDT Reason for Appointment: Patient ID: Alondra Beaver [...] PLAN ICD-10-CM 1. 26 weeks gestation of ([facility]) Z3A.26 POCT urinalysis dipstick manually resulted 2. Second trimester ([facility]) Z34.92 POCT urinalysis dipstick manually resulted [...] behalf of: LIZA Zaldivar documented in this encounterNevada Regional Medical CenterJlrzcsajta08-90-8241 History of Present illness Narrative* Azeb Gonzalez MA - 10/26/2024 11:50 AM EDT Reason for Appointment: Patient ID: Alondra Beaver [...] ASSESSMENT & PLAN ICD-10-CM 1. Second trimester ([facility]) Z34.92 POCT urinalysis dipstick manually resulted 2. 22 weeks gestation of ([facility]) Z3A.22 3. Diabetes mellitus screening Z13.1 [...] of: José Lozano DO documented in this encounterNevada Regional Medical CenterArdfhnpvws94-06-6304 History of Present illness Narrative* Zita Borrego LPN - 08/29/2024 2:10 PM EDT Reason for Appointment: Patient ID: Alondra Beaver [...] nursing note reviewed. Exam conducted with a tugboat captain present. Vitals: Estimated body mass index is [...] been consulted regarding any further do's and don'tsof . Patient voiced understanding and all questions and concerns were answered. Orders Placed This Encounter Procedures POCT urinalysis dipstick manually resulted Follow Up: Patient is to return in 4 weeks for routine OB appointment. Documented by Zita Borrego LPN on behalf of: José Lozano DO documented in this encounterNevada Regional Medical [id number] History of Present illness Narrative* Domenica Jacinto LPN - 08/10/2024 2:00 PM EDT Reason for Appointment: Patient ID: Alondra Beaver is a 28 y.o. female who presents for Amenorrhea Patient presents today for a Nurse OB Intake appointment. Patient is 11w3d with a Estimated Date ofDelivery: 02/26/25 OB History Para Term AB Living [...] Cancer Paternal Grandfather Skyler Walp Social History Tobacco Use Smoking status: Never [...] drink 6-8 glasses of water a day, eatno raw or undercooked meat, and stay away from [facility]. Patient has also been advised to not change litter boxes and eat 6 small meals a day. Patient has been consulted regarding the do's and don'ts ofpregnancy. Patient was given labs and all questions and concerns were answered. Patient was given [facility] labs to be completed with Hgb A1C. Follow Up: Patient is to return in 4 weeks for routine OB appointment. Follow Up: Patient is to have labs drawn at directed and return to office for initial OB appointment with provider. Patient may call office as needed with any concerns or questions. Nurse Visit Completed by: Domenica Jacinto LPN documented in this encounterNevada Regional Medical CenterDkavvqyuct88-42-8782 History of Present illness Narrative* Jennifer Ayala RN - 07/11/2024 9:30 AM EST Name: Alondra Beaver Date/Time of Service:07/11/2024 10:03 [...] nausea and no vomiting. Discussed smaller meals, ilset products, OTC Vitamin B6 50mg BID and [...] RN 07/11/2024 10:03 AM documented in this encounterNevada Regional Medical CenterJvfoxnmsha55-55-4487 History of Present illness Narrative* Madeleine Bundy MD - 05/16/2024 12:30 PM EST Images from the original note were not included. Madeleine Bundy MD Obstetrics and Gynecology Patient: Alondra Beaver : 1995 (28 y.o.) Exam Date: 05/16/2024 Reason for Visit - Chief Complaint Patient presents with Follow-up Follow up for Amenorrhea, missed menses, and family planning. Stopped EluRyng in 10/2023. 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 She is opento gathering more information about her body and [...] to gross testing, coordination, and gait are normalor at baseline unless noted below. Physical Exam Constitutional: Appearance: Normal appearance. HENT: Head: Normocephalic and atraumatic. Neurological: Mental Status: She is alert and oriented to person, place, and time. Psychiatric: Mood and Affect: Mood normal. Behavior: Behavior normal. Exam conducted with a tugboat captain present. Assessment/Plan ICD-10-CM 1. Amenorrhea N91.2 2. [...] by Madeleine Bundy MD documented in this encounterNevada Regional Medical [id number] Instructions* Patient Instructions* Madeleine Bundy MD - 05/16/2024 12:30 PM [...] defect. Many people diagnosed with it have veryshort luteal phases that last less than 10 [...] help figure out what's happening inside your body.For instance, blood tests can check your levels [...] a routine infertility test. documented in this encounterNevada Regional Medical CenterIcfmunhscb82-35-8190 History of Present illness Narrative* Madeleine Bundy MD - 02/08/2024 3:00 PM EDT Images from the original note were not [...] to gross testing, coordination, and gait are normalor at baseline unless noted below. Physical Exam [...] by Madeleine Bundy MD documented in this encounterNevada Regional Medical CenterYuwfkdgutg73-60-3156 Evaluation note* Encounter Date Diagnosis Assessment Notes Treatment Notes Treatment Clinical Notes May, Strain of lumbar par aspinous muscle, initial encounter (ICD-10 - S39.012A) Patient has repetative strain of her lower lumbar praspinal muscles on the right and patient given reassurance that she does not have pain over the spine or pelvic joint spaces. She was instructed ondifferent stretches and exercises to do to help alleviate this as well as given exercise handouts for this. She was also given Naproxen that she can use as needed for pain. She is to call and return if not improving in 3-4 weeks and trigger point injections can be done. [facility] Other 10-18-2023 Evaluation note* Encounter Date Diagnosis Assessment Notes Treatment Notes Treatment Clinical Notes Feb, Encounter to establish care (ICD -10 - Z76.89) Patient appears to be in good health upon examination. She is here to establish care for annual physcial for her employment. 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 Feb,Wellness examination (ICD-10 - Z00.00) Personalized health advice [...] as risk factors for other medical problems. Feb,Left shoulder pain (ICD-10 - M25.512) Pain located in the left shoulder/clavicle region. I do recommend the patient have XR's collected to rule out abnormalities. Feb,hest pain (ICD-10 - R07.9) In house EKG performed. Reviewed with patient. Noted T-abnormalities. I suggested patient have stress test to rule out abnormalities. Feb,Left atrial enlargement (ICD-10 - I51.7) Noted in todays EKG. I do recommend the patient go through with a stress test and echo. Order provided. Will do echocardiogram d/t left atrial enlargement Feb,bnormal EKG (ICD-10 - R94.31) Stress test ordered to rule out abnormalities. [facility] Other Evaluation noteNo assessment information available [facility] Work Phone: Evaluation note* Diagnosis [...] note* Diagnosis Third trimester ([facility]) state, incidental 39 weeks gestation of ([facility]) documented in this encounter [facility]History general Narrative - Reported* Type Description Date Medical History Left elbow dislocation 2011 [facility] Other Summary Purpose Family History No Family History Records FoundNo Family History Records FoundNo Family History Records FoundNo Family History Records FoundNo Family History Records Found Advance Directives No Advanced Directives Records FoundNo Advanced Directives Records FoundNo Advanced Directives Records FoundNo Advanced Directives Records FoundNo Advanced Directives Records Found Additional Source Comments INFORMATION SOURCE (unrecogn ized section and content) DATE CREATED AUTHOR 07/30/2021 [facility] DATE CREATED AUTHOR AUTHOR'S ORGANIZ ATION 05/24/2023 [facility] DATE CREATED AUTHOR AUTHOR'S ORGANIZ ATION 02/20/2024 [facility] DATE CREATED AUTHOR AUTHOR'S ORGANIZ ATION 02/20/2025 [facility] DATE CREATED AUTHOR AUTHOR'S ORGANIZ ATION 02/24/2025 [facility] EPIC REASON FOR VISIT (unrecogniz ed section and content) ReasonCommentsGynecologic ExamReasonCommentsFollow-upReasonCommentsInitial VisitNurse VisitReasonCommentsAmenorrheaReasonCommentsRoutine Visit Care Teams (unrecognized sec tion and content) Team Status: Inactive Member Role Status Dates Lisandro Buitrago DO Attending Provider Active Team MemberRelationshipSpecialtyStart DateEnd Date Unallocated, Torrey Horn MD [address] [place] [address] [facility]06/23/23Team MemberRelationshipSpecialtyStart DateEnd Date Unallocated, Torrey Horn MD [address] [place] [address] PCP - [facility] Medicine06/23/23Team MemberRelationshipSpecialtyStart DateEnd Date Unallocated, Torrey Horn MD [facility] [place] [address] [place] [address] PCP - [facility] Medicine06/23/23Team MemberRelationshipSpecialtyStart DateEnd Date Unallocated, Torrey Horn MD [address] [place] [address] [facility] - [facility]06/23/23Team MemberRelationshipSpecialtyStart DateEnd Date Unallocated, Torrey Horn MD [address] [place] [address] PCP - [facility] Medicine06/23/23Te MemberRelationshipSpecialtyStart DateEnd Date Unallocated, Torrey Horn MD [address] [place] [address] PCP - [facility] Medicine06/23/23Team MemberRelationshipSpecialtyStart DateEnd Date Unallocated, Torrey Horn MD [address] [place] [address] [facility]06/23/23Team MemberRelationshipSpecialtyStart DateEnd Date Unallocated, Torrey Horn MD [address] [place] [address] [facility]06/23/23Te MemberRelationshipSpecialtyStart DateEnd Date Unallocated, Torrey Horn MD [address] [place] [address] [facility]06/23/23Te MemberRelationshipSpecialtyStart DateEnd Date Unallocated, Torrey Horn MD [address] [place] [address] [facility]06/23/23Te MemberRelationshipSpecialtyStart DateEnd Date Unallocated, Torrey Horn MD [address] [place] [address] [facility]06/23/23 Goals (unrecognized section and content) Goals may [...] BE BASED ON THE PRIMARY CLINICAL RECORDS. [facility]. provides no warranty or guarantee of the accuracy or completeness of information in this document.
[2025-03-01 07:26] VITALS: BP 134/76; PULSE 88
--- NOTE | 2025-03-01 07:28 | US_ITS ---
[place] [id number] Patient Name: ALONDRA BEAVER MRN: [id number] date: 1995 Sex: F Assigned Patient Location: [facility] Current Patient Location: Accession/Order Number: [id number] Exam Date: 03/01/2025 07:30 Report Date: 03/01/2025 08:38 At the request of: ROCIO VINES DO Procedure: US OB BPP w non-stress BIOPHYSICAL PROFILE: CLINICAL INFORMATION: Post-dates COMPARISON: 02/12/2025 There is a single live intrauterine gestation in cephalic presentation. The reported gestational age is 40 weeks 3 days. The heart rate measures 138 beats per minute. FINDINGS: TONE: 1 or more episodes of activity extension and flexion of extremity or opening and closing of the hand [Y] 2/2 GROSS BODY MOVEMENTS: 3 or more discrete body or limb movements [Y] 2/2 BREATHING MOVEMENTS: 1 or more episodes of breathing lasting at least 30 seconds [Y] 2/2 ZULMA: A single deepest vertical pocket of amniotic fluid greater than 2 cm [Y] 2/2 ZULMA: 7.5 cm. The 5th percentile 7.1 cm. Total score: 8/8 US/US OB BPP w non-stress IMPRESSION: NORMAL BIOPHYSICAL PROFILE. BORDERLINE OLIGOHYDRAMNIOS. Impression dictated by: Zita Lu M.D. 03/01/2025 8:38 AM Dictation Location: [place] [address] Electronically authenticated by: [id number] Y Date: 03/01/2025 08:38
== END 2025-03-01 08:05 | disposition home or self-care (01) ==
LOC: FBCO 07:13 → FBC 07:14
PROVIDERS: PCP Family Medicine; Visit Provider Obstetrics & Gynecology
DX: O41.03X0 Oligohydramnios, third trimester, not applicable or unspecified (principal); Z3A.40 40 weeks gestation of pregnancy
CPT/HCPCS: 76818

== ENCOUNTER 2025-03-05 18:09 | Inpatient (IN) | payer OTHER, SELFPAY ==
--- OUTSIDE RECORDS SUMMARY | 2025-02-22 08:40 | XMS_ITS | Encounter Summary ---
Author Organization [facility] Address [address] [place] [address] Care Team Providers Care Manager Data Warehousing Name Role Phone Unallocated, [facility] Provider [facility] Reason for Visit * ReasonCommentsRoutine Visit Encounter Details DateTypeDepartmentCare Team (Latest Contact Info)Lsixxuuxbzb29/16/2025 8:40 AM EDTRoutine [facility] Danish MONTANO [address] [phone] Nadine Gurrola PA [address] [place], [place] [phone] Third trimester ([facility] 39 weeks gestation of ([facility]) Social History Tobacco UseTypesPacks/DayYears UsedDateSmoking Tobacco: NeverSmokeless [...] or more drinks on one occasion?Less than bpzasbp5702/08/2024HQ-2AnswerDate RecordedPatient Health Questionnaire-2 Vfdka238Estimated Date of FxzluhodOlfqcocbIrp81/20/2025Based on Ultrasound, FHR- 173Sex and Gender InformationValueDate RecordedSex Assigned at BirthNot on fileLegal WygAqfjuo92/06/2024 11:24 AM ESTGender IdentityNot on file Sexual OrientationNot on fileOccupationIndustryJob Start DateJob End DateNot on fileNot on fileNot on fileNot on filedocumented as of this encounter Last Filed Vital Signs Vital SignReadingTime TakenCommentsBlood Mcwkrhcf182/8810 8:34 AM EDT Pulse--Temperature--Respiratory Rate--Oxygen Saturation--Inhaled Oxygen Concentration--Wanrri97.9 kg (176 lb 1.9 oz)02/22/2025 8:34 AM [...] ASSESSMENT & PLAN ICD-10-CM 1. Third trimester ([facility] Z34.93 2. 39 weeks gestation of ([facility]) Z3A.39 POCT urinalysis dipstick manually resulted Return [...] documented in this encounter Plan of Treatment Not on file documented as of this encounter Goals GoalPatient Goal TypeAssociated ProblemsRecent ProgressPatient-Stated?Author Reminders Care PlanOB Jennifer Juan RNdocumented as of this encounter Procedures Procedure NamePriorityDate/TimeAssociated DiagnosisCommentsPOCT URINALYSIS XXLTRVWDZlbaxks67/16/2025 8:46 AM EDT 39 weeks gestation of ([facility]) documented in this encounter Results * [...] / LateralityCollection Method / VolumeCollection Time Received LknnDzvoz75/16/2025 8:46 AM EDT Narrative Authorizing ProviderResult TypeResult StatusAmy [facility] TEST [facility]TER/EDIT ORDERABLESFinal Result documented in this encounter Visit Diagnoses Diagnosis Third trimester ([facility]) state, incidental 39 weeks gestation of ([facility]) documented in this encounter Additional Health Concerns Active ProblemsNoted DateDiagnosed DateOB Aecloncql89/04/2025 documented as of this encounter Care Teams Team MemberRelationshipSpecialtyStart DateEnd Date Unallocated, Noms Provider, [place] [address] [address] PCP - GeneralFamily Medicine06/23/23documented as of this encounter
--- OUTSIDE RECORDS SUMMARY | 2025-03-01 08:40 | XMS_ITS | Encounter Summary ---
Author Organization [facility] Address [address] [place] [address] Care Team Providers Care Dumper Bulk System Name Role Phone Unallocated, Noms Provider [facility] Reason for Visit * ReasonCommentsRoutine Visit Encounter Details DateTypeDepartmentCare Team (Latest Contact Info)Kghaaidfxzg98/23/2025 8:40 AM EDTRoutine [facility] [place] MONTANO [address] [place] [address] Nadine Gurrola PA [address] [facility] [address] [place], [place] [id number] Third trimester ([facility]); 40 weeks gestation of ([facility]) Social History Tobacco UseTypesPacks/DayYears UsedDateSmoking Tobacco: [...] or more drinks on one occasion?Less than qfatuci6402/08/2024HQ-2AnswerDate RecordedPatient Health Questionnaire-2 Aocqu443Estimated Date of KsduyhafCjcwxgbuWpo14/20/2025Based on Ultrasound, FHR- 173Sex and Gender InformationValueDate RecordedSex Assigned at BirthNot on fileLegal EhoCmfraq53/06/2024 11:24 AM ESTGender IdentityNot on file Sexual OrientationNot on fileOccupationIndustryJob Start DateJob End DateNot on fileNot on fileNot on fileNot on filedocumented as of this encounter Last Filed Vital Signs Vital SignReadingTime TakenCommentsBlood Emoxqove232/7810 9:04 AM EDT Pulse--Temperature--Respiratory Rate--Oxygen Saturation--Inhaled Oxygen Concentration--Whovmp54.2 kg (179 lb)03/01/2025 9:04 AM EDTHeight--Body Mass [...] nursing note reviewed. Exam conducted with a sergeant of officers present. Vitals: Estimated body mass index is 31.71 kg/m?? as calculated from the following: Height as of 08/10/24: 5' 3 . Weight as of this encounter: 179 lb. BP: 130/78 Patient's last menstrual period was 05/09/2024 (exact date). Assessment/Plan ICD-10-CM 1. Third trimester ([facility]) Z34.93 POCT urinalysis dipstick manually resulted 2. 40 weeks gestation of ([facility]) Z3A.40 Return OB: Patient presents today for [...] this encounter Procedures Procedure NamePriorityDate/TimeAssociated DiagnosisCommentsPOCT URINALYSIS WOUUUPZCLhnoutt49/23/2025 9:05 AM EDT Third trimester ([facility]) documented in this encounter Results * [...] / LateralityCollection Method / VolumeCollection Time Received TmhhFcvry77/23/2025 9:05 AM EDT Narrative Authorizing ProviderResult TypeResult StatusNadine Gurrola PAPOINT OF CARE TEST ENTER/EDIT ORDERABLESFinal Result documented in this encounter Visit Diagnoses Diagnosis Third trimester ([facility]) state, incidental 40 weeks gestation of ([facility]) documented in this encounter Additional Health Concerns Active ProblemsNoted DateDiagnosed DateOB Aiahocsvz51/04/2025 documented as of this encounter Care Teams Team MemberRelationshipSpecialtyStart DateEnd Date Unallocated, Noms Provider, [address] [place] [address] PCP - GeneralFamily Medicine06/23/23documented as of this encounter
[2025-03-05] VITALS (14 sets, daily range): BP systolic 123–140; BP diastolic 72–91; PULSE 74–93; TEMP 36.8
--- OUTSIDE RECORDS SUMMARY | 2025-03-05 18:14 | XMS_ITS | Encounter Summary ---
Author Organization [facility] Address [address] [place] [address] Care Team Providers Care Ingot Header Name Role Phone Unallocated, Noms Provider [facility] Encounter Details DateTypeDepartmentCare Team (Latest Contact Info)Dpgahvqxovw80/16/2025amboo flowsheet TORREY MONTANO [address] [address] Nadine Gurrola PA [address] [place] [address] Social History Tobacco UseTypesPacks/DayYears UsedDateSmoking Tobacco: NeverSmokeless [...] or more drinks on one occasion?Less than qmrxaue3202/08/2024HQ-2AnswerDate RecordedPatient Health Questionnaire-2 Quoor549Estimated Date of DrtzgmkfZxbkzahbDzi89/20/2025Based on Ultrasound, FHR- 173Sex and Gender InformationValueDate RecordedSex Assigned at BirthNot on fileLegal XirOzazkm30/10/2023 11:24 AM ESTGender IdentityNot on file Sexual OrientationNot on fileOccupationIndustryJob Start DateJob End DateNot on fileNot on fileNot on fileNot on filedocumented as of this encounter Plan of Treatment Not on file documented as of this encounter Goals GoalPatient Goal TypeAssociated ProblemsRecent ProgressPatient-Stated?Author Reminders Care PlanOB RemindersJennifer Fatima RNdocumented as of this encounter Visit Diagnoses Not on filedocumented in this encounter Additional Health Concerns Active ProblemsNoted DateDiagnosed DateOB Hrtrsnoqe60/04/2025 documented as of this encounter Care Teams Team MemberRelationshipSpecialtyStart DateEnd Date Unallocated, Noms Provider, [address] [place] [address] PCP - GeneralFamily Medicine06/23/23documented as of this encounter
--- OUTSIDE RECORDS SUMMARY | 2025-03-05 18:14 | XMS_ITS | Clinical Summary ---
Author Organization [facility] Address [address] [place] [address] Care Team Providers Care Home Comfort Advisor Name Role Phone Unallocated, Noms Provider Primary Care Provi ulysses Allergies No known active allergies Medications MedicationSigDispense QuantityRefillsLast FilledStart DateEnd DateStatus Vit-Fe Fumarate-FA ( PO) Take by mouthActive diazePAM (Valium) 2 MG tablet 2 mg03/30/2024ctive meclizine (Antivert) 25 MG tablet 25 mg03/30/2024ctive ondansetron (Zofran) 4 MG tablet 4 mg03/30/2024ctive Encounters DateTypeDepartmentCare YymiRkywvlfrntw77/23/2025 8:40 AM EDTRoutine [facility] [place] MONTANO [address] [place] [address] Nadine Gurrola PA Third trimester ([facility]); 40 weeks gestation of ([facility])03/01/2025Telephone [facility] [place] MONTANO [address] [place] [address] Teresa Ambriz LPN 03/01/2025amboo flowsheet NOMRitchie MONTANO [address] [place] [address] Nadine Gurrola PA 02/22/2025 8:40 AM EDTRoutine NOMRitchie MONTANO [address] [place] [address] Nadine Gurrola PA Third trimester ([facility]); 39 weeks gestation of ([facility])02/22/2025amboo flowsheet [facility] [place] [facility] [address] [place] [address] Nadine Gurrola PA 02/15/2025 8:50 AM EDTRoutine [facility] [place] [facility] [address] [place] [address] Rosaura Li, LIBBY Third trimester ([facility]); 38 weeks gestation of ([facility])02/15/2025linisync Result Encounter NOMS External Department Unsolicited Rocio Lozano, DO 02/08/2025 8:40 AM EDTRoutine [facility] [place] [facility] [address] [place] [phone] Rosaura Li NP Third trimester ([facility]); 37 weeks gestation of ([facility])5Clinisync Result Encounter NOMS External Department Unsolicited Rocio Lozano, DO 02/08/2025amboo flowsheet [facility] [place] [facility] [address] [place] [address] Rosaura Li NP 02/07/20250756Wkdbqs21/25/2025Clinisync Result Encounter NOMS External Department Unsolicited Rocio Lozano, DO 01/29/2025 8:30 AM EDTRoutine [facility] [place] [facility] [address] [place] [address] Rocio Lozano, DO Third trimester ([facility]); 36 weeks gestation of ([facility])5Bamboo flowsheet [facility] [address] [place] [address] Rocio Lozano, DO 5Clinisync Result Encounter NOMS External Department Unsolicited Blake, Rocio, DO 01/18/2025linisync Result Encounter NOMS External Department Unsolicited Rocio Lozano, DO 01/15/2025 8:50 AM EDTRoutine [facility] [place] [address] Rosaura Li, LIBBY Third trimester ([facility]); 34 weeks gestation of ([facility])01/15/2025amboo flowsheet [facility] [place]ONT[place]O [address] [place] [address] Rosaura Li, LIBBY 01/08/2025linisync Result Encounter NOMS External Department Unsolicited Rocio Lozano, DO 01/04/2025linisync Result Encounter NOMS External Department Unsolicited Rocio Lozano, DO 01/02/2025 8:30 AM EDTRoutine [facility] [place] [facility] [facility] [address] Rocio Lozano, DO Third trimester ([facility]); 32 weeks gestation of ([facility]); ZULMA (amniotic fluid index) borderline low01/02/2025amboo flowsheet [facility] [place] MONTANO [address] [place] [address] [place] [address] Rocio Lozano, DO 01/02/20255405Raflfa52/12/2025 8:50 AM EDTRoutine [facility] [place] MONTANO [address] [place] [address] [place] [address] Nadine Gurrola PA 30 weeks gestation of ([facility]); Third trimester ([facility]); HSV lvfhcudxe56/12/2025 8:00 AM EDTAncillary Procedure [facility] [place] MONTANO [address] [place] [phone] size inconsistent with dates ([facility])12/19/2024Telephone [facility] [place] [facility] [facility] [address] Dea OlivaresALEKSANDR 12/05/2024 9:00 AM EDTRoutine [facility] [place]ONTANO [address] [place] [address] Rocio Lozano DO Third trimester ([facility]); 28 weeks gestation of ([facility]); HSV infection; size inconsistent with dates ([facility])12/05/2024amboo flowsheet [facility] [place] [facility] [address] [place] [address] Rocio Lozano DO 12/04/2024Travelfrom Last 3 Months Family History Medical [...] or more drinks on one occasion?Less than femrzvx6002/08/2024HQ-2AnswerDate RecordedPatient Health Questionnaire-2 Score0 05/16/2024Estimated Date of QtoktznvSpcsxwipJkv64/20/2025Based on Ultrasound, FHR- 173Sex and Gender InformationValueDate RecordedSex Assigned at BirthNot on fileLegal YasGbumen15/06/2024 11:24 AM ESTGender IdentityNot on file Sexual OrientationNot on fileOccupationIndustryJob Start DateJob End DateNot on fileNot on fileNot on fileNot on file Last Filed Vital Signs Vital SignReadingTime TakenCommentsBlood Rueiwhbb697/7803/01/2025 9:04 AM EDT Okbbw156606/23/2023 9:25 AM ATRGialxjdghzq02.4 ??C (97.5 ??F)06/23/2023 9:25 AM ESTRespiratory Zpek011205/15/2023 11:28 AM ESTOxygen Lsulljbihl31%06/23/2023 9:25 AM ESTInhaled Oxygen Concentration--Ldzdye55.2 kg (179 lb)03/01/2025 9:04 AM EDT Etazoj573 cm (5' 3 )08/10/2024 2:55 PM EDTBody Mass Index31.71008/10/2024 2:55 PM EDT Plan of Treatment Health MaintenanceDue DateLast DoneCommentsInfluenza Vaccine (#1)01/08/2025 Goals GoalPatient Goal TypeAssociated ProblemsRecent ProgressPatient-Stated?Author Reminders Care PlanOB RemindersJennifer Fatima RN Procedures Procedure NamePriorityDate/TimeAssociated DiagnosisCommentsPOCT URINALYSIS SJIYVLRCHcsfuai41/23/2025 9:05 AM EDT Third trimester ([facility]) POCT URINALYSIS XYYNQHUOQcpxfee28/16/2025 8:46 AM EDT 39 weeks gestation of ([facility]) POCT URINALYSIS STLQFQQZPlffmyg26/09/2025 8:53 AM EDT Third trimester ([facility]) US OB BPP W NON-KEERLQ1602/15/2025 8:08 AM EDT US OB BPP W NON-HJKKAV8102/08/2025 9:24 AM EDT POCT URINALYSIS WBODSOEYXedauek39/02/2025 8:57 AM EDT Third trimester ([facility]) US OB BPP W NON-ZLTMTT1802/01/2025 8:47 AM EDT POCT URINALYSIS AMNOTAYKAaeaqit80/22/2025 8:42 AM EDT Third trimester ([facility]) CULTURE, GROUP B STREP WITH DIAMAYNKTQMRGIwhzubm83/22/2025 8:30 AM EDT Third trimester ([facility]) US OB BPP W NON-PULHIV3901/25/2025 8:50 AM EDT US OB BPP W NON-TGOIZE5601/18/2025 8:45 AM EDT POCT URINALYSIS KUMEDXGMCnzfitw82/08/2025 9:01 AM EDT Third trimester ([facility]) US OB BPP W NON-ZGAMVI8301/08/2025 12:44 PM EDT US OB BPP W NON-DWCMJB8301/04/2025 10:27 AM EDT POCT URINALYSIS STXEOREWBplowlw42/26/2025 8:29 AM EDT Third trimester ([facility]) POCT URINALYSIS NNURERRVWevlvad05/12/2025 9:06 AM EDT 30 weeks gestation of ([facility]) Third trimester ([facility]) US OB FOLLOW UP TRANSABDOMINAL LBSYYJWHGmqlhgq21/12/2025 8:25 AM EDT size inconsistent with dates ([facility]) from Last 3 Months Results * (ABNORMAL) POCT urinalysis dipstick manually resulted (03/01/2025 9:05 AM EDT) Only the most recent of8 resultswithin the time period is included. ComponentValueRef RangeTest MethodAnalysis TimePerformed AtPathologist Signature Color, UAYellowClarity, UAClearGlucose, UANegativeNegative - 2000(110) ++++ mg/dLBilirubin, UANegativeNegative - 4(70) +++ mg/dLKetones, UANegativeNegative - 160(16) ++++ mg/dLSpec Grav, UA1.0101 - 1.03Blood, UANegativeNegative - 50 Mark/mcLpH, UA6.05 - 9Protein, UANegativeNegative - 2000(20) ++++ mg/dL Urobilinogen, UA1.00.2 - 12 mg/dLLeukocytes, UA2+Negative - 500+++ Mahsa/mcL Nitrite, UANegativeNegative - PositiveSpecimen (Source)Anatomical Location / LateralityCollection Method / VolumeCollection TimeReceived HudsTqyke90/23/2025 9:05 AM EDT Narrative Authorizing ProviderResult TypeResult StatusCutler Army [facility] OF [facility] TEST ENTER/EDIT ORDERABLESFinal Result * US OB BPP W NON-STRESS (02/15/2025 8:08 AM EDT) Only the most recent of7 resultswithin the time period is included. Anatomical RegionLateralityModalityOtherSpecimen (Source)Anatomical Location / LateralityCollection Method / VolumeCollection TimeReceived Time02/15/2025 8:08 AM EDT Narrative 02/15/2025 8:11 AM EDT [facility] ?[address] ? [place] [address] ? Ultrasound Report ? Signed ? Patient: ALONDRA BEAVER ?MR#: [id number] ?? : 1995 ?Acct:[id number] ?? Age/Sex: 29 / F ?ADM Date: 02/15/25 ?? Loc: US ? Attending Dr: Rocio Lozano D.O. ? Ordering Physician: Blake,Rocio D.O. ?? Date of Service: 02/15/25 ?? Procedure(s): US OB BPP w non-stress ?? Accession Number(s): [id number] ? cc: Rocio Lozano D.O.; Zita Alanis M.D. ? [facility] ? [address] ? [place] [address] ? Patient Name: ?? ALONDRA BEAVER ? MRN: [facility]:[id number] ? date: 1995 ?Sex: F ?? Assigned Patient Location: [facility] ?? Current Patient Location: ? Accession/Order Number: [id number] ?? Exam Date: 02/15/2025 ??07:15 ?Report Date: [...] M.D. ??02/15/2025 8:08 AM ? Dictation Location: [facility]--02 ? Electronically authenticated by: [id number] ??Y ?? Date: 02/15/2025 ??08:08 ? Dictated By: ?Zita Lu M.D. ? Signed By: ?02/15/25 0811 ? DD/ 0808 ? TD/TT: ? Steel Sampler: Procedure Note Radiology, Radiologist, MD - 02/15/[address] [address] Ultrasound Report Signed Patient: ALONDRA BEAVER [facility]#: [id number] : 1995Acct:[id number] Age/Sex: 29 / FADM Date: 02/15/25 Loc: US Attending Dr: Rocio Lozano D.O. Ordering Physician: Rocio Lozano D.O. Date of Service: 02/15/25 Procedure(s): US OB BPP w non-stress Accession Number(s): [id number] cc: Rocio Lozano D.O.; Zita Alanis M.D. [place] [address] Patient Name: ALONDRA BEAVER MRN: [facility]:[id number] date: 1995 Sex: F Assigned Patient Location: [facility] Current Patient Location: Accession/Order Number: [id number] Exam Date: 02/15/2025 07:15 Report Date: 02/15/2025 [...] Lu M.D. 02/15/2025 8:08 AM Dictation Location: [place] [address] Electronically authenticated by: [id number] Y Date: 508:08 Dictated By: Zita Lu M.D. Signed By:02/15/25810 DD/ 7 TD/TT: Steel Sampler: Authorizing ProviderResult TypeResult StatusCorey Blake DOCLINISYNC IMAGINGFinal Result * CULTURE, GROUP B STREP WITH SUSCEPTIBLITY (01/29/2025 8:30 AM EDT)Specimen (Source)Anatomical Location / LateralityCollection Method / VolumeCollection TimeReceived SamnPmev07/22/2025 8:30 AM EDT Narrative Authorizing ProviderResult TypeResult StatusCorey Blake DOLAB BLOOD ORDERABLES Final ResultPerforming OrganizationAddressCity/State/ZIP CodePhone [...] Terry Rodriguez MD Authorizing ProviderResult TypeResult StatusCorey Blake DOIMG OB US PROCEDURES Final Result from Last 3 Months Additional Health Concerns Active ProblemsNoted DateDiagnosed DateOB Pevhtyayy23/04/2025 Insurance Care Teams Team MemberRelationshipSpecialtyStart DateEnd Date Unallocated, Noms Justina, [address] [place] [phone] PCP - GeneralFamily Medicine06/23/23
--- OUTSIDE RECORDS SUMMARY | 2025-03-05 18:14 | XMS_ITS | Encounter Summary ---
Author Organization [facility] Address [address] [place] [address] Care Team Providers Care Inner Tube Inserter Name Role Phone Unallocated, Noms Provider [facility] Encounter Details DateTypeDepartmentCare Team (Latest Contact Info)Kdgqbscvrsl57/23/2025amboo flowsheet TORREY MONTANO [address] [place] [address] Nadine Gurrola PA [address] [facility] [place] [address] Social History Tobacco UseTypesPacks/DayYears UsedDateSmoking Tobacco: NeverSmokeless [...] or more drinks on one occasion?Less than ibguhzi3302/08/2024HQ-2AnswerDate RecordedPatient Health Questionnaire-2 Gsagj298Estimated Date of ImthkrnkIlifvfcuXaf58/20/2025Based on Ultrasound, FHR- 173Sex and Gender InformationValueDate RecordedSex Assigned at BirthNot on fileLegal HvlHfxmcd77/10/2023 11:24 AM ESTGender IdentityNot on file Sexual [...] Additional Health Concerns Active ProblemsNoted DateDiagnosed DateOB Uirnolhdr01/04/2025 documented as of this encounter Care Teams Team MemberRelationshipSpecialtyStart DateEnd Date Unallocated, Noms Provider, [address] [place] [address] PCP - GeneralFamily Medicine06/23/23documented as of this encounter
--- OUTSIDE RECORDS SUMMARY | 2025-03-05 18:14 | XMS_ITS | Encounter Summary ---
Author Organization [facility] Address [address] [place] [address] Care Team Providers Care Boiler House Mechanic Name Role Phone Unallocated, Noms Provider Primary Care [facility] Encounter Details DateTypeDepartmentCare Team (Latest Contact Info)Qyafctbwdfa47/23/2025Telephone [facility] [address] [place] [address] [place] [address] Teresa Ambriz LPN Social History Tobacco UseTypesPacks/DayYears UsedDateSmoking Tobacco: NeverSmokeless [...] or more drinks on one occasion?Less than uuqinjb7602/08/2024HQ-2AnswerDate RecordedPatient Health Questionnaire-2 Njopt461Estimated Date of GozuwflzQawzmvtyHbt22/20/2025Based on Ultrasound, FHR- 173Sex and Gender InformationValueDate RecordedSex Assigned at BirthNot on fileLegal RnyFlnujf76/06/2024 11:24 AM ESTGender IdentityNot on file Sexual OrientationNot on fileOccupationIndustryJob Start DateJob End DateNot on fileNot on fileNot on fileNot on filedocumented as of this encounter Miscellaneous Notes * Telephone Encounter - Teresa Ambriz LPN - 03/01/2025 10:59 AM EDT 1055am called patient and informed her that IOL time changed and will now be on Wednesday03/05/25 @ 6pm. PVU --Teresa Kapadia LPN documented in this encounter Plan of Treatment Not on file documented as of this encounter Goals GoalPatient Goal TypeAssociated ProblemsRecent ProgressPatient-Stated?Author Reminders Care PlanOB Jennifer Juan RNdocumented as of this encounter Visit Diagnoses Not on filedocumented in this encounter Additional Health Concerns Active ProblemsNoted DateDiagnosed DateOB Tvplewqgn96/04/2025 documented as of this encounter Care Teams Team MemberRelationshipSpecialtyStart DateEnd Date Unallocated, Noms [place], [address] [place] [address] PCP - GeneralFamily Medicine06/23/23documented as of this encounter
[2025-03-05 18:51] LABS: Hematocrit 36.1 % (36.0-48.0); Hemoglobin 12.2 g/dL (12.0-16.0); Mean Corpuscular HGB Conc 33.8 g/dL (29.9-35.2); Mean Corpuscular Hemoglobin 29.9 pg (26.7-34.0); Mean Corpuscular Volume 88.5 fL (81.0-99.0); Platelet Count 197 10^3/uL (150-450); Red Blood Count 4.08 10^6/uL (4.20-5.40); White Blood Count 11.9 10^3/uL (4.0-11.0)
[2025-03-05 19:04] LABS: Cannabinoid Screen Urine NEGATIVE (NEGATIVE); Methamphetamines Screen Urine NEGATIVE (NEGATIVE); Tricyclic Antidepressant Urine NEGATIVE (NEGATIVE)
[2025-03-05] MEDS: MISOPROSTOL 100 MCG TABLET 25 MCG VAGINAL ×2 (19:49→23:01)
[2025-03-06] VITALS (92 sets, daily range): BP systolic 99–176; BP diastolic 52–93; PULSE 71–151; TEMP 36.6–36.8
[2025-03-06] MEDS: MISOPROSTOL 100 MCG TABLET 25 MCG VAGINAL (02:01)
[2025-03-06] MEDS: 0.9 % SODIUM CHLORIDE 1,000 ML 125 ML IV ×3 (06:24→15:09)
[2025-03-06] MEDS: OXYTOCIN/0.9 % SODIUM CHLORIDE 10 UNITS/500 ML PLAST..BAG 6 UNIT IV (06:25)
[2025-03-06] MEDS: ROPIVACAINE HCL/PF 400 MG/200 ML PREMIX 10 MG EPIDURAL (11:55)
[2025-03-06] MEDS: ONDANSETRON 4 MG RAPDIS TABLET SL (16:00)
--- NOTE | 2025-03-06 18:22 | PM.OBPRCVD ---
Procedure Intrapartal events: None Induction method: per pitocin protocol Delivery augmentation: rupture of membranes and pitocin Delivery monitor: external FHT and external uterine Route of delivery: Episiotomy Description: midline L&D Laceration Description: perineal - 2nd degree Delivery repair: Vicryl Estimated blood loss (mL): 250 Anesthesia type: Epidural Disposition: floor Infant Delivery date: 03/06/25 Gender: female presentation: vertex Placental delivery description: Spontaneous cord description: 3 Vessels
[2025-03-06] MEDS: OXYTOCIN/0.9 % SODIUM CHLORIDE 20 UNITS/1,000 ML PLAST..BAG 125 UNIT IV (18:37)
[2025-03-06] MEDS: LIDOCAINE HCL 1% 200 MG/20 ML MDV INJ (18:37)
[2025-03-06] MEDS: IBUPROFEN 600 MG TABLET PO (21:41)
[2025-03-06] MEDS: ACETAMINOPHEN 325 MG TABLET 650 MG PO (22:15)
[2025-03-06] MEDS: GLYCERIN/WITCH HAZEL PADS 1 PAD TOPICAL (22:57)
[2025-03-06] MEDS: BENZOCAINE/MENTHOL 85 GRAM SPRAY BOTTLE 1 APPLIC TOPICAL (22:58)
[2025-03-07 06:26] LABS: Hematocrit 32.1 % (36.0-48.0); Hemoglobin 10.9 g/dL (12.0-16.0); Immature Granulocytes Abs Auto 0.20 10^3/uL (0.00-0.03); Immature Granulocytes Pct Auto 1.0 % (0.0-0.5); Lymphocytes Absolute Auto 1.8 10^3/uL (1.2-3.8); Mean Corpuscular HGB Conc 34.0 g/dL (29.9-35.2); Mean Corpuscular Hemoglobin 30.9 pg (26.7-34.0); Mean Corpuscular Volume 90.9 fL (81.0-99.0); Platelet Count 174 10^3/uL (150-450); Red Blood Count 3.53 10^6/uL (4.20-5.40); White Blood Count 20.6 10^3/uL (4.0-11.0)
[2025-03-07] MEDS: IBUPROFEN 600 MG TABLET PO ×3 (09:14→22:15)
[2025-03-07] MEDS: DOCUSATE SODIUM 100 MG CAPSULE PO ×2 (09:14→21:55)
[2025-03-07 11:15] VITALS: BP 131/68; PULSE 86; TEMP 36.3
--- NOTE | 2025-03-07 14:52 | PM.OBPN ---
[place] - PN: Subj Subjective Patient comments: no complaints, pain well controlled and tolerating diet [place] status: doing well and well Exam Constitutional Vital Signs, click to edit/add: Last Vital Signs Temp 97.3 F L 03/07/25 11:15 Pulse 86 03/07/25 11:15 Resp 16 03/07/25 11:20 BP 131/68 03/07/25 11:15 O2 Del Method Room Air 03/06/25 23:45 Documenting provider has reviewed patient's vital signs: yes Common normals: no apparent distress and oriented x3 General appearance: cooperative Orientation/consciousness: Yes awake HENMT Common normals: normocephalic Respiratory Common normals: normal respiratory effort and no retractions Cardio Common normals: regular rate GI Palpation: soft Uterus palpation: other (fundus firm and non-tender below umbilicus) Back & Pelvis Common normals: no CVA tenderness Extremity Common normals: normal to inspection and no pedal edema Neuro Common normals: oriented x3 and CN's II-XII intact bilaterally Psych Common normals: mental status grossly normal, thought process normal and affect normal Appearance: grossly normal Results Labs Labs: Short CBC 03/07/25 Range/Units 06:12 WBC 20.6 H (4.0-11.0) 10^3/uL Hgb 10.9 L (12.0-16.0) g/dL Hct 32.1 L (36.0-48.0) % Plt Count 174 (150-450) 10^3/uL OB - PN: A/P Plan - Vaginal Delivery day: 1 Plan: routine care Comment: home tomorrow Time Spent with Patient Time: Total time spent is greater than 50% in coordination of care (as documented) at patient's floor/unit and/or counseling patient: Total time spent with greater than 50% in coordination of care (as documented) at patient's floor/unit and/or counseling patient: 25 - 35 minutes
[2025-03-07 16:36] VITALS: BP 127/78; PULSE 73
[2025-03-07 17:22] VITALS: BP 127/78; PULSE 73; TEMP 36.6
--- NOTE | 2025-03-07 17:26 | PC.NURSE ---
Mother asks about small blistering (cobblestone) on upper lip. LC notes thick frenulum. Lip roll towards nose easily. Discuss impact on feeding and options for care. Parents request info for pediatric dentist for evaluation. Aldo rosie in upper gum ridge as well. Noted to have 2 raised bumps in lower gum ridge as well in place where teeth will erupt. Feels firm to palpation. Requested information given to parents as requested.
[2025-03-07 23:23] VITALS: BP 135/83; PULSE 81
[2025-03-08] MEDS: DOCUSATE SODIUM 100 MG CAPSULE PO (08:25)
[2025-03-08] MEDS: IBUPROFEN 600 MG TABLET PO (08:26)
[2025-03-08] MEDS: ACETAMINOPHEN 325 MG TABLET 650 MG PO (08:26)
[2025-03-08 08:30] VITALS: TEMP 36.8
[2025-03-08 08:32] VITALS: BP 139/88; PULSE 87
--- NOTE | 2025-03-08 11:48 | PM.OBDS ---
DS: Providers Provider Date of admission: 03/05/25 18:09 Primary care physician: Zita Alanis MD Admitting clinician: José Lozano Attending physician on admission: José Lozano Attending physician on discharge: MARTHA FAY Discharging clinician: MARTHA FAY Anticipated date of discharge: 03/08/25 DS: Diagnosis Discharge Diagnosis (1) Term delivered: Assessment and plan: home today OB - DS: Summary Hospital Course Hospital Course: She progressed well and was ambulating well. She was placed on iron for anemia. She was breast feeding without problems. Peripartum Data - Vaginal Delivery Laceration description: perineal - 2nd degree Episiotomy Description: midline Procedures: 29yo G1 now P1 delivered via over a midline episiotomy and a second degree laceration with a 30 second shoulder dystocia relieved with Micheal Alejandra's procedure and delivery of the posterior arm. Complications complications: none Delivery method: spontaneous vaginal delivery Gender: female Discharge plan: home Status at Discharge Functional status at discharge: independent ambulation Overall status at discharge: patient is progressing back to baseline Time Spent with Patient Time attestation: Total time spent providing and/or coordinating discharge services: Time spent: less than 30 minutes Exam Constitutional Vital Signs, click to edit/add: Last Vital Signs Temp 98.2 F 03/08/25 08:30 Pulse 87 03/08/25 08:32 Resp 14 03/08/25 08:30 BP 139/88 03/08/25 08:32 O2 Del Method Room Air 03/08/25 08:30 Documenting provider has reviewed patient's vital signs: yes Common normals: no apparent distress, oriented x3 and well nourished General appearance: cooperative and comfortable Orientation/consciousness: Yes awake HENMT Common normals: normocephalic Eye Common normals: EOMs intact bilaterally Respiratory Common normals: normal respiratory effort and no retractions Cardio Common normals: regular rate GI Common normals: soft to palpation Common normals: no CVA tenderness Back & Pelvis Pelvis: other (fundus firm and non-tender below umbilicus) Extremity Common normals: no calf tenderness and no pedal edema Neuro Common normals: oriented x3 Sensorium/orientation: awake and alert Psych Appearance: grossly normal Attitude: calm and engaged Activity/motor behavior: appropriate eye contact Speech: normal speech Thought process: normal thought process Attention/concentration: attention grossly intact Discharge Plan Discharge Disposition: Home, Self-Care Condition: Good Discharge Medications: New ferrous sulfate 325 mg (65 mg iron) Tablet 325 mg PO BID Qty: 60 0RF ibuprofen 600 mg Tablet 600 mg PO Q6H PRN (Reason: Moderate Pain) Qty: 40 0RF Continued diazepam [Valium] 2 mg tablet 2 mg PO BID PRN (Reason: dizziness or vertigo) Qty: 14 0RF ondansetron 4 mg tablet,disintegrating 4 mg PO DAILY PRN (Reason: nausea and vomiting) Qty: 15 0RF meclizine 25 mg tablet 25 mg PO BID PRN (Reason: dizziness) Qty: 20 0RF Activity: increase activity as tolerated Diet: regular diet Print Language: Belarusian Forms: Vaginal Delivery - Discharge, Portal Instructions Follow Up Appointments: 6 week follow up visit with Dr. Lozano Discharge location: Home self-care
== END 2025-03-08 13:50 | disposition home or self-care (01) | DRG 807 ==
PROVIDERS: Admitting Provider Obstetrics & Gynecology; PCP Family Medicine; Visit Provider Obstetrics & Gynecology
DX: O70.1 Second degree perineal laceration during delivery (principal); Z37.0 Single live birth; Z3A.41 41 weeks gestation of pregnancy; O90.81 Anemia of the puerperium; D64.9 Anemia, unspecified; O66.0 Obstructed labor due to shoulder dystocia
CPT/HCPCS: 36415; 51702; 59050; 59410; 80307; 85025; 85027; 86850; 86900; 86901; J2405; J2795; Q0162

== ENCOUNTER 2025-03-12 08:16 | Outpatient (OUT) | payer OTHER, SELFPAY ==
--- OUTSIDE RECORDS SUMMARY | 2025-03-01 07:40 | XMS_ITS | Encounter Summary ---
Author Organization [facility] Address [address] [place] [address] Care Team Providers Care Tugboat Pilot Name Role Phone Unallocated, [facility] Provider [facility] Reason for Visit * ReasonCommentsRoutine Visit Encounter Details DateTypeDepartmentCare Team (Latest Contact Info)Brizflwawco76/23/2025 8:40 AM EDTRoutine [facility] Danish MONTANO [address] [place] [id number] Nadine Gurrola PA [address] [place], [place] [id number] Third trimester ([facility]); 40 weeks gestation of ([facility]) Social History Tobacco UseTypesPacks/DayYears UsedDateSmoking Tobacco: NeverSmokeless [...] or more drinks on one occasion?Less than bjuyusn9602/08/2024HQ-2AnswerDate RecordedPatient Health Questionnaire-2 Uftqr437Estimated Date of YoldtwnqZwbbzvmjUqb62/20/2025Based on Ultrasound, FHR- 173Sex and Gender InformationValueDate RecordedSex Assigned at BirthNot on fileLegal SuoAlupke68/06/2024 11:24 AM ESTGender IdentityNot on file Sexual OrientationNot on fileOccupationIndustryJob Start DateJob End DateNot on fileNot on fileNot on fileNot on filedocumented as of this encounter Last Filed Vital Signs Vital SignReadingTime TakenCommentsBlood Pdviunxe117/7810 9:04 AM EDT Pulse--Temperature--Respiratory Rate--Oxygen Saturation--Inhaled Oxygen Concentration--Lrdqxj74.2 kg (179 lb)03/01/2025 9:04 AM EDTHeight--Body Mass Index31.7104 2:55 PM EDTdocumented in this encounter Progress Notes * LIZA Zaldivar - 03/01/2025 8:40 AM EDT Reason for Appointment: Patient ID: Angelique Carlos is a 29 y.o. female who presents for Routine Visit Patient presents today for Return OB appointment. MEDICATIONS Current Outpatient Medications Medication Instructions diazePAM (VALIUM) 2 mg meclizine (ANTIVERT) 25 mg ondansetron (ZOFRAN) 4 mg Vit-Fe Fumarate-FA ( PO) Take by mouth [...] Gilda Walp Colon cancer Paternal Grandfather Skyler Sanches Cancer [...] Appearance: Normal appearance. She is normal weight. Genitourinary: Right Adnexa: not tender and no mass present. Left Adnexa: not tender and no mass present. No cervical discharge. Breasts: Breasts are soft. Right: Normal. Left: Normal. HENT: Head: Normocephalic. Nose: Nose normal. Mouth/Throat: Mouth: Mucous membranes are moist. Cardiovascular: Rate and Rhythm: Normal rate. Pulses: Normal pulses. Pulmonary: Effort: Pulmonary effort is normal. Breath sounds: Normal breath sounds. Abdominal: General: Bowel sounds are normal. Palpations: Abdomen is soft. Musculoskeletal: General: Normal range of motion. Cervical back: Normal range of motion. Neurological: General: No focal deficit present. Mental Status: She is alert and oriented to person, place, and time. Skin: General: Skin is warm and dry. Psychiatric: Mood and Affect: Mood normal. Behavior: Behavior normal. Thought Content: Thought content normal. Judgment: Judgment normal. Vitals and nursing note reviewed. Exam conducted with a print production coordinator present. Vitals: Estimated body mass index is 31.71 kg/m?? as calculated from the following: Height as of 08/10/24: 5' 3 . Weight as of this encounter: 179 lb. BP: 130/78 Patient's last menstrual period was 05/09/2024 (exact date). Assessment/Plan ICD-10-CM 1. Third trimester ([facility]) Z34.93 POCT urinalysis dipstick manually resulted 2. 40 weeks gestation of ([facility]) Z3A.40 Return OB: Patient presents today for a routine obstetrics appointment. Patient is currently 40w3d . Patient states she is doing well but has complaints of being tired due to current . Patient has verbalizes frequent movement. labor precautions was discussed/given and patient was instructed to perform kick counts three times a day. Patient signed IOL forms today for March 05 induction at 11:00 pm. Orders Placed This Encounter Procedures POCT urinalysis dipstick manually resulted Follow Up: Patient is to return to office in 1 week for routine OB appointment. Documented by Azeb Gonzalez MA on behalf of: LIZA Zaldivar documented in this encounter Plan of Treatment Not on file documented as of this encounter Goals GoalPatient Goal TypeAssociated ProblemsRecent ProgressPatient-Stated?Author Reminders Care PlanOB RemindersJennifer Fatima RNdocumented as of this encounter Procedures Procedure NamePriorityDate/TimeAssociated DiagnosisCommentsPOCT URINALYSIS XCECFUKXWhvntad68/23/2025 9:05 AM EDT Third trimester ([facility]) documented in this encounter Results * (ABNORMAL) POCT urinalysis dipstick manually resulted (03/01/2025 9:05 AM EDT) ComponentValueRef RangeTest MethodAnalysis TimePerformed AtPathologist SignatureColor, UAYellowClarity, UAClearGlucose, UANegativeNegative - 2000(110) ++++ mg/dLBilirubin, UANegativeNegative - 4(70) +++ mg/dLKetones, UA NegativeNegative - 160(16) ++++ mg/dLSpec Grav, UA1.0101 - 1.03Blood, UA NegativeNegative - 50 Mark/mcLpH, UA6.05 - 9Protein, UANegativeNegative - 2000(20) ++++ mg/dLUrobilinogen, UA1.00.2 - 12 mg/dLLeukocytes, UA2+Negative - 500+++ Mahsa/mcLNitrite, UANegativeNegative - PositiveSpecimen (Source) Anatomical Location / LateralityCollection Method / VolumeCollection Time Received XovqZnoen54/23/2025 9:05 AM EDT Narrative Authorizing ProviderResult TypeResult StatusNadine Gurrola PAPOINT OF CARE TEST ENTER/EDIT ORDERABLESFinal Result documented in this encounter Visit Diagnoses Diagnosis Third trimester ([facility]) state, incidental 40 weeks gestation of ([facility]) documented in this encounter Additional Health Concerns Active ProblemsNoted DateDiagnosed DateOB Sefavephk56/04/2025 documented as of this encounter Care Teams Team MemberRelationshipSpecialtyStart DateEnd Date Unallocated, Noms Provider, [address] [place] [address] PCP - GeneralFamily Medicine06/23/23documented as of this encounter
--- OUTSIDE RECORDS SUMMARY | 2025-03-12 08:21 | XMS_ITS | Encounter Summary ---
Author Organization [facility] Address [address] [place] [address] Care Team Providers Care Transport Nurse Name Role Phone Unallocated, Noms Provider Primary Care Provi ulysses Encounter Details DateTypeDepartmentCare Team (Latest Contact Info)Pufvcqyhwsp70/29/2025linisync Result Encounter [facility] Unsolicited José Lozano, DO [address] [place] [address] Social History Tobacco UseTypesPacks/DayYears UsedDateSmoking Tobacco: NeverSmokeless [...] or more drinks on one occasion?Less than krnqrah1202/08/2024HQ-2AnswerDate RecordedPatient Health Questionnaire-2 Otwxy587Estimated Date of VlrqgczxRqrqhypjLif65/20/2025Based on Ultrasound, FHR- 173Sex and Gender InformationValueDate RecordedSex Assigned at BirthNot on fileLegal ZauGrmtqr26/06/2024 11:24 AM ESTGender IdentityNot on file Sexual OrientationNot on fileOccupationIndustryJob Start DateJob End DateNot on fileNot on fileNot on fileNot on filedocumented as of this encounter Plan of Treatment Not on file documented as of this encounter Goals GoalPatient Goal TypeAssociated ProblemsRecent ProgressPatient-Stated?Author Reminders Care PlanOB RemindersMadisynJennifer frazier, RNdocumented as of this encounter Procedures Procedure NamePriorityDate/TimeAssociated DiagnosisCommentsALL CBC WITH AUTO DNCQXgximft17/29/2025 6:12 AM EDT documented in this encounter Results * (ABNORMAL) ALL CBC WITH AUTO DIFF (03/07/2025 6:12 AM EDT)ComponentValueRef RangeTest MethodAnalysis TimePerformed AtPathologist SignatureTBH WBC20.6(H) 4.0 - 11.0 10 3/uLTBHTBH RBC3.53(L)4.20 - 5.40 10 6/uLTBHTBH HGB10.9(L)12.0 - 16.0 g/dLTBHTBH HCT32.1(L)36.0 - 48.0 %TBHTBH MCV90.981.0 - 99.0 fLTBHTBH MCH 30.926.7 - 34.0 pgTBHTBH MCHC34.029.9 - 35.2 g/dLTBHTBH RDW13.611.0 - 15.0 % TBHTBH [id number] - 450 10 3/uLTBHTBH MPV10.29.5 - 13.5 fLTBHNEUTROPHILS PERCENT AUTO82.7(H)43.0 - 75.0 %TBHLYMPHOCYTES PERCENT AUTO8.8(L)20.5 - 60.0 % TBHMONOCYTES PERCENT AUTO7.21.7 - 12.0 %TBHTBH EO %0.1(L)0.9 - 7.0 %TBH BASOPHILS PERCENT AUTO0.20.2 - 2.0 %TBHIMMATURE GRANULOCYTES PCT AUTO1.0(H)0.0 - 0.5 %TBHNEUTROPHILS ABSOLUTE AUTO17.0(H)1.4 - 6.5 10 3/uLTBHLYMPHOCYTES ABSOLUTE AUTO1.81.2 - 3.8 10 3/uLTBHMONOCYTES ABSOLUTE AUTO1.5(H)0.3 - 0.8 10 3/uLTBHTBH EO #0.00.0 - 0.7 10 3/uLTBHBASOPHILS ABSOLUTE AUTO0.00.0 - 0.1 10 3/uLTBHIMMATURE GRANULOCYTES ABS AUTO0.20(H)0.00 - 0.03 10 3/uLTBHSpecimen (Source)Anatomical Location / LateralityCollection Method / VolumeCollection TimeReceived Time03/07/2025 6:12 AM EDT1 6:23 AM EDT Narrative [facility]INIS[facility] - 03/07/2025 6:27 AM EDT Authorizing ProviderResult TypeResult StatusCorey Blake DOCLINISYNCFinal Result Performing OrganizationAddressCity/State/ZIP CodePhone Number CLINISYFORMERLY [facility], [facility] documented in this encounter Visit Diagnoses Not on filedocumented in this encounter Additional Health Concerns Active ProblemsNoted DateDiagnosed DateOB Mxawqepzp06/04/2025 documented as of this encounter Care Teams Team MemberRelationshipSpecialtyStart DateEnd Date Unallocated, Noms Provider, [address] [place] [address] PCP - GeneralFamily Medicine06/23/23documented as of this encounter
--- OUTSIDE RECORDS SUMMARY | 2025-03-12 08:21 | XMS_ITS | Encounter Summary ---
Author Organization [facility] Address [address] [place] [address] Care Team Providers Care Weather Strip Mechanic Name Role Phone Unallocated, Noms Provider Primary Care Provi ulysses Encounter Details DateTypeDepartmentCare Team (Latest Contact Info)Tswumrsjxle25/27/2025linisync Result Encounter [facility] External Department Unsolicited José Lozano, DO [address] [place] [address] Social History Tobacco UseTypesPacks/DayYears UsedDateSmoking Tobacco: NeverSmokeless [...] or more drinks on one occasion?Less than ummjxgs0602/08/2024HQ-2AnswerDate RecordedPatient Health Questionnaire-2 Bsfow655Estimated Date of YhnuuikiIaizqdldNrn60/20/2025Based on Ultrasound, FHR- 173Sex and Gender InformationValueDate RecordedSex Assigned at BirthNot on fileLegal DjoYxnroy24/06/2024 11:24 AM ESTGender IdentityNot on file Sexual OrientationNot on fileOccupationIndustryJob Start DateJob End DateNot on fileNot on fileNot on fileNot on filedocumented as of this encounter Plan of Treatment Not on file documented as of this encounter Goals GoalPatient Goal TypeAssociated ProblemsRecent ProgressPatient-Stated?Author Reminders Care PlanOB RemindersMadisynJennifer frazier, RNdocumented as of this encounter Procedures Procedure NamePriorityDate/TimeAssociated DiagnosisCommentsTBH DRUG SCREEN RAPID (URINE)Gofdcfr5003/05/2025 5:30 PM EDT HP CBC WITH PLATELET NO SWCUCQOPXMVGWzoennp75/27/2025 5:30 PM EDT documented in this encounter Results * [facility] DRUG SCREEN RAPID (URINE) (03/05/2025 5:30 PM EDT)ComponentValueRef Range Test MethodAnalysis TimePerformed AtPathologist SignatureCANNABINOID SCREEN URINENEGATIVENEGATIVETBHPHENCYCLIDINE SCREEN URINENEGATIVENEGATIVETBHCOCAINE SCREEN URINENEGATIVENEGATIVETBHMETHAMPHETAMINES SCREEN URINENEGATIVENEGATIVE TBHOPIATE SCREEN URINENEGATIVENEGATIVETBHAMPHETAMINE SCREEN URINENEGATIVE NEGATIVETBHBENZODIAZEPINES SCREEN URINENEGATIVENEGATIVETBHTRICYCLIC ANTIDEPRESSANT URINENEGATIVENEGATIVETBHMETHADONE SCREEN URINENEGATIVENEGATIVE TBHBARBITURATES SCREEN URINENEGATIVENEGATIVETBHOXYCODONE SCREEN URINENEGATIVE NEGATIVETBHBUPRENORPHINE SCREEN URINENEGATIVENEGATIVETBHComment: DRUG CLASS TEST SYSTEM CUT-OFF CONCENTRATIONS ARE FOLLOWS: AMP (Amphetamine): 500 ng/mL BAR (Barbiturates): 200 ng/mL BZO (Benzodiazepines): 150 ng/mL BUP (Buprenorphine): 10 ng/mL DARSHANA (Cocaine): 150 ng/mL mAMP (Methamphetamine): 500 ng/mL MTD (Methadone): 200 ng/mL OPI (Opiates): 100 ng/mL OXY (Oxycodone): 100 ng/mL PCP (Phencyclidine): 25 ng/mL THC (Cannabinoids): 50 ng/mL TCA (Trycyclic Antidepressants): 300 ng/mL Specimen (Source)Anatomical Location / LateralityCollection Method / Volume Collection TimeReceived Time03/05/2025 5:30 PM EDT1 6:46 PM EDT Narrative CLINISYNC - 03/05/2025 7:04 PM EDT Authorizing ProviderResult TypeResult StatusCorey Blake DOCLINISYNCFinal Result Performing OrganizationAddressCity/State/ZIP CodePhone Number [facility] * (ABNORMAL) HP CBC WITH PLATELET NO DIFFERENTIAL (03/05/2025 5:30 PM EDT) ComponentValueRef RangeTest MethodAnalysis TimePerformed AtPathologist SignatureTBH WBC11.9(H)4.0 - 11.0 10 3/uLTBHTBH RBC4.08(L)4.20 - 5.40 10 6/uL TBHTBH HGB12.212.0 - 16.0 g/dLTBHTBH HCT36.136.0 - 48.0 %TBHTBH MCV88.581.0 - 99.0 fLTBHTBH MCH29.926.7 - 34.0 pgTBHTBH MCHC33.829.9 - 35.2 g/dLTBHTBH RDW 13.111.0 - 15.0 %TBHTBH [id number] - 450 10 3/uLTBHTBH MPV11.29.5 - 13.5 fLTBH Specimen (Source)Anatomical Location / LateralityCollection Method / Volume Collection TimeReceived Time03/05/2025 5:30 PM EDT1 6:46 PM EDT Narrative CLINISYNC - 03/05/2025 6:56 PM EDT Authorizing ProviderResult TypeResult StatusCorey Blake DOCLINISYNCFinal Result Performing OrganizationAddressCity/State/ZIP CodePhone Number [facility] documented in this encounter Visit Diagnoses Not on filedocumented in this encounter Additional Health Concerns Active ProblemsNoted DateDiagnosed DateOB Ueefdidex80/04/2025 documented as of this encounter Care Teams Team MemberRelationshipSpecialtyStart DateEnd Date Unallocated, Noms Provider, [place] [address] PCP - GeneralFamily Medicine06/23/23documented as of this encounter
--- OUTSIDE RECORDS SUMMARY | 2025-03-12 08:22 | XMS_ITS | Encounter Summary ---
Author Organization [facility] Address [address] [place] [address] Care Team Providers Care Cable Driller Name Role Phone Unallocated, [facility]oms [facility] Encounter Details DateTypeDepartmentCare Team (Latest Contact Info)Jftjtatqjph58/23/2025amboo flowsheet TORREY MONTANO [address] [place] [address] Nadine Gurrola PA [address] [place] [address] Social History Tobacco UseTypesPacks/DayYears UsedDateSmoking Tobacco: NeverSmokeless [...] or more drinks on one occasion?Less than mdhrdxa1702/08/2024HQ-2AnswerDate RecordedPatient Health Questionnaire-2 Bkxpg479Estimated Date of IhogjjfdWmuyboivNjv26/20/2025Based on Ultrasound, FHR- 173Sex and Gender InformationValueDate RecordedSex Assigned at BirthNot on fileLegal JzyHmyujc60/10/2023 11:24 AM ESTGender IdentityNot on file Sexual [...] Additional Health Concerns Active ProblemsNoted DateDiagnosed DateOB Kxgaxzsce26/04/2025 documented as of this encounter Care Teams Team MemberRelationshipSpecialtyStart DateEnd Date Unallocated, Noms Provider, [address] [place] [address] PCP - GeneralFamily Medicine06/23/23documented as of this encounter
--- OUTSIDE RECORDS SUMMARY | 2025-03-12 08:22 | XMS_ITS | Clinical Summary ---
Author Organization [facility] Address [address] [place] [address] Care Team Providers Care Loan Reviewer Name Role Phone Unallocated, Noms Provider Primary Care Provi ulysses Allergies No known active allergies Medications MedicationSigDispense QuantityRefillsLast FilledStart DateEnd DateStatus Vit-Fe Fumarate-FA ( PO) Take by mouthActive diazePAM (Valium) 2 MG tablet 2 mg03/30/2024ctive meclizine (Antivert) 25 MG tablet 25 mg03/30/2024ctive ondansetron (Zofran) 4 MG tablet 4 mg03/30/2024ctive Encounters DateTypeDepartmentCare MjnpGzzdderolnq58/29/2025Clinisync Result Encounter NOMS External Department Unsolicited Rocio Lozano, DO 5Clinisync Result Encounter NOMS External Department Unsolicited Rocio Lozano, DO 03/01/2025 8:40 [place] [address] Nadine Gurrola PA Third trimester ([facility]); 40 weeks gestation of ([facility])03/01/20[place] [address] Teresa Ambriz LPN 03/01/2025amboo [place] [address] Nadine Gurrola PA 02/22/2025 8:40 AM EDTRoutine [facility] [place] [facility] [address] [place] [address] Nadine Gurrola PA Third trimester ([facility]); 39 weeks gestation of ([facility])5Bamboo flowsheet [facility] [place] [facility] [address] [place] [address] Nadine Gurrola PA 02/15/2025 8:50 AM EDTRoutine [facility] [place] [facility] [address] [place] [address] Rosaura Li NP Third trimester ([facility]); 38 weeks gestation of ([facility])02/15/2025linisync Result Encounter NOMS External Department Unsolicited Rocio Lozano, DO 02/08/2025 8:40 AM EDTRoutine [facility] [place] [facility] [address] [place] [address] Rosaura Li NP Third trimester ([facility]); 37 weeks gestation of ([facility])5Clinisync Result Encounter NOMS External Department Unsolicited Rocio Lozano, DO 5Bamboo flowsheet [facility] [place] [facility] [address] [place] [address] Rosaura Li NP 02/07/20259561Eieajx55/25/2025Clinisync Result Encounter NOMS External Department Unsolicited Rocio Lozano, DO 01/29/2025 8:30 AM EDTRoutine [facility] [place] [facility] [address] [place] [address] Rocio Lozano, DO Third trimester ([facility]); 36 weeks gestation of ([facility])5Bamboo flowsheet [facility] [place] [facility] [address] [place] [address] Rocio Lozano, DO 5Clinisync Result Encounter NOMS External Department Unsolicited BlakeRocio harrison, DO 5Clinisync Result Encounter NOMS External Department Unsolicited BalkeRocio harrison, DO 01/15/2025 8:50 AM EDTRoutine [facility] [place] [facility] [place] [address] Rosaura Li, LIBBY Third trimester ([facility]); 34 weeks gestation of ([facility])01/15/2025amboo flowsheet [facility] [place] [facility] [address] [place] [address] Rosaura Li, LIBBY 5Clinisync Result Encounter NOMS External Department Unsolicited Rocio Lozano, DO 5Clinisync Result Encounter NOMS External Department Unsolicited Rocio Lozano, DO 01/02/2025 8:30 AM EDTRoutine [facility] [place] [address] Rocio Lozano, DO Third trimester ([facility]); 32 weeks gestation of ([facility]); ZULMA (amniotic fluid index) borderline low01/02/2025amboo flowsheet [facility] [place] [facility] [place] [address] Rocio Lozano, DO 01/02/20252745Jqwymj72/12/2025 8:50 AM EDTRoutine [facility] [place] [address] Nadine Gurrola PA 30 weeks gestation of ([facility]); Third trimester ([facility]); HSV nwhwqcwwy52/12/2025 8:00 AM EDTAncillary Procedure [facility] [place] [facility] [place] [address] size inconsistent with dates ([facility])12/19/2024Telephone [facility] [place] [facility] [address] [place] [address] Dea Olivares, RELIEF WORKER from Last 3 Months Family History Medical HistoryRelationNameCommentsHypothyroidismMaternal [...] or more drinks on one occasion?Less than kllawtm6902/08/2024HQ-2AnswerDate RecordedPatient Health Questionnaire-2 Score0 05/16/2024Estimated Date of BbubdksxEfrszgwfKhh09/20/2025Based on Ultrasound, FHR- 173Sex and Gender InformationValueDate RecordedSex Assigned at BirthNot on fileLegal QfeDkgaup85/06/2024 11:24 AM ESTGender IdentityNot on file Sexual OrientationNot on fileOccupationIndustryJob Start DateJob End DateNot on fileNot on fileNot on fileNot on file Last Filed Vital Signs Vital SignReadingTime TakenCommentsBlood Fhftofxe611/7810 9:04 AM EDT Lwpzv058006/23/2023 9:25 AM VJQGiaqvqjpxvx72.4 ??C (97.5 ??F)06/23/2023 9:25 AM ESTRespiratory Emxt995005/15/2023 11:28 AM ESTOxygen Npvsjibrwu50%06/23/2023 9:25 AM ESTInhaled Oxygen Concentration--Khwrfw71.2 kg (179 lb)03/01/2025 9:04 AM EDT Ddijtq108 cm (5' 3 )08/10/2024 2:55 PM EDTBody Mass Index31.71008/10/2024 2:55 PM EDT Plan of Treatment Health MaintenanceDue DateLast DoneCommentsMMR Vaccines (1 of 1 - Standard series)12/13/1996DTaP/Tdap/Td Vaccines (1 - Tdap)12/13/2002Varicella Vaccines (1 of 2 - 13+ 2-dose series)12/13/2008Hepatitis B Vaccines (1 of 3 - 19+ 3-dose series)12/13/2014HPV Vaccines (1 - 3-dose SCDM series)3COVID-19 Vaccine (3 - season)/, 08/21/2020Influenza Vaccine (#1) 2025HIB VaccinesAged OutNo longer eligible based on patient's age to complete this topicHepatitis A VaccinesAged OutNo longer eligible based on patient's age to complete this topicIPV VaccinesAged OutNo longer eligible based on patient's age to complete this topicMeningococcal B VaccineAged OutNo longer eligible based on patient's age to complete this topicMeningococcal VaccineAged OutNo longer eligible based on patient's age to complete this topicPneumococcal Vaccine: Pediatrics (0 to 5 Years) and At-Risk Patients (6 to 64 Years)Aged Out No longer eligible based on patient's age to complete this topicRotavirus VaccinesAged OutNo longer eligible based on patient's age to complete this topic Goals GoalPatient Goal TypeAssociated ProblemsRecent ProgressPatient-Stated?Author Reminders Care PlanOB RemindersJennifer Fatima RN Procedures Procedure NamePriorityDate/TimeAssociated DiagnosisCommentsALL CBC WITH AUTO ALEDDctdodb18/29/2025 6:12 AM EDT [facility] DRUG SCREEN RAPID (URINE)Hmhzgbq4203/05/2025 5:30 PM EDT HMHP CBC WITH PLATELET NO STOCSIOTGPPOWutarut84/27/2025 5:30 PM EDT POCT URINALYSIS RRHAPUSOSyozdgc50/23/2025 9:05 AM EDT Third trimester ([facility]) POCT URINALYSIS GGBNKHPWXcknwxr43/16/2025 8:46 AM EDT 39 weeks gestation of ([facility]) POCT URINALYSIS HYGNHLESKtyzbis99/09/2025 8:53 AM EDT Third trimester ([facility]) US OB BPP W NON-JKQXOI7502/15/2025 8:08 AM EDT US OB BPP W NON-YQPRCA4502/08/2025 9:24 AM EDT POCT URINALYSIS ZXWXFLAAZoontox39/02/2025 8:57 AM EDT Third trimester ([facility]) US OB BPP W NON-CPOROY4302/01/2025 8:47 AM EDT POCT URINALYSIS HBNSQVBLYwuhzva20/22/2025 8:42 AM EDT Third trimester ([facility]) CULTURE, GROUP B STREP WITH XZZSLSEXGTEBGMjrekpn54/22/2025 8:30 AM EDT Third trimester ([facility]) US OB BPP W NON-YHQKQC8401/25/2025 8:50 AM EDT US OB BPP W NON-XUCCCU2401/18/2025 8:45 AM EDT POCT URINALYSIS VVQGRLIVOctqwao20/08/2025 9:01 AM EDT Third trimester ([facility]) US OB BPP W NON-YKITLE7701/08/2025 12:44 PM EDT US OB BPP W NON-YFJGSA4401/04/2025 10:27 AM EDT POCT URINALYSIS GKAMVLWBQgyflnj28/26/2025 8:29 AM EDT Third trimester ([facility]) POCT URINALYSIS KXJVUIIIYihgeyk57/12/2025 9:06 AM EDT 30 weeks gestation of ([facility]) Third trimester ([facility]) US OB FOLLOW UP TRANSABDOMINAL XKUYUSFLHverniw99/12/2025 8:25 AM EDT size inconsistent with dates ([facility]) from Last 3 Months Results * (ABNORMAL) ALL CBC WITH AUTO DIFF (03/07/2025 6:12 AM EDT)ComponentValueRef RangeTest MethodAnalysis TimePerformed AtPathologist SignatureTBH WBC20.6(H) 4.0 - 11.0 10 3/uLTBHTBH RBC3.53(L)4.20 - 5.40 10 6/uLTBHTBH HGB10.9(L)12.0 - 16.0 g/dLTBHTBH HCT32.1(L)36.0 - 48.0 %TBHTBH MCV90.981.0 - 99.0 fLTBHTBH MCH 30.926.7 - 34.0 pgTBHTBH MCHC34.029.9 - 35.2 g/dLTBHTBH RDW13.611.0 - 15.0 % TBHTBH [id number] - 450 10 3/uLTBHTBH MPV10.29.5 - 13.5 [...] Blake DOCLINISYNCFinal Result Performing OrganizationAddressCity/State/ZIP CodePhone Number [facility] * [facility] DRUG SCREEN RAPID (URINE) (03/05/2025 5:30 PM [...] Blake DOCLINISYNCFinal Result Performing OrganizationAddressCity/State/ZIP CodePhone Number [facility] * (ABNORMAL) [facility] CBC WITH PLATELET NO DIFFERENTIAL (03/05/2025 5:30 PM EDT) ComponentValueRef RangeTest MethodAnalysis TimePerformed AtPathologist SignatureTBH WBC11.9(H)4.0 - 11.0 10 3/uLTBHTBH RBC4.08(L)4.20 - 5.40 10 6/uL TBHTBH HGB12.212.0 - 16.0 g/dLTBHTBH HCT36.136.0 - 48.0 %TBHTBH MCV88.581.0 - 99.0 fLTBHTBH MCH29.926.7 - 34.0 pgTBHTBH MCHC33.829.9 - 35.2 g/dLTBHTBH RDW 13.111.0 - 15.0 %TBHTBH FNJ525669 - 450 10 3/uLTBHTBH MPV11.29.5 - 13.5 fLTBH Specimen (Source)Anatomical Location / LateralityCollection Method / Volume Collection TimeReceived Time03/05/2025 5:30 PM EDT1 6:46 PM EDT Narrative [facility] - 03/05/2025 6:56 PM EDT Authorizing ProviderResult TypeResult StatusCoreivonne Blake DOCLINISYNCFinal Result Performing OrganizationAddressCity/State/ZIP CodePhone Number [facility] * (ABNORMAL) POCT urinalysis dipstick manually resulted [...] Location / LateralityCollection Method / VolumeCollection TimeReceived VskjWqswe62/23/2025 9:05 AM EDT Narrative Authorizing ProviderResult TypeResult StatusNadine Gurrola [facility]ARE TEST ENTER/EDIT ORDERABLESFinal Result * US OB BPP W NON-STRESS (02/15/2025 8:08 AM EDT) Only the most recent of7 resultswithin the time period is included. Anatomical RegionLateralityModalityOtherSpecimen (Source)Anatomical Location / LateralityCollection Method / VolumeCollection TimeReceived Time02/15/2025 8:08 AM EDT Narrative 02/15/2025 8:11 AM EDT [facility] ?[address] ? [place] [address] ? Ultrasound Report ? Signed ? Patient: BEAVER,ALONDRA N ?MR#: [id number] ?? : 1995 ?Acct:[id number] ?? Age/Sex: 29 / F ?ADM Date: 10/09/25 ?? Loc: US ? Attending Dr: Rocio Lozano D.O. ? Ordering Physician: Rocio Lozano D.O. ?? Date of Service: 02/15/25 ?? Procedure(s): US OB BPP w non-stress ?? Accession Number(s): [id number] ? cc: Rocio Lozano D.O.; Zita Alanis M.D. ? [facility] ? [address] ? [place] [address] ? Patient Name: ?? ALONDRA BEAVER ? MRN: [facility]:[id number] ? date: 1995 ?Sex: F ?? Assigned Patient Location: [facility] ?? Current Patient Location: ? Accession/Order Number: [id number] ?? Exam Date: 02/15/2025 ??07:15 ?Report Date: [...] M.D. ??02/15/2025 8:08 AM ? Dictation Location: [facility]--02 ? Electronically authenticated by: [id number] ??Y ?? Date: 02/15/2025 ??08:08 ? Dictated By: ?Zita Lu M.D. ? Signed By: ?02/15/25 0811 ? DD/ 0808 ? TD/TT: ? Restaurant Bartender: Procedure Note Radiology, Radiologist, MD - 02/15/2025 [facility] [place] [id number] Ultrasound Report Signed Patient: ALONDRA BEAVER NMR#: [id number] : 1995Acct:[id number] Age/Sex: 29 / FADM Date: 02/15/25 Loc: US Attending Dr: Rocio Lozano D.O. Ordering Physician: Rocio Lozano D.O. Date of Service: 02/15/25 Procedure(s): US OB BPP w non-stress Accession Number(s): [id number] cc: Rocio Lozano D.O.; Zita Alanis M.D. The [address] [address] Patient Name: ALONDRA BEAVER MRN: [facility]:[id number] date: 1995 Sex: F Assigned Patient Location: [facility] Current Patient Location: Accession/Order Number: [id number] Exam Date: 02/15/2025 07:15 Report Date: 02/15/2025 [...] NORMAL BIOPHYSICAL PROFILE Impression dictated by: Zita uL M.D. 02/15/2025 8:08 AM Dictation Location: [place] [address] Electronically authenticated by: [id number] Y Date: 508:08 Dictated By: Zita Lu M.D. Signed By:02/15/25810 DD/ 7 TD/TT: Restaurant Bartender: Authorizing ProviderResult TypeResult StatusCorey Blake DOCLINISYNC IMAGINGFinal Result * CULTURE, GROUP B STREP WITH SUSCEPTIBLITY (01/29/2025 8:30 AM EDT)Specimen (Source)Anatomical Location / LateralityCollection Method / VolumeCollection TimeReceived OzkaEvkm34/22/2025 8:30 AM EDT Narrative Authorizing ProviderResult TypeResult [...] examination of October 26, 2024 estimated delivery wasOctober 26, 2025 and weight by percentile was 24% * Estimated Weight (g) by Percentile is based upon an accurateestimated age based on last menstrual period. TRANSCRIBED BY: ELECTRONICALLY SIGNED BY: Terry Rodriguez MD Authorizing ProviderResult TypeResult StatusCorey Blake KERN OB US PROCEDURES Final Result from Last 3 Months Additional Health Concerns Active ProblemsNoted DateDiagnosed DateOB Gglltmjmh87/04/2025 Insurance Care Teams Team MemberRelationshipSpecialtyStart DateEnd Date Unallocated, Noms MD Just[place] [address] [address] PCP - GeneralFamily Medicine06/23/23
--- OUTSIDE RECORDS SUMMARY | 2025-03-12 08:22 | XMS_ITS | Encounter Summary ---
Author Organization [facility] Address [address] [place] [address] Care Team Providers Care Applications Sales Consultant Name Role Phone Unallocated, Noms Provider Primary Care Provi [facility] Encounter Details DateTypeDepartmentCare Team (Latest Contact Info)Nzorueufpwo09/23/2025Telephone [facility] [address] [place] [address] [place] [address] Teresa Ambriz LPN Social History Tobacco [...] or more drinks on one occasion?Less than smpllza12/01/2024PHQ-2AnswerDate RecordedPatient Health Questionnaire-2 Oxscg625Estimated Date of TikiviclOxmlyoulHty88/20/2025Based on Ultrasound, FHR- 173Sex and Gender InformationValueDate RecordedSex Assigned at BirthNot on fileLegal NovShhhqp10/06/2024 11:24 AM ESTGender IdentityNot on file Sexual [...] Additional Health Concerns Active ProblemsNoted DateDiagnosed DateOB Yuewzcdqc22/04/2025 documented as of this encounter Care Teams Team MemberRelationshipSpecialtyStart DateEnd Date Unallocated, Noms [place], [address] [place] [address] PCP - GeneralFamily Medicine06/23/23documented as of this encounter
--- OUTSIDE RECORDS SUMMARY | 2025-03-12 08:24 | XMS_ITS | CCD ---
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 Name Role Phone DR JANES GARCIA Admitting Unavailable JOSE, DR JANES Escobar Attending Unavailable REQUEST, NONE LISTED Primary Care Unavaila verna GARCIA, DR JANES Escobar Consulting Unavailable Lisandro Buitrago Unavailable DO Lisandro Buitrago Attending Provider Tyrell Stiles Unavailable Lisandro Buitrago Attending Unavailable Lisandro Buitrago Admitting Unavailable Unallocated , Noms Provider Primary Care Provi ulysses JOSÉ LOZANO Attending Unavailable NADINE GALVAN Attending Unavailable BLAKE, JOSÉ Attending Unavailable GALILEO, NADINE Attending Unavailable BLAKE, JOSÉ Attending Unavailable BLAKE, JOSÉ Referring Unavailable NADINE GALVAN Attending Unavailable BLAKE, JOSÉ Attending Unavailable MADELEINE BUNDY Attending Unavailable JEN, KERA Attending Unavailable BLAKE, JOSÉ Attending Unavailable JEN, KERA Attending Unavailable JEN, KERA Attending Unavailable GALILEO, NADINE Attending Unavailable GALILEO, NADINE Attending Unavailable Zita Alanis Attending Unavailable Zita Alanis Primary Care Unavailable Medications Current Medications MedicationDrug Class(es)DatesSig (Normalized)Sig (Original)diazePAM 2 mg oral tablet (4 sources)BenzodiazepineStart: 88-86-2379qhumdFQV (Valium) 2 MG tablet 2 mg 03/30/2024 Activemeclizine hydrochloride 25 mg oral tablet (4 sources)AntiemeticStart: 49-38-9706zmvzfpsuf (Antivert) 25 MG tablet 25 mg 03/30/2024 Activenaproxen 500 mg oral tablet (1 source)Nonsteroidal Anti-inflammatory DrugStart: 75-95-0665kgol 1 tablet by mouth every twelve hours at mealtime as neededNaproxen 500 MG 1 tablet with food or milk as needed Orally every 12 hrs for 20 days May, Activeondansetron 4 mg oral tablet (4 sources)Serotonin-3 Receptor AntagonistStart: 16-83-4864hpmmaiwmokc (Zofran) 4 MG tablet 4 mg 03/30/2024 ActivePrenatal Vit-Fe Fumarate-FA ( PO) (20 sources) Vit-Fe Fumarate-FA ( PO) Take by mouth Active Completed/Discontinued Medications MedicationDrug Class(es)DatesSig (Normalized)Sig (Original)azithromycin 250 mg oral tablet (3 sources)Macrolide AntimicrobialStart: 08-21-2024 End: 17-19-7172dvpfjwwxsawp (Zithromax Z-Triston) 250 MG tablet Indications: Sore throat As directed 6 tablet 08/21/2024 08/29/2024 Nfzocduxuvco24 day ethinyl estradiol 0.162788 mg/hr / etonogestrel 0.005 mg/hr vaginal system (6 sources)Progestin, EstrogenStart: 05-13-2023 End: 91-87-0091AinDwco 0.12-0.015 MG/24HR vaginal ring INSERT 1 RING [...] for surveillance of vaginal ring hormonal contraceptive device]96-55-3808PvshzuuyQhaxzgnj mellitus without complication (2 sources)Abnormal glucose tolerance test; Translations: [Other abnormal glucose]98-75-3201WekdmhasNpilsnami of lipid metabolism (1 source)Hyperlipidemia; Translations: [Hyperlipidemia, unspecified]Chronic Esophageal disorders (1 source)Gastro-esophageal reflux disease without esophagitis; Translations: [GERD WITHOUT ESOPHAGITIS]Onset: 81-77-5099NxewosxCsbwgfzrk disorders (8 sources)Amenorrhea; Translations: [Amenorrhea, unspecified]61-60-4136Alijbwc Nausea and vomiting (3 sources)Nausea with vomiting, unspecified; Translations: [NAUSEA WITH VOMITING UNSPECIFIED]Onset: 35-65-3199MbivudcwYmmvbgnujejfu gastroenteritis (1 source)Noninfective gastroenteritis and colitis, unspecified; Translations: [NONINFECTIVE GE AND COLITIS UNS]Onset: 02-99-3996NkbopusjZfgpvstayim chest pain (3 sources)Chest pain, unspecified; Translations: [Chest pain]Onset: 03-02-2023 EpisodicOther and ill-defined heart disease (2 sources)Left atrial enlargement; Translations: [Cardiomegaly]ChronicOther and ill-defined heart disease (1 source)CardiomegalyChronicOther complications of (2 sources) size does not accord with dates; Translations: [Uterine size- date discrepancy, unspecified trimester]77-43-1894OliccjmrYpidl complications of (2 sources)Abnormal amniotic fluid; Translations: [Other abnormal findings on screening of mother]35-86-4134WucwxrdpZllza endocrine disorders (2 sources)Disorder of endocrine system; Translations: [Endocrine disorder, unspecified]18-43-3220CzckmjdhAvebq non-traumatic joint disorders (2 sources)Pain in left shoulder; Translations: [Acute pain of left shoulder] EpisodicOther and delivery including normal (20 sources)Normal ; Translations: [Encounter for supervision of normal first , first trimester]40-79-0516CoxaqsrqArwyo screening for suspected conditions (not mental disorders or infectious disease) (9 sources)Abnormal electrocardiogram [ECG] [EKG]; Translations: [Cancer cervix screening status]EpisodicResidual codes; unclassified (2 sources)Gestation period, 14 weeks; Translations: [14 weeks gestation of ]60-59-7732DvmzqdiiGfbcdjnh codes; unclassified (2 sources)Gestation period, 22 weeks; Translations: [22 weeks gestation of ]68-21-7037IwmxjfvgHnjcnuyp codes; unclassified (2 sources)Gestation period, 26 weeks; Translations: [26 weeks gestation of ]36-88-8834UhzdodfaHxokyewc codes; unclassified (2 sources)Gestation period, 28 weeks; Translations: [28 weeks gestation of ]39-91-0361MpfzspfhOwgulsge codes; unclassified (2 sources)Gestation period, 30 weeks; Translations: [30 weeks gestation of ]52-42-1744OojfyjykFlswmcog codes; unclassified (2 sources)Gestation period, 32 weeks; Translations: [32 weeks gestation of ]85-97-7547XgxvezzbXevwkphe codes; unclassified (2 sources)Gestation period, 34 weeks; Translations: [34 weeks gestation of ]05-46-4385KwkpcwsiBsjemuqv codes; unclassified (2 sources)Gestation period, 36 weeks; Translations: [36 weeks gestation of ]09-99-5647AotojxngGdypnjkq codes; unclassified (2 sources)Gestation period, 37 weeks; Translations: [37 weeks gestation of ]84-15-0375RrxacryzYdvzvmml codes; unclassified (2 sources)Gestation period, 38 weeks; Translations: [38 weeks gestation of ]74-99-0876AnqmmyngOeypfpdj codes; unclassified (2 sources)Gestation period, 39 weeks; Translations: [39 weeks gestation of ]37-65-9150FwyusovcZwzqbiwk codes; unclassified (2 sources)Gestation period, 40 weeks; Translations: [40 weeks gestation of ]79-76-8823KrljtdknGqxvcaw and strains (1 source)Strain of muscle, fascia and tendon of lower back, initial encounter EpisodicUnclassified (1 source)Pain in left shoulder; Translations: [Pain in left shoulder]Onset: 41-27-5070Mxtmzbhpnzoo (20 sources)OB RemindersOnset: Viral infection (4 sources)Herpes simplex; 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, unspecified] 76-52-2031Mubclwdt Results Test NameValueInterpretationReference RangeFacilityALL CBC WITH AUTO DIFFon 67-13-1767BWHNYGGKD ABSOLUTE AUTO0.0NOMS HealthcareBasophils/100 WBC (Bld)0.2 % 0.2 - 2.0 %NOM[facility] HealthcareEosinophils/100 WBC (Bld)0.1 %Low0.9 - 7.0 %[facility] KirkwoodErythrocyte distribution width (RBC) [Ratio]13.6 %11.0 - 15.0 %[facility] KirkwoodHematocrit (Bld) [Volume fraction]32.1 %Low36.0 - 48.0 %[facility] KirkwoodHemoglobin (Bld) [Mass/Vol]10.9 g/dLLow12.0 - 16.0 g/dLSaint Joseph Hospital of Kirkwood IMMATURE GRANULOCYTES ABS AUTO0.20HighSaint Joseph Hospital of KirkwoodImmature granulocytes/100 WBC (Bld)1.0 %High0.0 - 0.5 %[facility] KirkwoodInterpretation and review of laboratory resultsAbnormalSaint Joseph Hospital of KirkwoodLYMPHOCYTES ABSOLUTE AUTO1.8NOMS [facility] Medical CenterLymphocytes/100 WBC (Bld)8.8 %Low20.5 - 60.0 %[facility] HospitalH (RBC) [Entitic mass]30.9 pg26.7 - 34.0 pgRay County Memorial HospitalHC (RBC) [Mass/Vol]34.0 g/dL29.9 - 35.2 g/dLRay County Memorial HospitalV (RBC) [Entitic vol]90.9 fL81.0 - 99.0 fL [facility] KirkwoodMONOCYTES ABSOLUTE AUTO1.5HighSaint Joseph Hospital of KirkwoodMonocytes/100 WBC (Bld)7.2 %1.7 - 12.0 %[facility] KirkwoodNEUTROPHILS ABSOLUTE AUTO17.0HighSaint Joseph Hospital of KirkwoodNeutrophils/100 WBC (Bld)82.7 %High43.0 - 75.0 %[facility] Platelet mean volume (Bld) [Entitic vol]10.2 fL9.5 - 13.5 fLKindred Hospital EO #0.0NOFreeman Neosho Hospital WIF514EOGHFreeman Neosho Hospital RBC3.53LowKindred Hospital WBC20.6HighSaint Joseph Hospital of KirkwoodCLINISYNCNOMS [facility] CBC WITH PLATELET NO DIFFERENTIALon 46-25-2765Qlwalfgxbgx distribution width (RBC) [Ratio]13.1 %11.0 - 15.0 %[facility] KirkwoodHematocrit (Bld) [Volume fraction]36.1 %36.0 - 48.0 %[facility] KirkwoodHemoglobin (Bld) [Mass/Vol]12.2 g/dL12.0 - 16.0 g/dLSaint Joseph Hospital of Kirkwood Interpretation and review of laboratory resultsAbnormEncompass Health Rehabilitation Hospital of SewickleyH (RBC) [Entitic mass]29.9 pg26.7 - 34.0 pgRay County Memorial HospitalHC (RBC) [Mass/Vol]33.8 g/dL 29.9 - 35.2 g/dLRay County Memorial HospitalV (RBC) [Entitic vol]88.5 fL81.0 - 99.0 fLSaint Joseph Hospital of KirkwoodPlatelet mean volume (Bld) [Entitic vol]11.2 fL9.5 - 13.5 fLSaint Joseph Hospital of KirkwoodTBH AEL604FLMZExcelsior Springs Medical CenterTB RBC4.08LowKindred Hospital WBC11.9High [facility] KirkwoodCLINISYNCNNORMAN REGIONAL [facility] HealthcareRad - Other Radiology Reporton 03-05-2025 Rad - Other Radiology [id number]#1.00OTOhioHealth Berger HospitalRad - Other Radiology Reporton 56-50-6555Iga - Other Radiology [id number]#1.00OTGTMain Campus Medical CenterUrinalysis macro (dipstick) panel (U)on 96-14-1643Kkwsuqzbv, UA NegativeNegative - 4(70) +++ mg/dLNOMS HealthcareBlood, UANegativeNegative - 50 Mark/mcLNOMS HealthcareClarity, UAClearNOMD HealthcareColor, UAYellowNOMD HealthcareGlucose, UANegativeNegative - 2000(110) ++++ mg/dLINTERMOUNTAIN HEALTHCARE Healthcare Interpretation and review of laboratory resultsAbnormalINTERMOUNTAIN HEALTHCARE HealthcareKetones, UANegativeNegative - 160(16) ++++ mg/dLNOMD HealthcareLeukocytes, UA2+Negative - 500+++ Mahsa/mcLNOMS HealthcareNitrite, UANegativeNegative - PositiveNOMS HealthcarepH, UA6.05 - 9NOMS HealthcareProtein, UANegativeNegative - 2000(20) ++++ mg/dLNOMS HealthcareSpec Grav, UA1.0101 - 1.03NOMS HealthcareUrobilinogen, UA1.00.2 - 12 mg/dLSaint Joseph Hospital of KirkwoodNOMD HealthcareUrinalysis macro (dipstick) panel (U)on 24-25-3606Typcrusml, UANegativeNegative - 4(70) +++ mg/dLNOMS HealthcareBlood, UANegativeNegative - 50 Mark/mcLNOMS HealthcareClarity, UAClear NOMS HealthcareColor, UAYellowNOMS HealthcareGlucose, UANegativeNegative - 2000(110) ++++ mg/dLNOMD HealthcareInterpretation and review of laboratory resultsAbnormalNOMS HealthcareKetones, UANegativeNegative - 160(16) ++++ mg/dL NOMS HealthcareLeukocytes, UA2+Negative - 500+++ Mahsa/mcLNOMS HealthcareNitrite, UANegativeNegative - PositiveNOMS HealthcarepH, UA7.05 - 9N[facility] Healthcare Protein, UANegativeNegative - 2000(20) ++++ mg/dLNOMD HealthcareSpec Grav, UA 1.0051 - 1.03NOMS HealthcareUrobilinogen, UA2.00.2 - 12 mg/dLNOMD HealthcareNOMD HealthcareOutside Recordson 50-89-4346Lkdaqhs Records [id number]#1.00OTUniversity Hospitals Elyria Medical CenterRad - Other Radiology Reporton 11-90-0920Vtk - Other Radiology Report [id number]#1.00OTUniversity Hospitals Elyria Medical CenterUS OB BPP W NON-STRESSon 19-22-8106[place], [place] [address] Ultrasound Report Signed Patient: ALONDRA BEAVER MR#: [id number] : 1995 Acct:[id number] Age/Sex: 29 / F ADM Date: 02/15/25 Loc: US Attending Dr: José Lozano D.O. Ordering Physician: José Lozano D.O. Date of Service: 02/15/25 Procedure(s): US OB BPP w non-stress Accession Number(s): [id number] cc: José Lozano D.O.; Zita Alanis M.D. The [address] [address] Patient Name: ALONDRA BEAVER MRN: [id number] date: 1995 Sex: F Assigned Patient Location: [facility] Current Patient Location: Accession/Order Number: [id number] Exam Date: 02/15/2025 07:15 Report Date: 02/15/2025 [...] Lu M.D. 02/15/2025 8:08 AM Dictation Location: [place] [address] Electronically authenticated by: [id number] Y Date: 02/15/2025 08:08 Dictated By: Zita Lu M.D. Signed By: 02/15/25810 DD/ 7 TD/TT: Recycling Specialist:RODRICKadiologivonne, Radiologist, - 02/15/2025 [place] [address] Ultrasound Report Signed Patient: ALONDRA BEAVER MR#: [id number] : 1995 Acct:[id number] Age/Sex: 29 / F ADM Date: 02/15/25 Loc: US Attending Dr: José Lozano D.O. Ordering Physician: José Lozano D.O. Date of Service: 02/15/25 Procedure(s): US OB BPP w non-stress Accession Number(s): [id number] cc: José Lozano D.O.; Zita Alanis M.D. [place] [address] Patient Name: ALONDRA BEAVER MRN: [facility]:[id number] date: 1995 Sex: F Assigned Patient Location: [facility] Current Patient Location: Accession/Order Number: [id number] Exam Date: 02/15/2025 07:15 Report Date: 02/15/2025 [...] Lu M.D. 02/15/2025 8:08 AM Dictation Location: [place] [address] Electronically authenticated by: [id number] Y Date: 02/15/2025 08:08 Dictated By: Zita Lu M.D. Signed By: 02/15/25810 DD/ 7 TD/TT: Recycling Specialist: NOMS HealthcareRadiology Study observation (narrative)[facility] OB BPP W NON-STRESSOrdered By: Radiologist Radiology on 66-74-7715CJTYSaint Joseph Hospital of Kirkwood Work Phone: Urinalysis macro (dipstick) panel (U)on 02-15-2025 Bilirubin, UANegativeNegative - 4(70) +++ mg/dLNOMS HealthcareBlood, UANegative Negative - 50 Mark/mcLNOMS HealthcareClarity, UAClearNOMS HealthcareColor, UA YellowNOMS HealthcareGlucose, UANegativeNegative - 2000(110) ++++ mg/dLNOMS HealthcareInterpretation and review of laboratory resultsAbnormalNOMD Healthcare Ketones, UANegativeNegative - 160(16) ++++ mg/dLNOMS HealthcareLeukocytes, UA PositiveNegative - 500+++ Mahsa/mcLNOMS HealthcareComment on above:1+Nitrite, UA NegativeNegative - PositiveNOMS HealthcarepH, UA65 - 9NOMS HealthcareProtein, UA NegativeNegative - 2000(20) ++++ mg/dLNOMS HealthcareSpec Grav, UA1.011 - 1.03 [facility] HealthcareUrobilinogen, UA0.20.2 - 12 mg/dLNOBoone Hospital Center Healthcare Rad - Other Radiology Reporton 02-62-6541Shh - Other Radiology Report [id number]#1.00OTGTIFFOhioHealth Dublin Methodist Hospital OB BPP W NON-STRESSon 51-18-7173[place], [place] [address] Ultrasound Report Signed Patient: ALONDRA BEAVER MR#: [id number] : 1995 Acct:[id number] Age/Sex: 29 / F ADM Date: 02/08/25 Loc: US Attending Dr: José Lozano D.O. Ordering Physician: José Lozano D.O. Date of Service: 02/08/25 Procedure(s): US OB BPP w non-stress Accession Number(s): [id number] cc: José Lozano D.O.; Zita Alanis M.D. The [address] [address] Patient Name: ALONDRA BEAVER MRN: [facility]:[id number] date: 1995 Sex: F Assigned Patient Location: [facility] [place] [facility]/Order Number: [id number] Exam Date: 02/08/2025 07:10 Report Date: 02/08/2025 [...] Lu M.D. 02/08/2025 9:24 AM Dictation Location: [place] [address] Electronically authenticated by: [id number] Y Date: 02/08/2025 09:24 Dictated By: Zita Lu M.D. Signed By: 02/08/25926 DD/ 3 TD/TT: Recycling Specialist:RODRICKadiologivonne, Radiologist, - 02/08/2025 [place] [address] Ultrasound Report Signed Patient: ALONDRA BEAVER MR#: [id number] : 1995 Acct:[id number] Age/Sex: 29 / F ADM Date: 02/08/25 Loc: US Attending Dr: José Lozano D.O. Ordering Physician: José Lozano D.O. Date of Service: 02/08/25 Procedure(s): US OB BPP w non-stress Accession Number(s): [id number] cc: José Lozano D.O.; Zita Alanis M.D. [place] [address] Patient Name: ALONDRA BEAVER MRN: [facility]:[id number] date: 1995 Sex: F Assigned Patient Location: [facility] Current Patient [place] [facility] Accession/Order Number: [id number] Exam Date: 02/08/2025 07:10 Report Date: 02/08/2025 [...] Lu M.D. 02/08/2025 9:24 AM Dictation Location: [place] [address] Electronically authenticated by: [id number] Y Date: 02/08/2025 09:24 Dictated By: Zita Lu M.D. Signed By: 02/08/25926 DD/ 3 TD/TT: Recycling Specialist: TORREY HealthcareRadiology Study observation (narrative)NOMS HealthcareUS OB BPP W NON-STRESSOrdered By: Radiologist Radiology on 42-37-2887DNMF Healthcare Work Phone: Urinalysis macro (dipstick) panel (U)on 02-08-2025 Bilirubin, UANegativeNegative - 4(70) +++ mg/dLNOMS HealthcareBlood, UANegative Negative - 50 Mark/mcLNOMS HealthcareClarity, UAClearNOMS HealthcareColor, UA YellowNOMS HealthcareGlucose, UANegativeNegative - 2000(110) ++++ mg/dLNOMS HealthcareInterpretation and review of laboratory resultsAbnormalNOMS Healthcare Ketones, UANegativeNegative - 160(16) ++++ mg/dLNOMS HealthcareLeukocytes, UA1+ Negative - 500+++ Mhasa/mcLNOMS HealthcareNitrite, UANegativeNegative - Positive NOMS HealthcarepH, UA65 - 9NOMS HealthcareProtein, UANegativeNegative - 2000(20) ++++ mg/dLNOMS HealthcareSpec Grav, UA1.011 - 1.03NOMS HealthcareUrobilinogen, UA1.00.2 - 12 mg/dLNOMS HealthcareNOMS HealthcareUS OB BPP W NON-STRESSon 13-58-1259[place], [place] [address] Ultrasound Report Signed Patient: ALONDRA BEAVER MR#: [id number] : 1995 Acct:[id number] Age/Sex: 29 / F ADM Date: 02/01/25 Loc: US Attending Dr: José Lozano D.O. Ordering Physician: José Lozano D.O. Date of Service: 02/01/25 Procedure(s): US OB BPP w non-stress Accession Number(s): [id number] cc: José Lozano D.O.; Zita Alanis M.D. [address] [address] Patient Name: ALONDRA BEAVER MRN: [id number] date: 1995 Sex: F Assigned Patient Location: [facility] Current Patient Location: Accession/Order Number: [id number] Exam Date: 02/01/2025 07:05 Report Date: 02/01/2025 08:47 At the request of: JOSÉ LOZANO DO Procedure: US OB BPP w non-stress Biophysical profile. Reason for exam: Borderline low ZULMA COMPARISON: 01/25/2025 TECHNIQUE: Transabdominal imaging of the gravid uterus was obtained. FINDINGS: The video editing intern reports a BPP of 8 out of 8. ZULMA is normal at 12.1 cm. heart rate 150 bpm. US/US OB BPP w non-stress IMPRESSION: BPP 8 out of 8. Impression dictated by: Terry Puentes Jr., D.O. 02/01/2025 8:47 AM Dictation Location: [place] [address] Electronically authenticated by: [id number] Y Date: 02/01/2025 08:47 Dictated By: Terry Puentes M.D. Signed By: 02/01/25 0849 DD/ TD/TT: Recycling Specialist:TBHRadiology, Radiologist, - 02/01/2025 [place] [address] Ultrasound Report Signed Patient: ALONDRA BEVAER MR#: [id number] : 1995 Acct:[id number] Age/Sex: 29 / F ADM Date: 02/01/25 Loc: US Attending Dr: José Lozano D.O. Ordering Physician: José Lozano D.O. Date of Service: 02/01/25 Procedure(s): US OB BPP w non-stress Accession Number(s): [id number] cc: José Lozano D.O.; Zita Alanis M.D. The [address] [address] Patient Name: ALONDRA BEAVER MRN: [id number] date: 1995 Sex: F Assigned Patient Location: [facility] Current Patient Location: Accession/Order Number: [id number] Exam Date: 02/01/2025 07:05 Report Date: 02/01/2025 08:47 At the request of: JOSÉ LOZAON DO Procedure: US OB BPP w non-stress Biophysical profile. Reason for exam: Borderline low ZULMA COMPARISON: 01/25/2025 TECHNIQUE: Transabdominal imaging of the gravid uterus was obtained. FINDINGS: The video editing intern reports a BPP of 8 out of 8. ZULMA is normal at 12.1 cm. heart rate 150 bpm. US/US OB BPP w non-stress IMPRESSION: BPP 8 out of 8. Impression dictated by: Terry Puentes Jr., D.O. 02/01/2025 8:47 AM Dictation Location: [place] [address] Electronically authenticated by: [id number] Y Date: 02/01/2025 08:47 Dictated By: Terry Puentes M.D. Signed By: 02/01/2549 DD/ TD/TT: Recycling Specialist: [facility]PITALApurva HealthcareRadiology Study observation (narrative)NOMS HealthcareUS OB BPP W NON-STRESSOrdered By: Radiologist Radiology on 89-28-5614HARBSaint [facility] Work Phone: Urinalysis macro (dipstick) panel (U)on [...] ++++ mg/dLNOMS HealthcareSpec Grav, UA1.011 - 1.03 NOMS HealthcareUrobilinogen, UA0.20.2 - 12 mg/dLNOMercyhealth Mercy Hospital Rad - Other Radiology Reporton 07-60-3482Nhv - Other Radiology Report [id number]#1.00OTGTIFFOhioHealth Dublin Methodist Hospital OB BPP W NON-STRESSon 85-98-7835[place], [place] [address] Ultrasound Report Signed Patient: ALONDRA BEAVER MR#: [id number] : 1995 Acct:[id number] Age/Sex: 29 / F ADM Date: 01/25/25 Loc: US Attending Dr: José Lozano D.O. Ordering Physician: José Lozano D.O. Date of Service: 01/25/25 Procedure(s): US OB BPP w non-stress Accession Number(s): [id number] cc: José Lozano D.O.; Zita Alanis M.D. [place] [address] Patient Name: ALONDRA BEAVER MRN: [id number] date: 1995 Sex: F Assigned Patient Location: [facility] Current Patient Location: Accession/Order Number: [id number] Exam Date: 01/25/2025 07:01 Report Date: 01/25/2025 [...] amniotic fluid greater than 2 cm [Y] / ZULMA: 13.05 cm. This is in low-normal range. Total score: 12/15 US/US OB BPP w non-stress IMPRESSION: NORMAL BIOPHYSICAL PROFILE Impression dictated by: Zita Lu M.D. 01/25/2025 8:50 AM Dictation Location: [place] [address] Electronically authenticated by: [id number] Y Date: 01/25/2025 08:50 Dictated By: Zita Lu M.D. Signed By: 01/25/25 0852 DD/ 0850 TD/TT: Recycling Specialist:ANDREINAHRadiology, Radiologist, - 01/25/2025 [place] [address] Ultrasound Report Signed Patient: ALONDRA BEAVER MR#: [id number] : 1995 Acct:[id number] Age/Sex: 29 / F ADM Date: 01/25/25 Loc: US Attending Dr: José Lozano D.O. Ordering Physician: José Lozano D.O. Date of Service: 01/25/25 Procedure(s): US OB BPP w non-stress Accession Number(s): [id number] cc: José Lozano D.O.; Zita Alanis M.D. The [address] [id number] Patient Name: ALONDRA BEAVER MRN: [id number] date: 1995 Sex: F Assigned Patient Location: [facility] Current Patient Location: Accession/Order Number: [id number] Exam Date: 01/25/2025 07:01 Report Date: 01/25/2025 [...] Lu M.D. 01/25/2025 8:50 AM Dictation Location: [employer] Electronically authenticated by: [id number] Y Date: 01/25/2025 08:50 Dictated By: Zita Lu M.D. Signed By: 01/25/25 0852 DD/ TD/TT: Recycling Specialist: [facility] KirkwoodRadiology Study observation (narrative)[facility] KirkwoodUS OB BPP W NON-STRESSOrdered By: Radiologist Radiology on 14-58-0864VZWT Healthcare Work Phone: US OB BPP W NON-STRESSon 81-95-9799[place], [place] [address] Ultrasound Report Signed Patient: ALONDRA BEAVER MR#: [id number] : 1995 Acct:[id number] Age/Sex: 29 / F ADM Date: 01/18/25 Loc: US Attending Dr: José Lozano D.O. Ordering Physician: José Lozano D.O. Date of Service: 01/18/25 Procedure(s): US OB BPP w non-stress Accession Number(s): [id number] cc: José Lozano D.O.; Zita Alanis M.D. The [place] [id number] Patient Name: ALONDRA BEAVER MRN: [id number] date: 1995 Sex: F Assigned Patient Location: [facility] Current Patient Location: Accession/Order Number: [id number] Exam Date: 01/18/2025 07:04 Report Date: 01/18/2025 [...] Lu M.D. 01/18/2025 8:45 AM Dictation Location: [place] [address] Electronically authenticated by: [id number] Y Date: 01/18/2025 08:45 Dictated By: Zita Lu M.D. Signed By: 01/18/2548 DD/ TD/TT: Recycling Specialist:TBHRadiology, Radiologist, MD - 01/18/2025 [place] [address] Ultrasound Report Signed Patient: ALONDRA BEAVER MR#: [id number] : 1995 Acct:[id number] Age/Sex: 29 / F ADM Date: 01/18/25 Loc: US Attending Dr: José Lozano D.O. Ordering Physician: José Lozano D.O. Date of Service: 01/18/25 Procedure(s): US OB BPP w non-stress Accession Number(s): [id number] cc: José Lozano D.O.; Zita Alanis M.D. [place] [address] Patient Name: ALONDRA BEAVER MRN: [id number] date: 1995 Sex: F Assigned Patient Location: [facility] Current Patient Location: US Accession/Order Number: [id number] Exam Date: 01/18/2025 07:04 Report Date: 01/18/2025 [...] Lu M.D. 01/18/2025 8:45 AM Dictation Location: [place] [address] Electronically authenticated by: [id number] Y Date: 01/18/2025 08:45 Dictated By: Zita Lu M.D. Signed By: 01/18/2548 DD/ 4 TD/TT: Recycling Specialist: TORREY HealthcareRadiology Study observation (narrative)NOMApurva HealthcareUS OB BPP W NON-STRESSOrdered By: Radiologist Radiology on 00-90-6383KQGY Healthcare Work Phone: Urinalysis macro (dipstick) panel [...] 1.03 NOMS HealthcareUrobilinogen, UA0.20.2 - 12 mg/dLNOMS HealthcareNOMS Healthcare Outside Recordson 11-73-4652Dkosxnj Records [id number]#1.00OTGTUniversity [facility] Outside [id number]#1.00OTGTProMedica [facility] OB BPP W NON-STRESSon 49-17-4039[address] [address] Ultrasound Report Signed Patient: ALONDRA BEAVER MR#: [id number] : 1995 Acct:[id number] Age/Sex: 29 / F ADM Date: 01/08/25 Loc: US Attending Dr: José Lozano D.O. Ordering Physician: José Lozano D.O. Date of Service: 01/08/25 Procedure(s): US OB BPP w non-stress Accession Number(s): [id number] cc: José Lozano D.O.; Zita Alanis M.D. The [address] [address] Patient Name: ALONDRA BEAVER MRN: TBH:[id number] date: 1995 Sex: F Assigned Patient Location: [place] [facility]/Order Number: [id number] Exam Date: 01/08/2025 12:03 Report Date: 01/08/2025 12:44 At the request of: JOSÉ LOZANO DO Procedure: US OB BPP w non-stress Biophysical profile. Reason for exam: Abnormal BPP. COMPARISON: 01/04/2025 TECHNIQUE: Transabdominal imaging of the gravid uterus was obtained. FINDINGS: The video editing intern reports a BPP of 8 out of 8. ZULMA is normal at 14.8 cm. heart rate 135 bpm. US/US OB BPP w non-stress IMPRESSION: BPP 8 out of 8. Impression dictated by: Terry Puetnes Jr., D.O. 01/08/2025 12:44 PM Dictation Location: [place] [address] Electronically authenticated by: [id number] Y Date: 01/08/2025 12:44 Dictated By: Terry Puentes M.D. Signed By: 01/08/25 1246 DD/ 1244 TD/TT: Recycling Specialist:RODRICKadiologivonne, Radiologist, - 01/08/2025 [place] [address] Ultrasound Report Signed Patient: ALONDRA BEAVER MR#: [id number] : 1995 Acct:[id number] Age/Sex: 29 / F ADM Date: 01/08/25 Loc: US Attending Dr: José Lozano D.O. Ordering Physician: José Lozano D.O. Date of Service: 01/08/25 Procedure(s): US OB BPP w non-stress Accession Number(s): [id number] cc: José Lozano D.O.; Zita Alanis M.D. The [place] [id number] Patient Name: ALONDRA BEAVER MRN: [id number] date: 1995 Sex: F Assigned Patient Location: [place] Patient [place] [facility] Accession/Order Number: [id number] Exam Date: 01/08/2025 12:03 Report Date: 01/08/2025 12:44 At the request of: JOSÉ LOZANO DO Procedure: US OB BPP w non-stress Biophysical profile. Reason for exam: Abnormal BPP. COMPARISON: 01/04/2025 TECHNIQUE: Transabdominal imaging of the gravid uterus was obtained. FINDINGS: The video editing intern reports a BPP of 8 out of 8. ZLUMA is normal at 14.8 cm. heart rate 135 bpm. US/US OB BPP w non-stress IMPRESSION: BPP 8 out of 8. Impression dictated by: Terry Puentes Jr., D.O. 01/08/2025 12:44 PM Dictation Location: [place] [address] Electronically authenticated by: [id number] Y Date: 01/08/2025 12:44 Dictated By: Terry Puentes M.D. Signed By: 01/08/25 1246 DD/ 1244 TD/TT: Recycling Specialist: TORREY HealthcareRadiology Study observation (narrative)NOMS HealthcareUS OB BPP W NON-STRESSOrdered By: Radiologist Radiology on 03-13-5779[facility] Work Phone: US OB BPP W NON-STRESSon 47-23[place], [place] [address] Ultrasound Report Signed Patient: ALONDRA BEAVER MR#: [id number] : 1995 Acct:[id number] Age/Sex: 29 / F ADM Date: 01/04/25 Loc: US Attending Dr: José Lozano D.O. Ordering Physician: José Lozano D.O. Date of Service: 01/04/25 Procedure(s): US OB BPP w non-stress Accession Number(s): [id number] cc: José Lozano D.O.; Zita Alanis M.D. [place] [id number] Patient Name: ALONDRA BEAVER MRN: [id number] date: 1995 Sex: F Assigned Patient Location: [facility] Current Patient Location: Accession/Order Number: [id number] Exam Date: 01/04/2025 07:10 Report Date: 01/04/2025 10:27 At the request of: JOSÉ LOZANO DO Procedure: US OB BPP w non-stress BIOPHYSICAL PROFILE: CLINICAL INFORMATION: ZULMA BORDERLINE LOW O28.8 COMPARISON: None There is a single live intrauterine gestation in cephalic presentation. The reported gestational age is 32 weeks 3 days. The heart rate yhkkvejs140 beats per minute. FINDINGS: TONE: 1 or [...] Lu M.D. 01/04/2025 10:27 AM Dictation Location: [place] [address] Electronically authenticated by: [id number] Y Date: 01/04/2025 10:27 Dictated By: Zita Lu M.D. Signed By: 01/04/25 1030 DD/ 1027 TD/TT: Recycling Specialist:RODRICKadiologivonne, Radiologist, - 01/04/2025 [place] [address] Ultrasound Report Signed Patient: ALONDRA BEAVER MR#: [id number] : 1995 Acct:[id number] Age/Sex: 29 / F ADM Date: 01/04/25 Loc: US Attending Dr: José Lozano D.O. Ordering Physician: José Lozano D.O. Date of Service: 01/04/25 Procedure(s): US OB BPP w non-stress Accession Number(s): [id number] cc: José Lozano D.O.; Zita Alanis M.D. [place] [address] Patient Name: ALONDRA BEAVER MRN: [facility]:[id number] date: 1995 Sex: F Assigned Patient Location: [facility] Current Patient Location: Accession/Order Number: [id number] Exam Date: 01/04/2025 07:10 Report Date: 01/04/2025 10:27 At the request of: JOSÉ LOZANO DO Procedure: US OB BPP w non-stress BIOPHYSICAL PROFILE: CLINICAL INFORMATION: ZULMA BORDERLINE LOW O28.8 COMPARISON: None There is a single live intrauterine gestation in cephalic presentation. The reported gestational age is 32 weeks 3 days. The heart rate wjedwgmd946 beats per minute. FINDINGS: TONE: 1 or [...] Lu M.D. 01/04/2025 10:27 AM Dictation Location[facility] Electron[facility] authenticated by: [id number] Y Date: 01/04/2025 10:27 Dictated By: Zita Lu M.D. Signed By: 01/04/25 1030 DD/ 1027 TD/TT: Recycling Specialist: TORREY HealthcareRadiology Study observation (narrative)NOMApurva HealthcareUS OB BPP W NON-STRESSOrdered By: Radiologist Radiology on 87-30-3282CZTM Healthcare Work Phone: Urinalysis macro (dipstick) panel [...] HealthcareNOMS HealthcareUS OB FOLLOW UP TRANSABDOMINAL APPROACHon 62-38-0247OA OB FOLLOW UP TRANSABDOMINAL APPROACHFINDINGS: Comparison made [...] menstrual period. TRANSCRIBED BY: ELECTRONICALLY SIGNED BY: Odette Jaime AvailableComment on above:Order Comment: US OB SCAN FOR GROWTH Estimated Date of Delivery: 02/26/25 Gestational Age as of 12/05/2024: 32i5fUwwnortoed macro (dipstick) panel (U) Ordered By: Teresa Ambriz on 53-14-4017Qinpflyrc, UANegativeNegative - 4(70) +++ mg/dLNOMS HealthcareBlood, UANegativeNegative - 50 Mark/mcLNOMS Healthcare Clarity, UAClearNOMS HealthcareColor, UAYellowNOMS HealthcareGlucose, UANegative Negative - 2000(110) ++++ mg/dLNOMS HealthcareInterpretation and review of laboratory resultsAbnormalNOMS HealthcareKetones, UANegativeNegative - 160(16) ++++ mg/dLNOMS HealthcareLeukocytes, UA3+Negative - 500+++ Mahsa/mcLNOMS HealthcarepH, UA65 - 9NOMS HealthcareProtein, UANegativeNegative - 2000(20) ++++ mg/dLNOMS HealthcareSpec Grav, UA1.0151 - 1.03NOMS HealthcareUrobilinogen, UA 0.20.2 - 12 mg/dLNOMS HealthcareNOMS HealthcareGLUCOSE TOLERANCE 3 HOURon 59-53-9090JWJJDNG TOLERANCE 3 HOURmg/dLNOMS HealthcareComment on above:GLU FAST 93 (<95) Col: 11/28/24 0641 GLU 1HR 149 (<180) Col: 11/28/24 0743 GLU 2HR 118 (<155) Col: 11/28/24 0843 GLU 3HR 81 (<140) Col: 11/28/24 0942 CLINISYNCNOMS HealthcareALL CBC WITH AUTO DIFFon 60-64-5744UMLWBYIDD ABSOLUTE SRZS9BSLD HealthcareBasophils/100 WBC (Bld)0.4 %0.2 - 2.0 %[facility] Eosinophils/100 WBC (Bld)1.2 %0.9 - 7.0 %NOMS HealthcareErythrocyte distribution width (RBC) [Ratio]13 %11.0 - 15.0 %[facility] HealthcareHematocrit (Bld) [Volume fraction]35.6 %Low36.0 - 48.0 %[facility] HealthcareHemoglobin (Bld) [Mass/Vol]11.9 g/dLLow12.0 - 16.0 g/dLSaint Joseph Hospital of KirkwoodIMMATURE GRANULOCYTES ABS AUTO0.13HighNOMD HealthcareImmature granulocytes/100 WBC (Bld)1.2 %High0.0 - 0.5 %[facility] HealthcareInterpretation and review of laboratory resultsAbnormalSaint [facility] of [facility] LYMPHOCYTES ABSOLUTE AUTO1.3NOExcelsior Springs Medical CenterLymphocytes/100 WBC (Bld)11.6 %Low 20.5 - 60.0 %[facility] HospitalH (RBC) [Entitic mass]30.9 pg26.7 - 34.0 pgNOSaint Joseph Hospital of KirkwoodHC (RBC) [Mass/Vol]33.4 g/dL29.9 - 35.2 g/dLSaint Joseph Hospital of KirkwoodMCV (RBC) [Entitic vol]92.5 fL81.0 - 99.0 fLSaint Joseph Hospital of KirkwoodMONOCYTES ABSOLUTE AUTO0.5NOMS HealthcareMonocytes/100 WBC (Bld)4.9 %1.7 - 12.0 %[facility] KirkwoodNEUTROPHILS ABSOLUTE AUTO8.8HighNOMS HealthcareNeutrophils/100 WBC (Bld)80.7 %High43.0 - 75.0 %[facility] KirkwoodPlatelet mean volume (Bld) [Entitic vol]10.5 fL9.5 - 13.5 fLSaint Joseph Hospital of KirkwoodTB EO #0.1NOMS [facility] Medical CenterTB CMP965EOBT [facility] RBC3.85 LowNOFreeman [facility]os[facility] WBC10.9NOMD HealthcareCLINISYNCNNORMAN REG[facility]AL [facility] HealthcareUrinalysis macro (dipstick) panel (U)on 59-39-5238Inpwuriwp, UANegativeNegative - 4(70) +++ mg/dLNOMD HealthcareBlood, UANegativeNegative - 50 Mark/mcLNOMS Healthcare Clarity, UAClearNOMS HealthcareColor, UAYellowNOMS HealthcareGlucose, UANegative Negative - 2000(110) ++++ mg/dLINTERMOUNTAIN [facility] HealthcareInterpretation and review of laboratory resultsAbnormalNOMS HealthcareKetones, [...] 500+++ Mahsa/mcLNOMS HealthcareNitrite, UANegativeNegative - PositiveNOMS HealthcarepH, UA6.55 - 9NOMS HealthcareProtein, UANegativeNegative - 2000(20) ++++ mg/dLNOMS HealthcareSpec Grav, UA1.021 - 1.03N[facility]S Healthcare Urobilinogen, UA0.20.2 - 12 mg/dLNOMS HealthcareNOMS HealthcareUS OB 14+ WEEKS ANATOMY SCANon 54-95-5284YB OB 14+ WEEKS ANATOMY SCANEXAM: US OB [...] II, MD, PHD at 27-Oct-2024 06:14:52 AM [facility] TeleradiologyNormalNot AvailableComment on above:Order Comment: US OB ANATOMY SINGLE W US OB CERVICAL LENGTH Estimated Date of Delivery: 02/26/25 Gestational Age as of 09/28/2024: 47s5sDGE TESTon 05-74-5257JSL TEST SENT OUT UNITYNOMD FfquzmmdrhBJU1VDOSTNHHE QfogqweckaXTV72-68-00YYJX HealthcareUNITY BOX CLINISYNCNOMD HealthcareUrinalysis macro (dipstick) panel (U)on 08-29-2024 Bilirubin, UANegativeNegative - 4(70) +++ mg/dLNOMS HealthcareBlood, UANegative Negative - 50 Mark/mcLNOMS HealthcareClarity, UAClearNOMS HealthcareColor, UA YellowNOMS HealthcareGlucose, UANegativeNegative - 2000(110) ++++ mg/dLNOMD HealthcareInterpretation and review of laboratory resultsNormalSaint [facility] Hospital [facility] Ketones, UANegativeNegative - 160(16) ++++ mg/dLNOMD HealthcareLeukocytes, UA NegativeNegative - 500+++ Mahsa/mcLNOMD HealthcareNitrite, UANegativeNegative - PositiveNOMS HealthcarepH, UA65 - 9NOMS HealthcareProtein, UANegativeNegative - 2000(20) ++++ mg/dLNOMD HealthcareSpec Grav, UA1.021 - 1.03N[facility]D Healthcare Urobilinogen, UA0.20.2 - 12 mg/dLSullivan County Memorial Hospital HealthcareHCG ( test) Ql (U)on 78-46-8000Xpwxmrftgbvjri and review of laboratory resultsAbnormal NOMS HealthcarePreg Test, UrPositiveNegativeNOExcelsior Springs Medical CenterNOMD HealthcareUS OB < 14 WEEKS EARLYon 38-58-7201WW OB < 14 WEEKS EARLYEXAM: US OB [...] II, MD, PHD at 11-Aug-2024 08:40:37 AM [facility] TeleradiologyNormalNot AvailableComment on above:Order Comment: US OB Patient's last menstrual period was 05/09/2024 (exact date).Urinalysis macro (dipstick) panel (U)on 64-85-0703Jrlkctkbs, UANegativeNegative - 4(70) +++ mg/dL NOMS HealthcareBlood, UANegativeNegative - 50 Mark/mcLNOMD HealthcareClarity, UA ClearNOMS HealthcareColor, UAYellowNOMS HealthcareGlucose, UANegativeNegative - 2000(110) ++++ mg/dLNOMD HealthcareInterpretation and review of laboratory resultsAbnormSt. Mary's [facility] HealthcareKetones, UAPositiveNegative - 160(16) ++++ mg/dL [facility] HealthcareComment on above:40Leukocytes, UANegativeNegative - 500+++ Mahsa/mcLNOMS HealthcareNitrite, UANegativeNegative - PositiveNOMS HealthcarepH, UA5.55 - 9NOMS HealthcareProtein, UANegativeNegative - 2000(20) ++++ mg/dLNOMD HealthcareSpec Grav, UA1.021 - 1.03NOMS HealthcareUrobilinogen, UA0.20.2 - 12 mg/dLNOExcelsior Springs Medical CenterNOMD HealthcareOutside Recordson 03-81-6703Graulxd Records [id number]#1.00[facility] Outside Recordson 00-12-7017Lfaytxa Records [id number]#1.00[facility] Consent Formson 84-93-7847Xtusgow Forms [id number]#1.00[facility] Cytology Cervical or vaginal smear or scraping studyon 48-33-4767TGNNSaint Joseph Hospital of [facility]wood HCG ( test) Ql (U)on 77-52-5838Qhayrqkgnwftjy and review of laboratory resultsNormalSaint Joseph Hospital of KirkwoodPreg Test, UrNegativeNOMercyhealth Mercy Hospital CMP Standardon 36-34-2168uPKO Non AA>60Invalid Interpretation [facility] HospitalComment on above:Performed By: #### [id number], [id number], 7295454, 1129824, 9407318, 1625457, 7212861 #### [facility] (DEFAULT) [address] [address] 61411zLHE AA>60Invalid Interpretation [facility] Comment on above:Performed By: #### [id number], 8707012492, 0188155, 0364938, 5073612, 9576334, 0717325 #### [facility] (DEFAULT) [address] [address] 51361Ukcwsfo [Mass/Vol]4.4 g/dLNormal3.5-5.0[facility] Comment on above:Performed By: #### [id number], 6871206514, 2843656, 3914873, 9965259, 8430776, 4635706 #### [facility] (DEFAULT) [address] [address] 06851Asynstl/Globulin [Mass ratio]1.4 {ratio}Normal1.4-2.6 Doctors HospitalComment on above:Performed By: #### [id number], 3423264538, 2666155, 5075554, 3932734, 6829149, 3749578 #### [facility] (DEFAULT) [address] [address] 01086Xco Phos67 IU/FWzuwnq31-97Tgiqdmob HospitalComment on above:Performed By: #### [id number], 7742967276, 2887117, 5467599, 1578310, 2178226, 3957650 #### [facility] (DEFAULT) [address] [address] 09685ARD [Catalytic activity/Vol]19.0 U/TOyavzv48.0-54.0 Doctors HospitalComment on above:Performed By: #### [id number], [id number], 9373378, 8161026, 4837142, 0599904, 8954130 #### [facility] (DEFAULT) [address] [address] 13198Ofmcu gap [Moles/Vol]10.8 mmol/LNormal5.0-19.0Doctors HospitalComment on above:Performed By: #### [id number], 7747833814, 6348014, 3964952, 3499658, 2092931, 8878381 #### [facility] (DEFAULT) [address] [address] 04951CLK [Catalytic activity/Vol]21 U/MCdsbjv90-55Qettwyhj HospitalComment on above:Performed By: #### [id number], 1685381536, 4105081, 3472355, 2835678, 2746217, 8054781 #### [facility] (DEFAULT) [address] [address] 84998Pyqc Total0.7 mg/dLNormal0.3-1.2MGreen Cross HospitalComment on above:Performed By: #### 5103831859, 3538640274, 4199238, 4504947, 2097019, 9297166, 3880944 #### [facility] (DEFAULT) [address] [address] 91622Vbxsdvx [Mass/Vol]8.9 mg/dLNormal8.9-10.3MGreen Cross Hospital Comment on above:Performed By: #### [id number], 7045863475, 3156355, 9042109, 3152106, 6009016, 3660258 #### [facility] (DEFAULT) [address] [address] 96895Vwjevalm [Moles/Vol]100 mmol/YSqa220-303Rdcvqzwt Hospital Comment on above:Performed By: #### [id number], 5786211136, 9690076, 4448453, 8576631, 1848532, 5923014 #### [facility] (DEFAULT) [address] [address] 50494NZ9 [Moles/Vol]26 mmol/XTmqbkd04-22Kplyxrfs Hospital Comment on above:Performed By: #### [id number], 8194891614, 0430603, 2543282, 4525312, 0601108, 6238496 #### [facility] (DEFAULT) [address] [address] 28696Xzewfhipec [Mass/Vol]0.86 mg/dLNormal0.60-1.30[facility] HospitalComment on above:Performed By: #### [id number], 4583322279, 0677800, 6314078, 5019684, 7033251, 3148388 #### [facility] (DEFAULT) [address] [address] 22193Xydtasfg (S) [Mass/Vol]3.1 g/dLNormal1.5-4.3Mwilson health HospitalComment on above:Performed By: #### [id number], 3634166112, 9489820, 6650418, 7679771, 9927237, 9173232 #### [facility] (DEFAULT) [address] [address] 84873Qagtldg [Mass/Vol]90.0 mg/nTAwfdxf71.0-118.0[facility] HospitalComment on above:Performed By: #### [id number], 5468037008, 1672775, 1005760, 2895000, 0794295, 9545008 #### [facility] (DEFAULT) [address] [address] 64256Teltarpnad632 mOsm/LInvalid Interpretation CodeCleveland Clinic Medina Hospital HospitalComment on above:Performed By: #### [id number], 2209622467, 3887463, 3107915, 3258564, 6521258, 3179746 #### [facility] (DEFAULT) [address] [address] 78725Lqsqsaitj [Moles/Vol]3.8 mmol/LNormal3.6-5.1Mwilson health HospitalComment on above:Performed By: #### [id number], 9243831843, 4916893, 4362056, 6827357, 8724253, 8969347 #### [facility] (DEFAULT) [address] [address] 55750Myjgqst [Mass/Vol]7.5 g/dLNormal6.5-8.1Mwilson health Hospital Comment on above:Performed By: #### [id number], 8324391817, 3470921, 1068837, 5282973, 4527043, 1090551 #### [facility] (DEFAULT) [address] [address] 27219Vmjzuv [Moles/Vol]133.0 mmol/EKdy611.0-144.0[facility] HospitalComment on above:Performed By: #### [id number], 6231201182, 6818626, 0206114, 2983344, 9013019, 6319054 #### [facility] (DEFAULT) [address] [address] 04567Aeqw nitrogen [Mass/Vol]17 mg/dLNormal8-26[facility] HospitalComment on above:Performed By: #### [id number], 8098126269, 3959720, 9435396, 4652066, 0955377, 3218458 #### [facility] (DEFAULT) [address] [address] 75366Nvib nitrogen/Creatinine [Mass ratio]19.7 mg/mgHigh 4.6-16.2Mwilson health HospitalComment on above:Performed By: #### [id number], 8775248230, 6728207, 8115383, 2301504, 6320900, 9417677 #### [facility] (DEFAULT) [address] [address] 77231LBHtj 90-65-6682Ejvhk glutamyl transferase [Catalytic activity/Vol]20.0 U/LNormal7.0-50.0Doctors HospitalComment on above:Performed By: #### [id number], 0138077884, 8950944, 1801674, 5090918, 2586856, 0455648 #### [facility] (DEFAULT) [address] [address] 38753Vcxf Levelon 07-49-8577Comu [Mass/Vol]93.0 ug/dLNormal 28.0-170.0[facility] HospitalComment on above:Performed By: #### [id number], 2707821925, 6668306, 1280453, 3102675, 2778868, 8449667 #### [facility] (DEFAULT) [address] [address] 24989ZNIbd 92-16-5308RZU045.0 IU/QNdcsgh32.0-192.0[facility] HospitalComment on above:Performed By: #### [id number], 9461342015, 0148485, 1954503, 9780230, 9402000, 7423879 #### [facility] (DEFAULT) [address] [address] 80062Ykxaj Panel Standardon 18-40-9059Wfsgrqmkgiq [Mass/Vol] 214.0 mg/bGKqle26.0-200.0[facility] HospitalComment on above:Performed By: #### [id number], 3064049802, 7608122, 8857258, 3162620, 6934333, 8225692 #### [facility] (DEFAULT) [address] [address] 45739Bvheqknovrd in HDL [Mass/Vol]64 mg/lCRtwzbs57-98Zykmtgul HospitalComment on above:Performed By: #### [id number], 6787083009, 0807525, 2148807, 1718360, 7163468, 1760281 #### [facility] (DEFAULT) [address] [address] 51398Bocbnzkkwig in LDL [Mass/Vol]144 mg/dLHigh1-100[facility] HospitalComment on above:Performed By: #### [id number], 0549821338, 4886643, 7249951, 1404232, 3784318, 7495676 #### [facility] (DEFAULT) [address] [address] 87511Xyvizqajktn.total/Cholesterol in HDL [Mass ratio]3.3 {ratio}Normal0.0-4.5[facility] HospitalComment on above:Performed By: #### [id number], 6168689502, 2051360, 7794630, 8452629, 0593061, 5569489 #### [facility] (DEFAULT) [address] [address] 41620Qszwihqzfaxp [Mass/Vol]28.0 mg/dLNormal0.0-150.0[facility] HospitalComment on above:Performed By: #### [id number], 6980834689, 2993223, 0108168, 5465977, 5716648, 2975473 #### [facility] (DEFAULT) [address] [address] 74408EDAL.6 mg/dLNormal5-40[facility]uder HospitalComment on above: Performed By: #### [id number], 2520895216, 1446818, 2809749, 8500991, 0621227, 2676915 #### [facility] (DEFAULT) [address] [address] 98405Kztenu 12-89-3832Kzpvurhkv [Mass/Vol]2.9 mg/dLNormal 2.5-4.6[facility] HospitalComment on above:Performed By: #### [id number], 8169421230, 9907835, 3423803, 4990812, 7421475, 1459478 #### [facility] (DEFAULT) [address] [address] 58939Fnvg Acidon 93-32-7949Qflin [Mass/Vol]4.0 mg/dLNormal 2.6-8.0[facility] HospitalComment on above:Performed By: #### [id number], 5919708784, 8078366, 1039285, 0767941, 5035930, 0954327 #### [facility] (DEFAULT) [address] [address] 57752IZ chest 2V*on 92-98-0082DS chest 2V*[facility] Main [address] [address] XRay Report Signed Patient: Alondra Sanches MR#: [id number] : 1995 Acct:[id number] Age/Sex: 27 / F ADM Date: 03/02/23 Loc: XDS Room: Type: [facility] Attending Dr: Lisandro Buitrago DO Copies to: Lisandro Buitrago DO Ordering Provider: Lisandro Buitrago DO Date of Service: 03/02/23 XR/XR shoulder LT min 2V*: Left shoulder pain ([id number]) XR/XR chest 2V*: Left shoulder pain;Chest pain [...] Puentes Jr., D.OReese03/02/2023 4:13 PM Dictation Location: [place] [address] Transcribed By: [facility] 03/02/231612 Dictated By: Terry Puentes Jr, DO 03/02/231611 Signed By: 03/02/231612[facility] W MANUAL DIFFon [id number] LYMPH #NormalThe Good Samaritan HospitalComment on above:Performed By: #### YASMIN #### [facility] [address] [address] [address] Susannah HopkinsATYPICAL LYMPH %NormalThe Good Samaritan HospitalComment on above: Performed By: #### CBCOCTAVIANO #### [facility] [address] [address] [address] Susannah Nice #0.3 103/ulNormal0.0-0.3The [facility] Samaritan HospitalComment on above:Performed By: #### YASMIN #### [facility] [address] [address] [address] Susannah Nice %2 %Normal0-5The [facility] Samaritan HospitalComment on above:Performed By: #### YASMIN #### [facility] [address] [place] [address] Dr. Susannah Lopez #0.00 103/ulNormal0.00-0.10The [facility] Samaritan HospitalComment on above:Performed By: #### CBCOCTAVIANO #### [facility] [address] [place] [address] Dr. Susannah Lopez %0.0 %Critically low0.2-2.0The Pep HospitalComment on above:Performed By: #### CBCMAN #### [facility] [address] [place] [address] Dr. Susannah Santizo #NormalThe Good [facility]aritan HospitalComment on above:Performed By: #### CBCOCTAVIANO #### [facility] [address] [place] [address] Dr. Susannah HopkinsBLAST %NormalThe Good Samaritan HospitalComment on above:Performed By: #### YASMIN #### [facility] [address] [place] [address] Dr. Susannah HopkinsCORRECTED WBCNormal4.0-11.0The [facility] HospitalComment on above: Performed By: #### YASMIN #### [facility] [address] [place] [address] Dr. Susannah Luis #0.00 103/ulNormal0.00-0.70The [facility] HospitalComment on above:Performed By: #### YASMIN #### [facility] [address] [place] [address] Dr. Susannah Luis%0.0 %Critically low0.9-7.0The [facility] HospitalComment on above:Performed By: #### YASMIN #### [facility] [address] [place] [address] Dr. Susannah HopkinsHCT46.0 %Vbwgbl30.0-48.0The [facility] HospitalComment on above: Performed By: #### CBCMAN #### [facility] [address] [place] [address] Dr. Susannah HopkinsHGB15.7 g/teNdmcwd32.0-16.0The [facility] HospitalComment on above: Performed By: #### YASMIN #### [facility] [address] [place] [address] Dr. Susannah Rodriguez #0.69 103/ulCritically low1.20-3.80The [facility] Comment on above:Performed By: #### YASMIN #### [facility] [address] [place] [address] Dr. Susannah Rodriguez%4.0 %Critically low20.5-60.0The [facility] HospitalComment on above:Performed By: #### YASMIN #### [facility] [address] [place] [address] Dr. Susannah MackH30.1 tsIogero95.7-34.0The [facility] HospitalComment on above: Performed By: #### YASMIN #### [facility] [address] [place] [address] Dr. Susannah MackHC34.1 g/rtBgccun22.9-35.2The [facility] HospitalComment on above:Performed By: #### YASMIN #### [facility] [address] [place] [address] Dr. Susannah MackV88.3 vAFxerjo74.0-99.0The [facility] HospitalComment on above: Performed By: #### YASMIN #### [facility] [address] [place] [address] Dr. Susannah HarrisOCYTE #NormalThe Good [facility]itan HospitalComment on above: Performed By: #### YASMIN #### [facility] [address] [place] [address] Dr. Susannah HarrisOCYTE %NormalThe [facility] HospitalComment on above: Performed By: #### YASMIN #### [facility] [address] [place] [address] Dr. Susannah Ware#1.20 103/ulCritically high0.30-0.80The [facility] Comment on above:Performed By: #### YASMIN #### [facility] [address] [place] [address] Dr. Susannah Ware%7.0 %Normal1.7-12.0The [facility] HospitalComment on above: Performed By: #### YASMIN #### [facility] [address] [place] [address] Dr. Susannah ClarkV9.8 fLNormal9.5-13.5The [facility] HospitalComment on above: Performed By: #### YASMIN #### [facility] [address] [place] [address] Dr. Susannah SantosOCYTE #NormalOhiohealth Doctors HospitalComment on above:Performed By: #### YASMIN #### [facility] [address] [place] [address] Dr. Susannah SantosOCYTE %NormalThe [facility] HospitalComment on above:Performed By: #### YASMIN #### [facility] [address] [place] [address] Dr. Susannah HopkinsNRBCNormalThe [facility] HospitalComment on above:Performed By: #### YASMIN #### [facility] [address] [place] [address] Dr. Susannah RobertsT278 103/rgVantah117-878Int [facility] HospitalComment on above: Performed By: #### YASMIN #### [facility] [address] [place] [address] Dr. Susannah HopkinsRBC5.21 106/ulNormal4.20-5.40The [facility] HospitalComment on above:Performed By: #### YASMIN #### [facility] [address] [place] [address] Dr. Susannah HopkinsRDW11.7 %Mmsjrb81.0-15.0The [facility] HospitalComment on above: Performed By: #### YASMIN #### [facility] [address] [place] [address] Dr. Susannah Willams #14.96 103/ulCritically high1.40-6.50The [facility] on above:Performed By: #### YASMIN #### [facility] [address] [place] [address] Dr. Susannah Willams %87.0 %Critically high43.0-75.0The [facility] Centerment on above:Performed By: #### CBCMAN #### [facility] [address] [place] [address] Dr. Susannah HopkinsWBC17.2 103/ulCritically high4.0-11.0The [facility] HospitalComment on above:Performed By: #### CBCMAN #### [facility] [address] [place] [address] Dr. Susannah Powers A AND B AGon 16-81-4254JBSHNXYGPQFPTMorrow County Hospital on above:Result Comment: Negative for Flu A protein angiten. Infection due to Flu A cannot be ruled out. FluA angiten in the sample may be below the detection limit of the test.Performed By: #### INFLUAB #### [facility] [address] [place] [address] Dr. Susannah ArangoUBNEGSumma Health Akron CampusCommymichigan medical center saginaw on above: Result Comment: Negative for Flu B protein antigen. Infection due to Flu B cannot be ruled out. FluB antigen in the sample may be below the detection limit of the test.Performed By: #### INFLUAB #### [facility] [address] [place] [address] Dr. Susannah Byrd AGNegativeNormalNEGATIVE SEE COMMENTThe [facility] on above:Performed By: #### INFLUAB #### [facility] [address] [place] [address] Dr. Susannah Fink AGNegativeNormalNEGATIVE SEE COMMENTThe [facility] on above:Performed By: #### INFLUAB #### [facility] [address] [place] [address] Dr. Susannah HopkinsINTERNAL CONTROLSWithin Normal LimitsNormalWithin Normal Limits The [facility] on above:Performed By: #### INFLUAB #### [facility] [address] [place] [address] Dr. Susannah Chery HCG QUALon [id number], QUALNegativeNormalNEGATIVE The [facility]aritan HospitalComment on above:Performed By: #### PREG #### [facility] [address] [place] [address] Dr. Susannah Bee 14(COMP METB)on 58-91-6817Qkvkaek [Mass/Vol]4.4 g/dLNormal 3.4-5.0The [facility] HospitalComment on above:Performed By: #### CMP #### [facility] [address] [place] [address] Dr. Susannah HopkinsAlbumin/Globulin [Mass ratio]1.1 {ratio}NormalThe Good Samaritan HospitalComment on above:Performed By: #### CMP #### [facility] [address] [place] [address] Dr. Susannah FofanaP [Catalytic activity/Vol]71 U/LAxjzin20-047Zwn [facility] HospitalComment on above:Performed By: #### CMP #### [facility] [address] [place] [address] Dr. Susannah FofanaT [Catalytic activity/Vol]19 U/JZzcbek14-56Vql [facility] HospitalComment on above:Performed By: #### CMP #### [facility] [address] [place] [address] Dr. Susannah Dickinson gap [Moles/Vol]15.1 mmol/LNormalThe [facility] Comment on above:Performed By: #### CMP #### [facility] [address] [place] [address] Dr. Susannah HopkinsAST [Catalytic activity/Vol]23 U/NFzcbfp76-52Vmf [facility] HospitalComment on above:Performed By: #### CMP #### [facility] [address] [place] [address] Dr. Susannah HopkinsBilirubin [Mass/Vol]0.9 mg/dLNormal0.2-1.3The [facility] Comment on above:Performed By: #### CMP #### [facility] [address] [place] [address] Dr. Susannah HopkinsCalcium [Mass/Vol]9.5 mg/dLNormal8.5-10.1The [facility] Comment on above:Performed By: #### CMP #### [facility] [address] [address] [address] Susannah HopkinsChloride [Moles/Vol]101 mmol/EIagnvm77-870Oqo [facility] Comment on above:Performed By: #### CMP #### [facility] [address] [address] [address] Susannah HopkinsCO2 [Moles/Vol]23.8 mmol/KFgynqx37.0-30.0The [facility] Comment on above:Performed By: #### CMP #### [facility] [address] [place] [address] Dr. Susannah HopkinsCreatinine [Mass/Vol]1.04 mg/dLNormal0.52-1.04The [facility] HospitalComment on above:Performed By: #### CMP #### [facility] [address] [address] [address] Davalos ChangEGFR-AF FRENCH>60Normal>=60The [facility]ar[facility] HospitalComment on above:Performed By: #### CMP #### [facility] [address] [place] [address] Dr. Susannah GaonaGFR-NON AF FRENCH>60Normal>=60The [facility] HospitalComment on above:Performed By: #### CMP #### [facility] [address] [address] [address] Susannah HopkinsGlobulin (S) [Mass/Vol]3.9 g/dLNormalThe [facility] HospitalComment on above:Performed By: #### CMP #### [facility] [address] [address] [address] Susannah oHpkinsGlucose [Mass/Vol]157 mg/dLCritically zpoy02-974Xzn [facility] HospitalComment on above:Performed By: #### CMP #### [facility] [address] [address] [address] Susannah HopkinsPotassium [Moles/Vol]3.9 mmol/LNormal3.4-5.0The [facility] Comment on above:Performed By: #### CMP #### [facility] [address] [address] [address] Susannah HopkinsProtein [Mass/Vol]8.3 g/dLCritically high6.1-8.2[facility] Doctors HospitalComment on above:Performed By: #### CMP #### [facility] [address] [address] [address] Susannah HopkinsSodium [Moles/Vol]136 mmol/LCritically yfb921-417Nnm [facility] HospitalComment on above:Performed By: #### CMP #### [facility] [address] [address] [address] Susannah HopkinsUrea nitrogen [Mass/Vol]20.0 mg/dLCritically high7.0-18.0The [facility] HospitalComment on above:Performed By: #### CMP #### [facility] [address] [address] [address] Susannah Vazquez nitrogen/Creatinine [Mass ratio]19.2 mg/mgNormalThe [facility] HospitalComment on above:Performed By: #### CMP #### [facility] [address] [place] [address] Dr. Susannah Hopkins Vital Signs Date TimeVital SignValuePerforming ZlvaptygkHlcbyhwy42-33-0962 09:04-0400Body mass index (BMI) [Ratio]31.71 kg/m2Nadine DE JESUS Work Phone: [facility]woodQdeavoljek95-40-4041 09:04-0400Body kqailu94.19 kgNadine DE JESUS Work Phone: [facility] KirkwoodHadjpylqyn38-28-6204 09:04-0400Diastolic blood knonvdrp32 mm[Hg]Nadine DE JESUS Work Phone: [facility]woodWphjoqwugn81-05-7569 09:04-0400Systolic blood bgqgurmj686 mm[Hg]Nadine DE JESUS Work Phone: [facility] KirkwoodWxjayhsnac15-47-1650 08:34-0400Body mass index (BMI) [Ratio]31.2 kg/m2Nadine Galvan PA Work Phone: [phone] [place], [place] [address]Nrxgiwimmu85-22-5538 08:34-0400Body .89 kgNadine Galvan PA Work Phone: [phone] [place], [place] [address]Snrgypmosw23-88-3056 08:34-0400Diastolic blood wimgapmu08 mm[Hg]Nadine Galvan PA Work Phone: [phone] [place], [place] [address]Nfuhmvutvv00-22-3308 08:34-0400Systolic blood xtdojhik173 mm[Hg]Nadine Galvan PA Work Phone: [phone] [place], [place] 9523610-09-2025 08:49-0400Body mass index (BMI) [Ratio]31.53 kg/n0PtdresicKera Youssefly [employer] CASTER Work Phone: [phone])[facility] [place], [place] [address]Wlqhxxbrel98-04-4831 08:49-0400Body .74 kgArmindaa Jen [employer]STER Work Phone: [phone] [place], [place] [address]Pylglwzdeb64-43-8108 08:49-0400Diastolic blood dtdlbell78 mm[Hg]Kera Jen [employer]STER Work Phone: [phone])[address] [place], [place] 9523610-09-2025 08:49-0400Systolic blood olxxqumq415 mm[Hg]Kera Jen S[employer] CASTER Work Phone: [phone])[address] [place], [place] 9523610-02-2025 08:56-0400Body mass index (BMI) [Ratio]30.47 kg/b0Xepjloxj Jen [employer]STER Work Phone: [phone])[address] [place], [place] 9523610-02-2025 08:56-0400Body kbaest45.02 kgKristina Jen S[employer] CASTER Work Phone: [phone])[address] [place], [place] 9523610-02-2025 08:56-0400Diastolic blood ymlfpesf68 mm[Hg]Kera Jen S[employer] CASTER Work Phone: [phone] [place], [place] [address]Maaqpupwjr71-84-1021 08:56-0400Systolic blood lninppic229 mm[Hg]Kera Jen S[employer] CASTER Work Phone: [phone] [place], [place] 9523609-22-2025 08:37-0400Body mass index (BMI) [Ratio]29.98 kg/p8Fdblh Blake DO Work Phone: [phone] [place], [place] [address]Fyvqhqflvw25-87-9674 08:37-0400Body huqkkj10.77 kgCorey Blake DO Work Phone: [phone])[facility] [place], [place] [address]Abautoiazr34-22-4489 08:37-0400Diastolic blood wpoewyji53 mm[Hg]José Blake DO Work Phone: [phone])[facility] [place], [place] [address]Epjnovmpnq37-14-1792 08:37-0400Systolic blood nbnivqys818 mm[Hg]José Blake DO Work Phone: [phone] [place], [place] [address]Acwbbwnclj68-01-3629 09:07-0400Diastolic blood eljoqark67 mm[Hg]Kera Li S[employer] CASTER Work Phone: [phone] [place], [place] [address]Nksxydzshs14-83-9286 09:07-0400Systolic blood hmcvlauo405 mm[Hg]Kera Li S[employer] CASTER Work Phone: [phone])[address] [place], [place] 9523609-08-2025 09:06-0400Body mass index (BMI) [Ratio]29.85 kg/w2SasnbqdjKera Li SAND CASTER Work Phone: [phone])[address] [place], [place] 9523609-08-2025 09:06-0400Body .43 kgKrradha Li SAND CASTER Work Phone: [phone])[facility] [place], [place] [address]Gekyyvzesw54-44-1891 08:26-0400Body mass index (BMI) [Ratio]28.96 kg/h7Kcswp Blake DO Work Phone: [phone])[facility] [place], [place] [address]Uyavprsvow74-07-6950 08:26-0400Body iraedi47.16 kgCorey Blake DO Work Phone: [phone])[facility] [place], [place] [address]Begyzwcwfm84-71-2375 08:26-0400Diastolic blood mm[Hg]José Blake DO Work Phone: [phone])[facility] [place], [place] [address]Zmxnhphbyb03-39-0406 08:26-0400Systolic blood clmpopsa687 mm[Hg]José Blake DO Work Phone: [phone] [place], [place] 9523608-12-2025 09:04-0400Body mass index (BMI) [Ratio]28.7 kg/m2Amy Galileo PA Work Phone: [facility]woodAhmrwzigxu20-42-9138 09:04-0400Body ktyjgy88.48 kgAmy [place] PA Work Phone: [facility] KirkwoodLfcawdmius14-54-2824 09:04-0400Diastolic blood vtoosjkt25 mm[Hg]Nadine Galileo PA Work Phone: [facility]woodJqwldsszvd15-13-5473 09:04-0400Systolic blood gjixkvgo323 mm[Hg]Nadine Galileo PA Work Phone: [facility] KirkwoodSmtwaznutr80-16-0743 09:23-0400Body mass index (BMI) [Ratio]28.52 kg/j0Nlygx Blake DO Work Phone: [facility] KirkwoodVoseyfzoup77-04-8357 09:23-0400Body .03 kgCorey Blake DO Work Phone: [facility] KirkwoodKliarvisbp94-93-1605 09:23-0400Diastolic blood mvxjsebl19 mm[Hg]José Blake DO Work Phone: [facility] KirkwoodIswucssgjv76-13-2666 09:23-0400Systolic blood nlmtritx132 mm[Hg]José Blake DO Work Phone: [facility] KirkwoodAumizkridm47-19-9243 08:52-0400Body mass index (BMI) [Ratio]28.19 kg/m2Amy Galileo PA Work Phone: [facility] KirkwoodCgnxxdaiqo64-57-2063 08:52-0400Body opxgqo13.18 kgAmy [place] PA Work Phone: [facility] KirkwoodQuraiqgglu10-06-2665 08:52-0400Diastolic blood etmjhnwl59 mm[Hg]Nadine Galvan PA Work Phone: [facility] KirkwoodJzsabcbulr48-90-1381 08:52-0400Systolic blood mm[Hg]Nadine Galvan PA Work Phone: [facility] KirkwoodZtmqmrubzq14-20-5849 12:05-0400Body mass index (BMI) [Ratio]26.93 kg/e0Lgxgq Blake DO Work Phone: [facility] KirkwoodWofiegjhwu60-49-5779 12:05-0400Body fegljv11.95 kgCorey Blake DO Work Phone: [facility] KirkwoodJtrzpzcovb63-01-1629 12:05-0400Diastolic blood ydnitsde44 mm[Hg]José Blake DO Work Phone: [facility] KirkwoodDyskkrrepq04-12-8271 12:05-0400Systolic blood mm[Hg]José Blake DO Work Phone: [facility] KirkwoodPznxpnausc93-20-6662 14:34-0400Body mass index (BMI) [Ratio]25.65 kg/q1Cewbo Blake DO Work Phone: [facility] KirkwoodIyzohcsbwu90-35-7501 14:34-0400Body hnkufy27.68 kgCoreivonne Jasono DO Work Phone: [facility] KirkwoodSmnstltydj53-77-6617 14:34-0400Diastolic blood icwiknzr06 mm[Hg]Joséivonne Jasono DO Work Phone: [facility] KirkwoodRunxkdgmaz30-11-0509 14:34-0400Systolic blood ygmxzmsv641 mm[Hg]Joséivonne Jasono DO Work Phone: [facility] KirkwoodTlcwefsxpc56-30-4139 14:55-0400Body zazfmt593 cm [facility]04-03-2025 14:55-0400Body mass index (BMI) [Ratio]25.18 kg/m2[facility]04-03-2025 14:55-0400Body mocmzf30.47 kgN[facility]04-03-2025 14:55-0400Diastolic blood mm[Hg][facility]04-03-2025 14:55-0400Systolic blood jqixostp951 mm[Hg][facility]01-07-2025 12:44-0500Body .32 kgMadelenie Bundy MD Work Phone: [facility]woodWvzpuchbnr56-02-9579 12:44-0500Diastolic blood umnqnjjt76 mm[Hg]Madeleine Bundy MD Work Phone: [facility] Aijrlaroas10-82-4579 12:44-0500Systolic blood bjujgwio854 mm[Hg]Madeleine Bundy MD Work Phone: [facility] Wlivegmtmb99-91-2910 15:08-0400Body yipqmp24.22 kgMadeleine Bundy MD Work Phone: [facility] Xzwatimnoh93-87-9000 15:08-0400Diastolic blood luwprycq46 mm[Hg]Madeleine Bundy MD Work Phone: [facility] Etxisyyczf26-79-4172 15:08-0400Systolic blood mm[Hg]Madeleine Bundy MD Work Phone: [facility] Glptlflvaa71-93-6077 07:30-0500Body cmxdus077.75 cmTyrell Stiles Other [employer] Other 01-03-2024 07:30-0500Body mass index (BMI) [Ratio] 25.41 kg/i9NetpgovTyrell Stiles Other [employer] Other 01-03-2024 07:30-0500Body gokmkw55.05 kgMafadi Stiles Other [employer] Other 01-03-2024 07:30-0500Diastolic blood jirzfnnz57 mm[Hg] Tyrell Stiles Other [employer] Other 01-03-2024 07:30-0500Respiratory rate16 /minTyrell Stiles Other [employer] Other 01-03-2024 07:30-9314RzG1% (BldA) [Mass fraction]98 % Tyrell Stiles Other [employer] Other 01-03-2024 07:30-0500Systolic blood neqbbaei888 mm[Hg] Tyrell Stiles Other [employer] Other 10-18-2023 12:30-0400Body viiyoh473.75 cmBrett Mauricios Other [employer] Other 10-18-2023 12:30-0400Body mass index (BMI) [Ratio]25.2 kg/m4Uyslv Kuns Other [employer] Other 10-18-2023 12:30-0400Body .5 kgBreteri Buitrago Other [employer] Other 10-18-2023 12:30-0400Diastolic blood wlxcawzt29 mm[Hg] Lisandro Mauricios Other [employer] Other 10-18-2023 12:30-0400Respiratory rate16 /minBreteri Buitrago Other [employer] Other 10-18-2023 12:30-2917IdS6% (BldA) [Mass fraction]99 % Lisandroteri Buitrago Other [employer] Other 10-18-2023 12:30-0400Systolic blood ugnrnedy264 mm[Hg] Lisandro Kuns Other [employer] Other Encounters Encounter DateEncounter TypeCare ProviderFacilityStart: 03-07-2025 End: 88-84-2119Vjrrwtfaa Result EncounterCorey Blake DO Work Phone: [facility] External Department UnsolicitedStart: 03-07-2025 End: 85-29-4110Hymhxuyyj Result EncounterCorey Blake DO Work Phone: [facility] External Department UnsolicitedStart: 03-05-2025 End: 65-89-6586Zcpcoicmg Result EncounterCorey Blake DO Work Phone: [facility] External Department UnsolicitedStart: 03-05-2025 End: 74-83-0676Huuuinwcn Result EncounterCorey Blake DO Work Phone: [facility] External Department UnsolicitedStart: 03-01-2025 End: 44-21-9247Vnbrcf denissePadmini Galvan PA Work Phone: [facility] Danish OBGYNStart: 03-01-2025 End: 04-89-4288Uclrdo denissePadmini Galvan PA Work Phone: [facility] Danish OBGYNStart: 03-01-2025 End: 32-79-4611Xpglesil flow sheetNadine Galileo PA Work Phone: [facility] Danish OBGYNComment on above:Third trimester ([facility] 40 weeks gestation of ([facility])Start: 03-01-2025 End: 18-29-1971vbblqbdeiuEUS RAMEYNot AvailableStart: 02-22-2025 End: 66-21-7964Dvbjlv denissePadmini Galvan PA Work Phone: [facility] Danish OBGYNStart: 02-22-2025 End: 16-77-9570Sfjcui Hnoey Galvan PA Work Phone: [facility] Danish OBGYNStart: 02-22-2025 End: 14-66-2063Jgeqjnvu flow sheetNadine Galvan PA Work Phone: [facility] Pep OBGYNComment on above:Third trimester ([facility]); 39 weeks gestation of ([facility])Start: 02-22-2025 End: 00-65-3116wjzyqpahejEHH RAMEYNot AvailableStart: 02-15-2025 End: 33-89-0300Uahpejhqg Result EncounterCorey Blake DO Work Phone: [facility] External Department UnsolicitedStart: 02-15-2025 End: 56-80-4939Pqwoaokal Result EncounterCorey Blake DO Work Phone: [facility] External Department UnsolicitedStart: 02-15-2025 End: 70-44-1532Eizlti outpatient visit 15 minutesKera Li NP Work Phone: [facility] Danish OBGYNComment on above:Third trimester ([facility]); 38 weeks gestation of ([facility])Start: 02-15-2025 End: 21-98-0654ilerpnemotTRDTHQHH EBERLYNot AvailableStart: 02-08-2025 End: 05-07-9502Oudpci flowsheetKera Youssefly SAND CASTER Work Phone: [facility] Danish OBGYNStart: 02-08-2025 End: 30-57-6481Xppxjm flowsheetJasonistina Jen SAND CASTER Work Phone: NOIP Danish OBGYNStart: 02-08-2025 End: 30-75-9755Ikgviwduo Result EncounterCorey Blake DO Work Phone: [facility] External Department UnsolicitedStart: 02-08-2025 End: 46-15-2579Evuasszz flow sheetArmindaa Jen SAND CASTER Work Phone: NOAN Pep OBGYNComment on above:Third trimester ([facility]); 37 weeks gestation of ([facility])Start: 02-08-2025 End: 20-96-4872czgtsgquouPPPJLNYJ EBERLYNot AvailableStart: 02-01-2025 End: 29-53-3377Fnptptpjd Result EncounterCorey Blake DO Work Phone: [facility] External Department UnsolicitedStart: 02-01-2025 End: 52-35-8408Cstadfbah Result EncounterCorey Blake DO Work Phone: NOZU External Department UnsolicitedStart: 01-29-2025 End: 45-36-6997Vsyefx flowsheetCorey Blake DO Work Phone: NOAE Danish OBGYNStart: 01-29-2025 End: 74-07-9818Dlklch flowsheetCorey Blake DO Work Phone: NOAJ Danish OBGYNStart: 01-29-2025 End: 03-92-8921Hxdvxqlt flow sheetCorey Blake DO Work Phone: NOPO Pep OBGYNComment on above:Third trimester ([facility]); 36 weeks gestation of ([facility])Start: 01-29-2025 End: 34-25-3203nvjximbexnKDPQR FAZIONot AvailableStart: 01-25-2025 End: 94-64-3081Huccslseu Result EncounterCorey Blake DO Work Phone: NOAP External Department UnsolicitedStart: 01-25-2025 End: 45-91-3318Zcizhrpcs Result EncounterCorey Blake DO Work Phone: NOKH External Department UnsolicitedStart: 01-18-2025 End: 73-49-6404Hvhqjuxxt Result EncounterCorey Blake DO Work Phone: noms External Department UnsolicitedStart: 01-18-2025 End: 70-25-7280Zekwxdvlq Result EncounterCorey Blake DO Work Phone: NOGS External Department UnsolicitedStart: 01-15-2025 End: 52-52-1863Umrjpf Martina Li SAND CASTER Work Phone: [facility] Danish OBGYNStart: 01-15-2025 End: 25-69-9268Rjhetz flowsVeronica Li SAND CASTER Work Phone: [facility] Danish OBGYNStart: 01-15-2025 End: 66-75-7408Hzkhjthe flow sheetKera Li NP Work Phone: [facility] Danish OBGYNComment on above:Third trimester ([facility]); 34 weeks gestation of ([facility])Start: 01-15-2025 End: 26-04-5929gsnejfaekyACMUQXFP EBERLYNot AvailableStart: 01-08-2025 End: 37-90-2283Akdtdnomm Result EncounterCorey Blake DO Work Phone: NODZ External Department UnsolicitedStart: 01-08-2025 End: 13-08-4227Vuwbazehy Result EncounterCorey Blake DO Work Phone: noms External Department UnsolicitedStart: 01-04-2025 End: 07-81-1019Ajeomrggz Result EncounterCorey Blake DO Work Phone: noms External Department UnsolicitedStart: 01-04-2025 End: 40-96-2509Zcgxavcca Result EncounterCorey Blake DO Work Phone: noms External Department UnsolicitedStart: 01-02-2025 End: 24-91-9125Izshcq flowsheetCorey Blake DO Work Phone: [facility] Pep OBGYNStart: 01-02-2025 End: 83-35-3050Zgpefg flowsheetCorey Blake DO Work Phone: [facility] Pep OBGYNStart: 01-02-2025 End: 02-31-1347Xilfgapy flow sheetCorey Blake DO Work Phone: [facility] Pep OBGYNComment on above:Third trimester ([facility]); 32 weeks gestation of ([facility]); ZULMA (amniotic fluid index) borderline lowStart: 01-02-2025 End: 69-15-1571jtxmslzlfoTMQKQ FAZIONot AvailableStart: 12-19-2024 End: 37-02-7500Fabomybw flow sheetNadine DE JESUS Work Phone: [facility] Danish OBGYNComment on above:30 weeks gestation of ([facility]); Third trimester ([facility]); HSV infectionStart: 12-19-2024 End: 88-92-3291fjozmihzpzLSZ Mary Alice AvailableStart: 12-05-2024 End: 10-47-2255Mlogha flowsheetCorey Blake DO Work Phone: [facility] Danish OBGYNStart: 12-05-2024 End: 86-69-6114Zvawme flowsheetCorey Blake DO Work Phone: [facility] Danish OBGYNStart: 12-05-2024 End: 82-67-7337Xdrzsbul flow sheetCorey Blake DO Work Phone: [facility] Danish OBGYNComment on above:Third trimester ([facility]); 28 weeks gestation of ([facility]); HSV infection; size inconsistent with dates ([facility])Start: 12-05-2024 End: 96-99-5967rprluzerjoCPHLG FAZIONot AvailableStart: 11-28-2024 End: 77-84-2563Mjdbrlwmg Result EncounterNadine DE JESUS Work Phone: [facility]S External Department UnsolicitedStart: 11-28-2024 End: 81-37-6116Dmlpqkxrw Result EncounterNadine DE JESUS Work Phone: [facility] External Department UnsolicitedStart: 11-22-2024 End: 93-88-8028Hxuwvoqoq Result EncounterCorey Blake DO Work Phone: [facility] External Department UnsolicitedStart: 11-22-2024 End: 71-44-2273Bedqrgasv Result EncounterCorey Blake DO Work Phone: [facility] External Department UnsolicitedStart: 11-22-2024 End: 42-33-4706Uhocdudw flow sheetNadine DE JESUS Work Phone: [facility] BCP OBComment on above:26 weeks gestation of ([facility]); Second trimester ([facility]); Elevated glucose tolerance testStart: 11-22-2024 End: 28-97-6579yedpwxzmqeURQ RAMEYNot AvailableStart: 10-26-2024 End: 02-94-1068gianqoeorbXZNIS FAZIONot AvailableStart: 10-26-2024 End: 54-04-1705Ccznurzf flow sheetCorey Blake DO Work Phone: NOMS BCP OBComment on above:Second trimester ([facility]); 22 weeks gestation of ([facility]); Diabetes mellitus screeningStart: 10-26-2024 End: 09-89-4730rpipefwkzoCRVYH FAZIONot AvailableStart: 09-28-2024 End: 42-97-8092ocbenjdwawZMW RAMEYNot AvailableStart: 08-29-2024 End: 46-64-1269Cwczbtoe flow sheetCorey Blake DO Work Phone: [facility]OM[facility] BCP OBComment on above:Second trimester ; 14 weeks gestation of pregnancyStart: 08-29-2024 End: 70-41-4625Giaykc flowsheetCorey Blake DO Work Phone: [facility] BCP OBStart: 08-29-2024 End: 71-29-4053Peallr flowsheetCorey Blake DO Work Phone: [facility] BCP OBStart: 08-29-2024 End: 31-94-2232Rxlwrcmio Result EncounterCorey Blake DO Work Phone: [facility]OMS External Department UnsolicitedStart: 08-29-2024 End: 11-02-6394tyhqshbfooFJYRI FAZIONot AvailableStart: 08-10-2024 End: 06-09-1515Fypluq outpatient visit 5 minutesNoms Bcp Ob Blake NurseNOMS BCP OBComment on above:GA: 88i3xFnbqe: 08-10-2024 End: 15-19-6587glfkcwrrxzSAROF FAZIONot AvailableStart: 07-11-2024 End: 17-12-3659Tnqkfbhb flow sheetNoms Sws Ob NurseNOMS SWS OBComment on above: GA: 0s1yXvuve: 07-11-2024 End: 47-08-9392sbkqynleolLWITE Patriciot AvailableStart: 05-16-2024 End: 14-30-8645Nkpfbz outpatient visit 15 minutesMadeleine Bundy MD Work Phone: noms [facility] OBComment on above:Hormone imbalance (Primary Dx); Amenorrhea; Missed menses; Family planning; Thyroid disorder screenStart: 05-16-2024 End: 88-74-5825kbdvpcqseoLPQJKP P JONESNot AvailableStart: 03-30-2024 End: 93-77-7699ddmibuweliItjlw KlaegeFacility:[facility]Start: 02-08-2024 End: 65-32-9262Cyrjeqv encounter statusMadeleine Bundy MD Work Phone: noms HealthcareStart: 02-08-2024 End: 25-75-9321Kzjwcqti preventive med est patient 18-39 yrsMadeleine Bundy MD Work Phone: noms [facility] OBComment on above:Amenorrhea (Primary Dx); Screening for malignant neoplasm of cervix; Encounter for gynecological examination without abnormal finding; Encounter for surveillance of vaginal ring hormonal contraceptive device; Missed mensesStart: 01-24-2024 End: 11-45-5176vbvjlasaeaDyzeibyf:[facility] HospitalStart: 05-12-2023 End: 54-39-9564ilrtinsnrsEiedxgy [place] Other [place] Other Start: 03-53-0034Egebis outpatient visit 15 minutes Tyrell SanchesG [facility] [place]Start: 03-02-2023 End: 30-51-9761uxctxfudzuViafp KunsFacility:[facility] Start: 03-02-2023 End: 20-33-2087gtcrufnlerBL Brett Kuns Work Phone: [facility] Work Phone: Start: 03-02-2023 End: 32-52-6211Rfasteu encounter procedureDO Lisandro Buitrago Work Phone: [facility] CtrStart: 02-24-2023 End: 47-34-5164kkhdhjevarIvkfh Kuns Other [employer] Other Start: 13-92-3659Snczgkszw for general adult medical examination without abnormal findingsNavos Health [facility]Cho[facility] [place] Start: 46-92-9270Aazfyl outpatient new 30 minutesBre MauricioCho[facility] [place]Start: 07-28-2021 End: 02-19-2943ubazambuivIF JANES GARCIAFacility:H1 Procedures DateProcedureProcedure DetailPerforming ClinicianStart: 40-48-7160OIV CBC WITH AUTO DIFFCorey Blake DO Work Phone: Start: 58-79-9814IHEC CBC WITH PLATELET NO DIFFERENTIALCorey Blake DO Work Phone: Start: 68-67-4492Impbr dip stick/tablet rgnt non-auto w/o micrscpAmy Galileo PA Work Phone: Start: 37-35-8594Mcggz dip stick/tablet rgnt non-auto w/o micrscpAmy Galileo PA Work Phone: Start: 24-28-8094Xjrcm dip stick/tablet rgnt non-auto w/o micrscpKristina Jen SAND CASTER Work Phone: Start: 63-85-2453NL OB BPP W NON-STRESSCorey Blake DO Work Phone: Start: 99-96-9198BE OB BPP W NON-STRESSCorey Blake DO Work Phone: Start: 42-30-9339Kuaup dip stick/tablet rgnt non-auto w/o micrscpKristina Jen [place] Work Phone: Start: 69-23-2265WL OB BPP W NON-STRESSCorey Blake DO Work Phone: Start: 17-67-6966Emyyd dip stick/tablet rgnt non-auto w/o micrscpCorey Blake DO Work Phone: Start: 66-89-0688VB OB BPP W NON-STRESSCorey Blake DO Work Phone: Start: 26-67-8856RR OB BPP W NON-STRESSCorey Blake DO Work Phone: Start: 46-12-0063Vrabz dip stick/tablet rgnt non-auto w/o micrscpKristina Jen [place] Work Phone: Start: 33-17-7314ZS OB BPP W NON-STRESSCorey Blake DO Work Phone: Start: 16-09-0876ZQ OB BPP W NON-STRESSCorey Blake DO Work Phone: Start: 01-86-7315Vfdzq dip stick/tablet rgnt non-auto w/o micrscpCorey Blake DO Work Phone: Start: 34-67-1683Dzabu dip stick/tablet rgnt non-auto w/o micrscpAmy Galileo DE JESUS Work Phone: Start: 10-88-2202NSPTUPX TOLERANCE 3 HOURAmy Galileo DE JESUS Work Phone: Start: 83-62-9938Itekc dip stick/tablet rgnt non-auto w/o micrscpAmy Galileo DE JESUS Work Phone: Start: 52-17-1763YHQ CBC WITH AUTO DIFFCorey Blake DO Work Phone: Start: 29-33-6253Xgeci dip stick/tablet rgnt non-auto w/o micrscpCorey Blake DO Work Phone: Start: 18-12-6908Smrcg dip stick/tablet rgnt non-auto w/o micrscpCorey Blake DO Work Phone: Start: 72-77-7402VQI TESTCorey Fantom Work Phone: Start: 90-06-6468Mrrom dip stick/tablet rgnt non-auto w/o micrscpCorey [employer] DO Work Phone: Start: 75-98-0706Cpwmu test visual color cmprsn Ritesh Bundy MD Work Phone: start: 51-95-3524Moaj cerv/vag auto thin layer prep mnl screenCorey Fantom Work Phone: Start: 69-85-1878Okmon chest X-rayDO Lisandro Buitrago Work Phone: Start: 48-02-8551Kurmw X-ray of left shoulderDO Lisandro [employer]E [employer] Work Phone: Plan of Treatment DateCare ActivityDetailAuthorStart: 03-01-2025 End: 38-35-1131Kavpqox encounter procedureNOMS Pep OBGYNComment on above: ArrivedStart: 02-22-2025 End: 57-06-7588Yjbiheu encounter procedureNOMS Danish OBGYNComment on above: ArrivedStart: 02-15-2025 End: 30-74-4276Eklidjf encounter syjtecopp50/09/2025 8:50 AM EDT Routine [facility] [address] [place], [id number] Kera Li, LIBBY [address] [place] [address] [facility] Pep OBGYNStart: 02-08-2025 End: 46-15-9230Esfkind encounter procedureNOMS Danish OBGYNComment on above: ArrivedStart: 01-29-2025 End: 21-94-8760KRKNJTA, GROUP B STREP WITH SUSCEPTIBLITYCULTURE, GROUP B STREP WITH SUSCEPTIBLITY Lab Routine Third trimester ([facility]) Expected: 01/29/2025, Expires: 01/29/2026[facility] Work Phone: comment on above:Expected: 01/29/2025, Expires: 01/29/2026Start: 01-29-2025 End: 04-21-5663Jodwnkk encounter procedureNOMS Danish OBGYNComment on above: Third trimester ([facility])Start: 01-16-2025 End: 71-73-9506Htdpbvz encounter ilxpqctyh68/09/2025 8:50 AM EDT Routine [facility] [address] [place], [id number] Nadine Galvan PA [address] [place] [address] [facility] Pep OBGYNStart: 01-15-2025 End: 79-87-6188Snxembe encounter procedureNOMS Pep OBGYNComment on above: ArrivedStart: 10-38-1240KUOLE-19 Vaccine ( season)COVID-19 Vaccine ( season)[facility] HealthcareStart: 93-94-2393Dylxoxpyp vaccinationNOMD HealthcareStart: 01-02-2025 End: 60-57-1671YK biophysical profile w non stress testUS biophysical profile w non stress test Imaging Routine ZULMA (amniotic fluid index) borderline low Expected: 01/02/2025 (Approximate), Expires: 07/05/2025[facility] Work Phone: comment on above:Expected: 01/02/2025 (Approximate), Expires: 07/05/2025Start: 01-02-2025 End: 80-20-6886Moaqzqn encounter procedureNOMS Pep OBGYNComment on above: ArrivedStart: 12-19-2024 End: 06-30-2238Akphbeq encounter jsnhzkwfa79/12/2025 8:50 AM EDT Routine [facility] [address] [place], [id number] Nadine Galvan PA [address] [place], [place] [id number] [facility] Danish OBGYNStart: 12-19-2024 End: 62-73-5724Hpaoileavqja / ancillary services buavsysydr86/12/2025 8:00 AM EDT Ancillary Procedure [facility] [address] [place] [address] [facility] Pep OBGYNStart: 12-05-2024 End: 62-56-7317EX for pregnancyUS OB follow up transabdominal approach Imaging Routine size inconsistent with dates ([facility]) Expected: 12/05/2024, Expires: 04/07/2025[facility] Work Phone: comment on above:Expected: 12/05/2024, Expires: 04/07/2025Start: 12-05-2024 End: 24-48-7764Jvdkxzo encounter procedureNOMS [facility] OBComment on above:Arrived Start: 11-22-2024 End: 64-46-6369Tixupruqqab of glucose 3 hours after glucose challenge for glucose tolerance testGlucose tolerance, 3 hours Lab Routine Elevated glucose tolerance test Expected: 11/22/2024 (Approximate), Expires: 11/22/2025[facility] Work Phone: comment on above:Expected: 11/22/2024 (Approximate), Expires: 11/22/2025Start: 11-22-2024 End: 21-73-1784Pibjemr encounter levxksvtw12/16/2025 8:50 AM EDT Routine [facility] [address] [place] [address] Nadine Galvan PA [address] [place], [place] [id number] [facility] BCP OBStart: 10-26-2024 End: 47-79-9103GYO panel - Blood by Automated countCBC Lab Routine Diabetes mellitus screening Expected: 10/26/2024 (Approximate), Expires: 10/26/2025[facility] Work Phone: comment on above:Expected: 10/26/2024 (Approximate), Expires: 10/26/2025Start: 10-26-2024 End: 66-62-3049Zofejigxwll of glucose 1 hour after glucose challenge for glucose tolerance testGlucose tolerance, 1 hour Lab Routine Diabetes mellitus screening Expected: 10/26/2024 (Approximate), Expires: 10/26/2025[facility] HealthcareComment on above:Expected: 10/26/2024 (Approximate), Expires: 10/26/2025Start: 09-27-2024 End: 00-69-9764Vjwybnr encounter /21/2025 3:30 PM EDT Routine [facility] [address] [place] [phone] Nadine Galvan PA [address] [place] [address] [facility] OBStart: 08-29-2024 End: 60-01-2586Mhuvmmk encounter procedureNOATASCADERO STATE [facility] OBComment on above:Arrived Start: 07-27-2024 End: 35-52-8701zflybuiwun68/20/2025 10:30 AM EDT Initial [facility] [address] [place] [phone] Madeleine Bundy MD [address] [place] [address] [facility] OBStart: 07-17-2024 End: 68-47-2434Jimnoix encounter kuquqmojp64/10/2025 12:30 PM EDT Office Visit [facility] [address] [place] [phone] Madeleine Bundy MD [address] [place] [address] [facility] OBStart: 07-17-2024 End: 87-75-1734Wwdrbmznqytn / ancillary services tvbedtlbvo60/10/2025 8:30 AM EDT Ancillary Procedure [facility] [address] [place] [address] [facility] OBStart: 07-11-2024 End: 90-05-6590Zlhwqfmw identified in Urine by CultureUrine culture Microbiology Routine Encounter for supervision of normal first in first trimester Expected: 07/11/2024, Expires: 07/11/2025[facility] HealthcareComment on above: Expected: 07/11/2024, Expires: 07/11/2025Start: 07-11-2024 End: 36-54-8947FNKRDS CARRIER SCREEN;14 GENESBEACON CARRIER SCREEN;14 GENES Lab Routine Screening for genetic disease carrier status Expected: 07/11/2024 (Approximate), Expires: 07/11/2025[facility] HealthcareComment on above:Expected: 07/11/2024 (Approximate), Expires: 07/11/2025Start: 07-11-2024 End: 83-47-7435Txarp type and Indirect antibody screen panel - BloodType and screen Lab Routine Encounter for supervision of normal first in first trimester Expected: 07/11/2024, Expires: 07/11/2025[facility] HealthcareComment on above:Expected: 07/11/2024, Expires: 07/11/2025Start: 07-11-2024 End: 14-55-2471TGB W Auto Differential panel - BloodCBC and differential Lab Routine Encounter for supervision of normal first in first trimester Expected: 07/11/2024, Expires: 07/11/2025[facility] HealthcareComment on above: Expected: 07/11/2024, Expires: 07/11/2025Start: 07-11-2024 End: 59-29-3561JYJE SCREEN 17 W/CONF, URDRUG SCREEN 17 W/CONF, UR Lab Routine Encounter for drug screening Expected: 07/11/2024, Expires: 07/11/2025[facility] HealthcareComment on above:Expected: 07/11/2024, Expires: 07/11/2025Start: 07-11-2024 End: 16-67-2220Xziflxrqb B virus surface Ag [Presence] in Serum or Plasma by ImmunoassayHepatitis B surface antigen Lab Routine Encounter for supervision of normal first in first trimester Expected: 07/11/2024, Expires: 07/11/2025[facility]:Expected: 07/11/2024, Expires: 07/11/2025Start: 07-11-2024 End: 24-30-3504Ahpsfqcoj C virus Ab [Presence] in Serum or Plasma by Immunoassay Hepatitis C antibody Lab Routine Encounter for supervision of normal first in first trimester Expected: 07/11/2024, Expires: 07/11/2025[facility]:Expected: 07/11/2024, Expires: 07/11/2025Start: 07-11-2024 End: 63-43-0991UBA-1/HIV-2 antigen/antibody combination immunoassayHIV-1 and HIV-2 antibodies Lab Routine Encounter for supervision of normal first in firsttrimester Expected: 07/11/2024, Expires: 07/11/2025[facility] Comment on above:Expected: 07/11/2024, Expires: 07/11/2025Start: 07-11-2024 End: 45-43-4781GpyecqhY36 PLUS Core+VPSPzmatkzC92 PLUS Core+SCA Lab Routine Encounter for screening for chromosomal anomalies Expected: 07/11/2024 (Approximate), Expires: 07/11/2025[facility]:Expected: 07/11/2024 (Approximate), Expires: 07/11/2025Start: 07-11-2024 End: 31-54-2554Yqrxni Ab [Presence] in Serum by RPRRPR Lab Routine Encounter for supervision of normal first in first trimester Expected: 07/11/2024, Expires: 07/11/2025[facility]Comment [facility]:Expected: 07/11/2024, Expires: 07/11/2025Start: 07-11-2024 End: 03-36-8630Mqjgjjb antibody, IgGRubella antibody, IgG Lab Routine Encounter for supervision of normal first in first trimester Expected: 07/11/2024, Expires: 07/11/2025[facility] HealthcareComment on above:Expected: 07/11/2024, Expires: 07/11/2025Start: 07-11-2024 End: 83-98-1745Moksqtvjhz complete panel - UrineUrinalysis with microscopic Lab Routine Encounter for supervision of normal first in first trimester Expected: 07/11/2024, Expires: 07/11/2025[facility] Work Phone: comment on above:Expected: 07/11/2024, Expires: 07/11/2025Start: 05-16-2024 End: 28-22-5722OppkgmmaDtialqbr Lab Routine Hormone imbalance Expected: 05/16/2024, Expires: 05/16/2025[facility] HealthcareComment on above:Expected: 05/16/2024, Expires: 05/16/2025Start: 05-16-2024 End: 19-59-5527HKIC-sulfateDHEA-sulfate Lab Routine Hormone imbalance Expected: 05/16/2024, Expires: 05/16/2025[facility] HealthcareComment on above:Expected: 05/16/2024, Expires: 05/16/2025Start: 05-16-2024 End: 41-24-7135QgzfxqdfyWsxvlxcyy Lab Routine Hormone imbalance Expected: 05/16/2024, Expires: 05/16/2025[facility] HealthcareComment on above:Expected: 05/16/2024, Expires: 05/16/2025Start: 05-16-2024 End: 06-60-1550DgmkwbqNuihxru Lab Routine Hormone imbalance Expected: 05/16/2024, Expires: 05/16/2025[facility] HealthcareComment on above:Expected: 05/16/2024, Expires: 05/16/2025Start: 05-16-2024 End: 01-15-9058Bjddeeqj stimulating hormoneFollicle stimulating hormone Lab Routine Hormone imbalance Thyroid disorder screen Expected: 05/16/2024, Expires: 05/16/2025[facility] HealthcareComment on above:Expected: 05/16/2024, Expires: 05/16/2025Start: 05-16-2024 End: 29-74-3934Idzadtn, fastingInsulin, fasting Lab Routine Amenorrhea Missed menses Hormone imbalance Expected: 05/16/2024, Expires: 05/16/2025[facility] HealthcareComment on above:Expected: 05/16/2024, Expires: 05/16/2025Start: 05-16-2024 End: 98-26-5490Pbximkqzqhk hormoneLuteinizing hormone Lab Routine Hormone imbalance Thyroid disorder screen Expected: 05/16/2024, Expires: 05/16/2025[facility] HealthcareComment on above:Expected: 05/16/2024, Expires: 05/16/2025Start: 05-16-2024 End: 99-61-4614FsivdqvoslubVbwbqfamtshw Lab Routine Hormone imbalance Expected: 05/16/2024, Expires: 05/16/2025[facility]:Expected: 05/16/2024, Expires: 05/16/2025Start: 05-16-2024 End: 40-23-0702Gqx hormone binding globulinSex hormone binding globulin Lab Routine Hormone imbalance Expected: 05/16/2024, Expires: 05/16/2025[facility]:Expected: 05/16/2024, Expires: 05/16/2025Start: 05-16-2024 End: 84-88-2048Srugwcrpeqmn, free, totalTestosterone, free, total Lab Routine Hormone imbalance Expected: 05/16/2024, Expires: 05/16/2025[facility] Comment on above:Expected: 05/16/2024, Expires: 05/16/2025Start: 05-16-2024 End: 17-32-7502Oitfudugnyt [Units/volume] in Serum or PlasmaTSH Lab Routine Hormone imbalance Thyroid disorder screen Expected: 05/16/2024, Expires: 05/16/2025[facility] Work Phone: comment on above:Expected: 05/16/2024, Expires: 05/16/2025Start: 05-16-2024 End: 73-60-7610Izeksic D 1,25 dihydroxyVitamin D 1,25 dihydroxy Lab Routine Hormone imbalance Expected: 05/16/2024, Expires: 05/16/2025[facility] Comment on above:Expected: 05/16/2024, Expires: 05/16/2025Start: 05-16-2024 End: 41-28-4649Ipxxbun encounter flxzecdzf09/07/2025 12:30 PM EST Office Visit [facility] [address] [place] [address] Madeleine Bundy MD [address] [place] [address] [facility]WS OBStart: 02-08-2024 End: 28-24-8118Xefuylth stimulating hormoneFollicle stimulating hormone Lab Routine Amenorrhea Expected: 02/08/2024 (Approximate), Expires: 02/07/2025[facility] HealthcareComment on above:Expected: 02/08/2024 (Approximate), Expires: 02/07/2025Start: 68-41-9718Cfmwizaxx vaccinationInfluenza Vaccine (#1)[facility] HealthcareStart: 98-57-4909LYA Vaccines (1 - 3-dose SCDM series)HPV Vaccines (1 - 3-dose SCDM series)[facility] HealthcareStart: 10-28-1656Oqebxbugg B Vaccines (1 of 3 - 19+ 3-dose series)Hepatitis B Vaccines (1 of 3 - 19+ 3-dose series)[facility] HealthcareStart: 71-25-7700Qjrgwrf of varicella vaccinationVaricella Vaccines (1 of 2 - 13+ 2-dose series)[facility] HealthcareStart: 37-20-9148YQpA/Tdap/Td Vaccines (1 - Tdap)DTaP/Tdap/Td Vaccines (1 - Tdap)[facility] HealthcareStart: 66-53-6270EBC Vaccines (1 of 1 - Standard series)MMR Vaccines (1 of 1 - Standard series)[facility] HealthcarehCG, qualitativehCG, qualitative Lab Routine Amenorrhea Ordered: 02/08/2024[facility] HealthcareComment on above:Ordered: 02/08/2024Hemoglobin A1c/Hemoglobin.total in BloodHemoglobin A1c Lab Routine with uncertain dates, antepartum Ordered: 08/10/2024[facility] Work Phone: comment on above:Ordered: 08/10/2024Luteinizing hormoneLuteinizing hormone Lab Routine Amenorrhea Ordered: 02/08/2024[facility] HealthcareComment on above:Ordered: 02/08/2024rogesteroneProgesterone Lab Routine Amenorrhea Ordered: 02/08/2024[facility] HealthcareComment on above:Ordered: 02/08/2024SENDOUT TEST MISCELLANEOUS LABCORPSENDOUT TEST MISCELLANEOUS [facility] Lab Routine Screening for malignant neoplasm of cervix Encounterfor gynecological examination without abnormal finding Ordered: 02/08/2024[facility] Work Phone: comment on above:Ordered: 02/08/2024Testosterone, free, totalTestosterone, free, total Lab Routine Amenorrhea Ordered: 02/08/2024 [facility] HealthcareComment on above:Ordered: 02/08/2024 Immunizations Immunization DateImmunizationNotesCare EbdjlgazAxbfpoos00-14-4518TATTR-20 Vaccine Moderna - Documentation Purposes OnlyLisandro Buitrago Other [employer] Other [id number] Vaccine Moderna - Documentation Purposes OnlySnowRed Loop Media Other [employer] Other Payers DatePayer CategoryPayerPolicy [id number] [id number] Health [id number] [id number] 2.0.1.90220[id number] 2.16840.1.993362.3.579.2.593 [id number] 2.16.840.1.801646.3.579.2.844198-61-2800Gteubwi [id number] 2.16840.1.261958.3.57[id number] 2.16840.1.955145.3.57[id number] 2.16840.1.031539.3.579.2.587102-80-1170Mqrztdp00237534 2.16840.1.941715.3.579.2.870284-80-7261Hniotlk38299296 2.0.1.502125.3.579.2.616008-50-9374Biclwff61780510 2.840.1.554034.3.579.2.880390-58-5008Ltzjkhy45671978 2.0.1.094783.3.579.2.367073-39-9782Bxsmkpz93582951 2.0.1.957909.3.579.2.123021-54-7266Ppuguum97089105 2..1.906500.3.579.2.384721-55-4389Ngyeabn90596788 2.0.1.616175.3.579.2.349534-09-8221Dukjfaq71247547 2.0.1.263097.3.579.2.331417-51-8146Secouze54475642 2.0.1.910921.3.579.2.119508-88-8593Mdhgvbn5625117 2.840.1.186140.3.579.2.637501-26-2104Gwprhte9033384 2.16840.1.976996.3.579.2.340814-60-6476Jfpfvya8492869 2.840.1.466154.3.579.2.590137-88-6617Dcypwmj9605098 2.16.840.1.287597.3.579.2.359378-52-7795Ytonyzk0081001 2.16.840.1.749591.3.579.2.913941-54-8750Tpquhez0671556 2..0.1.445564.3.579.2.408419-34-5512Toshmse51525219 2.16.840.1.757762.3.579.2.47001-81-2923Mqvc-xsdCsktmlbGPD 13b7r0q7-f716-8193-k83u-s024m420pm6iTlcucdk07582222 2.16840.1.597893.3.579.2.531 Social History DateTypeDetailFacilityStart: 02-08-2024 End: 50-41-0691Rgb Assigned At [facility] Other Start: 79-05-4366Cx[facility]: 69-43-2566Mzniqtm smoking status NHISNever smoked tobaccoNOMS HealthcareStart: 20-94-5410Uitcbhu use and exposureSmokeless tobacco non-userNOMS HealthcareStart: 34-66-9998Laexhgzgh beverage intakeCurrent drinker of alcohol (finding)NOMS HealthcareStart: 02-08-2024 End: 65-87-0712Hainseh of Social functionNOMS HealthcareHow often to you have a drink containing alcohol?Monthly or lessNOMS HealthcareHow many standard drinks containing alcohol do you have on a typical day?1 or 2NOMS HealthcareHow often do you have 6 or more drinks on 1 occasion?Less than monthlyNOMS Healthcare Start: 11-10-7737Fye [facility] at [facility] hospitalNot on fileNOMS HealthcareStart: 05-16-2024 End: 33-30-1666Sjafrycio beverage intakeEx-drinker (finding)[facility] Start: 37-12-5031Uhbtdlt Commentcaffeine intake: rareNOMS HealthcareStart: 75-62-4119LrevcolwuWHIF HealthcareStart: 00-56-0530GlxAnhwnyYPPY Healthcare Goals DatePatient GoalDesired Activity/StatePersonal health goal Clinical Notes 02-24-2023 to 03-01-2025 Note Date & IysxWwsnHhauqjxb56-86-6693 History of Present illness Narrative* LIZA Zaldivar - 03/01/2025 8:40 AM EDT [...] nursing note reviewed. Exam conducted with a specialist icu present. Vitals: Estimated body mass index is 31.71 kg/m as calculated from the following: Height as of 25: 5' 3 . Weight as of this encounter: 179 lb. BP: 130/78 Patient's last menstrual period was 05/09/2024 (exact date). Assessment/Plan ICD-10-CM 1. Third trimester ([facility]) Z34.93 POCT urinalysis dipstick manually resulted 2. 40 weeks gestation of ([facility]) Z3A.40 Return OB: Patient presents today [...] behalf of: LIZA Zaldivar documented in this encounterSaint [facility] Hospital of KirkwoodLdhftvuhcm06-34-5487 History of Present illness Narrative* LIZA Zaldivar [...] PLAN ICD-10-CM 1. Third trimester ([facility]) Z34.93 2. 39 weeks gestation of ([facility]) Z3A.39 POCT urinalysis dipstick manually resulted [...] syndrome Sister Breast cancer Maternal Grandmother Maricarmen Swineivonne Hypothyroidism Maternal Grandfather Kwan Swiney Thyroid disease Maternal Grandfather Kwan Swiney Breast cancer Paternal Grandmother Gilda Walp Lung cancer Paternal Grandmother Broderickn Walp Colon cancer Paternal Grandfather Skyler Walp Cancer Paternal Grandfather Skyler Felixp [4] Past Surgical History: Procedure Laterality Date WISDOM TOOTH EXTRACTION documented in this encounterSaint Joseph Hospital of KirkwoodTqfkghctnf37-33-2975 History of Present illness Narrative* Kera Li [...] nursing note reviewed. Exam conducted with a specialist icu present. Vitals: Estimated body mass index is 31.53 kg/m as calculated from the following: Height as of 08/10/24: 5' 3 . Weight as of this encounter: 178 lb. BP: 132/86 Patient's last menstrual period was 05/09/2024 (exact date). ASSESSMENT & PLAN ICD-10-CM 1. Third trimester ([facility]) Z34.93 POCT urinalysis dipstick manually resulted 2. 38 weeks gestation of ([facility]) Z3A.38 Return OB: Patient presents today [...] of: Kera Li NP documented in this encounterSaint Joseph Hospital of KirkwoodPgmsyldamf72-99-2412 History of Present illness Narrative* Kera Li [...] nursing note reviewed. Exam conducted with a specialist icu present. Vitals: Estimated body mass index is 29.98 kg/m as calculated from the following: Height as of 08/10/24: 5' 3 . Weight as of 01/29/25: 169 lb 4 oz. BP: Patient's last menstrual period was 05/09/2024 (exact date). ASSESSMENT & PLAN ICD-10-CM 1. Third trimester ([facility]) Z34.93 POCT urinalysis dipstick manually resulted 2. 37 weeks gestation of ([facility]) Z3A.37 Return OB: Patient presents today [...] of: Kera Li NP documented in this encounterSaint Joseph Hospital of KirkwoodUzupnpnsyj59-93-6241 History of Present illness Narrative* Kera Li [...] nursing note reviewed. Exam conducted with a specialist icu present. Vitals: Estimated body mass index is 29.98 kg/m as calculated from the following: Height as of 08/10/24: 5' 3 . Weight as of this encounter: 169 lb 4 oz. BP: 128/86 Patient's last menstrual period was 05/09/2024 (exact date). ASSESSMENT & PLAN ICD-10-CM 1. Third trimester ([facility]) Z34.93 POCT urinalysis dipstick manually resulted CULTURE, GROUP B STREP WITH SUSCEPTIBLITY CULTURE, GROUP B STREP WITH SUSCEPTIBLITY 2. 36 weeks gestation of ([facility]) Z3A.36 Return OB: Patient presents today [...] of: José Lozano DO documented in this encounterSaint Joseph Hospital of KirkwoodYcikarxiiu60-95-8955 History of Present illness Narrative* Teresa Ambriz [...] nursing note reviewed. Exam conducted with a specialist icu present. Vitals: Estimated body mass index is 29.85 kg/m as calculated from the following: Height as of 08/10/24: 5' 3 . Weight as of this encounter: 168 lb 8 oz. BP: 132/72 Patient's last menstrual period was 05/09/2024 (exact date). ASSESSMENT & PLAN ICD-10-CM 1. Third trimester ([facility]) Z34.93 POCT urinalysis dipstick manually resulted 2. 34 weeks gestation of ([facility]) Z3A.34 Patient presents today for [...] of: Kera Li NP documented in this encounterSaint Joseph Hospital of KirkwoodFfhfwqpbco94-54-3266 History of Present illness Narrative* Zita Borrego [...] nursing note reviewed. Exam conducted with a specialist icu present. Vitals: Estimated body mass index is 28.96 kg/m as calculated from the following: Height as of 08/10/24: 5' 3 . Weight as of this encounter: 163 lb 8 oz. BP: 120/76 Patient's last menstrual period was 05/09/2024 (exact date). ASSESSMENT & PLAN ICD-10-CM 1. Third trimester ([facility]) Z34.93 POCT urinalysis dipstick manually resulted 2. 32 weeks gestation of ([facility]) Z3A.32 Return OB: Patient presents [...] of: José Lozano DO documented in this encounterSaint Joseph Hospital of KirkwoodNnqwbooxyd10-27-3189 History of Present illness Narrative* LIZA Zaldivar [...] PLAN ICD-10-CM 1. 30 weeks gestation of ([facility]) Z3A.30 POCT urinalysis dipstick manually resulted 2. Third trimester ([facility]) Z34.93 POCT urinalysis dipstick manually resulted [...] behalf of: LIZA Zaldivar documented in this encounterSaint Joseph Hospital of KirkwoodNoggdmpmop51-22-1387 History of Present illness Narrative* Zita Borrego, [employer] - 12/05/2024 9:00 AM EDT Reason for [...] nursing note reviewed. Exam conducted with a specialist icu present. Vitals: Estimated body mass index is 28.52 kg/m as calculated from the following: Height as of 08/10/24: 5' 3 . Weight as of this encounter: 161 lb. BP: 120/76 Patient's last menstrual period was 05/09/2024 (exact date). ASSESSMENT & PLAN ICD-10-CM 1. Third trimester ([facility]) Z34.93 CANCELED: POCT urinalysis dipstick manually resulted 2. 28 weeks gestation of ([facility]) Z3A.28 3. 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 size inconsistent with dates ([facility]) O26.849 US OB follow up transabdominal [...] of: José Lozano DO documented in this encounterSaint Joseph Hospital of KirkwoodFvrnlhvzge07-72-7181 History of Present illness Narrative* LIZA Zaldivar [...] PLAN ICD-10-CM 1. 26 weeks gestation of ([facility]) Z3A.26 POCT urinalysis dipstick manually resulted 2. Second trimester ([facility]) Z34.92 POCT urinalysis dipstick manually resulted [...] behalf of: LIZA Zaldivar documented in this encounterSaint Joseph Hospital of KirkwoodKapkawwyft21-69-6851 History of Present illness Narrative* Azeb Gonzalez [...] ASSESSMENT & PLAN ICD-10-CM 1. Second trimester ([facility]) Z34.92 POCT urinalysis dipstick manually resulted 2. 22 weeks gestation of ([facility]) Z3A.22 3. Diabetes mellitus screening Z13.1 [...] of: José Lozano DO documented in this encounterSaint Joseph Hospital of KirkwoodTmxopsyruj32-44-5111 History of Present illness Narrative* Zita Borrego [...] nursing note reviewed. Exam conducted with a specialist icu present. Vitals: Estimated body mass index is [...] or undercooked meat, and stay away from [facility]. Patient has been consulted regarding any further do's and don'tsof . Patient voiced understanding and all questions and concerns were answered. Orders Placed This Encounter Procedures POCT urinalysis dipstick manually resulted Follow Up: Patient is to return in 4 weeks for routine OB appointment. Documented by Zita Borrego LPN on behalf of: José Lozano DO documented in this encounterSaint Joseph Hospital of KirkwoodOlmbkawkro77-42-0496 History of Present illness Narrative* Domenica Jacinto [...] Mother Esmer Walp Thyroid disease Mother Esmer Felixp Polycystic ovary [...] or undercooked meat, and stay away from [facility]. Patient has also been advised to not change litter boxes and eat 6 small meals a day. Patient has been consulted regarding the do's and don'ts ofpregnancy. Patient was given labs and all questions and concerns were answered. Patient was given Yulan labs to be completed with Hgb A1C. Follow Up: Patient is to return in 4 weeks for routine OB appointment. Follow Up: Patient is to have labs drawn at directed and return to office for initial OB appointment with provider. Patient may call office as needed with any concerns or questions. Nurse Visit Completed by: Domenica Jacinto LPN documented in this encounterSaint Joseph Hospital of KirkwoodCwaxkreasm82-85-5842 History of Present illness Narrative* Jennifer Ayala [...] RN 07/11/2024 10:03 AM documented in this encounterSaint Joseph Hospital of KirkwoodGcqlbypstl98-10-8419 History of Present illness Narrative* Madeleine Bundy MD - 05/16/2024 12:30 PM EST Images from the original note were not included. Madeleine Bundy MD Obstetrics and Gynecology Patient: Alondra Beaver : 1995 (28 y.o.) Exam Date: 05/16/2024 Reason for Visit - Chief Complaint Patient presents with Follow-up Follow up for Amenorrhea, missed menses, and family planning. Stopped EluRyng in 10/2023. CERTIFIED MEDICAL ASST 04/03 LMP 05/09 Ovulatory 04/30 Patient did [...] Behavior: Behavior normal. Exam conducted with a specialist icu present. Assessment/Plan ICD-10-CM 1. Amenorrhea N91.2 2. [...] by Madeleine Bundy MD documented in this encounterSaint Joseph Hospital of KirkwoodItecwbnjwt58-50-4027 Instructions* Patient Instructions* Madeleine Bundy MD - [...] a routine infertility test. documented in this encounterSaint Joseph Hospital of KirkwoodHwfuckedcp18-67-5646 History of Present illness Narrative* Madeleine Bundy [...] by Madeleine Bundy MD documented in this encounterSaint Joseph Hospital of KirkwoodEvlxfkmnaa14-72-3562 Evaluation note* Encounter Date Diagnosis Assessment Notes [...] and trigger point injections can be done. [facility] Other 10-18-2023 Evaluation note* Encounter Date Diagnosis Assessment Notes Treatment Notes Treatment Clinical Notes Feb, Encounter to establish care (ICD -10 - Z76.89) Patient appears to be in good health upon examination. She is here to establish care for annual physcial for her employment. 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 Feb,Wellness examination (ICD-10 - Z00.00) Personalized health [...] Stress test ordered to rule out abnormalities. [facility] Other Evaluation noteNo assessment information available [facility] Work Phone: Evaluation note* Diagnosis Amenorrhea- [...] note* Diagnosis Third trimester ([facility]) state, incidental 40 weeks gestation of ([facility]) documented in this encounter NOMS HealthcareHistory general Narrative - Reported* Type Description Date Medical History Left elbow dislocation 2011 [facility] Other Summary Purpose Family History No Family History Records FoundNo Family History Records FoundNo Family History Records FoundNo Family History Records FoundNo Family History Records Found Advance Directives No Advanced Directives Records FoundNo Advanced Directives Records FoundNo Advanced Directives Records FoundNo Advanced Directives Records FoundNo Advanced Directives Records Found Additional Source Comments INFORMATION SOURCE (unrecogn ized section and content) DATE CREATED AUTHOR 07/30/2021 [facility] DATE CREATED AUTHOR AUTHOR'S ORGANIZ ATION 05/24/2023 [facility] DATE CREATED AUTHOR AUTHOR'S ORGANIZ ATION 02/20/2024 [facility] DATE CREATED AUTHOR AUTHOR'S ORGANIZ ATION 03/02/2025 [facility] DATE CREATED AUTHOR AUTHOR'S ORGANIZ ATION 03/06/2025 [facility] REASON FOR VISIT (unrecogniz ed section and content) ReasonCommentsGynecologic ExamReasonCommentsFollow-upReasonCommentsInitial VisitNurse VisitReasonCommentsAmenorrheaReasonCommentsRoutine Visit Care Teams (unrecognized sec tion and content) Team Status: Inactive Member Role Status Dates Lisandro Buitrago DO Attending Provider Active Team MemberRelationshipSpecialtyStart DateEnd Date Unallocated, Torrey Horn MD [facility] [place] [address] PCP - [facility]06/23/23Team MemberRelationshipSpecialtyStart DateEnd Date Unallocated, Torrey Horn MD [address] [place] [address] [place] [address] PCP - [facility]06/23/23Team MemberRelationshipSpecialtyStart DateEnd Date Unallocated, Torrey Horn MD [address] [place] [address] PCP - [facility]06/23/23Team MemberRelationshipSpecialtyStart DateEnd Date Unallocated, Torrey Horn MD [address] [place], [place] [address] [address] PCP - [facility]06/23/23Team MemberRelationshipSpecialtyStart DateEnd Date Unallocated, Torrey Horn MD [address] [place], [place] [address] [address] PCP - [facility]06/23/23Team MemberRelationshipSpecialtyStart DateEnd Date Unallocated, Torrey Horn MD [address] [place] [address] [place] [address] [facility]/23Team MemberRelationshipSpecialtyStart DateEnd Date Unallocated, Torrey Horn MD [facility] [address] [place] [address] PCP - [facility]06/23/23Team MemberRelationshipSpecialtyStart DateEnd Date Unallocated, Torrey Horn MD [facility] [address] [place] [address] PCP - [facility]06/23/23Team MemberRelationshipSpecialtyStart DateEnd Date Unallocated, Torrey Horn MD [facility] [address] [place] [address] PCP - [facility]06/23/23Team MemberRelationshipSpecialtyStart DateEnd Date Unallocated, Torrey Horn MD [facility] [address] [place] [address] PCP - [facility]06/23/23Team MemberRelationshipSpecialtyStart DateEnd Date Unallocated, Torrey Horn MD [address] [place] [address] [place] [address] PCP - [facility]06/23/23Team MemberRelationshipSpecialtyStart DateEnd Date Unallocated, Torrey Horn MD [facility] [address] [place] [address] PCP - [facility]06/23/23Te MemberRelationshipSpecialtyStart DateEnd Date Unallocated, Torrey Horn MD [facility] [place] [address] PCP - [facility] Medicine06/23/23 Goals (unrecognized section and content) Goals may [...] BE BASED ON THE PRIMARY CLINICAL RECORDS. [facility]. provides no warranty or guarantee of the accuracy or completeness of information in this document.
--- NOTE | 2025-03-12 15:45 | PC.NURSE ---
Sandip Merino and 6 day old Olga arrive for follow up. Parents smiling and appear relaxed. States just came from PCP for Olga and everything checked out well. Parents relate first 2 days at home were hard but milk came in and everything changed Latching going well, feeding well and multiple wet and stool diapers daily. (8-10 wets and 6-8 yellow seedy stools) Angelique denies complaints or concerns for self. VSS and assessment wNL. Small vaginal bleeding noted and states did a sitz bath at home yesterday evening and perineum has been fine since then. Baby Olga with VSS and assessment WNL. No concerns voiced per parents. to breast with ease, nurses 18 minutes and released latch. No interest in 2nd breast. Discussed using both breasts at each feed so milk can be removed bilaterally. Voices understanding. States will work on that over the next few days. No further questions. Family home. Aaware of [facility]OM[facility] group and to call for concerns.
[2025-03-12 15:46] VITALS: BP 135/80; PULSE 90; TEMP 36.8; O2SAT 96
== END 2025-03-12 15:49 | disposition home or self-care (01) ==
LOC: FBCO 08:17
PROVIDERS: PCP Family Medicine; Visit Provider Obstetrics & Gynecology
DX: Z39.1 Encounter for care and examination of lactating mother (principal)

== ENCOUNTER 2025-04-09 13:37 | Outpatient (OUT) | payer OTHER, SELFPAY ==
--- OUTSIDE RECORDS SUMMARY | 2025-04-09 13:40 | XMS_ITS | Clinical Summary ---
Author Organization [facility] Address [address] [place] [address] Care Team Providers Care Burlap Spreader Name Role Phone Unallocated, [facility] Provider Primary Care Provi ulysses Allergies No known active allergies Medications MedicationSigDispense QuantityRefillsLast FilledStart DateEnd DateStatus Vit-Fe Fumarate-FA ( PO) Take by mouthActive diazePAM (Valium) 2 MG tablet 2 mg03/30/2024ctive meclizine (Antivert) 25 MG tablet 25 mg03/30/2024ctive ondansetron (Zofran) 4 MG tablet 4 mg03/30/2024ctive Encounters DateTypeDepartmentCare GmvcIgunasfszau32/29/2025linisync Result Encounter [facility] External Department Unsolicited Rocio Lozano, DO 5Clinisync Result Encounter [facility] External Department Unsolicited Rocio Lozano, DO 03/01/2025 8:40 AM EDTRoutine [facility] [address] [place] [address] Nadine Gurrola PA Third trimester ([facility]); 40 weeks gestation of ([facility])5Clinisync Result Encounter [facility] External Department Unsolicited Rocio Lozano, DO 03/01/2025Telephone [facility] [address] [place] [address] Teresa Ambriz LPN 03/01/2025amboo flowsheet [facility] [address] [phone] Nadine Gurrola PA 02/22/2025 8:40 AM EDTRoutine [facility] [address] [phone] Nadine Gurrola PA Third trimester ([facility]); 39 weeks gestation of ([facility])02/22/2025linisync Result Encounter [facility]OMS External Department Unsolicited Blake, Rocio, DO 02/22/2025amboo flowsheet [facility] [place] [facility] [address] [address] Nadine Gurrola PA 02/15/2025 8:50 AM EDTRoutine [facility] [place] [facility] [address] [phone] Rosaura Li NP Third trimester ([facility]); 38 weeks gestation of ([facility])02/15/2025linisync Result Encounter [facility] External Department Unsolicited Blake, Rocio, DO 02/08/2025 8:40 AM EDTRoutine [facility] [place] [facility] [address] [phone] Rosaura Li NP Third trimester ([facility]); 37 weeks gestation of ([facility])02/08/2025linisync Result Encounter [facility] External Department Unsolicited Blake, Rocio, DO 02/08/2025amboo flowsheet [facility] [address] [phone] Rosaura Li NP 02/07/20254692Njzdse09/25/2025linisync Result Encounter [facility] External Department Unsolicited Blake, Rocio, DO 01/29/2025 8:30 AM EDTRoutine [facility] [place] [facility] [address] [address] Rocio Lozano, Third trimester ([facility]); 36 weeks gestation of ([facility])01/29/2025amboo flowsheet [facility] [address] [address] Rocio Lozano, 5Clinisync Result Encounter [facility] External Department Unsolicited Rocio Lozano, 5Clinisync Result Encounter [facility] External Department Unsolicited Rocio Lozano, 01/15/2025 8:50 AM EDTRoutine [facility] [address] [place] [address] Rosaura Li, LIBBY Third trimester ([facility]); 34 weeks gestation of ([facility])01/15/2025amb flowsheet [facility] [address] [address] Rosaura Li, LIBBY 5Clinisync Result Encounter [facility] External Department Unsolicited Rocio Lozano, from Last 3 Months Family History Medical [...] or more drinks on one occasion?Less than matauvr7902/08/2024HQ-2AnswerDate RecordedPatient Health Questionnaire-2 Score0 05/16/2024Estimated Date of SfnkepeaCawvdizyBoi96/20/2025Based on Ultrasound, FHR- 173Sex and Gender InformationValueDate RecordedSex Assigned at BirthNot on fileLegal QqcAvlknx32/06/2024 11:24 AM ESTGender IdentityNot on file Sexual OrientationNot on fileOccupationIndustryJob Start DateJob End DateNot on fileNot on fileNot on fileNot on file Last Filed Vital Signs Vital SignReadingTime TakenCommentsBlood Diwwgaut883/7810 9:04 AM EDT Egecj812306/23/2023 9:25 AM WXIVtcnzehdctq61.4 ??C (97.5 ??F)06/23/2023 9:25 AM ESTRespiratory Anml422105/15/2023 11:28 AM ESTOxygen Fimtlsrrxa43%06/23/2023 9:25 AM ESTInhaled Oxygen Concentration--Npuqdz41.2 kg (179 lb)03/01/2025 9:04 AM EDT Ocxvog204 cm (5' 3 )08/10/2024 2:55 PM EDTBody Mass Index31.71008/10/2024 2:55 PM EDT Plan of Treatment Health MaintenanceDue DateLast DoneCommentsCOVID-19 Vaccine ( season) /, 08/21/2020Influenza Vaccine (#1)2025Pneumococcal Vaccine: Pediatrics (0 to 5 Years) and At-Risk Patients (6 to 64 Years)Aged Out No longer eligible based on patient's age to complete this topic Goals GoalPatient Goal TypeAssociated ProblemsRecent ProgressPatient-Stated?Author Reminders Care PlanOB RemindersJennifer Fatima RN Procedures Procedure NamePriorityDate/TimeAssociated DiagnosisCommentsALL CBC WITH AUTO MFQCMetywyt43/29/2025 6:12 AM EDT TB[facility] DRUG SCREEN RAPID (URINE)Ykogohr5803/05/2025 5:30 PM EDT HMHP CBC WITH PLATELET NO EKWPATDVVIYYKzsatwj70/27/2025 5:30 PM EDT POCT URINALYSIS PPMMCNLQUxffgax86/23/2025 9:05 AM EDT Third trimester ([facility]) US OB BPP W NON-CHHPFB7803/01/2025 8:38 AM EDT POCT URINALYSIS HVVCXHFQKmmqyfd24/16/2025 8:46 AM EDT 39 weeks gestation of ([facility]) US OB BPP W NON-ISNHXH6002/22/2025 8:02 AM EDT POCT URINALYSIS TVBIWDRNVrgzkrl23/09/2025 8:53 AM EDT Third trimester ([facility]) US OB BPP W NON-VGURZJ5002/15/2025 8:08 AM EDT US OB BPP W NON-BVVTKI7902/08/2025 9:24 AM EDT POCT URINALYSIS CQDXZKGOBdvbgcy72/02/2025 8:57 AM EDT Third trimester ([facility]) US OB BPP W NON-DTWUGQ5202/01/2025 8:47 AM EDT POCT URINALYSIS YAVAQBILSwtbpmx64/22/2025 8:42 AM EDT Third trimester ([facility]) CULTURE, GROUP B STREP WITH RJVWQERBLHLFABcyzmxt30/22/2025 8:30 AM EDT Third trimester ([facility]) US OB BPP W NON-RDDMCA5101/25/2025 8:50 AM EDT US OB BPP W NON-OUHHLX9501/18/2025 8:45 AM EDT POCT URINALYSIS TPXEDTRDGbhymjf68/08/2025 9:01 AM EDT Third trimester ([facility]) US OB BPP W NON-PZLJVI4501/08/2025 12:44 PM EDT from Last 3 Months Results * (ABNORMAL) ALL CBC WITH AUTO DIFF (03/07/2025 6:12 AM EDT)ComponentValueRef RangeTest MethodAnalysis TimePerformed AtPathologist SignatureTBH WBC20.6(H) 4.0 - 11.0 10 3/uLTBHTBH RBC3.53(L)4.20 - 5.40 10 6/uLTBHTBH HGB10.9(L)12.0 - 16.0 g/dLTBHTBH HCT32.1(L)36.0 - 48.0 %TBHTBH MCV90.981.0 - 99.0 fLTBHTBH MCH 30.926.7 - 34.0 pgTBHTBH MCHC34.029.9 - 35.2 g/dLTBHTBH RDW13.611.0 - 15.0 % TBHTBH ONK501731 - 450 10 3/uLTBHTBH MPV10.29.5 - 13.5 [...] DOCLINISYNCFinal Result Performing OrganizationAddressCity/State/ZIP CodePhone Number [facility] * [facility] DRUG SCREEN RAPID (URINE) (03/05/2025 [...] Blake DOCLINISYNCFinal Result Performing OrganizationAddressCity/State/ZIP CodePhone Number [facility] * (ABNORMAL) HP CBC WITH PLATELET NO DIFFERENTIAL (03/05/2025 5:30 PM EDT) ComponentValueRef RangeTest MethodAnalysis TimePerformed AtPathologist SignatureTBH WBC11.9(H)4.0 - 11.0 10 3/uLTBHTBH RBC4.08(L)4.20 - 5.40 10 6/uL TBHTBH HGB12.212.0 - 16.0 g/dLTBHTBH HCT36.136.0 - 48.0 %TBHTBH MCV88.581.0 - 99.0 fLTBHTBH MCH29.926.7 - 34.0 pgTBHTBH MCHC33.829.9 - 35.2 g/dLTBHTBH RDW 13.111.0 - 15.0 %TBHTBH VJU366468 - 450 10 3/uLTBHTBH MPV11.29.5 - 13.5 fLTBH Specimen (Source)Anatomical Location / LateralityCollection Method / Volume Collection TimeReceived Time03/05/2025 5:30 PM EDT1 6:46 PM EDT Narrative [facility] - 03/05/2025 6:56 PM EDT Authorizing ProviderResult TypeResult StatusCorey Blake DOCLINISYNCFinal Result Performing OrganizationAddressCity/State/ZIP CodePhone Number [facility] * (ABNORMAL) POCT urinalysis dipstick manually resulted (03/01/2025 9:05 AM EDT) Only the most recent of6 resultswithin the time period is included. ComponentValueRef RangeTest MethodAnalysis TimePerformed AtPathologist Signature Color, UAYellowClarity, UAClearGlucose, UANegativeNegative - 1999(110) ++++ mg/dLBilirubin, UANegativeNegative - 4(70) +++ mg/dLKetones, UANegativeNegative - 160(16) ++++ mg/dLSpec Grav, UA1.0101 - 1.03Blood, UANegativeNegative - 50 Mark/mcLpH, UA6.05 - 9Protein, UANegativeNegative - 2000(20) ++++ mg/dL Urobilinogen, UA1.00.2 - 12 mg/dLLeukocytes, UA2+Negative - 500+++ Mahsa/mcL Nitrite, UANegativeNegative - PositiveSpecimen (Source)Anatomical Location / LateralityCollection Method / VolumeCollection TimeReceived FwgdHioij13/23/2025 9:05 AM EDT Narrative Authorizing ProviderResult TypeResult StatusMountain View Regional [facility] Center TEST ENTER/EDIT ORDERABLESFinal Result * US OB BPP W NON-STRESS (03/01/2025 8:38 AM EDT) Only the most recent of8 resultswithin the time period is included. Anatomical RegionLateralityModalityOtherSpecimen (Source)Anatomical Location / LateralityCollection Method / VolumeCollection TimeReceived Time03/01/2025 8:38 AM EDT Narrative 03/01/2025 8:41 AM EDT [facility] ?[address] ? [place] [address] ? Ultrasound Report ? Signed Patient: ALONDRA BEAVER ?MR#: [id number] : 1995 ?Acct:[id number] Age/Sex: 29 / F ?ADM Date: 03/01/25 Loc: FBCO Attending Dr: Rocio Lozano D.O. Ordering Physician: Rocio Lozano D.O. Date of Service: 03/01/25 Procedure(s): US OB BPP w non-stress Accession Number(s): [id number] cc: Rocio Lozano D.O.; Zita Alanis M.D. ? [facility] ? [address] ? [place] [address] ? Patient Name: ALONDRA BEAVER MRN: [id number] ? date: 1995 ?Sex: F Assigned Patient Location: [facility] Current Patient Location: Accession/Order Number: [id number] Exam Date: 03/01/2025 ??07:30 ?Report Date: 03/01/2025 ??08:38 At the request of: ROCIO ??BLAKE ??DO Procedure: ??US OB BPP w non-stress BIOPHYSICAL PROFILE: CLINICAL INFORMATION: Post-dates COMPARISON: 02/12/2025 There is a single live intrauterine gestation in cephalic presentation. ??The reported gestational age is 40 weeks 3 days. ??The heart rate measures 138 beats per minute. FINDINGS: TONE: 1 or more episodes of activity extension and flexion of extremity or opening and closing of the hand ?[Y] ? 2/2 GROSS BODY MOVEMENTS: 3 or more discrete body or limb movements ?[Y] ? 2/2 BREATHING MOVEMENTS: 1 or more episodes of breathing lasting at least 30 seconds ? [Y] ? 2/2 ZULMA: A single deepest vertical pocket of amniotic fluid greater than 2 cm [Y] ? 2/2 ?ZULMA: 7.5 cm. ??The 5th percentile 7.1 cm. Total score: ? 8/8 / OB BPP w non-stress IMPRESSION: NORMAL BIOPHYSICAL PROFILE. BORDERLINE OLIGOHYDRAMNIOS. Impression dictated by: Zita Lu M.D. ??03/01/2025 8:38 AM Dictation Location: [place] [address] Electronically authenticated by: [id number] ??Y ?? Date: 03/01/2025 ??08:38 Dictated By: ?Zita Lu M.D. Signed By: ?03/01/25840 DD/ 7 TD/TT: ? Monkey Keeper: Procedure Note Radiology, Radiologist, - 03/20/2025 [place] [address] Ultrasound Report Signed Patient: ALONDRA BEAVER NMR#: [id number] : 1995Acct:[id number] Age/Sex: 29 / FADM Date: 03/01/25 Loc: FBPR Attending Dr: Rocio Lozano D.O. Ordering Physician: Rocio Lozano D.O. Date of Service: 03/01/25 Procedure(s): OB BPP w non-stress Accession Number(s): [id number] cc: Rocio Lozano D.O.; Zita Alanis M.D. The [place] [id number] Patient Name: ALONDRA BEAVER MRN: [id number] date: 1995 Sex: F Assigned Patient Location: [facility] Current Patient Location: Accession/Order Number: [id number] Exam Date: 03/01/2025 07:30 Report Date: 03/01/2025 08:38 At the request of: ROCIO LOZANO DO Procedure: US OB BPP w non-stress BIOPHYSICAL PROFILE: CLINICAL INFORMATION: Post-dates COMPARISON: 02/12/2025 There is a single live intrauterine gestation in cephalic presentation.The reported gestational age is 40 weeks 3 days. The heart ratemeasures 138 beats per minute. FINDINGS: TONE: 1 or more episodes of activity extension and flexion offetal extremity or opening and closing of the hand [Y] 2/2 GROSS BODY MOVEMENTS: 3 or more discrete body or limb movements [Y]2/2 BREATHING MOVEMENTS: 1 or more episodes of breathing lastingat least 30 seconds [Y] 2/2 ZULMA: A single deepest vertical pocket of amniotic fluid greater than 2cm [Y] 2/2 ZULMA: 7.5 cm. The 5th percentile 7.1 cm. Total score: 8/8 US/US OB BPP w non-stress IMPRESSION: NORMAL BIOPHYSICAL PROFILE. BORDERLINE OLIGOHYDRAMNIOS. Impression dictated by: Zita Lu M.D. 03/01/2025 8:38 AM Dictation Location: [place] [address] Electronically authenticated by: [id number] Y Date: 508:38 Dictated By: Zita Lu M.D. Signed By:03/01/25840 DD/ 7 TD/TT: Monkey Keeper: Authorizing ProviderResult TypeResult StatusCorey Blake DOCLINISYNC IMAGINGFinal Result * CULTURE, GROUP B STREP WITH SUSCEPTIBLITY (01/29/2025 8:30 AM EDT)Specimen (Source)Anatomical Location / LateralityCollection Method / VolumeCollection TimeReceived NfvgKrls87/22/2025 8:30 AM EDT Narrative Authorizing ProviderResult TypeResult StatusCorey Blake DOLAB BLOOD ORDERABLES Final ResultPerforming OrganizationAddressCity/State/ZIP CodePhone Number EXTERNAL LAB from Last 3 Months Additional Health Concerns Active ProblemsNoted DateDiagnosed DateOB Zbqmvjdbi36/04/2025 Insurance Care Teams Team MemberRelationshipSpecialtyStart DateEnd Date Unallocated, [facility] Justina, [address] [place] [address] [facility]
--- OUTSIDE RECORDS SUMMARY | 2025-04-09 13:44 | XMS_ITS | CCD ---
Author Organization [facility] Care Team Providers Care Fundraising Officer Name Role Phone DR JANES GARCIA Admitting Unavailable JOSE, DR JANES Escobar Attending Unavailable REQUEST, NONE LISTED Primary Care Unavaila DR JANES Rodriguez Consulting Unavailable Lisandro Buitrago Unavailable DO Lisandro [...] KERA Attending Unavailable GALILEO, NADINE Attending Unavailable NADINE GALVAN Attending Unavailable Zita Alanis Attending Unavailable Zita Alanis Primary Care Unavailable Medications Current Medications MedicationDrug Class(es)DatesSig (Normalized)Sig (Original)diazePAM 2 mg oral tablet (5 sources)BenzodiazepineStart: 61-42-4870hvypvOYX (Valium) 2 MG tablet 2 mg 03/30/2024 Activemeclizine hydrochloride 25 mg oral tablet (5 sources)AntiemeticStart: 62-82-1435kircgqffp (Antivert) 25 MG tablet 25 mg 03/30/2024 Activenaproxen 500 mg oral tablet (1 source)Nonsteroidal Anti-inflammatory DrugStart: 52-16-8678nndu 1 tablet by mouth every twelve hours at mealtime as neededNaproxen 500 MG 1 tablet with food or milk as needed Orally every 12 hrs for 20 days May, Activeondansetron 4 mg oral tablet (5 sources)Serotonin-3 Receptor AntagonistStart: 69-48-5329hxfuqxxbruf (Zofran) 4 MG tablet 4 mg 03/30/2024 ActivePrenatal Vit-Fe Fumarate-FA ( PO) (20 sources) Vit-Fe Fumarate-FA ( PO) Take by mouth Active Completed/Discontinued Medications MedicationDrug Class(es)DatesSig (Normalized)Sig (Original)azithromycin 250 mg oral tablet (3 sources)Macrolide AntimicrobialStart: 08-21-2024 End: 96-97-6009sohmapazbdlh (Zithromax Z-Triston) 250 MG tablet Indications: Sore throat As directed 6 tablet 08/21/2024 08/29/2024 Xggpqeutkxrf04 day ethinyl estradiol 0.598416 mg/hr / etonogestrel 0.005 mg/hr vaginal system (6 sources)Progestin, EstrogenStart: 05-13-2023 End: 00-48-1669KzsSqvl 0.12-0.015 MG/24HR vaginal ring INSERT 1 RING [...] for surveillance of vaginal ring hormonal contraceptive device]57-13-0071RouwslvgGuremteu mellitus without complication (2 sources)Abnormal glucose tolerance test; Translations: [Other abnormal glucose]85-69-0483JqgvgjiqZqbggtbko of lipid metabolism (1 source)Hyperlipidemia; Translations: [Hyperlipidemia, unspecified]Chronic Esophageal disorders (1 source)Gastro-esophageal reflux disease without esophagitis; Translations: [GERD WITHOUT ESOPHAGITIS]Onset: 67-91-3195TkjqwspTugnpikkc disorders (8 sources)Amenorrhea; Translations: [Amenorrhea, unspecified]32-17-0346Rjikhxk Nausea and vomiting (3 sources)Nausea with vomiting, unspecified; Translations: [NAUSEA WITH VOMITING UNSPECIFIED]Onset: 87-12-8214CukyhqqrDfzrcvzjojfaf gastroenteritis (1 source)Noninfective gastroenteritis and colitis, unspecified; Translations: [NONINFECTIVE GE AND COLITIS UNS]Onset: 44-53-5335MbsumeqoUtqhnjiraud chest pain (3 sources)Chest pain, unspecified; Translations: [Chest pain]Onset: 03-02-2023 EpisodicOther and ill-defined heart disease (2 sources)Left atrial enlargement; Translations: [Cardiomegaly]ChronicOther and ill-defined heart disease (1 source)CardiomegalyChronicOther complications of (2 sources) size does not accord with dates; Translations: [Uterine size- date discrepancy, unspecified trimester]28-40-9350CbdvtfkuZpplh complications of (2 sources)Abnormal amniotic fluid; Translations: [Other abnormal findings on screening of mother]83-13-4977GzppnuztJuqbh endocrine disorders (2 sources)Disorder of endocrine system; Translations: [Endocrine disorder, unspecified]56-91-6019ZpwlotqnTxoby non-traumatic joint disorders (2 sources)Pain in left shoulder; Translations: [Acute pain of left shoulder] EpisodicOther and delivery including normal (20 sources)Normal ; Translations: [Encounter for supervision of normal first , first trimester]47-02-1139PoqatfscRhqam screening for suspected conditions (not mental disorders or infectious disease) (9 sources)Abnormal electrocardiogram [ECG] [EKG]; Translations: [Cancer cervix screening status]EpisodicResidual codes; unclassified (2 sources)Gestation period, 14 weeks; Translations: [14 weeks gestation of ]41-34-7318EsffmxoeVzhhhhgj codes; unclassified (2 sources)Gestation period, 22 weeks; Translations: [22 weeks gestation of ]28-98-2618UdrxppemNyiyncir codes; unclassified (2 sources)Gestation period, 26 weeks; Translations: [26 weeks gestation of ]36-52-4889LgccitvhBxqobtmq codes; unclassified (2 sources)Gestation period, 28 weeks; Translations: [28 weeks gestation of ]95-90-4913LoxfnnvmVoffomaq codes; unclassified (2 sources)Gestation period, 30 weeks; Translations: [30 weeks gestation of ]19-44-6176EnmmfwzuLegpfday codes; unclassified (2 sources)Gestation period, 32 weeks; Translations: [32 weeks gestation of ]11-37-7817AwgzrgktGmkayzsi codes; unclassified (2 sources)Gestation period, 34 weeks; Translations: [34 weeks gestation of ]25-64-1444MbdaqhlfIcbwrgde codes; unclassified (2 sources)Gestation period, 36 weeks; Translations: [36 weeks gestation of ]82-67-9799YkedumbzGiypbmiq codes; unclassified (2 sources)Gestation period, 37 weeks; Translations: [37 weeks gestation of ]00-78-9310CiznfpxrLalroaak codes; unclassified (2 sources)Gestation period, 38 weeks; Translations: [38 weeks gestation of ]90-41-1519CqfzezfoMhuikoga codes; unclassified (2 sources)Gestation period, 39 weeks; Translations: [39 weeks gestation of ]46-07-6506BsbnpwcsUozcsnua codes; unclassified (2 sources)Gestation period, 40 weeks; Translations: [40 weeks gestation of ]90-67-3544DidenmetVfwzuty and strains (1 source)Strain of muscle, fascia and tendon of lower back, initial encounter EpisodicUnclassified (1 source)Pain in left shoulder; Translations: [Pain in left shoulder]Onset: 49-80-9724Qgpudeabuuwx (20 sources)OB RemindersOnset: Viral infection (4 sources)Herpes simplex; 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, unspecified] 88-96-5160Xokovglu Results Test NameValueInterpretationReference RangeFacilityOutside Recordson 03-20-2025 Outside [id number]#1.00OTGTIFFMemorial Health System [facility] CBC WITH AUTO DIFFon 62-02-2549QAGEENCAK ABSOLUTE AUTO0.0NOMS HealthcareBasophils/100 WBC (Bld)0.2 %0.2 - 2.0 %[facility] HospitalEosinophils/100 WBC (Bld)0.1 %Low0.9 - 7.0 %[facility] HospitalErythrocyte distribution width (RBC) [Ratio]13.6 %11.0 - 15.0 %[facility] HospitalHematocrit (Bld) [Volume fraction]32.1 %Low36.0 - 48.0 %[facility] HospitalHemoglobin (Bld) [Mass/Vol]10.9 g/dLLow12.0 - 16.0 g/dLHermann Area District HospitalIMMATURE GRANULOCYTES ABS AUTO0.20HighHermann Area District Hospital Immature granulocytes/100 WBC (Bld)1.0 %High0.0 - 0.5 %[facility] Interpretation and review of laboratory resultsAbnormalHermann Area District Hospital LYMPHOCYTES ABSOLUTE AUTO1.8NOCox SouthLymphocytes/100 WBC (Bld)8.8 %Low20.5 - 60.0 %[facility] CenterH (RBC) [Entitic mass]30.9 pg26.7 - 34.0 pgMissouri Rehabilitation CenterHC (RBC) [Mass/Vol]34.0 g/dL29.9 - 35.2 g/dLMissouri Rehabilitation CenterV (RBC) [Entitic vol]90.9 fL81.0 - 99.0 fLHermann Area District HospitalMONOCYTES ABSOLUTE AUTO1.5High [facility] HospitalMonocytes/100 WBC (Bld)7.2 %1.7 - 12.0 %[facility] NEUTROPHILS ABSOLUTE AUTO17.0HighHermann Area District HospitalNeutrophils/100 WBC (Bld)82.7 % High43.0 - 75.0 %[facility] HospitalPlatelet mean volume (Bld) [Entitic vol]10.2 fL 9.5 - 13.5 fLHermann Area District HospitalTBH EO #0.0NOCrossroads Regional Medical Center UXZ546RIMRFreeman Orthopaedics & Sports Medicine RBC3.53LowNOCrossroads Regional Medical Center WBC20.6HighHermann Area District HospitalCLINISYNCNOMS Kettering Health TroyHP CBC WITH PLATELET NO DIFFERENTIALon 38-06-9497Bvxsgfdydbe distribution width (RBC) [Ratio]13.1 %11.0 - 15.0 %[facility] HospitalHematocrit (Bld) [Volume fraction]36.1 %36.0 - 48.0 %[facility] HospitalHemoglobin (Bld) [Mass/Vol]12.2 g/dL12.0 - 16.0 g/dLHermann Area District HospitalInterpretation and review of laboratory resultsAbnormForbes Hospital (RBC) [Entitic mass]29.9 pg26.7 - 34.0 pgMissouri Rehabilitation CenterHC (RBC) [Mass/Vol]33.8 g/dL29.9 - 35.2 g/dLMissouri Rehabilitation CenterV (RBC) [Entitic vol]88.5 fL81.0 - 99.0 fLHermann Area District HospitalPlatelet mean volume (Bld) [Entitic vol]11.2 fL9.5 - 13.5 fLHermann Area District HospitalTB LIF426VAZYCox SouthTB RBC4.08LowMineral Area Regional Medical Center WBC11.9HighHermann Area District HospitalCLINISYNC [facility] HealthcareRad - Other Radiology Reporton 89-72-2643Qpg - Other Radiology [id number]#1.00OTCleveland Clinic Avon HospitalRad - Other Radiology Reporton 23-50-7530Htk - Other Radiology Report [id number]#1.00OTCleveland Clinic Avon HospitalUS OB BPP W NON-STRESSon 76-11-3862N[place]kSanta [place] [address] Ultrasound Report Signed Patient: ALONDRA BEAVER MR#: [id number] : 1995 Acct:[id number] Age/Sex: 29 / F ADM Date: 03/01/25 Loc: FBCO Attending Dr: José Lozano D.O. Ordering Physician: José Lozano D.O. Date of Service: 03/01/25 Procedure(s): US OB BPP w non-stress Accession Number(s): [id number] cc: José Lozano D.O.; Zita Alanis M.D. [place] [id number] Patient Name: ALONDRA BEAVER MRN: [facility]:[id number] date: 1995 Sex: F Assigned Patient Location: [facility] Current Patient Location: Accession/Order Number: [id number] Exam Date: 03/01/2025 07:30 Report Date: 03/01/2025 08:38 At the request of: JOSÉ LOZANO DO Procedure: US OB BPP w non-stress BIOPHYSICAL PROFILE: CLINICAL INFORMATION: Post-dates COMPARISON: 02/12/2025 There is a single live intrauterine gestation in cephalic presentation. The reported gestational age is 40 weeks 3 days. The heart rate measures 138 beats per minute. [...] greater than 2 cm [Y] 2/2 ZULMA: 7.5 cm. The 5th percentile 7.1 cm. Total score: 8/8 US/US OB BPP w non-stress IMPRESSION: NORMAL BIOPHYSICAL PROFILE. BORDERLINE OLIGOHYDRAMNIOS. Impression dictated by: iZta Lu M.D. 03/01/2025 8:38 AM Dictation Location: [place] [address] Electronically authenticated by: [id number] Y Date: 03/01/2025 08:38 Dictated By: Zita Lu M.D. Signed By: 03/01/2541 DD/ TD/TT: Marine Mammal Trainer:ANDREINAHRadiology, Radiologist, - 03/20/2025 [place] [address] Ultrasound Report Signed Patient: ALONDRA BEAVER MR#: [id number] : 1995 Acct:[id number] Age/Sex: 29 / F ADM Date: 03/01/25 Loc: FBCO Attending Dr: José Lozano D.O. Ordering Physician: José Lozano D.O. Date of Service: 03/01/25 Procedure(s): US OB BPP w non-stress Accession Number(s): [id number] cc: José Lozano D.O.; Zita Alanis M.D. [place] [address] Patient Name: ALONDRA BEAVER MRN: [facility]:[id number] date: 1995 Sex: F Assigned Patient Location: [facility] Current Patient Location: Accession/Order Number: [id number] Exam Date: 03/01/2025 07:30 Report Date: 03/01/2025 08:38 At the request of: JOSÉ LOZANO DO Procedure: US OB BPP w non-stress BIOPHYSICAL PROFILE: CLINICAL INFORMATION: Post-dates COMPARISON: 02/12/2025 There is a single live intrauterine gestation in cephalic presentation. The reported gestational age is 40 weeks 3 days. The heart rate measures 138 beats per minute. [...] greater than 2 cm [Y] 2/2 ZULMA: 7.5 cm. The 5th percentile 7.1 cm. Total score: 8/8 US/US OB BPP w non-stress IMPRESSION: NORMAL BIOPHYSICAL PROFILE. BORDERLINE OLIGOHYDRAMNIOS. Impression dictated by: Zita Lu M.D. 03/01/2025 8:38 AM Dictation Location: [place] [address] Electronically authenticated by: [id number] Y Date: 03/01/2025 08:38 Dictated By: Zita Lu M.D. Signed By: 03/01/25840 DD/ 7 TD/TT: Marine Mammal Trainer: NOMApurva HealthcareRadiology Study observation (narrative)NOMS HealthcareUS OB BPP W NON-STRESSOrdered By: Radiologist Radiology on 11-92-4103INOC Healthcare Work Phone: Urinalysis macro (dipstick) panel (U)on 03-01-2025 Bilirubin, UANegativeNegative - 4(70) +++ mg/dLNOMS HealthcareBlood, UANegative Negative - 50 Mark/mcLNOMS HealthcareClarity, UAClearNOMS HealthcareColor, UA YellowNOMS HealthcareGlucose, UANegativeNegative - 2000(110) ++++ mg/dLNOMS HealthcareInterpretation and review of laboratory resultsAbnormalNOIN Healthcare Ketones, UANegativeNegative - 160(16) ++++ mg/dLNOMS HealthcareLeukocytes, UA2+ Negative - 500+++ Mahsa/mcLNOMS HealthcareNitrite, UANegativeNegative - Positive NOMS HealthcarepH, UA6.05 - 9NOMS HealthcareProtein, UANegativeNegative - 2000(20) ++++ mg/dLNOMS HealthcareSpec Grav, UA1.0101 - 1.03NOMS Healthcare Urobilinogen, UA1.00.2 - 12 mg/dLNOMS HealthcareNOMS HealthcareUS OB BPP W NON-STRESSon 17-91-9723UcfSanta [place] [address] Ultrasound Report Signed Patient: ALONDRA BEAVER MR#: [id number] : 1995 Acct:[id number] Age/Sex: 29 / F ADM Date: 02/22/25 Loc: [facility] 250- Attending Dr: José Lozano D.O. Ordering Physician: José Lozano D.O. Date of Service: 02/22/25 Procedure(s): US OB BPP w non-stress Accession Number(s): [id number] cc: José Lozano D.O.; Zita Alanis M.D. The [address] [address] Patient Name: ALONDRA BEAVER MRN: [facility]:[id number] date: 1995 Sex: F Assigned Patient Location: Current Patient Location: [facility] Accession/Order Number: [id number] Exam Date: 02/22/2025 07:03 Report Date: 02/22/2025 08:02 At the request of: JOSÉ LOZANO DO Procedure: US OB BPP w non-stress BIOPHYSICAL PROFILE: CLINICAL INFORMATION: OLIGOHYDRAMNIOS COMPARISON: 02/15/2025. There is a single live intrauterine gestation in cephalic presentation. The reported gestational age is 39 weeks 3 days. The heart rate measures 139 beats per minute. FINDINGS: TONE: 1 or [...] greater than 2 cm [Y] 2/2 ZULMA: 8.3 cm. The 5th percentile 7.2 cm Total score: 8/8 US/US OB BPP w non-stress IMPRESSION: NORMAL BIOPHYSICAL PROFILE. BORDERLINE OLIGOHYDRAMNIOS. Impression dictated by: Zita Lu M.D. 02/22/2025 8:02 AM Dictation Location: [place] [address] Electronically authenticated by: [id number] Y Date: 02/22/2025 08:02 Dictated By: Zita Lu M.D. Signed By: 02/22/25804 DD/ 1 TD/TT: Marine Mammal Trainer:TBHRadiology, Radiologist, - 03/20/2025 [place] [address] Ultrasound Report Signed Patient: ALONDRA BEAVER MR#: [id number] : 1995 Acct:[id number] Age/Sex: 29 / F ADM Date: 02/22/25 Loc: [facility] 250-[address]: José Lozano D.O. Ordering Physician: José Lozano D.O. Date of Service: 02/22/25 Procedure(s): US OB BPP w non-stress Accession Number(s): [id number] cc: José Lozano D.O.; Zita Alanis M.D. [place] [address] Patient Name: ALONDRA BEAVER MRN: [facility]:[id number] date: 1995 Sex: F Assigned Patient Location: Current Patient Location: [facility] Accession/Order Number: [id number] Exam Date: 02/22/2025 07:03 Report Date: 02/22/2025 08:02 At the request of: JOSÉ LOZANO DO Procedure: US OB BPP w non-stress BIOPHYSICAL PROFILE: CLINICAL INFORMATION: OLIGOHYDRAMNIOS COMPARISON: 02/15/2025. There is a single live intrauterine gestation in cephalic presentation. The reported gestational age is 39 weeks 3 days. The heart rate measures 139 beats per minute. FINDINGS: TONE: 1 or [...] greater than 2 cm [Y] 2/2 ZULMA: 8.3 cm. The 5th percentile 7.2 cm Total score: 8/8 US/US OB BPP w non-stress IMPRESSION: NORMAL BIOPHYSICAL PROFILE. BORDERLINE OLIGOHYDRAMNIOS. Impression dictated by: Zita Lu M.D. 02/22/2025 8:02 AM Dictation Location: [place] [address] Electronically authenticated by: [id number] Y Date: 02/22/2025 08:02 Dictated By: Zita Lu M.D. Signed By: 02/22/25804 DD/ 1 TD/TT: Marine Mammal Trainer: TORREY HealthcareRadiology Study observation (narrative)NOMS HealthcareUS OB BPP W NON-STRESSOrdered By: Radiologist Radiology on 68-31-3129PVQD Healthcare Work Phone: Urinalysis macro (dipstick) panel (U)on 02-22-2025 Bilirubin, UANegativeNegative - 4(70) +++ mg/dLNOMS HealthcareBlood, UANegative Negative - 50 Mark/mcLNOMS HealthcareClarity, UAClearNOMS HealthcareColor, UA YellowNOMS HealthcareGlucose, UANegativeNegative - 2000(110) ++++ mg/dLNOMS HealthcareInterpretation and review of laboratory resultsAbnormalNOMS Healthcare Ketones, UANegativeNegative - 160(16) ++++ mg/dLNOMS HealthcareLeukocytes, UA2+ Negative - 500+++ Mahsa/mcLNOMS HealthcareNitrite, UANegativeNegative - Positive NOMS HealthcarepH, UA7.05 - 9NOMS HealthcareProtein, UANegativeNegative - 2000(20) ++++ mg/dLNOMS HealthcareSpec Grav, UA1.0051 - 1.03NOMS Healthcare Urobilinogen, UA2.00.2 - 12 mg/dLNOMS HealthcareNOMS HealthcareOutside Recordson 54-53-6185Pgzrkpl [id number]#1.00OTGTProMedica Defiance Regional HospitalRad - Other Radiology Reporton 32-42-1297Try - Other Radiology [id number]#1.00OTGTIFFNoal [facility] SouthUS OB BPP W NON-STRESSon 95-47-3181NrpSanta [place] [address] Ultrasound Report Signed Patient: ALONDRA BEAVER MR#: [id number] : 1995 Acct:[id number] Age/Sex: 29 / F ADM Date: 02/15/25 Loc: US Attending Dr: José Lozano D.O. Ordering Physician: José Lozano D.O. Date of Service: 02/15/25 Procedure(s): US OB BPP w non-stress Accession Number(s): [id number] cc: José Lozano D.O.; Zita Alanis M.D. [place] [address] Patient Name: ALONDRA BEAVER MRN: [facility]:[id number] date: 1995 Sex: F Assigned Patient Location: [facility] Current Patient Location: Accession/Order Number: [id number] Exam Date: 02/15/2025 07:15 Report Date: 02/15/2025 [...] Lu M.D. 02/15/2025 8:08 AM Dictation Location: [place] [address] Electronically authenticated by: [id number] Y Date: 02/15/2025 08:08 Dictated By: Zita Lu M.D. Signed By: 02/15/25810 DD/ 7 TD/TT: Marine Mammal Trainer:ANDREINAHRadiology, Radiologist, - 02/15/2025 [place] [address] Ultrasound Report Signed Patient: ALONDRA BEAVER MR#: [id number] : 1995 Acct:[id number] Age/Sex: 29 / F ADM Date: 02/15/25 Loc: US Attending Dr: José Lozano D.O. Ordering Physician: José Lozano D.O. Date of Service: 02/15/25 Procedure(s): US OB BPP w non-stress Accession Number(s): [id number] cc: José Lozano D.O.; Zita Alanis M.D. [place] [address] Patient Name: ALONDRA BEAVER MRN: [facility]:[id number] date: 1995 Sex: F Assigned Patient Location: [facility] Current Patient Location: Accession/Order Number: [id number] Exam Date: 02/15/2025 07:15 Report Date: 02/15/2025 [...] lasting at least 30 seconds [Y] 2/2 ZULAM: A single deepest vertical pocket of amniotic fluid greater than 2 cm [Y] 2/2 ZULMA: 10.1 cm.) This is in low-normal range. Total score: 8/8 US/US OB BPP w non-stress IMPRESSION: NORMAL BIOPHYSICAL PROFILE Impression dictated by: Zita Lu M.D. 02/15/2025 8:08 AM Dictation Location: [place] [address] Electronically authenticated by: [id number] Y Date: 02/15/2025 08:08 Dictated By: Zita Lu M.D. Signed By: 02/15/25810 DD/ 7 TD/TT: Marine Mammal Trainer: TORREY HealthcareRadiology Study observation (narrative)NOMS HealthcareUS OB BPP W NON-STRESSOrdered By: Radiologist Radiology on 23-89-6491NMWB Healthcare Work Phone: Urinalysis macro (dipstick) panel (U)on 02-15-2025 Bilirubin, UANegativeNegative - 4(70) +++ mg/dLNOMS HealthcareBlood, UANegative Negative - 50 Mark/mcLNOMS HealthcareClarity, UAClearNOMS HealthcareColor, UA YellowNOMS HealthcareGlucose, UANegativeNegative - 2000(110) ++++ mg/dLNOMS HealthcareInterpretation and review of laboratory resultsAbnormalNOIN Healthcare Ketones, UANegativeNegative - 160(16) ++++ mg/dLNOMS HealthcareLeukocytes, UA PositiveNegative - 500+++ Mahsa/mcLNOMS HealthcareComment on above:1+Nitrite, UA NegativeNegative - PositiveNOMS HealthcarepH, UA65 - 9NOMS HealthcareProtein, UA NegativeNegative - 2000(20) ++++ mg/dLNOMS HealthcareSpec Grav, UA1.011 - 1.03 NOMS HealthcareUrobilinogen, UA0.20.2 - 12 mg/dLNOIN HealthcareNOIN Healthcare Rad - Other Radiology Reporton 16-86-4011Vpo - Other Radiology Report [id number]#1.00OTGTIFFMercy Health Springfield Regional [facility] Center OB BPP W NON-STRESSon 68-63-5741GdoSanta [place] [address] Ultrasound Report Signed Patient: ALONDRA BEAVER MR#: [id number] : 1995 Acct:[id number] Age/Sex: 29 / F ADM Date: 02/08/25 Loc: US Attending Dr: José Lozano D.O. Ordering Physician: José Lozano D.O. Date of Service: 02/08/25 Procedure(s): US OB BPP w non-stress Accession Number(s): [id number] cc: José Lozano D.O.; Zita Alanis M.D. [place] [id number] Patient Name: ALONDRA BEAVER MRN: [id number] date: 1995 Sex: F Assigned Patient Location: [facility] Current Patient Location: [facility] Accession/Order Number: [id number] Exam Date: 02/08/2025 07:10 Report Date: 02/08/2025 [...] Lu M.D. 02/08/2025 9:24 AM Dictation Location: [place] [address] Electronically authenticated by: [id number] Y Date: 02/08/2025 09:24 Dictated By: Zita Lu M.D. Signed By: 02/08/25926 DD/ 3 TD/TT: Marine Mammal Trainer:ANDREINAHRadiology, Radiologist, - 02/08/2025 [place] [address] Ultrasound Report Signed Patient: ALONDRA BEAVER MR#: [id number] : 1995 Acct:[id number] Age/Sex: 29 / F ADM Date: 02/08/25 Loc: US Attending Dr: José Lozano D.O. Ordering Physician: José Lozano D.O. Date of Service: 02/08/25 Procedure(s): US OB BPP w non-stress Accession Number(s): [id number] cc: José Lozano D.O.; Zita Alanis M.D. [place] [address] Patient Name: ALONDRA BEAVER MRN: [facility]:[id number] date: 1995 Sex: F Assigned Patient Location: [facility] Current Patient Location: [facility] Accession/Order Number: [id number] Exam Date: 02/08/2025 07:10 Report Date: 02/08/2025 [...] Lu M.D. 02/08/2025 9:24 AM Dictation Location: [place] [address] Electronically authenticated by: [id number] Y Date: 02/08/2025 09:24 Dictated By: Zita Lu M.D. Signed By: 02/08/25926 DD/ 3 TD/TT: Marine Mammal Trainer: TORREY HealthcareRadiology Study observation (narrative)NOMS HealthcareUS OB BPP W NON-STRESSOrdered By: Radiologist Radiology on 27-82-6117AGXR Healthcare Work Phone: Urinalysis macro (dipstick) panel [...] mg/dLNOMS HealthcareNOMS HealthcareUS OB BPP W NON-STRESSon 90-52-3936XidSanta [place] [address] Ultrasound Report Signed Patient: ALONDRA BEAVER MR#: [id number] : 1995 Acct:[id number] Age/Sex: 29 / F ADM Date: 02/01/25 Loc: US Attending Dr: José Lozano D.O. Ordering Physician: José Lozano D.O. Date of Service: 02/01/25 Procedure(s): US OB BPP w non-stress Accession Number(s): [id number] cc: José Lozano D.O.; Zita Alanis M.D. The [address] [address] Patient Name: ALONDRA BEAVER MRN: [facility]:[id number] date: 1995 Sex: F Assigned Patient Location: [facility] Current Patient Location: Accession/Order Number: [id number] Exam Date: 02/01/2025 07:05 Report Date: 02/01/2025 08:47 At the request of: JOSÉ LOZANO DO Procedure: US OB BPP w non-stress Biophysical profile. Reason for exam: Borderline low ZULMA COMPARISON: 01/25/2025 TECHNIQUE: Transabdominal imaging of the gravid uterus was obtained. FINDINGS: The director of photography reports a BPP of 8 out of 8. ZULMA is normal at 12.1 cm. heart rate 150 bpm. US/US OB BPP w non-stress IMPRESSION: BPP 8 out of 8. Impression dictated by: Terry Puentes Jr., D.O. 02/01/2025 8:47 AM Dictation Location: [place] [address] Electronically authenticated by: [id number] Y Date: 02/01/2025 08:47 Dictated By: Terry Puentes M.D. Signed By: 02/01/25 0849 DD/ TD/TT: Marine Mammal Trainer:TBHRadiology, Radiologist, MD - 02/01/2025 [place] [address] Ultrasound Report Signed Patient: ALONDRA BEAVER MR#: [id number] : 1995 Acct:[id number] Age/Sex: 29 / F ADM Date: 02/01/25 Loc: US Attending Dr: José Lozano D.O. Ordering Physician: José Lozano D.O. Date of Service: 02/01/25 Procedure(s): US OB BPP w non-stress Accession Number(s): [id number] cc: José Lozano D.O.; Zita Alanis M.D. The [address] [address] Patient Name: ALONDRA BEAVER MRN: [facility]:[id number] date: 1995 Sex: F Assigned Patient Location: [facility] Current Patient Location: Accession/Order Number: [id number] Exam Date: 02/01/2025 07:05 Report Date: 02/01/2025 08:47 At the request of: JOSÉ LOZANO DO Procedure: US OB BPP w non-stress Biophysical profile. Reason for exam: Borderline low ZULMA COMPARISON: 01/25/2025 TECHNIQUE: Transabdominal imaging of the gravid uterus was obtained. FINDINGS: The director of photography reports a BPP of 8 out of 8. ZULMA is normal at 12.1 cm. heart rate 150 bpm. US/US OB BPP w non-stress IMPRESSION: BPP 8 out of 8. Impression dictated by: Terry Puentes Jr., D.O. 02/01/2025 8:47 AM Dictation Location: [place] [address] Electronically authenticated by: [id number] Y Date: 02/01/2025 08:47 Dictated By: Terry Puentes M.D. Signed By: 02/01/2549 DD/ 6 TD/TT: Marine Mammal Trainer: TORREY HealthcareRadiology Study observation (narrative)NOMApurva ShaikhUS OB BPP W NON-STRESSOrdered By: Radiologist Radiology on 81-81-1009QEOB Healthcare Work Phone: Urinalysis macro (dipstick) panel [...] - 1.03 NOMS HealthcareUrobilinogen, UA0.20.2 - 12 mg/dLNOVernon Memorial Hospital Rad - Other Radiology Reporton 91-67-9795Ysv - Other Radiology Report [id number]#1.00OTGTCincinnati Shriners Hospital OB BPP W NON-STRESSon 06-66-2237[place] [address] Ultrasound Report Signed Patient: ALONDRA BEAVER MR#: [id number] : 1995 Acct:[id number] Age/Sex: 29 / F ADM Date: 01/25/25 Loc: US Attending Dr: José Lozano D.O. Ordering Physician: José Lozano D.O. Date of Service: 01/25/25 Procedure(s): US OB BPP w non-stress Accession Number(s): [id number] cc: José Lozano D.O.; Zita Alanis M.D. [place] [address] Patient Name: ALONDRA BEAVER MRN: [id number] date: 1995 Sex: F Assigned Patient Location: [facility] Current Patient Location: Accession/Order Number: [id number] Exam Date: 01/25/2025 07:01 Report Date: 01/25/2025 [...] Lu M.D. 01/25/2025 8:50 AM Dictation Location: [place] [address] Electronically authenticated by: [id number] Y Date: 01/25/2025 08:50 Dictated By: Zita Lu M.D. Signed By: 01/25/25 0852 DD/ 0850 TD/TT: Marine Mammal Trainer:ANDREINAHRadiology, Radiologist, - 01/25/2025 [place] [address] Ultrasound Report Signed Patient: ALONDRA BEAVER MR#: [id number] : 1995 Acct:[id number] Age/Sex: 29 / F ADM Date: 01/25/25 Loc: US Attending Dr: José Lozano D.O. Ordering Physician: José Lozano D.O. Date of Service: 01/25/25 Procedure(s): US OB BPP w non-stress Accession Number(s): [id number] cc: José Lozano D.O.; Zita Alanis M.D. The [place] [address] Patient Name: ALONDRA BEAVER MRN: [facility]:[id number] date: 1995 Sex: F Assigned Patient Location: [facility] Current Patient Location: Accession/Order Number: [id number] Exam Date: 01/25/2025 07:01 Report Date: 01/25/2025 [...] Lu M.D. 01/25/2025 8:50 AM Dictation Location: [place] Electronically authenticated by: [id number] Y Date: 01/25/2025 08:50 Dictated By: Zita Lu M.D. Signed By: 01/25/25 0852 DD/ TD/TT: Marine Mammal Trainer: [facility] HealthcareRadiology Study observation (narrative)[facility] HospitalUS OB BPP W NON-STRESSOrdered By: Radiologist Radiology on 46-99-8774KGHM Healthcare Work Phone: US OB BPP W NON-STRESSon 10-74-3399[place] [address] Ultrasound Report Signed Patient: ALONDRA BEAVER MR#: [id number] : 1995 Acct:[id number] Age/Sex: 29 / F ADM Date: 01/18/25 Loc: US Attending Dr: José Lozano D.O. Ordering Physician: José Lozano D.O. Date of Service: 01/18/25 Procedure(s): US OB BPP w non-stress Accession Number(s): [id number] cc: José Lozano D.O.; Zita Aalnis M.D. The [place] [id number] Patient Name: ALONDRA BEAVER MRN: [id number] date: 1995 Sex: F Assigned Patient Location: [facility] Current Patient Location: US Accession/Order Number: [id number] Exam Date: 01/18/2025 07:04 Report Date: 01/18/2025 [...] Lu M.D. 01/18/2025 8:45 AM Dictation Location: [place] [address] Electronically authenticated by: [id number] Y Date: 01/18/2025 08:45 Dictated By: Zita Lu M.D. Signed By: 01/18/2548 DD/ TD/TT: Marine Mammal Trainer:TBHRadiology, Radiologist, - 01/18/2025 [place] [address] Ultrasound Report Signed Patient: ALONDRA BEAVER MR#: [id number] : 1995 Acct:[id number] Age/Sex: 29 / F ADM Date: 01/18/25 Loc: US Attending Dr: José Lozano D.O. Ordering Physician: José Lozano D.O. Date of Service: 01/18/25 Procedure(s): US OB BPP w non-stress Accession Number(s): [id number] cc: José Lozano D.O.; Zita Alanis M.D. [place] [address] Patient Name: ALONDRA BEAVER MRN: [id number] date: 1995 Sex: F Assigned Patient Location: [facility] Current Patient Location: US Accession/Order Number: [id number] Exam Date: 01/18/2025 07:04 Report Date: 01/18/2025 [...] Lu M.D. 01/18/2025 8:45 AM Dictation Location: [place] [address] Electronically authenticated by: [id number] Y Date: 01/18/2025 08:45 Dictated By: Zita Lu M.D. Signed By: 01/18/2548 DD/ 4 TD/TT: Marine Mammal Trainer: TORREY HealthcareRadiology Study observation (narrative)TORREY HealthcareUS OB BPP W NON-STRESSOrdered By: Radiologist Radiology on 91-74-3124FZOT Healthcare Work Phone: Urinalysis macro (dipstick) panel [...] - 12 mg/dLNOMS HealthcareNOMS Healthcare Outside Recordson 75-51-4082Vxcekkv Records [id number]#1.00OTGTHarrison Community Hospital Outside [id number]#[address] [facility] OB BPP W NON-STRESSon 58-26-5563[address] [address] Ultrasound Report Signed Patient: ALONDRA BEAVER MR#: [id number] : 1995 Acct:[id number] Age/Sex: 29 / F ADM Date: 01/08/25 Loc: US Attending Dr: José Lozano D.O. Ordering Physician: José Lozano D.O. Date of Service: 01/08/25 Procedure(s): US OB BPP w non-stress Accession Number(s): [id number] cc: José Lozano D.O.; Zita Alanis M.D. The [address] [address] Patient Name: ALONDRA BEAVER MRN: [id number] date: 1995 Sex: F Assigned Patient Location: Current Patient Location: [facility] Accession/Order Number: [id number] Exam Date: 01/08/2025 12:03 Report Date: 01/08/2025 12:44 At the request of: JOSÉ LOZANO DO Procedure: US OB BPP w non-stress Biophysical profile. Reason for exam: Abnormal BPP. COMPARISON: 01/04/2025 TECHNIQUE: Transabdominal imaging of the gravid uterus was obtained. FINDINGS: The director of photography reports a BPP of 8 out of 8. ZULMA is normal at 14.8 cm. heart rate 135 bpm. US/US OB BPP w non-stress IMPRESSION: BPP 8 out of 8. Impression dictated by: Terry Puentes Jr., D.O. 01/08/2025 12:44 PM Dictation Location: [place] [address] Electronically authenticated by: [id number] Y Date: 01/08/2025 12:44 Dictated By: Terry Puentes M.D. Signed By: 01/08/25 1246 DD/ 1244 TD/TT: Marine Mammal Trainer:ANDREINAHRadiology, Radiologist, - 01/08/2025 [place] [address] Ultrasound Report Signed Patient: ALONDRA BEAVER MR#: [id number] : 1995 Acct:[id number] Age/Sex: 29 / F ADM Date: 01/08/25 Loc: US Attending Dr: José Lozano D.O. Ordering Physician: José Lozano D.O. Date of Service: 01/08/25 Procedure(s): US OB BPP w non-stress Accession Number(s): [id number] cc: José Lozano D.O.; Zita Alanis M.D. The [place] [address] Patient Name: ALONDRA BEAVER MRN: [id number] date: 1995 Sex: F Assigned Patient Location: US Current Patient Location: [facility] Accession/Order Number: [id number] Exam Date: 01/08/2025 12:03 Report Date: 01/08/2025 12:44 At the request of: JOSÉ LOZANO DO Procedure: US OB BPP w non-stress Biophysical profile. Reason for exam: Abnormal BPP. COMPARISON: 01/04/2025 TECHNIQUE: Transabdominal imaging of the gravid uterus was obtained. FINDINGS: The director of photography reports a BPP of 8 out of 8. ZULMA is normal at 14.8 cm. heart rate 135 bpm. US/US OB BPP w non-stress IMPRESSION: BPP 8 out of 8. Impression dictated by: Terry Puentes Jr., D.O. 01/08/2025 12:44 PM Dictation Location[facility] Electronically authenticated by: [id number] Y Date: 01/08/2025 12:44 Dictated By: Terry Puentes M.D. Signed By: 01/08/25 1246 DD/ 1244 TD/TT: Marine Mammal Trainer: TORREY HealthcareRadiology Study observation (narrative)NOMS HealthcareUS OB BPP W NON-STRESSOrdered By: Radiologist Radiology on 46-20-4951KPPP [employer] Work Phone: US OB BPP W NON-STRESSon 29-00-5076[place] [address] Ultrasound Report Signed Patient: ALONDRA BEAVER MR#: [id number] : 1995 Acct:[id number] Age/Sex: 29 / F ADM Date: 01/04/25 Loc: US Attending Dr: José Lozano D.O. Ordering Physician: José Lozano D.O. Date of Service: 01/04/25 Procedure(s): US OB BPP w non-stress Accession Number(s): [id number] cc: José Lozano D.O.; Zita Alanis M.D. The [address] [address] Patient Name: ALONDRA BEAVER MRN: [id number] date: 1995 Sex: F Assigned Patient Location: [facility] Current Patient Location: Accession/Order Number: [id number] Exam Date: 01/04/2025 07:10 Report Date: 01/04/2025 10:27 At the request of: JOSÉ LOZANO DO Procedure: US OB BPP w non-stress BIOPHYSICAL PROFILE: CLINICAL INFORMATION: ZULMA BORDERLINE LOW O28.8 COMPARISON: None There is a single live intrauterine gestation in cephalic presentation. The reported gestational age is 32 weeks 3 days. The heart rate lihfxfue428 beats per minute. FINDINGS: TONE: 1 or [...] 01/04/2025 10:27 AM Dictation Location: [place] [address] Electronically authenticated by: [id number] Y Date: 01/04/2025 10:27 Dictated By: Zita Lu M.D. Signed By: 01/04/25 1030 DD/ 1027 TD/TT: Marine Mammal Trainer:ANDREINAHRadiology, Radiologist, - 01/04/2025 [place] [address] Ultrasound Report Signed Patient: ALONDRA BEAVER MR#: [id number] : 1995 Acct:[id number] Age/Sex: 29 / F ADM Date: 01/04/25 Loc: US Attending Dr: José Lozano D.O. Ordering Physician: José Lozano D.O. Date of Service: 01/04/25 Procedure(s): US OB BPP w non-stress Accession Number(s): [id number] cc: José Lozano D.O.; Zita Alanis M.D. [place] [id number] Patient Name: ALONDRA BEAVER MRN: [id number] date: 1995 Sex: F Assigned Patient Location: [facility] Current Patient Location: Accession/Order Number: [id number] Exam Date: 01/04/2025 07:10 Report Date: 01/04/2025 10:27 At the request of: JOSÉ LOZANO DO Procedure: US OB BPP w non-stress BIOPHYSICAL PROFILE: CLINICAL INFORMATION: ZULMA BORDERLINE LOW O28.8 COMPARISON: None There is a single live intrauterine gestation in cephalic presentation. The reported gestational age is 32 weeks 3 days. The heart rate kstcqzry043 beats per minute. FINDINGS: TONE: 1 or [...] 01/04/2025 10:27 AM Dictation Location: [place] [address] Electronically authenticated by: [id number] Y Date: 01/04/2025 10:27 Dictated By: Zita Lu M.D. Signed By: 01/04/25 1030 DD/ 1027 TD/TT: Marine Mammal Trainer: TORREY HealthcareRadiology Study observation (narrative)NOMApurva HealthcareUS OB BPP W NON-STRESSOrdered By: Radiologist Radiology on 23-11-7141JXDL Healthcare Work Phone: Urinalysis macro (dipstick) panel [...] HealthcareNOMS HealthcareUS OB FOLLOW UP TRANSABDOMINAL APPROACHon 56-01-1602IK OB FOLLOW UP TRANSABDOMINAL APPROACHFINDINGS: Comparison made [...] Delivery: 02/26/25 Gestational Age as of 12/05/2024: 53e8hQdjrbbmzyk macro (dipstick) panel (U) Ordered By: Teresa Ambriz on 99-20-3570Tsqrnxnvv, UANegativeNegative - 4(70) +++ mg/dLNOMS HealthcareBlood, UANegativeNegative [...] 12 mg/dLNOMS HealthcareNOMS HealthcareGLUCOSE TOLERANCE 3 HOURon 05-64-6514LFKILNA TOLERANCE 3 HOURmg/dLNOMS HealthcareComment on above:GLU FAST 93 (<95) Col: 11/28/24 0641 GLU 1HR 149 (<180) Col: 11/28/24 0743 GLU 2HR 118 (<155) Col: 11/28/24 0843 GLU 3HR 81 (<140) Col: 11/28/24 0942 CLINISYNCNOMS HealthcareALL CBC WITH AUTO DIFFon 43-53-5370HKSMORMUL ABSOLUTE ITRJ9NSYQ HealthcareBasophils/100 WBC (Bld)0.4 %0.2 - 2.0 %[facility] Eosinophils/100 WBC (Bld)1.2 %0.9 - 7.0 %NOMS HealthcareErythrocyte distribution width (RBC) [Ratio]13 %11.0 - 15.0 %[facility] HealthcareHematocrit (Bld) [Volume fraction]35.6 %Low36.0 - 48.0 %[facility] HealthcareHemoglobin (Bld) [Mass/Vol]11.9 g/dLLow12.0 - 16.0 g/dLHermann Area District HospitalIMMATURE GRANULOCYTES ABS AUTO0.13HighNOCox SouthImmature granulocytes/100 WBC (Bld)1.2 %High0.0 - 0.5 %[facility] HealthcareInterpretation and review of laboratory resultsAbnormSt. Luke's University [facility] Network LYMPHOCYTES ABSOLUTE AUTO1.3NOCox SouthLymphocytes/100 WBC (Bld)11.6 %Low 20.5 - 60.0 %[facility] CenterH (RBC) [Entitic mass]30.9 pg26.7 - 34.0 pgSSM DePaul Health Center (RBC) [Mass/Vol]33.4 g/dL29.9 - 35.2 g/dLHermann Area District HospitalMCV (RBC) [Entitic vol]92.5 fL81.0 - 99.0 fLHermann Area District HospitalMONOCYTES ABSOLUTE AUTO0.5NOIN HealthcareMonocytes/100 WBC (Bld)4.9 %1.7 - 12.0 %[facility] HospitalNEUTROPHILS ABSOLUTE AUTO8.8HighNOCox SouthNeutrophils/100 WBC (Bld)80.7 %High43.0 - 75.0 %[facility] District HospitalPlatelet mean volume (Bld) [Entitic vol]10.5 fL9.5 - 13.5 fLHermann Area District HospitalTB EO #0.1NOMS [facility] HospitalTB ENG851NXET [facility] RBC3.85 LowNOCrossroads Regional Medical Center WBC10.9H[facility] Area District HospitalCLINISYNCNOzarks Community HospitalUrinalysis macro (dipstick) panel (U)on 01-92-0112Iieeqayeq, UANegativeNegative - 4(70) +++ mg/dLNOIN HealthcareBlood, UANegativeNegative - 50 Mark/mcLNOIN Healthcare Clarity, UAClearNOMS HealthcareColor, UAYellowNOMS HealthcareGlucose, UANegative Negative - 2000(110) ++++ mg/dLTHE [facility] HealthcareInterpretation and review of laboratory resultsAbnormalNOMS HealthcareKetones, [...] HealthcareNOMS HealthcareUS OB 14+ WEEKS ANATOMY SCANon 23-86-6391IM OB 14+ WEEKS ANATOMY SCANEXAM: US OB [...] anatomy. Interpreted by: Electronically signed by LEONIDAS NICOEL II, MD, PHD at 27-Oct-2024 06:14:52 AM [facility] [place] TeleradiologyNormalNot AvailableComment on above:Order Comment: US OB ANATOMY SINGLE W US OB CERVICAL LENGTH Estimated Date of Delivery: 02/26/25 Gestational Age as of 09/28/2024: 53s1aHXJ TESTon 05-58-1049OEH TEST SENT OUT UNITYNOMS LofarzccziOGC3CEDXHLEUI JpcpvridfmBJL90-27-62SEAH HealthcareUNITY BOX CLINISYNCNOMS HealthcareUrinalysis macro (dipstick) panel (U)on 08-29-2024 Bilirubin, UANegativeNegative - 4(70) +++ mg/dLNOMS HealthcareBlood, UANegative Negative - 50 Mark/mcLNOMS HealthcareClarity, UAClearNOMS HealthcareColor, UA YellowNOMS HealthcareGlucose, UANegativeNegative - 2000(110) ++++ mg/dLNOMS HealthcareInterpretation and review of laboratory resultsNormalHermann Area District Hospital Ketones, UANegativeNegative - 160(16) ++++ mg/dLNOIN HealthcareLeukocytes, UA NegativeNegative - 500+++ Mahsa/mcLNOIN HealthcareNitrite, UANegativeNegative - PositiveNOMS HealthcarepH, UA65 - 9NOMS HealthcareProtein, UANegativeNegative - 2000(20) ++++ mg/dLNOMS HealthcareSpec Grav, UA1.021 - 1.03NOIN Healthcare Urobilinogen, UA0.20.2 - 12 mg/dLNONortheast Regional Medical Center HealthcareHCG ( test) Ql (U)on 95-87-7731Nnolfytqcckhus and review of laboratory resultsAbnormal NOMS HealthcarePreg Test, UrPositiveNegativeNOCox SouthNOIN HealthcareUS OB < 14 WEEKS EARLYon 40-85-9476IV OB < 14 WEEKS EARLYEXAM: US OB [...] at 11-Aug-2024 08:40:37 AM [facility] [place] TeleradiologyNormalNot AvailableComment on above:Order Comment: US OB Patient's last menstrual period was 05/09/2024 (exact date).Urinalysis macro (dipstick) panel (U)on 02-80-9266Bfnzoctuu, UANegativeNegative - 4(70) +++ mg/dL NOMS HealthcareBlood, UANegativeNegative - 50 Mark/mcLNOMS HealthcareClarity, UA ClearNOMS HealthcareColor, UAYellowNOMS HealthcareGlucose, UANegativeNegative - 2000(110) ++++ mg/dLNOIN HealthcareInterpretation and review of laboratory resultsAbnormalTHE [facility] HealthcareKetones, UAPositiveNegative - 160(16) ++++ mg/dL NOMS HealthcareComment on above:40Leukocytes, UANegativeNegative - 500+++ Mahsa/mcLNOMS HealthcareNitrite, UANegativeNegative - PositiveNOMS HealthcarepH, UA5.55 - 9NOMS HealthcareProtein, UANegativeNegative - 2000(20) ++++ mg/dLNOIN HealthcareSpec Grav, UA1.021 - 1.03NOIN HealthcareUrobilinogen, UA0.20.2 - 12 mg/dLNOIN HealthcareNOIN HealthcareOutside Recordson 01-36-8457Kzojxyu Records [id number]#1.00[facility] Outside Recordson 28-90-7974Iaffhwy Records [id number]#1.00[facility] Consent Formson 62-00-6952Qaetdhn Forms [id number]#1.00[facility] Cytology Cervical or vaginal smear or scraping studyon 42-99-4133VXOFHermann Area District Hospital HCG ( test) Ql (U)on 37-10-9611Gnmqymakljbbac and review of laboratory resultsNormUniversity [facility] HealthcarePreg Test, UrNegativeNOMS [facility] Community HospitalNOIN Healthcare CMP Standardon 32-41-5313mWVZ Non AA>60Invalid Interpretation [facility] HospitalComment on above:Performed By: #### [id number], [id number], 6620993, 5068703, 6815429, 4977240, 7429479 #### [facility] (DEFAULT) [address] [place] [address] 70815eNPC AA>60Invalid Interpretation [facility] Comment on above:Performed By: #### [id number], 7940335647, 8895692, 2050152, 6914090, 0736294, 4622609 #### [facility] (DEFAULT) [address] [place] [address] 46182Pvefitu [Mass/Vol]4.4 g/dLNormal3.5-5.0[facility] Comment on above:Performed By: #### [id number], 2302448511, 7516590, 4578117, 8861068, 1115091, 0786476 #### [facility] (DEFAULT) [address] [place] [address] 31096Guylqki/Globulin [Mass ratio]1.4 {ratio}Normal1.4-2.6 [facility] SouthComment on above:Performed By: #### [id number], 4807236963, 0617125, 3541368, 8366485, 5548940, 8783037 #### [facility] (DEFAULT) [address] [place] [address] 63621Hpn Phos67 IU/WTcjqzf68-24Sspkcpax HospitalComment on above:Performed By: #### [id number], 3711682182, 7367250, 3761492, 0374084, 4293922, 6131821 #### [facility] (DEFAULT) [address] [place] [address] 80751AIX [Catalytic activity/Vol]19.0 U/EDadszn31.0-54.0 [facility] SouthComment on above:Performed By: #### [id number], 0582763746, 5305069, 3635159, 5502299, 6288928, 2992880 #### [facility] (DEFAULT) [address] [place] [address] 03447Vhlnp gap [Moles/Vol]10.8 mmol/LNormal5.0-19.0[facility] - [facility] SouthComment on above:Performed By: #### [id number], 6323081053, 0460622, 2162739, 3520680, 8401918, 8825721 #### [facility] (DEFAULT) [address] [place] [address] 81854ABB [Catalytic activity/Vol]21 U/OJxpdxx01-79Rldspcsg HospitalComment on above:Performed By: #### [id number], 5050584632, 6629010, 4935109, 8226207, 3012705, 5051930 #### [facility] (DEFAULT) [address] [place] [address] 11753Rbqc Total0.7 mg/dLNormal0.3-1.2MMercy Health St. Elizabeth Boardman HospitalComment on above:Performed By: #### [id number], 2869152717, 2122972, 1673809, 4706863, 1394770, 3068924 #### [facility] (DEFAULT) [address] [place] [address] 03080Vlgnsve [Mass/Vol]8.9 mg/dLNormal8.9-10.3MMercy Health St. [facility] Comment on above:Performed By: #### [id number], 6169864307, 9600120, 9325121, 6055136, 3844594, 7025123 #### [facility] (DEFAULT) [address] [place] [address] 41035Qgsuhpgp [Moles/Vol]100 mmol/NUdo097-463Nvgezfwj Hospital Comment on above:Performed By: #### [id number], 4929246223, 2318162, 3013743, 8705939, 2513668, 8003350 #### [facility] (DEFAULT) [address] [place] [address] 41260QF1 [Moles/Vol]26 mmol/TAwyalb41-40Nrzpvccx Hospital Comment on above:Performed By: #### 5256085303, 2185735981, 0011433, 0798334, 5879339, 6164378, 1026035 #### [facility] (DEFAULT) [address] [place] [address] 56947Ltbpkmqzis [Mass/Vol]0.86 mg/dLNormal0.60-1.30[facility] HospitalComment on above:Performed By: #### [id number], 1238607950, 0738725, 5480694, 5587767, 6257300, 2944754 #### [facility] (DEFAULT) [address] [place] [address] 40839Eawbbghb (S) [Mass/Vol]3.1 g/dLNormal1.5-4.3Mpeoples hospital HospitalComment on above:Performed By: #### [id number], 9902909799, 4947260, 6008346, 4407121, 7596577, 2203007 #### [facility] (DEFAULT) [address] [place] [address] 68680Ufouuck [Mass/Vol]90.0 mg/nLVxwvhl73.0-118.0[facility] HospitalComment on above:Performed By: #### [id number], 8979928865, 2403205, 3820238, 5094404, 2012044, 7649313 #### [facility] (DEFAULT) [address] [place] [address] 73421Kizbmqymjo837 mOsm/LInvalid Interpretation CodeFisher-Titus Medical Center HospitalComment on above:Performed By: #### [id number], 2064493882, 2526871, 1025562, 1651265, 3001930, 9934063 #### [facility] (DEFAULT) [address] [place] [address] 56049Rpycelsap [Moles/Vol]3.8 mmol/LNormal3.6-5.1Mpeoples hospital HospitalComment on above:Performed By: #### [id number], 0585993632, 2213970, 8069999, 0836238, 1468059, 9647365 #### [facility] (DEFAULT) [address] [place] [address] 34169Fsozixi [Mass/Vol]7.5 g/dLNormal6.5-8.1Mpeoples hospital Hospital Comment on above:Performed By: #### [id number], 9079772993, 6242888, 1041453, 3928534, 8122391, 8754982 #### [facility] (DEFAULT) [address] [place] [address] 71219Bcccpg [Moles/Vol]133.0 mmol/BQrn467.0-144.0[facility] HospitalComment on above:Performed By: #### [id number], 0404667257, 2387724, 5822732, 0634170, 1304318, 4586309 #### [facility] (DEFAULT) [address] [place] [address] 84565Plgq nitrogen [Mass/Vol]17 mg/dLNormal8-[facility] HospitalComment on above:Performed By: #### 4686075737, 0722740837, 2590862, 4430011, 6834795, 6669880, 3500645 #### [facility] (DEFAULT) [address] [place] [address] 71545Ynbg nitrogen/Creatinine [Mass ratio]19.7 mg/mgHigh 4.6-16.2Mpeoples hospital HospitalComment on above:Performed By: #### [id number], 1353608795, 6394247, 8883786, 5506469, 2949782, 1458190 #### [facility] (DEFAULT) [address] [place] [address] 87165JHPxe 74-74-8703Mutnb glutamyl transferase [Catalytic activity/Vol]20.0 U/LNormal7.0-50.0[facility] SouthComment on above:Performed By: #### [id number], [id number], [id number], 3686841, 2830203, 9372949, 1978714 #### [facility] (DEFAULT) [address] [place] [address] 07517Xcfl Levelon 99-25-6917Iary [Mass/Vol]93.0 ug/dLNormal 28.0-170.0[facility] HospitalComment on above:Performed By: #### [id number], [id number], 9692224, 2945569, 5799548, 5034758, 0486278 #### [facility] (DEFAULT) [address] [place] [address] 57101UOAfy 58-76-4511ODL386.0 IU/GRjityo63.0-192.0[facility] HospitalComment on above:Performed By: #### [id number], [id number], 2069840, 9573978, 7115539, 8839999, 9766003 #### [facility] (DEFAULT) [address] [place] [address] 54485Zjhzg Panel Standardon 65-96-9752Tjqtltspmil [Mass/Vol] 214.0 mg/vHRvtm08.0-200.0[facility] HospitalComment on above:Performed By: #### [id number], [id number], 2211683, 2689617, 1811923, 8543397, 6331855 #### [facility] (DEFAULT) [address] [place] [address] 02366Wwshlmemgcv in HDL [Mass/Vol]64 mg/zERvfleq72-72G[facility]u HospitalComment on above:Performed By: #### [id number], [id number], 0058940, 6868775, 0618422, 5787616, 6643565 #### [facility] (DEFAULT) [address] [place] [address] 05064Amjmiqzfhjf in LDL [Mass/Vol]144 mg/dLHigh1-100[facility] HospitalComment on above:Performed By: #### [id number], [id number], [id number], [id number], [id number], [id number], [id number] #### [facility] (DEFAULT) [address] [place] [address] [id number].total/Cholesterol in HDL [Mass ratio]3.3 {ratio}Normal0.0-4.5[facility] HospitalComment on above:Performed By: #### [id number], [id number], [id number], [id number], [id number], [id number], [id number] #### [facility] (DEFAULT) [address] [place] [address] 43879Dcihdxlfuzuo [Mass/Vol]28.0 mg/dLNormal0.0-150.0[facility] HospitalComment on above:Performed By: #### [id number], [id number], [id number], [id number], [id number], [id number], [id number] #### [facility] [address] [place] [address] 56905AHMT.6 mg/dLNormal5-40[facility]uder HospitalComment on above: Performed By: #### [id number], [id number], [id number], [id number], [id number], [id number], [id number] #### [facility] (DEFAULT) [address] [place] [address] 04771Ndwwhb 68-86-4090Rczignttz [Mass/Vol]2.9 mg/dLNormal 2.5-4.6[facility] HospitalComment on above:Performed By: #### [id number], [id number], [id number], [id number], [id number], [id number], [id number] #### [facility] [address] [place] [address] 58731Ntsf Acidon 87-00-5730Upulp [Mass/Vol]4.0 mg/dLNormal 2.6-8.0[facility] HospitalComment on above:Performed By: #### [id number], [id number], [id number], [id number], [id number], 4060935, [id number] #### [facility] (DEFAULT) [address] [place] [address] 50813XV chest 2V*on 12-58-0990VG chest 2V*[facility] Main [address] [address] XRay Report Signed Patient: Alondra Sanches MR#: [id number] : 1995 Acct:[id number] Age/Sex: 27 / F ADM Date: 03/02/23 Loc: XDSHC Room: Type: [facility] Attending Dr: Lisandro Buitrago DO Copies to: Lisandro Buitrago DO Ordering Provider: Lisandro Buitrago DO Date of Service: 03/02/23 XR/XR shoulder LT min 2V*: Left shoulder pain ([id number]) XR/XR chest 2V*: Left shoulder pain;Chest pain [...] CLAVICLE. Impression dictated by: Terry Puentes Jr., EnidOReese03/02/2023 4:13 PM Dictation Location: [place] [address] Transcribed By: [facility] 03/02/231612 Dictated By: Terry Puentes Jr, DO 03/02/231611 Signed By: 03/02/23 1613[facility] CenterCB W MANUAL DIFFon 97-52-2315AMKNLUIZ LYMPH #NormalThe [facility] Medical CenterComment on above:Performed By: #### YASMIN #### [facility] [address] [place] [address] Dr. Susannah BensonYPICAL LYMPH %NormalThe [facility] Medical CenterComment on above: Performed By: #### YASMIN #### [facility] [address] [place] [address] Dr. Susannah Nice #0.3 103/ulNormal0.0-0.3The [facility] CenterComment on above:Performed By: #### YASMIN #### [facility] [address] [place] [address] Dr. Susannah Nice %2 %Normal0-5The [facility] CenterComment on above:Performed By: #### YASMIN #### [facility] [address] [place] [address] Dr. Susannah Lopez #0.00 103/ulNormal0.00-0.10The [facility] CenterComment on above:Performed By: #### CBCOCTAVIANO #### [facility] [address] [place] [address] Dr. Susannah Lopez %0.0 %Critically low0.2-2.0The [facility] CenterComment on above:Performed By: #### CBCMAN #### [facility] [address] [place] [address] Dr. Susannah Santizo #NormalThe [facility] Medical CenterComment on above:Performed By: #### CBCOCTAVIANO #### [facility] [address] [place] [address] Dr. Susannah Santizo %NormalThe [facility] CenterComment on above:Performed By: #### CBCOCTAVIANO #### [facility] [address] [place] [address] Dr. Susannah HopkinsCORRECTED WBCNormal4.0-11.0The [facility] CenterComcorewell health [facility] on above: Performed By: #### CBCOCTAVIANO #### [facility] [address] [place] [address] Dr. Susannah Luis #0.00 103/ulNormal0.00-0.70The [facility] Medical CenterComcorewell health blodgett hospital on above:Performed By: #### YASMIN #### [facility] [address] [place] [address] Dr. Susannah Luis%0.0 %Critically low0.9-7.0The [facility] CenterComment on above:Performed By: #### CBCMAN #### [facility] [address] [place] [address] Dr. Susannah HopkinsHCT46.0 %Tsdgvz10.0-48.0The [facility] CenterComment on above: Performed By: #### CBCMAN #### [facility] [address] [place] [address] Dr. Susannah HopkinsHGB15.7 g/yeGzmcnw50.0-16.0The [facility] CenterComment on above: Performed By: #### CBCMAN #### [facility] [address] [address] [address] Susannah Rodriguez #0.69 103/ulCritically low1.20-3.80The [facility] Comment on above:Performed By: #### YASMIN #### [facility] [address] [address] [address] Susannah Rodriguez%4.0 %Critically low20.5-60.0The [facility] Medical CenterComment on above:Performed By: #### YASMIN #### [facility] [address] [address] [address] Susannah MackH30.1 zcLcsodi21.7-34.0The [facility] CenterComment on above: Performed By: #### YASMIN #### [facility] [address] [place] [address] Dr. Susannah MackHC34.1 g/ttFmjhgq93.9-35.2The [facility] CenterComment on above:Performed By: #### YASMIN #### [facility] [address] [place] [address] Dr. Susannah MackV88.3 rJYpaeav00.0-99.0The [facility] CenterComment on above: Performed By: #### YASMIN #### [facility] [address] [place] [address] Dr. Susannah HarrisOCYTE #NormalThe [facility] Medical CenterComment on above: Performed By: #### YASMIN #### [facility] [address] [place] [address] Dr. Susannah BooELOCYTE %NormalThe [facility] Medical CenterComment on above: Performed By: #### YASMIN #### [facility] [address] [address] [address] Susannah Ware#1.20 103/ulCritically high0.30-0.80The [facility] Comment on above:Performed By: #### YASMIN #### [facility] [address] [address] [address] Susannah Ware%7.0 %Normal1.7-12.0The [facility] CenterComment on above: Performed By: #### YASMIN #### [facility] [address] [address] [address] Susannah ClarkV9.8 fLNormal9.5-13.5The [facility] CenterComment on above: Performed By: #### YASMIN #### [facility] [address] [address] [address] Susannah SantosOCYTE #NormalThe [facility]innie HospitalComment on above:Performed By: #### YASMIN #### [facility] [address] [address] [address] Susannah SantosOCYTE %NormalThe [facility] CenterComment on above:Performed By: #### YASMIN #### [facility] [address] [place] [address] Dr. Susannah HopkinsNRBCNormalThe [facility] CenterComment on above:Performed By: #### YASMIN #### [facility] [address] [address] [address] Susannah RobertsT278 103/vyQmdzpu385-587Ahj [facility] CenterComment on above: Performed By: #### YASMIN #### [facility] [address] [place] [address] Dr. Susannah HopkinsRBC5.21 106/ulNormal4.20-5.40The [facility] CenterComment on above:Performed By: #### YASMIN #### [facility] [address] [place] [address] Dr. Susannah BentonW11.7 %Gajarw12.0-15.0The [facility] CenterComment on above: Performed By: #### YASMIN #### [facility] [address] [address] [address] Susannah Willams #14.96 103/ulCritically high1.40-6.50The [facility] on above:Performed By: #### YASMIN #### [facility] [address] [address] [address] Susannah Willams %87.0 %Critically high43.0-75.0The [facility]innie HospitalComment on above:Performed By: #### CBCMAN #### [facility] [address] [place] [address] Dr. Susannah HopkinsWBC17.2 103/ulCritically high4.0-11.0The [facility] on above:Performed By: #### CBCMAN #### [facility] [address] [place] [address] Dr. Susannah Byrd AND B AGon 62-43-3966QYXEFNGXJBJIISelect Medical Specialty [facility] [place] on above:Result Comment: Negative for Flu A protein angiten. Infection due to Flu A cannot be ruled out. FluA angiten in the sample may be below the detection limit of the test.Performed By: #### INFLUAB #### [facility] [address] [place] [address] Dr. Susannah ArangoUBNEGSelect Medical Specialty Hospital - [place] on above: Result Comment: Negative for Flu B protein antigen. Infection due to Flu B cannot be ruled out. FluB antigen in the sample may be below the detection limit of the test.Performed By: #### INFLUAB #### [facility] [address] [place] [address] Dr. Susannah Byrd AGNegativeNormalNEGATIVE SEE COMMENTThe [facility] on above:Performed By: #### INFLUAB #### [facility] [address] [place] [address] Dr. Susannah Fink AGNegativeNormalNEGATIVE SEE COMMENTThe [facility] on above:Performed By: #### INFLUAB #### [facility] [address] [place] [address] Dr. Susannah HopkinsINTERNAL CONTROLSWithin Normal LimitsNormalWithin Normal Limits The [facility] on above:Performed By: #### INFLUAB #### [facility] [address] [place] [address] Dr. Susannah Chery HCG QUALon 48-19-3105UENYHIUWI, QUALNegativeNormalNEGATIVE The [facility] CenterComment on above:Performed By: #### PREG #### [facility] [address] [place] [address] Dr. Susannah Bee 14(COMP METB)on 00-25-5569Nlrleyq [Mass/Vol]4.4 g/dLNormal 3.4-5.0The [facility] CenterComment on above:Performed By: #### CMP #### [facility] [address] [place] [address] Dr. Susannah HopkinsAlbumin/Globulin [Mass ratio]1.1 {ratio}NormalThe [facility] Medical CenterComment on above:Performed By: #### CMP #### [facility] [address] [place] [address] Dr. Susannah FofanaP [Catalytic activity/Vol]71 U/KRytlav55-624Rfv [facility] CenterComment on above:Performed By: #### CMP #### [facility] [address] [place] [address] Dr. Susannah Herron [Catalytic activity/Vol]19 U/ZHrkwdd10-04Bfp [facility] CenterComment on above:Performed By: #### CMP #### [facility] [address] [place] [address] Dr. Susannah Dickinson gap [Moles/Vol]15.1 mmol/LNormalThe [facility] Comment on above:Performed By: #### CMP #### [facility] [address] [place] [address] Dr. Susannah HopkinsAST [Catalytic activity/Vol]23 U/YTcwjlk72-79Xff [facility] Hospitalment on above:Performed By: #### CMP #### [facility] [address] [place] [address] Dr. Susannah HopkinsBilirubin [Mass/Vol]0.9 mg/dLNormal0.2-1.3The [facility] Comment on above:Performed By: #### CMP #### [facility] [address] [place] [address] Dr. Susannah HopkinsCalcium [Mass/Vol]9.5 mg/dLNormal8.5-10.1[facility] Comment on above:Performed By: #### CMP #### [facility] [address] [address] [address] Susannah HopkinsChloride [Moles/Vol]101 mmol/CEttnml52-510Uwv [facility] Comment on above:Performed By: #### CMP #### [facility] [address] [address] [address] Susannah HopkinsCO2 [Moles/Vol]23.8 mmol/QFnxuwt82.0-30.0The [facility] Comment on above:Performed By: #### CMP #### [facility] [address] [address] [address] Susannah HopkinsCreatinine [Mass/Vol]1.04 mg/dLNormal0.52-1.04[facility] - AkronComment on above:Performed By: #### CMP #### [facility] [address] [address] [address] Susannah GaonaGFR-AF VENEZUELAN>60Normal>=60The [facility] CenterComment on above:Performed By: #### CMP #### [facility] [address] [address] [address] Susannah GaonaGFR-NON AF VENEZUELAN>60Normal>=60The [facility] CenterComment on above:Performed By: #### CMP #### [facility] [address] [address] [address] Susannah HopkinsGlobulin (S) [Mass/Vol]3.9 g/dLNormalThe [facility] CenterComment on above:Performed By: #### CMP #### [facility] [address] [address] [address] Susannah HopkinsGlucose [Mass/Vol]157 mg/dLCritically moxh12-957Kti [facility] CenterComment on above:Performed By: #### CMP #### [facility] [address] [address] [address] Susannah HopkinsPotassium [Moles/Vol]3.9 mmol/LNormal3.4-5.0The [facility] Comment on above:Performed By: #### CMP #### [facility] [address] [address] [address] Susannah HopkinsProtein [Mass/Vol]8.3 g/dLCritically high6.1-8.2The [facility] CenterComment on above:Performed By: #### CMP #### [facility] [address] [address] [address] Susannah HopkinsSodium [Moles/Vol]136 mmol/LCritically gai433-042Yhk [facility] CenterComment on above:Performed By: #### CMP #### [facility] [address] [address] [address] Susannah HopkinsUrea nitrogen [Mass/Vol]20.0 mg/dLCritically high7.0-18.0The [facility] CenterComment on above:Performed By: #### CMP #### [facility] [address] [address] [address] Susannah Vazquez nitrogen/Creatinine [Mass ratio]19.2 mg/mgNormalThe [facility] CenterComment on above:Performed By: #### CMP #### [facility] [address] [address] [address] Susannah Hopkins Vital Signs Date TimeVital SignValuePerforming PayavnodyEubyfuiq97-05-4374 09:04-0400Body mass index (BMI) [Ratio]31.71 kg/m2Nadine DE JESUS Work Phone: [facility] HospitalLnnkzjksee66-72-9696 09:04-0400Body ahtdss52.19 kgNadine DE JESUS Work Phone: [facility] HospitalLclrfdjogu41-86-6444 09:04-0400Diastolic blood upyokyks91 mm[Hg]Nadine DE JESUS Work Phone: [facility] HospitalPrrbpxgneu63-04-6058 09:04-0400Systolic blood xgefdiaq165 mm[Hg]Nadine DE JESUS Work Phone: [facility] HospitalMnjftenedi42-04-4911 08:34-0400Body mass index (BMI) [Ratio]31.2 kg/m2Nadine DE JESUS Work Phone: [phone] [place], [place] 0325110-16-2025 08:34-0400Body vyijit86.89 kgNadine Galileo DE JESUS Work Phone: [phone])[facility] [place], [place] [address]Uudzkswxqo12-95-5708 08:34-0400Diastolic blood dedznwsn27 mm[Hg]Nadine Galileo DE JESUS Work Phone: [phone])[facility] [place], [place] [address]Hfmpjzljzj87-72-3427 08:34-0400Systolic blood eeunlavr614 mm[Hg]Nadine Hawthorneey PA Work Phone: [phone] [place], [place] 0325110-09-2025 08:49-0400Body mass index (BMI) [Ratio]31.53 kg/k2Nmwdxuxt Jen LANGUAGE TRANSLATOR Work Phone: [phone] [place], [place] 0325110-09-2025 08:49-0400Body xjmlom72.74 kgArmindaa Jen LANGUAGE TRANSLATOR Work Phone: [phone] [place], [place] 0325110-09-2025 08:49-0400Diastolic blood wwwtmlfi15 mm[Hg]Kera Jen LANGUAGE TRANSLATOR Work Phone: [phone] [place], [place] 0325110-09-2025 08:49-0400Systolic blood gmymniit558 mm[Hg]Kera Jen LANGUAGE TRANSLATOR Work Phone: 1(224)[address] [place], [place] 0325110-02-2025 08:56-0400Body mass index (BMI) [Ratio]30.47 kg/r9Xbmwahhh Jen LANGUAGE TRANSLATOR Work Phone: 1(419)[address] [place], [place] 0325110-02-2025 08:56-0400Body cunkkf34.02 kgKristina Jen LANGUAGE TRANSLATOR Work Phone: [phone] [place], [place] 0325110-02-2025 08:56-0400Diastolic blood mm[Hg]Kera Jen LANGUAGE TRANSLATOR Work Phone: 1([phone] [place], [place] 0325110-02-2025 08:56-0400Systolic blood ibmapxmq755 mm[Hg]Kera Jen LANGUAGE TRANSLATOR Work Phone: 1([phone])[address] [place], [place] 03[address]109-22-2025 08:37-0400Body mass index (BMI) [Ratio]29.98 kg/r5Zahov Blake DO Work Phone: [facility] HospitalFvvrrogffs11-49-7746 08:37-0400Body bpemad52.77 kgCorey Blake DO Work Phone: [phone] [place], [place] [address]Ifwfllqvry83-09-9083 08:37-0400Diastolic blood tgnnrkpo58 mm[Hg]José Blake DO Work Phone: [phone] [place], [place] [address]Qfswxqlldl38-35-6909 08:37-0400Systolic blood wvacnhbf581 mm[Hg]José Blake DO Work Phone: [phone])083-[address] [place], [place] [address]Sygixdmmmi97-74-3501 09:07-0400Diastolic blood gdxfybzd75 mm[Hg]Kera Li LANGUAGE TRANSLATOR Work Phone: 1(763)417-[address] [place], [place] [address]Gsakpehdpi73-46-1767 09:07-0400Systolic blood kboohuwb957 mm[Hg]Kera Li LANGUAGE TRANSLATOR Work Phone: 1(653)[facility] [place], [place] [address]Wvucjlcibw67-94-4697 09:06-0400Body mass index (BMI) [Ratio]29.85 kg/b8QgnzlxnwKera Li LANGUAGE TRANSLATOR Work Phone: 1(688)[facility] [place], [place] [address]Kvjejqkcon46-45-0411 09:06-0400Body .43 kgKrradha Li LANGUAGE TRANSLATOR Work Phone: 1(620)[facility] [place], [place] [address]Dhzkosxayq35-14-5878 08:26-0400Body mass index (BMI) [Ratio]28.96 kg/j4Ihndt Blake DO Work Phone: [phone] [place], [place] [address]Uwiibfrjqu15-09-8069 08:26-0400Body armicy88.16 kgCorey Blake DO Work Phone: [phone])101-[address] [place], [place] [address]Eagzdnltds30-34-9599 08:26-0400Diastolic blood mm[Hg]José Blake DO Work Phone: 1(123)[facility] [place], [place] [address]Denbqkxmll44-87-7318 08:26-0400Systolic blood exkkhavg563 mm[Hg]José Blake DO Work Phone: 1(657)[facility] [place], [place] [address]Pirtstglfr89-80-6057 09:04-0400Body mass index (BMI) [Ratio]28.7 kg/m2Amy Galileo PA Work Phone: [facility] HospitalJzsonuodhd83-65-2448 09:04-0400Body qekhdf31.48 kgAmy Tampa PA Work Phone: [facility] HospitalNsafngdtim25-50-6931 09:04-0400Diastolic blood tftvufvf80 mm[Hg]Nadine Galvan PA Work Phone: [facility] HospitalRytkckttjz52-29-0714 09:04-0400Systolic blood kjajjscf342 mm[Hg]Nadine Galvan PA Work Phone: [facility] HospitalEttadsttre65-43-4264 09:23-0400Body mass index (BMI) [Ratio]28.52 kg/h9Jxuxg Blake DO Work Phone: [facility] HospitalXotxvirndw85-42-2939 09:23-0400Body lzrcau28.03 kgCorey Blake DO Work Phone: [facility] HospitalJcdefstvwf44-43-8821 09:23-0400Diastolic blood wsuyxeww74 mm[Hg]José Blake DO Work Phone: [facility] HospitalAtottiuqun40-99-2741 09:23-0400Systolic blood xfgvvdya998 mm[Hg]José Blake DO Work Phone: [facility] HospitalVhetvpttqe75-01-5942 08:52-0400Body mass index (BMI) [Ratio]28.19 kg/m2Amy Galileo PA Work Phone: [facility] HospitalUiziwppxxm07-54-1006 08:52-0400Body tafzaw80.18 kgAmy Tampa PA Work Phone: [facility] HospitalZtagswjjvp65-44-2162 08:52-0400Diastolic blood hojsqoba20 mm[Hg]Nadine Galvan PA Work Phone: [facility] HospitalLpajbrxxdp36-79-3373 08:52-0400Systolic blood qesdrcxv811 mm[Hg]Nadine Galvan PA Work Phone: [facility] HospitalByrvwuxbty86-44-0931 12:05-0400Body mass index (BMI) [Ratio]26.93 kg/z8Ewiea Blake DO Work Phone: [facility] HospitalZhzirnwxzx31-04-0422 12:05-0400Body hjodmm74.95 kgCorey Blake DO Work Phone: [facility] HospitalQvwctjeibu32-19-3893 12:05-0400Diastolic blood thwrxvaq43 mm[Hg]José Blake DO Work Phone: [facility] HospitalAxnbbdxbbs96-03-3823 12:05-0400Systolic blood mm[Hg]José Blake DO Work Phone: [facility] HospitalMkzpqnulno60-78-0102 14:34-0400Body mass index (BMI) [Ratio]25.65 kg/v1Axoeo Blake DO Work Phone: [facility] HospitalThffhimpct55-20-1363 14:34-0400Body ygsxel01.68 kgCorey Blake DO Work Phone: [facility] HospitalBganoxngmb09-40-8255 14:34-0400Diastolic blood kavmmhjn62 mm[Hg]José Blake DO Work Phone: [facility] HospitalEptxlhtkqh82-59-0650 14:34-0400Systolic blood meghmtwo835 mm[Hg]José Blake DO Work Phone: [facility] HospitalOeueswkflc86-65-3682 14:55-0400Body bwyvrm[address] [facility]04-03-2025 14:55-0400Body mass index (BMI) [Ratio]25.18 kg/m2[facility]04-03-2025 14:55-0400Body .47 kgSt[facility]04-03-2025 14:55-0400Diastolic blood jisohskf77 mm[Hg][facility]04-03-2025 14:55-0400Systolic blood lgywzyvs636 mm[Hg][facility]01-07-2025 12:44-0500Body yjnalh17.32 kgMadeleine Bundy MD Work Phone: [facility] HospitalAjzgzruwwl55-27-3278 12:44-0500Diastolic blood mm[Hg]Madeleine Bundy MD Work Phone: [employer] NetworksJeiqbyvgbj92-78-2175 12:44-0500Systolic blood yrzfxkac016 mm[Hg]Madeleine Bundy MD Work Phone: [facility] Ohvwbvmkkr22-80-5584 15:08-0400Body dhdubv41.22 kgMadeleine Bundy MD Work Phone: [employer] Oklnnvdpha54-69-0638 15:08-0400Diastolic blood wozyyvbw00 mm[Hg]Madeleine Bundy MD Work Phone: [employer] Jowdlhzinf08-36-9537 15:08-0400Systolic blood bojjfhwf213 mm[Hg]Madeleine Bundy MD Work Phone: [employer] Nhttcxvmut30-51-3118 07:30-0500Body .75 cmMafadi Stiles Other [employer] Other 01-03-2024 07:30-0500Body mass index (BMI) [Ratio] 25.41 kg/d4ZtzilwxTyrell Stiles Other [employer] Other 01-03-2024 07:30-0500Body uymssw54.05 kgMattmatilde Stiles Other [employer] Other 01-03-2024 07:30-0500Diastolic blood cfloufdn60 mm[Hg] Tyrell Stiles Other [employer] Other 01-03-2024 07:30-0500Respiratory rate16 /minMafadi Stiles Other [employer] Other 01-03-2024 07:30-4141DjI9% (BldA) [Mass fraction]98 % Tyrell Stiles Other [employer] Other 01-03-2024 07:30-0500Systolic blood aupeysxp090 mm[Hg] Tyrell Stiles Other [employer] Other 10-18-2023 12:30-0400Body emirrs620.75 cmBreteri Buitrago Other [employer] Other 10-18-2023 12:30-0400Body mass index (BMI) [Ratio]25.2 kg/c8Wqqjr Kunapurva Other [employer] Other 10-18-2023 12:30-0400Body aovpfb44.5 kgBreteri Buitrago Other [employer] Other 10-18-2023 12:30-0400Diastolic blood ixargeyb76 mm[Hg] Lisandro Kuns Other [employer] Other 10-18-2023 12:30-0400Respiratory rate16 /minBreteri Buitrago Other [employer] Other 10-18-2023 12:30-6774ZeS3% (BldA) [Mass fraction]99 % Lisandro Kuns Other [employer] Other 10-18-2023 12:30-0400Systolic blood dgaarlue571 mm[Hg] Lisandro Kuns Other [employer] Other Encounters Encounter DateEncounter TypeCare ProviderFacilityStart: 03-07-2025 End: 05-23-5121Eqgrwbngt Result EncounterCorey Blake DO Work Phone: NOMS External Department UnsolicitedStart: 03-07-2025 End: 14-27-2178Sqovmldny Result EncounterCorey Blake DO Work Phone: noMS External Department UnsolicitedStart: 03-05-2025 End: 48-20-1355Bheyzgbsg Result EncounterCorey Blake DO Work Phone: noms External Department UnsolicitedStart: 03-05-2025 End: 83-91-2714Yabuqhcbb Result EncounterCorey Blake DO Work Phone: noms External Department UnsolicitedStart: 03-01-2025 End: 66-73-4460Mpiupz denissePadmini DE JESUS Work Phone: noMS Danish OBGYNStart: 03-01-2025 End: 42-63-8795Psjcac denissePadmini DE JESUS Work Phone: noMS Tinnie OBGYNStart: 03-01-2025 End: 28-62-1856Etppjyytk Result EncounterCorey Blake DO Work Phone: noms External Department UnsolicitedStart: 03-01-2025 End: 28-72-1999Pgbkegnd flow Ronal DE JESUS Work Phone: NOMS Danish OBGYNComment on above:Third trimester ([facility]); 40 weeks gestation of ([facility])Start: 03-01-2025 End: 51-88-9472eucdlfbpuyTJB RAMEYNot AvailableStart: 02-22-2025 End: 41-47-5373Gruokx flowsPadmini DE JESUS Work Phone: NOMS Danish OBGYNStart: 02-22-2025 End: 93-30-1014Zcrjac denissePadmini DE JESUS Work Phone: noMS Danish OBGYNStart: 02-22-2025 End: 64-69-1366Iemcfazcr Result EncounterCorey Blake DO Work Phone: noMS External Department UnsolicitedStart: 02-22-2025 End: 43-32-9152Hahtjbzm flow sheetNadine Galvan PA Work Phone: NOMS Tinnie OBGYNComment on above:Third trimester ([facility]); 39 weeks gestation of ([facility])Start: 02-22-2025 End: 09-14-1737etzsagqyfrOJZ Mary Alice AvailableStart: 02-15-2025 End: 82-85-5991Bnhdmskvr Result EncounterCorey Blake DO Work Phone: NOMS External Department UnsolicitedStart: 02-15-2025 End: 66-16-5823Ffmzatobh Result EncounterCorey Blake DO Work Phone: NOMS External Department UnsolicitedStart: 02-15-2025 End: 53-50-9684Jyuyvg outpatient visit 15 minutesKera Li NP Work Phone: NOMS Tinnie OBGYNComment on above:Third trimester ([facility]); 38 weeks gestation of ([facility])Start: 02-15-2025 End: 53-21-4301dtaggyopteNYBCRKAY EBERLYNot AvailableStart: 02-08-2025 End: 54-58-7706Ziubtg flowsheetKera Li LANGUAGE TRANSLATOR Work Phone: NOMS Tinnie OBGYNStart: 02-08-2025 End: 93-90-6654Lfywii flowsheetKrfortinoa Jen LANGUAGE TRANSLATOR Work Phone: NOMS Tinnie OBGYNStart: 02-08-2025 End: 63-22-9244Qjiugmrga Result EncounterCorey Blake DO Work Phone: NOMS External Department UnsolicitedStart: 02-08-2025 End: 68-40-3695Ljlypsbl flow sheetArmindaa Jen LANGUAGE TRANSLATOR Work Phone: NOMS Danish OBGYNComment on above:Third trimester ([facility]); 37 weeks gestation of ([facility])Start: 02-08-2025 End: 60-63-7701dalefvxvwvMICCDJPB EBERLYNot AvailableStart: 02-01-2025 End: 19-78-3209Gjsfvemvf Result EncounterCorey Blake DO Work Phone: NOMS External Department UnsolicitedStart: 02-01-2025 End: 97-99-1706Oksrkqhbj Result EncounterCorey Blake DO Work Phone: NOMS External Department UnsolicitedStart: 01-29-2025 End: 67-14-0197Dcpexu flowsheetCorey Blake DO Work Phone: NOEI Danish OBGYNStart: 01-29-2025 End: 20-12-7727Nqlgjo flowsheetCorey Blake DO Work Phone: NOQR Tinnie OBGYNStart: 01-29-2025 End: 06-08-5447Iofataok flow sheetCorey Blake DO Work Phone: NOQM Tinnie OBGYNComment on above:Third trimester ([facility]); 36 weeks gestation of ([facility])Start: 01-29-2025 End: 82-63-9552hxmwtknuehVAFLF FAZIONot AvailableStart: 01-25-2025 End: 81-22-5257Kjwewwdqa Result EncounterCorey Blake DO Work Phone: NOHA External Department UnsolicitedStart: 01-25-2025 End: 78-10-0984Uhvhyxphl Result EncounterCorey Blake DO Work Phone: NOMS External Department UnsolicitedStart: 01-18-2025 End: 39-13-6669Skptbrcvi Result EncounterCorey Blake DO Work Phone: NOMS External Department UnsolicitedStart: 01-18-2025 End: 57-50-5694Chafbmkfi Result EncounterCorey Blake DO Work Phone: NOMS External Department UnsolicitedStart: 01-15-2025 End: 45-54-0860Abgzdg Martina Li LANGUAGE TRANSLATOR Work Phone: NOMS Tinnie OBGYNStart: 01-15-2025 End: 08-80-6439Ewazdg flowsVeronica Li LANGUAGE TRANSLATOR Work Phone: NOMS Danish OBGYNStart: 01-15-2025 End: 85-38-7264Wkqympzv flow Ismael Li LANGUAGE TRANSLATOR Work Phone: NOMS Danish OBGYNComment on above:Third trimester ([facility]); 34 weeks gestation of ([facility])Start: 01-15-2025 End: 05-51-5006dpulbwnzshBXZJMWGK JENNot AvailableStart: 01-08-2025 End: 62-56-5200Nxeuymhjn Result EncounterCorey Blake DO Work Phone: NOMS External Department UnsolicitedStart: 01-08-2025 End: 24-01-2664Wzgeyleqy Result EncounterCorey Blake DO Work Phone: NOMS External Department UnsolicitedStart: 01-04-2025 End: 44-42-0243Ysnrdjdcv Result EncounterCorey Blake DO Work Phone: NOMS External Department UnsolicitedStart: 01-04-2025 End: 09-14-7878Nycwtkvaz Result EncounterCorey Blake DO Work Phone: NOMS External Department UnsolicitedStart: 01-02-2025 End: 43-39-7802Hwkikn flowsheetCorey Blake DO Work Phone: NOMS Danish OBGYNStart: 01-02-2025 End: 90-77-8803Hrtkjc flowsheetCorey Blake DO Work Phone: NOMS Tinnie OBGYNStart: 01-02-2025 End: 75-79-7080Ozysqigj flow sheetCorey Blake DO Work Phone: NOMS Tinnie OBGYNComment on above:Third trimester ([facility]); 32 weeks gestation of ([facility]); ZULMA (amniotic fluid index) borderline lowStart: 01-02-2025 End: 13-28-5987rhydaiablhABBYW FAZIONot AvailableStart: 12-19-2024 End: 65-02-7263Arqxbzez flow Ronal DE JESUS Work Phone: NOOE Tinnie OBGYNComment on above:30 weeks gestation of ([facility]); Third trimester ([facility]); HSV infectionStart: 12-19-2024 End: 10-38-9002qccbvwfsbyYIA Mary Alice AvailableStart: 12-05-2024 End: 93-73-0043Ovgkvx flowsheetCorey Blake DO Work Phone: NOVJ Danish OBGYNStart: 12-05-2024 End: 94-38-7113Ulphik flowsheetCorey Blake DO Work Phone: NOLI Tinnie OBGYNStart: 12-05-2024 End: 32-20-7812Trppxinr flow sheetCorey Blake DO Work Phone: NOKG Tinnie OBGYNComment on above:Third trimester ([facility]); 28 weeks gestation of ([facility]); HSV infection; size inconsistent with dates ([facility])Start: 12-05-2024 End: 85-69-1472vofyeytkmbNITTZ FAZIONot AvailableStart: 11-28-2024 End: 73-07-7151Oozrzizho Result EncounterNadine DE JESUS Work Phone: NOKM External Department UnsolicitedStart: 11-28-2024 End: 80-90-3884Cnqmfwmbg Result EncounterNadine DE JESUS Work Phone: NOPE External Department UnsolicitedStart: 11-22-2024 End: 30-43-6965Oqdrdjuba Result EncounterCorey Blake DO Work Phone: noms External Department UnsolicitedStart: 11-22-2024 End: 28-42-3147Qvbcoyowx Result EncounterCorey Blake DO Work Phone: noMS External Department UnsolicitedStart: 11-22-2024 End: 24-19-2161Xmbhfjod flow sheetAmy Galileo PA Work Phone: noMS BCP OBComment on above:26 weeks gestation of ([facility]); Second trimester ([facility]); Elevated glucose tolerance testStart: 11-22-2024 End: 08-55-3988ucxezllzdiQHY RAMEYNot AvailableStart: 10-26-2024 End: 76-53-1850kvcwzteeacPAEYQ FAZIONot AvailableStart: 10-26-2024 End: 60-17-4993Njnhpagq flow sheetCorey Blake DO Work Phone: noMS BCP OBComment on above:Second trimester ([facility]); 22 weeks gestation of ([facility]); Diabetes mellitus screeningStart: 10-26-2024 End: 21-83-5279mzxiyqkjgaOGFML FAZIONot AvailableStart: 09-28-2024 End: 61-90-4614gnfniukqcsGHW RAMEYNot AvailableStart: 08-29-2024 End: 37-21-8267Lzerrhvs flow sheetCorey Blake DO Work Phone: noMS BCP OBComment on above:Second trimester ; 14 weeks gestation of pregnancyStart: 08-29-2024 End: 86-58-0288Cxuryo flowsheetCorey Blake DO Work Phone: NOMS BCP OBStart: 08-29-2024 End: 57-50-9223Owgxgl flowsheetCorey Blake DO Work Phone: noMS BCP OBStart: 08-29-2024 End: 27-22-3696Yzehtgous Result EncounterCorey Blake DO Work Phone: noms External Department UnsolicitedStart: 08-29-2024 End: 93-28-1115yzdqhiqdffHKEWV FAZIONot AvailableStart: 08-10-2024 End: 59-07-2887Bvwsov outpatient visit 5 minutesNoms Bcp Ob Blake NurseNOMS BCP OBComment on above:GA: 11q5vAcqti: 08-10-2024 End: 54-62-5623txwafvuvzpQTNLR FAZIONot AvailableStart: 07-11-2024 End: 97-32-7049Gkrlxmsy flow sheetNoms Sws Ob NurseNOMS SWS OBComment on above: GA: 7z2uBohse: 07-11-2024 End: 10-67-5792ebacgjsqqtILDKX FAZIONot AvailableStart: 05-16-2024 End: 43-74-2529Jqalqm outpatient visit 15 minutesMadeleine Bundy MD Work Phone: noms [facility] OBComment on above:Hormone imbalance (Primary Dx); Amenorrhea; Missed menses; Family planning; Thyroid disorder screenStart: 05-16-2024 End: 33-81-9941njyjqzpwhyNTBBRE P JONESNot AvailableStart: 03-30-2024 End: 14-98-8839wvhlbdyufhTvfgr aegeFacility:[facility]Start: 02-08-2024 End: 94-64-6013Fkdjegn encounter statusMadeleine Bundy MD Work Phone: noIN HealthcareStart: 02-08-2024 End: 97-42-1755Nutaluvv preventive med est patient 18-39 yrsMadeleine Bundy MD Work Phone: noms [facility] OBComment on above:Amenorrhea (Primary Dx); Screening for malignant neoplasm of cervix; Encounter for gynecological examination without abnormal finding; Encounter for surveillance of vaginal ring hormonal contraceptive device; Missed mensesStart: 01-24-2024 End: 08-57-0412wbxzfvqmneEcyefiqc:[facility] HospitalStart: 05-12-2023 End: 39-44-1473svkhadxazyRnvpsjp [place] Other [facility] [employer] Other Start: 03-33-8176Xpzayt outpatient visit 15 minutes [facility] [place]: 03-02-2023 End: 81-79-8420umpdicdpdiIrefn KunsFacility:[facility] Start: 03-02-2023 End: 44-88-9090jnqvjmdzfqDN Lisandro Buitrago Work Phone: [facility] Work Phone: Start: 03-02-2023 End: 08-14-1314Xepufyp encounter procedureDO Lisandro Buitrgao Work Phone: [facility]trStart: 02-24-2023 End: 30-43-2511bqlivjxaasSovib Kuns Other [facility] [employer] Other Start: 56-52-8425Ystiwctkm for general adult medical examination without abnormal findingsSt. [facility] [place] Start: 94-60-6726Snazdf outpatient new 30 minutesBreCleveland Clinic [facility] Medicine [place]Start: 07-28-2021 End: 45-09-6263tdcgygqzjhBB JANES GARCIAFacility:H1 Procedures DateProcedureProcedure DetailPerforming ClinicianStart: 34-12-1686CBX CBC WITH AUTO DIFFCorey Blake DO Work Phone: Start: 55-63-6548JXZJ CBC WITH PLATELET NO DIFFERENTIALCorey Blake DO Work Phone: Start: 54-13-9741Wmjcu dip stick/tablet rgnt non-auto w/o micrscpAmy Galileo DE JESUS Work Phone: Start: 58-99-4216AK OB BPP W NON-STRESSCorey Blake DO Work Phone: Start: 77-58-0817Mlhlp dip stick/tablet rgnt non-auto w/o micrscpAmy Galileo DE JESUS Work Phone: Start: 47-91-2801UX OB BPP W NON-STRESSCorey Blake DO Work Phone: Start: 49-40-8035Ujsfq dip stick/tablet rgnt non-auto w/o micrscpKera Li NP Work Phone: Start: 25-77-7797ZV OB BPP W NON-STRESSCorey Blake DO Work Phone: Start: 70-01-4349AD OB BPP W NON-STRESSCorey Blake DO Work Phone: Start: 02-30-3097Legyt dip stick/tablet rgnt non-auto w/o micrscpKristina Jen LANGUAGE TRANSLATOR Work Phone: Start: 23-06-8368BM OB BPP W NON-STRESSCorey Blake DO Work Phone: Start: 10-26-4665Swgno dip stick/tablet rgnt non-auto w/o micrscpCorey Blake DO Work Phone: Start: 00-12-0968SE OB BPP W NON-STRESSCorey Blake DO Work Phone: Start: 26-21-2273RW OB BPP W NON-STRESSCorey Blake DO Work Phone: Start: 54-06-9981Kbewg dip stick/tablet rgnt non-auto w/o micrscpKristina Jen LANGUAGE TRANSLATOR Work Phone: Start: 69-71-6259LI OB BPP W NON-STRESSCorey Blake DO Work Phone: Start: 75-92-9868KE OB BPP W NON-STRESSCorey Blake DO Work Phone: Start: 71-81-0166Sfiuz dip stick/tablet rgnt non-auto w/o micrscpCorey Blake DO Work Phone: Start: 50-37-8400Pfhrt dip stick/tablet rgnt non-auto w/o micrscpAmy Galileo DE JESUS Work Phone: Start: 73-14-2816HEWSKJJ TOLERANCE 3 HOURAmy Galileo DE JESUS Work Phone: Start: 08-25-8704Weabj dip stick/tablet rgnt non-auto w/o micrscpAmy Galileo DE JESUS Work Phone: Start: 05-87-1538TJT CBC WITH AUTO DIFFCorey Blake DO Work Phone: Start: 38-06-4789Tugza dip stick/tablet rgnt non-auto w/o micrscpCorey Blake DO Work Phone: Start: 06-95-2407Hrtir dip stick/tablet rgnt non-auto w/o micrscpCorey Blake DO Work Phone: Start: 77-01-8474AZS TESTCorey Blake DO Work Phone: Start: 93-77-5255Flqxm dip stick/tablet rgnt non-auto w/o micrscpCorey Blake DO Work Phone: Start: 54-66-9073Kakda test visual color cmprsn Ritesh Bundy MD Work Phone: start: 67-33-6440Fbfu cerv/vag auto thin layer prep mnl screenCorey Blake DO Work Phone: Start: 58-00-6525Imjlu chest X-rayDO Lisandro Buitrago Work Phone: Start: 12-29-6039Aoycy X-ray of left shoulderDO Lisandro Buitrago Work Phone: Plan of Treatment DateCare ActivityDetailAuthorStart: 03-01-2025 End: 98-90-9807Zvdtjfs encounter procedureNOMS Tinnie OBGYNComment on above: ArrivedStart: 02-22-2025 End: 30-05-4885Yyvfkzz encounter procedureNOMS Tinnie OBGYNComment on above: ArrivedStart: 02-15-2025 End: 21-46-8812Zrordbz encounter xmbtupjrt27/09/2025 8:50 AM EDT Routine NOMS Danish FIGUEROAN [address] [place], [id number] Kera Li, LIBBY [address] [place] [phone] NOMS Danish OBGYNStart: 02-08-2025 End: 17-30-1488Phdfqql encounter procedureNOMS Danish OBGYNComment on above: ArrivedStart: 01-29-2025 End: 87-43-1235JDSSZMX, GROUP B STREP WITH SUSCEPTIBLITYCULTURE, GROUP B STREP WITH SUSCEPTIBLITY Lab Routine Third trimester ([facility]) Expected: 01/29/2025, Expires: 01/29/2026[facility] Work Phone: comment on above:Expected: 01/29/2025, Expires: 01/29/2026Start: 01-29-2025 End: 49-61-7469Lnjnwtr encounter procedureNOMS Danish OBGYNComment on above: Third trimester ([facility])Start: 01-16-2025 End: 73-87-0379Gwrwqhm encounter joovtrljo73/09/2025 8:50 AM EDT Routine [facility]BGYN [address] [place], [id number] Nadine Galvan PA [address] [place] [address] NOMS Danish OBGYNStart: 01-15-2025 End: 86-91-6729Dwcdyht encounter procedureNOMS Danish OBGYNComment on above: ArrivedStart: 16-08-1090BGNOF-19 Vaccine ( season)COVID-19 Vaccine ( season)NOMS HealthcareStart: 51-90-0822Spmqncadw vaccinationNOMS HealthcareStart: 01-02-2025 End: 85-28-9310VZ biophysical profile w non stress testUS biophysical profile w non stress test Imaging Routine ZULMA (amniotic fluid index) borderline low Expected: 01/02/2025 (Approximate), Expires: 07/05/2025[facility] Work Phone: comment on above:Expected: 01/02/2025 (Approximate), Expires: 07/05/2025Start: 01-02-2025 End: 95-51-5008Aebtuit encounter procedureNOMS Danish OBGYNComment on above: ArrivedStart: 12-19-2024 End: 93-81-5685Wwcecry encounter rohlblqej52/12/2025 8:50 AM EDT Routine [facility] OBGYN [address] [place], [id number] Nadine Galvan PA [address] [place] [address] NOMS Tinnie OBGYNStart: 12-19-2024 End: 45-54-3161Ghwawcxnmjuu / ancillary services igpkgjcjin29/12/2025 8:00 AM EDT Ancillary Procedure [facility] [address] [place] [phone] NOMS Danish OBGYNStart: 12-05-2024 End: 62-93-6144YP for pregnancyUS OB follow up transabdominal approach Imaging Routine size inconsistent with dates ([facility]) Expected: 12/05/2024, Expires: 04/07/2025NOIN [employer] Work Phone: comment on above:Expected: 12/05/2024, Expires: 04/07/2025Start: 12-05-2024 End: 31-84-4080Xjgufjo encounter procedureNOMS BCP OBComment on above:Arrived Start: 11-22-2024 End: 35-70-0446Dzullfxyubr of glucose 3 hours after glucose challenge for glucose tolerance testGlucose tolerance, 3 hours Lab Routine Elevated glucose tolerance test Expected: 11/22/2024 (Approximate), Expires: 11/22/2025NOIN [employer] Work Phone: comment on above:Expected: 11/22/2024 (Approximate), Expires: 11/22/2025Start: 11-22-2024 End: 61-61-3097Osevxur encounter ayzjnghpe80/16/2025 8:50 AM EDT Routine [facility] BCP OB [address] [place] [phone] Nadine Galvan PA [address] [place] [address] [place] [address] NOMS BCP OBStart: 10-26-2024 End: 51-95-7483GWD panel - Blood by Automated countCBC Lab Routine Diabetes mellitus screening Expected: 10/26/2024 (Approximate), Expires: 10/26/2025[facility] Work Phone: comment on above:Expected: 10/26/2024 (Approximate), Expires: 10/26/2025Start: 10-26-2024 End: 77-17-3084Oucldhcytha of glucose 1 hour after glucose challenge for glucose tolerance testGlucose tolerance, 1 hour Lab Routine Diabetes mellitus screening Expected: 10/26/2024 (Approximate), Expires: 10/26/2025NOMS HealthcareComment on above:Expected: 10/26/2024 (Approximate), Expires: 10/26/2025Start: 09-27-2024 End: 16-24-2585Ygxtpuh encounter kfcktxfuk03/21/2025 3:30 PM EDT Routine [facility] BCP OB [address] [place] [phone] Nadine Galvan PA [address] [place] [address] [place] [address] NOMS BCP OBStart: 08-29-2024 End: 09-39-2786Ztcxjyi encounter procedureNOMS BCP OBComment on above:Arrived Start: 07-27-2024 End: 79-01-1187jkmlkntbtj63/20/2025 10:30 AM EDT Initial [facility] S[facility] OB [address] [place] [phone] Madeleine Bundy MD [address] [place] [address] NOMS [facility] OBStart: 07-17-2024 End: 74-27-7012Qxghncb encounter ekbsuxdjc67/10/2025 12:30 PM EDT Office Visit NOM[facility] OB [address] [place] [phone] Madeleine Bundy MD [address] [place] [address] NOMS [facility] OBStart: 07-17-2024 End: 13-20-5018Ldnqadsgjaxf / ancillary services dlaieaucus45/10/2025 8:30 AM EDT Ancillary Procedure NOM[facility] OB [address] [place] [phone] NOMS [facility] OBStart: 07-11-2024 End: 02-31-8064Mafhkiel identified in Urine by CultureUrine culture Microbiology Routine Encounter for supervision of normal first in first trimester Expected: 07/11/2024, Expires: 07/11/2025[facility] HealthcareComment on above: Expected: 07/11/2024, Expires: 07/11/2025Start: 07-11-2024 End: 75-26-7410IZCCBK CARRIER SCREEN;14 GENESBEACON CARRIER SCREEN;14 GENES Lab Routine Screening for genetic disease carrier status Expected: 07/11/2024 (Approximate), Expires: 07/11/2025[facility] HealthcareComment on above:Expected: 07/11/2024 (Approximate), Expires: 07/11/2025Start: 07-11-2024 End: 03-85-1221Wdcyi type and Indirect antibody screen panel - BloodType and screen Lab Routine Encounter for supervision of normal first in first trimester Expected: 07/11/2024, Expires: 07/11/2025[facility] HealthcareComment on above:Expected: 07/11/2024, Expires: 07/11/2025Start: 07-11-2024 End: 41-25-5996CZG W Auto Differential panel - BloodCBC and differential Lab Routine Encounter for supervision of normal first in first trimester Expected: 07/11/2024, Expires: 07/11/2025[facility] HealthcareComment on above: Expected: 07/11/2024, Expires: 07/11/2025Start: 07-11-2024 End: 87-34-5120PFAP SCREEN 17 W/CONF, URDRUG SCREEN 17 W/CONF, UR Lab Routine Encounter for drug screening Expected: 07/11/2024, Expires: 07/11/2025[facility] HealthcareComment on above:Expected: 07/11/2024, Expires: 07/11/2025Start: 07-11-2024 End: 02-25-2405Ahptwlpvp B virus surface Ag [Presence] in Serum or Plasma by ImmunoassayHepatitis B surface antigen Lab Routine Encounter for supervision of normal first in first trimester Expected: 07/11/2024, Expires: 07/11/2025[facility] HealthcareComment on above:Expected: 07/11/2024, Expires: 07/11/2025Start: 07-11-2024 End: 81-40-7869Pjwmqvowp C virus Ab [Presence] in Serum or Plasma by Immunoassay Hepatitis C antibody Lab Routine Encounter for supervision of normal first in first trimester Expected: 07/11/2024, Expires: 07/11/2025[facility] HealthcareComment on above:Expected: 07/11/2024, Expires: 07/11/2025Start: 07-11-2024 End: 91-66-6560GVK-1/HIV-2 antigen/antibody combination immunoassayHIV-1 and HIV-2 antibodies Lab Routine Encounter for supervision of normal first in firsttrimester Expected: 07/11/2024, Expires: 07/11/2025[facility] Healthcare Comment on above:Expected: 07/11/2024, Expires: 07/11/2025Start: 07-11-2024 End: 06-17-2753GnjuwdsM35 PLUS Core+FUBSbgnfmgI17 PLUS Core+SCA Lab Routine Encounter for screening for chromosomal anomalies Expected: 07/11/2024 (Approximate), Expires: 07/11/2025[facility] HealthcareComment on above:Expected: 07/11/2024 (Approximate), Expires: 07/11/2025Start: 07-11-2024 End: 15-87-3142Lywqkb Ab [Presence] in Serum by RPRRPR Lab Routine Encounter for supervision of normal first in first trimester Expected: 07/11/2024, Expires: 07/11/2025[facility] HealthcareComment on above:Expected: 07/11/2024, Expires: 07/11/2025Start: 07-11-2024 End: 82-04-7252Girtede antibody, IgGRubella antibody, IgG Lab Routine Encounter for supervision of normal first in first trimester Expected: 07/11/2024, Expires: 07/11/2025[facility] HealthcareComment on above:Expected: 07/11/2024, Expires: 07/11/2025Start: 07-11-2024 End: 60-54-2336Nrzuhjysrj complete panel - UrineUrinalysis with microscopic Lab Routine Encounter for supervision of normal first in first trimester Expected: 07/11/2024, Expires: 07/11/2025[facility] Work Phone: comment on above:Expected: 07/11/2024, Expires: 07/11/2025Start: 05-16-2024 End: 81-45-6720GqgmeufhKlozmiqj Lab Routine Hormone imbalance Expected: 05/16/2024, Expires: 05/16/2025[facility] HealthcareComment on above:Expected: 05/16/2024, Expires: 05/16/2025Start: 05-16-2024 End: 29-00-0382ROWJ-sulfateDHEA-sulfate Lab Routine Hormone imbalance Expected: 05/16/2024, Expires: 05/16/2025[facility] HealthcareComment on above:Expected: 05/16/2024, Expires: 05/16/2025Start: 05-16-2024 End: 97-23-5355KzdwtszmaNsdratsxj Lab Routine Hormone imbalance Expected: 05/16/2024, Expires: 05/16/2025[facility] HealthcareComment on above:Expected: 05/16/2024, Expires: 05/16/2025Start: 05-16-2024 End: 25-77-5325NubgjbuUivynkm Lab Routine Hormone imbalance Expected: 05/16/2024, Expires: 05/16/2025[facility] HealthcareComment on above:Expected: 05/16/2024, Expires: 05/16/2025Start: 05-16-2024 End: 03-45-5418[place]xon stimulating hormoneFollicle stimulating hormone Lab Routine Hormone imbalance Thyroid disorder screen Expected: 05/16/2024, Expires: 05/16/2025[facility] HealthcareComment on above:Expected: 05/16/2024, Expires: 05/16/2025Start: 05-16-2024 End: 69-22-7766Aokqpqn, fastingInsulin, fasting Lab Routine Amenorrhea Missed menses Hormone imbalance Expected: 05/16/2024, Expires: 05/16/2025[facility] HealthcareComment on above:Expected: 05/16/2024, Expires: 05/16/2025Start: 05-16-2024 End: 50-70-6306Pxsflqocisl hormoneLuteinizing hormone Lab Routine Hormone imbalance Thyroid disorder screen Expected: 05/16/2024, Expires: 05/16/2025[facility] HealthcareComment on above:Expected: 05/16/2024, Expires: 05/16/2025Start: 05-16-2024 End: 29-86-7070XucrzyqaqvikXfeshamznsan Lab Routine Hormone imbalance Expected: 05/16/2024, Expires: 05/16/2025[facility] HealthcareComment on above:Expected: 05/16/2024, Expires: 05/16/2025Start: 05-16-2024 End: 87-54-2904Wpx hormone binding globulinSex hormone binding globulin Lab Routine Hormone imbalance Expected: 05/16/2024, Expires: 05/16/2025[facility] HealthcareComment on above:Expected: 05/16/2024, Expires: 05/16/2025Start: 05-16-2024 End: 85-39-4521Dfmmkggmrpds, free, totalTestosterone, free, total Lab Routine Hormone imbalance Expected: 05/16/2024, Expires: 05/16/2025[facility] Healthcare Comment on above:Expected: 05/16/2024, Expires: 05/16/2025Start: 05-16-2024 End: 11-62-5151Ihpcmjkuibp [Units/volume] in Serum or PlasmaTSH Lab Routine Hormone imbalance Thyroid disorder screen Expected: 05/16/2024, Expires: 05/16/2025[facility] Work Phone: comment on above:Expected: 05/16/2024, Expires: 05/16/2025Start: 05-16-2024 End: 81-93-2823Douqmvb D 1,25 dihydroxyVitamin D 1,25 dihydroxy Lab Routine Hormone imbalance Expected: 05/16/2024, Expires: 05/16/2025[facility] Comment on above:Expected: 05/16/2024, Expires: 05/16/2025Start: 05-16-2024 End: 96-41-2011Qiuynag encounter ppxpyjudf99/07/2025 12:30 PM EST Office Visit [facility] [address] [place] [id number] Madeleine Bundy MD [address] [facility] [address] [place] [address] [facility] OBStart: 02-08-2024 End: 91-94-5049Hhmwcjwp stimulating hormoneFollicle stimulating hormone Lab Routine Amenorrhea Expected: 02/08/2024 (Approximate), Expires: 02/07/2025[facility] HealthcareComment on above:Expected: 02/08/2024 (Approximate), Expires: 02/07/2025Start: 88-40-5930[place] vaccinationInfluenza Vaccine (#1)[facility] HealthcareStart: 79-25-8379LSD Vaccines (1 - 3-dose SCDM series)HPV Vaccines (1 - 3-dose SCDM series)[facility] HealthcareStart: 12-87-9526Xdkhfvyvf B Vaccines (1 of 3 - 19+ 3-dose series)Hepatitis B Vaccines (1 of 3 - 19+ 3-dose series)[facility] HealthcareStart: 21-27-4891Woreckn of varicella vaccinationVaricella Vaccines (1 of 2 - 13+ 2-dose series)[facility] HealthcareStart: 98-42-5991HBwP/Tdap/Td Vaccines (1 - Tdap)DTaP/Tdap/Td Vaccines (1 - Tdap)[facility] HealthcareStart: 82-46-5022MDL Vaccines (1 of 1 - Standard series)MMR Vaccines (1 of 1 - Standard series)[facility] HealthcarehCG, qualitativehCG, qualitative Lab Routine Amenorrhea Ordered: 02/08/2024[facility] HealthcareComment on above:Ordered: 02/08/2024Hemoglobin A1c/Hemoglobin.total in BloodHemoglobin A1c Lab Routine with uncertain dates, antepartum Ordered: 08/10/2024[facility] Healthcare Work Phone: comment on above:Ordered: 08/10/2024Luteinizing hormoneLuteinizing hormone Lab Routine Amenorrhea Ordered: 02/08/2024[facility] HealthcareComment on above:Ordered: 02/08/2024rogesteroneProgesterone Lab Routine Amenorrhea Ordered: 02/08/2024[facility] HealthcareComment on above:Ordered: 02/08/2024SENDOUT TEST MISCELLANEOUS LABCORPSENDOUT TEST MISCELLANEOUS [facility] Lab Routine Screening for malignant neoplasm of cervix Encounterfor gynecological examination without abnormal finding Ordered: 02/08/2024[facility] Healthcare Work Phone: comment on above:Ordered: 02/08/2024Testosterone, free, totalTestosterone, free, total Lab Routine Amenorrhea Ordered: 02/08/2024 [facility] HealthcareComment on above:Ordered: 02/08/2024 Immunizations Immunization DateImmunizationNotesCare [id number]-34 Vaccine Moderna - Documentation Purposes OnlyLisandro Buitrago Other [employer] Other [id number] Vaccine Moderna - Documentation Purposes OnlyLisandro Buitrago Other [employer] Other Payers DatePayer CategoryPayerPolicy [id number] Health [id number] Health [id number] 2..[id number] 2..9.90578[id number] 2..1.480349.3.579.2.593 [id number] 2..1.010668.3.579.2.974049-91-9150Tsldprg [id number] 2..1.345428.3.579.[id number] 2..1.438253.3.579.2.579001-21-5917Uadfupy71503477 2..1.367292.3.579.[id number] 2..1.072217.3.57[id number] 2..1.273781.3.579.2.856497-51-6196Nghmebp03245203 2..1.227627.3.579.2.[id number] 2..1.551044.3.579.2.459474-66-1106Vpmvvrg83709959 2..1.253770.3.579.2.417073-69-8410Ymfulvk12119637 2..1.804963.3.579.2.239781-61-5998Hftbruq50735297 2..1.633142.3.579.2.492429-89-6114Ixftulm22117425 2.16.840.1.528494.3.579.2.607442-31-6497Hjefctw32505725 2.16.840.1.671872.3.579.2.475986-62-4063Pnowyil1985430 2.16.840.1.864022.3.579.2.584597-07-6350Uvtrize6114567 2.16.840.1.751703.3.579.2.711693-22-2460Gwyxqta9491912 2.16.840.1.381442.3.579.2.398584-14-0803Gxqzxwe9582453 2.16.840.1.943622.3.579.2.855572-27-2746Tckiosd8782023 2.16.840.1.190897.3.579.2.278257-70-8560Ezqmhkd1256504 2.16.840.1.864891.3.579.2.397887-87-8183Agaqbis31363812 2.16.840.1.326504.3.579.2.91507-58-9807Mljz-dzuHqksoeeCBT 37i4j6b8-i294-8296-k64r-[id number] 2.16.840.1.666352.3.579.2.531 Social History DateTypeDetailFacilityStart: 02-08-2024 End: 03-24-3767Btg Assigned At [facility] [employer] Other Start: 54-36-6555Taj [facility] Centertart: 41-88-9514Gupkkwd smoking status NHISNever smoked tobaccoNOMS HealthcareStart: 76-73-9020Apjgqgf use and exposureSmokeless tobacco non-userNOMS HealthcareStart: 83-70-7046Lsujtkyqj beverage intakeCurrent drinker of alcohol (finding)[facility] HealthcareStart: 02-08-2024 End: 95-24-0321Nrwgzos of Social functionNOMS HealthcareHow often to you have a drink containing alcohol?Monthly or lessNOMS HealthcareHow many standard drinks containing alcohol do you have on a typical day?1 or 2N[facility]S HealthcareHow often do you have 6 or more drinks on 1 occasion?Less than monthlyNOIN [facility] Start: 42-31-8960Brx assigned at birthNot on fileNOIN HealthcareStart: 05-16-2024 End: 14-68-7520Bupskhkwm beverage intakeEx-drinker (finding)[facility] Healthcare Start: 65-85-1730Ltyzfqo Commentcaffeine intake: rareNOIN HealthcareStart: 97-45-8107OkssiasanUFES HealthcareStart: 97-46-4178NtrXypkxiBRCJ Healthcare Goals DatePatient GoalDesired Activity/StatePersonal health goal Clinical Notes 02-24-2023 to 03-01-2025 Note Date & GjijBnncUunsyecy00-47-5241 History of Present illness Narrative* LIZA Zaldivar [...] nursing note reviewed. Exam conducted with a content strategy lead present. Vitals: Estimated body mass index is 31.71 kg/m as calculated from the following: Height as of 25: 5' 3 . Weight as of this encounter: 179 lb. BP: 130/78 Patient's last menstrual period was 05/09/2024 (exact date). Assessment/Plan ICD-10-CM 1. Third trimester ([facility]) Z34.93 POCT urinalysis dipstick manually resulted 2. 40 weeks gestation of ([facility]) Z3A.40 Return OB: Patient presents today [...] behalf of: LIZA Zaldivar documented in this encounterHermann Area District HospitalHgxaffcjgp24-58-4660 History of Present illness Narrative* LIZA Zaldivar [...] trimester ([facility]) Z34.93 2. 39 weeks gestation of ([facility]) Z3A.39 POCT urinalysis dipstick manually [...] Date WISDOM TOOTH EXTRACTION documented in this encounterHermann Area District HospitalAtwvkrdacy60-01-8921 History of Present illness Narrative* Kera Li, LIBBY - 02/15/2025 8:50 AM EDT Reason for [...] Grandfather Kwan Swiney Thyroid disease Maternal Grandfather Kwna Swiney Breast cancer Paternal Grandmother Gilda Walp [...] nursing note reviewed. Exam conducted with a content strategy lead present. Vitals: Estimated body mass index is 31.53 kg/m as calculated from the following: Height as of 08/10/24: 5' 3 . Weight as of this encounter: 178 lb. BP: 132/86 Patient's last menstrual period was 05/09/2024 (exact date). ASSESSMENT & PLAN ICD-10-CM 1. Third trimester ([facility]) Z34.93 POCT urinalysis dipstick manually resulted 2. 38 weeks gestation of ([facility]) Z3A.38 Return OB: Patient presents today [...] of: Kera Li NP documented in this encounterHermann Area District HospitalGtyuxeinbd37-40-8757 History of Present illness Narrative* Kera Li [...] nursing note reviewed. Exam conducted with a content strategy lead present. Vitals: Estimated body mass index is 29.98 kg/m as calculated from the following: Height as of 08/10/24: 5' 3 . Weight as of 01/29/25: 169 lb 4 oz. BP: Patient's last menstrual period was 05/09/2024 (exact date). ASSESSMENT & PLAN ICD-10-CM 1. Third trimester ([facility]) Z34.93 POCT urinalysis dipstick manually resulted 2. 37 weeks gestation of ([facility]) Z3A.37 Return OB: Patient presents today [...] of: Kera Li NP documented in this encounterHermann Area District HospitalYsjsjmgwnm06-22-7099 History of Present illness Narrative* Kera Li [...] nursing note reviewed. Exam conducted with a content strategy lead present. Vitals: Estimated body mass index is 29.98 kg/m as calculated from the following: Height as of 08/10/24: 5' 3 . Weight as of this encounter: 169 lb 4 oz. BP: 128/86 Patient's last menstrual period was 05/09/2024 (exact date). ASSESSMENT & PLAN ICD-10-CM 1. Third trimester ([facility]) Z34.93 POCT urinalysis dipstick manually resulted CULTURE, GROUP B STREP WITH SUSCEPTIBLITY CULTURE, GROUP B STREP WITH SUSCEPTIBLITY 2. 36 weeks gestation of ([facility]) Z3A.36 Return OB: Patient presents today [...] of: José Lozano DO documented in this encounterHermann Area District HospitalEkbrkcbihr43-12-1194 History of Present illness Narrative* Teresa Ambriz [...] Grandmother Broderickn Walp Lung cancer Paternal Grandmother Gilda Walp [...] nursing note reviewed. Exam conducted with a content strategy lead present. Vitals: Estimated body mass index is 29.85 kg/m as calculated from the following: Height as of 08/10/24: 5' 3 . Weight as of this encounter: 168 lb 8 oz. BP: 132/72 Patient's last menstrual period was 05/09/2024 (exact date). ASSESSMENT & PLAN ICD-10-CM 1. Third trimester ([facility]) Z34.93 POCT urinalysis dipstick manually resulted 2. 34 weeks gestation of ([facility]) Z3A.34 Patient presents today for a [...] of: Kera Li NP documented in this encounterHermann Area District HospitalKpgbntxdnx02-71-6242 History of Present illness Narrative* Zita Borrego [...] nursing note reviewed. Exam conducted with a content strategy lead present. Vitals: Estimated body mass index is 28.96 kg/m as calculated from the following: Height as of 08/10/24: 5' 3 . Weight as of this encounter: 163 lb 8 oz. BP: 120/76 Patient's last menstrual period was 05/09/2024 (exact date). ASSESSMENT & PLAN ICD-10-CM 1. Third trimester ([facility]) Z34.93 POCT urinalysis dipstick manually resulted 2. 32 weeks gestation of ([facility]) Z3A.32 Return OB: Patient presents today [...] of: José Lozano DO documented in this encounterHermann Area District HospitalCnfquoelgm24-67-2498 History of Present illness Narrative* LIZA Zaldivar [...] Name Age of Onset Hypothyroidism Mother Esmer Sanhces Polycystic ovary syndrome Mother Esmer Sanches Thyroid [...] PLAN ICD-10-CM 1. 30 weeks gestation of ([facility]) Z3A.30 POCT urinalysis dipstick manually resulted 2. Third trimester ([facility]) Z34.93 POCT urinalysis dipstick manually [...] behalf of: LIZA Zaldivar documented in this encounterHermann Area District HospitalKpmebrxffn35-69-1896 History of Present illness Narrative* Zita Borrego LPN - 12/05/2024 9:00 AM EDT Reason for [...] nursing note reviewed. Exam conducted with a content strategy lead present. Vitals: Estimated body mass index is 28.52 kg/m as calculated from the following: Height as of 08/10/24: 5' 3 . Weight as of this encounter: 161 lb. BP: 120/76 Patient's last menstrual period was 05/09/2024 (exact date). ASSESSMENT & PLAN ICD-10-CM 1. Third trimester ([facility]) Z34.93 CANCELED: POCT urinalysis dipstick manually resulted 2. 28 weeks gestation of ([facility]) Z3A.28 3. 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 size inconsistent with dates ([facility]) O26.849 US OB follow up transabdominal [...] of: José Lozano DO documented in this encounterHermann Area District HospitalYlstiufwem88-90-8452 History of Present illness Narrative* LIZA Zaldivar [...] ICD-10-CM 1. 26 weeks gestation of ([facility]) Z3A.26 POCT urinalysis dipstick manually resulted 2. Second trimester ([facility]) Z34.92 POCT urinalysis dipstick manually resulted [...] behalf of: LIZA Zaldivar documented in this encounterHermann Area District HospitalAzjoegrgmz38-88-6265 History of Present illness Narrative* Azeb Gonzalez [...] ASSESSMENT & PLAN ICD-10-CM 1. Second trimester ([facility]) Z34.92 POCT urinalysis dipstick manually resulted 2. 22 weeks gestation of ([facility]) Z3A.22 3. Diabetes mellitus screening Z13.1 [...] for routine OB appointment. Documented by Azeb Gonzalze MA on behalf of: José Lozano DO documented in this encounterHermann Area District HospitalTmblkckjov11-57-7603 History of Present illness Narrative* Zita Borrego [...] nursing note reviewed. Exam conducted with a content strategy lead present. Vitals: Estimated body mass index is [...] of: José Lozano DO documented in this encounterHermann Area District HospitalMfmtgbxvcp95-66-3778 History of Present illness Narrative* Domenica Jacinto [...] and concerns were answered. Patient was given Miller labs to be completed with Hgb A1C. Follow Up: Patient is to return in 4 weeks for routine OB appointment. Follow Up: Patient is to have labs drawn at directed and return to office for initial OB appointment with provider. Patient may call office as needed with any concerns or questions. Nurse Visit Completed by: Domenica Jacinto LPN documented in this encounterHermann Area District HospitalZpuukbrtwr31-21-4452 History of Present illness Narrative* Jennifer Ayala RN - 07/11/2024 9:30 AM EST Name: Alondra Beaver Date/Time of Service:07/11/2024 10:03 AM :1995 Age: 28 y.o. Chief Complaint Chief Complaint Patient presents with Initial Visit Nurse Visit Aolndra Beaver is a 28 y.o. at 9w0d [...] RN 07/11/2024 10:03 AM documented in this encounterHermann Area District HospitalMpjslwafhp63-54-6678 History of Present illness Narrative* Madeleine Bundy MD - 05/16/2024 12:30 PM EST Images from the original note were not included. Madeleine Bundy MD Obstetrics and Gynecology Patient: Alondra Beaver : 1995 (28 y.o.) Exam Date: 05/16/2024 Reason for Visit - Chief Complaint Patient presents with Follow-up Follow up for Amenorrhea, missed menses, and family planning. Stopped EluRyng in 10/2023. [employer] 04/03 LMP 05/09 Ovulatory 04/30 Patient did [...] Behavior: Behavior normal. Exam conducted with a content strategy lead present. Assessment/Plan ICD-10-CM 1. Amenorrhea N91.2 2. [...] by Madeleine Bundy MD documented in this encounterHermann Area District HospitalNssuytbnjm85-96-6700 Instructions* Patient Instructions* Madeleine Bundy MD - [...] a routine infertility test. documented in this encounterHermann Area District HospitalSkknxkktbo70-79-1711 History of Present illness Narrative* Madeleine Bundy [...] exam performed. Results can be found in [employer] in 7 days Return 1 year Electronically signed by Madeleine Bundy MD documented in this encounterHermann Area District HospitalMiufkgqcxi74-78-2316 Evaluation note* Encounter Date Diagnosis Assessment Notes [...] and trigger point injections can be done. [employer] Other 10-18-2023 Evaluation note* Encounter Date Diagnosis Assessment Notes Treatment Notes Treatment Clinical Notes Feb, Encounter to establish care (ICD -10 - Z76.89) Patient appears to be in good health upon examination. She is here to establish care for annual physcial for her employment. 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 Feb,Wellness examination (ICD-10 - Z00.00) Personalized [...] Stress test ordered to rule out abnormalities. [employer] Other Evaluation noteNo assessment information available [facility] Work Phone: Evaluation note* Diagnosis [...] Date Medical History Left elbow dislocation 2011 [employer] Other Summary Purpose Family History No Family History Records FoundNo Family History Records FoundNo Family History Records FoundNo Family History Records FoundNo Family History Records Found Advance Directives No Advanced Directives Records FoundNo Advanced Directives Records FoundNo Advanced Directives Records FoundNo Advanced Directives Records FoundNo Advanced Directives Records Found Additional Source Comments INFORMATION SOURCE (unrecogn ized section and content) DATE CREATED AUTHOR 07/30/2021 [facility] DATE CREATED AUTHOR AUTHOR'S ORGANIZ ATION 05/24/2023 [facility] DATE CREATED AUTHOR AUTHOR'S ORGANIZ ATION 02/20/2024 [facility] DATE CREATED AUTHOR AUTHOR'S ORGANIZ ATION 03/02/2025 [facility] DATE CREATED AUTHOR AUTHOR'S ORGANIZ ATION 03/21/2025 [facility] REASON FOR VISIT (unrecogniz ed section and content) ReasonCommentsGynecologic ExamReasonCommentsFollow-upReasonCommentsInitial VisitNurse VisitReasonCommentsAmenorrheaReasonCommentsRoutine Visit Care Teams (unrecognized sec tion and content) Team Status: Inactive Member Role Status Dates Lisandro Buitrago DO Attending Provider Active Team MemberRelationshipSpecialtyStart DateEnd Date Unallocated, Torrey Horn MD [address] [place] [address] PCP - [facility]06/23/23Team MemberRelationshipSpecialtyStart DateEnd Date Unallocated, Torrey Horn MD [address] [place], [place] [address] [address] PCP - [facility]06/23/23Team MemberRelationshipSpecialtyStart DateEnd Date Unallocated, Torrey Horn MD [address] [place] [address] [place] [address] PCP [facility]06/23/23Team MemberRelationshipSpecialtyStart DateEnd Date Unallocated, Torrey Horn MD [facility] [address] [facility] [place] [address] PCP - [facility] Medicine06/23/23Te MemberRelationshipSpecialtyStart DateEnd Date Unallocated, Noms ProviderMD [facility] [address] [facility] [place] [address] PCP - [facility]06/23/23Team MemberRelationshipSpecialtyStart DateEnd Date Unallocated, Noms MD Justina [facility] [address] [facility] [place] [address] PCP - [facility]06/23/23Te MemberRelationshipSpecialtyStart DateEnd Date Unallocated, Noms MD Justina [facility] [address] [facility] [place] [address] PCP - [facility]06/23/23Te MemberRelationshipSpecialtyStart DateEnd Date Unallocated, Noms MD Justina [address] [place], [place] [address] [address] PCP - [facility]06/23/23Te MemberRelationshipSpecialtyStart DateEnd Date Unallocated, Noms MD Justina [address] [place], [place] [address] [address] PCP - [facility]06/23/23Te MemberRelationshipSpecialtyStart DateEnd Date Unallocated, Noms MD Justina [facility] [place] [address] PCP - [facility]06/23/23Te MemberRelationshipSpecialtyStart DateEnd Date Unallocated, Noms MD Justina [facility] [place] [address] PCP - [facility]06/23/23Team MemberRelationshipSpecialtyStart DateEnd Date Unallocated, Noms ProviderMD [address] [facility] [address] PCP - [facility]06/23/23Te MemberRelationshipSpecialtyStart DateEnd Date Unallocated, Anthonys MD Justina [address] [place] [address] PCP - [facility]06/23/23Team MemberRelationshipSpecialtyStart DateEnd Date Unallocated, Torrey Horn MD [address] [facility] [place] [address] PCP - [facility]06/23/23 Goals (unrecognized section and content) Goals [...] BE BASED ON THE PRIMARY CLINICAL RECORDS. [facility] [employer] [facility]. provides no warranty or guarantee of the accuracy or completeness of information in this document.
== END 2025-04-09 14:23 | disposition home or self-care (01) ==
PROVIDERS: PCP Family Medicine; Visit Provider Obstetrics & Gynecology
DX: Z39.1 Encounter for care and examination of lactating mother (principal)